=== PATIENT | male | born 1965 | race Two or more races ===

== ENCOUNTER 2020-04-26 12:15 | Outpatient (REF) | payer MEDICAID, SELFPAY ==
--- NOTE | 2020-04-26 12:23 | XR_ITS ---
EXAMINATION: XR HIP, RIGHT CLINICAL INFORMATION: Pain right hip. COMPARISON: None TECHNIQUE: Two views of the right hip. FINDINGS: There is loss of right hip joint space with lateral acetabular periarticular spurring. No visible fracture, dislocation or bony erosive changes. There is soft tissue calcification adjacent to lateral acetabulum. IMPRESSION: Soft tissue calcification adjacent to lateral acetabulum with mild lateral acetabular spurring. No visible acute fracture or dislocation seen.
== END 2020-04-26 12:16 | disposition home or self-care (01) ==
LOC: HO.XRAY 12:15
PROVIDERS: PCP Nurse Practitioner Family; Visit Provider Registered Nurse
DX: M25.551 Pain in right hip (principal)
CPT/HCPCS: 73502

== ENCOUNTER → 2020-05-26 14:51 | Outpatient (BNVA) | payer MEDICAID, SELFPAY | PROVIDERS: PCP Nurse Practitioner Family; Referring Provider Nurse Practitioner Family; Visit Provider Internal Medicine | DX: Z76.89 Persons encountering health services in other specified circumstances (principal) ==

== ENCOUNTER → 2020-07-08 13:34 | Outpatient (BNVA) | payer MEDICAID, SELFPAY | PROVIDERS: Visit Provider Orthopaedic Surgery | DX: S76.319A Strain of muscle, fascia and tendon of the posterior muscle group at thigh level, unspecified thigh, initial encounter (principal) | CPT/HCPCS: 99202 ==

== ENCOUNTER → 2020-07-19 15:15 | Outpatient (BNVA) | payer MEDICAID, SELFPAY | PROVIDERS: PCP Nurse Practitioner Family; Visit Provider Internal Medicine Gastroenterology | DX: Z76.89 Persons encountering health services in other specified circumstances (principal) ==

== ENCOUNTER 2020-08-02 12:33 | Outpatient (REF) | payer MEDICAID, SELFPAY | END 2020-08-02 12:34 | disposition home or self-care (01) | LOC: HO.LAB 12:33 | PROVIDERS: Visit Provider Internal Medicine | DX: Z20.822 Contact with and (suspected) exposure to COVID-19 (principal) | CPT/HCPCS: 36415; C9803; U0003 ==

== ENCOUNTER 2020-08-19 08:23 | Outpatient (REF) | payer MEDICAID, SELFPAY ==
--- NOTE | ~2020-08-19 | US_ITS ---
EXAMINATION: US COMPLETE ABDOMEN WITH LIVER ELASTOGRAPHY CLINICAL INFORMATION: K75.81 - Nonalcoholic steatohepatitis (SALGUERO) COMPARISON: Ultrasound abdomen 05/19/2019 TECHNIQUE: Real-time imaging of the abdominal viscera. Noninvasive ultrasound liver fibrosis assessment is performed using Hyacinth ElastPQ point quantification shear wave elastography (pSWE) with a C5-2 MHz transducer. Multiple elastography samples are obtained. FINDINGS: PANCREAS: The visualized pancreas is normal in size and contour and echogenicity. There is no pancreatic ductal distention. The mid and distal pancreatic body and tail are partly obscured by bowel gas and not completely imaged. ABDOMINAL AORTA: The visualized abdominal aorta is unremarkable. Mid aorta is obscured by bowel gas and not completely imaged. INFERIOR VENA CAVA: Visualized portions are normal. LIVER: The liver is normal in size and smooth in contour. There is increased hepatic parenchymal echogenicity consistent with hepatic steatosis. There is no intrahepatic ductal dilatation. Again, there is a hypoechoic lesion dome liver between left and right lobe under 2 cm, similar to prior ultrasound and also noted on prior CT studies. The right lobe measures 16.4 cm in length. The left lobe measures 13.6 cm in length. Portal flow is towards the liver (hepatopetal). Shear wave liver elastography median stiffness is 2.38 m/s (reference: normal median stiffness is 1.3 m/s or less). IQR/median stiffness to assess sampling precision is 0.33 (reference: good quality data set is IQR/median stiffness of 0.15 or less). GALLBLADDER: Normal. The gallbladder is physiologically distended without evidence of stones, sludge, polyps, wall thickening or pericholecystic fluid. COMMON BILE DUCT: Normal in caliber measuring 0.4 cm in diameter. RIGHT KIDNEY: Normal. No hydronephrosis. No renal calculi. The kidney measures 13.1 cm in maximum dimension. There is small upper pole cyst under 1 cm. LEFT KIDNEY: Normal. No hydronephrosis. No renal calculi or focal parenchymal lesions. The kidney measures 11.1 cm in maximum dimension. SPLEEN: Normal. The spleen measures 10.2 cm in maximum dimension. FREE FLUID: None. US/US abdomen comp w elastography IMPRESSION: 1. Hepatic steatosis. Chronic hypoechoic lesion dome between left and right lobe. 2. Liver elastography: Although measurements appear consistent with compensated advanced chronic liver disease, there is statistical variability of the sampling which decreases accuracy. 3. No cholelithiasis or ductal dilatation. REFERENCE: Society of Radiologists in Ultrasound Liver Stiffness Thresholds (2020): LIVER STIFFNESS THRESHOLDS: *Liver Stiffness equal or less than 1.3 m/s: High probability of being normal. *Liver Stiffness less than 1.7 m/s: In the absence of other known clinical signs, rules out compensated advanced chronic liver disease. *Liver Stiffness 1.7-2.1 m/s: Suggestive of compensated advanced chronic liver disease but need further test for confirmation. *Liver Stiffness over 2.1 m/s: Rules in compensated advanced chronic liver disease. *Liver Stiffness over 2.4 m/s: Suggestive of clinically significant portal hypertension. QUALITY OF DATA SET: *IQR/Median value equal or less than 0.15 implies a quality data set. *IQR/Median value over 0.15 implies a poor quality data set. SIGNIFICANT CHANGE FROM PRIOR EXAM: Significant change if liver stiffness measurement is 10% or greater from prior exam. OTHER CONSIDERATIONS: The stage of liver fibrosis may be overestimated in the setting of acute hepatitis, liver inflammation, elevated liver function tests, hepatic vascular congestion, obstructive cholestasis, non-fasting state, and infiltrative diseases such as amyloidosis and lymphoma. In some patients with NAFLD, the liver stiffness thresholds for compensated advanced chronic liver disease may be lower. In causes other than viral hepatitis and NAFLD, liver stiffness thresholds are not well established.
== END 2020-08-19 08:24 | disposition home or self-care (01) ==
LOC: HO.US 08:23
PROVIDERS: Visit Provider Internal Medicine Gastroenterology
DX: R10.11 Right upper quadrant pain (principal); K75.81 Nonalcoholic steatohepatitis (NASH); R68.81 Early satiety
CPT/HCPCS: 76705; 76981

== ENCOUNTER → 2020-09-06 13:22 | Outpatient (BNVA) | payer MEDICAID, SELFPAY | PROVIDERS: PCP Nurse Practitioner Family; Visit Provider Internal Medicine Gastroenterology ==

== ENCOUNTER → 2020-10-05 10:01 | Outpatient (BNVA) | payer MEDICAID, SELFPAY | PROVIDERS: PCP Nurse Practitioner Family; Visit Provider Internal Medicine ==

== ENCOUNTER → 2020-10-26 14:41 | Outpatient (BNVA) | payer MEDICAID, SELFPAY | PROVIDERS: PCP Nurse Practitioner Family; Visit Provider Internal Medicine Gastroenterology ==

== ENCOUNTER → 2021-01-21 10:32 | Outpatient (BNVA) | payer MEDICAID, SELFPAY | PROVIDERS: Visit Provider Internal Medicine Gastroenterology ==

== ENCOUNTER → 2021-02-01 10:42 | Outpatient (BNVA) | payer MEDICAID, SELFPAY | PROVIDERS: Visit Provider Internal Medicine Gastroenterology | DX: R10.11 Right upper quadrant pain (principal); R68.81 Early satiety | CPT/HCPCS: 99212 ==

== ENCOUNTER → 2021-02-11 08:19 | Outpatient (REF) | payer MEDICAID, SELFPAY ==
--- NOTE | ~2021-02-11 | NM_ITS ---
EXAMINATION: RADIONUCLIDE SOLID FOOD GASTRIC EMPTYING 4-HOUR STUDY CLINICAL INFORMATION: Early satiety. COMPARISON: No previous gastric emptying study is available for comparison. TECHNIQUE: A standard meal consisting of 4 oz of Egg Beaters brand tagged with 900 microcuries Tc-99m Sulfur Colloid, 8 oz water and 2 slices of toast with jelly was administered orally to the patient. Images were obtained using a dual head gamma camera in the anterior and posterior projections over of the stomach immediately post ingestion and at hourly intervals up to 3 hours post ingestion. Images were not obtained at 4 hours due to the minimal retention at 3 hours. The anterior and posterior counts at each time interval were averaged using the geometric mean and expressed as percentage of the immediate post ingestion counts. FINDINGS: There is good visualization of activity in the stomach immediately post ingestion. As the study progresses, there is good clearance of activity from the stomach and visualization of progressively increasing small bowel activity. By the end of the study, there is almost no retention noted in the stomach. Retention in the stomach at each time interval was: 1 hour 44% (normal 37%-90%) 2 hours 18% (normal 30%-60%) 3 hours 6% 4 hours (Not Obtained) (normal 0%-10%) NM/NM gastric emptying study IMPRESSION: Normal solid food gastric emptying study.
== END ==
LOC: HO.NUCMED 08:19
PROVIDERS: Visit Provider Internal Medicine Gastroenterology
DX: R10.11 Right upper quadrant pain (principal); K75.81 Nonalcoholic steatohepatitis (NASH); R68.81 Early satiety
CPT/HCPCS: 78264; A9541

== ENCOUNTER → 2021-03-16 14:59 | Outpatient (BNVA) | payer MEDICAID, SELFPAY | PROVIDERS: Visit Provider Internal Medicine | DX: I25.10 Atherosclerotic heart disease of native coronary artery without angina pectoris (principal); I10 Essential (primary) hypertension; E11.9 Type 2 diabetes mellitus without complications; E78.5 Hyperlipidemia, unspecified; Z72.0 Tobacco use; Z88.8 Allergy status to other drugs, medicaments and biological substances; Z79.4 Long term (current) use of insulin; Z79.899 Other long term (current) drug therapy | CPT/HCPCS: 93005; 99212 ==

== ENCOUNTER 2021-03-17 08:40 | Day surgery (SDC) | payer MEDICAID, SELFPAY ==
--- NOTE | 2021-03-16 10:05 | HO.ANESPROP2 ---
Documented by User: Maame Ames NP 03/29/21 11:06 HPI - Anesthesia Eval Consult details Narrative: 55yo M for Upper Endoscopy and Colonoscopy Stable at routine cardiac visit 09/2020. (W/U for CP 11/2019) [facility] Active Problems Active Problems: All Active Problems (Updated 11/01/20 @ 12:01 by Azul Stubbs RN) Palpitations (Acute) Early satiety (Acute) Nonalcoholic steatohepatitis (SALGUERO) (Acute) RUQ pain (Acute) Atherosclerotic cardiovascular disease (Acute) Past Medical History Medical History Arthritis Atherosclerotic cardiovascular disease Depression Essential hypertension Fatty liver Fibromyalgia Hyperlipidemia, unspecified SALGUERO (nonalcoholic steatohepatitis) Palpitations Type 2 diabetes mellitus with unspecified complications Family History Family History Father Diabetes Mother No problems noted. Surgical History Surgical History History of ankle surgery History of colonoscopy Hx of endoscopy Social History Social History (Updated 03/16/21 @ 15:12 by GUNNER Narayan) Household Members: Spouse Alcohol intake: current Alcohol intake frequency: a few times a month Patient Tobacco Use Status: Current someday Tobacco user Current occupational status: employed Current occupation: [employer] Meds Allergies Allergy/AdvReac Type Severity Reaction Status Date / Time atorvastatin [ATORVASTATIN] AdvReac Unknown HIGH LIVER Verified 03/17/21 09:07 ENZYMES, high liver count Home Medications Medication Instructions Recorded Confirmed Last Taken Type amlodipine 5 mg tablet (Norvasc) 5 mg PO DAILY 05/26/20 03/16/21 Unknown History cholecalciferol (vitamin D3) 50 50 mcg PO DAILY 05/26/20 03/16/21 Unknown History mcg (2,000 unit) capsule insulin degludec 100 unit/mL (3 30 unit SUBCUT DAILY ml 05/26/20 03/16/21 Unknown History mL) subcutaneous pen (Tresiba FlexTouch U-100 insulin) insulin lispro 100 unit/mL 20 unit SUBCUT TID ml 05/26/20 03/16/21 Unknown History subcutaneous pen (Humalog KwikPen (U-100) Insulin) Exam Exam Date and Time: March 16, 2021 1005 Narrative Narrative: Echocardiogram 2020?with normal LVEF, 55-60%; mildly elevated aortic valve gradients but no significant stenosis.? In the?exercise stress test 2019,?he was able to perform up to 7.8 Mets on the Lamont protocol without any EKG evidence of ischemia.? Echocardiographic portion showed lack of systolic thickening of basal inferior septal and basal inferior mesa in some views.? Coronary CTA 2020The LAD had scattered calcifications.? At, the proximal LAD, mild mixed plaque.? Just after the D2 takeoff there is mixed plaque in LAD causing 50% narrowing.? Circumflex had scattered calcifications.? Midportion had prominent calcification.? ? Cannot exclude high-grade stenosis in that area. Vessel relatively small.? Right coronary artery had mild calcification.? Total coronary artery calcium score 186. Holter monitor?essentially unremarkable. RADHA?without any arrhythmias. ? Assessment and Plan Assessment Anesthesia Assessment: Chart Reviewed Documented by User: Jason Schulte MD 03/29/21 17:00 [facility] Past Medical History Medical History Arthritis Atherosclerotic cardiovascular disease Depression Essential hypertension Fatty liver Fibromyalgia Hyperlipidemia, unspecified SALGUERO (nonalcoholic steatohepatitis) Palpitations Type 2 diabetes mellitus with unspecified complications Family History Family History Father Diabetes Mother No problems noted. Family history of problems with anesthesia: No Surgical History Surgical History History of ankle surgery History of colonoscopy Hx of endoscopy History of Problems with Anesthesia: No Social History Social History (Updated 03/16/21 @ 15:12 by GUNNER Narayan) Household Members: Spouse Alcohol intake: current Alcohol intake frequency: a few times a month Patient Tobacco Use Status: Current someday Tobacco user Current occupational status: employed Current occupation: [employer] Meds Allergies Allergy/AdvReac Type Severity Reaction Status Date / Time atorvastatin [ATORVASTATIN] AdvReac Unknown HIGH LIVER Verified 03/17/21 09:07 ENZYMES, high liver count Home Medications Medication Instructions Recorded Confirmed Last Taken Type amlodipine 5 mg tablet (Norvasc) 5 mg PO DAILY 05/26/20 03/16/21 Unknown History cholecalciferol (vitamin D3) 50 50 mcg PO DAILY 05/26/20 03/16/21 Unknown History mcg (2,000 unit) capsule insulin degludec 100 unit/mL (3 30 unit SUBCUT DAILY ml 05/26/20 03/16/21 Unknown History mL) subcutaneous pen (Tresiba FlexTouch U-100 insulin) insulin lispro 100 unit/mL 20 unit SUBCUT TID ml 05/26/20 03/16/21 Unknown History subcutaneous pen (Humalog KwikPen (U-100) Insulin) Assessment and Plan Assessment Anesthesia Assessment: Anesthesia Plan Discussed Final Anesthetic Review Family History of Problems with Anesthesia: No History of Problems with Anesthesia: No NPO: Yes ASA Class: III Final Preanesthetic Review: No Changes in Pt Med Stat, Meds/Allgs Chart Reviewed, Consent Obtained/Reviewed and Anes Risks/Benef Reviewed Patient Risk: Intermediate Procedure Risk: Low Anesthetic Plan Anesthetic Plan: MAC: Disposition: Standard PACU
--- NOTE | 2021-03-17 09:19 | MHC.SHP ---
Pre-Procedural Eval Section A Date of Service: 03/17/21 Section B Chief Complaint: Rectal Bleeding Details of Present Illness: hx of esophagitis, to check for healing and r/o barretts Relevant Family History (Specify if Yes): No Relevant Social History: None Present Medications: see Short Stay Collaborative assessment Medical History: Significant History (Arthritis Atherosclerotic cardiovascular disease Depression Essential hypertension Fatty liver Fibromyalgia Hyperlipidemia, unspecified SALGUERO (nonalcoholic steatohepatitis) Palpitations Type 2 diabetes mellitus with unspecified complications) History of Previous Operations: Relevant previous surgery/procedure and date(s) Allergies: Allergies Allergy/AdvReac Type Severity Reaction Status Date / Time atorvastatin [ATORVASTATIN] AdvReac Unknown HIGH LIVER Verified 03/17/21 09:07 ENZYMES, high liver count Review of Systems Sugical H&P ROS: Negative: Constitution, Cardiovascular, Respiratory, Neurological, Psychiatric, Hem-Onc, Allergic/Immunologic, Gastrointestinal, Genitourinary, Musculoskeletal, Integumentary, Endocrine and Eyes/Ears/Nose/Throat Exam Surgical H&P Exam: Normal: HEENT, Normal: Heart, Normal: Lungs, Normal: Extremities, Normal: Abdomen, Normal: Skin and Normal: Neurological Plan Diagnosis/Plan: Unchanged I have reviewed the history and physical and performed a pertinent physical examination on my patient. No changes have occurred unless specified. EGD and colonoscopy
[2021-03-17 09:32] VITALS: BP 157/90; PULSE 99; RESP 18; TEMP 36.2; O2SAT 98; BMI 29.2
[2021-03-17 09:32] LABS: Glucose, Whole Blood 215 mg/dL (60-115)
[2021-03-17] MEDS: Lactated Ringers 1,000 ML 100 ML IVCONT (09:46)
--- NOTE | 2021-03-17 10:20 | P.BOP_ITS ---
Brief Operative Note Date of Service: 03/17/21 Pre-op diagnosis: hx of esophagitis, rectal bleeding Post-op diagnosis: same Procedure: see op note Surgeon: Harry Garcia MD Anesthesia: MAC Was an Informatics Manager used for this Procedure?: No Estimated blood loss (mL): 15 Condition: stable Disposition: PACU
--- NOTE | 2021-03-17 10:20 | P.OP_ITS ---
Operative Note Operative Note Date of Service: 03/17/21 Narrative: Operative Information Procedure Description: EGD, Colonoscopy FLEXIBLE TRANSORAL UPPER GASTROINTESTINAL ENDOSCOPY AND COLONOSCOPY PROCEDURE NOTE UPPER ENDOSCOPY Consent: Indications for the procedure and potential complications of bleeding, perforation, reaction to medications and missed diagnosis were discussed with the patient and informed consent was obtained. Instrument: Olympus GIF H 190 J mid size upper endoscope Monitoring: Vital signs and clinical assessment, continuous EKG monitoring, Pulse oximetry, Carbon Dioxide monitoring and blood pressure monitoring were done throughout the procedure. Procedure: The patient was placed in the left lateral decubitis position and pre-procedure medications were administered and a bite block was placed. The endoscope was inserted into the mouth and advanced under direct vision to the third part of duodenum. A careful inspection was made as the upper endoscope was withdrawn including a retroflexed examination of the proximal stomach; Findings and interventions are described below. Findings: Larynx:normal Esophagus: GE junction at 40 cm, diaphragm hiatus at 40 cm, LA grade D erosive esophagitis, nodular area noted at distal esophagus about 7-8 mm, removed with cold snare and 2 clips applied for hemostasis. Stomach: PAtchy erythema. Biopsies were obtained. Grade 2 flap valve on retroflexed examination of the cardia. Duodenum: Normal bulb and descending duodenum, Intervention: Biopsies as noted above, cold snare After the colonoscopy below, the EGD was repeated, there was still bleeding from the snare site so hemospray used with cessation of bleeding. COLONOSCOPY Instrument: Olympus variable stiffness pediatric scope 190L Colonoscopy Monitoring: Vital signs and clinical assessment, continuous EKG monitoring, Pulse oximetry, Carbon Dioxide monitoring and blood pressure monitoring were done throughout the procedure. Colon withdrawal time was 6 minutes. Procedure: The patient was placed in the left lateral decubitis position and pre-procedure medications were administered. After a digital rectal examination of the ano-rectum, the video colonoscope was inserted into the rectum and advanced through the colon to the cecum/TI. The colonoscope was slowly withdrawn in a retrograde panoramic fashion and the colon mucosa was carefully examined including a retroflexed view of the rectum. Findings and interventions are described below. Procedure Difficulty: easy Findings: Terminal Ileum-normal Cecum:normal Ascending Colon: normal Transverse Colon -normal Descending Colon: 6-8 mm sessile polyp removed with forceps Sigmoid Colon: normal Rectum: Retroflexion with moderate sized inflammed internal hemorrhoids, grade I Anorectum - normal Colon preparation: [place] Bowel Preparation Scale Right colon; 2 Transverse colon: 2 Left colon; 2 (0 = Unprepared colon segment with mucosa not seen due to solid stool that cannot be cleared. 1 = Portion of mucosa of the colon segment seen, but other areas of the colon segment not well seen due to staining, residual stool and/or opaque liquid. 2 = Minor amount of residual staining, small fragments of stool and/or opaque liquid, but mucosa of colon segment seen well. 3 = Entire mucosa of colon segment seen well with no residual staining, small fragments of stool or opaque liquid) Impression and Post Procedure Diagnosis: Endoscopy Findings: erosive esophagitis nodular lesion distal esophagus gastritis Colonoscopy Findings: polyp internal hemorrhoids Plan: Await Pathology results Repeat Colonoscopy in 5-7 years if adenoma, 10 yrs if hyperplastic or earlier if clinically indicated High fiber diet leaflet avoid straining at stool, epsom salts and sitz bath, anusol supps or cream check compliance with PPI may need repeat EGD in 3-6 months to assess for healing Above findings were reviewed with the patient and relevant handouts were provided if indicated.
[2021-03-17 10:58] VITALS: BP 101/65; PULSE 89; RESP 18; TEMP 36.9; O2SAT 98
[2021-03-17 11:13] VITALS: BP 112/79; PULSE 89; RESP 16; O2SAT 97
[2021-03-17 11:16] VITALS: BP 150/102; PULSE 75; RESP 18; O2SAT 97
[2021-03-17 11:28] VITALS: BP 144/77; PULSE 76; RESP 16; O2SAT 97
[2021-03-17 11:43] VITALS: BP 159/91; PULSE 77; RESP 16; TEMP 36.4; O2SAT 97
== END 2021-03-17 12:40 ==
LOC: HO.SSS 08:41
PROVIDERS: Visit Provider Internal Medicine Gastroenterology
PROC: (CPT 45380; principal; 2021-03-17 10:20)
DX: K62.5 Hemorrhage of anus and rectum (principal); D12.4 Benign neoplasm of descending colon; K64.0 First degree hemorrhoids; K29.50 Unspecified chronic gastritis without bleeding; D13.0 Benign neoplasm of esophagus; K20.80 Other esophagitis without bleeding; K44.9 Diaphragmatic hernia without obstruction or gangrene; K75.81 Nonalcoholic steatohepatitis (NASH); K76.0 Fatty (change of) liver, not elsewhere classified; I10 Essential (primary) hypertension; E11.9 Type 2 diabetes mellitus without complications; Z79.4 Long term (current) use of insulin; Z79.899 Other long term (current) drug therapy; Z79.82 Long term (current) use of aspirin; Z88.8 Allergy status to other drugs, medicaments and biological substances; F17.200 Nicotine dependence, unspecified, uncomplicated
CPT/HCPCS: 45380; 43251; 43239; 82947; 88305; 88342

== ENCOUNTER 2021-04-05 12:41 | Outpatient (REF) | payer MEDICAID, SELFPAY ==
[2021-04-05 13:13] LABS: Basophils Percent Auto 0.3 % (0-2); Eosinophils Absolute Auto 0.1 X10*3/uL (0.0-0.4); Eosinophils Percent Auto 0.8 % (0-4); Hematocrit 40.4 % (42-52); Hemoglobin 12.8 g/dl (14.0-18.0); Imm Gran Abs Auto 0.04 X10*3/uL (0.00-0.03); Imm Gran Pct Auto 0.3 % (0.0-0.4); Lymphocytes Absolute Auto 1.5 X10*3/uL (1.2-4.9); MANUAL DIFF FLAG NO; Mean Corpuscular HGB Conc 31.7 g/dl (31.0-36.0); Mean Corpuscular Hemoglobin 27.4 pg (27.0-33.0); Mean Corpuscular Volume 86.3 fL (80-98); Mean Platelet Volume 9.6 fL (9.4-12.4); Monocytes Absolute Auto 0.9 X10*3/uL (0.1-1.2); Monocytes Percent Auto 6.9 % (2-11); Neutrophils Absolute Auto 10.7 X10*3/uL (2.0-8.3); Neutrophils Percent Auto 80.7 % (45-73); Platelet Count 294 X10*3/uL (160-400); Red Blood Count 4.68 X10*6/uL (4.60-5.80); White Blood Count 13.2 X10*3/uL (4.8-10.8)
[2021-04-05 13:21] LABS: INTERNATIONAL NORM RATIO 1.4 (0.9-1.1); Prothrombin Time 15.5 SEC (9.9-13.0)
[2021-04-05 13:57] LABS: Alanine Aminotransferase 24 U/L (0-40); Albumin Level 4.2 g/dL (3.5-5.0); Alkaline Phosphatase 203 U/L (39-117); Anion Gap 15 (12-20); Aspartate Amino Transferase 45 U/L (5-37); Bilirubin Total 1.5 mg/dL (0.0-1.0); Blood Urea Nitrogen 14 mg/dL (9-16); Calcium 9.9 mg/dL (8.4-10.2); Carbon Dioxide 23 mmol/L (22-29); Chloride 101 mmol/L (96-108); Estimated Glomerular Filt Rate > 60; Glucose Random 322 mg/dL (60-115); Potassium 4.3 mmol/L (3.3-5.1); Sodium 135 mmol/L (135-145); Total Protein 8.1 g/dL (6.5-8.0)
[2021-04-05 14:17] LABS: Ferritin 426 ng/mL (20-250)
[2021-04-05 14:46] LABS: Appearance Urine CLEAR; Color Urine YELLOW; Glucose Urine UA >=1000 MG/DL (NEG); Leukocyte Esterase Urine NEG (NEG); Nitrite Urine NEG (NEG); Specific Gravity - Urine <= 1.005 (1.005-1.025); Urine Blood NEG (NEG); Urine Ketones NEG (NEG); Urine Protein NEG (NEG-TRACE)
[2021-04-05 14:58] LABS: Bacteria Urine TRACE /LPF; RBC Urine 0-2 /HPF (0); Squamous Epithelial Cell Urine TRACE /LPF
== END 2021-04-05 12:42 | disposition home or self-care (01) ==
LOC: HO.LAB 12:41
PROVIDERS: PCP Nurse Practitioner Family; Visit Provider Internal Medicine Gastroenterology
DX: R10.11 Right upper quadrant pain (principal); K75.81 Nonalcoholic steatohepatitis (NASH)
CPT/HCPCS: 36415; 80053; 81001; 81003; 82728; 85025; 85610; 87086

== ENCOUNTER 2021-04-06 11:46 | Outpatient (REF) | payer MEDICAID, SELFPAY ==
[2021-04-06 13:05] LABS: CDiff Gene PCR NEGATIVE (Negative)
== END 2021-04-06 11:47 | disposition home or self-care (01) ==
LOC: HO.LNP 11:46
PROVIDERS: Visit Provider Internal Medicine Gastroenterology
DX: R10.11 Right upper quadrant pain (principal); K75.81 Nonalcoholic steatohepatitis (NASH)
CPT/HCPCS: 87045; 87046; 87493

== ENCOUNTER 2021-05-06 07:46 | Outpatient (REF) | payer MEDICAID, SELFPAY ==
--- NOTE | ~2021-05-06 | US_ITS ---
EXAMINATION: US COMPLETE ABDOMEN WITH LIVER ELASTOGRAPHY CLINICAL INFORMATION: SALGUERO COMPARISON: Previous exam most recent August [address] of the abdomen and pelvis November 2019 TECHNIQUE: Real-time imaging of the abdominal viscera. Noninvasive ultrasound liver fibrosis assessment is performed using Hyacinth ElastPQ point quantification shear wave elastography (pSWE) with a C5-2 MHz transducer. Multiple elastography samples are obtained. FINDINGS: PANCREAS: Not visualized due to bowel gas ABDOMINAL AORTA: The proximal, middle, and distal aortic segments are normal in caliber. INFERIOR VENA CAVA: Visualized portions are normal. LIVER: Liver echotexture is slightly increased. The liver is normal in size and contour. There is a 2.1 x 1.9 x 1.3 cm hypoechoic lesion in the right lobe of the liver. This is increased in size from previous exams, for example measuring 1.2 x 1.1 x 1.2 cm on August 2020 ultrasound. No intrahepatic biliary duct dilatation. The right lobe measures 16 cm in length. The left lobe measures 12 cm in length. Portal flow is normal/hepatopedal Shear wave liver elastography median stiffness is 1.9 m/s (reference: normal median stiffness is 1.3 m/s or less). IQR/median stiffness to assess sampling precision is 0.14 (reference: good quality data set is IQR/median stiffness of 0.15 or less). GALLBLADDER: Gallbladder is normal in size. There is echogenic debris seen in the gallbladder. No gallstones are seen. The gallbladder wall appears slightly thickened measuring 0.4 cm. COMMON BILE DUCT: Normal in caliber measuring 0.2 cm in diameter. RIGHT KIDNEY: There is a 8 x 9 mm cyst in the upper pole.. No hydronephrosis. No renal calculi . The kidney measures 12 cm in maximum dimension. LEFT KIDNEY: Normal. No hydronephrosis. No renal calculi or focal parenchymal lesions. The kidney measures 12 cm in maximum dimension. SPLEEN: Normal. The spleen measures 11 cm in maximum dimension. FREE FLUID: None. US/US abdomen comp w elastography IMPRESSION: 1. Impression: Echogenic liver suggestive of fatty infiltration. 2.1 x 1.9 x 1.3 cm hypoechoic lesion in the right lobe of the liver. This is increased in size from previous exams. Further characterization with liver MRI should be considered. Slightly thickened gallbladder wall. No gallstone seen. Small right renal cyst. Nonvisualization of the pancreas. 2. Liver elastography: Adequate liver sampling. Elevated liver stiffness suggestive of compensated advanced chronic liver disease but need further test for confirmation. REFERENCE: Society of Radiologists in Ultrasound Liver Stiffness Thresholds (2020): LIVER STIFFNESS THRESHOLDS: *Liver Stiffness equal or less than 1.3 m/s: High probability of being normal. *Liver Stiffness less than 1.7 m/s: In the absence of other known clinical signs, rules out compensated advanced chronic liver disease. *Liver Stiffness 1.7-2.1 m/s: *Liver Stiffness over 2.1 m/s: Rules in compensated advanced chronic liver disease. *Liver Stiffness over 2.4 m/s: Suggestive of clinically significant portal hypertension. QUALITY OF DATA SET: *IQR/Median value equal or less than 0.15 implies a quality data set. *IQR/Median value over 0.15 implies a poor quality data set. SIGNIFICANT CHANGE FROM PRIOR EXAM: Significant change if liver stiffness measurement is 10% or greater from prior exam. OTHER CONSIDERATIONS: The stage of liver fibrosis may be overestimated in the setting of acute hepatitis, liver inflammation, elevated liver function tests, hepatic vascular congestion, obstructive cholestasis, non-fasting state, and infiltrative diseases such as amyloidosis and lymphoma. In some patients with NAFLD, the liver stiffness thresholds for compensated advanced chronic liver disease may be lower. In causes other than viral hepatitis and NAFLD, liver stiffness thresholds are not well established.
[2021-05-06 09:12] LABS: Anion Gap 17 (12-20); Blood Urea Nitrogen 8 mg/dL (9-16); Calcium 9.7 mg/dL (8.4-10.2); Carbon Dioxide 25 mmol/L (22-29); Chloride 102 mmol/L (96-108); Estimated Glomerular Filt Rate > 60; Glucose Random 214 mg/dL (60-115); Potassium 3.9 mmol/L (3.3-5.1); Sodium 140 mmol/L (135-145)
[2021-05-06 10:32] LABS: Creatinine Urine 238.12 mg/dL; Protein/Creatinine Ratio, Ur 0.21 (<0.2); Total Protein Urine Random 51 mg/dL (<12)
== END 2021-05-06 07:47 | disposition home or self-care (01) ==
LOC: HO.US 07:46
PROVIDERS: Absent Provider Internal Medicine Hypertension Specialist; PCP Nurse Practitioner Family; Visit Provider Internal Medicine Gastroenterology
DX: R10.11 Right upper quadrant pain (principal); K75.81 Nonalcoholic steatohepatitis (NASH); I10 Essential (primary) hypertension
CPT/HCPCS: 36415; 76705; 76981; 80048; 84156

== ENCOUNTER 2021-05-26 13:15 | Emergency (ER) | payer MEDICAID, SELFPAY ==
--- NOTE | ~2021-05-26 | US_ITS ---
EXAMINATION: US ABDOMEN LIMITED CLINICAL INFORMATION: Right upper quadrant pain. COMPARISON: Abdominal ultrasound dated from 05/06/2021. TECHNIQUE: Real-time imaging of the gallbladder. FINDINGS: Gallbladder sludge mild gallbladder wall thickening measuring up to 0.4 cm. Negative Chatman's sign. No pericholecystic free fluid. The common bile duct measures 0.3 cm. US/US abdomen limited IMPRESSION: Targeted sonographic evaluation of the gallbladder. Please refer to a recent ultrasound from 05/06/2021 for visualization of indeterminate liver lesions. There is borderline gallbladder wall thickening without significant change. This is indeterminate in the absence of cholelithiasis or pericholecystic inflammatory changes and could be related with hepatocellular disease. If clinical suspicious for acute cholecystitis persists, consider further evaluation with a hepatobiliary nuclear medicine study.
[2021-05-26 14:18] VITALS: BP 124/72; PULSE 79; RESP 18; TEMP 36.7; O2SAT 99; BMI 29.0
[2021-05-26 16:22] LABS: MANUAL DIFF FLAG NO
[2021-05-26 16:24] LABS: Basophils Percent Auto 0.4 % (0-2); Eosinophils Absolute Auto 0.1 X10*3/uL (0.0-0.4); Eosinophils Percent Auto 0.7 % (0-4); Hematocrit 40.1 % (42.0-52.0); Hemoglobin 12.8 g/dl (14.0-18.0); Imm Gran Abs Auto 0.04 X10*3/uL (0.00-0.03); Imm Gran Pct Auto 0.4 % (0.0-0.4); Lymphocytes Absolute Auto 1.6 X10*3/uL (1.2-4.9); Mean Corpuscular HGB Conc 31.9 g/dl (31.0-36.0); Mean Corpuscular Hemoglobin 26.9 pg (27.0-33.0); Mean Corpuscular Volume 84.4 fL (80.0-98.0); Mean Platelet Volume 9.4 fL (9.4-12.4); Monocytes Percent Auto 8.7 % (2-11); Neutrophils Absolute Auto 8.4 x10*3/uL (2.0-8.3); Neutrophils Percent Auto 75.8 % (45-73); Platelet Count 229 X10*3/uL (160-400); Red Blood Count 4.75 X10*6/uL (4.60-5.80); Red Cell Distribution Width 12.5 % (11.0-16.0); White Blood Count 11.1 X10*3/uL (4.8-10.8)
[2021-05-26 16:27] LABS: Appearance Urine CLEAR; Color Urine YELLOW; Glucose Urine UA >=1000 MG/DL (NEG); Leukocyte Esterase Urine NEG (NEG); Nitrite Urine NEG (NEG); Specific Gravity - Urine <= 1.005 (1.005-1.025); Urine Blood NEG (NEG); Urine Ketones NEG (NEG); Urine Protein NEG (NEG-TRACE)
[2021-05-26 16:37] LABS: Bacteria Urine TRACE /LPF; RBC Urine 0 /HPF (0)
[2021-05-26 16:42] LABS: Alanine Aminotransferase 23 U/L (0-40); Albumin Level 4.1 g/dL (3.5-5.0); Alkaline Phosphatase 150 U/L (39-117); Anion Gap 14 (12-20); Aspartate Amino Transferase 27 U/L (5-37); Bilirubin Total 1.5 mg/dL (0.0-1.0); Blood Urea Nitrogen 13 mg/dL (9-16); Calcium 9.6 mg/dL (8.4-10.2); Carbon Dioxide 25 mmol/L (22-29); Chloride 98 mmol/L (96-108); Creatinine Clr Calc Pharmacy 85.4; Estimated Glomerular Filt Rate > 60; Glucose Random 451 mg/dL (60-115); Potassium 4.6 mmol/L (3.3-5.1); Sodium 132 mmol/L (135-145); Total Protein 7.5 g/dL (6.5-8.0)
--- NOTE | 2021-05-26 20:35 | ED_ITS ---
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 States the pain is constant and radiates to his back. No nausea, vomiting or diarrhea. 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 Patient states he drinks 6 beers a day, no belly surgeries. Has not had any fevers. MD elicited complaint: abdominal pain Related Data Home Medications Medication Instructions Recorded Confirmed amlodipine 5 mg tablet (Norvasc) 5 mg PO DAILY 05/26/20 03/16/21 cholecalciferol (vitamin D3) 50 50 mcg PO DAILY 05/26/20 03/16/21 mcg (2,000 unit) capsule insulin degludec 100 unit/mL (3 30 unit SUBCUT DAILY ml 05/26/20 03/16/21 mL) subcutaneous pen (Tresiba FlexTouch U-100 insulin) insulin lispro 100 unit/mL 20 unit SUBCUT TID ml 05/26/20 03/16/21 subcutaneous pen (Humalog KwikPen (U-100) Insulin) Previous Rx's Medication Instructions Recorded aspirin 81 mg tablet,delayed 81 mg PO DAILY #90 tab 10/05/20 release (Enteric Coated Aspirin) lisinopril 40 mg tablet 40 mg PO DAILY 90 Days #90 tab 12/09/20 ondansetron 4 mg disintegrating 4 mg PO Q8H PRN #30 tab 02/01/21 tablet atorvastatin 40 mg tablet (Lipitor) 40 mg PO QPM #90 tab 03/16/21 simethicone 125 mg chewable tablet 125 mg PO TID PRN #30 tab 03/16/21 (Gas Relief (simethicone)) pantoprazole 40 mg tablet,delayed 40 mg PO BID #90 tab 03/17/21 release Allergies Allergy/AdvReac Type Severity Reaction Status Date / Time atorvastatin [ATORVASTATIN] AdvReac Unknown HIGH LIVER Verified 05/26/21 14:18 ENZYMES, high liver count Review of Systems Constitutional: Denies body ache(s), Denies chills, Denies fatigue, Denies fever(s), Denies headache(s), Denies malaise and Denies weakness Eyes: Denies diplopia Denies vertigo, Denies dizziness, Denies otalgia, Denies headache(s), Denies mouth pain, Denies post nasal drip, Denies sinus pain, Denies sinus pressure, Denies sore throat and Denies throat swelling Cardiovascular: Denies chest pain, Denies syncope, Denies leg edema, Denies lightheadedness, Denies Loss of Consciousness, Denies palpitations and Denies dyspnea Respiratory: Denies chest congestion, Denies cough and Denies dyspnea Gastrointestinal: Reports abdominal pain, Denies hematochezia, Denies constipation, Denies diarrhea and Denies vomiting Comments: Tender right chest wall Denies confusion, Denies vertigo, Denies dizziness, Denies syncope, Denies headache(s) and Denies weakness Psychiatric: Denies anxiety, Denies confusion and Denies depression Endocrine: Denies fatigue and Denies palpitations Allergic/Immunologic: Denies throat swelling Physical Exam Vital Signs: Vital Signs: Last Vital Signs Temp 98.1 F 05/26/21 14:18 Pulse 66 05/26/21 21:51 Resp 14 05/26/21 21:51 BP 125/76 05/26/21 21:51 Pulse Ox 99 05/26/21 21:51 Body Mass Index 29.0 Const: General: No confusion Nutritional Appearance: well nourished Orientation/consciousness: No confusion Limitations: no limitations HENMT: Head: Yes normal to inspection, Yes normocephalic and Yes atraumatic Ears: hearing grossly normal bilaterally, external ears normal, TM's normal fuad aterally and EAC's normal General nose exam: Normal external nose present Face and sinus: Yes normal facial exam and Yes sinuses nontender Mouth: Normal oral and palatal mucosa present Throat: Yes posterior oropharynx normal Eyes: Conjunctivae: conjunctivae normal Pupils: Equal, round and reactive pupils present EOM: EOMs intact bilaterally Neck: Neck: Yes full ROM, Yes no lymphadenopathy and Yes supple Resp: Effort & Inspection: normal respiratory effort and able to speak in complete sentences Auscultation: clear to auscultation bilaterally, no crackles, no rales, no rhonchi and no wheezes Cardio: Rate: regular rate Rhythm: regular rhythm Heart sounds: S1 normal heart sound present and S2 normal heart sound present GI: Inspection: Yes distended Palpation (GI): Soft to palpation, Tenderness to palpation present (GI) in the RUQ, Guarding due to palpation present (GI) in the RUQ and not rigid Percussion: Yes normal to percussion and No tympanic to percussion Auscultation: normal bowel sounds Skin: General skin exam: no rashes or lesions noted Neuro: General: No confusion Cranial nerves: Yes Equal, round and reactive pupils present Extrem: General: Yes normal to inspection and Yes full ROM Psych: Appearance: grossly normal Affect: normal affect Attitude: cooperative Thought process: Normal thought process present Course Course Course Narrative: 56-year-old male with 4 days of right upper quadrant pain. Patient states his blood sugar normally runs around 260. On exam, patient is tender and guarding in his right upper quadrant. Blood glucose originally 451, with fluids blood glucose down to 247. Patient states he has not taken insulin today. Patient has a total bili of 1.5 and an alk phos of 150. Negative urine, no urine ketones. Ultrasound shows gallbladder wall thickening that may be suspicious for acute cholecystitis and may need a HIDA scan. US/US abdomen limited IMPRESSION: ? Targeted sonographic evaluation of the gallbladder. Please refer to a recent ultrasound from 05/06/2021 for visualization of indeterminate liver lesions. ? There is borderline gallbladder wall thickening without significant change. This is indeterminate in the absence of cholelithiasis or pericholecystic inflammatory changes and could be related with hepatocellular disease. If clinical suspicious for acute cholecystitis persists, consider further evaluation with a hepatobiliary nuclear medicine study. Will discharge with follow-up to GI. MDM - Abdominal Pain Lab Data Result diagrams: 05/26/21 16:16 05/26/21 16:16 Labs: Lab Results 05/26/21 05/26/21 05/26/21 Range/Units 16:16 16:16 16:18 WBC 11.1 H (4.8-10.8) X10*3/uL RBC 4.75 (4.60-5.80) X10*6/uL Hgb 12.8 L (14.0-18.0) g/dl Hct 40.1 L (42.0-52.0) % MCV 84.4 (80.0-98.0) fL MCH 26.9 L (27.0-33.0) pg MCHC 31.9 (31.0-36.0) g/dl RDW 12.5 (11.0-16.0) % Plt Count 229 (160-400) X10*3/uL MPV 9.4 (9.4-12.4) fL Immature Gran % (Auto) 0.4 (0.0-0.4) % Neut % (Auto) 75.8 H (45-73) % Lymph % (Auto) 14.0 L (20-40) % [place] % (Auto) 8.7 (2-11) % Eos % (Auto) 0.7 (0-4) % Baso % (Auto) 0.4 (0-2) % Lymph # (Auto) 1.6 (1.2-4.9) X10*3/uL [place] # (Auto) 1.0 (0.1-1.2) X10*3/uL Eos # (Auto) 0.1 (0.0-0.4) X10*3/uL Baso # (Auto) 0.0 (0.0-0.2) X10*3/uL Abs Immat Gran (auto) 0.04 H (0.00-0.03) X10*3/uL Absolute Neuts (auto) 8.4 H (2.0-8.3) x10*3/uL Absolute Nucleated RBC 0.000 (0.0-0.012) X10*3/uL Nucleated RBC % (auto) 0.0 (0.0-0.2) /100WBC Sodium 132 L (135-145) mmol/L Potassium 4.6 (3.3-5.1) mmol/L Chloride 98 (96-108) mmol/L Carbon Dioxide 25 (22-29) mmol/L Anion Gap 14 (12-20) BUN 13 D (9-16) mg/dL Creatinine 1.00 (0.5-1.4) mg/dL Estim Creat Clear Calc 85.4 Estimated GFR > 60 POC Glucose (60-115) mg/dL Random Glucose 451 H* (60-115) mg/dL Calcium 9.6 (8.4-10.2) mg/dL Total Bilirubin 1.5 H (0.0-1.0) mg/dL AST 27 (5-37) U/L ALT 23 (0-40) U/L Alkaline Phosphatase 150 H D (39-117) U/L Total Protein 7.5 (6.5-8.0) g/dL Albumin 4.1 (3.5-5.0) g/dL Urine Color YELLOW Urine Appearance CLEAR Urine pH 6.0 (5.0-8.0) Ur Specific [place] <= 1.005 (1.005-1.025) Urine Protein NEG (NEG-TRACE) MG/DL Urine Glucose (UA) >=1000 H (NEG) MG/DL Urine Ketones NEG (NEG) MG/DL Urine Blood NEG (NEG) Urine Nitrite NEG (NEG) Ur Leukocyte Esterase NEG (NEG) Urine RBC 0 (0) /HPF Urine WBC 1-4 (0-4) /HPF Ur Squamous Epith Cells NONE /LPF Urine Bacteria TRACE /LPF 05/26/21 Range/Units 21:59 WBC (4.8-10.8) X10*3/uL RBC (4.60-5.80) X10*6/uL Hgb (14.0-18.0) g/dl Hct (42.0-52.0) % MCV (80.0-98.0) fL MCH (27.0-33.0) pg MCHC (31.0-36.0) g/dl RDW (11.0-16.0) % Plt Count (160-400) X10*3/uL MPV (9.4-12.4) fL Immature Gran % (Auto) (0.0-0.4) % Neut % (Auto) (45-73) % Lymph % (Auto) (20-40) % [place] % (Auto) (2-11) % Eos % (Auto) (0-4) % Baso % (Auto) (0-2) % Lymph # (Auto) (1.2-4.9) X10*3/uL [place] # (Auto) (0.1-1.2) X10*3/uL Eos # (Auto) (0.0-0.4) X10*3/uL Baso # (Auto) (0.0-0.2) X10*3/uL Abs Immat Gran (auto) (0.00-0.03) X10*3/uL Absolute Neuts (auto) (2.0-8.3) x10*3/uL Absolute Nucleated RBC (0.0-0.012) X10*3/uL Nucleated RBC % (auto) (0.0-0.2) /100WBC Sodium (135-145) mmol/L Potassium (3.3-5.1) mmol/L Chloride (96-108) mmol/L Carbon Dioxide (22-29) mmol/L Anion Gap (12-20) BUN (9-16) mg/dL Creatinine (0.5-1.4) mg/dL Estim Creat Clear Calc Estimated GFR POC Glucose 247 H (60-115) mg/dL Random Glucose (60-115) mg/dL Calcium (8.4-10.2) mg/dL Total Bilirubin (0.0-1.0) mg/dL AST (5-37) U/L ALT (0-40) U/L Alkaline Phosphatase (39-117) U/L Total Protein (6.5-8.0) g/dL Albumin (3.5-5.0) g/dL Urine Color Urine Appearance Urine pH (5.0-8.0) Ur Specific [place] (1.005-1.025) Urine Protein (NEG-TRACE) MG/DL Urine Glucose (UA) (NEG) MG/DL Urine Ketones (NEG) MG/DL Urine Blood (NEG) Urine Nitrite (NEG) Ur Leukocyte Esterase (NEG) Urine RBC (0) /HPF Urine WBC (0-4) /HPF Ur Squamous Epith Cells /LPF Urine Bacteria /LPF Discharge Plan Discharge Clinical Impression: Biliary colic Patient Disposition: Home, Self-Care Instructions: Biliary Colic (ED) Additional Instructions: Please call GI at [phone] tomorrow. They should be calling you, I have referred you to them, they may recommend you have a nuclear gallbladder study call the HIDA scan If you develop fevers, if you have any other new or concerning symptoms such as severe abdominal pain, vomiting, chest pain, please return to emergency room Prescriptions: No Action lisinopril 40 mg tablet 40 mg PO DAILY 90 Days Qty: 90 RF: 2 pantoprazole 40 mg tablet,delayed release (DR/EC) 40 mg PO BID Qty: 90 RF: 2 amlodipine [Norvasc] 5 mg tablet 5 mg PO DAILY RF: 0 cholecalciferol (vitamin D3) 50 mcg (2,000 unit) capsule 50 mcg PO DAILY RF: 0 insulin lispro [Humalog KwikPen Insulin] 100 unit/mL insulin pen 20 unit subcut TID RF: 0 Tresiba FlexTouch U-100 100 unit/mL (3 mL) insulin pen 30 unit subcut DAILY RF: 0 simethicone [Gas Relief (simethicone)] 125 mg tablet,chewable 125 mg PO TID PRN (Reason: abdominal distention) Qty: 30 RF: 2 atorvastatin [Lipitor] 40 mg tablet 40 mg PO QPM Qty: 90 RF: 4 ondansetron 4 mg tablet,disintegrating 4 mg PO Q8H PRN (Reason: nausea and vomiting) Qty: 30 RF: 1 aspirin [Enteric Coated Aspirin] 81 mg tablet,delayed release (DR/EC) 81 mg PO DAILY Qty: 90 RF: 4 Referrals: Jun Dennis [Physician] - 2 days Stand Alone Forms: Work/School Release [facility] Past Medical History Medical History Arthritis Atherosclerotic cardiovascular disease Depression Essential hypertension Fatty liver Fibromyalgia Hyperlipidemia, unspecified SALGUERO (nonalcoholic steatohepatitis) Palpitations Type 2 diabetes mellitus with unspecified complications Surgical History History of ankle surgery History of colonoscopy Hx of endoscopy Family History Family History Father Diabetes Mother No problems noted. Social History Social History Household Members: Spouse Alcohol intake: current Alcohol intake frequency: a few times a month Patient Tobacco Use Status: Current someday Tobacco user Advance Directives: No Advance Directives Information Provided: No Current occupational status: employed Current occupation: [employer]
[2021-05-26 21:51] VITALS: BP 125/76; PULSE 66; RESP 14; O2SAT 99
[2021-05-26] MEDS: 0.9 % Sodium Chloride 1,000 ML 999 ML IV (22:02)
[2021-05-26 22:06] LABS: Glucose, Whole Blood 247 mg/dL (60-115)
[2021-05-26 23:20] VITALS: BP 142/85; PULSE 82; RESP 18; TEMP 37; O2SAT 100
--- NOTE | 2021-05-26 23:21 | PC.NURSE ---
Pt alert and oriented x4, calm and cooperative. Pt denies pain. Pt denies N/V. Pt states he is ready for discharge. Pt educated on dc teaching and stated an understanding. IV removed. Vitals stable. Pt ambulated out of ER without issues.
== END 2021-05-26 23:22 | disposition home or self-care (01) ==
PROVIDERS: Emergency Provider Emergency Medicine; PCP Nurse Practitioner Family
DX: K80.50 Calculus of bile duct without cholangitis or cholecystitis without obstruction (principal); R10.9 Unspecified abdominal pain; K75.81 Nonalcoholic steatohepatitis (NASH); K74.00 Hepatic fibrosis, unspecified; E11.9 Type 2 diabetes mellitus without complications; I10 Essential (primary) hypertension; F17.200 Nicotine dependence, unspecified, uncomplicated; Z79.4 Long term (current) use of insulin; Z79.02 Long term (current) use of antithrombotics/antiplatelets; Z79.899 Other long term (current) drug therapy
CPT/HCPCS: 36415; 76705; 80053; 81001; 82947; 85025; 96361; 96374; 99284

== ENCOUNTER → 2021-05-27 11:56 | Outpatient (BNVA) | payer MEDICAID, SELFPAY | PROVIDERS: PCP Nurse Practitioner Family; Visit Provider Internal Medicine Gastroenterology ==

== ENCOUNTER → 2021-07-22 10:58 | Outpatient (BNVA) | payer MEDICAID, SELFPAY | PROVIDERS: PCP Registered Nurse; Referring Provider Registered Nurse; Visit Provider Internal Medicine Gastroenterology | DX: K75.81 Nonalcoholic steatohepatitis (NASH) (principal) | CPT/HCPCS: 99212 ==

== ENCOUNTER 2021-08-09 08:25 | Outpatient (REF) | payer MEDICAID, SELFPAY ==
--- NOTE | ~2021-08-09 | MR_ITS ---
EXAMINATION: MR ABDOMEN WITHOUT AND WITH CONTRAST CLINICAL INFORMATION: SALGUERO. COMPARISON: Previous CT of the abdomen and pelvis November 2019 and abdominal ultrasound most recent May 2021 TECHNIQUE: MR abdomen was performed without and with use of 9 mL intravenous Gadavist gadolinium contrast. Postcontrast images are performed in multiphase dynamic sequences. Imaging was performed in 3 planes. FINDINGS: LUNG BASES: The visualized lung bases are unremarkable. LIVER, GALLBLADDER, AND BILIARY TREE: The liver is enlarged. The liver loses signal on out of phase sequences suggestive of fatty infiltration. There is a 1.2 x 2 cm lesion in the medial segment of the left lobe of the liver. This is low signal on T1 weighted sequences, high signal on T2-weighted sequences. This demonstrates early arterial phase enhancement and remains enhanced with respect to the liver on later sequences following blood pool signal. This probably represents a hemangioma. No other focal liver lesion is seen. The gallbladder is normal. There are no gallstones. There is no intrahepatic or extrahepatic biliary duct dilatation. The common bile duct measures 3 mm. No common bile duct stone is seen. PANCREAS: Unremarkable. SPLEEN: Normal. ADRENAL GLANDS: Normal. KIDNEYS AND URETERS: The kidneys are normal in size, shape, and enhance symmetrically. No hydronephrosis. No perinephric stranding. There is a 1 cm cyst exophytic to the upper pole of the right kidney. GASTROINTESTINAL TRACT: No bowel obstruction. No ascites or fluid collection. ABDOMINAL WALL: No significant hernia is appreciated. LYMPH NODES: No lymphadenopathy. VASCULAR: Unremarkable. There is a small umbilical hernia containing fat. OSSEOUS STRUCTURES: Marrow signal normal. There is degenerative disc disease at L5-S1. There is a small bright T2 lesion in the T8 vertebral body. This is not seen on all sequences and difficult to characterize but probably represents a hemangioma. MR/MR abdomen wo/w con IMPRESSION: Enlarged fatty liver. 1.2 x 2 cm probable hemangioma in the medial segment of the left lobe of the liver. Small right renal cyst.
== END 2021-08-09 08:26 | disposition home or self-care (01) ==
LOC: HO.MRI 08:25
PROVIDERS: Visit Provider Internal Medicine Gastroenterology
DX: K75.81 Nonalcoholic steatohepatitis (NASH) (principal); K76.9 Liver disease, unspecified
CPT/HCPCS: 74183; A9585

== ENCOUNTER 2021-09-02 17:56 | Emergency (ER) | payer MEDICAID, SELFPAY ==
--- NOTE | ~2021-09-02 | XR_ITS ---
EXAMINATION: XR CHEST CLINICAL INFORMATION: Hypertension. COMPARISON: Chest radiograph dated from 02/28/2019. TECHNIQUE: PA view of the chest was obtained. FINDINGS: Normal cardiomediastinal silhouette. No focal airspace opacities, pleural effusions or pneumothorax. No acute osseous abnormalities. Upper abdomen is within normal limits. XR/XR chest 1V IMPRESSION: No acute cardiopulmonary findings.
[2021-09-02 18:12] VITALS: BP 183/102; PULSE 100; RESP 18; TEMP 36.7; O2SAT 96; BMI 28.8
--- NOTE | 2021-09-02 19:36 | ECG_ITS ---
Test Reason : hypertension Blood Pressure : / mmHG Vent. Rate : 089 BPM Atrial Rate : 089 BPM P-R Int : 152 ms QRS Dur : 078 ms QT Int : 376 ms P-R-T Axes : 042 004 023 degrees QTc Int : 457 ms Normal sinus rhythm Normal ECG When compared with ECG of 11-JUN-2019 17:36, No significant change was found Referred By: Generic ED Physician Electronically Signed By:MARCUS LOPES
[2021-09-02 20:15] VITALS: BP 177/102
[2021-09-02 20:25] LABS: Basophils Absolute Auto 0.1 X10*3/uL (0.0-0.2); Basophils Percent Auto 0.3 % (0-2); Eosinophils Percent Auto 0.1 % (0-4); Hematocrit 41.6 % (42.0-52.0); Hemoglobin 13.5 g/dl (14.0-18.0); Imm Gran Abs Auto 0.04 X10*3/uL (0.00-0.03); Imm Gran Pct Auto 0.3 % (0.0-0.4); Lymphocytes Absolute Auto 1.8 X10*3/uL (1.2-4.9); Lymphocytes Percent Auto 11.7 % (20-40); MANUAL DIFF FLAG NO; Mean Corpuscular HGB Conc 32.5 g/dl (31.0-36.0); Mean Corpuscular Hemoglobin 27.4 pg (27.0-33.0); Mean Corpuscular Volume 84.6 fL (80.0-98.0); Mean Platelet Volume 9.4 fL (9.4-12.4); Monocytes Absolute Auto 1.4 X10*3/uL (0.1-1.2); Monocytes Percent Auto 9.2 % (2-11); Neutrophils Percent Auto 78.4 % (45-73); Platelet Count 290 X10*3/uL (160-400); Red Blood Count 4.92 X10*6/uL (4.60-5.80); Red Cell Distribution Width 13.2 % (11.0-16.0); White Blood Count 15.3 X10*3/uL (4.8-10.8)
[2021-09-02 20:47] LABS: Troponin-I High Sensitivity 37.2 ng/L (<3.5-35.0)
[2021-09-02 20:57] LABS: Anion Gap 20 (12-20); Blood Urea Nitrogen 10 mg/dL (9-16); Calcium 10.9 mg/dL (8.4-10.2); Carbon Dioxide 23 mmol/L (22-29); Chloride 98 mmol/L (96-108); Creatinine Clr Calc Pharmacy 98.9; Estimated Glomerular Filt Rate > 60; Glucose Random 150 mg/dL (60-115); Sodium 137 mmol/L (135-145)
[2021-09-02 21:53] VITALS: BP 197/97; PULSE 99; TEMP 36.9; O2SAT 99
--- NOTE | 2021-09-02 21:59 | ED_ITS ---
HPI - General Adult General Chief complaint: General Medical Stated complaint: HBP Time Seen by Provider: 09/02/21 21:51 Source: patient Mode of arrival: ambulatory Limitations: no limitations History of Present Illness HPI narrative: Patient comes to the emergency room complaining of high blood pressure. Patient states that he is usually pretty compliant with his medication, takes lisinopril 40 mg. Patient states that he discontinued taking amlodipine 5 mg, because he consider that he was taking too much medication. Patient states that today he does not remember if he took his lisinopril at all. Patient complaining of mild headache, denies visual changes, chest pain, shortness of breath. Related Data Home Medications Medication Instructions Recorded Confirmed amlodipine 5 mg tablet (Norvasc) 5 mg PO DAILY 05/26/20 03/16/21 cholecalciferol (vitamin D3) 50 50 mcg PO DAILY 05/26/20 03/16/21 mcg (2,000 unit) capsule insulin degludec 100 unit/mL (3 30 unit SUBCUT DAILY ml 05/26/20 03/16/21 mL) subcutaneous pen (Tresiba FlexTouch U-100 insulin) insulin lispro 100 unit/mL 20 unit SUBCUT TID ml 05/26/20 03/16/21 subcutaneous pen (Humalog KwikPen (U-100) Insulin) Previous Rx's Medication Instructions Recorded aspirin 81 mg tablet,delayed 81 mg PO DAILY #90 tab 10/05/20 release (Enteric Coated Aspirin) lisinopril 40 mg tablet 40 mg PO DAILY 90 Days #90 tab 12/09/20 ondansetron 4 mg disintegrating 4 mg PO Q8H PRN #30 tab 02/01/21 tablet simethicone 125 mg chewable tablet 125 mg PO TID PRN #30 tab 03/16/21 (Gas Relief (simethicone)) pantoprazole 40 mg tablet,delayed 40 mg PO BID #90 tab 03/17/21 release amlodipine 5 mg tablet 5 mg PO DAILY #30 tab 09/03/21 Allergies Allergy/AdvReac Type Severity Reaction Status Date / Time atorvastatin [ATORVASTATIN] AdvReac Unknown HIGH LIVER Verified 07/22/21 11:18 ENZYMES, high liver count Review of Systems Review of Systems: Constitutional : No Weight loss, No Fever, No Chills, No Night Sweats, No Fatigue, No Malaise ENT/Mouth : No Hearing loss, No Ear Pain, No Nasal Congestion, No Sinus Pain, No Hoarseness, No sore throat, No Rhinorrhea, No Swallowing Difficulty Eyes: No Eye Pain, No Swelling, No Redness, No Foreign Body, No Discharge, No Vision Changes Cardiovascular : No Chest Pain, No SOB, No Dyspnea on Exertion, No Orthopnea, No Edema, No Palpitations, complaining of high blood pressure in the 220s Respiratory : No Cough, No Sputum, No Wheezing, No Smoke Exposure, No Dyspnea Gastrointestinal : No Nausea, No Vomiting, No Diarrhea, No Constipation, No abdominal Pain, No Hematochezia, No Melena Genitourinary : no irregular bleeding, No Dysuria, No Urinary Frequency, No Hematuria, No Urinary Incontinence, No Urgency, No Flank Pain, No Urinary Flow Changes, No Hesitancy Musculoskeletal : No joint pain, No Myalgias, No Joint Swelling Skin : No Skin Lesions, No rash Neuro : No Weakness, No Numbness, No Paresthesias, No Loss of Consciousness, No Dizziness, complaining of mild Headache Psych : No Anxiety/Panic, No Depression, No SI/HI/AH/VH, No Social Issues, Heme/Lymph: No Bruising, No Bleeding,No Lymphadenopathy Endocrine : No Polyuria, No Polydipsia, No Temperature Intolerance PMFSH Past Medical History Medical History Arthritis Atherosclerotic cardiovascular disease Depression Essential hypertension Fatty liver Fibromyalgia Hyperlipidemia, unspecified SALGUERO (nonalcoholic steatohepatitis) Palpitations Type 2 diabetes mellitus with unspecified complications Surgical History History of ankle surgery History of colonoscopy Hx of endoscopy Family History Family History Father Diabetes Mother No problems noted. Social History Social History Household Members: Spouse Alcohol intake: current Alcohol intake frequency: a few times a month Patient Tobacco Use Status: Current someday Tobacco user Advance Directives: No Advance Directives Information Provided: No Current occupational status: employed Current occupation: [employer] Physical Exam ED Vital Signs: Vital Signs - 24 hr 09/02/21 18:12 09/02/21 20:15 09/02/21 21:53 Temperature 98.1 F 98.5 F Pulse Rate 100 99 Respiratory Rate 18 Blood Pressure 183/102 H 177/102 H 197/97 H Pulse Oximetry 96 99 09/02/21 22:45 09/02/21 23:15 09/02/21 23:40 Temperature Pulse Rate 88 88 88 Respiratory Rate 16 16 16 Blood Pressure 167/100 H 182/104 H 171/100 H Pulse Oximetry 98 98 09/03/21 00:08 Temperature Pulse Rate 88 Respiratory Rate 16 Blood Pressure 177/97 H Pulse Oximetry 98 BMI result Body Mass Index 28.8 Const Other: Appearance: Alert. Oriented X3. No acute distress. Slightly anxious Eyes: Pupils equal, round and reactive to light. ENT: Pharynx normal. Neck: Normal inspection. Neck supple. No lymph nodes noted. No crepitus CVS: Normal heart rate and rhythm. Pulses normal. Normal S1 and S2, mild S1 systolic murmur in left sternal border Respiratory: No respiratory distress. Breath sounds normal. No Wheezing. No rales Abdomen: Soft and nontender. No rigidity. No distention. Skin: Skin warm and dry. Normal skin color. Normal skin turgor. Extremities: No lower extremity edema. No Lacerations. No Rash Neuro: Oriented X 3. No motor deficit. No sensory deficit. Moving all extermities. No slurred speech. Course Course Course Narrative: Patient's blood pressure did not improve much after 1 dose of p.o. 100 mg labetalol. Second dose of labetalol p.o. being given. Patient is asymptomatic Patient's blood pressure decreased to 177 systolic. Patient asymptomatic. I discussed with the patient that based on the cardiology notes, he is supposed to be on a body pain and lisinopril. Patient agrees to continue taking lisinopril and adding amlodipine 5 mg. Prior to discharge, patient was given also 1 dose of amlodipine 5 mg. Troponin 2 Is same as troponin 1 Medical Decision Making Lab Data Result diagrams: 09/02/21 20:25 09/02/21 20:25 Labs: Lab Results 09/02/21 09/02/21 09/02/21 Range/Units 20:25 20:25 20:25 WBC 15.3 H (4.8-10.8) X10*3/uL RBC 4.92 (4.60-5.80) X10*6/uL Hgb 13.5 L (14.0-18.0) g/dl Hct 41.6 L (42.0-52.0) % MCV 84.6 (80.0-98.0) fL MCH 27.4 (27.0-33.0) pg MCHC 32.5 (31.0-36.0) g/dl RDW 13.2 (11.0-16.0) % Plt Count 290 D (160-400) X10*3/uL MPV 9.4 (9.4-12.4) fL Immature Gran % (Auto) 0.3 (0.0-0.4) % Neut % (Auto) 78.4 H (45-73) % Lymph % (Auto) 11.7 L (20-40) % [place] % (Auto) 9.2 (2-11) % Eos % (Auto) 0.1 (0-4) % Baso % (Auto) 0.3 (0-2) % Lymph # (Auto) 1.8 (1.2-4.9) X10*3/uL [place] # (Auto) 1.4 H (0.1-1.2) X10*3/uL Eos # (Auto) 0.0 (0.0-0.4) X10*3/uL Baso # (Auto) 0.1 (0.0-0.2) X10*3/uL Abs Immat Gran (auto) 0.04 H (0.00-0.03) X10*3/uL Absolute Neuts (auto) 12.0 H (2.0-8.3) x10*3/uL Absolute Nucleated RBC 0.000 (0.0-0.012) X10*3/uL Nucleated RBC % (auto) 0.0 (0.0-0.2) /100WBC Sodium 137 (135-145) mmol/L Potassium 4.0 (3.3-5.1) mmol/L Chloride 98 (96-108) mmol/L Carbon Dioxide 23 (22-29) mmol/L Anion Gap 20 (12-20) BUN 10 (9-16) mg/dL Creatinine 0.89 (0.5-1.4) mg/dL Estim Creat Clear Calc 98.9 Estimated GFR > 60 Random Glucose 150 H D (60-115) mg/dL Calcium 10.9 H D (8.4-10.2) mg/dL Troponin I High Sens 37.2 H (<3.5-35.0) ng/L 09/02/21 Range/Units 23:34 WBC (4.8-10.8) X10*3/uL RBC (4.60-5.80) X10*6/uL Hgb (14.0-18.0) g/dl Hct (42.0-52.0) % MCV (80.0-98.0) fL MCH (27.0-33.0) pg MCHC (31.0-36.0) g/dl RDW (11.0-16.0) % Plt Count (160-400) X10*3/uL MPV (9.4-12.4) fL Immature Gran % (Auto) (0.0-0.4) % Neut % (Auto) (45-73) % Lymph % (Auto) (20-40) % [place] % (Auto) (2-11) % Eos % (Auto) (0-4) % Baso % (Auto) (0-2) % Lymph # (Auto) (1.2-4.9) X10*3/uL [place] # (Auto) (0.1-1.2) X10*3/uL Eos # (Auto) (0.0-0.4) X10*3/uL Baso # (Auto) (0.0-0.2) X10*3/uL Abs Immat Gran (auto) (0.00-0.03) X10*3/uL Absolute Neuts (auto) (2.0-8.3) x10*3/uL Absolute Nucleated RBC (0.0-0.012) X10*3/uL Nucleated RBC % (auto) (0.0-0.2) /100WBC Sodium (135-145) mmol/L Potassium (3.3-5.1) mmol/L Chloride (96-108) mmol/L Carbon Dioxide (22-29) mmol/L Anion Gap (12-20) BUN (9-16) mg/dL Creatinine (0.5-1.4) mg/dL Estim Creat Clear Calc Estimated GFR Random Glucose (60-115) mg/dL Calcium (8.4-10.2) mg/dL Troponin I High Sens 36.1 H (<3.5-35.0) ng/L ECG Data Attestation: I personally reviewed and interpreted this ECG as follows: (Sinus rhythm, heart rate 89, no ST segment depression or elevation, no T-wave inversion, QTC 457) Discharge Plan Discharge Clinical Impression: Hypertension Patient Disposition: Home, Self-Care Instructions: Hypertension (ED) Additional Instructions: Please follow-up with your primary care physician tomorrow. If you have any worsening or new symptoms, please return to the emergency room or call 911 Prescriptions: New amlodipine 5 mg tablet 5 mg PO DAILY Qty: 30 0RF No Action lisinopril 40 mg tablet 40 mg PO DAILY 90 Days Qty: 90 2RF pantoprazole 40 mg tablet,delayed release (DR/EC) 40 mg PO BID Qty: 90 2RF amlodipine [Norvasc] 5 mg tablet 5 mg PO DAILY 0RF cholecalciferol (vitamin D3) 50 mcg (2,000 unit) capsule 50 mcg PO DAILY 0RF insulin lispro [Humalog KwikPen Insulin] 100 unit/mL insulin pen 20 unit subcut TID 0RF Tresiba FlexTouch U-100 100 unit/mL (3 mL) insulin pen 30 unit subcut DAILY 0RF simethicone [Gas Relief (simethicone)] 125 mg tablet,chewable 125 mg PO TID PRN (Reason: abdominal distention) Qty: 30 2RF ondansetron 4 mg tablet,disintegrating 4 mg PO Q8H PRN (Reason: nausea and vomiting) Qty: 30 1RF aspirin [Enteric Coated Aspirin] 81 mg tablet,delayed release (DR/EC) 81 mg PO DAILY Qty: 90 4RF Referrals: Jovany Feliciano MD [Physician] - 2 days
[2021-09-02] MEDS: Labetalol HCL 100 MG TABLET PO ×2 (22:04→23:39)
[2021-09-02 22:45] VITALS: BP 167/100; PULSE 88; RESP 16; O2SAT 98
[2021-09-02 23:15] VITALS: BP 182/104; PULSE 88; RESP 16; O2SAT 98
--- NOTE | 2021-09-02 23:18 | PC.NURSE ---
VS obtained and aware.
[2021-09-02 23:40] VITALS: BP 171/100; PULSE 88; RESP 16
[2021-09-03 00:05] LABS: Troponin-I High Sensitivity 36.1 ng/L (<3.5-35.0)
[2021-09-03 00:08] VITALS: BP 177/97; PULSE 88; RESP 16; O2SAT 98
--- NOTE | 2021-09-03 00:12 | PC.NURSE ---
in room speaking in [place] with pt. pt awaiting d/c instructions.
== END 2021-09-03 00:24 | disposition home or self-care (01) ==
PROVIDERS: Emergency Provider Emergency Medicine; PCP Registered Nurse
DX: I10 Essential (primary) hypertension (principal); F17.200 Nicotine dependence, unspecified, uncomplicated; R51.9 Headache, unspecified; R07.89 Other chest pain; R06.02 Shortness of breath; Z71.6 Tobacco abuse counseling; Z79.899 Other long term (current) drug therapy
CPT/HCPCS: 36415; 71045; 80048; 84484; 85025; 93005; 99283; 99284

== ENCOUNTER → 2021-11-01 13:34 | Outpatient (BNVA) | payer MEDICAID, SELFPAY | PROVIDERS: PCP Registered Nurse; Referring Provider Registered Nurse; Visit Provider Internal Medicine | DX: I25.10 Atherosclerotic heart disease of native coronary artery without angina pectoris (principal); I10 Essential (primary) hypertension; E11.8 Type 2 diabetes mellitus with unspecified complications | CPT/HCPCS: 93005; 99212 ==

== ENCOUNTER 2021-11-15 06:50 | Outpatient (REF) | payer MEDICAID, SELFPAY ==
[2021-11-15 09:14] LABS: Cholesterol 263 mg/dL; HDL Cholesterol 109 mg/dL; LDL Cholesterol Calculated 133 mg/dl; Triglycerides 105 mg/dL
== END 2021-11-15 06:51 | disposition home or self-care (01) ==
LOC: HO.LAB 06:50
PROVIDERS: PCP Physician Assistant; Visit Provider Internal Medicine
DX: I25.10 Atherosclerotic heart disease of native coronary artery without angina pectoris (principal)
CPT/HCPCS: 36415; 80061

== ENCOUNTER 2022-09-18 09:07 | Emergency (ER) | payer MEDICAID, SELFPAY ==
--- NOTE | ~2022-09-18 | CT_ITS ---
EXAMINATION: CT ANGIOGRAM OF THE CHEST WITH AND WITHOUT CONTRAST (CT PULMONARY ANGIOGRAM FOR PE) CT ABDOMEN AND PELVIS WITH IV CONTRAST CLINICAL INFORMATION: Chest pain, evaluate for PE. Abdominal pain. Umbilical hernia. COMPARISON: MR abdomen 08/09/2021. TECHNIQUE: Prior to contrast administration, noncontrast localization images were obtained. Subsequently, multidetector volumetric imaging was performed from the thoracic inlet to the pubic symphysis through the chest, abdomen, and pelvis following the administration of 85 mL Omnipaque 350 intravenous contrast. No contrast reaction reported Sagittal, coronal, and MIP oblique sagittal (through the chest only) reformatted images were obtained on the CT workstation, uploaded to PACS, and reviewed. Total exam dose-length product 236 and 559 mGy-cm This CT examination was performed using dose optimization techniques as appropriate, variously including the following: *Automated exposure control *Adjustment of mA and/or kV according to patient size (this includes techniques or standardized protocols for targeted exams where dose is matched to indication/reason for exam; i.e. extremities or head) *Use of iterative reconstruction technique FINDINGS: QUALITY OF STUDY/CONTRAST BOLUS: Satisfactory. PULMONARY ARTERIES: No central or segmental pulmonary emboli. THORACIC AORTA: No aneurysm or dissection. LUNG: No focal consolidation, nodules or masses. PLEURA: No pleural effusion or pneumothorax. MEDIASTINUM: Normal heart size. No pericardial effusion. No hilar or mediastinal lymphadenopathy. No evidence of septal bowing or right heart strain. CHEST WALL/AXILLA: No axillary or internal mammary lymphadenopathy. ABDOMEN/PELVIS: LIVER, GALLBLADDER AND BILIARY TREE: Decreased attenuation of liver parenchyma suggesting hepatic steatosis. There is also a nodular contour raising the possibility of cirrhosis. There is redemonstration of a 1.7 cm enhancing lesion in the medial left hepatic lobe (age: 28) previously characterized as a hemangioma on an MR from 08/09/2021, stable in size. No new liver lesion. Normal appearance of the gallbladder. No biliary ductal dilatation. PANCREAS: Fat stranding centered around the proximal duodenum and pancreas. The main duct is nondilated. No organized collections. SPLEEN: Normal size. No focal lesion. ADRENAL GLANDS: Normal; no mass. KIDNEYS AND URETERS: The kidneys are normal in size, shape, and attenuation. No hydronephrosis, hydroureter, or calculi. GASTROINTESTINAL TRACT: The stomach and the small bowel are nondilated. Colonic diverticulosis without significant pericolonic inflammatory changes. No evidence of bowel obstruction. No findings to suspect acute appendicitis. ABDOMINAL WALL: No significant hernia is appreciated. LYMPHOVASCULAR STRUCTURES: Enlarged periportal and peripancreatic lymph nodes. Abdominal aorta is of normal diameter with scattered atherosclerotic disease. The main portal vein is patent. BLADDER: Diffuse wall thickening with slight trabeculation. No perivesical fat stranding. No intraluminal calculi. PELVIC VISCERA: Mild prostatomegaly. OSSEOUS STRUCTURES: Chronic bilateral posterolateral eighth rib fractures. CT/CT angio chest PE protocol IMPRESSION: 1. No evidence of pulmonary emboli. 2. No acute cardiopulmonary abnormalities. 3. Fat stranding centered around the proximal duodenum and pancreas suggesting acute pancreatitis/duodenitis. Correlate with lipase. 4. Hepatic steatosis with a nodular contour raising the possibility of cirrhosis. 5. Enlarged periportal and peripancreatic lymph nodes are likely reactive. 6. Diverticulosis but no evidence of acute diverticulitis. 7. Bladder wall thickening and trabeculation could be related with chronic outlet obstruction in the setting of prostatomegaly. VTE: negative
--- NOTE | ~2022-09-18 | US_ITS ---
EXAMINATION: US VENOUS ULTRASOUND WITH DOPPLER LOWER EXTREMITY, RIGHT CLINICAL INFORMATION: Right calf pain. COMPARISON: No similar priors. TECHNIQUE: Ultrasound of the deep veins is performed from the hip to the calf with compression sonography and color and pulse Doppler assessment. Spectral analysis with color-flow imaging is performed. FINDINGS: There is normal venous compression and respiratory variation and augmented flow. The visualized common femoral vein, superficial femoral vein, profunda femoral vein, popliteal vein, and the trifurcation region shows no evidence of deep venous thrombosis. There is no significant popliteal fossa cyst. If the patient's symptoms persist, followup ultrasound in 5 days 7 days might be of value to exclude proximal propagation from a non-visualized calf vein. US/US venous duplex LE RT IMPRESSION: No DVT demonstrated in the right lower extremity.
--- NOTE | ~2022-09-18 | XR_ITS ---
EXAMINATION: XR CHEST CLINICAL INFORMATION: Left-sided chest pain COMPARISON: 09/02/2021 TECHNIQUE: 2 views of the chest were obtained. FINDINGS: Cardiac leads overlie the chest. The lungs are well expanded. There is no focal consolidation, edema, or effusion. No pneumothorax. The cardiomediastinal silhouette is within normal limits. No acute osseous abnormality. Chronic healed left lateral seventh rib fracture. XR/XR chest 2V IMPRESSION: Clear lungs.
[2022-09-18 09:16] VITALS: BP 111/58; PULSE 92; RESP 14; TEMP 36.8; O2SAT 96; BMI 28.1
[2022-09-18 09:36] LABS: MANUAL DIFF FLAG NO
[2022-09-18 09:44] LABS: Basophils Absolute Auto 0.1 X10*3/uL (0.0-0.2); Basophils Percent Auto 0.4 % (0-2); Eosinophils Percent Auto 0.2 % (0-4); Hematocrit 39.8 % (42.0-52.0); Imm Gran Abs Auto 0.04 X10*3/uL (0.00-0.03); Imm Gran Pct Auto 0.3 % (0.0-0.4); Lymphocytes Absolute Auto 1.3 X10*3/uL (1.2-4.9); Lymphocytes Percent Auto 11.1 % (20-40); Mean Corpuscular HGB Conc 32.7 g/dl (31.0-36.0); Mean Corpuscular Hemoglobin 27.8 pg (27.0-33.0); Mean Corpuscular Volume 85.2 fL (80.0-98.0); Mean Platelet Volume 9.4 fL (9.4-12.4); Monocytes Absolute Auto 0.9 X10*3/uL (0.1-1.2); Monocytes Percent Auto 8.1 % (2-11); Neutrophils Absolute Auto 9.2 x10*3/uL (2.0-8.3); Neutrophils Percent Auto 79.9 % (45-73); Platelet Count 238 X10*3/uL (160-400); Red Blood Count 4.67 X10*6/uL (4.60-5.80); Red Cell Distribution Width 13.5 % (11.0-16.0); White Blood Count 11.6 X10*3/uL (4.8-10.8)
[2022-09-18 10:02] LABS: INTERNATIONAL NORM RATIO 1.3 (0.9-1.1); Prothrombin Time 15.6 SEC (10.0-13.1)
[2022-09-18 10:03] LABS: Troponin-I High Sensitivity 27.6 ng/L (<3.5-35.0)
[2022-09-18 10:04] LABS: Partial Thromboplastin Time 33.7 SEC (26.0-36.4)
[2022-09-18 10:14] LABS: Alanine Aminotransferase 37 U/L (0-40); Alkaline Phosphatase 209 U/L (39-117); Anion Gap 18 (12-20); Aspartate Amino Transferase 93 U/L (5-37); Bilirubin Total 1.1 mg/dL (0.0-1.0); Blood Urea Nitrogen 9 mg/dL (9-16); Calcium 9.3 mg/dL (8.4-10.2); Carbon Dioxide 28 mmol/L (22-29); Chloride 100 mmol/L (96-108); Creatinine Clr Calc Pharmacy 70.6; Estimated Glomerular Filt Rate > 60; Glucose Random 209 mg/dL (60-115); Potassium 4.1 mmol/L (3.3-5.1); Sodium 142 mmol/L (135-145)
[2022-09-18 10:14] LABS: B Type Natriuretic Peptide 32 pg/mL (<100)
--- NOTE | 2022-09-18 11:17 | ED.CHESTPAIN ---
HPI - Chest Pain General Chief Complaint: Chest Pain Stated Complaint: severe chest pain Time Seen by Provider: 09/18/22 09:30 Source: patient Mode of arrival: ambulatory Limitations: no limitations History of Present Illness HPI narrative: 57-year-old male with pmh of DM, HTN, and Nonalcoholic steatohepatitis presents to the ED for left sided chest peres for 1 month. Patient has secondary complaint is umbilical hernia pain that has worsened. Patient denies any vomiting or constipation. patient states having chest pain when he is working. patient denies any shortness of breath, leg sweling, calf pain, coughing, increase use of pillows, or any URI symptoms. Related Data Home Medications Medication Instructions Recorded Confirmed cholecalciferol (vitamin D3) 50 50 mcg PO DAILY 05/26/20 03/03/22 mcg (2,000 unit) capsule insulin degludec 100 unit/mL (3 30 unit subcut DAILY 05/26/20 03/03/22 mL) subcutaneous pen (Tresiba FlexTouch U-100 insulin) insulin lispro 100 unit/mL 20 unit subcut TID 05/26/20 03/03/22 subcutaneous pen (Humalog KwikPen (U-100) Insulin) atorvastatin 40 mg tablet 40 mg PO QPM 03/01/22 03/03/22 blood sugar diagnostic (FreeStyle #10 ea 03/01/22 03/03/22 Lite Strips) blood-glucose meter (FreeStyle #1 ea 03/01/22 03/03/22 [place] Lite kit) cholecalciferol (vitamin D3) 50 50 mcg PO DAILY 03/01/22 03/03/22 mcg (2,000 unit) tablet escitalopram oxalate 10 mg tablet 10 mg PO DAILY 03/01/22 03/03/22 gabapentin 100 mg capsule 100 mg PO BID 03/01/22 03/03/22 lancets 33 gauge (TRUEplus Lancets) #100 ea 03/01/22 03/03/22 omeprazole 40 mg capsule,delayed 40 mg PO BID 03/01/22 03/03/22 release pen needle, diabetic 31 gauge x #50 ea 03/01/22 03/03/22 3/16 (Sure Comfort Pen Needle) sildenafil 50 mg tablet (Viagra) 25 - 50 mg PO DAILY PRN 03/01/22 03/03/22 Previous Rx's Medication Instructions Recorded ondansetron 4 mg disintegrating 4 mg PO Q8H PRN nausea and 02/01/21 tablet vomiting #30 tabs simethicone 125 mg chewable tablet 125 mg PO TID PRN abdominal 03/16/21 (Gas Relief (simethicone)) distention #30 tabs pantoprazole 40 mg tablet,delayed 40 mg PO BID #90 tabs 03/17/21 release amlodipine 10 mg tablet 10 mg PO DAILY #90 tabs 11/01/21 alirocumab 75 mg/mL subcutaneous 75 mg subcut Q2W #7 mL 11/18/21 pen injector (Praluent Pen) tadalafil 20 mg tablet 20 mg PO ONCE PRN sexual activity 06/08/22 30 days #30 tabs tadalafil 5 mg tablet 5 mg PO DAILY sexual activity 90 06/08/22 days #90 tabs lisinopril 40 mg tablet 40 mg PO DAILY 90 days #90 tabs 07/20/22 oxycodone 5 mg capsule 5 mg PO TID PRN pain 3 days #9 caps 09/18/22 Allergies Allergy/AdvReac Type Severity Reaction Status Date / Time atorvastatin [ATORVASTATIN] AdvReac Unknown elevated Verified 06/08/22 13:12 LFTs Review of Systems Review of Systems: left-sided chest pain for a month when working. Yes all other systems are reviewed and are negative [facility] Past Medical History Medical History Arthritis Atherosclerotic cardiovascular disease Depression Essential hypertension Fatty liver Fibromyalgia Hyperlipidemia, unspecified SALGUERO (nonalcoholic steatohepatitis) Palpitations Type 2 diabetes mellitus with unspecified complications Surgical History History of ankle surgery History of colonoscopy Hx of endoscopy Family History Family History Father Diabetes Mother No problems noted. Social History Social History Household Members: Spouse Alcohol intake: current Alcohol intake frequency: a few times a month Patient Tobacco Use Status: Never used Tobacco Smoked in Last 30 Days: No Advance Directives: No Advance Directives Information Provided: No Current occupational status: employed Current occupation: [employer] Physical Exam Vital Signs: Vital Signs: Last Vital Signs Temp 98.4 F 09/18/22 14:01 Pulse 86 09/18/22 14:01 Resp 17 09/18/22 14:01 BP 126/80 09/18/22 14:01 Pulse Ox 97 09/18/22 14:01 O2 Del Method 09/18/22 14:01 BMI result Body Mass Index 28.1 Const: General: cooperative, healthy appearing, comfortable, no acute distress, well developed, alert, awake and Physically active Orientation/consciousness: oriented to person, oriented to place, oriented to time and patient oriented x3 HEENT: Head: Yes normal to inspection, Yes No palpable skull fracture present, Yes normocephalic, Yes atraumatic and No abrasion Eyes: General: appearance normal, both eyes and all related structures Neck: Neck: Yes normal visual inspection, Yes full ROM, Yes no lymphadenopathy, Yes no meningeal signs, Yes trachea midline, Yes supple, No anterior neck swelling and No tender Chest: Chest palpation & inspection: normal inspection of the chest and normal palpation of entire chest wall Resp: Effort & Inspection: normal respiratory effort and able to speak in complete sentences Auscultation: clear to auscultation bilaterally Cardio: Jugular venous distension: no JVD Heart sounds: S1 normal heart sound present and S2 normal heart sound present GI: Inspection: Yes normal to inspection and No abdominal wall ecchymosis Palpation (GI): Soft to palpation, not firm, Tenderness to palpation present (GI) (umbilical hernia tenderness.), no guarding and not rigid : General: No CVA tenderness and Yes no CVA tenderness Back/Spine/Pelvis: Back: no CVA tenderness, No CVA tenderness and No back tenderness Skin: General skin exam: no rashes or lesions noted and elasticity normal Neuro: General: oriented to person, oriented to place, oriented to time, patient oriented x3, gait normal, tone normal, moves all extremities, Normal light touch and pain sensation, no meningeal signs, no focal motor deficits and CN's II-XI intact bilaterally Extrem: General: Yes normal to inspection and Yes full ROM Upper/lower leg/hip images: 1. Positive for calf tenderness on palpaton. Negative for swelling, erythema, ecchymosis, or pitting edmea. MOtor, neuro, and vascular exam intact Psych: Appearance: grossly normal and well kempt Course Course Course Narrative: due to patient have a cardiac evaluation. Due to calf pain although no swelling was sent for ultrasound to rule out DVT. Chest x-ray ordered. Will send a D-dimer Reevaluation(s) Reevaluation #1: Patient ultrasound negative for DVT. Chest x-ray negative pneumonia. Two troponin is negative. EKG negative STEMI. Chest CT negative for PE. D-dimer was slightly positive 192. Abdominal CT scan was done to rule out any umbilical hernia instead patient had acute pancreatitis although patient does not have any epigastric pain only umbilical tenderness. CT scan does not say any umblical hernia . UA is normal. Lipase only 90. Patient was informed usually acute pancreatitis patient gets admitted NPO with IV fluids. the patient refused admission. Patient likes to be discharged. Patient drank cup of water and had 4 crackers packs of crackers. Patient paced p.o. challenge. Patient does not want admission and will return to the ED if he worsens. Time: 15:55 Medications Administered Discontinued Medications Generic Name Dose Route Start Last Admin Trade Name Freq PRN Reason Stop Dose Admin Iohexol 85 ml 09/18/22 13:40 09/18/22 13:40 Iohexol 350 Mg/Ml 100 Ml Infus..Btl IV 09/18/22 13:41 85 ml ONCE ONE Administration Medical Decision Making Medical Decision Making [facility] Narrative: 57-year-old male with history of diabetes high blood pressure presents to ED for atypical presentation of chest pain for 3 weeks while working. Patient not toxic appearing. Patient denies any drug use, leg swelling, calf pain, shortness of breath. Patient had cardiac evaluation. Patient will have imaging. Differential Diagnosis Differential Diagnoses: The differential diagnosis associated with the presentation includes ( Myocardial infarction, congestive heart failure, PE, pneumonia, muscular chest wall pain,) Admission/Observation Consideration of admission/observation: Escalation of care including admission/observation considered Lab Data [facility] Lab Attestation statement: I reviewed the patient's lab results. 09/18/22 09:31 09/18/22 09:32 Labs: Lab Results 09/18/22 09/18/22 09/18/22 Range/Units 09:31 09:31 09:31 WBC 11.6 H (4.8-10.8) X10*3/uL RBC 4.67 (4.60-5.80) X10*6/uL Hgb 13.0 L (14.0-18.0) g/dl Hct 39.8 L (42.0-52.0) % MCV 85.2 (80.0-98.0) fL MCH 27.8 (27.0-33.0) pg MCHC 32.7 (31.0-36.0) g/dl RDW 13.5 (11.0-16.0) % Plt Count 238 (160-400) X10*3/uL MPV 9.4 (9.4-12.4) fL Immature Gran % (Auto) 0.3 (0.0-0.4) % Neut % (Auto) 79.9 H (45-73) % Lymph % (Auto) 11.1 L (20-40) % [place] % (Auto) 8.1 (2-11) % Eos % (Auto) 0.2 (0-4) % Baso % (Auto) 0.4 (0-2) % Lymph # (Auto) 1.3 (1.2-4.9) X10*3/uL [place] # (Auto) 0.9 (0.1-1.2) X10*3/uL Eos # (Auto) 0.0 (0.0-0.4) X10*3/uL Baso # (Auto) 0.1 (0.0-0.2) X10*3/uL Abs Immat Gran (auto) 0.04 H (0.00-0.03) X10*3/uL Absolute Neuts (auto) 9.2 H (2.0-8.3) x10*3/uL Absolute Nucleated RBC 0.000 (0.0-0.012) X10*3/uL Nucleated RBC % (auto) 0.0 (0.0-0.2) /100WBC PT (10.0-13.1) SEC INR (0.9-1.1) APTT (26.0-36.4) SEC D-Dimer High Sensitivty NG/ML Sodium (135-145) mmol/L Potassium (3.3-5.1) mmol/L Chloride (96-108) mmol/L Carbon Dioxide (22-29) mmol/L Anion Gap (12-20) BUN (9-16) mg/dL Creatinine (0.5-1.4) mg/dL Estim Creat Clear Calc Estimated GFR Random Glucose (60-115) mg/dL Calcium (8.4-10.2) mg/dL Total Bilirubin (0.0-1.0) mg/dL AST (5-37) U/L ALT (0-40) U/L Alkaline Phosphatase (39-117) U/L Troponin I High Sens 27.6 (<3.5-35.0) ng/L B-Natriuretic Peptide 32 (<100) pg/mL Total Protein (6.5-8.0) g/dL Albumin (3.5-5.0) g/dL Lipase (8-78) U/L Urine Color Urine Appearance Urine pH (5.0-9.0) Ur Specific [place] (1.005-1.025) Urine Protein (Neg-Trace) mg/dL Urine Glucose (UA) (Negative) mg/dL Urine Ketones (Negative) mg/dL Urine Blood (Negative) Urine Nitrite (Negative) Ur Leukocyte Esterase (Negative) Urine RBC (0-2) /HPF Urine WBC (0-5) /HPF Ur Squamous Epith Cells (0-2) /HPF Urine Bacteria (None Seen) Hyaline Casts (0-2) /LPF 09/18/22 09/18/22 09/18/22 Range/Units 09:32 09:47 13:59 WBC (4.8-10.8) X10*3/uL RBC (4.60-5.80) X10*6/uL Hgb (14.0-18.0) g/dl Hct (42.0-52.0) % MCV (80.0-98.0) fL MCH (27.0-33.0) pg MCHC (31.0-36.0) g/dl RDW (11.0-16.0) % Plt Count (160-400) X10*3/uL MPV (9.4-12.4) fL Immature Gran % (Auto) (0.0-0.4) % Neut % (Auto) (45-73) % Lymph % (Auto) (20-40) % [place] % (Auto) (2-11) % Eos % (Auto) (0-4) % Baso % (Auto) (0-2) % Lymph # (Auto) (1.2-4.9) X10*3/uL [place] # (Auto) (0.1-1.2) X10*3/uL Eos # (Auto) (0.0-0.4) X10*3/uL Baso # (Auto) (0.0-0.2) X10*3/uL Abs Immat Gran (auto) (0.00-0.03) X10*3/uL Absolute Neuts (auto) (2.0-8.3) x10*3/uL Absolute Nucleated RBC (0.0-0.012) X10*3/uL Nucleated RBC % (auto) (0.0-0.2) /100WBC PT 15.6 H (10.0-13.1) SEC INR 1.3 H (0.9-1.1) APTT 33.7 (26.0-36.4) SEC D-Dimer High Sensitivty 192 NG/ML Sodium 142 (135-145) mmol/L Potassium 4.1 (3.3-5.1) mmol/L Chloride 100 (96-108) mmol/L Carbon Dioxide 28 (22-29) mmol/L Anion Gap 18 (12-20) BUN 9 (9-16) mg/dL Creatinine 1.18 (0.5-1.4) mg/dL Estim Creat Clear Calc 70.6 Estimated GFR > 60 Random Glucose 209 H (60-115) mg/dL Calcium 9.3 D (8.4-10.2) mg/dL Total Bilirubin 1.1 H (0.0-1.0) mg/dL AST 93 H (5-37) U/L ALT 37 (0-40) U/L Alkaline Phosphatase 209 H (39-117) U/L Troponin I High Sens 25.5 (<3.5-35.0) ng/L B-Natriuretic Peptide (<100) pg/mL Total Protein 8.0 (6.5-8.0) g/dL Albumin 4.0 (3.5-5.0) g/dL Lipase 90 H (8-78) U/L Urine Color Urine Appearance Urine pH (5.0-9.0) Ur Specific [place] (1.005-1.025) Urine Protein (Neg-Trace) mg/dL Urine Glucose (UA) (Negative) mg/dL Urine Ketones (Negative) mg/dL Urine Blood (Negative) Urine Nitrite (Negative) Ur Leukocyte Esterase (Negative) Urine RBC (0-2) /HPF Urine WBC (0-5) /HPF Ur Squamous Epith Cells (0-2) /HPF Urine Bacteria (None Seen) Hyaline Casts (0-2) /LPF 09/18/22 Range/Units 15:08 WBC (4.8-10.8) X10*3/uL RBC (4.60-5.80) X10*6/uL Hgb (14.0-18.0) g/dl Hct (42.0-52.0) % MCV (80.0-98.0) fL MCH (27.0-33.0) pg MCHC (31.0-36.0) g/dl RDW (11.0-16.0) % Plt Count (160-400) X10*3/uL MPV (9.4-12.4) fL Immature Gran % (Auto) (0.0-0.4) % Neut % (Auto) (45-73) % Lymph % (Auto) (20-40) % [place] % (Auto) (2-11) % Eos % (Auto) (0-4) % Baso % (Auto) (0-2) % Lymph # (Auto) (1.2-4.9) X10*3/uL [place] # (Auto) (0.1-1.2) X10*3/uL Eos # (Auto) (0.0-0.4) X10*3/uL Baso # (Auto) (0.0-0.2) X10*3/uL Abs Immat Gran (auto) (0.00-0.03) X10*3/uL Absolute Neuts (auto) (2.0-8.3) x10*3/uL Absolute Nucleated RBC (0.0-0.012) X10*3/uL Nucleated RBC % (auto) (0.0-0.2) /100WBC PT (10.0-13.1) SEC INR (0.9-1.1) APTT (26.0-36.4) SEC D-Dimer High Sensitivty NG/ML Sodium (135-145) mmol/L Potassium (3.3-5.1) mmol/L Chloride (96-108) mmol/L Carbon Dioxide (22-29) mmol/L Anion Gap (12-20) BUN (9-16) mg/dL Creatinine (0.5-1.4) mg/dL Estim Creat Clear Calc Estimated GFR Random Glucose (60-115) mg/dL Calcium (8.4-10.2) mg/dL Total Bilirubin (0.0-1.0) mg/dL AST (5-37) U/L ALT (0-40) U/L Alkaline Phosphatase (39-117) U/L Troponin I High Sens (<3.5-35.0) ng/L B-Natriuretic Peptide (<100) pg/mL Total Protein (6.5-8.0) g/dL Albumin (3.5-5.0) g/dL Lipase (8-78) U/L Urine Color Yellow Urine Appearance Clear Urine pH 7.5 (5.0-9.0) Ur Specific [place] >= 1.030 H (1.005-1.025) Urine Protein 30 (1+) H (Neg-Trace) mg/dL Urine Glucose (UA) Negative (Negative) mg/dL Urine Ketones Negative (Negative) mg/dL Urine Blood Small (1+) H (Negative) Urine Nitrite Negative (Negative) Ur Leukocyte Esterase Negative (Negative) Urine RBC 6-10 H (0-2) /HPF Urine WBC 0-5 (0-5) /HPF Ur Squamous Epith Cells 0-2 (0-2) /HPF Urine Bacteria None Seen (None Seen) Hyaline Casts 0-2 (0-2) /LPF Independent Interpretation I performed an independent interpretation of an: EKG ( normal sinus rhythm. Ventricular rate 99. SD interval 150. QRS 74. QTC 451. Negative STEMI. Normal EKG) Radiology Impression Discussion of test interpretation with radiology: I have reviewed the radiologist's reading. Prescription Management I considered prescription management with: Pain Medication Chronic Conditions Patient?s care impacted by: Diabetes and Hypertension Discharge Plan Discharge Clinical Impression: Acute pancreatitis, Atypical chest pain Patient Disposition: Home, Self-Care Instructions: Chest Pain (ED), Pancreatitis (ED) Additional Instructions: blood work imaging and CT scan came back negative for Pulmonary embolus. his CT scan did show acute pancreatitis which usually warrants. admission but you did not want to be admitted. you will be discharged with pain medication. Return to the ED immediately for worsening abdominal pain, fever, chills, nausea, vomiting, diarrhea, chest pain, shortness of breath, leg swelling, calf pain, coughing up blood, or any other concerning symptoms. 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 No Action Praluent Pen 75 mg/mL pen injector 75 mg subcut Q2W Qty: 7 3RF Rx Instructions: inject into abdomen, thigh, or upper arm (deltoid muscle); rotate sites lisinopril 40 mg tablet 40 mg PO DAILY 90 Days Qty: 90 0RF Rx Instructions: Please call and schedule cardiology appt for refills pantoprazole 40 mg tablet,delayed release (DR/EC) 40 mg PO BID Qty: 90 2RF cholecalciferol (vitamin D3) 50 mcg (2,000 unit) capsule 50 mcg PO DAILY insulin lispro [Humalog KwikPen Insulin] 100 unit/mL insulin pen 20 unit subcut TID Tresiba FlexTouch U-100 100 unit/mL (3 mL) insulin pen 30 unit subcut DAILY simethicone [Gas Relief (simethicone)] 125 mg tablet,chewable 125 mg PO TID PRN (Reason: abdominal distention) Qty: 30 2RF ondansetron 4 mg tablet,disintegrating 4 mg PO Q8H PRN (Reason: nausea and vomiting) Qty: 30 1RF (DME) lancets [TRUEplus Lancets] 33 gauge misc See Rx Instructions .ROUTE TID Qty: 100 Rx Instructions: As directed cholecalciferol (vitamin D3) 50 mcg (2,000 unit) tablet 50 mcg PO DAILY (DME) pen needle, diabetic [Sure Comfort Pen Needle] 31 gauge x 3/16 needle See Rx Instructions .ROUTE QID Qty: 50 Rx Instructions: As directed omeprazole 40 mg capsule,delayed release(DR/EC) 40 mg PO BID (DME) FreeStyle Lite Strips Strip See Rx Instructions .ROUTE TID Qty: 10 Rx Instructions: As directed (DME) blood-glucose meter [FreeStyle [place] Lite] Kit See Rx Instructions .ROUTE TID Qty: 1 Rx Instructions: As directed escitalopram oxalate 10 mg tablet 10 mg PO DAILY gabapentin 100 mg capsule 100 mg PO BID atorvastatin 40 mg tablet 40 mg PO QPM sildenafil [Viagra] 50 mg tablet 25 - 50 mg PO DAILY PRN tadalafil 5 mg tablet 5 mg PO DAILY 90 Days Qty: 90 1RF amlodipine 10 mg tablet 10 mg PO DAILY Qty: 90 3RF tadalafil 20 mg tablet 20 mg PO ONCE PRN (Reason: sexual activity) 30 Days Qty: 30 0RF Rx Instructions: On demand medication take 60 minutes before intended activity Stand Alone Forms: Work/School Release Print Language: Latvian
[2022-09-18 11:46] LABS: D Dimer High Sensitivity 192 NG/ML
[2022-09-18 12:08] VITALS: BP 105/60; PULSE 81; RESP 19; O2SAT 96
--- NOTE | 2022-09-18 13:30 | ECG_ITS ---
Test Reason : cp Blood Pressure : / mmHG Vent. Rate : 099 BPM Atrial Rate : 099 BPM P-R Int : 150 ms QRS Dur : 074 ms QT Int : 352 ms P-R-T Axes : 044 016 035 degrees QTc Int : 451 ms Normal sinus rhythm Normal ECG When compared with ECG of 02-SEP-2021 21:25, No significant change was found Referred By: Brad Naylor Electronically Signed By:Holland Sharpe
[2022-09-18] MEDS: iohexoL 350 MG/ML 100 ML INFUS..BTL 85 ML IV (13:40)
[2022-09-18 14:01] VITALS: BP 126/80; PULSE 86; RESP 17; TEMP 36.9; O2SAT 97
[2022-09-18 14:38] LABS: Troponin-I High Sensitivity 25.5 ng/L (<3.5-35.0)
[2022-09-18 15:17] LABS: Appearance Urine Clear; Color Urine Yellow; Glucose Urine UA Negative (Negative); Leukocyte Esterase Urine Negative (Negative); Nitrite Urine Negative (Negative); PH 7.5 (5.0-9.0); Specific Gravity - Urine >= 1.030 (1.005-1.025); UMIC TRIGGER UACC YES; Urine Blood Small (1+) (Negative); Urine Ketones Negative (Negative); Urine Protein 30 (1+) mg/dL (Neg-Trace)
[2022-09-18 15:22] LABS: Bacteria Urine None Seen (None Seen); Hyaline Casts Urine 0-2 /LPF (0-2); Squamous Epithelial Cell Urine 0-2 /HPF (0-2); WBC Urine 0-5 /HPF (0-5)
[2022-09-18 15:22] LABS: Lipase 90 U/L (8-78)
== END 2022-09-18 17:07 | disposition home or self-care (01) ==
PROVIDERS: Physician Assistant; Emergency Provider Student in an Organized Health Care Education/Training Program; PCP Registered Nurse
DX: K85.90 Acute pancreatitis without necrosis or infection, unspecified (principal); R60.0 Localized edema; R06.02 Shortness of breath; R07.89 Other chest pain; E11.9 Type 2 diabetes mellitus without complications; R10.9 Unspecified abdominal pain; I10 Essential (primary) hypertension; Z79.899 Other long term (current) drug therapy
CPT/HCPCS: 36415; 71046; 71275; 74177; 80053; 81001; 83690; 83880; 84484; 85025; 85379; 85610; 85730; 93005; 93971; 99284; 99285; Q9967

== ENCOUNTER 2022-12-14 15:43 | Outpatient (REF) | payer MEDICAID, SELFPAY ==
--- NOTE | ~2022-12-14 | XR_ITS ---
EXAMINATION: XR LUMBOSACRAL SPINE CLINICAL INFORMATION: Reason for Exam CHRONIC LEFT SIDE LOW BACK PAIN COMPARISON: No prior imaging available at the time of dictation. TECHNIQUE: 3 views of the lumbar spine FINDINGS: 5 nonrib-bearing lumbar-type vertebral bodies. Vertebral body heights are maintained. Alignment is maintained. Moderate degenerative changes at L5-S1 with loss of disc space height and facet arthropathy. Atherosclerotic calcifications of the abdominal aorta. XR/XR lumbar spine 2-3V IMPRESSION: 1. Moderate degenerative changes at L5-S1 with loss of disc space height and facet arthropathy.
== END 2022-12-14 15:44 | disposition home or self-care (01) ==
LOC: HO.XRAY 15:43
PROVIDERS: PCP Physician Assistant; Visit Provider Emergency Medicine
DX: M54.42 Lumbago with sciatica, left side (principal); G89.29 Other chronic pain
CPT/HCPCS: 72100

== ENCOUNTER 2022-12-15 13:31 | Inpatient (IN) | payer MEDICAID, SELFPAY ==
--- NOTE | ~2022-12-15 | MR_ITS ---
EXAMINATION: MR ABDOMEN WITHOUT CONTRAST CLINICAL INFORMATION: Abnormal ultrasound. Cholelithiasis. Clinical concern for biliary calculus COMPARISON: Portions of a previous MRI 08/09/21 TECHNIQUE: MR abdomen is performed without gadolinium contrast. MRCP was performed FINDINGS: LUNG BASES: No suspicious abnormality in the visualized lower chest LIVER, GALLBLADDER, AND BILIARY TREE: The right lobe of the liver measures 16.9 cm. This is close to the mean expected. There is a T2 intense mass in the ventral aspect of the left lobe liver which is unchanged since at least 08/09/21. Previous MRI characterize this as probable hemangioma. The gallbladder is not distended. The gallbladder wall is slightly thickened. There is a small amount of pericholecystic fluid. The stones demonstrated on ultrasound are not well demonstrated on the MRI MRCP: There is no biliary dilation. There is no choledocholithiasis. PANCREAS: No suspicious abnormality SPLEEN: The spleen measures 10.6 cm. This is close to the mean expected. No suspicious abnormality ADRENAL GLANDS: Normal KIDNEYS AND URETERS: There is no significant dilation of the urinary collecting system on either side. No suspicious renal mass. Small cyst which does not require further evaluation involving the upper right kidney. GASTROINTESTINAL TRACT: No evidence of bowel obstruction. ABDOMINAL WALL: No significant hernia is appreciated. LYMPH NODES: There are no measurably enlarged upper abdominal lymph nodes. There is a trace amount of upper abdominal fluid including around the gallbladder VASCULAR: There is no abdominal aortic aneurysm. There is a flow void within the portal vein. I suspect recanalization of the umbilical vein. OSSEOUS STRUCTURES: Marrow signal normal. MR/MR MRCP IMPRESSION: There is no large gallstone. There is no biliary dilation. There is no choledocholithiasis. There is a small amount of upper abdominal fluid and some of the fluid is around the gallbladder. Recanalization of the umbilical vein. Previous studies have better demonstrated liver nodularity
--- NOTE | ~2022-12-15 | CT_ITS ---
EXAMINATION: CT ABDOMEN AND PELVIS WITHOUT CONTRAST CLINICAL INFORMATION: Abdominal pain COMPARISON: Previous CT of the abdomen and pelvis most recent September 2022 and abdominal MRI August 2021 TECHNIQUE: Multidetector volumetric imaging was performed from the superior aspect of the liver through the pubic symphysis. Sagittal and coronal reformatted images were obtained on the technologist's workstation. This CT examination was performed using dose optimization techniques as appropriate, variously including the following: *Automated exposure control *Adjustment of mA and/or kV according to patient size (this includes techniques or standardized protocols for targeted exams where dose is matched to indication/reason for exam; i.e. extremities or head) *Use of iterative reconstruction technique DLP: 633 mGy-cm FINDINGS: LUNG BASES: The visualized lung bases are unremarkable. LIVER, GALLBLADDER, AND BILIARY TREE: The liver is slightly enlarged. The contour of the liver is irregular or scalloped and there is hypertrophy of the left lobe and caudate lobe questionable for mild cirrhotic change. There is a low-attenuation lesion in the left lobe of the liver measuring 1.2 x 1.7 cm axial image 21 series 3. This is similar to previous exams and was found to represent a hemangioma on MRI. No other focal liver lesion. The gallbladder is contracted. There are gallstones. Varices and recanalized paraumbilical vein. PANCREAS: Unremarkable. SPLEEN: Unremarkable. ADRENAL GLANDS: Unremarkable. KIDNEYS AND URETERS: Question small stone in the upper pole of the left kidney. The kidneys are otherwise normal. BLADDER: Not optimally distended. It is difficult to exclude mild diffuse bladder wall thickening. GASTROINTESTINAL TRACT: The small and large bowel are unremarkable. The appendix is unremarkable. ABDOMINAL WALL: Small umbilical hernia containing fat. LYMPH NODES: Small periportal, retroperitoneal and small bowel mesentery lymph nodes. VASCULAR: Varices. No ascites. PELVIC VISCERA: Unremarkable. OSSEOUS STRUCTURES: Degenerative changes of the spine. CT/CT abdomen pelvis wo IV con IMPRESSION: Cirrhotic-appearing liver. Varices. No ascites. Stable liver lesion found to represent hemangioma MRI. Contracted gallbladder. Gallstones. Question small left renal stone. Fleischner guidelines were followed.
--- NOTE | ~2022-12-15 | XR_ITS ---
EXAMINATION: XR HIP, LEFT CLINICAL INFORMATION: Greater trochanteric pain. COMPARISON: CT abdomen/pelvis 09/18/2022. TECHNIQUE: Two views of the left hip. FINDINGS: Equivocal very subtle nondisplaced fracture of the greater trochanter of the left femur. Chronic calcifications in the left superior acetabulum. No subluxation. Symmetric SI joints. Pubic symphysis is maintained. No significant soft tissue abnormality. XR/XR hip LT w PEL1V IMPRESSION: Equivocal very subtle nondisplaced fracture of the greater trochanter of the left femur. Further evaluation with a CT could be obtained as clinically indicated.
--- NOTE | ~2022-12-15 | CT_ITS ---
EXAMINATION: CT HIP WITHOUT CONTRAST, LEFT CLINICAL INFORMATION: Radiology recommendation. Pain. COMPARISON: Radiographs from today TECHNIQUE: Multidetector volumetric imaging of the left hip performed without IV contrast. Coronal and sagittal reformatted images are obtained and reviewed. This CT examination was performed using dose optimization techniques as appropriate, variously including the following: *Automated exposure control *Adjustment of mA and/or kV according to patient size (this includes techniques or standardized protocols for targeted exams where dose is matched to indication/reason for exam; i.e. extremities or head) *Use of iterative reconstruction technique DLP: 171 mGy-cm FINDINGS: There is no fracture. The greater trochanter is intact. No significant spurring. No adjacent fluid. The hip is well aligned. Small osteophytes present. The visualized pelvis is intact. Vascular calcifications noted. There is a small intramuscular lipoma measuring up to 2.5 cm along the anterior margin of the proximal femoral diaphysis. No lymphadenopathy. CT/CT hip LT wo IV con IMPRESSION: 1. No fracture or malalignment. Mild degenerative changes of the left hip. 2. Small intramuscular lipoma along the anterior margin of the proximal femoral diaphysis.
--- NOTE | ~2022-12-15 | US_ITS ---
EXAMINATION: US ABDOMEN LIMITED CLINICAL INFORMATION: Right upper quadrant pain. COMPARISON: Gallbladder evaluation. TECHNIQUE: Real-time imaging of the gallbladder. FINDINGS: Contracted gallbladder. Cholelithiasis. Diffuse gallbladder wall thickening. No significant pericholecystic free fluid. Positive Chatman's sign. CBD measures 0.4 cm in diameter. US/US abdomen limited IMPRESSION: Cholelithiasis with diffuse gallbladder wall thickening and a positive Chatman's sign suggesting acute cholecystitis in the appropriate clinical context. However, the gallbladder wall thickening could also be seen in the setting of hepatocellular disease in this patient with possible cirrhosis when correlated with CT from earlier today. These findings could also be reactive, such as for example in the setting of acute pancreatitis, as some degree of mild peripancreatic free fluid is noted on the CT from same day. Degenerative indicated further evaluation with a nuclear medicine study could be obtained.
[2022-12-15 14:02] VITALS: BP 124/68; PULSE 83; RESP 16; TEMP 36.1; O2SAT 97; BMI 28.3
--- NOTE | 2022-12-15 14:05 | ED_ITS ---
HPI - General Adult General Chief complaint: Abdominal Pain Stated complaint: abd pain Time Seen by Provider: 12/15/22 16:32 Source: patient Mode of arrival: ambulatory History of Present Illness HPI narrative: 57-year-old male who states he is an occasional alcohol drinker and reports some liver problems and states that for the past 2 weeks he has been having pain over the left hip area up but denies any falls or injuries but states that the pain originates at the left buttock and then wraps around to the front of the left thigh and denies any bowel or bladder difficulties, fevers, chills and denies any history of IVDA. In addition, patient reports some intermittent distension of the abdomen with some vague abdominal pain but denies any nausea, vomiting and again denies any fevers or chills associated with this but does note that it occurs around the times that he is drinking alcohol. He denies any urinary symptoms. Related Data Home Medications Medication Instructions Recorded Confirmed cholecalciferol (vitamin D3) 50 50 mcg PO DAILY 05/26/20 03/03/22 mcg (2,000 unit) capsule insulin degludec 100 unit/mL (3 30 unit subcut DAILY 05/26/20 03/03/22 mL) subcutaneous pen (Tresiba FlexTouch U-100 insulin) insulin lispro 100 unit/mL 20 unit subcut TID 05/26/20 03/03/22 subcutaneous pen (Humalog KwikPen (U-100) Insulin) atorvastatin 40 mg tablet 40 mg PO QPM 03/01/22 03/03/22 blood sugar diagnostic (FreeStyle #10 ea 03/01/22 03/03/22 Lite Strips) blood-glucose meter (FreeStyle #1 ea 03/01/22 03/03/22 [place] Lite kit) cholecalciferol (vitamin D3) 50 50 mcg PO DAILY 03/01/22 03/03/22 mcg (2,000 unit) tablet escitalopram oxalate 10 mg tablet 10 mg PO DAILY 03/01/22 03/03/22 gabapentin 100 mg capsule 100 mg PO BID 03/01/22 03/03/22 lancets 33 gauge (TRUEplus Lancets) #100 ea 03/01/22 03/03/22 omeprazole 40 mg capsule,delayed 40 mg PO BID 03/01/22 03/03/22 release pen needle, diabetic 31 gauge x #50 ea 03/01/22 03/03/22 3/16 (Sure Comfort Pen Needle) sildenafil 50 mg tablet (Viagra) 25 - 50 mg PO DAILY PRN 03/01/22 03/03/22 Previous Rx's Medication Instructions Recorded ondansetron 4 mg disintegrating 4 mg PO Q8H PRN nausea and 02/01/21 tablet vomiting #30 tabs simethicone 125 mg chewable tablet 125 mg PO TID PRN abdominal 03/16/21 (Gas Relief (simethicone)) distention #30 tabs pantoprazole 40 mg tablet,delayed 40 mg PO BID #90 tabs 03/17/21 release amlodipine 10 mg tablet 10 mg PO DAILY #90 tabs 11/01/21 alirocumab 75 mg/mL subcutaneous 75 mg subcut Q2W #7 mL 11/18/21 pen injector (Praluent Pen) tadalafil 20 mg tablet 20 mg PO ONCE PRN sexual activity 06/08/22 30 days #30 tabs tadalafil 5 mg tablet 5 mg PO DAILY sexual activity 90 06/08/22 days #90 tabs lisinopril 40 mg tablet 40 mg PO DAILY 90 days #90 tabs 07/20/22 oxycodone 5 mg capsule 5 mg PO TID PRN pain 3 days #9 caps 09/18/22 Allergies Allergy/AdvReac Type Severity Reaction Status Date / Time atorvastatin [ATORVASTATIN] AdvReac Unknown elevated Verified 12/15/22 14:02 LFTs Review of Systems Review of Systems: Pertinent positives and negatives as stated in HPI COUNT INCLUDES THE [facility] Past Medical History Source: nursing notes reviewed Medical History Arthritis Atherosclerotic cardiovascular disease Depression Essential hypertension Fatty liver Fibromyalgia Hyperlipidemia, unspecified SALGUERO (nonalcoholic steatohepatitis) Palpitations Type 2 diabetes mellitus with unspecified complications Surgical History History of ankle surgery History of colonoscopy Hx of endoscopy Family History Family History Father Diabetes Mother No problems noted. Social History Social History Household Members: Spouse Alcohol intake: current Alcohol intake frequency: a few times a week Patient Tobacco Use Status: Never used Tobacco Smoked in Last 30 Days: No Use of substances other than those prescribed or required for medical reasons: No Advance Directives: No Advance Directives Information Provided: No Current occupational status: employed Current occupation: [employer] Physical Exam ED Vital Signs: Vital Signs - 24 hr 12/15/22 14:02 12/15/22 17:53 12/15/22 20:27 Temperature 96.9 F 98.7 F Pulse Rate 83 74 71 Respiratory Rate 16 Blood Pressure 124/68 141/83 H 141/76 H Pulse Oximetry 97 99 99 Oxygen Delivery Method Room Air Room Air Room Air BMI result Body Mass Index 28.3 VITAL SIGNS: Reviewed. GENERAL: Well developed, well nourished, in no acute distress. HEAD: Normocephalic/atraumatic EYES: PERRLA, EOMI EARS: Ext canals without abnormality NOSE: Nares patent bilateral OROPHARYNX: no oral lesions noted, posterior pharynx clear NECK: Supple, no adenopathy LUNGS: Normal breath sounds. No adventitious sounds or accessory muscle use. SpO2<97> CARDIOVASCULAR: Regular rate and rhythm without noted murmurs, no JVD or lower extremity edema. ABDOMEN: Soft, diffuse/mild tenderness to palpation without rebound, there is a noted umbilical hernia without herniation, non-distended with bowel sounds. BACK: No midline vertebral tenderness or step-offs noted PELVIS: Stable, nontender MUSCULOSKELETAL: No tenderness, deformities, or effusions noted on gross in spection. EXTREMITIES: No cyanosis, clubbing or edema; LEFT LOWER EXTREMITY: There is tenderness palpation over the ITB band/greater trochanter area without erythema/induration/fluctuance, no pain on plantar/dorsiflexion, no pain on knee flexion or extension against resistance, no pain on ABduction or ADduction against resistance SKIN: Inspection of the skin reveals no rashes NEUROLOGIC: Alert and oriented x 4. Strength and sensation to light touch were grossly intact x 4. Course Course Course Narrative: This is an RME: Additional HPI, ROS, PE not included below will be deferred to primary provider. This is a 6-edun-sk[age]-male, hx of T2DM, SALGUERO, HTN, GERD, HLD, fibromyalgia, obesity, depression, pancreatitis 09/2022 and eczema, presenting to the emergency department with complaints of diffuse abdominal pain for the last 2 weeks, worsening over the last several days. No nausea, vomiting, diarrhea. Last BM two hours ago and was normal. On exam, pt is afebrile, all VSS. Abdomen is soft but distended with diffuse tenderness throughout. Plan: Labs, UA, and CT abd/pelvis ordered. Medications Administered Discontinued Medications Generic Name Dose Route Start Last Admin Trade Name Kim PRN Reason Stop Dose Admin Acetaminophen 975 mg 12/15/22 17:17 12/15/22 17:36 Acetaminophen 325 Mg Tablet PO 12/15/22 17:18 975 mg ONCE ONE Administration Sodium Chloride 1,000 mls @ 999 mls/hr 12/15/22 17:30 12/15/22 18:51 Ns IV 12/15/22 18:30 Not Given .Q1H1M CORBY Ketorolac Tromethamine 15 mg 12/15/22 17:17 12/15/22 18:35 Ketorolac Tromethamine 15 Mg/Ml Vial IM 12/15/22 17:18 Not Given ONCE ONE Medical Decision Making Medical Decision Making [facility] Narrative: 1900: 57-year-old male with history and clinical presentation suggestive after review of investigations of possible alcoholic pancreatitis although on CT scan they do note a contracted gallbladder with presence of gallstones so will proceed with ultrasound of right upper quadrant as a possible source for suspected pancreatitis. Patient given IV fluids, combination analgesics and will also proceed with hip/pelvis although suspect that this is a sciatic related pain. There were no noted deficits on examination of pelvis and hip. No concern for cauda equina. 2040: I suspect infection and d/w Dr Shanks for ?cholecystitis who recommends admission for alcohol verses biliary pancreatitis. I discussed this with the patient at bedside as well as discussing with inpatient hospitalist who accepts admission. Patient received 1 L of IV fluids, but lactic acid and blood cultures were drawn and Zosyn was given. Differential Diagnosis Please see the discussion above Consult Healthcare Provider Management of the patient was discussed with: Hospitalist and [employer] Pool Supervisor Please see the discussion above Lab Data Please see the discussion above 12/15/22 14:17 12/15/22 14:17 Labs: Lab Results 12/15/22 12/15/22 12/15/22 Range/Units 14:17 14:17 14:21 WBC 11.3 H (4.8-10.8) X10*3/uL RBC 4.33 L (4.60-5.80) X10*6/uL Hgb 11.8 L (14.0-18.0) g/dl Hct 37.4 L (42.0-52.0) % MCV 86.4 (80.0-98.0) fL MCH 27.3 (27.0-33.0) pg MCHC 31.6 (31.0-36.0) g/dl RDW 13.7 (11.0-16.0) % Plt Count 222 (160-400) X10*3/uL MPV 9.5 (9.4-12.4) fL Immature Gran % (Auto) 0.4 (0.0-0.4) % Neut % (Auto) 74.2 H (45-73) % Lymph % (Auto) 14.2 L (20-40) % [place] % (Auto) 9.6 (2-11) % Eos % (Auto) 1.2 (0-4) % Baso % (Auto) 0.4 (0-2) % Lymph # (Auto) 1.6 (1.2-4.9) X10*3/uL [place] # (Auto) 1.1 (0.1-1.2) X10*3/uL Eos # (Auto) 0.1 (0.0-0.4) X10*3/uL Baso # (Auto) 0.1 (0.0-0.2) X10*3/uL Abs Immat Gran (auto) 0.05 H (0.00-0.03) X10*3/uL Absolute Neuts (auto) 8.4 H (2.0-8.3) x10*3/uL Absolute Nucleated RBC 0.000 (0.0-0.012) X10*3/uL Nucleated RBC % (auto) 0.0 (0.0-0.2) /100WBC Sodium 137 (135-145) mmol/L Potassium 4.2 (3.3-5.1) mmol/L Chloride 104 (96-108) mmol/L Carbon Dioxide 25 (22-29) mmol/L Anion Gap 12 (12-20) BUN 19 H (9-16) mg/dL Creatinine 0.84 (0.5-1.4) mg/dL Estim Creat Clear Calc 99.3 Estimated GFR > 60 Random Glucose 171 H (60-115) mg/dL Calcium 9.5 (8.4-10.2) mg/dL Total Bilirubin 1.4 H (0.0-1.0) mg/dL Direct Bilirubin 0.6 H (0.0-0.5) mg/dL AST 32 (5-37) U/L ALT 16 (0-40) U/L Alkaline Phosphatase 167 H (39-117) U/L Total Protein 7.1 (6.5-8.0) g/dL Albumin 3.5 (3.5-5.0) g/dL Lipase 117 H (8-78) U/L Urine Color Yellow Urine Appearance Clear Urine pH 6.5 (5.0-9.0) Ur Specific [place] 1.015 (1.005-1.025) Urine Protein Negative (Neg-Trace) mg/dL Urine Glucose (UA) Negative (Negative) mg/dL Urine Ketones Negative (Negative) mg/dL Urine Blood Small (1+) H (Negative) Urine Nitrite Negative (Negative) Ur Leukocyte Esterase Negative (Negative) Urine RBC 6-10 H (0-2) /HPF Urine WBC 0-5 (0-5) /HPF Ur Squamous Epith Cells 0-2 (0-2) /HPF Urine Bacteria None Seen (None Seen) Hyaline Casts 0-2 (0-2) /LPF Radiology Impression Radiologist Impression: My interpretation is in agreement with radiology's impression External Record Review External record reviewed: Prior outpatient labs Discharge Plan Discharge Clinical Impression: Biliary acute pancreatitis, Alcohol use, Greater trochanteric bursitis Patient Disposition: Admitted As Inpatient Prescriptions: No Action Praluent Pen 75 mg/mL pen injector 75 mg subcut Q2W Qty: 7 3RF Rx Instructions: inject into abdomen, thigh, or upper arm (deltoid muscle); rotate sites lisinopril 40 mg tablet 40 mg PO DAILY 90 Days Qty: 90 0RF Rx Instructions: Please call and schedule cardiology appt for refills pantoprazole 40 mg tablet,delayed release (DR/EC) 40 mg PO BID Qty: 90 2RF oxycodone 5 mg capsule 5 mg PO TID PRN (Reason: pain) 3 Days Qty: 9 0RF Rx Instructions: Partial Fill upon patient request. cholecalciferol (vitamin D3) 50 mcg (2,000 unit) capsule 50 mcg PO DAILY insulin lispro [Humalog KwikPen Insulin] 100 unit/mL insulin pen 20 unit subcut TID Tresiba FlexTouch U-100 100 unit/mL (3 mL) insulin pen 30 unit subcut DAILY simethicone [Gas Relief (simethicone)] 125 mg tablet,chewable 125 mg PO TID PRN (Reason: abdominal distention) Qty: 30 2RF ondansetron 4 mg tablet,disintegrating 4 mg PO Q8H PRN (Reason: nausea and vomiting) Qty: 30 1RF (DME) lancets [TRUEplus Lancets] 33 gauge misc See Rx Instructions .ROUTE TID Qty: 100 Rx Instructions: As directed cholecalciferol (vitamin D3) 50 mcg (2,000 unit) tablet 50 mcg PO DAILY (DME) pen needle, diabetic [Sure Comfort Pen Needle] 31 gauge x 3/16 needle See Rx Instructions .ROUTE QID Qty: 50 Rx Instructions: As directed omeprazole 40 mg capsule,delayed release(DR/EC) 40 mg PO BID (DME) FreeStyle Lite Strips Strip See Rx Instructions .ROUTE TID Qty: 10 Rx Instructions: As directed (DME) blood-glucose meter [FreeStyle [place] Lite] Kit See Rx Instructions .ROUTE TID Qty: 1 Rx Instructions: As directed escitalopram oxalate 10 mg tablet 10 mg PO DAILY gabapentin 100 mg capsule 100 mg PO BID atorvastatin 40 mg tablet 40 mg PO QPM sildenafil [Viagra] 50 mg tablet 25 - 50 mg PO DAILY PRN tadalafil 5 mg tablet 5 mg PO DAILY 90 Days Qty: 90 1RF amlodipine 10 mg tablet 10 mg PO DAILY Qty: 90 3RF tadalafil 20 mg tablet 20 mg PO ONCE PRN (Reason: sexual activity) 30 Days Qty: 30 0RF Rx Instructions: On demand medication take 60 minutes before intended activity
[2022-12-15 14:23] LABS: MANUAL DIFF FLAG NO
[2022-12-15 14:27] LABS: Basophils Absolute Auto 0.1 X10*3/uL (0.0-0.2); Basophils Percent Auto 0.4 % (0-2); Eosinophils Absolute Auto 0.1 X10*3/uL (0.0-0.4); Eosinophils Percent Auto 1.2 % (0-4); Hematocrit 37.4 % (42.0-52.0); Hemoglobin 11.8 g/dl (14.0-18.0); Imm Gran Abs Auto 0.05 X10*3/uL (0.00-0.03); Imm Gran Pct Auto 0.4 % (0.0-0.4); Lymphocytes Absolute Auto 1.6 X10*3/uL (1.2-4.9); Lymphocytes Percent Auto 14.2 % (20-40); Mean Corpuscular HGB Conc 31.6 g/dl (31.0-36.0); Mean Corpuscular Hemoglobin 27.3 pg (27.0-33.0); Mean Corpuscular Volume 86.4 fL (80.0-98.0); Mean Platelet Volume 9.5 fL (9.4-12.4); Monocytes Absolute Auto 1.1 X10*3/uL (0.1-1.2); Monocytes Percent Auto 9.6 % (2-11); Neutrophils Absolute Auto 8.4 x10*3/uL (2.0-8.3); Neutrophils Percent Auto 74.2 % (45-73); Platelet Count 222 X10*3/uL (160-400); Red Blood Count 4.33 X10*6/uL (4.60-5.80); Red Cell Distribution Width 13.7 % (11.0-16.0); White Blood Count 11.3 X10*3/uL (4.8-10.8)
[2022-12-15 14:28] LABS: Appearance Urine Clear; Color Urine Yellow; Glucose Urine UA Negative (Negative); Leukocyte Esterase Urine Negative (Negative); Nitrite Urine Negative (Negative); PH 6.5 (5.0-9.0); Specific Gravity - Urine 1.015 (1.005-1.025); UMIC TRIGGER UACC YES; Urine Blood Small (1+) (Negative); Urine Ketones Negative (Negative); Urine Protein Negative (Neg-Trace)
[2022-12-15 14:31] LABS: Bacteria Urine None Seen (None Seen); Hyaline Casts Urine 0-2 /LPF (0-2); Squamous Epithelial Cell Urine 0-2 /HPF (0-2); WBC Urine 0-5 /HPF (0-5)
[2022-12-15 14:42] LABS: Alanine Aminotransferase 16 U/L (0-40); Albumin Level 3.5 g/dL (3.5-5.0); Alkaline Phosphatase 167 U/L (39-117); Anion Gap 12 (12-20); Aspartate Amino Transferase 32 U/L (5-37); Bilirubin Direct 0.6 mg/dL (0.0-0.5); Bilirubin Total 1.4 mg/dL (0.0-1.0); Blood Urea Nitrogen 19 mg/dL (9-16); Calcium 9.5 mg/dL (8.4-10.2); Carbon Dioxide 25 mmol/L (22-29); Chloride 104 mmol/L (96-108); Creatinine Clr Calc Pharmacy 99.3; Estimated Glomerular Filt Rate > 60; Glucose Random 171 mg/dL (60-115); Lipase 117 U/L (8-78); Potassium 4.2 mmol/L (3.3-5.1); Sodium 137 mmol/L (135-145); Total Protein 7.1 g/dL (6.5-8.0)
[2022-12-15] MEDS: Acetaminophen 325 MG TABLET 975 MG PO (17:36)
[2022-12-15 17:53] VITALS: BP 141/83; PULSE 74; TEMP 37.1; O2SAT 99
[2022-12-15 20:27] VITALS: BP 141/76; PULSE 71; O2SAT 99
--- NOTE | 2022-12-15 21:21 | PM.IMHP ---
History of Present Illness Date of Service: 12/15/22 Chief Complaint: Abdominal Pain PMFSH Medical History Arthritis Atherosclerotic cardiovascular disease Depression Essential hypertension Fatty liver Fibromyalgia Hyperlipidemia, unspecified SALGUERO (nonalcoholic steatohepatitis) Palpitations Type 2 diabetes mellitus with unspecified complications Family History Father Diabetes Mother No problems noted. Surgical History History of ankle surgery History of colonoscopy Hx of endoscopy Social History Household Members: Spouse Alcohol intake: current Alcohol intake frequency: a few times a week Patient Tobacco Use Status: Never used Tobacco Smoked in Last 30 Days: No Use of substances other than those prescribed or required for medical reasons: No Advance Directives: No Advance Directives Information Provided: No Current occupational status: employed Current occupation: [employer] Meds Allergies Allergy/AdvReac Type Severity Reaction Status Date / Time atorvastatin [ATORVASTATIN] AdvReac Unknown elevated Verified 12/15/22 14:02 LFTs Active Medications: Current Medications Piperacillin Sod/Tazobactam (Sod 3.375 gm/ Sodium Chloride) 50 mls @ 100 mls/hr IV ONCE ONE Stop: 12/15/22 21:44 Sodium Chloride (Ns) 1,000 mls @ 999 mls/hr IV .Q1H1M [place] Stop: 12/15/22 22:15 Pharmacy Consult (Consult Rx Perform Med Rec) 1 each MISCELLANE ONCE PRN PRN Reason: Consult order Home Medications Medication Instructions Recorded Confirmed Last Taken Type cholecalciferol (vitamin D3) 50 50 mcg PO DAILY 05/26/20 03/03/22 Unknown History mcg (2,000 unit) capsule insulin degludec 100 unit/mL (3 30 unit subcut DAILY 05/26/20 03/03/22 Unknown History mL) subcutaneous pen (Tresiba FlexTouch U-100 insulin) insulin lispro 100 unit/mL 20 unit subcut TID 05/26/20 03/03/22 Unknown History subcutaneous pen (Humalog KwikPen (U-100) Insulin) atorvastatin 40 mg tablet 40 mg PO QPM 03/01/22 03/03/22 Unknown History blood sugar diagnostic (FreeStyle #10 ea 03/01/22 03/03/22 Unknown History Lite Strips) blood-glucose meter (FreeStyle #1 ea 03/01/22 03/03/22 Unknown History [place] Lite kit) cholecalciferol (vitamin D3) 50 50 mcg PO DAILY 03/01/22 03/03/22 Unknown History mcg (2,000 unit) tablet escitalopram oxalate 10 mg tablet 10 mg PO DAILY 03/01/22 03/03/22 Unknown History gabapentin 100 mg capsule 100 mg PO BID 03/01/22 03/03/22 Unknown History lancets 33 gauge (TRUEplus Lancets) #100 ea 03/01/22 03/03/22 Unknown History omeprazole 40 mg capsule,delayed 40 mg PO BID 03/01/22 03/03/22 Unknown History release pen needle, diabetic 31 gauge x #50 ea 03/01/22 03/03/22 Unknown History 16 (Sure Comfort Pen Needle) sildenafil 50 mg tablet (Viagra) 25 - 50 mg PO DAILY PRN 03/01/22 03/03/22 Unknown History Physical Exam Vital Signs and Narrative: Vital Signs: Last Vital Signs Temp 98.7 F 12/15/22 17:53 Pulse 71 12/15/22 20:27 Resp 16 12/15/22 14:02 BP 141/76 H 12/15/22 20:27 Pulse Ox 99 12/15/22 20:27 O2 Del Method Room Air 12/15/22 20:27 BMI result Body Mass Index 28.3 Results Labs 12/15/22 14:17 12/15/22 14:17 Labs: Laboratory Results - last 24 hr 12/15/22 12/15/22 12/15/22 14:17 14:17 14:21 MCV 86.4 MCH 27.3 MCHC 31.6 RDW 13.7 Plt Count 222 MPV 9.5 Immature Gran % (Auto) 0.4 Neut % (Auto) 74.2 H Lymph % (Auto) 14.2 L [place] % (Auto) 9.6 Eos % (Auto) 1.2 Baso % (Auto) 0.4 Lymph # (Auto) 1.6 [place] # (Auto) 1.1 Eos # (Auto) 0.1 Baso # (Auto) 0.1 Abs Immat Gran (auto) 0.05 H Absolute Neuts (auto) 8.4 H Absolute Nucleated RBC 0.000 Nucleated RBC % (auto) 0.0 Anion Gap 12 Estim Creat Clear Calc 99.3 Estimated GFR > 60 Random Glucose 171 H Calcium 9.5 Total Bilirubin 1.4 H Direct Bilirubin 0.6 H AST 32 ALT 16 Alkaline Phosphatase 167 H Total Protein 7.1 Albumin 3.5 Lipase 117 H Urine Color Yellow Urine Appearance Clear Urine pH 6.5 Ur Specific [place] 1.015 Urine Protein Negative Urine Glucose (UA) Negative Urine Ketones Negative Urine Blood Small (1+) H Urine Nitrite Negative Ur Leukocyte Esterase Negative Urine RBC 6-10 H Urine WBC 0-5 Ur Squamous Epith Cells 0-2 Urine Bacteria None Seen Hyaline Casts 0-2 Imaging Radiologist's Impressions: Impressions Abdomen/Pelvis CT 12/15/22 14:43 IMPRESSION: Cirrhotic-appearing liver. Varices. No ascites. Stable liver lesion found to represent hemangioma MRI. Contracted gallbladder. Gallstones. Question small left renal stone. Fleischner guidelines were followed. Hip/Pelvis X-Ray 12/15/22 17:28 IMPRESSION: Equivocal very subtle nondisplaced fracture of the greater trochanter of the left femur. Further evaluation with a CT could be obtained as clinically indicated. Abdomen Ultrasound 12/15/22 17:31 IMPRESSION: Cholelithiasis with diffuse gallbladder wall thickening and a positive Chatman's sign suggesting acute cholecystitis in the appropriate clinical context. However, the gallbladder wall thickening could also be seen in the setting of hepatocellular disease in this patient with possible cirrhosis when correlated with CT from earlier today. These findings could also be reactive, such as for example in the setting of acute pancreatitis, as some degree of mild peripancreatic free fluid is noted on the CT from same day. Degenerative indicated further evaluation with a nuclear medicine study could be obtained. Hip CT 12/15/22 20:04 IMPRESSION: 1. No fracture or malalignment. Mild degenerative changes of the left hip. 2. Small intramuscular lipoma along the anterior margin of the proximal femoral diaphysis. Assessment and Plan Time Spent With Patient Time: Total time managing care of this patient today ____ minutes. Quality VTE VTE Risk Level:: Medical - moderate - high VTE Device Contraindication: Treatment Not Indicated VTE Drug Contraindication: N/A - Med Ordered
--- NOTE | 2022-12-15 21:40 | PHA.MEDREC ---
Pharmacy Consult ? Medication Reconciliation Pharmacy has completed the medication reconciliation. Spoke to patient to confirm meds.
--- NOTE | 2022-12-15 21:42 | P.HPHOSP_ITS ---
History of Present Illness Date of Service: 12/15/22 Attending physician on admission: Vinnie García Chief Complaint: Abdominal pain Pt is a 57-year-old male with a PMH significant for?HTN, liver cirrhosis, and insulin-dependent diabetes who presents to the ED with?abdominal pain and blo ating. Patient states that for the past 2 weeks he has noticed waxing and waning abdominal distension to the point where his belly button will push out. Patient regularly has 2 bowel movements per day with last bowel movement earlier today. His belly remains soft, feels like gas rather than fluid. Distension has been accompanied by lower abdominal pain that radiates to his left hip. At the same time patient has been experiencing uncontrollable blood sugar levels. States previously his glucose was well controlled, but lately has been jumping up into the 300-400s without any change to diet or medication. Has also had decreased appetite. Patient has long history of abdominal pain and discomfort, has been seeing GI for over 10 years most recently followed by Dr. Garcia. Patient notes that he does consume alcohol, primarily [place] [employer]. Patient does not drink daily and amount fluctuates, though sometimes he drinks a lot. Patient denies fever, chills, nausea, vomiting, diarrhea. No chest pain/pressure, palpitations. Denies shortness of breath. In the ED patient was afebrile but slightly hypertensive 141/83. Labs were significant for leukocytosis of 11.3, H&H of 11.8/37.4, total bilirubin 1.4, alk-phos 167, lipase 117. Electrolytes within normal limits. Renal function baseline. UA negative for UTI. Ethyl alcohol level pending. Hip and pelvis x- ray found equivocal very stable nondisplaced fracture of the greater trochanter of the left femur. CT of hip found no fracture or malalignment but mild degenerative changes of the left hip, and a small intramuscular lipoma along the anterior margin of the proximal femoral diaphysis. CT?of abdomen and pelvis found a cirrhotic appearing liver with varices and stable liver lesion but no ascites. Gallbladder was contracted with gallstones. Question of small left renal stone. Abdominal ultrasound found cholelithiasis with diffuse gallbladder wall thickening and a positive Chatman's sign suggestive of acute cholecystitis, though gallbladder wall thickening could also be in the setting of hepatocellular disease with possible cirrhosis. Could also be in the setting of acute pancreatitis as mild peripancreatic free fluid was noted on the CT from today. Pt was treated with acetaminophen, Zosyn, and IVF. Pt will be admitted to the hospital for treatment and further workup of likely acute cholecystitis. Review of Systems Review of Systems: Abdominal pain Abdominal bloating Left hip pain Decreased appetite Denies fever, chills, nausea, vomiting No constipation, diarrhea Denies chest pain/pressure, palpitations No shortness of breath Yes all other systems are reviewed and are negative [facility] Medical History Arthritis Atherosclerotic cardiovascular disease Depression Essential hypertension Fatty liver Fibromyalgia Hyperlipidemia, unspecified SALGUERO (nonalcoholic steatohepatitis) Palpitations Type 2 diabetes mellitus with unspecified complications Family History Father Diabetes Mother No problems noted. Surgical History History of ankle surgery History of colonoscopy Hx of endoscopy Social History Household Members: Spouse Alcohol intake: current Alcohol intake frequency: a few times a week Patient Tobacco Use Status: Never used Tobacco service: No Current occupational status: employed Current occupation: [employer] Meds Allergies Allergy/AdvReac Type Severity Reaction Status Date / Time atorvastatin [ATORVASTATIN] AdvReac Unknown elevated Verified 12/15/22 14:02 LFTs Active Medications: Current Medications Acetaminophen (Acetaminophen 325 Mg Tablet) 650 mg PO Q6H PRN PRN Reason: Pain, Mild (Pain Scale 1-3) Enoxaparin Sodium (Enoxaparin Sodium 40 Mg/0.4 Ml Syringe) 40 mg SUBCUT Q24H CORBY Piperacillin Sod/Tazobactam (Sod 3.375 gm/ Sodium Chloride) 50 mls @ 100 mls/hr IV ONCE ONE Stop: 12/15/22 21:44 Sodium Chloride (Ns) 1,000 mls @ 999 mls/hr IV .Q1H1M CORBY Stop: 12/15/22 22:15 Melatonin (Melatonin 3 Mg Tablet) 6 mg PO BEDTIME PRN PRN Reason: Insomnia Morphine Sulfate (Morphine Sulfate 4 Mg/Ml Cartridge) 2 mg IVPUSH Q6H PRN; Protocol PRN Reason: Pain, Severe (Pain Scale 7-10) Ondansetron HCl (Ondansetron Hcl 4 Mg/2 Ml Vial) 4 mg IVPUSH Q8H PRN PRN Reason: Nausea and Vomiting Pharmacy Consult (Consult Rx Perform Med Rec) 1 each MISCELLANE ONCE PRN PRN Reason: Consult order Sodium Chloride (0.9 % Sodium Chloride Flush 3 Ml Syringe) 3 [facility] Medication Instructions Recorded Confirmed Last Taken Type cholecalciferol (vitamin D3) 50 50 mcg PO DAILY 05/26/20 12/15/22 12/15/22 History mcg (2,000 unit) capsule insulin degludec 100 unit/mL (3 13 unit subcut BEDTIME 05/26/20 12/15/22 12/14/22 History mL) subcutaneous pen (Tresiba FlexTouch U-100 insulin) insulin lispro 100 unit/mL 1 sliding scale dose subcut TIDAC 05/26/20 12/15/22 12/15/22 History subcutaneous pen (Humalog KwikPen (U-100) Insulin) lisinopril 40 mg tablet 40 mg PO DAILY 12/15/22 12/15/22 12/15/22 History Physical Exam Vital Signs and Narrative: Vital Signs: Last Vital Signs Temp 98.7 F 12/15/22 17:53 Pulse 71 12/15/22 20:27 Resp 16 12/15/22 14:02 BP 141/76 H 12/15/22 20:27 Pulse Ox 99 12/15/22 20:27 O2 Del Method Room Air 12/15/22 20:27 BMI result Body Mass Index 28.3 Constitutional: Alert, in no acute distress. Mental Status: Oriented to person, place and time. Eyes: Pupils are equal, round, and reactive to light. Ear, Nose, and Throat: Oropharynx clear, mucous membranes moist. Ears and nose without deformities. Trachea midline. Respiratory: Clear to auscultation bilaterally. No wheezing, rales, or rhonchi. Cardiovascular: S1, S2 regular. No murmurs, rubs, or gallops. Gastrointestinal: Abdomen soft, distended, tender in suprapubic region and on right upper and lower quadrants. Hyperactive bowel sounds. Patient noted to have a diastasis recti. Neurologic: Cranial nerves II-XII are grossly intact bilaterally. No focal neurological deficits. Moves all extremities spontaneously. Skin: No rashes or lesions noted. Musculoskeletal: No cyanosis or clubbing. Left hip pain tender to palpation. Extremities: No edema. Psychiatric: Normal mood and affect. Results Labs 12/15/22 14:17 12/15/22 14:17 Labs: Laboratory Results - last 24 hr 12/15/22 12/15/22 12/15/22 14:17 14:17 14:21 MCV 86.4 MCH 27.3 MCHC 31.6 RDW 13.7 Plt Count 222 MPV 9.5 Immature Gran % (Auto) 0.4 Neut % (Auto) 74.2 H Lymph % (Auto) 14.2 L [place] % (Auto) 9.6 Eos % (Auto) 1.2 Baso % (Auto) 0.4 Lymph # (Auto) 1.6 [place] # (Auto) 1.1 Eos # (Auto) 0.1 Baso # (Auto) 0.1 Abs Immat Gran (auto) 0.05 H Absolute Neuts (auto) 8.4 H Absolute Nucleated RBC 0.000 Nucleated RBC % (auto) 0.0 Anion Gap 12 Estim Creat Clear Calc 99.3 Estimated GFR > 60 Random Glucose 171 H Calcium 9.5 Total Bilirubin 1.4 H Direct Bilirubin 0.6 H AST 32 ALT 16 Alkaline Phosphatase 167 H Total Protein 7.1 Albumin 3.5 Lipase 117 H Urine Color Yellow Urine Appearance Clear Urine pH 6.5 Ur Specific [place] 1.015 Urine Protein Negative Urine Glucose (UA) Negative Urine Ketones Negative Urine Blood Small (1+) H Urine Nitrite Negative Ur Leukocyte Esterase Negative Urine RBC 6-10 H Urine WBC 0-5 Ur Squamous Epith Cells 0-2 Urine Bacteria None Seen Hyaline Casts 0-2 Imaging Radiologist's Impressions: Impressions Abdomen/Pelvis CT 12/15/22 14:43 IMPRESSION: Cirrhotic-appearing liver. Varices. No ascites. Stable liver lesion found to represent hemangioma MRI. Contracted gallbladder. Gallstones. Question small left renal stone. Fleischner guidelines were followed. Hip/Pelvis X-Ray 12/15/22 17:28 IMPRESSION: Equivocal very subtle nondisplaced fracture of the greater trochanter of the left femur. Further evaluation with a CT could be obtained as clinically indicated. Abdomen Ultrasound 12/15/22 17:31 IMPRESSION: Cholelithiasis with diffuse gallbladder wall thickening and a positive Chatman's sign suggesting acute cholecystitis in the appropriate clinical context. However, the gallbladder wall thickening could also be seen in the setting of hepatocellular disease in this patient with possible cirrhosis when correlated with CT from earlier today. These findings could also be reactive, such as for example in the setting of acute pancreatitis, as some degree of mild peripancreatic free fluid is noted on the CT from same day. Degenerative indicated further evaluation with a nuclear medicine study could be obtained. Hip CT 12/15/22 20:04 IMPRESSION: 1. No fracture or malalignment. Mild degenerative changes of the left hip. 2. Small intramuscular lipoma along the anterior margin of the proximal femoral diaphysis. Assessment and Plan (1) Abdominal pain: Status: Acute Plan Pt is a 57-year-old male with a PMH significant for?HTN, liver cirrhosis, and insulin-dependent diabetes who presents to the ED with?abdominal pain and bloating. Abdominal pain Patient complains of diffuse lower abdominal pain, primarily tender in suprapubic and right side on physical examination Patient also complaining of newly uncontrollable blood sugars for the past 2 weeks Abdominal ultrasound found evidence for possible cholecystitis versus acute pancreatitis Will be treated with IV Zosyn Patient will be made NPO IVF Analgesics for pain management General surgery consult Abdominal distension Patient complains of 2 weeks of waxing and waning abdominal distension Etiology unclear, though appears to be gas rather than fluid: No ascites or bowel obstruction on CT, abdominal soft, diffusely tympanic to percussion Diastasis recti noted Diabetes Hold home meds SSI HTN Continue lisinopril Full Code Attending:?Dr. García DVT Prophylaxis: Lovenox Pt will require a hospitalization of at least two nights for treatment of? with . Time Spent With Patient Time: Total time managing care of this patient today ____ minutes. Quality Stroke Does the patient have a stroke diagnosis?: No VTE Prior VTE?: No VTE Risk Level:: Medical - moderate - high VTE Device Contraindication: Treatment Not Indicated VTE Drug Contraindication: N/A - Med Ordered
[2022-12-15 21:51] LABS: Lactic Acid 0.8 mmol/L (0.5-2.0)
[2022-12-15 21:53] LABS: Ethanol < 10 mg/dL
[2022-12-15] MEDS: Enoxaparin Sodium 40 MG/0.4 ML SYRINGE SUBCUT (21:53)
[2022-12-15] MEDS: Piperacillin Sodium/Tazobactam 3.375 GM in 0.9 % Sodium Chloride 50 ML IV (21:53)
[2022-12-15] MEDS: 0.9 % Sodium Chloride 1,000 ML 999 ML IV (21:53)
--- NOTE | 2022-12-15 22:40 | MHC.CM.PN ---
CM met with admitted patient with bed assignment pending. A&Ox4. Speaks Icelandic. Employed. Lives with . Occasionally uses a cane. No services. [employer] x3. Declines HCP at this time. D/C plan: Home without services. Family to transport. CM will follow for discharge needs.
[2022-12-15 22:44] LABS: Amphetamine Screen Urine Not Detected (Not Detect); Barbiturates, Urine Not Detected (Not Detect); Benzodiazepines Screen Urine Not Detected (Not Detect); Cannabinoid Screen Urine Not Detected (Not Detect); Cocaine Screen Urine Not Detected (Not Detect); Fentanyl, urine Not Detected (Not Detect); Opiate Screen Urine Not Detected (Not Detect); Phencyclidine Screen Urine Not Detected (Not Detect)
[2022-12-15 23:58] VITALS: BP 119/52; PULSE 97; RESP 16; TEMP 37.3; O2SAT 97
[2022-12-16] VITALS: BP 137/76; PULSE 73; RESP 20; TEMP 36.3; O2SAT 97
[2022-12-16 00:15] LABS: Glucose, Whole Blood 111 mg/dL (60-115)
--- NOTE | 2022-12-16 00:54 | PC.NURSE ---
late entry: pt states his pain is 0/10, denies any complaints at this time. Pt aware he is going upstairs to a room. Pt resting comfortably, respirations even and unlabored, skin pwd, alert and oriented x4. 20g Iv placed in RAC
[2022-12-16 01:00] VITALS: BMI 28.3
[2022-12-16 04:00] VITALS: BP 126/71; PULSE 67; RESP 16; TEMP 36.3; O2SAT 96
[2022-12-16 04:10] LABS: Estimated Average Glucose 169 mg/dL; Hemoglobin A1c % 7.5 %
[2022-12-16] MEDS: Piperacillin Sodium/Tazobactam 4.5 GM in 0.9 % Sodium Chloride 100 ML IV ×2 (05:06→09:38)
[2022-12-16 06:02] LABS: Glucose, Whole Blood 138 mg/dL (60-115)
[2022-12-16 06:22] LABS: MANUAL DIFF FLAG NO
[2022-12-16 06:37] LABS: Basophils Percent Auto 0.4 % (0-2); Eosinophils Absolute Auto 0.3 X10*3/uL (0.0-0.4); Eosinophils Percent Auto 3.2 % (0-4); Hematocrit 34.7 % (42.0-52.0); Imm Gran Abs Auto 0.03 X10*3/uL (0.00-0.03); Imm Gran Pct Auto 0.3 % (0.0-0.4); Lymphocytes Absolute Auto 1.7 X10*3/uL (1.2-4.9); Lymphocytes Percent Auto 18.7 % (20-40); Mean Corpuscular HGB Conc 31.7 g/dl (31.0-36.0); Mean Corpuscular Hemoglobin 27.4 pg (27.0-33.0); Mean Corpuscular Volume 86.3 fL (80.0-98.0); Monocytes Absolute Auto 1.1 X10*3/uL (0.1-1.2); Monocytes Percent Auto 11.9 % (2-11); Neutrophils Percent Auto 65.5 % (45-73); Platelet Count 189 X10*3/uL (160-400); Red Blood Count 4.02 X10*6/uL (4.60-5.80); Red Cell Distribution Width 13.6 % (11.0-16.0); White Blood Count 9.2 X10*3/uL (4.8-10.8)
[2022-12-16 07:17] LABS: Anion Gap 15 (12-20); Blood Urea Nitrogen 15 mg/dL (9-16); Calcium 8.8 mg/dL (8.4-10.2); Carbon Dioxide 23 mmol/L (22-29); Chloride 108 mmol/L (96-108); Estimated Glomerular Filt Rate > 60; Glucose Random 115 mg/dL (60-115); Potassium 3.8 mmol/L (3.3-5.1); Sodium 142 mmol/L (135-145)
[2022-12-16] MEDS: 0.9 % Sodium Chloride Flush 3 ML SYRINGE IVFLUSH (07:24)
[2022-12-16 08:00] VITALS: BP 147/73; PULSE 69; RESP 18; TEMP 36.4; O2SAT 96
--- NOTE | 2022-12-16 08:52 | P.PNIM_ITS ---
Subjective Subjective Date of Service: 12/16/22 Interval History: ruq abd pain Physical Exam Vital Signs: Vital Signs: Last Vital Signs Temp 97.4 F 12/16/22 04:00 Pulse 67 12/16/22 04:00 Resp 16 12/16/22 04:00 BP 126/71 12/16/22 04:00 Pulse Ox 96 12/16/22 04:00 O2 Del Method Room Air 12/16/22 04:00 BMI result Body Mass Index 28.3 General: AO X 3, no acute distress Resp: CTA bilateral, no accessory muscles used CVS: S1,S2,RRR GI: soft, ruqtender, non distended Neuro: motor grossly intact, alert Psych: appropriate affect, appropriate insight Objective Data Active Medications Acetaminophen (Acetaminophen 325 Mg Tablet) 650 mg PO Q6H PRN PRN Reason: Pain, Mild (Pain Scale 1-3) Enoxaparin Sodium (Enoxaparin Sodium 40 Mg/0.4 Ml Syringe) 40 mg SUBCUT Q24H [facility] Last Admin: 12/15/22 21:53 Dose: 40 mg Documented By: DANIELLE Glucose (Glucose Gel 15 Gm Gel..Gram.) 15 gm PO Q15M PRN; Protocol PRN Reason: per Hypoglycemia Standing Ord. Piperacillin Sod/Tazobactam (Sod 4.5 gm/ Sodium Chloride) 100 mls @ 200 mls/hr IV Q6H [facility] Last Infusion: 12/16/22 06:03 Dose: 0 mls/hr Documented By: ELIZABETH Dextrose (D10) 250 mls @ 750 mls/hr IV Q15M PRN; Protocol PRN Reason: per Hypoglycemia Standing Ord. Insulin Human Lispro (Insulin Lispro 100 Unit/Ml 3 Ml Vial) 0 unit SUBCUT Q6H [facility]; Protocol Last Admin: 12/16/22 06:05 Dose: Not Given Documented By: ELIZABETH Non-Admin Reason: No Insulin Coverage Lisinopril (Lisinopril 40 Mg Tablet) 40 mg PO DAILY [facility]; Protocol Melatonin (Melatonin 3 Mg Tablet) 6 mg PO BEDTIME PRN PRN Reason: Insomnia Morphine Sulfate (Morphine Sulfate 4 Mg/Ml Cartridge) 2 mg IVPUSH Q6H PRN; Protocol PRN Reason: Pain, Severe (Pain Scale 7-10) Ondansetron HCl (Ondansetron Hcl 4 Mg/2 Ml Vial) 4 mg IVPUSH Q8H PRN PRN Reason: Nausea and Vomiting Pharmacy Consult (Consult Rx Perform Med Rec) 1 each MISCELLANE ONCE PRN PRN Reason: Consult order Sodium Chloride (0.9 % Sodium Chloride Flush 3 Ml Syringe) 3 ml IVFLUSH QSHIFT [facility] Last Admin: 12/16/22 07:24 Dose: 3 ml Documented By: TAMMIE Labs 12/16/22 05:41 12/16/22 05:41 Labs: Laboratory Results - last 24 hr 12/15/22 12/15/22 12/15/22 14:17 14:17 14:17 MCV 86.4 MCH 27.3 MCHC 31.6 RDW 13.7 Plt Count 222 MPV 9.5 Immature Gran % (Auto) 0.4 Neut % (Auto) 74.2 H Lymph % (Auto) 14.2 L [place]ke[place] % (Auto) 9.6 Eos % (Auto) 1.2 Baso % (Auto) 0.4 Lymph # (Auto) 1.6 [place]ke[place] # (Auto) 1.1 Eos # (Auto) 0.1 Baso # (Auto) 0.1 Abs Immat Gran (auto) 0.05 H Absolute Neuts (auto) 8.4 H Absolute Nucleated RBC 0.000 Nucleated RBC % (auto) 0.0 Anion Gap 12 Estim Creat Clear Calc 99.3 Estimated GFR > 60 POC Glucose Random Glucose 171 H Estimat Average Glucose 169 Hemoglobin A1c % 7.5 Lactic Acid Calcium 9.5 Total Bilirubin 1.4 H Direct Bilirubin 0.6 H AST 32 ALT 16 Alkaline Phosphatase 167 H Total Protein 7.1 Albumin 3.5 Lipase 117 H Urine Color Urine Appearance Urine pH Ur Specific [place] Urine Protein Urine Glucose (UA) Urine Ketones Urine Blood Urine Nitrite Ur Leukocyte Esterase Urine RBC Urine WBC Ur Squamous Epith Cells Urine Bacteria Hyaline Casts Urine Opiates Screen Urine Fentanyl Screen Ur Barbiturates Screen Ur Phencyclidine Scrn Ur Amphetamines Screen U Benzodiazepines Scrn Urine Cocaine Screen U Marijuana (THC) Screen Ethyl Alcohol 12/15/22 12/15/22 12/15/22 14:21 21:32 21:32 MCV MCH MCHC RDW Plt Count MPV Immature Gran % (Auto) Neut % (Auto) Lymph % (Auto) [place]ke[place] % (Auto) Eos % (Auto) Baso % (Auto) Lymph # (Auto) Mckean # (Auto) Eos # (Auto) Baso # (Auto) Abs Immat Gran (auto) Absolute Neuts (auto) Absolute Nucleated RBC Nucleated RBC % (auto) Anion Gap Estim Creat Clear Calc Estimated GFR POC Glucose Random Glucose Estimat Average Glucose Hemoglobin A1c % Lactic Acid 0.8 Calcium Total Bilirubin Direct Bilirubin AST ALT Alkaline Phosphatase Total Protein Albumin Lipase Urine Color Yellow Urine Appearance Clear Urine pH 6.5 Ur Specific [place] 1.015 Urine Protein Negative Urine Glucose (UA) Negative Urine Ketones Negative Urine Blood Small (1+) H Urine Nitrite Negative Ur Leukocyte Esterase Negative Urine RBC 6-10 H Urine WBC 0-5 Ur Squamous Epith Cells 0-2 Urine Bacteria None Seen Hyaline Casts 0-2 Urine Opiates Screen Urine Fentanyl Screen Ur Barbiturates Screen Ur Phencyclidine Scrn Ur Amphetamines Screen U Benzodiazepines Scrn Urine Cocaine Screen U Marijuana (THC) Screen Ethyl Alcohol < 10 12/15/22 12/16/22 12/16/22 22:29 00:01 05:41 MCV 86.3 MCH 27.4 MCHC 31.7 RDW 13.6 Plt Count 189 MPV 10.0 Immature Gran % (Auto) 0.3 Neut % (Auto) 65.5 Lymph % (Auto) 18.7 L Mckean % (Auto) 11.9 H Eos % (Auto) 3.2 Baso % (Auto) 0.4 Lymph # (Auto) 1.7 Mckean # (Auto) 1.1 Eos # (Auto) 0.3 Baso # (Auto) 0.0 Abs Immat Gran (auto) 0.03 Absolute Neuts (auto) 6.0 Absolute Nucleated RBC 0.000 Nucleated RBC % (auto) 0.0 Anion Gap Estim Creat Clear Calc Estimated GFR POC Glucose 111 Random Glucose Estimat Average Glucose Hemoglobin A1c % Lactic Acid Calcium Total Bilirubin Direct Bilirubin AST ALT Alkaline Phosphatase Total Protein Albumin Lipase Urine Color Urine Appearance Urine pH Ur Specific [place] Urine Protein Urine Glucose (UA) Urine Ketones Urine Blood Urine Nitrite Ur Leukocyte Esterase Urine RBC Urine WBC Ur Squamous Epith Cells Urine Bacteria Hyaline Casts Urine Opiates Screen Not Detected Urine Fentanyl Screen Not Detected Ur Barbiturates Screen Not Detected Ur Phencyclidine Scrn Not Detected Ur Amphetamines Screen Not Detected U Benzodiazepines Scrn Not Detected Urine Cocaine Screen Not Detected U Marijuana (THC) Screen Not Detected Ethyl Alcohol 12/16/22 12/16/22 05:41 05:57 MCV MCH MCHC RDW Plt Count MPV Immature Gran % (Auto) Neut % (Auto) Lymph % (Auto) [place] % (Auto) Eos % (Auto) Baso % (Auto) Lymph # (Auto) Mckean # (Auto) Eos # (Auto) Baso # (Auto) Abs Immat Gran (auto) Absolute Neuts (auto) Absolute Nucleated RBC Nucleated RBC % (auto) Anion Gap 15 Estim Creat Clear Calc 121.0 Estimated GFR > 60 POC Glucose 138 H Random Glucose 115 Estimat Average Glucose Hemoglobin A1c % Lactic Acid Calcium 8.8 D Total Bilirubin Direct Bilirubin AST ALT Alkaline Phosphatase Total Protein Albumin Lipase Urine Color Urine Appearance Urine pH Ur Specific [place] Urine Protein Urine Glucose (UA) Urine Ketones Urine Blood Urine Nitrite Ur Leukocyte Esterase Urine RBC Urine WBC Ur Squamous Epith Cells Urine Bacteria Hyaline Casts Urine Opiates Screen Urine Fentanyl Screen Ur Barbiturates Screen Ur Phencyclidine Scrn Ur Amphetamines Screen U Benzodiazepines Scrn Urine Cocaine Screen U Marijuana (THC) Screen Ethyl Alcohol Assessment and Plan (1) Abdominal pain: Status: Acute Plan 57M PMH liver cirrhosis (SALGUERO vs ETOH), HTN, DM, presented with ruq abd pain acute cholecystitis iv zosyn gen surg eval liver cirrhosis with varices on imaging etoh cessation outpatient GI DM insulin htn lisinopril dvt prophylaxis - lovenox full code reason for continued hospitalization:ongoing pain, ?surgery prior to dc Time Spent With Patient Time: Total time managing care of this patient today ____ minutes. Quality Stroke Does the patient have a stroke diagnosis?: No VTE Prior VTE?: No VTE Risk Level:: Medical - moderate - high VTE Device Contraindication: Treatment Not Indicated VTE Drug Contraindication: N/A - Med Ordered
[2022-12-16] MEDS: lisinopriL 40 MG TABLET PO (09:38)
--- NOTE | 2022-12-16 09:48 | PM.CNGS ---
History of Present Illness Consult details Consult date: 12/16/22 Narrative: 57M referred for gallstones. He was admitted via the ED last night for abdominal discomfort. he says he has had some sensation of bloating for several weeks. He actually is seeing GI as an outpatient witha diagnosis of SALGUERO, and alcohol use. He actually denies pain on the RUQ. He says his pain was mostly on the lower abdomen and the left hip. He says this was mild. He denies any nausea or vomitting. He admits to regularly drkining alcohol but claims his last drink was 4 days ago. Currently, he denies abdominal pain and says he feels much better. Review of Systems Constitutional: Constitutional: Denies chills and Denies fever(s) Cardiovascular: Cardiovascular: Denies chest pain, Denies dyspnea and Denies dyspnea on exertion Respiratory: Respiratory: Denies cough, Denies dyspnea and Denies dyspnea on exertion Gastrointestinal: Gastrointestinal: Denies hematochezia and Denies change in bowel habits Genitourinary: Genitourinary: Denies hematuria and Denies difficulty urinating Musculoskeletal: Musculoskeletal: Denies back pain and Denies limited range of motion Neurologic: Denies focal weakness and Denies convulsions Psychiatric: Psychiatric: Denies depression and Denies mood swings PMFSH Past Medical History Medical History (Updated 12/16/22 @ 09:54 by Brijesh Shnaks MD) Arthritis Atherosclerotic cardiovascular disease Depression Essential hypertension Fatty liver Fibromyalgia Gallstone Hyperlipidemia, unspecified SALGUERO (nonalcoholic steatohepatitis) Palpitations Type 2 diabetes mellitus with unspecified complications Family History Family History Father Diabetes Mother No problems noted. Surgical History Surgical History History of ankle surgery History of colonoscopy Hx of endoscopy Social History Social History Household Members: Spouse Housing: House Do you presently have visiting nurse or other home services: No Alcohol intake: current Alcohol intake frequency: a few times a week Patient Tobacco Use Status: Never used Tobacco service: No Current occupational status: employed Current occupation: [employer] Meds Allergies Allergy/AdvReac Type Severity Reaction Status Date / Time shrimp Allergy Difficulty Verified 12/16/22 06:16 Breathing atorvastatin [ATORVASTATIN] AdvReac Unknown elevated Verified 12/15/22 14:02 LFTs Active Medications: Current Medications Acetaminophen (Acetaminophen 325 Mg Tablet) 650 mg PO Q6H PRN PRN Reason: Pain, Mild (Pain Scale 1-3) Enoxaparin Sodium (Enoxaparin Sodium 40 Mg/0.4 Ml Syringe) 40 mg SUBCUT Q24H [facility] Last Admin: 12/15/22 21:53 Dose: 40 mg Glucose (Glucose Gel 15 Gm Gel..Gram.) 15 gm PO Q15M PRN; Protocol PRN Reason: per Hypoglycemia Standing Ord. Piperacillin Sod/Tazobactam (Sod 4.5 gm/ Sodium Chloride) 100 mls @ 200 mls/hr IV Q6H [facility] Last Admin: 12/16/22 09:38 Dose: 200 mls/hr Dextrose (D10) 250 mls @ 750 mls/hr IV Q15M PRN; Protocol PRN Reason: per Hypoglycemia Standing Ord. Insulin Human Lispro (Insulin Lispro 100 Unit/Ml 3 Ml Vial) 0 unit SUBCUT Q6H [facility]; Protocol Last Admin: 12/16/22 06:05 Dose: Not Given Lisinopril (Lisinopril 40 Mg Tablet) 40 mg PO DAILY [facility]; Protocol Last Admin: 12/16/22 09:38 Dose: 40 mg Melatonin (Melatonin 3 Mg Tablet) 6 mg PO BEDTIME PRN PRN Reason: Insomnia Morphine Sulfate (Morphine Sulfate 4 Mg/Ml Cartridge) 2 mg IVPUSH Q6H PRN; Protocol PRN Reason: Pain, Severe (Pain Scale 7-10) Ondansetron HCl (Ondansetron Hcl 4 Mg/2 Ml Vial) 4 mg IVPUSH Q8H PRN PRN Reason: Nausea and Vomiting Pharmacy Consult (Consult Rx Perform Med Rec) 1 each MISCELLANE ONCE PRN PRN Reason: Consult order Sodium Chloride (0.9 % Sodium Chloride Flush 3 Ml Syringe) 3 ml IVFLUSH QSHIFT [facility] Last Admin: 12/16/22 07:24 Dose: 3 ml Home Medications Medication Instructions Recorded Confirmed Last Taken Type cholecalciferol (vitamin D3) 50 50 mcg PO DAILY 05/26/20 12/15/22 12/15/22 History mcg (2,000 unit) capsule insulin degludec 100 unit/mL (3 13 unit subcut BEDTIME 1112/15/22 12/14/22 History mL) subcutaneous pen (Tresiba FlexTouch U-100 insulin) insulin lispro 100 unit/mL 1 sliding scale dose subcut TIDAC 05/26/20 12/15/22 12/15/22 History subcutaneous pen (Humalog KwikPen (U-100) Insulin) lisinopril 40 mg tablet 40 mg PO DAILY 12/15/22 12/15/22 12/15/22 History Physical Exam Vital Signs: Vital Signs: Last Vital Signs Temp 97.6 F 12/16/22 08:00 Pulse 69 12/16/22 08:00 Resp 18 12/16/22 08:00 BP 147/73 H 12/16/22 08:00 Pulse Ox 96 12/16/22 08:00 O2 Del Method Room Air 12/16/22 08:00 BMI result Body Mass Index 28.3 Const: General: comfortable and no acute distress Orientation/consciousness: patient oriented x3 Neck: Neck: Yes no lymphadenopathy Resp: Auscultation: clear to auscultation bilaterally Cardio: Rhythm: regular rhythm GI: Palpation (GI): Soft to palpation, nontender and no guarding Neuro: General: patient oriented x3 Results Labs 12/16/22 05:41 12/16/22 05:41 Labs: Abnormal lab results 12/15/22 12/15/22 12/15/22 Range/Units 14:17 14:17 14:21 WBC 11.3 H (4.8-10.8) X10*3/uL RBC 4.33 L (4.60-5.80) X10*6/uL Hgb 11.8 L (14.0-18.0) g/dl Hct 37.4 L (42.0-52.0) % Neut % (Auto) 74.2 H (45-73) % Lymph % (Auto) 14.2 L (20-40) % [place] % (Auto) (2-11) % Abs Immat Gran (auto) 0.05 H (0.00-0.03) X10*3/uL Absolute Neuts (auto) 8.4 H (2.0-8.3) x10*3/uL BUN 19 H (9-16) mg/dL POC Glucose (60-115) mg/dL Random Glucose 171 H (60-115) mg/dL Total Bilirubin 1.4 H (0.0-1.0) mg/dL Direct Bilirubin 0.6 H (0.0-0.5) mg/dL Alkaline Phosphatase 167 H (39-117) U/L Lipase 117 H (8-78) U/L Urine Blood Small (1+) H (Negative) Urine RBC 6-10 H (0-2) /HPF 12/16/22 12/16/22 Range/Units 05:41 05:57 WBC (4.8-10.8) X10*3/uL RBC 4.02 L (4.60-5.80) X10*6/uL Hgb 11.0 L (14.0-18.0) g/dl Hct 34.7 L (42.0-52.0) % Neut % (Auto) (45-73) % Lymph % (Auto) 18.7 L (20-40) % [place] % (Auto) 11.9 H (2-11) % Abs Immat Gran (auto) (0.00-0.03) X10*3/uL Absolute Neuts (auto) (2.0-8.3) x10*3/uL BUN (9-16) mg/dL POC Glucose 138 H (60-115) mg/dL Random Glucose (60-115) mg/dL Total Bilirubin (0.0-1.0) mg/dL Direct Bilirubin (0.0-0.5) mg/dL Alkaline Phosphatase (39-117) U/L Lipase (8-78) U/L Urine Blood (Negative) Urine RBC (0-2) /HPF Short CBC 12/15/22 12/16/22 Range/Units 14:17 05:41 WBC 11.3 H 9.2 (4.8-10.8) X10*3/uL Hgb 11.8 L 11.0 L (14.0-18.0) g/dl Hct 37.4 L 34.7 L (42.0-52.0) % Plt Count 222 189 (160-400) X10*3/uL BMP 12/15/22 12/16/22 14:17 05:41 Sodium 137 142 Potassium 4.2 3.8 Chloride 104 108 Carbon Dioxide 25 23 BUN 19 H 15 Creatinine 0.84 0.69 Calcium 9.5 8.8 D Liver Function 12/15/22 Range/Units 14:17 Total Bilirubin 1.4 H (0.0-1.0) mg/dL Direct Bilirubin 0.6 H (0.0-0.5) mg/dL AST 32 (5-37) U/L ALT 16 (0-40) U/L Alkaline Phosphatase 167 H (39-117) U/L Albumin 3.5 (3.5-5.0) g/dL Urine 12/15/22 Range/Units 14:21 Urine Color Yellow Urine Appearance Clear Urine pH 6.5 (5.0-9.0) Ur Specific [place] 1.015 (1.005-1.025) Urine Protein Negative (Neg-Trace) mg/dL Urine Glucose (UA) Negative (Negative) mg/dL All other labs normal. Assessment and Plan (1) Gallstone: Status: Acute He actually described pain on the lower abdomen and the left hip. He denies RUQ pain. He describes some bloating as well. He drinks alcohol regularly and his lipase was midlyl elevated. I have reviewed his MRI - this gallbladder does not appear distended and this goes against diagnosis of acute cholecystitis. Mild thickening of the GB wall may be seen with nondistension of the GB as well. He does not have Chatman's sign nor RUQ tenderness currently. Clinically, he does not have acute cholecystitis. I would recommend advancing his diet and following his LFTs at this time. Time Spent With Patient Time: Total time managing care of this patient today ____ minutes. Procedures Date of Service Date of Service: 12/25/22
--- NOTE | 2022-12-16 10:07 | P.DS_ITS ---
DS: Providers Provider Date of Service: 12/16/22 Date of admission: 12/15/22 21:19 Primary care physician: Eric Lr PA-C Consults: 12/15/22 21:48 Consult to General Surgery Routine Consulting Provider: [facility] Reason for consultation: cholecystitis/pancreatitis DS: Diagnosis Discharge Diagnosis (1) Gallstone: Status: Acute DS: Summary Hospital Course Hospital Course: from initial hpi: 57-year-old male with a PMH significant for?HTN, liver cirrhosis, and insulin- dependent diabetes who presents to the ED with?abdominal pain and bloating.? Patient states that for the past 2 weeks he has noticed waxing and waning abdominal distension to the point where his belly button will push out.? Patient regularly has 2 bowel movements per day with last bowel movement earlier today. His belly remains soft, feels like gas rather than fluid.? Distension has been accompanied by lower abdominal pain that radiates to his left hip.? At the same time patient has been experiencing uncontrollable blood sugar levels.? States previously his glucose was well controlled, but lately has been jumping up into the 300-400s without any change to diet or medication. Has also had decreased appetite. Patient has long history of abdominal pain and discomfort, has been seeing GI for over 10 years most recently followed by Dr. Garcia.? Patient notes that he does consume alcohol, primarily [place].? Patient does not drink daily and amount fluctuates, though sometimes he drinks a lot.? Patient denies fever, chills, nausea, vomiting, diarrhea.? No chest pain/pressure, palpitations.? Denies shortness of breath. In the ED patient was afebrile but slightly hypertensive 141/83. Labs were significant for leukocytosis of 11.3, H&H of 11.8/37.4, total bilirubin 1.4, alk-phos 167, lipase 117.? Electrolytes within normal limits.? Renal function baseline.? UA negative for UTI.? Ethyl alcohol level pending.? Hip and pelvis x- ray found equivocal very stable nondisplaced fracture of the greater trochanter of the left femur.? CT of hip found no fracture or malalignment but mild degenerative changes of the left hip, and a small intramuscular lipoma along the anterior margin of the proximal femoral diaphysis.? CT?of abdomen and pelvis found a cirrhotic appearing liver with varices and stable liver lesion but no ascites.? Gallbladder was contracted with gallstones. Question of small left r enal stone.? Abdominal ultrasound found cholelithiasis with diffuse gallbladder wall thickening and a positive Chatman's sign suggestive of acute cholecystitis, though gallbladder wall thickening could also be in the setting of hepatocellular disease with possible cirrhosis.? Could also be in the setting of acute pancreatitis as mild peripancreatic free fluid was noted on the CT from today. Pt was treated with acetaminophen, Zosyn, and IVF. Pt will be admitted to the hospital for treatment and further workup of likely acute cholecystitis hospital course: patient was admitted for presumed acute cholecystitis, was treated with iv zosyn. was seen by gen surgery who felt this was unlikely to be acute cholcystits, patient tolerated solids and will be discharged home on empiric 5 days augmentin. for incedental finding of liver cirrhosis with varices he will follow up outpaitent with gi. for DM was conitnued on insulin. for htn continued on lisinopril. patient is feeling better and will be discharged home. Time Spent with Patient Time attestation: Total time managing care of this patient today ____ minutes. Discharge coordination time: Greater than 30 minutes Quality: Safe Use of Opioids Does Pt have an Active Cancer Diagnosis on the Problem List?: No Quality: Stroke Does the patient have a stroke diagnosis?: No Physical Exam Vital Signs: Vital Signs: Last Vital Signs Temp 97.6 F 12/16/22 08:00 Pulse 69 12/16/22 08:00 Resp 18 12/16/22 08:00 BP 147/73 H 12/16/22 08:00 Pulse Ox 96 12/16/22 08:00 O2 Del Method Room Air 12/16/22 08:00 BMI result Body Mass Index 28.3 General: AO X 3, no acute distress Resp: CTA bilateral, no accessory muscles used CVS: S1,S2,RRR GI: soft, non tender, non distended Neuro: motor grossly intact, alert Psych: appropriate affect, appropriate insight DS: Data Data Completed and Pending Labs on day of discharge: Laboratory Results - last 24 hr 12/15/22 12/15/22 12/15/22 14:17 14:17 14:17 WBC 11.3 H RBC 4.33 L Hgb 11.8 L Hct 37.4 L MCV 86.4 MCH 27.3 MCHC 31.6 RDW 13.7 Plt Count 222 MPV 9.5 Immature Gran % (Auto) 0.4 Neut % (Auto) 74.2 H Lymph % (Auto) 14.2 L [place] % (Auto) 9.6 Eos % (Auto) 1.2 Baso % (Auto) 0.4 Lymph # (Auto) 1.6 [place] # (Auto) 1.1 Eos # (Auto) 0.1 Baso # (Auto) 0.1 Abs Immat Gran (auto) 0.05 H Absolute Neuts (auto) 8.4 H Absolute Nucleated RBC 0.000 Nucleated RBC % (auto) 0.0 Sodium 137 Potassium 4.2 Chloride 104 Carbon Dioxide 25 Anion Gap 12 BUN 19 H Creatinine 0.84 Estim Creat Clear Calc 99.3 Estimated GFR > 60 POC Glucose Random Glucose 171 H Estimat Average Glucose 169 Hemoglobin A1c % 7.5 Lactic Acid Calcium 9.5 Total Bilirubin 1.4 H Direct Bilirubin 0.6 H AST 32 ALT 16 Alkaline Phosphatase 167 H Total Protein 7.1 Albumin 3.5 Lipase 117 H Urine Color Urine Appearance Urine pH Ur Specific [place] Urine Protein Urine Glucose (UA) Urine Ketones Urine Blood Urine Nitrite Ur Leukocyte Esterase Urine RBC Urine WBC Ur Squamous Epith Cells Urine Bacteria Hyaline Casts Urine Opiates Screen Urine Fentanyl Screen Ur Barbiturates Screen Ur Phencyclidine Scrn Ur Amphetamines Screen U Benzodiazepines Scrn Urine Cocaine Screen U Marijuana (THC) Screen Ethyl Alcohol 12/15/22 12/15/22 12/15/22 14:21 21:32 21:32 WBC RBC Hgb Hct MCV MCH MCHC RDW Plt Count MPV Immature Gran % (Auto) Neut % (Auto) Lymph % (Auto) [place] % (Auto) Eos % (Auto) Baso % (Auto) Lymph # (Auto) [place] # (Auto) Eos # (Auto) Baso # (Auto) Abs Immat Gran (auto) Absolute Neuts (auto) Absolute Nucleated RBC Nucleated RBC % (auto) Sodium Potassium Chloride Carbon Dioxide Anion Gap BUN Creatinine Estim Creat Clear Calc Estimated GFR POC Glucose Random Glucose Estimat Average Glucose Hemoglobin A1c % Lactic Acid 0.8 Calcium Total Bilirubin Direct Bilirubin AST ALT Alkaline Phosphatase Total Protein Albumin Lipase Urine Color Yellow Urine Appearance Clear Urine pH 6.5 Ur Specific [place] 1.015 Urine Protein Negative Urine Glucose (UA) Negative Urine Ketones Negative Urine Blood Small (1+) H Urine Nitrite Negative Ur Leukocyte Esterase Negative Urine RBC 6-10 H Urine WBC 0-5 Ur Squamous Epith Cells 0-2 Urine Bacteria None Seen Hyaline Casts 0-2 Urine Opiates Screen Urine Fentanyl Screen Ur Barbiturates Screen Ur Phencyclidine Scrn Ur Amphetamines Screen U Benzodiazepines Scrn Urine Cocaine Screen U Marijuana (THC) Screen Ethyl Alcohol < 10 12/15/22 12/16/22 12/16/22 22:29 00:01 05:41 WBC 9.2 RBC 4.02 L Hgb 11.0 L Hct 34.7 L MCV 86.3 MCH 27.4 MCHC 31.7 RDW 13.6 Plt Count 189 MPV 10.0 Immature Gran % (Auto) 0.3 Neut % (Auto) 65.5 Lymph % (Auto) 18.7 L [place] % (Auto) 11.9 H Eos % (Auto) 3.2 Baso % (Auto) 0.4 Lymph # (Auto) 1.7 [place] # (Auto) 1.1 Eos # (Auto) 0.3 Baso # (Auto) 0.0 Abs Immat Gran (auto) 0.03 Absolute Neuts (auto) 6.0 Absolute Nucleated RBC 0.000 Nucleated RBC % (auto) 0.0 Sodium Potassium Chloride Carbon Dioxide Anion Gap BUN Creatinine Estim Creat Clear Calc Estimated GFR POC Glucose 111 Random Glucose Estimat Average Glucose Hemoglobin A1c % Lactic Acid Calcium Total Bilirubin Direct Bilirubin AST ALT Alkaline Phosphatase Total Protein Albumin Lipase Urine Color Urine Appearance Urine pH Ur Specific [place] Urine Protein Urine Glucose (UA) Urine Ketones Urine Blood Urine Nitrite Ur Leukocyte Esterase Urine RBC Urine WBC Ur Squamous Epith Cells Urine Bacteria Hyaline Casts Urine Opiates Screen Not Detected Urine Fentanyl Screen Not Detected Ur Barbiturates Screen Not Detected Ur Phencyclidine Scrn Not Detected Ur Amphetamines Screen Not Detected U Benzodiazepines Scrn Not Detected Urine Cocaine Screen Not Detected U Marijuana (THC) Screen Not Detected Ethyl Alcohol 12/16/22 12/16/22 05:41 05:57 WBC RBC Hgb Hct MCV MCH MCHC RDW Plt Count MPV Immature Gran % (Auto) Neut % (Auto) Lymph % (Auto) [place] % (Auto) Eos % (Auto) Baso % (Auto) Lymph # (Auto) [place] # (Auto) Eos # (Auto) Baso # (Auto) Abs Immat Gran (auto) Absolute Neuts (auto) Absolute Nucleated RBC Nucleated RBC % (auto) Sodium 142 Potassium 3.8 Chloride 108 Carbon Dioxide 23 Anion Gap 15 BUN 15 Creatinine 0.69 Estim Creat Clear Calc 121.0 Estimated GFR > 60 POC Glucose 138 H Random Glucose 115 Estimat Average Glucose Hemoglobin A1c % Lactic Acid Calcium 8.8 D Total Bilirubin Direct Bilirubin AST ALT Alkaline Phosphatase Total Protein Albumin Lipase Urine Color Urine Appearance Urine pH Ur Specific [place] Urine Protein Urine Glucose (UA) Urine Ketones Urine Blood Urine Nitrite Ur Leukocyte Esterase Urine RBC Urine WBC Ur Squamous Epith Cells Urine Bacteria Hyaline Casts Urine Opiates Screen Urine Fentanyl Screen Ur Barbiturates Screen Ur Phencyclidine Scrn Ur Amphetamines Screen U Benzodiazepines Scrn Urine Cocaine Screen U Marijuana (THC) Screen Ethyl Alcohol Discharge Plan Discharge Anticipated Discharge Date/Time: 12/16/22 10:05 Patient Disposition: Home, Self-Care Discharge Diagnosis: abd pain Referrals: Eric Lr PA-C [Primary Care Provider] - 1 Week Harry Garcia MD [Physician] - 1 Week Brijesh Shanks MD [Physician] - 1 Week Discharge Medications: New amoxicillin-pot clavulanate 875-125 mg tablet 1 tab PO Q12H Qty: 10 0RF Continued lisinopril 40 mg tablet 40 mg PO DAILY cholecalciferol (vitamin D3) 50 mcg (2,000 unit) capsule 50 mcg PO DAILY insulin lispro [Humalog KwikPen Insulin] 100 unit/mL insulin pen 1 sliding scale dose subcut TIDAC Tresiba FlexTouch U-100 100 unit/mL (3 mL) insulin pen 13 unit subcut BEDTIME tadalafil 5 mg tablet 5 mg PO DAILY 90 Days Qty: 90 1RF Discharge Orders: Discharge Order (Routine); Ordered 12/16/22 Ordered By: Danny Hernandez Diet: Advance to usual diet Activity on Discharge: As tolerated Stand Alone Forms: Patient Portal Discharge page Care Plan Goals: recovery Health Concerns: biliary stone, cirrhosis Plan of Treatment: follow up with surgery and gi, 5 more days augmentin Assessment: see above
[2022-12-16 11:44] LABS: Glucose, Whole Blood 294 mg/dL (60-115)
[2022-12-16] MEDS: Insulin Lispro 100 UNIT/ML 3 ML VIAL SUBCUT (11:54)
--- NOTE | 2022-12-16 11:56 | MHC.CM.PN ---
pt dcd home no skilled servcies ordered by
== END 2022-12-16 13:25 | disposition home or self-care (01) ==
LOC: HO.ED 21:19 → HO.EDOVER 21:26 → HO.S3 23:03
PROVIDERS: Physician Assistant Medical; Admitting Provider Student in an Organized Health Care Education/Training Program; Emergency Provider Student in an Organized Health Care Education/Training Program; PCP Physician Assistant; Visit Provider Internal Medicine
DX: K80.20 Calculus of gallbladder without cholecystitis without obstruction (principal); K74.69 Other cirrhosis of liver; D17.9 Benign lipomatous neoplasm, unspecified; E11.9 Type 2 diabetes mellitus without complications; K75.81 Nonalcoholic steatohepatitis (NASH); I25.10 Atherosclerotic heart disease of native coronary artery without angina pectoris; E78.5 Hyperlipidemia, unspecified; M79.7 Fibromyalgia; I10 Essential (primary) hypertension; Z79.4 Long term (current) use of insulin; Z79.899 Other long term (current) drug therapy
CPT/HCPCS: 36415; 73502; 73700; 74176; 74181; 76705; 80048; 80076; 80307; 81001; 82947; 83036; 83605; 83690; 85025; 87040; 99221; 99285; J1650; J2543

== ENCOUNTER → 2023-01-01 15:05 | Outpatient (BNVA) | payer MEDICAID, SELFPAY | PROVIDERS: Visit Provider Internal Medicine Gastroenterology | DX: R10.9 Unspecified abdominal pain (principal); K42.9 Umbilical hernia without obstruction or gangrene | CPT/HCPCS: 99212 ==

== ENCOUNTER 2023-01-17 10:14 | Outpatient (AMB) | payer MEDICAID, SELFPAY ==
--- NOTE | 2023-01-17 10:16 | MHC.OFFVIS ---
Intake Vital Signs 01/17/23 10:19 Height 5 ft 7 in Weight 180 lb BMI 28.2 BP 128/64 Blood Pressure Location Rt brachial Position Sitting Pulse 77 Intake Visit Reasons: Umbilical hernia Intake Note: Patient here for umbilical hernia and gallbladder stones. Had abd u/s while @ ER in December. 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 recurrent biliary colic ,2. symptomatic umbilical hernia Patient has had multiple episodes of right upper quadrant pain radiating around to back. He has had recent ER visit because of this. Question of an episode of biliary pancreatitis. He has been followed also by GI for chronic abdominal pain and has been found to have a symptomatic umbilical hernia. Chart was reviewed patient evaluated. Several medical comorbidities. [facility] Medical History Arthritis Atherosclerotic cardiovascular disease Depression Essential hypertension Fatty liver Fibromyalgia Gallstone Hyperlipidemia, unspecified SALGUERO (nonalcoholic steatohepatitis) Palpitations Type 2 diabetes mellitus with unspecified complications Surgical History History of ankle surgery History of colonoscopy Hx of endoscopy Family History Father Diabetes Mother No problems noted. Social History Household Members: Spouse Housing: House Do you presently have visiting nurse or other home services: No Alcohol intake: current Alcohol intake frequency: a few times a week Patient Tobacco Use Status: Never used Tobacco service: No Current occupational status: employed Current occupation: [employer] Physical Exam Vital Signs: Last Vital Signs Pulse 77 01/17/23 10:19 BP 128/64 01/17/23 10:19 BMI result Body Mass Index 28.2 Chest Other: Chest breath sounds bilaterally, HS 1 in 2 GI Other: Abdomen soft, benign. Patient was examined both supine and standing with Valsalva. Bilateral groin exam negative. Genitalia within normal limits. Approximately 2 cm umbilical hernia, reducible. Assessment & Plan Assessment & Plan (1) Umbilical hernia: Code(s): K42.9 - Umbilical hernia without obstruction or gangrene (2) Gallstone: Code(s): K80.20 - Calculus of gallbladder without cholecystitis without obstruction Plan Risks, benefits, alternatives of laparoscopic possible open cholecystectomy along with umbilical hernia repair at the same sitting were reviewed the patient and included but not limited to bleeding, infection, recurrence of hernia, numbness, pain, scarring, bowel or bile duct injury or leak and the patient wishes to proceed. All questions were answered. Arrangements will be made for this. Coding Level of Care Code New Pt Level 5 (73509) Diagnoses Umbilical hernia K42.9 Gallstone K80.20
[2023-01-17 10:19] VITALS: BP 128/64; PULSE 77; BMI 28.2
== END 2023-01-17 10:32 | disposition home or self-care (01) ==
PROVIDERS: PCP Registered Nurse; Referring Provider Internal Medicine Gastroenterology; Visit Provider Surgery
DX: K42.9 Umbilical hernia without obstruction or gangrene (principal); K80.20 Calculus of gallbladder without cholecystitis without obstruction
CPT/HCPCS: 99204

== ENCOUNTER → 2023-01-17 10:14 | Outpatient (BNVA) | payer MEDICAID, SELFPAY | PROVIDERS: PCP Registered Nurse; Referring Provider Internal Medicine Gastroenterology; Visit Provider Surgery | DX: K42.9 Umbilical hernia without obstruction or gangrene (principal); K80.20 Calculus of gallbladder without cholecystitis without obstruction | CPT/HCPCS: 99202 ==

== ENCOUNTER 2023-01-19 09:42 | Outpatient (AMB) | payer MEDICAID, SELFPAY ==
[2023-01-19 09:46] VITALS: BP 140/80; PULSE 78; BMI 28.0
--- NOTE | 2023-01-19 09:46 | A.OFFVIS_ITS ---
Intake Vital Signs 01/19/23 09:46 Height 5 ft 7 in Weight 178 lb 9.191 oz BMI 28.0 BP 140/80 H Blood Pressure Location Lt brachial Position Sitting Pulse 78 Intake Visit Reasons: gallbladder and umbillical hernia 453188 Intake Note: gallbladder and umbilical hernia Reference Data Expert Required: No Allergies shrimp Allergy (Verified 01/19/23 09:58) Difficulty Breathing atorvastatin [ATORVASTATIN] Adverse Reaction (Unknown, Verified 01/19/23 09:58) elevated LFTs Medication List - Last Reconciled 01/19/23 by Elaine Sultana NP-C cholecalciferol (vitamin D3) 50 mcg PO DAILY insulin degludec (Tresiba FlexTouch U-100 insulin) 13 units subcut BEDTIME insulin lispro (Humalog KwikPen (U-100) Insulin) 1 sliding scale dose subcut TIDAC lidocaine 5% 0 patches topical lisinopril 40 mg PO DAILY pantoprazole 40 mg PO DAILY simethicone (Gas Relief (simethicone)) 125 mg PO TID PRN HPI gallbladder and umbillical hernia 165324 HPI Details Steven is a 57-year-old male with past medical history of hypertension, hyperlipidemia, diabetes, nonobstructive CAD who presents for follow-up from preop evaluation. His last prior visit to our office was 11/01/2021. Today he reports that he will be having umbilical hernia repair and cholecystectomy in the near future. He reports having chest discomfort at times when at work. He has difficulty describing it and feels that it may be related to stress. He does lots of heavy lifting at his to different jobs. His activity level is over 4 Mets. No shortness of breath with activity. No heart palpitations, dizziness, presyncope, syncope, falls, PND, orthopnea or edema. He has not been taking aspirin due to prior reports of GI symptoms. He does not take statin due to elevated LFTs in the past. [facility] Medical History Arthritis Atherosclerotic cardiovascular disease Depression Essential hypertension Fatty liver Fibromyalgia Gallstone Hyperlipidemia, unspecified SALGUERO (nonalcoholic steatohepatitis) Palpitations Type 2 diabetes mellitus with unspecified complications Surgical History History of ankle surgery History of colonoscopy Hx of endoscopy Family History Father Diabetes Mother No problems noted. Social History Household Members: Spouse Housing: House Do you presently have visiting nurse or other home services: No Alcohol intake: current Alcohol intake frequency: a few times a week Patient Tobacco Use Status: Never used Tobacco service: No Current occupational status: employed Current occupation: [employer] Review of Systems Const Details: high stress levels at work All systems reviewed & are unremarkable except as noted in HPI and below ENT Reports dizziness Card Reports chest pain, Denies chest pain at rest, Denies chest pain with activity, Denies rapid heart rate, Denies pedal edema, Denies edema, Denies leg edema, Denies lightheadedness, Denies palpitations, Denies dyspnea, Denies dyspnea on exertion and Denies orthopnea Resp Denies cough, Denies dyspnea and Denies dyspnea on exertion GI Denies hematochezia and Denies change in stool character Musc Denies abnormal gait, Reports limited range of motion, Reports muscle cramps, Denies muscle weakness, Denies numbness, Denies radiating pain into limb, Denies stiffness and Denies tingling Neuro Denies abnormal gait, Reports dizziness, Denies numbness and Denies tingling Endo Denies palpitations Physical Exam Vital Signs: Last Vital Signs Pulse 78 01/19/23 09:46 BP 140/80 H 01/19/23 09:46 BMI result Body Mass Index 28.0 Const General: cooperative, healthy appearing, comfortable and no acute distress Orientation/consciousness: patient oriented x3 Neck Neck: Yes normal visual inspection Resp Effort & Inspection: normal respiratory effort Auscultation: clear to auscultation bilaterally, no crackles, no rales, no rhonchi and no wheezes Cardio Jugular venous distension: no JVD Rate: regular rate Rhythm: regular rhythm Heart sounds: S1 normal heart sound present, S2 normal heart sound present, no gallops, no murmurs and no rubs Neuro General: patient oriented x3 Extrem General: Yes normal to inspection Psych Appearance: grossly normal Mental Status: mental status grossly normal Speech and movement: Normal speech and movement present Office Procedures EKG Details: today, read by me, normal sinus rhythm, septal Q-wave noted, no acute ST or T- wave abnormalities, rate 78, QTC 433 millisecond [id number], Complete Assessment & Plan Assessment & Plan (1) Atherosclerotic cardiovascular disease: Code(s): I25.10 - Atherosclerotic heart disease of [place] coronary artery without angina pectoris Plan: patient with known history of nonobstructive coronary artery disease. His last prior visit to our office was 11/01/2021. presenting today for preop clearance for upcoming abdominal surgery. He does report Vague intermittent chest discomfort when at work in the setting of high stress situations. His EKG today does show septal Q-wave which different than prior EKG, rate 78. Unclear if this is related to body habitus or lead placement. He tells me he has had no hospital admissions for cardiac symptoms in the last year. Prior exercise stress echo done on 11/24/2019 showed exercise 7.8 Mets, no ischemia, lack of systolic thickening in the basal inferior septum and basal inferior region. . This was followed by CTA of the coronary arteries showing LAD had scattered calcifications.? At, the proximal LAD, mild mixed plaque.? Just after the D2 takeoff there is mixed plaque in LAD causing 50% narrowing.? Circumflex had scattered calcifications.? Midportion had prominent calcification.? Cannot exclude high-grade stenosis in that area. Vessel relatively small.? Right coronary artery had mild calcification.? Total coronary artery calcium score 186 . he has been unable to take aspirin due to prior history of GI symptoms. He is unable to tolerate statins due to elevated LFTs. No recent lipid profile for review. May need to start on Repatha going forward to help lower cholesterol levels. Will check fasting lipids in the near future. His current chest symptom is vaguely described. Will perform an exercise stress test to evaluate for ischemic findings and exertional symptoms. With heart murmur noted on examination. Prior echo 11/18/2019 showed EF 55-60%, mild aortic valve increased gradient but no . Will check an echocardiogram. Plan to complete cardiac clearance once test results. are known. Continue on lisinopril. Labs done 12/16/2022 showed creatinine 0.69, potassium 3.8. Signs and symptoms of angina reviewed. Cardiology follow-up 6 months, sooner if needed. (2) Chest discomfort: Code(s): R07.89 - Other chest pain (3) Murmur, cardiac: Code(s): R01.1 - Cardiac murmur, unspecified Plan: systolic murmur noted across right upper and left upper sternal border. Updating echo (4) Essential hypertension: Code(s): I10 - Essential (primary) hypertension Plan: mild elevation, improved on recheck. Continue current lisinopril (5) Preop cardiovascular exam: Code(s): Z01.810 - Encounter for preprocedural cardiovascular examination Plan: preop will be finalized once cardiac testing completed. ETT and echocardiogram are planned Orders: Orders CA stress test Today I25.10 - Atherosclerotic heart disease of [place] coronary artery without angina pectoris, R07.89 - Other chest pain, Z01.810 - Encounter for preprocedural cardiovascular examination CA echo transthoracic complete Today I25.10 - Atherosclerotic heart disease of [place] coronary artery without angina pectoris, R01.1 - Cardiac murmur, unspecified, R07.89 - Other chest pain Coding Level of Care Code Est Pt Level 4 (90483) Diagnoses Atherosclerotic cardiovascular disease I25.10 Chest discomfort R07.89 Murmur, cardiac R01.1 Essential hypertension I10 Preop cardiovascular exam Z01.810 CPT Codes EKG - CPT: 76088-[id number], Complete ([id number]) Time Spent (min) 28 Comment chart review, documentation, interview, assessment
== END 2023-01-19 10:14 | disposition home or self-care (01) ==
PROVIDERS: PCP Registered Nurse; Visit Provider Nurse Practitioner Family
DX: I25.10 Atherosclerotic heart disease of native coronary artery without angina pectoris (principal); R07.89 Other chest pain; R01.1 Cardiac murmur, unspecified; I10 Essential (primary) hypertension; Z01.810 Encounter for preprocedural cardiovascular examination
CPT/HCPCS: 93010; 99214

== ENCOUNTER → 2023-01-19 09:42 | Outpatient (BNVA) | payer MEDICAID, SELFPAY | PROVIDERS: PCP Registered Nurse; Visit Provider Nurse Practitioner Family | DX: Z01.810 Encounter for preprocedural cardiovascular examination (principal); I25.10 Atherosclerotic heart disease of native coronary artery without angina pectoris; I10 Essential (primary) hypertension; R07.89 Other chest pain; R01.1 Cardiac murmur, unspecified | CPT/HCPCS: 93005; 99214 ==

== ENCOUNTER → 2023-01-22 08:30 | Outpatient (REF) | payer MEDICAID, SELFPAY ==
--- NOTE | 2023-01-22 08:35 | CA_ITS ---
Transthoracic Echocardiogram Patient (Last, First, Middle): Steven Stanley, Gender: Male Date of : 1965 Age: 57 Procedure Date: 01/22/2023 Procedure Type: Transthoracic Echocardiogram Location: OP Height: 170.18 cm Weight: 82.56 kg BSA: 1.94 m2 Heart Rate: bpm BP: 140 / 65 mmHg Wash Tub Machine Operator: JOSE Referring MD: Elaine Sultana GAS PUMP ATTENDANT-Masha Clinical Marketing Manager: Michael Sol MD Symptoms: R01.1 - Cardiac murmur, unspecified Study Quality: Fair ECG Rhythm: Sinus Conclusions: - 1. Normal LV systolic function with LVEF of 55-60% with impaired relaxation filling pattern 2. Mildly dilated left atrium 3. Mild aortic stenosis 4. Upper limits of normal ascending aortic size 5. No pericardial effusion Findings Left Ventricle Normal left ventricular size, thickness, and systolic function. The visually estimated ejection fraction is between 55-60%. Spectral Doppler is indicative of an impaired relaxation filling pattern. E/E prime ratio is between 8 and 15 consistent with indeterminate filling pressures. Right Ventricle Normal right ventricular cavity size and systolic function. Atria The left atrium is mildly dilated. Interatrial shunt cannot be excluded. The right atrium is normal in size. Aortic Valve There is mild calcification of the aortic valve. There is mild aortic valve stenosis. The peak aortic gradient is 26 mmHg.The mean gradient is 14 mmHg. The aortic valve area is 1.56 cm2. There is no aortic valve regurgitation. Mitral Valve There is mild anterior and posterior mitral leaflet thickening. There is mild mitral annular calcification. There is trace mitral valve regurgitation. There is no mitral valve stenosis. Pulmonic Valve The pulmonic valve was not well visualized. Tricuspid Valve Likely normal tricuspid valve structure and function. Normal right atrial pressure. Great Vessels The pulmonary artery was not well visualized. Venous The inferior vena cava is normal in size and collapses greater than 50% with inspiration. Pericardium/Pleural There is no evidence of pericardial effusion. Prior Study Comparison Changes noted compared to prior study dated: 11/18/2019. Mild aortic stenosis is present Measurements 2D Linear Measurements IVSd: 1.02 0.6-0.9/0.6-1.0 cm LVIDd: 4.91 3.9-5.3/4.2-5.9 cm LVIDd Index: 2.53 2.4-3.2/2.2-3.1 cm/m2 LVIDs: 3.18 2.0-3.6 cm LVPWd: 1.07 0.7-1.1 cm LA Diam: 3.40 2.7-3.8/3.0-4.0 cm LAIDs Index: 1.75 1.5-2.3 cm/m2 LV Mass: 233.61 67-162/88-224 g LV Mass Index: 120.42 43-95/49-115 g/m2 LVOT Diam: 2.10 3.0+(-)1.3 cm 2D Systolic Function EF 4C: 59.80 >55% EF 2C: 57.70 >55% EF BiP: 57.60 >55% Mitral Valve MV Pk E: 0.73 MV PK A: 0.80 MV Decel Time: 232.00 E/A: 0.90 E'Lateral: 10.60 E'Medial: 6.74 E/E' Med: 10.80 E/E' Lat: 6.90 PHT: 68.00 MVA PHT: 3.24 Decel Travis: 3.14 Aortic Valve AoV Pk Gage: 2.55 AoV Mn Gage: 1.74 AoV VTI: 0.48 AoV Pk Grad: 26.00 Aov Mn Grad: 14.00 GONZALES Cont.VTI: 1.56 LVOT LVOT Pk Gage: 1.00 LVOT Mn Gage: 0.71 LVOT VTI: 0.22 LVOT Pk Grad: 4.00 LVOT Mn Grad: 2.00 LVOT Diam: 2.10 LVOT Area: 3.46 Diastolic Function MV Pk E: 0.73 MV Pk A: 0.80 E/A: 0.90 E'Medial: 6.74 E/E' Med: 10.80 E' Laterial: 10.60 E/E' Lat: 6.90 Right Ventricle TAPSE (mm): 26.70 TVS' Gage: 15.70 Tricuspid Valve RA Press: 3.00 Great Vessels Aorta Sinus of Valsalva: 3.61 2.0-3.[address] Ridge: 2.51 1.7-3.4 cm Ao Asc: 3.60 2.1-3.4 cm Updated in Other Vendor System with Status of Final Michael Sol MD electronically signed on 01/23/2023 8:42:20 AM with status of Final
--- NOTE | 2023-01-22 08:35 | CA_ITS ---
Acquisition Time: 2023-01-22 08:45:51 Total Exercise Time: 00:07:27 Test Indications: CP, CAD, PREOP Medications: SEE H Protocol: GABO Max HR: 160 BPM 98% of Pred: 163 BPM Max BP: 182/070 mmHG Max Work Load: 9.2 METS Exercise stress test exercise 7 min 27 sec of Gabo protocol achieving 98% MPHR, without anginal symptoms, without arrhythmias, with normotensive response to exercise, without EKG changes. Test reviewed with Dr. Sharpe. Referred By: Elaine Sultana Overread By:
== END ==
LOC: HO.CARD 08:30
PROVIDERS: PCP Registered Nurse; Visit Provider Nurse Practitioner Family
DX: Z01.810 Encounter for preprocedural cardiovascular examination (principal); R07.89 Other chest pain; I25.10 Atherosclerotic heart disease of native coronary artery without angina pectoris; R01.1 Cardiac murmur, unspecified
CPT/HCPCS: 93017; 93306

== ENCOUNTER → 2023-01-22 08:35 | Outpatient (BNV) | payer MEDICAID, SELFPAY | PROVIDERS: PCP Registered Nurse; Visit Provider Internal Medicine Cardiovascular Disease | DX: I35.0 Nonrheumatic aortic (valve) stenosis (principal) | CPT/HCPCS: 93306 ==

== ENCOUNTER 2023-02-01 06:00 | Day surgery (SDC) | payer MEDICAID, SELFPAY ==
[2023-01-29 09:33] VITALS: BMI 28.0
--- NOTE | 2023-01-31 09:21 | HO.ANESPROP2 ---
Documented by User: Maame Ames NP 01/31/23 09:29 HPI - Anesthesia Eval Consult details Narrative: 57yo M for Cholecystectomy Laparoscopic,poss open, Hernia Repair Umbilical Cardiac optimized PMFSH Active Problems Active Problems: All Active Problems (Updated 01/29/23 @ 09:32 by Kirsten Little, MICHELLE) Palpitations (Acute) Early satiety (Acute) Nonalcoholic steatohepatitis (SALGUERO) (Acute) RUQ pain (Acute) Essential hypertension (Acute) Liver lesion (Acute) Erectile dysfunction associated with type 2 diabetes mellitus (Acute) Bladder outlet obstruction (Acute) Biliary acute pancreatitis (Acute) Alcohol use (Acute) Greater trochanteric bursitis (Acute) Abdominal pain (Acute) Umbilical hernia (Acute) Murmur, cardiac (Acute) Chest discomfort (Acute) Preop cardiovascular exam (Acute) Gallstone (Acute) Type 2 diabetes mellitus with unspecified complications (Acute) Atherosclerotic cardiovascular disease (Acute) Past Medical History Medical History Arthritis Atherosclerotic cardiovascular disease CAD (coronary artery disease) Depression Essential hypertension Fatty liver Fibromyalgia Gallstone Hyperlipidemia, unspecified SALGUERO (nonalcoholic steatohepatitis) Palpitations Type 2 diabetes mellitus with unspecified complications Family History Family History Father Diabetes Mother No problems noted. Family history of problems with anesthesia: No Surgical History Surgical History History of ankle surgery History of colonoscopy Hx of endoscopy History of Problems with Anesthesia: No Social History Social History Household Members: Spouse Housing: House Are you a primary family day care worker to a significant other at home: No Do you presently have visiting nurse or other home services: No Alcohol intake: current Alcohol intake frequency: a few times a week Patient Tobacco Use Status: Never used Tobacco Use of substances other than those prescribed or required for medical reasons: No Have you been hit, kicked, punched, or otherwise hurt by someone within the past year? If so, by whom?: No Are you DNR?: No Advance Directives: No (states is primary contact) Advance Directives Information Provided: Yes (brochure mailed) Advance Directives on File: No Recently lost weight without trying: No Eating poorly because of decreased appetite: No Nutrition Risks: No Nutritional Risk Poor oral hygiene: No service: No Current occupational status: employed Current occupation: [employer] Meds Allergies Allergy/AdvReac Type Severity Reaction Status Date / Time shrimp Allergy Severe Difficulty Verified 02/01/23 06:07 Breathing atorvastatin [ATORVASTATIN] AdvReac Intermediate elevated Verified 02/01/23 06:07 LFTs Home Medications Medication Instructions Recorded Confirmed Last Taken Type insulin degludec 100 unit/mL (3 13 unit subcut BEDTIME 05/26/20 01/29/23 12/14/22 History mL) subcutaneous pen (Tresiba FlexTouch U-100 insulin) insulin lispro 100 unit/mL 1 sliding scale dose subcut TIDAC 05/26/20 01/29/23 12/15/22 History subcutaneous pen (Humalog KwikPen (U-100) Insulin) lisinopril 40 mg tablet 40 mg PO DAILY 12/15/22 01/29/23 12/15/22 History cholecalciferol (vitamin D3) 50 50 mcg PO DAILY 01/01/23 01/29/23 Unknown History mcg (2,000 unit) tablet lidocaine 5 % topical patch 1 patch topical DAILY 01/01/23 01/29/23 Unknown History Exam Exam Date and Time: January 31, 2023 0921 Height,Weight and Vital Signs: Height 5 ft 7 in Weight 81.193 kg Pertinent Lab Results Pertinent Lab Results: Laboratory Tests 12/16/22 12/16/22 05:41 05:41 WBC 9.2 Hgb 11.0 L Hct 34.7 L Plt Count 189 Sodium 142 Potassium 3.8 Chloride 108 Carbon Dioxide 23 BUN 15 Creatinine 0.69 Narrative Narrative: EKG 01/2023 normal sinus rhythm, septal Q-wave noted, no acute ST or T-wave abnormalities, rate 78,? QTC 433 millisecond ECHO 01/2023 Conclusions: - 1. Normal LV systolic function with LVEF of 55-60% with? impaired relaxation filling pattern? 2. Mildly dilated left atrium? 3. Mild aortic stenosis? 4. Upper limits of normal ascending aortic size? 5. No pericardial effusion Exercise stress 01/2023 Protocol: LAMONT ? Max HR: 160 BPM? 98% of? Pred: 163 BPM Max BP: 182/070 mmHG Max Work Load: 9.2 METS ? Exercise stress test exercise 7 min 27 sec of Lamont protocol achieving 98% MPHR, ?without anginal symptoms, without arrhythmias, with normotensive response to ?exercise, without EKG changes. Test reviewed with Dr. Sharpe. Assessment and Plan Assessment Anesthesia Assessment: Chart Reviewed Final Anesthetic Review Family History of Problems with Anesthesia: No History of Problems with Anesthesia: No Documented by User: Shanelle Traylor MD 02/01/23 07:55 [facility] Past Medical History Medical History Arthritis Atherosclerotic cardiovascular disease CAD (coronary artery disease) Depression Essential hypertension Fatty liver Fibromyalgia Gallstone Hyperlipidemia, unspecified SALGUERO (nonalcoholic steatohepatitis) Palpitations Type 2 diabetes mellitus with unspecified complications Family History Family History Father Diabetes Mother No problems noted. Surgical History Surgical History History of ankle surgery History of colonoscopy Hx of endoscopy Social History Social History Household Members: Spouse Housing: House Are you a primary family day care worker to a significant other at home: No Do you presently have visiting nurse or other home services: No Alcohol intake: current Alcohol intake frequency: a few times a week Patient Tobacco Use Status: Never used Tobacco Use of substances other than those prescribed or required for medical reasons: No Have you been hit, kicked, punched, or otherwise hurt by someone within the past year? If so, by whom?: No Are you DNR?: No Advance Directives: No (states is primary contact) Advance Directives Information Provided: Yes (brochure mailed) Advance Directives on File: No Recently lost weight without trying: No Eating poorly because of decreased appetite: No Nutrition Risks: No Nutritional Risk Poor oral hygiene: No service: No Current occupational status: employed Current occupation: [employer] Meds Allergies Allergy/AdvReac Type Severity Reaction Status Date / Time shrimp Allergy Severe Difficulty Verified 02/01/23 06:07 Breathing atorvastatin [ATORVASTATIN] AdvReac Intermediate elevated Verified 02/01/23 06:07 LFTs Home Medications Medication Instructions Recorded Confirmed Last Taken Type insulin degludec 100 unit/mL (3 13 unit subcut BEDTIME 05/26/20 01/29/23 12/14/22 History mL) subcutaneous pen (Tresiba FlexTouch U-100 insulin) insulin lispro 100 unit/mL 1 sliding scale dose subcut TIDAC 05/26/20 01/29/23 12/15/22 History subcutaneous pen (Humalog KwikPen (U-100) Insulin) lisinopril 40 mg tablet 40 mg PO DAILY 12/15/22 01/29/23 12/15/22 History cholecalciferol (vitamin D3) 50 50 mcg PO DAILY 01/01/23 01/29/23 Unknown History mcg (2,000 unit) tablet lidocaine 5 % topical patch 1 patch topical DAILY 01/01/23 01/29/23 Unknown History Exam Airway Mallampati Class: III TM Dist: >3cm Neck ROM: Full Loose/Missing/Broken Teeth: No Heart: RRR Lungs: CTA Assessment and Plan Assessment Anesthesia Assessment: Anesthesia Plan Discussed Final Anesthetic Review NPO: Yes ASA Class: II and III Final Preanesthetic Review: Meds/Allgs Chart Reviewed, Consent Obtained/Reviewed and Anes Risks/Benef Reviewed Patient Risk: Low Procedure Risk: Intermediate Anesthetic Plan Anesthetic Plan: GA Disposition: Standard PACU
[2023-02-01] VITALS (13 sets, daily range): BP systolic 96–128; BP diastolic 47–72; PULSE 74–87; RESP 15–20; TEMP 36.7–37.1; O2SAT 96–100
--- NOTE | 2023-02-01 04:31 | MHC.SHP ---
Pre-Procedural Eval Section A Date of Service: 02/01/23 The patient is an INPATIENT: No Changes since office visit: No Cold of Flu in the past 2 weeks, No New Medical Problems, No Changes in Medication and No Patient answered all questions The History & Physical has been completed within 30 days and I have reviewed it.: Yes Section B Chief Complaint: Calculus of gallbladder,umbilical hernia Allergies: Allergies Allergy/AdvReac Type Severity Reaction Status Date / Time shrimp Allergy Severe Difficulty Verified 01/29/23 09:32 Breathing atorvastatin [ATORVASTATIN] AdvReac Intermediate elevated Verified 01/29/23 09:32 LFTs Plan I have reviewed the history and physical and performed a pertinent physical examination on my patient. No changes have occurred unless specified. Time Spent With Patient Time: Total time managing care of this patient today ____ minutes.
[2023-02-01 06:33] LABS: Glucose, Whole Blood 192 mg/dL (60-115)
[2023-02-01] MEDS: Lactated Ringers 1,000 ML 50 ML IVCONT (06:33)
--- NOTE | 2023-02-01 08:57 | P.OP_ITS ---
Operative Note Operative Note Date of Service: 02/01/23 Narrative: Preoperative diagnosis: []1. Biliary colic 2. Incarcerated umbilical hernia Postop diagnosis: [] same Procedure [] laparoscopic cholecystectomy, primary repair of incarcerated umbilical hernia Surgeon: [] Quan Social Psychologist: [] instructor adjunct surgical technician Type of Anesthesia: [] general Indication for surgery: [] gallbladder with multiple small gallstones. Omental adhesions to the gallbladder. Markedly intrahepatic gallbladder. Micronodular cirrhosis. Approximately 2 cm incarcerated umbilical hernia with omental contents. Findings: [] Patient brought to the operating room, placed on operative table in supine position, after adequate level of general anesthesia was induced, the patient's abdomen was prepped and draped in usual sterile fashion. Using a supraumbilical curvilinear incision, this was carried down through skin, subcutaneous tissue, were hernia sac was identified and dissected off the posterior aspect of the umbilicus, and down to fascia. Sac was opened where the sac and incarcerated omentum were amputated using Bovie. Specimen sent to pathology. Garcia technique was then used to insufflate the abdominal cavity to 15 mm of CO2. Upper midline and right subcostal ports were placed under direct laparoscopic view, and The patient was placed in reverse Trendelenburg position, tilted to the left. The findings were as noted above. The gallbladder was grasped using laparoscopic graspers, and retracted superiorly and laterally. Soft omental adhesions were swept off the gallbladder where its hilum was approached. There was marked cicatrization of the hilum. Cystic artery and cystic duct were each identified, circumferentially skeletonized, each traced directly into the gallbladder, and critical view obtained. Each was clipped proximally x2, distally x1, and transected. Gallbladder which was very intrahepatic was then cauterized from the gallbladder fossa using Bovie. Small posterior ascending artery in the gallbladder fossa was identified and clipped. Specimen was placed in an Endo-Catch bag, And retrieved through the umbilical port. Abdominal cavity was copiously irrigated, and secured hemostasis. All ports were removed under direct laparoscopic view. Wounds were closed in the following manner; umbilical wound which was the site of hernia was closed primarily using interrupted 0 Vicryl sutures. Posterior aspect of the umbilicus was tacked to the wound floor using interrupted 3-0 Vicryl sutures. Skin wounds were closed using subcuticular 4-0 Vicryl sutures followed by Steri- Strips and sterile dressings. Wounds were infiltrated 0.5% Marcaine at completion. Sponge, needle, instrument counts reported correct. Patient tolerated procedure well and emerged from anesthesia stable condition. EBL minimal
[2023-02-01] MEDS: oxyCODONE HCl Immed Release 5 MG TABLET PO (09:02)
[2023-02-01] MEDS: HYDROmorphone HCl 0.5 MG/0.5 ML SYRINGE 0.25 MG IVPUSH ×2 (09:03→09:14)
[2023-02-01] MEDS: fentaNYL citrate/PF 100 MCG/2 ML VIAL 25 MCG IVPUSH (09:23)
== END 2023-02-01 10:48 | disposition home or self-care (01) ==
PROVIDERS: PCP Registered Nurse; Visit Provider Surgery
PROC: 0FT44ZZ Resection of Gallbladder, Percutaneous Endoscopic Approach (ICD-10-PCS; CPT 47562; principal; 2023-02-01 07:30)
PROC: (CPT 47562; 2023-02-01 07:30)
DX: K80.10 Calculus of gallbladder with chronic cholecystitis without obstruction (principal); K82.8 Other specified diseases of gallbladder; K42.0 Umbilical hernia with obstruction, without gangrene; R10.9 Unspecified abdominal pain; G89.29 Other chronic pain; K74.69 Other cirrhosis of liver; K75.81 Nonalcoholic steatohepatitis (NASH); I25.10 Atherosclerotic heart disease of native coronary artery without angina pectoris; I10 Essential (primary) hypertension; E78.5 Hyperlipidemia, unspecified; Z79.4 Long term (current) use of insulin; Z79.899 Other long term (current) drug therapy; Z88.8 Allergy status to other drugs, medicaments and biological substances
CPT/HCPCS: 47562; 49592; 82947; 88302; 88304; J0131; J0690; J1170; J1200; J2250; J2405; J2795; J3010

== ENCOUNTER → 2023-02-01 06:00 | Outpatient (BNV) | payer MEDICAID, SELFPAY | PROVIDERS: PCP Registered Nurse; Visit Provider Surgery | DX: K80.50 Calculus of bile duct without cholangitis or cholecystitis without obstruction (principal); K42.0 Umbilical hernia with obstruction, without gangrene | CPT/HCPCS: 47562 ==

== ENCOUNTER 2023-02-05 18:28 | Emergency (ER) | payer MEDICAID, SELFPAY ==
--- NOTE | ~2023-02-05 | US_ITS ---
EXAMINATION: US SCROTUM CLINICAL INFORMATION: Scrotal swelling. COMPARISON: None available. TECHNIQUE: A sonogram of the scrotum was performed assessing claire-scale appearance and color Doppler flow. Spectral Doppler analysis of the arterial and venous flow were performed in the testes bilaterally. FINDINGS: RIGHT: Overlying scrotal skin thickening. Right testicle measures 4.0 x 2.3 x 3.0 cm, volume 14 mL. No focal testicular parenchymal lesions are visualized. Spectral Doppler analysis of the arterial and venous flow is normal in the right testis. Right epididymal head is normal in size. The body and tail of the epididymis is not well seen. No right hydrocele or varicocele is seen. Right epididymal Doppler flow is normal. LEFT: Overlying scrotal skin thickening. Left testicle measures 3.3 x 2.1 x 2.1 cm, volume 7.5 mL. No focal testicular parenchymal lesions are visualized. Spectral Doppler analysis of the arterial and venous flow is normal in the left testis. Left epididymal head is normal in size. Left epididymal tail not well seen. No left hydrocele or varicocele is seen. Left epididymal Doppler flow is normal. US/US scrotum IMPRESSION: Overlying scrotal skin thickening. Otherwise unremarkable scrotal ultrasound.
--- NOTE | ~2023-02-05 | US_ITS ---
EXAMINATION: US SCROTUM CLINICAL INFORMATION: Scrotal swelling. COMPARISON: None available. TECHNIQUE: A sonogram of the scrotum was performed assessing claire-scale appearance and color Doppler flow. Spectral Doppler analysis of the arterial and venous flow were performed in the testes bilaterally. FINDINGS: RIGHT: Overlying scrotal skin thickening. Right testicle measures 4.0 x 2.3 x 3.0 cm, volume 14 mL. No focal testicular parenchymal lesions are visualized. Spectral Doppler analysis of the arterial and venous flow is normal in the right testis. Right epididymal head is normal in size. The body and tail of the epididymis is not well seen. No right hydrocele or varicocele is seen. Right epididymal Doppler flow is normal. LEFT: Overlying scrotal skin thickening. Left testicle measures 3.3 x 2.1 x 2.1 cm, volume 7.5 mL. No focal testicular parenchymal lesions are visualized. Spectral Doppler analysis of the arterial and venous flow is normal in the left testis. Left epididymal head is normal in size. Left epididymal tail not well seen. No left hydrocele or varicocele is seen. Left epididymal Doppler flow is normal. US/US scrotum doppler IMPRESSION: Overlying scrotal skin thickening. Otherwise unremarkable scrotal ultrasound.
[2023-02-05 19:00] VITALS: BP 118/68; PULSE 70; RESP 18; TEMP 37.2; O2SAT 99; BMI 27.9
--- NOTE | 2023-02-05 19:00 | ED.GENADULT ---
HPI - General Adult General Chief complaint: General Medical Stated complaint: Previous surgery/feels he has inflammation Related Data Home Medications ?Medication ?Instructions ?Recorded ?Confirmed insulin degludec 100 unit/mL (3 20 unit subcut BEDTIME 05/26/20 01/01/24 mL) subcutaneous pen (Tresiba FlexTouch U-100 insulin) insulin lispro 100 unit/mL 1 sliding scale dose subcut TIDAC 05/26/20 01/01/24 subcutaneous pen (Humalog KwikPen (U-100) Insulin) cholecalciferol (vitamin D3) 50 50 mcg PO DAILY 01/01/23 01/01/24 mcg (2,000 unit) tablet empagliflozin 25 mg tablet 25 mg PO QAM 09/14/23 01/01/24 (Jardiance) eplerenone 50 mg tablet (Inspra) 50 mg PO QAM 09/14/23 01/01/24 hydrocodone 5 mg-acetaminophen 325 1 tab PO Q4-6H PRN pain 09/14/23 01/01/24 mg tablet Previous Rx's ?Medication ?Instructions ?Recorded vitamin A 3,000 mcg (10,000 unit) 1 cap PO QPM #90 caps 09/04/23 capsule rifaximin 550 mg tablet 550 mg PO TID 2 weeks #42 tabs 09/14/23 thiamine HCl (vitamin B1) 100 mg 100 mg PO TID #90 tabs 10/24/23 tablet zinc sulfate 50 mg zinc (220 mg) 50 mg PO QPM #90 caps 10/29/23 capsule tadalafil 20 mg tablet (Cialis) 20 mg PO .PRN PRN sexual activity 12/31/23 90 days #45 tabs tadalafil 5 mg tablet (Cialis) 5 mg PO DAILY 90 days #90 tabs 12/31/23 alirocumab 75 mg/mL subcutaneous 75 mg subcut Q2W #2 mL 01/07/24 pen injector (Praluent Pen) Allergies Allergy/AdvReac Type Severity Reaction Status Date / Time shrimp Allergy Severe Difficulty Verified 01/01/24 09:27 Breathing atorvastatin [ATORVASTATIN] AdvReac Intermediate elevated Verified 01/01/24 09:27 LFTs PMFSH Past Medical History Medical History Back pain GERD (gastroesophageal reflux disease) CAD (coronary artery disease) Palpitations Arthritis Fibromyalgia SALGUERO (nonalcoholic steatohepatitis) Fatty liver Depression Hyperlipidemia, unspecified Type 2 diabetes mellitus with unspecified complications Essential hypertension Atherosclerotic cardiovascular disease Surgical History History of abdominal paracentesis Left inguinal hernia (05/04/23) Hx of cholecystectomy History of umbilical hernia repair Gallstone Hx of endoscopy History of colonoscopy History of ankle surgery Family History Family History Father Diabetes Mother No problems noted. Social History Social History (Reviewed 01/01/24 @ 09: by GUNNER Foster) Household Members: Spouse Housing: House Are you a primary resident care manager rn to a significant other at home: No Do you presently have visiting nurse or other home services: No Alcohol intake: unknown Comment: uses cane on occasion due to hip arthritis Patient Tobacco Use Status: Current someday Tobacco user Tobacco use type: Cigar service: No Current occupational status: employed Current occupation: [employer] Physical Exam ED Vital Signs: BMI result Body Mass Index 27.9 Course Course Course Narrative: 1899 57-year-old male presents with testicular swelling he tells me that he is status post hernia repair surgery. Patient reports discomfort however no significant pain. Patient denies nausea, vomiting, abdominal pain, chest pain, shortness of breath, fevers and chills. Plan- Discharge Plan Discharge Clinical Impression: Eloped from emergency department Patient Disposition: Elopement Prescriptions: No Action vitamin A 3,000 mcg (10,000 unit) capsule 1 cap PO QPM Qty: 90 1RF thiamine HCl (vitamin B1) 100 mg tablet 100 mg PO TID Qty: 90 3RF zinc sulfate 50 mg zinc (220 mg) capsule 50 mg PO QPM Qty: 90 1RF Praluent Pen 75 mg/mL pen injector 75 mg subcut Q2W Qty: 2 3RF Rx Instructions: inject into abdomen, thigh, or upper arm (deltoid muscle); rotate sites insulin lispro [Humalog KwikPen Insulin] 100 unit/mL insulin pen 1 sliding scale dose subcut TIDAC Tresiba FlexTouch U-100 100 unit/mL (3 mL) insulin pen 20 unit subcut BEDTIME cholecalciferol (vitamin D3) 50 mcg (2,000 unit) tablet 50 mcg PO DAILY tadalafil [Cialis] 5 mg tablet 5 mg PO DAILY 90 Days Qty: 90 1RF Rx Instructions: [id number] [facility]33 Member [id number] tadalafil [Cialis] 20 mg tablet 20 mg PO .PRN PRN (Reason: sexual activity) 90 Days Qty: 45 0RF Rx Instructions: administer approximately 30min before sexual activity; do not use more than 1 dose per 24hrs [id number] [facility]33 Member [id number] Jardiance 25 mg tablet 25 mg PO QAM eplerenone [Inspra] 50 mg tablet 50 mg PO QAM rifaximin 550 mg tablet 550 mg PO TID 14 Days Qty: 42 0RF hydrocodone-acetaminophen 5-325 mg tablet 1 tab PO Q4-6H PRN (Reason: pain) Rx Instructions: Partial Fill upon patient request. Interventions: ED Discharge Assessment Last Done: 02/05/23 23:45 Discharge Date/Time: 02/05/23 23:46 Print Language: Indian
== END 2023-02-05 23:46 | disposition left against medical advice (07) ==
PROVIDERS: Emergency Provider Internal Medicine; PCP Registered Nurse
DX: N50.89 Other specified disorders of the male genital organs (principal); I10 Essential (primary) hypertension; E11.9 Type 2 diabetes mellitus without complications; Z79.899 Other long term (current) drug therapy; Z79.4 Long term (current) use of insulin
CPT/HCPCS: 76870; 93975; 99282; 99284

== ENCOUNTER 2023-02-07 09:54 | Outpatient (AMB) | payer MEDICAID, SELFPAY ==
[2023-02-07 09:59] VITALS: BP 116/58; PULSE 68; BMI 30.4
--- NOTE | 2023-02-07 09:59 | A.OFFVIS_ITS ---
Intake Vital Signs 02/07/23 09:59 Height 5 ft 7 in Weight 194 lb 0.108 oz BMI 30.4 BP 116/58 L Blood Pressure Location Lt brachial Position Sitting Pulse 68 Intake Visit Reasons: S/P lap benjamin, umbilical hernia Intake Note: Patient here s/p lap benjamin and umb hernia. C/o Rt lower abd pain. Reports incisions healing well. Denies bleeding or oozing. Still taking rx pain meds as needed. Medical Economics Consultant Required: No Accompanied by: Self / Same As Patient Allergies shrimp Allergy (Severe, Verified 02/07/23 10:01) Difficulty Breathing atorvastatin [ATORVASTATIN] Adverse Reaction (Intermediate, Verified 02/07/23 10:01) elevated LFTs HPI HPI Comments History of Present Illness Details Patient presents for follow-up status post lap choly then umbilical hernia repair. He has time diet. Having normal bowel habits. Patient has noticed some abdominal distension and some scrotal swelling. He has [id number] incisional discomfort. Discussed with the patient intraoperative findings which demonstrated adrianna ronodular cirrhosis of his liver along with his other surgical pathologies (gallbladder and hernia). Patient was recently seen in the emergency department because of scrotal edema and had ultrasound of the scrotum which was essentially within normal limits. Unfortunately, the patient left AMA, before workup was completed. Patient is being followed by Dr. Garcia/GI as well [facility] Medical History Arthritis Atherosclerotic cardiovascular disease CAD (coronary artery disease) Depression Essential hypertension Fatty liver Fibromyalgia Gallstone Hyperlipidemia, unspecified SALGUERO (nonalcoholic steatohepatitis) Palpitations Type 2 diabetes mellitus with unspecified complications Surgical History History of ankle surgery History of colonoscopy History of umbilical hernia repair Hx of endoscopy Family History Father Diabetes Mother No problems noted. Social History Household Members: Spouse Housing: House Are you a primary healthcare architect to a significant other at home: No Do you presently have visiting nurse or other home services: No Alcohol intake: current Alcohol intake frequency: a few times a week Patient Tobacco Use Status: Never used Tobacco service: No Current occupational status: employed Current occupation: [employer] Physical Exam Vital Signs: Last Vital Signs Pulse 68 02/07/23 09:59 BP 116/58 L 02/07/23 09:59 BMI result Body Mass Index 30.4 Eyes Other: Anicteric GI Other: Abdomen slightly distended. All wounds clean dry and intact. Appropriate incisional tenderness. Assessment & Plan Assessment & Plan (1) Gallstone: Code(s): K80.20 - Calculus of gallbladder without cholecystitis without obstruction (2) Umbilical hernia: Code(s): K42.9 - Umbilical hernia without obstruction or gangrene Plan Patient has been given local instructions and will provide paperwork to the office for FMLA application. He should avoid stress activities the next few weeks time. I also suggested that he follow-up with his GI physician. Coding Level of Care Code Global (23187) Diagnoses Gallstone K80.20 Umbilical hernia K42.9
== END 2023-02-07 10:55 | disposition home or self-care (01) ==
PROVIDERS: PCP Registered Nurse; Visit Provider Surgery
DX: K80.20 Calculus of gallbladder without cholecystitis without obstruction (principal); K42.9 Umbilical hernia without obstruction or gangrene
CPT/HCPCS: 99024

== ENCOUNTER → 2023-02-07 09:54 | Outpatient (BNVA) | payer MEDICAID, SELFPAY | PROVIDERS: PCP Registered Nurse; Visit Provider Surgery ==

== ENCOUNTER 2023-02-07 10:29 | Emergency (ER) | payer MEDICAID, SELFPAY ==
--- NOTE | ~2023-02-07 | CT_ITS ---
EXAMINATION: CT ABDOMEN AND PELVIS WITH CONTRAST CLINICAL INFORMATION: 7 day postop. Hernia repair. Now presents with right lower quadrant distention question fever. COMPARISON: None available. TECHNIQUE: Multidetector volumetric images were obtained from the superior aspect of the liver through the pubic symphysis following administration 85 mL of Omnipaque 350 intravenous contrast. Sagittal and coronal reformatted images were obtained on the technologist's workstation. Oral contrast: No This CT examination was performed using dose optimization techniques as appropriate, variously including the following: *Automated exposure control *Adjustment of mA and/or kV according to patient size (this includes techniques or standardized protocols for targeted exams where dose is matched to indication/reason for exam; i.e. extremities or head) *Use of iterative reconstruction technique DLP: 733 mGy-cm FINDINGS: LUNG BASES: There is platelike atelectasis in both lung bases. The heart size is normal. LIVER, GALLBLADDER, AND BILIARY TREE: The liver is normal size and shape with scalloped contour and mild heterogeneity along the right hepatic lobe.. There is perihepatic ascites. There is a 1.7 cm mildly enhancing lesion left lobe axial image 23/3. On the previous exam it was hypointense on nonenhanced CT. Previously reported as hemangioma. The gallbladder has been surgically removed. PANCREAS: Unremarkable. SPLEEN: Unremarkable. ADRENAL GLANDS: Unremarkable. KIDNEYS AND URETERS: The kidneys are normal in size, shape, and attenuation. No hydronephrosis, hydroureter, or calculi seen. There is mild bilateral perinephric stranding. BLADDER: Unremarkable. GASTROINTESTINAL TRACT: There is scattered stool and gas seen throughout the colon without distention. The small bowel loops are normal caliber. Appendix is not visualized. There is free fluid. ABDOMINAL WALL: There is bilateral abdominal wall edema with moderate cellulitis on the right side. No evidence of hernia. LYMPH NODES: Normal. VASCULAR: There are Varices visualized in the upper abdomen. The aorta is of normal caliber. PELVIC VISCERA: The prostate gland is normal size with central gland and seminal vesicle calcification. OSSEOUS STRUCTURES: There are degenerative disc changes with vacuum disc phenomena and ventral spondylosis L5-S1 disc level. No aggressive lytic or sclerotic process seen. CT/CT abdomen pelvis w IV con IMPRESSION: 1. New bilateral abdominal wall edema with moderate cellulitis on the right side. No evidence of hernia. 2. Cirrhotic liver with moderate new ascites. Varices. 3. Mild constipation. 4. Mild bilateral perinephric stranding. No radiopaque renal calculi or hydronephrosis. 5. There is a 1.7 cm mildly enhancing lesion left lobe. Previously recorded as hemangioma. Fleischner guidelines were followed.
[2023-02-07 11:01] VITALS: BP 101/65; PULSE 71; RESP 19; TEMP 35.6; O2SAT 98; BMI 30.7
--- NOTE | 2023-02-07 11:02 | ED_ITS ---
HPI - General Adult General Chief complaint: Urogenital-Male Stated complaint: gen med Time Seen by Provider: 02/07/23 17:21 Source: patient Mode of arrival: ambulatory Limitations: no limitations History of Present Illness HPI narrative: 57-year-old male who presents emergency department for evaluation of abdominal pain and scrotal swelling the patient is approximately 7 days postop from a laparoscopic cholecystectomy and umbilical hernia repair. The patient noted lower abdominal pain and scrotal swelling and came to the emergency department on 02/01/2023 but due to the long wait left the emergency department without being seen. He had a duplex ultrasound of his scrotum which revealed overlying scrotal skin thickening otherwise it was an unremarkable scrotal duplex ultrasound. Patient states he has continued to have scrotal swelling, he is also complaining of abdominal pain he points to his right lower quadrant area when asked to localize the pain . He states the pain is a constant throbbing sensation. He may have had a fever at home but did not take his temperature. He denied nausea, vomiting, frequency, urgency, dysuria or changes bowel movements. He was seen today by his surgeon Dr. Glass and the patient states that he was told that the pain is postoperative pain. Patient was concerned about the pain and scrotal swelling so your return to the emergency department for evaluation. The patient was noted to have cirrhosis of the liver during the abdominal procedure, patient does have the diagnosis of SALGUERO. Patient states however he was drinking a 6 pack of beer daily for many years and stop drinking 2 months prior. Related Data Home Medications Medication Instructions Recorded Confirmed insulin degludec 100 unit/mL (3 13 unit subcut BEDTIME 05/26/20 01/29/23 mL) subcutaneous pen (Tresiba FlexTouch U-100 insulin) insulin lispro 100 unit/mL 1 sliding scale dose subcut TIDAC 05/26/20 01/29/23 subcutaneous pen (Humalog KwikPen (U-100) Insulin) lisinopril 40 mg tablet 40 mg PO DAILY 12/15/22 01/29/23 cholecalciferol (vitamin D3) 50 50 mcg PO DAILY 01/01/23 01/29/23 mcg (2,000 unit) tablet lidocaine 5 % topical patch 1 patch topical DAILY 01/01/23 01/29/23 Previous Rx's Medication Instructions Recorded hydrocodone 5 mg-acetaminophen 325 1 tab PO Q4-6H PRN pain #30 tabs 02/01/23 mg tablet amoxicillin 875 mg-potassium 1 tab PO Q12H 7 days #14 tabs 02/07/23 clavulanate 125 mg tablet Allergies Allergy/AdvReac Type Severity Reaction Status Date / Time shrimp Allergy Severe Difficulty Verified 02/07/23 10:01 Breathing atorvastatin [ATORVASTATIN] AdvReac Intermediate elevated Verified 02/07/23 10:01 LFTs Review of Systems Review of Systems: Yes all other systems are reviewed and are negative [facility] Past Medical History [facility] Narrative: Social history: He denies tobacco use. The patient does have a history of alcohol use disorder and drink a 6 pack of beer per day times many years but stopped drinking 2 months prior, denies drug use. Medical History Arthritis Atherosclerotic cardiovascular disease CAD (coronary artery disease) Depression Essential hypertension Fatty liver Fibromyalgia Hyperlipidemia, unspecified SALGUERO (nonalcoholic steatohepatitis) Palpitations Type 2 diabetes mellitus with unspecified complications Surgical History Gallstone History of ankle surgery History of colonoscopy History of umbilical hernia repair Hx of endoscopy Family History Family History Father Diabetes Mother No problems noted. Social History Social History Household Members: Spouse Housing: House Are you a primary health care consultant to a significant other at home: No Do you presently have visiting nurse or other home services: No Alcohol intake: current Alcohol intake frequency: a few times a week Patient Tobacco Use Status: Never used Tobacco Advance Directives: No Advance Directives Information Provided: No service: No Current occupational status: employed Current occupation: [employer] Physical Exam ED Vital Signs: Vital Signs - 24 hr 02/07/23 11:01 02/07/23 20:25 Temperature 96.0 F L 99.0 F Pulse Rate 71 72 Respiratory Rate 19 18 Blood Pressure 101/65 99/55 L Pulse Oximetry 98 99 Oxygen Delivery Method Room Air Room Air BMI result Body Mass Index 30.7 Vital signs were normal Const Other: Awake, alert, male patient, pleasant, cooperative, does not appear to be in distress, answers all questions appropriately [facility] Head: Yes normal to inspection, Yes normocephalic and Yes atraumatic Ears: external ears normal General nose exam: Normal external nose present Face and sinus: Yes normal facial exam Mouth: Normal oral and palatal mucosa present Throat: Yes posterior oropharynx normal Eyes General: appearance normal, both eyes and all related structures Pupils: Equal, round and reactive pupils present Neck Neck: Yes normal visual inspection, Yes no lymphadenopathy, Yes trachea midline and Yes supple Chest Chest palpation & inspection: normal inspection of the chest and normal palpation of entire chest wall Resp Effort & Inspection: normal respiratory effort and able to speak in complete sentences Auscultation: clear to auscultation bilaterally Cardio Rate: regular rate Rhythm: regular rhythm Heart sounds: S1 normal heart sound present, S2 normal heart sound present and no murmurs GI Other: Patient's abdomen is obese, the laparoscopic sites are healing with no signi ficant erythema around them, he does have tenderness with palpation of his periumbilical surgical site with some fullness in this area, patient also has moderate right lower quadrant tenderness with right upper quadrant tenderness. Other: Patient's penis is uncircumcised there is swelling of the foreskin but the foreskin is retractable, the scrotum bilaterally appears to be ecchymotic with no significant tenderness palpation, no erythema or increased warmth Skin General skin exam: no rashes or lesions noted Neuro Cranial nerves: Yes CN's II-XII intact bilaterally and Yes Equal, round and reactive pupils present Cognition (Neuro): normal cognition Motor exam (neuro): 5/5 motor strength present throughout Extrem General: Yes normal to inspection Psych Appearance: grossly normal Speech and movement: Normal speech and movement present Affect: normal affect Attitude: cooperative Thought process: Normal thought process present Thought content: Normal thought content present Course Course Course Narrative: This is an RME: Additional HPI, ROS, PE not included below will be deferred to primary provider. This is a [id number]-male presenting to the emergency department with complaints of testicular and penile swelling x 2 days. Endorsing fever of 101 last night. Pt had umbilical hernia surgery last . He has had no drainage. Pt was seen 2 days ago in the ER but eloped prior to evaluation in main ER. Scrotum US revealing overlying scrotal skin thickening. Given worsening pain and swelling I advised to get repeat scrotal US, however, pt would like this deferred until seen by primary provider Plan: Basic labs and UA. Pt refusing US until seen by provider in the main ER. Medications Administered Generic Name Dose Route Start Last Admin Trade Name Freq PRN Reason Stop Dose Admin Lactated Ringer's 1,000 mls @ 150 mls/hr 02/07/23 20:45 02/07/23 20:53 Lr IVCONT 150 mls/hr .[id number] CORBY Administration Discontinued Medications Generic Name Dose Route Start Last Admin Trade Name Freq PRN Reason Stop Dose Admin Cefazolin Sodium 2 gm/ Sodium 50 mls @ 100 mls/hr 02/07/23 20:33 02/07/23 20:48 Chloride IV 02/07/23 21:02 100 mls/hr ONCE ONE Administration Iohexol 100 ml 02/07/23 18:42 02/07/23 18:42 Iohexol 350 Mg/Ml 100 Ml Infus..Btl IV 02/07/23 18:43 85 ml ONCE ONE Administration Medical Decision Making Medical Decision Making [facility] Narrative: 57-year-old male who is 7 days postop from a laparoscopic cholecystectomy and umbilical hernia repair who was seen by his surgeon today in follow-up in [facility] emergency department for evaluation of right lower abdominal pain and scrotal swelling. Patient's vital signs were normal. Patient did have right lower quadrant tenderness and periumbilical tenderness. Patient's scrotum are ecchymotic with no increased warmth or erythema-patient had a duplex scrotal ultrasound on 02/01/2023 in the emergency department which revealed scrotal wall thickening but otherwise was negative for torsion or testicular abnormalities. Following laboratory evaluation was ordered on the patient, CBC, BMP, liver panel, urinalysis, influenza, COVID-19. 1758: My interpretation patient's laboratory evaluation is as follows: CBC was normal. Glucose elevated 308. Liver panel was normal except for an elevated alk-phos of 144. COVID-19 influenza were negative. Urinalysis positive for blood microscopic revealed 3-5 RBCs, 0-5 WBCs, no bacteria. Influenza and COVID -19 were negative. The patient does not want any pain medications at this time. Given his right lo wer abdominal tenderness I did order a CT scan of the abdomen pelvis with IV contrast 2032: CT scan of the abdomen pelvis did reveal a right abdominal wall cellulitis with other significant abnormalities. Patient does have moderate cirrhosis with ascites however this could also be postoperative fluid changes. I ordered blood cultures x2, lactic acid and Ancef 2 g IV I will discuss admission with the covering surgeon. 2117: I did discuss the patient's presentation with the covering surgeon, Dr. Bill. She felt that the CT scan findings could represent postoperative fluid changes from the port site related to the patient's ascites. She recommended that the patient be treated as an outpatient with Augmentin 875/125 mg q.12 hours x7 days. I did discuss this with the patient and he agrees with a plan. Patient will need to follow-up with Dr. Glass in for re-evaluation Differential Diagnosis Differential Diagnoses: The differential diagnosis associated with the presentation includes Differential diagnosis includes was not limited to appendicitis, postoperative abscess, postoperative pain, ascites, anemia, electrolyte abnormality, urinary tract infection, testicular torsion, scrotal cellulitis Admission/Observation Consideration of admission/observation: Escalation of care including admission/observation considered Lab Data [facility] Lab Attestation statement: I reviewed the patient's lab results. See [facility] 02/07/23 11:17 02/07/23 11:17 Labs: Lab Results 02/07/23 02/07/23 02/07/23 Range/Units 11:17 11:17 11:17 WBC 11.8 H (4.8-10.8) X10*3/uL RBC 5.01 D (4.60-5.80) X10*6/uL Hgb 13.5 L D (14.0-18.0) g/dl Hct 42.8 D (42.0-52.0) % MCV 85.4 (80.0-98.0) fL MCH 26.9 L (27.0-33.0) pg MCHC 31.5 (31.0-36.0) g/dl RDW 13.2 (11.0-16.0) % Plt Count 261 D (160-400) X10*3/uL MPV 9.2 L (9.4-12.4) fL Immature Gran % (Auto) 0.3 (0.0-0.4) % Neut % (Auto) 66.4 (45-73) % Lymph % (Auto) 19.1 L (20-40) % [place] % (Auto) 12.4 H (2-11) % Eos % (Auto) 1.3 (0-4) % Baso % (Auto) 0.5 (0-2) % Lymph # (Auto) 2.3 (1.2-4.9) X10*3/uL [place] # (Auto) 1.5 H (0.1-1.2) X10*3/uL Eos # (Auto) 0.2 (0.0-0.4) X10*3/uL Baso # (Auto) 0.1 (0.0-0.2) X10*3/uL Abs Immat Gran (auto) 0.04 H (0.00-0.03) X10*3/uL Absolute Neuts (auto) 7.8 (2.0-8.3) x10*3/uL Absolute Nucleated RBC 0.000 (0.0-0.012) X10*3/uL Nucleated RBC % (auto) 0.0 (0.0-0.2) /100WBC Sodium 136 (135-145) mmol/L Potassium 4.5 (3.3-5.1) mmol/L Chloride 104 (96-108) mmol/L Carbon Dioxide 23 (22-29) mmol/L Anion Gap 14 (12-20) BUN 16 (9-16) mg/dL Creatinine 0.85 (0.5-1.4) mg/dL Estim Creat Clear Calc 102.0 Estimated GFR > 60 Random Glucose 308 H (60-115) mg/dL Lactic Acid (0.5-2.0) mmol/L Calcium 10.1 D (8.4-10.2) mg/dL Total Bilirubin 0.5 (0.0-1.0) mg/dL Direct Bilirubin 0.2 (0.0-0.5) mg/dL AST 21 (5-37) U/L ALT 14 (0-40) U/L Alkaline Phosphatase 144 H (39-117) U/L Total Protein 6.9 (6.5-8.0) g/dL Albumin 3.5 (3.5-5.0) g/dL Urine Color Urine Appearance Urine pH (5.0-9.0) Ur Specific [place] (1.005-1.025) Urine Protein (Neg-Trace) mg/dL Urine Glucose (UA) (Negative) mg/dL Urine Ketones (Negative) mg/dL Urine Blood (Negative) Urine Nitrite (Negative) Ur Leukocyte Esterase (Negative) Urine RBC (0-2) /HPF Urine WBC (0-5) /HPF Ur Squamous Epith Cells (0-2) /HPF Urine Bacteria (None Seen) Hyaline Casts (0-2) /LPF COVID-19 (BRAIN) (Negative) COVID-19 Clin Com Influenza Type A (NANO) Negative (Negative) Influenza Type B (NANO) Negative (Negative) Influenza A & B Note See Note 02/07/23 02/07/23 02/07/23 Range/Units 11:17 11:17 20:36 WBC (4.8-10.8) X10*3/uL RBC (4.60-5.80) X10*6/uL Hgb (14.0-18.0) g/dl Hct (42.0-52.0) % MCV (80.0-98.0) fL MCH (27.0-33.0) pg MCHC (31.0-36.0) g/dl RDW (11.0-16.0) % Plt Count (160-400) X10*3/uL MPV (9.4-12.4) fL Immature Gran % (Auto) (0.0-0.4) % Neut % (Auto) (45-73) % Lymph % (Auto) (20-40) % [place] % (Auto) (2-11) % Eos % (Auto) (0-4) % Baso % (Auto) (0-2) % Lymph # (Auto) (1.2-4.9) X10*3/uL [place] # (Auto) (0.1-1.2) X10*3/uL Eos # (Auto) (0.0-0.4) X10*3/uL Baso # (Auto) (0.0-0.2) X10*3/uL Abs Immat Gran (auto) (0.00-0.03) X10*3/uL Absolute Neuts (auto) (2.0-8.3) x10*3/uL Absolute Nucleated RBC (0.0-0.012) X10*3/uL Nucleated RBC % (auto) (0.0-0.2) /100WBC Sodium (135-145) mmol/L Potassium (3.3-5.1) mmol/L Chloride (96-108) mmol/L Carbon Dioxide (22-29) mmol/L Anion Gap (12-20) BUN (9-16) mg/dL Creatinine (0.5-1.4) mg/dL Estim Creat Clear Calc Estimated GFR Random Glucose (60-115) mg/dL Lactic Acid 1.2 (0.5-2.0) mmol/L Calcium (8.4-10.2) mg/dL Total Bilirubin (0.0-1.0) mg/dL Direct Bilirubin (0.0-0.5) mg/dL AST (5-37) U/L ALT (0-40) U/L Alkaline Phosphatase (39-117) U/L Total Protein (6.5-8.0) g/dL Albumin (3.5-5.0) g/dL Urine Color Yellow Urine Appearance Clear Urine pH 6.0 (5.0-9.0) Ur Specific [place] 1.020 (1.005-1.025) Urine Protein Negative (Neg-Trace) mg/dL Urine Glucose (UA) >=1000 H (Negative) mg/dL Urine Ketones Negative (Negative) mg/dL Urine Blood Trace H (Negative) Urine Nitrite Negative (Negative) Ur Leukocyte Esterase Negative (Negative) Urine RBC 3-5 H (0-2) /HPF Urine WBC 0-5 (0-5) /HPF Ur Squamous Epith Cells 0-2 (0-2) /HPF Urine Bacteria None Seen (None Seen) Hyaline Casts 0-2 (0-2) /LPF COVID-19 (BRAIN) Negative (Negative) COVID-19 Clin Com See Note Influenza Type A (NANO) (Negative) Influenza Type B (NANO) (Negative) Influenza A & B Note Radiology Impression Discussion of test interpretation with radiology: I have reviewed the radiologist's reading. Radiologist Impression: CT abdomen pelvis w IV con IMPRESSION: 1. New bilateral abdominal wall edema with moderate cellulitis on the right side. No evidence of hernia. 2. Cirrhotic liver with moderate new ascites. Varices. 3. Mild constipation. 4. Mild bilateral perinephric stranding. No radiopaque renal calculi or hydronephrosis. 5. There is a 1.7 cm mildly enhancing lesion left lobe. Previously recorded as hemangioma. Fleischner guidelines were followed. Dictated By:José Miguel Art MD Independent Historian Clinical information obtained from an independent historian. History obtained from or confirmed by: Other () External Record Review External record reviewed: Inpatient record and Office record Prescription Management I considered prescription management with: Antibiotic Chronic Conditions Patient?s care impacted by: Diabetes and Other (Liver cirrhosis) Discharge Plan Discharge Clinical Impression: Abdominal wall cellulitis Abdominal pain Qualifiers: Abdominal location: right lower quadrant Qualified Code(s): R10.31 - Right lower quadrant pain Cirrhosis of liver Qualifiers: Ascites presence: with ascites Patient Disposition: Home, Self-Care Instructions: Cellulitis (ED) Additional Instructions: Your blood work was unremarkable. The CT scan of your abdomen pelvis with IV contrast is concerning for possible infection of the skin of the right abdominal wall. Sometimes it is difficult to tell the difference between an infection and fluid from the surgery. Your treated with Ancef 2 g IV here in the emergency department and Augmentin 875 mg orally. Take Augmentin 875/125 mg 1 pill every 12 hours for 7 days. This is an antibiotic that should help your body fight off the infection. Apply a heating pad on LOW or a warm compress for 15 minutes, 4-6 times a day. This will increase the blood flow to the area and will bring white blood cells to the area which will help your body fight off the infection. Take the pain medication as prescribed by Dr. Glass. Signs of worsening infection include fever, chills, weakness, increased pain, increased redness, increased swelling or red streaks going away from the area of infection. If you develop any of these symptoms or any other symptoms that are concerning to you, see your doctor immediately or return to the Emergency Department. Follow up with your doctor in 3 days for a recheck Please read the other printed instructions that we printed for you. Follow-up with your doctor in 2 days. Please return to the emergency department if your symptoms get worse or if you develop any symptoms that are concerning to you. Prescriptions: New amoxicillin-pot clavulanate 875-125 mg tablet 1 tab PO Q12H 7 Days Qty: 14 0RF No Action hydrocodone-acetaminophen 5-325 mg tablet 1 tab PO Q4-6H PRN (Reason: pain) Qty: 30 0RF Rx Instructions: Partial Fill upon patient request. lisinopril 40 mg tablet 40 mg PO DAILY insulin lispro [Humalog KwikPen Insulin] 100 unit/mL insulin pen 1 sliding scale dose subcut TIDAC Tresiba FlexTouch U-100 100 unit/mL (3 mL) insulin pen 13 unit subcut BEDTIME lidocaine 5 % adhesive patch,medicated 1 patch topical DAILY cholecalciferol (vitamin D3) 50 mcg (2,000 unit) tablet 50 mcg PO DAILY
[2023-02-07 11:26] LABS: MANUAL DIFF FLAG NO
[2023-02-07 11:27] LABS: Basophils Absolute Auto 0.1 X10*3/uL (0.0-0.2); Basophils Percent Auto 0.5 % (0-2); Eosinophils Absolute Auto 0.2 X10*3/uL (0.0-0.4); Eosinophils Percent Auto 1.3 % (0-4); Hematocrit 42.8 % (42.0-52.0); Hemoglobin 13.5 g/dl (14.0-18.0); Imm Gran Abs Auto 0.04 X10*3/uL (0.00-0.03); Imm Gran Pct Auto 0.3 % (0.0-0.4); Lymphocytes Absolute Auto 2.3 X10*3/uL (1.2-4.9); Lymphocytes Percent Auto 19.1 % (20-40); Mean Corpuscular HGB Conc 31.5 g/dl (31.0-36.0); Mean Corpuscular Hemoglobin 26.9 pg (27.0-33.0); Mean Corpuscular Volume 85.4 fL (80.0-98.0); Mean Platelet Volume 9.2 fL (9.4-12.4); Monocytes Absolute Auto 1.5 X10*3/uL (0.1-1.2); Monocytes Percent Auto 12.4 % (2-11); Neutrophils Absolute Auto 7.8 x10*3/uL (2.0-8.3); Neutrophils Percent Auto 66.4 % (45-73); Platelet Count 261 X10*3/uL (160-400); Red Blood Count 5.01 X10*6/uL (4.60-5.80); Red Cell Distribution Width 13.2 % (11.0-16.0); White Blood Count 11.8 X10*3/uL (4.8-10.8)
[2023-02-07 11:30] LABS: Appearance Urine Clear; Color Urine Yellow; Glucose Urine UA >=1000 mg/dL (Negative); Leukocyte Esterase Urine Negative (Negative); Nitrite Urine Negative (Negative); UMIC TRIGGER UACC YES; Urine Blood Trace (Negative); Urine Ketones Negative (Negative); Urine Protein Negative (Neg-Trace)
[2023-02-07 11:35] LABS: Bacteria Urine None Seen (None Seen); Hyaline Casts Urine 0-2 /LPF (0-2); Squamous Epithelial Cell Urine 0-2 /HPF (0-2); WBC Urine 0-5 /HPF (0-5)
[2023-02-07 11:44] LABS: COVID-19 Test Negative (Negative); IDNOW Serial# 08D9AD1C; IDNOW Serial# BCCEAD1C; Influenza A Negative (Negative); Influenza B2 Negative (Negative)
[2023-02-07 11:47] LABS: Alanine Aminotransferase 14 U/L (0-40); Albumin Level 3.5 g/dL (3.5-5.0); Alkaline Phosphatase 144 U/L (39-117); Anion Gap 14 (12-20); Aspartate Amino Transferase 21 U/L (5-37); Bilirubin Direct 0.2 mg/dL (0.0-0.5); Bilirubin Total 0.5 mg/dL (0.0-1.0); Blood Urea Nitrogen 16 mg/dL (9-16); Calcium 10.1 mg/dL (8.4-10.2); Carbon Dioxide 23 mmol/L (22-29); Chloride 104 mmol/L (96-108); Estimated Glomerular Filt Rate > 60; Glucose Random 308 mg/dL (60-115); Potassium 4.5 mmol/L (3.3-5.1); Sodium 136 mmol/L (135-145); Total Protein 6.9 g/dL (6.5-8.0)
[2023-02-07] MEDS: iohexoL 350 MG/ML 100 ML INFUS..BTL IV (18:42)
[2023-02-07 20:25] VITALS: BP 99/55; PULSE 72; RESP 18; TEMP 37.2; O2SAT 99
[2023-02-07] MEDS: Lactated Ringers 1,000 ML 150 ML IVCONT (20:53)
[2023-02-07 20:55] LABS: Lactic Acid 1.2 mmol/L (0.5-2.0)
[2023-02-07] MEDS: Amoxicillin/Potassium Clav 875 MG TABLET PO (21:52)
--- NOTE | 2023-02-07 21:54 | PC.NURSE ---
pt medicated per MAR.
== END 2023-02-07 21:57 | disposition home or self-care (01) ==
PROVIDERS: Physician Assistant Medical; Emergency Provider Emergency Medicine Emergency Medical Services
DX: R10.31 Right lower quadrant pain (principal); R18.8 Other ascites; Z20.822 Contact with and (suspected) exposure to COVID-19; Z20.828 Contact with and (suspected) exposure to other viral communicable diseases; Z79.899 Other long term (current) drug therapy
CPT/HCPCS: 36415; 74177; 80048; 80076; 81001; 83605; 85025; 87040; 87502; 87635; 96365; 99283; 99284; J0690; Q9967

== ENCOUNTER → 2023-02-13 11:20 | Outpatient (REF) | payer MEDICAID, SELFPAY | LOC: HO.CARD 11:20 | PROVIDERS: PCP Registered Nurse; Visit Provider Nurse Practitioner Family | DX: Z13.89 Encounter for screening for other disorder (principal) ==

== ENCOUNTER 2023-02-13 13:59 | Outpatient (AMB) | payer MEDICAID, SELFPAY ==
[2023-02-13 14:02] VITALS: BP 104/53; PULSE 74; BMI 31.2
--- NOTE | 2023-02-13 14:02 | MHC.OFFVIS ---
Intake Vital Signs 02/13/23 14:02 Height 5 ft 7 in Weight 199 lb BMI 31.2 BP 104/53 L Blood Pressure Location Rt brachial Position Sitting Pulse 74 Intake Visit Reasons: ? infection Intake Note: This patient presents for [facility] [place] follow-up for question of infection. Patient c/o; denies redness, reports that he was advised at the emergency department he has an infection in his abdomen, reports starting abx, reports bloating. Consumer Marketing Manager Required: No Accompanied by: Self / Same As Patient Allergies shrimp Allergy (Severe, Verified 02/13/23 14:09) Difficulty Breathing atorvastatin [ATORVASTATIN] Adverse Reaction (Intermediate, Verified 02/13/23 14:09) elevated LFTs HPI HPI Comments History of Present Illness Details Patient presents for follow-up status post lap choly. He was seen emergency department because of abdominal distension and workup including CT scan abdomen and pelvis demonstrated moderate amount of ascites. In the meantime, patient is tolerating his diet. He is having normal bowel habits. He has no incisional discomfort. [facility] Medical History Arthritis Atherosclerotic cardiovascular disease CAD (coronary artery disease) Depression Essential hypertension Fatty liver Fibromyalgia Hyperlipidemia, unspecified SALGUERO (nonalcoholic steatohepatitis) Palpitations Type 2 diabetes mellitus with unspecified complications Surgical History Gallstone History of ankle surgery History of colonoscopy History of umbilical hernia repair Hx of endoscopy Family History Father Diabetes Mother No problems noted. Social History Household Members: Spouse Housing: House Are you a primary director career services to a significant other at home: No Do you presently have visiting nurse or other home services: No Alcohol intake: current Alcohol intake frequency: a few times a week Patient Tobacco Use Status: Never used Tobacco service: No Current occupational status: employed Current occupation: [employer] Physical Exam Vital Signs: Last Vital Signs Pulse 74 02/13/23 14:02 BP 104/53 L 02/13/23 14:02 BMI result Body Mass Index 31.2 Eyes Other: Anicteric GI Other: Abdomen soft. Wound clean dry and intact. Moderate protuberance most likely related to underlying ascites. Assessment & Plan Assessment & Plan (1) Gallstone: Code(s): K80.20 - Calculus of gallbladder without cholecystitis without obstruction (2) Ascites: Code(s): R18.8 - Other ascites Plan Current plan is to have the patient follow-up with Dr. Calles, his superintendent house and direct further therapy based on his recommendation. Consideration possibly for paracentesis will be deferred to the GI service. Coding Level of Care Code Global (32080) Diagnoses Gallstone K80.20 Ascites R18.8
== END 2023-02-13 14:16 | disposition home or self-care (01) ==
PROVIDERS: PCP Registered Nurse; Visit Provider Surgery
DX: K80.20 Calculus of gallbladder without cholecystitis without obstruction (principal); R18.8 Other ascites
CPT/HCPCS: 99024

== ENCOUNTER 2023-02-19 12:59 | Outpatient (AMB) | payer MEDICAID, SELFPAY ==
--- NOTE | 2023-02-19 13:04 | MHC.OFFVIS ---
Intake Vital Signs 02/19/23 13:05 Height 5 ft 7 in Weight 205 lb 0.478 oz BMI 32.1 BP 115/68 Blood Pressure Location Lt brachial Position Sitting Pulse 99 Intake Visit Reasons: 3 month fu Intake Note: Steven presents in the office as a 3 month follow up. CC: Stomach is bigger, he is gaining weight, pains in the abdomen. Denies irregular bowel movements. He feels like there is liquid in the right side of his abdomen. Recreation Programmer Required: No Allergies shrimp Allergy (Severe, Verified 02/19/23 13:07) Difficulty Breathing atorvastatin [ATORVASTATIN] Adverse Reaction (Intermediate, Verified 02/19/23 13:07) elevated LFTs HPI 3 month fu HPI Details 57 yr old m here for alcohol related cirrhosis f/u RECAP: index visit 10/2019 He did not know why he was referred to liver clinic!! ? he c/o disocmfort in RUQ, on daily basis ? he takes gas x and it doens;t help ? he has nausea, no vomiting but regurgitation ? appetie is poor, ? weight is going down, he is scared by that 230# to 170# ? he also has burning sensation in the stomahc as well ? denies diarrhea or constipation ? no dysphagia ? occ alcohol intake 2-3 beers every 3 weeks ? no drug use He was admitted 12/2022 with RUQ pain He had Surgical assessment and MRI which did not reveal and gallstones or other biliary path ? hep c ab pos, but viral load neg 2010 ? US: 05/2019--diffuse steatosis ? colonoscopy ?1 yr ago with pleet and nml per his report. ? I ordered EGD and CT CT--few small renal stones, no acute process EGD: Streaky erosive esophagitis at [facility], LA grade C He saw cardiology and dx with CAD, did well on stress test, ECHo was ok--medical management US 08/2020 with chronic liver lesion, unchanged, fatty liver, no gallstones Due to ongoing sx of epigastric pain, with gas and bloating, nausea I ordered EGD/colonoscopy 03/2021 Had severe erosive esophagitis, LA grade D, TA removed PPI was increased to 40 mg BID GES also done 02/2021-- no gastroparesis, possible rapid emptying by 2 hrs only 18% left US 04/28 : fatty liver, indeterminate liver lesion, sludge US: 05/29 GB thickening patient had cholecystectomy and umbilical hernia repair 01/2023--having issues with ascotes since then due to decompensation INTERIM: He has noted more abdominal fluid and swelling he denies fever v occ tremors he has not and alcohol for 2 months denies nausea or vomiting denies diarrhea or constipation no blood in stools denies leg swelling EXAM: GENERAL: The patient is relaxed, abdominal distention noted VITAL SIGNS:see workflow HEENT: Nonicteric sclerae, PERRLA, EOMI. Oropharynx clear. Moist mucous membranes. Conjunctivae appear well perfused. No thyroid mass. CHEST: Chest wall is nontender. HEART: Regular rate and rhythm without murmurs. LUNGS: Clear to auscultation bilaterally. ABDOMEN: Soft, positive bowel sounds,distended abdo, fluid wave SKIN: No rash, no excessive bruising, petechiae, or purpura. NEUROLOGIC: Cranial nerves II-XII intact without motor/sensory deficit. psych--nml Assessments ? 1. cirrhosis, decompensated 2/2 recent surgery and anesthesia with ascites, off alcohol for 2 months PLAN 1/ commence low dose aldactone and lasix, lo salt diet 2/ doppler r/o pvt 3/ egd at future date 4/ pending para and ascitic fluid analysis? ? 5/ hep b immune, hep c neg 2019 6/ nutrient screen [facility] Medical History (Updated 02/19/23 @ 13:44 by Harry Garcia MD) Arthritis Atherosclerotic cardiovascular disease CAD (coronary artery disease) Depression Essential hypertension Fatty liver Fibromyalgia Hyperlipidemia, unspecified SALGUERO (nonalcoholic steatohepatitis) Palpitations Type 2 diabetes mellitus with unspecified complications Surgical History (Updated 02/19/23 @ 13:07 by GUNNER Baker) Gallstone History of ankle surgery History of colonoscopy History of umbilical hernia repair Hx of cholecystectomy Hx of endoscopy Hx of hernia repair Family History Father Diabetes Mother No problems noted. Social History Household Members: Spouse Housing: House Are you a primary customer care specialist to a significant other at home: No Do you presently have visiting nurse or other home services: No Alcohol intake: current Alcohol intake frequency: a few times a week Patient Tobacco Use Status: Never used Tobacco service: No Current occupational status: employed Current occupation: [employer] Physical Exam Vital Signs: Last Vital Signs Pulse 99 02/19/23 13:05 BP 115/68 02/19/23 13:05 BMI result Body Mass Index 32.1 Assessment & Plan Assessment & Plan (1) Ascites: Code(s): R18.8 - Other ascites (2) Cirrhosis of liver: Code(s): K74.60 - Unspecified cirrhosis of liver Qualifiers: Ascites presence: with ascites (3) Malnutrition: Code(s): E46 - Unspecified protein-calorie malnutrition Orders: Orders US duplex arterial venous comp Today R18.8 - Other ascites Comprehensive Met. Panel Today K74.60 - Unspecified cirrhosis of liver, K75.81 - Nonalcoholic steatohepatitis (SALGUERO), R18.8 - Other ascites Complete Blood Count Auto Diff Today K74.60 - Unspecified cirrhosis of liver, R18.8 - Other ascites Prothrombin Time INR Today K74.60 - Unspecified cirrhosis of liver, R18.8 - Other ascites Vitamin A Today E46 - Unspecified protein-calorie malnutrition Vitamin B1 Today E46 - Unspecified protein-calorie malnutrition Vitamin B12 and Folate Today E46 - Unspecified protein-calorie malnutrition Vitamin B5 (Pantothenic Acid) Today E46 - Unspecified protein-calorie malnutrition Vitamin B3 (Niacin) Today E46 - Unspecified protein-calorie malnutrition Vitamin B6 Today E46 - Unspecified protein-calorie malnutrition Vitamin D 25-OH Total Today E46 - Unspecified protein-calorie malnutrition Vitamin E Today E46 - Unspecified protein-calorie malnutrition Zinc Today E46 - Unspecified protein-calorie malnutrition Ferritin Today E46 - Unspecified protein-calorie malnutrition Medications: New furosemide 20 mg PO DAILY 30 tabs 2RF spironolactone (Aldactone) 50 mg PO DAILY 30 tabs 2RF Coding Level of Care Code Est Pt Level 4 (53209) Diagnoses Ascites R18.8 Cirrhosis of liver K74.60 Ascites presence: with ascites Malnutrition E46
[2023-02-19 13:05] VITALS: BP 115/68; PULSE 99; BMI 32.1
== END 2023-02-19 14:12 | disposition home or self-care (01) ==
PROVIDERS: PCP Registered Nurse; Visit Provider Internal Medicine Gastroenterology
DX: R18.8 Other ascites (principal); K74.60 Unspecified cirrhosis of liver; E46 Unspecified protein-calorie malnutrition
CPT/HCPCS: 99214

== ENCOUNTER → 2023-02-19 12:59 | Outpatient (BNVA) | payer MEDICAID, SELFPAY | PROVIDERS: PCP Registered Nurse; Visit Provider Internal Medicine Gastroenterology | DX: K74.60 Unspecified cirrhosis of liver (principal); K75.81 Nonalcoholic steatohepatitis (NASH); R18.8 Other ascites; E46 Unspecified protein-calorie malnutrition; Z90.49 Acquired absence of other specified parts of digestive tract; Z98.890 Other specified postprocedural states | CPT/HCPCS: 99212 ==

== ENCOUNTER 2023-02-23 12:49 | Day surgery (SDC) | payer MEDICAID, SELFPAY ==
--- NOTE | ~2023-02-23 | US_ITS ---
EXAMINATION: US ULTRASOUND-GUIDED PARACENTESIS CLINICAL INFORMATION: Ascites and cirrhosis. COMPARISON: CT abdomen and pelvis 02/07/2023. TECHNIQUE: Following explanation of the ultrasound-guided paracentesis procedure, benefits and risk, a written consent was obtained. Patient was placed supine on an ultrasound stretcher and preliminary ultrasound imaging was obtained through the abdomen. An optimal site was selected along the right lower quadrant and marked on the skin. The marked area was cleaned and draped in the usual sterile manner and 1% lidocaine was inserted at the puncture site. Through a small skin incision, a 5 [place] [employer] catheter was advanced into the peritoneal space. After observing fluid return, the stylet was withdrawn and catheter connected to vacuum bottle via connecting cannula. After obtaining all fluid and observing normal fluid return, the catheter was withdrawn and complete hemostasis achieved at puncture site. Patient tolerated the on procedure extremely well. FINDINGS: On preliminary ultrasound imaging, there is moderate fluid within the peritoneal cavity. Approximately 7.3 L of clear light suad-colored fluid was drained. Part of this fluid was sent to lab as per referring physician's orders. US/US paracentesis abd w/image IMPRESSION: Successful ultrasound-guided diagnostic and therapeutic paracentesis performed without immediate complications.
[2023-02-23 13:04] VITALS: BMI 32.6
[2023-02-23 13:20] LABS: INTERNATIONAL NORM RATIO 1.3 (0.9-1.1); Prothrombin Time 15.4 SEC (11.1-13.3)
[2023-02-23 13:23] LABS: Partial Thromboplastin Time 31.9 SEC (26.0-36.4)
[2023-02-23 13:50] LABS: Glucose, Whole Blood 109 mg/dL (60-115)
[2023-02-23 15:05] VITALS: BP 98/65; PULSE 85; RESP 20; TEMP 36.4; O2SAT 98
[2023-02-23 15:15] LABS: MN% 93.1 %; PMN% 6.9 %; WBC Peritoneal Fluid 1.138 X10*3/uL
[2023-02-23 15:18] LABS: RBC Peritoneal Fluid < 0.002 X10*6/uL
[2023-02-23 15:20] VITALS: BP 118/67; PULSE 93; RESP 20; TEMP 36.6; O2SAT 99
[2023-02-23 15:35] VITALS: BP 128/70; PULSE 89; RESP 20; TEMP 36.7; O2SAT 99
[2023-02-23 15:50] VITALS: BP 115/68; PULSE 90; RESP 20; TEMP 36.7; O2SAT 98
[2023-02-23 16:00] VITALS: BP 115/66; PULSE 90; RESP 20; O2SAT 98
[2023-02-23 16:04] LABS: BF Shift QC OK YES; Lymphocyte Peritoneal Fl 54 %; Monocytes Peritoneal Fl 5 %; Neutrophils Peritoneal Fluid 6 %; Other Peritioneal Fl 35 %
[2023-02-24 05:24] LABS: Total Protein Peritoneal Fluid 3.2 GM/DL
== END 2023-02-23 16:13 | disposition home or self-care (01) ==
PROVIDERS: Internal Medicine; PCP Registered Nurse; Visit Provider Radiology Diagnostic Radiology
DX: R18.8 Other ascites (principal); Z90.49 Acquired absence of other specified parts of digestive tract; K75.81 Nonalcoholic steatohepatitis (NASH); I25.10 Atherosclerotic heart disease of native coronary artery without angina pectoris; I10 Essential (primary) hypertension; E11.9 Type 2 diabetes mellitus without complications; Z79.4 Long term (current) use of insulin; Z79.899 Other long term (current) drug therapy; Z88.8 Allergy status to other drugs, medicaments and biological substances
CPT/HCPCS: 36415; 49083; 82042; 82947; 84157; 85610; 85730; 87070; 87073; 87205; 89051; P9047

== ENCOUNTER → 2023-02-23 13:19 | Outpatient (BNV) | payer MEDICAID, SELFPAY | PROVIDERS: PCP Registered Nurse; Visit Provider Radiology Diagnostic Radiology | DX: K75.81 Nonalcoholic steatohepatitis (NASH) (principal); R18.8 Other ascites | CPT/HCPCS: 49083 ==

== ENCOUNTER 2023-02-23 14:10 | Outpatient (REF) | payer MEDICAID, SELFPAY | END 2023-02-23 14:11 | disposition home or self-care (01) | LOC: HO.LNP 14:10 | PROVIDERS: Visit Provider Internal Medicine | DX: R18.8 Other ascites (principal) | CPT/HCPCS: 88112; 88305 ==

== ENCOUNTER 2023-03-06 15:30 | Outpatient (REF) | payer MEDICAID, SELFPAY ==
[2023-03-06 16:33] LABS: Urine Cytology See Pathology rpt
== END 2023-03-06 15:31 | disposition home or self-care (01) ==
LOC: HO.LNP 15:30
PROVIDERS: PCP Registered Nurse; Visit Provider Nurse Practitioner Family
DX: R39.9 Unspecified symptoms and signs involving the genitourinary system (principal); N40.0 Benign prostatic hyperplasia without lower urinary tract symptoms; E11.69 Type 2 diabetes mellitus with other specified complication; N52.1 Erectile dysfunction due to diseases classified elsewhere; R31.29 Other microscopic hematuria
CPT/HCPCS: 81003; 88112; 99212; 99213

== ENCOUNTER 2023-03-06 15:30 | Outpatient (AMB) | payer MEDICAID, SELFPAY ==
--- NOTE | 2023-03-06 15:31 | MHC.OFFVIS ---
Intake Intake Visit Reasons: Overlying scrotal skin thickening Intake Note: New Patient presents for initial visit overlying skin thickening Urology Medications: none Blood Thinner: none Business Objects Report Developer Required: No Accompanied by: Self / Same As Patient Allergies shrimp Allergy (Severe, Verified 03/06/23 20:51) Difficulty Breathing atorvastatin [ATORVASTATIN] Adverse Reaction (Intermediate, Verified 03/06/23 20:51) elevated LFTs Medication List - Last Reconciled 03/06/23 by CIARRA Lo- cholecalciferol (vitamin D3) 50 mcg PO DAILY furosemide 20 mg PO DAILY hydrocodone-acetaminophen 5-325 mg 1 tab PO Q4-6H PRN insulin degludec (Tresiba FlexTouch U-100 insulin) 13 units subcut BEDTIME insulin lispro (Humalog KwikPen (U-100) Insulin) 1 sliding scale dose subcut TIDAC lidocaine 5% 1 patch topical DAILY lisinopril 40 mg PO DAILY spironolactone (Aldactone) 50 mg PO DAILY HPI HPI Comments History of Present Illness Details Steven is a very pleasant 57-year-old male patient of Dr. Santiago. He has a past medical history of arthritis, ACD, CAD, depression, hypertension, fatty liver, fibromyalgia, hyperlipidemia, non alcoholic steatohepatitis, and type 2 diabetes. He presents to the office today for follow-up of his recent scrotal and penile edema. In discussion with the patient today he reports to be doing and feeling well. He reports having had recent cholecystectomy and repair of umbilical hernia approximately 1 month ago here at [facility]. He reports noting increase in abdominal swelling approximately 1 week status post surgery at which time he seeked emergency room care and patient was found to have ascites. He reports following up with Dr. Silva and having approximately 1.5 L removed. He reports during this time of abdominal swelling he also noted penile and scrotal swelling at which time he reports has since subsided. He states since having his ascites removed/drained swelling has significantly improved. In assessement of the patient today no abnormalities noted within the area. No swelling, lesions, and or drainage noted. Bilateral testicles and scrotum within normal limits. The penis is uncircumcised and also WNL. Of note, patient was seen by Dr. Prieto in the past for longstanding history of BPH and erectile dysfunction. In discussion with the patient today he reports symptoms had been improving on 5 mg of Cialis daily. In office urinalysis results reviewed with the patient today. Microscopic hematuria noted. Discussed at length potential causes for microscopic hematuria as well as further microscopic hematuria workup to include imaging, cytology, and in office cystoscopy. The patient otherwise denies any urinary issues or concerns at this time. When asked he currently denies urinary urgency, urinary frequency, incontinence, nocturia, hematuria, dysuria, foul smelling urine, changes to urinary stream, flank pain, fever, and or chills. He is happy with his current voiding parameters on Cilais 5mg daily. [facility] Medical History (Updated 03/06/23 @ 20:47 by KELSI Lo) Arthritis Atherosclerotic cardiovascular disease CAD (coronary artery disease) Depression Essential hypertension Fatty liver Fibromyalgia Hyperlipidemia, unspecified SALGUERO (nonalcoholic steatohepatitis) Palpitations Type 2 diabetes mellitus with unspecified complications Surgical History (Updated 02/19/23 @ 13:07 by GUNNER Baker) Gallstone History of ankle surgery History of colonoscopy History of umbilical hernia repair Hx of cholecystectomy Hx of endoscopy Hx of hernia repair Family History Father Diabetes Mother No problems noted. Social History Household Members: Spouse Housing: House Are you a primary home care nurse to a significant other at home: No Do you presently have visiting nurse or other home services: No Alcohol intake: current Alcohol intake frequency: a few times a week Patient Tobacco Use Status: Never used Tobacco service: No Current occupational status: employed Current occupation: [employer] Review of Systems Const Reports as per HPI Eyes Reports no additional complaints ENT Reports no additional complaints Card Reports as per HPI Resp Reports as per HPI GI Reports as per HPI Reports as per HPI Musc Reports as per HPI Neuro Reports no additional complaints Psych Reports as per HPI Endo Reports as per HPI Physical Exam Const General: cooperative, comfortable, no acute distress, well developed, alert and awake Orientation/consciousness: patient oriented x3 Limitations: no limitations HEENT Head: Yes normal to inspection, Yes normocephalic and Yes atraumatic Ears: hearing grossly normal bilaterally Eyes General: appearance normal, both eyes and all related structures Neck Neck: Yes normal visual inspection and Yes trachea midline Chest Chest palpation & inspection: normal inspection of the chest Resp Effort & Inspection: normal respiratory effort and able to speak in complete sentences Cardio Rate: regular rate GI Inspection: Yes other (round) General: Yes no CVA tenderness and No other Male General Exam: Yes normal external exam Penis: normal penis and uncircumcised Meatus: meatus normal Scrotum: scrotum normal Testes: Testes normal Back/Spine/Pelvis Back: no CVA tenderness Skin General skin exam: no rashes or lesions noted Neuro General: patient oriented x3 Extrem General: Yes normal to inspection Psych Appearance: grossly normal and well kempt Mental Status: mental status grossly normal Speech and movement: Normal speech and movement present and Clear speech present Affect: normal affect Attitude: cooperative Thought process: Normal thought process present Thought content: Normal thought content present Insight: Fair insight present (Psych) Judgement: Fair judgement present (Psych) Results AMB Urinalysis, Automated UA Leukoctes 0 Radha/uL Last Edit by [facility] on 03/06/23 15:50 UA Nitrite Negative Last Edit by [facility] on 03/06/23 15:50 UA Urobilinogen 0.2 mg/dL Last Edit by [facility] on 03/06/23 15:50 UA Protein 0 mg/dL Last Edit by [facility] on 03/06/23 15:50 UA pH 6.0 Last Edit by [facility] on 03/06/23 15:50 UA Blood 25 Gareth/uL Last Edit by [facility] on 03/06/23 15:[address] [place] 1.010 Last Edit by [facility] on 03/06/23 15:50 UA Ketone Negative Last Edit by [facility] on 03/06/23 15:50 UA Bilirubin 0 mg/dL Last Edit by [facility] on 03/06/23 15:50 UA Glucose 0 mg/dL Last Edit by [facility] on 03/06/23 15:50 Results Reviewed Results Reviewed: Laboratory Last Values Urine pH (Auto) 6.0 03/06/23 15:[address] [place] (Auto) 1.010 03/06/23 15:40 Urine Protein (Auto) 0 mg/dL 08/29/23 15:40 Glucose (UA)(Auto) 0 mg/dL 03/06/23 15:40 Urine Ketones (Auto) Negative 03/06/23 15:40 Urine Blood (Auto) 25 Gareth/uL 03/06/23 15:40 Urine Nitrite (Auto) Negative 03/06/23 15:40 Urine Bilirubin (Auto) 0 mg/dL 03/06/23 15:40 Urine Urobilinogen (Auto) 0.2 mg/dL 03/06/23 15:40 Leukocyte Esterase (Auto) 0 Radha/uL 03/06/23 15:40 Assessment & Plan Assessment & Plan (1) BPH (benign prostatic hyperplasia): Code(s): N40.0 - Benign prostatic hyperplasia without lower urinary tract symptoms (2) Lower urinary tract symptoms: Code(s): R39.9 - Unspecified symptoms and signs involving the genitourinary system (3) Erectile dysfunction associated with type 2 diabetes mellitus: Code(s): E11.69 - Type 2 diabetes mellitus with other specified complication; N52.1 - Erectile dysfunction due to diseases classified elsewhere (4) Microscopic hematuria: Code(s): R31.29 - Other microscopic hematuria Plan In office urinalysis results reviewed with the patient today; as noted above; will send for urine cytology. Patient reports swelling has since subsided since removal ascites Discussed at length potential causes for microscopic hematuria as well as further microscopic hematuria workup. Patient denies any bothersome urinary issues or concerns at this time. Continue 5 mg as Cialis as discussed and prescribed. Will obtain retroperitoneal ultrasound for further assessment evaluation. Will obtain PSA for further assessment and evaluation Discussed at length importance of managing diabetes for improvement in urinary symptoms as well as for overall health and well-being. Follow-up in 6-8 weeks with imaging and labs to be completed prior; or sooner with any issues, concerns, and or questions. Orders: Orders Prostate Specific Antigen 6 Months N40.0 - Benign prostatic hyperplasia without lower urinary tract symptoms US retroperitoneal comp Today R39.9 - Unspecified symptoms and signs involving the genitourinary system Urine Cytology Today R39.9 - Unspecified symptoms and signs involving the genitourinary system AMB Urinalysis Automated Today Z13.9 - Encounter for screening, unspecified Patient Instructions: The patient had an opportunity to ask questions regarding the treatment plan. All questions were answered. Physical exam, labs, and imaging were discussed and reviewed in detail. As well as risks, benefits, and discussion of treatment choices. No major barriers to understanding were identified. The patient expressed understanding and agreement with the above treatment plan. The patient was made aware they should contact our office by phone for worsening of their current condition, the appearance of new symptoms, or with any questions or concerns. Compliance is encouraged with any medications and follow up testing that is ordered. It is a privilege to be allowed the opportunity to participate in? your urological care.? Again, if you have any questions or concerns If you have any questions or concerns please do not hesitate to contact me. The office is [phone]. This note is constructed using voice recognition software. While every effort has been made to ensure accuracy operations technician errors may have been included. Yours sincerely, KELSI Lo Coding Level of Care Code Est Pt Level 3 (77326) Diagnoses BPH (benign prostatic hyperplasia) N40.0 Lower urinary tract symptoms R39.9 Erectile dysfunction associated with type 2 diabetes mellitus E11.69; N52.1 Microscopic hematuria R31.29
== END 2023-03-06 16:16 | disposition home or self-care (01) ==
PROVIDERS: PCP Registered Nurse; Visit Provider Nurse Practitioner Family
DX: N40.0 Benign prostatic hyperplasia without lower urinary tract symptoms (principal); R39.9 Unspecified symptoms and signs involving the genitourinary system; E11.69 Type 2 diabetes mellitus with other specified complication; N52.1 Erectile dysfunction due to diseases classified elsewhere; R31.29 Other microscopic hematuria

== ENCOUNTER 2023-03-14 09:13 | Outpatient (REF) | payer MEDICAID, SELFPAY ==
--- NOTE | ~2023-03-14 | US_ITS ---
EXAMINATION: US abdomen complete CLINICAL INFORMATION: Ascites. Evaluate for portal vein thrombosis. COMPARISON: CT abdomen and pelvis 02/07/2023. TECHNIQUE: Real-time imaging of the abdominal viscera. Color and spectral Doppler evaluation of the hepatic vasculature. FINDINGS: LIVER: The liver is enlarged measuring 21.5 cm in right lobe length. Surface contour is nodular consistent with cirrhosis. No discrete liver mass. No biliary ductal dilatation. SPLENIC VEIN: Patent with normal waveform. HEPATIC VEINS: Patent with normal waveforms. PORTAL VEINS: Patent. Loss of respiratory phasicity. Hepatopetal blood flow. Recanalized umbilical vein. HEPATIC ARTERIES: Normal upstroke and diastolic flow. INFERIOR VENA CAVA: Patent with normal waveform. GALLBLADDER: Normal. The gallbladder is physiologically distended without evidence of stones, sludge, polyps, wall thickening or pericholecystic fluid. COMMON BILE DUCT: Obscured by bowel gas. PANCREAS: Obscured by bowel gas. RIGHT KIDNEY: Normal. No hydronephrosis. No renal calculi or focal parenchymal lesions. The kidney measures 12.3 cm in maximum dimension LEFT KIDNEY: Normal. No hydronephrosis. No renal calculi or focal parenchymal lesions. The kidney measures 10.9 cm in maximum dimension. SPLEEN: Normal. The spleen measures 10.5 cm in maximum dimension. ABDOMINAL AORTA: The visualized proximal segment is normal in caliber. FREE FLUID: Moderate simple appearing ascites. US/US duplex arterial venous comp IMPRESSION: Cirrhotic liver. Doppler evaluation demonstrates a patent portal vein. No evidence of portal vein thrombosis. Evidence of portal hypertension with recanalized umbilical vein and loss of normal respiratory variation. Normal size spleen. Moderate ascites.
--- NOTE | ~2023-03-14 | US_ITS ---
EXAMINATION: US abdomen complete CLINICAL INFORMATION: Ascites. Evaluate for portal vein thrombosis. COMPARISON: CT abdomen and pelvis 02/07/2023. TECHNIQUE: Real-time imaging of the abdominal viscera. Color and spectral Doppler evaluation of the hepatic vasculature. FINDINGS: LIVER: The liver is enlarged measuring 21.5 cm in right lobe length. Surface contour is nodular consistent with cirrhosis. No discrete liver mass. No biliary ductal dilatation. SPLENIC VEIN: Patent with normal waveform. HEPATIC VEINS: Patent with normal waveforms. PORTAL VEINS: Patent. Loss of respiratory phasicity. Hepatopetal blood flow. Recanalized umbilical vein. HEPATIC ARTERIES: Normal upstroke and diastolic flow. INFERIOR VENA CAVA: Patent with normal waveform. GALLBLADDER: Normal. The gallbladder is physiologically distended without evidence of stones, sludge, polyps, wall thickening or pericholecystic fluid. COMMON BILE DUCT: Obscured by bowel gas. PANCREAS: Obscured by bowel gas. RIGHT KIDNEY: Normal. No hydronephrosis. No renal calculi or focal parenchymal lesions. The kidney measures 12.3 cm in maximum dimension LEFT KIDNEY: Normal. No hydronephrosis. No renal calculi or focal parenchymal lesions. The kidney measures 10.9 cm in maximum dimension. SPLEEN: Normal. The spleen measures 10.5 cm in maximum dimension. ABDOMINAL AORTA: The visualized proximal segment is normal in caliber. FREE FLUID: Moderate simple appearing ascites. US/US abdomen complete IMPRESSION: Cirrhotic liver. Doppler evaluation demonstrates a patent portal vein. No evidence of portal vein thrombosis. Evidence of portal hypertension with recanalized umbilical vein and loss of normal respiratory variation. Normal size spleen. Moderate ascites.
[2023-03-14 09:35] LABS: MANUAL DIFF FLAG NO
[2023-03-14 10:06] LABS: Basophils Absolute Auto 0.1 X10*3/uL (0.0-0.2); Basophils Percent Auto 0.4 % (0-2); Eosinophils Absolute Auto 0.2 X10*3/uL (0.0-0.4); Eosinophils Percent Auto 2.1 % (0-4); Hematocrit 39.7 % (42.0-52.0); Hemoglobin 12.9 g/dl (14.0-18.0); Imm Gran Abs Auto 0.04 X10*3/uL (0.00-0.03); Imm Gran Pct Auto 0.3 % (0.0-0.4); Lymphocytes Absolute Auto 2.6 X10*3/uL (1.2-4.9); Lymphocytes Percent Auto 22.5 % (20-40); Mean Corpuscular HGB Conc 32.5 g/dl (31.0-36.0); Mean Corpuscular Hemoglobin 26.3 pg (27.0-33.0); Monocytes Absolute Auto 1.3 X10*3/uL (0.1-1.2); Monocytes Percent Auto 10.9 % (2-11); Neutrophils Absolute Auto 7.4 x10*3/uL (2.0-8.3); Neutrophils Percent Auto 63.8 % (45-73); Platelet Count 306 X10*3/uL (160-400); Red Cell Distribution Width 12.6 % (11.0-16.0); White Blood Count 11.6 X10*3/uL (4.8-10.8)
[2023-03-14 10:18] LABS: INTERNATIONAL NORM RATIO 1.3 (0.9-1.1); Prothrombin Time 15.7 SEC (11.1-13.3)
[2023-03-14 10:44] LABS: Alanine Aminotransferase 9 U/L (0-40); Albumin Level 3.3 g/dL (3.5-5.0); Alkaline Phosphatase 101 U/L (39-117); Anion Gap 13 (12-20); Aspartate Amino Transferase 18 U/L (5-37); Bilirubin Total 1.2 mg/dL (0.0-1.0); Blood Urea Nitrogen 20 mg/dL (9-16); Calcium 9.5 mg/dL (8.4-10.2); Carbon Dioxide 21 mmol/L (22-29); Chloride 102 mmol/L (96-108); Estimated Glomerular Filt Rate > 60; Glucose Random 217 mg/dL (60-115); Potassium 4.3 mmol/L (3.3-5.1); Sodium 132 mmol/L (135-145); Total Protein 6.9 g/dL (6.5-8.0)
[2023-03-14 11:02] LABS: Prostate Specific Antigen 0.54 ng/mL (<0.05-4.0)
[2023-03-14 11:07] LABS: Ferritin 213 ng/mL (20-250); Vitamin D 25-OH Total 25.5 ng/mL (>30)
[2023-03-14 11:15] LABS: Folate 11.6 ng/mL (> or = 4.0); Vitamin B12 639 pg/mL (200-900)
[2023-03-17 02:19] LABS: Zinc 51 mcg/dL (60-130)
[2023-03-18 13:23] LABS: Vitamin B6 5.5 ng/mL (2.1-21.7)
[2023-03-19 02:40] LABS: Alpha-Tocopherol 9.7 mg/L (5.7-19.9); Beta-Gamma Tocopherol 1.2 mg/L (<=4.3)
[2023-03-19 13:44] LABS: Vitamin B1 7 nmol/L (8-30)
[2023-03-19 16:33] LABS: Vitamin A 14 mcg/dL (38-98)
[2023-03-22 16:53] LABS: Vitamin B5 (Pantothenic Acid) 58 ng/mL (<275)
[2023-03-22 18:13] LABS: Nicotinamide 28 ng/mL; Vit B3 - Nicotinic Acid <20 ng/mL
== END 2023-03-14 09:14 | disposition home or self-care (01) ==
LOC: HO.US 09:13
PROVIDERS: Absent Provider Urology; PCP Registered Nurse; Visit Provider Internal Medicine Gastroenterology
DX: Z12.5 Encounter for screening for malignant neoplasm of prostate (principal); R18.8 Other ascites; E11.69 Type 2 diabetes mellitus with other specified complication; N13.8 Other obstructive and reflux uropathy; N40.1 Benign prostatic hyperplasia with lower urinary tract symptoms; N52.1 Erectile dysfunction due to diseases classified elsewhere; K74.60 Unspecified cirrhosis of liver; K75.81 Nonalcoholic steatohepatitis (NASH); E46 Unspecified protein-calorie malnutrition
CPT/HCPCS: 36415; 76700; 80053; 82306; 82607; 82728; 82746; 84153; 84207; 84425; 84446; 84590; 84591; 84630; 85025; 85610; 93975

== ENCOUNTER 2023-03-21 08:35 | Emergency (ER) | payer MEDICAID, SELFPAY ==
--- NOTE | ~2023-03-21 | US_ITS ---
EXAMINATION: US ULTRASOUND-GUIDED PARACENTESIS CLINICAL INFORMATION: Ascites. COMPARISON: 02/23/2023 TECHNIQUE: Ultrasound-guided paracentesis. FINDINGS: Informed consent was obtained from the patient prior to the procedure. During this process, the procedure and potential alternatives were explained, along with the intended outcome and benefits. The risks of the procedure, as well as the risk of not doing the procedure, were discussed. The patient was given the opportunity to ask questions regarding the procedure and appeared competent to make medical decisions. A signed consent form which documents this discussion was placed in the medical record. Using sterile technique and ultrasound guidance a 5 [place] Yueh needle was directed into the right lower quadrant. A total of 9.8 L of clear yellow fluid was removed. Patient tolerated procedure without difficulty. US/US paracentesis abd w/image IMPRESSION: Paracentesis with removal of 9.8 L of clear yellow fluid.
[2023-03-21 08:37] VITALS: BP 131/75; PULSE 100; RESP 19; TEMP 36.6; O2SAT 95; BMI 31.4
--- NOTE | 2023-03-21 08:59 | ED_ITS ---
HPI - General Adult General Chief complaint: General Medical Stated complaint: Fluid Retention in Stomach Time Seen by Provider: 03/21/23 08:58 History of Present Illness HPI narrative: 57-year-old male with past medical history of non alcoholic cirrhotic hepatitis with cirrhosis and large volume ascites, pancreatitis, alcohol use disorder, diabetes mellitus, gallstones, cholecystectomy, umbilical hernia repair who presents emergency department for evaluation of abdominal distension causing pain and shortness of breath. Patient states that he had a large volume paracentesis of 7.3 L of ascites fluid 3 weeks prior done by interventional radiology. He denied fever, chills, rhinorrhea,cough, chest pain, shortness of breath, he does complain of dyspnea on exertion secondary to his ascites. He denied nausea or vomiting. he denied diarrhea , bloody or dark tarry stools. Related Data Home Medications Medication Instructions Recorded Confirmed insulin degludec 100 unit/mL (3 13 unit subcut BEDTIME 05/26/20 03/06/23 mL) subcutaneous pen (Tresiba FlexTouch U-100 insulin) insulin lispro 100 unit/mL 1 sliding scale dose subcut TIDAC 05/26/20 03/06/23 subcutaneous pen (Humalog KwikPen (U-100) Insulin) lisinopril 40 mg tablet 40 mg PO DAILY 12/15/22 03/06/23 cholecalciferol (vitamin D3) 50 50 mcg PO DAILY 01/01/23 03/06/23 mcg (2,000 unit) tablet lidocaine 5 % topical patch 1 patch topical DAILY 01/01/23 03/06/23 Previous Rx's Medication Instructions Recorded hydrocodone 5 mg-acetaminophen 325 1 tab PO Q4-6H PRN pain #30 tabs 02/01/23 mg tablet furosemide 20 mg tablet 20 mg PO DAILY #30 tabs 02/19/23 spironolactone 50 mg tablet 50 mg PO DAILY #30 tabs 02/19/23 (Aldactone) thiamine HCl (vitamin B1) 100 mg 100 mg PO TID #90 tabs 03/20/23 tablet vitamin A palmitate 3,000 mcg 10,000 unit PO DAILY #90 tabs 03/20/23 (10,000 unit) tablet zinc sulfate 50 mg zinc (220 mg) 50 mg PO DAILY #90 caps 03/20/23 capsule (Orazinc) Allergies Allergy/AdvReac Type Severity Reaction Status Date / Time shrimp Allergy Severe Difficulty Verified 03/21/23 08:37 Breathing atorvastatin [ATORVASTATIN] AdvReac Intermediate elevated Verified 03/21/23 08:37 LFTs Review of Systems 2 Review of Systems: Yes all other systems are reviewed and are negative [facility] Past Medical History Attestation statement: The following information was validated with the patient. [facility] Narrative: social history: He denies tobacco use. denies alcohol or drug use. Medical History (Updated 03/21/23 @ 11:13 by Roc Valdes MD) CAD (coronary artery disease) Palpitations Arthritis Fibromyalgia SALGUERO (nonalcoholic steatohepatitis) Fatty liver Depression Hyperlipidemia, unspecified Type 2 diabetes mellitus with unspecified complications Essential hypertension Atherosclerotic cardiovascular disease Surgical History (Updated 02/19/23 @ 13:07 by GUNNER Baker) Hx of hernia repair Hx of cholecystectomy History of umbilical hernia repair Gallstone Hx of endoscopy History of colonoscopy History of ankle surgery Family History Family History Father Diabetes Mother No problems noted. Social History Social History Household Members: Spouse Housing: House Are you a primary before and after school daycare worker to a significant other at home: No Do you presently have visiting nurse or other home services: No Alcohol intake: unknown Patient Tobacco Use Status: Never used Tobacco Smoked in Last 30 Days: No Use of substances other than those prescribed or required for medical reasons: No Advance Directives: No Advance Directives Information Provided: Yes service: No Current occupational status: employed Current occupation: [employer] Physical Exam ED Vital Signs: Vital Signs - 24 hr 03/21/23 08:37 03/21/23 13:23 03/21/23 14:36 Temperature 98 F Pulse Rate 100 80 81 Respiratory Rate 19 18 18 Blood Pressure 131/75 94/54 L 92/54 L Pulse Oximetry 95 98 98 Oxygen Delivery Method Room Air Room Air Room Air BMI result Body Mass Index 31.4 Vital signs were normal. Exam: General: Awake, alert in no distress Head: Normocephalic, atraumatic EENT: PERRL, Lids normal, sclera normal, conjunctiva normal, nose normal , ears normal, throat without erythema or exudates Neck: Supple, no adenopathy, trachea midline and nontender Lung: breath sounds symmetric, no wheezing, rales or rhonchi Chest: symmetric movement, nontender Heart: regular rate and rhythm, normal S1, S2 no murmurs or rubs Abdomen: Markedly distended abdomen secondary to ascites, mild left lower and right lower quadrant tenderness, no rebound, no voluntary or involuntary guarding Back: no vertebral tenderness, no CVAT Extremities: no deformities, moves all extremities symmetrically Skin: no rashes, no lesion, normal color and warmth Neuro: Awake, alert, oriented, normal speech, cranial nerves intact, moves all extremities symmetrically Psych: Pleasant, cooperative Medications Administered Discontinued Medications Generic Name Dose Route Start Last Admin Trade Name Freq PRN Reason Stop Dose Admin Lidocaine HCl 5 ml 03/21/23 12:33 03/21/23 12:34 Lidocaine Hcl 1 % Mpf 5 Ml Vial SUBCUT 03/21/23 12:34 5 ml ONCE ONE Administration Medical Decision Making Medical Decision Making [facility] Narrative: 57-year-old male with a history of cirrhosis with large volume ascites who had a large volume paracentesis 3 weeks prior (7.3 L ) who presents emergency department for evaluation of increased abdominal girth with abdominal pain and difficulty breathing secondary to his ascites. Patient's review of systems unremarkable pain vital signs were normal. Exam did reveal a tense abdomen with significant ascites patient did have minimal lower abdominal tenderness otherwise exam was otherwise unremarkable. I ordered the following laboratory evaluation on the patient: CBC, CMP, PT/ INR, PTT . 1111 : Patient's laboratory evaluate was unremarkable, Except for slight elevation is INR 1.3 which is consistent with his liver disease. I did discuss large volume paracentesis with the interventional radiology department and they are able to do a large volume paracentesis today. Patient will be transferred to Radiology for the procedure and that he will be re-evaluated here in the emergency department. 1452: The radiologist took off 9.8 L of ascites fluid with the patient's abdomen. 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 I did discuss this with the patient I also gave the patient the radiology number in the event that doctor has son cannot arrange these paracenteses the patient can call Interventional Radiology to try to set up follow-up paracentesis. Differential Diagnosis differential diagnosis includes was not limited to tense ascites, infectious process, spontaneous bacterial peritonitis Admission/Observation Consideration of admission/observation: Escalation of care including admission/observation considered Lab Data MDM Lab Attestation statement: I reviewed the patient's lab results. my independent interpretation patient's laboratory evaluation as follows: Elevated WBC [id number]. Anemia with an H&H of 12.839.8-this is normal sciatic and chronic. Sodium was low 133, BUN elevated 18, glucose elevated 237. LFTs were normal. Albumin low 3.3. INR was elevated at 1.3 with an elevated his PT is 16.3. PTT was normal. 03/21/23 10:25 03/21/23 10:25 Labs: Lab Results 03/21/23 Range/Units 10:25 WBC 11.4 H (4.8-10.8) X10*3/uL RBC 4.97 (4.60-5.80) X10*6/uL Hgb 12.8 L (14.0-18.0) g/dl Hct 39.8 L (42.0-52.0) % MCV 80.1 (80.0-98.0) fL MCH 25.8 L (27.0-33.0) pg MCHC 32.2 (31.0-36.0) g/dl RDW 12.7 (11.0-16.0) % Plt Count 316 (160-400) X10*3/uL MPV 9.1 L (9.4-12.4) fL Immature Gran % (Auto) 0.3 (0.0-0.4) % Neut % (Auto) 69.7 (45-73) % Lymph % (Auto) 18.3 L (20-40) % [place] % (Auto) 9.5 (2-11) % Eos % (Auto) 1.8 (0-4) % Baso % (Auto) 0.4 (0-2) % Lymph # (Auto) 2.1 (1.2-4.9) X10*3/uL [place] # (Auto) 1.1 (0.1-1.2) X10*3/uL Eos # (Auto) 0.2 (0.0-0.4) X10*3/uL Baso # (Auto) 0.1 (0.0-0.2) X10*3/uL Abs Immat Gran (auto) 0.03 (0.00-0.03) X10*3/uL Absolute Neuts (auto) 8.0 (2.0-8.3) x10*3/uL Absolute Nucleated RBC 0.000 (0.0-0.012) X10*3/uL Nucleated RBC % (auto) 0.0 (0.0-0.2) /100WBC PT 16.3 H (11.1-13.3) SEC INR 1.3 H (0.9-1.1) APTT 31.1 (26.0-36.4) SEC Sodium 133 L (135-145) mmol/L Potassium 4.6 (3.3-5.1) mmol/L Chloride 101 (96-108) mmol/L Carbon Dioxide 25 (22-29) mmol/L Anion Gap 12 (12-20) BUN 18 H (9-16) mg/dL Creatinine 0.98 (0.5-1.4) mg/dL Estim Creat Clear Calc 89.4 Estimated GFR > 60 Random Glucose 237 H (60-115) mg/dL Calcium 9.5 (8.4-10.2) mg/dL Total Bilirubin 1.0 (0.0-1.0) mg/dL AST 16 (5-37) U/L ALT 10 (0-40) U/L Alkaline Phosphatase 98 (39-117) U/L Total Protein 7.2 (6.5-8.0) g/dL Albumin 3.3 L (3.5-5.0) g/dL Lipase 47 (8-78) U/L Discharge Plan Discharge Clinical Impression: Tense ascites Cirrhosis Qualifiers: Ascites presence: with ascites Patient Disposition: Home, Self-Care Instructions: Ascites (ED) Additional Instructions: The interventional radiologist took 9.8 L of ascites fluid out of your abdomen today. The radiologist wants you to contact your flight operations manager, Dr. Garcia to determine how frequently you need this procedure done. They recommended that you get it every week. If Dr. Garcia cannot arrange outpatient paracentesis for you then call the radiology department number and ask to speak to the interventional radiology department to see if you can schedule follow-up paracenteses as an outpatient. The radiology department number is [phone]. Ask for the Interventional Radiology nurse to try to schedule your procedure as an outpatient Continue taking medications as prescribed by your providers. Follow-up with your doctor in 2 days. Please return to the emergency department if your symptoms get worse or if you develop any symptoms that are concerning to you. Prescriptions: No Action thiamine HCl (vitamin B1) 100 mg tablet 100 mg PO TID Qty: 90 3RF zinc sulfate [Orazinc] 50 mg zinc (220 mg) capsule 50 mg PO DAILY Qty: 90 1RF vitamin A palmitate 3,000 mcg (10,000 unit) tablet 10,000 unit PO DAILY Qty: 90 1RF hydrocodone-acetaminophen 5-325 mg tablet 1 tab PO Q4-6H PRN (Reason: pain) Qty: 30 0RF Rx Instructions: Partial Fill upon patient request. lisinopril 40 mg tablet 40 mg PO DAILY insulin lispro [Humalog KwikPen Insulin] 100 unit/mL insulin pen 1 sliding scale dose subcut TIDAC Tresiba FlexTouch U-100 100 unit/mL (3 mL) insulin pen 13 unit subcut BEDTIME lidocaine 5 % adhesive patch,medicated 1 patch topical DAILY cholecalciferol (vitamin D3) 50 mcg (2,000 unit) tablet 50 mcg PO DAILY furosemide 20 mg tablet 20 mg PO DAILY Qty: 30 2RF spironolactone [Aldactone] 50 mg tablet 50 mg PO DAILY Qty: 30 2RF Referrals: Harry Garcia MD [Physician] - 1 week ( Recurrent tense ascites, needs to be scheduled for routine large volume paracentesis as an outpatient through interventional radiology)
--- NOTE | 2023-03-21 09:30 | PC.NURSE ---
Pt currently resting on stretcher, appears in NAD. Endorsing 8/10 pain in abdomen. Hx of ascites requiring paracentesis, pt reports that several weeks ago they drain ~7L from his abdomen. VSS. Awaiting orders/provider recommendation. WCTA
[2023-03-21 10:36] LABS: MANUAL DIFF FLAG NO
[2023-03-21 10:40] LABS: Basophils Absolute Auto 0.1 X10*3/uL (0.0-0.2); Basophils Percent Auto 0.4 % (0-2); Eosinophils Absolute Auto 0.2 X10*3/uL (0.0-0.4); Eosinophils Percent Auto 1.8 % (0-4); Hematocrit 39.8 % (42.0-52.0); Hemoglobin 12.8 g/dl (14.0-18.0); Imm Gran Abs Auto 0.03 X10*3/uL (0.00-0.03); Imm Gran Pct Auto 0.3 % (0.0-0.4); Lymphocytes Absolute Auto 2.1 X10*3/uL (1.2-4.9); Lymphocytes Percent Auto 18.3 % (20-40); Mean Corpuscular HGB Conc 32.2 g/dl (31.0-36.0); Mean Corpuscular Hemoglobin 25.8 pg (27.0-33.0); Mean Corpuscular Volume 80.1 fL (80.0-98.0); Mean Platelet Volume 9.1 fL (9.4-12.4); Monocytes Absolute Auto 1.1 X10*3/uL (0.1-1.2); Monocytes Percent Auto 9.5 % (2-11); Neutrophils Percent Auto 69.7 % (45-73); Platelet Count 316 X10*3/uL (160-400); Red Blood Count 4.97 X10*6/uL (4.60-5.80); Red Cell Distribution Width 12.7 % (11.0-16.0); White Blood Count 11.4 X10*3/uL (4.8-10.8)
--- NOTE | 2023-03-21 10:41 | PC.NURSE ---
Pt awaiting IR for paracentesis, currently NPO. IV access obtained, labs collected/sent. Pt currently appears in NAD. RR even and unlabored bilaterally on RA. VSS. WCTA
[2023-03-21 10:44] LABS: INTERNATIONAL NORM RATIO 1.3 (0.9-1.1); Prothrombin Time 16.3 SEC (11.1-13.3)
[2023-03-21 10:47] LABS: Partial Thromboplastin Time 31.1 SEC (26.0-36.4)
[2023-03-21 10:51] LABS: Alanine Aminotransferase 10 U/L (0-40); Albumin Level 3.3 g/dL (3.5-5.0); Alkaline Phosphatase 98 U/L (39-117); Anion Gap 12 (12-20); Aspartate Amino Transferase 16 U/L (5-37); Blood Urea Nitrogen 18 mg/dL (9-16); Calcium 9.5 mg/dL (8.4-10.2); Carbon Dioxide 25 mmol/L (22-29); Chloride 101 mmol/L (96-108); Creatinine Clr Calc Pharmacy 89.4; Estimated Glomerular Filt Rate > 60; Glucose Random 237 mg/dL (60-115); Lipase 47 U/L (8-78); Potassium 4.6 mmol/L (3.3-5.1); Sodium 133 mmol/L (135-145); Total Protein 7.2 g/dL (6.5-8.0)
--- NOTE | 2023-03-21 11:33 | PC.NURSE ---
Pt to IR for paracentesis.
[2023-03-21] MEDS: Lidocaine HCl 1 % MPF 5 ML VIAL SUBCUT (12:34)
[2023-03-21 13:23] VITALS: BP 94/54; PULSE 80; RESP 18; O2SAT 98
--- NOTE | 2023-03-21 13:54 | PC.NURSE ---
IR completed paracentesis, per report 9.8L of fluid removed. Recommending EOW outpatient tap, provider notified. Awaiting provider recommendation. Food/drink provided. Pt currently appears in NAD. VSS. RR even and unlabored bilaterally on RA. Pt denies all complaints at this time. WCTA
[2023-03-21 14:36] VITALS: BP 92/54; PULSE 81; RESP 18; O2SAT 98
== END 2023-03-21 15:04 | disposition home or self-care (01) ==
PROVIDERS: Radiology Diagnostic Radiology; Emergency Provider Emergency Medicine Emergency Medical Services; PCP Registered Nurse
DX: R18.8 Other ascites (principal); R33.9 Retention of urine, unspecified; R06.02 Shortness of breath; Z79.899 Other long term (current) drug therapy
CPT/HCPCS: 36415; 49083; 80053; 83690; 85025; 85610; 85730; 99284; 99285

== ENCOUNTER → 2023-03-21 10:16 | Outpatient (BNV) | payer MEDICAID, SELFPAY | PROVIDERS: Emergency Provider Emergency Medicine Emergency Medical Services; PCP Registered Nurse; Visit Provider Radiology Diagnostic Radiology | DX: R18.8 Other ascites (principal) | CPT/HCPCS: 49083 ==

== ENCOUNTER 2023-03-27 10:38 | Outpatient (REF) | payer MEDICAID, SELFPAY ==
--- NOTE | ~2023-03-27 | US_ITS ---
EXAMINATION: US RETROPERITONEAL COMPLETE (RENAL) CLINICAL INFORMATION: Unspecified symptoms and signs involving the genitourinary system. COMPARISON: CT abdomen and pelvis with contrast 02/07/2023. MR abdomen without contrast 12/16/2022. Ultrasound abdomen limited 12/15/2022. Ultrasound abdomen limited 05/26/2021. TECHNIQUE: Real-time imaging of the kidneys and bladder. Limited visualization due to bowel gas. FINDINGS: RIGHT KIDNEY: 11.2 x 5.3 x 4.3 cm (SAG x AP x TRV). No hydronephrosis. No renal calculi. Renal cortical thickness is normal. LEFT KIDNEY: 9.7 x 5.7 x 5.2 cm (SAG x AP x TRV). No hydronephrosis. No renal calculi. Renal cortical thickness is normal. BLADDER: Ascites in the pelvis. Bladder is well distended.. Bilateral ureteral jets are not demonstrated. Prevoid bladder volume is 2227.4 mL. Postvoid bladder volume is not seen. The bladder and prostate gland were not visualized on postvoid images, although visualization limited due to overlying bowel and ascites. US/US retroperitoneal comp IMPRESSION: No hydronephrosis. No renal calculi. The bladder and prostate gland were not visualized on postvoid images, although visualization limited due to overlying bowel and ascites.
== END 2023-03-27 10:39 | disposition home or self-care (01) ==
LOC: HO.US 10:38
PROVIDERS: Visit Provider Nurse Practitioner Family
DX: R39.9 Unspecified symptoms and signs involving the genitourinary system (principal)
CPT/HCPCS: 76770

== ENCOUNTER 2023-04-04 13:00 | Day surgery (SDC) | payer MEDICAID, SELFPAY ==
[2023-04-04] VITALS (7 sets, daily range): BP systolic 80–105; BP diastolic 44–63; PULSE 87–96; RESP 16–22; TEMP 36.3–36.4; O2SAT 99–100; BMI 30.7
--- NOTE | ~2023-04-04 | US_ITS ---
PROCEDURE: US-GUIDED PARACENTESIS CLINICAL INFORMATION: Ascites. COMPARISON: Ultrasound-guided paracentesis 03/21/2023. TECHNIQUE: Following explaining ultrasound-guided paracentesis procedure, benefits and risk, a written consent was obtained. Patient was placed supine and upright on ultrasound stretcher and preliminary ultrasound imaging through the entire abdomen was performed. An optimal site was selected along the right lower quadrant and marked. The marked site was cleaned and draped in the usual sterile manner with 2% chlorhexidine solution. 1% lidocaine was injected at puncture site. Through a small skin incision, a 5-Maltese bodaplanes catheter was advanced into the peritoneal space. After observing fluid return, stylet was withdrawn and catheter connected to vacuum bottle. After obtaining all fluid and observing no more fluid return, catheter was withdrawn and complete hemostasis achieved at puncture site. Patient tolerated procedure extremely well. FINDINGS: Preliminary ultrasound imaging, there is a large amount of free fluid in the abdomen. Approximately 9.1 L of clear yellowish fluid was drained and none of the fluid was sent to lab. US/US paracentesis abd w/image IMPRESSION: Successful ultrasound-guided therapeutic paracentesis performed through the right lower quadrant.
[2023-04-04 13:32] LABS: Glucose, Whole Blood 312 mg/dL (60-115)
[2023-04-04] MEDS: Lidocaine HCl 1 % MPF 5 ML VIAL SUBCUT (15:28)
== END 2023-04-04 17:03 | disposition home or self-care (01) ==
LOC: HO.SSS 13:02
PROVIDERS: Radiology Diagnostic Radiology; PCP Registered Nurse; Visit Provider Internal Medicine Gastroenterology
DX: R18.8 Other ascites (principal); K74.60 Unspecified cirrhosis of liver; E46 Unspecified protein-calorie malnutrition; K75.81 Nonalcoholic steatohepatitis (NASH); I25.10 Atherosclerotic heart disease of native coronary artery without angina pectoris; I10 Essential (primary) hypertension; E78.5 Hyperlipidemia, unspecified; E11.9 Type 2 diabetes mellitus without complications; M79.7 Fibromyalgia
CPT/HCPCS: 49083; 82947; P9047

== ENCOUNTER → 2023-04-04 14:30 | Outpatient (BNV) | payer MEDICAID, SELFPAY | PROVIDERS: PCP Registered Nurse; Visit Provider Radiology Diagnostic Radiology | DX: R18.8 Other ascites (principal) | CPT/HCPCS: 49083 ==

== ENCOUNTER 2023-04-06 13:47 | Outpatient (AMB) | payer MEDICAID, SELFPAY ==
--- NOTE | 2023-04-06 13:51 | A.OFFVIS_ITS ---
Intake Intake Visit Reasons: follow up/PSA/US(set) Intake Note: Patient presents for follow up visit psa /ultrasound (imaging 03/27/23) (psa 0.54) Urology Medications: none Blood Thinner: none Casket Coverer Required: No Accompanied by: Self / Same As Patient Allergies shrimp Allergy (Severe, Verified 04/06/23 22:27) Difficulty Breathing atorvastatin [ATORVASTATIN] Adverse Reaction (Intermediate, Verified 04/06/23 22:27) elevated LFTs Medication List - Last Reconciled 04/06/23 by CIARRA Lo- cholecalciferol (vitamin D3) 50 mcg PO DAILY furosemide 20 mg PO DAILY hydrocodone-acetaminophen 5-325 mg 1 tab PO Q4-6H PRN insulin degludec (Tresiba FlexTouch U-100 insulin) 13 units subcut BEDTIME insulin lispro (Humalog KwikPen (U-100) Insulin) 1 sliding scale dose subcut TIDAC lidocaine 5% 1 patch topical DAILY lisinopril 40 mg PO DAILY spironolactone (Aldactone) 50 mg PO DAILY thiamine HCl (vitamin B1) 100 mg PO TID vitamin A palmitate 10,000 units PO DAILY zinc sulfate (Orazinc) 50 mg PO DAILY HPI HPI Comments History of Present Illness Details Steven is a very pleasant 57-year-old male patient of Dr. Santiago. He has a past medical history of arthritis, ACD, CAD, depression, hypertension, fatty liver, fibromyalgia, hyperlipidemia, non alcoholic steatohepatitis, and type 2 diabetes. He presents to the office today for follow-up. Of note, patient was seen approxitmately one month ago at which time a retroperitoneal ultrasound was ordered for further assessment evaluation. These results reviewed with the patient today. Bilateral kidneys with no calculi and or hydronephrosis noted. The bladder is well distended. Bilateral ureteral jets are not demonstrated as the bladder and prostate gland were not visualized on post images, although visualization limited due to overlying bowel and ascites. Discussion with the patient today he reports having another paracentesis approximately 2 days ago at which time approximately 9 L were removed due to his ongoing ascites. In review of patient's chart it appears there was a successful ultrasound guided therapeutic paracentesis performed through the right lower quadrant. Patient reports prior to removal of fluid he had noted bilateral lower abdominal pain radiating to his groin left side greater than right. However, he states now that fluid was removed symptoms have somewhat subsided. He reports to be following up with Dr. Nicolas regarding his ascites. PSA reviewed with the patient today. PSA 03/31--0.5. He currently denies any bothersome urinary issues. He does report urinary frequency and episodes of nocturia however does not find this bothersome as he reports his main concern is his ongoing ascites. In office urinalysis results reviewed with the patient today. He otherwise offers no other issues or concerns at this time. [facility] Medical History History of abdominal paracentesis CAD (coronary artery disease) Palpitations Arthritis Fibromyalgia SALGUERO (nonalcoholic steatohepatitis) Fatty liver Depression Hyperlipidemia, unspecified Type 2 diabetes mellitus with unspecified complications Essential hypertension Atherosclerotic cardiovascular disease Surgical History Hx of cholecystectomy History of umbilical hernia repair Gallstone Hx of endoscopy History of colonoscopy History of ankle surgery Family History Father Diabetes Mother No problems noted. Social History Household Members: Spouse Housing: House Are you a primary memory care program director to a significant other at home: No Do you presently have visiting nurse or other home services: No Alcohol intake: unknown Patient Tobacco Use Status: Never used Tobacco service: No Current occupational status: employed Current occupation: [employer] Review of Systems Const Reports as per HPI Eyes Reports no additional complaints ENT Reports no additional complaints Card Reports as per HPI Resp Reports as per HPI GI Reports as per HPI Reports as per HPI Musc Reports as per HPI Neuro Reports no additional complaints Psych Reports as per HPI Endo Reports as per HPI Physical Exam Const General: cooperative, comfortable, no acute distress, well developed, alert and awake Orientation/consciousness: patient oriented x3 Limitations: no limitations HEENT Head: Yes normal to inspection, Yes normocephalic and Yes atraumatic Ears: hearing grossly normal bilaterally Eyes General: appearance normal, both eyes and all related structures Neck Neck: Yes normal visual inspection and Yes trachea midline Chest Chest palpation & inspection: normal inspection of the chest Resp Effort & Inspection: normal respiratory effort and able to speak in complete sentences Cardio Rate: regular rate GI Inspection: Yes other (round) General: Yes no CVA tenderness Back/Spine/Pelvis Back: no CVA tenderness Skin General skin exam: no rashes or lesions noted Neuro General: patient oriented x3 Extrem General: Yes normal to inspection Psych Appearance: grossly normal and well kempt Mental Status: mental status grossly normal Speech and movement: Normal speech and movement present and Clear speech present Affect: normal affect Attitude: cooperative Thought process: Normal thought process present Thought content: Normal thought content present Insight: Fair insight present (Psych) Judgement: Fair judgement present (Psych) Results AMB Urinalysis, Automated UA Leukoctes 0 Radha/uL Last Edit by [employer] on 04/06/23 14:13 UA Nitrite Last Edit by [employer] on 04/06/23 14:13 UA Urobilinogen 0.2 mg/dL Last Edit by [employer] on 04/06/23 14:13 UA Protein 0 mg/dL Last Edit by [employer] on 04/06/23 14:13 UA pH 6.0 Last Edit by [employer] on 04/06/23 14:13 UA Blood 0 Gareth/uL Last Edit by [employer] on 04/06/23 14:13 UA Specific [place] 1.010 Last Edit by [employer] on 04/06/23 14:13 UA Ketone Last Edit by [employer] on 04/06/23 14:13 UA Bilirubin 0 mg/dL Last Edit by [employer] on 04/06/23 14:13 UA Glucose 0 mg/dL Last Edit by [employer] on 04/06/23 14:13 Results Reviewed Results Reviewed: Laboratory Last Values Urine pH (Auto) 6.0 04/06/23 13:56 Specific [place] (Auto) 1.010 04/06/23 13:56 Urine Protein (Auto) 0 mg/dL 04/06/23 13:56 Glucose (UA)(Auto) 0 mg/dL 04/06/23 13:56 Urine Blood (Auto) 0 Gareth/uL 04/06/23 13:56 Urine Bilirubin (Auto) 0 mg/dL 04/06/23 13:56 Urine Urobilinogen (Auto) 0.2 mg/dL 09/29/23 13:56 Leukocyte Esterase (Auto) 0 Radha/uL 04/06/23 13:56 Date of Service: 03/27/23 EXAMINATION: US RETROPERITONEAL COMPLETE (RENAL) FINDINGS: RIGHT KIDNEY: 11.2 x 5.3 x 4.3 cm (SAG x AP x TRV). No hydronephrosis. No renal calculi. Renal cortical thickness is normal. LEFT KIDNEY: 9.7 x 5.7 x 5.2 cm (SAG x AP x TRV). No hydronephrosis. No renal calculi. Renal cortical thickness is normal. BLADDER: Ascites in the pelvis. Bladder is well distended.. Bilateral ureteral jets are not demonstrated. Prevoid bladder volume is 2227.4 mL. Postvoid bladder volume is not seen. The bladder and prostate gland were not visualized on postvoid images, although visualization limited due to overlying bowel and ascites. IMPRESSION: No hydronephrosis. No renal calculi. The bladder and prostate gland were not visualized on postvoid images, although visualization limited due to overlying bowel and ascites. Assessment & Plan Assessment & Plan (1) Microscopic hematuria: Code(s): R31.29 - Other microscopic hematuria (2) Lower urinary tract symptoms: Code(s): R39.9 - Unspecified symptoms and signs involving the genitourinary system Plan In office urinalysis results reviewed with the patient today; as noted above; no microscopic hematuria noted Recent retroperitoneal ultrasound results reviewed with the patient today; as noted above. Recent PSA results reviewed with the patient today. Patient does report urinary frequency and episodes of nocturia however does not find this bothersome at this time. Discussed limiting fluids 3-4 hours prior to bed to assist with decreasing episodes of nocturia. Follow-up in 3 months with [facility]; or sooner with any issues, concerns, and or questions. Orders: Orders AMB Urinalysis Automated 04/06/23 Z13.9 - Encounter for screening, unspecified Patient Instructions: The patient had an opportunity to ask questions regarding the treatment plan. All questions were answered. Physical exam, labs, and imaging were discussed and reviewed in detail. As well as risks, benefits, and discussion of treatment choices. No major barriers to understanding were identified. The patient expressed understanding and agreement with the above treatment plan. The patient was made aware they should contact our office by phone for worsening of their current condition, the appearance of new symptoms, or with any questions or concerns. Compliance is encouraged with any medications and follow up testing that is ordered. It is a privilege to be allowed the opportunity to participate in? your urological care.? Again, if you have any questions or concerns If you have any questions or concerns please do not hesitate to contact me. The office is [phone]. This note is constructed using voice recognition software. While every effort has been made to ensure accuracy quantitative analyst developer errors may have been included. Yours sincerely, KELSI Lo Coding Level of Care Code Est Pt Level 3 (65308) Diagnoses Microscopic hematuria R31.29 Lower urinary tract symptoms R39.9
== END 2023-04-06 14:36 | disposition home or self-care (01) ==
PROVIDERS: PCP Registered Nurse; Visit Provider Nurse Practitioner Family
DX: R31.29 Other microscopic hematuria (principal); R39.9 Unspecified symptoms and signs involving the genitourinary system
CPT/HCPCS: 99213

== ENCOUNTER → 2023-04-06 13:47 | Outpatient (BNVA) | payer MEDICAID, SELFPAY | PROVIDERS: PCP Registered Nurse; Visit Provider Nurse Practitioner Family | DX: R31.29 Other microscopic hematuria (principal); R39.9 Unspecified symptoms and signs involving the genitourinary system | CPT/HCPCS: 81003; 99212 ==

== ENCOUNTER 2023-04-18 11:52 | Day surgery (SDC) | payer MEDICAID, SELFPAY ==
--- NOTE | ~2023-04-18 | US_ITS ---
EXAMINATION: US-GUIDED PARACENTESIS CLINICAL INFORMATION: Ascites. COMPARISON: 04/04/2023 and 03/27/2023. TECHNIQUE: Ultrasound-guided paracentesis performed by physician resident care assistant, Oswaldo Willett. FINDINGS: The procedure was performed by Oswaldo Willett. A total of 5 liters of cloudy yellow fluid were drained via the right lower quadrant approach. The paracentesis was stopped prior to complete drainage, due to patient's low blood pressure. Patient tolerated the procedure without difficulty and received 75 grams of albumin intravenously. US/US paracentesis abd w/image IMPRESSION: Ultrasound-guided paracentesis with removal of 5 liters of cloudy yellow fluid, performed by Oswaldo Willett.
[2023-04-18 12:04] VITALS: BMI 29.1
--- NOTE | 2023-04-18 12:34 | PC.NURSE ---
Pt came in with low blood pressures on inital assessment L arm 88/58, and 86/56. R arm 87/53. Pt is asymptomatic. Pt denies SOB/ Chest pain. Pt reports has had this issue in past and they have proceeded without issue. PA Willett notified as well as IR nurses Marlon Patiño and Kyleigh Schmidt. No new orders at this time.
[2023-04-18 14:40] VITALS: BP 82/40; PULSE 71; RESP 16; TEMP 36.6; O2SAT 100
[2023-04-18 14:55] VITALS: BP 84/48; PULSE 84; RESP 16; O2SAT 100
[2023-04-18 15:10] VITALS: BP 93/49; PULSE 83; RESP 16; O2SAT 100
[2023-04-18 15:25] VITALS: BP 101/51; PULSE 86; RESP 16; O2SAT 100
--- NOTE | 2023-04-19 07:44 | HO.RADPN ---
RADIOLOGY Narrative Narrative: US Paracentesis Indications: Ascites, cirrhosis Provider: Oswaldo BROWNE Findings: 5 L serous fluid removed. Additional fluid could not be removed due to worsening intraprocedure hypotension (SBP- 70) Complication: None. Patient received 75g albumin intraprocedure. SBP improved to >100 prior to discharge Oswaldo BROWNE Interventional Radiology
== END 2023-04-18 15:45 | disposition home or self-care (01) ==
PROVIDERS: Radiology Diagnostic Radiology; PCP Registered Nurse; Visit Provider Internal Medicine Gastroenterology
DX: R18.8 Other ascites (principal); K76.9 Liver disease, unspecified; R31.29 Other microscopic hematuria; R39.9 Unspecified symptoms and signs involving the genitourinary system; E11.9 Type 2 diabetes mellitus without complications; I10 Essential (primary) hypertension; E78.5 Hyperlipidemia, unspecified; Z90.49 Acquired absence of other specified parts of digestive tract; Z79.4 Long term (current) use of insulin; Z79.899 Other long term (current) drug therapy
CPT/HCPCS: 49083; 82947; P9047

== ENCOUNTER → 2023-04-18 13:30 | Outpatient (BNV) | payer MEDICAID, SELFPAY | PROVIDERS: PCP Registered Nurse; Visit Provider Radiology Diagnostic Radiology | DX: R18.8 Other ascites (principal) | CPT/HCPCS: 49083 ==

== ENCOUNTER 2023-04-24 14:11 | Outpatient (AMB) | payer MEDICAID, SELFPAY ==
[2023-04-24 14:14] VITALS: BP 98/56; PULSE 81
--- NOTE | 2023-04-24 14:14 | A.OFFVIS_ITS ---
Intake Vital Signs 04/24/23 14:14 Weight 193 lb BP 98/56 L Blood Pressure Location Rt brachial Position Sitting Pulse 81 Intake Visit Reasons: ? LIH pain Intake Note: Patient c/o Lt lower abd pain. Reports pain is on and off. Does not take otc pain meds. Patient reports umbilical hernia repair from January healed well. Senior Adults Director Required: No Accompanied by: Self / Same As Patient Allergies shrimp Allergy (Severe, Verified 04/24/23 14:19) Difficulty Breathing atorvastatin [ATORVASTATIN] Adverse Reaction (Intermediate, Verified 04/24/23 14:19) elevated LFTs HPI HPI Comments History of Present Illness Details Patient is well known to me from recent surgery presents with a symptomatic left inguinal hernia. Patient has history of cirrhosis and gets every other week paracentesis because marked ascites. Over the last several weeks time, he has had marked left groin pain secondary to this hernia. He is tolerating a diet. He is having normal bowel habits. He has no other GI issues or complaints. Chart was reviewed patient evaluated. [facility] Medical History History of abdominal paracentesis CAD (coronary artery disease) Palpitations Arthritis Fibromyalgia SALGUERO (nonalcoholic steatohepatitis) Fatty liver Depression Hyperlipidemia, unspecified Type 2 diabetes mellitus with unspecified complications Essential hypertension Atherosclerotic cardiovascular disease Surgical History Hx of cholecystectomy History of umbilical hernia repair Gallstone Hx of endoscopy History of colonoscopy History of ankle surgery Family History Father Diabetes Mother No problems noted. Social History Household Members: Spouse Housing: House Are you a primary respiratory care specialist to a significant other at home: No Do you presently have visiting nurse or other home services: No Alcohol intake: unknown Patient Tobacco Use Status: Never used Tobacco service: No Current occupational status: employed Current occupation: [employer] Physical Exam Vital Signs: Last Vital Signs Pulse 81 04/24/23 14:14 BP 98/56 L 04/24/23 14:14 Chest Other: Chest breath sounds bilaterally, HS 1 in 2 GI Other: Abdomen soft, protuberant secondary to ascites. Patient was examined both supine and standing with Valsalva. Right groin negative. Abdomen as noted above. Prior umbilical hernia repair. From lap choly well healed. Be moderately sized left inguinal hernia. Genitalia within normal limits. Assessment & Plan Assessment & Plan (1) Left inguinal hernia: Code(s): K40.90 - Unilateral inguinal hernia, without obstruction or gangrene, not specified as recurrent (2) Nonalcoholic steatohepatitis (SALGUERO): Code(s): K75.81 - Nonalcoholic steatohepatitis (SALGUERO) Plan Risks, benefits, alternatives of open left inguinal hernia pair with mesh reviewed the patient included but not limited to bleeding, infection, recurrence, numbness, pain, scarring the patient wished to proceed. All questions were answered. Patient receives every other week paracentesis. Current plan is to arrange his surgery a day or 2 following his paracentesis. Arrangements were made for this. Coding Level of Care Code Est Pt Level 5 (57733) Diagnoses Left inguinal hernia K40.90 Nonalcoholic steatohepatitis (SALGUERO) K75.81
== END 2023-04-24 15:27 | disposition home or self-care (01) ==
PROVIDERS: PCP Registered Nurse; Visit Provider Surgery
DX: K40.90 Unilateral inguinal hernia, without obstruction or gangrene, not specified as recurrent (principal); K75.81 Nonalcoholic steatohepatitis (NASH)
CPT/HCPCS: 99214

== ENCOUNTER → 2023-04-24 14:11 | Outpatient (BNVA) | payer MEDICAID, SELFPAY | PROVIDERS: PCP Registered Nurse; Visit Provider Surgery | DX: K40.90 Unilateral inguinal hernia, without obstruction or gangrene, not specified as recurrent (principal); R10.32 Left lower quadrant pain; K76.9 Liver disease, unspecified; K75.81 Nonalcoholic steatohepatitis (NASH) | CPT/HCPCS: 99212 ==

== ENCOUNTER 2023-05-02 13:09 | Day surgery (SDC) | payer MEDICAID, SELFPAY ==
--- NOTE | ~2023-05-02 | US_ITS ---
EXAMINATION: US GUIDED PARACENTESIS CLINICAL INFORMATION: Ascites. COMPARISON: 04/18/2023 and 04/04/2023. TECHNIQUE: Ultrasound-guided paracentesis. FINDINGS: Informed consent was obtained from the patient prior to the procedure. During this process, the procedure and potential alternatives were explained, along with the intended outcome and benefits. The risks of the procedure, as well as the risk of not doing the procedure, were discussed. The patient was given the opportunity to ask questions regarding the procedure and appeared competent to make medical decisions. A signed consent form which documents this discussion was placed in the medical record. Using sterile technique and ultrasound guidance, a 5-[place] Yueh needle was directed into the intra-abdominal fluid collection in the right lower quadrant. A total of 8.5 L of clear yellow/green fluid was removed. Patient received IV albumin at time of study. Patient tolerated the procedure without difficulty. US/US paracentesis abd w/image IMPRESSION: Paracentesis with removal of 8.5 L of fluid, as described.
[2023-05-02 13:32] VITALS: BP 121/70; PULSE 96; RESP 18; TEMP 36.4; O2SAT 100; BMI 28.7
[2023-05-02 13:37] LABS: Glucose, Whole Blood 276 mg/dL (60-115)
[2023-05-02] MEDS: Lidocaine HCl 1 % MPF 5 ML VIAL SUBCUT (15:31)
[2023-05-02 15:40] VITALS: BP 106/64; PULSE 87; RESP 20; TEMP 36.4; O2SAT 100
[2023-05-02 15:55] VITALS: BP 105/66; PULSE 87; RESP 20; O2SAT 100
[2023-05-02 16:10] VITALS: BP 112/68; PULSE 94; RESP 20; O2SAT 99
[2023-05-02 16:25] VITALS: BP 111/59; PULSE 85; RESP 20; TEMP 36.4; O2SAT 99
== END 2023-05-02 16:38 | disposition home or self-care (01) ==
PROVIDERS: Radiology Diagnostic Radiology; PCP Registered Nurse; Visit Provider Internal Medicine Gastroenterology
DX: R18.8 Other ascites (principal); K75.81 Nonalcoholic steatohepatitis (NASH); K76.9 Liver disease, unspecified; E46 Unspecified protein-calorie malnutrition; K21.9 Gastro-esophageal reflux disease without esophagitis; I10 Essential (primary) hypertension; E11.9 Type 2 diabetes mellitus without complications; K42.9 Umbilical hernia without obstruction or gangrene; M79.7 Fibromyalgia
CPT/HCPCS: 49083; 82947; P9047

== ENCOUNTER → 2023-05-02 14:30 | Outpatient (BNV) | payer MEDICAID, SELFPAY | PROVIDERS: PCP Registered Nurse; Visit Provider Radiology Diagnostic Radiology | DX: R18.8 Other ascites (principal) | CPT/HCPCS: 49083 ==

== ENCOUNTER 2023-05-04 06:02 | Day surgery (SDC) | payer MEDICAID, SELFPAY ==
[2023-04-26 10:04] VITALS: BMI 30.2
--- NOTE | 2023-05-03 10:27 | P.CONAN_ITS ---
Documented by User: Maame Ames NP 05/03/23 10:42 HPI - Anesthesia Eval Consult details Narrative: 58yo M for Left Open Repair LIH w/mesh ETOH cirrhosis with ascites. s/p paracentesis 05/02/23. Report unavailable. [place] [facility] [place] benjamin 01/[place]23 with GA-ETT 7.5 Cardiac optimized previously. [place] [facility] [place] Last office visit 01/2023. [facility] Active Problems Active Problems: All Active Problems (Updated 04/26/23 @ 09:50 by Shamika Faustin RN) Left inguinal hernia (Acute) Microscopic hematuria (Acute) Lower urinary tract symptoms (Acute) Malnutrition (Acute) Ascites (Acute) Preop cardiovascular exam (Acute) Chest discomfort (Acute) Murmur, cardiac (Acute) Umbilical hernia (Acute) Abdominal pain (Acute) Greater trochanteric bursitis (Acute) Alcohol use (Acute) Biliary acute pancreatitis (Acute) Bladder outlet obstruction (Acute) Erectile dysfunction associated with type 2 diabetes mellitus (Acute) Liver lesion (Acute) Essential hypertension (Acute) RUQ pain (Acute) Nonalcoholic steatohepatitis (SALGUERO) (Acute) Early satiety (Acute) Palpitations (Acute) Gallstone (Acute) Type 2 diabetes mellitus with unspecified complications (Acute) Atherosclerotic cardiovascular disease (Acute) Past Medical History Medical History (Updated 04/26/23 @ 09:50 by Shamika Faustin RN) Back pain GERD (gastroesophageal reflux disease) History of abdominal paracentesis CAD (coronary artery disease) Palpitations Arthritis Fibromyalgia SALGUERO (nonalcoholic steatohepatitis) Fatty liver Depression Hyperlipidemia, unspecified Type 2 diabetes mellitus with unspecified complications Essential hypertension Atherosclerotic cardiovascular disease Family History Family History Father Diabetes Mother No problems noted. Family history of problems with anesthesia: No Surgical History Surgical History (Updated 04/26/23 @ 09:53 by Shamika Faustin RN) Hx of cholecystectomy History of umbilical hernia repair Gallstone Hx of endoscopy History of colonoscopy History of ankle surgery History of Problems with Anesthesia: No Social History Social History Household Members: Spouse Housing: House Are you a primary managed care manager to a significant other at home: No Do you presently have visiting nurse or other home services: No Alcohol intake: unknown Patient Tobacco Use Status: Current someday Tobacco user Tobacco use type: Cigar Use of substances other than those prescribed or required for medical reasons: No Have you been hit, kicked, punched, or otherwise hurt by someone within the past year? If so, by whom?: No Advance Directives: No Advance Directives Information Provided: Yes Advance Directives on File: No Recently lost weight without trying: No Eating poorly because of decreased appetite: No Nutrition Risks: No Nutritional Risk Poor oral hygiene: No service: No Current occupational status: employed Current occupation: [employer] Meds Allergies Allergy/AdvReac Type Severity Reaction Status Date / Time shrimp Allergy Severe Difficulty Verified 04/24/23 14:19 Breathing atorvastatin [ATORVASTATIN] AdvReac Intermediate elevated Verified 04/24/23 14:19 LFTs Home Medications Medication Instructions Recorded Confirmed Last Taken Type insulin degludec 100 unit/mL (3 20 unit subcut BEDTIME 05/26/20 04/26/23 04/17/23 History mL) subcutaneous pen (Tresiba FlexTouch U-100 insulin) insulin lispro 100 unit/mL 1 sliding scale dose subcut TIDAC 05/26/20 04/26/23 04/18/23 History subcutaneous pen (Humalog KwikPen (U-100) Insulin) cholecalciferol (vitamin D3) 50 50 mcg PO DAILY 01/01/23 04/26/23 04/18/23 History mcg (2,000 unit) tablet lidocaine 5 % topical patch 1 patch topical DAILY 01/01/23 04/26/23 Unknown History Exam Exam Date and Time: May 03, 2023 1027 Height,Weight and Vital Signs: Height 5 ft 7 in Weight 87.543 kg Pertinent Lab Results Pertinent Lab Results: Laboratory Tests 03/21/23 10:25 WBC 11.4 H Hgb 12.8 L Hct 39.8 L Plt Count 316 Sodium 133 L Potassium 4.6 Chloride 101 Carbon Dioxide 25 BUN 18 H Creatinine 0.98 Narrative Narrative: EKG 01/2023 normal sinus rhythm, septal Q-wave noted, no acute ST or T-wave abnormalities, rate 78,? QTC 433 millisecond ECHO 01/2023 Conclusions: - 1. Normal LV systolic function with LVEF of 55-60% with impaired relaxation filling pattern 2. Mildly dilated left atrium 3. Mild aortic stenosis 4. Upper limits of normal ascending aortic size 5. No pericardial effusion Exercise Stress 01/2023 Protocol: LAMONT Max HR: 160 BPM 98% of Pred: 163 BPM Max BP: 182/070 mmHG Max Work Load: 9.2 METS Exercise stress test exercise 7 min 27 sec of Lamont protocol achieving 98% MPHR, without anginal symptoms, without arrhythmias, with normotensive response to exercise, without EKG changes. Test reviewed with Dr. Sharpe. Assessment and Plan Assessment Anesthesia Assessment: Chart Reviewed Final Anesthetic Review Family History of Problems with Anesthesia: No History of Problems with Anesthesia: No Documented by User: Mihn Hernadez MD 05/04/23 07:39 PMFSH Past Medical History Medical History (Updated 04/26/23 @ 09:50 by Shamika Faustin RN) Back pain GERD (gastroesophageal reflux disease) History of abdominal paracentesis CAD (coronary artery disease) Palpitations Arthritis Fibromyalgia SALGUERO (nonalcoholic steatohepatitis) Fatty liver Depression Hyperlipidemia, unspecified Type 2 diabetes mellitus with unspecified complications Essential hypertension Atherosclerotic cardiovascular disease Family History Family History Father Diabetes Mother No problems noted. Surgical History Surgical History (Updated 04/26/23 @ 09:53 by Shamika Faustin RN) Hx of cholecystectomy History of umbilical hernia repair Gallstone Hx of endoscopy History of colonoscopy History of ankle surgery Social History Social History Household Members: Spouse Housing: House Are you a primary managed care manager to a significant other at home: No Do you presently have visiting nurse or other home services: No Alcohol intake: unknown Patient Tobacco Use Status: Current someday Tobacco user Tobacco use type: Cigar Use of substances other than those prescribed or required for medical reasons: No Have you been hit, kicked, punched, or otherwise hurt by someone within the past year? If so, by whom?: No Advance Directives: No Advance Directives Information Provided: Yes Advance Directives on File: No Recently lost weight without trying: No Eating poorly because of decreased appetite: No Nutrition Risks: No Nutritional Risk Poor oral hygiene: No service: No Current occupational status: employed Current occupation: [employer] Meds Allergies Allergy/AdvReac Type Severity Reaction Status Date / Time shrimp Allergy Severe Difficulty Verified 04/24/23 14:19 Breathing atorvastatin [ATORVASTATIN] AdvReac Intermediate elevated Verified 04/24/23 14:19 LFTs Home Medications Medication Instructions Recorded Confirmed Last Taken Type insulin degludec 100 unit/mL (3 20 unit subcut BEDTIME 05/26/20 04/26/23 04/17/23 History mL) subcutaneous pen (Tresiba FlexTouch U-100 insulin) insulin lispro 100 unit/mL 1 sliding scale dose subcut TIDAC 05/26/20 04/26/23 04/18/23 History subcutaneous pen (Humalog KwikPen (U-100) Insulin) cholecalciferol (vitamin D3) 50 50 mcg PO DAILY 01/01/23 04/26/23 04/18/23 History mcg (2,000 unit) tablet lidocaine 5 % topical patch 1 patch topical DAILY 01/01/23 04/26/23 Unknown History Exam Airway Mallampati Class: II TM Dist: >3cm Neck ROM: Limited Heart: rrr Lungs: cta Assessment and Plan Final Anesthetic Review NPO: Yes ASA Class: IV Final Preanesthetic Review: No Changes in Pt Med Stat, Meds/Allgs Chart Reviewed, Consent Obtained/Reviewed and Anes Risks/Benef Reviewed Patient Risk: High Procedure Risk: Intermediate Anesthetic Plan Anesthetic Plan: GA, MAC: and Agree w/ Assess. and Plan Disposition: Standard PACU
--- NOTE | 2023-05-03 10:27 | MHC.SHP ---
Pre-Procedural Eval Section A Date of Service: 05/03/23 The patient is an INPATIENT: No Changes since office visit: No Cold of Flu in the past 2 weeks, No New Medical Problems, No Changes in Medication and No Patient answered all questions The History & Physical has been completed within 30 days and I have reviewed it.: Yes Section B Chief Complaint: Unilateral inguinal hernia, without obstruction or Allergies: Allergies Allergy/AdvReac Type Severity Reaction Status Date / Time shrimp Allergy Severe Difficulty Verified 04/24/23 14:19 Breathing atorvastatin [ATORVASTATIN] AdvReac Intermediate elevated Verified 04/24/23 14:19 LFTs Plan I have reviewed the history and physical and performed a pertinent physical examination on my patient. No changes have occurred unless specified. Time Spent With Patient Time: Total time managing care of this patient today ____ minutes.
[2023-05-04] VITALS (7 sets, daily range): BP systolic 91–106; BP diastolic 41–68; PULSE 85–95; RESP 16–18; TEMP 36.2–36.7; O2SAT 95–100
[2023-05-04 06:35] LABS: Glucose, Whole Blood 177 mg/dL (60-115)
[2023-05-04] MEDS: Lactated Ringers 1,000 ML 50 ML IVCONT (06:39)
--- NOTE | 2023-05-04 08:28 | P.OP_ITS ---
Operative Note Operative Note Date of Service: 05/04/23 Narrative: Preoperative diagnosis: [] Large left inguinal hernia Postop diagnosis: [] Same Procedure [] open left inguinal herniorrhaphy with Bard mesh Surgeon: [] Quan Monument Letterer: [] Mariah Type of Anesthesia: [] MAC Indication for surgery: [] Very larg e indirect hernia sac. No direct hernia Findings: [] Patient brought to the operating room, placed on operative table supine position, after adequate level of MAC anesthesia was induced, the left groin was prepped and draped in usual sterile fashion. Patient u nderwent ilioinguinal nerve block as well as infiltration of the incision site with 0.5% Marcaine/1% lidocaine. A small para inguinal incision was made and carried down through skin, subcutaneous tissue, and Benjie's fascia. External oblique fibers were opened their direction with care to isolate and preserve the ilioinguinal nerve. This matter cord was identified and retracted from the field. Exploration the cord demonstrated a very large indirect hernia sac which was from the cord and reduced. No direct hernia was demonstrated. A Bard plug was placed in the indirect defect, and sutured inferiorly to the inguinal ligament, and superiorly to the transversalis fascia using interrupted 0 Ethibond suture. At completion the procedure, mesh was in good position with no tension or gaps. Mesh also covered inguinal floor. The wound was irrigated, secured hemostasis, and closed in the following manner; external oblique fascia was reapproximated using running 2-0 Vicryl suture. Benjie's fascia was closed using interrupted 3-0 Vicryl sutures. Interrupted inverted deep dermal 3-0 Vicryl sutures followed by running subcuticular 4-0 Vicryl suture placed. Steri-Strips and sterile dressings were applied. Ipsilateral testicle was intrascrotal at completion the procedure. Sponge, needle, and instrument counts reported correct. Patient tolerated the procedure well and emerged anesthesia stable condition. EBL minimal
[2023-05-04] MEDS: fentaNYL citrate/PF 100 MCG/2 ML VIAL 25 MCG IVPUSH ×3 (08:35→08:55)
[2023-05-04] MEDS: oxyCODONE HCl Immed Release 5 MG TABLET PO (08:50)
== END 2023-05-04 09:35 | disposition home or self-care (01) ==
PROVIDERS: PCP Registered Nurse; Visit Provider Surgery
PROC: (CPT 49505; principal; 2023-05-04 07:30)
DX: K40.90 Unilateral inguinal hernia, without obstruction or gangrene, not specified as recurrent (principal); K74.60 Unspecified cirrhosis of liver; K75.81 Nonalcoholic steatohepatitis (NASH); M79.7 Fibromyalgia; I25.10 Atherosclerotic heart disease of native coronary artery without angina pectoris; I10 Essential (primary) hypertension; E78.5 Hyperlipidemia, unspecified; E11.9 Type 2 diabetes mellitus without complications; Z79.4 Long term (current) use of insulin; Z79.899 Other long term (current) drug therapy; Z88.8 Allergy status to other drugs, medicaments and biological substances; Z98.890 Other specified postprocedural states; Z90.49 Acquired absence of other specified parts of digestive tract
CPT/HCPCS: 49505; 82947; C1781; J0690; J1100; J2250; J2371; J2405; J3010

== ENCOUNTER → 2023-05-04 06:02 | Outpatient (BNV) | payer MEDICAID, SELFPAY | PROVIDERS: PCP Registered Nurse; Visit Provider Surgery | DX: K40.90 Unilateral inguinal hernia, without obstruction or gangrene, not specified as recurrent (principal) | CPT/HCPCS: 49505 ==

== ENCOUNTER 2023-05-15 10:37 | Outpatient (AMB) | payer MEDICAID, SELFPAY ==
[2023-05-15 10:44] VITALS: BP 141/75; PULSE 80
--- NOTE | 2023-05-15 10:44 | A.OFFVIS_ITS ---
Intake Vital Signs 05/15/23 10:44 Weight 189 lb BP 141/75 H Blood Pressure Location Rt brachial Position Sitting Pulse 80 Intake Visit Reasons: S/P LIH REPAIR Intake Note: Patient here s/p LIH repair. C/o pain. Not taking rx pain meds. Clean Room Operator Required: No Accompanied by: Self / Same As Patient Allergies shrimp Allergy (Severe, Verified 05/15/23 10:45) Difficulty Breathing atorvastatin [ATORVASTATIN] Adverse Reaction (Intermediate, Verified 05/15/23 10:45) elevated LFTs HPI HPI Comments History of Present Illness Details Patient presents for follow-up. He has minimal incisional discomfort. He is tolerating his diet. He is having regular bowel habits. Patient has had reaccumulation of his ascites and is due for paracentesis next week. [facility] Medical History Back pain GERD (gastroesophageal reflux disease) History of abdominal paracentesis CAD (coronary artery disease) Palpitations Arthritis Fibromyalgia SALGUERO (nonalcoholic steatohepatitis) Fatty liver Depression Hyperlipidemia, unspecified Type 2 diabetes mellitus with unspecified complications Essential hypertension Atherosclerotic cardiovascular disease Surgical History Left inguinal hernia (05/04/23) Hx of cholecystectomy History of umbilical hernia repair Gallstone Hx of endoscopy History of colonoscopy History of ankle surgery Family History Father Diabetes Mother No problems noted. Social History Household Members: Spouse Housing: House Are you a primary career development coordinator to a significant other at home: No Do you presently have visiting nurse or other home services: No Alcohol intake: unknown Patient Tobacco Use Status: Current someday Tobacco user Tobacco use type: Cigar service: No Current occupational status: employed Current occupation: [employer] Physical Exam Vital Signs: Last Vital Signs Pulse 80 05/15/23 10:44 BP 141/75 H 05/15/23 10:44 GI Other: Moderately protuberant abdomen secondary to ascites. Left groin wound is well healed. , clean dry and intact. Assessment & Plan Assessment & Plan (1) Left inguinal hernia: Onset Date: 05/04/23 Comment: Dr. Michael Glass Code(s): K40.90 - Unilateral inguinal hernia, without obstruction or gangrene, not specified as recurrent Plan Patient has been given very specific local instructions including avoiding stress activities, and maintaining his paracentesis scheduled. He will follow otherwise follow-up p.r.n. Coding Level of Care Code Global (54744) Diagnoses Left inguinal hernia K40.90
== END 2023-05-15 10:46 | disposition home or self-care (01) ==
PROVIDERS: PCP Registered Nurse; Visit Provider Surgery
DX: K40.90 Unilateral inguinal hernia, without obstruction or gangrene, not specified as recurrent (principal)
CPT/HCPCS: 99024

== ENCOUNTER → 2023-05-15 10:37 | Outpatient (BNVA) | payer MEDICAID, SELFPAY | PROVIDERS: PCP Registered Nurse; Visit Provider Surgery ==

== ENCOUNTER 2023-06-22 11:43 | Outpatient (REF) | payer MEDICAID, SELFPAY ==
[2023-06-22 15:11] LABS: Alanine Aminotransferase 11 U/L (0-40); Albumin Level 3.8 g/dL (3.5-5.0); Alkaline Phosphatase 97 U/L (39-117); Anion Gap 12 (12-20); Aspartate Amino Transferase 17 U/L (5-37); Bilirubin Direct 0.3 mg/dL (0.0-0.5); Bilirubin Total 0.6 mg/dL (0.0-1.0); Blood Urea Nitrogen 13 mg/dL (9-16); Calcium 9.9 mg/dL (8.4-10.2); Carbon Dioxide 24 mmol/L (22-29); Chloride 101 mmol/L (96-108); Cholesterol 175 mg/dL (<200); Estimated Glomerular Filt Rate > 60; Glucose Random 245 mg/dL (60-115); HDL Cholesterol 65 mg/dL (>40); LDL Cholesterol Calculated 93 mg/dL (<100); Potassium 4.2 mmol/L (3.3-5.1); Sodium 133 mmol/L (135-145); Total Protein 8.2 g/dL (6.5-8.0); Triglycerides 85 mg/dL (<150)
[2023-06-22 15:12] LABS: INTERNATIONAL NORM RATIO 1.2 (0.9-1.1); Prothrombin Time 14.2 SEC (11.1-13.3)
[2023-06-22 15:14] LABS: Partial Thromboplastin Time 34.7 SEC (26.0-36.4)
[2023-06-22 15:25] LABS: Creatinine Urine 20.26 mg/dL; Microalbum/Creatinine Ratio Ur 88.8 ug/mg cr (<30)
== END 2023-06-22 11:44 | disposition home or self-care (01) ==
LOC: HO.CHCLDS 11:43
PROVIDERS: Visit Provider Registered Nurse
DX: K74.60 Unspecified cirrhosis of liver (principal); R18.8 Other ascites; E11.65 Type 2 diabetes mellitus with hyperglycemia; Z79.4 Long term (current) use of insulin
CPT/HCPCS: 36415; 80048; 80061; 80076; 82043; 82570; 85610; 85730

== ENCOUNTER 2023-07-04 09:41 | Outpatient (REF) | payer MEDICAID, SELFPAY ==
[2023-07-04 16:57] LABS: Urine Cytology See Pathology rpt
== END 2023-07-04 09:42 | disposition home or self-care (01) ==
LOC: HO.LNP 09:41
PROVIDERS: PCP Registered Nurse; Visit Provider Nurse Practitioner Family
DX: R31.29 Other microscopic hematuria (principal); R39.9 Unspecified symptoms and signs involving the genitourinary system
CPT/HCPCS: 51798; 81003; 88112; 99212

== ENCOUNTER 2023-07-04 09:41 | Outpatient (AMB) | payer MEDICAID, SELFPAY ==
--- NOTE | 2023-07-04 09:48 | A.OFFVIS_ITS ---
Intake Intake Visit Reasons: 3m/PVR Intake Note: Patient presents for follow up visit PVR/microscopic hematuria Urology Medications: none Blood Thinner: none PVR: 72ml's Face Hardener Required: No Accompanied by: Self / Same As Patient Allergies shrimp Allergy (Severe, Verified 07/05/23 19:22) Difficulty Breathing atorvastatin [ATORVASTATIN] Adverse Reaction (Intermediate, Verified 07/05/23 19:22) elevated LFTs Medication List - Last Reconciled 07/05/23 by KELSI Lo cholecalciferol (vitamin D3) 50 mcg PO DAILY furosemide 20 mg PO DAILY hydrocodone-acetaminophen 5-325 mg 1 tab PO Q4-6H PRN insulin degludec (Tresiba FlexTouch U-100 insulin) 20 units subcut BEDTIME insulin lispro (Humalog KwikPen (U-100) Insulin) 1 sliding scale dose subcut TIDAC lidocaine 5% 1 patch topical DAILY lisinopril 40 mg PO DAILY spironolactone (Aldactone) 50 mg PO DAILY thiamine HCl (vitamin B1) 100 mg PO TID vitamin A palmitate 10,000 units PO DAILY zinc sulfate (Orazinc) 50 mg PO DAILY HPI HPI Comments History of Present Illness Details Steven is a very pleasant 58-year-old male patient of Dr. Santiago. He has a past medical history of arthritis, ACD, CAD, depression, hypertension, fatty liver, fibromyalgia, hyperlipidemia, non alcoholic steatohepatitis, and type 2 diabetes. He presents to the office today for follow-up. In discussion with the patient today reports to be doing and feeling well. He currently denies any bothersome urinary issues or concerns. He does report urinary frequency with episodes of nocturia however does not find this bothersome. PSA 03/31--0.5. In office urinalysis results reviewed with the patient today. PVR 72 mL. He otherwise offers no other issues or concerns at this time. [facility] Medical History Back pain GERD (gastroesophageal reflux disease) CAD (coronary artery disease) Palpitations Arthritis Fibromyalgia SALGUERO (nonalcoholic steatohepatitis) Fatty liver Depression Hyperlipidemia, unspecified Type 2 diabetes mellitus with unspecified complications Essential hypertension Atherosclerotic cardiovascular disease Surgical History Left inguinal hernia (10/27/23) Hx of cholecystectomy History of umbilical hernia repair Gallstone Hx of endoscopy History of colonoscopy History of ankle surgery Family History Father Diabetes Mother No problems noted. Social History Household Members: Spouse Housing: House Are you a primary health care manager to a significant other at home: No Do you presently have visiting nurse or other home services: No Alcohol intake: unknown Comment: uses cane on occasion due to hip arthritis Patient Tobacco Use Status: Current someday Tobacco user Tobacco use type: Cigar service: No Current occupational status: employed Current occupation: [employer] Review of Systems Const Reports as per [facility] Eyes Reports no additional complaints ENT Reports no additional complaints Card Reports as per HPI Resp Reports as per HPI GI Reports as per HPI Reports as per HPI Musc Reports as per HPI Neuro Reports no additional complaints Psych Reports as per HPI Endo Reports as per HPI Physical Exam Const General: cooperative, comfortable, no acute distress, well developed, alert and awake Orientation/consciousness: patient oriented x3 Limitations: no limitations HEENT Head: Yes normal to inspection, Yes normocephalic and Yes atraumatic Ears: hearing grossly normal bilaterally Eyes General: appearance normal, both eyes and all related structures Neck Neck: Yes normal visual inspection and Yes trachea midline Chest Chest palpation & inspection: normal inspection of the chest Resp Effort & Inspection: normal respiratory effort and able to speak in complete sentences Cardio Rate: regular rate GI Inspection: Yes other (round) General: Yes no CVA tenderness Back/Spine/Pelvis Back: no CVA tenderness Skin General skin exam: no rashes or lesions noted Neuro General: patient oriented x3 Extrem General: Yes normal to inspection Psych Appearance: grossly normal and well kempt Mental Status: mental status grossly normal Speech and movement: Normal speech and movement present and Clear speech present Affect: normal affect Attitude: cooperative Thought process: Normal thought process present Thought content: Normal thought content present Insight: Fair insight present (Psych) Judgement: Fair judgement present (Psych) Office Procedures Post Void Residual Post Residual Void Post Void Residual (PVR): 72 [id number] Void Residual by ultrasound Results AMB Urinalysis, Automated UA Leukoctes 0 Radha/uL Last Edit by Olayinka Huizar on 07/04/23 10:14 UA Nitrite Negative Last Edit by [employer] on 07/04/23 10:14 UA Urobilinogen 0.2 mg/dL Last Edit by Brandyce Bress on 07/04/23 10:14 UA Protein 30 mg/dL Last Edit by Brandyce Bress on 07/04/23 10:14 UA pH 6.0 Last Edit by Probe [employer]yce Bress on 07/04/23 10:14 UA Blood 200 Gareth/uL Last Edit by [employer] on 07/04/23 10:14 UA Specific [place] 1.020 Last Edit by [employer] on 07/04/23 10:14 UA Ketone Negative Last Edit by [employer] on 07/04/23 10:14 UA Bilirubin 0 mg/dL Last Edit by [employer] on 07/04/23 10:14 UA Glucose 0 mg/dL Last Edit by Probe [employer]ycmo [employer] on 07/04/23 10:14 Results Reviewed Results Reviewed: Laboratory Last Values Urine pH (Auto) 6.0 07/04/23 09:50 Specific [place] (Auto) 1.020 07/04/23 09:50 Urine Protein (Auto) 30 mg/dL 07/04/23 09:50 Glucose (UA)(Auto) 0 mg/dL 07/04/23 09:50 Urine Ketones (Auto) Negative 07/04/23 09:50 Urine Blood (Auto) 200 Gareth/uL 07/04/23 09:50 Urine Nitrite (Auto) Negative 07/04/23 09:50 Urine Bilirubin (Auto) 0 mg/dL 07/04/23 09:50 Urine Urobilinogen (Auto) 0.2 mg/dL 07/04/23 09:50 Leukocyte Esterase (Auto) 0 Radha/uL 07/04/23 09:50 Assessment & Plan Assessment & Plan (1) Lower urinary tract symptoms: Code(s): R39.9 - Unspecified symptoms and signs involving the genitourinary system (2) Microscopic hematuria: Code(s): R31.29 - Other microscopic hematuria Plan In office urinalysis results reviewed with the patient today; as noted above PVR 72 mL. Patient does report urinary frequency and episodes of nocturia however does not find this bothersome at this time. Discussed limiting fluids 3-4 hours prior to bed to assist with decreasing episodes of nocturia. PSA in 6 months. Discussed bladder triggers/irritants. Follow-up in 6 months with PVR and PSA to be completed prior; or sooner with any issues, concerns, and or questions. Orders: Orders AMB Urinalysis Automated 07/04/23 Z13.9 - Encounter for screening, unspecified Prostate Specific Antigen 6 Months R39.9 - Unspecified symptoms and signs involving the genitourinary system AMB Post Void Residual by ultrasound 07/04/23 N32.0 - Bladder-neck obstruction Urine Cytology 07/04/23 R31.29 - Other microscopic hematuria Patient Instructions: The patient had an opportunity to ask questions regarding the treatment plan. All questions were answered. Physical exam, labs, and imaging were discussed and reviewed in detail. As well as risks, benefits, and discussion of treatment choices. No major barriers to understanding were identified. The patient expressed understanding and agreement with the above treatment plan. The patient was made aware they should contact our office by phone for worsening of their current condition, the appearance of new symptoms, or with any questions or concerns. Compliance is encouraged with any medications and follow up testing that is ordered. It is a privilege to be allowed the opportunity to participate in? your urological care.? Again, if you have any questions or concerns If you have any questions or concerns please do not hesitate to contact me. The office is [phone]. This note is constructed using voice recognition software. While every effort has been made to ensure accuracy field operations farm manager errors may have been included. Yours sincerely, KELSI Lo Coding Level of Care Code Est Pt Level 3 (35032) Diagnoses Lower urinary tract symptoms R39.9 Microscopic hematuria R31.29 CPT Codes Post Residual Void - PVR CPT Code: 90705-Jqbl Void Residual by ultrasound ([id number])
== END 2023-07-04 11:31 | disposition home or self-care (01) ==
PROVIDERS: PCP Registered Nurse; Visit Provider Nurse Practitioner Family
DX: R39.9 Unspecified symptoms and signs involving the genitourinary system (principal); R31.29 Other microscopic hematuria
CPT/HCPCS: 99213

== ENCOUNTER 2023-07-18 14:54 | Outpatient (AMB) | payer MEDICAID, SELFPAY ==
[2023-07-18 14:59] VITALS: BP 128/78; PULSE 84; BMI 31.1
--- NOTE | 2023-07-18 14:59 | MHC.OFFVIS ---
Intake Vital Signs 07/18/23 14:59 Height 5 ft 7 in Weight 198 lb 13.711 oz BMI 31.1 BP 128/78 Blood Pressure Location Rt brachial Position Sitting Pulse 84 Intake Visit Reasons: 6 MON FUP PER DC Intake Note: 6 month follow up Mailing Machine Assistant Required: No Accompanied by: Self / Same As Patient Allergies shrimp Allergy (Severe, Verified 07/18/23 15:01) Difficulty Breathing atorvastatin [ATORVASTATIN] Adverse Reaction (Intermediate, Verified 07/18/23 15:01) elevated LFTs Medication List - Last Reconciled 07/18/23 by Jovany Feliciano MD cholecalciferol (vitamin D3) 50 mcg PO DAILY empagliflozin (Jardiance) 10 mg PO QAM furosemide 20 mg PO DAILY hydrocodone-acetaminophen 5-325 mg 1 tab PO Q4-6H PRN insulin degludec (Tresiba FlexTouch U-100 insulin) 20 units subcut BEDTIME insulin lispro (Humalog KwikPen (U-100) Insulin) 1 sliding scale dose subcut TIDAC lidocaine 5% 1 patch topical DAILY lisinopril 40 mg PO DAILY spironolactone (Aldactone) 50 mg PO DAILY thiamine HCl (vitamin B1) 100 mg PO TID vitamin A palmitate 10,000 units PO DAILY zinc sulfate (Orazinc) 50 mg PO DAILY HPI HPI Comments History of Present Illness Details Steven returns for follow-up. In the past, he has been seen regarding hypertension as well as coronary disease. Overall, he is generally doing okay. No clear cardiac symptoms. No exertional angina or other definitive cardiac concerns. 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 [facility] Medical History Back pain GERD (gastroesophageal reflux disease) CAD (coronary artery disease) Palpitations Arthritis Fibromyalgia SALGUERO (nonalcoholic steatohepatitis) Fatty liver Depression Hyperlipidemia, unspecified Type 2 diabetes mellitus with unspecified complications Essential hypertension Atherosclerotic cardiovascular disease Surgical History History of abdominal paracentesis Left inguinal hernia (05/04/23) Hx of cholecystectomy History of umbilical hernia repair Gallstone Hx of endoscopy History of colonoscopy History of ankle surgery Family History Father Diabetes Mother No problems noted. Social History Household Members: Spouse Housing: House Are you a primary home care consultant to a significant other at home: No Do you presently have visiting nurse or other home services: No Alcohol intake: unknown Comment: uses cane on occasion due to hip arthritis Patient Tobacco Use Status: Current someday Tobacco user Tobacco use type: Cigar service: No Current occupational status: employed Current occupation: [employer] Review of Systems Const Denies weakness ENT Denies dizziness Card Denies chest pain with activity, Denies syncope, Denies rapid heart rate, Denies pedal edema, Denies edema, Denies leg edema, Denies lightheadedness, Denies palpitations, Denies dyspnea, Denies dyspnea on exertion and Denies orthopnea Resp Denies cough, Denies dyspnea and Denies dyspnea on exertion GI Denies hematochezia and Denies change in stool character Musc Denies abnormal gait, Denies muscle cramps, Denies muscle weakness, Denies numbness, Denies radiating pain into limb and Denies tingling Neuro Denies abnormal gait, Denies dizziness, Denies syncope, Denies numbness, Denies tingling and Denies weakness Endo Denies palpitations Physical Exam Vital Signs: Last Vital Signs Pulse 84 07/18/23 14:59 BP 128/78 07/18/23 14:59 BMI result Body Mass Index 31.1 Const General: comfortable and no acute distress Orientation/consciousness: patient oriented x3 HEENT Other: Unremarkable Head: Yes normal to inspection Neck Neck: Yes normal visual inspection Chest Chest palpation & inspection: normal inspection of the chest Resp Auscultation: clear to auscultation bilaterally Cardio Palpation: normal PMI Heart sounds: S1 normal heart sound present, S2 normal heart sound present, no gallops, Murmur heart sound present systolic II/ and at the right sternal border and no rubs GI Palpation (GI): Soft to palpation Back/Spine/Pelvis Other: unremarkable Skin General skin exam: no rashes or lesions noted Neuro General: patient oriented x3 Extrem General: Yes normal to inspection Psych Mental Status: mental status grossly normal Results Reviewed Results Reviewed: Echocardiogram -normal LVEF, 55-60%; mildly elevated aortic valve gradients but no significant stenosis. ETT - 7.8 Mets on the Lamont protocol without any EKG evidence of ischemia. Echocardiographic portion showed lack of systolic thickening of basal inferior septal and basal inferior mesa in some views. Holter monitor essentially unremarkable. RADHA without any arrhythmias. Assessment & Plan Assessment & Plan (1) Atherosclerotic cardiovascular disease: Code(s): I25.10 - Atherosclerotic heart disease of [place] coronary artery without angina pectoris Plan: Coronary CTA findings--LAD had scattered calcifications. At, the proximal LAD, mild mixed plaque. Just after the D2 takeoff there is mixed plaque in LAD causing 50% narrowing. Circumflex had scattered calcifications. Midportion had prominent calcification. Cannot exclude high-grade stenosis in that area. Vessel relatively small. Right coronary artery had mild calcification. Total coronary artery calcium score 186. In the stress test from 2022, able to exercise for 9.2 Mets and reached target heart rate but no symptoms like angina. Echocardiogram with LVEF of 55-60%. Mild aortic stenosis. Overall, treat for stable CAD. Unable to take aspirin from reflux. He has also had a lot of issues with statins in the past. Has tried rosuvastatin, Lipitor extra. May try Zetia. Recheck lipids and LFTs in a few weeks. (2) Non-rheumatic aortic stenosis: Code(s): I35.0 - Nonrheumatic aortic (valve) stenosis Plan: Not hemodynamically significant at this time. Can be followed clinically and by echocardiogram. (3) Essential hypertension: Code(s): I10 - Essential (primary) hypertension Plan: Currently stay to be on lisinopril and spironolactone. No changes. (4) Type 2 diabetes mellitus with unspecified complications: Comment: IDDM-taking Tresiba & Novolog-glucose usually ~ 150-160 Code(s): E11.8 - Type 2 diabetes mellitus with unspecified complications Plan: On Insulin. Plan Total time spent including review of records, counseling, documentation-35 minutes. Orders: Orders Liver Panel 3 Months I25.10 - Atherosclerotic heart disease of [place] coronary artery without angina pectoris Lipid Panel 3 Months E78.5 - Hyperlipidemia, unspecified Medications: New ezetimibe (Zetia) 10 mg PO DAILY 90 tabs 3RF Coding Level of Care Code Est Pt Level 4 (32251) Diagnoses Atherosclerotic cardiovascular disease I25.10 Non-rheumatic aortic stenosis I35.0 Essential hypertension I10 Type 2 diabetes mellitus with unspecified complications E11.8
== END 2023-07-18 15:25 | disposition home or self-care (01) ==
PROVIDERS: PCP Registered Nurse; Referring Provider Registered Nurse; Visit Provider Internal Medicine
DX: I25.10 Atherosclerotic heart disease of native coronary artery without angina pectoris (principal); I35.0 Nonrheumatic aortic (valve) stenosis; I10 Essential (primary) hypertension; E11.8 Type 2 diabetes mellitus with unspecified complications
CPT/HCPCS: 99214

== ENCOUNTER → 2023-07-18 14:54 | Outpatient (BNVA) | payer MEDICAID, SELFPAY | PROVIDERS: PCP Registered Nurse; Visit Provider Internal Medicine | DX: I25.10 Atherosclerotic heart disease of native coronary artery without angina pectoris (principal); I35.0 Nonrheumatic aortic (valve) stenosis; I10 Essential (primary) hypertension; E11.8 Type 2 diabetes mellitus with unspecified complications | CPT/HCPCS: 99212 ==

== ENCOUNTER 2023-07-31 10:54 | Outpatient (AMB) | payer MEDICAID, SELFPAY ==
--- NOTE | 2023-07-31 10:55 | HO.NEPHOV ---
HPI HPI Comments History of Present Illness Details Steven is a very pleasant man with a h/o arthritis, ACD, CAD, depression, hypertension, fatty liver, fibromyalgia, hyperlipidemia, non alcoholic steatohepatitis, and type 2 diabetes. Essentially normal renal funtions Referred for proteinuria [facility] Medical History Back pain GERD (gastroesophageal reflux disease) CAD (coronary artery disease) Palpitations Arthritis Fibromyalgia SALGUERO (nonalcoholic steatohepatitis) Fatty liver Depression Hyperlipidemia, unspecified Type 2 diabetes mellitus with unspecified complications Essential hypertension Atherosclerotic cardiovascular disease Surgical History History of abdominal paracentesis Left inguinal hernia (05/04/23) Hx of cholecystectomy History of umbilical hernia repair Gallstone Hx of endoscopy History of colonoscopy History of ankle surgery Family History Father Diabetes Mother No problems noted. Social History Household Members: Spouse Housing: House Are you a primary child caregiver private home to a significant other at home: No Do you presently have visiting nurse or other home services: No Alcohol intake: unknown Comment: uses cane on occasion due to hip arthritis Patient Tobacco Use Status: Current someday Tobacco user Tobacco use type: Cigar service: No Current occupational status: employed Current occupation: [employer] Vital Signs 07/31/23 10:56 Height 5 ft 7 in BP 120/72 Blood Pressure Location Lt brachial Position Sitting Pulse 88 Pulse Source Pulse Oximeter Pulse Oximetry (%) 99 Oxygen Delivery Method Room Air Physical Exam Vital Signs: Last Vital Signs Pulse 88 07/31/23 10:56 BP 120/72 07/31/23 10:56 Pulse Ox 99 07/31/23 10:56 Oxygen Delivery Method Room Air 07/31/23 10:56 Const General: comfortable Nutritional Appearance: well nourished Orientation/consciousness: patient oriented x3 HEENT Head: No normal to inspection Mouth: moist mucous membranes Neck Neck: Yes supple and Yes no JVD Resp Auscultation: clear to auscultation bilaterally, no rales and rub present Cardio Jugular venous distension: no JVD Palpation: no palpable S3 and no palpable S4 Heart sounds: no rubs GI Palpation (GI): Soft to palpation and nontender Percussion: No Fluid wave present General: Yes no CVA tenderness Back/Spine/Pelvis Back: no CVA tenderness Skin General skin exam: no rashes or lesions noted Neuro General: patient oriented x3 Extrem General: Yes no pedal edema and No clubbing Assessment & Plan Assessment & Plan (1) Essential hypertension: Code(s): I10 - Essential (primary) hypertension (2) Proteinuria: Code(s): R80.9 - Proteinuria, unspecified (3) Hyponatremia: Code(s): E87.1 - Hypo-osmolality and hyponatremia Plan Middle aged man with Essentially normal renal function in a setting of DM and SALGUERO with minimal proteinuria Recommend: Keep ACEi for renal protection Maintain BP < 130/80 Avoid Hypotension Watch K while on Aldactone and ACEi Restrict PO water intake due to hyponatremia Agree with current meds including SGLT-2 inhibitors Work up as outlined. No changes were made today Orders: Orders Calcium 3 Months E87.1 - Hypo-osmolality and hyponatremia, R80.9 - Proteinuria, unspecified Total Protein Urine Random 3 Months E87.1 - Hypo-osmolality and hyponatremia, R80.9 - Proteinuria, unspecified Creatinine Urine 3 Months E87.1 - Hypo-osmolality and hyponatremia, R80.9 - Proteinuria, unspecified UA and rflx microscopic 3 Months E87.1 - Hypo-osmolality and hyponatremia, R80.9 - Proteinuria, unspecified Complete Blood Count no Diff 3 Months E87.1 - Hypo-osmolality and hyponatremia, R80.9 - Proteinuria, unspecified Protein Electrophoresis, Serum 3 Months E87.1 - Hypo-osmolality and hyponatremia, R80.9 - Proteinuria, unspecified Electrolytes 3 Months E87.1 - Hypo-osmolality and hyponatremia, R80.9 - Proteinuria, unspecified Blood Urea Nitrogen 3 Months E87.1 - Hypo-osmolality and hyponatremia, R80.9 - Proteinuria, unspecified Creatinine 3 Months E87.1 - Hypo-osmolality and hyponatremia, R80.9 - Proteinuria, unspecified Vitamin D 25-OH (D2 and D3) 3 Months E87.1 - Hypo-osmolality and hyponatremia, R80.9 - Proteinuria, unspecified Coding Level of Care Code Est Pt Level 4 (93379) Diagnoses Essential hypertension I10 Proteinuria R80.9 Hyponatremia E87.1 Results Reviewed Nephrology Results: Sodium 133 mmol/L (135-145) L 06/22/23 Potassium 4.2 mmol/L (3.3-5.1) 06/22/23 Chloride 101 mmol/L (96-108) 06/22/23 Carbon Dioxide 24 mmol/L (22-29) 06/22/23 BUN 13 mg/dL (9-16) 06/22/23 Creatinine 0.88 mg/dL (0.5-1.4) 06/22/23 Calcium 9.9 mg/dL (8.4-10.2) 06/22/23 Urine Creatinine 20.26 mg/dL 06/22/23
[2023-07-31 10:56] VITALS: BP 120/72; PULSE 88; O2SAT 99
== END 2023-07-31 11:17 | disposition home or self-care (01) ==
PROVIDERS: PCP Registered Nurse; Referring Provider Registered Nurse; Visit Provider Internal Medicine Hypertension Specialist
DX: I10 Essential (primary) hypertension (principal); R80.9 Proteinuria, unspecified; E87.1 Hypo-osmolality and hyponatremia
CPT/HCPCS: 99214

== ENCOUNTER → 2023-07-31 10:54 | Outpatient (BNVA) | payer MEDICAID, SELFPAY | PROVIDERS: PCP Registered Nurse; Visit Provider Internal Medicine Hypertension Specialist | DX: I10 Essential (primary) hypertension (principal); R80.9 Proteinuria, unspecified; E87.1 Hypo-osmolality and hyponatremia | CPT/HCPCS: 99212 ==

== ENCOUNTER 2023-08-30 13:33 | Outpatient (REF) | payer MEDICAID, SELFPAY ==
[2023-08-30 15:58] LABS: MANUAL DIFF FLAG NO
[2023-08-30 16:00] LABS: Basophils Percent Auto 0.4 % (0-2); Eosinophils Absolute Auto 0.3 X10*3/uL (0.0-0.4); Eosinophils Percent Auto 2.6 % (0-4); Hematocrit 38.6 % (42.0-52.0); Hemoglobin 12.2 g/dl (14.0-18.0); Imm Gran Abs Auto 0.04 X10*3/uL (0.00-0.03); Imm Gran Pct Auto 0.4 % (0.0-0.4); Lymphocytes Absolute Auto 2.2 X10*3/uL (1.2-4.9); Lymphocytes Percent Auto 21.7 % (20-40); Mean Corpuscular HGB Conc 31.6 g/dl (31.0-36.0); Mean Corpuscular Hemoglobin 25.6 pg (27.0-33.0); Mean Corpuscular Volume 80.9 fL (80.0-98.0); Mean Platelet Volume 9.7 fL (9.4-12.4); Monocytes Absolute Auto 0.7 X10*3/uL (0.1-1.2); Monocytes Percent Auto 7.2 % (2-11); Neutrophils Absolute Auto 6.9 x10*3/uL (2.0-8.3); Neutrophils Percent Auto 67.7 % (45-73); Platelet Count 211 X10*3/uL (160-400); Red Blood Count 4.77 X10*6/uL (4.60-5.80); Red Cell Distribution Width 13.9 % (11.0-16.0); White Blood Count 10.1 X10*3/uL (4.8-10.8)
[2023-08-30 16:30] LABS: Alanine Aminotransferase 15 U/L (0-40); Albumin Level 3.8 g/dL (3.5-5.0); Alkaline Phosphatase 139 U/L (39-117); Anion Gap 15 (12-20); Aspartate Amino Transferase 21 U/L (5-37); Bilirubin Total 0.5 mg/dL (0.0-1.0); Blood Urea Nitrogen 21 mg/dL (9-16); Calcium 9.6 mg/dL (8.4-10.2); Carbon Dioxide 24 mmol/L (22-29); Chloride 105 mmol/L (96-108); Estimated Glomerular Filt Rate > 60; Glucose Random 119 mg/dL (60-115); Lipase 57 U/L (8-78); Potassium 3.7 mmol/L (3.3-5.1); Sodium 140 mmol/L (135-145); Total Protein 8.1 g/dL (6.5-8.0)
[2023-08-30 18:13] LABS: Appearance Urine Clear; Color Urine Yellow; Glucose Urine UA >=1000 mg/dL (Negative); Leukocyte Esterase Urine Negative (Negative); Nitrite Urine Negative (Negative); PH 5.5 (5.0-9.0); UMIC TRIGGER UACC YES; Urine Blood Large (3+) (Negative); Urine Ketones Negative (Negative); Urine Protein Negative (Neg-Trace)
[2023-08-30 18:16] LABS: Bacteria Urine None Seen (None Seen); Hyaline Casts Urine 0-2 /LPF (0-2); RBC Urine >20 /HPF (0-2); Squamous Epithelial Cell Urine 0-2 /HPF (0-2); WBC Urine 0-5 /HPF (0-5)
== END 2023-08-30 13:34 | disposition home or self-care (01) ==
LOC: HO.HHCL 13:33
PROVIDERS: Visit Provider Student in an Organized Health Care Education/Training Program
DX: R10.84 Generalized abdominal pain (principal)
CPT/HCPCS: 36415; 80053; 81001; 83690; 85025

== ENCOUNTER 2023-08-31 12:30 | Outpatient (REF) | payer MEDICAID, SELFPAY ==
--- NOTE | ~2023-08-31 | US_ITS ---
EXAMINATION: US ABDOMEN COMPLETE CLINICAL INFORMATION: Abdominal pain.. COMPARISON: 03/14/2023 TECHNIQUE: Real-time imaging of the abdominal viscera. FINDINGS: PANCREAS: Obscured. ABDOMINAL AORTA: Obscured. INFERIOR VENA CAVA: Visualized portions are normal. LIVER: Nodular surface contour. There is diffuse increased liver parenchymal echogenicity, consistent with infiltrative hepatocellular disease. No definite focal lesion is seen, but evaluation is limited due to poor sound beam penetration through the coarse echogenic liver parenchyma. There is no intrahepatic biliary duct dilatation seen. GALLBLADDER: Surgically absent. Trace free fluid in the gallbladder fossa. COMMON BILE DUCT: Normal in caliber measuring 0.4 cm in diameter. RIGHT KIDNEY: Exophytic mid-upper pole cyst measures 0.9 x 0.6 x 1.1 cm. No hydronephrosis. No renal calculi or focal parenchymal lesions. The kidney measures 12.8 cm in maximum dimension. LEFT KIDNEY: No hydronephrosis. No renal calculi or focal parenchymal lesions. The kidney measures 11.3 cm in maximum dimension. SPLEEN: The spleen measures 11.4 cm in maximum dimension. FREE FLUID: None. US/US abdomen complete IMPRESSION: Cirrhotic morphology of the liver.
== END 2023-08-31 12:31 | disposition home or self-care (01) ==
LOC: HO.HMGCX 12:30
PROVIDERS: Visit Provider Student in an Organized Health Care Education/Training Program
DX: R10.84 Generalized abdominal pain (principal)
CPT/HCPCS: 76700

== ENCOUNTER 2023-09-07 15:49 | Outpatient (REF) | payer MEDICAID, SELFPAY ==
[2023-09-07 18:19] LABS: Appearance Urine Clear; Color Urine Yellow; Glucose Urine UA >=1000 mg/dL (Negative); Leukocyte Esterase Urine Negative (Negative); Nitrite Urine Negative (Negative); Specific Gravity - Urine 1.015 (1.005-1.025); UMIC TRIGGER UACC YES; Urine Blood Large (3+) (Negative); Urine Ketones Negative (Negative); Urine Protein Negative (Neg-Trace)
[2023-09-07 18:24] LABS: Bacteria Urine None Seen (None Seen); Hyaline Casts Urine 0-2 /LPF (0-2); RBC Urine >20 /HPF (0-2); Squamous Epithelial Cell Urine 0-2 /HPF (0-2); WBC Urine 0-5 /HPF (0-5)
== END 2023-09-07 15:50 | disposition home or self-care (01) ==
LOC: HO.CHCLNP 15:49
PROVIDERS: Visit Provider Registered Nurse
DX: E11.65 Type 2 diabetes mellitus with hyperglycemia (principal); Z79.4 Long term (current) use of insulin
CPT/HCPCS: 81001

== ENCOUNTER 2023-09-14 11:42 | Outpatient (AMB) | payer MEDICAID, SELFPAY ==
--- NOTE | 2023-09-14 11:44 | A.OFFVIS_ITS ---
Intake Vital Signs 09/14/23 11:46 Height 5 ft 7 in Weight 198 lb 6.656 oz BMI 31.1 BP 132/64 Blood Pressure Location Lt brachial Position Sitting Pulse 98 Intake Visit Reasons: 3 month f/u RS from 07/30 Intake Note: Steven presents in the office as a 3 month follow up. CC: He states that he is still having problems with his stomach. Grades 1 Thru 6 Visiting Teacher Required: No Allergies shrimp Allergy (Severe, Verified 09/14/23 11:46) Difficulty Breathing atorvastatin [ATORVASTATIN] Adverse Reaction (Intermediate, Verified 09/14/23 11:46) elevated LFTs HPI 3 month f/u RS from 07/30 HPI Details 58 yr old m here for alcohol related cir rhosis f/u (MELD Na--8) RECAP: index visit 10/2019 He did not know why he was referred to liver clinic!! he c/o disocmfort in RUQ, on daily basis he takes gas x and it doens;t help he has nausea, no vomiting but regurgitation appetie is poor, weight is going down, he is scared by that 230# to 170# he also has burning sensation in the stomahc as well denies diarrhea or constipation no dysphagia occ alcohol intake 2-3 beers every 3 weeks no drug use He was admitted 12/2022 with RUQ pain He had Surgical assessment and MRI which did not reveal and gallstones or other biliary path hep c ab pos, but viral load neg 2010 US: 05/2019--diffuse steatosis colonoscopy ?1 yr ago with pleet and nml per his report. I ordered EGD and CT CT--few small renal stones, no acute process EGD: Streaky erosive esophagitis at [facility], LA grade C He saw cardiology and dx with CAD, did well on stress test, ECHo was ok--medical management US 08/2020 with chronic liver lesion, unchanged, fatty liver, no gallstones Due to ongoing sx of epigastric pain, with gas and bloating, nausea I ordered EGD/colonoscopy 03/2021 Had severe erosive esophagitis, LA grade D, TA removed PPI was increased to 40 mg BID GES also done 02/2021-- no gastroparesis, possible rapid emptying by 2 hrs only 18% left US 04/28 : fatty liver, indeterminate liver lesion, sludge US: 05/29 GB thickening patient had cholecystectomy and umbilical hernia repair 01/2023--having issues with ascotes since then due to decompensation INTERIM: last alcohol drink 3 weeks ago, no tremors denies nausea or vomiting mild diarrhea today but otherwise has been ok he got abx 3 weeks ago from dentist more gas in stomach no blood in stools denies leg swelling he denies fever pt v unsure about which meds he is taking but thinks he is not taking diuretics anymore, latest US neg for ascites, cirrhosis only, last tap 04/30-8 L removed EXAM: GENERAL: The patient is relaxed, VITAL SIGNS:see workflow HEENT: Nonicteric sclerae, PERRLA, EOMI. Oropharynx clear. Moist mucous membranes. Conjunctivae appear well perfused. No thyroid mass. CHEST: Chest wall is nontender. HEART: Regular rate and rhythm -ESM / over porecordium LUNGS: Clear to auscultation bilaterally. ABDOMEN: Soft, positive bowel sounds,distended abdo, no fluid wave SKIN: No rash, no excessive bruising, petechiae, or purpura. NEUROLOGIC: Cranial nerves II-XII intact without motor/sensory deficit. psych--nml Assessments 1. cirrhosis, decompensated 2/2 recent s urgery and anesthesia with ascites, seems to have improved, still had alcohol up till recentyl, v unclear on meds 2. bloating and distention, ?SIBO or rel ated to abx PLAN 1/ call [facility] and confirm his meds 2/ strongly advised to avoid alcohol can use black coffee, green tea 3/ egd at future date 4/ trial of rifaixmin, if ongoing diarrh ea then c diff testing, 5/ HCC screening 6 month, next time CT t riple phase PFSH Medical History Back pain GERD (gastroesophageal reflux disease) CAD (coronary artery disease) Palpitations Arthritis Fibromyalgia SALGUERO (nonalcoholic steatohepatitis) Fatty liver Depression Hyperlipidemia, unspecified Type 2 diabetes mellitus with unspecified complications Essential hypertension Atherosclerotic cardiovascular disease Surgical History History of abdominal paracentesis Left inguinal hernia (05/04/23) Hx of cholecystectomy History of umbilical hernia repair Gallstone Hx of endoscopy History of colonoscopy History of ankle surgery Family History Father Diabetes Mother No problems noted. Social History Household Members: Spouse Housing: House Are you a primary care coordinator to a significant other at home: No Do you presently have visiting nurse or other home services: No Alcohol intake: unknown Comment: uses cane on occasion due to hip arthritis Patient Tobacco Use Status: Current someday Tobacco user Tobacco use type: Cigar service: No Current occupational status: employed Current occupation: [employer] Physical Exam Vital Signs: Last Vital Signs Pulse 98 09/14/23 11:46 BP 132/64 09/14/23 11:46 BMI result Body Mass Index 31.1 Assessment & Plan Assessment & Plan (1) Ascites: Code(s): R18.8 - Other ascites Plan 1. cirrhosis, decompensated 2/2 recent surgery and anesthesia with ascites, see ms to have improved, still had alcohol up till recentyl, v unclear on meds 2. bloating and distention, ?SIBO or related to abx PLAN 1/ call [facility] and confirm his meds 2/ strongly advised to avoid alcohol can use black coffee, green tea 3/ egd at future date 4/ trial of rifaixmin, if ongoing diarrhea then c diff testing, 5/ HCC screening 6 month, next time CT triple phase Medications: New rifaximin 550 mg PO TID 2 weeks 42 tabs 0RF Discontinued furosemide Discontinued Reason: Patient no longer taking 20 mg PO DAILY 30 ea 2RF Coding Level of Care Code Est Pt Level 4 (68699) Diagnoses Ascites R18.8
[2023-09-14 11:46] VITALS: BP 132/64; PULSE 98; BMI 31.1
== END 2023-09-14 12:04 | disposition home or self-care (01) ==
PROVIDERS: PCP Registered Nurse; Referring Provider Registered Nurse; Visit Provider Internal Medicine Gastroenterology
DX: R18.8 Other ascites (principal)
CPT/HCPCS: 99214

== ENCOUNTER → 2023-09-14 11:42 | Outpatient (BNVA) | payer MEDICAID, SELFPAY | PROVIDERS: PCP Registered Nurse; Visit Provider Internal Medicine Gastroenterology | DX: R18.8 Other ascites (principal) | CPT/HCPCS: 99212 ==

== ENCOUNTER 2023-09-17 11:41 | Outpatient (REF) | payer MEDICAID, SELFPAY ==
--- NOTE | ~2023-09-17 | XR_ITS ---
EXAMINATION: XR HAND, RIGHT CLINICAL INFORMATION: Pain bilateral hands COMPARISON: None available. TECHNIQUE: PA, lateral, and oblique views of the right hand. FINDINGS: The bones are intact. No fracture or dislocation. Alignment is anatomic. There is mild degenerative change of the IP joint of the thumb. No erosions. Arterial calcification indicative of atherosclerosis is seen in the distal forearm and wrist. XR/XR hand RT min 3V IMPRESSION: Mild degenerative change of the IP joint of the thumb.
--- NOTE | ~2023-09-17 | XR_ITS ---
EXAMINATION: XR HAND, LEFT CLINICAL INFORMATION: Pain bilateral hands COMPARISON: None available. TECHNIQUE: PA, lateral, and oblique views of the left hand. FINDINGS: The bones are intact. No fracture or dislocation. Alignment is anatomic. There are mild degenerative changes of the IP joint of the thumb. No erosions. A few small calcific densities is noted along the ulnar aspect of the DIP joint of the middle finger. Arterial calcification indicative of atherosclerosis is seen along the distal forearm and wrist. XR/XR hand LT min 3V IMPRESSION: 1. No acute bony abnormality. 2. Mild degenerative changes of the IP joint of the thumb.
[2023-09-17 14:37] LABS: Prostate Specific Antigen 0.78 ng/mL (<0.05-4.0)
== END 2023-09-17 11:42 | disposition home or self-care (01) ==
LOC: HO.LAB 11:41
PROVIDERS: Nurse Practitioner Family; PCP Registered Nurse; Visit Provider Registered Nurse
DX: M79.641 Pain in right hand (principal); M79.642 Pain in left hand; N40.0 Benign prostatic hyperplasia without lower urinary tract symptoms
CPT/HCPCS: 36415; 73130; 84153

== ENCOUNTER 2023-09-24 13:31 | Outpatient (AMB) | payer MEDICAID, SELFPAY ==
[2023-09-24 13:38] VITALS: BP 132/67; PULSE 80
--- NOTE | 2023-09-24 13:38 | A.OFFVIS_ITS ---
Intake Vital Signs 09/24/23 13:38 Weight 204 lb BP 132/67 Blood Pressure Location Lt brachial Position Sitting Pulse 80 Intake Visit Reasons: incisional sharp pain, left inguinal hernia Intake Note: Patient here c/o sharp pain on LLQ. Hx of LIH repair on 05-04-23. Domestic Violence Advocate Required: No Accompanied by: Self / Same As Patient Allergies shrimp Allergy (Severe, Verified 09/24/23 13:39) Difficulty Breathing atorvastatin [ATORVASTATIN] Adverse Reaction (Intermediate, Verified 09/24/23 13:39) elevated LFTs HPI HPI Comments History of Present Illness Details Patient is having some numbness over his incision of left inguinal hernia repair which was done in the fall of last year. Otherwise he is doing well. Starting a diet. He is having regular bowel habits. His activity levels are unaffected. [facility] Medical History Back pain GERD (gastroesophageal reflux disease) CAD (coronary artery disease) Palpitations Arthritis Fibromyalgia SALGUERO (nonalcoholic steatohepatitis) Fatty liver Depression Hyperlipidemia, unspecified Type 2 diabetes mellitus with unspecified complications Essential hypertension Atherosclerotic cardiovascular disease Surgical History History of abdominal paracentesis Left inguinal hernia (05/04/23) Hx of cholecystectomy History of umbilical hernia repair Gallstone Hx of endoscopy History of colonoscopy History of ankle surgery Family History Father Diabetes Mother No problems noted. Social History Household Members: Spouse Housing: House Are you a primary animal care technician to a significant other at home: No Do you presently have visiting nurse or other home services: No Alcohol intake: unknown Comment: uses cane on occasion due to hip arthritis Patient Tobacco Use Status: Current someday Tobacco user Tobacco use type: Cigar service: No Current occupational status: employed Current occupation: [employer] Physical Exam Vital Signs: Last Vital Signs Pulse 80 09/24/23 13:38 BP 132/67 09/24/23 13:38 GI Other: Patient was examined both supine and standing with Valsalva. Incision is well healed. No evidence of any infection hernia recurrence. Contralateral right side negative. Genitalia within normal limits. Assessment & Plan Assessment & Plan (1) Status post hernia repair: Code(s): Z98.890 - Other specified postprocedural states; Z87.19 - Personal history of other diseases of the digestive system (2) Inguinodynia, left: Code(s): R10.32 - Left lower quadrant pain Plan The present time, we will treat the patient conservatively. He was reassured as no infection recurrence. Most likely some scar tissue affecting some cutaneous nerves. Should this process persist over the next few months time, patient ins tructed to contact me and we will directed for further interventions possibly with pain clinic. All questions answered. Coding Level of Care Code Est Pt Level 4 (22803) Diagnoses Status post hernia repair Z98.890; Z87.19 Inguinodynia, left R10.32
== END 2023-09-24 13:40 | disposition home or self-care (01) ==
PROVIDERS: PCP Registered Nurse; Visit Provider Surgery
DX: R10.32 Left lower quadrant pain (principal); Z98.890 Other specified postprocedural states; Z87.19 Personal history of other diseases of the digestive system
CPT/HCPCS: 99214

== ENCOUNTER → 2023-09-24 13:31 | Outpatient (BNVA) | payer MEDICAID, SELFPAY | PROVIDERS: PCP Registered Nurse; Visit Provider Surgery | DX: R10.32 Left lower quadrant pain (principal); Z87.19 Personal history of other diseases of the digestive system; Z98.890 Other specified postprocedural states | CPT/HCPCS: 99212 ==

== ENCOUNTER 2023-10-02 09:33 | Outpatient (REF) | payer MEDICAID, SELFPAY ==
--- NOTE | ~2023-10-02 | CT_ITS ---
EXAMINATION: CT ABDOMEN AND PELVIS WITH CONTRAST CLINICAL INFORMATION: Abdominal pain COMPARISON: CT scan abdomen and pelvis 09/18/2022, 02/07/2023 TECHNIQUE: Multidetector volumetric images were obtained from the superior aspect of the liver through the pubic symphysis following administration 85 mL of Omnipaque 350 intravenous contrast. Sagittal and coronal reformatted images were obtained on the technologist's workstation. Oral contrast: Yes This CT examination was performed using dose optimization techniques as appropriate, variously including the following: *Automated exposure control *Adjustment of mA and/or kV according to patient size (this includes techniques or standardized protocols for targeted exams where dose is matched to indication/reason for exam; i.e. extremities or head) *Use of iterative reconstruction technique DLP: 604 mGy-cm FINDINGS: LUNG BASES: The visualized lung bases are unremarkable. LIVER, GALLBLADDER, AND BILIARY TREE: Slight decreased attenuation of the liver compared to the spleen is consistent with hepatic steatosis. The liver is normal size and shape with slightly scalloped contour raising the possibility of cirrhosis. There is a small amount of free hepatic ascites. Previously noted 1.7 cm enhancing lesion in the medial left hepatic lobe seen on prior studies is not well appreciated on the current study. No biliary ductal dilatation is present. The gallbladder has been removed. Multiple surgical clips are seen in the gallbladder fossa. PANCREAS: Normal. SPLEEN: Normal. Surgical clip is seen adjacent to the spleen. ADRENAL GLANDS: Normal. KIDNEYS AND URETERS: The kidneys are normal in size, shape, and attenuation. No hydronephrosis, hydroureter, or calculi seen. There is mild bilateral perinephric stranding. BLADDER: Unremarkable. GASTROINTESTINAL TRACT: The small and large bowel are normal caliber. There is colonic diverticulosis without evidence of diverticulitis. There is a moderate of stool throughout the colon consistent with mild constipation. The appendix is not visualized. There is a small amount of free fluid in the right and left lower quadrant quadrant. ABDOMINAL WALL: No significant hernia is appreciated. LYMPH NODES: Normal. VASCULAR: The abdominal aorta is normal caliber with slight calcification indicative of atherosclerotic disease. Varices are visualized in the upper abdomen. PELVIC VISCERA: The prostate gland is normal size. The seminal vesicles demonstrate extensive calcification. OSSEOUS STRUCTURES: No destructive bony lesions. Small sclerotic density in the right ilium is unchanged and likely represents a bone island. There is degenerative disc disease with vacuum phenomenon at L5-S1. CT/CT abdomen pelvis w IV con IMPRESSION: 1. Cirrhotic liver with mild perihepatic and slight right lower quadrant and left lower quadrant ascites. 2. Mild constipation. 3. Mild bilateral perinephric stranding. No radiopaque renal calculus or hydronephrosis. 4. Previously noted 1.7 cm mildly enhancing lesion considered to represent a hemangioma in the left lobe of the liver is not well appreciated on the current study. Fleischner guidelines were followed.
[2023-10-02] MEDS: iohexoL 350 MG/ML 100 ML INFUS..BTL IV (12:02)
[2023-10-02] MEDS: Barium Sulfate Oral (Vanilla) 450 ML ORAL.SUSP 900 ML PO (12:03)
[2023-10-03 08:54] LABS: Creatinine POC 0.7 mg/dL (0.5-1.4); GFR POC > 60
== END 2023-10-02 09:34 | disposition home or self-care (01) ==
LOC: HO.CT 09:33
PROVIDERS: PCP Student in an Organized Health Care Education/Training Program; Visit Provider Student in an Organized Health Care Education/Training Program
DX: R10.84 Generalized abdominal pain (principal)
CPT/HCPCS: 74177; 82565; Q9967

== ENCOUNTER 2023-10-31 11:49 | Outpatient (REF) | payer MEDICAID, SELFPAY ==
[2023-10-31 13:01] LABS: Hematocrit 41.8 % (42.0-52.0); Hemoglobin 13.4 g/dl (14.0-18.0); Mean Corpuscular HGB Conc 32.1 g/dl (31.0-36.0); Mean Corpuscular Hemoglobin 25.7 pg (27.0-33.0); Mean Corpuscular Volume 80.2 fL (80.0-98.0); Mean Platelet Volume 9.8 fL (9.4-12.4); Platelet Count 221 X10*3/uL (160-400); Red Blood Count 5.21 X10*6/uL (4.60-5.80); Red Cell Distribution Width 13.4 % (11.0-16.0); White Blood Count 10.8 X10*3/uL (4.8-10.8)
[2023-10-31 13:49] LABS: Anion Gap 12 (12-20); Blood Urea Nitrogen 24 mg/dL (9-16); Carbon Dioxide 26 mmol/L (22-29); Chloride 101 mmol/L (96-108); Estimated Glomerular Filt Rate > 60; Potassium 4.1 mmol/L (3.3-5.1); Sodium 135 mmol/L (135-145)
[2023-10-31 13:57] LABS: Appearance Urine Clear; Color Urine Yellow; Glucose Urine UA >=1000 mg/dL (Negative); Leukocyte Esterase Urine Negative (Negative); Nitrite Urine Negative (Negative); PH 6.5 (5.0-9.0); Specific Gravity - Urine 1.025 (1.005-1.025); UMIC TRIGGER UA YES; Urine Blood Moderate (2+) (Negative); Urine Ketones Negative (Negative); Urine Protein Negative (Neg-Trace)
[2023-10-31 14:02] LABS: Bacteria Urine None Seen (None Seen); Hyaline Casts Urine 0-2 /LPF (0-2); RBC Urine >20 /HPF (0-2); Squamous Epithelial Cell Urine 0-2 /HPF (0-2); WBC Urine 0-5 /HPF (0-5)
[2023-10-31 14:11] LABS: Total Protein Urine Random 10 mg/dL (<12)
[2023-11-01 10:49] LABS: Prot Elec - Albumin 4.2 g/dL (3.8-4.8); Prot Elec - Alpha1 0.3 g/dL (0.2-0.3); Prot Elec - Alpha2 0.7 g/dL (0.5-0.9); Prot Elec - Beta 1 0.6 g/dL (0.4-0.6); Prot Elec - Beta 2 0.8 g/dL (0.2-0.5); Prot Elec - Gamma 1.4 g/dL (0.8-1.7)
[2023-11-05 07:23] LABS: Vitamin D 25-OH, D2 <4 ng/mL; Vitamin D 25-OH, D3 37 ng/mL; Vitamin D 25-OH, Total 37 ng/mL (30-100)
== END 2023-10-31 11:50 | disposition home or self-care (01) ==
LOC: HO.LAB 11:49
PROVIDERS: Absent Provider Internal Medicine; PCP Registered Nurse; Visit Provider Internal Medicine Hypertension Specialist
DX: E87.1 Hypo-osmolality and hyponatremia (principal); R80.9 Proteinuria, unspecified
CPT/HCPCS: 36415; 80051; 81001; 81003; 82306; 82310; 82565; 82570; 84156; 84165; 84520; 85027

== ENCOUNTER 2023-11-01 09:25 | Outpatient (AMB) | payer MEDICAID, SELFPAY ==
--- NOTE | 2023-11-01 09:30 | HO.NEPHOV_ITS ---
Vital Signs 11/01/23 09:31 Height 5 ft 7 in Weight 206 lb BMI 32.3 BP 100/64 Blood Pressure Location Rt brachial Position Sitting Pulse 67 Pulse Source Pulse Oximeter Pulse Oximetry (%) 97 Oxygen Delivery Method Room Air Intake Visit Reasons: Essential hypertension/ LVM Home Health Administrator Required: No Accompanied by: Self / Same As Patient Allergies shrimp Allergy (Severe, Verified 11/01/23 09:33) Difficulty Breathing atorvastatin [ATORVASTATIN] Adverse Reaction (Intermediate, Verified 11/01/23 09:33) elevated LFTs HPI Comments Details: Steven is a very pleasant man with a h/o arthritis, ACD, CAD, depression, hypertension, fatty liver, fibromyalgia, hyperlipidemia, non alcoholic steatohepatitis, and type 2 diabetes. Essentially normal renal function Here for follow up No new issues [facility] Medical History Back pain GERD (gastroesophageal reflux disease) CAD (coronary artery disease) Palpitations Arthritis Fibromyalgia SALGUERO (nonalcoholic steatohepatitis) Fatty liver Depression Hyperlipidemia, unspecified Type 2 diabetes mellitus with unspecified complications Essential hypertension Atherosclerotic cardiovascular disease Surgical History History of abdominal paracentesis Left inguinal hernia (05/04/23) Hx of cholecystectomy History of umbilical hernia repair Gallstone Hx of endoscopy History of colonoscopy History of ankle surgery Family History Father Diabetes Mother No problems noted. Social History Household Members: Spouse Housing: House Are you a primary physician primary care sports medicine to a significant other at home: No Do you presently have visiting nurse or other home services: No Alcohol intake: unknown Comment: uses cane on occasion due to hip arthritis Patient Tobacco Use Status: Current someday Tobacco user Tobacco use type: Cigar service: No Current occupational status: employed Current occupation: [employer] Physical Exam Vital Signs: Last Vital Signs Pulse 67 11/01/23 09:31 BP 100/64 11/01/23 09:31 Pulse Ox 97 11/01/23 09:31 Oxygen Delivery Method Room Air 11/01/23 09:31 BMI result Body Mass Index 32.3 Const General: comfortable Nutritional Appearance: well nourished Orientation/consciousness: patient oriented x3 HEENT Head: No normal to inspection Mouth: moist mucous membranes Neck Neck: Yes supple and Yes no JVD Resp Auscultation: clear to auscultation bilaterally, no rales and rub present Cardio Jugular venous distension: no JVD Palpation: no palpable S3 and no palpable S4 Heart sounds: no rubs GI Palpation (GI): Soft to palpation and nontender Percussion: No Fluid wave present General: Yes no CVA tenderness Back/Spine/Pelvis Back: no CVA tenderness Skin General skin exam: no rashes or lesions noted Neuro General: patient oriented x3 Extrem General: Yes no pedal edema and No clubbing Results Reviewed Nephrology Results: Hgb 13.4 g/dl (14.0-18.0) L 10/31/23 WBC 10.8 X10*3/uL (4.8-10.8) 10/31/23 Plt Count 221 X10*3/uL (160-400) 10/31/23 Sodium 135 mmol/L (135-145) 10/31/23 Potassium 4.1 mmol/L (3.3-5.1) 24 Chloride 101 mmol/L (96-108) 10/31/23 Carbon Dioxide 26 mmol/L (22-29) 10/31/23 BUN 24 mg/dL (9-16) H 10/31/23 Creatinine 1.15 mg/dL (0.5-1.4) 10/31/23 Calcium 10.0 mg/dL (8.4-10.2) 10/31/23 Urine Protein Negative mg/dL (Neg-Trace) 10/31/23 Urine Creatinine 70.00 mg/dL 10/31/23 Assessment & Plan Assessment & Plan (1) Hematuria: Code(s): R31.9 - Hematuria, unspecified Category: Medical (2) Essential hypertension: Code(s): I10 - Essential (primary) hypertension Category: Medical (3) Proteinuria: Code(s): R80.9 - Proteinuria, unspecified Category: Medical (4) Hyponatremia: Code(s): E87.1 - Hypo-osmolality and hyponatremia Category: Medical Plan Middle aged man with Essentially normal renal function in a setting of DM and SALGUERO No significant proteinuria Microhematuria - painless Borderling low BP Recommend: Decrease Lisinopril to 20 mg daily Maintain BP < 130/80 Avoid Hypotension Watch K while on Aldactone and ACEi Restrict PO water intake due to hyponatremia Agree with current meds including SGLT-2 inhibitors - Glycosuria due to SGLT-2 inh Refer to urology for microhematuria Serology ordered Orders: Orders Neutrophil Cytoplasma Ab 2 Months R31.9 - Hematuria, unspecified Myeloperoxidase Antibody 2 Months R31.9 - Hematuria, unspecified Complement C3 2 Months R31.9 - Hematuria, unspecified Complete Blood Count Auto Diff 2 Months N18.30 - Chronic kidney disease, stage 3 unspecified, R31.9 - Hematuria, unspecified Comprehensive Met. Panel 2 Months N18.9 - Chronic kidney disease, unspecified, R31.9 - Hematuria, unspecified Proteinase 3 PR3 Antibodies 2 Months R31.9 - Hematuria, unspecified Anti Glomerular Basement Memb 2 Months R31.9 - Hematuria, unspecified Complement C4 2 Months R31.9 - Hematuria, unspecified Protein Electrophoresis, Serum 2 Months R31.9 - Hematuria, unspecified Referrals Urology Referral R31.9 - Hematuria, unspecified Medications: Changed From lisinopril 40 mg PO DAILY 90 tabs 2RF To lisinopril 20 mg (1/2 x 40 mg) PO DAILY 90 tabs 2RF Coding Level of Care Code Est Pt Level 4 (60920) Diagnoses Hematuria R31.9 Essential hypertension I10 Proteinuria R80.9 Hyponatremia E87.1
[2023-11-01 09:31] VITALS: BP 100/64; PULSE 67; O2SAT 97; BMI 32.3
== END 2023-11-01 10:08 | disposition home or self-care (01) ==
PROVIDERS: PCP Registered Nurse; Referring Provider Registered Nurse; Visit Provider Internal Medicine Hypertension Specialist
DX: R31.9 Hematuria, unspecified (principal); I10 Essential (primary) hypertension; R80.9 Proteinuria, unspecified; E87.1 Hypo-osmolality and hyponatremia
CPT/HCPCS: 99214

== ENCOUNTER → 2023-11-01 09:25 | Outpatient (BNVA) | payer MEDICAID, SELFPAY | PROVIDERS: PCP Registered Nurse; Visit Provider Internal Medicine Hypertension Specialist | DX: R31.9 Hematuria, unspecified (principal); R80.9 Proteinuria, unspecified; I10 Essential (primary) hypertension; E87.1 Hypo-osmolality and hyponatremia | CPT/HCPCS: 99212 ==

== ENCOUNTER 2023-12-27 09:50 | Outpatient (REF) | payer MEDICAID, SELFPAY ==
[2023-12-27 10:23] LABS: MANUAL DIFF FLAG NO
[2023-12-27 11:00] LABS: Basophils Absolute Auto 0.1 X10*3/uL (0.0-0.2); Basophils Percent Auto 0.5 % (0-2); Eosinophils Absolute Auto 0.5 X10*3/uL (0.0-0.4); Hemoglobin 13.6 g/dl (14.0-18.0); Imm Gran Abs Auto 0.03 X10*3/uL (0.00-0.03); Imm Gran Pct Auto 0.3 % (0.0-0.4); Lymphocytes Absolute Auto 2.3 X10*3/uL (1.2-4.9); Lymphocytes Percent Auto 25.2 % (20-40); Mean Corpuscular HGB Conc 32.4 g/dl (31.0-36.0); Mean Corpuscular Hemoglobin 26.1 pg (27.0-33.0); Mean Corpuscular Volume 80.5 fL (80.0-98.0); Mean Platelet Volume 9.6 fL (9.4-12.4); Monocytes Absolute Auto 1.1 X10*3/uL (0.1-1.2); Monocytes Percent Auto 11.8 % (2-11); Neutrophils Absolute Auto 5.2 x10*3/uL (2.0-8.3); Neutrophils Percent Auto 57.2 % (45-73); Platelet Count 219 X10*3/uL (160-400); Red Blood Count 5.22 X10*6/uL (4.60-5.80); Red Cell Distribution Width 14.3 % (11.0-16.0); White Blood Count 9.1 X10*3/uL (4.8-10.8)
[2023-12-27 11:05] LABS: Appearance Urine Clear; Color Urine Yellow; Glucose Urine UA >=1000 mg/dL (Negative); Leukocyte Esterase Urine Negative (Negative); Nitrite Urine Negative (Negative); Specific Gravity - Urine 1.025 (1.005-1.025); UMIC TRIGGER UA YES; Urine Blood Moderate (2+) (Negative); Urine Ketones Negative (Negative); Urine Protein Negative (Neg-Trace)
[2023-12-27 11:09] LABS: Bacteria Urine None Seen (None Seen); Hyaline Casts Urine 0-2 /LPF (0-2); Squamous Epithelial Cell Urine 0-2 /HPF (0-2); WBC Urine 0-5 /HPF (0-5)
[2023-12-27 11:46] LABS: Alanine Aminotransferase 14 U/L (0-40); Albumin Level 3.8 g/dL (3.5-5.0); Alkaline Phosphatase 119 U/L (39-117); Anion Gap 16 (12-20); Aspartate Amino Transferase 17 U/L (5-37); Bilirubin Total 0.6 mg/dL (0.0-1.0); Blood Urea Nitrogen 27 mg/dL (9-16); Calcium 9.5 mg/dL (8.4-10.2); Carbon Dioxide 22 mmol/L (22-29); Chloride 105 mmol/L (96-108); Estimated Glomerular Filt Rate 52; Glucose Random 236 mg/dL (60-115); Potassium 4.4 mmol/L (3.3-5.1); Sodium 139 mmol/L (135-145); Total Protein 8.1 g/dL (6.5-8.0)
[2023-12-28 17:34] LABS: Complement C3 140 mg/dL (82-185)
[2023-12-28 20:38] LABS: Anti Glomerular Basement Memb <1.0 AI; Myeloperoxidase Antibody <1.0 AI; Proteinase 3 PR3 Antibodies <1.0 AI
[2023-12-28 21:19] LABS: Prot Elec - Albumin 3.9 g/dL (3.8-4.8); Prot Elec - Alpha1 0.3 g/dL (0.2-0.3); Prot Elec - Alpha2 0.7 g/dL (0.5-0.9); Prot Elec - Beta 1 0.6 g/dL (0.4-0.6); Prot Elec - Beta 2 0.8 g/dL (0.2-0.5); Prot Elec - Gamma 1.3 g/dL (0.8-1.7); Prot Elec - Total Protein 7.7 g/dL (6.1-8.1)
[2024-01-01 11:27] LABS: Neutrophil Cyto Ab Screen NEGATIVE (NEGATIVE)
== END 2023-12-27 09:51 | disposition home or self-care (01) ==
LOC: HO.LAB 09:50
PROVIDERS: Absent Provider Nurse Practitioner Family; PCP Physician Assistant; Visit Provider Internal Medicine Hypertension Specialist
DX: R31.9 Hematuria, unspecified (principal); N18.30 Chronic kidney disease, stage 3 unspecified
CPT/HCPCS: 36415; 80053; 81001; 81003; 83520; 84165; 85025; 86021; 86036; 86160

== ENCOUNTER 2023-12-31 09:23 | Outpatient (AMB) | payer MEDICAID, SELFPAY ==
--- NOTE | 2023-12-31 09:31 | A.OFFVIS_ITS ---
Intake Visit Reasons: 6m follow up/PSA/PVR Intake Note: Patient presents for follow up visit PVR/microscopic hematuria Urology Medications: none Blood Thinner: none PVR: 76ml's Scrap Charger Required: No Accompanied by: Self / Same As Patient Allergies shrimp Allergy (Severe, Verified 12/31/23 21:06) Difficulty Breathing atorvastatin [ATORVASTATIN] Adverse Reaction (Intermediate, Verified 12/31/23 21:06) elevated LFTs Medication List - Last Reconciled 12/31/23 by KYRA Lo cholecalciferol (vitamin D3) 50 mcg PO DAILY empagliflozin (Jardiance) 25 mg PO QAM eplerenone (Inspra) 50 mg PO QAM ezetimibe (Zetia) 10 mg PO DAILY furosemide 20 mg PO QPM hydrocodone-acetaminophen 5-325 mg 1 tab PO Q4-6H PRN insulin degludec (Tresiba FlexTouch U-100 insulin) 20 units subcut BEDTIME insulin lispro (Humalog KwikPen (U-100) Insulin) 1 sliding scale dose subcut TIDAC lisinopril 20 mg (1/2 x 40 mg) PO DAILY rifaximin 550 mg PO TID 2 weeks tadalafil (Cialis) 20 mg PO .PRN PRN 90 days tadalafil (Cialis) 5 mg PO DAILY 90 days thiamine HCl (vitamin B1) 100 mg PO TID vitamin A 1 cap PO QPM zinc sulfate 50 mg PO QPM HPI Comments Details: Steven is a very pleasant 58-year-old male patient of Dr. Santiago. He has a past medical history of arthritis, ACD, CAD, depression, hypertension, fatty liver, fibromyalgia, hyperlipidemia, non alcoholic steatohepatitis, and type 2 diabetes. He presents to the office today for follow-up of his microscopic hematuria. In discussion with the patient today reports to be doing and feeling well. He currently denies any bothersome urinary issues or concerns. Recent PSA results reviewed with the patient today as noted and trended below. Unable to obtain urine for urinalysis as patient unable to void however PVR 76 mL. He does discuss noting episodes maintaining his erections. He does report sexual desire. He otherwise offers no other issues or concerns at this time. Previous urine cytology02/28 and 06/30 Negative for high-grade urothelial carcinoma. PSAs: 03/31 0.5, 09/29 0.8, 12/30 1.6. [facility] Medical History Back pain GERD (gastroesophageal reflux disease) CAD (coronary artery disease) Palpitations Arthritis Fibromyalgia SALGUERO (nonalcoholic steatohepatitis) Fatty liver Depression Hyperlipidemia, unspecified Type 2 diabetes mellitus with unspecified complications Essential hypertension Atherosclerotic cardiovascular disease Surgical History History of abdominal paracentesis Left inguinal hernia (05/04/23) Hx of cholecystectomy History of umbilical hernia repair Gallstone Hx of endoscopy History of colonoscopy History of ankle surgery Family History Father Diabetes Mother No problems noted. Social History Household Members: Spouse Housing: House Are you a primary janitor caretaker to a significant other at home: No Do you presently have visiting nurse or other home services: No Alcohol intake: unknown Comment: uses cane on occasion due to hip arthritis Patient Tobacco Use Status: Current someday Tobacco user Tobacco use type: Cigar service: No Current occupational status: employed Current occupation: [employer] Review of Systems Const Reports as per HPI Eyes Reports no additional complaints ENT Reports no additional complaints Card Reports as per [facility] Resp Reports as per HPI GI Reports as per HPI Reports as per [facility] Musc Reports as per HPI Neuro Reports no additional complaints Psych Reports as per [facility] Endo Reports as per HPI Physical Exam Const General: cooperative, healthy appearing, comfortable, no acute distress, well developed, alert and awake Orientation/consciousness: patient oriented x3 Limitations: no limitations HEENT Head: Yes normal to inspection, Yes normocephalic and Yes atraumatic Ears: hearing grossly normal bilaterally Eyes General: appearance normal, both eyes and all related structures Neck Neck: Yes normal visual inspection and Yes trachea midline Chest Chest palpation & inspection: normal inspection of the chest Resp Effort & Inspection: normal respiratory effort and able to speak in complete sentences Cardio Rate: regular rate GI Inspection: Yes other (round) General: Yes no CVA tenderness Back/Spine/Pelvis Back: no CVA tenderness Skin General skin exam: no rashes or lesions noted Neuro General: patient oriented x3 Extrem General: Yes normal to inspection Psych Appearance: grossly normal and well kempt Mental Status: mental status grossly normal Speech and movement: Normal speech and movement present and Clear speech present Affect: normal affect Attitude: cooperative Thought process: Normal thought process present Thought content: Normal thought content present Insight: Fair insight present (Psych) Judgement: Fair judgement present (Psych) Office Procedures Post Void Residual Post Residual Void Post Void Residual (PVR): 76 [id number] Void Residual by ultrasound Assessment & Plan Assessment & Plan (1) Erectile dysfunction associated with type 2 diabetes mellitus: Code(s): E11.69 - Type 2 diabetes mellitus with other specified complication; N52.1 - Erectile dysfunction due to diseases classified elsewhere Category: Medical (2) Microscopic hematuria: Code(s): R31.29 - Other microscopic hematuria Category: Medical (3) Lower urinary tract symptoms: Code(s): R39.9 - Unspecified symptoms and signs involving the genitourinary system Category: Medical Plan Unable to obtain urine for urinalysis as patient unable to void however PVR 76 mL. Patient currently denies any bothersome urinary issues. Reports be happy with current voiding parameters. Discussed at length potential causes for erectile dysfunction. Discussed and stressed the importance of managing diabetes for erectile dysfunction as well as for overall health and well-being. Start Cialis 5 mg daily as discussed and prescribed. Prescription provided for p.r.n. Cialis. Recent PSA results reviewed with the patient today; as noted above. Discussed lifestyle modifications to assist with erectile dysfunction. Follow-up in 3 months; or sooner with any issues, concerns, and or questions. Orders: Orders AMB Urinalysis Automated Today Z13.9 - Encounter for screening, unspecified AMB Post Void Residual by ultrasound Today R39.9 - Unspecified symptoms and signs involving the genitourinary system Medications: New tadalafil (Cialis) administer approximately 30min before sexual activity; do not use more than 1 dose per 24hrs [id number] [facility] [id number] Member [id number] 20 mg PO .PRN 90 days PRN 45 tabs 0RF sexual activity tadalafil (Cialis) [id number] [facility] [id number] Member [id number] 5 mg PO DAILY 90 days 90 tabs 1RF Patient Instructions: The patient had an opportunity to ask questions regarding the treatment plan. All questions were answered. Physical exam, labs, and imaging were discussed and reviewed in detail. As well as risks, benefits, and discussion of treatment choices. No major barriers to understanding were identified. The patient expressed understanding and agreement with the above treatment plan. The patient was made aware they should contact our office by phone for worsening of their current condition, the appearance of new symptoms, or with any questions or concerns. Compliance is encouraged with any medications and follow up testing that is ordered. It is a privilege to be allowed the opportunity to participate in? your urological care.? Again, if you have any questions or concerns If you have any questions or concerns please do not hesitate to contact me. The office is [phone]. This note is constructed using voice recognition software. While every effort has been made to ensure accuracy berry picker machine operator errors may have been included. Yours sincerely, KELSI Lo Coding Level of Care Code Est Pt Level 4 (03847) Diagnoses Erectile dysfunction associated with type 2 diabetes mellitus E11.69; N52.1 Microscopic hematuria R31.29 Lower urinary tract symptoms R39.9 CPT Codes Post Residual Void - PVR CPT Code: [id number]-[id number] Void Residual by ultrasound ([id number])
== END 2023-12-31 10:14 | disposition home or self-care (01) ==
PROVIDERS: PCP Registered Nurse; Visit Provider Nurse Practitioner Family
DX: E11.69 Type 2 diabetes mellitus with other specified complication (principal); N52.1 Erectile dysfunction due to diseases classified elsewhere; R31.29 Other microscopic hematuria; R39.9 Unspecified symptoms and signs involving the genitourinary system
CPT/HCPCS: 99214

== ENCOUNTER → 2023-12-31 09:23 | Outpatient (BNVA) | payer MEDICAID, SELFPAY | PROVIDERS: PCP Registered Nurse; Visit Provider Nurse Practitioner Family ==

== ENCOUNTER 2023-12-31 09:43 | Outpatient (REF) | payer MEDICAID, SELFPAY ==
[2023-12-31 11:08] LABS: Appearance Urine Clear; Color Urine Yellow; Glucose Urine UA >=1000 mg/dL (Negative); Leukocyte Esterase Urine Negative (Negative); Nitrite Urine Negative (Negative); UMIC TRIGGER UA YES; Urine Blood Moderate (2+) (Negative); Urine Ketones Negative (Negative); Urine Protein Negative (Neg-Trace)
[2023-12-31 11:11] LABS: Bacteria Urine None Seen (None Seen); Hyaline Casts Urine 0-2 /LPF (0-2); RBC Urine >20 /HPF (0-2); Squamous Epithelial Cell Urine 0-2 /HPF (0-2); WBC Urine 0-5 /HPF (0-5)
[2023-12-31 11:27] LABS: Alanine Aminotransferase 16 U/L (0-40); Albumin Level 3.9 g/dL (3.5-5.0); Alkaline Phosphatase 130 U/L (39-117); Aspartate Amino Transferase 20 U/L (5-37); Bilirubin Direct 0.2 mg/dL (0.0-0.5); Bilirubin Total 0.3 mg/dL (0.0-1.0); Cholesterol 241 mg/dL (<200); HDL Cholesterol 87 mg/dL (>40); LDL Cholesterol Calculated 131 mg/dL (<100); Total Protein 8.2 g/dL (6.5-8.0); Triglycerides 115 mg/dL (<150)
[2023-12-31 11:44] LABS: Prostate Specific Antigen 1.58 ng/mL (<0.05-4.0)
== END 2023-12-31 09:44 | disposition home or self-care (01) ==
LOC: HO.10HDL 09:43
PROVIDERS: Internal Medicine; Internal Medicine Hypertension Specialist; Visit Provider Nurse Practitioner Family
DX: Z12.5 Encounter for screening for malignant neoplasm of prostate (principal); R39.9 Unspecified symptoms and signs involving the genitourinary system; E78.5 Hyperlipidemia, unspecified; I25.10 Atherosclerotic heart disease of native coronary artery without angina pectoris; E11.69 Type 2 diabetes mellitus with other specified complication; N52.1 Erectile dysfunction due to diseases classified elsewhere; R31.29 Other microscopic hematuria
CPT/HCPCS: 36415; 51798; 80061; 80076; 81001; 84153; 99212

== ENCOUNTER 2024-01-01 09:21 | Outpatient (AMB) | payer MEDICAID, SELFPAY ==
[2024-01-01 09:25] VITALS: BP 112/70; PULSE 80; O2SAT 96; BMI 32.6
--- NOTE | 2024-01-01 09:25 | HO.NEPHOV ---
Vital Signs 01/01/24 09:25 01/01/24 09:45 Height 5 ft 7 in Weight 208 lb BMI 32.6 BP 112/70 100/60 Blood Pressure Location Rt brachial Lt brachial Position Sitting Sitting Pulse 80 Pulse Source Pulse Oximeter Pulse Oximetry (%) 96 Oxygen Delivery Method Room Air Intake Visit Reasons: Hematuria/ 2 MO FU/ Conf Driller Helper Required: No Accompanied by: Self / Same As Patient Allergies shrimp Allergy (Severe, Verified 01/01/24 09:27) Difficulty Breathing atorvastatin [ATORVASTATIN] Adverse Reaction (Intermediate, Verified 01/01/24 09:27) elevated LFTs Medication List - Last Reconciled 01/01/24 by Juan Jose Deshpande MD cholecalciferol (vitamin D3) 50 mcg PO DAILY empagliflozin (Jardiance) 25 mg PO QAM eplerenone (Inspra) 50 mg PO QAM ezetimibe (Zetia) 10 mg PO DAILY hydrocodone-acetaminophen 5-325 mg 1 tab PO Q4-6H PRN insulin degludec (Tresiba FlexTouch U-100 insulin) 20 units subcut BEDTIME insulin lispro (Humalog KwikPen (U-100) Insulin) 1 sliding scale dose subcut TIDAC rifaximin 550 mg PO TID 2 weeks tadalafil (Cialis) 20 mg PO .PRN PRN 90 days tadalafil (Cialis) 5 mg PO DAILY 90 days thiamine HCl (vitamin B1) 100 mg PO TID vitamin A 1 cap PO QPM zinc sulfate 50 mg PO QPM HPI Comments Details: Steven is a very pleasant man with a h/o arthritis, ACD, CAD, depression, hypertension, fatty liver, fibromyalgia, hyperlipidemia, non alcoholic steatohepatitis, and type 2 diabetes. Essentially normal renal function Here for follow up 01/01/2024. He has been experiencing vague low back pain. Did not take any NSAIDs. Recent serum creatinine was 1.4 which is a new change. His blood pressure has been running low. He is on eplerenone, furosemide, lisinopril. During last visit lisinopril was decreased from 40 mg down to 20 mg due to low blood pressure. Despite this blood pressure remains low [facility] Medical History Back pain GERD (gastroesophageal reflux disease) CAD (coronary artery disease) Palpitations Arthritis Fibromyalgia SALGUERO (nonalcoholic steatohepatitis) Fatty liver Depression Hyperlipidemia, unspecified Type 2 diabetes mellitus with unspecified complications Essential hypertension Atherosclerotic cardiovascular disease Surgical History History of abdominal paracentesis Left inguinal hernia (05/04/23) Hx of cholecystectomy History of umbilical hernia repair Gallstone Hx of endoscopy History of colonoscopy History of ankle surgery Family History Father Diabetes Mother No problems noted. Social History Household Members: Spouse Housing: House Are you a primary critical care educator to a significant other at home: No Do you presently have visiting nurse or other home services: No Alcohol intake: unknown Comment: uses cane on occasion due to hip arthritis Patient Tobacco Use Status: Current someday Tobacco user Tobacco use type: Cigar service: No Current occupational status: employed Current occupation: [employer] Physical Exam Vital Signs: Last Vital Signs Pulse 80 01/01/24 09:25 BP 112/70 01/01/24 09:25 Pulse Ox 96 01/01/24 09:25 Oxygen Delivery Method Room Air 01/01/24 09:25 BMI result Body Mass Index 32.6 Const General: comfortable; No acute distress Orientation/consciousness: patient oriented x3 Eyes General: appearance normal, both eyes and all related structures Visual Davis: normal visual davis by confrontation Neck Neck: Yes supple and Yes no JVD Resp Effort & Inspection: normal respiratory effort and respiratory effort not decreased Auscultation: rhonchi Cardio Palpation: no palpable S3 and no palpable S4 Heart sounds: no rubs GI Inspection: Yes normal to inspection Palpation (GI): Soft to palpation Percussion: Yes normal to percussion Auscultation: normal bowel sounds General: Yes no CVA tenderness Back/Spine/Pelvis Back: no CVA tenderness Skin General skin exam: no petechiae and no purpura Neuro General: patient oriented x3 and no focal motor deficits Extrem General: No clubbing and No edema Results Reviewed Nephrology Results: Hgb 13.6 g/dl (14.0-18.0) L 12/27/23 WBC 9.1 X10*3/uL (4.8-10.8) 12/27/23 Plt Count 219 X10*3/uL (160-400) 12/27/23 Sodium 139 mmol/L (135-145) 12/27/23 Potassium 4.4 mmol/L (3.3-5.1) 12/27/23 Chloride 105 mmol/L (96-108) 12/27/23 Carbon Dioxide 22 mmol/L (22-29) 12/27/23 BUN 27 mg/dL (9-16) H 12/27/23 Creatinine 1.41 mg/dL (0.5-1.4) H 12/27/23 Calcium 9.5 mg/dL (8.4-10.2) 12/27/23 Urine Protein Negative mg/dL (Neg-Trace) 12/31/23 Urine Creatinine 70.00 mg/dL 10/31/23 Assessment & Plan Assessment & Plan (1) Hematuria: Code(s): R31.9 - Hematuria, unspecified Category: Medical (2) Essential hypertension: Code(s): I10 - Essential (primary) hypertension Category: Medical (3) Proteinuria: Code(s): R80.9 - Proteinuria, unspecified Category: Medical (4) Hyponatremia: Code(s): E87.1 - Hypo-osmolality and hyponatremia Category: Medical Plan Middle aged man with Essentially normal renal function in a setting of DM and SALGUERO No significant proteinuria SPEP revealed elevated beta 2 microglobulin. Serum immunofixation has been recommended. Microhematuria - painless'; follow-up with Urology Borderling low BP Recommend: Stop lisinopril. Stop furosemide. Recheck renal panel in 2 weeks. Ordered further serologies due to MALKA and beta 2 microglobulin urine Maintain BP < 130/80 Avoid Hypotension Watch K while on Aldactone and ACEi Restrict PO water intake due to hyponatremia Agree with current meds including SGLT-2 inhibitors - Glycosuria due to SGLT-2 inh Orders: Orders UA and rflx microscopic 2 Weeks N17.9 - Acute kidney failure, unspecified Immunofixation Pnl, Serum 2 Weeks N17.9 - Acute kidney failure, unspecified Myeloperoxidase Antibody 2 Weeks N17.9 - Acute kidney failure, unspecified, R80.9 - Proteinuria, unspecified Anti DNA DS Antibody 2 Weeks N17.9 - Acute kidney failure, unspecified, R80.9 - Proteinuria, unspecified Basic Metabolic Panel 2 Weeks N17.9 - Acute kidney failure, unspecified Total Protein Urine Random 2 Weeks N17.9 - Acute kidney failure, unspecified Creatinine Urine 2 Weeks N17.9 - Acute kidney failure, unspecified Complement C3 2 Weeks N17.9 - Acute kidney failure, unspecified, R80.9 - Proteinuria, unspecified Complement C4 2 Weeks N17.9 - Acute kidney failure, unspecified, R80.9 - Proteinuria, unspecified Neutrophil Cytoplasma Ab 2 Weeks N17.9 - Acute kidney failure, unspecified, R80.9 - Proteinuria, unspecified Anti Glomerular Basement Memb 2 Weeks N17.9 - Acute kidney failure, unspecified, R80.9 - Proteinuria, unspecified Coding Level of Care Code Est Pt Level 4 (43888) Diagnoses Hematuria R31.9 Essential hypertension I10 Proteinuria R80.9 Hyponatremia E87.1
[2024-01-01 09:45] VITALS: BP 100/60
== END 2024-01-01 09:45 | disposition home or self-care (01) ==
PROVIDERS: PCP Registered Nurse; Referring Provider Registered Nurse; Visit Provider Internal Medicine Hypertension Specialist
DX: R31.9 Hematuria, unspecified (principal); I10 Essential (primary) hypertension; R80.9 Proteinuria, unspecified; E87.1 Hypo-osmolality and hyponatremia
CPT/HCPCS: 99214

== ENCOUNTER → 2024-01-01 09:21 | Outpatient (BNVA) | payer MEDICAID, SELFPAY | PROVIDERS: PCP Registered Nurse; Visit Provider Internal Medicine Hypertension Specialist | DX: R31.9 Hematuria, unspecified (principal); I10 Essential (primary) hypertension; R80.9 Proteinuria, unspecified; E87.1 Hypo-osmolality and hyponatremia | CPT/HCPCS: 99212 ==

== ENCOUNTER 2024-01-24 09:06 | Outpatient (REF) | payer MEDICAID, SELFPAY ==
[2024-01-24 10:54] LABS: Appearance Urine Clear; Color Urine Yellow; Glucose Urine UA >=1000 mg/dL (Negative); Leukocyte Esterase Urine Negative (Negative); Nitrite Urine Negative (Negative); PH 5.5 (5.0-9.0); UMIC TRIGGER UA YES; Urine Blood Large (3+) (Negative); Urine Ketones Negative (Negative); Urine Protein Trace mg/dL (Neg-Trace)
[2024-01-24 11:00] LABS: Bacteria Urine None Seen (None Seen); Hyaline Casts Urine 0-2 /LPF (0-2); RBC Urine >20 /HPF (0-2); Squamous Epithelial Cell Urine 0-2 /HPF (0-2); WBC Urine 0-5 /HPF (0-5)
[2024-01-24 11:14] LABS: Anion Gap 18 (12-20); Blood Urea Nitrogen 15 mg/dL (9-16); Calcium 9.5 mg/dL (8.4-10.2); Carbon Dioxide 19 mmol/L (22-29); Chloride 107 mmol/L (96-108); Estimated Glomerular Filt Rate 58; Glucose Random 190 mg/dL (60-115); Potassium 4.2 mmol/L (3.3-5.1); Sodium 140 mmol/L (135-145)
[2024-01-24 11:30] LABS: Creatinine Urine 49.93 mg/dL; Total Protein Urine Random 23 mg/dL (<12)
[2024-01-28 10:23] LABS: Complement C3 79 mg/dL (82-185)
[2024-01-28 21:13] LABS: Anti DNA DS Antibody 2 IU/mL; Anti Glomerular Basement Memb <1.0 AI; Myeloperoxidase Antibody <1.0 AI
[2024-01-29 14:24] LABS: Neutrophil Cyto Ab Screen NEGATIVE (NEGATIVE)
[2024-01-30 13:07] LABS: IgA 967 mg/dL (47-310); IgG 1300 mg/dL (600-1640); IgM 172 mg/dL (50-300)
== END 2024-01-24 09:07 | disposition home or self-care (01) ==
LOC: HO.10HDL 09:06
PROVIDERS: Visit Provider Internal Medicine Hypertension Specialist
DX: I25.10 Atherosclerotic heart disease of native coronary artery without angina pectoris (principal); I35.0 Nonrheumatic aortic (valve) stenosis; E11.8 Type 2 diabetes mellitus with unspecified complications; E78.5 Hyperlipidemia, unspecified; Z79.899 Other long term (current) drug therapy; N17.9 Acute kidney failure, unspecified; R80.9 Proteinuria, unspecified
CPT/HCPCS: 36415; 80048; 81001; 82570; 82784; 83520; 84156; 86021; 86036; 86160; 86225; 86334; 93005; 99212

== ENCOUNTER 2024-01-24 10:18 | Outpatient (AMB) | payer MEDICAID, SELFPAY ==
[2024-01-24 10:23] VITALS: BP 122/68; PULSE 84; BMI 32.7
--- NOTE | 2024-01-24 10:23 | A.OFFVIS_ITS ---
Vital Signs 01/24/24 10:23 Height 5 ft 7 in Weight 208 lb 8.917 oz BMI 32.7 BP 122/68 Blood Pressure Location Lt brachial Position Sitting Pulse 84 Intake Visit Reasons: 6 mth f/up Fly Fishing Guide Required: No Fly Fishing Guide Services: Fly Fishing Guide Offered & Declined Accompanied by: Self / Same As Patient Allergies shrimp Allergy (Severe, Verified 01/01/24 09:27) Difficulty Breathing atorvastatin [ATORVASTATIN] Adverse Reaction (Intermediate, Verified 01/01/24 09:27) elevated LFTs Medication List - Last Reconciled 01/24/24 by Jovany Feliciano MD alirocumab (Praluent Pen) 75 mg subcut Q2W cholecalciferol (vitamin D3) 50 mcg PO DAILY empagliflozin (Jardiance) 25 mg PO QAM eplerenone (Inspra) 50 mg PO QAM hydrocodone-acetaminophen 5-325 mg 1 tab PO Q4-6H PRN insulin degludec (Tresiba FlexTouch U-100 insulin) 20 units subcut BEDTIME insulin lispro (Humalog KwikPen (U-100) Insulin) 1 sliding scale dose subcut TIDAC rifaximin 550 mg PO TID 2 weeks tadalafil (Cialis) 20 mg PO .PRN PRN 90 days tadalafil (Cialis) 5 mg PO DAILY 90 days thiamine HCl (vitamin B1) 100 mg PO TID vitamin A 1 cap PO QPM zinc sulfate 50 mg PO QPM HPI Comments Details: Steven returns for follow-up. In the past, he has been seen regarding hypertension as well as coronary disease. From a cardiac standpoint, no specific complaints like angina. Breathing is at baseline. Otherwise, he has also been diagnosed with cirrhosis and follows up with GI. [facility] Medical History (Updated 01/24/24 @ 11:35 by Jovany Feliciano MD) Cirrhosis Back pain GERD (gastroesophageal reflux disease) CAD (coronary artery disease) Palpitations Arthritis Fibromyalgia SALGUERO (nonalcoholic steatohepatitis) Fatty liver Depression Hyperlipidemia, unspecified Type 2 diabetes mellitus with unspecified complications Essential hypertension Atherosclerotic cardiovascular disease Surgical History History of abdominal paracentesis Left inguinal hernia (05/04/23) Hx of cholecystectomy History of umbilical hernia repair Gallstone Hx of endoscopy History of colonoscopy History of ankle surgery Family History Father Diabetes Mother No problems noted. Social History Household Members: Spouse Housing: House Are you a primary foster care social worker to a significant other at home: No Do you presently have visiting nurse or other home services: No Alcohol intake: unknown Comment: uses cane on occasion due to hip arthritis Patient Tobacco Use Status: Current someday Tobacco user Tobacco use type: Cigar service: No Current occupational status: employed Current occupation: [employer] Review of Systems Const Denies chills, Denies fatigue, Denies fever(s), Denies weight gain and Denies weight loss ENT Denies dizziness Card Denies chest pain, Denies leg edema, Denies lightheadedness, Denies palpitations, Denies dyspnea on exertion, Denies orthopnea and Denies other Resp Denies cough and Denies dyspnea on exertion GI Denies hematochezia and Denies change in stool character Musc Denies abnormal gait, Denies muscle weakness, Denies numbness, Denies radiating pain into limb and Denies tingling Neuro Denies abnormal gait, Denies dizziness, Denies numbness and Denies tingling Endo Denies fatigue and Denies palpitations Physical Exam Vital Signs: Last Vital Signs Pulse 84 01/24/24 10:23 BP 122/68 01/24/24 10:23 BMI result Body Mass Index 32.7 Const General: comfortable and no acute distress Orientation/consciousness: patient oriented x3 HEENT Other: Unremarkable Head: Yes normal to inspection Neck Neck: Yes normal visual inspection Chest Chest palpation & inspection: normal inspection of the chest Resp Auscultation: clear to auscultation bilaterally Cardio Palpation: normal PMI Heart sounds: S1 normal heart sound present, S2 normal heart sound present, no gallops, Murmur heart sound present systolic I/ and at the right sternal border and no rubs GI Palpation (GI): Soft to palpation Back/Spine/Pelvis Other: unremarkable Skin General skin exam: no rashes or lesions noted Neuro General: patient oriented x3 Extrem General: Yes normal to inspection Psych Mental Status: mental status grossly normal Office Procedures EKG Details: EKG with sinus rhythm at 84/Min; no significant ST-T changes and otherwise unremarkable[place] [id number], Complete Assessment & Plan Assessment & Plan (1) Atherosclerotic cardiovascular disease: Code(s): I25.10 - Atherosclerotic heart disease of [place] coronary artery without angina pectoris Category: Medical Plan: Coronary CTA 2022--LAD had scattered calcifications. At, the proximal LAD, mild mixed plaque. Just after the D2 takeoff there is mixed plaque in LAD causing 50% narrowing. Circumflex had scattered calcifications. Midportion had prominent calcification. Cannot exclude high-grade stenosis in that area. Vessel relatively small. Right coronary artery had mild calcification. Total coronary artery calcium score 186. In the stress test from 2022, able to exercise for 9.2 Mets and reached target heart rate but no symptoms like angina. Echocardiogram with LVEF of 55-60%. Mild aortic stenosis. In the absence of angina, continue medical management. He can not take aspirin because of acid reflux. He has had issues with statins. He was not Zetia but lipids were still high. Most recently, he is on Praluent. We will check lipids in about 2-3 months or so. (2) Non-rheumatic aortic stenosis: Code(s): I35.0 - Nonrheumatic aortic (valve) stenosis Category: Medical Plan: In the last echocardiogram, mild aortic stenosis. We will follow this p eriodically. (3) Type 2 diabetes mellitus with unspecified complications: Comment: IDDM-taking Tresiba & Novolog-glucose usually ~ 150-160 Code(s): E11.8 - Type 2 diabetes mellitus with unspecified complications Category: Medical Plan: On Insulin, Jardiance. Random glucose today from lab was 190 mg/dL. No recent hemoglobin A1c. Suspect probably not well controlled as several random sugars are on the higher side. (4) Hyperlipidemia, unspecified: Code(s): E78.5 - Hyperlipidemia, unspecified Category: Medical Plan: Continue Praluent and follow-up lipids. Orders: Orders Lipid Panel 2 Months E78.5 - Hyperlipidemia, unspecified Coding Level of Care Code Est Pt Level 4 (17139) Diagnoses Atherosclerotic cardiovascular disease I25.10 Non-rheumatic aortic stenosis I35.0 Type 2 diabetes mellitus with unspecified complications E11.8 Hyperlipidemia, unspecified E78.5 CPT Codes EKG - CPT: 75147-[id number], Complete ([id number])
== END 2024-01-24 10:51 | disposition home or self-care (01) ==
PROVIDERS: PCP Registered Nurse; Visit Provider Internal Medicine
DX: I25.10 Atherosclerotic heart disease of native coronary artery without angina pectoris (principal); I35.0 Nonrheumatic aortic (valve) stenosis; E11.8 Type 2 diabetes mellitus with unspecified complications; E78.5 Hyperlipidemia, unspecified
CPT/HCPCS: 93010; 99214

== ENCOUNTER 2024-01-28 10:21 | Outpatient (AMB) | payer MEDICAID, SELFPAY ==
[2024-01-28 10:24] VITALS: BP 166/86; PULSE 101; O2SAT 96; BMI 31.6
--- NOTE | 2024-01-28 10:24 | HO.NEPHOV ---
Vital Signs 01/28/24 10:24 Height 5 ft 7 in Weight 202 lb BMI 31.6 BP 166/86 H Blood Pressure Location Rt brachial Position Sitting Pulse 101 H Pulse Source Pulse Oximeter Pulse Oximetry (%) 96 Oxygen Delivery Method Room Air Intake Visit Reasons: Hematuria/Conf Certified Histologic Technician Required: No Accompanied by: Self / Same As Patient Allergies shrimp Allergy (Severe, Verified 01/28/24 10:25) Difficulty Breathing atorvastatin [ATORVASTATIN] Adverse Reaction (Intermediate, Verified 01/28/24 10:25) elevated LFTs Medication List - Last Reconciled 01/28/24 by Juan Jose Deshpande MD alirocumab (Praluent Pen) 75 mg subcut Q2W cholecalciferol (vitamin D3) 50 mcg PO DAILY empagliflozin (Jardiance) 25 mg PO QAM eplerenone (Inspra) 50 mg PO QAM hydrocodone-acetaminophen 5-325 mg 1 tab PO Q4-6H PRN insulin degludec (Tresiba FlexTouch U-100 insulin) 20 units subcut BEDTIME insulin lispro (Humalog KwikPen (U-100) Insulin) 1 sliding scale dose subcut TIDAC rifaximin 550 mg PO TID 2 weeks tadalafil (Cialis) 20 mg PO .PRN PRN 90 days tadalafil (Cialis) 5 mg PO DAILY 90 days thiamine HCl (vitamin B1) 100 mg PO TID vitamin A 1 cap PO QPM zinc sulfate 50 mg PO QPM HPI Comments Details: Steven is a very pleasant man with a h/o arthritis, ACD, CAD, depression, hypertension, fatty liver, fibromyalgia, hyperlipidemia, non alcoholic steatohepatitis, and type 2 diabetes. Essentially normal renal function Here for follow up 01/01/2024. He has been experiencing vague low back pain. Did not take any NSAIDs. Recent serum creatinine was 1.4 which is a new change. His blood pressure has been running low. He is on eplerenone, furosemide, lisinopril. During last visit lisinopril was decreased from 40 mg down to 20 mg due to low blood pressure. Despite this blood pressure remains low 01/28/24 After stopping Lisinopril and LAsix, Creatinine has improved No edema [facility] Medical History (Updated 01/24/24 @ 11:35 by Jovany Feliciano MD) Cirrhosis Back pain GERD (gastroesophageal reflux disease) CAD (coronary artery disease) Palpitations Arthritis Fibromyalgia SALGUERO (nonalcoholic steatohepatitis) Fatty liver Depression Hyperlipidemia, unspecified Type 2 diabetes mellitus with unspecified complications Essential hypertension Atherosclerotic cardiovascular disease Surgical History History of abdominal paracentesis Left inguinal hernia (05/04/23) Hx of cholecystectomy History of umbilical hernia repair Gallstone Hx of endoscopy History of colonoscopy History of ankle surgery Family History Father Diabetes Mother No problems noted. Social History Household Members: Spouse Housing: House Are you a primary medicare interviewer to a significant other at home: No Do you presently have visiting nurse or other home services: No Alcohol intake: unknown Comment: uses cane on occasion due to hip arthritis Patient Tobacco Use Status: Current someday Tobacco user Tobacco use type: Cigar service: No Current occupational status: employed Current occupation: [employer] Physical Exam Vital Signs: Last Vital Signs Pulse 101 H 01/28/24 10:24 BP 166/86 H 01/28/24 10:24 Pulse Ox 96 01/28/24 10:24 Oxygen Delivery Method Room Air 01/28/24 10:24 BMI result Body Mass Index 31.6 Const General: comfortable; No acute distress Orientation/consciousness: patient oriented x3 Eyes General: appearance normal, both eyes and all related structures Visual Davis: normal visual davis by confrontation Neck Neck: Yes supple and Yes no JVD Resp Effort & Inspection: normal respiratory effort and respiratory effort not decreased Auscultation: rhonchi Cardio Palpation: no palpable S3 and no palpable S4 Heart sounds: no rubs GI Inspection: Yes normal to inspection Palpation (GI): Soft to palpation Percussion: Yes normal to percussion Auscultation: normal bowel sounds General: Yes no CVA tenderness Back/Spine/Pelvis Back: no CVA tenderness Skin General skin exam: no petechiae and no purpura Neuro General: patient oriented x3 and no focal motor deficits Extrem General: No clubbing and No edema Results Reviewed Nephrology Results: Hgb 13.6 g/dl (14.0-18.0) L 12/27/23 WBC 9.1 X10*3/uL (4.8-10.8) 12/27/23 Plt Count 219 X10*3/uL (160-400) 12/27/23 Sodium 140 mmol/L (135-145) 01/24/24 Potassium 4.2 mmol/L (3.3-5.1) 01/24/24 Chloride 107 mmol/L (96-108) 01/24/24 Carbon Dioxide 19 mmol/L (22-29) L 01/24/24 BUN 15 mg/dL (9-16) 01/24/24 Creatinine 1.27 mg/dL (0.5-1.4) 01/24/24 Calcium 9.5 mg/dL (8.4-10.2) 01/24/24 Urine Protein Trace mg/dL (Neg-Trace) 01/24/24 Urine Creatinine 49.93 mg/dL 01/24/24 Assessment & Plan Assessment & Plan (1) Hematuria: Code(s): R31.9 - Hematuria, unspecified Category: Medical (2) Essential hypertension: Code(s): I10 - Essential (primary) hypertension Category: Medical (3) Proteinuria: Code(s): R80.9 - Proteinuria, unspecified Category: Medical (4) Hyponatremia: Code(s): E87.1 - Hypo-osmolality and hyponatremia Category: Medical Plan Middle aged man with Essentially normal renal function in a setting of DM and SALGUERO No significant proteinuria SPEP revealed elevated beta 2 microglobulin. Serum immunofixation has been recommended. Microhematuria - painless'; follow-up with Urology BP sub optimal Recommend: Restart lisinopril at 10 mg daily Continue to hold furosemide. Recheck renal panel Maintain BP < 130/80 Avoid Hypotension Watch K while on Eplerenone and ACEi Restrict PO water intake due to hyponatremia Agree with current meds including SGLT-2 inhibitors - Glycosuria due to SGLT-2 inh Medications: New lisinopril 10 mg PO DAILY 90 tabs 1RF Coding Level of Care Code Est Pt Level 4 (19726) Diagnoses Hematuria R31.9 Essential hypertension I10 Proteinuria R80.9 Hyponatremia E87.1
== END 2024-01-28 10:38 | disposition home or self-care (01) ==
PROVIDERS: PCP Registered Nurse; Visit Provider Internal Medicine Hypertension Specialist
DX: R31.9 Hematuria, unspecified (principal); I10 Essential (primary) hypertension; R80.9 Proteinuria, unspecified; E87.1 Hypo-osmolality and hyponatremia
CPT/HCPCS: 99214

== ENCOUNTER → 2024-01-28 10:21 | Outpatient (BNVA) | payer MEDICAID, SELFPAY | PROVIDERS: PCP Registered Nurse; Visit Provider Internal Medicine Hypertension Specialist | DX: R31.9 Hematuria, unspecified (principal); R80.9 Proteinuria, unspecified; I10 Essential (primary) hypertension; E87.1 Hypo-osmolality and hyponatremia | CPT/HCPCS: 99212 ==

== ENCOUNTER 2024-02-06 08:56 | Outpatient (AMB) | payer MEDICAID, SELFPAY ==
--- NOTE | 2024-02-06 09:20 | MHC.OFFVIS ---
Intake Visit Reasons: umbilical hernia Intake Note: Patient is seen in office for evaluation of an umbilical hernia. Pt c/o: onset one month, feels a lump on the belly button, denies n/v/d/c, does not do heavy lifting, woke up one day and felt a ball L.OV: 09/24/23 ([facility]) Accompanied by: Self / Same As Patient Allergies shrimp Allergy (Severe, Verified 02/06/24 09:21) Difficulty Breathing atorvastatin [ATORVASTATIN] Adverse Reaction (Intermediate, Verified 02/06/24 09:21) elevated LFTs HPI Comments Details: Patient is status post left inguinal hernia repair. He presents here because of some umbilical discomfort. He states he had umbilical hernia repair in the distant past. He is otherwise tolerating his diet, having regular bowel habits. [facility] Medical History Cirrhosis Back pain GERD (gastroesophageal reflux disease) CAD (coronary artery disease) Palpitations Arthritis Fibromyalgia SALGUERO (nonalcoholic steatohepatitis) Fatty liver Depression Hyperlipidemia, unspecified Type 2 diabetes mellitus with unspecified complications Essential hypertension Atherosclerotic cardiovascular disease Surgical History History of abdominal paracentesis Left inguinal hernia (05/04/23) Hx of cholecystectomy History of umbilical hernia repair Gallstone Hx of endoscopy History of colonoscopy History of ankle surgery Family History Father Diabetes Mother No problems noted. Social History Household Members: Spouse Housing: House Are you a primary director of career services to a significant other at home: No Do you presently have visiting nurse or other home services: No Alcohol intake: unknown Comment: uses cane on occasion due to hip arthritis Patient Tobacco Use Status: Current someday Tobacco user Tobacco use type: Cigar service: No Current occupational status: employed Current occupation: [employer] Physical Exam GI Other: Patient was examined both supine and standing with Valsalva. Abdomen corpulent, soft, benign. No evidence of any umbilical hernia or infection. Left groin negative. Well healed Assessment & Plan Assessment & Plan (1) Postop check: Code(s): Z09 - Encounter for follow-up examination after completed treatment for conditions other than malignant neoplasm Category: Surgical Plan At present, patient will be treated conservatively. His umbilical symptoms demonstrate no obvious hernia or infection. Patient is status post left inguinal hernia repair which is healing uneventfully. He has been given local instructions, and otherwise follow-up p.r.n.. All questions answered. Coding Level of Care Code Global (69893) Diagnoses Postop check Z09
== END 2024-02-06 09:32 | disposition home or self-care (01) ==
PROVIDERS: PCP Registered Nurse; Visit Provider Surgery
DX: Z09 Encounter for follow-up examination after completed treatment for conditions other than malignant neoplasm (principal)
CPT/HCPCS: 99212

== ENCOUNTER → 2024-02-06 08:56 | Outpatient (BNVA) | payer MEDICAID, SELFPAY | PROVIDERS: PCP Registered Nurse; Visit Provider Surgery | DX: Z09 Encounter for follow-up examination after completed treatment for conditions other than malignant neoplasm (principal); Z98.890 Other specified postprocedural states | CPT/HCPCS: 99212 ==

== ENCOUNTER 2024-02-11 11:52 | Outpatient (AMB) | payer MEDICAID, SELFPAY ==
--- NOTE | 2024-02-11 11:53 | HO.NEPHOV ---
Vital Signs 02/11/24 11:55 Height 5 ft 7 in Weight 212 lb 8 oz BMI 33.3 BP 106/70 Blood Pressure Location Lt brachial Position Sitting Pulse 88 Pulse Source Pulse Oximeter Pulse Oximetry (%) 97 Oxygen Delivery Method Room Air Intake Visit Reasons: Swelling/ Dr Deshpande pt Manager Education Required: No Accompanied by: Self / Same As Patient Allergies shrimp Allergy (Severe, Verified 02/11/24 11:57) Difficulty Breathing atorvastatin [ATORVASTATIN] Adverse Reaction (Intermediate, Verified 02/11/24 11:57) elevated LFTs HPI Comments Details: Steven is a very pleasant man with a h/o arthritis, ACD, CAD, depression, hypertension, fatty liver, fibromyalgia, hyperlipidemia, non alcoholic steatohepatitis, and type 2 diabetes. He essentially has good renal function. He was seen as an urgent visit for worsening edema. He has not been taking any diuretics. Recently after holding ACEI and diuretics his creatinine had improved. He denies SOB, PND or orthopnea but feels that he has been having ascites. He has not been very strict with low sodium diet. He does not weight himself. He claims to be compliant with medications. He has not had any other medication changes lately [facility] Medical History Cirrhosis Back pain GERD (gastroesophageal reflux disease) CAD (coronary artery disease) Palpitations Arthritis Fibromyalgia SALGUERO (nonalcoholic steatohepatitis) Fatty liver Depression Hyperlipidemia, unspecified Type 2 diabetes mellitus with unspecified complications Essential hypertension Atherosclerotic cardiovascular disease Surgical History History of abdominal paracentesis Left inguinal hernia (05/04/23) Hx of cholecystectomy History of umbilical hernia repair Gallstone Hx of endoscopy History of colonoscopy History of ankle surgery Family History Father Diabetes Mother No problems noted. Social History Household Members: Spouse Housing: House Are you a primary care team assistant to a significant other at home: No Do you presently have visiting nurse or other home services: No Alcohol intake: unknown Comment: uses cane on occasion due to hip arthritis Patient Tobacco Use Status: Current someday Tobacco user Tobacco use type: Cigar service: No Current occupational status: employed Current occupation: [employer] Review of Systems Const All systems reviewed & are unremarkable except as noted in HPI and below Physical Exam Vital Signs: Last Vital Signs Pulse 88 02/11/24 11:55 BP 106/70 02/11/24 11:55 Pulse Ox 97 02/11/24 11:55 Oxygen Delivery Method Room Air 02/11/24 11:55 BMI result Body Mass Index 33.3 Const General: comfortable and no acute distress Orientation/consciousness: patient oriented x3 HEENT Head: Yes normocephalic Mouth: Normal oral and palatal mucosa present Eyes EOM: EOMs intact bilaterally Neck Neck: Yes supple Resp Auscultation: clear to auscultation bilaterally Cardio Jugular venous distension: no JVD Rate: regular rate GI Palpation (GI): Soft to palpation Auscultation: normal bowel sounds General: Yes no CVA tenderness Back/Spine/Pelvis Back: no CVA tenderness Skin General skin exam: no rashes or lesions noted Neuro General: patient oriented x3 and moves all extremities Extrem General: Yes edema Results Reviewed Nephrology Results: Hgb 13.6 g/dl (14.0-18.0) L 12/27/23 WBC 9.1 X10*3/uL (4.8-10.8) 12/27/23 Plt Count 219 X10*3/uL (160-400) 12/27/23 Sodium 140 mmol/L (135-145) 01/24/24 Potassium 4.2 mmol/L (3.3-5.1) 01/24/24 Chloride 107 mmol/L (96-108) 01/24/24 Carbon Dioxide 19 mmol/L (22-29) L 01/24/24 BUN 15 mg/dL (9-16) 01/24/24 Creatinine 1.27 mg/dL (0.5-1.4) 01/24/24 Calcium 9.5 mg/dL (8.4-10.2) 01/24/24 Urine Protein Trace mg/dL (Neg-Trace) 01/24/24 Urine Creatinine 49.93 mg/dL 01/24/24 Assessment & Plan Assessment & Plan (1) Essential hypertension: Code(s): I10 - Essential (primary) hypertension Category: Medical (2) CKD stage 3a, GFR 45-59 ml/min: Code(s): N18.31 - Chronic kidney disease, stage 3a Category: Medical (3) Edema: Code(s): R60.9 - Edema, unspecified Category: Medical Qualifiers: Edema type: localized Qualified Code(s): R60.0 - Localized edema Plan Middle aged man with Essentially normal renal function in a setting of DM and SALGUERO who has no significant proteinuria. SPEP revealed elevated beta 2 microglobulin. Serum immunofixation had been recommended. Has H/O microscopic hematuria - painless'; follow-up with Urology. BP control good.On ACEI. Started lasix 40 mg daily. Watch K while on Eplerenone and ACEi( follow up blood work ordered). Low sodium diet/ Daily weights. Needs F/U with GI. Time spent reviewing all his records, encounter , documentation 46mts. F/U given. Orders: Orders Creatinine Today I10 - Essential (primary) hypertension, N18.31 - Chronic kidney disease, stage 3a, R60.9 - Edema, unspecified Electrolytes Today I10 - Essential (primary) hypertension, N18.31 - Chronic kidney disease, stage 3a, R60.9 - Edema, unspecified Blood Urea Nitrogen Today I10 - Essential (primary) hypertension, N18.31 - Chronic kidney disease, stage 3a, R60.9 - Edema, unspecified Coding Level of Care Code Est Pt Level 5 (60705) Diagnoses Essential hypertension I10 CKD stage 3a, GFR 45-59 ml/min N18.31 Localized edema R60.0 Edema type: localized
[2024-02-11 11:55] VITALS: BP 106/70; PULSE 88; O2SAT 97; BMI 33.3
== END 2024-02-11 12:36 | disposition home or self-care (01) ==
PROVIDERS: PCP Registered Nurse; Referring Provider Registered Nurse; Visit Provider Internal Medicine Nephrology
DX: I12.9 Hypertensive chronic kidney disease with stage 1 through stage 4 chronic kidney disease, or unspecified chronic kidney disease (principal); E11.22 Type 2 diabetes mellitus with diabetic chronic kidney disease; N18.31 Chronic kidney disease, stage 3a; R60.0 Localized edema
CPT/HCPCS: 99215

== ENCOUNTER → 2024-02-11 11:52 | Outpatient (BNVA) | payer MEDICAID, SELFPAY | PROVIDERS: PCP Registered Nurse; Visit Provider Internal Medicine Nephrology | DX: I12.9 Hypertensive chronic kidney disease with stage 1 through stage 4 chronic kidney disease, or unspecified chronic kidney disease (principal); R60.0 Localized edema; N18.31 Chronic kidney disease, stage 3a | CPT/HCPCS: 99212 ==

== ENCOUNTER 2024-02-12 10:54 | Outpatient (AMB) | payer MEDICAID, SELFPAY ==
[2024-02-12 11:05] VITALS: BMI 33.2
--- NOTE | 2024-02-12 11:05 | A.OFFVIS_ITS ---
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 Patient reports on and off numbness and tingling that radiates up the arms that does not occur daily. Patient reports multiple finger locking on fingers. Patient describes pain 6/7 on a 0-10 pain scale. Reports he does not take anything for pain. Patient denies prior injuries or surgeries to the hands. Per patient, no EMG has been done. 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 The patient reports that symptoms are intermittent, but daily, worse at night, and regularly prevent him from sleeping or keep him awake. The patient reports that he has not had any EMG done. The patient also reports that his fingers feel ?sticky? when he attempts extension after flexion, and he also reports that he thinks he may be experiencing catching in his left ring finger. Patient reports sensation is normal at this time. No other acute complaints or concerns. [facility] Medical History Cirrhosis Back pain GERD (gastroesophageal reflux disease) CAD (coronary artery disease) Palpitations Arthritis Fibromyalgia SALGUERO (nonalcoholic steatohepatitis) Fatty liver Depression Hyperlipidemia, unspecified Type 2 diabetes mellitus with unspecified complications Essential hypertension Atherosclerotic cardiovascular disease Surgical History History of abdominal paracentesis Left inguinal hernia (05/04/23) Hx of cholecystectomy History of umbilical hernia repair Gallstone Hx of endoscopy History of colonoscopy History of ankle surgery Family History Father Diabetes Mother No problems noted. Social History Household Members: Spouse Housing: House Are you a primary palliative care physician to a significant other at home: No Do you presently have visiting nurse or other home services: No Alcohol intake: unknown Comment: uses cane on occasion due to hip arthritis Patient Tobacco Use Status: Current someday Tobacco user Tobacco use type: Cigar service: No Current occupational status: employed Current occupation: [employer] Review of Systems Const All systems reviewed & are unremarkable except as noted in HPI and below Physical Exam Vital Signs: BMI result Body Mass Index 33.2 Extrem Other: Patient is alert, oriented, and in no acute distress. Neuro: Median, ulnar, radial nerves motor and sensory intact and sensation is normal to the tips of all digits. Vascular: Cap refill brisk Pain: Patient reports no pain to palpation at this time Oekzy-ge-naumhf testing painless No tenderness to palpation of the A1 izzy of the left ring finger ROM: Range of motion of bilateral hands full and intact No visible or palpable locking and catching of any digit of the hand bilaterally Skin: No lacerations or abrasions. General: No ecchymosis, erythema, or evidence of infection. Negative Tinel's test at the wrist bilaterally Psych: Appears grossly normal Affect normal Attitude cooperative Assessment & Plan Assessment & Plan (1) Numbness and tingling in both hands: Code(s): R20.0 - Anesthesia of skin; R20.2 - Paresthesia of skin Category: Medical Plan 1. Bilateral hand numbness and tingling Symptoms intermittent, but daily, worse at night At this time, patient is referred for EMG and nerve conduction study to test the nerves of bilateral upper extremities Patient is amenable to this plan Patient is also advised to continue to monitor his left ring finger to see if it is actually locking and catching Patient will follow-up after nerve conduction study for review of findings and discussion of further treatment options, sooner with any acute concerns Orders: Orders NE nerve conduction velocity Today R20.0 - Anesthesia of skin, R20.2 - P aresthesia of skin NE electromyogram (EMG) Today R20.0 - Anesthesia of skin, R20.2 - Paresthesia of skin Coding Level of Care Code New Pt Level 3 (76711) Diagnoses Numbness and tingling in both hands R20.0; R20.2
== END 2024-02-12 12:21 | disposition home or self-care (01) ==
PROVIDERS: PCP Registered Nurse
DX: R20.0 Anesthesia of skin (principal); R20.2 Paresthesia of skin
CPT/HCPCS: 99203

== ENCOUNTER → 2024-02-12 10:54 | Outpatient (BNVA) | payer MEDICAID, SELFPAY | PROVIDERS: PCP Registered Nurse | DX: R20.0 Anesthesia of skin (principal); R20.2 Paresthesia of skin | CPT/HCPCS: 99212 ==

== ENCOUNTER 2024-03-14 10:08 | Outpatient (REF) | payer MEDICAID, SELFPAY ==
--- NOTE | 2024-03-14 10:11 | EMG_ITS ---
Chief complaint: Bilateral hand numbness, history of diabetes Reason for referral: Evaluate for Carpal Tunnel Syndrome Referred by: Osvaldo BROWNE Procedure done: Bilateral upper extremities NCS/EMG Precautions and/or limitations: None The limb temperature was monitored continuously and remained between 32-36 degrees C during the performance of the NCS. Nerve Conduction Studies Anti Sensory Summary Table ?Stim Site NR Onset (ms) Norm Onset (ms) Peak (ms) Norm Peak (ms) O-P Amp (?V) Norm O-P Amp Site1 Site2 Delta-0 (ms) Dist (cm) Gage (m/s) Norm Gage (m/s) Left Median Anti Sensory (2nd Digit) Wrist ? 2.9 3.6 <3.6 12.7 >10 Wrist 2nd Digit 2.9 14.0 48 Right Median Anti Sensory (2nd Digit) Wrist ? 2.8 3.5 <3.6 6.9 >10 Wrist 2nd Digit 2.8 14.0 50 Right Radial Anti Sensory (Thumb) Forearm ? 1.6 2.1 <3.1 25.8 Forearm Thumb 1.6 0.0 Left Ulnar Anti Sensory (5th Digit) Wrist ? 2.4 3.2 <3.7 14.5 >15.0 Wrist 5th Digit 2.4 14.0 58 Right Ulnar Anti Sensory (5th Digit) Wrist ? 2.1 2.7 <3.7 5.4 >15.0 Wrist 5th Digit 2.1 14.0 67 Motor Summary Table ?Stim Site NR Onset (ms) Norm Onset (ms) O-P Amp (mV) Norm O-P Amp iAmp (mV) Amp (1st) (%) Site1 Site2 Delta-0 (ms) Dist (cm) Gage (m/s) Norm Gage (m/s) Left Median Motor (Abd Poll Brev) Wrist ? 3.8 <3.9 8.0 >4.5 9.4 100.0 Elbow Wrist 4.1 21.5 52 >45 Elbow ? 7.9 7.5 8.8 93.8 Right Median Motor (Abd Poll Brev) Wrist ? 3.4 <3.9 9.6 >4.5 11.6 100.0 Elbow Wrist 3.9 20.0 51 >45 Elbow ? 7.3 9.5 11.4 99.0 Left Ulnar Motor (Abd Dig Minimi) Wrist ? 2.8 <3.0 5.2 >5 6.1 100.0 B Elbow Wrist 3.5 19.0 54 >45 B Elbow ? 6.3 4.2 5.3 80.8 A Elbow B Elbow 1.8 10.0 56 >45 A Elbow ? 8.1 4.5 5.7 86.5 Right Ulnar Motor (Abd Dig Minimi) Wrist ? 2.5 <3.0 6.1 >5 6.9 100.0 B Elbow Wrist 3.6 20.0 56 >45 B Elbow ? 6.1 5.6 6.6 91.8 A Elbow B Elbow 1.6 10.0 62 >45 A Elbow ? 7.7 5.3 6.4 86.9 Comparison Summary Table ?Stim Site NR Peak (ms) Norm Peak (ms) P-T Amp (?V) Site1 Site2 Delta-P (ms) Norm Delta (ms) Left Median/Radial Dig I Comparison (Digit 1 - 10cm) Median ? 3.2 <2.9 16.1 Median Radial 0.8 Radial ? 2.4 <2.8 13.4 Right Median/Radial Dig I Comparison (Digit 1 - 10cm) Median ? 3.5 <2.9 16.7 Median Radial 1.2 Radial ? 2.3 <2.8 16.8 EMG ?Side Muscle Nerve Root Ins Act Fibs Psw Amp Dur Poly Recrt Int Pat Comment Right 1stDorInt Ulnar C8-T1 Nml Nml Nml Nml Nml 0 Nml Complete Right FlexCarRad Median C6-7 Nml Nml Nml Nml Nml 0 Nml Complete Right Biceps Musculocut C5-6 Nml Nml Nml Nml Nml 0 Nml Complete Right Triceps Radial C6-7-8 Nml Nml Nml Nml Nml 0 Nml Complete Right Deltoid Axillary C5-6 Nml Nml Nml Nml Nml 0 Nml Complete Left 1stDorInt Ulnar C8-T1 Nml Nml Nml Nml Nml 0 Nml Complete Left FlexCarRad Median C6-7 Nml Nml Nml Nml Nml 0 Nml Complete Left Biceps Musculocut C5-6 Nml Nml Nml Nml Nml 0 Nml Complete Left Triceps Radial C6-7-8 Nml Nml Nml Nml Nml 0 Nml Complete Left Deltoid Axillary C5-6 Nml Nml Nml Nml Nml 0 Nml Complete FINDINGS: Significant interlatency difference seen between median and radial sensory nerves, bilateral. Right median sensory nerve showed smaller amplitude compared to left, but normal peak latencies. All other nerves tested were within normal. Concentric needle EMG was performed in selected muscles of the upper extremity. Study did not reveal signs of electric abnormalities as shown in the table above. IMPRESSION: 1. This is an abnormal study. 2. There is electrodiagnostic evidence for bilateral very mild/borderline median neuropathy at the wrist, could still be consistent with carpal tunnel syndrome. 3. There is no electrodiagnostic evidence for ulnar neuropathy, brachial plexopathy, or cervical radiculopathy. CLINICAL COMMENT: Some of the sensory nerves had small amplitudes but normal peak latencies. Patient denies history of peripheral neuropathy or feet numbness. Thank you for your kind referral. Grace Ordoñez MD, DENIA Board Certified, [place] Board [employer] Physical Medicine and Rehabilitation (ABPMR) Board Certified, [place] Board of Electrodiagnostic Medicine (ABEM) CODIN [id number] x 2 MTDD
== END 2024-03-14 10:09 | disposition home or self-care (01) ==
LOC: HO.NEURO 10:08
PROVIDERS: PCP Registered Nurse
DX: R20.0 Anesthesia of skin (principal); R20.2 Paresthesia of skin
CPT/HCPCS: 95886; 95911

== ENCOUNTER → 2024-03-14 10:11 | Outpatient (BNV) | payer MEDICAID, SELFPAY | PROVIDERS: PCP Registered Nurse; Visit Provider Physical Medicine & Rehabilitation | DX: G56.03 Carpal tunnel syndrome, bilateral upper limbs (principal) | CPT/HCPCS: 95886; 95911 ==

== ENCOUNTER 2024-03-20 08:18 | Emergency (ER) | payer OTHER, MEDICAID, SELFPAY ==
--- NOTE | ~2024-03-20 | XR_ITS ---
EXAMINATION: XR SHOULDER, LEFT CLINICAL INFORMATION: Pain COMPARISON: None available. TECHNIQUE: Three views of the left shoulder. FINDINGS: No acute visible fracture or dislocation. Degenerative arthropathy of the glenohumeral and acromioclavicular joint. 4 mm ossific density along the lateral margin of the left humeral head suggesting calcific tendinosis of the supraspinatus tendon. Joint space and alignment is maintained. Nodular soft tissue thickening/density in the left supraclavicular region measuring 1.8 x 0.9 cm potentially representing a lymph node. Correlation with symptomatology. Visualized portions of the chest are unremarkable. XR/XR shoulder LT min 2V IMPRESSION: 1. No acute visible fracture or dislocation. 2. Degenerative arthropathy of the glenohumeral and acromioclavicular joint. 3. 4 mm ossific density along the lateral margin of the left humeral head suggesting calcific tendinosis of the supraspinatus tendon. 4. Nodular soft tissue thickening/density in the left supraclavicular region measuring 1.8 x 0.9 cm potentially representing a lymph node. Correlation with symptomatology. Electronically signed by: Amador Lobo MD 03/20/2024 10:47 AM EDT
--- NOTE | ~2024-03-20 | CT_ITS ---
EXAMINATION: CT ABDOMEN AND PELVIS WITHOUT CONTRAST CLINICAL INFORMATION: History of hernia with Umbilical hernia COMPARISON: CT abdomen and pelvis 10/02/2023 TECHNIQUE: Multidetector volumetric imaging was performed from the superior aspect of the liver through the pubic symphysis. Sagittal and coronal reformatted images were obtained on the technologist's workstation. This CT examination was performed using dose optimization techniques as appropriate, variously including the following: *Automated exposure control *Adjustment of mA and/or kV according to patient size (this includes techniques or standardized protocols for targeted exams where dose is matched to indication/reason for exam; i.e. extremities or head) *Use of iterative reconstruction technique DLP: 993 mGy-cm FINDINGS: LUNG BASES: The visualized lung bases are unremarkable. LIVER, GALLBLADDER, AND BILIARY TREE: The liver has a nodular border and decreased attenuation consistent with hepatic steatosis and cirrhosis. There is recanalization of a large umbilical vein which extends through the abdominal wall (see below). A small punctate calcification is seen (3:24) along with a 1.7 cm water density hepatic cyst (3:24) which has been seen in the past status post cholecystectomy. PANCREAS: Unremarkable. SPLEEN: Unremarkable. ADRENAL GLANDS: Unremarkable. KIDNEYS AND URETERS: The kidneys are normal in size, shape, and attenuation. No hydronephrosis, hydroureter, or calculi seen. A benign subcentimeter mid right renal Bosniak class I renal cyst is noted which requires no additional imaging or follow up. No solid renal masses are seen. There is nonspecific bilateral perinephric stranding. BLADDER: Unremarkable. GASTROINTESTINAL TRACT: The small and large bowel are unremarkable. The appendix is unremarkable. ABDOMINAL WALL: Tiny periumbilical hernia is seen with a fascial defect measuring 2.0 x 1.2 cm. The hernia sac is 2.4 x 2.6 x 3.0 cm. The sac contains a small amount of small bowel. Just to the left of the hernia sac, the recanalized umbilical vein transgresses the abdominal wall with an area of venous dilatation measuring 1.9 x 1.3 x 1.6 cm (3:58 and 7:67). LYMPH NODES: There is no retroperitoneal lymphadenopathy. VASCULAR: Unremarkable. See discussion above regarding the umbilical vein. Incidental note is made of a retroaortic left renal vein. PELVIC VISCERA: The prostate and seminal vesicles are unremarkable OSSEOUS STRUCTURES: Degenerative changes are present at L5-S1. CT/CT abdomen pelvis wo IV con IMPRESSION: 1. Small periumbilical hernia as described above. 2. Cirrhotic liver with recanalization of a large umbilical vein. 3. Other incidental findings as described above. Fleischner guidelines were followed. Electronically signed by: Manuel Carrasquillo MD 03/20/2024 12:50 PM EDT RP
[2024-03-20 08:25] VITALS: BP 137/75; PULSE 96; RESP 20; TEMP 36.8; O2SAT 97; BMI 31.8
--- NOTE | 2024-03-20 08:42 | PC.NURSE ---
NA to name at 08:42
[2024-03-20 08:54] VITALS: BP 126/74; PULSE 92; RESP 16; TEMP 37.1; O2SAT 95
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
[2024-03-20 12:56] VITALS: BP 142/85; PULSE 89; RESP 18; TEMP 36.6; O2SAT 98
[2024-03-20 13:09] VITALS: BP 142/85; PULSE 89; RESP 18; TEMP 36.6; O2SAT 98
== END 2024-03-20 13:10 | disposition home or self-care (01) ==
PROVIDERS: Emergency Provider Emergency Medicine; PCP Registered Nurse
DX: S46.912A Strain of unspecified muscle, fascia and tendon at shoulder and upper arm level, left arm, initial encounter (principal); K42.9 Umbilical hernia without obstruction or gangrene; R10.33 Periumbilical pain; M25.512 Pain in left shoulder; I25.10 Atherosclerotic heart disease of native coronary artery without angina pectoris; E11.9 Type 2 diabetes mellitus without complications; F17.200 Nicotine dependence, unspecified, uncomplicated; V43.52XA Car driver injured in collision with other type car in traffic accident, initial encounter; Y93.89 Activity, other specified; Y92.488 Other paved roadways as the place of occurrence of the external cause; Y99.8 Other external cause status; Z79.4 Long term (current) use of insulin; Z79.899 Other long term (current) drug therapy
CPT/HCPCS: 73030; 74176; 99283; 99284

== ENCOUNTER 2024-03-24 08:21 | Outpatient (AMB) | payer MEDICAID, SELFPAY ==
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
[2024-03-24 08:28] VITALS: BP 119/66; PULSE 86; BMI 32.3
== END 2024-03-24 08:37 | disposition home or self-care (01) ==
PROVIDERS: PCP Registered Nurse; Visit Provider Surgery
DX: K43.2 Incisional hernia without obstruction or gangrene (principal)
CPT/HCPCS: 99214

== ENCOUNTER → 2024-03-24 08:21 | Outpatient (BNVA) | payer MEDICAID, SELFPAY | PROVIDERS: PCP Registered Nurse; Visit Provider Surgery | DX: K43.2 Incisional hernia without obstruction or gangrene (principal) | CPT/HCPCS: 99212 ==

== ENCOUNTER 2024-03-28 08:31 | Outpatient (REF) | payer MEDICAID, SELFPAY ==
[2024-03-28 09:43] LABS: Appearance Urine Clear; Color Urine Yellow; Glucose Urine UA >=1000 mg/dL (Negative); Leukocyte Esterase Urine Negative (Negative); Nitrite Urine Negative (Negative); PH 5.5 (5.0-9.0); Specific Gravity - Urine 1.015 (1.005-1.025); UMIC TRIGGER UA YES; Urine Blood Moderate (2+) (Negative); Urine Ketones Negative (Negative); Urine Protein Negative (Neg-Trace)
[2024-03-28 09:49] LABS: Bacteria Urine None Seen (None Seen); Hyaline Casts Urine 0-2 /LPF (0-2); Squamous Epithelial Cell Urine 0-2 /HPF (0-2); WBC Urine 0-5 /HPF (0-5)
[2024-03-28 10:14] LABS: Anion Gap 15 (12-20); Blood Urea Nitrogen 12 mg/dL (9-16); Carbon Dioxide 22 mmol/L (22-29); Chloride 106 mmol/L (96-108); Cholesterol 187 mg/dL (<200); Estimated Glomerular Filt Rate > 60; HDL Cholesterol 105 mg/dL (>40); LDL Cholesterol Calculated 64 mg/dL (<100); Potassium 3.8 mmol/L (3.3-5.1); Sodium 139 mmol/L (135-145); Triglycerides 90 mg/dL (<150)
== END 2024-03-28 08:32 | disposition home or self-care (01) ==
LOC: HO.LAB 08:31
PROVIDERS: Absent Provider Internal Medicine Hypertension Specialist; PCP Registered Nurse; Visit Provider Internal Medicine Nephrology
DX: R60.9 Edema, unspecified (principal); I10 Essential (primary) hypertension; N18.31 Chronic kidney disease, stage 3a; E78.5 Hyperlipidemia, unspecified
CPT/HCPCS: 36415; 80051; 80061; 81001; 82565; 84520

== ENCOUNTER 2024-04-01 11:30 | Outpatient (AMB) | payer MEDICAID, SELFPAY ==
[2024-04-01 11:33] VITALS: BP 112/64; PULSE 97; O2SAT 90; BMI 32.3
--- NOTE | 2024-04-01 11:33 | HO.NEPHOV_ITS ---
Vital Signs 04/01/24 11:33 Height 5 ft 7 in Weight 206 lb BMI 32.3 BP 112/64 Blood Pressure Location Lt brachial Position Sitting Pulse 97 Pulse Source Pulse Oximeter Pulse Oximetry (%) 90 L Oxygen Delivery Method Room Air Intake Visit Reasons: Swelling/ Conf Eyeletter Required: No Accompanied by: Self / Same As Patient Allergies shrimp Allergy (Severe, Verified 04/01/24 11:37) Difficulty Breathing atorvastatin [ATORVASTATIN] Adverse Reaction (Intermediate, Verified 04/01/24 11:37) elevated LFTs Medication List - Last Reconciled 04/01/24 by Juan Jose Deshpande MD alirocumab (Praluent Pen) 75 mg subcut Q2W cholecalciferol (vitamin D3) 50 mcg PO DAILY cyclobenzaprine 5 mg PO TID PRN empagliflozin (Jardiance) 25 mg PO QAM eplerenone (Inspra) 50 mg PO QAM furosemide 40 mg PO DAILY insulin degludec (Tresiba FlexTouch U-100 insulin) 20 units subcut BEDTIME insulin lispro (Humalog KwikPen (U-100) Insulin) 1 sliding scale dose subcut TIDAC lidocaine 5% 1 patch topical DAILY lisinopril 10 mg PO DAILY rifaximin 550 mg PO TID 2 weeks tadalafil (Cialis) 20 mg PO .PRN PRN 90 days tadalafil (Cialis) 5 mg PO DAILY 90 days thiamine HCl (vitamin B1) 100 mg PO TID vitamin A 1 cap PO QPM zinc sulfate 50 mg PO QPM HPI Comments Details: Steven is a very pleasant man with a h/o arthritis, ACD, CAD, depression, hypertension, fatty liver, fibromyalgia, hyperlipidemia, non alcoholic steatohepatitis, and type 2 diabetes. Essentially normal renal function Here for follow up 01/01/2024. He has been experiencing vague low back pain. Did not take any NSAIDs. Recent serum creatinine was 1.4 which is a new change. His blood pressure has been running low. He is on eplerenone, furosemide, lisinopril. During last visit lisinopril was decreased from 40 mg down to 20 mg due to low blood pressure. Despite this blood pressure remains low 01/28/24 After stopping Lisinopril and LAsix, Creatinine has improved No edema 04/01/24 Doing better NO edema PFSH Medical History Cirrhosis Back pain GERD (gastroesophageal reflux disease) CAD (coronary artery disease) Palpitations Arthritis Fibromyalgia SALGUERO (nonalcoholic steatohepatitis) Fatty liver Depression Hyperlipidemia, unspecified Type 2 diabetes mellitus with unspecified complications Essential hypertension Atherosclerotic cardiovascular disease Surgical History History of abdominal paracentesis Left inguinal hernia (05/04/23) Hx of cholecystectomy History of umbilical hernia repair Gallstone Hx of endoscopy History of colonoscopy History of ankle surgery Family History Father Diabetes Mother No problems noted. Social History Household Members: Spouse Housing: House Are you a primary primary care pediatrician to a significant other at home: No Do you presently have visiting nurse or other home services: No Alcohol intake: unknown Comment: uses cane on occasion due to hip arthritis Patient Tobacco Use Status: Current someday Tobacco user Tobacco use type: Cigar service: No Current occupational status: employed Current occupation: [employer] Physical Exam Vital Signs: Last Vital Signs Pulse 97 04/01/24 11:33 BP 112/64 04/01/24 11:33 Pulse Ox 90 L 04/01/24 11:33 Oxygen Delivery Method Room Air 04/01/24 11:33 BMI result Body Mass Index 32.3 Results Reviewed Nephrology Results: Sodium 139 mmol/L (135-145) 03/28/24 Potassium 3.8 mmol/L (3.3-5.1) 03/28/24 Chloride 106 mmol/L (96-108) 03/28/24 Carbon Dioxide 22 mmol/L (22-29) 03/28/24 BUN 12 mg/dL (9-16) 03/28/24 Creatinine 0.90 mg/dL (0.5-1.4) 03/28/24 Urine Protein Negative mg/dL (Neg-Trace) 03/28/24 Assessment & Plan Assessment & Plan (1) Hematuria: Code(s): R31.9 - Hematuria, unspecified Category: Medical (2) Essential hypertension: Code(s): I10 - Essential (primary) hypertension Category: Medical (3) Proteinuria: Code(s): R80.9 - Proteinuria, unspecified Category: Medical (4) Hyponatremia: Code(s): E87.1 - Hypo-osmolality and hyponatremia Category: Medical (5) CKD stage 3a, GFR 45-59 ml/min: Code(s): N18.31 - Chronic kidney disease, stage 3a Category: Medical Plan Middle aged man with Essentially normal renal function in a setting of DM and SALGUERO No significant proteinuria SPEP revealed elevated beta 2 microglobulin. Serum immunofixation -reordered Microhematuria - painless'; follow-up with Urology BP well controlled Recommend: Keep lisinopril at 10 mg daily Continue with furosemide 40 mg QD Recheck renal panel Maintain BP < 130/80 Avoid Hypotension Watch K while on Eplerenone and ACEi Restrict PO water intake due to hyponatremia Agree with current meds including SGLT-2 inhibitors - Glycosuria due to SGLT-2 inhibitor Orders: Orders Basic Metabolic Panel 4 Months N18.31 - Chronic kidney disease, stage 3a Immunofixation Pnl, Serum 4 Months N18.31 - Chronic kidney disease, stage 3a Coding Level of Care Code Est Pt Level 4 (62243) Diagnoses Hematuria R31.9 Essential hypertension I10 Proteinuria R80.9 Hyponatremia E87.1 CKD stage 3a, GFR 45-59 ml/min N18.31
== END 2024-04-01 11:50 | disposition home or self-care (01) ==
PROVIDERS: PCP Registered Nurse; Visit Provider Internal Medicine Hypertension Specialist
DX: R31.9 Hematuria, unspecified (principal); I12.9 Hypertensive chronic kidney disease with stage 1 through stage 4 chronic kidney disease, or unspecified chronic kidney disease; N18.31 Chronic kidney disease, stage 3a; R80.9 Proteinuria, unspecified; E87.1 Hypo-osmolality and hyponatremia
CPT/HCPCS: 99214

== ENCOUNTER → 2024-04-01 11:30 | Outpatient (BNVA) | payer MEDICAID, SELFPAY | PROVIDERS: PCP Registered Nurse; Visit Provider Internal Medicine Hypertension Specialist | DX: I12.9 Hypertensive chronic kidney disease with stage 1 through stage 4 chronic kidney disease, or unspecified chronic kidney disease (principal); N18.31 Chronic kidney disease, stage 3a; R31.9 Hematuria, unspecified; R80.9 Proteinuria, unspecified; E87.1 Hypo-osmolality and hyponatremia | CPT/HCPCS: 99212 ==

== ENCOUNTER 2024-04-14 11:26 | Outpatient (AMB) | payer OTHER, MEDICAID, SELFPAY ==
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
[2024-04-14 11:31] VITALS: BMI 32.3
== END 2024-04-14 12:06 | disposition home or self-care (01) ==
PROVIDERS: PCP Registered Nurse; Visit Provider Orthopaedic Surgery
DX: M54.2 Cervicalgia (principal); M25.511 Pain in right shoulder; R20.0 Anesthesia of skin; Z04.3 Encounter for examination and observation following other accident
CPT/HCPCS: 99214

== ENCOUNTER → 2024-04-14 11:26 | Outpatient (BNVA) | payer MEDICAID, SELFPAY | PROVIDERS: PCP Registered Nurse; Visit Provider Orthopaedic Surgery ==

== ENCOUNTER 2024-04-23 13:58 | Outpatient (AMB) | payer MEDICAID, SELFPAY ==
--- NOTE | 2024-04-23 14:12 | MHC.OFFVIS ---
Intake Visit Reasons: OV- B/L hand EMG review Intake Note: Steven is a 58 year old right hand dominant male who presents today for an EMG review of his bilateral hands. EMG was done on 03/14/2024. Allergies shrimp Allergy (Severe, Verified 04/23/24 14:12) Difficulty Breathing atorvastatin [ATORVASTATIN] Adverse Reaction (Intermediate, Verified 04/23/24 14:12) elevated LFTs HPI HPI OV- B/L hand EMG review: Details: Patient is a 58-year-old male who presents for bilateral hand EMG review due to intermittent but daily numbness and tingling in both hands. Today, the patient reports that his symptoms are consistent with the symptoms at previous evaluation, that is intermittent but daily, and worse at night. The patient reports that he would like to explore any potential surgical intervention available to him. No other acute complaints or concerns at this time. [facility] Medical History Cirrhosis Back pain GERD (gastroesophageal reflux disease) CAD (coronary artery disease) Palpitations Arthritis Fibromyalgia SALGUERO (nonalcoholic steatohepatitis) Fatty liver Depression Hyperlipidemia, unspecified Type 2 diabetes mellitus with unspecified complications Essential hypertension Atherosclerotic cardiovascular disease Surgical History History of abdominal paracentesis Left inguinal hernia (05/04/23) Hx of cholecystectomy History of umbilical hernia repair Gallstone Hx of endoscopy History of colonoscopy History of ankle surgery Family History Father Diabetes Mother No problems noted. Social History Household Members: Spouse Housing: House Are you a primary team primary care physician to a significant other at home: No Do you presently have visiting nurse or other home services: No Alcohol intake: unknown Comment: uses cane on occasion due to hip arthritis Patient Tobacco Use Status: Current someday Tobacco user Tobacco use type: Cigar service: No Current occupational status: employed Current occupation: [employer] Review of Systems Const All systems reviewed & are unremarkable except as noted in HPI and below Physical Exam Extrem Other: Patient is alert, oriented, and in no acute distress. Neuro: Median, ulnar, radial nerves motor and sensory intact and sensation is normal to the tips of all digits. Vascular: Cap refill brisk Pain: Patient reports no pain to palpation at this time [id number] testing painless No tenderness to palpation of the A1 izzy of the left ring finger ROM: Range of motion of bilateral hands full and intact No visible or palpable locking and catching of any digit of the hand bilaterally Skin: No lacerations or abrasions. General: No ecchymosis, erythema, or evidence of infection. Negative Tinel's test at the wrist bilaterally Psych: Appears grossly normal Affect normal Attitude cooperative Results Reviewed Results Reviewed: IMPRESSION: 1. This is an abnormal study. 2. There is electrodiagnostic evidence for bilateral very mild/borderline median neuropathy at the wrist, could still be consistent with carpal tunnel syndrome. 3. There is no electrodiagnostic evidence for ulnar neuropathy, brachial plexopathy, or cervical radiculopathy. Grace Ordoñez MD, DENIA Assessment & Plan Assessment & Plan (1) Carpal tunnel syndrome, bilateral: Code(s): G56.03 - Carpal tunnel syndrome, bilateral upper limbs Category: Medical Plan 1. Carpal tunnel syndrome, left Symptoms intermittent, but daily, worse at night I educated the patient about the condition. I discussed both operative and nonoperative treatment options. The patient would like to proceed with surgery. Patient thinks he remembers that his last A1c was below 8, but we will need confirmation of this from his primary care provider prior to his surgery date to be able to proceed with surgery, otherwise his surgery will be canceled. Patient is also advised that if his last A1c was above 8, his surgery will need to be postponed until his A1c is at an acceptable level The risks and benefits of operative treatment were discussed with the patient and the patient wishes to proceed with surgery. These risks include, but are not limited to, risk of damage to blood vessels, nerves, tendons, infection, recurrence, incomplete relief of preoperative symptoms, persistent pain, possible need for further surgery, and the risks associated with regional blocks and/or anesthesia. Plan is to take the patient to the operating room at some point in the next few weeks for the following procedures: 1. Left carpal tunnel release under local anesthesia All of the preoperative paperwork including the consent was discussed today. All of the patient's questions were answered in the clinic today. The patient understands that they will be in contact with our assembler surgical garment to discuss scheduling their procedure. Patient reports diabetes, and takes Jardiance. Patient was advised the Jardiance should be discontinued at least 3 days prior to surgery. We will call the patient's primary care provider to get the last A1c and assess if they are still a candidate for surgery. Denies blood thinners, asthma, heart issues, lung issues, kidney issues, or current smoking. 2. Carpal tunnel syndrome, right Symptoms intermittent, but daily, worse at night Patient would like to proceed with operative intervention in the left side 1st, as he finds this side more bothersome Patient is informed that he can sign of the right side if he is recovering well in his postoperative visit for the left Patient understands this and is amenable to this plan Patient will follow-up as needed with any acute concerns Coding Level of Care Code Est Pt Level 4 (35255) Diagnoses Carpal tunnel syndrome, bilateral G56.03
== END 2024-04-23 14:49 | disposition home or self-care (01) ==
PROVIDERS: PCP Registered Nurse
DX: G56.03 Carpal tunnel syndrome, bilateral upper limbs (principal); E11.9 Type 2 diabetes mellitus without complications
CPT/HCPCS: 99214

== ENCOUNTER → 2024-04-23 13:58 | Outpatient (BNVA) | payer MEDICAID, SELFPAY | PROVIDERS: PCP Registered Nurse | DX: G56.03 Carpal tunnel syndrome, bilateral upper limbs (principal) | CPT/HCPCS: 99212 ==

== ENCOUNTER 2024-04-28 11:47 | Outpatient (AMB) | payer MEDICAID, SELFPAY ==
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
== END 2024-04-28 13:01 | disposition home or self-care (01) ==
PROVIDERS: PCP Registered Nurse; Visit Provider Internal Medicine Gastroenterology
DX: K74.60 Unspecified cirrhosis of liver (principal)
CPT/HCPCS: 99214

== ENCOUNTER → 2024-04-28 11:47 | Outpatient (BNVA) | payer MEDICAID, SELFPAY | PROVIDERS: PCP Registered Nurse; Visit Provider Internal Medicine Gastroenterology | DX: K74.60 Unspecified cirrhosis of liver (principal); K75.81 Nonalcoholic steatohepatitis (NASH) | CPT/HCPCS: 99212 ==

== ENCOUNTER 2024-04-29 12:11 | Outpatient (REF) | payer MEDICAID, SELFPAY ==
[2024-04-29 12:41] LABS: MANUAL DIFF FLAG NO
[2024-04-29 13:29] LABS: INTERNATIONAL NORM RATIO 1.1 (0.9-1.1); Prothrombin Time 13.2 SEC (10.9-12.4)
[2024-04-29 13:38] LABS: Basophils Percent Auto 0.5 % (0-2); Eosinophils Absolute Auto 0.2 X10*3/uL (0.0-0.4); Eosinophils Percent Auto 2.1 % (0-4); Hematocrit 42.9 % (42.0-52.0); Hemoglobin 13.5 g/dl (14.0-18.0); Imm Gran Abs Auto 0.03 X10*3/uL (0.00-0.03); Imm Gran Pct Auto 0.4 % (0.0-0.4); Lymphocytes Absolute Auto 1.4 X10*3/uL (1.2-4.9); Lymphocytes Percent Auto 17.2 % (20-40); Mean Corpuscular HGB Conc 31.5 g/dl (31.0-36.0); Mean Corpuscular Hemoglobin 26.1 pg (27.0-33.0); Mean Platelet Volume 9.7 fL (9.4-12.4); Monocytes Absolute Auto 0.9 X10*3/uL (0.1-1.2); Monocytes Percent Auto 11.7 % (2-11); Neutrophils Absolute Auto 5.5 x10*3/uL (2.0-8.3); Neutrophils Percent Auto 68.1 % (45-73); Platelet Count 188 X10*3/uL (160-400); Red Blood Count 5.17 X10*6/uL (4.60-5.80); Red Cell Distribution Width 14.1 % (11.0-16.0)
[2024-04-29 13:38] LABS: Appearance Urine Clear; Color Urine Yellow; Glucose Urine UA >=1000 mg/dL (Negative); Leukocyte Esterase Urine Negative (Negative); Nitrite Urine Negative (Negative); PH 6.5 (5.0-9.0); Specific Gravity - Urine >= 1.030 (1.005-1.025); UMIC TRIGGER UA YES; Urine Blood Large (3+) (Negative); Urine Ketones Negative (Negative); Urine Protein Negative (Neg-Trace)
[2024-04-29 13:44] LABS: Bacteria Urine None Seen (None Seen); Hyaline Casts Urine 0-2 /LPF (0-2); RBC Urine >20 /HPF (0-2); Squamous Epithelial Cell Urine 0-2 /HPF (0-2); WBC Urine 0-5 /HPF (0-5)
[2024-04-29 14:15] LABS: Alanine Aminotransferase 29 U/L (0-40); Albumin Level 4.2 g/dL (3.5-5.0); Alkaline Phosphatase 153 U/L (39-117); Anion Gap 14 (12-20); Aspartate Amino Transferase 49 U/L (5-37); Bilirubin Total 1.2 mg/dL (0.0-1.0); Blood Urea Nitrogen 13 mg/dL (9-16); Calcium 10.6 mg/dL (8.4-10.2); Carbon Dioxide 29 mmol/L (22-29); Chloride 100 mmol/L (96-108); Estimated Glomerular Filt Rate > 60; Glucose Random 203 mg/dL (60-115); Potassium 3.8 mmol/L (3.3-5.1); Sodium 139 mmol/L (135-145); Total Protein 8.1 g/dL (6.5-8.0)
[2024-04-30 10:17] LABS: Hepatitis A Antibody IgG REACTIVE (Nonreactive)
[2024-04-30 10:18] LABS: HBS Num1 > 1000.00 mIU/mL (0-7.99); HBc Num1 0.12 S/CO (0.00-0.79); HBsAGNum1 0.33 S/CO (0.00-0.99); Hepatitis A Antibody IgM 0.35 Index (0-0.79); Hepatitis B Core Antibody Nonreactive (Nonreactive); Hepatitis B Surface Antigen Negative (Negative); ~Hepatitis A Antibody IgM Nonreactive (Nonreactive); ~Hepatitis B Surface Antibody REACTIVE (Nonreactive)
[2024-04-30 11:43] LABS: ~HepC Num2 0.85; ~HepC Num3 0.82; ~Hepatitis C Antibody GRAYZONE (Nonreactive)
== END 2024-04-29 12:12 | disposition home or self-care (01) ==
LOC: HO.LAB 12:11
PROVIDERS: Absent Provider Internal Medicine Gastroenterology; PCP Registered Nurse; Visit Provider Internal Medicine Hypertension Specialist
DX: K74.60 Unspecified cirrhosis of liver (principal); K75.81 Nonalcoholic steatohepatitis (NASH)
CPT/HCPCS: 36415; 80053; 81001; 85025; 85610; 86704; 86706; 86708; 86709; 86803; 87340

== ENCOUNTER 2024-05-02 07:53 | Outpatient (REF) | payer MEDICAID, SELFPAY ==
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
== END 2024-05-02 07:54 | disposition home or self-care (01) ==
LOC: HO.MRI 07:53
PROVIDERS: PCP Registered Nurse; Visit Provider Orthopaedic Surgery
DX: R20.0 Anesthesia of skin (principal); R20.2 Paresthesia of skin
CPT/HCPCS: 72141

== ENCOUNTER 2024-05-23 07:27 | Day surgery (SDC) | payer MEDICAID, SELFPAY ==
[2024-05-06 14:17] VITALS: BMI 30.9
--- NOTE | 2024-05-07 12:18 | P.CONAN_ITS ---
Documented by User: Maame Ames NP 05/07/24 12:26 HPI - Anesthesia Eval Consult details Narrative: 59yo M for Repair Hernia Incisional Umbilical Reducible with mesh Cirrhosis: GI optimized... office visit Now compensated without ascites or HE Last paracentesis 04/2023 with 8.5L removed. Rec's careful post- op f/u d/t risk of reaccumulation of ascites. CAD: Cardiac optimized CKD/HTN: Nephro optimized Anesthesia Pre-Procedure Meds Is the patient on any of the following meds?: SGLT2 Inhib PMFSH Active Problems Active Problems: All Active Problems Carpal tunnel syndrome, bilateral (Acute) Numbness and tingling in left arm (Acute) Incisional hernia without obstruction or gangrene (Acute) Numbness and tingling in both hands (Acute) CKD stage 3a, GFR 45-59 ml/min (Acute) Edema (Acute) Postop check (Acute) MALKA (acute kidney injury) (Acute) Hematuria (Acute) Inguinodynia, left (Acute) Status post hernia repair (Acute) Hyponatremia (Acute) Proteinuria (Acute) Non-rheumatic aortic stenosis (Acute) Microscopic hematuria (Acute) Lower urinary tract symptoms (Acute) Malnutrition (Acute) Ascites (Acute) Preop cardiovascular exam (Acute) Chest discomfort (Acute) Murmur, cardiac (Acute) Umbilical hernia (Acute) Abdominal pain (Acute) Greater trochanteric bursitis (Acute) Alcohol use (Acute) Biliary acute pancreatitis (Acute) Bladder outlet obstruction (Acute) Erectile dysfunction associated with type 2 diabetes mellitus (Acute) Liver lesion (Acute) Essential hypertension (Acute) RUQ pain (Acute) Nonalcoholic steatohepatitis (SALGUERO) (Acute) Early satiety (Acute) Palpitations (Acute) Cirrhosis (Acute) Hyperlipidemia, unspecified (Acute) Left inguinal hernia (Acute 05/04/23) Gallstone (Acute) Type 2 diabetes mellitus with unspecified complications (Acute) Atherosclerotic cardiovascular disease (Acute) Past Medical History Medical History (Updated 05/06/24 @ 13:57 by Shamika Faustin RN) Diabetes Back pain GERD (gastroesophageal reflux disease) Cirrhosis CAD (coronary artery disease) Palpitations Arthritis Fibromyalgia SALGUERO (nonalcoholic steatohepatitis) Fatty liver Depression Hyperlipidemia, unspecified Type 2 diabetes mellitus with unspecified complications Essential hypertension Atherosclerotic cardiovascular disease Family History Family History Father Diabetes Mother No problems noted. Family history of problems with anesthesia: No Surgical History Surgical History Left inguinal hernia (05/04/23) History of abdominal paracentesis Hx of cholecystectomy History of umbilical hernia repair Gallstone Hx of endoscopy History of colonoscopy History of ankle surgery History of Problems with Anesthesia: No Social History Social History Household Members: Spouse Housing: House Are you a primary rn critical care to a significant other at home: No Do you presently have visiting nurse or other home services: No Alcohol intake: unknown Comment: uses cane on occasion due to hip arthritis Patient Tobacco Use Status: Current someday Tobacco user Tobacco use type: Cigar Use of substances other than those prescribed or required for medical reasons: No Have you been hit, kicked, punched, or otherwise hurt by someone within the past year? If so, by whom?: No Are you DNR?: No Advance Directives: No Advance Directives Information Provided: Yes Advance Directives on File: No Recently lost weight without trying: No How much weight loss: 2-13 pounds Eating poorly because of decreased appetite: No Nutrition screen score: 1 Nutrition Risks: No Nutritional Risk Poor oral hygiene: Yes (missing teeth) service: No Current occupational status: employed Current occupation: [employer] Meds Allergies Allergy/AdvReac Type Severity Reaction Status Date / Time shrimp Allergy Severe Difficulty Verified 05/23/24 07:40 Breathing atorvastatin [ATORVASTATIN] AdvReac Intermediate elevated Verified 05/23/24 07:40 LFTs Home Medications ?Medication ?Instructions ?Recorded ?Confirmed ?Last Taken ?Type insulin degludec 100 unit/mL (3 20 unit subcut BEDTIME 05/26/20 05/23/24 04/17/23 History mL) subcutaneous pen (Tresiba FlexTouch U-100 insulin) insulin lispro 100 unit/mL 1 sliding scale dose subcut TIDAC 05/26/20 05/23/24 04/18/23 History subcutaneous pen (Humalog KwikPen (U-100) Insulin) cholecalciferol (vitamin D3) 50 50 mcg PO DAILY 01/01/23 05/23/24 04/18/23 History mcg (2,000 unit) tablet empagliflozin 25 mg tablet 25 mg PO QAM 09/14/23 05/23/24 Unknown History (Jardiance) eplerenone 50 mg tablet (Inspra) 50 mg PO QAM 09/14/23 05/23/24 Unknown History blood sugar diagnostic (FreeStyle #10 ea 04/28/24 05/23/24 Unknown History Lite Strips) flash glucose sensor (FreeStyle #1 ea 04/28/24 05/23/24 Unknown History Bill 2 Sensor kit) lancets 33 gauge (TRUEplus Lancets) #100 ea 04/28/24 05/23/24 Unknown History pen needle, diabetic 31 gauge x #1,200 ea 04/28/24 05/23/24 Unknown History 3/ (Sure Comfort Pen Needle) aspirin 81 mg tablet,delayed 81 mg PO DAILY 05/06/24 05/23/24 Unknown History release Exam Height,Weight and Vital Signs: Height 5 ft 8 in Weight 92.079 kg Pertinent Lab Results Pertinent Lab Results: Laboratory Tests 04/29/24 12:37 WBC 8.0 Hgb 13.5 L Hct 42.9 Plt Count 188 PT 13.2 H INR 1.1 Sodium 139 Potassium 3.8 Chloride 100 Carbon Dioxide 29 Anion Gap 14 BUN 13 Creatinine 1.09 Calcium 10.6 H D Total Bilirubin 1.2 H AST 49 H ALT 29 Alkaline Phosphatase 153 H Total Protein 8.1 H Albumin 4.2 Narrative Narrative: EKG 01/2024 NSR @ 84 ECHO 2022 Conclusions: - 1. Normal LV systolic function with LVEF of 55-60% with impaired relaxation filling pattern 2. Mildly dilated left atrium 3. Mild aortic stenosis 4. Upper limits of normal ascending aortic size 5. No pericardial effusion Exercise Stress 2022 Protocol: LAMONT Max HR: 160 BPM 98% of Pred: 163 BPM Max BP: 182/070 mmHG Max Work Load: 9.2 METS Exercise stress test exercise 7 min 27 sec of Lamont protocol achieving 98% MPHR, without anginal symptoms, without arrhythmias, with normotensive response to exercise, without EKG changes. Test reviewed with Dr. Sharpe. CT abdomen pelvis wo IV con 2023 IMPRESSION: 1. Small periumbilical hernia as described above. 2. Cirrhotic liver with recanalization of a large umbilical vein. 3. Other incidental findings as described above. Assessment and Plan Assessment Anesthesia Assessment: Chart Reviewed Final Anesthetic Review Family History of Problems with Anesthesia: No History of Problems with Anesthesia: No Documented by User: Dorita Ambrose MD 05/23/24 08:39 [facility] Past Medical History Medical History (Updated 05/06/24 @ 13:57 by Shamika Faustin RN) Diabetes Back pain GERD (gastroesophageal reflux disease) Cirrhosis CAD (coronary artery disease) Palpitations Arthritis Fibromyalgia SALGUERO (nonalcoholic steatohepatitis) Fatty liver Depression Hyperlipidemia, unspecified Type 2 diabetes mellitus with unspecified complications Essential hypertension Atherosclerotic cardiovascular disease Family History Family History Father Diabetes Mother No problems noted. Surgical History Surgical History Left inguinal hernia (05/04/23) History of abdominal paracentesis Hx of cholecystectomy History of umbilical hernia repair Gallstone Hx of endoscopy History of colonoscopy History of ankle surgery Social History Social History Household Members: Spouse Housing: House Are you a primary rn critical care to a significant other at home: No Do you presently have visiting nurse or other home services: No Alcohol intake: unknown Comment: uses cane on occasion due to hip arthritis Patient Tobacco Use Status: Current someday Tobacco user Tobacco use type: Cigar Use of substances other than those prescribed or required for medical reasons: No Have you been hit, kicked, punched, or otherwise hurt by someone within the past year? If so, by whom?: No Are you DNR?: No Advance Directives: No Advance Directives Information Provided: Yes Advance Directives on File: No Recently lost weight without trying: No How much weight loss: 2-13 pounds Eating poorly because of decreased appetite: No Nutrition screen score: 1 Nutrition Risks: No Nutritional Risk Poor oral hygiene: Yes (missing teeth) service: No Current occupational status: employed Current occupation: [employer] Meds Allergies Allergy/AdvReac Type Severity Reaction Status Date / Time shrimp Allergy Severe Difficulty Verified 05/23/24 07:40 Breathing atorvastatin [ATORVASTATIN] AdvReac Intermediate elevated Verified 05/23/24 07:40 LFTs Home Medications ?Medication ?Instructions ?Recorded ?Confirmed ?Last Taken ?Type insulin degludec 100 unit/mL (3 20 unit subcut BEDTIME 05/26/20 05/23/24 04/17/23 History mL) subcutaneous pen (Tresiba FlexTouch U-100 insulin) insulin lispro 100 unit/mL 1 sliding scale dose subcut TIDAC 05/26/20 05/23/24 04/18/23 History subcutaneous pen (Humalog KwikPen (U-100) Insulin) cholecalciferol (vitamin D3) 50 50 mcg PO DAILY 01/01/23 05/23/24 04/18/23 History mcg (2,000 unit) tablet empagliflozin 25 mg tablet 25 mg PO QAM 09/14/23 05/23/24 Unknown History (Jardiance) eplerenone 50 mg tablet (Inspra) 50 mg PO QAM 09/14/23 05/23/24 Unknown History blood sugar diagnostic (FreeStyle #10 ea 04/28/24 05/23/24 Unknown History Lite Strips) flash glucose sensor (FreeStyle #1 ea 04/28/24 05/23/24 Unknown History Bill 2 Sensor kit) lancets 33 gauge (TRUEplus Lancets) #100 ea 04/28/24 05/23/24 Unknown History pen needle, diabetic 31 gauge x #1,200 ea 04/28/24 05/23/24 Unknown History 3/16 (Sure Comfort Pen Needle) aspirin 81 mg tablet,delayed 81 mg PO DAILY 05/06/24 05/23/24 Unknown History release Exam Airway Mallampati Class: II TM Dist: >3cm Neck ROM: Full Heart: rrr Lungs: cta Assessment and Plan Assessment Anesthesia Assessment: Anesthesia Plan Discussed Final Anesthetic Review NPO: Yes ASA Class: III Final Preanesthetic Review: No Changes in Pt Med Stat, Meds/Allgs Chart Reviewed and Consent Obtained/Reviewed Patient Risk: Intermediate Procedure Risk: Low Anesthetic Plan Anesthetic Plan: GA Disposition: Standard PACU
--- NOTE | 2024-05-22 15:57 | MHC.SHP ---
Pre-Procedural Eval Section A - 24 Hr Update-Section A only Date of Service: 05/23/24 The patient is an INPATIENT: No Changes since office visit: No Cold of Flu in the past 2 weeks, No New Medical Problems, No Changes in Medication and No Patient answered all questions Section B - Complete if H&P > 30 days Chief Complaint: Incisional hernia without obstruction or gangrene Allergies: Allergies Allergy/AdvReac Type Severity Reaction Status Date / Time shrimp Allergy Severe Difficulty Verified 04/28/24 12:07 Breathing atorvastatin [ATORVASTATIN] AdvReac Intermediate elevated Verified 04/28/24 12:07 LFTs Review of Systems Sugical H&P ROS: Negative: Constitution, Cardiovascular, Respiratory, Neurological, Psychiatric, Hem-Onc, Allergic/Immunologic, Gastrointestinal, Genitourinary, Musculoskeletal, Integumentary, Endocrine and Eyes/Ears/Nose/Throat Exam Surgical H&P Exam: Normal: HEENT, Normal: Heart, Normal: Lungs, Normal: Extremities, Normal: Abdomen, Normal: Skin and Normal: Neurological Plan I have reviewed the history and physical and performed a pertinent physical examination on my patient. No changes have occurred unless specified. Time Spent With Patient Time: Total time managing care of this patient today ____ minutes.
[2024-05-23] VITALS (16 sets, daily range): BP systolic 100–114; BP diastolic 56–67; PULSE 69–90; RESP 14–22; TEMP 36.2–37.1; O2SAT 94–98; BMI 31.2
[2024-05-23 07:55] LABS: Glucose, Whole Blood 162 mg/dL (60-115)
[2024-05-23] MEDS: Lactated Ringers 1,000 ML 50 ML IVCONT (08:07)
[2024-05-23] MEDS: fentaNYL citrate/PF 100 MCG/2 ML VIAL 50 MCG IVPUSH ×4 (09:53→10:17)
[2024-05-23] MEDS: oxyCODONE HCl Immed Release 5 MG TABLET PO (10:43)
--- NOTE | 2024-05-23 11:07 | W.PM.OPN ---
Operative Note Operative Note Date of Service: 05/23/24 Narrative: Preoperative diagnosis: [] Umbilical hernia symptomatic Postop diagnosis: [] The same Procedure [] open repair umbilical hernia with Bard mesh Surgeon: [] [employer] Specialist: [] Stella Type of Anesthesia: [] General Indication for surgery: [] Roughly 3 cm reducible umbilical hernia. Incidental finding of a patent umbilical vein which was ligated to facilitate dissection and mesh placement Findings: [] Patient brought to the operating room, placed on operative table supine position, and after an adequate level of general anesthesia was induced, the patient's abdomen was prepped and draped in usual sterile fashion using a curvilinear supraumbilical incision, this carried down through skin, subcutaneous tissue, where hernia sac was identified and circumferentially dissected down the fascia and opened. During dissection, an open/patent umbilical was clamped, cut, and tied using 2-0 Vicryl ties. Fascia was circumferentially cleared. Appropriately sized mesh was placed in the defect and superficial layer of the mesh was circumferentially sutured to the surrounding fascia using interrupted 0 Ethibond suture. At completion of the procedure, mesh was in good position with no gaps or tension. Wound was irrigated, and secured hemostasis. Was closed in the following manner; subcutaneous tissue was reapproximated using interrupted 3-0 Vicryl suture. Skin was closed using interrupted inverted dermal 3-0 Vicryl sutures followed by Steri-Strips and sterile dressings. Wound was infiltrated at the beginning at the end of the case with 0.5% Marcaine/1% lidocaine. Sponge, needle, and instrument counts were reported correct. Patient tolerated the procedure well and emerged from anesthesia stable condition. EBL minimal
== END 2024-05-23 11:20 | disposition home or self-care (01) ==
PROVIDERS: PCP Registered Nurse; Visit Provider Surgery
PROC: (CPT 49591; principal; 2024-05-23 09:00)
DX: K42.9 Umbilical hernia without obstruction or gangrene (principal); K74.60 Unspecified cirrhosis of liver; K75.81 Nonalcoholic steatohepatitis (NASH); K21.9 Gastro-esophageal reflux disease without esophagitis; I10 Essential (primary) hypertension; I25.10 Atherosclerotic heart disease of native coronary artery without angina pectoris; M79.7 Fibromyalgia; E78.5 Hyperlipidemia, unspecified; E11.9 Type 2 diabetes mellitus without complications; Z79.85 Long-term (current) use of injectable non-insulin antidiabetic drugs; Z79.82 Long term (current) use of aspirin; Z79.899 Other long term (current) drug therapy; Z72.0 Tobacco use; Z88.8 Allergy status to other drugs, medicaments and biological substances; Z90.49 Acquired absence of other specified parts of digestive tract; Z98.890 Other specified postprocedural states
CPT/HCPCS: 49591; 82947; 88302; C1781; J0690; J1100; J2003; J2250; J2405; J2704; J2795; J3010

== ENCOUNTER → 2024-05-23 07:27 | Outpatient (BNV) | payer MEDICAID, SELFPAY | PROVIDERS: PCP Registered Nurse; Visit Provider Surgery | DX: K43.2 Incisional hernia without obstruction or gangrene (principal) | CPT/HCPCS: 49593 ==

== ENCOUNTER 2024-05-26 06:06 | Outpatient (REF) | payer MEDICAID, SELFPAY ==
[2024-05-26 07:41] LABS: Appearance Urine Clear; Color Urine Yellow; Glucose Urine UA >=1000 mg/dL (Negative); Leukocyte Esterase Urine Negative (Negative); Nitrite Urine Negative (Negative); PH 6.5 (5.0-9.0); UMIC TRIGGER UA YES; Urine Blood Moderate (2+) (Negative); Urine Ketones Trace mg/dL (Negative); Urine Protein 30 (1+) mg/dL (Neg-Trace)
[2024-05-26 07:46] LABS: Bacteria Urine None Seen (None Seen); Hyaline Casts Urine 0-2 /LPF (0-2); RBC Urine >20 /HPF (0-2); Squamous Epithelial Cell Urine 0-2 /HPF (0-2); WBC Urine 0-5 /HPF (0-5)
== END 2024-05-26 06:07 | disposition home or self-care (01) ==
LOC: HO.LAB 06:06
PROVIDERS: PCP Registered Nurse; Visit Provider Internal Medicine Hypertension Specialist
DX: Z13.89 Encounter for screening for other disorder (principal)
CPT/HCPCS: 81001

== ENCOUNTER 2024-05-27 14:46 | Outpatient (AMB) | payer MEDICAID, SELFPAY ==
[2024-05-27 14:52] VITALS: BP 86/58; PULSE 82; O2SAT 95; BMI 30.7
--- NOTE | 2024-05-27 14:52 | HO.NEPHOV_ITS ---
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 Accompanied by: Self / Same As Patient Allergies shrimp Allergy (Severe, Verified 05/27/24 14:53) Difficulty Breathing atorvastatin [ATORVASTATIN] Adverse Reaction (Intermediate, Verified 05/27/24 14:53) elevated LFTs Medication List - Last Reconciled 05/27/24 by Juan Jose Deshpande MD alirocumab (Praluent Pen) 75 mg subcut Q2W aspirin 81 mg PO DAILY blood sugar diagnostic (FreeStyle Lite Strips) As directed cholecalciferol (vitamin D3) 50 mcg PO DAILY cyclobenzaprine 5 mg PO TID PRN empagliflozin (Jardiance) 25 mg PO QAM eplerenone (Inspra) 50 mg PO QAM flash glucose sensor (FreeStyle Bill 2 Sensor kit) As directed furosemide 40 mg PO DAILY hydrocodone-acetaminophen 5-325 mg 1 tab PO Q4-6H PRN insulin degludec (Tresiba FlexTouch U-100 insulin) 20 units subcut BEDTIME insulin lispro (Humalog KwikPen (U-100) Insulin) 1 sliding scale dose subcut TIDAC lancets (TRUEplus Lancets) As directed lidocaine 5% 1 patch topical DAILY lisinopril 10 mg PO DAILY pen needle, diabetic (Sure Comfort Pen Needle) As directed rifaximin 550 mg PO TID 2 weeks tadalafil (Cialis) 20 mg PO .PRN PRN 90 days tadalafil (Cialis) 5 mg PO DAILY 90 days thiamine HCl (vitamin B1) 100 mg PO TID vitamin A 1 cap PO QPM zinc sulfate 50 mg PO QPM HPI Comments Details: Steven is a very pleasant man with a h/o arthritis, ACD, CAD, depression, hypertension, fatty liver, fibromyalgia, hyperlipidemia, non alcoholic steatohepatitis, and type 2 diabetes. Essentially normal renal function Here for follow up 01/01/2024. He has been experiencing vague low back pain. Did not take any NSAIDs. Recent serum creatinine was 1.4 which is a new change. His blood pressure has been running low. He is on eplerenone, furosemide, lisinopril. During last visit lisinopril was decreased from 40 mg down to 20 mg due to low blood pressure. Despite this blood pressure remains low 01/28/24 After stopping Lisinopril and LAsix, Creatinine has improved No edema 04/01/24 Doing better NO edema 05/27/24. Recently had hernia surgery. Today blood pressure is low. He has no complaints [facility] Medical History Diabetes Back pain GERD (gastroesophageal reflux disease) Cirrhosis CAD (coronary artery disease) Palpitations Arthritis Fibromyalgia SALGUERO (nonalcoholic steatohepatitis) Fatty liver Depression Hyperlipidemia, unspecified Type 2 diabetes mellitus with unspecified complications Essential hypertension Atherosclerotic cardiovascular disease Surgical History Left inguinal hernia (05/04/23) History of abdominal paracentesis Hx of cholecystectomy History of umbilical hernia repair Gallstone Hx of endoscopy History of colonoscopy History of ankle surgery Family History Father Diabetes Mother No problems noted. Social History Household Members: Spouse Housing: House Are you a primary medicare biller to a significant other at home: No Do you presently have visiting nurse or other home services: No Alcohol intake: unknown Comment: pt medicated Patient Tobacco Use Status: Current someday Tobacco user Tobacco use type: Cigar service: No Current occupational status: employed Current occupation: [employer] Physical Exam Vital Signs: Last Vital Signs Pulse 82 05/27/24 14:52 BP 86/58 L 05/27/24 14:52 Pulse Ox 95 05/27/24 14:52 Oxygen Delivery Method Room Air 05/27/24 14:52 BMI result Body Mass Index 30.7 Results Reviewed Nephrology Results: Hgb 13.5 g/dl (14.0-18.0) L 04/29/24 WBC 8.0 X10*3/uL (4.8-10.8) 04/29/24 Plt Count 188 X10*3/uL (160-400) 04/29/24 Sodium 139 mmol/L (135-145) 04/29/24 Potassium 3.8 mmol/L (3.3-5.1) 04/29/24 Chloride 100 mmol/L (96-108) 04/29/24 Carbon Dioxide 29 mmol/L (22-29) 04/29/24 BUN 13 mg/dL (9-16) 04/29/24 Creatinine 1.09 mg/dL (0.5-1.4) 04/29/24 Calcium 10.6 mg/dL (8.4-10.2) H 04/29/24 Urine Protein 30 (1+) mg/dL (Neg-Trace) H 05/26/24 Assessment & Plan Assessment & Plan (1) Hematuria: Code(s): R31.9 - Hematuria, unspecified Category: Medical (2) Essential hypertension: Code(s): I10 - Essential (primary) hypertension Category: Medical (3) Proteinuria: Code(s): R80.9 - Proteinuria, unspecified Category: Medical (4) Hyponatremia: Code(s): E87.1 - Hypo-osmolality and hyponatremia Category: Medical (5) CKD stage 3a, GFR 45-59 ml/min: Code(s): N18.31 - Chronic kidney disease, stage 3a Category: Medical Plan Middle aged man with Essentially normal renal function in a setting of DM and SALGUERO No significant proteinuria SPEP revealed elevated beta 2 microglobulin. Serum immunofixation -reordered Microhematuria - painless'; follow-up with Urology Blood pressure rather low today. Recommend: Hold lisinopril and eplerenone until blood pressure improves Recheck renal panel Maintain BP < 130/80 Avoid Hypotension Restrict PO water intake due to hyponatremia Agree with current meds including SGLT-2 inhibitors - Glycosuria due to SGLT-2 inhibitor Orders: Orders Basic Metabolic Panel 2 Weeks N18.31 - Chronic kidney disease, stage 3a Medications: Discontinued lisinopril Discontinued Reason: Doctor's Order 10 mg PO DAILY 90 tabs 1RF Coding Level of Care Code Est Pt Level 4 (00685) Diagnoses Hematuria R31.9 Essential hypertension I10 Proteinuria R80.9 Hyponatremia E87.1 CKD stage 3a, GFR 45-59 ml/min N18.31
== END 2024-05-27 15:06 | disposition home or self-care (01) ==
PROVIDERS: PCP Registered Nurse; Visit Provider Internal Medicine Hypertension Specialist
DX: R31.9 Hematuria, unspecified (principal); I12.9 Hypertensive chronic kidney disease with stage 1 through stage 4 chronic kidney disease, or unspecified chronic kidney disease; N18.31 Chronic kidney disease, stage 3a; R80.9 Proteinuria, unspecified; E87.1 Hypo-osmolality and hyponatremia
CPT/HCPCS: 99214

== ENCOUNTER → 2024-05-27 14:46 | Outpatient (BNVA) | payer MEDICAID, SELFPAY | PROVIDERS: PCP Registered Nurse; Visit Provider Internal Medicine Hypertension Specialist | DX: I12.9 Hypertensive chronic kidney disease with stage 1 through stage 4 chronic kidney disease, or unspecified chronic kidney disease (principal); N18.31 Chronic kidney disease, stage 3a; R31.9 Hematuria, unspecified; R80.9 Proteinuria, unspecified; E87.1 Hypo-osmolality and hyponatremia | CPT/HCPCS: 99212 ==

== ENCOUNTER 2024-06-03 10:28 | Outpatient (AMB) | payer MEDICAID, SELFPAY ==
--- NOTE | 2024-06-03 10:29 | MHC.OFFVIS ---
Intake Visit Reasons: S/P incisional umbilical hernia w/mesh Intake Note: Patient here s/p incisional umbilical hernia w/mesh. Reports incision healing well. Patient c/o: noticing small lump on rt lower part of incision. Taking tylenol for pain as needed. 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 His incisional discomfort is improving. He is tolerating a diet. Having regular bowel habits. He is increasing his activity level. [facility] Medical History Diabetes Back pain GERD (gastroesophageal reflux disease) Cirrhosis CAD (coronary artery disease) Palpitations Arthritis Fibromyalgia SALGUERO (nonalcoholic steatohepatitis) Fatty liver Depression Hyperlipidemia, unspecified Type 2 diabetes mellitus with unspecified complications Essential hypertension Atherosclerotic cardiovascular disease Surgical History (Updated 06/03/24 @ 10:45 by Michael Glass MD) History of umbilical hernia repair (05/23/24) Left inguinal hernia (05/04/23) History of abdominal paracentesis Hx of cholecystectomy History of umbilical hernia repair Gallstone Hx of endoscopy History of colonoscopy History of ankle surgery Family History Father Diabetes Mother No problems noted. Social History Household Members: Spouse Housing: House Are you a primary care coordination manager to a significant other at home: No Do you presently have visiting nurse or other home services: No Alcohol intake: unknown Comment: pt medicated Patient Tobacco Use Status: Current someday Tobacco user Tobacco use type: Cigar service: No Current occupational status: employed Current occupation: [employer] Physical Exam GI Other: Abdomen is soft. Incision clean dry and intact healing well Assessment & Plan Assessment & Plan (1) Postop check: Code(s): Z09 - Encounter for follow-up examination after completed treatment for conditions other than malignant neoplasm Category: Surgical Plan Patient was been given local wound instructions, no for out of work for a few weeks and will otherwise follow-up p.r.n.. All questions answered. Coding Level of Care Code Global (17002) Diagnoses Postop check Z09
== END 2024-06-03 10:46 | disposition home or self-care (01) ==
PROVIDERS: PCP Registered Nurse; Visit Provider Surgery
DX: Z09 Encounter for follow-up examination after completed treatment for conditions other than malignant neoplasm (principal)
CPT/HCPCS: 99212

== ENCOUNTER → 2024-06-03 10:28 | Outpatient (BNVA) | payer MEDICAID, SELFPAY | PROVIDERS: PCP Registered Nurse; Visit Provider Surgery | DX: Z09 Encounter for follow-up examination after completed treatment for conditions other than malignant neoplasm (principal); Z87.19 Personal history of other diseases of the digestive system; Z98.890 Other specified postprocedural states | CPT/HCPCS: 99212 ==

== ENCOUNTER 2024-06-06 08:15 | Outpatient (REF) | payer MEDICAID, SELFPAY ==
[2024-06-06 09:08] LABS: Appearance Urine Clear; Color Urine Yellow; Glucose Urine UA >=1000 mg/dL (Negative); Leukocyte Esterase Urine Negative (Negative); Nitrite Urine Negative (Negative); PH 6.5 (5.0-9.0); Specific Gravity - Urine 1.025 (1.005-1.025); UMIC TRIGGER UA YES; Urine Blood Moderate (2+) (Negative); Urine Ketones Negative (Negative); Urine Protein 30 (1+) mg/dL (Neg-Trace)
[2024-06-06 09:16] LABS: Bacteria Urine None Seen (None Seen); Hyaline Casts Urine 0-2 /LPF (0-2); RBC Urine >20 /HPF (0-2); Squamous Epithelial Cell Urine 0-2 /HPF (0-2); WBC Urine 0-5 /HPF (0-5)
[2024-06-06 09:32] LABS: Anion Gap 14 (12-20); Blood Urea Nitrogen 13 mg/dL (9-16); Carbon Dioxide 24 mmol/L (22-29); Chloride 104 mmol/L (96-108); Estimated Glomerular Filt Rate > 60; Glucose Random 230 mg/dL (60-115); Potassium 3.6 mmol/L (3.3-5.1); Sodium 138 mmol/L (135-145)
== END 2024-06-06 08:16 | disposition home or self-care (01) ==
LOC: HO.LAB 08:15
PROVIDERS: PCP Registered Nurse; Visit Provider Internal Medicine Hypertension Specialist
DX: N18.31 Chronic kidney disease, stage 3a (principal)
CPT/HCPCS: 36415; 80048; 81001; 81003

== ENCOUNTER 2024-06-09 10:00 | Outpatient (AMB) | payer MEDICAID, SELFPAY ==
[2024-06-09 10:04] VITALS: BP 130/76; PULSE 105; O2SAT 93; BMI 30.4
--- NOTE | 2024-06-09 10:04 | HO.NEPHOV_ITS ---
Vital Signs 06/09/24 10:04 Height 5 ft 8 in Weight 200 lb BMI 30.4 BP 130/76 Blood Pressure Location Rt brachial Position Sitting Pulse 105 H Pulse Source Pulse Oximeter Pulse Oximetry (%) 93 Oxygen Delivery Method Room Air Intake Visit Reasons: CKD/ Conf Deep Well Contractor Required: No Accompanied by: Self / Same As Patient Allergies shrimp Allergy (Severe, Verified 06/09/24 10:06) Difficulty Breathing atorvastatin [ATORVASTATIN] Adverse Reaction (Intermediate, Verified 06/09/24 10:06) elevated LFTs Medication List - Last Reconciled 06/09/24 by Juan Jose Deshpande MD alirocumab (Praluent Pen) 75 mg subcut Q2W aspirin 81 mg PO DAILY blood sugar diagnostic (FreeStyle Lite Strips) As directed cholecalciferol (vitamin D3) 50 mcg PO DAILY cyclobenzaprine 5 mg PO TID PRN empagliflozin (Jardiance) 25 mg PO QAM flash glucose sensor (FreeStyle Bill 2 Sensor kit) As directed furosemide 20 mg PO QPM insulin degludec (Tresiba FlexTouch U-100 insulin) 20 units subcut BEDTIME insulin lispro (Humalog KwikPen (U-100) Insulin) 1 sliding scale dose subcut TIDAC lancets (TRUEplus Lancets) As directed lidocaine 5% 1 patch topical DAILY pen needle, diabetic (Sure Comfort Pen Needle) As directed rifaximin 550 mg PO TID 2 weeks tadalafil (Cialis) 20 mg PO .PRN PRN 90 days tadalafil (Cialis) 5 mg PO DAILY 90 days thiamine HCl (vitamin B1) 100 mg PO TID vitamin A 1 cap PO QPM zinc sulfate 50 mg PO QPM HPI Comments Details: Steven is a very pleasant man with a h/o arthritis, ACD, CAD, depression, hypertension, fatty liver, fibromyalgia, hyperlipidemia, non alcoholic steatohepatitis, and type 2 diabetes. Essentially normal renal function Here for follow up 01/01/2024. He has been experiencing vague low back pain. Did not take any NSAIDs. Recent serum creatinine was 1.4 which is a new change. His blood pressure has been running low. He is on eplerenone, furosemide, lisinopril. During last visit lisinopril was decreased from 40 mg down to 20 mg due to low blood pressure. Despite this blood pressure remains low 7/22/24 After stopping Lisinopril and LAsix, Creatinine has improved;No edema 04/01/24 ;Doing better;NO edema 05/27/24. Recently had hernia surgery. Today blood pressure is low. He has no complaints 06/09/24 Lisinopril on hold due to low BP Blood sugar is low and had a fall yesterday [facility]ACED BY [facility] Medical History (Updated 06/04/24 @ 09:00 by Demetrius Austin MD) Diabetes Back pain GERD (gastroesophageal reflux disease) Cirrhosis CAD (coronary artery disease) Palpitations Arthritis Fibromyalgia SALGUERO (nonalcoholic steatohepatitis) Fatty liver Depression Hyperlipidemia, unspecified Type 2 diabetes mellitus with unspecified complications Essential hypertension Atherosclerotic cardiovascular disease Surgical History History of umbilical hernia repair (05/23/24) Left inguinal hernia (05/04/23) History of abdominal paracentesis Hx of cholecystectomy History of umbilical hernia repair Gallstone Hx of endoscopy History of colonoscopy History of ankle surgery Family History Father Diabetes Mother No problems noted. Social History Household Members: Spouse Housing: House Are you a primary post acute care nurse to a significant other at home: No Do you presently have visiting nurse or other home services: No Alcohol intake: unknown Comment: pt medicated Patient Tobacco Use Status: Current someday Tobacco user Tobacco use type: Cigar service: No Current occupational status: employed Current occupation: [employer] Physical Exam Vital Signs: Last Vital Signs Pulse 105 H 06/09/24 10:04 BP 130/76 06/09/24 10:04 Pulse Ox 93 06/09/24 10:04 Oxygen Delivery Method Room Air 06/09/24 10:04 BMI result Body Mass Index 30.4 Comfortable Neck supple no JVD. Lungs entry equal no rales. Heart S1-S2 heard no gallop or rub. Abdomen soft nontender. Neuro alert awake oriented. No asterixis. Extremities no edema. Results Reviewed Nephrology Results: Hgb 13.5 g/dl (14.0-18.0) L 04/29/24 WBC 8.0 X10*3/uL (4.8-10.8) 04/29/24 Plt Count 188 X10*3/uL (160-400) 04/29/24 Sodium 138 mmol/L (135-145) 06/06/24 Potassium 3.6 mmol/L (3.3-5.1) 06/06/24 Chloride 104 mmol/L (96-108) 06/06/24 Carbon Dioxide 24 mmol/L (22-29) 06/06/24 BUN 13 mg/dL (9-16) 06/06/24 Creatinine 0.98 mg/dL (0.5-1.4) 06/06/24 Calcium 9.0 mg/dL (8.4-10.2) 06/06/24 Urine Protein 30 (1+) mg/dL (Neg-Trace) H 06/06/24 Assessment & Plan Assessment & Plan (1) Hematuria: Code(s): R31.9 - Hematuria, unspecified Category: Medical (2) Essential hypertension: Code(s): I10 - Essential (primary) hypertension Category: Medical (3) Proteinuria: Code(s): R80.9 - Proteinuria, unspecified Category: Medical (4) Hyponatremia: Code(s): E87.1 - Hypo-osmolality and hyponatremia Category: Medical (5) CKD stage 3a, GFR 45-59 ml/min: Code(s): N18.31 - Chronic kidney disease, stage 3a Category: Medical Plan Middle aged man with Essentially normal renal function in a setting of DM and SALGUERO No significant proteinuria SPEP revealed elevated beta 2 microglobulin. Serum immunofixation -reordered Microhematuria - painless'; follow-up with Urology Blood pressure rather low today. Recommend: Continue to Hold lisinopril and eplerenone until blood pressure stabilizes Maintain BP < 130/80 Avoid Hypotension Restrict PO water intake due to hyponatremia Agree with current meds including SGLT-2 inhibitors - Glycosuria due to SGLT-2 inhibitor Need to adjust anti dibetic drugs due to hypoglycemia FS wsa 185 this morning DEfer to PCP Orders: Orders Basic Metabolic Panel 2 Months E87.1 - Hypo-osmolality and hyponatremia, R80.9 - Proteinuria, unspecified Coding Level of Care Code Est Pt Level 4 (45668) Diagnoses Hematuria R31.9 Essential hypertension I10 Proteinuria R80.9 Hyponatremia E87.1 CKD stage 3a, GFR 45-59 ml/min N18.31
== END 2024-06-09 10:18 | disposition home or self-care (01) ==
PROVIDERS: PCP Registered Nurse; Visit Provider Internal Medicine Hypertension Specialist
DX: I12.9 Hypertensive chronic kidney disease with stage 1 through stage 4 chronic kidney disease, or unspecified chronic kidney disease (principal); N18.31 Chronic kidney disease, stage 3a; R80.9 Proteinuria, unspecified; R31.9 Hematuria, unspecified; E87.1 Hypo-osmolality and hyponatremia
CPT/HCPCS: 99214

== ENCOUNTER → 2024-06-09 10:00 | Outpatient (BNVA) | payer MEDICAID, SELFPAY | PROVIDERS: PCP Registered Nurse; Visit Provider Internal Medicine Hypertension Specialist | DX: I12.9 Hypertensive chronic kidney disease with stage 1 through stage 4 chronic kidney disease, or unspecified chronic kidney disease (principal); E11.22 Type 2 diabetes mellitus with diabetic chronic kidney disease; N18.31 Chronic kidney disease, stage 3a; E78.5 Hyperlipidemia, unspecified; M54.50 Low back pain, unspecified; R31.9 Hematuria, unspecified; R80.9 Proteinuria, unspecified; E87.1 Hypo-osmolality and hyponatremia; Z79.899 Other long term (current) drug therapy | CPT/HCPCS: 99212 ==

== ENCOUNTER 2024-07-15 09:18 | Outpatient (RCR) | payer MEDICAID, SELFPAY | END 2024-09-03 07:30 | disposition home or self-care (01) | LOC: HO.PT 09:18 | PROVIDERS: PCP Registered Nurse; Visit Provider Family Medicine | DX: M25.512 Pain in left shoulder (principal); M54.2 Cervicalgia | CPT/HCPCS: 97110; 97162; 97530; 97535 ==

== ENCOUNTER 2024-07-17 09:42 | Emergency (ER) | payer MEDICAID, SELFPAY ==
--- NOTE | ~2024-07-17 | CT_ITS ---
CLINICAL HISTORY: chest pain CT angiography chest with contrast. 3D Postprocessing. Comparison: None Findings: The heart is normal size. RV/LV ratio is normal. The thoracic aorta is normal caliber. No pulmonary artery filling defects. The visualized thyroid and mediastinum are unremarkable. The lungs are clear. The appearance of the liver suggests fatty infiltration or other hepatocellular pathology. There is a segment arterial enhancing 1.0 x 1.6 cm lesion. Correlation with clinical and laboratory findings recommended to determine need, if any, for further evaluation to exclude hepatocellular carcinoma. The upper abdomen is otherwise unremarkable. The bones are intact. IMPRESSION: 1. No pulmonary emboli. 2. Hepatic steatosis with arterial enhancing segment lesion, nonspecific. Correlation with clinical and laboratory findings recommended to determine need, if any, for further evaluation to exclude HCC. This document has been electronically signed by: Jonathan Chawla MD on 07/17/2024 18:38:51
--- NOTE | ~2024-07-17 | XR_ITS ---
EXAMINATION: XR CHEST CLINICAL INFORMATION: pain COMPARISON: None available. TECHNIQUE: 2 views of the chest were obtained. FINDINGS: The lungs are well-expanded and clear of acute process. Heart size and pulmonary vascularity is normal. There is mild spondylosis of dorsal spine but no aggressive lytic or sclerotic process seen. There is mild deformity left lateral eighth rib axial likely old healed fracture. XR/XR chest 2V IMPRESSION: Unremarkable chest exam Electronically signed by: José Miguel Art MD 07/17/2024 11:43 AM EST
--- NOTE | 2024-07-17 09:47 | ECG_ITS ---
Test Reason : CHEST PAIN Blood Pressure : */* mmHG Vent. Rate : 107 BPM Atrial Rate : 107 BPM P-R Int : 158 ms QRS Dur : 76 ms QT Int : 350 ms P-R-T Axes : 24 -2 33 degrees QTcB Int : 467 ms Sinus tachycardia Otherwise normal ECG When compared with ECG of 18-Sep-2022 09:10, No significant change was found Referred By: Generic ED Physician Electronically Signed By: MARCUS LOPES
[2024-07-17 09:57] VITALS: BP 185/106; PULSE 113; RESP 18; TEMP 37.6; O2SAT 95; BMI 30.2
--- NOTE | 2024-07-17 09:57 | ED.CHESTPAIN ---
HPI - Chest Pain General Chief Complaint: Chest Pain Stated Complaint: chest pain Time Seen by Provider: 07/17/24 16:07 Source: patient and RN notes reviewed Mode of arrival: ambulatory Limitations: no limitations History of Present Illness ED Provider: Mono HPI narrative: 59-year-old male with past medical history significant for chronic kidney disease, hypertension presents for evaluation of chest pain Patient reports intermittent chest pain for the last few months. He states that this coincides with when his erecting engineer discontinue his lisinopril. Per the patient his erecting engineer stopped the lisinopril due to chronic kidney disease and did not restart any other antihypertensive medications The patient reports that his blood pressures at home have been approximately 170s over 90s. The patient has tried to follow up with his weight tester but has thus far been unable to do so The patient states that his chest pain waxes and wanes, he currently has no chest pain. He states that he last had chest pain about 30 minutes prior to arrival When he has the chest pain he has associated shortness of breath Denies any history of DVT or PE The patient also reports that he drinks about 4 beers per day every day Related Data Home Medications ?Medication ?Instructions ?Recorded ?Confirmed insulin degludec 100 unit/mL (3 20 unit subcut BEDTIME 05/26/20 06/09/24 mL) subcutaneous pen (Tresiba FlexTouch U-100 insulin) insulin lispro 100 unit/mL 1 sliding scale dose subcut TIDAC 05/26/20 06/09/24 subcutaneous pen (Humalog KwikPen (U-100) Insulin) cholecalciferol (vitamin D3) 50 50 mcg PO DAILY 01/01/23 06/09/24 mcg (2,000 unit) tablet empagliflozin 25 mg tablet 25 mg PO QAM 09/14/23 06/09/24 (Jardiance) blood sugar diagnostic (FreeStyle #10 ea 04/28/24 06/09/24 Lite Strips) flash glucose sensor (FreeStyle #1 ea 04/28/24 06/09/24 Bill 2 Sensor kit) lancets 33 gauge (TRUEplus Lancets) #100 ea 04/28/24 06/09/24 pen needle, diabetic 31 gauge x #1,200 ea 04/28/24 06/09/24/16 (Sure Comfort Pen Needle) aspirin 81 mg tablet,delayed 81 mg PO DAILY 05/06/24 06/09/24 release furosemide 20 mg tablet 20 mg PO QPM 06/09/24 06/09/24 Previous Rx's ?Medication ?Instructions ?Recorded rifaximin 550 mg tablet 550 mg PO TID 2 weeks #42 tabs 09/14/23 tadalafil 20 mg tablet (Cialis) 20 mg PO .PRN PRN sexual activity 12/31/23 90 days #45 tabs tadalafil 5 mg tablet (Cialis) 5 mg PO DAILY 90 days #90 tabs 12/31/23 vitamin A 3,000 mcg (10,000 unit) 1 cap PO QPM #90 caps 02/18/24 capsule cyclobenzaprine 5 mg tablet 5 mg PO TID PRN muscle spasm #10 03/20/24 tabs lidocaine 5 % topical patch 1 patch topical DAILY #15 ea 03/20/24 zinc sulfate 50 mg zinc (220 mg) 50 mg PO QPM #90 caps 04/10/24 capsule alirocumab 75 mg/mL subcutaneous 75 mg subcut Q2W #2 mL 05/07/24 pen injector (Praluent Pen) thiamine HCl (vitamin B1) 100 mg 100 mg PO TID #90 tabs 05/22/24 tablet Allergies Allergy/AdvReac Type Severity Reaction Status Date / Time shrimp Allergy Severe Difficulty Verified 07/17/24 09:59 Breathing atorvastatin [ATORVASTATIN] AdvReac Intermediate elevated Verified 07/17/24 09:59 LFTs Review of Systems Constitutional: Constitutional: Denies body ache(s), Denies chills and Denies headache(s) ENT: Denies headache(s) Cardiovascular: Cardiovascular: Reports chest pain, Reports chest pain at rest and Reports dyspnea Respiratory: Respiratory: Denies cough and Reports dyspnea Gastrointestinal: Gastrointestinal: Denies abdominal pain, Denies nausea and Denies vomiting Neurologic: Denies headache(s) Psychiatric: Psychiatric: Reports anxiety PMFSH Past Medical History Medical History (Updated 07/17/24 @ 19:12 by Oswaldo Villareal) Diabetes Back pain GERD (gastroesophageal reflux disease) Cirrhosis CAD (coronary artery disease) Palpitations Arthritis Fibromyalgia SALGUERO (nonalcoholic steatohepatitis) Fatty liver Depression Hyperlipidemia, unspecified Type 2 diabetes mellitus with unspecified complications Essential hypertension Atherosclerotic cardiovascular disease Surgical History History of umbilical hernia repair (05/23/24) Left inguinal hernia (05/04/23) History of abdominal paracentesis Hx of cholecystectomy History of umbilical hernia repair Gallstone Hx of endoscopy History of colonoscopy History of ankle surgery Family History Family History Father Diabetes Mother No problems noted. Social History Social History Household Members: Spouse Housing: House Are you a primary pet caregiver to a significant other at home: No Do you presently have visiting nurse or other home services: No Alcohol intake: unknown Comment: pt medicated Patient Tobacco Use Status: Current someday Tobacco user Tobacco use type: Cigar Smoked in Last 30 Days: No Use of substances other than those prescribed or required for medical reasons: No Advance Directives: No Advance Directives Information Provided: Yes service: No Current occupational status: employed Current occupation: [employer] Physical Exam Vital Signs: Vital Signs: Last Vital Signs Temp 99.2 F 07/17/24 18:21 Pulse 97 07/17/24 18:21 Resp 14 07/17/24 18:21 BP 166/89 H 07/17/24 18:21 Pulse Ox 95 07/17/24 18:21 O2 Del Method Room Air 07/17/24 18:21 BMI result Body Mass Index 30.2 Const: General: healthy appearing, comfortable, no acute distress, alert and awake Nutritional Appearance: well nourished Orientation/consciousness: patient oriented x3 HEENT: Head: Yes normocephalic and Yes atraumatic Eyes: Eyelids: Yes eyelids normal Conjunctivae: conjunctivae normal Sclerae: sclerae normal Corneas: corneas normal Pupils: Equal, round and reactive pupils present EOM: EOMs intact bilaterally Neck: Neck: Yes full ROM Resp: Effort & Inspection: normal respiratory effort, able to speak in complete sentences, no audible wheezes and not labored Auscultation: clear to auscultation bilaterally Cardio: Rate: regular rate Rhythm: regular rhythm GI: Inspection: No distended Palpation (GI): Soft to palpation, not firm, nontender, no guarding and not rigid Skin: General skin exam: elasticity normal Neuro: General: patient oriented x3 Cranial nerves: Yes Equal, round and reactive pupils present and Yes Bilaterally intact EOM present Cognition (Neuro): normal cognition Course Course Course Narrative: 59 yo male with PMH of CKD, edema, hyponatremia, HTN, HLD, SALGUERO, DM2 - has been off his lisinopril for more than one month. He started with chest pain at rest 2 days ago. L sided chest with headache. He is anxious about his HTN as well. He has nausea and dry cough, no dyspnea. He has been checking his blood pressure at home and it has been high. He is not on any other blood pressure medications. Labs, EKG, CXR this is a RAPID medical screening exam the rest of the history and physical exam is to be done by the main provider. Reevaluation(s) Reevaluation #1: I discussed the patient's CT imaging with him. The patient's CT scan was negative for pulmonary embolism. However there was an incidental finding of a lesion on the liver concerning for hepatocellular carcinoma. Given the patient's alcohol history it is very important to have this patient follow-up and this was expressed to him. He already sees Dr. Garcia per his report and reports that he will be able to follow up with Dr. Garcia and his primary doctor. Time: 19:10 Medications Administered Discontinued Medications Generic Name Dose Route Start Last Admin Trade Name Freq PRN Reason Stop Dose Admin Iohexol 85 ml 07/17/24 18:24 07/17/24 18:24 Iohexol 350 Mg/Ml 100 Ml Infus..Btl IV 07/17/24 18:25 85 ml ONCE ONE Administration Medical Decision Making Medical Decision Making [facility] Narrative: 59-year-old male presents for evaluation of intermittent chest pain. His EKG shows sinus tachycardia but no ischemia. No significant changes when compared to his previous. He is currently asymptomatic. The patient's initial troponin was elevated to 40.7 with a repeat a 44.5. This is essentially flat in the patient ruled out for ACS. The patient is hypertensive which improved without any intervention. He is currently not on any antihypertensive medication. His elevated troponin may be related to his hypertension. However given his intermittent chest pain with dyspnea I ordered a D-dimer which came back at 284 can not with the patient out for PE. A CT angiography will be performed. The patient's renal function is better than his baseline. Differential Diagnosis Differential Diagnoses: The differential diagnosis associated with the presentation includes Chest pain Anxiety ACS PE Costochondritis Bronchitis Admission/Observation Consideration of admission/observation: Escalation of care including admission/observation considered The patient rules out for ACS Lab Data MDM Lab Attestation statement: I reviewed the patient's lab results. No leukocytosis, no significant anemia. Normal platelet count. No significant electrolyte abnormalities. Troponin elevated as above but repeat troponin flat 07/17/24 10:12 07/17/24 10:12 Labs: Lab Results 07/17/24 07/17/24 07/17/24 Range/Units 10:12 13:19 17:20 WBC 7.3 (4.8-10.8) X10*3/uL RBC 5.24 (4.60-5.80) X10*6/uL Hgb 13.8 L (14.0-18.0) g/dl Hct 42.6 (42.0-52.0) % MCV 81.3 (80.0-98.0) fL MCH 26.3 L (27.0-33.0) pg MCHC 32.4 (31.0-36.0) g/dl RDW 14.1 (11.0-16.0) % Plt Count 168 (160-400) X10*3/uL MPV 9.3 L (9.4-12.4) fL Immature Gran % (Auto) 0.3 (0.0-0.4) % Neut % (Auto) 75.6 H (45-73) % Lymph % (Auto) 15.0 L (20-40) % Mchenry % (Auto) 8.2 (2-11) % Eos % (Auto) 0.5 (0-4) % Baso % (Auto) 0.4 (0-2) % Lymph # (Auto) 1.1 L (1.2-4.9) X10*3/uL Mchenry # (Auto) 0.6 (0.1-1.2) X10*3/uL Eos # (Auto) 0.0 (0.0-0.4) X10*3/uL Baso # (Auto) 0.0 (0.0-0.2) X10*3/uL Abs Immat Gran (auto) 0.02 (0.00-0.03) X10*3/uL Absolute Neuts (auto) 5.5 (2.0-8.3) x10*3/uL Absolute Nucleated RBC 0.000 (0.0-0.012) X10*3/uL Nucleated RBC % (auto) 0.0 (0.0-0.2) /100WBC D-Dimer High Sensitivty 284 NG/ML Sodium 141 (135-145) mmol/L Potassium 3.6 (3.3-5.1) mmol/L Chloride 101 (96-108) mmol/L Carbon Dioxide 25 (22-29) mmol/L Anion Gap 19 (12-20) BUN 5 L (9-16) mg/dL Creatinine 0.79 (0.5-1.4) mg/dL Estim Creat Clear Calc 106.3 Estimated GFR > 60 Random Glucose 213 H (60-115) mg/dL Calcium 9.0 (8.4-10.2) mg/dL Magnesium 1.5 L (1.6-2.6) mg/dL Total Bilirubin 1.0 (0.0-1.0) mg/dL Direct Bilirubin 0.5 (0.0-0.5) mg/dL AST 86 H (5-37) U/L ALT 34 (0-40) U/L Alkaline Phosphatase 238 H (39-117) U/L Troponin I High Sens 40.7 H D 44.5 H (<3.5-35.0) ng/L B-Natriuretic Peptide 89 (<100) pg/mL Total Protein 8.0 (6.5-8.0) g/dL Albumin 4.0 (3.5-5.0) g/dL Lipase 52 (8-78) U/L Influenza Type A (PCR) NEGATIVE (Negative) Influenza Type B (PCR) NEGATIVE (Negative) RSV RNA Qual (PCR) NEGATIVE (Negative) SARS-CoV-2 RNA (RT-PCR) NEGATIVE (Negative) Independent Interpretation I performed an independent interpretation of an: EKG (Sinus tachycardia rate of 107 beats minute.) Radiology Impression Discussion of test interpretation with radiology: I have reviewed the radiologist's reading. Radiologist Impression: FINDINGS: The lungs are well-expanded and clear of acute process. Heart size and pulmonary vascularity is normal. There is mild spondylosis of dorsal spine but no aggressive lytic or sclerotic process seen. There is mild deformity left lateral eighth rib axial likely old healed fracture. XR/XR chest 2V IMPRESSION: Unremarkable chest exam Electronically signed by: José Miguel Art MD 07/17/2024 11:43 AM EST Findings: The heart is normal size. RV/LV ratio is normal. The thoracic aorta is normal caliber. No pulmonary artery filling defects. The visualized thyroid and mediastinum are unremarkable. The lungs are clear. The appearance of the liver suggests fatty infiltration or other hepatocellular pathology. There is a segment arterial enhancing 1.0 x 1.6 cm lesion. Correlation with clinical and laboratory findings recommended to determine need, if any, for further evaluation to exclude hepatocellular carcinoma. The upper abdomen is otherwise unremarkable. The bones are intact. IMPRESSION: 1. No pulmonary emboli. 2. Hepatic steatosis with arterial enhancing segment lesion, nonspecific. Correlation with clinical and laboratory findings recommended to determine need, if any, for further evaluation to exclude HCC. Discharge Plan Discharge Clinical Impression: Chest pain, Lesion of liver Patient Disposition: Home, Self-Care Instructions: Chest Pain (ED) Additional Instructions: Your chest pain workup today was reassuring. Your EKG is unchanged. Your kidney function was within normal limits today. Your CT scan did not show any evidence of blood clots There was an incidental finding of a lesion on your liver In his very important to follow this up with your primary doctor as well as GI Return for new or worsening symptoms Prescriptions: No Action vitamin A 3,000 mcg (10,000 unit) capsule 1 cap PO QPM Qty: 90 1RF zinc sulfate 50 mg zinc (220 mg) capsule 50 mg PO QPM Qty: 90 1RF Praluent Pen 75 mg/mL pen injector 75 mg subcut Q2W Qty: 2 3RF Rx Instructions: inject into abdomen, thigh, or upper arm (deltoid muscle); rotate sites thiamine HCl (vitamin B1) 100 mg tablet 100 mg PO TID Qty: 90 3RF lidocaine 5 % adhesive patch,medicated 1 patch topical DAILY Qty: 15 0RF Rx Instructions: leave on most painful area for up to 12 hrs cyclobenzaprine 5 mg tablet 5 mg PO TID PRN (Reason: muscle spasm) Qty: 10 0RF aspirin 81 mg Tablet,Delayed Release (Dr/Ec) 81 mg PO DAILY insulin lispro [Humalog KwikPen Insulin] 100 unit/mL insulin pen 1 sliding scale dose subcut TIDAC Tresiba FlexTouch U-100 100 unit/mL (3 mL) insulin pen 20 unit subcut BEDTIME cholecalciferol (vitamin D3) 50 mcg (2,000 unit) tablet 50 mcg PO DAILY tadalafil [Cialis] 5 mg tablet 5 mg PO DAILY 90 Days Qty: 90 1RF Rx Instructions: [id number] [facility] Member [id number] tadalafil [Cialis] 20 mg tablet 20 mg PO .PRN PRN (Reason: sexual activity) 90 Days Qty: 45 0RF Rx Instructions: administer approximately 30min before sexual activity; do not use more than 1 dose per 24hrs [id number] [facility] Member [id number] Jardiance 25 mg tablet 25 mg PO QAM rifaximin 550 mg tablet 550 mg PO TID 14 Days Qty: 42 0RF (DME) FreeStyle Bill 2 Sensor Kit See Rx Instructions .ROUTE Q2W Qty: 1 Rx Instructions: As directed (DME) lancets [TRUEplus Lancets] 33 gauge misc See Rx Instructions .ROUTE TID Qty: 100 Rx Instructions: As directed (DME) pen needle, diabetic [Sure Comfort Pen Needle] 31 gauge x 3/16 needle See Rx Instructions .ROUTE QID Qty: 1200 Rx Instructions: As directed (DME) FreeStyle Lite Strips Strip See Rx Instructions .ROUTE TID Qty: 10 Rx Instructions: As directed furosemide 20 mg tablet 20 mg PO QPM Referrals: Harry Garcia MD [Physician] - (Liver lesion. Concern for HCC) Print Language: Setswana
[2024-07-17 10:17] LABS: MANUAL DIFF FLAG NO
[2024-07-17 10:20] LABS: Basophils Percent Auto 0.4 % (0-2); Eosinophils Percent Auto 0.5 % (0-4); Hematocrit 42.6 % (42.0-52.0); Hemoglobin 13.8 g/dl (14.0-18.0); Imm Gran Abs Auto 0.02 X10*3/uL (0.00-0.03); Imm Gran Pct Auto 0.3 % (0.0-0.4); Lymphocytes Absolute Auto 1.1 X10*3/uL (1.2-4.9); Mean Corpuscular HGB Conc 32.4 g/dl (31.0-36.0); Mean Corpuscular Hemoglobin 26.3 pg (27.0-33.0); Mean Corpuscular Volume 81.3 fL (80.0-98.0); Mean Platelet Volume 9.3 fL (9.4-12.4); Monocytes Absolute Auto 0.6 X10*3/uL (0.1-1.2); Monocytes Percent Auto 8.2 % (2-11); Neutrophils Absolute Auto 5.5 x10*3/uL (2.0-8.3); Neutrophils Percent Auto 75.6 % (45-73); Platelet Count 168 X10*3/uL (160-400); Red Blood Count 5.24 X10*6/uL (4.60-5.80); Red Cell Distribution Width 14.1 % (11.0-16.0); White Blood Count 7.3 X10*3/uL (4.8-10.8)
[2024-07-17 10:39] LABS: B Type Natriuretic Peptide 89 pg/mL (<100)
[2024-07-17 10:41] LABS: Alanine Aminotransferase 34 U/L (0-40); Anion Gap 19 (12-20); Aspartate Amino Transferase 86 U/L (5-37); Bilirubin Direct 0.5 mg/dL (0.0-0.5); Blood Urea Nitrogen 5 mg/dL (9-16); Carbon Dioxide 25 mmol/L (22-29); Chloride 101 mmol/L (96-108); Creatinine Clr Calc Pharmacy 106.3; Estimated Glomerular Filt Rate > 60; Glucose Random 213 mg/dL (60-115); Magnesium 1.5 mg/dL (1.6-2.6); Potassium 3.6 mmol/L (3.3-5.1); Sodium 141 mmol/L (135-145); Troponin-I High Sensitivity 40.7 ng/L (<3.5-35.0)
[2024-07-17 11:03] LABS: Influenza A PCR NEGATIVE (Negative); Influenza B PCR NEGATIVE (Negative); Resp Syncy Virus RNA Qual PCR NEGATIVE (Negative); SARS COV2 PCR INHOUSE NEGATIVE (Negative)
[2024-07-17 12:26] LABS: Alkaline Phosphatase 238 U/L (39-117)
[2024-07-17 13:49] LABS: Troponin-I High Sensitivity 44.5 ng/L (<3.5-35.0)
[2024-07-17 14:50] VITALS: BP 163/84; PULSE 97; RESP 18; TEMP 36.8; O2SAT 95
[2024-07-17 15:57] VITALS: BP 152/100; PULSE 102; RESP 16; O2SAT 97
[2024-07-17 16:29] VITALS: BP 154/79; PULSE 96; RESP 16; TEMP 37.3; O2SAT 98
[2024-07-17 17:03] LABS: Lipase 52 U/L (8-78)
[2024-07-17 17:36] LABS: D Dimer High Sensitivity 284 NG/ML
[2024-07-17 18:21] VITALS: BP 166/89; PULSE 97; RESP 14; TEMP 37.3; O2SAT 95
[2024-07-17] MEDS: iohexoL 350 MG/ML 100 ML INFUS..BTL 85 ML IV (18:24)
[2024-07-17 19:20] VITALS: BP 166/89; PULSE 97; RESP 14; TEMP 37.3; O2SAT 95
== END 2024-07-17 19:20 | disposition home or self-care (01) ==
PROVIDERS: Emergency Medicine; Physician Assistant; Registered Nurse Emergency; Emergency Provider Emergency Medicine; PCP Registered Nurse
DX: R07.9 Chest pain, unspecified (principal); R00.0 Tachycardia, unspecified; K76.9 Liver disease, unspecified; R06.00 Dyspnea, unspecified; Z03.818 Encounter for observation for suspected exposure to other biological agents ruled out; E11.22 Type 2 diabetes mellitus with diabetic chronic kidney disease; I12.9 Hypertensive chronic kidney disease with stage 1 through stage 4 chronic kidney disease, or unspecified chronic kidney disease; N18.31 Chronic kidney disease, stage 3a; E78.5 Hyperlipidemia, unspecified; F17.200 Nicotine dependence, unspecified, uncomplicated; Z79.4 Long term (current) use of insulin; Z79.82 Long term (current) use of aspirin; Z79.899 Other long term (current) drug therapy
CPT/HCPCS: 0241U; 36415; 71046; 71275; 80048; 80076; 83690; 83735; 83880; 84484; 85025; 85379; 93005; 99284; 99285; Q9967

== ENCOUNTER → 2024-07-17 09:47 | Outpatient (BNV) | payer MEDICAID, SELFPAY | PROVIDERS: PCP Registered Nurse; Visit Provider Internal Medicine | DX: R00.0 Tachycardia, unspecified (principal) | CPT/HCPCS: 93010 ==

== ENCOUNTER → 2024-07-17 10:00 | Outpatient (BNV) | payer MEDICAID, SELFPAY | PROVIDERS: PCP Registered Nurse; Visit Provider Radiology Diagnostic Radiology | DX: K76.0 Fatty (change of) liver, not elsewhere classified (principal); R52 Pain, unspecified | CPT/HCPCS: 71046; 71275 ==

== ENCOUNTER 2024-07-30 14:13 | Outpatient (AMB) | payer MEDICAID, SELFPAY ==
[2024-07-30 14:18] VITALS: BP 110/56; PULSE 66; BMI 30.5
--- NOTE | 2024-07-30 14:18 | A.OFFVIS_ITS ---
Vital Signs 07/30/24 14:18 Height 5 ft 7 in Weight 194 lb 14.218 oz BMI 30.5 BP 110/56 L Blood Pressure Location Rt brachial Position Sitting Pulse 66 Pulse Source Pulse Oximeter Intake Visit Reasons: 6m follow up r/s fr 07/29 w/ HS Intake Note: 6m F/U. Pt seen at [facility] on 07/17.l Corporate Counselor Required: No Accompanied by: Self / Same As Patient Allergies shrimp Allergy (Severe, Verified 07/30/24 15:00) Difficulty Breathing atorvastatin [ATORVASTATIN] Adverse Reaction (Intermediate, Verified 07/30/24 15:00) elevated LFTs Medication List - Last Reconciled 07/30/24 by Mikhail Rowland NP alirocumab (Praluent Pen) 75 mg subcut Q2W aspirin 81 mg PO DAILY blood sugar diagnostic (FreeStyle Lite Strips) As directed cholecalciferol (vitamin D3) 50 mcg PO DAILY cyclobenzaprine 5 mg PO TID PRN empagliflozin (Jardiance) 25 mg PO QAM flash glucose sensor (FreeStyle Bill 2 Sensor kit) As directed furosemide 20 mg PO QPM insulin degludec (Tresiba FlexTouch U-100 insulin) 20 units subcut BEDTIME insulin lispro (Humalog KwikPen (U-100) Insulin) 1 sliding scale dose subcut TIDAC lancets (TRUEplus Lancets) As directed lidocaine 5% 1 patch topical DAILY lisinopril 10 mg PO DAILY metoprolol succinate ER 25 mg PO DAILY pen needle, diabetic (Sure Comfort Pen Needle) As directed rifaximin 550 mg PO TID 2 weeks tadalafil (Cialis) 20 mg PO .PRN PRN 90 days tadalafil (Cialis) 5 mg PO DAILY 90 days thiamine HCl (vitamin B1) 100 mg PO TID vitamin A 1 cap PO QPM zinc sulfate 50 mg PO QPM HPI Comments Details: This is a 59-year-old male patient presenting for a follow-up visit. His medical history includes coronary artery disease, hyperlipidemia, hypertension, diabetes, and cirrhosis. The patient was recently in the ER for chest pain, which he describes as a pressure-like across his chest, occurring both with exertion and at rest, and associated with mild shortness of breath. He also states he gets these symptoms when he is laying down to sleep at night. 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 He reports his blood pressures at home had been in the 170s over 90s. In the ER he had some workup done including chest x-ray that was negative, and a D-dimer level of [address] scan that ruled out pulmonary embolism. There was a mention of a liver lesion, for which he has been monitored by a GI doctor. Aside from the interpreting chest pain and shortness of breath, the patient denies any p alpitations, dizziness, orthopnea, PND, leg edema, presyncope, or syncope. [facility] Medical History Diabetes Back pain GERD (gastroesophageal reflux disease) Cirrhosis CAD (coronary artery disease) Palpitations Arthritis Fibromyalgia SALGUERO (nonalcoholic steatohepatitis) Fatty liver Depression Hyperlipidemia, unspecified Type 2 diabetes mellitus with unspecified complications Essential hypertension Atherosclerotic cardiovascular disease Surgical History History of umbilical hernia repair (05/23/24) Left inguinal hernia (05/04/23) History of abdominal paracentesis Hx of cholecystectomy History of umbilical hernia repair Gallstone Hx of endoscopy History of colonoscopy History of ankle surgery Family History Father Diabetes Mother No problems noted. Social History Household Members: Spouse Housing: House Are you a primary healthcare account manager to a significant other at home: No Do you presently have visiting nurse or other home services: No Alcohol intake: unknown Comment: pt medicated Patient Tobacco Use Status: Current someday Tobacco user Tobacco use type: Cigar service: No Current occupational status: employed Current occupation: [employer] Review [employer] Systems Const Denies chills, Denies fatigue, Denies fever(s), Denies weight gain and Denies weight loss ENT Denies dizziness Card Denies chest pain, Denies leg edema, Denies lightheadedness, Reports palpitations, Reports dyspnea on exertion, Reports orthopnea and Denies other Resp Denies cough and Reports dyspnea on exertion GI Denies hematochezia and Denies change in stool character Musc Denies abnormal gait, Denies muscle weakness, Denies numbness, Denies radiating pain into limb and Denies tingling Neuro Denies abnormal gait, Denies dizziness, Denies numbness and Denies tingling Endo Denies fatigue and Reports palpitations Physical Exam Vital Signs: Last Vital Signs Pulse 66 07/30/24 14:18 BP 110/56 L 07/30/24 14:18 BMI result Body Mass Index 30.5 Const General: cooperative, healthy appearing, comfortable and no acute distress Orientation/consciousness: patient oriented x3 HEENT Head: Yes normal to inspection Neck Neck: Yes normal visual inspection, Yes trachea midline and Yes supple Chest Chest palpation & inspection: normal inspection of the chest Resp Effort & Inspection: normal respiratory effort Auscultation: clear to auscultation bilaterally, no crackles, no rales, no rhonchi and no wheezes Cardio Jugular venous distension: no JVD Palpation: normal PMI Rate: regular rate Rhythm: regular rhythm Heart sounds: S1 normal heart sound present, S2 normal heart sound present, no click, no gallops and no rubs Peripheral pulses: Peripheral pulses 2+ throughout GI Inspection: Yes normal to inspection Palpation (GI): Soft to palpation Auscultation: normal bowel sounds Skin General skin exam: no rashes or lesions noted Neuro General: patient oriented x3 Extrem General: Yes normal to inspection, No no pedal edema and No calf tenderness Psych Appearance: grossly normal Mental Status: mental status grossly normal Speech and movement: Normal speech and movement present Assessment & Plan Assessment & Plan (1) Chest pain: Code(s): R07.9 - Chest pain, unspecified Category: Medical Plan: Patient's chest pain appears atypical in nature. However, due to a mild elevation in troponin during the ER visit, despite it being flat in nature, we will proceed with a myocardial perfusion study to assess for any ischemic changes. (2) Atherosclerotic cardiovascular disease: Code(s): I25.10 - Atherosclerotic heart disease of [place] coronary artery without angina pectoris Category: Medical Plan: 01/18/2020- coronary CT showed mixed plaque in LAD causing 50% narrowing, left circumflex with scattered calcifications- midportion with prominent calcification, can not exclude high-grade stenosis due to vessel relatively small, and mild calcification in the RCA. Continue Praluent therapy. Last LDL at 64. Continue aspirin therapy. Further management depending on the findings on the tests. (3) Non-rheumatic aortic stenosis: Code(s): I35.0 - Nonrheumatic aortic (valve) stenosis Category: Medical Plan: 01/22/2023- echo showed normal EF 55-60% with impaired relaxation filling santosh vesta, mildly dilated AA left atrium, mild aortic stenosis, upper limits of normal ascending aorta size. We will update the echo before his next visit. (4) Type 2 diabetes mellitus with unspecified complications: Comment: IDDM-taking Tresiba & Novolog-glucose usually ~ 150-160 Code(s): E11.8 - Type 2 diabetes mellitus with unspecified complications Category: Medical Plan: On Insulin, Jardiance. Patient states his blood sugars all with over the place ranging from 120s into the 200s. No recent A1c. Emphasized and a heart healthy diet, regular exercise, losing weight, staying compliant with his medication regimen. Ideally his A1c less than 7.0 (5) Hyperlipidemia, unspecified: Code(s): E78.5 - Hyperlipidemia, unspecified Category: Medical Plan: Continue Praluent therapy as patient can not tolerate statins. Ideally he has LDL should be less than 70. We will follow up with the patient in 6 months. In the interim the patient will call us with any concerns. This note was generated using voice recognition software. While every effort has been made to ensure accuracy and proper dry house tender, there may be occasional errors that could affect the content or meaning of the described symptoms. Orders: Orders CA echo transthoracic complete Today R01.1 - Cardiac murmur, unspecified, R06.00 - Dyspnea, unspecified CA stress test Today R07.9 - Chest pain, unspecified NM cardiolite stress test Today R07.9 - Chest pain, unspecified Coding Level of Care Code Est Pt Level 4 (61934) Diagnoses Chest pain R07.9 Atherosclerotic cardiovascular disease I25.10 Non-rheumatic aortic stenosis I35.0 Type 2 diabetes mellitus with unspecified complications E11.8 Hyperlipidemia, unspecified E78.5 Time Spent (min) 31 Comment Time spent in reviewing the chart, test results, assessment, counseling and documentation.
--- OUTSIDE RECORDS SUMMARY | 2024-07-30 16:35 | XMS_ITS | Encounter Summary ---
Author Organization [employer] Address [address] [place] [address] [address] [place] [address] Care Team Providers Care Certified Shorthand Reporter Name Role Phone Flora Santiago CLOTHING MANAGER Primary Care Provider [phone] Sherin Hall RN Unavailable [phone] Juan Jose Deshpande MD Unavailable [phone] Michael Glass MD Unavailable [phone] Demetrius Austin MD Unavailable Harry Garcia MD Unavailable [phone] Jovany Feliciano MD Unavailable [phone] Reason for Referral * Consultation (Routine) - Authorized Specialty Diagnoses / Procedures Referred By Jana t Referred To Contact Pharmacy Diagnoses Type 2 diabetes mellitus with hyperglycemia, with long-term current use of insulin ([facility]) Divya Amos MD [address] [place] [address] Phone: tel: fax: Referral ID Status Reason Start Date Expiration Date Visits Requested Visits Authorized [id number] Authorized Consult and Treat 06/11/2024 06/11/2025 6 6 Encounter Details Date Type Department Care Team (Late st Contact Info) Description 06/11/2024 Orders Only [facility] MED[facility] [address] [place], [place] [phone] Divya Amos MD [address] [place], [place] [phone] Type 2 diabetes mellitus with hyperglycemia, with long-term current use of insulin ([facility]) (Primary Dx) Social History Tobacco Use Types Packs/Day Years Used Date Smoking Tobacco: Never Passive Smoke Exposure: Never Smokeless Tobacco: Never Alcohol Use Standard Drinks/Week Comments Never 0 (1 standard drink = 0.6 oz pur e alcohol) Depression Answer Date Recorded Patient Health Questionnaire-9 Score 0 11/30/2023 Patient Health Questionnaire-9 Score 0 11/30/2023 Last PHQ-9: Questionnaire Data Not on file 0 11/30/2023 Housing Stability Answer Date Recorded What is your housing situation today? I have angelo renato 06/13/[address] you li ve. Do you have problems with any of the following? Mold;Inadequate heat;No or not working smoke detectors;I am not sure 06/13/2024 Food Insecurity Answer Date Recorded Within the past 12 months, y ou worried that your food would run out before you got money to buy more: Sometimes True 2023 Within the past 12 months,th e food you bought just didn't last and you didn't have enough money to get more: Sometimes True 06/13/2024 Transportation Answer Date Recorded In the past 12 months, has l ack of transportation kept you from medical appts, meetings, work or from getting things needed for daily living? No 04/11/2024 Utilities Answer Date Recorded In the past 12 months, has t he electric, gas, oil or water company threatened to shut off services in your home? I am not sure 06/13/2024 Depression Answer Date Recorded Patient Health Questionnaire-2 Score 0 11/30/2023 Internet Access Answer Date Recorded Internet Access Q1 I am not sure 06/13/2024 Internet Access Q2 Not on file 06/13/2024 Sex and Gender Information Value Date Recorded Sex Assigned at Male 05/08/2022 10:16 AM EDT Legal Sex Male 10:16 AM EDT Gender Identity Male 05/08/2022 10:16 AM EDT Sexual Orientation Straight 05/08/2022 10 :16 AM EDT documented as of this encounter Plan of Treatment Upcoming Encounters Date Type Department Care Team (Late st Contact Info) Description 08/07/2024 3:00 PM EST Office Visit [facility] ADULT DENTAL [address] [place], [place] [phone] Angelica Saenz [address] [place] [address] 08/11/2024 11:30 AM EST Office Visit [facility] PEDS [address] [place] [address] Flora Santiago FNP [address] [place], [place] 08/18/2024 9:30 AM EST Medication Management [facility] [address] [place] [address] Kandi Panda PharmD [address] [place], [place] Scheduled Referrals Name Type Priority Associated Diagnoses Orde r Schedule Referral to Pharmacy CDTM Outpatient Referral Routine Type 2 diabetes mellitus with hyperglycemia, with long-term current use of insulin ([facility]) Ordered: 06/11/2024 documented as of this encounter Goals Goal Patient Goal Type Associated Problems Recent Progress Patient-Stated? Author Blood Pressure < 140/90 Blood Pressure 139/82(2023 8:57 AM EST) No Jose Maria Novak Hemoglobin A1c < 7 Result Component 7.6( 9:20 AM EST) No Jose Maria Novak documented as of this encounter Visit Diagnoses Diagnosis Type 2 diabetes mellitus with hyperglycemia, with long-term current use of insulin ([facility])- Primary documented in this encounter Additional Health Concerns Assessment Noted Time PHQ-9 Depression Total Score: 0 11/30/19 11:07 AM EDT documented as of this encounter Care Teams Certified Shorthand Reporter Relationship Specialty Start Date End Date Flora Santiago FNP [address] [place], [place] PCP - General Family Medicine 05/02/21 Sherin Hall, RN [address] [place] [address] Pole Truck Driver Family Medicine 07/30/23 Juan Jose Deshpande MD [address] [place] [address] Nephrology 06/13/24 Mcihael Glass MD [address] [place] [address] General Surgery 06/13/24 Demetrius Austin MD [address] [place] [address] Orthopaedic Surgery 06/13/24 Harry Garcia MD [address] [facility] [place] [address] Gastroenterology 06/13/24 Jovany Feliciano MD [address] [place] [address] Cardiology 06/13/24 documented as of this encounter
--- OUTSIDE RECORDS SUMMARY | 2024-07-30 16:35 | XMS_ITS | Encounter Summary ---
Author Organization [employer] Address [address] [facility] [facility] [address] [place] [address] Care Team Providers Care Inventory Worker Name Role Phone Flora Santiago Primary Care Provider [phone] Sherin Hall RN Unavailable [phone] Juan Jose Deshpande MD Unavailable [phone] Michael Glass MD Unavailable [phone] Demetrius Austin MD Unavailable Harry Garcia MD Unavailable [phone] Jovany Feliciano MD Unavailable Reason for Visit * Reason Comments Med Refill Encounter Details Date Type Department Care Team (Late st Contact Info) Description 07/02/2024 Refill [facility]S [address] [place], [place] [phone] Flora Santiago FNP [address] [place], [place] [phone] Social History Tobacco Use Types Packs/Day Years [...] your housing situation today? I have angelo gross 06/13/[address] you li [...] Description 08/07/2024 3:00 PM EST Office Visit [facility] ADULT DENTAL [address] [place] [address] Angelica Saenz [address] [place] [address] 08/11/2024 11:30 AM EST Office Visit [facility] [address] [place] [address] Flora Santiago FNP [address] [place] [address] 08/18/2024 9:30 AM EST Medication Management [facility] MEDICINE [address] [place] [address] Kandi Panda, Fredrick [address] [place] [address] documented as of this encounter Goals Goal Patient Goal Type Associated Problems Recent Progress Patient-Stated? Author Blood Pressure < 140/90 Blood Pressure 139/82(2023 8:57 AM EST) No Jose Maria Novak Hemoglobin A1c < 7 Result Component 7.6( 9:20 AM EST) No Jose Maria Novak documented as of this encounter Visit Diagnoses Not on filedocumented in this encounter Additional Health Concerns Assessment Noted Time PHQ-9 Depression Total Score: 0 11/30/19 11:07 AM EDT documented as of this encounter Care Teams Inventory Worker Relationship Specialty Start Date End Date Flora Santiago FNP [address] [place] [address] PCP - General Family Medicine 05/02/21 Sherin Hall RN [address] [place] [address] Data Abstractor Family Medicine 07/30/23 Juan Jose Deshpande MD [address] [place] [address] Nephrology 06/13/24 Michael Glass MD [address] [place] [address] [address] [place] [address] General Surgery 06/13/24 Demetrius Austin MD [address] [place] [address] Orthopaedic Surgery 06/13/24 Harry Garcia MD [address] [place] [address] Gastroenterology 06/13/24 Jovany Feliciano MD [address] [address] Cardiology 06/13/24 documented as of this encounter
--- OUTSIDE RECORDS SUMMARY | 2024-07-30 16:35 | XMS_ITS | Clinical Summary ---
Author Organization [employer] Address [address] [place] [address] [address] [place] [address] Care Team Providers Care Machine Feeder Name Role Phone VaneFlora mina CIARRA Primary Care Provider [phone] Sherin Hall RN Unavailable [phone] Juan Jose Deshpande MD Unavailable [phone] Michael Glass MD Unavailable [phone] Demetrius Austin MD Unavailable Harry Garcia MD Unavailable [phone] Jovany Feliciano MD Unavailable Allergies Active Allergy Reactions Criticality Noted Date Comments Atorvastatin High 02/01/2023 Other reaction(s): elevated LFTs Shrimp Extract High 02/01/2023 Other reaction(s): Difficulty Breathing Medications lisinopril 40 MG tablet TAKE 1 TABLET BY MOUTH DAILY. CALL A LA OFICINA PARA ARELI 023 Active beta carotene (vitamin A) 3 MG (29284 UT) capsule Take 10,000 Units by mouth in the morning. Active zinc sulfate (Zincate) 220 (50 Zn) MG capsule Take 50 mg of elemental zinc by mouth in the morning. Active simethicone (Mylicon) 125 MG chewable tablet Chew 125 mg 3 times daily. PRN Active thiamine (Vitamin B-1) 100 MG tablet Take 100 mg by mouth 3 times daily. 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 Active Xifaxan 550 MG tablet TAKE 1 TABLET BY MOUTH THREE TIMES DAILY FOR 2 WEEKS Active Jardiance 25 MG TAKE 1 TABLET BY MOUTH EVERY MORNING 30 tablet 5 024 Active insulin degludec (Tresiba FlexTouch) 100 UNIT/ML injectionIndic ations:Type 2 diabetes mellitus with hyperglycemia, with long-term current use of insulin ([facility]) INJECT 50 UNITS SUBCUTANEOUSLY AT BEDTIME 15 mL 6 024 Active insulin pen needle (Sure Comfort Pen [place]) 31G x 5 mm misc USE DIRECTED FOUR TIMES DAILY 100 each 11 024 Active ketoconazole (NIZOral) 2 % shampooIndicat ions:Tinea capitis APPLY 5-10 ML TOPICALLY TO WET CLEAN HAIR, LATHER, LEAVE ON FOR 3-5 MINUTES, THEN RINSE. USE EVERY 1-2 WEEKS OR TWICE A WEEK NEEDED 120 mL 1 024 Active furosemide (Lasix) 20 MG tablet Take 1 tablet (20 mg) by mouth Once per day. 90 tablet 024 Active Praluent 75 MG/ML injection INJECT 75 MG SUBCUTANEOUSLY EVERY 2 WEEKS. ROTATE INJECTION SITES Active tadalafil (Cialis) 20 MG tablet TAKE 1 TABLET BY MOUTH 30 MINUTES BEFORE SEXUAL ACTIVITY NEEDED. DO NOT USE MORE THAN 1 TABLET DAILY Active glucose blood (FreeStyle Precision Ric Test) test stripIndicatio ns:Type 2 diabetes mellitus with hyperglycemia, unspecified whether chcf insulin use ([facility]) USE DIRECTED TO TEST BLOOD SUGAR THREE TIMES DAILY 100 each 11 024 Active Inspra 50 MG tablet TAKE 1 TABLET BY MOUTH EVERY MORNING 90 tablet 1 024 Active insulin lispro (HumaLOG) 100 UNIT/ML injectionIndic ations:Type 2 diabetes mellitus with hyperglycemia, with long-term current use of insulin (CMS/HCC) Inject 20-25 Units under the skin with breakfast, with lunch, and with evening meal. 15 mL 11 024 Active Continuous Glucose Sensor (FreeStyle Bill 2 Sensor) miscIndication s:Type 2 diabetes mellitus with hyperglycemia, with long-term current use of insulin (CMS/HCC) USE DIRECTED CHANGE EVERY 14 DAYS 2 each 024 Active Diclofenac Sodium 1 % gel APPLY 2 GRAMS TOPICALLY TO AFFECTED AREA(S) TWICE DAILY NEEDED 100 g 2 024 Active Diclofenac Sodium 1 % gel APPLY 2g TOPICALLY TO THE AFFECTED AREA(S) TWICE DAILY NEEDED 100 g 2 024 2023 Discontinued Active Problems Problem Noted Date Diagnosed Date Bilateral carpal tunnel syndrome 06/13/2024 Assessment & Plan (06/13/2024 11:47 AM EST): [place] [facility] [place]. EMG with impression of bilateral very mild/borderline median neuropathy at the wrist, could still be consistent with CTS. Would like to proceed with surgery. Consider right hand release in the future. Degenerative disc disease, cervical 06/13/2024 Overview (06/13/2024): 05/02/24: MRI cervical spine w/o contrast ordered Dr. Austin. 1. Marked degenerative disc disease at C4-C5 and C5-C6 with mild posterior disc protrusions. 2. Marked bilateral C4-C5 and C5-C6 neural foraminal stenosis. 3. Borderline spinal stenosis at C4-C5 and C5-C6. 4. Normal cervical spinal cord. Arthritis of both hands 04/13/2024 Overview (04/13/2024): 09/28/23: XR hands showed mild arthritis of the IP joint of thumb bilateral. Referral to Ortho placed. 02/12/24[place] [facility] [place] PAVAN Cabezas. Eval bilat hand pain, numbness, tingling x 1 year. Referred for EMG and nerve conduction study to test nerves of BUE. Cont to monitor left ring finger to see if locking and catching. Non-recurrent unilateral ing uinal hernia without obstruction or gangrene 04/13/2024 Overview (04/13/2024): Left inguinal hernia repair [place] Fall [address] Glass [place] [facility] Umbilical hernia without obstruction and without gangrene 04/13/2024 Overview (04/13/2024): [place] [facility] [place] - Dr. Glass Consult note in Mar 2024 with plan for surgery small periumbilical hernia Reviewed ED precautions Assessment & Plan (04/13/2024 5:17 PM EDT): Speciality clearance for surgery in process Arthralgia of left temporomandibular joint 02/03 Microhematuria 11/30/2023 Overview (04/13/2024): [place] [facility] [place] - WILL Harris Cytology (2022): benign urothelial cells, benign squamous cells, acute inflammatory cells, occasional RBCs Type 2 diabetes mellitus wit h hyperglycemia, with long-term current use of insulin 02/13/2023 Assessment & Plan (06/13/2024 12:11 PM EST): Lab Results Component Value Date HGBA1C 7.6 (A) 06/13/2024 HGBA1C 7.6 (A) 04/11/2024 HGBA1C 8.7 (A) 11/30/2023 HGBA1C 8.7 (A) 09/07/2023 HGBA1C 8.5 (A) 06/04/2023 HGBA1C 7.1 (H) 09/06/2020 -Completed DM visits with Viral Ragsdale RN -Has been experiencing episodes of hypoglycemia, reviewed strategies to help prevent episodes and tx when occur -Plan: Decrease from Tresiba 50 units at bedtime to 10-12 units Decreased Lispro from 25 units AC to 10 units Cont Jardiance 25mg daily Do NOT use insulin if not eating Call to schedule follow up with [facility] CDTM team Last eye exam: 12/09/2020, due Last foot exam: normal 11/04/21 Statin: No - past adverse rxn to atorvastatin. Following w/ cards - PCSK9i KOBE/ARB: lisinopril 40mg daily -Target FBG 80-130 range, post prandial <180 -ED precautions reviewed Assessment & Plan (04/13/2024 5:25 PM EDT): Lab Results Component Value Date HGBA1C 7.6 (A) 04/11/2024 HGBA1C 8.7 (A) 11/30/2023 HGBA1C 8.7 (A) 09/07/2023 HGBA1C 8.5 (A) 06/04/2023 HGBA1C 7.5 (A) 02/13/2023 HGBA1C 7.1 (H) 09/06/2020 -Completed DM visits with Viral Team RN -Cont Tresiba 50 units at bedtime -Continue with Lispro 25 units before meals -Cont Jardiance 25mg daily Last eye exam: 12/09/2020, due Last foot exam: normal 11/04/21 Statin: No - past adverse rxn to atorvastatin. Following w/ cards - PCSK9i KOBE/ARB: lisinopril 40mg daily -Target FBG 80-130 range, post prandial <180 -ED precautions reviewed Assessment & Plan (11/30/2023 11:47 AM EDT): Lab Results Component Value Date HGBA1C 8.7 (A) 11/30/2023 HGBA1C 8.7 (A) 09/07/2023 HGBA1C 8.5 (A) 06/04/2023 HGBA1C 7.5 (A) 02/13/2023 HGBA1C 7.1 (H) 09/06/2020 -Continue working with MICHELLE Duff in DM visits -Increase Tresiba 50 units QHS by Rule of 2 - For every 2 days with FBG > 130, increase night time dose of Tresiba by 2 units. Teach back method. -Continue with Lispro 25 units before meals Last eye exam: 12/09/2020, due Last foot exam: normal 11/04/21 Statin: ? past adverse rxn to atorvastatin. Following w/ cards KOBE/ARB: lisinopril 40mg daily -Target FBG 80-130 range, post prandial <180 -ED precautions reviewed Assessment & Plan (09/13/2023 12:06 PM EST): Lab Results Component Value Date HGBA1C 8.7 (A) 09/07/2023 -Continue working with MICHELLE Duff in DM visits -Cont Tresiba 50 units QHS -Continue with Lispro 25 units before meals Last eye exam: 12/09/2020, due Last foot exam: normal 11/04/21 Statin: ? past adverse rxn to atorvastatin KOBE/ARB: lisinopril 40mg daily -Target FBG 80-130 range, post prandial <180 -ED precautions reviewed Assessment & Plan (06/23/2023 2:03 PM EST): Lab Results Component Value Date HGBA1C 8.5 (A) 06/04/2023 -A1c approx at goal, but FBG values > 200 -Cont Tresiba 30 units QHS -Continue with Lispro 20 units before meals Last eye exam: 12/09/2020, due Last foot exam: normal 11/04/21 Statin: ? past adverse rxn to atorvastatin KOBE/ARB: lisinopril 40mg daily -Target FBG 80-130 range, post prandial <180 -ED precautions reviewed -Follow up with pharmacy for CGM review Assessment & Plan (03/30/2023 8:51 PM EDT): Lab Results Component Value Date HGBA1C 7.5 (A) 02/13/2023 -A1c approx at goal, but FBG values > 200 -Plan: Increase Tresiba to 20 units QHS -Continue with Lispro 15-16 units before meals Last eye exam: 12/09/2020, due Last foot exam: normal 11/04/21 Statin: ? past adverse rxn to atorvastatin KOBE/ARB: lisinopril 40mg daily -Target FBG 80-130 range, post prandial <180 -Plan to follow up in 2 weeks for RN BG check, sooner PRN -ED precautions reviewed Assessment & Plan (02/14/2023 6:30 AM EDT): - continue current treatment plan per PCP - due to his liver disease, HgbA1C may not reflect his actual glycemic control in the future (CBC still seems wnl) - follow up with PCP Greater trochanteric bursitis 02/13/2023 Alcohol use 02/13/2023 Assessment & Plan (09/01/2023 6:49 PM EST): Still drinking ,states last time had beers 3 weeks ago -offered OBAT referral but refused Assessment & Plan (02/14/2023 6:32 AM EDT): - pt states no excessive consumption - recommended to stop drinking alcohol at this time until he is fully evaluated by GI for ascites Atherosclerotic cardiovascular disease 3 Cirrhosis of liver with ascites (CMS/HCC) 2022 Assessment & Plan (06/13/2024 11:54 AM EST): -[place] [facility] [place] - Dr. Garcia (last consult note 04/28/24) -MELD score 8 -Undergoing paracentesis for ascites PRN -Reviewed basic education and lifestyle interventions important for diagnosis of cirrhosis Medications through GI: Eplerenone 50mg daily DC spironolactone (Jun 2023 d/t gynecomastia) Furosemide 20mg daily Rifaximin Following with GI: screening endoscopy, return precautions paracentesis, HCC screening Q6mo (AFP, abd US, CT triple phase) Assessment & Plan (04/13/2024 5:00 PM EDT): -Following [place] [facility] [place] - Dr. Garcia (last consult note 09/14/23) -MELD score 8 -Undergoing paracentesis for ascites PRN -Reviewed basic education and lifestyle interventions important for diagnosis of cirrhosis Medications through GI: Eplerenone 50mg daily DC spironolactone (Jun 2023 d/t gynecomastia) Furosemide 20mg daily Rifaximin Following with GI: screening endoscopy, return precautions paracentesis, HCC screening Q6mo (AFP, abd US, CT triple phase) Assessment & Plan (11/30/2023 11:37 AM EDT): -Following with [facility] - Dr. Garcia -MELD score 8 -Undergoing paracentesis for ascites PRN -Reviewed basic education and lifestyle interventions important for diagnosis of cirrhosis Medications through GI: Eplerenone 50mg daily DC spironolactone (Jun 2023 d/t gynecomastia) Furosemide 20mg daily Rifaximin Following with GI: screening endoscopy, return precautions paracentesis, HCC screening Q6mo (AFP, abd US) Assessment & Plan (06/23/2023 1:58 PM EST): -Following with [facility] - Dr. Garcia -Undergoing paracentesis for ascites, next currently scheduled Jul 2023 -Reviewed basic education and lifestyle interventions important for diagnosis of cirrhosis Medications through GI: ?? Eplerenone 50mg daily ?? DC spironolactone Jun 2023 d/t gynecomastia) ?? Furosemide 20mg daily Plan to review POC with GI: last screening endoscopy, return precautions paracentesis, HCC screening Q6mo (AFP, abd US) Assessment & Plan (03/30/2023 8:49 PM EDT): -Following [place] [facility] [place] - Dr. Garcia -Reports currently scheduled Q2 weeks for paracentesis -Upcoming paracentesis scheduled week of 04/01/23, with plan for f/u with GI week of 04/08/23 -Reviewed basic education and lifestyle interventions important for diagnosis of cirrhosis Medications through GI: ?? Spironolactone 50mg daily ?? Furosemide 20mg daily Assessment & Plan (02/13/2023 5:57 PM EDT): - followed by Dr. Garcia [facility], last seen in December 2022 - urgent follow-up recommended; we will try calling Biliary acute pancreatitis 09/28/2022 Erosive esophagitis 10/04/2021 Renal stone 09/29/2020 Hypertensive disorder 04/08/2015 Assessment & Plan (06/13/2024 11:57 AM EST): [place] [facility] [place]Dr. Deshpande) & [facility] [place] (Dr. Feliciano) Stress test from 2022. Able to exercise 9.2 mets and reached target HR w/o signs of angina. Echo with LVEF 55-60%. Mild aortic stenosis. Lipids: Zetia, Praluent (PCSK9i) Currently HOLDING lisinopril and eplerenone per Dr. Deshpande due to low BP values. Pt tachycardic on exam today. EKG did not demonstrate afib. Will check BMP for further eval electrolytes. Medications: - Lisinopril 10mg daily - Furosemide 20-40mg daily (dose adjustments primarily through Nephrology d/t hx hyponatremia and edema) Assessment & Plan (04/13/2024 5:14 PM EDT): [place] [facility] [place] [place]Dr. Deshpande) & [facility] [place] (Dr. Feliciano) Stress test from 2022. Able to exercise 9.2 mets and reached target HR w/o signs of angina. Echo with LVEF 55-60%. Mild aortic stenosis. Lipids: Zetia, Praluent (PCSK9i) Medications: - Continues with lisinopril 10mg daily - Cont furosemide 20-40mg daily (dose adjustments primarily through Nephrology d/t hx hyponatremia and edema) Assessment & Plan (11/30/2023 11:49 AM EDT): Following with [facility] [place] - Dr. Feliciano. Stress test from 2022. Able to exercise 9.2 mets and reached target HR w/o signs of angina. Echo with LVEF 55-60%. Mild aortic stenosis. 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 Harris - Cont Cialis 5mg daily and PRN Assessment & Plan (02/14/2023 6:31 AM EDT): - multifactorial - taking tadalafil - follow up with PCP and urologist Gastroesophageal reflux disease 12/08/2013 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 -Abd US 03/14/23:Cirrhotic liver. Doppler evaluation demonstrates a patent portal vein. No evidence of portal vein thrombosis. Evidence of portal hypertension with recanalized umbilical vein and loss of normal respiratory variation. Normal size spleen. Moderate ascites. Today Urine dipstick blood is large rest is neg Thinks last paracentesis was 3 mo ago Pt reports having 1 week of ongoing mesogastric pain described as mild w no associated or GI symptoms. Here normal VS ,denies fever nor chills does reports some increase sweating at night. Abd exam is soft with no alarming findings ,denies confusion Clinically does not appear as SBP but in the differential,also denies constipation ,actually had diarrhea before but now resolved -Abd US referred today STAT -CBC,chem,lipase Ordered today and UA w reflex cx to eval for RBC---if confirmed RBC may need to do CT scan to r/o nephrolithiasis however symptoms not consistent w this at this time. -if again diarrhea would r/o C diff ,but states having norml stools now -siemthicone prn -Alarm signs and symptoms if need to go to ED if pain perisist during the weekends given may need to have dx paracentesis -pt understand plan and recommendations -apt 09/07/2023 w PCP schedule already -so in 1 week -next apt w GI is 09/28/2023 Dental abscess 08/23/2023 09/13/2023 Ascites 02/13/2023 03/30/2023 Assessment & Plan (02/13/2023 5:56 PM EDT): - seen in CT on 02/07/23 - now likely with pleural effusion - attempted to consult with pt's GI, but was unsuccessful; therefore, I took the liberty of ordering US-guided paracentesis - emphasized the importance of calling GI to schedule a sooner appt - reviewed si/sx to seek further medical attention Acute periodontal abscess 12/20/2022 Dental calculus 12/20/2022 09/13/2023 Periodontal disease 12/20/2022 09/13/19 24 Nonalcoholic steatohepatitis (SALGUERO) 07/08/2021 03/30/2023 Encounters Date Type Department Care Team Description 07/21/2024 Telephone [facility] [address] [place] [address] Flora Santiago FNP ED Visit 07/21/2024 Telephone [facility] [address] [place] [address] Flora Santiago FNP ER Follow-up 07/17/2024 Orders Only GENERIC EXTERNAL DATA DEPARTMENT Provider, Generic External Data 07/02/2024 Refill [facility] [address] [place] [address] Flora Santiago FNP 06/16/2024 Telephone [facility] [address] [place] [phone] Flora Santiago FNP 06/13/2024 8:45 AM EST Office Visit [facility] [address] [place] [address] Flora Santiago FNP Type 2 diabetes mellitus with hyperglycemia, with long-term current use of insulin (CMS/HCC) (Primary Dx); Chronic left shoulder pain; Bilateral carpal tunnel syndrome; Cirrhosis of liver with ascites, unspecified hepatic cirrhosis type (CMS/HCC) (CMS/HCC); Primary hypertension 06/13/2024 Telephone [facility] [address] [place] [address] Flora Santiago FNP Lab Orders 06/13/2024 Patient Outreach [facility] [address] [place] [address] Flora Santiago FNP Care Coordination ([facility] outreach for [facility] utilities & housing search-referral completed ) 06/13/2024 Travel 06/12/2024 Telephone [facility] [address] [place] [address] Owen Hughes [place] Chart Prep 06/11/2024 Orders Only [facility] [address] [place] [address] Divya Amos MD Type 2 diabetes mellitus with hyperglycemia, with long-term current use of insulin (CMS/HCC) (Primary Dx) 06/11/2024 Telephone [facility] [address] [place] [address] Divya Amos MD 06/11/2024 Refill [facility] [address] [place] [address] Kenya Herrmann MD Type 2 diabetes mellitus with hyperglycemia, with long-term current use of insulin (CMS/HCC) (Primary Dx) 06/08/2024 Refill [facility] [address] [place] [address] Flora Santiago FNP Type 2 diabetes mellitus with hyperglycemia, with long-term current use of insulin (CMS/HCC) (Primary Dx) 06/06/2024 Orders Only GENERIC EXTERNAL DATA DEPARTMENT Provider, Generic External Data 05/26/2024 Orders Only GENERIC EXTERNAL DATA DEPARTMENT Provider, Generic External Data 05/23/2024 Orders Only GENERIC EXTERNAL DATA DEPARTMENT Provider, Generic External Data 05/22/2024 Refill [facility] [address] [place] [address] Selwyn Gordon MD 05/20/2024 Refill [facility] [address] [place] [address] Flora Santiago FNP Type 2 diabetes mellitus with hyperglycemia, unspecified whether chcf insulin use (CMS/HCC) 04/30/2024 Telephone [facility] [address] [place] [address] Flora Santiago FNP 04/29/2024 Orders Only GENERIC EXTERNAL DATA DEPARTMENT Provider, Generic External Data from Last 3 Months Immunizations Name Administration Dates Next Due Hep A, Adult 08/31/2004,02/29/2004 HepB-CpG 06/21/2023 Influenza Injectable Quadriv alant Preservative Free IIV4 MDCK 03/30/2023 Influenza injectable quadriv alent IIV4 with preservative 04/08/2015 Influenza injectable quadrivalent preservative f ree 08/12/2018,05/03/2017 Influenza, IIV3, injectable 03/30/2014 Pneumococcal Conjugate PCV 20 07/05/2023 Pneumococcal Polysaccharide PPSV23 06/27/2008 TD (adult), 2 Lf tetanus tox oid, preservative free, adsorbed 05/28/2019,07/07/2008 Tdap 08/12/2018 Varicella 01/28/2004 Zoster, Recombinant 06/07/2023,03/30/2023 Social History Tobacco Use Types Packs/Day Years Used Date Smoking Tobacco: Never Passive Smoke Exposure: Never Smokeless Tobacco: Never Tobacco Cessation:Counseling Given: Not Answered Alcohol Use Standard Drinks/Week Comments Never 0 [...] Orientation Straight 05/08/2022 10 :16 AM EDT Last Filed Vital Signs Vital Sign Reading Time Taken Comments Blood Pressure 139/82 06/13/2024 8:57 AM EST Pulse 115 06/13/2024 8:57 AM EST Temperature 37.4 ??C (99.4 ??F) 06/13/2024 8:57 AM ES T Respiratory Rate 18 06/13/2024 8:57 AM EST Oxygen Saturation 98% 06/13/2024 8:57 AM EST Inhaled Oxygen Concentration - - Weight 89.1 kg (196 lb 6 oz) 06/13/2024 8:57 AM EST Height 172.7 cm (5' 8 ) 06/13/2024 8:57 AM EST Body Mass Index 29.86 06/13/2024 8:57 AM EST Plan of Treatment Upcoming Encounters Date Type Department Care Team (Late st Contact Info) Description 08/07/2024 3:00 PM EST Office Visit [facility] [address] [place] [address] Dany Angelica [address] [place] [address] 08/11/2024 11:30 AM EST Office Visit [facility] [address] [place] [address] Flora Santiago, ELECTROLYSIS INVESTIGATOR [address] [place] [address] 08/18/2024 9:30 AM EST Medication Management [facility] [address] [place] [address] Kandi Panda, PharmD [address] [place] [address] Health Maintenance Due Date Last Done Comments CT Colonography 1965 FIT DNA/Cologuard 1965 FIT 1965 FOBT 1965 Sigmoidoscopy 1965 Diabetes: Foot Exam 1975 Eye Exam 1975 Hepatitis B Vaccines (2 of 2 - CpG 2-dose series) 07/19/2023 06/21/2023 Dental Oral Exam 02/15/2024 08/16/2023, 02/2021, 01/24/2019 Dental X-Ray: Bitewings 07/12/2024 07/11/19 24, 12/20/2022, 01/13/2021, Additional history exists Dental Prophylaxis 08/07/2024 02/04/2024, 0 07/11/2023, 12/20/2022, Additional history exists Diabetes: Hemoglobin A1C 09/11/2024 024, 04/11/2024, 11/30/2023, Additional history exists Diabetes: Urine Protein Screening 10/30/2024 10/31/2023, 06/22/2023, 07/18/2021, Additional history exists Depression Screening 11/29/2024 11/30/2023, 11/30/19 Influenza Vaccine (#1) 2025 , 08/12/2018, 05/03/2017, Additional history exists Postponed from 03/09/2024 (Patient Refused) Lipid Panel 03/28/2025 03/28/2024, 06/08, 07/18/2021, Additional history exists Tobacco Screening 04/11/2025 04/11/2024 Alcohol/Substance Use Screening 06/13/2025 06/13/2024 COVID-19 Vaccine ( season) 2025 07/22/2021, 10/30/2020, 10/02/2020 Postponed from 03/09/2024 (Patient Refused) SDOH Screening 06/13/2025 06/13/2024 Colonoscopy 03/17/2026 03/17/2021 Colorectal Cancer Screening 03/17/2026 Dental X-Ray: Full Mouth 08/17/2026 024, 07/11/2023, 01/24/2019 DTaP/Tdap/Td Vaccines (3 - Td or Tdap) 05/28/2029 05/28/2019, 08/12/2018, 07/07/2008 RSV Patients and Patients Aged 60 years or older (1 - 1-dose 75+ series) 2040 Hepatitis A Vaccines Completed 08/31/2004, 02/29/20 HIV Screening Completed 07/18/2021 Zoster Vaccines Completed 06/07/2023, 03/30/2023 Pneumococcal Vaccine: Pediatrics (0 to 5 Years) and At-Risk Patients (6 to 64 Years) Completed 07/05/2023, 06/27/2008 Hepatitis C Screening Completed 04/29/2024 , 07/18/2021, 11/07/2019 HIB Vaccines Aged Out No longer eligi ble based on patient's age to complete this topic HPV Vaccines Aged Out No longer eligi ble based on patient's age to complete this topic IPV Vaccines Aged Out No longer eligi ble based on patient's age to complete this topic Meningococcal Vaccine Aged Out No veda chuy eligible based on patient's age to complete this topic RSV under 20 months Aged Out No longe r eligible based on patient's age to complete this topic Rotavirus Vaccines Aged Out No longer eligible based on patient's age to complete this topic Goals Goal Patient Goal Type Associated Problems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
--- OUTSIDE RECORDS SUMMARY | 2024-07-30 16:35 | XMS_ITS | Encounter Summary ---
Author Organization [employer] Address [address] [facility] 7t [place] [address] Care Team Providers Care Chemical Engineering Intern Name Role Phone Flora Santiago Primary Care Provider [phone] Sherin Hall RN Unavailable [phone] Juan Jose Deshpande MD Unavailable [phone] Michael Glass MD Unavailable [phone] Demetrius Austin MD Unavailable Harry Garcia MD Unavailable [phone] Jovany Feliciano MD Unavailable Encounter Details Date Type Department Care Team (Late st Contact Info) Description 04/30/2024 Telephone [facility] MEDICINE [address] [place] [address] Flora Santiago FNP [address] [place], [place] [phone] Social History Tobacco Use Types Packs/Day Years [...] Description 08/07/2024 3:00 PM EST Office Visit [facility] ADULT DENTAL [address] [place] [address] Dallin Saenzaris [address] [place] [address] 08/11/2024 11:30 AM EST Office Visit [facility] CHC MED & PEDS [address] [place] [address] Flora Santiago FNP [address] [place] [address] 08/18/2024 9:30 AM EST Medication Management [facility] MEDICINE [address] [place] [address] Kandi Panda, PharmD [address] [place] [address] documented as of this encounter Goals Goal [...] documented as of this encounter Care Teams Chemical Engineering Intern Relationship Specialty Start Date End Date Flora Santiago FNP [address] [place] [address] PCP - General Family Medicine 05/02/21 Sherin Hall, RN [address] [place] [address] Delivery Supervisor Family Medicine 07/30/23 Juan Jose Deshpande MD [address] [place] [address] Nephrology 06/13/24 Michael Glass MD [address] [place] [address] [address] [place] [address] General Surgery 06/13/24 Demetrius Austin MD [address] [place] [address] Orthopaedic Surgery 06/13/24 Harry Garcia MD [address] [place] [address] Gastroenterology 06/13/24 Jovany Feliciano MD [address] [address] Cardiology 06/13/24 documented as of this encounter
--- OUTSIDE RECORDS SUMMARY | 2024-07-30 16:35 | XMS_ITS | Encounter Summary ---
Author Organization [employer] Address [address] [facility] [address] [place] [address] Care Team Providers Care Android Developer Name Role Phone Flora Santiago Primary Care Provider Sherin Hall RN Unavailable [phone] Juan Jose Deshpande MD Unavailable [phone] Michael Glass MD Unavailable [phone] Demetrius Austin MD Unavailable Harry Garcia MD Unavailable [phone] Jovany Feliciano MD Unavailable Reason for Visit * Reason Onset Date Comments ER Follow-up 07/21/2024 Encounter Details Date Type Department Care Team ([facility] st Contact Info) Description 07/21/2024 Telephone [facility] CHC MED & PEDS [address] [place], [place] [phone] Flora Santiago FNP [address] [place], [place] [phone] ER Follow-up Social History Tobacco Use Types Packs/Day Years [...] AM EDT documented as of this encounter Miscellaneous Notes * Telephone Encounter - Caridad Celis RN - 07/21/2024 10:25 AM EST Telephone call returned to patient in regards to below message. Appointment scheduled for patient for Future Appointments Date Time Provider Department Center 08/07/2024 3:00 PM Angelica VAZQUEZ DENT [facility] 08/11/2024 11:30 AM CIARRA Josue CHC MED [facility] 08/18/2024 9:30 AM Kandi Panda PharmD MEDICINE [facility] Patient verbalized understanding and denied having any further questions or concerns at this time. Patient to follow up as needed. * Telephone Encounter - Cece Vargas - 07/21/2024 9:51 AM EST Patient calling to report ED visit on : Date: 07/17/24 Hospital: [facility] Seen for: chest pain Symptomatic No *if yes message should go to Triage Patient advised will forward to team nurse for follow up documented in this encounter Plan of Treatment Upcoming Encounters Date Type Department Care Team (Late st Contact Info) Description 08/07/2024 3:00 PM EST Office Visit [facility] ADULT DENTAL [address] [place] [address] Dany, Angelica [address] [place] [address] 08/11/2024 11:30 AM EST Office Visit [facility] CHC MED & PEDS [address] [place] [address] Flora Santiago FNP [address] [place] [address] 08/18/2024 9:30 AM EST Medication Management [facility] MEDICINE [address] [place] [address] Kandi Panda, RobertD [address] [place] [address] documented as of this encounter Goals Goal [...] Time PHQ-9 Depression Total Score: 0 11/30/19 24 11:07 AM EDT documented as of this encounter Care Teams Android Developer Relationship Specialty Start Date End Date Flora Santiago FNP [address] [place] [address] PCP - General Family Medicine 05/02/21 Sherin Hall RN [address] [place] [address] Management Advisor Family Medicine 07/30/23 Juan Jose Deshpande MD [address] [place] [address] Nephrology 06/13/24 Michael Glass MD [address] [place] [address] [address] [place] [address] General Surgery 06/13/24 Demetrius Austin MD [address] [place] [address] Orthopaedic Surgery 06/13/24 Harry Garcia MD [address] [place] [address] Gastroenterology 06/13/24 Jovany Feliciano MD [address] [place] [address] Cardiology 06/13/24 documented as of this encounter
--- OUTSIDE RECORDS SUMMARY | 2024-07-30 16:35 | XMS_ITS | Encounter Summary ---
Author Organization [employer] Address 75 [facility] 7t [place] [address] Care Team Providers Care Sole Tier Name Role Phone Flora Santiago LAUNDRY MANAGER Primary Care Provider [phone] Sherin Hall RN Unavailable [phone] Juan Jose Deshpande MD Unavailable [phone] Michael Glass MD Unavailable [phone] Demetrius Austin MD Unavailable Harry Garcia MD Unavailable [phone] Jovany Feliciano MD Unavailable [phone] Encounter Details Date Type Department Care Team (Late st Contact Info) Description 07/17/2024 Orders Only GENERIC EXTERNAL DATA DEPARTMENT Provider, Generic External Data Social History Tobacco Use Types Packs/Day Years [...] got money to buy more: Sometimes True 12/06/ 2024 Within the past 12 months,th e food [...] Description 08/07/2024 3:00 PM EST Office Visit [facility] ADULT DENTAL [address] [place] [address] Dany, Angelica [address] [place] [address] 08/11/2024 11:30 AM EST Office Visit [facility] CHC MED & PEDS [address] [place] [address] Flora Santiago FNP [address] [place] [address] 08/18/2024 9:30 AM EST Medication Management [facility] MEDICINE [address] [place] [address] Kandi Panda, RobertD [address] [place] [address] documented as of this encounter Goals Goal Patient Goal Type Associated Problems Recent Progress Patient-Stated? Author Blood Pressure < 140/90 Blood Pressure 139/82(2023 8:57 AM EST) No Jose Maria Novak Hemoglobin A1c < 7 Result Component 7.6( 9:20 AM EST) No Jose Maria Novak documented as of this encounter Procedures Procedure Name Priority Date/Time Associated Diagnosis Comments CTA CHEST PE PROTOCAL Routine 07/17/2024 6:38 PM EST D DIMER HIGH SENSITIVITY Routine 07/17/2024 5:20 PM EST HIGH SENSITIVITY TROPONIN I Routine 07/17/2024 1:19 PM EST XR CHEST 2 VIEWS Routine 07/17/2024 10:2 0 AM EST HIGH SENSITIVITY TROPONIN I Routine 07/17/2024 10:12 AM EST SARS COV2/INFLUENZA A/B AND RSV RNA QL NAAT Routine 07/17/2024 10:12 AM EST CBC WITH AUTO DIFFERENTIAL Routine 07/17/2024 10:12 AM EST B TYPE NATRIURETIC PEPTIDE (BNP) Routine 07/17/2024 10:12 AM EST MAGNESIUM Routine 07/17/2024 10:12 AM EST LIPASE Routine 07/17/2024 10:12 AM EST HEPATIC FUNCTION PANEL Routine 07/17/2024 10:12 AM EST BASIC METABOLIC PANEL Routine 07/17/2024 10:12 AM EST documented in this encounter Results * CTA Chest PE Protocal (07/17/2024 6:38 PM EST) Anatomical Region Laterality Modality Body, Chest Computed Tomogra phy 07/17/2024 6:38 PM EST Narrative 07/17/2024 6:41 PM EST ? [facility] ?[address] ?[place] [address] ? CT Scan Report ? Signed with Addenda ? Patient: Stanley,Steven ?MR#: [id number] ?? 2 ? : 1965 ?Acct:[id number] ? Age/Sex: 59 / M ?ADM Date: 07/17/24 ? Loc: HO.ED ? Attending Dr: ? Ordering Physician: Oswaldo Villareal ?? Date of Service: 07/17/24 ?? Procedure(s): CT angio chest PE protocol ?? Accession Number(s): [id number] ? cc: Oswaldo Villareal; Flora Santiago LAUNDRY MANAGER ? Report Number: ?? [id number]: Total DLP = ??293.00 mGy-cm ?ADDENDUM ?? [...] ?? 07/17/2024 18:38:51 ? Dictated By: ?Jonathan Chawla MD ? Signed By: ?<Electronically signed by Jonathan Chawla MD in OV> ?07/17/240 ? DD/ ? TD/TT: 07/17/248 ? Machine Silk Screen Printer: ? Procedure Note Donema, Image - 07/17/[address] [address] [address] Scan Report Signed with Addenda Patient: Robin Stanley#: [id number] 2 : 1965Acct:[id number] Age/Sex: 59 / MADM Date: 07/17/24 Loc: .ED Attending Dr: Ordering Physician: Oswaldo Villareal Date of Service: 07/17/24 Procedure(s): CT angio chest PE protocol Accession Number(s): [id number] cc: Oswaldo Villareal; Flora Santiago [facility] Report Number: [id number]: Total DLP = 293.00 mGy-cm ADDENDUM This [...] signed by Jonathan Chawla MD in OV> 07/17/241839 DD/ 37 TD/TT: 07/17/241837 Machine Silk Screen Printer: [facility] External Provider IMG CT PROCEDURES Edited Result - Final * D Dimer High Sensitivity (07/17/2024 5:20 PM EST) [facility] D Dimer High Sensitivity 284 NG/ML [facility] Comment:D-DIMER HS REFERENCE RANGENote: Our assay [...] Provider LAB BLOOD ORDERAB LES Final Result [facility] [address] [place] [phone] * (ABNORMAL) High Sensitivity Troponin I (07/17/2024 1:19 PM EST) [facility] TROPONIN I HIGH SENSITIVITY 44.5(H) <3.5 - 35.0 ng/L [facility] Comment:The Galeano high sens itivity Troponin-I results should beused in conjunction with other diagnostic information suchas ECG, clinical observations and information, and patientsymptoms to aid in the diagnosis of OH. 07/17/2024 1:19 PM EST 07/17/2024 1:22 PM EST us Generic External Data Provider LAB BLOOD ORDERAB LES Final Result [facility] [address] [place] [address] [phone] * XR Chest 2 Views (07/17/2024 10:20 AM EST) Anatomical Region Laterality Modality Chest Radiographic Kandace ging 07/17/2024 10:2 0 AM EST Narrative 07/17/2024 11:46 AM EST ? [facility] ?[address] ?[place] [address] ?XRay Report ? Signed ? Patient: Stanley,Steven ?MR#: [id number] ?? 2 ? : 1965 ?Acct:[id number] ? Age/Sex: 59 / M ?ADM Date: 07/17/24 ? Loc: HO.ED ? Attending Dr: ? Ordering Physician: Starr Peralta DO ?? Date of Service: 07/17/24 ?? Procedure(s): XR chest 2V ?? Accession Number(s): [id number] ? cc: Starr Peralta DO; Flora Santiago LAUNDRY MANAGER ? EXAMINATION: ?? XR CHEST ? CLINICAL [...] 11:43 AM EST RP ? Dictated By: ?Kaleyn,José Miguel S MD ? Signed By: ?<Electronically signed by José Miguel S Kaelyn, MD in OV> ?07/17/24 1143 ? DD/ 1020 ? TD/TT: 07/17/24 1040 ? Machine Silk Screen Printer: MSM ? Procedure Note Donotuseinterpreter, Image - 07/17/[address] [address] XRay Report Signed Patient: Robin Stanley#: [id number] 2 : 1965Acct:[id number] Age/Sex: 59 / MADM Date: 07/17/24 Loc: HO.ED Attending Dr: Ordering Physician: Starr Peralta DO Date of Service: 07/17/24 Procedure(s): XR chest 2V Accession Number(s): [id number] cc: Starr Peralta DO; Flora Santiago LAUNDRY MANAGER EXAMINATION: XR CHEST CLINICAL INFORMATION: pain COMPARISON: [...] 07/17/24 1143 DD/ 1020 TD/TT: 07/17/24 1040 Machine Silk Screen Printer: MIGUE us [facility] External Provider IMG XR PROCEDURES Final Result * Lipase (07/17/2024 10:12 AM EST) Lipase 52 8 - 78 U/L [facility] 07/17/2024 10:1 2 AM EST 07/17/2024 10:16 AM EST Generic External Data Provider LAB BLOOD ORDERAB LES Final Result [facility] [address] [place] [phone] * SARS-CoV-2 RNA, Influenza A/B, and RSV RNA, Ql NAAT (07/17/2024 10:12 AM EST) Influenza A PCR NEGATIVE Negative [facility] Influenza B PCR NEGATIVE Negative [facility] Resp Syncy Virus RNA Qual PCR NEGATIVE Negative [facility] SARS COV2 PCR NEGATIVE Negative [facility] Comment:All test results mus t [...] use by authorized laboratories.Testing performed on the RARE[employer] GeneXpert utilizingreal-time RT-PCR.All SARS CoV2 and positive influenza A/B results arereported to [facility]. 07/17/2024 10:1 2 AM EST 07/17/2024 10:16 AM EST us Generic External Data Provider LAB MICROBIOLOGY - GENERAL ORDERABLES Final Result Performing Organization Address [facility]/ZIP Co de Phone Number [facility] [address] [place] [phone] * (ABNORMAL) Magnesium (07/17/2024 10:12 AM EST) Magnesium 1.5(L) 1.6 - 2.6 mg/dL [facility] 07/17/2024 10:1 2 AM EST 07/17/2024 10:16 AM EST Generic External Data Provider LAB BLOOD ORDERAB LES Final Result Performing Organization Address [facility]/ZIP Co de Phone Number [facility] [address] [place] [phone] * (ABNORMAL) Basic Metabolic Panel (07/17/2024 10:12 AM EST) Sodium 141 135 - 145 mmol/L [facility] Potassium 3.6 3.3 - 5.1 mmol/L [facility] Chloride 101 96 - 108 mmol/L [facility] Carbon Dioxide 25 22 - 29 mmol/L [facility] Anion Gap 19 12 - 20 [facility] Urea Nitrogen (BUN) 5(L) 9 - 16 mg/dL [facility] Creatinine, Serum 0.79 0.5 - 1.4 mg/dL [facility] Creatinine Clr Calc Pharmacy 106.3 [facility] Comment:eGFR (calculated fro m the MDRD study equation) and eCrCl(calculated from the Cockcroft-Gault equation) are based ondifferent parameters and may not yield comparable results.If eCrCl result is absurd, please check patient'sheight/weight. Estimated Glomerular Filt Rate >60 [facility] Comment:Chronic Kidney Disea se: Estimated GFR < 60 mL/min/1.20e9Azcghn Kidney Disease: Estimated GFR < 15 mL/min/1.73m2 Glucose 213(H) 60 - 115 mg/dL [facility] Calcium 9.0 8.4 - 10.2 mg/dL [facility] 07/17/2024 10:1 2 AM EST 07/17/2024 10:16 AM EST us Generic External Data Provider LAB BLOOD ORDERAB LES Final Result [facility] [address] [place] [address] [phone] * (ABNORMAL) Hepatic Function Panel (07/17/2024 10:12 AM EST) Bilirubin, Total 1.0 0.0 - 1.0 mg/dL [facility] Bilirubin, Direct 0.5 0.0 - 0.5 mg/dL [facility] Aspartate Amino Transferase 86(H) 5 - 37 U/L [facility] Alanine Aminotransferase 34 0 - 40 U/L [facility] Total Protein 8.0 6.5 - 8.0 g/dL [facility] Albumin Level 4.0 3.5 - 5.0 g/dL [facility] Alkaline Phosphatase 238(H) 39 - 117 U/L [facility] 07/17/2024 10:1 2 AM EST 07/17/2024 10:16 AM EST Generic External Data Provider LAB BLOOD ORDERAB LES Final Result Performing Organization Address [facility] Co de Phone Number [facility] [address] [place] [phone] * (ABNORMAL) High Sensitivity Troponin I (07/17/2024 10:12 AM EST) Pathologist [facility] TROPONIN I HIGH SENSITIVITY 40.7(H) <3.5 - 35.0 ng/L [facility] Comment:The Galeano high sens itivity Troponin-I results should beused in conjunction with other diagnostic information suchas ECG, clinical observations and information, and patientsymptoms to aid in the diagnosis of OH. 07/17/2024 10:1 2 AM EST 07/17/2024 10:16 AM EST Generic External Data Provider LAB BLOOD ORDERAB LES Final Result Performing Organization Address [facility] Co de Phone Number [facility] [address] [place] [phone] * B Type Natriuretic Peptide (BNP) (07/17/2024 10:12 AM EST) Pathologist [facility] B Type Natriuretic Peptide 89 <100 pg/mL [facility] Comment:For those patients w ho are being treated with Natrecor(nesiritide, recombinant BNP), BNP testing should beperformed at least two hours post treatment in order toensure that only endogenous levels of BNP are detected. 07/17/2024 10:1 2 AM EST 07/17/2024 10:16 AM EST us Generic External Data Provider LAB BLOOD ORDERAB LES Final Result [facility] [address] [place] [address] [phone] * (ABNORMAL) CBC auto differential (07/17/2024 10:12 AM EST) White Blood Count 7.3 4.8 - 10.8 X10*3/uL [facility] Red Blood Count 5.24 4.60 - 5.80 X10*6/uL [facility] Hemoglobin 13.8(L) 14.0 - 18.0 g/dl [facility] Hematocrit 42.6 42.0 - 52.0 % [facility] Mean Corpuscular Volume 81.3 80.0 - 98.0 fL [facility] Mean Corpuscular Hemoglobin 26.3(L) 27.0 - 33.0 pg [facility] Mean Corpuscular HGB Conc 32.4 31.0 - 36.0 g/dl [facility] Red Cell Distribution Width 14.1 11.0 - 16.0 % [facility] Platelet Count 168 160 - 400 X10*3/uL [facility] Mean Platelet Volume 9.3(L) 9.4 - 12.4 fL [facility] Neutrophils Percent Auto 75.6(H) 45 - 73 % [facility] Imm Gran Pct Auto 0.3 0.0 - 0.4 % [facility] Lymphocytes Percent Auto 15.0(L) 20 - 40 % [facility] Monocytes Percent Auto 8.2 2 - 11 % [facility] Eosinophils Percent Auto 0.5 0 - 4 % [facility] Basophils Percent Auto 0.4 0 - 2 % [facility] NRBC Pct Auto 0.0 0.0 - 0.2 /100WBC [facility] Neutrophils Absolute Auto 5.5 2.0 - 8.3 x10*3/uL [facility] Imm Gran Abs Auto 0.02 0.00 - 0.03 X10*3/uL [facility] Lymphocytes Absolute Auto 1.1(L) 1.2 - 4.9 X10*3/uL [facility] Monocytes Absolute Auto 0.6 0.1 - 1.2 X10*3/uL [facility] Eosinophils Absolute Auto 0.0 0.0 - 0.4 X10*3/uL [facility] Basophils Absolute Auto 0.0 0.0 - 0.2 X10*3/uL [facility] NRBC Abs Auto 0.000 0.0 - 0.012 X10*3/uL [facility] 07/17/2024 10:1 2 AM EST 07/17/2024 10:16 AM EST us Generic External Data Provider LAB BLOOD ORDERAB LES Final Result Performing Organization Address City/State/[facility] de Phone Number [facility] [address] [place] [address] [phone] documented in this encounter Visit Diagnoses Not on filedocumented in this encounter Additional Health Concerns Assessment Noted Time PHQ-9 Depression Total Score: 0 11/30/19 11:07 AM EDT documented as of this encounter Care Teams Sole Tier Relationship Specialty Start Date End Date Flora Santiago FNP [address] [place] [address] PCP - General Family Medicine 05/02/21 Sherin Hall, MICHELLE [address] [place] [address] Management Intern Family Medicine 07/30/23 Juan Jose Deshpande MD [address] [place] [address] Nephrology 06/13/24 Michael Glass MD [address] [place] [address] Dr [address] [place] [address] General Surgery 06/13/24 Demetrius Austin MD [address] [place] [address] Orthopaedic Surgery 06/13/24 Harry Garcia MD [address] 3rd [place] [address] Gastroenterology 06/13/24 Jovany Feliciano MD [address] 3rd [place] [address] Cardiology 06/13/24 documented as of this encounter
--- OUTSIDE RECORDS SUMMARY | 2024-07-30 16:35 | XMS_ITS | Encounter Summary ---
Author Organization [employer] Address [address] [facility] 7t [place] [address] Care Team Providers Care Architectural Design Lecturer Name Role Phone Flora Santiago Primary Care Provider [phone] Sherin Hall RN Unavailable [phone] Juan Jose Deshpande MD Unavailable [phone] Michael Glass MD Unavailable [phone] Demetrius Austin MD Unavailable Harry Garcia MD Unavailable [phone] Jovany Feliciano MD Unavailable [phone] Reason for Visit * Reason Onset Date Comments ED Visit 07/21/2024 Encounter Details Date Type Department Care Team ([facility] st Contact Info) Description 07/21/2024 Telephone [facility] CHC MED & PEDS [address] [place], [place] [phone] Flora Santiago FNP [address] [place], [place] [phone] ED Visit Social History Tobacco Use Types Packs/Day Years [...] encounter Miscellaneous Notes * Telephone Encounter - Kasey Flores RN - 07/23/2024 11:22 AM EST TC with patient via process tech #[id number]. Pt states he is waiting for [place] [facility] department to call him back with appointment. Asked patient to call office if he has not heard from GI doctor byend of next week. Patient states he is have slight right sided abdominal pain, and occasional nausea. Denies chest pain/pressure, SOB, dizziness. Patient stated understanding and agrees with the plan. Routing to provider as FYI. * Telephone Encounter - CIARRA Josue - 07/21/2024 6:44 PM EST Please call for status check following ED visit. There was an incidental finding of a lesion concerning for hepatocellular carcinoma. Please ask if he has scheduled follow up with GI. If not, I strongly encourage him to do so ALEJO. He should contact us with any issues, thank you! documented in this encounter Plan of Treatment Upcoming Encounters Date Type Department Care Team (Late st Contact Info) Description 08/07/2024 3:00 PM EST Office Visit [facility] ADULT DENTAL [address] [place] [address] Dany, Angelica [address] [place] [address] 08/11/2024 11:30 AM EST Office Visit [facility] CHC MED & PEDS [address] [place], [place] [phone] Flora Santiago FNP [address] [place], [place] [phone] 08/18/2024 9:30 AM EST Medication Management [facility] MEDICINE [address] [place] [address] Kandi Panda, RobertD [address] [place] [address] documented as of this encounter Goals Goal [...] documented as of this encounter Care Teams Architectural Design Lecturer Relationship Specialty Start Date End Date Flora Santiago FNP [address] [place] [address] PCP - General Family Medicine 05/02/21 Sherin Hall, RN [address] [place] [address] Donor Services Team Leader Family Medicine 07/30/23 Juan Jose Deshpande MD [address] [place] [address] Nephrology 06/13/24 Michael Glass MD [address] [place] [address] Dr [address] [place] [address] General Surgery 06/13/24 Demetrius Austin MD [address] [place] [address] Orthopaedic Surgery 06/13/24 Harry Garcia MD [address] [place] [address] Gastroenterology 06/13/24 Jovany Feliciano MD [address] [place] [address] Cardiology 06/13/24 documented as of this encounter
--- OUTSIDE RECORDS SUMMARY | 2024-07-30 16:36 | XMS_ITS | Encounter Summary ---
Author Organization [employer] Address [address] [facility] 7t [place] [address] Care Team Providers Care Zoo Caretaker Name Role Phone Flora Santiago Primary Care Provider [phone] Sherin Hall RN Unavailable [phone] Juan Jose Deshpande MD Unavailable [phone] Michael Glass MD Unavailable [phone] Demetrius Austin MD Unavailable Harry Garcia MD Unavailable [phone] Jovany Feliciano MD Unavailable Reason for Visit * Reason Onset Date Comments ER Follow-up 12/19/2022 Encounter Details Date Type Department Care Team (Late st Contact Info) Description 12/19/2022 Telephone [facility] MEDICINE [address] [place] [address] Flora Santiago FNP [address] [place], [place] [phone] ER Follow-up Social History Tobacco Use Types Packs/Day Years Used Date Smoking Tobacco: Never Passive Smoke Exposure: Never Smokeless Tobacco: Never Sex and Gender Information Value Date Recorded Sex Assigned at Male 05/08/2022 10:16 AM EDT Legal Sex Male 10:16 AM EDT Gender Identity Male 05/08/2022 10:16 AM EDT Sexual Orientation Straight 05/08/2022 10 :16 AM EDT COVID-19 Exposure Response Date Recorded In the last 10 days, have yo u been in contact with someone who was confirmed or suspected to have Coronavirus/COVID-19? No / Unsure 12/20/2022 11:09 AM EDT documented as of this encounter Miscellaneous Notes * Telephone Encounter - Shyanne Vicente RN - 12/20/2022 2:41 PM EDT HDF summery scanned into pt.'s chart. * Telephone Encounter - Shyanne Vicente RN - 12/20/2022 12:22 PM EDT T/C to [phone] through [employer] id - [id number] to schedule HDF , No answer. LVM to call back on [phone]. * Telephone Encounter - Elizabeth Call - 12/19/2022 3:14 PM EDT Tc from pt requesting a HDF appt. Pt was admitted at [facility] on 12/09/22 and discharged on 12/10/22 due to hernia by belly button, lower back pain, liver and left hip pain. Patient advised will forward to team documented in this encounter Plan of Treatment Upcoming Encounters Date Type Department Care Team (Late st Contact Info) Description 08/07/2024 3:00 PM EST Office Visit [facility] ADULT DENTAL [address] [place] [address] Dany, Angelica [address] [place] [address] 08/11/2024 11:30 AM EST Office Visit [facility] CHC MED & PEDS [address] [place] [address] Flora Santiago FNP [address] [place] [address] 08/18/2024 9:30 AM EST Medication Management [facility] MEDICINE [address] [place] [address] Kandi Panda, Fredrick [address] [place] [address] documented as of this encounter Visit Diagnoses Not on filedocumented in this encounter Care Teams Zoo Caretaker Relationship Specialty Start Date End Date Flora Santiago FNP [address] [place] [address] PCP - General Family Medicine 05/02/21 Sherin Hall, RN [address] [place] [address] Slab Puller Family Medicine 07/30/23 Juan Jose Deshpande MD [address] [place] [address] Nephrology 06/13/24 Michael Glass MD [address] [place] [address] [address] [place] [address] General Surgery 06/13/24 Demetrius Austin MD [address] [place] [address] Orthopaedic Surgery 06/13/24 Harry Garcia MD [address] [place] [address] Gastroenterology 06/13/24 Jovany Feliciano MD [address] [place] [address] Cardiology 06/13/24 documented as of this encounter
--- OUTSIDE RECORDS SUMMARY | 2024-07-30 16:36 | XMS_ITS | Encounter Summary ---
Author Organization [employer] Address [address] [facility] 7t [place] [address] Care Team Providers Care Mine Technician Name Role Phone Flora Santiago CIARRA Primary Care Provider [phone] Sherin Hall RN Unavailable [phone] Juan Jose Deshpande MD Unavailable [phone] Michael Glass MD Unavailable [phone] Demetrius Austin MD Unavailable Harry Garcia MD Unavailable [phone] Jovany Feliciano MD Unavailable Encounter Details Date Type Department Care Team (Latest Contact Info) Description 01/13/2021 Abstract [facility] CONVERSIONS Dental, Provider, DDS Social History Tobacco Use Types Packs/Day Years Used Date Smoking Tobacco: Never Assessed Sex and Gender Information Value Date Recorded Sex Assigned at Male 05/08/2022 10:16 AM EDT Legal Sex Male 10:16 AM EDT Gender Identity Male 05/08/2022 10:16 AM EDT Sexual Orientation Straight 05/08/2022 10 :16 AM EDT documented as of this encounter Plan of Treatment Upcoming Encounters Date Type Department Care Team (Late st Contact Info) Description 08/07/2024 3:00 PM EST Office Visit [facility] ADULT DENTAL [address] [place], [place] [phone] Dany, Angelica [address] [place], [place] [phone] 08/11/2024 11:30 AM EST Office Visit [facility] CHC MED & PEDS [address] [place], [place] [phone] Flora Santiago FNP [address] [place] [address] 08/18/2024 9:30 AM EST Medication Management [facility] MEDICINE [address] [place] [address] Kandi Panda PharmD [address] [place] [address] documented as of this encounter Visit Diagnoses Not on filedocumented in this encounter Care Teams Mine Technician Relationship Specialty Start Date End Date Flora Santiago FNP [address] [place] [address] PCP - General Family Medicine 05/02/21 Sherin Hall, RN [address] [place] [address] Service Planner Family Medicine 07/30/23 Juan Jose Deshpande MD [address] [place] [address] Nephrology 06/13/24 Michael Glass MD [address] [place] [address] Dr [address] [place] [address] General Surgery 06/13/24 Demetrius Austin MD [address] [place] [address] Orthopaedic Surgery 06/13/24 Harry Garcia MD [address] [address] Gastroenterology 06/13/24 Jovany Feliciano MD [address] [address] Cardiology 06/13/24 documented as of this encounter
--- OUTSIDE RECORDS SUMMARY | 2024-07-30 16:36 | XMS_ITS | Encounter Summary ---
Author Organization [employer] Address 75 [facility] 7t [place] [address] Care Team Providers Care Spring Coiling Machine Setter Name Role Phone Flora Santiago TREASURY REPRESENTATIVE Primary Care Provider [phone] Sherin Hall RN Unavailable [phone] Juan Jose Deshpande MD Unavailable [phone] Michael Glass MD Unavailable [phone] Demetrius Austin MD Unavailable Harry Garcia MD Unavailable [phone] Jovany Feliciano MD Unavailable [phone] Encounter Details Date Type Department Care Team (Late st Contact Info) Description 07/14/2022 Orders Only [facility] [address] [place] [address] Shahnaz Perez LPN Social History Tobacco Use Types Packs/Day Years Used Date Smoking Tobacco: Never Smokeless Tobacco: Never Sex and Gender [...] suspected to have Coronavirus/COVID-19? No / Unsure 06/22/2022 11:32 AM EST documented as of this encounter Plan of Treatment Upcoming Encounters Date Type Department Care Team (Late Contact Info) Description 08/07/2024 3:00 PM EST Office Visit [facility] ADULT DENTAL [address] [place] [address] Dany, Angelica [address] [place] [address] 08/11/2024 11:30 AM EST Office Visit [facility] [address] [place] [address] Flora Santiago FNP [address] [place] [address] 08/18/2024 9:30 AM EST Medication Management [facility] MED[facility] [address] [place] [address] Kandi Panda PharmD [address] [place] [address] documented as of this encounter Visit Diagnoses Not on filedocumented in this encounter Care Teams Spring Coiling Machine Setter Relationship Specialty Start Date End Date Flora Santiago FNP [address] [place] [address] PCP - General Family Medicine 05/02/21 Sherin Hall, RN [address] [place] [address] Breast Buffer Family Medicine 07/30/23 Juan Jose Deshpande MD [address] [place] [address] Nephrology 06/13/24 Michael Glass MD [address] [place] [address] Dr 3rd [place] [address] General Surgery 06/13/24 Demetrius Austin MD [address] [place] [address] Orthopaedic Surgery 06/13/24 Harry Garcia MD [address] 3rd [place] [address] Gastroenterology 06/13/24 Jovany Feliciano MD [address] 3rd Floor [place] [address] Cardiology 06/13/24 documented as of this encounter
--- OUTSIDE RECORDS SUMMARY | 2024-07-30 16:36 | XMS_ITS | Encounter Summary ---
Author Organization [employer] Address 75 [facility] 7t [place] [address] Care Team Providers Care Unit Leader Name Role Phone Flora Santiago CIARRA Primary Care Provider [phone] Sherin Hall RN Unavailable [phone] Juan Jose Deshpande MD Unavailable [phone] Michael Glass MD Unavailable [phone] Demetrius Austin MD Unavailable Harry Garcia MD Unavailable [phone] Jovany Feliciano MD Unavailable [phone] Encounter Details Date Type Department Care Team (Late st Contact Info) Description 02/22/2023 Orders Only [facility] MEDICINE [address] [place] [address] Yanique Hart MD [address] [place], [place] [id number] Other ascites (Primary Dx) Social History Tobacco Use Types Packs/Day Years Used Date Smoking Tobacco: Never Passive Smoke Exposure: Never Smokeless Tobacco: Never Alcohol Use Standard Drinks/Week Comments Never 0 (1 standard drink = 0.6 oz pur e alcohol) Sex and Gender Information Value Date Recorded Sex Assigned at Male 05/08/2022 10:16 AM EDT Legal Sex Male 10:16 AM EDT Gender Identity Male 05/08/2022 10:16 AM EDT Sexual Orientation Straight 05/08/2022 10 :16 AM EDT documented as of this encounter Plan of Treatment Upcoming Encounters Date Type Department Care Team (Late st Contact Info) Description 08/07/2024 3:00 PM EST Office Visit [facility] ADULT DENTAL [address] [place] [address] Dallin Saenzaris [address] [place] [address] 08/11/2024 11:30 AM EST Office Visit [facility] MED [facility] PEDS [address] [place] [address] Flora Santiago FNP 505 [place] [address] 08/18/2024 9:30 AM EST Medication Management [facility] MEDICINE [address] [place] [address] Kandi Panda PharmD [address] [place] [address] Scheduled Orders Name Type Priority Associated Diagnoses Orde r Schedule Body fluid cell count with differential Lab Routine Other ascites Expected: 02/22/2023, Expires: 02/23/2024 Albumin, body fluid Lab Routine Other ascites Expected: 02/22/2023 (Approximate), Expires: 02/23/2024 Protein, body fluid Lab Routine Other ascites Expected: 02/22/2023 (Approximate), Expires: 02/23/2024 Glucose, body fluid Lab Routine Other ascites Expected: 02/22/2023 (Approximate), Expires: 02/23/2024 documented as of this encounter Visit Diagnoses Diagnosis Other ascites- Primary documented in this encounter Care Teams Unit Leader Relationship Specialty Start Date End Date Flora Santiago FNP [address] [place] [address] PCP - General Family Medicine 05/02/21 Sherin Hall, RN [address] [place] [address] Consumer Recruiter Family Medicine 07/30/23 Juan Jose Deshpande MD [address] [place] [address] Nephrology 06/13/24 Michael Glass MD [address] [place] [address] Dr 3rd [place] [address] General Surgery 06/13/24 Demetrius Austin MD [address] [place] [address] Orthopaedic Surgery 06/13/24 Harry Garcia MD [address] [place] [address] Gastroenterology 06/13/24 Jovany Feliciano MD [address] [place] [address] Cardiology 06/13/24 documented as of this encounter
--- OUTSIDE RECORDS SUMMARY | 2024-07-30 16:36 | XMS_ITS | Clinical Summary ---
Author Organization [facility] Address [address] [facility] [address] [place] [address] Phone Care Team Providers Care Job Coaching Name Role Phone Unavailable Primary Care Provider Unavailabl e Allergies No known active allergies Medications insulin glargine (Lantus) 100 UNIT/ML injection Inject 18 Units under the skin 1 (one) time each day Active Insulin Lispro (HUMALOG KWIKPEN SC) Inject 15 Units under the skin 1 (one) time each day Active Cholecalcifero l (Vitamin D3) 50 MCG (2000 UT) tablet Take 1 tablet by mouth 1 (one) time each day 1 Active lisinopril (PRINIVIL,ZEST RIL) 40 MG tablet Take 40 mg by mouth 1 (one) time each day 1 Active Viagra 50 MG tablet TAKE 1/2-1 TABLET BY MOUTH EVERY DAY NEEDED APPROXIMATELY 1 HOUR BEFORE SEXUAL activity 1 Active pantoprazole (PROTONIX) 20 MG EC tablet Take 20 mg by mouth 1 (one) time each day before breakfast Do not crush, chew, or split. Active Active Problems Problem Noted Date Diagnosed Date Diabetes mellitus 09/29/2020 Essential hypertension 09/29/2020 Renal stone 09/29/2020 Resolved Problems Problem Noted Date Diagnosed Date Resolved Date H/O: depression 09/29/2020 09/29/2020 Nonalcoholic steatohepatitis (SALGUERO) 09/29/2020 09/29/2020 Obesity 09/29/2020 09/29/2020 Family History Medical History Relation Comments Hypertension Father Relation Status Comments Father Unknown Mother Unknown Social History Tobacco Use Types Packs/Day Years Used Date Smoking Tobacco: Never Smokeless Tobacco: Never Alcohol Use Standard Drinks/Week Comments Yes 0 (1 standard drink = 0.6 oz pure alcohol) Alcoholic Drinks/day: Occasional social drink Sex and Gender Information Value Date Recorded Sex Assigned at Not on file Legal Sex Male 4:48 PM EST Gender Identity Not on file Sexual Orientation Not on file Last Filed Vital Signs Vital Sign Reading Time Taken Comments Blood Pressure 120/70 12/15/2021 1:31 PM EDT Pulse 97 12/15/2021 1:31 PM EDT Temperature - - Respiratory Rate - - Oxygen Saturation 96% 12/15/2021 1:31 PM EDT Inhaled Oxygen Concentration - - Weight 87.9 kg (193 lb 12.8 oz) 12/15/2021 1:31 PM EDT Height 170.2 cm (5' 7 ) 10/04/2020 3:23 PM EDT Body Mass Index 30.35 10/04/2020 3:23 PM EDT Plan of Treatment Health Maintenance Due Date Last Done Comments Pneumococcal Vaccine: Pediat rics (0 to 5 Years) and At-Risk Patients (6 to 64 Years) (1 of 2 - PCV) 1971 Hepatitis B Vaccine (1 of 3 - 19+ 3-dose series) 04/27 Colorectal Cancer Screening: Annual FOBT 2014 Colorectal Cancer Screening: Colonoscopy 2014 Colorectal Cancer Screening: Sigmoidoscopy 2014 Diabetes: Hemoglobin A1C 08/09/2020 Diabetes: Ophthalmology Exam 08/09/2020 Diabetes: Pedal Pulse Checked 08/09/2020 Diabetes: Sensory Foot Exam 08/09/2020 Diabetes: Visual Foot Exam 08/09/2020 Influenza Vaccine (#1) 2024 Insurance [place]ID [place]
--- OUTSIDE RECORDS SUMMARY | 2024-07-30 16:36 | XMS_ITS | Encounter Summary ---
Author Organization [employer] Address [address] [facility] 7t [place] [address] Care Team Providers Care Systems Eng Name Role Phone Flora Santiago Primary Care Provider [phone] Sherin Hall RN Unavailable [phone] Juan Jose Deshpande MD Unavailable [phone] Michael Glass MD Unavailable [phone] Demetrius Austin MD Unavailable Harry Garcia MD Unavailable [phone] Jovany Feliciano MD Unavailable [phone] Encounter Details Date Type Department Care Team (Late st Contact Info) Description 02/15/2023 Telephone [facility] MEDICINE [address] [place] [address] Flora Santiago FNP [address] [place] [address] Social History Tobacco Use Types Packs/Day Years [...] encounter Miscellaneous Notes * Telephone Encounter - Cristina Gallardo - 02/15/2023 10:15 AM EDT Tc from pt returning outgoing call from sarah. Please contact pt at [phone] (Danish) documented in this encounter Plan of Treatment Upcoming Encounters Date Type Department Care Team (Late st Contact Info) Description 08/07/2024 3:00 PM EST Office Visit [facility] ADULT DENTAL [address] [place] [address] Dany, Angelica [address] [place] [address] 08/11/2024 11:30 AM EST Office Visit [facility] MED [facility] PEDS 505 [place] [address] Flora Santiago FNP [address] [place] [address] 08/18/2024 9:30 AM EST Medication Management [facility] MEDICINE [address] [place] [address] Kandi Panda PharmD [address] [place] [address] documented as of this encounter Visit Diagnoses Not on filedocumented in this encounter Care Teams Systems Eng Relationship Specialty Start Date End Date Flora Santiago FNP [address] [place] [address] PCP - General Family Medicine 05/02/21 Sherin Hall, RN [address] [place] [address] Nba Player Family Medicine 07/30/23 Juan Jose Deshpande MD [address] [place] [address] Drive [address] [place] [address] Nephrology 06/13/24 Michael Glass MD [address] [place] [address] Dr 3rd [place] [address] General Surgery 06/13/24 Demetrius Austin MD [address] [place] [address] Orthopaedic Surgery 06/13/24 Harry Garcia MD [address] 3rd [place] [address] Gastroenterology 06/13/24 Jovany Feliciano MD [address] 3rd [place] [address] Cardiology 06/13/24 documented as of this encounter
--- OUTSIDE RECORDS SUMMARY | 2024-07-30 16:36 | XMS_ITS | Encounter Summary ---
Author Organization [employer] Address [address] [facility] [address] 7t [place] [address] Care Team Providers Care Unhairer Name Role Phone Flora Santiago HORSE IDENTIFIER Primary Care Provider [phone] Sherin Hall RN Unavailable [phone] Juan Jose Deshpande MD Unavailable [phone] Michael Glass MD Unavailable Demetrius Austin MD Unavailable Harry Garcia MD Unavailable Jovany Feliciano MD Unavailable [phone] Encounter Details Date Type Department Care Team (Late st Contact Info) Description 05/25/2023 Abstract [facility] MEDICINE [address] [place], [place] [phone] Debi Zamora Social History Tobacco Use Types Packs/Day Years Used Date Smoking Tobacco: Never Passive Smoke Exposure: Never Smokeless Tobacco: Never Alcohol Use Standard Drinks/Week Comments Never 0 (1 standard drink = 0.6 oz pur e alcohol) Housing Stability Answer Date Recorded What is your housing situation today? I have angelo gross 04/24/[address] you li ve. Do you have problems with any of the following? None of the above 04/24/2023 Food Insecurity Answer Date Recorded Within the past 12 months, y ou worried that your food would run out before you got money to buy more: Never True 04/24/2023 Within the past 12 months,th e food you bought just didn't last and you didn't have enough money to get more: Never True Transportation Answer Date Recorded In the past 12 months, has l ack of transportation kept you from medical appts, meetings, work or from getting things needed for daily living? No 04/24/2023 Utilities Answer Date Recorded In the past 12 months, has t he electric, gas, oil or water company threatened to shut off services in your home? Yes 04/16/2023 Sex and Gender Information Value Date Recorded Sex Assigned at Male 05/08/2022 10:16 AM EDT Legal Sex Male 10:16 AM EDT Gender Identity Male 05/08/2022 10:16 AM EDT Sexual Orientation Straight 05/08/2022 10 :16 AM EDT documented as of this encounter Plan of Treatment Upcoming Encounters Date Type Department Care Team (Late st Contact Info) Description 08/07/2024 3:00 PM EST Office Visit [facility] ADULT DENTAL [address] [place] [address] Dany, Angelica [address] [place] [address] 08/11/2024 11:30 AM EST Office Visit [facility] CHC MED & PEDS [address] [place] [address] Flora Santiago, HORSE IDENTIFIER 505 [place] [address] 08/18/2024 9:30 AM EST Medication Management [facility] MEDICINE [address] [place] [address] Kandi Panda, PharmD [address] [place] [address] documented as of this encounter Procedures Procedure Name Priority Date/Time Associated Diagnosis Comments COLONOSCOPY Routine 03/17/2021 documented in this encounter Results * Colonoscopy (03/17/2021) Colonoscopy Normal Normal Narrative Debi Zamora - 03/17/2021 Repeat in 5 years tubular adenoma us Historical Provider HEALTH MAINTENANCE Final Result documented in this encounter Visit Diagnoses Not on filedocumented in this encounter Care Teams Unhairer Relationship Specialty Start Date End Date Flora Santiago FNP [address] [place] [address] PCP - General Family Medicine 05/02/21 Sherin Hall, RN [address] [place] [address] Publishing Director Family Medicine 07/30/23 Juan Jose Deshpande MD [address] [place] [address] Nephrology 06/13/24 Michael Glass MD [address] [place] [address] Dr [address] [place] [address] General Surgery 06/13/24 Demetrius Austin MD [address] [place] [address] Orthopaedic Surgery 06/13/24 Harry Garcia MD [address] [place] [address] Gastroenterology 06/13/24 Jovany Feliciano MD [address] [address] Cardiology 06/13/24 documented as of this encounter
--- OUTSIDE RECORDS SUMMARY | 2024-07-30 16:36 | XMS_ITS | Encounter Summary ---
Author Organization [employer] Address 75 [facility] 7t [place] [address] Care Team Providers Care Senior Web Applications Developer Name Role Phone Flora Santiago CIARRA Primary Care Provider [phone] Sherin Hall RN Unavailable [phone] Juan Jose Deshpande MD Unavailable [phone] Michael Glass MD Unavailable [phone] Demetrius Austin MD Unavailable Harry Garcia MD Unavailable [phone] Jovany Feliciano MD Unavailable Encounter Details Date Type Department Care Team (Latest Contact Info) Description 01/24/2019 Abstract [facility] CONVERSIONS Dental, Provider, DDS Social History [...] Description 08/07/2024 3:00 PM EST Office Visit [facility] ADULT DENTAL [address] [place], [place] [phone] Dany, Angelica [address] [place], [place] [phone] 08/11/2024 11:30 AM EST Office Visit [facility] CHC MED & PEDS [address] [place], [place] [phone] Flora Santiago FNP [address] [place] [address] 08/18/2024 9:30 AM EST Medication Management [facility] MEDICINE [address] [place] [address] Kandi Panda, Fredrick [address] [place] [address] documented as of this encounter Visit Diagnoses Not on filedocumented in this encounter Care Teams Senior Web Applications Developer Relationship Specialty Start Date End Date Flora Santiago FNP [address] [place] [address] PCP - General Family Medicine 05/02/21 Sherin Hall, RN [address] [place] [address] Science Center Display Builder Family Medicine 07/30/23 Juan Jose Deshpande MD [address] [place] [address] Nephrology 06/13/24 Michael Glass MD [address] [place] [address] Dr [address] [place] [address] General Surgery 06/13/24 Demetrius Austin MD [address] [place] [address] Orthopaedic Surgery 06/13/24 Harry Garcia MD [address] [place] [address] Gastroenterology 06/13/24 Jovany Feliciano MD [address] [address] Cardiology 06/13/24 documented as of this encounter
--- OUTSIDE RECORDS SUMMARY | 2024-07-30 16:36 | XMS_ITS | Encounter Summary ---
Author Organization [employer] Address 75 [facility] 7t [place] [address] Care Team Providers Care Board Certified Arts Therapist Name Role Phone Flora Santiago Primary Care Provider [phone] Sherin Hall RN Unavailable [phone] Juan Jose Deshpande MD Unavailable [phone] Michael Glass MD Unavailable [phone] Demetrius Austin MD Unavailable Harry Garcia MD Unavailable [phone] Jovany Feliciano MD Unavailable [phone] Reason for Visit * Reason Onset Date Comments Returning Call Back 12/19/2022 Encounter Details Date Type Department Care Team (Late st Contact Info) Description 12/19/2022 Telephone [facility] MEDICINE [address] [place] [address] Flora Santiago FNP [address] [place] [address] Returning Call Back Social History Tobacco Use Types Packs/Day Years [...] encounter Miscellaneous Notes * Telephone Encounter - Elizabeth Call - 12/19/2022 3:12 PM EDT Tc from patient returning call back, regarding message below. Please call patient after 3 pm after work. documented in this encounter Plan of Treatment Upcoming Encounters Date Type Department Care Team (Late st Contact Info) Description 08/07/2024 3:00 PM EST Office Visit [facility] ADULT DENTAL [address] [place] [address] Dany Angelica [address] [place] [address] 08/11/2024 11:30 AM EST Office Visit [facility] MED & PEDS 505 [place] [address] Flora Santiago FNP [address] [place] [address] 08/18/2024 9:30 AM EST Medication Management [facility] MEDICINE [address] [place] [address] Kandi Panda, RobertD 230 [place] [address] documented as of this encounter Visit Diagnoses Not on filedocumented in this encounter Care Teams Board Certified Arts Therapist Relationship Specialty Start Date End Date Flora Santiago FNP [address] [place] [address] PCP - General Family Medicine 05/02/21 Sherin Hall, RN [address] [place] [address] Car Rental Manager Family Medicine 07/30/23 Juan Jose Deshpande MD [address] [place] [address] Nephrology 06/13/24 Michael Glass MD [address] [place] [address] 3[address] [place] [address] General Surgery 06/13/24 Demetrius Austin MD [address] [place] [address] Orthopaedic Surgery 06/13/24 Harry Garcia MD [address] [place] [address] Gastroenterology 06/13/24 Jovany Feliciano MD [address] [place] [address] Cardiology 06/13/24 documented as of this encounter
--- OUTSIDE RECORDS SUMMARY | 2024-07-30 16:36 | XMS_ITS | Encounter Summary ---
Author Organization [employer] Address 75 [facility] 7t [place] [address] Care Team Providers Care Claim Rep Name Role Phone Flora Santiago MONUMENT MASON Primary Care Provider [phone] Sherin Hall RN Unavailable [phone] Juan Jose Deshpande MD Unavailable [phone] Michael Glass MD Unavailable [phone] Demetrius Austin MD Unavailable Harry Garcia MD Unavailable [phone] Jovany Feliciano MD Unavailable [phone] Encounter Details Date Type Department Care Team (Late st Contact Info) Description 10/04/2022 Orders Only [facility] CHC MED & PEDS [address] [place], [place] [phone] Shahnaz Perez LPN Social History Tobacco Use [...] Description 08/07/2024 3:00 PM EST Office Visit [facility] ADULT DENTAL [address] [place], [place] [phone] Angelica Saenz [address] [place], [place] [phone] 08/11/2024 11:30 AM EST Office Visit [facility] MED & PEDS [address] [place] [address] Flora Santiago FNP [address] [place] [address] 08/18/2024 9:30 AM EST Medication Management [facility] MEDICINE [address] [place] [address] Kandi Panda PharmD [address] [place] [address] documented as of this encounter Visit Diagnoses Not on filedocumented in this encounter Care Teams Claim Rep Relationship Specialty Start Date End Date Flora Santiago FNP [address] [place] [address] PCP - General Family Medicine 05/02/21 Sherin Hall RN [address] [place] [address] Horizontal Drill Operator Family Medicine 07/30/23 Juan Jose Deshpande MD [address] [place] [address] Nephrology 06/13/24 Michael Glass MD [address] [place] [address] Dr [address] [place] [address] General Surgery 06/13/24 Demetrius Austin MD [address] [place] [address] Orthopaedic Surgery 06/13/24 Harry Garcia MD [address] [place] [address] Gastroenterology 06/13/24 Jovany Feliciano MD [address] [place] [address] Cardiology 06/13/24 documented as of this encounter
== END 2024-07-30 15:05 | disposition home or self-care (01) ==
PROVIDERS: PCP Registered Nurse
DX: R07.9 Chest pain, unspecified (principal); I25.10 Atherosclerotic heart disease of native coronary artery without angina pectoris; I35.0 Nonrheumatic aortic (valve) stenosis; E11.8 Type 2 diabetes mellitus with unspecified complications; E78.5 Hyperlipidemia, unspecified
CPT/HCPCS: 99214

== ENCOUNTER → 2024-07-30 14:13 | Outpatient (BNVA) | payer MEDICAID, SELFPAY | PROVIDERS: PCP Registered Nurse | DX: I25.10 Atherosclerotic heart disease of native coronary artery without angina pectoris (principal); I10 Essential (primary) hypertension; I35.0 Nonrheumatic aortic (valve) stenosis; E78.5 Hyperlipidemia, unspecified; F17.290 Nicotine dependence, other tobacco product, uncomplicated; R07.9 Chest pain, unspecified; E11.8 Type 2 diabetes mellitus with unspecified complications; R01.1 Cardiac murmur, unspecified; R06.00 Dyspnea, unspecified; Z79.899 Other long term (current) drug therapy | CPT/HCPCS: 99212 ==

== ENCOUNTER 2024-07-31 09:54 | Outpatient (AMB) | payer MEDICAID, SELFPAY ==
[2024-07-31 09:55] VITALS: BP 102/62; PULSE 87; O2SAT 97; BMI 30.7
--- NOTE | 2024-07-31 09:55 | HO.NEPHOV_ITS ---
Vital Signs 07/31/24 09:55 Height 5 ft 7 in Weight 196 lb BMI 30.7 BP 102/62 Blood Pressure Location Rt brachial Position Sitting Pulse 87 Pulse Source Pulse Oximeter Pulse Oximetry (%) 97 Oxygen Delivery Method Room Air Intake Visit Reasons: Swelling-Conf Community Health Coordinator Required: No Accompanied by: Self / Same As Patient Allergies shrimp Allergy (Severe, Verified 07/31/24 09:57) Difficulty Breathing atorvastatin [ATORVASTATIN] Adverse Reaction (Intermediate, Verified 07/31/24 09:57) elevated LFTs Medication List - Last Reconciled 07/31/24 by Juan Jose Deshpande MD alirocumab (Praluent Pen) 75 mg subcut Q2W aspirin 81 mg PO DAILY blood sugar diagnostic (FreeStyle Lite Strips) As directed cholecalciferol (vitamin D3) 50 mcg PO DAILY cyclobenzaprine 5 mg PO TID PRN empagliflozin (Jardiance) 25 mg PO QAM flash glucose sensor (FreeStyle Bill 2 Sensor kit) As directed insulin degludec (Tresiba FlexTouch U-100 insulin) 20 units subcut BEDTIME insulin lispro (Humalog KwikPen (U-100) Insulin) 1 sliding scale dose subcut TIDAC lancets (TRUEplus Lancets) As directed lidocaine 5% 1 patch topical DAILY lisinopril 10 mg PO DAILY metoprolol succinate ER 25 mg PO DAILY pen needle, diabetic (Sure Comfort Pen Needle) As directed rifaximin 550 mg PO TID 2 weeks tadalafil (Cialis) 20 mg PO .PRN PRN 90 days tadalafil (Cialis) 5 mg PO DAILY 90 days thiamine HCl (vitamin B1) 100 mg PO TID vitamin A 1 cap PO QPM zinc sulfate 50 mg PO QPM HPI Comments Details: Steven is a very pleasant man with a h/o arthritis, ACD, CAD, depression, hypertension, fatty liver, fibromyalgia, hyperlipidemia, non alcoholic steatohepatitis, and type 2 diabetes. Essentially normal renal function Here for follow up 01/01/2024. He has been experiencing vague low back pain. Did not take any NSAIDs. Recent serum creatinine was 1.4 which is a new change. His blood pressure has been running low. He is on eplerenone, furosemide, margot nopril. During last visit lisinopril was decreased from 40 mg down to 20 mg due to low blood pressure. Despite this blood pressure remains low 01/28/24 After stopping Lisinopril and LAsix, Creatinine has improved;No edema 04/01/24 ;Doing better;NO edema 05/27/24. Recently had hernia surgery. Today blood pressure is low. He has no complaints 06/09/24 Lisinopril on hold due to low BP Blood sugar is low and had a fall yesterday 07/31/24 After holding Lisnopril, BP shot up Back on Lisinopril 10 mg [facility] Medical History Diabetes Back pain GERD (gastroesophageal reflux disease) Cirrhosis CAD (coronary artery disease) Palpitations Arthritis Fibromyalgia SALGUERO (nonalcoholic steatohepatitis) Fatty liver Depression Hyperlipidemia, unspecified Type 2 diabetes mellitus with unspecified complications Essential hypertension Atherosclerotic cardiovascular disease Surgical History History of umbilical hernia repair (05/23/24) History of abdominal paracentesis Hx of cholecystectomy History of umbilical hernia repair Hx of endoscopy History of colonoscopy History of ankle surgery Left inguinal hernia (05/04/23) Gallstone Family History Father Diabetes Mother No problems noted. Social History Household Members: Spouse Housing: House Are you a primary personal care aide to a significant other at home: No Do you presently have visiting nurse or other home services: No Alcohol intake: unknown Comment: pt medicated Patient Tobacco Use Status: Current someday Tobacco user Tobacco use type: Cigar service: No Current occupational status: employed Current occupation: [employer] Physical Exam Vital Signs: Last Vital Signs Pulse 87 07/31/24 09:55 BP 102/62 07/31/24 09:55 Pulse Ox 97 07/31/24 09:55 Oxygen Delivery Method Room Air 07/31/24 09:55 BMI result Body Mass Index 30.7 Results Reviewed Nephrology Results: Hgb 13.8 g/dl (14.0-18.0) L 07/17/24 WBC 7.3 X10*3/uL (4.8-10.8) 07/17/24 Plt Count 168 X10*3/uL (160-400) 07/17/24 Sodium 141 mmol/L (135-145) 07/17/24 Potassium 3.6 mmol/L (3.3-5.1) 07/17/24 Chloride 101 mmol/L (96-108) 07/17/24 Carbon Dioxide 25 mmol/L (22-29) 07/17/24 BUN 5 mg/dL (9-16) L 07/17/24 Creatinine 0.79 mg/dL (0.5-1.4) 07/17/24 Calcium 9.0 mg/dL (8.4-10.2) 07/17/24 Urine Protein 30 (1+) mg/dL (Neg-Trace) H 06/06/24 Assessment & Plan Assessment & Plan (1) Hematuria: Code(s): R31.9 - Hematuria, unspecified Category: Medical (2) Essential hypertension: Code(s): I10 - Essential (primary) hypertension Category: Medical (3) Proteinuria: Code(s): R80.9 - Proteinuria, unspecified Category: Medical (4) Hyponatremia: Code(s): E87.1 - Hypo-osmolality and hyponatremia Category: Medical (5) CKD stage 3a, GFR 45-59 ml/min: Code(s): N18.31 - Chronic kidney disease, stage 3a Category: Medical Plan Middle aged man with Essentially normal renal function in a setting of DM and SALGUERO Minimal proteinuria SPEP revealed elevated beta 2 microglobulin. Serum immunofixation -Faint igA elevation Renal function stable Microhematuria - painless'; follow-up with Urology Blood pressure rather low today. Recommend: Watch BP for now May need to cut down Lisinopril to 5 mg QD based on home BP readings Maintain BP < 130/80 Avoid Hypotension Restrict PO water intake due to hyponatremia Agree with current meds including SGLT-2 inhibitors - Glycosuria due to SGLT-2 inhibitor DM Blood sugar with wide fluctuation Defer to PCP REpeat serum immunefixation and urien protein in 6 weeks Orders: Orders Total Protein Urine Random 6 Weeks N18.31 - Chronic kidney disease, stage 3a, R80.9 - Proteinuria, unspecified UA and rflx microscopic 6 Weeks N18.31 - Chronic kidney disease, stage 3a, R8 0.9 - Proteinuria, unspecified Basic Metabolic Panel 6 Weeks N18.31 - Chronic kidney disease, stage 3a, R80.9 - Proteinuria, unspecified Creatinine Urine 6 Weeks N18.31 - Chronic kidney disease, stage 3a, R80.9 - Proteinuria, unspecified Immunofixation, Random Urine 6 Weeks N18.31 - Chronic kidney disease, stage 3a, R80.9 - Proteinuria, unspecified Immunofixation Pnl, Serum 6 Weeks N18.31 - Chronic kidney disease, stage 3a, R80.9 - Proteinuria, unspecified Protein Electrophoresis, Serum 6 Weeks N18.31 - Chronic kidney disease, stage 3a, R80.9 - Proteinuria, unspecified Coding Level of Care Code Est Pt Level 4 (02649) Diagnoses Hematuria R31.9 Essential hypertension I10 Proteinuria R80.9 Hyponatremia E87.1 CKD stage 3a, GFR 45-59 ml/min N18.31
--- OUTSIDE RECORDS SUMMARY | 2024-07-31 11:24 | XMS_ITS | Encounter Summary ---
Author Organization [employer] Address [address] [facility] 7t [place] [address] Care Team Providers Care Emt/Dispatcher Name Role Phone Flora Santiago Primary Care Provider [phone] Sherin Hall RN Unavailable [phone] Juan Jose Deshpande MD Unavailable [phone] Michael Glass MD Unavailable [phone] Demetrius Austin MD Unavailable Harry Garcia MD Unavailable [phone] Jovany Feliciano MD Unavailable Reason for Visit * Reason Comments Med Refill Encounter Details Date Type Department Care Team (Late st Contact Info) Description 07/02/2024 Refill [facility] MED & PEDS [address] [place], [place] [phone] Flora Santiago FNP [address] [place], [place] [phone] Social History Tobacco Use Types Packs/Day Years [...] Description 08/07/2024 3:00 PM EST Office Visit [facility] ADULT DENTAL [address] [place] [address] Angelica Saenz [address] [place] [address] 08/11/2024 11:30 AM EST Office Visit [facility] MED & PEDS [address] [place] [address] Flora Sanitago FNP [address] [place] [address] 08/18/2024 9:30 AM EST Medication Management [facility] MEDICINE [address] [place] [address] Kandi Panda, Fredrick [address] [place] [address] documented as of this encounter Goals Goal [...] documented as of this encounter Care Teams Emt/Dispatcher Relationship Specialty Start Date End Date Flora Santiago FNP [address] [place] [address] PCP - General Family Medicine 05/02/21 Sherin Hall RN [address] [place] [address] Mercury Purifier Family Medicine 07/30/23 Juan Jose Deshpande MD [address] [place] [address] Nephrology 06/13/24 Michael Glass MD [address] [place] [address] Dr [address] [place] [address] General Surgery 06/13/24 Demetrius Austin MD [address] [place] [address] Orthopaedic Surgery 06/13/24 Harry Garcia MD [address] [place] [address] Gastroenterology 06/13/24 Jovany Feliciano MD [address] [address] Cardiology 06/13/24 documented as of this encounter
--- OUTSIDE RECORDS SUMMARY | 2024-07-31 11:24 | XMS_ITS | Encounter Summary ---
Author Organization [employer] Address [address] [facility] 7t [place] [address] Care Team Providers Care Weight Clerk Name Role Phone Flora Santiago CIARRA Primary Care Provider [phone] Sherin Hall RN Unavailable [phone] Juan Jose Deshpande MD Unavailable [phone] Michael Glass MD Unavailable [phone] Demetrius Austin MD Unavailable Harry Garcia MD Unavailable [phone] Jovany Feliciano MD Unavailable Encounter Details Date Type Department Care Team (Late st Contact Info) Description 02/22/2023 Orders Only [facility] [address] [place] [address] Yanique Hart MD [address] [place], [place] [phone] Other ascites (Primary Dx) Social History Tobacco [...] Description 08/07/2024 3:00 PM EST Office Visit [facility] ADULT DENTAL [address] [place] [address] Dallin Saenzaris [address] [place] [address] 08/11/2024 11:30 AM EST Office Visit [facility] MED [facility] PEDS 505 [place] [address] Flora Santiago FNP 505 [place] [address] 08/18/2024 9:30 AM EST Medication Management [facility] [address] [place] [address] Kandi Panda PharmD [address] [place] [address] Scheduled Orders Name Type Priority Associated Diagnoses [...] Primary documented in this encounter Care Teams Weight Clerk Relationship Specialty Start Date End Date Flora Santiago FNP [address] [place] [address] PCP - General Family Medicine 05/02/21 Sherin Hall, RN [address] [place] [address] Freight Elevator Erector Family Medicine 07/30/23 Juan Jose Deshpande MD [address] [place] [address] Nephrology 06/13/24 Michael Glass MD [address] [place] [address] Dr 3rd [place] [address] General Surgery 06/13/24 Demetrius Austin MD [address] [place] [address] Orthopaedic Surgery 06/13/24 Harry Garcia MD [address] [place] [address] Gastroenterology 06/13/24 Jovany Feliciano MD [address] [place] [address] Cardiology 06/13/24 documented as of this encounter
--- OUTSIDE RECORDS SUMMARY | 2024-07-31 11:24 | XMS_ITS | Encounter Summary ---
Author Organization [employer] Address [address] [facility] 7t [place] [address] Care Team Providers Care Regional Psychiatric Director Name Role Phone Flora Santiago Primary Care Provider [phone] Sherin Hall RN Unavailable [phone] Juan Jose Deshpande MD Unavailable [phone] Michael Glass MD Unavailable [phone] Demetrius Austin MD Unavailable Harry Garcia MD Unavailable [phone] Jovany Feliciano MD Unavailable Encounter Details Date Type Department Care Team (Late st Contact Info) Description 04/30/2024 Telephone [facility] 230 [place] [address] Flora Santiago FNP [address] [place], [place] [phone] Social History Tobacco Use Types Packs/Day Years [...] 08/07/2024 3:00 PM EST Office Visit [facility] ADULT DENTAL [address] [place] [address] Dallin Saenzaris [address] [place] [address] 08/11/2024 11:30 AM EST Office Visit [facility] MED & PEDS 505 [place] [address] Flora Santiago FNP 505 [place] [address] 08/18/2024 9:30 AM EST Medication Management [facility] [address] [place] [address] Kandi Panda, PharmD 230 [place] [address] documented as of this encounter Goals Goal [...] documented as of this encounter Care Teams Regional Psychiatric Director Relationship Specialty Start Date End Date Flora Santiago FNP 230 [place] [address] PCP - General Family Medicine 05/02/21 Sherin Hall, RN 230 [place] [address] Criminal Research Specialist Family Medicine 07/30/23 Juan Jose Deshpande MD [address] [place] [address] Nephrology 06/13/24 Michael Glass MD [address] [place] [address] Dr [address] [place] [address] General Surgery 06/13/24 Demetrius Austin MD [address] [place] [address] Orthopaedic Surgery 06/13/24 Harry Garcia MD [address] [facility] [address] [place] [address] Gastroenterology 06/13/24 Jovany Feliciano MD [address] [address] Cardiology 06/13/24 documented as of this encounter
--- OUTSIDE RECORDS SUMMARY | 2024-07-31 11:24 | XMS_ITS | Clinical Summary ---
Author Organization [facility] Address [address] [facility] [address] [place] [address] Phone Care Team Providers Care Habitat Management Coordinator Name Role Phone Unavailable Primary Care Provider [...] 08/09/2020 Influenza Vaccine (#1) 2024 Insurance [place]ICA[place]
--- OUTSIDE RECORDS SUMMARY | 2024-07-31 11:24 | XMS_ITS | Encounter Summary ---
Author Organization [employer] Address [address] [facility] 7t [place] [address] Care Team Providers Care Waste/Materials Exchange Specialist Name Role Phone Flora Santiago CIARRA Primary Care Provider Sherin Hall RN Unavailable Juan Jose Deshpande MD Unavailable [phone] Michael Glass MD Unavailable [phone] Demetrius Austin MD Unavailable Harry Garcia MD Unavailable [phone] Jovany Feliciano MD Unavailable Encounter Details Date Type Department Care Team (Latest Contact Info) Description 01/24/2019 Abstract [facility] CONVERSIONS Dental, Provider, DDS Social [...] Description 08/07/2024 3:00 PM EST Office Visit [facility] ADULT DENTAL [address] [place], [place] [phone] Dany, Angelica [address] [place], [place] [phone] 08/11/2024 11:30 AM EST Office Visit [facility] CHC MED & PEDS [address] [place], [place] [phone] Flora Santiago FNP 505 [place] [address] 08/18/2024 9:30 AM EST Medication Management [facility] MEDICINE [address] [place] [address] Kandi Panda, Fredrick 230 [place] [address] documented as of this encounter Visit Diagnoses Not on filedocumented in this encounter Care Teams Waste/Materials Exchange Specialist Relationship Specialty Start Date End Date Flora Santiago FNP 230 [place] [address] PCP - General Family Medicine 05/02/21 Sherin Hall, RN [address] [place] [address] Soft Sugar Cutter Family Medicine 07/30/23 Juan Jose Deshpande MD [address] [place] [address] Nephrology 06/13/24 Michael Glass MD [address] [place] [address] Dr [address] [place] [address] General Surgery 06/13/24 Demetrius Austin MD [address] [place] [address] Orthopaedic Surgery 06/13/24 Harry Garcia MD [address] [facility] [address] [place] [address] Gastroenterology 06/13/24 Jovany Feliciano MD [address] [address] Cardiology 06/13/24 documented as of this encounter
--- OUTSIDE RECORDS SUMMARY | 2024-07-31 11:24 | XMS_ITS | Encounter Summary ---
Author Organization [employer] Address [address] [place] [address] 7t [place] [address] Care Team Providers Care Certified Lactation Counselor Name Role Phone Flora Santiago DOORKEEPER Primary Care Provider [phone] Sherin Hall RN Unavailable [phone] Juan Jose Deshpande MD Unavailable [phone] Michael Glass MD Unavailable [phone] Demetrius Austin MD Unavailable Harry Garcia MD Unavailable [phone] Jovany Feliciano MD Unavailable [phone] Reason for Referral * Consultation (Routine) - Authorized Specialty Diagnoses / Procedures Referred By Jana t Referred To Contact Pharmacy Diagnoses Type 2 diabetes mellitus with hyperglycemia, with long-term current use of insulin ([facility]) Divya Amos MD [address] [place] [address] Phone: tel: fax: Referral ID Status Reason Start Date Expiration Date Visits Requested Visits Authorized [id number] Authorized Consult and Treat 06/11/2024 06/11/2025 6 6 Encounter Details Date Type Department Care Team (Late st Contact Info) Description 06/11/2024 Orders Only [facility] MED[facility] [address] [place], [place] [phone] Divya Amos MD [address] [place], [place] [phone] Type 2 diabetes mellitus with hyperglycemia, with long-term current use of insulin ([facility]) (Primary Dx) Social History Tobacco Use Types [...] Description 08/07/2024 3:00 PM EST Office Visit [facility] ADULT DENTAL [address] [place], [place] [phone] Angelica Saenz [address] [place] [address] 08/11/2024 11:30 AM EST Office Visit [facility] CHC MED & PEDS 505 [place] [address] Flora Santiago FNP 505 [place], [place] 08/18/2024 9:30 AM EST Medication Management [facility] MEDICINE [address] [place] [address] Kandi Panda PharmD [address] [place], [place] Scheduled Referrals Name Type Priority Associated Diagnoses Orde r Schedule Referral to Pharmacy CDTM Outpatient Referral Routine Type 2 diabetes mellitus with hyperglycemia, with long-term current use of insulin ([facility]) Ordered: 06/11/2024 documented as of this encounter [...] hyperglycemia, with long-term current use of insulin ([facility])- Primary documented in this encounter Additional Health Concerns Assessment Noted Time PHQ-9 Depression Total Score: 0 11/30/19 11:07 AM EDT documented as of this encounter Care Teams Certified Lactation Counselor Relationship Specialty Start Date End Date Flora Santiago FNP [address] [place], [place] PCP - General Family Medicine 05/02/21 Sherin Hall, RN [address] [place] [address] Card Tape Converter Operator Family Medicine 07/30/23 Juan Jose Deshpande MD [address] [place] [address] Nephrology 06/13/24 Michael Glass MD [address] [facility] [address] 3rd [place] [address] General Surgery 06/13/24 Demetrius Austin MD [address] [place] [address] Orthopaedic Surgery 06/13/24 Harry Garcia MD [address] [facility] [place] [address] Gastroenterology 06/13/24 Joavny Feliciano MD [address] [place] [address] Cardiology 06/13/24 documented as of this encounter
--- OUTSIDE RECORDS SUMMARY | 2024-07-31 11:24 | XMS_ITS | Encounter Summary ---
Author Organization [employer] Address [address] [facility] 7t [place] [address] Care Team Providers Care Medical Secretary Teacher Name Role Phone Flora Santiago Primary Care Provider [phone] Sherin Hall RN Unavailable [phone] Juan Jose Deshpande MD Unavailable [phone] Michael Glass MD Unavailable [phone] Demetrius Austin MD Unavailable Harry Garcia MD Unavailable [phone] Jovany Feliciano MD Unavailable Reason for Visit * Reason Onset Date Comments ER Follow-up 12/19/2022 Encounter Details Date Type Department Care Team (Late st Contact Info) Description 12/19/2022 Telephone [facility] MEDICINE [address] [place] [address] Flora Santiago FNP [address] [place], [place] [phone] ER Follow-up Social History Tobacco Use Types [...] - 12/20/2022 12:22 PM EDT T/C to [phone] through [employer] id - [id number] to schedule HDF , No answer. LVM to call back on [phone]. * Telephone Encounter - Elizabeth Call - 12/19/2022 3:14 PM EDT Tc from pt requesting a HDF appt. Pt was admitted at [facility] on 12/09/22 and discharged on 12/10/22 due to hernia by belly button, lower back pain, liver and left hip pain. Patient advised will forward to team documented in this encounter Plan of Treatment Upcoming Encounters Date Type Department Care Team (Late st Contact Info) Description 08/07/2024 3:00 PM EST Office Visit [facility] ADULT DENTAL [address] [place] [address] Dany, Angelica 230 [place] [address] 08/11/2024 11:30 AM EST Office Visit [facility] CHC MED & PEDS 505 [place] [address] Flora Santiago FNP 505 [place] [address] 08/18/2024 9:30 AM EST Medication Management [facility] MEDICINE [address] [place] [address] Kandi Panda, Fredrick 230 [place] [address] documented as of this encounter Visit Diagnoses Not on filedocumented in this encounter Care Teams Medical Secretary Teacher Relationship Specialty Start Date End Date Flora Santiago FNP [address] [place] [address] PCP - General Family Medicine 05/02/21 Sherin Hall, RN 230 [place] [address] Director Style Family Medicine 07/30/23 Juan Jose Deshpande MD [address] [place] [address] Nephrology 06/13/24 Michael Glass MD [address] [place] [address] 3[address] [place] [address] General Surgery 06/13/24 Demetrius Austin MD [address] [place] [address] Orthopaedic Surgery 06/13/24 Harry Garcia MD [address] [place] [address] Gastroenterology 06/13/24 Jovany Feliciano MD [address] [place] [address] Cardiology 06/13/24 documented as of this encounter
--- OUTSIDE RECORDS SUMMARY | 2024-07-31 11:24 | XMS_ITS | Encounter Summary ---
Author Organization [employer] Address [address] [facility] 7t [place] [address] Care Team Providers Care Migratory Worker Name Role Phone Flora Santiago Primary Care Provider [phone] Sherin Hall RN Unavailable [phone] Juan Jose Deshpande MD Unavailable [phone] Michael Glass MD Unavailable [phone] Demetrius Austin MD Unavailable Harry Garcia MD Unavailable [phone] Jovany Feliciano MD Unavailable Reason for Visit * Reason Onset Date Comments ED Visit 07/21/2024 Encounter Details Date Type Department Care Team ([facility] st Contact Info) Description 07/21/2024 Telephone [facility] CHC MED & PEDS [address] [place], [place] [phone] Flora Santiago FNP 505 [place], [place] [phone] ED Visit Social History Tobacco Use Types [...] 11:22 AM EST TC with patient via multifocal button inspector #[id number]. Pt states he is waiting for [facility] to call him back with [...] Description 08/07/2024 3:00 PM EST Office Visit [facility] ADULT DENTAL [address] [place] [address] Dany, Angelica [address] [place] [address] 08/11/2024 11:30 AM EST Office Visit [facility] CHC MED & PEDS [address] [place], [place] [phone] Flora Santiago FNP [address] [place], [place] [phone] 08/18/2024 9:30 AM EST Medication Management [facility] MEDICINE [address] [place] [address] Kandi Panda, RobertD 230 [place] [address] documented as of this encounter Goals Goal [...] documented as of this encounter Care Teams Migratory Worker Relationship Specialty Start Date End Date Flora Santiago FNP [address] [place] [address] PCP - General Family Medicine 05/02/21 Sherin Hall, RN [address] [place] [address] Stone Polisher Hand Family Medicine 07/30/23 Juan Jose Deshpande MD [address] [place] [address] Nephrology 06/13/24 Michael Glass MD [address] [place] [address] Dr [address] [place] [address] General Surgery 06/13/24 Demetrius Austin MD [address] [place] [address] Orthopaedic Surgery 06/13/24 Harry Garcia MD [address] [place] [address] Gastroenterology 06/13/24 Jovany Feliciano MD [address] [place] [address] Cardiology 06/13/24 documented as of this encounter
--- OUTSIDE RECORDS SUMMARY | 2024-07-31 11:24 | XMS_ITS | Encounter Summary ---
Author Organization [employer] Address [address] [facility] 7t [place] [address] Care Team Providers Care Telecommunications Engineer Name Role Phone Flora Santiago Primary Care Provider [phone] Sherin Hall RN Unavailable [phone] Juan Jose Deshpande MD Unavailable [phone] Michael Glass MD Unavailable [phone] Demetrius Austin MD Unavailable Harry Garcia MD Unavailable [phone] Jovany Feliciano MD Unavailable Reason for Visit * Reason Onset Date Comments Returning Call Back 12/19/2022 Encounter Details Date Type Department Care Team (Late st Contact Info) Description 12/19/2022 Telephone [facility] MEDICINE [address] [place] [address] Flora Santiago FNP [address] [place] [address] Returning Call Back Social History Tobacco Use [...] 08/07/2024 3:00 PM EST Office Visit [facility] ADULT DENTAL [address] [place] [address] Dany Angelica [address] [place] [address] 08/11/2024 11:30 AM EST Office Visit [facility] CHC MED & PEDS 505 [place] [address] Flora Santiago FNP 505 [place] [address] 08/18/2024 9:30 AM EST Medication Management [facility] MEDICINE [address] [place] [address] Kandi Panda, RobertD 230 [place] [address] documented as of this encounter Visit Diagnoses Not on filedocumented in this encounter Care Teams Telecommunications Engineer Relationship Specialty Start Date End Date Flora Santiago FNP [address] [place] [address] PCP - General Family Medicine 05/02/21 Sherin Hall, RN [address] [place] [address] Needle Maker Family Medicine 07/30/23 Juan Jose Deshpande MD [address] [place] [address] Nephrology 06/13/24 Michael Glass MD [address] [place] [address] 3[address] [place] [address] General Surgery 06/13/24 Demetrius Austin MD [address] [place] [address] Orthopaedic Surgery 06/13/24 Harry Garcia MD [address] [place] [address] Gastroenterology 06/13/24 Jovany Feliciano MD [address] [place] [address] Cardiology 06/13/24 documented as of this encounter
--- OUTSIDE RECORDS SUMMARY | 2024-07-31 11:24 | XMS_ITS | Encounter Summary ---
Author Organization [employer] Address [address] [facility] 7t [place] [address] Care Team Providers Care Signal Processing Engineer Name Role Phone Flora Santiago INTAKE NURSE Primary Care Provider [phone] Sherin Hall RN Unavailable Juan Jose Deshpande MD Unavailable [phone] Michael Glass MD Unavailable Demetrius Austin MD Unavailable Harry Garcia MD Unavailable Jovany Feliciano MD Unavailable [phone] Encounter Details Date Type Department Care Team [...] 08/07/2024 3:00 PM EST Office Visit [facility] ADULT DENTAL [address] [place] [address] Adny, Angelica [address] [place] [address] 08/11/2024 11:30 AM EST Office Visit [facility] CHC MED & PEDS 505 [place] [address] Flora Santiago FNP 505 [place] [address] 08/18/2024 9:30 AM EST Medication Management [facility] MEDICINE [address] [place] [address] Kandi Panda, RobertD [address] [place] [address] documented as of this encounter Goals Goal [...] EST Narrative 07/17/2024 6:41 PM EST ? [facility] ?[address] ?[place] [address] ? CT Scan Report ? Signed with Addenda ? Patient: Stanley,Steven ?MR#: [id number] ?? 2 ? : 1965 ?Acct:[id number] ? Age/Sex: 59 / M ?ADM Date: 07/17/24 ? Loc: HO.ED ? Attending Dr: ? Ordering Physician: Oswaldo Villareal ?? Date of Service: 07/17/24 ?? Procedure(s): CT angio chest PE protocol ?? Accession Number(s): [id number] ? cc: Oswaldo Villareal; Flora Santiago INTAKE NURSE ? Report Number: ?? [id number]: Total DLP = ??293.00 mGy-cm ?ADDENDUM ?? [...] ?07/17/240 ? DD/ ? TD/TT: 07/17/248 ? Hot Air Furnace Installer And Repairer: ? Procedure Note Donema, Image - 07/17/[address] [address] [address] Scan Report Signed with Addenda Patient: Robin Stanley#: [id number] 2 : 1965Acct:[id number] Age/Sex: 59 / MADM Date: 07/17/24 Loc: .ED Attending Dr: Ordering Physician: Oswaldo Villareal Date of Service: 07/17/24 Procedure(s): CT angio chest PE protocol Accession Number(s): [id number] cc: Oswaldo Villareal; Flora Santiago [facility] Report Number: [id number]: Total DLP = 293.00 mGy-cm ADDENDUM This [...] in OV> 07/17/241839 DD/ 37 TD/TT: 07/17/241837 Hot Air Furnace Installer And Repairer: [facility] External Provider IMG CT PROCEDURES Edited Result - Final * D Dimer High Sensitivity (07/17/2024 5:20 PM EST) [facility] D Dimer High Sensitivity 284 NG/ML [facility] Comment:D-DIMER HS REFERENCE RANGENote: Our assay [...] Provider LAB BLOOD ORDERAB LES Final Result [facility] [address] [place] [phone] * (ABNORMAL) High Sensitivity Troponin I (07/17/2024 1:19 PM EST) [facility] TROPONIN I HIGH SENSITIVITY 44.5(H) <3.5 - 35.0 ng/L [facility] Comment:The Galeano high sens itivity Troponin-I results should beused in conjunction with other diagnostic information suchas ECG, clinical observations and information, and patientsymptoms to aid in the diagnosis of CO. 07/17/2024 1:19 PM EST 07/17/2024 1:22 PM EST us Generic External Data Provider LAB BLOOD ORDERAB LES Final Result [facility] [address] [facility] [place] [address] [phone] * XR Chest 2 Views (07/17/2024 10:20 AM EST) Anatomical Region Laterality Modality Chest Radiographic Kandace ging 07/17/2024 10:2 0 AM EST Narrative 07/17/2024 11:46 AM EST ? [facility] ?[address] ?[place] [address] ?XRay Report ? Signed ? Patient: Stanley,Steven ?MR#: [id number] ?? 2 ? : 1965 ?Acct:[id number] ? Age/Sex: 59 / M ?ADM Date: 07/17/24 ? Loc: HO.ED ? Attending Dr: ? Ordering Physician: Starr Peralta DO ?? Date of Service: 07/17/24 ?? Procedure(s): XR chest 2V ?? Accession Number(s): [id number] ? cc: Starr Peralta DO; Flora Santiago INTAKE NURSE ? EXAMINATION: ?? XR CHEST ? CLINICAL [...] DD/ 1020 ? TD/TT: 07/17/24 1040 ? Hot Air Furnace Installer And Repairer: MSM ? Procedure Note Donotuseinterpreter, Image - 07/17/[address] [address] XRay Report Signed Patient: Robin Stanley#: [id number] 2 : 1965Acct:[id number] Age/Sex: 59 / MADM Date: 07/17/24 Loc: HO.ED Attending Dr: Ordering Physician: Starr Peralta DO Date of Service: 07/17/24 Procedure(s): XR chest 2V Accession Number(s): [id number] cc: Starr Peralta DO; Flora Santiago INTAKE NURSE EXAMINATION: XR CHEST CLINICAL INFORMATION: pain COMPARISON: [...] 07/17/24 1143 DD/ 1020 TD/TT: 07/17/24 1040 Hot Air Furnace Installer And Repairer: MIGUE us [facility] External Provider IMG XR PROCEDURES Final Result * Lipase (07/17/2024 10:12 AM EST) Lipase 52 8 - 78 U/L [facility] 07/17/2024 10:1 2 AM EST 07/17/2024 10:16 AM EST Generic External Data Provider LAB BLOOD ORDERAB LES Final Result [facility] [address] [place] [phone] * SARS-CoV-2 RNA, Influenza A/B, and RSV RNA, Ql NAAT (07/17/2024 10:12 AM EST) Influenza A PCR NEGATIVE Negative [facility] Influenza B PCR NEGATIVE Negative [facility] Resp Syncy Virus RNA Qual PCR NEGATIVE Negative [facility] SARS COV2 PCR NEGATIVE Negative [facility] Comment:All test results mus t [...] use by authorized laboratories.Testing performed on the [employer] GeneXpert utilizingreal-time RT-PCR.All SARS CoV2 and positive influenza A/B results arereported to [facility]. 07/17/2024 10:1 2 AM EST 07/17/2024 10:16 AM EST us Generic External Data Provider LAB MICROBIOLOGY - GENERAL ORDERABLES Final Result Performing Organization Address [facility]/ZIP Co de Phone Number [facility] [address] [place] [phone] * (ABNORMAL) Magnesium (07/17/2024 10:12 AM EST) Magnesium 1.5(L) 1.6 - 2.6 mg/dL [facility] 07/17/2024 10:1 2 AM EST 07/17/2024 10:16 AM EST Generic External Data Provider LAB BLOOD ORDERAB LES Final Result Performing Organization Address [facility]/ZIP Co de Phone Number [facility] [address] [place] [phone] * (ABNORMAL) Basic Metabolic Panel (07/17/2024 10:12 AM EST) Sodium 141 135 - 145 mmol/L [facility] Potassium 3.6 3.3 - 5.1 mmol/L [facility] Chloride 101 96 - 108 mmol/L [facility] Carbon Dioxide 25 22 - 29 mmol/L [facility] Anion Gap 19 12 - 20 [facility] Urea Nitrogen (BUN) 5(L) 9 - 16 mg/dL [facility] Creatinine, Serum 0.79 0.5 - 1.4 mg/dL [facility] Creatinine Clr Calc Pharmacy 106.3 [facility] Comment:eGFR (calculated fro m the MDRD study equation) and eCrCl(calculated from the Cockcroft-Gault equation) are based ondifferent parameters and may not yield comparable results.If eCrCl result is absurd, please check patient'sheight/weight. Estimated Glomerular Filt Rate >60 [facility] Comment:Chronic Kidney Disea se: Estimated GFR < 60 mL/min/1.02r1Iijbox Kidney Disease: Estimated GFR < 15 mL/min/1.73m2 Glucose 213(H) 60 - 115 mg/dL [facility] Calcium 9.0 8.4 - 10.2 mg/dL [facility] 07/17/2024 10:1 2 AM EST 07/17/2024 10:16 AM EST us Generic External Data Provider LAB BLOOD ORDERAB LES Final Result [facility] [address] [place] [phone] [phone] * (ABNORMAL) Hepatic Function Panel (07/17/2024 10:12 AM EST) Bilirubin, Total 1.0 0.0 - 1.0 mg/dL [facility] Bilirubin, Direct 0.5 0.0 - 0.5 mg/dL [facility] Aspartate Amino Transferase 86(H) 5 - 37 U/L [facility] Alanine Aminotransferase 34 0 - 40 U/L [facility] Total Protein 8.0 6.5 - 8.0 g/dL [facility] Albumin Level 4.0 3.5 - 5.0 g/dL [facility] Alkaline Phosphatase 238(H) 39 - 117 U/L [facility] 07/17/2024 10:1 2 AM EST 07/17/2024 10:16 AM EST Generic External Data Provider LAB BLOOD ORDERAB LES Final Result Performing Organization Address [facility] Co de Phone Number [facility] [address] [place] [phone] * (ABNORMAL) High Sensitivity Troponin I (07/17/2024 10:12 AM EST) Pathologist [facility] TROPONIN I HIGH SENSITIVITY 40.7(H) <3.5 - 35.0 ng/L [facility] Comment:The Galeano high sens itivity Troponin-I results should beused in conjunction with other diagnostic information suchas ECG, clinical observations and information, and patientsymptoms to aid in the diagnosis of CO. 07/17/2024 10:1 2 AM EST 07/17/2024 10:16 AM EST Generic External Data Provider LAB BLOOD ORDERAB LES Final Result Performing Organization Address [facility] Co de Phone Number [facility] [address] [place] [phone] * B Type Natriuretic Peptide (BNP) (07/17/2024 10:12 AM EST) Pathologist [facility] B Type Natriuretic Peptide 89 <100 pg/mL [facility] Comment:For those patients w ho are being treated with Natrecor(nesiritide, recombinant BNP), BNP testing should beperformed at least two hours post treatment in order toensure that only endogenous levels of BNP are detected. 07/17/2024 10:1 2 AM EST 07/17/2024 10:16 AM EST us Generic External Data Provider LAB BLOOD ORDERAB LES Final Result [facility] [address] [place] [address] [phone] * (ABNORMAL) CBC auto differential (07/17/2024 10:12 AM EST) White Blood Count 7.3 4.8 - 10.8 X10*3/uL [facility] Red Blood Count 5.24 4.60 - 5.80 X10*6/uL [facility] Hemoglobin 13.8(L) 14.0 - 18.0 g/dl [facility] Hematocrit 42.6 42.0 - 52.0 % [facility] Mean Corpuscular Volume 81.3 80.0 - 98.0 fL [facility] Mean Corpuscular Hemoglobin 26.3(L) 27.0 - 33.0 pg [facility] Mean Corpuscular HGB Conc 32.4 31.0 - 36.0 g/dl [facility] Red Cell Distribution Width 14.1 11.0 - 16.0 % [facility] Platelet Count 168 160 - 400 X10*3/uL [facility] Mean Platelet Volume 9.3(L) 9.4 - 12.4 fL [facility] Neutrophils Percent Auto 75.6(H) 45 - 73 % [facility] Imm Gran Pct Auto 0.3 0.0 - 0.4 % [facility] Lymphocytes Percent Auto 15.0(L) 20 - 40 % [facility] Monocytes Percent Auto 8.2 2 - 11 % [facility] Eosinophils Percent Auto 0.5 0 - 4 % [facility] Basophils Percent Auto 0.4 0 - 2 % [facility] NRBC Pct Auto 0.0 0.0 - 0.2 /100WBC [facility] Neutrophils Absolute Auto 5.5 2.0 - 8.3 x10*3/uL [facility] Imm Gran Abs Auto 0.02 0.00 - 0.03 X10*3/uL [facility] Lymphocytes Absolute Auto 1.1(L) 1.2 - 4.9 X10*3/uL [facility] Monocytes Absolute Auto 0.6 0.1 - 1.2 X10*3/uL [facility] Eosinophils Absolute Auto 0.0 0.0 - 0.4 X10*3/uL [facility] Basophils Absolute Auto 0.0 0.0 - 0.2 X10*3/uL [facility] NRBC Abs Auto 0.000 0.0 - 0.012 X10*3/uL [facility] 07/17/2024 10:1 2 AM EST 07/17/2024 10:16 AM EST us Generic External Data Provider LAB BLOOD ORDERAB LES Final Result Performing Organization Address City/State/[facility] de Phone Number [facility] [address] [place] [address] [phone] documented in this encounter Visit Diagnoses Not on filedocumented in this encounter Additional Health Concerns Assessment Noted Time PHQ-9 Depression Total Score: 0 11/30/19 11:07 AM EDT documented as of this encounter Care Teams Signal Processing Engineer Relationship Specialty Start Date End Date Flora Santiago FNP [address] [place] [address] PCP - General Family Medicine 05/02/21 Sherin Hall, MICHELLE [address] [place] [address] Equipment Oiler Family Medicine 07/30/23 Juan Jose Deshpande MD [address] [place] [address] Nephrology 06/13/24 Michael Glass MD [address] [place] [address] Dr 3rd [place] [address] General Surgery 06/13/24 Demetrius Austin MD [address] [place] [address] Orthopaedic Surgery 06/13/24 Harry Garcia MD [address] 3rd [place] [address] Gastroenterology 06/13/24 Jovany Feliciano MD [address] 3rd [place] [address] Cardiology 06/13/24 documented as of this encounter
--- OUTSIDE RECORDS SUMMARY | 2024-07-31 11:24 | XMS_ITS | Encounter Summary ---
Author Organization [employer] Address [address] [facility] 7t [place] [address] Care Team Providers Care Senior Analysis Specialist Name Role Phone Flora Santiago DATABASE ADMINISTRATION PROJECT MANAGER Primary Care Provider [phone] Sherin Hall RN Unavailable [phone] Juan Jose Deshpande MD Unavailable [phone] Michael Glass MD Unavailable [phone] Demetrius Austin MD Unavailable Harry Garcia MD Unavailable [phone] Jovany Feliciano MD Unavailable Encounter Details Date Type Department Care Team (Late st Contact Info) Description 10/04/2022 Orders Only [facility] CHC MED & PEDS [address] [place], [place] [phone] Shahnaz Perez LPN Social History Tobacco Use [...] Description 08/07/2024 3:00 PM EST Office Visit [facility] ADULT DENTAL [address] [place], [place] [phone] Angelica Saenz [address] [place], [place] [phone] 08/11/2024 11:30 AM EST Office Visit [facility] CHC MED & PEDS [address] [place] [address] Flora Santiago FNP [address] [place] [address] 08/18/2024 9:30 AM EST Medication Management [facility] MEDICINE [address] [place] [address] Kandi Panda PharmD [address] [place] [address] documented as of this encounter Visit Diagnoses Not on filedocumented in this encounter Care Teams Senior Analysis Specialist Relationship Specialty Start Date End Date Flora Santiago FNP [address] [place] [address] PCP - General Family Medicine 05/02/21 Sherin Hall RN [address] [place] [address] Pretzel Cooker Family Medicine 07/30/23 Juan Jose Deshpande MD [address] [place] [address] Nephrology 06/13/24 Michael Glass MD [address] [place] [address] Dr [address] [place] [address] General Surgery 06/13/24 Demetrius Austin MD [address] [place] [address] Orthopaedic Surgery 06/13/24 Harry Garcia MD [address] [place] [address] Gastroenterology 06/13/24 Jovany Feliciano MD [address] [place] [address] Cardiology 06/13/24 documented as of this encounter
--- OUTSIDE RECORDS SUMMARY | 2024-07-31 11:24 | XMS_ITS | Encounter Summary ---
Author Organization [employer] Address [address] [facility] 7t [place] [address] Care Team Providers Care Home Therapy Clinician Name Role Phone Flora Santiago Primary Care Provider [phone] Sherin Hall RN Unavailable [phone] Juan Jose Deshpande MD Unavailable [phone] Michael Glass MD Unavailable [phone] Demetrius Austin MD Unavailable Harry Garcia MD Unavailable [phone] Jovany Feliciano MD Unavailable [phone] Encounter Details Date Type Department Care Team (Late st Contact Info) Description 02/15/2023 Telephone [facility] MEDICINE [address] [place] [address] Flora Santiago FNP [address] [place] [address] Social History Tobacco Use Types Packs/Day Years [...] call from sarah. Please contact pt at [phone] (French) documented in this encounter Plan of Treatment Upcoming Encounters Date Type Department Care Team (Late st Contact Info) Description 08/07/2024 3:00 PM EST Office Visit [facility] ADULT DENTAL [address] [place] [address] Dany, Angelica [address] [place] [address] 08/11/2024 11:30 AM EST Office Visit [facility] CHC MED & PEDS [address] [place] [address] Flora Santiago FNP [address] [place] [address] 08/18/2024 9:30 AM EST Medication Management [facility] MEDICINE [address] [place] [address] Kandi Panda PharmD [address] [place] [address] documented as of this encounter Visit Diagnoses Not on filedocumented in this encounter Care Teams Home Therapy Clinician Relationship Specialty Start Date End Date Flora Santiago FNP [address] [place] [address] PCP - General Family Medicine 05/02/21 Sherin Hall, RN [address] [place] [address] Coil Finisher Family Medicine 07/30/23 Juan Jose Deshpande MD [address] [place] [address] Drive [address] [place] [address] Nephrology 06/13/24 Michael Glass MD [address] [place] [address] Dr 3rd [place] [address] General Surgery 06/13/24 Demetrius Austin MD [address] [place] [address] Orthopaedic Surgery 06/13/24 Harry Garcia MD [address] 3rd [place] [address] Gastroenterology 06/13/24 Jovany Feliciano MD [address] 3rd [place] [address] Cardiology 06/13/24 documented as of this encounter
--- OUTSIDE RECORDS SUMMARY | 2024-07-31 11:24 | XMS_ITS | Encounter Summary ---
Author Organization [employer] Address [address] [facility] 7t [place] [address] Care Team Providers Care Church Warden Name Role Phone Flora Santiago Primary Care Provider Sherin Hall RN Unavailable [phone] Juan Jose Deshpande MD Unavailable [phone] Michael Glass MD Unavailable [phone] Demetrius Austin MD Unavailable Harry Garcia MD Unavailable [phone] Jovany Feliciano MD Unavailable Reason for Visit * Reason Onset Date Comments ER Follow-up 07/21/2024 Encounter Details Date Type Department Care Team ([facility] st Contact Info) Description 07/21/[address] [facility] CHC MED & PEDS [address] [place], [place] [phone] Flora Santiago FNP [address] [place], [place] [phone] ER Follow-up Social History Tobacco Use Types [...] Center 08/07/2024 3:00 PM Angelica VAZQUEZ DENT [facility] 08/11/2024 11:30 AM CIARRA Josue CHC MED [facility] 08/18/2024 9:30 AM Kandi Panda PharmD MEDICINE [facility] Patient verbalized understanding and denied having any further questions or concerns at this time. Patient to follow up as needed. * Telephone Encounter - Cece Vargas - 07/21/2024 9:51 AM EST Patient calling to report ED visit on : Date: 07/17/24 Hospital: [facility] Seen for: chest pain Symptomatic No *if yes message should go to Triage Patient advised will forward to team nurse for follow up documented in this encounter Plan of Treatment Upcoming Encounters Date Type Department Care Team (Late st Contact Info) Description 08/07/2024 3:00 PM EST Office Visit [facility] ADULT DENTAL [address] [place] [address] Dany, Angelica [address] [place] [address] 08/11/2024 11:30 AM EST Office Visit [facility] CHC MED & PEDS [address] [place] [address] Flora Santiago FNP [address] [place] [address] 08/18/2024 9:30 AM EST Medication Management [facility] MEDICINE [address] [place] [address] Kandi Panda, RobertD [address] [place] [address] documented as of this encounter Goals Goal [...] documented as of this encounter Care Teams Church Warden Relationship Specialty Start Date End Date Flora Santiago FNP [address] [place] [address] PCP - General Family Medicine 05/02/21 Sherin Hall RN [address] [place] [address] Cello Teacher Family Medicine 07/30/23 Juan Jose Deshpande MD [address] [place] [address] Nephrology 06/13/24 Michael Glass MD [address] [place] [address] Dr [address] [place] [address] General Surgery 06/13/24 Demetrius Austin MD [address] [place] [address] Orthopaedic Surgery 06/13/24 Harry Garcia MD [address] [place] [address] Gastroenterology 06/13/24 Jovany Feliciano MD [address] [place] [address] Cardiology 06/13/24 documented as of this encounter
--- OUTSIDE RECORDS SUMMARY | 2024-07-31 11:24 | XMS_ITS | Encounter Summary ---
Author Organization [employer] Address [address] [facility] 7t [place] [address] Care Team Providers Care Reach Truck Operator Name Role Phone Flora Santiago CIARRA Primary Care Provider [phone] Sherin Hall RN Unavailable [phone] Juan Jose Deshpande MD Unavailable [phone] Michael Glass MD Unavailable [phone] Demetrius Austin MD Unavailable Harry Garcia MD Unavailable [phone] Jovany Feliciano MD Unavailable Encounter Details Date Type Department Care Team (Latest Contact Info) Description 01/13/2021 Abstract [facility] CONVERSIONS Dental, Provider, DDS Social History Tobacco [...] Description 08/07/2024 3:00 PM EST Office Visit [facility] ADULT DENTAL [address] [place], [place] [id number] Dany, Angelica [address] [place], [place] [phone] 08/11/2024 11:30 AM EST Office Visit [facility] CHC MED & PEDS [address] [place], [place] [phone] Flora Santiago FNP [address] [place] [address] 08/18/2024 9:30 AM EST Medication Management [facility] MEDICINE [address] [place] [address] Kandi Panda PharmD [address] [place] [address] documented as of this encounter Visit Diagnoses Not on filedocumented in this encounter Care Teams Reach Truck Operator Relationship Specialty Start Date End Date Flora Santiago FNP [address] [place] [address] PCP - General Family Medicine 05/02/21 Sherin Hall, RN [address] [place] [address] Taker Out Family Medicine 07/30/23 Juan Jose Deshpande MD [address] [place] [address] Nephrology 06/13/24 Michael Glass MD [address] [place] [address] Dr [address] [place] [address] General Surgery 06/13/24 Demetrius Austin MD [address] [place] [address] Orthopaedic Surgery 06/13/24 Harry Garcia MD [address] [address] Gastroenterology 06/13/24 Jovany Feliciano MD [address] [address] Cardiology 06/13/24 documented as of this encounter
--- OUTSIDE RECORDS SUMMARY | 2024-07-31 11:24 | XMS_ITS | Encounter Summary ---
Author Organization [employer] Address [address] [facility] 7t [place] [address] Care Team Providers Care Bilingual Elementary School Teacher Name Role Phone Flora Santiago SOCIAL MEDIA SR STRATEGY MANAGER Primary Care Provider [phone] Sherin Hall RN Unavailable [phone] Juan Jose Deshpande MD Unavailable [phone] Michael Glass MD Unavailable [phone] Demetrius Austin MD Unavailable Harry Garcia MD Unavailable [phone] Jovany Feliciaon MD Unavailable [phone] Encounter Details Date Type Department Care Team (Late st Contact Info) Description 07/14/2022 Orders Only [facility] CHC MED & PEDS [address] [place] [address] Shahnaz Perez LPN Social History Tobacco Use [...] Description 08/07/2024 3:00 PM EST Office Visit [facility] ADULT DENTAL [address] [place] [address] Dany, Angelica [address] [place] [address] 08/11/2024 11:30 AM EST Office Visit [facility] CHC MED & PEDS [address] [place] [address] Flora Santiago FNP [address] [place] [address] 08/18/2024 9:30 AM EST Medication Management [facility] MEDICINE [address] [place] [address] Kandi Panda PharmD [address] [place] [address] documented as of this encounter Visit Diagnoses Not on filedocumented in this encounter Care Teams Bilingual [employer] Teacher Relationship Specialty Start Date End Date Flora Santiago FNP [address] [place] [address] PCP - General Family Medicine 05/02/21 Sherin Hall, RN [address] [place] [address] Digital Sales Manager Family Medicine 07/30/23 Juan Jose Deshpande MD [address] [place] [address] Nephrology 06/13/24 Michael Glass MD [address] [place] [address] Dr 3[address] [place] [address] General Surgery 06/13/24 Demetrius Austin MD [address] [place] [address] Orthopaedic Surgery 06/13/24 Harry Garcia MD [address] 3rd [place] [address] Gastroenterology 06/13/24 Jovany Feliciano MD [address] 3rd Floor [place] [address] Cardiology 06/13/24 documented as of this encounter
--- OUTSIDE RECORDS SUMMARY | 2024-07-31 11:24 | XMS_ITS | Encounter Summary ---
Author Organization [facility] [employer] Address [address] [facility] [address] 7t [place] [address] Care Team Providers Care Pump House Engineer Name Role Phone Flora Santiago GROUP HOME SUPERVISOR Primary Care Provider [phone] Sherin Hall RN Unavailable [phone] Juan Jose Deshpande MD Unavailable [phone] Michael Glass MD Unavailable [phone] Demetrius Austin MD Unavailable Harry Garcia MD Unavailable [phone] Jovany Feliciano MD Unavailable [phone] Encounter Details Date Type Department Care Team (Late st Contact Info) Description 05/25/2023 Abstract [facility] MEDICINE [address] [place], [place] [phone] Debi Zamora Social History Tobacco Use Types [...] Description 08/07/2024 3:00 PM EST Office Visit [facility] ADULT DENTAL [address] [place] [address] Dany, Angelica [address] [place] [address] 08/11/2024 11:30 AM EST Office Visit [facility] CHC MED & PEDS [address] [place] [address] Flora Santiago, GROUP HOME SUPERVISOR [address] [place] [address] 08/18/2024 9:30 AM EST Medication Management [facility] MEDICINE [address] [place] [address] Kandi Panda, PharmD [address] [place] [address] documented as of this encounter Procedures Procedure Name Priority Date/Time Associated Diagnosis Comments COLONOSCOPY Routine 03/17/2021 documented in this encounter Results * Colonoscopy (03/17/2021) Colonoscopy Normal Normal Narrative Debi Zamora - 03/17/2021 Repeat in 5 years tubular adenoma us Historical Provider HEALTH MAINTENANCE Final Result documented in this encounter Visit Diagnoses Not on filedocumented in this encounter Care Teams Pump House Engineer Relationship Specialty Start Date End Date Flora Santiago FNP [address] [place] [address] PCP - General Family Medicine 05/02/21 Sherin Hall, RN [address] [place] [address] Battery Mechanic Family Medicine 07/30/23 Juan Jose Deshpande MD [address] [place] [address] Nephrology 06/13/24 Michael Glass MD [address] [place] [address] Dr [address] [place] [address] General Surgery 06/13/24 Demetrius Austin MD [address] [place] [address] Orthopaedic Surgery 06/13/24 Harry Garcia MD [address] [place] [address] Gastroenterology 06/13/24 Jovany Feliciano MD [address] [address] Cardiology 06/13/24 documented as of this encounter
== END 2024-07-31 10:14 | disposition home or self-care (01) ==
PROVIDERS: PCP Registered Nurse; Visit Provider Internal Medicine Hypertension Specialist
DX: R31.9 Hematuria, unspecified (principal); I10 Essential (primary) hypertension; R80.9 Proteinuria, unspecified; E87.1 Hypo-osmolality and hyponatremia; N18.31 Chronic kidney disease, stage 3a
CPT/HCPCS: 99214

== ENCOUNTER → 2024-07-31 09:54 | Outpatient (BNVA) | payer MEDICAID, SELFPAY | PROVIDERS: PCP Registered Nurse; Visit Provider Internal Medicine Hypertension Specialist | DX: I12.9 Hypertensive chronic kidney disease with stage 1 through stage 4 chronic kidney disease, or unspecified chronic kidney disease (principal); N18.31 Chronic kidney disease, stage 3a; R31.9 Hematuria, unspecified; R80.9 Proteinuria, unspecified; E87.1 Hypo-osmolality and hyponatremia | CPT/HCPCS: 99212 ==

== ENCOUNTER 2024-08-13 11:29 | Outpatient (REF) | payer MEDICAID, SELFPAY ==
[2024-08-13 11:50] LABS: MANUAL DIFF FLAG NO
[2024-08-13 12:39] LABS: Basophils Percent Auto 0.4 % (0-2); Eosinophils Absolute Auto 0.1 X10*3/uL (0.0-0.4); Eosinophils Percent Auto 0.5 % (0-4); Hematocrit 42.3 % (42.0-52.0); Imm Gran Abs Auto 0.04 X10*3/uL (0.00-0.03); Imm Gran Pct Auto 0.4 % (0.0-0.4); Lymphocytes Absolute Auto 1.3 X10*3/uL (1.2-4.9); Lymphocytes Percent Auto 11.1 % (20-40); Mean Corpuscular HGB Conc 33.1 g/dl (31.0-36.0); Mean Corpuscular Hemoglobin 26.9 pg (27.0-33.0); Mean Corpuscular Volume 81.2 fL (80.0-98.0); Mean Platelet Volume 10.2 fL (9.4-12.4); Monocytes Percent Auto 9.2 % (2-11); Neutrophils Absolute Auto 8.9 x10*3/uL (2.0-8.3); Neutrophils Percent Auto 78.4 % (45-73); Platelet Count 212 X10*3/uL (160-400); Red Blood Count 5.21 X10*6/uL (4.60-5.80); Red Cell Distribution Width 13.9 % (11.0-16.0); White Blood Count 11.4 X10*3/uL (4.8-10.8)
[2024-08-13 12:40] LABS: Appearance Urine Clear; Color Urine Yellow; Glucose Urine UA >=1000 mg/dL (Negative); Leukocyte Esterase Urine Negative (Negative); Nitrite Urine Negative (Negative); PH 5.5 (5.0-9.0); Specific Gravity - Urine 1.025 (1.005-1.025); UMIC TRIGGER UA YES; Urine Blood Moderate (2+) (Negative); Urine Ketones Negative (Negative); Urine Protein Trace mg/dL (Neg-Trace)
[2024-08-13 12:43] LABS: Bacteria Urine None Seen (None Seen); Hyaline Casts Urine 0-2 /LPF (0-2); Squamous Epithelial Cell Urine 0-2 /HPF (0-2); WBC Urine 0-5 /HPF (0-5)
[2024-08-13 13:07] LABS: Alanine Aminotransferase 19 U/L (0-40); Albumin Level 4.4 g/dL (3.5-5.0); Alkaline Phosphatase 167 U/L (39-117); Anion Gap 17 (12-20); Aspartate Amino Transferase 32 U/L (5-37); Bilirubin Direct 0.5 mg/dL (0.0-0.5); Bilirubin Total 1.2 mg/dL (0.0-1.0); Blood Urea Nitrogen 17 mg/dL (9-16); Calcium 9.8 mg/dL (8.4-10.2); Carbon Dioxide 23 mmol/L (22-29); Chloride 98 mmol/L (96-108); Estimated Glomerular Filt Rate > 60; Glucose Random 296 mg/dL (60-115); Potassium 4.9 mmol/L (3.3-5.1); Sodium 133 mmol/L (135-145); Total Protein 9.1 g/dL (6.5-8.0)
--- OUTSIDE RECORDS SUMMARY | 2024-08-13 13:23 | XMS_ITS | Encounter Summary ---
Author Organization [email or web address] Address [address] [facility] 7t [place] [address] Care Team Providers Care Franchise Specialist Name Role Phone Flora Santiago CIARRA Primary Care Provider [phone] Sherin Hall RN Unavailable [phone] Juan Jose Deshpande MD Unavailable [phone] Michael Glass MD Unavailable [phone] Demetrius Austin MD Unavailable Harry Garcia MD Unavailable [phone] Jovany Feliciano MD Unavailable Encounter Details Date Type Department Care Team (Late st Contact Info) Description 02/22/2023 Orders Only [facility] MEDICINE [address] [place] [address] Yanique Hart MD [address] [place], [place] [phone] Other ascites (Primary Dx) Social History Tobacco [...] Care Team (Late st Contact Info) Description 08/18/2024 9:30 AM EST Medication Management [facility] MEDICINE [address] [place] [address] Kandi Panda PharmD [address] [place] [address] Scheduled Orders Name Type Priority Associated Diagnoses [...] Primary documented in this encounter Care Teams Franchise Specialist Relationship Specialty Start Date End Date Flora Santiago FNP [address] [place] [address] PCP - General Family Medicine 05/02/21 Sherin Hall, RN [address] [place] [address] Professor Of French Family Medicine 07/30/23 Juan Jose Deshpande MD [address] [place] [address] Nephrology 06/13/24 Michael Glass MD [address] [place] [address] Dr 3rd [place] [address] General Surgery 06/13/24 Demetrius Austin MD [address] [place] [address] Orthopaedic Surgery 06/13/24 Harry Garcia MD [address] 3rd [place] [address] Gastroenterology 06/13/24 Jovany Feliciano MD [address] 3rd Floor [place] [address] Cardiology 06/13/24 documented as of this encounter
--- OUTSIDE RECORDS SUMMARY | 2024-08-13 13:23 | XMS_ITS | Encounter Summary ---
Author Organization [employer] Address [address] [facility] 7t [place] [address] Care Team Providers Care Marine Engine Machinist Apprentice Name Role Phone Flora Santiago Primary Care Provider [phone] Sherin Hall RN Unavailable [phone] Juan Jose Deshpande MD Unavailable [phone] Michael Glass MD Unavailable [phone] Demetrius Austin MD Unavailable Harry Garcia MD Unavailable [phone] Jovany Feliciano MD Unavailable Reason for Visit * Reason Onset Date Comments ER Follow-up 12/19/2022 Encounter Details Date Type Department Care Team (Late st Contact Info) Description 12/19/2022 Telephone [facility] MEDICINE [address] [place] [address] Flora Santiago FNP [address] [place], [place] [phone] ER Follow-up Social History Tobacco Use Types [...] - 12/20/2022 12:22 PM EDT T/C to [phone] through [employer] id - [id number] to schedule HDF , No answer. LVM to call back on [phone]. * Telephone Encounter - Elizabeth Call - 12/19/2022 3:14 PM EDT Tc from pt requesting a HDF appt. Pt was admitted at [facility] [place] 12[place]22 and discharged on 12/10/22 due to hernia by belly button, lower back pain, liver and left hip pain. Patient advised will forward to team documented in this encounter Plan of Treatment Upcoming Encounters Date Type Department Care Team (Late st Contact Info) Description 08/18/2024 9:30 AM EST Medication Management [facility] MEDICINE [address] [place] [address] Kandi Panda PharmD [address] [place] [address] documented as of this encounter Visit Diagnoses Not on filedocumented in this encounter Care Teams Marine Engine Machinist Apprentice Relationship Specialty Start Date End Date Flora Santiago FNP [address] [place] [address] PCP - General Family Medicine 05/02/21 Sherin Hall, RN [address] [place] [address] Construction Director Family Medicine 07/30/23 Juan Jose Deshpande MD [address] [place] [address] Nephrology 06/13/24 Michael Glass MD [address] [place] [address] [address] [place] [address] General Surgery 06/13/24 Demetrius Austin MD [address] [place] [address] Orthopaedic Surgery 06/13/24 Harry Garcia MD [address] [address] Gastroenterology 06/13/24 Jovany Feliciano MD [address] [address] Cardiology 06/13/24 documented as of this encounter
--- OUTSIDE RECORDS SUMMARY | 2024-08-13 13:23 | XMS_ITS | Encounter Summary ---
Author Organization [employer] Address [address] [facility] 7t [place] [address] Care Team Providers Care Southeast Regional Sales Manager Name Role Phone Flora Santiago SOFTWARE SYSTEMS ANALYST Primary Care Provider [phone] Sherin Hall RN Unavailable [phone] Juan Jose Deshpande MD Unavailable [phone] Michael Glass MD Unavailable [phone] Demetrius [place] MD Unavailable Harry Garcia MD Unavailable [phone] Jovany Feliciano MD Unavailable [phone] Encounter Details Date Type Department Care Team [...] Description 08/18/2024 9:30 AM EST Medication Management [facility] MEDICINE [address] [place] [address] Kandi Panda, PharmD 230 [place] [address] documented as of this encounter Goals Goal [...] EST Narrative 07/17/2024 6:41 PM EST ? [facility] ?[address] ?[place] [address] ? CT Scan Report ? Signed with Addenda ? Patient: Stanley,Steven ?MR#: [id number] ?? 2 ? : 1965 ?Acct:[id number] ? Age/Sex: 59 / M ?ADM Date: 01/09/25 ? Loc: HO.ED ? Attending Dr: ? Ordering Physician: Oswaldo Villareal ?? Date of Service: 07/17/24 ?? Procedure(s): CT angio chest PE protocol ?? Accession Number(s): [id number] ? cc: Oswaldo Villareal; Flora Santiago SOFTWARE SYSTEMS ANALYST ? Report Number: ?? [id number]: Total DLP = ??293.00 mGy-cm ?ADDENDUM ?? [...] signed by Jonathan Chawla MD in OV> ?07/17/246 ?? Addendum Cosigned By: ? DD/ /02/1838 [...] by Jonathan Chawla MD in OV> ?07/17/24 1840 ? DD/ 1838 ? TD/TT: 07/17/24 1838 ? Simonizer: ? Procedure Note Sarah Heller - 07/17/[address] [address] [address] Scan Report Signed with Addenda Patient: Robin Stanley#: [id number] 2 : 1965Acct:[id number] Age/Sex: 59 / MADM Date: 07/17/24 Loc: HO.ED Attending Dr: Ordering Physician: Oswaldo Villareal Date of Service: 07/17/24 Procedure(s): CT angio chest PE protocol Accession Number(s): [id number] cc: Oswaldo Villareal; Flora Santiago [facility] Report Number: [id number]: Total DLP = 293.00 mGy-cm ADDENDUM This document has been electronically signed by: Jonathan Chawla MD on 07/17/2024 18:38:51 ADDENDUM: Receipt of this report by the clinical staff was confirmed with PAVAN Fishre on Jul 17, 2024 18:54:00 EST. This [...] MD in OV> 07/17/241839 DD/ 37 TD/TT: 01/09/25 1838 Simonizer: [facility] External Provider IMG CT PROCEDURES Edited Result - Final * D Dimer High Sensitivity (07/17/2024 5:20 PM EST) Pathologist [facility] D Dimer High Sensitivity 284 NG/ML [facility] Comment:D-DIMER HS REFERENCE RANGENote: Our [...] Final Result Performing Organization Address [facility] de Phone Number [facility] [address] [place] [phone] * (ABNORMAL) High Sensitivity Troponin I (07/17/2024 1:19 PM EST) Pathologist [facility] TROPONIN I HIGH SENSITIVITY 44.5(H) <3.5 - 35.0 ng/L [facility] Comment:The Agleano high sens itivity Troponin-I results should beused in conjunction with other diagnostic information suchas ECG, clinical observations and information, and patientsymptoms to aid in the diagnosis of ME. 07/17/2024 1:19 PM EST 07/17/2024 1:22 PM EST Generic External Data Provider LAB BLOOD ORDERAB LES Final Result Performing Organization Address [facility] de Phone Number [facility] [address] [place] [phone] * XR Chest 2 Views (07/17/2024 10:20 AM EST) Anatomical Region Laterality Modality Chest Radiographic Kandace ging 07/17/2024 10:2 0 AM EST Narrative 07/17/2024 11:46 AM EST ? [facility] ?[address] ?[place] [address] ?XRay Report ? Signed ? Patient: Stanley,Steven ?MR#: [id number] ?? 2 ? : 1965 ?Acct:[id number] ? Age/Sex: 59 / M ?ADM Date: 07/17/24 ? Loc: HO.ED ? Attending Dr: ? Ordering Physician: Starr Peralta DO ?? Date of Service: 07/17/24 ?? Procedure(s): XR chest 2V ?? Accession Number(s): [id number] ? cc: Starr Peralta DO; Flora Santiago SOFTWARE SYSTEMS ANALYST ? EXAMINATION: ?? XR CHEST ? CLINICAL [...] 11:43 AM EST RP ? Dictated By: ?José Miguel Art MD ? Signed By: ?<Electronically signed by José Miguel Art MD in OV> ?07/17/24 1143 ? DD/ 1020 ? TD/TT: 07/17/24 1040 ? Simonizer: MSM ? Procedure Note Pina, Image - 07/17/[address] [address] XRay Report Signed Patient: Robin Stanley#: [id number] 2 : 1965Acct:[id number] Age/Sex: 59 / MADM Date: 07/17/24 Loc: HO.ED Attending Dr: Ordering Physician: Starr Peralta DO Date of Service: 07/17/24 Procedure(s): XR chest 2V Accession Number(s): [id number] cc: Starr Peralta DO; Flora Santiago SOFTWARE SYSTEMS ANALYST EXAMINATION: XR CHEST CLINICAL INFORMATION: pain COMPARISON: [...] Miguel Art MD 07/17/2024 11:43 AM EST RP Dictated By: José Miguel Art MD Signed By: <Electronically signed by José Miguel Art MD in OV> 07/17/24 1143 DD/ 1020 TD/TT: 07/17/24 1040 Simonizer: MIGUE [facility] External Provider IMG XR PROCEDURES Final Result * Lipase (07/17/2024 10:12 AM EST) Lipase 52 8 - 78 U/L [facility] 07/17/2024 10:1 2 AM EST 07/17/2024 10:16 AM EST Generic External Data Provider LAB BLOOD ORDERAB LES Final Result [facility] [address] [place] [phone] * SARS-CoV-2 RNA, Influenza A/B, and RSV RNA, Ql NAAT (07/17/2024 10:12 AM EST) Influenza A PCR NEGATIVE Negative [facility] Influenza B PCR NEGATIVE Negative [facility] Resp Syncy Virus RNA Qual PCR NEGATIVE Negative [facility] SARS COV2 PCR NEGATIVE Negative [facility] Comment:All test results mus t [...] use by authorized laboratories.Testing performed on the [employer] GeneXpert utilizingreal-time RT-PCR.All SARS CoV2 and positive influenza A/B results arereported to [facility]. 07/17/2024 10:1 2 AM EST 07/17/2024 10:16 AM EST Generic External Data Provider LAB MICROBIOLOGY - GENERAL ORDERABLES Final Result Performing Organization Address [facility]/ZIP Co de Phone Number [facility] [address] [place] [phone] * (ABNORMAL) Magnesium (07/17/2024 10:12 AM EST) Pathologist [facility] Magnesium 1.5(L) 1.6 - 2.6 mg/dL [facility] 07/17/2024 10:1 2 AM EST 07/17/2024 10:16 AM EST Generic External Data Provider LAB BLOOD ORDERAB LES Final Result Performing Organization Address [facility]/ZIP Co de Phone Number [facility] [address] [place] [phone] * (ABNORMAL) Basic Metabolic Panel (07/17/2024 10:12 AM EST) Sodium 141 135 - 145 mmol/L [facility] Potassium 3.6 3.3 - 5.1 mmol/L [facility] Chloride 101 96 - 108 mmol/L [facility] Carbon Dioxide 25 22 - 29 mmol/L [facility] Anion Gap 19 12 - 20 [facility] Urea Nitrogen (BUN) 5(L) 9 - 16 mg/dL [facility] Creatinine, Serum 0.79 0.5 - 1.4 mg/dL [facility] Creatinine Clr Calc Pharmacy 106.3 [facility] Comment:eGFR (calculated fro m the MDRD study equation) and eCrCl(calculated from the Cockcroft-Gault equation) are based ondifferent parameters and may not yield comparable results.If eCrCl result is absurd, please check patient'sheight/weight. Estimated Glomerular Filt Rate >60 [facility] Comment:Chronic Kidney Disea se: Estimated GFR < 60 mL/min/1.45o9Ndadve Kidney Disease: Estimated GFR < 15 mL/min/1.73m2 Glucose 213(H) 60 - 115 mg/dL [facility] Calcium 9.0 8.4 - 10.2 mg/dL [facility] 07/17/2024 10:1 2 AM EST 07/17/2024 10:16 AM EST us Generic External Data Provider LAB BLOOD ORDERAB LES Final Result [facility] [address] [place] [address] [phone] * (ABNORMAL) Hepatic Function Panel (07/17/2024 10:12 AM EST) Bilirubin, Total 1.0 0.0 - 1.0 mg/dL [facility] Bilirubin, Direct 0.5 0.0 - 0.5 mg/dL [facility] Aspartate Amino Transferase 86(H) 5 - 37 U/L [facility] Alanine Aminotransferase 34 0 - 40 U/L [facility] Total Protein 8.0 6.5 - 8.0 g/dL [facility] Albumin Level 4.0 3.5 - 5.0 g/dL [facility] Alkaline Phosphatase 238(H) 39 - 117 U/L [facility] 07/17/2024 10:1 2 AM EST 07/17/2024 10:16 AM EST us Generic External Data Provider LAB BLOOD ORDERAB LES Final Result Performing Organization Address [facility] Co de Phone Number [facility] [address] [place] [phone] * (ABNORMAL) High Sensitivity Troponin I (07/17/2024 10:12 AM EST) [facility] TROPONIN I HIGH SENSITIVITY 40.7(H) <3.5 - 35.0 ng/L [facility] Comment:The Galeano high sens itivity Troponin-I results should beused in conjunction with other diagnostic information suchas ECG, clinical observations and information, and patientsymptoms to aid in the diagnosis of ME. 07/17/2024 10:1 2 AM EST 07/17/2024 10:16 AM EST Generic External Data Provider LAB BLOOD ORDERAB LES Final Result Performing Organization Address [facility] Phone Number [facility] [address] [place] [phone] * B Type Natriuretic Peptide (BNP) (07/17/2024 10:12 AM EST) [facility] B Type Natriuretic Peptide 89 <100 pg/mL [facility] Comment:For those patients w ho are being treated with Natrecor(nesiritide, recombinant BNP), BNP testing should beperformed at least two hours post treatment in order toensure that only endogenous levels of BNP are detected. 07/17/2024 10:1 2 AM EST 07/17/2024 10:16 AM EST Generic External Data Provider LAB BLOOD ORDERAB LES Final Result Performing Organization Address [facility] Co de Phone Number [facility] [address] [place] [phone] * (ABNORMAL) CBC auto differential (07/17/2024 10:12 AM EST) [facility] White Blood Count 7.3 4.8 - 10.8 X10*3/uL [facility] Red Blood Count 5.24 4.60 - 5.80 X10*6/uL [facility] Hemoglobin 13.8(L) 14.0 - 18.0 g/dl [facility] Hematocrit 42.6 42.0 - 52.0 % [facility] Mean Corpuscular Volume 81.3 80.0 - 98.0 fL [facility] Mean Corpuscular Hemoglobin 26.3(L) 27.0 - 33.0 pg [facility] Mean Corpuscular HGB Conc 32.4 31.0 - 36.0 g/dl [facility] Red Cell Distribution Width 14.1 11.0 - 16.0 % [facility] Platelet Count 168 160 - 400 X10*3/uL [facility] Mean Platelet Volume 9.3(L) 9.4 - 12.4 fL [facility] Neutrophils Percent Auto 75.6(H) 45 - 73 % [facility] Imm Gran Pct Auto 0.3 0.0 - 0.4 % [facility] Lymphocytes Percent Auto 15.0(L) 20 - 40 % [facility] Monocytes Percent Auto 8.2 2 - 11 % [facility] Eosinophils Percent Auto 0.5 0 - 4 % [facility] Basophils Percent Auto 0.4 0 - 2 % [facility] NRBC Pct Auto 0.0 0.0 - 0.2 /100WBC [facility] Neutrophils Absolute Auto 5.5 2.0 - 8.3 x10*3/uL [facility] Imm Gran Abs Auto 0.02 0.00 - 0.03 X10*3/uL [facility] Lymphocytes Absolute Auto 1.1(L) 1.2 - 4.9 X10*3/uL [facility] Monocytes Absolute Auto 0.6 0.1 - 1.2 X10*3/uL [facility] Eosinophils Absolute Auto 0.0 0.0 - 0.4 X10*3/uL [facility] Basophils Absolute Auto 0.0 0.0 - 0.2 X10*3/uL [facility] NRBC Abs Auto 0.000 0.0 - 0.012 X10*3/uL [facility] 07/17/2024 10:1 2 AM EST 07/17/2024 10:16 AM EST us Generic External Data Provider LAB BLOOD ORDERAB LES Final Result [facility] [address] [place] [address] [phone] documented in this encounter Visit Diagnoses Not on filedocumented in this encounter Additional Health Concerns Assessment Noted Time PHQ-9 Depression Total Score: 0 11/30/19 11:07 AM EDT documented as of this encounter Care Teams Southeast Regional Sales Manager Relationship Specialty Start Date End Date Flora Santiago FNP [address] [place] [address] PCP - General Family Medicine 05/02/21 Sherin Hall, MICHELLE [address] [place] [phone] Hat Conditioner Family Medicine 07/30/23 Juan Jose Deshpande MD [address] [place] [address] Nephrology 06/13/24 Michael Glass MD [address] [place] [address] Dr [address] [place] [address] General Surgery 06/13/24 Demetrius [place] MD [address] [place] [address] Orthopaedic Surgery 06/13/24 Harry Garcia MD [address] [address] Gastroenterology 06/13/24 Jovany Feliciano MD [address] [facility] [address] [place] [address] Cardiology 06/13/24 documented as of this encounter
--- OUTSIDE RECORDS SUMMARY | 2024-08-13 13:23 | XMS_ITS | Encounter Summary ---
Author Organization [employer] Address [address] [facility] 7t [place] [address] Care Team Providers Care Supervisor Litharge Name Role Phone Flora Santiago Primary Care Provider [phone] Sherin Hall RN Unavailable [phone] Juan Jose Deshpande MD Unavailable [phone] Michael Glass MD Unavailable [phone] Demetrius [place] MD Unavailable Harry Garcia MD Unavailable [phone] Jovany Feliciano MD Unavailable [phone] Reason for Visit * Reason Onset Date Comments Returning Call Back 12/19/2022 Encounter Details Date Type Department Care Team (Late st Contact Info) Description 12/19/2022 Telephone [facility] MEDICINE [address] [place] [address] Flora Santiago FNP [address] [place] [address] Returning Call Back Social History Tobacco Use [...] Description 08/18/2024 9:30 AM EST Medication Management [facility] MEDICINE [address] [place] [address] Kandi Panda PharmD [address] [place] [address] documented as of this encounter Visit Diagnoses Not on filedocumented in this encounter Care Teams Supervisor Litharge Relationship Specialty Start Date End Date Flora Santiago FNP [address] [place] [address] PCP - General Family Medicine 05/02/21 Sherin Hall, RN [address] [place] [address] Learning Disabilities Resource Teacher Family Medicine 07/30/23 Juan Jose Deshpande MD [address] [place] [address] Nephrology 06/13/24 Michael Glass MD [address] [place] [address] Dr [address] [place] [address] General Surgery 06/13/24 Demetrius [place] MD [address] [place] [address] Orthopaedic Surgery 06/13/24 Harry Garcia MD [address] 3rd [place] [address] Gastroenterology 06/13/24 Jovany Feliciano MD [address] 3rd [place] [address] Cardiology 06/13/24 documented as of this encounter
--- OUTSIDE RECORDS SUMMARY | 2024-08-13 13:23 | XMS_ITS | Encounter Summary ---
Author Organization [employer] Address [address] [facility] [address] 7t [place] [address] Care Team Providers Care Network Project Manager Name Role Phone Flora Santiago SUPERVISOR DRAWING Primary Care Provider [phone] Sherin Hall RN Unavailable [phone] Juan Jose Deshpande MD Unavailable [phone] Michael Glass MD Unavailable [phone] Demetrius [place] MD Unavailable Harry Garcia MD Unavailable [phone] Jovany Feliciano MD Unavailable [phone] Encounter Details Date Type Department Care Team (Late st Contact Info) Description 05/25/2023 Abstract [facility] MEDICINE [address] [place], [place] [phone] Debi Zamora Social History Tobacco Use Types [...] Description 08/18/2024 9:30 AM EST Medication Management [facility] MED[facility] [address] [place] [address] Kandi Panda PharmD [address] [place] [address] documented as of this encounter Procedures Procedure Name Priority Date/Time Associated Diagnosis Comments COLONOSCOPY Routine 03/17/2021 documented in this encounter Results * Colonoscopy (03/17/2021) Colonoscopy Normal Normal Narrative Debi Zamora - 03/17/2021 Repeat in 5 years tubular adenoma Historical Provider HEALTH MAINTENANCE Final Result documented in this encounter Visit Diagnoses Not on filedocumented in this encounter Care Teams Network Project Manager Relationship Specialty Start Date End Date Flora Santiago FNP [address] [place] [address] PCP - General Family Medicine 05/02/21 Sherin Hall, RN [address] [place] [address] Neurology Physician Family Medicine 07/30/23 Juan Jose Deshpande MD [address] [place] [address] Nephrology 06/13/24 Michael Glass MD [address] [place] [address] [address] [place] [address] General Surgery 06/13/24 Demetrius [place] MD [address] [place] [address] Orthopaedic Surgery 06/13/24 Harry Garcia MD [address] [facility] [place] [address] Gastroenterology 06/13/24 Jovany Feliciano MD [address] [place] [address] Cardiology 06/13/24 documented as of this encounter
--- OUTSIDE RECORDS SUMMARY | 2024-08-13 13:23 | XMS_ITS | Encounter Summary ---
Author Organization [employer] Address [address] [facility] 7t [place] [address] Care Team Providers Care Director Content Marketing Name Role Phone Flora Santiago Primary Care Provider [phone] Sherin Hall RN Unavailable [phone] Juan Jose Deshpande MD Unavailable [phone] Michael Glass MD Unavailable [phone] Demetrius [place] MD Unavailable Harry Garcia MD Unavailable [phone] Jovany Feliciano MD Unavailable [phone] Encounter Details Date Type Department Care Team (Late st Contact Info) Description 04/30/2024 Telephone [facility] MEDICINE [address] [place] [address] Flora Santiago FNP [address] [place], [place] [phone] Social History Tobacco Use Types Packs/Day Years [...] Medication Management [facility] [address] [place] [address] Kandi Panda, PharmD [address] [place] [address] documented as of this encounter Goals Goal Patient Goal Type Associated Problems Recent Progress Patient-Stated? Author Blood Pressure < 140/90 Blood Pressure 139/82(2023 8:57 AM EST) Jose Maria Oorzco Hemoglobin A1c < 7 Result Component 7.6( 9:20 AM EST) Jose Maria Orozco documented as of this encounter Visit Diagnoses Not on filedocumented in this encounter Additional Health Concerns Assessment Noted Time PHQ-9 Depression Total Score: 0 11/30/19 24 11:07 AM EDT documented as of this encounter Care Teams Director Content Marketing Relationship Specialty Start Date End Date Flora Santiago FNP [address] [place] [address] PCP - General Family Medicine 05/02/21 Sherin Hall, RN [address] [place] [address] Estimator Project Manager Family Medicine 07/30/23 Juan Jose Deshpande MD [address] [place] [address] Nephrology 06/13/24 Michael Glass MD [address] [place] [address] Dr [address] [place] [address] General Surgery 06/13/[address] [place] MD [address] [place] [address] Orthopaedic Surgery 06/13/24 Harry Garcia MD [address] [place] [address] Gastroenterology 06/13/24 Jovany Feliciano MD [address] [place] [address] Cardiology 06/13/24 documented as of this encounter
--- OUTSIDE RECORDS SUMMARY | 2024-08-13 13:23 | XMS_ITS | Clinical Summary ---
Author Organization [facility] Address [address] [place] [address] Phone Care Team Providers Care Rail Project Engineer Name Role Phone Unavailable Primary Care Provider [...] 08/09/2020 Influenza Vaccine (#1) 2024 Insurance [place]
--- OUTSIDE RECORDS SUMMARY | 2024-08-13 13:23 | XMS_ITS | Encounter Summary ---
Author Organization [employer] Address [address] [facility] 7t [place] [address] Care Team Providers Care Hydroelectric Systems Technician Name Role Phone Flora Santiago Primary Care Provider [phone] Sherin Hall RN Unavailable [phone] Juan Jose Deshpande MD Unavailable [phone] Michael Glass MD Unavailable [phone] Demetrius [place] MD Unavailable Harry Garcia MD Unavailable [phone] Jovany Feliciano MD Unavailable Encounter Details Date Type Department Care Team (Late st Contact Info) Description 02/15/2023 Telephone [facility] [address] [place] [address] Flora Santiago FNP [address] [place] [address] Social History Tobacco Use Types Packs/Day Years [...] call from sarah. Please contact pt at [phone] (Japanese) documented in this encounter Plan of Treatment Upcoming Encounters Date Type Department Care Team (Late st Contact Info) Description 08/18/2024 9:30 AM EST Medication Management [facility] [address] [place] [address] Kandi Panda PharmD [address] [place] [address] documented as of this encounter Visit Diagnoses Not on filedocumented in this encounter Care Teams Hydroelectric Systems Technician Relationship Specialty Start Date End Date Flora Santiago FNP [address] [place] [address] PCP - General Family Medicine 05/02/21 Sherin Hall RN [address] [place] [address] Abrasive Wheel Molder Family Medicine 07/30/23 Juan Jose Deshpande MD [address] [place] [address] Nephrology 06/13/24 Michael Glass MD [address] [place] [address] Dr [address] [place] [address] General Surgery 06/13/24 Demetrius [place] MD [address] [place] [address] Orthopaedic Surgery 06/13/24 Harry Garcia MD [address] [facility] [address] [place] [address] Gastroenterology 06/13/24 Jovany Feliciano MD [address] [facility] [address] [place] [address] Cardiology 06/13/24 documented as of this encounter
--- OUTSIDE RECORDS SUMMARY | 2024-08-13 13:24 | XMS_ITS | Encounter Summary ---
Author Organization [employer] [facility] Address [address] [place] [address] 7t [place] [address] Care Team Providers Care Laboratory Geneticist Name Role Phone Vanekeeley Flora LAFLEUR Primary Care Provider [phone] Sherin Hall RN Unavailable [phone] Juan Jose Deshpande MD Unavailable [phone] Michael Glass MD Unavailable [phone] Demetrius Austin MD Unavailable Harry Garcia MD Unavailable [phone] Jovany Feliciano MD Unavailable Encounter Details Date Type Department Care Team (Latest Contact Info) Description 01/24/2019 Abstract [facility] CONVERSIONS Dental, Provider, DDS Social History Tobacco [...] Description 08/18/2024 9:30 AM EST Medication Management [facility] MEDICINE [address] [place], [place] [phone] Kandi Panda, RobertD [address] [place], [place] [phone] documented as of this encounter Visit Diagnoses Not on filedocumented in this encounter Care Teams Laboratory Geneticist Relationship Specialty Start Date End Date Flora Santiago FNP [address] [place] [address] PCP - General Family Medicine 05/02/21 Sherin Hall, RN [address] [place] [address] Link Knitting Machine Operator Family Medicine 07/30/23 Juan Jose Deshpande MD [address] [place] [address] Nephrology 06/13/24 Michael Glass MD [address] [place] [address] General Surgery 06/13/24 Demetrius Austin MD [address] [place] [address] Orthopaedic Surgery 06/13/24 Harry Garcia MD [address] [place] [address] Gastroenterology 06/13/24 Jovany Feliciano MD [address] [place] [address] Cardiology 06/13/24 documented as of this encounter
--- OUTSIDE RECORDS SUMMARY | 2024-08-13 13:24 | XMS_ITS | Encounter Summary ---
Author Organization [employer] Address [address] [facility] 7t [place] [address] Care Team Providers Care Division Manager Name Role Phone Flora Santiago SHELL TRIM OPERATOR Primary Care Provider [phone] Sherin Hall RN Unavailable [phone] Juan Jose Deshpande MD Unavailable [phone] Michael Glass MD Unavailable [phone] Demetrius Austin MD Unavailable Harry Garcia MD Unavailable [phone] Jovany Feliciano MD Unavailable [phone] Encounter Details Date Type Department Care Team (Late st Contact Info) Description 08/13/2024 Orders Only GENERIC EXTERNAL DATA DEPARTMENT Provider, [...] Description 08/18/2024 9:30 AM EST Medication Management [facility] MEDICINE [address] [place] [address] Kandi Panda, PharmD [address] [place] [address] documented as of this encounter Goals Goal Patient Goal Type Associated Problems Recent Progress Patient-Stated? Author Blood Pressure < 140/90 Blood Pressure 139/82(2023 8:57 AM EST) No Jose Maria Novak Hemoglobin A1c < 7 Result Component 7.6( 9:20 AM EST) No Jose Maria Novak documented as of this encounter Procedures Procedure Name Priority Date/Time Associated Diagnosis Comments BASIC METABOLIC PANEL Routine 08/13/2024 11:49 AM EST URINALYSIS, COMPLETE Routine 08/13/2024 11:43 AM EST documented in this encounter Results * (ABNORMAL) Basic Metabolic Panel (08/13/2024 11:49 AM EST) Sodium 133(L) 135 - 145 mmol/L [facility] Potassium 4.9 3.3 - 5.1 mmol/L [facility] Chloride 98 96 - 108 mmol/L [facility] Carbon Dioxide 23 22 - 29 mmol/L [facility] Anion Gap 17 12 - 20 [facility] Urea Nitrogen (BUN) 17(H) 9 - 16 mg/dL [facility] Creatinine, Serum 1.10 0.5 - 1.4 mg/dL [facility] Estimated Glomerular Filt Rate >60 [facility] Comment:Chronic Kidney Disea se: Estimated GFR < 60 mL/min/[id number] Kidney Disease: Estimated GFR < 15 mL/min/1.73m2 Glucose 296(H) 60 - 115 mg/dL [facility] Calcium 9.8 8.4 - 10.2 mg/dL [facility] 08/13/2024 11:4 9 AM EST 08/13/2024 11:49 AM EST us Generic External Data Provider LAB BLOOD ORDERAB LES Final Result Performing Organization Address City/State/[facility] Co de Phone Number [facility] [address] [place] [phone] * (ABNORMAL) Urinalysis Complete (08/13/2024 11:43 AM EST) Color Urine Yellow [facility] Appearance Urine Clear [facility] PH 5.5 5.0 - 9.0 [facility] Glucose Urine UA >=1000(A) Negative mg/dL [facility] Urine Blood Moderate (2+)(A) Negative [facility] Specific [place] - Urine 1.025 1.005 - 1.025 [facility] Urine Protein Trace Neg-Trace mg/dL [facility] Urine Ketones Negative Negative mg/dL [facility] Nitrite Urine Negative Negative [facility] Leukocyte Esterase Urine Negative Negative [facility] RBC Urine 6-10(A) 0 - 2 /HPF [facility] Urine WBC 0-5 0 - 5 /HPF [facility] Urine Squamous Epithelial Cell 0-2 0 - 2 /HPF [facility] Urine Bacteria None Seen None Seen [facility] Hyaline Casts, Urine 0-2 0 - 2 /LPF [facility] 08/13/2024 11:4 3 AM EST 08/13/2024 12:35 PM EST us Generic External Data Provider LAB URINE ORDERAB LES Final Result [facility] [address] [place] [address] [phone] documented in this encounter Visit Diagnoses Not on filedocumented in this encounter Additional Health Concerns Assessment Noted Time PHQ-9 Depression Total Score: 0 11/30/19 11:07 AM EDT documented as of this encounter Care Teams Division Manager Relationship Specialty Start Date End Date Flora Santiago FNP [address] [place] [address] PCP - General Family Medicine 05/02/21 Sherin Hall, RN [address] [place] [address] Ship Runner Family Medicine 07/30/23 Juan Jose Deshpande MD [address] [place] [address] Nephrology 06/13/24 Michael Glass MD [address] [place] [address] Dr 3rd [place] [address] General Surgery 06/13/24 Demetrius Austin MD [address] [place] [address] Orthopaedic Surgery 06/13/24 Harry Garcia MD [address] 3rd [place] [address] Gastroenterology 06/13/24 Jovany Feliciano MD [address] 3rd [place] [address] Cardiology 06/13/24 documented as of this encounter
--- OUTSIDE RECORDS SUMMARY | 2024-08-13 13:24 | XMS_ITS | Encounter Summary ---
Author Organization [employer] [facility] Address [address] [place] [address] 7t [place] [address] Care Team Providers Care Bank Accountant Name Role Phone VaneGustavo minasharon LAFLEUR Primary Care Provider [phone] Sherin Hall RN Unavailable [phone] Juan Jose Deshpande MD Unavailable [phone] Michael Glass MD Unavailable [phone] Demetrius Austin MD Unavailable Harry Garcia MD Unavailable [phone] Jovany Feliciano MD Unavailable [phone] Encounter Details Date Type Department Care Team (Latest Contact Info) Description 01/13/2021 Abstract [facility] CONVERSIONS Dental, Provider, DDS Social History Tobacco [...] Description 08/18/2024 9:30 AM EST Medication Management [facility] MEDICINE [address] [place], [place] [phone] Kandi Panda, RobertD [address] [place], [place] [phone] documented as of this encounter Visit Diagnoses Not on filedocumented in this encounter Care Teams Bank Accountant Relationship Specialty Start Date End Date Flora Santiago FNP [address] [place] [address] PCP - General Family Medicine 05/02/21 Sherin Hall, RN [address] [place] [address] Wood Cabinetmaker Family Medicine 07/30/23 Juan Jose Deshpande MD [address] [place] [address] Nephrology 06/13/24 Michael Glass MD [address] [place] [address] 3rd [place] [address] General Surgery 06/13/24 Demetrius Autsin MD [address] [place] [address] Orthopaedic Surgery 06/13/24 Harry Garcia MD [address] [place] [address] Gastroenterology 06/13/24 Jovany Feliciano MD [address] [place] [address] Cardiology 06/13/24 documented as of this encounter
--- OUTSIDE RECORDS SUMMARY | 2024-08-13 13:24 | XMS_ITS | Encounter Summary ---
Author Organization [employer] Address [address] [facility] 7t [place] [address] Care Team Providers Care Airport Screener Name Role Phone Flora Santiago Primary Care Provider [phone] Sherin Hall RN Unavailable [phone] Juan Jose Deshpande MD Unavailable [phone] Michael Glass MD Unavailable [phone] Demetrius Austin MD Unavailable Harry Garcia MD Unavailable [phone] Jovany Feliciano MD Unavailable [phone] Reason for Visit * Reason Onset Date Comments ED Visit 07/21/2024 Encounter Details Date Type Department Care Team ([facility] st Contact Info) Description 07/21/2024 Telephone [facility] [address] [place], [place] [phone] Flora Santiago FNP [address] [place], [place] [phone] ED Visit Social History Tobacco Use Types [...] 11:22 AM EST TC with patient via police [facility] #[id number]. Pt states he is waiting for [facility] to call him back with [...] Description 08/18/2024 9:30 AM EST Medication Management [facility] MEDICINE [address] [place] [address] Kandi Panda PharmD [address] [place] [address] documented as of this encounter Goals Goal [...] documented as of this encounter Care Teams Airport Screener Relationship Specialty Start Date End Date Flora Santiago FNP [address] [place] [address] PCP - General Family Medicine 05/02/21 Sherin Hall, RN [address] [place] [address] Quoter Family Medicine 07/30/23 Juan Jose Deshpande MD [address] [place] [address] [address] [place] [address] Nephrology 06/13/24 Michael Glass MD [address] [place] [address] Dr 3rd [place] [address] General Surgery 06/13/24 Demetrius Austin MD [address] [place] [address] Orthopaedic Surgery 06/13/24 Harry Garcia MD [address] 3rd [place] [address] Gastroenterology 06/13/24 Jovany Feliciano MD [address] 3rd [place] [address] Cardiology 06/13/24 documented as of this encounter
--- OUTSIDE RECORDS SUMMARY | 2024-08-13 13:24 | XMS_ITS | Encounter Summary ---
Author Organization [employer] Address [address] [facility] 7t [place] [address] Care Team Providers Care Missile And Missile Checkout Technician Name Role Phone Flora Santiago Primary Care Provider [phone] Sherin Hall RN Unavailable [phone] Juan Jose Deshpande MD Unavailable [phone] Michael Glass MD Unavailable [phone] Demetrius Austin MD Unavailable Harry Garcia MD Unavailable [phone] Jovany Feliciano MD Unavailable Reason for Referral * Consultation (STAT) - Authorized Specialty Diagnoses / Procedures Referred By Jana rabago Referred To Contact Gastroenterology Diagnoses Liver lesion Cirrhosis of liver with ascites, unspecified hepatic cirrhosis type (CMS/HCC) (CMS/HCC) Flora Santiago FNP [address] [place] [address] Phone: tel: fax: [facility] Gastroenterology [address] [facility] 3rd Floor [address] [place], [place] Phone: tel: fax: Referral ID Status Reason Start Date Expiration Date Visits Requested Visits Authorized [id number] Authorized Specialty Services Required 08/12/2024 08/12/2025 1 1 Encounter Details Date Type Department Care Team (Late st Contact Info) Description 08/11/2024 11:30 AM EST Telemedicine [facility] PEDS [address] [place] [address] Flora Santiago, ANESTHESIOLOGY CRNA [address] [place] [address] Liver lesion (Primary Dx); Primary hypertension; Cirrhosis of liver with ascites, unspecified hepatic cirrhosis type (CMS/HCC) (CMS/HCC) Social History Tobacco Use Types Packs/Day Years [...] AM EDT documented as of this encounter Progress Notes * Flora Santiago, ANESTHESIOLOGY CRNA - 08/11/2024 11:30 AM EST Subjective Patient ID: Steven Stanley is a 59 y.o. male w/ PMH T2DM, decompensated cirrhosis, HTN, GERD, HLD, fibromyalgia, and obesity, who presents to the office for a follow up visit - [facility] [place] [place] ED f/up. HPI: Last PCP visit: 06/13/24 Referral to physical therapy for left shoulder pain [facility] [place] [place] ED visit on 07/17/2024 for intermittent chest pain. ACS ruled out and completed follow-up with [facility] [place] [place] cards on 07/30/2024. Plan for myocardial perfusion study to assess for ischemic changes. Liver lesion: incidental finding during ED visit. CTA chest demonstrated arterial enhancing lesion measuring 1x1.6cm. Concern for hepatocellular carcinoma. Will refer urgently to GI. Ordering Physician: Oswaldo Villareal Date of Service: 07/17/24 Procedure(s): CT angio chest PE protocol Accession Number(s): [id number] ADDENDUM This document has been electronically signed by: Jonathan Chawla MD on 07/17/2024 18:38:51 ADDENDUM: Receipt of this report by the clinical staff was confirmed with PAVAN Fisher on Jul 17, 2024 18:54:00 EST. This document has been electronically signed by: Tamika Ness on 07/17/2024 18:54:41 CLINICAL HISTORY: chest pain CT angiography chest [...] by: Jonathan Chawla MD on 07/17/2024 18:38:51 Telehealth: Patient gave verbal consent to be seen in this manner. A complete assessment and plan is detailed in the note, all of which were conducted remotely using virtual technology. Patient identity was verbally confirmed with 2 identifiers at the start of the visit. Patient verbalized being located in the [facility] during the televisit. Provider was located in an Ambulatory examroom/outside the office at a secure location during the visits. Specialists: Gastro: Previously following with Dr. Garcia ([facility] [place] [place] - Cirrhosis w/ ascites Surgery: Dr. Glass ([facility] [place] [place] - inguinal hernia Nephrology: Dr. Deshpande ([facility] [place] [place] [facility]) Urology: WILL Harris - microhematuria Cards: Dr. Feliciano ([facility] [place] [place]) - hypertension Review of Systems Constitutional: Negative for activity change, appetite change and fever. Eyes: Negative for visual disturbance. Cardiovascular: Negative for leg swelling. Gastrointestinal: Negative for abdominal pain, constipation, diarrhea and vomiting. Genitourinary: Negative for decreased urine volume and difficulty urinating. Physical Exam Neurological: Mental Status: He is oriented to person, place, and time. Psychiatric: Mood and Affect: Mood normal. Behavior: Behavior normal. Assessment/Plan Problem List Items Addressed This Visit Circulatory Hypertensive disorder Relevant Medications Blood Pressure kit Digestive Cirrhosis of liver with ascites (CMS/HCC) ([facility]/HCC) Overview Lab Results Component Value Date AST 86 (H) 07/17/2024 ALT 34 07/17/2024 TOTPROTEIN 8.0 07/17/2024 ALB 4.0 07/17/2024 ALP 238 (H) 07/17/2024 TOTALBILIRUB 1.0 07/17/2024 Lab Results Component Value Date PLT 168 07/17/2024 PLT 188 04/29/2024 Lab Results Component Value Date PTT 34.7 06/22/2023 PTT 31.1 03/21/2023 Lab Results Component Value Date HEPBSURFACAG Negative 04/29/2024 HEPBSURFAB REACTIVE 04/29/2024 HEPBCOREAB Nonreactive 04/29/2024 Hep C: negative Jul 2021 Current Assessment & Plan -Previously following with [facility] [place] [place] [facility], although transferring to [facility]. -MELD score 8 -Previously completing paracentesis for ascites PRN -Reviewed basic education and lifestyle interventions important for diagnosis of cirrhosis Medications: Eplerenone 50mg daily DC spironolactone (Jun 2023 d/t gynecomastia) Furosemide 20mg daily Rifaximin Screening: - EGD: no records available - Last Abdominal US Aug 2023: LIVER: Nodular surface contour. There is diffuse increased liver parenchymal echogenicity, consistent with infiltrative hepatocellular disease. No definite focal lesion is seen, but evaluation is limited due to poor sound beam penetration through the coarse echogenic liver parenchyma. There is no intrahepatic biliary duct dilatation seen. - AFP: ordered 08/11/24, pending Relevant Orders Referral to Gastroenterology Other Visit Diagnoses Liver lesion - Primary - Referral to GI for further eval and r/o of hepatocellular carcinoma. - Scheduled w/ [facility] GI for 08/13/24. Relevant Orders CBC auto differential Alpha-Fetoprotein, Tumor Marker Hepatic Function Panel Referral to Gastroenterology Follow up: per recall, sooner as needed documented in this encounter Miscellaneous Notes * Assessment & Plan Note - CIARRA Josue - 08/12/2024 10:02 AM EST Associated Problem(s): Cirrhosis of liver with ascites (CMS/HCC) (CMS/HCC) -Previously following with [facility] [place] [place] [facility], although transferring to [facility]. -MELD score 8 -Previously completing paracentesis for ascites PRN -Reviewed basic education and lifestyle interventions important for diagnosis of cirrhosis Medications: Eplerenone 50mg daily DC spironolactone (Jun 2023 d/t gynecomastia) Furosemide 20mg daily Rifaximin Screening: - EGD: no records available - Last Abdominal US Aug 2023: LIVER: Nodular surface contour. There is diffuse increased liver parenchymal echogenicity, consistent with infiltrative hepatocellular disease. No definite focal lesion is seen, but evaluation is limited due to poor sound beam penetration through the coarse echogenic liver parenchyma. There is no intrahepatic biliary duct dilatation seen. - AFP: ordered 08/11/24, pending documented in this encounter Plan of Treatment Upcoming Encounters Date Type Department Care Team (Late st Contact Info) Description 08/18/2024 9:30 AM EST Medication Management [facility] MEDICINE [address] [place] [address] Kandi Panda PharmD [address] [place], [place] [phone] Scheduled Orders Name Type Priority Associated Diagnoses Orde r Schedule Alpha-Fetoprotein, Tumor Marker Lab Routine Liver lesion Expected: 08/11/2024 (Approximate), Expires: 08/11/2025 Scheduled Referrals Name Type Priority Associated Diagnoses Order Schedule Referral to Gastroenterology Outpatient Referral STAT Liver lesion Cirrhosis of liver with ascites, unspecified hepatic cirrhosis type (CMS/HCC) (CMS/HCC) Expected: 08/12/2024 (Approximate), Expires: 08/12/2025 documented as of this encounter Goals Goal Patient Goal Type Associated Problems Recent Progress Patient-Stated? Author Blood Pressure < 140/90 Blood Pressure 139/82(2023 8:57 AM EST) No Jose Maria Novak Hemoglobin A1c < 7 Result Component 7.6( 9:20 AM EST) No Jose Maria Novak documented as of this encounter Procedures Procedure Name Priority Date/Time Associated Diagnosis Comments CBC WITH AUTO DIFFERENTIAL Routine 08/13/2024 11:49 AM EST Liver lesion HEPATIC FUNCTION PANEL Routine 08/13/2024 11:49 AM EST Liver lesion documented in this encounter Results * (ABNORMAL) Hepatic Function Panel (08/13/2024 11:49 AM EST) Bilirubin, Total 1.2(H) 0.0 - 1.0 mg/dL [facility] Bilirubin, Direct 0.5 0.0 - 0.5 mg/dL [facility] Aspartate Amino Transferase 32 5 - 37 U/L [facility] Alanine Aminotransferase 19 0 - 40 U/L [facility] Total Protein 9.1(H) 6.5 - 8.0 g/dL [facility] Albumin Level 4.4 3.5 - 5.0 g/dL [facility] Alkaline Phosphatase 167(H) 39 - 117 U/L [facility] Blood Venous blood specimen / Unknown 08/13/2024 11:49 AM EST 08/13/2024 11:49 AM EST Flora Vanekeeley ANESTHESIOLOGY CRNA LAB BLOOD ORDERABLES Final Res ult [facility] [address] [place] [address] [phone] * (ABNORMAL) CBC auto differential (08/13/2024 11:49 AM EST) White Blood Count 11.4(H) 4.8 - 10.8 X10*3/uL [facility] Red Blood Count 5.21 4.60 - 5.80 X10*6/uL [facility] Hemoglobin 14.0 14.0 - 18.0 g/dl [facility] Hematocrit 42.3 42.0 - 52.0 % [facility] Mean Corpuscular Volume 81.2 80.0 - 98.0 fL [facility] Mean Corpuscular Hemoglobin 26.9(L) 27.0 - 33.0 pg [facility] Mean Corpuscular HGB Conc 33.1 31.0 - 36.0 g/dl [facility] Red Cell Distribution Width 13.9 11.0 - 16.0 % [facility] Platelet Count 212 160 - 400 X10*3/uL [facility] Mean Platelet Volume 10.2 9.4 - 12.4 fL [facility] Neutrophils Percent Auto 78.4(H) 45 - 73 % [facility] Imm Gran Pct Auto 0.4 0.0 - 0.4 % [facility] Lymphocytes Percent Auto 11.1(L) 20 - 40 % [facility] Monocytes Percent Auto 9.2 2 - 11 % [facility] Eosinophils Percent Auto 0.5 0 - 4 % [facility] Basophils Percent Auto 0.4 0 - 2 % [facility] NRBC Pct Auto 0.0 0.0 - 0.2 /100WBC [facility] Neutrophils Absolute Auto 8.9(H) 2.0 - 8.3 x10*3/uL [facility] Imm Gran Abs Auto 0.04(H) 0.00 - 0.03 X10*3/uL [facility] Lymphocytes Absolute Auto 1.3 1.2 - 4.9 X10*3/uL [facility] Monocytes Absolute Auto 1.0 0.1 - 1.2 X10*3/uL [facility] Eosinophils Absolute Auto 0.1 0.0 - 0.4 X10*3/uL [facility] Basophils Absolute Auto 0.0 0.0 - 0.2 X10*3/uL [facility] NRBC Abs Auto 0.000 0.0 - 0.012 X10*3/uL [facility] Blood Venous blood specimen / Unknown 08/13/2024 11:49 AM EST 08/13/2024 11:49 AM EST us Flora LAFLEUR LAB BLOOD ORDERABLES Final Res ult [facility] [address] [place] [address] [phone] documented in this encounter Visit Diagnoses Diagnosis Liver lesion- Primary Other specified disorders of liver Primary hypertension Unspecified essential hypertension Cirrhosis of liver with ascites, unspecified hepatic cirrhosis type (CMS/HCC) (CMS/HCC) documented in this encounter Additional Health Concerns Assessment Noted Time PHQ-9 Depression Total Score: 0 11/30/19 24 11:07 AM EDT documented as of this encounter Care Teams Missile And Missile Checkout Technician Relationship Specialty Start Date End Date Flora Santiago FNP [address] [place] [address] PCP - General Family Medicine 05/02/21 Sherin Hall, RN [address] [place] [address] Photoresist Printer Family Medicine 07/30/23 Juan Jose Deshpande MD [address] [place] [address] Nephrology 06/13/24 Michael Glass MD [address] [place] [address] [address] [place] [address] General Surgery 06/13/24 Demetrius Austin MD [address] [place] [address] Orthopaedic Surgery 06/13/24 Harry Garcia MD [address] [place] [address] Gastroenterology 06/13/24 Jovany Feliciano MD [address] [place] [address] Cardiology 06/13/24 documented as of this encounter
--- OUTSIDE RECORDS SUMMARY | 2024-08-13 13:24 | XMS_ITS | Encounter Summary ---
Author Organization [employer] Address [address] [facility] [address] [place] [address] Care Team Providers Care Electronic Transaction Implementer Name Role Phone Flora Santiago WORKFLOW DEVELOPER Primary Care Provider [phone] Sherin Hall RN Unavailable [phone] Juan Jose Deshpande MD Unavailable [phone] Michael Glass MD Unavailable Demetrius Austin MD Unavailable Harry Garcia MD Unavailable [phone] Jovany Feliciano MD Unavailable [phone] Encounter Details Date Type Department Care Team (Latest Contact Info) Description 08/11/2024 Travel Social History Tobacco Use Types Packs/Day Years [...] Description 08/18/2024 9:30 AM EST Medication Management [facility] [address] [place] [address] Kandi Panda, RobertD [address] [place] [address] documented as of this encounter Goals Goal [...] documented as of this encounter Care Teams Electronic Transaction Implementer Relationship Specialty Start Date End Date Flora Santiago FNP [address] [place] [address] PCP - General Family Medicine 05/02/21 Sherin Hall, RN [address] [place] [address] Industrial Twisting Machine Operator Family Medicine 07/30/23 Juan Jose Deshpande MD [address] [place] [address] Nephrology 06/13/24 Michael Glass MD [address] [place] [address] [address] [place] [address] General Surgery 06/13/24 Demetrius Austin MD [address] [place] [address] Orthopaedic Surgery 06/13/24 Harry Garcia MD [address] [facility] [address] [place] [address] Gastroenterology 06/13/24 Jovany Feliciano MD [address] [facility] [address] [place] [address] Cardiology 06/13/24 documented as of this encounter
--- OUTSIDE RECORDS SUMMARY | 2024-08-13 13:24 | XMS_ITS | Encounter Summary ---
Author Organization [employer] Address [address] [facility] [address] [place] [address] Care Team Providers Care Schedule Announcer Name Role Phone Flora Santiago ENERGY DIRECTOR Primary Care Provider [phone] Sherin Hall RN Unavailable [phone] Juan Jose Deshpande MD Unavailable [phone] Michael Glass MD Unavailable [phone] Demetrius Austin MD Unavailable Harry Garcia MD Unavailable [phone] Jovany Feliciano MD Unavailable [phone] Encounter Details Date Type Department Care Team (Late st Contact Info) Description 10/04/2022 Orders Only [facility] [address] [place], [place] [id number] Shahnaz Perez LPN Social History Tobacco Use [...] Description 08/18/2024 9:30 AM EST Medication Management [facility] [address] [place], [place] [phone] Kandi Panda, RobertD [address] [place], [place] [phone] documented as of this encounter Visit Diagnoses Not on filedocumented in this encounter Care Teams Schedule Announcer Relationship Specialty Start Date End Date Flora Santiago FNP [address] [place] [address] PCP - General Family Medicine 05/02/21 Sherin Hall, RN [address] [place] [address] Food Assembler Kitchen Family Medicine 07/30/23 Juan Jose Deshpande MD [address] [place] [address] Nephrology 06/13/24 Michael Glass MD [address] [place] [address] [address] [place] [address] General Surgery 06/13/24 Demetrius Austin MD [address] [place] [address] Orthopaedic Surgery 06/13/24 Harry Garcia MD [address] [address] Gastroenterology 06/13/24 Jovany Feliciano MD [address] [place] [address] Cardiology 06/13/24 documented as of this encounter
--- OUTSIDE RECORDS SUMMARY | 2024-08-13 13:24 | XMS_ITS | Clinical Summary ---
Author Organization [employer] Address [address] [place] [address] [address] [place] [address] Care Team Providers Care Grain [employer] Plants Supervisor Name Role Phone VaneFlora mina CIARRA Primary Care Provider [phone] Sherin Hall RN Unavailable Juan Jose Deshpande MD Unavailable [phone] Michael Glass MD Unavailable [phone] Demetrius Austin MD Unavailable Harry Garcia MD Unavailable [phone] Jovany Feliciano MD Unavailable Allergies Active Allergy Reactions Criticality Noted Date Comments Atorvastatin High 02/01/2023 Other reaction(s): elevated LFTs Shrimp Extract High 02/01/2023 Other reaction(s): Difficulty Breathing Medications lisinopril 40 MG tablet TAKE 1 TABLET BY MOUTH DAILY. CALL A LA OFICINA PARA ARELI 023 Active beta carotene (vitamin A) 3 MG (77552 UT) capsule Take 10,000 Units by mouth in the morning. Active zinc sulfate (Zincate) 220 (50 Zn) MG capsule Take 50 mg of elemental zinc by mouth in the morning. Active simethicone (Mylicon) 125 MG chewable tablet Chew 125 mg 3 times daily. PRN Active thiamine (Vitamin B-1) 100 MG tablet Take 100 mg by mouth 3 times daily. Active Continuous Blood Gluc Custodial Manager (CrowdOptic Bill 2 Lewis) device Scan sensor every 8 hours 1 each 023 Active lidocaine (Lidoderm) 5 % patch APPLY 1 PATCH TOPICALLY TO SKIN, LEAVE ON FOR 12 HOURS AND OFF FOR 12 HOURS DIRECTED 30 patch 11 023 Active cholecalciferol (Vitamin D-3) 50 MCG (1999 UT) tabletIndicatio ns:Routine health maintenance TAKE 1 TABLET BY MOUTH EVERY EVENING 90 tablet 3 024 Active TRUEplus Lancets 33G miscIndications :Type 2 diabetes mellitus with hyperglycemia, unspecified whether usp insulin use ([facility]) TEST BLOOD SUGAR THREE TIMES DAILY 100 each 11 024 Active ezetimibe (Zetia) 10 MG tablet Take 10 mg by mouth in the morning. 024 Active Xifaxan 550 MG tablet TAKE 1 TABLET BY MOUTH THREE TIMES DAILY FOR 2 WEEKS Active insulin degludec (Tresiba FlexTouch) 100 UNIT/ML injectionIndica tions:Type 2 diabetes mellitus with hyperglycemia, with long-term current use of insulin ([facility]) INJECT 50 UNITS SUBCUTANEOUSLY AT BEDTIME 15 mL 6 Active insulin pen needle (Sure Comfort Pen Schenevus) 31G x 5 mm misc USE DIRECTED FOUR TIMES DAILY 100 each 11 024 Active ketoconazole (NIZOral) 2 % shampooIndicati ons:Tinea capitis APPLY 5-10 ML TOPICALLY TO WET [...] glucose blood (FreeStyle Precision Ric Test) test stripIndication s:Type 2 diabetes mellitus with hyperglycemia, unspecified whether usp insulin use ([facility]) USE DIRECTED TO TEST BLOOD SUGAR THREE TIMES DAILY 100 each 11 024 Active Inspra 50 MG tablet TAKE 1 TABLET BY MOUTH EVERY MORNING 90 tablet 1 024 Active insulin lispro (HumaLOG) 100 UNIT/ML injectionIndica tions:Type 2 diabetes mellitus with hyperglycemia, with long-term current use of insulin ([facility]) Inject 20-25 Units under the skin with breakfast, with lunch, and with evening meal. 15 mL 11 Active Continuous Glucose Sensor (FreeStyle Bill 2 Sensor) miscIndications :Type 2 diabetes mellitus with hyperglycemia, with long-term current use of insulin (CMS/HCC) USE DIRECTED CHANGE EVERY 14 DAYS 2 each 11 Active Diclofenac Sodium 1 % gel APPLY 2 GRAMS TOPICALLY TO AFFECTED AREA(S) TWICE DAILY NEEDED 100 g 2 Active empagliflozin (Jardiance) 25 MG TAKE 1 TABLET BY MOUTH EVERY MORNING 90 tablet 1 025 Active Blood Pressure kitIndications: Primary hypertension Use to check blood pressure once daily and when symptomatic 1 kit Active Jardiance 25 MG TAKE 1 TABLET BY MOUTH EVERY MORNING 30 tablet 5 024 2024 Discontinued Active Problems Problem Noted Date Diagnosed Date Bilateral carpal tunnel syndrome 06/13/2024 Assessment & Plan (06/13/2024 11:47 AM EST): 04/23/24: [facility] Holley BROWNE. EMG with impression of bilateral [...] thumb bilateral. Referral to Ortho placed. 02/12/24: [facility] Holley Jade, PA. Eval bilat hand pain, numbness, tingling x 1 year. Referred for EMG and nerve conduction study to test nerves of BUE. Cont to monitor left ring finger to see if locking and catching. Non-recurrent unilateral ing uinal hernia without obstruction or gangrene 04/13/2024 Overview (04/13/2024): Left inguinal hernia repair completed in Fall [address] Glass - [facility] [place] Surgery Umbilical hernia without obstruction and without gangrene 04/13/2024 Overview (04/13/2024): Following with [facility] Surgery - Dr. Glass Consult note in Mar 2024 with plan for surgery small periumbilical hernia Reviewed ED precautions Assessment & Plan (04/13/2024 5:17 PM EDT): Speciality clearance for surgery in process Arthralgia of left temporomandibular joint 02/03 Microhematuria 11/30/2023 Overview (04/13/2024): Followed by [facility] Urology - WILL Harris Cytology (2022): benign [...] eating Call to schedule follow up with [facility] Pharmacy CDTM team Last eye exam: 12/09/2020, [...] 09/06/2020 -Completed DM visits with Viral Team MICHELLE -Cont Tresiba 50 units at bedtime -Continue [...] by GI for ascites Atherosclerotic cardiovascular disease Cirrhosis of liver with ascites (CMS/HCC) 2022 Overview (08/12/2024): Lab Results Component Value Date AST 86 [...] Nonreactive 04/29/2024 Hep C: negative Jul 2021 Assessment & Plan (08/12/2024 10:06 AM EST): -Previously following with [facility] GI, although transferring to [facility]. -MELD score 8 -Previously completing paracentesis for [...] dilatation seen. - AFP: ordered 08/11/24, pending Assessment & Plan (06/13/2024 11:54 AM EST): -Following with [facility] GI - Dr. Garcia (last consult note [...] Plan (04/13/2024 5:00 PM EDT): -Following with [facility] GI - Dr. Garcia (last consult note [...] Plan (11/30/2023 11:37 AM EDT): -Following with [facility] GI - Dr. Garcia -MELD score 8 -Undergoing paracentesis for ascites PRN -Reviewed basic education and lifestyle interventions important for diagnosis of cirrhosis Medications through GI: Eplerenone 50mg daily DC spironolactone (Jun 2023 d/t gynecomastia) Furosemide 20mg daily Rifaximin Following with GI: screening endoscopy, return precautions paracentesis, HCC screening Q6mo (AFP, abd US) Assessment & Plan (06/23/2023 1:58 PM EST): -Following with [facility] GI - Dr. Garcia -Undergoing paracentesis for [...] Plan (03/30/2023 8:49 PM EDT): -Following with [facility] GI - Dr. Garcia -Reports currently scheduled Q2 weeks for paracentesis -Upcoming paracentesis scheduled week of 04/01/23, with plan for f/u with GI week of 04/08/23 -Reviewed basic education and lifestyle interventions important for diagnosis of cirrhosis Medications through GI: ?? Spironolactone 50mg daily ?? Furosemide 20mg daily Assessment & Plan (02/13/2023 5:57 PM EDT): - followed by Dr. Garcia [facility] GI, last seen in December 2022 - urgent follow-up recommended; we will try calling Biliary acute pancreatitis 09/28/2022 Erosive esophagitis 10/04/2021 Renal stone 09/29/2020 Hypertensive disorder 04/08/2015 Assessment & Plan (06/13/2024 11:57 AM EST): Following with [facility] Nephrology (Dr. Deshpande) & [facility] Cards (Dr. Feliciano) Stress test from 2022. [...] Plan (04/13/2024 5:14 PM EDT): Following with [facility] Nephrology (Dr. Deshpande) & [facility] Cards (Dr. Feliciano) Stress test from 2022. Able to exercise 9.2 mets and reached target HR w/o signs of angina. Echo with LVEF 55-60%. Mild aortic stenosis. Lipids: Zetia, Praluent (PCSK9i) Medications: - Continues with lisinopril 10mg daily - Cont furosemide 20-40mg daily (dose adjustments primarily through Nephrology d/t hx hyponatremia and edema) Assessment & Plan (11/30/2023 11:49 AM EDT): Following with [facility] Cards - Dr. Feliciano. Stress test from [...] - Cause/origin likely multifactorial - Following with [facility] Urology - NUT ORCHARDIST Harris - Cont Cialis 5mg daily and [...] calculus 12/20/2022 09/13/2023 Periodontal disease 12/20/2022 09/13/19 Nonalcoholic steatohepatitis (SALGUERO) 07/08/2021 03/30/2023 Encounters Date Type Department Care Team Description 08/13/2024 Orders Only GENERIC EXTERNAL DATA DEPARTMENT Provider, Generic External Data 08/11/2024 11:30 AM EST Telemedicine [facility] [address] [place] [address] Flora Santiago FNP Liver lesion (Primary Dx); Primary hypertension; Cirrhosis of liver with ascites, unspecified hepatic cirrhosis type (CMS/HCC) (CMS/HCC) 08/11/2024 Travel 08/08/2024 Refill [facility] MEDICINE [address] [place] [phone] Flora Santiago FNP 08/07/2024 Telephone [facility] [address] [place] [phone] [place] Chart Prep 07/21/2024 Telephone [facility] [address] [place] [address] Flora Santiago FNP ED Visit 07/21/2024 Telephone [facility] [address] [place] [address] Flora Santiago FNP ER Follow-up 07/17/2024 Orders Only GENERIC EXTERNAL DATA DEPARTMENT Provider, Generic External Data 07/02/2024 Refill [facility] [address] [place] [address] Flora Santiago FNP 06/16/2024 Telephone [facility] [address] [place] [address] Flora Santiago FNP 06/13/2024 8:45 AM EST Office Visit [facility] [address] [place] [address] Flora Santiago FNP Type 2 diabetes mellitus with hyperglycemia, with long-term current use of insulin (CMS/HCC) (Primary Dx); Chronic left shoulder pain; Bilateral carpal tunnel syndrome; Cirrhosis of liver with ascites, unspecified hepatic cirrhosis type (CMS/HCC) (CMS/HCC); Primary hypertension 06/13/2024 Telephone [facility] [address] [place] [address] Flora Santiago FNP Lab Orders 06/13/2024 Patient Outreach [facility] [address] [place] [address] Flora Santiago FNP Care Coordination ([facility] outreach for [facility] utilities & housing search-referral completed ) 06/13/2024 Travel 06/12/2024 Telephone [facility] [address] [place] [address] Owen Hughes [place] Chart Prep 06/11/2024 Orders Only [facility] [address] [place] [address] Divya Amos MD Type 2 diabetes mellitus with hyperglycemia, with long-term current use of insulin ([facility]) (Primary Dx) 06/11/2024 Telephone [facility] [address] [place] [address] Divya Amos MD 06/11/2024 Refill [facility] [address] [place] [address] Kenya Herrmann MD Type 2 diabetes mellitus with hyperglycemia, with long-term current use of insulin ([facility]) (Primary Dx) 06/08/2024 Refill [facility] [address] [place] [address] Flora Santiago FNP Type 2 diabetes mellitus with hyperglycemia, with long-term current use of insulin ([facility]) (Primary Dx) 06/06/2024 Orders Only GENERIC EXTERNAL DATA DEPARTMENT Provider, Generic External Data 05/26/2024 Orders Only GENERIC EXTERNAL DATA DEPARTMENT Provider, Generic External Data 05/23/2024 Orders Only GENERIC EXTERNAL DATA DEPARTMENT Provider, Generic External Data 05/22/2024 Refill [facility] [address] [place] [address] Selwyn Gordon MD 05/20/2024 Refill [facility] [address] [place] [address] Phalen, Flora, INSURANCE CUSTOMER SERVICE SPECIALIST Type 2 diabetes mellitus with hyperglycemia, unspecified whether usp insulin use ([facility]) from Last 3 Months Immunizations Name Administration [...] EST Medication Management [facility] [address] [place] [address] Kandi Panda, PharmD [address] [place] [address] Health Maintenance Due Date Last Done Comments [...] Zoster Vaccines Completed 06/07/2023, 03/30/2023 Pneumococcal Vaccine: 50+ Years Completed 07/05/2023, 06/27/2008 Hepatitis C Screening Completed [...] Pressure 139/82(2023 8:57 AM EST) Jose Maria Orozco Hemoglobin A1c < 7 Result Component 7.6( 9:20 AM EST) No Jose Maria Novak Procedures Procedure Name Priority Date/Time Associated Diagnosis Comments BASIC METABOLIC PANEL Routine 08/13/2024 11:49 AM EST HEPATIC FUNCTION PANEL Routine 08/13/2024 11:49 AM EST Liver lesion CBC WITH AUTO DIFFERENTIAL Routine 08/13/2024 11:49 AM EST Liver lesion URINALYSIS, COMPLETE Routine 08/13/2024 11:43 AM EST CTA CHEST PE PROTOCAL Routine 07/17/2024 6:38 [...] WHOLE BLOOD Routine 05/23/2024 7:52 AM EST HEPATITIS PANEL, GENERAL Routine 04/29/2024 12:37 PM EDT LIPID PANEL, STANDARD Routine 03/28/2024 [...] Recently Relevant to Health Maintenance Results * (ABNORMAL) CBC auto differential (08/13/2024 11:49 AM EST) Only the most recent of2 resultswithin the time period is included. White Blood Count 11.4(H) 4.8 - 10.8 X10*3/uL [facility] Red Blood Count 5.21 4.60 - 5.80 X10*6/uL [facility] Hemoglobin 14.0 14.0 - 18.0 g/dl [facility] Hematocrit 42.3 42.0 - 52.0 % [facility] Mean Corpuscular Volume 81.2 80.0 - 98.0 fL [facility] Mean Corpuscular Hemoglobin 26.9(L) 27.0 - 33.0 pg [facility] Mean Corpuscular HGB Conc 33.1 31.0 - 36.0 g/dl [facility] Red Cell Distribution Width 13.9 11.0 - 16.0 % [facility] Platelet Count 212 160 - 400 X10*3/uL [facility] Mean Platelet Volume 10.2 9.4 - 12.4 fL [facility] Neutrophils Percent Auto 78.4(H) 45 - 73 % [facility] Imm Gran Pct Auto 0.4 0.0 - 0.4 % [facility] Lymphocytes Percent Auto 11.1(L) 20 - 40 % [facility] Monocytes Percent Auto 9.2 2 - 11 % [facility] Eosinophils Percent Auto 0.5 0 - 4 % [facility] Basophils Percent Auto 0.4 0 - 2 % [facility] NRBC Pct Auto 0.0 0.0 - 0.2 /100WBC [facility] Neutrophils Absolute Auto 8.9(H) 2.0 - 8.3 x10*3/uL [facility] Imm Gran Abs Auto 0.04(H) 0.00 - 0.03 X10*3/uL [facility] Lymphocytes Absolute Auto 1.3 1.2 - 4.9 X10*3/uL [facility] Monocytes Absolute Auto 1.0 0.1 - 1.2 X10*3/uL [facility] Eosinophils Absolute Auto 0.1 0.0 - 0.4 X10*3/uL [facility] Basophils Absolute Auto 0.0 0.0 - 0.2 X10*3/uL [facility] NRBC Abs Auto 0.000 0.0 - 0.012 X10*3/uL [facility] Blood Venous blood specimen / Unknown 08/13/2024 11:49 AM EST 08/13/2024 11:49 AM EST Flora Santiago INSURANCE CUSTOMER SERVICE SPECIALIST LAB BLOOD ORDERABLES Final Res ult [facility] [address] [place] [address] [phone] * (ABNORMAL) Hepatic Function Panel (08/13/2024 11:49 AM EST) Only the most recent of2 resultswithin the time period is included. Bilirubin, Total 1.2(H) 0.0 - 1.0 mg/dL [facility] Bilirubin, Direct 0.5 0.0 - 0.5 mg/dL [facility] Aspartate Amino Transferase 32 5 - 37 U/L [facility] Alanine Aminotransferase 19 0 - 40 U/L [facility] Total Protein 9.1(H) 6.5 - 8.0 g/dL [facility] Albumin Level 4.4 3.5 - 5.0 g/dL [facility] Alkaline Phosphatase 167(H) 39 - 117 U/L [facility] Blood Venous blood specimen / Unknown 08/13/2024 11:49 AM EST 08/13/2024 11:49 AM EST us Flora Santiago INSURANCE CUSTOMER SERVICE SPECIALIST LAB BLOOD ORDERABLES Final Res ult [facility] [address] [place] [phone] * (ABNORMAL) Basic Metabolic Panel (08/13/2024 11:49 AM EST) Only the most recent of3 resultswithin the time period is included. Sodium 133(L) 135 - 145 mmol/L [facility] Potassium 4.9 3.3 - 5.1 mmol/L [facility] Chloride 98 96 - 108 mmol/L [facility] Carbon Dioxide 23 22 - 29 mmol/L [facility] Anion Gap 17 12 - 20 [facility] Urea Nitrogen (BUN) 17(H) 9 - 16 mg/dL [facility] Creatinine, Serum 1.10 0.5 - 1.4 mg/dL [facility] Estimated Glomerular Filt Rate >60 [facility] Comment:Chronic Kidney Disea se: Estimated GFR < 60 mL/min/1.80p6Srgvmo Kidney Disease: Estimated GFR < 15 mL/min/1.73m2 Glucose 296(H) 60 - 115 mg/dL [facility] Calcium 9.8 8.4 - 10.2 mg/dL [facility] 08/13/2024 11:4 9 AM EST 08/13/2024 11:49 AM EST us Generic External Data Provider LAB BLOOD ORDERAB LES Final Result Performing Organization Address [facility]/ZIP Co de Phone Number [facility] [address] [place] [address] [phone] * (ABNORMAL) Urinalysis Complete (08/13/2024 11:43 AM EST) Only the most recent of3 resultswithin the time period is included. Color Urine Yellow [facility] Appearance Urine Clear [facility] PH 5.5 5.0 - 9.0 [facility] Glucose Urine UA >=1000(A) Negative mg/dL [facility] Urine Blood Moderate (2+)(A) Negative [facility] Specific [place] - Urine 1.025 1.005 - 1.025 [facility] Urine Protein Trace Neg-Trace mg/dL [facility] Urine Ketones Negative Negative mg/dL [facility] Nitrite Urine Negative Negative [facility] Leukocyte Esterase Urine Negative Negative [facility] RBC Urine 6-10(A) 0 - 2 /HPF [facility] Urine WBC 0-5 0 - 5 /HPF [facility] Urine Squamous Epithelial Cell 0-2 0 - 2 /HPF [facility] Urine Bacteria None Seen None Seen [facility] Hyaline Casts, Urine 0-2 0 - 2 /LPF [facility] 08/13/2024 11:4 3 AM EST 08/13/2024 12:35 PM EST Generic External Data Provider LAB URINE ORDERAB LES Final Result Performing Organization Address City/[facility]/ZIP Co de Phone Number [facility] [address] [place] [phone] * CTA Chest PE Protocal (07/17/2024 6:38 PM EST) Anatomical Region Laterality Modality Body, Chest Computed Tomogra phy 07/17/2024 6:38 PM EST Narrative 07/17/2024 6:41 PM EST ? [facility] ?[address] ?[place] [address] ? CT Scan Report ? Signed with Addenda ? Patient: Stanley,Steven ?MR#: [id number] ?? 2 ? : 1965 ?Acct:[id number] ? Age/Sex: 59 / M ?ADM Date: 07/17/24 ? Loc: HO.ED ? Attending Dr: ? Ordering Physician: Oswaldo Villareal ?? Date of Service: 07/17/24 ?? Procedure(s): CT angio chest PE protocol ?? Accession Number(s): [id number] ? cc: Oswaldo Villareal; Flora Santiago INSURANCE CUSTOMER SERVICE SPECIALIST ? Report Number: ?? [id number]: Total DLP = ??293.00 mGy-cm ?ADDENDUM ?? [...] ?07/17/24 1840 ? DD/ 1838 ? TD/TT: 07/17/241837 ? Plant Biology Professor: ? Procedure Note Pina, Image - 07/17/[address] [address] [place] Scan Report Signed with Addenda Patient: Robin Stanley#: [id number] 2 : 1965Acct:[id number] Age/Sex: 59 / MADM Date: 07/17/24 Loc: .ED Attending Dr: Ordering Physician: Oswaldo Villareal Date of Service: 07/17/24 Procedure(s): CT angio chest PE protocol Accession Number(s): [id number] cc: Oswaldo Villareal; Flora Santiago [facility] Report Number: [id number]: Total DLP = 293.00 mGy-cm ADDENDUM This [...] signed by Jonathan Chawla MD in OV> 07/17/24 1840 DD/ 37 TD/TT: 07/17/241837 Plant Biology Professor: [facility] External Provider IMG CT PROCEDURES Edited Result - Final * D Dimer High Sensitivity (07/17/2024 5:20 PM EST) Pathologist [facility] D Dimer High Sensitivity 284 NG/ML [facility] Comment:D-DIMER HS REFERENCE RANGENote: Our assay [...] Provider LAB BLOOD ORDERAB LES Final Result [facility] [address] [place] [phone] * (ABNORMAL) High Sensitivity Troponin I (07/17/2024 1:19 PM EST) Only the most recent of2 resultswithin the time period is included. Pathologist [facility] TROPONIN I HIGH SENSITIVITY 44.5(H) <3.5 - 35.0 ng/L [facility] Comment:The [place] high sens itivity Troponin-I results should beused in conjunction with other diagnostic information suchas ECG, clinical observations and information, and patientsymptoms to aid in the diagnosis of [place]. 07/17/2024 1:19 PM EST 07/17/2024 1:22 PM EST us Generic External Data Provider LAB BLOOD ORDERAB LES Final Result [facility] [address] [place] [address] [phone] * XR Chest 2 Views (07/17/2024 10:20 AM EST) Anatomical Region Laterality Modality Chest Radiographic Kandace ging 07/17/2024 10:2 0 AM EST Narrative 07/17/2024 11:46 AM EST ? [facility] ?[address] ?[place] [address] ?XRay Report ? Signed ? Patient: Stanley,Steven ?MR#: [id number] ?? 2 ? : 1965 ?Acct:[id number] ? Age/Sex: 59 / M ?ADM Date: 07/17/24 ? Loc: HO.ED ? Attending Dr: ? Ordering Physician: Starr Peralta DO ?? Date of Service: 07/17/24 ?? Procedure(s): XR chest 2V ?? Accession Number(s): [id number] ? cc: Starr Peralta DO; Flora Santiago INSURANCE CUSTOMER SERVICE SPECIALIST ? EXAMINATION: ?? XR CHEST ? CLINICAL [...] DD/ 1020 ? TD/TT: 07/17/24 1040 ? Plant Biology Professor: MIGUE ? Procedure Note Donotrafatter, Image - 07/17/[address] [address] XRay Report Signed Patient: Robin Stanley#: [id number] 2 : 1965Acct:[id number] Age/Sex: 59 / MADM Date: 07/17/24 Loc: HO.ED Attending Dr: Ordering Physician: Starr Peralta DO Date of Service: 07/17/24 Procedure(s): XR chest 2V Accession Number(s): [id number] cc: Starr Peralta DO; Flora Santiago INSURANCE CUSTOMER SERVICE SPECIALIST EXAMINATION: XR CHEST CLINICAL INFORMATION: pain COMPARISON: [...] 07/17/24 1143 DD/ 1020 TD/TT: 07/17/24 1040 Plant Biology Professor: MSM [facility] External Provider IMG XR PROCEDURES Final Result * SARS-CoV-2 RNA, Influenza A/B, and RSV RNA, Ql NAAT (07/17/2024 10:12 AM EST) Influenza A PCR NEGATIVE Negative [facility] Influenza B PCR NEGATIVE Negative [facility] Resp Syncy Virus RNA Qual PCR NEGATIVE Negative [facility] SARS COV2 PCR NEGATIVE Negative [facility] Comment:All test results mus t be [...] use by authorized laboratories.Testing performed on the [employer] GeneXpert utilizingreal-time RT-PCR.All SARS CoV2 and positive influenza A/B results arereported to [facility]. 07/17/2024 10:1 2 AM EST 07/17/2024 10:16 AM EST Generic External Data Provider LAB MICROBIOLOGY - GENERAL ORDERABLES Final Result Performing Organization Address [facility] Co de Phone Number [facility] [address] [place] [phone] * B Type Natriuretic Peptide (BNP) (07/17/2024 10:12 AM EST) [facility] B Type Natriuretic Peptide 89 <100 pg/mL [facility] Comment:For those patients w ho are being treated with Natrecor(nesiritide, recombinant BNP), BNP testing should beperformed at least two hours post treatment in order toensure that only endogenous levels of BNP are detected. 07/17/2024 10:1 2 AM EST 07/17/2024 10:16 AM EST Generic External Data Provider LAB BLOOD ORDERAB LES Final Result Performing Organization Address [facility] de Phone Number [facility] [address] [place] [phone] * (ABNORMAL) Magnesium (07/17/2024 10:12 AM EST) Pathologist [facility] Magnesium 1.5(L) 1.6 - 2.6 mg/dL [facility] 07/17/2024 10:1 2 AM EST 07/17/2024 10:16 AM EST us Generic External Data Provider LAB BLOOD ORDERAB LES Final Result Performing Organization Address [facility]/ZIP Co de Phone Number [facility] [address] [place] [address] [phone] * Lipase (07/17/2024 10:12 AM EST) [facility] Lipase 52 8 - 78 U/L [facility] 07/17/2024 10:1 2 AM EST 07/17/2024 10:16 AM EST us Generic External Data Provider LAB BLOOD ORDERAB LES Final Result Performing Organization Address [facility] Co de Phone Number [facility] [address] [place] [address] [phone] * ECG 12 lead (06/13/2024 1:21 PM EST) Narrative Flora Santiago FNP - 06/13/2024 1:21 PM EST Pr: 98/150 ms QRS: 92ms QT/Qtc: 382/480 ms HR: 95 bpm NSR. Non-specific T-wave inversion in lead V6. us Flora LAFLEUR ECG ORDERABLES Final Result * (ABNORMAL) POCT HGB A1C (06/13/2024 9:20 AM EST) [facility] Hemoglobin A1C 7.6(A) 4.0 - 6.0 % QC Media Lot # [id number] Lot# Expiration Date 656 Blood 06/13/2024 9:20 AM EST us Flora LAFLEUR POINT OF CARE TEST ENTER/EDIT ORDERABLES Final Result * (ABNORMAL) POCT Glucose (06/13/2024 9:20 AM EST) [facility] Glucose Blood, POC 328 60 - 200 mg/dL Comment:Random QC Media Lot # [id number] Lot# Expiration Date 827,018 Blood Capillary blood specimen / Unknown 06/13/2024 9:20 AM EST us Flora Santiago INSURANCE CUSTOMER SERVICE SPECIALIST POINT OF CARE TEST ENTER/EDIT ORDERABLES Final Result * Gross and Microscopic Level 2 (05/23/2024 9:27 AM EST) 05/23/2024 9:27 AM EST 05/23/2024 10:21 AM EST Narrative [facility] - 05/27/2024 7:26 AM EST ----- ------- Name: Steven Stanley ?Age/Sex: 59/M ? : 1965 Unit#: [id number] ?? Attend Dr: Michael Glass MD ?Re05/23/24 ?Status: DEP SDC ? Location: HO.SSS ?Disch: ? ----- ------- SPEC : [id number] ? RECD: 05/23/24 ? STATUS: ??SOUT ? REQ NUM: [id number] ? LORENE: 05/23/24 ? SUBM DR: Michael Glass MD ? ENTERED: ??05/23/24-1023 ?SP TYPE: Surgical ? OTHR DR: Flora Santiago ? ORDERED: ??Gross Micro L2 ? Diagnosis [...] reveals focally rubbery thickened ibarra-white fibrous tissue. ??Multisensor Intelligence Officer sections are submitted in a cassette labeled A1. CEDS Copies To: ?? Flora Santiago ?? [address] ?? [place] ?? [phone] ?? Michael Glass MD ?? [facility] ?? [address] ?? [place] ?? [phone] ?? [email or web address] ----- ------- Signed (signature on file) Joel Zavaleta MD 05/27/24 0726 ? ----- ------- ? END OF REPORT ? us Generic External Data Provider LAB CYTOLOGY ORDE RABLES Final Result Performing Organization Address [facility]/ZIP Co de Phone Number [facility] [address], [place] [phone] * (ABNORMAL) Glucose, Whole Blood (05/23/2024 7:52 AM EST) Glucose, Whole Blood 162(H) 60 - 115 mg/dL [facility] Comment:METER #: [id number] 05/23/2024 7:52 AM EST 05/23/2024 7:55 AM EST us Generic External Data Provider LAB BLOOD ORDERAB LES Final Result Performing Organization Address [facility]/ZIP Co de Phone Number [facility] [address] [place] [address] [phone] * Hepatitis Panel, General (04/29/2024 12:37 PM EDT) Hepatitis A IgM Nonreactive Nonreactive [facility] Comment:IgM antibodies to RITCHIE V not detected; does not exclude earlyacute or recovered HAV infection. ~Hepatitis B Surface Antibody REACTIVE Nonreactive [facility] Comment:REACTIVE: > 11.99 mI U/mL Hepatitis B Core Antibody Nonreactive Nonreactive [facility] Hepatitis C Antibody GRAYZONE Nonreactive [facility] Comment:Antibodies to HCV ma y or may not be present. Suggest repeatanti-HCV in 4-6 weeks and/or HCV viral load if clinicallyindicated. Hepatitis B Surface Ag Negative Negative [facility] 04/29/2024 12:3 7 PM EDT 04/29/2024 12:39 PM EDT us Generic External Data Provider LAB BLOOD ORDERAB LES Final Result [facility] [address] [place] [phone] * Lipid Panel, Standard (03/28/2024 8:52 AM EDT) Triglycerides 90 <150 mg/dL [facility] Comment:Desirable Triglyceri de: less than 150 mg/dLBorderline High Triglyceride 150-199 mg/dLHigh Triglyceride: 200-499 mg/dLVery High Triglyceride: greater than or equal to 5OO mg/dL Cholesterol 187 <200 mg/dL [facility] Comment:Desirable Cholestero l: less than 200 mg/dLBorderline High Cholesterol: 200-239 mg/dLHigh Cholesterol: greater than 239 mg/dL LDL Cholesterol Calculated 64 <100 mg/dL [facility] Comment:Desirable LDL: less than 100 mg/dLNear Optimal/Above Optimal LDL: 110- 129 mg/dLBorderline High LDL: 130-159 mg/dLHigh LDL: 160-189 mg/dLVery High LDL: greater than or equal to 190 mg/dL HDL Cholesterol 105 >40 mg/dL [facility] Comment:Desirable HDL: great er than 40 mg/dL Note: This HDL assay may give artificially low results in patients with liver disease. 03/28/2024 8:52 AM EDT 03/28/2024 8:52 AM EDT Generic External Data Provider LAB BLOOD ORDERAB LES Final Result Performing Organization Address [facility]/ZIP Co de Phone Number [facility] [address] [place] [phone] * Creatinine, Random Urine (10/31/2023 12:00 PM EDT) Creatinine, Urine 70.00 mg/dL [facility] 10/31/2023 12:0 0 PM EDT 10/31/2023 12:52 PM EDT Generic External Data Provider LAB URINE ORDERAB LES Final Result Performing Organization Address [facility] de Phone Number [facility] [address] [place] [phone] * HIV 1/2 ANTIGEN/ANTIBODY,FOURTH GENERATION W/RFL (07/18/2021 9:07 AM EST) HIV-1/2 ANTIGEN AND ANTIBODIES, 4TH GENERATION W/ REFLEX NON-REACT NASEEM NON-REACT NASEEM [facility] Comment: HIV-1 antigen and HIV-1/HIV-2 [...] ? For additional information please refer to http://[email or web address]/faq/BWA611 (This link is being provided for informational/ educational purposes only.) ? The performance of this assay has not been clinically validated in patients less than 2 years old. ?? 07/18/2021 9:07 AM EST Flora Santiago INSURANCE CUSTOMER SERVICE SPECIALIST LAB BLOOD ORDERABLES Final Res ult [facility] [address] [place] [address], * Colonoscopy (03/17/2021) Colonoscopy Normal Normal Narrative Debi Zamora - 03/17/2021 Repeat in 5 years tubular adenoma Historical Provider MD HEALTH MAINTENANCE Final Result from Last 3 Months or Most Recently Relevant to Health Maintenance Insurance [employer] [facility] Member Subscriber Plan / Payer (Ef fective 2022-Present) Name:Chuy Stanleyardo Relation to Subscriber:Self Name:Oscar Stanleyo Payer ID:Not on file Group ID:Not on file Type:Medicaid Address: [address] [place] ADULT GENERIC OTHER Care Teams Grain And Yeast Plants Supervisor Relationship Specialty Start Date End Date Gustavo SantiagoCIARRA herrera [address] [place] [address] PCP - General Family Medicine 05/02/21 Sherin Hall, RN [address] [place] [address] School Age Lead Teacher Family Medicine 07/30/23 Juan Jose Deshpande MD [address] [place] [address] Nephrology 06/13/24 Michael Glass MD [address] [place] [address] Dr [address] [place] [address] General Surgery 06/13/24 Demetrius Austin MD [address] [place] [address] Orthopaedic Surgery 06/13/24 Harry Garcia MD [address] [place] [address] Gastroenterology 06/13/24 Jovany Feliciano MD [address] [place] [address] Cardiology 06/13/24
--- OUTSIDE RECORDS SUMMARY | 2024-08-13 13:24 | XMS_ITS | Encounter Summary ---
Author Organization [employer] Address [address] [facility] 7t [place] [address] Care Team Providers Care White Kid Buffer Name Role Phone Flora Santiago CIARRA Primary Care Provider [phone] Sherin Hall RN Unavailable [phone] Juan Jose Deshpande MD Unavailable [phone] Michael Glass MD Unavailable [phone] Demetrius Austin MD Unavailable Harry Garcia MD Unavailable Jovany Feliciano MD Unavailable [phone] Reason for Visit * Reason Onset Date Comments Chart Prep 08/07/2024 Encounter Details Date Type Department Care Team (Late st Contact Info) Description 08/07/2024 Telephone [facility] [address] [place] [address] Owen Hughes MA Chart Prep Social History Tobacco Use Types Packs/Day Years [...] encounter Miscellaneous Notes * Telephone Encounter - Owen Anderson MA - 08/07/2024 4:59 PM EST Chart Prep Labs: done Images: done Vaccines due: yes Referrals: pending appt Screenings: eye exam , Foot Exam, Urine Protein Overdue care gaps: A1C, Glucose documented in this encounter Plan of Treatment Upcoming Encounters Date Type Department Care Team (Late st Contact Info) Description 08/18/2024 9:30 AM EST Medication Management [facility] [address] [place] [address] Kandi Panda, PharmD [address] [place] [address] documented as of this encounter Goals Goal [...] documented as of this encounter Care Teams White Kid Buffer Relationship Specialty Start Date End Date Flora Santiago FNP [address] [place] [address] PCP - General Family Medicine 05/02/21 Sherin Hall, RN [address] [place] [address] Real Estate Agent Family Medicine 07/30/23 Juan Jose Deshpande MD [address] [place] [address] Nephrology 06/13/24 Michael Glass MD [address] [place] [address] [address] [place] [address] General Surgery 06/13/24 Demetrius Austin MD [address] [place] [address] Orthopaedic Surgery 06/13/24 Harry Garcia MD [address] [place] [address] Gastroenterology 06/13/24 Jovany Feliciano MD [address] [place] [address] Cardiology 06/13/24 documented as of this encounter
--- OUTSIDE RECORDS SUMMARY | 2024-08-13 13:24 | XMS_ITS | Encounter Summary ---
Author Organization [employer] Address [address] [place] [address] 7t [place] [address] Care Team Providers Care Door Opener Name Role Phone Flora Santiago RESEARCH INTERVIEWER Primary Care Provider [phone] Sherin Hall RN Unavailable [phone] Juan Jose Deshpande MD Unavailable [phone] Michael Glass MD Unavailable [phone] Demetrius Austin MD Unavailable Harry Garcia MD Unavailable [phone] Jovany Feliciano MD Unavailable [phone] Reason for Referral * Consultation (Routine) - Authorized Specialty Diagnoses / Procedures Referred By Jana t Referred To Contact Pharmacy Diagnoses Type 2 diabetes mellitus with hyperglycemia, with long-term current use of insulin ([facility]) Divya Amos MD [address] [place] [address] Phone: tel: fax: Referral ID Status Reason Start Date Expiration Date Visits Requested Visits Authorized [id number] Authorized Consult and Treat 06/11/2024 06/11/2025 6 6 Encounter Details Date Type Department Care Team (Late st Contact Info) Description 06/11/2024 Orders Only [facility] [address] [place], [place] [phone] Divya Amos MD [address] [place], [place] [phone] Type 2 diabetes mellitus with hyperglycemia, with long-term current use of insulin ([facility]) (Primary Dx) Social History Tobacco [...] Description 08/18/2024 9:30 AM EST Medication Management [facility] [address] [place] [address] Kandi Panda, Fredrick [address] [place] [address] Scheduled Referrals Name Type Priority Associated Diagnoses Orde r Schedule Referral to Pharmacy CDTM Outpatient Referral Routine Type 2 diabetes mellitus with hyperglycemia, with long-term current use of insulin ([facility]) Ordered: 06/11/2024 documented as of [...] hyperglycemia, with long-term current use of insulin ([facility])- Primary documented in this encounter Additional Health Concerns Assessment Noted Time PHQ-9 Depression Total Score: 0 11/30/19 11:07 AM EDT documented as of this encounter Care Teams Door Opener Relationship Specialty Start Date End Date Flora Santiago FNP [address] [place] [address] PCP - General Family Medicine 05/02/21 Sherin Hall, RN [address] [place] [address] Dampener Operator Family Medicine 07/30/23 Juan Jose Deshpande MD [address] [place] [address] Nephrology 06/13/24 Michael Glass MD [address] [place] [address] Dr 3[address] [place] [address] General Surgery 06/13/24 Demetrius Austin MD [address] [place] [address] Orthopaedic Surgery 06/13/24 Harry Garcia MD [address] 3rd [place] [address] Gastroenterology 06/13/24 Jovany Feliciano MD [address] 3rd [place] [address] Cardiology 06/13/24 documented as of this encounter
--- OUTSIDE RECORDS SUMMARY | 2024-08-13 13:24 | XMS_ITS | Encounter Summary ---
Author Organization [employer] Address [address] [facility] 7t [place] [address] Care Team Providers Care Hospital Medical Assistant Name Role Phone Flora Santiago Primary Care Provider [phone] Sherin Hall RN Unavailable [phone] Juan Jose Deshpande MD Unavailable [phone] Michael Glass MD Unavailable [phone] Demetrius Austin MD Unavailable Harry Garcia MD Unavailable [phone] Jovany Feliciano MD Unavailable [phone] Reason for Visit * Reason Comments Med Refill Encounter Details Date Type Department Care Team (Late st Contact Info) Description 08/08/2024 Refill [facility] [address] [place] [address] Flora Santiago FNP [address] [place], [place] [phone] Social History Tobacco Use Types Packs/Day Years [...] Description 08/18/2024 9:30 AM EST Medication Management [facility] [address] [place] [address] Kandi Panda, PharmD [address] [place] [address] documented as of this encounter Goals Goal [...] documented as of this encounter Care Teams Hospital Medical Assistant Relationship Specialty Start Date End Date Flora Santiago FNP [address] [place] [address] PCP - General Family Medicine 05/02/21 Sherin Hall, RN [address] [place] [address] Speech Coach Family Medicine 07/30/23 Juan Jose Deshpande MD [address] [place] [address] Nephrology 06/13/24 Michael Glass MD [address] [place] [address] Dr [address] [place] [address] General Surgery 06/13/24 Demetrius Austin MD [address] [place] [address] Orthopaedic Surgery 06/13/24 Harry Garcia MD [address] [address] Gastroenterology 06/13/24 Jovany Feliciano MD [address] [place] [address] Cardiology 06/13/24 documented as of this encounter
--- OUTSIDE RECORDS SUMMARY | 2024-08-13 13:24 | XMS_ITS | Encounter Summary ---
Author Organization [employer] Address [address] [facility] 7t [place] [address] Care Team Providers Care Director Of Public Safety Name Role Phone Flora Santiago MARKET DEVELOPER Primary Care Provider [phone] Sherin Hall RN Unavailable [phone] Juan Jose Deshpande MD Unavailable [phone] Michael Glass MD Unavailable [phone] Demetrius Austin MD Unavailable Harry Garcia MD Unavailable [phone] Jovany Feliciano MD Unavailable Encounter Details Date Type Department Care Team (Late st Contact Info) Description 07/14/2022 Orders Only [facility] [address] [place] [address] Shahnaz Perez LPN Social History Tobacco Use [...] Department Care Team (Late Contact Info) Description 08/18/2024 9:30 AM EST Medication Management [facility] [address] [place] [address] Kandi Panda, Fredrick [address] [place] [address] documented as of this encounter Visit Diagnoses Not on filedocumented in this encounter Care Teams Director Of Public Safety Relationship Specialty Start Date End Date Flora Santiago FNP [address] [place] [address] PCP - General Family Medicine 05/02/21 Sherin Hall, RN [address] [place] [address] Contracting Officer Family Medicine 07/30/23 Juan Jose Deshpande MD [address] [place] [address] Nephrology 06/13/24 Michael Glass MD [address] [place] [address] Dr [address] [place] [address] General Surgery 06/13/24 Demetrius Austin MD [address] [place] [address] Orthopaedic Surgery 06/13/24 Harry Garcia MD [address] [place] [address] Gastroenterology 06/13/24 Jovany Feliciano MD [address] [place] [address] Cardiology 06/13/24 documented as of this encounter
--- OUTSIDE RECORDS SUMMARY | 2024-08-13 13:24 | XMS_ITS | Encounter Summary ---
Author Organization [employer] Address [address] [facility] 7t [place] [address] Care Team Providers Care Beverage Sales Consultant Name Role Phone Flora Santiago Primary Care Provider [phone] Sherin Hall RN Unavailable [phone] Juan Jose Deshpande MD Unavailable [phone] Michael Glass MD Unavailable [phone] Demetrius Austin MD Unavailable Harry Garcia MD Unavailable [phone] Jovany Feliciano MD Unavailable Reason for Visit * Reason Onset Date Comments ER Follow-up 07/21/2024 Encounter Details Date Type Department Care Team ([facility] st Contact Info) Description 07/21/2024 Telephone [facility] MED [facility] PEDS [address] [place], [place] [phone] Flora Santiago FNP [address] [place], [place] [phone] ER Follow-up Social History Tobacco Use Types [...] Center 08/07/2024 3:00 PM Angelica VAZQUEZ DENT [facility] 08/11/2024 11:30 AM CIARRA Josue CHC MED [facility] 08/18/2024 9:30 AM Kandi Panda PharmD MEDICINE [facility] Patient verbalized understanding and denied having any further questions or concerns at this time. Patient to follow up as needed. * Telephone Encounter - Cece Vargas - 07/21/2024 9:51 AM EST Patient calling to report ED visit on : Date: 07/17/24 Hospital: [facility] Seen for: chest pain Symptomatic No *if yes message should go to Triage Patient advised will forward to team nurse for follow up documented in this encounter Plan of Treatment Upcoming Encounters Date Type Department Care Team (Late st Contact Info) Description 08/18/2024 9:30 AM EST Medication Management [facility] MEDICINE [address] [place] [address] Kandi Panda PharmD [address] [place] [address] documented as of this encounter Goals Goal [...] documented as of this encounter Care Teams Beverage Sales Consultant Relationship Specialty Start Date End Date Flora Santiago FNP [address] [place] [address] PCP - General Family Medicine 05/02/21 Sherin Hall, RN [address] [place] [address] Development Professional Family Medicine 07/30/23 Juan Jose Deshpande MD [address] [place] [address] [address] [place] [address] Nephrology 06/13/24 Michael Glass MD [address] [place] [address] Dr 3rd [place] [address] General Surgery 06/13/24 Demetrius uAstin MD [address] [place] [address] Orthopaedic Surgery 06/13/24 Harry Garcia MD [address] 3rd [place] [address] Gastroenterology 06/13/24 Jovany Feliciano MD [address] 3rd [place] [address] Cardiology 06/13/24 documented as of this encounter
[2024-08-15 10:48] LABS: Alpha Fetoprotein 2.7 ng/mL (<6.1)
[2024-08-15 17:58] LABS: IgA 1062 mg/dL (47-310); IgG 1318 mg/dL (600-1640); IgM 195 mg/dL (50-300)
== END 2024-08-13 11:30 | disposition home or self-care (01) ==
LOC: HO.LAB 11:29
PROVIDERS: PCP Registered Nurse; Referring Provider Registered Nurse; Visit Provider Internal Medicine Hypertension Specialist
DX: N18.31 Chronic kidney disease, stage 3a (principal); K76.9 Liver disease, unspecified; R80.9 Proteinuria, unspecified; N17.9 Acute kidney failure, unspecified; E87.1 Hypo-osmolality and hyponatremia
CPT/HCPCS: 36415; 80048; 80076; 81001; 82105; 82784; 85025; 86334

== ENCOUNTER → 2024-08-20 12:57 | Outpatient (REF) | payer MEDICAID, SELFPAY ==
--- NOTE | 2024-08-20 13:00 | CA_ITS ---
Transthoracic Echocardiogram Patient (Last, First, Middle): Steven Stanley, Gender: Male Date of : 1965 Age: 59 Procedure Date: 08/20/2024 Procedure Type: Transthoracic Echocardiogram Location: OP Height: 170.18 cm Weight: 87.09 kg BSA: 1.99 m2 Heart Rate: bpm BP: 130 / 84 mmHg Sports Management Internship: [facility] Referring MD: Mikhail Rowland NP Language Specialist: Michael Sol MD Symptoms: R01.1 - Cardiac murmur, unspecified Study Quality: Good ECG Rhythm: Sinus Conclusions: - 1. Normal LV ejection fraction of 60-65% with impaired relaxation filling pattern 2. At least moderate aortic stenosis with mean gradient of 24 mm Hg 3. Normal RV systolic pressure 4. No gross pericardial effusion Findings Left Ventricle Normal left ventricular size, thickness, and systolic function. The visually estimated ejection fraction is between 60-65%. Spectral Doppler is indicative of an impaired relaxation filling pattern. E/E prime ratio is between 8 and 15 consistent with indeterminate filling pressures. Right Ventricle Normal right ventricular cavity size and systolic function. Atria The left atrium is normal in size. There is no evidence of interatrial shunt. The right atrium is normal in size. Aortic Valve There is moderate calcification of the aortic valve. There is moderate aortic valve stenosis. The peak aortic gradient is 39 mmHg.The mean gradient is 24 mmHg. There is no aortic valve regurgitation. Mitral Valve There is mild anterior and posterior mitral leaflet thickening. There is trace mitral valve regurgitation. There is no mitral valve stenosis. Pulmonic Valve The pulmonic valve was not well visualized. Tricuspid Valve Likely normal tricuspid valve structure and function. There is trace tricuspid valve regurgitation. The right ventricular systolic pressure is normal. The right ventricular systolic pressure is 18 mmHg. Normal right atrial pressure. There is no evidence of pulmonary hypertension. Great Vessels The aorta was not well visualized. The pulmonary artery was not well visualized. Venous The inferior vena cava is normal in size and collapses greater than 50% with inspiration. Pericardium/Pleural There is no evidence of pericardial effusion. Prior Study Comparison Changes noted compared to prior study dated: 01/22/2023. Measurements 2D Linear Measurements IVSd: 1.00 0.6-0.9/0.6-1.0 cm LVIDd: 4.58 3.9-5.3/4.2-5.9 cm LVIDd Index: 2.30 2.4-3.2/2.2-3.1 cm/m2 LVIDs: 3.10 2.0-3.6 cm LVPWd: 1.02 0.7-1.1 cm Ao Root: 3.10 2.1-3.5 cm LA Diam: 4.00 2.7-3.8/3.0-4.0 cm LAIDs Index: 2.01 1.5-2.3 cm/m2 LV Mass: 199.08 67-162/88-224 g LV Mass Index: 100.04 43-95/49-115 g/m2 LVOT Diam: 2.00 3.0+(-)1.3 cm Mitral Valve MV Pk E: 0.83 MV PK A: 0.86 MV Decel Time: 196.00 E/A: 1.00 E'Lateral: 8.27 E'Medial: 5.44 E/E' Med: 15.20 E/E' Lat: 10.00 PHT: 58.00 MVA PHT: 3.79 Decel Marion: 4.21 Aortic Valve AoV Pk Gage: 3.11 AoV Mn Gage: 2.32 AoV VTI: 0.72 AoV Pk Grad: 39.00 Aov Mn Grad: 24.00 GONZALES Cont.VTI: 0.95 LVOT LVOT Pk Gage: 0.98 LVOT Mn Gage: 0.63 LVOT VTI: 0.22 LVOT Pk Grad: 4.00 LVOT Mn Grad: 2.00 LVOT Diam: 2.00 LVOT Area: 3.14 Diastolic Function MV Pk E: 0.83 MV Pk A: 0.86 E/A: 1.00 E'Medial: 5.44 E/E' Med: 15.20 E' Laterial: 8.27 E/E' Lat: 10.00 Right Ventricle TAPSE (mm): 28.00 TVS' Gage: 13.00 Tricuspid Valve TR Pk Gage: 1.94 TR Pk Grad: 15.00 RA Press: 3.00 RVSP: 18.00 Great Vessels Aorta Ao Root-2D: 3.10 2.0-3.7 cm Pulmonary Valve PV Pk Gage: 1.08 Peak PV Grad: 5.00 Updated in Other Vendor System with Status of Final Michael Sol MD electronically signed on 08/21/2024 12:54:28 PM with status of Final
--- OUTSIDE RECORDS SUMMARY | 2024-08-20 14:17 | XMS_ITS | Encounter Summary ---
Author Organization [employer] Address 75 [facility] 7t [place] [address] Care Team Providers Care Casino Floor Walker Name Role Phone Flora Santiago Primary Care Provider [phone] Sherin Hall RN Unavailable [phone] Juan Jose Deshpande MD Unavailable [phone] Michael Glass MD Unavailable [phone] Demetrius Austin MD Unavailable Harry Garcia MD Unavailable [phone] Jovany Feliciano MD Unavailable Encounter Details Date Type Department Care Team (Late st Contact Info) Description 04/30/[address] [facility] 230 [place] [address] Flora Santiago FNP [address] [place], [place] [id number] Social History Tobacco Use Types Packs/Day Years [...] Care Team (Late st Contact Info) Description 09/08/2024 9:30 AM EST Medication Management [facility] 230 [place] [address] Kandi Panda, PharmD 230 [place] [address] documented as of this encounter Goals Goal [...] documented as of this encounter Care Teams Casino Floor Walker Relationship Specialty Start Date End Date Flora Santiago FNP 230 [place] [address] PCP - General Family Medicine 05/02/21 Sherin Hall, RN 230 [place] [address] Tractor Operator Laser Leveling Family Medicine 07/30/23 Juan Jose Deshpande MD [address] [place] [address] Nephrology 06/13/24 Michael Glass MD [address] [place] [address] Dr [address] [place] [address] General Surgery 06/13/24 Demetrius Austin MD [address] [place] [address] Orthopaedic Surgery 06/13/24 Harry Garcia MD [address] [place] [address] Gastroenterology 06/13/24 Jovany Feliciano MD [address] [place] [address] Cardiology 06/13/24 documented as of this encounter
--- OUTSIDE RECORDS SUMMARY | 2024-08-20 14:17 | XMS_ITS | Encounter Summary ---
Author Organization [employer] Address 75 [facility] 7t [place] [address] Care Team Providers Care Concrete Pipe Plant Supervisor Name Role Phone Flora Santiago Primary Care Provider [phone] Sherin Hall RN Unavailable [phone] Juan Jose Deshpande MD Unavailable [phone] Michael Glass MD Unavailable [phone] Demetrius Austin MD Unavailable Harry Garcia MD Unavailable [phone] Jovany Feliciano MD Unavailable Kandi Panda PharmD Unavailable Encounter Details Date Type Department Care Team (Late st Contact Info) Description 02/15/2023 Telephone [facility] 230 [place] [address] Flora Santiago FNP 505 [place], [place] [phone] Social History Tobacco Use Types Packs/Day Years [...] call from sarah. Please contact pt at [phone] (Bhutanese) documented in this encounter Plan of Treatment Upcoming Encounters Date Type Department Care Team (Late st Contact Info) Description 09/08/2024 9:30 AM EST Medication Management [facility] 230 [place] [address] Kandi Panda PharmD 230 [place] [address] documented as of this encounter Visit Diagnoses Not on filedocumented in this encounter Care Teams Concrete Pipe Plant Supervisor Relationship Specialty Start Date End Date Flora Santiago FNP 230 [place] [address] PCP - General Family Medicine 05/02/21 Sherin Hall, RN 230 [place] [address] High School Industrial Arts Teacher Family Medicine 07/30/23 Juan Jose Deshpande MD [address] [place] [address] Nephrology 06/13/24 Michael Glass MD [address] [place] [address] Dr 3rd [place] [address] General Surgery 06/13/24 Demetrius Austin MD [address] [place] [address] Orthopaedic Surgery 06/13/24 Harry Garcia MD [address] [place] [address] Gastroenterology 06/13/24 Jovany Feliciano MD [address] [place] [address] Drive 3rd [place] [address] Cardiology 06/13/24 Kandi Panda, Fredrick [address] [place] [address] Pharmacist Internal Medicine 08/18/24 documented as of this encounter
--- OUTSIDE RECORDS SUMMARY | 2024-08-20 14:17 | XMS_ITS | Clinical Summary ---
Author Organization [facility] Address [address] [facility] [address] [place] [address] Phone Care Team Providers Care Preboarder Name Role Phone Unavailable Primary Care Provider [...] 08/09/2020 Influenza Vaccine (#1) 2024 Insurance [place]ICA[place]
--- OUTSIDE RECORDS SUMMARY | 2024-08-20 14:17 | XMS_ITS | Encounter Summary ---
Author Organization [employer] Address 75 [facility] 7t [place] [address] Care Team Providers Care Gaming Department Head Name Role Phone Flora Santiago PRESIDENT COMMERCIAL BANK Primary Care Provider [phone] Sherin Hall RN Unavailable [phone] Juan Jose Deshpande MD Unavailable [phone] Michael Glass MD Unavailable Demetrius Austin MD Unavailable Harry Garcia MD Unavailable [phone] Jovany Feliciano MD Unavailable [phone] Kandi Panda PharmD Unavailable [phone] Encounter Details Date Type Department Care Team (Late st Contact Info) Description 05/25/2023 Abstract [facility] MED[facility]INE 230 [place] [address] Debi Zamora Social History Tobacco Use Types Packs/Day Years Used Date Smoking Tobacco: Never Passive Smoke Exposure: Never Smokeless Tobacco: Never Alcohol Use Standard Drinks/Week Comments Never 0 (1 standard drink = 0.6 oz pur e alcohol) Housing Stability Answer Date Recorded What is your housing situation today? I have angelo renato 04/24/[address] you li [...] Description 09/08/2024 9:30 AM EST Medication Management [facility] MEDICINE 230 [place], [place] [phone] Kandi Panda PharmD 230 [place] [address] documented as of this encounter Procedures Procedure Name Priority Date/Time Associated Diagnosis Comments COLONOSCOPY Routine 03/17/2021 documented in this encounter Results * Colonoscopy (03/17/2021) Colonoscopy Normal Normal Narrative Deib Zamora - 03/17/2021 Repeat in 5 years tubular adenoma Historical Provider HEALTH MAINTENANCE Final Result documented in this encounter Visit Diagnoses Not on filedocumented in this encounter Care Teams Gaming Department Head Relationship Specialty Start Date End Date Flora Santiago FNP 230 [place], [place] [phone] PCP - General Family Medicine 05/02/21 Sherin Hall, MICHELLE [address] [place] [address] Tensile Tester Family Medicine 07/30/23 Juan Jose Deshpande MD [address] [place] [address] Nephrology 06/13/24 Michael Glass MD [address] [place] [address] 3rd [place] [address] General Surgery 06/13/24 Demetrius Austin MD [address] [place] [address] Orthopaedic Surgery 06/13/24 Harry Garcia MD [address] [place] [address] Gastroenterology 06/13/24 Jovany Feliciano MD [address] [place] [address] Cardiology 06/13/24 Kandi Panda, Fredrick [address] [place] [address] Pharmacist Internal Medicine 08/18/24 documented as of this encounter
--- OUTSIDE RECORDS SUMMARY | 2024-08-20 14:17 | XMS_ITS | Encounter Summary ---
Author Organization [employer] Address 75 [facility] 7t [place] [address] Care Team Providers Care Director Of Product Development Name Role Phone Flora Santiago Primary Care Provider [phone] Sherin Hall RN Unavailable [phone] Juan Jose Deshpande MD Unavailable [phone] Michael Glass MD Unavailable [phone] Demetrius Austin MD Unavailable Harry Garcia MD Unavailable [phone] Jovany Feliciano MD Unavailable Kandi Panda PharmD Unavailable [phone] Reason for Visit * Reason Onset Date Comments Returning Call Back 12/19/2022 Encounter Details Date Type Department Care Team (Late st Contact Info) Description 12/19/2022 Telephone [facility] MED[facility]INE 230 [place] [address] Flora Santiago FNP [address] [place], [place] [phone] Returning Call Back Social History Tobacco Use [...] Description 09/08/2024 9:30 AM EST Medication Management [facility] 230 [place] [address] Kandi Panda PharmD 230 [place] [address] documented as of this encounter Visit Diagnoses Not on filedocumented in this encounter Care Teams Director Of Product Development Relationship Specialty Start Date End Date Flora Santiago FNP 230 [place] [address] PCP - General Family Medicine 05/02/21 Sherin Hall, RN 230 [place] [address] Sustainable Systems Analyst Family Medicine 07/30/23 Juan Jose Deshpande MD [address] [place] [address] Nephrology 06/13/24 Michael Glass MD [address] [place] [address] Dr 3rd [place] [address] General Surgery 06/13/24 Demetrius Austin MD [address] [place] [address] Orthopaedic Surgery 06/13/24 Harry Garcia MD [address] [place] [address] Drive [address] [place] [address] Gastroenterology 06/13/24 Jovany Feliciano MD [address] [place] [address] Cardiology 06/13/24 Kandi Panda PharmD [address] [place] [address] Pharmacist Internal Medicine 08/18/24 documented as of this encounter
--- OUTSIDE RECORDS SUMMARY | 2024-08-20 14:17 | XMS_ITS | Encounter Summary ---
Author Organization [employer] Address [address] [place] [address] 7t [place] [address] Care Team Providers Care Casing Puller Name Role Phone Flora Santiago FPGA DESIGN ENGINEER Primary Care Provider [phone] Sherin Hall RN Unavailable [phone] Juan Jose Deshpande MD Unavailable [phone] Michael Glass MD Unavailable [phone] Demetrius Austin MD Unavailable Harry Garcia MD Unavailable [phone] Jovany Feliciano MD Unavailable [phone] Kandi Panda PharmD Unavailable Encounter Details Date Type Department Care Team (Late st Contact Info) Description 02/22/2023 Orders Only [facility] MEDICINE 230 [place], [place] [phone] Yanique Hart MD 230 [place], [place] [phone] Other ascites (Primary Dx) Social History Tobacco [...] Description 09/08/2024 9:30 AM EST Medication Management [facility] 230 [place] [address] Kandi Panda, Fredrick 230 [place] [address] Scheduled Orders Name Type Priority Associated Diagnoses [...] Primary documented in this encounter Care Teams Casing Puller Relationship Specialty Start Date End Date Flora Santiago FNP 230 [place] [address] PCP - General Family Medicine 05/02/21 Sherin Hall, RN 230 [place] [address] Goldsmith Apprentice Family Medicine 07/30/23 Juan Jose Deshpande MD [address] [place] [address] Nephrology 06/13/24 Michael Glass MD [address] [place] [address] Dr 3rd [place] [address] General Surgery 06/13/24 Demetrius Austin MD [address] [place] [address] Orthopaedic Surgery 06/13/24 Harry Garcia MD [address] 3rd [place] [address] Gastroenterology 06/13/24 Jovany Feliciano MD [address] [place] [address] Cardiology 06/13/24 Kandi Panda PharmD [address] [place] [address] Pharmacist Internal Medicine 08/18/24 documented as of this encounter
--- OUTSIDE RECORDS SUMMARY | 2024-08-20 14:17 | XMS_ITS | Encounter Summary ---
Author Organization [employer] Address 75 [facility] 7t [place] [address] Care Team Providers Care Carpet Mechanic Name Role Phone Flora Santiago Primary Care Provider [phone] Sherin Hall RN Unavailable [phone] Juan Jose Deshpande MD Unavailable [phone] Michael Glass MD Unavailable [phone] Demetrius Austin MD Unavailable Harry Garcia MD Unavailable [phone] Jovany Feliciano MD Unavailable Kandi Panda PharmD Unavailable Reason for Visit * Reason Onset Date Comments ER Follow-up 12/19/2022 Encounter Details Date Type Department Care Team (Late st Contact Info) Description 12/19/[address] [facility] MEDICINE 230 [place] [address] Flora Santiago FNP [address] [place], [place] [phone] ER Follow-up Social History Tobacco Use Types [...] - 12/20/2022 12:22 PM EDT T/C to [phone] through [employer] id - [id number] to schedule HDF , No answer. LVM to call back on [phone]. * Telephone Encounter - Elizabeth Call - 12/19/2022 3:14 PM EDT Tc from pt requesting a HDF appt. Pt was admitted at [facility] on 12/09/22 and discharged on 12/10/22 due to hernia by belly button, lower back pain, liver and left hip pain. Patient advised will forward to team documented in this encounter Plan of Treatment Upcoming Encounters Date Type Department Care Team (Late st Contact Info) Description 09/08/2024 9:30 AM EST Medication Management [facility] MEDICINE 230 [place] [address] Kandi Panda, Fredrick 230 [place] [address] documented as of this encounter Visit Diagnoses Not on filedocumented in this encounter Care Teams Carpet Mechanic Relationship Specialty Start Date End Date Flora Santiago FNP 230 [place] [address] PCP - General Family Medicine 05/02/21 Sherin Hall, RN 230 [place] [address] Medical Lab Technician Family Medicine 07/30/23 Juan Jose Deshpande MD [address] [place] [address] Nephrology 06/13/24 Michael Glass MD [address] [place] [address] Dr [address] [place] [address] General Surgery 06/13/24 Demetrius Austin MD [address] [place] [address] Orthopaedic Surgery 06/13/24 Harry Garcia MD [address] [address] Gastroenterology 06/13/24 Jovany Feliciano MD [address] [address] Cardiology 06/13/24 Kandi Panda, RobertD 230 [place] [address] Pharmacist Internal Medicine 08/18/24 documented as of this encounter
--- OUTSIDE RECORDS SUMMARY | 2024-08-20 14:18 | XMS_ITS | Encounter Summary ---
Author Organization [employer] Address 75 [facility] 7t [place] [address] Care Team Providers Care Global Professional Name Role Phone Flora Santiago FIRE CAPTAIN MARINE Primary Care Provider [phone] Sherin Hall RN Unavailable [phone] Juan Jose Deshpande MD Unavailable [phone] Michael Glass MD Unavailable [phone] Demetrius Austin MD Unavailable Harry Garcia MD Unavailable [phone] Jovany Feliciano MD Unavailable Kandi Panda PharmD Unavailable Encounter Details Date Type Department Care Team (Late st Contact Info) Description 10/04/2022 Orders Only [facility] [address] [place], [place] [phone] Shahnaz Perez LPN Social History Tobacco Use [...] Description 09/08/2024 9:30 AM EST Medication Management [facility] MEDICINE 230 [place] [address] Kandi Panda, PharmD 230 [place] [address] documented as of this encounter Visit Diagnoses Not on filedocumented in this encounter Care Teams Global Professional Relationship Specialty Start Date End Date Flora Santiago FNP 230 [place] [address] PCP - General Family Medicine 05/02/21 Sherin Hall, RN [address] [place] [address] Foil Stamp Operator Family Medicine 07/30/23 Juan Jose Deshpande MD [address] [place] [address] Nephrology 06/13/24 Michael Glass MD [address] [place] [address] Dr [address] [place] [address] General Surgery 06/13/24 Demetrius Austin MD [address] [place] [address] Orthopaedic Surgery 06/13/24 Harry Garcia MD [address] [place] [address] Gastroenterology 06/13/24 Jovany Feliciano MD [address] [place] [address] Cardiology 06/13/24 Kandi Panda PharmD 230 [place] [address] Pharmacist Internal Medicine 08/18/24 documented as of this encounter
--- OUTSIDE RECORDS SUMMARY | 2024-08-20 14:18 | XMS_ITS | Encounter Summary ---
Author Organization [employer] Address 75 [facility] 7t [place] [address] Care Team Providers Care Paper Production Engineer Name Role Phone [employer]a [employer]a SUBMERSIBLE PILOT Primary Care Provider [phone] Sherin Hall RN Unavailable [phone] Juan Jose Deshpande MD Unavailable [phone] Michael Glass MD Unavailable [phone] Demetrius Austin MD Unavailable Harry Garcia MD Unavailable [phone] Jovany Feliciano MD Unavailable [phone] Kandi Panda PharmD Unavailable [phone] Encounter Details Date Type Department Care Team (Latest Contact Info) Description 08/18/2024 Travel Social History Tobacco Use Types Packs/Day [...] Description 09/08/2024 9:30 AM EST Medication Management [facility] MEDICINE 230 [place] [address] Kandi Panda, PharmD 230 [place] [address] documented as of this encounter Goals Goal [...] documented as of this encounter Care Teams Paper Production Engineer Relationship Specialty Start Date End Date Flora Santiago FNP 230 [place] [address] PCP - General Family Medicine 05/02/21 Sherin Hall, RN 230 [place] [address] Java Software Architect Family Medicine 07/30/23 Juan Jose Deshpande MD [address] [place] [address] Nephrology 06/13/24 Michael Glass MD [address] [place] [address] Dr [address] [place] [address] General Surgery 06/13/24 Demetrius Austin MD [address] [place] [address] Orthopaedic Surgery 06/13/24 Harry Garcia MD 11 [facility] 3rd [place] [address] Gastroenterology 06/13/24 Jovany Feliciano MD [address] [address] Cardiology 06/13/24 Kandi Panda PharmD 230 [place] [address] Pharmacist Internal Medicine 08/18/24 documented as of this encounter
--- OUTSIDE RECORDS SUMMARY | 2024-08-20 14:18 | XMS_ITS | Encounter Summary ---
Author Organization [employer] Address 75 [facility] 7t [place] [address] Care Team Providers Care Nail Welter Name Role Phone Flora Santiago INSTRUCTIONAL SPECIALIST Primary Care Provider [phone] Sherin aHll RN Unavailable [phone] Juan Jose Deshpande MD Unavailable [phone] Michael Glass MD Unavailable [phone] Demetrius Austin MD Unavailable Harry Garcia MD Unavailable [phone] Jovany Feliciano MD Unavailable [phone] Encounter Details Date Type Department Care Team [...] Description 09/08/2024 9:30 AM EST Medication Management [facility] MEDICINE 230 [place] [address] Kandi Panda, RobertD 230 [place] [address] documented as of this encounter Goals Goal [...] documented as of this encounter Care Teams Nail Welter Relationship Specialty Start Date End Date Flora Santiago FNP 230 [place] [address] PCP - General Family Medicine 05/02/21 Sherin Hall, RN 230 [place] [address] Business Objects Consultant Family Medicine 07/30/23 Juan Jose Deshpande MD [address] [place] [address] Nephrology 06/13/24 Michael Glass MD [address] [place] [address] 3[address] [place] [address] General Surgery 06/13/24 Demetrius Austin MD [address] [place] [address] Orthopaedic Surgery 06/13/24 Harry Garcia MD 11 [facility] 3rd [place] [address] Gastroenterology 06/13/24 Jovany Feliciano MD 11 [facility] [address]rd [place] [address] Cardiology 06/13/24 documented as of this encounter
--- OUTSIDE RECORDS SUMMARY | 2024-08-20 14:18 | XMS_ITS | Encounter Summary ---
Author Organization [employer] Address [address] [place] [address] 7t [place] [address] Care Team Providers Care Bit Sander Name Role Phone Gustavo Santiagole EQUIPMENT ANALYST Primary Care Provider [phone] Sherin Hall RN Unavailable [phone] Juan Jose Deshpande MD Unavailable [phone] Michael Glass MD Unavailable [phone] Demetrius Austin MD Unavailable Harry Garcia MD Unavailable Jovany Feliciano MD Unavailable [phone] Kandi Panda PharmD Unavailable [phone] Reason for Referral * Consultation (Routine) - Authorized Specialty Diagnoses / Procedures Referred By Contgilson t Referred To Contact Pharmacy Diagnoses Type 2 diabetes mellitus with hyperglycemia, with long-term current use of insulin ([facility]) Divya Amos MD 230 [place] [address] Phone: tel: fax: Referral ID Status Reason Start Date Expiration Date Visits Requested Visits Authorized [id number] Authorized Consult and Treat 06/11/2024 06/11/2025 6 6 Encounter Details Date Type Department Care Team (Late st Contact Info) Description 06/11/2024 Orders Only [facility] MEDICINE 230 [place], [place] [phone] Divya Amos MD [address] [place], [place] [phone] Type 2 diabetes mellitus with hyperglycemia, with long-term current use of insulin ([facility]) (Primary Dx) Social History Tobacco Use Types [...] Description 09/08/2024 9:30 AM EST Medication Management [facility]ICINE 230 [place] [address] Kandi Panda, Fredrick [address] [place] [address] Scheduled Referrals Name Type Priority Associated Diagnoses Orde r Schedule Referral to Pharmacy CDTM Outpatient Referral Routine Type 2 diabetes mellitus with hyperglycemia, with long-term current use of insulin ([facility]) Ordered: 06/11/2024 documented as of this encounter Goals Goal Patient Goal Type Associated Problems Recent Progress Patient-Stated? Author Blood Pressure < 140/90 Blood Pressure 139/82(2023 8:57 AM EST) No Jose Maria Novak Hemoglobin A1c < 7 Result Component 7.6( 9:20 AM EST) No Jose Maria Nvoak documented as of this encounter Visit Diagnoses Diagnosis Type 2 diabetes mellitus with hyperglycemia, with long-term current use of insulin ([facility])- Primary documented in this encounter Additional Health Concerns Assessment Noted Time PHQ-9 Depression Total Score: 0 11/30/19 11:07 AM EDT documented as of this encounter Care Teams Bit Sander Relationship Specialty Start Date End Date Flora Santiago FNP 230 [place] [address] PCP - General Family Medicine 05/02/21 Sherin Hall, RN [address] [place] [address] Certified Green Building Engineer Family Medicine 07/30/23 Juan Jose Deshpande MD [address] [place] [address] Nephrology 06/13/24 Michael Glass MD [address] [place] [address] Dr 3rd [place] [address] General Surgery 06/13/24 Demetrius Austin MD [address] [place] [address] Orthopaedic Surgery 06/13/24 Harry Garcia MD [address] [place] [address] Gastroenterology 06/13/24 Jovany Feliciano MD [address] [place] [address] Cardiology 06/13/24 Kandi Panda, Fredrick [address] [place] [address] Pharmacist Internal Medicine 08/18/24 documented as of this encounter
--- OUTSIDE RECORDS SUMMARY | 2024-08-20 14:18 | XMS_ITS | Encounter Summary ---
Author Organization [employer] Address 75 [facility] 7t [place] [address] Care Team Providers Care Exchange Floor Manager Name Role Phone Flora Santiago Primary Care Provider [phone] Sherin Hall RN Unavailable [phone] Juan Jose Deshpande MD Unavailable [phone] Michael Glass MD Unavailable [phone] Demetrius Austin MD Unavailable Harry Garcia MD Unavailable [phone] Jovany Feliciano MD Unavailable Reason for Visit * Reason Comments Med Refill Encounter Details Date Type Department Care Team (Late st Contact Info) Description 08/08/2024 Refill [facility] [address] [place] [address] Flora Santiago FNP [address] [place] [address] Social History Tobacco Use Types Packs/Day Years [...] Description 09/08/2024 9:30 AM EST Medication Management [facility] [address] [place] [address] Kandi Panda, PharmD [address] [place] [address] documented as of this encounter Goals Goal [...] documented as of this encounter Care Teams Exchange Floor Manager Relationship Specialty Start Date End Date Flora Santiago FNP [address] [place] [address] PCP - General Family Medicine 05/02/21 Sherin Hall, RN [address] [place] [address] Fiction And Nonfiction Prose Writer Family Medicine 07/30/23 Juan Jose Deshpande MD [address] [place] [address] Nephrology 06/13/24 Michael Glass MD [address] [place] [address] [address] [place] [address] General Surgery 06/13/24 Demetrius Austin MD [address] [place] [address] Orthopaedic Surgery 06/13/24 Harry Garcia MD [address] [address] Gastroenterology 06/13/24 Jovany Feliciano MD [address] [place] [address] Cardiology 06/13/24 documented as of this encounter
--- OUTSIDE RECORDS SUMMARY | 2024-08-20 14:18 | XMS_ITS | Encounter Summary ---
Author Organization [employer] Address 75 [facility] 7t [place] [address] Care Team Providers Care Block Setter Gypsum Name Role Phone Flora Santiago Primary Care Provider [phone] Sherin Hall RN Unavailable [phone] Juan Jose Deshpande MD Unavailable [phone] Michael Glass MD Unavailable [phone] Demetrius Austin MD Unavailable Harry Garcia MD Unavailable [phone] Jovany Feliciano MD Unavailable Reason for Visit * Reason Comments Med Refill Encounter Details Date Type Department Care Team (Late st Contact Info) Description 08/14/2024 Refill [facility] [address] [place] [address] Flora Santiago FNP [address] [place] [address] Routine health maintenance Social History Tobacco Use Types Packs/Day Years [...] Description 09/08/2024 9:30 AM EST Medication Management [facility] [address] [place] [address] Kandi Panda, PharmD [address] [place] [address] documented as of this encounter Goals Goal Patient Goal Type Associated Problems Recent Progress Patient-Stated? Author Blood Pressure < 140/90 Blood Pressure 139/82(2023 8:57 AM EST) No Jose Maria Novak Hemoglobin A1c < 7 Result Component 7.6( 9:20 AM EST) No Jose Maria Novak documented as of this encounter Visit Diagnoses Diagnosis Routine health maintenance Unspecified examination documented in this encounter Additional Health Concerns Assessment Noted Time PHQ-9 Depression Total Score: 0 11/30/19 11:07 AM EDT documented as of this encounter Care Teams Block Setter Gypsum Relationship Specialty Start Date End Date Flora Santiago FNP [address] [place] [address] PCP - General Family Medicine 05/02/21 Sherin Hall, RN [address] [place] [address] Relations Director Family Medicine 07/30/23 Juan Jose Deshpande MD [address] [place] [address] Nephrology 06/13/24 Michael Glass MD [address] [place] [address] Dr [address] [place] [address] General Surgery 06/13/24 Demetrius Austin MD [address] [place] [address] Orthopaedic Surgery 06/13/24 Harry Garcia MD [address] [address] Gastroenterology 06/13/24 Jovany Feliciano MD [address] [address] Cardiology 06/13/24 documented as of this encounter
--- OUTSIDE RECORDS SUMMARY | 2024-08-20 14:18 | XMS_ITS | Encounter Summary ---
Author Organization [employer] Address 75 [facility] 7t [place] [address] Care Team Providers Care Emergency Medical Service Manager Name Role Phone Flora Santiago COURT RECORDER Primary Care Provider [phone] Sherin Hall RN Unavailable [phone] Juan Jose Deshpande MD Unavailable [phone] Michael Glass MD Unavailable [phone] Demetrius Austin MD Unavailable Harry Garcia MD Unavailable [phone] Jovany Feliciano MD Unavailable [phone] Encounter Details Date Type Department Care Team [...] Description 09/08/2024 9:30 AM EST Medication Management [facility] [address] [place] [address] Kandi Panda, PharmD [address] [place] [address] documented as of this encounter Goals Goal Patient Goal Type Associated Problems Recent Progress Patient-Stated? Author Blood Pressure < 140/90 Blood Pressure 139/82(2023 8:57 AM EST) No Jose Maria Novak Hemoglobin A1c < 7 Result Component 7.6( 9:20 AM EST) No Jose Maria Novak documented as of this encounter Procedures Procedure Name Priority Date/Time Associated Diagnosis Comments IMMUNOFIXATION, SERUM Routine 08/13/2024 11:49 AM EST BASIC METABOLIC PANEL Routine 08/13/2024 11:49 AM EST URINALYSIS, COMPLETE Routine 08/13/2024 11:43 AM EST documented in this encounter Results * (ABNORMAL) Immunofixation, Serum (08/13/2024 11:49 AM EST) IMMUNOGLOBULIN G 1318 600 - 1640 mg/dL [facility] IMMUNOGLOBULIN A 1062(A) 47 - 310 mg/dL [facility] Comment:Verified by repeat a nalysis. Immunoglobulin M 195 50 - 300 mg/dL [facility] Comment:THIS TEST WAS PERFOR MED AT:[facility] [place] [phone] GARCIA MD Immunofixation Result SEE NOTE [facility] Comment:No monoclonal protei ns detected. 08/13/2024 11:4 9 AM EST 08/13/2024 11:49 AM EST us Generic External Data Provider LAB BLOOD ORDERAB LES Final Result Performing Organization Address City/State/[facility] Co de Phone Number [facility] [address] [place] [phone] * (ABNORMAL) Basic Metabolic Panel (08/13/2024 11:49 AM EST) Sodium 133(L) 135 - 145 mmol/L [facility] Potassium 4.9 3.3 - 5.1 mmol/L [facility] Chloride 98 96 - 108 mmol/L [facility] Carbon Dioxide 23 22 - 29 mmol/L [facility] Anion Gap 17 12 - 20 [facility] Urea Nitrogen (BUN) 17(H) 9 - 16 mg/dL [facility] Creatinine, Serum 1.10 0.5 - 1.4 mg/dL [facility] Estimated Glomerular Filt Rate >60 [facility] Comment:Chronic Kidney Disea se: Estimated GFR < 60 mL/min/1.18m3Mewtiq Kidney Disease: Estimated GFR < 15 mL/min/1.73m2 Glucose 296(H) 60 - 115 mg/dL [facility] Calcium 9.8 8.4 - 10.2 mg/dL [facility] 08/13/2024 11:4 9 AM EST 08/13/2024 11:49 AM EST us Generic External Data Provider LAB BLOOD ORDERAB LES Final Result Performing Organization Address [facility] Co de Phone Number [facility] [address] [place] [phone] [phone] * (ABNORMAL) Urinalysis Complete (08/13/2024 11:43 AM EST) Color Urine Yellow [facility] Appearance Urine Clear [facility] PH 5.5 5.0 - 9.0 [facility] Glucose Urine UA >=1000(A) Negative mg/dL [facility] Urine Blood Moderate (2+)(A) Negative [facility] Specific Garita - Urine 1.025 1.005 - 1.025 [facility] Urine Protein Trace Neg-Trace mg/dL [facility] Urine Ketones Negative Negative mg/dL [facility] Nitrite Urine Negative Negative [facility] Leukocyte Esterase Urine Negative Negative [facility] RBC Urine 6-10(A) 0 - 2 /HPF [facility] Urine WBC 0-5 0 - 5 /HPF [facility] Urine Squamous Epithelial Cell 0-2 0 - 2 /HPF [facility] Urine Bacteria None Seen None Seen [facility] Hyaline Casts, Urine 0-2 0 - 2 /LPF [facility] 08/13/2024 11:4 3 AM EST 08/13/2024 12:35 PM EST us Generic External Data Provider LAB URINE ORDERAB LES Final Result Performing Organization Address [facility] Co de Phone Number [facility] [address] [place] [phone] documented in this encounter Visit Diagnoses Not on filedocumented in this encounter Additional Health Concerns Assessment Noted Time PHQ-9 Depression Total Score: 0 11/30/19 24 11:07 AM EDT documented as of this encounter Care Teams Emergency Medical Service Manager Relationship Specialty Start Date End Date Flora Santiago FNP [address] [place] [address] PCP - General Family Medicine 05/02/21 Sherin Hall, RN [address] [place] [address] Logging Tractor Operator Family Medicine 07/30/23 Juan Jose Deshpande MD [address] [place] [address] Nephrology 06/13/24 Michael Glass MD [address] [place] [address] [address] [place] [address] General Surgery 06/13/24 Demetrius Austin MD [address] [place] [address] Orthopaedic Surgery 06/13/24 Harry Garcia MD [address] [place] [address] Gastroenterology 06/13/24 Jovany Feliciano MD [address] [place] [address] Cardiology 06/13/24 documented as of this encounter
--- OUTSIDE RECORDS SUMMARY | 2024-08-20 14:18 | XMS_ITS | Encounter Summary ---
Author Organization [employer] [facility] Address [address] [place] [address] 7t [place] [address] Care Team Providers Care Underwriting Clerk Name Role Phone VaneGustavo minasharon LAFLEUR Primary Care Provider [phone] Sherin Hall RN Unavailable [phone] Juan Jose Deshpande MD Unavailable [phone] Michael Glass MD Unavailable [phone] Demetrius Austin MD Unavailable Harry Garcia MD Unavailable [phone] Jovany Feliciano MD Unavailable [phone] Kandi Panda PharmD Unavailable [phone] Encounter Details Date Type Department Care Team (Latest Contact Info) Description 01/13/2021 Abstract [facility] CONVERSIONS Dental, Provider, DDS Social History [...] Description 09/08/2024 9:30 AM EST Medication Management [facility] [address] [place], [place] [phone] Kandi Panda, PharmD [address] [place], [place] [phone] documented as of this encounter Visit Diagnoses Not on filedocumented in this encounter Care Teams Underwriting Clerk Relationship Specialty Start Date End Date Flora Santiago FNP [address] [place] [address] PCP - General Family Medicine 05/02/21 Sherin Hall, RN [address] [place] [address] Glued Wood Tester Family Medicine 07/30/23 Juan Jose Deshpande MD [address] [place] [address] Nephrology 06/13/24 Michael Glass MD [address] [place] [address] General Surgery 06/13/24 Demetrius Austin MD [address] [place] [address] [address] [facility] [address] [place] [address] Orthopaedic Surgery 06/13/24 Harry Garcia MD [address] [place] [address] Gastroenterology 06/13/24 oJvany Feliciano MD [address] [place] [address] Cardiology 06/13/24 Kandi Panda PharmD [address] [place] [address] Pharmacist Internal Medicine 08/18/24 documented as of this encounter
--- OUTSIDE RECORDS SUMMARY | 2024-08-20 14:18 | XMS_ITS | Clinical Summary ---
Author Organization [employer] Address [address] [facility] [address] [place] [address] Care Team Providers Care Box Lining Machine Feeder Name Role Phone VanekeeleyFlora Primary Care Provider [phone] Sherin Hall RN Unavailable [phone] Juan Jose Deshpande MD Unavailable [phone] Michael Glass MD Unavailable [phone] Demetrius Austin MD Unavailable Harry Garcia MD Unavailable [phone] Jovany Feliciano MD Unavailable Kandi Panda PharmD Unavailable Allergies Active Allergy Reactions Criticality Noted Date Comments Atorvastatin High 02/01/2023 Other reaction(s): elevated LFTs Shrimp Extract High 02/01/2023 Other reaction(s): Difficulty Breathing Medications beta carotene (vitamin A) 3 MG (64775 UT) capsule Take 10,000 Units by mouth in the morning. Active zinc sulfate (Zincate) 220 (50 Zn) MG capsule Take 50 mg of elemental zinc by mouth in the morning. Active simethicone (Mylicon) 125 MG chewable tablet Chew 125 mg 3 times daily. PRN Active thiamine (Vitamin B-1) 100 MG tablet Take 100 mg by mouth 3 times daily. Active Continuous Blood Gluc Naturalization Examiner ([place] MobileStyle Bill 2 [place]) device Scan sensor every 8 hours 1 each 023 Active lidocaine (Lidoderm) 5 % patch APPLY 1 PATCH TOPICALLY TO SKIN, LEAVE ON FOR 12 HOURS AND OFF FOR 12 HOURS DIRECTED 30 patch 023 Active TRUEplus Lancets 33G miscIndications :Type 2 diabetes mellitus with hyperglycemia, unspecified whether long-term insulin use ([facility]) TEST BLOOD SUGAR THREE TIMES DAILY 100 each 11 024 Active ezetimibe (Zetia) 10 MG tablet Take 10 mg by mouth in the morning. 024 Active Xifaxan 550 MG tablet TAKE 1 TABLET BY MOUTH THREE TIMES DAILY FOR 2 WEEKS 024 Active insulin pen needle (Sure Comfort Pen [place]) 31G x 5 mm misc USE DIRECTED [...] EVERY 2 WEEKS. 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 ([facility]) USE DIRECTED TO TEST BLOOD SUGAR THREE TIMES DAILY 100 each 11 024 Active Inspra 50 MG tablet TAKE 1 TABLET BY MOUTH EVERY MORNING 90 tablet 1 Active Continuous Glucose Sensor (FreeStyle Bill 2 Sensor) miscIndications :Type 2 diabetes mellitus with hyperglycemia, with long-term current use of insulin ([facility]) USE DIRECTED CHANGE EVERY 14 DAYS 2 each 11 Active Diclofenac Sodium 1 % gel APPLY 2 GRAMS TOPICALLY TO AFFECTED AREA(S) TWICE DAILY NEEDED 100 g 2 024 Active empagliflozin (Jardiance) 25 MG TAKE 1 TABLET BY MOUTH EVERY MORNING 90 tablet 1 025 Active Blood Pressure kitIndications: Primary hypertension Use to check blood pressure once daily and when symptomatic 1 kit Active cholecalciferol VITAMIN D (Vitamin D-3) 50 MCG (1999 UT) tabletIndicatio ns:Routine health maintenance TAKE 1 TABLET BY MOUTH EVERY EVENING 90 tablet 3 Active tadalafil (Cialis) 5 MG tablet Take 1 tablet by mouth Once per day. Active Lancet Device misc 1 each Once daily as needed (to confirm hypoglycmeia). 1 each Active lisinopril 10 MG tabletIndicatio ns:Primary hypertension Take 1 tablet (10 mg) by mouth Once per day. 90 tablet 3 025 2025 Active insulin degludec (Tresiba FlexTouch) 100 UNIT/ML injectionIndica tions:Type 2 diabetes mellitus with hyperglycemia, with long-term current use of insulin (CMS/HCC) INJECT 14 UNITS SUBCUTANEOUSLY AT BEDTIME 15 mL 5 Active insulin lispro (HumaLOG) 100 UNIT/ML injectionIndica tions:Type 2 diabetes mellitus with hyperglycemia, with long-term current use of insulin (CMS/HCC) Inject 20 Units under the skin with breakfast, with lunch, and with evening meal. 15 mL 5 Active lisinopril 40 MG tablet TAKE 1 TABLET BY MOUTH DAILY. CALL A LA OFICINA PARA ARELI 023 2024 Discontinued(D ose adjustment) cholecalciferol (Vitamin D-3) 50 MCG (1999 UT) tabletIndicatio ns:Routine health maintenance TAKE 1 TABLET BY MOUTH EVERY EVENING 90 tablet 3 024 2024 Discontinued Jardiance 25 MG TAKE 1 TABLET BY MOUTH EVERY MORNING 30 tablet 5 024 2024 Discontinued insulin degludec (Tresiba FlexTouch) 100 UNIT/ML injectionIndica tions:Type 2 diabetes mellitus with hyperglycemia, with long-term current use of insulin (CMS/HCC) INJECT 50 UNITS SUBCUTANEOUSLY AT BEDTIME 15 mL 6 024 2024 Discontinued(R eorder (will not trigger notification to Pharmacy)) tadalafil (Cialis) 20 MG tablet TAKE 1 TABLET BY MOUTH 30 MINUTES BEFORE SEXUAL ACTIVITY NEEDED. DO NOT USE MORE THAN 1 TABLET DAILY 024 2024 Discontinued(D ose adjustment) insulin lispro (HumaLOG) 100 UNIT/ML injectionIndica tions:Type 2 diabetes mellitus with hyperglycemia, with long-term current use of insulin ([facility]) Inject 20-25 Units under the skin with breakfast, with lunch, and with evening meal. 15 mL 11 024 2024 Discontinued(R eorder (will not trigger notification to Pharmacy)) Lancet Device misc 1 each Once daily as needed (to confirm hypoglycmeia). 1 each 025 2024 Discontinued Active Problems Problem Noted Date Diagnosed Date Bilateral carpal tunnel syndrome 06/13/2024 Assessment & Plan (06/13/2024 11:47 AM EST): 04/23/24: [facility] - Yasmany BROWNE. EMG with impression of bilateral very [...] thumb bilateral. Referral to Ortho placed. 02/12/24: [facility] - PAVAN Castanon. Eval bilat hand pain, numbness, tingling x 1 year. Referred for EMG and nerve conduction study to test nerves of BUE. Cont to monitor left ring finger to see if locking and catching. Non-recurrent unilateral ing uinal hernia without obstruction or gangrene 04/13/2024 Overview (04/13/2024): Left inguinal hernia repair completed in Fall [address] Glass - [facility] Surgery Umbilical hernia without obstruction and without gangrene 04/13/2024 Overview (04/13/2024): Following with [facility] Surgery - Dr. Glass Consult note in Mar 2024 with plan for surgery small periumbilical hernia Reviewed ED precautions Assessment & Plan (04/13/2024 5:17 PM EDT): Speciality clearance for surgery in process Arthralgia of left temporomandibular joint 02/03 Microhematuria 11/30/2023 Overview (04/13/2024): Followed by [facility] Urology - WILL Harris Cytology (2022): benign [...] eating Call to schedule follow up with [facility] Pharmacy CDTM team Last eye exam: 12/09/2020, [...] -Completed DM visits with Viral Ragsdale RN -Cont Tresiba 50 units at bedtime [...] (08/12/2024 10:06 AM EST): -Previously following with [facility], although transferring to [facility]. -MELD score 8 -Previously completing paracentesis for [...] Plan (06/13/2024 11:54 AM EST): -Following with [facility] GI - Dr. Garcia (last consult note [...] Plan (04/13/2024 5:00 PM EDT): -Following with [facility] GI - Dr. Garcia (last consult note [...] Plan (11/30/2023 11:37 AM EDT): -Following with [facility] - Dr. Garcia -MELD score 8 -Undergoing paracentesis for ascites PRN -Reviewed basic education and lifestyle interventions important for diagnosis of cirrhosis Medications through GI: Eplerenone 50mg daily DC spironolactone (Jun 2023 d/t gynecomastia) Furosemide 20mg daily Rifaximin Following with GI: screening endoscopy, return precautions paracentesis, HCC screening Q6mo (AFP, abd US) Assessment & Plan (06/23/2023 1:58 PM EST): -Following with [facility] - Dr. Garcia -Undergoing paracentesis for [...] Plan (03/30/2023 8:49 PM EDT): -Following with [facility] GI - Dr. Garcia -Reports currently scheduled Q2 weeks for paracentesis -Upcoming paracentesis scheduled week of 04/01/23, with plan for f/u with GI week of 04/08/23 -Reviewed basic education and lifestyle interventions important for diagnosis of cirrhosis Medications through GI: ?? Spironolactone 50mg daily ?? Furosemide 20mg daily Assessment & Plan (02/13/2023 5:57 PM EDT): - followed by Dr. Garcia [facility], last seen in December 2022 - urgent follow-up recommended; we will try calling Biliary acute pancreatitis 09/28/2022 Erosive esophagitis 10/04/2021 Renal stone 09/29/2020 Hypertensive disorder 04/08/2015 Assessment & Plan (06/13/2024 11:57 AM EST): Following with [facility] Neph[facility] (Dr. Deshpande) & [facility] (Dr. Feliciano) Stress test from 2022. Able [...] Plan (04/13/2024 5:14 PM EDT): Following with [facility] (Dr. Deshpande) & [facility] (Dr. Feliciano) Stress test from 2022. Able to exercise 9.2 mets and reached target HR w/o signs of angina. Echo with LVEF 55-60%. Mild aortic stenosis. Lipids: Zetia, Praluent (PCSK9i) Medications: - Continues with lisinopril 10mg daily - Cont furosemide 20-40mg daily (dose adjustments primarily through Nephrology d/t hx hyponatremia and edema) Assessment & Plan (11/30/2023 11:49 AM EDT): Following with [facility] Cards - Dr. Feliciano. Stress test from [...] - Cause/origin likely multifactorial - Following with [facility] Urology - WILL Harris - Cont Cialis 5mg daily and [...] Encounters Date Type Department Care Team Description 08/18/2024 Travel 08/14/2024 Refill [facility] MEDIC[facility] [address] [place] [address] Flora Santiago FNP Routine health maintenance 08/13/2024 Telephone [facility] MED[facility] [address] [place] [address] Flora Santiago FNP Care Coordination: [facility] GI 08/13/2024 Orders Only GENERIC EXTERNAL DATA DEPARTMENT Provider, Generic External Data 08/11/2024 11:30 AM EST Telemedicine [facility] MED [facility] P[facility] [address] [place] [address] Flora Santiago FNP Liver lesion (Primary Dx); Primary hypertension; Cirrhosis of liver with ascites, unspecified hepatic cirrhosis type (CMS/HCC) (CMS/HCC) 08/11/2024 Travel 08/08/2024 Refill [facility] MED[facility]INE [address] [place] [phone] Flora Santiago FNP 08/07/2024 Telephone [facility]INE [address] [place] [phone] Owen Hughes [place] Chart Prep 07/21/2024 Telephone [facility] [address] [place] [address] Flora Santiago FNP ED Visit 07/21/2024 Telephone [facility] [address] [place] [address] Flora Santiago FNP ER Follow-up 07/17/2024 Orders Only GENERIC EXTERNAL DATA DEPARTMENT Provider, Generic External Data 07/02/2024 Refill [facility] [address] [place] [address] Flora Santiago FNP 06/16/2024 Telephone [facility] [address] [place] [address] Flora Santiago FNP 06/13/2024 8:45 AM EST Office Visit [facility] [address] [place] [address] Flora Santiago FNP Type 2 diabetes mellitus with hyperglycemia, with long-term current use of insulin (CMS/HCC) (Primary Dx); Chronic left shoulder pain; Bilateral carpal tunnel syndrome; Cirrhosis of liver with ascites, unspecified hepatic cirrhosis type (CMS/HCC) (CMS/HCC); Primary hypertension 06/13/2024 Telephone [facility] [address] [place] [address] Flora Santiago FNP Lab Orders 06/13/2024 Patient Outreach [facility] [address] [place] [address] Flora Santiago FNP Care Coordination ([facility] outreach for [facility] utilities & housing search-referral completed ) 06/13/2024 Travel 06/12/2024 Telephone [facility] [address] [place] [address] Owen Hughes MA Chart Prep 06/11/2024 Orders Only [facility] MED[facility]INE [address] [place] [phone] Divya Amos MD Type 2 diabetes mellitus with hyperglycemia, with long-term current use of insulin (CMS/HCC) (Primary Dx) 06/11/2024 Telephone [facility] [address] [place] [phone] Divya Amos MD 06/11/2024 Refill [facility] [address] [place] [address] Kenya Herrmann MD Type 2 diabetes mellitus with hyperglycemia, with long-term current use of insulin (CMS/HCC) (Primary Dx) 06/08/2024 Refill [facility] MED[facility] [address] [place] [address] Flora Santiago FNP Type 2 diabetes mellitus with hyperglycemia, with long-term current use of insulin (CMS/HCC) (Primary Dx) 06/06/2024 Orders Only GENERIC EXTERNAL DATA DEPARTMENT Provider, Generic External Data 05/26/2024 Orders Only GENERIC EXTERNAL DATA DEPARTMENT Provider, Generic External Data 05/23/2024 Orders Only GENERIC EXTERNAL DATA DEPARTMENT Provider, Generic External Data 05/22/2024 Refill [facility] [address] [place] [phone] Selwyn Gordon MD 05/20/2024 Refill [facility] MEDICINE [address] [place] [address] Flora Santiago FNP Type 2 diabetes mellitus with hyperglycemia, 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 (CMS/HCC) from Last 3 Months Immunizations Name Administration Dates Next Due Hep A, Adult 08/31/2004,02/29/2004 HepB-CpG 08/18/2024(Deferred: Other - Titer proven immunity),06/21/2023 Influenza Injectable Quadriv alant Preservative Free IIV4 MDCK 03/30/2023 Influenza injectable quadriv alent IIV4 with preservative 04/08/2015 Influenza injectable quadriv alent preservative free 08/12/2018,05/03/2017 Influenza, IIV3, injectable 03/30/2014 Pneumococcal Conjugate [...] the past 12 months, has t he [employer] oil or water company threatened to shut [...] Description 09/08/2024 9:30 AM EST Medication Management [facility] MEDICINE [address] [place] [address] Kandi Panda, PharmD [address] [place] [address] Health Maintenance Due Date Last Done Comments [...] Routine 08/13/2024 11:49 AM EST Liver lesion ALPHA FETOPROTEIN, TUMOR MARKER Routine 08/13/2024 11:49 AM EST Liver lesion [...] hyperglycemia, with long-term current use of insulin ([facility]/HCC) POCT GLUCOSE Routine 06/13/2024 9:20 AM EST Type 2 diabetes mellitus with hyperglycemia, with long-term current use of insulin (CMS/[facility]) BASIC METABOLIC PANEL Routine 06/06/2024 8:23 AM [...] Blood Count 11.4(H) 4.8 - 10.8 X10*3/uL [facility] Red Blood Count 5.21 4.60 - 5.80 X10*6/uL [facility] Hemoglobin 14.0 14.0 - 18.0 g/dl [facility] Hematocrit 42.3 42.0 - 52.0 % [facility] Mean Corpuscular Volume 81.2 80.0 - 98.0 fL [facility] Mean Corpuscular Hemoglobin 26.9(L) 27.0 - 33.0 pg [facility] Mean Corpuscular HGB Conc 33.1 31.0 - 36.0 g/dl [facility] Red Cell Distribution Width 13.9 11.0 - 16.0 % [facility] Platelet Count 212 160 - 400 X10*3/uL [facility] Mean Platelet Volume 10.2 9.4 - 12.4 fL [facility] Neutrophils Percent Auto 78.4(H) 45 - 73 % [facility] Imm Gran Pct Auto 0.4 0.0 - 0.4 % [facility] Lymphocytes Percent Auto 11.1(L) 20 - 40 % [facility] Monocytes Percent Auto 9.2 2 - 11 % [facility] Eosinophils Percent Auto 0.5 0 - 4 % [facility] Basophils Percent Auto 0.4 0 - 2 % [facility] NRBC Pct Auto 0.0 0.0 - 0.2 /100WBC [facility] Neutrophils Absolute Auto 8.9(H) 2.0 - 8.3 x10*3/uL [facility] Imm Gran Abs Auto 0.04(H) 0.00 - 0.03 X10*3/uL [facility] Lymphocytes Absolute Auto 1.3 1.2 - 4.9 X10*3/uL [facility] Monocytes Absolute Auto 1.0 0.1 - 1.2 X10*3/uL [facility] Eosinophils Absolute Auto 0.1 0.0 - 0.4 X10*3/uL [facility] Basophils Absolute Auto 0.0 0.0 - 0.2 X10*3/uL [facility] NRBC Abs Auto 0.000 0.0 - 0.012 X10*3/uL [facility] Blood Venous blood specimen / Unknown 08/13/2024 11:49 AM EST 08/13/2024 11:49 AM EST us Flora Santiago DENTAL HYGIENE PROFESSOR LAB BLOOD ORDERABLES Final Res ult [facility] [address] [place] [address] [phone] * Alpha-Fetoprotein, Tumor Marker (08/13/2024 11:49 AM EST) Alpha Fetoprotein 2.7 <6.1 ng/mL [facility] Comment:This test was perfor med using the Aida Coulterchemiluminescent method. Values obtained fromdifferent assay methods cannot be usedinterchangeably. AFP levels, regardless ofvalue, should not be interpreted as absoluteevidence of the presence or absence of disease.THIS TEST WAS PERFORMED AT:[facility] [address] [phone] GARCIA MD Blood Venous blood specimen / Unknown 08/13/2024 11:49 AM EST 08/13/2024 11:49 AM EST Flora Santiago DENTAL HYGIENE PROFESSOR LAB BLOOD ORDERABLES Final Res ult Performing Organization Address [facility] Co de Phone Number [facility] [address] [place] [phone] * (ABNORMAL) Immunofixation, Serum (08/13/2024 11:49 AM EST) [facility] IMMUNOGLOBULIN G 1318 600 - 1640 mg/dL [facility] IMMUNOGLOBULIN A 1062(A) 47 - 310 mg/dL [facility] Comment:Verified by repeat a nalysis. Immunoglobulin M 195 50 - 300 mg/dL [facility] Comment:THIS TEST WAS PERFOR MED AT:[facility] [address] [phone] GARCIA MD Immunofixation Result SEE NOTE [facility] Comment:No monoclonal protei ns detected. 08/13/2024 11:4 9 AM EST 08/13/2024 11:49 AM EST Generic External Data Provider LAB BLOOD ORDERAB LES Final Result Performing Organization Address [facility] Co de Phone Number [facility] [address] [place] [phone] * (ABNORMAL) Hepatic Function Panel (08/13/2024 11:49 AM EST) Only the most recent of2 resultswithin the time period is included. Pathologist [facility] Bilirubin, Total 1.2(H) 0.0 - 1.0 mg/dL [facility] Bilirubin, Direct 0.5 0.0 - 0.5 mg/dL [facility] Aspartate Amino Transferase 32 5 - 37 U/L [facility] Alanine Aminotransferase 19 0 - 40 U/L [facility] Total Protein 9.1(H) 6.5 - 8.0 g/dL [facility] Albumin Level 4.4 3.5 - 5.0 g/dL [facility] Alkaline Phosphatase 167(H) 39 - 117 U/L [facility] Blood Venous blood specimen / Unknown 08/13/2024 11:49 AM EST 08/13/2024 11:49 AM EST us Flora Santiago DENTAL HYGIENE PROFESSOR LAB BLOOD ORDERABLES Final Res ult Performing Organization Address City/State/[facility] Co de Phone Number [facility] [address] [place] [phone] * (ABNORMAL) Basic Metabolic Panel (08/13/2024 11:49 AM EST) Only the most recent of3 resultswithin the time period is included. [facility] Sodium 133(L) 135 - 145 mmol/L [facility] Potassium 4.9 3.3 - 5.1 mmol/L [facility] Chloride 98 96 - 108 mmol/L [facility] Carbon Dioxide 23 22 - 29 mmol/L [facility] Anion Gap 17 12 - 20 [facility] Urea Nitrogen (BUN) 17(H) 9 - 16 mg/dL [facility] Creatinine, Serum 1.10 0.5 - 1.4 mg/dL [facility] Estimated Glomerular Filt Rate >60 [facility] Comment:Chronic Kidney Disea se: Estimated GFR < 60 mL/min/1.41u5Otogpm Kidney Disease: Estimated GFR < 15 mL/min/1.73m2 Glucose 296(H) 60 - 115 mg/dL [facility] Calcium 9.8 8.4 - 10.2 mg/dL [facility] 08/13/2024 11:4 9 AM EST 08/13/2024 11:49 AM EST Generic External Data Provider LAB BLOOD ORDERAB LES Final Result Performing Organization Address [facility] de Phone Number [facility] [address] [place] [address] [phone] * (ABNORMAL) Urinalysis Complete (08/13/2024 11:43 AM EST) Only the most recent of3 resultswithin the time period is included. Color Urine Yellow [facility] Appearance Urine Clear [facility] PH 5.5 5.0 - 9.0 [facility] Glucose Urine UA >=1000(A) Negative mg/dL [facility] Urine Blood Moderate (2+)(A) Negative [facility] Specific [place] - Urine 1.025 1.005 - 1.025 [facility] Urine Protein Trace Neg-Trace mg/dL [facility] Urine Ketones Negative Negative mg/dL [facility] Nitrite Urine Negative Negative [facility] Leukocyte Esterase Urine Negative Negative [facility] RBC Urine 6-10(A) 0 - 2 /HPF [facility] Urine WBC 0-5 0 - 5 /HPF [facility] Urine Squamous Epithelial Cell 0-2 0 - 2 /HPF [facility] Urine Bacteria None Seen None Seen [facility] Hyaline Casts, Urine 0-2 0 - 2 /LPF [facility] 08/13/2024 11:4 3 AM EST 08/13/2024 12:35 PM EST us Generic External Data Provider LAB URINE ORDERAB LES Final Result Performing Organization Address [facility] Co de Phone Number [facility] [address] [place] [address] [phone] * CTA Chest PE Protocal (07/17/2024 6:38 PM EST) Anatomical Region Laterality Modality Body, Chest Computed Tomogra phy 07/17/2024 6:38 PM EST Narrative 07/17/2024 6:41 PM EST ? [facility] ?[address] ?[place], [place] [address] ? CT Scan Report ? Signed with Addenda ? Patient: Jaden,Steven ?MR#: [id number] ?? 2 ? : 1965 ?Acct:[id number] ? Age/Sex: 59 / M ?ADM Date: 07/17/24 ? Loc: HO.ED ? Attending Dr: ? Ordering Physician: Oswaldo Vilalreal ?? Date of Service: 07/17/24 ?? Procedure(s): CT angio chest PE protocol ?? Accession Number(s): [id number] ? cc: Oswaldo Villareal; Flora Santiago DENTAL HYGIENE PROFESSOR ? Report Number: ?? [id number]: Total DLP = ??293.00 mGy-cm ?ADDENDUM ?? [...] Chawla MD in OV> ?07/17/24 1840 ? DD/DT: 011837 ? TD/TT: 07/17/241837 ? Elementary Educator: ? Procedure Note Donangelater, Image - 07/17/[address] [address] [place] Scan Report Signed with Wendy Patient: Robin Stanley#: [id number] 2 : 1965Acct:[id number] Age/Sex: 59 / MADM Date: 07/17/24 Loc: HO.ED Attending Dr: Ordering Physician: Oswaldo Villareal Date of Service: 07/17/24 Procedure(s): CT angio chest PE protocol Accession Number(s): [id number] cc: Oswaldo Villareal; Flora Santiago [facility] Report Number: [id number]: Total DLP = 293.00 mGy-cm ADDENDUM This [...] in OV> 07/17/240 DD/ 37 TD/TT: 07/17/241837 Elementary Educator: [facility] External Provider IMG CT PROCEDURES Edited Result - Final * D Dimer High Sensitivity (07/17/2024 5:20 PM EST) Pathologist [facility] D Dimer High Sensitivity 284 NG/ML [facility] Comment:D-DIMER HS REFERENCE RANGENote: Our [...] Provider LAB BLOOD ORDERAB LES Final Result [facility] [address] [place] [phone] * (ABNORMAL) High Sensitivity Troponin I (07/17/2024 1:19 PM EST) Only the most recent of2 resultswithin the time period is included. [facility] TROPONIN I HIGH SENSITIVITY 44.5(H) <3.5 - 35.0 ng/L [facility] Comment:The [place] high sens itivity Troponin-I results should beused in conjunction with other diagnostic information suchas ECG, clinical observations and information, and patientsymptoms to aid in the diagnosis of SC. 07/17/2024 1:19 PM EST 07/17/2024 1:22 PM EST us Generic External Data Provider LAB BLOOD ORDERAB LES Final Result [facility] [address] [place] [address] [phone] * XR Chest 2 Views (07/17/2024 10:20 AM EST) Anatomical Region Laterality Modality Chest Radiographic Kandace ging 07/17/2024 10:2 0 AM EST Narrative 07/17/2024 11:46 AM EST ? [facility] ?[address] ?[place] [address] ?XRay Report ? Signed ? Patient: Steven Stanley ?MR#: [id number] ?? 2 ? : 1965 ?Acct:[id number] ? Age/Sex: 59 / M ?ADM Date: 07/17/24 ? Loc: HO.ED ? Attending Dr: ? Ordering Physician: Starr Peralta DO ?? Date of Service: 07/17/24 ?? Procedure(s): XR chest 2V ?? Accession Number(s): [id number] ? cc: Starr Peralta DO; Flora Santiago DENTAL HYGIENE PROFESSOR ? EXAMINATION: ?? XR CHEST ? CLINICAL [...] DD/ 1020 ? TD/TT: 07/17/24 1040 ? Elementary Educator: MIGUE ? Procedure Note Donema, Sarah - 07/17/[address] [address] XRay Report Signed Patient: Robin Stanley#: [id number] 2 : 1965Acct:[id number] Age/Sex: 59 / MADM Date: 07/17/24 Loc: .ED Attending Dr: Ordering Physician: Starr Peralta DO Date of Service: 07/17/24 Procedure(s): XR chest 2V Accession Number(s): [id number] cc: Starr Peralta DO; Flora Santiago DENTAL HYGIENE PROFESSOR EXAMINATION: XR CHEST CLINICAL INFORMATION: pain COMPARISON: [...] 07/17/24 1143 DD/ 1020 TD/TT: 07/17/24 1040 Elementary Educator: MIGUE us [facility] External Provider IMG XR PROCEDURES Final Result * SARS-CoV-2 RNA, Influenza A/B, and RSV RNA, Ql NAAT (07/17/2024 10:12 AM EST) Influenza A PCR NEGATIVE Negative [facility] Influenza B PCR NEGATIVE Negative [facility] Resp Syncy Virus RNA Qual PCR NEGATIVE Negative [facility] SARS COV2 PCR NEGATIVE Negative [facility] Comment:All test results mus [...] use by authorized laboratories.Testing performed on the [employer] GeneXpert utilizingreal-time RT-PCR.All SARS CoV2 and positive influenza A/B results arereported to [facility]. 07/17/2024 10:1 2 AM EST 07/17/2024 10:16 AM EST us Generic External Data Provider LAB MICROBIOLOGY - GENERAL ORDERABLES Final Result Performing Organization Address City/[facility]/ZIP Co de Phone Number [facility] [address] [place] [phone] * B Type Natriuretic Peptide (BNP) (07/17/2024 10:12 AM EST) Pathologist [facility] B Type Natriuretic Peptide 89 <100 pg/mL [facility] Comment:For those patients w ho are being treated with Natrecor(nesiritide, recombinant BNP), BNP testing should beperformed at least two hours post treatment in order toensure that only endogenous levels of BNP are detected. 07/17/2024 10:1 2 AM EST 07/17/2024 10:16 AM EST us Generic External Data Provider LAB BLOOD ORDERAB LES Final Result Performing Organization Address [facility]/ZIP Co de Phone Number [facility] [address] [place] [phone] * (ABNORMAL) Magnesium (07/17/2024 10:12 AM EST) Pathologist [facility] Magnesium 1.5(L) 1.6 - 2.6 mg/dL [facility] 07/17/2024 10:1 2 AM EST 07/17/2024 10:16 AM EST Generic External Data Provider LAB BLOOD ORDERAB LES Final Result Performing Organization Address City/[facility] Co de Phone Number [facility] [address] [place] [phone] * Lipase (07/17/2024 10:12 AM EST) [facility] Lipase 52 8 - 78 U/L [facility] 07/17/2024 10:1 2 AM EST 07/17/2024 10:16 AM EST Generic External Data Provider LAB BLOOD ORDERAB LES Final Result Performing Organization Address [facility] de Phone Number [facility] [address] [place] [phone] * ECG 12 lead (06/13/2024 1:21 PM EST) Narrative Flora Santiago FNP - 06/13/2024 1:21 PM EST Pr: 98/150 ms QRS: 92ms QT/Qtc: 382/480 ms HR: 95 bpm NSR. Non-specific T-wave inversion in lead V6. us Flora LAFLEUR ECG ORDERABLES Final Result * (ABNORMAL) POCT HGB A1C (06/13/2024 9:20 AM EST) [facility] Hemoglobin A1C 7.6(A) 4.0 - 6.0 % QC Media Lot # [id number] Lot# Expiration Date [id number] Blood 06/13/2024 9:20 AM EST us Flora Santiago DENTAL HYGIENE PROFESSOR POINT OF CARE TEST ENTER/EDIT ORDERABLES Final Result * (ABNORMAL) POCT Glucose (06/13/2024 9:20 AM EST) Glucose Blood, POC 328 60 - 200 mg/dL Comment:Random QC Media Lot # [id number] Lot# Expiration Date [id number] Blood Capillary blood specimen / Unknown 06/13/2024 9:20 AM EST Flora Santiago DENTAL HYGIENE PROFESSOR POINT OF CARE TEST ENTER/EDIT ORDERABLES Final Result * Gross and Microscopic Level 2 (05/23/2024 9:27 AM EST) 05/23/2024 9:27 AM EST 05/23/2024 10:21 AM EST Narrative [facility] - 05/27/2024 7:26 AM EST ----- ------- Name: Steven Stanley ?Age/Sex: 59/M ? : 1965 Unit#: [id number] ?? Attend Dr: Michael Glass MD ?Re05/23/24 ?Status: DEP SDC ? Location: HO.SSS ?Disch: ? ----- ------- SPEC : [id number] ? RECD: 05/23/24 ? STATUS: ??SOUT ? REQ NUM: [id number] ? OLRENE: 05/23/24 ? SUBM DR: Michael Glass MD ? ENTERED: ??05/23/24 ?SP TYPE: Surgical ? OTHR DR: Flora [...] reveals focally rubbery thickened ibarra-white fibrous tissue. ??Flying Shear Operator sections are submitted in a cassette labeled A1. CEDS Copies To: ?? Flora Santiago ?? [address] [facility] ?? [place] [address] ?? [phone] ?? Michael Glass MD ?? [facility] ?? [address] ?? [place] [address] ?? [phone] ?? [email or web address] ----- ------- Signed (signature on file) Joel Zavaleta MD 05/27/24 0726 ? ----- ------- ? END OF REPORT ? us Generic External Data Provider LAB CYTOLOGY JESSICA ORELLANA Final Result [facility] [address] [place] [address] [phone] * (ABNORMAL) Glucose, Whole Blood (05/23/2024 7:52 AM EST) Glucose, Whole Blood 162(H) 60 - 115 mg/dL [facility] Comment:METER #: [id number] 05/23/2024 7:52 AM EST 05/23/2024 7:55 AM EST us Generic External Data Provider LAB BLOOD ORDERAB LES Final Result Performing Organization Address [facility] Co de Phone Number [facility] [address] [place] [phone] * Hepatitis Panel, General (04/29/2024 12:37 PM EDT) Hepatitis A IgM Nonreactive Nonreactive [facility] Comment:IgM antibodies to RITCHIE V not detected; does not exclude earlyacute or recovered HAV infection. ~Hepatitis B Surface Antibody REACTIVE Nonreactive [facility] Comment:REACTIVE: > 11.99 mI U/mL Hepatitis B Core Antibody Nonreactive Nonreactive [facility] Hepatitis C Antibody GRAYZONE Nonreactive [facility] Comment:Antibodies to HCV ma y or may not be present. Suggest repeatanti-HCV in 4-6 weeks and/or HCV viral load if clinicallyindicated. Hepatitis B Surface Ag Negative Negative [facility] 04/29/2024 12:3 7 PM EDT 04/29/2024 12:39 PM EDT Generic External Data Provider LAB BLOOD ORDERAB LES Final Result Performing Organization Address [facility] Co de Phone Number [facility] [address] [place] [phone] * Lipid Panel, Standard (03/28/2024 8:52 AM EDT) Triglycerides 90 <150 mg/dL [facility] Comment:Desirable Triglyceri de: less than 150 mg/dLBorderline High Triglyceride 150-199 mg/dLHigh Triglyceride: 200-499 mg/dLVery High Triglyceride: greater than or equal to 5OO mg/dL Cholesterol 187 <200 mg/dL [facility] Comment:Desirable Cholestero l: less than 200 mg/dLBorderline High Cholesterol: 200-239 mg/dLHigh Cholesterol: greater than 239 mg/dL LDL Cholesterol Calculated 64 <100 mg/dL [facility] Comment:Desirable LDL: less than 100 mg/dLNear Optimal/Above Optimal LDL: 110- 129 mg/dLBorderline High LDL: 130-159 mg/dLHigh LDL: 160-189 mg/dLVery High LDL: greater than or equal to 190 mg/dL HDL Cholesterol 105 >40 mg/dL [facility] Comment:Desirable HDL: great er than 40 mg/dL Note: This HDL assay may give artificially low results in patients with liver disease. 03/28/2024 8:52 AM EDT 03/28/2024 8:52 AM EDT Generic External Data Provider LAB BLOOD ORDERAB LES Final Result Performing Organization Address [facility]/ZIP Co de Phone Number [facility] [address] [place] [phone] * Creatinine, Random Urine (10/31/2023 12:00 PM EDT) Creatinine, Urine 70.00 mg/dL [facility] 10/31/2023 12:0 0 PM EDT 10/31/2023 12:52 PM EDT Generic External Data Provider LAB URINE ORDERAB LES Final Result Performing Organization Address [facility] Co de Phone Number [facility] [address] [place] [phone] * HIV 1/2 ANTIGEN/ANTIBODY,FOURTH GENERATION W/RFL (07/18/2021 9:07 AM EST) HIV-1/2 ANTIGEN AND ANTIBODIES, 4TH GENERATION W/ REFLEX NON-REACT NASEEM NON-REACT NASEEM [facility] Comment: HIV-1 antigen and HIV-1/HIV-2 [...] ? For additional information please refer to http://education.[employer].Hotelzilla/faq/QMA007 (This link is being provided for informational/ educational purposes only.) ? The performance of this assay has not been clinically validated in patients less than 2 years old. ?? 07/18/2021 9:07 AM EST Flora Santiago DENTAL HYGIENE PROFESSOR LAB BLOOD ORDERABLES Final Res ult [facility] [address] * Colonoscopy (03/17/2021) Pathologist [facility] Colonoscopy Normal Normal Narrative Debi Zamora - 03/17/2021 Repeat in 5 years tubular adenoma Historical Provider MD HEALTH MAINTENANCE Final Result from Last 3 Months or Most Recently Relevant to Health Maintenance [facility] STAND ADULT GENERIC OTHER Care Teams Box Lining Machine Feeder Relationship Specialty Start Date End Date Flora Santiago FNP [address] [place] [address] PCP - General Family Medicine 05/02/21 Sherin Hall, RN [address] [place] [address] Candle Molder Family Medicine 07/30/23 Juan Jose Deshpande MD [address] [place] [address] Nephrology 06/13/24 Michael Glass MD [address] [place] [address] [address] [place] [address] General Surgery 06/13/24 Demetrius Austin MD [address] [place] [address] DRIVE [address] [place] [address] Orthopaedic Surgery 06/13/24 Harry Garcia MD [address] [place] [address] Gastroenterology 06/13/24 Jovany Feliciano MD [address] [place] [address] Cardiology 06/13/24 Kandi Panda PharmD [address] [place] [address] Pharmacist Internal Medicine 08/18/24
--- OUTSIDE RECORDS SUMMARY | 2024-08-20 14:18 | XMS_ITS | Encounter Summary ---
Author Organization [employer] Address [address] [facility] 7t [place] [address] Care Team Providers Care Window Draper Name Role Phone Flora Santiago Primary Care Provider [phone] Sherin Hall RN Unavailable [phone] Juan Jose Deshpande MD Unavailable [phone] Michael Glass MD Unavailable [phone] Demetrius Austin MD Unavailable Harry Garcia MD Unavailable [phone] Jovany Feliciano MD Unavailable Reason for Visit * Reason Onset Date Comments Care Coordination: [facility] 08/13/2024 Encounter Details Date Type Department Care Team (Late st Contact Info) Description 08/13/2024 Telephone [facility] MEDICINE [address] [place] [address] Flora Santiago FNP [address] [place] [address] Care Coordination: [facility] Social History Tobacco Use Types Packs/Day Years [...] encounter Miscellaneous Notes * Telephone Encounter - Flora Santiago, SCHOOL COMMUNITY RELATIONS COORDINATOR - 08/13/2024 3:01 PM EST Provider called to [facility] and scheduled urgent appt for liver lesion w/ hx cirrhosis. Scheduled for 08/13/24 at 1:15pm with Dr. Hawk. PCP called pt and informed of appointment. Referrals teamfaxed at 10:51am on 08/12/24 the referral info plus notes and CT scan to the [facility] fax number: . PCP called to make sure it had arrived on 08/12/24. They said would return call by end of day if not.No call. On 08/13/24 [facility] called and said they would check in pile of notes and let us know if received. 3pm: PCP called back to [facility]. Pt arrived for appt. Requesting notes be sent to other fax number: . Dr. Hawk. Spoke with referrals team who will fax over now. Plan: [facility] planning to give call back by end of time to confirm receipt of information. Please let me know if received. If not, please see referral info and fax to desired number. Thank you. documented in this encounter Plan of Treatment Upcoming Encounters Date Type Department Care Team (Late st Contact Info) Description 09/08/2024 9:30 AM EST Medication Management [facility] MEDICINE [address] [place] [address] Kandi Panda PharmD [address] [place] [address] documented as of this encounter Goals Goal [...] documented as of this encounter Care Teams Window Draper Relationship Specialty Start Date End Date Flora Santiago FNP [address] [place] [address] PCP - General Family Medicine 05/02/21 Sherin Hall, RN [address] [place] [address] Time Motion Analyst Family Medicine 07/30/23 Juan Jose Deshpande MD [address] [place] [address] Drive [address] [place] [address] Nephrology 06/13/24 Michael Glass MD [address] [place] [address] Dr 3rd [place] [address] General Surgery 06/13/24 Demetrius Austin MD [address] [address] [place] [address] Orthopaedic Surgery 06/13/24 Harry Garcia MD [address] [place] [address] Gastroenterology 06/13/24 Jovany Feliciano MD [address] [place] [address] Cardiology 06/13/24 documented as of this encounter
--- OUTSIDE RECORDS SUMMARY | 2024-08-20 14:18 | XMS_ITS | Encounter Summary ---
Author Organization [employer] Address [address] [facility] 7t [place] [address] Care Team Providers Care Upholsterer Helper Name Role Phone VaneFlora mina EDGE SANDER Primary Care Provider [phone] Sherin Hall RN Unavailable [phone] Juan Jose Deshpande MD Unavailable [phone] Michael Glass MD Unavailable [phone] Demetrius Austin MD Unavailable Harry Garcia MD Unavailable [phone] Jovany Feliciano MD Unavailable Kandi Panda PharmD Unavailable Encounter Details Date Type Department Care Team (Late st Contact Info) Description 07/14/2022 Orders Only [facility] CHC MED & PEDS [address] [place], [place] [phone] Shahnaz Perez LPN Social History Tobacco Use [...] Description 09/08/2024 9:30 AM EST Medication Management [facility] MEDICINE [address] [place] [address] Kandi Panda PharmD [address] [place] [address] documented as of this encounter Visit Diagnoses Not on filedocumented in this encounter Care Teams Upholsterer Helper Relationship Specialty Start Date End Date Flora Santiago FNP [address] [place] [address] PCP - General Family Medicine 05/02/21 Sherin Hall, RN [address] [place] [address] Alum Plant Supervisor Family Medicine 07/30/23 Juan Jose Deshpande MD [address] [place] [address] Nephrology 06/13/24 Michael Glass MD [address] [place] [address] Dr [address] [place] [address] General Surgery 06/13/24 Demetrius Austin MD [address] [place] [address] Orthopaedic Surgery 06/13/24 Harry Garcia MD [address] [place] [address] Gastroenterology 06/13/24 Jovany Feliciano MD [address] [place] [address] Cardiology 06/13/24 Kandi Panda PharmD [address] [place] [address] Pharmacist Internal Medicine 08/18/24 documented as of this encounter
--- OUTSIDE RECORDS SUMMARY | 2024-08-20 14:18 | XMS_ITS | Encounter Summary ---
Author Organization [employer] Address [address] [facility] 7t [place] [address] Care Team Providers Care Cytogenetic Technician Name Role Phone Flora Santiago Primary Care Provider [phone] Sherin Hall RN Unavailable [phone] Juan Jose Deshpande MD Unavailable [phone] Michael Glass MD Unavailable [phone] Demetrius Austin MD Unavailable Harry Garcia MD Unavailable [phone] Jovany Feliciano MD Unavailable Reason for Visit * Reason Onset Date Comments ED Visit 07/21/2024 Encounter Details Date Type Department Care Team ([facility] st Contact Info) Description 07/21/2024 Telephone [facility] CHC MED & PEDS [address] [place], [place] [phone] Flora Santiago FNP [address] [place], [place] [phone] ED Visit Social History Tobacco Use Types [...] 11:22 AM EST TC with patient via educational sign language interpreter #[id number]. Pt states he is waiting for [facility] department to call him back with [...] 9:30 AM EST Medication Management [facility] MEDICINE [address] [place] [address] Kandi Panda PharmD [address] [place] [address] documented as of this encounter Goals Goal [...] documented as of this encounter Care Teams Cytogenetic Technician Relationship Specialty Start Date End Date Flora Santiago FNP [address] [place] [address] PCP - General Family Medicine 05/02/21 Sherin Hall, RN [address] [place] [address] Fabrication Specialist Family Medicine 07/30/23 Juan Jose Deshpande MD [address] [place] [address] Drive [address] [place] [address] Nephrology 06/13/24 Michael Glass MD [address] [place] [address] Dr 3rd [place] [address] General Surgery 06/13/24 Demetrius Austin MD [address] [place] [address] Orthopaedic Surgery 06/13/24 Harry Garcia MD [address] 3rd [place] [address] Gastroenterology 06/13/24 Jovany Feliciano MD [address] 3rd [place] [address] Cardiology 06/13/24 documented as of this encounter
--- OUTSIDE RECORDS SUMMARY | 2024-08-20 14:18 | XMS_ITS | Encounter Summary ---
Author Organization [employer] Address [address] [facility] 7t [place] [address] Care Team Providers Care Salesforce Consultant Name Role Phone Flora Santiago Primary Care Provider [phone] Sherin Hall RN Unavailable [phone] Juan Jose Deshpande MD Unavailable [phone] Michael Glass MD Unavailable [phone] Demetrius Austin MD Unavailable Harry Garcia MD Unavailable [phone] Jovany Feliciano MD Unavailable Reason for Visit * Reason Onset Date Comments ER Follow-up 07/21/2024 Encounter Details Date Type Department Care Team ([facility] st Contact Info) Description 07/21/2024 Telephone [facility] CHC MED & PEDS [address] [place], [place] [phone] Flora Santiago FNP [address] [place], [place] [phone] ER Follow-up Social History Tobacco Use Types [...] Center 08/07/2024 3:00 PM Angelica VAZQUEZ DENT [facility] 08/11/2024 11:30 AM CIARRA Josue CHC MED [facility] 08/18/2024 9:30 AM Kandi Panda PharmD MEDICINE [facility] Patient verbalized understanding and denied having any further questions or concerns at this time. Patient to follow up as needed. * Telephone Encounter - Cece Vargas - 07/21/2024 9:51 AM EST Patient calling to report ED visit on : Date: 07/17/24 Hospital: [facility] Seen for: chest pain Symptomatic No *if yes message should go to Triage Patient advised will forward to team nurse for follow up documented in this encounter Plan of Treatment Upcoming Encounters Date Type Department Care Team (Late st Contact Info) Description 09/08/2024 9:30 AM EST Medication Management [facility] MEDICINE [address] [place] [address] Kandi Panda PharmD [address] [place] [address] documented as of this encounter Goals Goal [...] documented as of this encounter Care Teams Salesforce Consultant Relationship Specialty Start Date End Date Flora Santiago FNP [address] [place] [address] PCP - General Family Medicine 05/02/21 Sherin Hall, RN [address] [place] [address] Softwood Faller Family Medicine 07/30/23 Juan Jose Deshpande MD [address] [place] [address] Drive [address] [place] [address] Nephrology 06/13/24 Michael Glass MD [address] [place] [address] Dr 3rd [place] [address] General Surgery 06/13/24 Demetrius Austin MD [address] [place] [address] Orthopaedic Surgery 06/13/24 Harry Garcia MD [address] 3rd [place] [address] Gastroenterology 06/13/24 Jovany Feliciano MD [address] 3rd [place] [address] Cardiology 06/13/24 documented as of this encounter
--- OUTSIDE RECORDS SUMMARY | 2024-08-20 14:18 | XMS_ITS | Encounter Summary ---
Author Organization [employer] Address [address] [facility] 7t [place] [address] Care Team Providers Care Lens Cleaner Name Role Phone Flora Santiago CIARRA Primary Care Provider [phone] Sherin Hall RN Unavailable [phone] Juan Jose Deshpande MD Unavailable [phone] Michael Glass MD Unavailable [phone] Demetrius Austin MD Unavailable Harry Garcia MD Unavailable [phone] Jovany Feliciano MD Unavailable [phone] Reason for Visit * Reason Onset Date Comments Chart Prep 08/07/2024 Encounter Details Date Type Department Care Team (Late st Contact Info) Description 08/07/2024 Telephone [facility] MEDICINE [address] [place] [address] Owen Hughes [place] Chart Prep Social History [...] Description 09/08/2024 9:30 AM EST Medication Management [facility] [address] [place] [address] Kandi Panda, PharmD [address] [place] [address] documented as of this encounter Goals Goal [...] documented as of this encounter Care Teams Lens Cleaner Relationship Specialty Start Date End Date Flora Santiago FNP [address] [place] [address] PCP - General Family Medicine 05/02/21 Sherin Hall, RN [address] [place] [address] Textile Screen Printer Family Medicine 07/30/23 Juan Jose Deshpande MD [address] [place] [address] Nephrology 06/13/24 Michael Glass MD [address] [place] [address] Dr [address] [place] [address] General Surgery 06/13/24 Demetrius Austin MD [address] [place] [address] Orthopaedic Surgery 06/13/24 Harry Garcia MD [address] [place] [address] Gastroenterology 06/13/24 Jovany Feliciano MD [address] [place] [address] Cardiology 06/13/24 documented as of this encounter
--- OUTSIDE RECORDS SUMMARY | 2024-08-20 14:18 | XMS_ITS | Encounter Summary ---
Author Organization [employer] [facility] Address [address] [place] [address] 7t [place] [address] Care Team Providers Care Director Data Processing Name Role Phone Vanekeeley Flora LAFLEUR Primary Care Provider Sherin Hall RN Unavailable [phone] Juan Jose Deshpande MD Unavailable [phone] Michael Glass MD Unavailable [phone] Demetrius Austin MD Unavailable Harry Garcia MD Unavailable [phone] Jovany Feliciano MD Unavailable Kandi Panda PharmD Unavailable [phone] Encounter Details Date Type Department Care Team (Latest Contact Info) Description 01/24/2019 Abstract [facility] CONVERSIONS Dental, Provider, DDS Social History [...] Description 09/08/2024 9:30 AM EST Medication Management [facility] MEDICINE [address] [place], [place] [phone] Kandi Panda, PharmD 230 [place], [place] [phone] documented as of this encounter Visit Diagnoses Not on filedocumented in this encounter Care Teams Director Data Processing Relationship Specialty Start Date End Date Flora Santiago FNP [address] [place] [address] PCP - General Family Medicine 05/02/21 Sherin Hall, RN 230 [place] [address] Hazardous Material Specialist Family Medicine 07/30/23 Juan Jose Deshpande MD [address] [place] [address] Nephrology 06/13/24 Michael Glass MD [address] [place] [address] General Surgery 06/13/24 Demetrius Austin MD [address] [facility] [address] [place] [address] Orthopaedic Surgery 06/13/24 Harry Garcia MD [address] [place] [address] Gastroenterology 06/13/24 Jovany Feliciano MD [address] [place] [address] Cardiology 06/13/24 Kandi Panda PharmD 230 [place] [address] Pharmacist Internal Medicine 08/18/24 documented as of this encounter
--- OUTSIDE RECORDS SUMMARY | 2024-08-20 14:18 | XMS_ITS | Encounter Summary ---
Author Organization [employer] Address [address] [facility] 7t [place] [address] Care Team Providers Care Scientific Helper Name Role Phone Flora Santiago Primary Care Provider [phone] Sherin Hall RN Unavailable [phone] Juan Jose Deshpande MD Unavailable [phone] Michael Glass MD Unavailable [phone] Demetrius Austin MD Unavailable Harry Garcia MD Unavailable [phone] Jovany Feliciano MD Unavailable [phone] Reason for Referral * Consultation (STAT) - Closed Specialty Diagnoses / Procedures Referred By Jana rabago Referred To Contact Gastroenterology Diagnoses Liver lesion Cirrhosis of liver with ascites, unspecified hepatic cirrhosis type (CMS/HCC) (CMS/HCC) Flora Santiago FNP [address] [place] [address] Phone: tel: fax: [facility] Gastroenterology [address] [facility] 3rd Floor [address] [place], [place] Phone: tel: fax: Referral ID Status Reason Start Date Expiration Date V isits Requested Visits Authorized [id number] Closed Specialty Services Required 08/12/2024 08/12/2025 1 1 Encounter Details Date Type Department Care Team ([facility] st Contact Info) Description 08/11/2024 11:30 AM EST Telemedicine [facility] [address] [place] [address] Flora Santiago, IT RECRUITER [address] [place] [address] Liver lesion (Primary Dx); Primary hypertension; Cirrhosis [...] this encounter Progress Notes * Flora Santiago, CIARRA - 08/11/2024 11:30 AM EST Subjective Patient ID: Steven Stanley is a 59 y.o. male w/ PMH T2DM, decompensated cirrhosis, HTN, GERD, HLD, fibromyalgia, and obesity, who presents to the office for a follow up visit - [facility] ED f/up. HPI: Last PCP visit: 06/13/24 Referral to physical therapy for left shoulder pain [facility] ED visit on 07/17/2024 for intermittent chest pain. ACS ruled out and completed follow-up with [facility] cards on 07/30/2024. Plan for myocardial perfusion study to assess for ischemic changes. Liver lesion: incidental finding during ED visit. CTA chest demonstrated arterial enhancing lesion measuring 1x1.6cm. Concern for hepatocellular carcinoma. Will refer urgently to GI. Ordering Physician: Oswaldo Villareal Date of Service: 07/17/24 Procedure(s): CT angio chest PE protocol Accession Number(s): [id number] ADDENDUM This document has been electronically signed [...] visit. Patient verbalized being located in the [facility] during the televisit. Provider was located in an Ambulatory examroom/outside the office at a secure location during the visits. Specialists: Gastro: Previously following with Dr. Garcia ([facility]) - Cirrhosis w/ ascites Surgery: Dr. Glass ([facility]) - inguinal hernia Nephrology: Dr. Deshpande ([facility]) Urology: WILL Harris - microhematuria Cards: Dr. Feliciano ([facility]) - hypertension Review of Systems Constitutional: Negative [...] Digestive Cirrhosis of liver with ascites (CMS/HCC) (CMS/HCC) Overview Lab Results Component Value Date AST [...] Current Assessment & Plan -Previously following with [facility] GI, although transferring to [facility]. -MELD score 8 -Previously completing paracentesis [...] r/o of hepatocellular carcinoma. - Scheduled w/ [facility] GI for 08/13/24. Relevant Orders CBC auto differential Alpha-Fetoprotein, Tumor Marker Hepatic Function Panel Referral to Gastroenterology Follow up: per recall, sooner as needed documented in this encounter Miscellaneous Notes * Assessment & Plan Note - CIARRA Josue - 08/12/2024 10:02 AM EST Associated Problem(s): Cirrhosis of liver with ascites (CMS/HCC) (CMS/HCC) -Previously following with [facility] GI, although transferring to [facility]. -MELD score 8 -Previously completing paracentesis [...] Description 09/08/2024 9:30 AM EST Medication Management [facility] MEDICINE [address] [place] [address] Kandi Panda PharmD [address] [place], [place] [phone] Scheduled Referrals Name Type Priority Associated Diagnoses [...] 0.0 - 1.0 mg/dL [facility] Bilirubin, Direct 0.5 0.0 - 0.5 mg/dL [facility] Aspartate Amino Transferase 32 5 - 37 U/L [facility] Alanine Aminotransferase 19 0 - 40 U/L [facility] Total Protein 9.1(H) 6.5 - 8.0 g/dL [facility] Albumin Level 4.4 3.5 - 5.0 g/dL [facility] Alkaline Phosphatase 167(H) 39 - 117 U/L [facility] Blood Venous blood specimen / Unknown 08/13/2024 11:49 AM EST 08/13/2024 11:49 AM EST Flora Santiago [facility] BLOOD ORDERABLES Final Res ult Performing Organization Address [facility] de Phone Number [facility] [address] [place] [address] [phone] * Alpha-Fetoprotein, Tumor Marker (08/13/2024 11:49 AM EST) Pathologist [facility] Alpha Fetoprotein 2.7 <6.1 ng/mL [facility] Comment:This test was perfor med using the Aida Coulterchemiluminescent method. Values obtained fromdifferent assay methods cannot be usedinterchangeably. AFP levels, regardless ofvalue, should not be interpreted as absoluteevidence of the presence or absence of disease.THIS TEST WAS PERFORMED AT:[employer] [place] [id number] GARCIA MD Blood Venous blood specimen / Unknown 08/13/2024 11:49 AM EST 08/13/2024 11:49 AM EST Flora Santiago [facility] BLOOD ORDERABLES Final Res ult Performing Organization Address [facility] Co de Phone Number [facility] [address] [place] [phone] * (ABNORMAL) CBC auto differential (08/13/2024 11:49 AM EST) Pathologist [facility] White Blood Count 11.4(H) 4.8 - 10.8 X10*3/uL [facility] Red Blood Count 5.21 4.60 - 5.80 X10*6/uL [facility] Hemoglobin 14.0 14.0 - 18.0 g/dl [facility] Hematocrit 42.3 42.0 - 52.0 % [facility] Mean Corpuscular Volume 81.2 80.0 - 98.0 fL [facility] Mean Corpuscular Hemoglobin 26.9(L) 27.0 - 33.0 pg [facility] Mean Corpuscular HGB Conc 33.1 31.0 - 36.0 g/dl [facility] Red Cell Distribution Width 13.9 11.0 - 16.0 % [facility] Platelet Count 212 160 - 400 X10*3/uL [facility] Mean Platelet Volume 10.2 9.4 - 12.4 fL [facility] Neutrophils Percent Auto 78.4(H) 45 - 73 % [facility] Imm Gran Pct Auto 0.4 0.0 - 0.4 % [facility] Lymphocytes Percent Auto 11.1(L) 20 - 40 % [facility] Monocytes Percent Auto 9.2 2 - 11 % [facility] Eosinophils Percent Auto 0.5 0 - 4 % [facility] Basophils Percent Auto 0.4 0 - 2 % [facility] NRBC Pct Auto 0.0 0.0 - 0.2 /100WBC [facility] Neutrophils Absolute Auto 8.9(H) 2.0 - 8.3 x10*3/uL [facility] Imm Gran Abs Auto 0.04(H) 0.00 - 0.03 X10*3/uL [facility] Lymphocytes Absolute Auto 1.3 1.2 - 4.9 X10*3/uL [facility] Monocytes Absolute Auto 1.0 0.1 - 1.2 X10*3/uL [facility] Eosinophils Absolute Auto 0.1 0.0 - 0.4 X10*3/uL [facility] Basophils Absolute Auto 0.0 0.0 - 0.2 X10*3/uL [facility] NRBC Abs Auto 0.000 0.0 - 0.012 X10*3/uL [facility] Blood Venous blood specimen / Unknown 08/13/2024 11:49 AM EST 08/13/2024 11:49 AM EST us Flora Santiago IT RECRUITER LAB BLOOD ORDERABLES Final Res ult [facility] [address] [place] [address] [phone] documented in this encounter Visit Diagnoses Diagnosis Liver lesion- Primary Other specified disorders of liver Primary hypertension Unspecified essential hypertension Cirrhosis of liver with ascites, unspecified hepatic cirrhosis type (CMS/HCC) (CMS/HCC) documented in this encounter Additional Health Concerns Assessment Noted Time PHQ-9 Depression Total Score: 0 11/30/19 11:07 AM EDT documented as of this encounter Care Teams Scientific Helper Relationship Specialty Start Date End Date Flora Santiago FNP [address] [place] [address] PCP - General Family Medicine 05/02/21 Sherin Hall, RN [address] [place] [address] Supervisor Drapery Hanging Family Medicine 07/30/23 Juan Jose Deshpande MD [address] [place] [address] Nephrology 06/13/24 Michael Glass MD [address] [place] [address] Dr [address] [place] [address] General Surgery 06/13/24 Demetrius Austin MD [address] [place] [address] Orthopaedic Surgery 06/13/24 Harry Garcia MD [address] [place] [address] Gastroenterology 06/13/24 Jovany Feliciano MD [address] [place] [address] Cardiology 06/13/24 documented as of this encounter
== END ==
LOC: HO.CARD 12:57
PROVIDERS: PCP Registered Nurse
DX: R01.1 Cardiac murmur, unspecified (principal); R06.00 Dyspnea, unspecified
CPT/HCPCS: 93306

== ENCOUNTER → 2024-08-20 13:00 | Outpatient (BNV) | payer MEDICAID, SELFPAY | PROVIDERS: PCP Registered Nurse; Visit Provider Internal Medicine Cardiovascular Disease | DX: I35.0 Nonrheumatic aortic (valve) stenosis (principal) | CPT/HCPCS: 93306 ==

== ENCOUNTER 2024-09-05 09:25 | Outpatient (REF) | payer MEDICAID, SELFPAY ==
--- NOTE | ~2024-09-05 | XR_ITS ---
EXAMINATION: XR CHEST CLINICAL INFORMATION: rib pain /Fracture; fall with right anterior rib pain. COMPARISON: 07/17/2024. TECHNIQUE: 2 views of the chest were obtained. FINDINGS: The cardiac, hilar, and mediastinal contours are normal. The lungs are clear bilaterally. There is no pneumothorax or pleural effusion. There is no focal soft tissue abnormality. No acute displaced rib fracture. Old healed seventh rib fracture on the left XR/XR chest 2V IMPRESSION: No active pulmonary disease. No definite displaced acute rib fracture seen. Electronically signed by: Billy Mcneill MD 09/05/2024 09:41 AM [facility]
--- OUTSIDE RECORDS SUMMARY | 2024-09-05 10:06 | XMS_ITS | Encounter Summary ---
Author Organization [employer] Address [address] [place] [address] 7t [place] [address] Care Team Providers Care Lithographing Machine Operator Name Role Phone Flora Santiago Primary Care Provider Sherin Hall RN Unavailable [phone] Juan Jose Deshpande MD Unavailable Michael Glass MD Unavailable [phone] Demetrius Austin MD Unavailable Harry Garcia MD Unavailable [phone] Jovany Feliciano MD Unavailable Kandi Panda PharmD Unavailable [phone] Angelica Saenz Unavailable Mao Palomino DDS Unavailable [phone] Reason for Visit * Reason Onset Date Comments Returning Call Back 12/19/2022 Encounter Details Date Type Department Care Team (Late st Contact Info) Description 12/19/2022 Telephone [facility] MEDICINE [address] [place] [address] Flora Santiago FNP [address] [place], [place] [phone] Returning Call Back Social History Tobacco Use [...] Description 09/08/2024 9:30 AM EST Medication Management [facility] MEDICINE [address] [place] [address] Kandi Panda PharmD [address] [place] [address] 12/24/2024 8:00 AM EDT Office Visit [facility] ADULT DENTAL [address] [place] [address] DanyDallinAngelica [address] [place] [address] documented as of this encounter Visit Diagnoses Not on filedocumented in this encounter Care Teams Lithographing Machine Operator Relationship Specialty Start Date End Date Flora Santiago FNP [address] [place] [address] PCP - General Family Medicine 05/02/21 Sherin Hall, RN [address] [place] [address] Train Gateman Family Medicine 07/30/23 Juan Jose Deshpande MD [address] [place] [address] Nephrology 06/13/24 Mihcael Glass MD [address] 3rd [place] [address] General Surgery 06/13/24 Demetrius Austin MD [address] [place] [address] Orthopaedic Surgery 06/13/24 Harry Garcia MD [address] [facility] [place] [address] Gastroenterology 06/13/24 Jovany Feliciano MD [address] [place] [address] Cardiology 06/13/24 Kandi Panda, RobertD [address] [place] [address] Pharmacist Internal Medicine 08/18/24 Angelica Saenz [address] [place] [address] Dental Hygienist Dental Blocker And Polisher 08/20/24 Mao Palomino DDS [address] [place] [address] Dentist Dental Blocker And Polisher 08/20/24 documented as of this encounter
--- OUTSIDE RECORDS SUMMARY | 2024-09-05 10:06 | XMS_ITS | Encounter Summary ---
Author Organization [employer] Address [address] [facility] 7t [place] [address] Care Team Providers Care Infant Childcare Provider Name Role Phone Flora Santiago Primary Care Provider Sherin Hall RN Unavailable Juan Jose Deshpande MD Unavailable [phone] Michael Glass MD Unavailable [phone] Demetrius Austin MD Unavailable Harry Garcia MD Unavailable [phone] Jovany Feliciano MD Unavailable [phone] Kandi Panda PharmD Unavailable Angelica Saenz Unavailable Mao Palomino DDS Unavailable [phone] Reason for Visit * Reason Onset Date Comments ER Follow-up 12/19/2022 Encounter Details Date Type Department Care Team (Late st Contact Info) Description 12/19/2022 Telephone [facility] MEDICINE [address] [place] [address] Flora Santiago FNP [address] [place], [place] [phone] ER Follow-up Social History Tobacco Use Types [...] - 12/20/2022 12:22 PM EDT T/C to [phone] through [employer] id - [id number] to schedule HDF , No answer. LVM to call back on [phone]. * Telephone Encounter - Elizabeth Call - 12/19/2022 3:14 PM EDT Tc from pt requesting a HDF appt. Pt was admitted at [facility] on 12/09/22 and discharged on 12/10/22 due to hernia by belly button, lower back pain, liver and left hip pain. Patient advised will forward to team documented in this encounter Plan of Treatment Upcoming Encounters Date Type Department Care Team (Late st Contact Info) Description 09/08/2024 9:30 AM EST Medication Management [facility] MEDICINE [address] [place] [address] Kandi Panda, PharmD [address] [place] [address] 12/24/2024 8:00 AM EDT Office Visit [facility] ADULT DENTAL [address] [place], [place] [phone] Angelica Saenz [address] [place] [address] documented as of this encounter Visit Diagnoses Not on filedocumented in this encounter Care Teams Infant Childcare Provider Relationship Specialty Start Date End Date Flora Santiago FNP [address] [place] [address] PCP - General Family Medicine 05/02/21 Sherin Hall, RN [address] [place] [address] Nozzle Operator Family Medicine 07/30/23 Juan Jose Deshpande MD [address] [place] [address] Nephrology 06/13/24 Michael Glass MD [address] [place] [address] Dr [address] [place] [address] General Surgery 06/13/24 Demetrius Austin MD [address] [place] [address] Orthopaedic Surgery 06/13/24 Harry Garcia MD [address] [place] [address] Gastroenterology 06/13/24 Jovany Feliciano MD [address] [place] [address] Cardiology 06/13/24 Kandi Panda, Fredrick [address] [place] [address] Pharmacist Internal Medicine 08/18/24 Dany, Angelica [address] [place] [address] Dental Hygienist Dental Medical Territory Manager 08/20/24 Mao Palomino DDS [address] [place] [address] Dentist Dental Medical Territory Manager 08/20/24 documented as of this encounter
--- OUTSIDE RECORDS SUMMARY | 2024-09-05 10:06 | XMS_ITS | Encounter Summary ---
Author Organization [employer] Address [address] [place] [address] 7t [place] [address] Care Team Providers Care Money Market Clerk Name Role Phone VaneGustavo minale TRADING ASSISTANT Primary Care Provider [phone] Sherin Hall RN Unavailable [phone] Juan Jose Deshpande MD Unavailable [phone] Micheal Glass MD Unavailable [phone] Demetrius Austin MD Unavailable Harry Garcia MD Unavailable [phone] Jovany Feliciano MD Unavailable Kandi Panda PharmD Unavailable [phone] Angelica Saenz Unavailable Mao Palomino DDS Unavailable [phone] Reason for Referral * Consultation (Routine) - Authorized Specialty Diagnoses / Procedures Referred By Contac t Referred To Contact Pharmacy Diagnoses Type 2 diabetes mellitus with hyperglycemia, with long-term current use of insulin ([facility]) Divya Amos MD 230 [place] [address] Phone: tel: fax: Referral ID Status Reason Start Date Expiration Date Visits Requested Visits Authorized [id number] Authorized Consult and Treat 06/11/2024 06/11/2025 6 6 Encounter Details Date Type Department Care Team (Late st Contact Info) Description 06/11/2024 Orders Only [facility] MEDICINE [address] [place], [place] [phone] Divya Amos MD [address] [place] [address] Type 2 diabetes mellitus with hyperglycemia, with long-term current use of insulin ([facility]/HCC) (Primary Dx) Social History Tobacco Use Types [...] the past 12 months, has t he [employer] gas, oil or water company threatened to [...] 9:30 AM EST Medication Management [facility] MEDICINE [address] [place] [address] Kandi Panda PharmD [address] [place], [place] 12/24/2024 8:00 AM EDT Office Visit [facility] ADULT DENTAL [address] [place] [address] Dallin Saenzaris [address] [place] [address] Scheduled Referrals Name Type Priority Associated Diagnoses Orde r Schedule Referral to Pharmacy CDTM Outpatient Referral Routine Type 2 diabetes mellitus with hyperglycemia, with long-term current use of insulin ([facility]) Ordered: 06/11/2024 documented as of this encounter Goals Goal Patient Goal Type Associated Problems Recent Progress Patient-Stated? Author Blood Pressure < 140/90 Blood Pressure 130/75(2024 9:06 AM EST) No Jose Maria Novak Hemoglobin A1c < 7 Result Component 7.6( 9:20 AM EST) No Jose Maria Novak documented as of this encounter Visit Diagnoses Diagnosis Type 2 diabetes mellitus with hyperglycemia, with long-term current use of insulin ([facility])- Primary documented in this encounter Additional Health Concerns Assessment Noted Time PHQ-9 Depression Total Score: 0 11/30/19 11:07 AM EDT documented as of this encounter Care Teams Money Market Clerk Relationship Specialty Start Date End Date Flora Santiago FNP [address] [place] [address] PCP - General Family Medicine 05/02/21 Sherin Hall, RN [address] [place] [address] Peoplesoft Family Medicine 07/30/23 Juan Jose Deshpande MD [address] [place], [place] Nephrology 06/13/24 Michael Glass MD [address] 3rd [place] [address] General Surgery 06/13/24 Demetrius Austin MD [address] [place] [address] Orthopaedic Surgery 06/13/24 Harry Garcia MD [address] [place] [address] Gastroenterology 06/13/24 Jovany Feliciano MD [address] [place] [address] Cardiology 06/13/24 Kandi Panda PharmD [address] [place] [address] Pharmacist Internal Medicine 08/18/24 Angelica Saenz [address] [place] [address] Dental Hygienist Dental Manager Cosmetic 08/20/24 Mao Palomino DDS [address] [place] [address] Dentist Dental Manager Cosmetic 08/20/24 documented as of this encounter
--- OUTSIDE RECORDS SUMMARY | 2024-09-05 10:06 | XMS_ITS | Encounter Summary ---
Author Organization [employer] [facility] Address [address] [place] [address] 7t [place] [address] Care Team Providers Care Doctor Of Naprapathic Medicine Name Role Phone Gustavo Santiagole TIER OVER Primary Care Provider [phone] Sherin Hall RN Unavailable [phone] Juan Jose Deshpande MD Unavailable [phone] Michael Glass MD Unavailable [phone] Demetrius Austin MD Unavailable Harry Garcia MD Unavailable [phone] Jovany Feliciano MD Unavailable [phone] Kandi Panda PharmD Unavailable Angelica Saenz Unavailable Mao Palomino DDS Unavailable Encounter Details Date Type Department Care Team (Latest Contact Info) Description 01/13/2021 Abstract [facility] CONVERSIONS Dental, Provider, DDS Social History Tobacco [...] 09/08/2024 9:30 AM EST Medication Management [facility] MEDICINE [address] [place] [address] Kandi Panda, PharmD 230 [place] [address] 12/24/2024 8:00 AM EDT Office Visit [facility] ADULT DENTAL [address] [place] [address] Angelica Saenz [address] [place] [address] documented as of this encounter Visit Diagnoses Not on filedocumented in this encounter Care Teams Doctor Of Naprapathic Medicine Relationship Specialty Start Date End Date Flora Santiago FNP [address] [place] [address] PCP - General Family Medicine 05/02/21 Sherin Hall, RN [address] [place] [address] Professor Of Early Childhood Education Family Medicine 07/30/23 Juan Jose Deshpande MD [address] [place] [address] Nephrology 06/13/24 Michael Glass MD [address] [place] [address] [address] [place] [address] General Surgery 06/13/24 Demetrius Austin MD [address] [place] [address] Orthopaedic Surgery 06/13/24 Harry Garcia MD [address] [place] [address] Gastroenterology 06/13/24 Jovany Feliciano MD [address] [place] [address] Cardiology 06/13/24 Kandi Panda PharmD [address] [place] [address] Pharmacist Internal Medicine 08/18/24 Angelica Saenz [address] [place], [place] [phone] Dental Hygienist Dental Snow Plow Tractor Operator 08/20/24 Mao Palomino DDS [address] [place], [place] [phone] Dentist Dental Snow Plow Tractor Operator 08/20/24 documented as of this encounter
--- OUTSIDE RECORDS SUMMARY | 2024-09-05 10:06 | XMS_ITS | Clinical Summary ---
Author Organization [facility] Address [address] [place] [address] Phone Care Team Providers Care Steel Worker Name Role Phone Unavailable Primary Care Provider [...] 08/09/2020 Influenza Vaccine (#1) 2024 Insurance [place]
--- OUTSIDE RECORDS SUMMARY | 2024-09-05 10:06 | XMS_ITS | Encounter Summary ---
Author Organization [employer] Address 75 [facility] 7t [place] [address] Care Team Providers Care Wealth Management Director Name Role Phone Flora Santiago CRACKING UNIT OPERATOR Primary Care Provider Sherin Hall RN Unavailable [phone] Juan Jose Deshpande MD Unavailable [phone] Michael Glass MD Unavailable [phone] Demetrius Austin MD Unavailable Harry Garcia MD Unavailable [phone] Jovany Feliciano MD Unavailable Kandi Panda PharmD Unavailable Angelica Saenz Unavailable Mao Palomino DDS Unavailable [phone] Encounter Details Date Type Department Care Team (Late st Contact Info) Description 07/14/2022 Orders Only [facility] CHC MED & PEDS [address] [place], [place] [id number] Shahnaz Perez LPN Social History Tobacco Use [...] 9:30 AM EST Medication Management [facility] MEDICINE 230 [place] [address] Kandi Panda PharmD 230 [place] [address] 12/24/2024 8:00 AM EDT Office Visit [facility] ADULT DENTAL 230 [place] [address] Dany, Angelica 230 [place] [address] documented as of this encounter Visit Diagnoses Not on filedocumented in this encounter Care Teams Wealth Management Director Relationship Specialty Start Date End Date Flora Santiago FNP 230 [place] [address] PCP - General Family Medicine 05/02/21 Sherin Hall, RN [address] [place] [address] Drywall Carrier Family Medicine 07/30/23 Juan Jose Deshpande MD [address] [place] [address] Nephrology 06/13/24 Michael Glass MD [address] [place] [address] Dr 3rd [place] [address] General Surgery 06/13/24 Demetrius Austin MD [address] [place] [address] Orthopaedic Surgery 06/13/24 Harry Garcia MD [address] [facility] [address] [place] [address] Gastroenterology 06/13/24 Jovany Feliciano MD [address] 3rd [place] [address] Cardiology 06/13/24 Kandi Panda PharmD 230 [place] [address] Pharmacist Internal Medicine 08/18/24 Angelica Saenz 230 [place] [address] Dental Hygienist Dental Food Specialist 08/20/24 Mao Palomino DDS 230 [place] [address] Dentist Dental Food Specialist 08/20/24 documented as of this encounter
--- OUTSIDE RECORDS SUMMARY | 2024-09-05 10:06 | XMS_ITS | Encounter Summary ---
Author Organization [employer] Address 75 [facility] 7t [place] [address] Care Team Providers Care Clinical Support Nurse Name Role Phone Flora Santiago MACHINE SHOP INSTRUCTOR Primary Care Provider [phone] Sherin Hall RN Unavailable [phone] Juan Jose Deshpande MD Unavailable [phone] Michael Glass MD Unavailable [phone] Demetrius Austin MD Unavailable Harry Garcia MD Unavailable [phone] Jovany Feliciano MD Unavailable Kandi Panda PharmD Unavailable [phone] Angelica Saenz Unavailable Mao Palomino DDS Unavailable [phone] Encounter Details Date Type Department Care Team (Late st Contact Info) Description 05/25/2023 Abstract [facility] MEDICINE [address] [place] [address] Debi Zamora Social History Tobacco Use Types [...] Description 09/08/2024 9:30 AM EST Medication Management [facility] MEDICINE [address] [place] [address] Kandi Panda, RobertD 230 [place] [address] 12/24/2024 8:00 AM EDT Office Visit [facility] ADULT DENTAL 230 [place] [address] DanyAngelica 230 [place] [address] documented as of this encounter Procedures Procedure Name Priority Date/Time Associated Diagnosis Comments COLONOSCOPY Routine 03/17/2021 documented in this encounter Results * Colonoscopy (03/17/2021) Colonoscopy Normal Normal Narrative Debi Zamora - 03/17/2021 Repeat in 5 years tubular adenoma us Historical Provider HEALTH MAINTENANCE Final Result documented in this encounter Visit Diagnoses Not on filedocumented in this encounter Care Teams Clinical Support Nurse Relationship Specialty Start Date End Date Flora Santiago FNP 230 [place] [address] PCP - General Family Medicine 05/02/21 Sherin Hall, RN 230 [place] [address] Supplier Manager Family Medicine 07/30/23 Juan Jose Deshpande MD [address] [place] [address] Nephrology 06/13/24 Michael Glass MD [address] [facility] [address] [place] [address] General Surgery 06/13/24 Demetrius Austin MD [address] [place] [address] Orthopaedic Surgery 06/13/24 Harry Garcia MD [address] [place] [address] [place] [address] Gastroenterology 06/13/24 Jovany Feliciano MD [address] [place] [address] Cardiology 06/13/24 Kandi Panda PharmD [address] [place] [address] Pharmacist Internal Medicine 08/18/24 Angelica Saenz 230 [place] [address] Dental Hygienist Dental Hr Payroll Coordinator 08/20/24 Mao Palomino DDS [address] [place] [address] Dentist Dental Hr Payroll Coordinator 08/20/24 documented as of this encounter
--- OUTSIDE RECORDS SUMMARY | 2024-09-05 10:06 | XMS_ITS | Encounter Summary ---
Author Organization [employer] [facility] Address [address] [place] [address] 7t [place] [address] Care Team Providers Care Gi Technician Name Role Phone Gustavo Santiagole TOPOGRAPHIC COMPUTATOR Primary Care Provider Sherin Hall RN Unavailable [phone] Juan Jose Deshpande MD Unavailable [phone] Michael Glass MD Unavailable [phone] Demetrius Austin MD Unavailable Harry Garcia MD Unavailable [phone] Jovany Feliciano MD Unavailable [phone] Kandi Panda PharmD Unavailable Angelica Saenz Unavailable Mao Palomino DDS Unavailable [phone] Encounter Details Date Type Department Care Team (Latest Contact Info) Description 01/24/2019 Abstract [facility] CONVERSIONS Dental, Provider, DDS Social [...] 9:30 AM EST Medication Management [facility] MEDICINE 230 [place] [address] Kandi Panda, PharmD 230 [place] [address] 12/24/2024 8:00 AM EDT Office Visit [facility] ADULT DENTAL 230 [place] [address] Angelica Saenz 230 [place] [address] documented as of this encounter Visit Diagnoses Not on filedocumented in this encounter Care Teams Gi Technician Relationship Specialty Start Date End Date Flora Santiago FNP 230 [place] [address] PCP - General Family Medicine 05/02/21 Sherin Hall, RN [address] [place] [address] Vacuum Cleaner Operator Family Medicine 07/30/23 Juan Jose Deshpande MD [address] [place] [address] Nephrology 06/13/24 Michael Glass MD [address] [place] [address] Dr [address] [place] [address] General Surgery 06/13/24 Demetrius Austin MD [address] [place] [address] Orthopaedic Surgery 06/13/24 Harry Garcia MD [address] [place] [address] Gastroenterology 06/13/24 Jovany Feliciano MD [address] [place] [address] Cardiology 06/13/24 Kandi Panda PharmD 230 [place] [address] Pharmacist Internal Medicine 08/18/24 Angelica Saenz 230 [place], [place] [phone] Dental Hygienist Dental Seed Specialist 08/20/24 Mao Palomino DDS 230 [place], [place] [address] Dentist Dental Seed Specialist 08/20/24 documented as of this encounter
--- OUTSIDE RECORDS SUMMARY | 2024-09-05 10:06 | XMS_ITS | Encounter Summary ---
Author Organization [employer] Address 75 [facility] 7t [place] [address] Care Team Providers Care Bartender Manager Name Role Phone Flora Santiago MEDIA PRODUCTION SUPPORT MANAGER Primary Care Provider Sherin Hall RN Unavailable [phone] Juan Jose Deshpande MD Unavailable [phone] Michael Glass MD Unavailable [phone] Demetrius Austin MD Unavailable Harry Garcia MD Unavailable [phone] Jovany Feliciano MD Unavailable [phone] Kandi Panda PharmD Unavailable Angelica Saenz Unavailable Mao Palomino DDS Unavailable [phone] Encounter Details Date Type Department Care Team (Late st Contact Info) Description 10/04/2022 Orders Only [facility] CHC MED & PEDS 505 [place], [place] [phone] Shahnaz Perez LPN Social History Tobacco Use [...] Description 09/08/2024 9:30 AM EST Medication Management [facility] MEDICINE 230 [place] [address] Kandi Panda PharmD 230 [place] [address] 12/24/2024 8:00 AM EDT Office Visit [facility] ADULT DENTAL 230 [place] [address] Dallin Saenzaris 230 [place] [address] documented as of this encounter Visit Diagnoses Not on filedocumented in this encounter Care Teams Bartender Manager Relationship Specialty Start Date End Date Flora Santiago FNP 230 [place] [address] PCP - General Family Medicine 05/02/21 Sherin Hall, MICHELLE 230 [place] [address] Weed Eradicator Family Medicine 07/30/23 Juan Jose Deshpande MD [address] [place] [address] Nephrology 06/13/24 Michael Glass MD [address] [place] [address] Dr [address] [place] [address] General Surgery 06/13/24 Demetrius Austin MD [address] [place] [address] Orthopaedic Surgery 06/13/24 Harry Garcia MD [address] [facility] [address] [place] [address] Gastroenterology 06/13/24 Jovany Feliciano MD [address] [place] [address] 3rd [place] [address] Cardiology 06/13/24 Kandi Panda PharmD 230 [place] [address] Pharmacist Internal Medicine 08/18/24 Angelica Saenz 230 [place] [address] Dental Hygienist Dental News Agent 08/20/24 Mao Palomino DDS 230 [place] [address] Dentist Dental News Agent 08/20/24 documented as of this encounter
--- OUTSIDE RECORDS SUMMARY | 2024-09-05 10:07 | XMS_ITS | Encounter Summary ---
Author Organization [employer] Address [address] [place] [address] 7t [place] [address] Care Team Providers Care Liner Installer Name Role Phone Flora Santiago DISBURSEMENT CLERK Primary Care Provider [phone] Sherin Hall RN Unavailable [phone] Juan Jose Deshpande MD Unavailable [phone] Michael Glass MD Unavailable [phone] Demetrius Austin MD Unavailable Harry Garcia MD Unavailable [phone] Jovany Feliciano MD Unavailable Kandi Panda PharmD Unavailable Angelica Saenz Unavailable Mao Palomino DDS Unavailable [phone] Encounter Details Date Type Department Care Team (Late st Contact Info) Description 02/22/2023 Orders Only [facility] MEDICINE 230 [place], [place] [phone] Yanique Hart MD [address] [place], [place] [phone] Other ascites (Primary Dx) Social History Tobacco [...] Description 09/08/2024 9:30 AM EST Medication Management [facility] MEDICINE 230 [place] [address] Kandi Panda PharmD [address] [place] [address] 12/24/2024 8:00 AM EDT Office Visit [facility] ADULT DENTAL 230 [place] [address] Dany, Angelica 230 [place] [address] Scheduled Orders Name Type Priority Associated Diagnoses [...] Primary documented in this encounter Care Teams Liner Installer Relationship Specialty Start Date End Date Flora Santiago FNP 230 [place] [address] PCP - General Family Medicine 05/02/21 Sherin Hall, RN [address] [place] [address] Documentation Lead Family Medicine 07/30/23 Juan Jose Deshpande MD [address] [place] [address] Nephrology 06/13/24 Michael Glass MD [address] [facility] [address] 3rd [place] [address] General Surgery 06/13/24 Demetrius Austin MD [address] [place] [address] Orthopaedic Surgery 06/13/24 Harry Garcia MD [address]rd [place] [address] Gastroenterology 06/13/24 Jovany Feliciano MD [address]rd [place] [address] Cardiology 06/13/24 Kandi Panda, Fredrick [address] [place] [address] Pharmacist Internal Medicine 08/18/24 Angelica Saenz 230 [place] [address] Dental Hygienist Dental Research Agricultural Engineer 08/20/24 Mao Palomino DDS 230 [place] [address] Dentist Dental Research Agricultural Engineer 08/20/24 documented as of this encounter
--- OUTSIDE RECORDS SUMMARY | 2024-09-05 10:07 | XMS_ITS | Encounter Summary ---
Author Organization [employer] Address 75 [facility] 7t [place] [address] Care Team Providers Care Electronics Commodity Manager Name Role Phone Flora Santiago Primary Care Provider Sherin Hall RN Unavailable [phone] Juan Jose Deshpande MD Unavailable [phone] Michael Glass MD Unavailable [phone] Demetrius Austin MD Unavailable Harry Garcia MD Unavailable [phone] Jovany Feliciano MD Unavailable Kandi Panda PharmD Unavailable Angelica Saenz Unavailable Mao Palomino DDS Unavailable [phone] Encounter Details Date Type Department Care Team (Late st Contact Info) Description 02/15/2023 Telephone [facility] MEDIC[facility] [address] [place] [address] Flora Santiago FNP [address] [place], [place] [phone] Social History Tobacco Use Types Packs/Day Years [...] call from sarah. Please contact pt at [phone] (Liberian) documented in this encounter Plan of Treatment Upcoming Encounters Date Type Department Care Team (Late st Contact Info) Description 09/08/2024 9:30 AM EST Medication Management [facility] MEDIC[facility] [address] [place] [address] Kandi Panda PharmD 230 [place] [address] 12/24/2024 8:00 AM EDT Office Visit [facility] ADULT DENTAL [address] [place] [address] Dany, Angelica [address] [place] [address] documented as of this encounter Visit Diagnoses Not on filedocumented in this encounter Care Teams Electronics Commodity Manager Relationship Specialty Start Date End Date Flora Santiago FNP [address] [place] [address] PCP - General Family Medicine 05/02/21 Sherin Hall, MICHELLE 230 [place] [address] Traffic Supervisor Family Medicine 07/30/23 Juan Jose Deshpande MD [address] [place] [address] Nephrology 06/13/24 Michael Glass MD [address] [place] [address] Dr 3rd [place] [address] General Surgery 06/13/24 Demetrius Austin MD [address] [place] [address] Orthopaedic Surgery 06/13/24 Harry Garcia MD [address] 3rd [place] [address] Gastroenterology 06/13/24 Jovany Feliciano MD [address] 3rd [place] [address] Cardiology 06/13/24 Kandi Panda, RobertD 230 [place] [address] Pharmacist Internal Medicine 08/18/24 Angelica Saenz 230 [place] [address] Dental Hygienist Dental Disposal Plant Operator 08/20/24 Mao Palomino DDS [address] [place] [address] Dentist Dental Disposal Plant Operator 08/20/24 documented as of this encounter
--- OUTSIDE RECORDS SUMMARY | 2024-09-05 10:07 | XMS_ITS | Encounter Summary ---
Author Organization [employer] Address [address] [facility] 7t [place] [address] Care Team Providers Care Chainstitch Binder Name Role Phone Flora Santiago PLATE KEEPER Primary Care Provider [phone] Sherin Hlal RN Unavailable [phone] Juan Jose Deshpande MD Unavailable [phone] Michael Glass MD Unavailable [phone] Demetrius Austin MD Unavailable Harry Garcia MD Unavailable [phone] Jovany Feliciano MD Unavailable Kandi Panda PharmD Unavailable Angelica Saenz Unavailable Mao Palomino DDS Unavailable [phone] Reason for Visit * Reason Onset Date Comments Results 08/28/2024 Encounter Details Date Type Department Care Team (Late st Contact Info) Description 08/28/2024 Telephone [facility] MED & PEDS 505 [place], [place] [phone] Elida Gutierrez, MICHELLE Results Social History Tobacco Use Types Packs/Day Years [...] encounter Miscellaneous Notes * Telephone Encounter - Elida Gutierrez RN - 08/28/2024 9:53 AM EST TC placed to pt to inform of information below regarding blood work results. The pt confirmed that he does not have a date yet for the liver MRI as ordered by [facility]. Pt states the was told he will be contacted to schedule but there is a hold up with the insurance. Labs ordered by the externalprovider on 08/13/[address] Hawk according to the pt. The pt has not been contacted regarding the results are any corresponding follow up. ----- Message from Flora Santiago sent at 08/26/2024 3:12 PM EST ----- Please call Mr. Stanley to let him know that AFP level which is a marker that we use to help screen for liver cancer was within normal limits. Please ask if he has a date yet for liver MRI ordered by [facility]. Labs also demonstrated elevated total protein, and I can see serum immunofixation results ordered by another provider with elevated Immunoglobulin A. This could be due to his liver disease, but may warrant further investigation. Please encourage him to follow up with ordering provider. Thank you! documented in this encounter Plan of Treatment Upcoming Encounters Date Type Department Care Team (Late st Contact Info) Description 09/08/2024 9:30 AM EST Medication Management [facility] MEDICINE 230 [place] [address] Kandi Panda PharmD 230 [place] [address] 12/24/2024 8:00 AM EDT Office Visit [facility] ADULT DENTAL 230 [place] [address] Dany, Angelica 230 [place] [address] documented as of this encounter Goals Goal [...] documented as of this encounter Care Teams Chainstitch Binder Relationship Specialty Start Date End Date Flora Santiago FNP [address] [place] [address] PCP - General Family Medicine 05/02/21 Sherin Hall RN [address] [place] [address] School Speech Language Pathologist Family Medicine 07/30/23 Juan Jose Deshpande MD [address] [place] [address] Nephrology 06/13/24 Michael Glass MD [address] [facility] [address] [place] [address] General Surgery 06/13/24 Demetrius Austin MD [address] [place] [address] Orthopaedic Surgery 06/13/24 Harry Garcia MD [address] [place] [address] Gastroenterology 06/13/24 Jovany Feliciano MD [address] [place] [address] Cardiology 06/13/24 Kandi Panda PharmD 230 [place] [address] Pharmacist Internal Medicine 08/18/24 Angelica Saenz 230 [place] [address] Dental Hygienist Dental Arcade Game Technician 08/20/24 Mao Palomino DDS 230 [place] [address] Dentist Dental Arcade Game Technician 08/20/24 documented as of this encounter
--- OUTSIDE RECORDS SUMMARY | 2024-09-05 10:07 | XMS_ITS | Encounter Summary ---
Author Organization [employer] Address 75 [facility] 7t [place] [address] Care Team Providers Care Substation Electrician Supervisor Name Role Phone Flora Santiago MEAT HOSTESS Primary Care Provider [phone] Sherin Hall RN Unavailable [phone] Juan Jose Deshpande MD Unavailable [phone] Michael Glass MD Unavailable [phone] Demetrius Austin MD Unavailable Harry Garcia MD Unavailable [phone] Jovany Feliciano MD Unavailable [phone] Encounter Details Date Type Department Care Team [...] Description 09/08/2024 9:30 AM EST Medication Management [facility] MEDICINE 230 [place] [address] Kandi Panda, PharmD 230 [place] [address] 12/24/2024 8:00 AM EDT Office Visit [facility] ADULT DENTAL 230 [place] [address] Angelica Saenz 230 [place] [address] documented as of this encounter Goals Goal Patient Goal Type Associated Problems Recent Progress Patient-Stated? Author Blood Pressure < 140/90 Blood Pressure 130/75(2024 9:06 AM EST) Jose Maria Orozco Hemoglobin A1c < 7 Result Component 7.6( 9:20 AM EST) Jose Maria Orozco documented as of this encounter Visit Diagnoses Not on filedocumented in this encounter Additional Health Concerns Assessment Noted Time PHQ-9 Depression Total Score: 0 11/30/19 24 11:07 AM EDT documented as of this encounter Care Teams Substation Electrician Supervisor Relationship Specialty Start Date End Date Flora Santiago FNP 230 [place] [address] PCP - General Family Medicine 05/02/21 Sherin Hall, RN 230 [place] [address] Celebrity Chef Entrepreneur Media Personality Family Medicine 07/30/23 Juan Jose Deshpande MD [address] [place] [address] Nephrology 06/13/24 Michael Glass MD [address] [place] [address] 3rd [place] [address] General Surgery 06/13/24 Demetrius Austin MD [address] [place] [address] Orthopaedic Surgery 06/13/24 Harry Garcia MD [address] [place] [address] Gastroenterology 06/13/24 Jovany Feliciano MD [address] [place] [address] Cardiology 06/13/24 documented as of this encounter
--- OUTSIDE RECORDS SUMMARY | 2024-09-05 10:07 | XMS_ITS | Encounter Summary ---
Author Organization [employer] Address 75 [facility] 7t [place] [address] Care Team Providers Care Real Estate Transaction Manager Name Role Phone Flora Santiago CIARRA Primary Care Provider [phone] Sherin Hall RN Unavailable [phone] Juan Jose Deshpande MD Unavailable [phone] Micahel Glass MD Unavailable [phone] Demetrius Austin MD Unavailable Harry Garcia MD Unavailable [phone] Jovany Feliciano MD Unavailable [phone] Reason for Visit * Reason Onset Date Comments Chart Prep 08/07/2024 Encounter Details Date Type Department Care Team (Late st Contact Info) Description 08/07/2024 Telephone [facility] MEDICINE [address] [place] [address] Owen Hughes [place] Chart Prep Social History [...] Description 09/08/2024 9:30 AM EST Medication Management [facility] MEDICINE [address] [place] [address] Kandi Panda, RobertD [address] [place] [address] 12/24/2024 8:00 AM EDT Office Visit [facility] ADULT DENTAL [address] [place] [address] Angelica Saenz [address] [place] [address] documented as of this encounter Goals Goal [...] documented as of this encounter Care Teams Real Estate Transaction Manager Relationship Specialty Start Date End Date Flora Santiago FNP 230 [place] [address] PCP - General Family Medicine 05/02/21 Sherin Hall, MICHELLE 230 [place] [address] Provider Engagement Executive Family Medicine 07/30/23 Juan Jose Deshpande MD [address] [place] [address] Nephrology 06/13/24 Michael Glass MD [address] [place] [address] Dr [address] [place] [address] General Surgery 06/13/24 Demetrius Austin MD [address] [place] [address] Orthopaedic Surgery 06/13/24 Harry Garcia MD [address] [facility] [address] [place] [address] Gastroenterology 06/13/24 Jovany Feliciano MD [address] [facility] [address] [facility] [address] [place] [address] Cardiology 06/13/24 documented as of this encounter
--- OUTSIDE RECORDS SUMMARY | 2024-09-05 10:07 | XMS_ITS | Encounter Summary ---
Author Organization [employer] Address [address] [facility] [address] [place] [address] Care Team Providers Care Metallic Yarn Slitting Machine Operator Name Role Phone Flora Santiago Primary Care Provider [phone] Sherin Hall RN Unavailable [phone] Juan Jose Deshpande MD Unavailable [phone] Michael Glass MD Unavailable [phone] Demetrius Austin MD Unavailable Harry Garcia MD Unavailable [phone] Jovany Feliciano MD Unavailable Reason for Referral * Consultation (STAT) - Closed Specialty Diagnoses / Procedures Referred By Jana rabago Referred To Contact Gastroenterology Diagnoses Liver lesion Cirrhosis of liver with ascites, unspecified hepatic cirrhosis type (CMS/HCC) (CMS/HCC) Flora Santiago FNP [address] [place] [address] Phone: tel: fax: [facility] [address] [place], [place] Phone: tel: fax: Referral ID Status Reason Start Date Expiration Date V isits Requested Visits Authorized [id number] Closed Specialty Services Required 08/12/2024 08/12/2025 1 1 Encounter Details Date Type Department Care Team ([facility] st Contact Info) Description 08/11/2024 11:30 AM EST Telemedicine [facility] [address] [place] [address] Flora Santiago, AUTO BODY REPAIRER [employer] [address] [place] [address] Liver lesion (Primary Dx); Primary hypertension; Cirrhosis [...] office for a follow up visit - [facility] ED f/up. HPI: Last PCP visit: 06/13/24 Referral to physical therapy for left shoulder pain [facility] ED visit on 07/17/2024 for intermittent chest pain. ACS ruled out and completed follow-up with [facility] cards on 07/30/2024. Plan for myocardial perfusion study to assess for ischemic changes. Liver lesion: incidental finding during ED visit. CTA chest demonstrated arterial enhancing lesion measuring 1x1.6cm. Concern for hepatocellular carcinoma. Will refer urgently to GI. Ordering Physician: Oswaldo Villareal Date of Service: 07/17/24 Procedure(s): CT angio chest PE protocol Accession Number(s): [id number] ADDENDUM This document has been electronically signed [...] visit. Patient verbalized being located in the [facility] during the televisit. Provider was located in an Ambulatory examroom/outside the office at a secure location during the visits. Specialists: Gastro: Previously following with Dr. Garcia ([facility]) - Cirrhosis w/ ascites Surgery: Dr. Glass ([facility]) - inguinal hernia Nephrology: Dr. Deshpande ([facility]) Urology: WILL Harris - microhematuria Cards: Dr. Feliciano ([facility]) - hypertension Review of Systems Constitutional: Negative [...] Current Assessment & Plan -Previously following with [facility] GI, although transferring to [facility] [place]. -MELD score 8 -Previously completing paracentesis for [...] r/o of hepatocellular carcinoma. - Scheduled w/ [facility] GI for 08/13/24. Relevant Orders CBC auto differential Alpha-Fetoprotein, Tumor Marker Hepatic Function Panel Referral to Gastroenterology Follow up: per recall, sooner as needed documented in this encounter Miscellaneous Notes * Assessment & Plan Note - CIARRA Josue - 08/12/2024 10:02 AM EST Associated Problem(s): Cirrhosis of liver with ascites (CMS/HCC) (CMS/HCC) -Previously following with [facility] GI, although transferring to [facility] [place]. -MELD score 8 -Previously completing paracentesis for [...] Medication Management [facility] [address] [place], [place] [phone] Kandi Panda PharmD [address] [place], [place] [phone] 12/24/2024 8:00 AM EDT Office Visit [facility] [address], [place] [phone] Dallin Saenzaris [address], [place] [phone] Scheduled Referrals Name Type Priority Associated Diagnoses [...] Bilirubin, Total 1.2(H) 0.0 - 1.0 mg/dL [facility] Bilirubin, Direct 0.5 0.0 - 0.5 mg/dL [facility] Aspartate Amino Transferase 32 5 - 37 U/L [facility] Alanine Aminotransferase 19 0 - 40 U/L [facility] Total Protein 9.1(H) 6.5 - 8.0 g/dL [facility] Albumin Level 4.4 3.5 - 5.0 g/dL [facility] Alkaline Phosphatase 167(H) 39 - 117 U/L [facility] Blood Venous blood specimen / Unknown 08/13/2024 11:49 AM EST 08/13/2024 11:49 AM EST Flora Santiago [facility] BLOOD ORDERABLES Final Res ult Performing Organization Address [facility] Number [facility] [address] [place] [phone] * Alpha-Fetoprotein, Tumor Marker (08/13/2024 11:49 AM EST) Pathologist [facility] Alpha Fetoprotein 2.7 <6.1 ng/mL [facility] Comment:This test was perfor med using the Aida Coulterchemiluminescent method. Values obtained fromdifferent assay methods cannot be usedinterchangeably. AFP levels, regardless ofvalue, should not be interpreted as absoluteevidence of the presence or absence of disease.THIS TEST WAS PERFORMED AT:[id number] [place] [phone] GARCIA MD Blood Venous blood specimen / Unknown 08/13/2024 11:49 AM EST 08/13/2024 11:49 AM EST [facility] BLOOD ORDERABLES Final Res ult Performing Organization Address [facility] de Phone Number [facility] [address] [place] [phone] * (ABNORMAL) CBC auto differential (08/13/2024 11:49 AM EST) Pathologist [facility] White Blood Count 11.4(H) 4.8 - 10.8 X10*3/uL [facility] Red Blood Count 5.21 4.60 - 5.80 X10*6/uL [facility] Hemoglobin 14.0 14.0 - 18.0 g/dl [facility] Hematocrit 42.3 42.0 - 52.0 % [facility] Mean Corpuscular Volume 81.2 80.0 - 98.0 fL [facility] Mean Corpuscular Hemoglobin 26.9(L) 27.0 - 33.0 pg [facility] Mean Corpuscular HGB Conc 33.1 31.0 - 36.0 g/dl [facility] Red Cell Distribution Width 13.9 11.0 - 16.0 % [facility] Platelet Count 212 160 - 400 X10*3/uL [facility] Mean Platelet Volume 10.2 9.4 - 12.4 fL [facility] Neutrophils Percent Auto 78.4(H) 45 - 73 % [facility] Imm Gran Pct Auto 0.4 0.0 - 0.4 % [facility] Lymphocytes Percent Auto 11.1(L) 20 - 40 % [facility] Monocytes Percent Auto 9.2 2 - 11 % [facility] Eosinophils Percent Auto 0.5 0 - 4 % [facility] Basophils Percent Auto 0.4 0 - 2 % [facility] NRBC Pct Auto 0.0 0.0 - 0.2 /100WBC [facility] Neutrophils Absolute Auto 8.9(H) 2.0 - 8.3 x10*3/uL [facility] Imm Gran Abs Auto 0.04(H) 0.00 - 0.03 X10*3/uL [facility] Lymphocytes Absolute Auto 1.3 1.2 - 4.9 X10*3/uL [facility] Monocytes Absolute Auto 1.0 0.1 - 1.2 X10*3/uL [facility] Eosinophils Absolute Auto 0.1 0.0 - 0.4 X10*3/uL [facility] Basophils Absolute Auto 0.0 0.0 - 0.2 X10*3/uL [facility] NRBC Abs Auto 0.000 0.0 - 0.012 X10*3/uL [facility] Blood Venous blood specimen / Unknown 08/13/2024 11:49 AM EST 08/13/2024 11:49 AM EST us Flora [facility] BLOOD ORDERABLES Final Res ult [facility] [address] [place] [phone] documented in this encounter Visit Diagnoses Diagnosis Liver lesion- Primary Other specified disorders of liver Primary hypertension Unspecified essential hypertension Cirrhosis of liver with ascites, unspecified hepatic cirrhosis type (CMS/HCC) (CMS/HCC) documented in this encounter Additional Health Concerns Assessment Noted Time PHQ-9 Depression Total Score: 0 11/30/19 11:07 AM EDT documented as of this encounter Care Teams Metallic Yarn Slitting Machine Operator Relationship Specialty Start Date End Date Flora Santiago FNP [address] [place] [address] PCP - General Family Medicine 05/02/21 Sherin Hall, RN [address] [place] [address] [employer] [facility] 07/30/23 Juan Jose Deshpande MD [address] [place] [address] Nephrology 06/13/24 Michael Glass MD [address] [place] [address] Dr [address] [place] [address] General Surgery 06/13/24 Demetrius Austin MD [address] [place] [address] Orthopaedic Surgery 06/13/24 Harry Garcia MD [address] [place] [address] Gastroenterology 06/13/24 Jovany Feliciano MD [address] 3rd Floor [place] [address] Cardiology 06/13/24 documented as of this encounter
--- OUTSIDE RECORDS SUMMARY | 2024-09-05 10:07 | XMS_ITS | Encounter Summary ---
Author Organization [employer] Address [address] [facility] 7[address] [place] [address] Care Team Providers Care Senior It Engineer Name Role Phone Flora Santiago Primary Care Provider [phone] Sherin Hall RN Unavailable [phone] Juan Jose Deshpande MD Unavailable [phone] Michael Glass MD Unavailable [phone] Demetrius Austin MD Unavailable Harry Garcia MD Unavailable [phone] Jovany Feliciano MD Unavailable [phone] Reason for Visit * Reason Onset Date Comments Care Coordination: [facility] 08/13/2024 Encounter Details Date Type Department Care Team (Late st Contact Info) Description 08/13/2024 Telephone [facility] [address] [place] [address] Flora Santiago FNP [address] [place] [address] Care Coordination: [facility] Social History Tobacco Use Types Packs/Day Years [...] Notes * Telephone Encounter - Flora Santiago, SIPHONER - 08/13/2024 3:01 PM EST Provider called to [facility] and scheduled urgent appt for liver lesion w/ hx cirrhosis. Scheduled for 08/13/24 at 1:15pm with Dr. Hawk. PCP called pt and informed of appointment. Referrals teamfaxed at 10:51am on 08/12/24 the referral info plus notes and CT scan to the [facility] fax number: . PCP called to make sure it had arrived on 08/12/24. They said would return call by end of day if not.No call. On 08/13/24 [facility] called and said they would check in pile of notes and let us know if received. 3pm: PCP called back to [facility]. Pt arrived for appt. Requesting notes be sent to other fax number: . Dr. Hawk. Spoke with referrals team who will fax over now. Plan: [facility] planning to give call back by end of time to confirm receipt of information. Please let me know if received. If not, please see referral info and fax to desired number. Thank you. documented in this encounter Plan of Treatment Upcoming Encounters Date Type Department Care Team (Late st Contact Info) Description 09/08/2024 9:30 AM EST Medication Management [facility] [address] [place] [address] Kandi Panda PharmD [address] [place] [address] 12/24/2024 8:00 AM EDT Office Visit [facility] [address] [place] [address] Angelica Saenz [address] [place] [address] documented as of this encounter Goals Goal [...] documented as of this encounter Care Teams Senior It Engineer Relationship Specialty Start Date End Date Flora Santiago FNP [address] [place] [phone] PCP - General Family Medicine 05/02/21 Sherin Hall, MICHELLE [address] [place] [phone] Certified Master Locksmith Family Medicine 07/30/23 Juan Jose Deshpande MD [address] [place] [address] Nephrology 06/13/24 Michael Glass MD [address] [place] [address] Dr [address] [place] [address] General Surgery 06/13/24 Demetrius Austin MD [address] [place] [address] Orthopaedic Surgery 06/13/24 Harry Garcia MD [address] [place] [address] Gastroenterology 06/13/24 Jovany Feliciano MD [address] [place] [address] Cardiology 06/13/24 documented as of this encounter
--- OUTSIDE RECORDS SUMMARY | 2024-09-05 10:07 | XMS_ITS | Clinical Summary ---
Author Organization [employer] Address [address] [place] [address] Care Team Providers Care Brands Editor Name Role Phone VanekeeleyGustavole CIARRA Primary Care Provider [phone] Sherin Hall RN Unavailable [phone] Juan Jose Deshpande MD Unavailable [phone] Michael Glass MD Unavailable [phone] Demetrius Austin MD Unavailable Harry Garcia MD Unavailable [phone] Jovany Feliciano MD Unavailable Kandi Panda PharmD Unavailable [phone] Angelica Saenz Unavailable Mao Palomino DDS Unavailable [phone] Allergies Active Allergy Reactions Criticality Noted Date Comments Atorvastatin High 02/01/2023 Other reaction(s): elevated LFTs Shrimp Extract High 02/01/2023 Other reaction(s): Difficulty Breathing Medications beta carotene (vitamin A) 3 MG (88275 UT) capsule Take 10,000 Units by mouth in the morning. Active zinc sulfate (Zincate) 220 (50 Zn) MG capsule Take 50 mg of elemental zinc by mouth in the morning. Active simethicone (Mylicon) 125 MG chewable tablet Chew 125 mg 3 times daily. PRN Active thiamine (Vitamin B-1) 100 MG tablet Take 100 mg by mouth 3 times daily. Active Continuous Blood Gluc [employer] Architect ([employer] Bill 2 [place]) device Scan sensor every 8 hours 1 each 11/27/2 023 Active lidocaine (Lidoderm) 5 % patch APPLY 1 PATCH TOPICALLY TO SKIN, LEAVE ON FOR 12 HOURS AND OFF FOR 12 HOURS DIRECTED 30 patch 11 Active TRUEplus Lancets 33G miscIndications :Type 2 diabetes mellitus with hyperglycemia, unspecified whether senior living insulin use ([facility]) TEST BLOOD SUGAR THREE TIMES DAILY 100 each 11 Active ezetimibe (Zetia) 10 MG tablet Take 10 mg by mouth in the morning. Active Xifaxan 550 MG tablet TAKE 1 TABLET BY MOUTH THREE TIMES DAILY FOR 2 WEEKS Active insulin pen needle (Sure Comfort Pen [place]) 31G x 5 mm misc USE DIRECTED FOUR TIMES DAILY 100 each Active ketoconazole (NIZOral) 2 % shampooIndicati ons:Tinea capitis APPLY 5-10 ML TOPICALLY TO WET CLEAN HAIR, LATHER, LEAVE ON FOR 3-5 MINUTES, THEN RINSE. USE EVERY 1-2 WEEKS OR TWICE A WEEK NEEDED 120 mL 1 Active furosemide (Lasix) 20 MG tablet Take 1 tablet (20 mg) by mouth Once per day. 90 tablet Active Praluent 75 MG/ML injection INJECT 75 MG SUBCUTANEOUSLY EVERY 2 WEEKS. ROTATE INJECTION SITES Active glucose blood (FreeStyle Precision Ric Test) test stripIndication s:Type 2 diabetes mellitus with hyperglycemia, unspecified whether senior living insulin use ([facility]) USE DIRECTED TO TEST BLOOD SUGAR THREE TIMES DAILY 100 each Active Inspra 50 MG tablet TAKE 1 TABLET BY MOUTH EVERY MORNING 90 tablet 1 Active Continuous Glucose Sensor (FreeStyle Bill 2 Sensor) miscIndications :Type 2 diabetes mellitus with hyperglycemia, with long-term current use of insulin ([facility]) USE DIRECTED CHANGE EVERY 14 DAYS 2 each Active Diclofenac Sodium 1 % gel APPLY 2 GRAMS TOPICALLY TO AFFECTED AREA(S) TWICE DAILY NEEDED 100 g 2 Active empagliflozin (Jardiance) 25 MG TAKE 1 TABLET BY MOUTH EVERY MORNING 90 tablet 1 Active Blood Pressure kitIndications: Primary hypertension Use to check blood pressure once daily and when symptomatic 1 kit 025 Active cholecalciferol VITAMIN D (Vitamin D-3) 50 MCG (1999) tabletIndicatio ns:Routine health maintenance TAKE 1 TABLET BY MOUTH EVERY EVENING 90 tablet 3 025 Active tadalafil (Cialis) 5 MG tablet Take 1 tablet by mouth Once per day. 024 Active Lancet Device misc 1 each Once daily as needed (to confirm hypoglycmeia). 1 each 025 Active lisinopril 10 MG tabletIndicatio ns:Primary hypertension Take 1 tablet (10 mg) by mouth Once per day. 90 tablet 3 025 2025 Active insulin degludec (Tresiba FlexTouch) 100 UNIT/ML injectionIndica tions:Type 2 diabetes mellitus with hyperglycemia, with long-term current use of insulin ([facility]) INJECT 14 UNITS SUBCUTANEOUSLY AT BEDTIME 15 mL 5 Active insulin lispro (HumaLOG) 100 UNIT/ML injectionIndica tions:Type 2 diabetes mellitus with hyperglycemia, with long-term current use of insulin ([facility]) Inject 20 Units under the skin with breakfast, with lunch, and with evening meal. 15 mL 5 025 Active meloxicam (Mobic) 7.5 MG tablet Take 1 tablet (7.5 mg) by mouth 2 times daily. 60 tablet 11 025 2025 Active lisinopril 40 MG tablet TAKE 1 TABLET BY MOUTH DAILY. CALL A LA OFICINA PARA ARELI 023 2024 Discontinued(D ose adjustment) cholecalciferol (Vitamin D-3) 50 MCG (1999) tabletIndicatio ns:Routine health maintenance TAKE 1 TABLET BY MOUTH EVERY EVENING 90 tablet 3 024 2024 Discontinued Jardiance 25 MG TAKE 1 TABLET BY MOUTH EVERY MORNING 30 tablet 5 024 2024 Discontinued insulin degludec (Tresiba FlexTouch) 100 UNIT/ML injectionIndica tions:Type 2 diabetes mellitus with hyperglycemia, with long-term current use of insulin ([facility]) INJECT 50 UNITS SUBCUTANEOUSLY AT BEDTIME 15 mL 6 024 2024 Discontinued(R eorder (will not trigger notification to Pharmacy)) tadalafil (Cialis) 20 MG tablet TAKE 1 TABLET BY MOUTH 30 MINUTES BEFORE SEXUAL ACTIVITY NEEDED. DO NOT USE MORE THAN 1 TABLET DAILY 2024 Discontinued(D ose adjustment) insulin lispro (HumaLOG) 100 UNIT/ML injectionIndica tions:Type 2 diabetes mellitus with hyperglycemia, with long-term current use of insulin ([facility]) Inject 20-25 Units under the skin with [...] & Plan (06/13/2024 11:47 AM EST): 04[place] [facility] [place] BROWNE. EMG with impression of bilateral [...] thumb bilateral. Referral to Ortho placed. 02/12/24: [facility] PAVAN Rivas. Eval bilat hand pain, numbness, tingling x 1 year. Referred for EMG and nerve conduction study to test nerves of BUE. Cont to monitor left ring finger to see if locking and catching. Non-recurrent unilateral ing uinal hernia without obstruction or gangrene 04/13/2024 Overview (04/13/2024): Left inguinal hernia repair completed in Fall [address] Glass [place] [facility] Umbilical hernia without obstruction and without gangrene 04/13/2024 Overview (04/13/2024): Following with [facility] [place] - Dr. Glass Consult note in Mar 2024 with plan for surgery small periumbilical hernia Reviewed ED precautions Assessment & Plan (04/13/2024 5:17 PM EDT): Speciality clearance for surgery in process Arthralgia of left temporomandibular joint 02/03 Microhematuria 11/30/2023 Overview (04/13/2024): Followed by [facility] - WILL Harris Cytology (2022): benign [...] eating Call to schedule follow up with [facility] CDTM team Last eye exam: [...] (08/12/2024 10:06 AM EST): -Previously following with [facility], although transferring to [facility]. -MELD score 8 -Previously completing paracentesis [...] Plan (06/13/2024 11:54 AM EST): -Following with [facility] Lisa Garcia (last consult note 04/28/24) -MELD score [...] Plan (04/13/2024 5:00 PM EDT): -Following with [facility] Lisa Garcia (last consult note 09/14/23) -MELD score [...] Plan (11/30/2023 11:37 AM EDT): -Following with [facility] Lisa Garcia -MELD score 8 -Undergoing paracentesis for ascites PRN -Reviewed basic education and lifestyle interventions important for diagnosis of cirrhosis Medications through GI: Eplerenone 50mg daily DC spironolactone (Jun 2023 d/t gynecomastia) Furosemide 20mg daily Rifaximin Following with GI: screening endoscopy, return precautions paracentesis, HCC screening Q6mo (AFP, abd US) Assessment & Plan (06/23/2023 1:58 PM EST): -Following with [facility] LINDA Garcia -Undergoing paracentesis for ascites, next currently [...] Plan (03/30/2023 8:49 PM EDT): -Following with [facility] - Dr. Garcia -Reports currently scheduled Q2 weeks for paracentesis -Upcoming paracentesis scheduled week of 04/01/23, with plan for f/u with GI week of 04/08/23 -Reviewed basic education and lifestyle interventions important for diagnosis of cirrhosis Medications through GI: ?? Spironolactone 50mg daily ?? Furosemide 20mg daily Assessment & Plan (02/13/2023 5:57 PM EDT): - followed by Dr. Garcia [facility], last seen in December 2022 - urgent follow-up recommended; we will try calling Biliary acute pancreatitis 09/28/2022 Erosive esophagitis 10/04/2021 Renal stone 09/29/2020 Hypertensive disorder 04/08/2015 Assessment & Plan (06/13/2024 11:57 AM EST): Following with [facility] (Dr. Deshpande) & [facility] [place] (Dr. Feliciano) Stress test from 2022. [...] Plan (04/13/2024 5:14 PM EDT): Following with [facility] (Dr. Deshpande) & [facility] (Dr. Feliciano) Stress test from 2022. Able to exercise 9.2 mets and reached target HR w/o signs of angina. Echo with LVEF 55-60%. Mild aortic stenosis. Lipids: Zetia, Praluent (PCSK9i) Medications: - Continues with lisinopril 10mg daily - Cont furosemide 20-40mg daily (dose adjustments primarily through Nephrology d/t hx hyponatremia and edema) Assessment & Plan (11/30/2023 11:49 AM EDT): Following with [facility] [place] - Dr. Feliciano. Stress test from [...] - Cause/origin likely multifactorial - Following with [facility] - CHANNEL SALES DIRECTOR Harris - Cont Cialis 5mg daily and [...] Encounters Date Type Department Care Team Description 09/05/2024 9:20 AM EST Office Visit [facility] [address] [place] [phone] Jeannette Griffin MD Rib pain on right side (Primary Dx) 08/28/2024 Telephone [facility] [address] [place] [address] Elida Gutierrez RN Results 08/18/2024 Travel 08/14/2024 Refill [facility] [address] [place] [phone] Flora Santiago FNP Routine health maintenance 08/13/[address] [address] Flora Santiago FNP Care Coordination: [facility] 08/13/2024 Orders Only GENERIC EXTERNAL DATA DEPARTMENT Provider, Generic External Data 08/11/2024 11:30 AM EST Telemedicine [facility] [address] [place] [address] Flora Santiago FNP Liver lesion (Primary Dx); Primary hypertension; Cirrhosis of liver with ascites, unspecified hepatic cirrhosis type (CMS/HCC) (CMS/HCC) 08/11/2024 Travel 08/08/2024 Refill [facility] [address] [place] [address] Flora Santiago FNP 08/07/[address] [address] Owen Hughes MA Chart Prep 07/21/2024 Telephone [facility] [address] [place] [address] Flora Santiago FNP ED Visit 07/21/2024 Telephone [facility] [address] [place] [address] Flora Santiago FNP ER Follow-up 07/17/2024 Orders Only GENERIC EXTERNAL DATA DEPARTMENT Provider, Generic External Data 07/02/2024 Refill [facility] [address] [place] [address] Flora Santiago FNP 06/16/2024 Telephone [place] [facility] [address] [place] [address] Flora Santiago FNP 06/13/2024 8:45 AM EST Office Visit [facility] [address] [place] [address] Flora Santiago FNP Type 2 diabetes mellitus with hyperglycemia, with long-term current use of insulin (CMS/HCC) (Primary Dx); Chronic left shoulder pain; Bilateral carpal tunnel syndrome; Cirrhosis of liver with ascites, unspecified hepatic cirrhosis type (CMS/HCC) (CMS/HCC); Primary hypertension 06/13/2024 Telephone [facility] [address] [place] [address] Flora Santiago FNP Lab Orders 06/13/2024 Patient Outreach [facility] [address] [place] [address] Flora Santiago FNP Care Coordination ([facility] outreach for [facility] utilities & housing search-referral completed ) 06/13/2024 Travel 06/12/2024 Telephone [facility] [address] [place] [address] Owen Hughes MA Chart Prep 06/11/2024 Orders Only [facility] [address] [place] [phone] Divya Amos MD Type 2 diabetes mellitus with hyperglycemia, with long-term current use of insulin (CMS/HCC) (Primary Dx) 06/11/2024 Telephone [facility] [address] [place] [address] Divya Amos MD 06/11/2024 Refill [facility] [address] [place] [address] Kenya Herrmann MD Type 2 diabetes mellitus with hyperglycemia, with long-term current use of insulin (CMS/HCC) (Primary Dx) 06/08/2024 Refill [facility] [address] [place] [address] Flora Santiago FNP Type 2 diabetes mellitus with hyperglycemia, with long-term current use of insulin ([facility]) (Primary Dx) 06/06/2024 Orders Only GENERIC EXTERNAL [...] Sign Reading Time Taken Comments Blood Pressure 130/75 09/05/2024 9:06 AM EST Pulse 71 09/05/2024 9:06 AM EST Temperature 36.4 ??C (97.6 ??F) 09/05/2024 9:06 AM ES T Respiratory Rate 20 09/05/2024 9:06 AM EST Oxygen Saturation 95% 09/05/2024 9:06 AM EST Inhaled Oxygen Concentration - - Weight 87.5 kg (193 lb) 09/05/2024 9:06 AM EST Height 172.7 cm (5' 8 ) 09/05/2024 9:06 AM EST Body Mass Index 29.35 09/05/2024 9:06 AM EST Plan of Treatment Upcoming Encounters Date Type Department Care Team (Late st Contact Info) Description 09/08/2024 9:30 AM EST Medication Management [facility] [address] [place] [address] Kandi Panda, PharmD [address] [place] [address] 12/24/2024 8:00 AM EDT Office Visit [facility] [address] [place] [address] Angelica Saenz [address] [place] [address] Health Maintenance Due Date Last Done Comments CT Colonography 1965 FIT DNA/Cologuard 1965 FIT 1965 FOBT 1965 Sigmoidoscopy 1965 Diabetes: Foot Exam 1975 Eye Exam 1975 Hepatitis B Vaccines (2 of 2 - CpG 2-dose series) 07/19/2023 06/21/2023 Dental Oral Exam 02/15/2024 08/16/2023, 02/2021, 01/24/2019 Dental X-Ray: Bitewings 07/12/2024 07/11/19, 12/20/2022, 01/13/2021, Additional history exists Dental Prophylaxis [...] 2040 Hepatitis A Vaccines Completed 08/31/2004, 02/29/20 04 HIV Screening Completed 07/18/2021 Zoster Vaccines Completed [...] topic Meningococcal Vaccine Aged Out No veda london eligible based on patient's age to complete [...] Procedure Name Priority Date/Time Associated Diagnosis Comments XR CHEST 2 VIEWS Routine 09/05/2024 9:25 AM EST Rib pain on right side IMMUNOFIXATION, SERUM Routine 08/13/2024 11:49 AM EST [...] URINALYSIS, COMPLETE Routine 06/06/2024 8:20 AM EST HEPATITIS PANEL, GENERAL Routine 04/29/2024 12:37 PM EDT LIPID PANEL, STANDARD Routine 03/28/2024 8:52 AM EDT PROPHYLAXIS - ADULT Routine 02/04/2024 8 :00 AM EDT Periodontal disease Dental calculus CREATININE, RANDOM URINE Routine 10/31/2023 12:00 PM EDT PANORAMIC RADIOGRAPHIC IMAGE Routine 08/16/2023 9:00 AM EST PERIODIC ORAL EVALUATION - ESTABLISHED PATIENT Routine 08/16/2023 9:00 AM EST INTRAORAL - COMPLETE SERIES OF RADIOGRAPHIC IMAGES Routine 07/11/2023 10:00 AM EST HIV 1/2 ANTIGEN/ANTIBODY, FOURTH GENERATION W/RFL Routine 07/18/2021 9:07 AM EST HM COLONOSCOPY Routine 03/17/2021 from Last 3 Months or Most Recently Relevant to Health Maintenance Results * XR Chest 2 Views (09/05/2024 9:25 AM EST) Only the most recent of2 resultswithin the time period is included. Anatomical Region Laterality Modality Chest Radiographic Kandace ging 09/05/2024 9:25 AM EST Narrative 09/05/2024 9:44 AM EST ?[facility] ?[address] ?[place] [address] ?XRay Report ? Signed ? Patient: Stanley,Steven ?MR#: [id number] ?? 2 ? : 1965 ?Acct:[id number] ? Age/Sex: 59 / M ?ADM Date: 02/28/25 ? Loc: HO.HHCX ? Attending Dr: Jeannette Griffin MD ? Ordering Physician: Jeannette Griffin MD ?? Date of Service: 09/05/24 ?? Procedure(s): XR chest 2V ?? Accession Number(s): [id number] ? cc: Jeannette Griffin MD ? EXAMINATION: ?? XR CHEST ? CLINICAL INFORMATION: ?? rib pain /Fracture; fall with right anterior rib pain. ? COMPARISON: ?? 07/17/2024. ? TECHNIQUE: ?? 2 views of the chest were obtained. ? FINDINGS: ?? The cardiac, hilar, and mediastinal contours are normal. ? The lungs are clear bilaterally. There is no pneumothorax or pleural ?? effusion. ? There is no focal soft tissue abnormality. ?? No acute displaced rib fracture. Old healed seventh rib fracture on the ?? left ? XR/XR chest 2V ?? IMPRESSION: ?? No active pulmonary disease. ?? No definite displaced acute rib fracture seen. ? Electronically signed by: ??Billy Mcneill MD ??09/05/2024 09:41 AM EST RP ? Dictated By: ?Billy Mcneill MD ? Signed By: ?<Electronically signed by Billy Mcneill MD in OV> ?09/05/24 0941 ? DD/ 4 ? TD/TT: 09/05/24934 ? Supervisor Finishing Room: ? Procedure Note Pina, Image - 09/05/2024 [place] [address] XRay Report Signed Patient: Robin Stanley#: [id number] 2 : 1965Acct:[id number] Age/Sex: 59 / MADM Date: 09/05/24 Loc: HO.HHCX Attending Dr: Jeannette Griffin MD Ordering Physician: Jeannette Griffin MD Date of Service: 09/05/24 Procedure(s): XR chest 2V Accession Number(s): [id number] cc: Jeannette Griffin MD EXAMINATION: XR CHEST CLINICAL INFORMATION: rib pain /Fracture; fall with right anterior rib pain. COMPARISON: 07/17/2024. TECHNIQUE: 2 views of the chest were obtained. FINDINGS: The cardiac, hilar, and mediastinal contours are normal. The lungs are clear bilaterally. There is no pneumothorax or pleural effusion. There is no focal soft tissue abnormality. No acute displaced rib fracture. Old healed seventh rib fracture on the left XR/XR chest 2V IMPRESSION: No active pulmonary disease. No definite displaced acute rib fracture seen. Electronically signed by: Billy Mcneill MD 09/05/2024 09:41 AM EST Dictated By: Billy Mcneill MD Signed By: <Electronically signed by Billy Mcneill MD in OV> 09/05/24940 DD/ 4 TD/TT: 09/05/24934 Supervisor Finishing Room: Jeannette Griffin MD IMG XR PROCEDURES Final Result * (ABNORMAL) CBC auto differential (08/13/2024 11:49 AM EST) Only the most recent of2 resultswithin the time period is included. White Blood Count 11.4(H) 4.8 - 10.8 X10*3/uL [facility] Red Blood Count 5.21 4.60 - 5.80 X10*6/uL [facility] Hemoglobin 14.0 14.0 - 18.0 g/dl [facility] Hematocrit 42.3 42.0 - 52.0 % [facility] Mean Corpuscular Volume 81.2 80.0 - 98.0 fL [facility] Mean Corpuscular Hemoglobin 26.9(L) 27.0 - 33.0 pg [facility] Mean Corpuscular HGB Conc 33.1 31.0 - 36.0 g/dl [facility] Red Cell Distribution Width 13.9 11.0 - 16.0 % [facility] Platelet Count 212 160 - 400 X10*3/uL [facility] Mean Platelet Volume 10.2 9.4 - 12.4 fL [facility] Neutrophils Percent Auto 78.4(H) 45 - 73 % [facility] Imm Gran Pct Auto 0.4 0.0 - 0.4 % [facility] Lymphocytes Percent Auto 11.1(L) 20 - 40 % [facility] Monocytes Percent Auto 9.2 2 - 11 % [facility] Eosinophils Percent Auto 0.5 0 - 4 % [facility] Basophils Percent Auto 0.4 0 - 2 % [facility] NRBC Pct Auto 0.0 0.0 - 0.2 /100WBC [facility] Neutrophils Absolute Auto 8.9(H) 2.0 - 8.3 x10*3/uL [facility] Imm Gran Abs Auto 0.04(H) 0.00 - 0.03 X10*3/uL [facility] Lymphocytes Absolute Auto 1.3 1.2 - 4.9 X10*3/uL [facility] Monocytes Absolute Auto 1.0 0.1 - 1.2 X10*3/uL [facility] Eosinophils Absolute Auto 0.1 0.0 - 0.4 X10*3/uL [facility] Basophils Absolute Auto 0.0 0.0 - 0.2 X10*3/uL [facility] NRBC Abs Auto 0.000 0.0 - 0.012 X10*3/uL [facility] Blood Venous blood specimen / Unknown 08/13/2024 11:49 AM EST 08/13/2024 11:49 AM EST us Flora Santiago PROGRAMMING EQUIPMENT OPERATOR LAB BLOOD ORDERABLES Final Res ult [facility] [address] [place] [phone] * Alpha-Fetoprotein, Tumor Marker (08/13/2024 11:49 AM EST) Alpha Fetoprotein 2.7 <6.1 ng/mL [facility] Comment:This test was perfor med using the Aida Coulterchemiluminescent method. Values obtained fromdifferent assay methods cannot be usedinterchangeably. AFP levels, regardless ofvalue, should not be interpreted as absoluteevidence of the presence or absence of disease.THIS TEST WAS PERFORMED AT:[address] [place] [phone] GARCIA MD Blood Venous blood specimen / Unknown 08/13/2024 11:49 AM EST 08/13/2024 11:49 AM EST us Flora Santiago PROGRAMMING EQUIPMENT OPERATOR LAB BLOOD ORDERABLES Final Res ult Performing Organization Address [facility] Co de Phone Number [facility] [address] [place] [address] [phone] * (ABNORMAL) Immunofixation, Serum (08/13/2024 11:49 AM EST) IMMUNOGLOBULIN G 1318 600 - 1640 mg/dL [facility] IMMUNOGLOBULIN A 1062(A) 47 - 310 mg/dL [facility] Comment:Verified by repeat a nalysis. Immunoglobulin M 195 50 - 300 mg/dL [facility] Comment:THIS TEST WAS PERFOR MED AT:[address] [place] [phone] GARCIA MD Immunofixation Result SEE NOTE [facility] Comment:No monoclonal protei ns detected. 08/13/2024 11:4 9 AM EST 08/13/2024 11:49 AM EST us Generic External Data Provider LAB BLOOD ORDERAB LES Final Result Performing Organization Address [facility] de Phone Number [facility] [address] [place] [address] [phone] * (ABNORMAL) Hepatic Function Panel (08/13/2024 11:49 AM EST) Only the most recent of2 resultswithin the time period is included. Bilirubin, Total 1.2(H) 0.0 - 1.0 mg/dL [facility] Bilirubin, Direct 0.5 0.0 - 0.5 mg/dL [facility] Aspartate Amino Transferase 32 5 - 37 U/L [facility] Alanine Aminotransferase 19 0 - 40 U/L [facility] Total Protein 9.1(H) 6.5 - 8.0 g/dL [facility] Albumin Level 4.4 3.5 - 5.0 g/dL [facility] Alkaline Phosphatase 167(H) 39 - 117 U/L [facility] Blood Venous blood specimen / Unknown 08/13/2024 11:49 AM EST 08/13/2024 11:49 AM EST us Flora Santiago PROGRAMMING EQUIPMENT OPERATOR LAB BLOOD ORDERABLES Final Res ult Performing Organization Address City/[facility]/ZIP Co de Phone Number [facility] [address] [place] [phone] * (ABNORMAL) Basic Metabolic Panel (08/13/2024 11:49 AM EST) Only the most recent of3 resultswithin the time period is included. Sodium 133(L) 135 - 145 mmol/L [facility] Potassium 4.9 3.3 - 5.1 mmol/L [facility] Chloride 98 96 - 108 mmol/L [facility] Carbon Dioxide 23 22 - 29 mmol/L [facility] Anion Gap 17 12 - 20 [facility] Urea Nitrogen (BUN) 17(H) 9 - 16 mg/dL [facility] Creatinine, Serum 1.10 0.5 - 1.4 mg/dL [facility] Estimated Glomerular Filt Rate >60 [facility] Comment:Chronic Kidney Disea se: Estimated GFR < 60 mL/min/1.39r1Ayzncp Kidney Disease: Estimated GFR < 15 mL/min/1.73m2 Glucose 296(H) 60 - 115 mg/dL [facility] Calcium 9.8 8.4 - 10.2 mg/dL [facility] 08/13/2024 11:4 9 AM EST 08/13/2024 11:49 AM EST us Generic External Data Provider LAB BLOOD ORDERAB LES Final Result Performing Organization Address [facility]/ZIP Co de Phone Number [facility] [address] [place] [phone] * (ABNORMAL) Urinalysis Complete (08/13/2024 11:43 AM EST) Only the most recent of2 resultswithin the time period is included. Color Urine Yellow [facility] Appearance Urine Clear [facility] PH 5.5 5.0 - 9.0 [facility] Glucose Urine UA >=1000(A) Negative mg/dL [facility] Urine Blood Moderate (2+)(A) Negative [facility] Specific [place] - Urine 1.025 1.005 - 1.025 [facility] Urine Protein Trace Neg-Trace mg/dL [facility] Urine Ketones Negative Negative mg/dL [facility] Nitrite Urine Negative Negative [facility] Leukocyte Esterase Urine Negative Negative [facility] RBC Urine 6-10(A) 0 - 2 /HPF [facility] Urine WBC 0-5 0 - 5 /HPF [facility] Urine Squamous Epithelial Cell 0-2 0 - 2 /HPF [facility] Urine Bacteria None Seen None Seen [facility] Hyaline Casts, Urine 0-2 0 - 2 /LPF [facility] 08/13/2024 11:4 3 AM EST 08/13/2024 12:35 PM EST us Generic External Data Provider LAB URINE ORDERAB LES Final Result Performing Organization Address [facility]/State/[facility] Co de Phone Number [facility] [address] [place] [phone] * CTA Chest PE Protocal (07/17/2024 6:38 PM EST) Anatomical Region Laterality Modality Body, Chest Computed Tomogra phy 07/17/2024 6:38 PM EST Narrative 07/17/2024 6:41 PM EST ? [facility] ?[address] ?[place] [address] ? CT Scan Report ? Signed with Addenda ? Patient: Stanley,Steven ?MR#: [id number] ?? 2 ? : 1965 ?Acct:[id number] ? Age/Sex: 59 / M ?ADM Date: 07/17/24 ? Loc: HO.ED ? Attending Dr: ? Ordering Physician: Oswaldo Villareal ?? Date of Service: 07/17/24 ?? Procedure(s): CT angio chest PE protocol ?? Accession Number(s): [id number] ? cc: Oswaldo Villareal; Flora Santiago PROGRAMMING EQUIPMENT OPERATOR ? Report Number: ?? [id number]: Total DLP = ??293.00 mGy-cm ?ADDENDUM ?? [...] DD/ 1838 ? TD/TT: 07/17/24 1838 ? Supervisor Finishing Room: ? Procedure Note Donotuseinterpreter, Image - 07/17/[address] [address] [address] Scan Report Signed with Wendy Patient: Robin Stanley#: [id number] 2 : 1965Acct:[id number] Age/Sex: 59 / MADM Date: 07/17/24 Loc: HO.ED Attending Dr: Ordering Physician: Oswaldo Villareal Date of Service: 07/17/24 Procedure(s): CT angio chest PE protocol Accession Number(s): [id number] cc: Oswaldo Villareal; Flora Santiago [facility] Report Number: [id number]: Total DLP = 293.00 mGy-cm ADDENDUM This [...] in OV> 07/17/241839 DD/ 37 TD/TT: 07/17/241837 Supervisor Finishing Room: [facility] External Provider IMG CT PROCEDURES Edited Result - Final * D Dimer High Sensitivity (07/17/2024 5:20 PM EST) D Dimer High Sensitivity 284 NG/ML [facility] Comment:D-DIMER HS REFERENCE RANGENote: Our assay [...] Provider LAB BLOOD ORDERAB LES Final Result [facility] [address] [place] [phone] * (ABNORMAL) High Sensitivity Troponin I (07/17/2024 1:19 PM EST) Only the most recent of2 resultswithin the time period is included. TROPONIN I HIGH SENSITIVITY 44.5(H) <3.5 - 35.0 ng/L [facility] Comment:The [place] high sens itivity Troponin-I results should beused in conjunction with other diagnostic information suchas ECG, clinical observations and information, and patientsymptoms to aid in the diagnosis of IA. 07/17/2024 1:19 PM EST 07/17/2024 1:22 PM EST Generic External Data Provider LAB BLOOD ORDERAB LES Final Result Performing Organization Address [facility] de Phone Number [facility] [address] [place] [phone] * SARS-CoV-2 RNA, Influenza A/B, and RSV RNA, Ql NAAT (07/17/2024 10:12 AM EST) Influenza A PCR NEGATIVE Negative [facility] Influenza B PCR NEGATIVE Negative [facility] Resp Syncy Virus RNA Qual PCR NEGATIVE Negative [facility] SARS COV2 PCR NEGATIVE Negative [facility] Comment:All test results mus t [...] use by authorized laboratories.Testing performed on the Lumen[employer] GeneXpert utilizingreal-time RT-PCR.All SARS CoV2 and positive influenza A/B results arereported to [facility]. 07/17/2024 10:1 2 AM EST 07/17/2024 10:16 AM EST Generic External Data Provider LAB MICROBIOLOGY - GENERAL ORDERABLES Final Result Performing Organization Address [facility] Co de Phone Number [facility] [address] [place] [phone] * B Type Natriuretic Peptide (BNP) (07/17/2024 10:12 AM EST) B Type Natriuretic Peptide 89 <100 pg/mL [facility] Comment:For those patients w ho are being treated with Natrecor(nesiritide, recombinant BNP), BNP testing should beperformed at least two hours post treatment in order toensure that only endogenous levels of BNP are detected. 07/17/2024 10:1 2 AM EST 07/17/2024 10:16 AM EST us Generic External Data Provider LAB BLOOD ORDERAB LES Final Result Performing Organization Address [facility] Phone Number [facility] [address] [place] [phone] * (ABNORMAL) Magnesium (07/17/2024 10:12 AM EST) Magnesium 1.5(L) 1.6 - 2.6 mg/dL [facility] 07/17/2024 10:1 2 AM EST 07/17/2024 10:16 AM EST us Generic External Data Provider LAB BLOOD ORDERAB LES Final Result Performing Organization Address [facility] Phone Number [facility] [address] [place] [address] [phone] * Lipase (07/17/2024 10:12 AM EST) Lipase 52 8 - 78 U/L [facility] 07/17/2024 10:1 2 AM EST 07/17/2024 10:16 AM EST us Generic External Data Provider LAB BLOOD ORDERAB LES Final Result Performing Organization Address [facility] Phone Number [facility] [address] [place] [address] [phone] * ECG 12 lead (06/13/2024 1:21 PM EST) Flora Murray FNP - 06/13/2024 1:21 PM EST Pr: 98/150 ms QRS: 92ms QT/Qtc: 382/480 ms HR: 95 bpm NSR. Non-specific T-wave inversion in lead V6. us Flora Phalen PROGRAMMING EQUIPMENT OPERATOR ECG ORDERABLES Final Result * (ABNORMAL) POCT HGB A1C (06/13/2024 9:20 AM EST) Hemoglobin A1C 7.6(A) 4.0 - 6.0 % QC Media Lot # [id number] Lot# Expiration Date 812,026 Blood 06/13/2024 9:20 AM EST Flora Phalen PROGRAMMING EQUIPMENT OPERATOR POINT OF CARE TEST ENTER/EDIT ORDERABLES Final Result * (ABNORMAL) POCT Glucose (06/13/2024 9:20 AM EST) Glucose Blood, POC 328 60 - 200 mg/dL Comment:Random QC Media Lot # [id number] Lot# Expiration Date 482,[id number] Blood Capillary blood specimen / Unknown 06/13/2024 9:20 AM EST Flora Phalen PROGRAMMING EQUIPMENT OPERATOR POINT OF CARE TEST ENTER/EDIT ORDERABLES Final Result * Hepatitis Panel, General (04/29/2024 12:37 PM EDT) Hepatitis A IgM Nonreactive Nonreactive [facility] Comment:IgM antibodies to RITCHIE V not detected; does not exclude earlyacute or recovered HAV infection. ~Hepatitis B Surface Antibody REACTIVE Nonreactive [facility] Comment:REACTIVE: > 11.99 mI U/mL Hepatitis B Core Antibody Nonreactive Nonreactive [facility] Hepatitis C Antibody GRAYZONE Nonreactive [facility] Comment:Antibodies to HCV ma y or may not be present. Suggest repeatanti-HCV in 4-6 weeks and/or HCV viral load if clinicallyindicated. Hepatitis B Surface Ag Negative Negative [facility] 04/29/2024 12:3 7 PM EDT 04/29/2024 12:39 PM EDT us Generic External Data Provider LAB BLOOD ORDERAB LES Final Result [facility] [address] [place] [address] [phone] * Lipid Panel, Standard (03/28/2024 8:52 AM EDT) Triglycerides 90 <150 mg/dL [facility] Comment:Desirable Triglyceri de: less than 150 mg/dLBorderline High Triglyceride 150-199 mg/dLHigh Triglyceride: 200-499 mg/dLVery High Triglyceride: greater than or equal to 5OO mg/dL Cholesterol 187 <200 mg/dL [facility] Comment:Desirable Cholestero l: less than 200 mg/dLBorderline High Cholesterol: 200-239 mg/dLHigh Cholesterol: greater than 239 mg/dL LDL Cholesterol Calculated 64 <100 mg/dL [facility] Comment:Desirable LDL: less than 100 mg/dLNear Optimal/Above Optimal LDL: 110- 129 mg/dLBorderline High LDL: 130-159 mg/dLHigh LDL: 160-189 mg/dLVery High LDL: greater than or equal to 190 mg/dL HDL Cholesterol 105 >40 mg/dL [facility] Comment:Desirable HDL: great er than 40 mg/dL Note: This HDL assay may give artificially low results in patients with liver disease. 03/28/2024 8:52 AM EDT 03/28/2024 8:52 AM EDT us Generic External Data Provider LAB BLOOD ORDERAB LES Final Result Performing Organization Address [facility] Co de Phone Number [facility] [address] [place] [address] [phone] * Creatinine, Random Urine (10/31/2023 12:00 PM EDT) Creatinine, Urine 70.00 mg/dL [facility] 10/31/2023 12:0 0 PM EDT 10/31/2023 12:52 PM EDT us Generic External Data Provider LAB URINE ORDERAB LES Final Result Performing Organization Address [facility] Co de Phone Number [facility] [address] [place] [phone] * HIV 1/2 ANTIGEN/ANTIBODY,FOURTH GENERATION W/RFL (07/18/2021 9:07 AM EST) Pathologist [facility] HIV-1/2 ANTIGEN AND ANTIBODIES, 4TH GENERATION W/ REFLEX NON-REACT NASEEM NON-REACT NASEEM [facility] Comment: HIV-1 antigen and HIV-1/HIV-2 [...] ? For additional information please refer to http://[employer].TrueView/faq/XNC329 (This link is being provided for informational/ educational purposes only.) ? The performance of this assay has not been clinically validated in patients less than 2 years old. ?? 07/18/2021 9:07 AM EST Flora Santiago [facility] LAB BLOOD ORDERABLES Final Res ult [facility] Anywhere [address] * Colonoscopy (03/17/2021) [facility] Colonoscopy Normal Normal Narrative SeraRobson[facility] - 03/17/2021 Repeat in 5 years tubular adenoma Historical Provider MD HEALTH MAINTENANCE Final Result from Last 3 Months or Most Recently Relevant to Health Maintenance [facility] C3 DENTAL-[facility] MEDICAID STAND ADULT GENERIC OTHER Care Teams Brands Editor Relationship Specialty Start Date End Date Flora Santiago FNP [address] [place] [address] PCP - General Family Medicine 05/02/21 Sherin Hall, RN [address] [place] [address] Plate Inspector Family Medicine 07/30/23 Juan Jose Deshpande MD [address] [place], [place] Nephrology 06/13/24 Michael Glass MD [address] [place] [address] Dr 3rd Floor [place], [place] General Surgery 06/13/24 Demetrius Austin MD [address] [place], [place] Orthopaedic Surgery 06/13/24 Harry Garcia MD [address] 3rd [place] [address] Gastroenterology 06/13/24 Jovany Feliciano MD [address] [place] [address] Cardiology 06/13/24 Kandi Panda PharmD [address] [place] [address] Pharmacist Internal Medicine 08/18/24 Angelica Saenz [address] [place] [address] Dental Hygienist Dental Customs Entry Clerk 08/20/24 Mao Palomino DDS [address] [place] [address] Dentist Dental Customs Entry Clerk 08/20/24
--- OUTSIDE RECORDS SUMMARY | 2024-09-05 10:07 | XMS_ITS | Encounter Summary ---
Author Organization [employer] Address [address] [facility] 7t [place] [address] Care Team Providers Care Contract Admin Name Role Phone Flora Santiago Primary Care Provider [phone] Sherin Hall RN Unavailable [phone] Juan Jose Deshpande MD Unavailable [phone] Michael Glass MD Unavailable [phone] Demetrius Austin MD Unavailable Harry Garcia MD Unavailable [phone] Jovany Feliciano MD Unavailable [phone] Reason for Visit * Reason Comments Med Refill Encounter Details Date Type Department Care Team (Late st Contact Info) Description 08/14/2024 Refill [facility] MEDICINE [address] [place] [address] Flora Santiago FNP [address] [place] [address] Routine health maintenance Social History Tobacco Use [...] Description 09/08/2024 9:30 AM EST Medication Management [facility] MEDICINE [address] [place] [address] Kandi Panda PharmD [address] [place] [address] 12/24/2024 8:00 AM EDT Office Visit [facility] ADULT DENTAL [address] [place] [address] Angelica Saenz [address] [place] [address] documented as of this encounter Goals Goal Patient Goal Type Associated Problems Recent Progress Patient-Stated? Author Blood Pressure < 140/90 Blood Pressure 130/75(2024 9:06 AM EST) No Jose Maria Novak Hemoglobin A1c < 7 Result Component 7.6( 4 9:20 AM EST) No Jose Maria Novak documented as of this encounter Visit Diagnoses Diagnosis Routine health maintenance Unspecified examination documented in this encounter Additional Health Concerns Assessment Noted Time PHQ-9 Depression Total Score: 0 11/30/19 11:07 AM EDT documented as of this encounter Care Teams Contract Admin Relationship Specialty Start Date End Date Flora Santiago FNP [address] [place] [address] PCP - General Family Medicine 05/02/21 Sherin Hall, RN [address] [place] [address] [employer] Global Product Leadership Family Medicine 07/30/23 Juan Jose Deshpande MD [address] [place] [address] Nephrology 06/13/24 Michael Glass MD [address] [place] [address] [address] [place] [address] General Surgery 06/13/24 Demetrius Austin MD [address] [place] [address] [address] [place] [address] Orthopaedic Surgery 06/13/24 Harry Garcia MD [address] [place] [address] Gastroenterology 06/13/24 Jovany Feliciano MD [address] [place] [address] Cardiology 06/13/24 documented as of this encounter
--- OUTSIDE RECORDS SUMMARY | 2024-09-05 10:07 | XMS_ITS | Encounter Summary ---
Author Organization [employer] Address [address] [facility] 7t [place] [address] Care Team Providers Care Cemetery Vault Installer Name Role Phone VaneFlora mina INTELLIGENCE CLERK Primary Care Provider [phone] Sherin Hall RN Unavailable [phone] Juan Jose Deshpande MD Unavailable [phone] Michael Glass MD Unavailable [phone] Demetrius Austin MD Unavailable Harry Garcai MD Unavailable [phone] Jovany Feliciano MD Unavailable [phone] Kandi Panda PharmD Unavailable [phone] Encounter Details Date Type Department Care Team [...] 9:30 AM EST Medication Management [facility] MEDICINE [address] [place] [address] Kandi Panda, PharmD [address] [place] [address] 12/24/2024 8:00 AM EDT Office Visit [facility] ADULT DENTAL [address] [place] [address] Dallin Saenzaris [address] [place] [address] documented as of this encounter Goals Goal [...] documented as of this encounter Care Teams Cemetery Vault Installer Relationship Specialty Start Date End Date Flora Santiago FNP [address] [place] [address] PCP - General Family Medicine 05/02/21 Sherin Hall, RN [address] [place] [address] Pals Nurse Family Medicine 07/30/23 Juan Jose Deshpande MD [address] [place] [address] Nephrology 06/13/24 Michael Glass MD [address] [place] [address] [address] [place] [address] General Surgery 06/13/24 Demetrius Austin MD [address] [place] [address] Orthopaedic Surgery 06/13/24 Harry Garcia MD [address] [place] [address] Gastroenterology 06/13/24 Jovany Feliciano MD [address] [place] [address] Cardiology 06/13/24 Kandi Panda PharmD [address] [place] [address] Pharmacist Internal Medicine 08/18/24 documented as of this encounter
--- OUTSIDE RECORDS SUMMARY | 2024-09-05 10:07 | XMS_ITS | Encounter Summary ---
Author Organization [employer] Address [address] [facility] 7t [place] [address] Care Team Providers Care Museum Assistant Name Role Phone Flora Santiago Primary Care Provider [phone] Sherin Hall RN Unavailable [phone] Juan Jose Deshpande MD Unavailable [phone] Michael Glass MD Unavailable Demetrius Austin MD Unavailable Harry Garcia MD Unavailable [phone] Jovany Feliciano MD Unavailable Reason for Visit * Reason Comments Med Refill Encounter Details Date Type Department Care Team (Late st Contact Info) Description 08/08/[address] [facility] MEDICINE [address] [place] [address] Flora Santiago FNP [address] [place], [place] [phone] Social History Tobacco Use Types Packs/Day Years [...] Description 09/08/2024 9:30 AM EST Medication Management [facility] MEDICINE [address] [place] [address] Kandi Panda, RobertD [address] [place] [address] 12/24/2024 8:00 AM EDT Office Visit [facility] ADULT DENTAL [address] [place] [address] Angelica Saenz [address] [place] [address] documented as of this encounter Goals Goal [...] documented as of this encounter Care Teams Museum Assistant Relationship Specialty Start Date End Date Flora Santiago FNP [address] [place] [address] PCP - General Family Medicine 05/02/21 Sherin Hall, RN [address] [place] [address] Ticket Writer Family Medicine 07/30/23 Juan Jose Deshpande MD [address] [place] [address] Nephrology 06/13/24 Michael Glass MD [address] [place] [address] [address] [place] [address] General Surgery 06/13/24 Demetrius Austin MD [address] [place] [address] [address] [place] [address] Orthopaedic Surgery 06/13/24 Harry Garcia MD [address] [place] [address] Gastroenterology 06/13/24 Jovany Feliciano MD [address] [place] [address] Cardiology 06/13/24 documented as of this encounter
--- OUTSIDE RECORDS SUMMARY | 2024-09-05 10:07 | XMS_ITS | Encounter Summary ---
Author Organization [employer] Address [address] [facility] 7t [place] [address] Care Team Providers Care Mail Weigher Name Role Phone Flora Santiago TIE TAPE MACHINE OPERATOR Primary Care Provider [phone] Sherin Hall RN Unavailable [phone] Juan Jose Deshpande MD Unavailable [phone] Mcihael Glass MD Unavailable Demetrius Austin MD Unavailable Harry Garcai MD Unavailable [phone] Jovany Feliciano MD Unavailable [phone] Encounter Details Date Type Department Care Team [...] Medication Management [facility] MEDICINE [address] [place] [address] Kandi Panda, RobertD [address] [place] [address] 12/24/2024 8:00 AM EDT Office Visit [facility] ADULT DENTAL [address] [place] [address] Dallin Saenzaris [address] [place] [address] documented as of this encounter Goals Goal [...] IMMUNOGLOBULIN G 1318 600 - 1640 mg/dL [facility] IMMUNOGLOBULIN A 1062(A) 47 - 310 mg/dL [facility] Comment:Verified by repeat a nalysis. Immunoglobulin M 195 50 - 300 mg/dL [facility] Comment:THIS TEST WAS PERFOR MED AT:[facility] [place] [phone] GARCIA MD Immunofixation Result SEE NOTE [facility] Comment:No monoclonal protei ns detected. 08/13/2024 11:4 9 AM EST 08/13/2024 11:49 AM EST us Generic External Data Provider LAB BLOOD ORDERAB LES Final Result Performing Organization Address City/State/[facility] Co de Phone Number [facility] [address] [place] [phone] * (ABNORMAL) Basic Metabolic Panel (08/13/2024 11:49 AM EST) Sodium 133(L) 135 - 145 mmol/L [facility] Potassium 4.9 3.3 - 5.1 mmol/L [facility] Chloride 98 96 - 108 mmol/L [facility] Carbon Dioxide 23 22 - 29 mmol/L [facility] Anion Gap 17 12 - 20 [facility] Urea Nitrogen (BUN) 17(H) 9 - 16 mg/dL [facility] Creatinine, Serum 1.10 0.5 - 1.4 mg/dL [facility] Estimated Glomerular Filt Rate >60 [facility] Comment:Chronic Kidney Disea se: Estimated GFR < 60 mL/min/1.54m3Owesxw Kidney Disease: Estimated GFR < 15 mL/min/1.73m2 Glucose 296(H) 60 - 115 mg/dL [facility] Calcium 9.8 8.4 - 10.2 mg/dL [facility] 08/13/2024 11:4 9 AM EST 08/13/2024 11:49 AM EST us Generic External Data Provider LAB BLOOD ORDERAB LES Final Result Performing Organization Address [facility] de Phone Number [facility] [address] [place] [phone] * (ABNORMAL) Urinalysis Complete (08/13/2024 11:43 AM EST) Color Urine Yellow [facility] Appearance Urine Clear [facility] PH 5.5 5.0 - 9.0 [facility] Glucose Urine UA >=1000(A) Negative mg/dL [facility] Urine Blood Moderate (2+)(A) Negative [facility] Specific [place] - Urine 1.025 1.005 - 1.025 [facility] Urine Protein Trace Neg-Trace mg/dL [facility] Urine Ketones Negative Negative mg/dL [facility] Nitrite Urine Negative Negative [facility] Leukocyte Esterase Urine Negative Negative [facility] RBC Urine 6-10(A) 0 - 2 /HPF [facility] Urine WBC 0-5 0 - 5 /HPF [facility] Urine Squamous Epithelial Cell 0-2 0 - 2 /HPF [facility] Urine Bacteria None Seen None Seen [facility] Hyaline Casts, Urine 0-2 0 - 2 /LPF [facility] 08/13/2024 11:4 3 AM EST 08/13/2024 12:35 PM EST us Generic External Data Provider LAB URINE ORDERAB LES Final Result Performing Organization Address City/[facility]/ZIP Co de Phone Number [facility] [address] [place] [address] [phone] documented in this encounter Visit Diagnoses Not on filedocumented in this encounter Additional Health Concerns Assessment Noted Time PHQ-9 Depression Total Score: 0 11/30/19 11:07 AM EDT documented as of this encounter Care Teams Mail Weigher Relationship Specialty Start Date End Date Flora Santiago FNP [address] [place] [address] PCP - General Family Medicine 05/02/21 Sherin Hall, RN [address] [place] [address] Java Development Manager Family Medicine 07/30/23 Juan Jose Deshpande MD [address] [place] [address] Nephrology 06/13/24 Michael Glass MD [address] [place] [address] [address] [place] [address] General Surgery 06/13/24 Demetrius Austin MD [address] [place] [address] [address] [place] [address] Orthopaedic Surgery 06/13/24 Harry Garcia MD [address] [place] [address] Gastroenterology 06/13/24 Jovany Feliciano MD [address] [place] [address] Cardiology 06/13/24 documented as of this encounter
--- OUTSIDE RECORDS SUMMARY | 2024-09-05 10:07 | XMS_ITS | Encounter Summary ---
Author Organization [employer] Address [address] [facility] 7t [place] [address] Care Team Providers Care Stitching Machine Setter Name Role Phone Gustavo Santiagole MEDICAL GENETICIST Primary Care Provider Sherin Hall RN Unavailable [phone] Juan Jose Deshpande MD Unavailable [phone] Michael Glass MD Unavailable [phone] Demetrius Austin MD Unavailable Harry Garcia MD Unavailable [phone] Jovany Feliciano MD Unavailable Kandi Panda PharmD Unavailable [phone] Angelica Saenz Unavailable Mao Palomino DDS Unavailable [phone] Reason for Visit * Reason Comments Walk-In right rib pain; pt r eports that he fell about a week ago and never went to ER, feels like he is SOB at times Encounter Details Date Type Department Care Team (Late st Contact Info) Description 09/05/2024 9:20 AM EST Office Visit [facility] [address] [place] [address] Jeannette Griffin MD [address] [place], [place] [id number] Rib pain on right side (Primary Dx) Social History Tobacco Use Types [...] t he electric, gas, oil or water [employer] threatened to shut off services in your [...] AM EDT documented as of this encounter Last Filed Vital Signs Vital Sign Reading [...] Mass Index 29.35 09/05/2024 9:06 AM EST documented in this encounter Progress Notes * Jeannette Griffin MD - 09/05/2024 9:20 AM EST Images from the original note were not included. Subjective Patient ID: Steven Stanley is a 59 y.o. male who presents for Walk-In (right rib pain; pt reports that he fell about a week ago and never went to ER, feels like he is SOB at times). Chest Pain This is a new problem. The current episode started in the past 7 days. The onset quality is sudden.Pain location: right lower rib. The quality of the pain is described as dull. The pain does not radiate. Pertinent negatives include no abdominal pain, back pain, claudication, cough, diaphoresis, dizziness, exertional chest pressure, fever, hemoptysis, irregular heartbeat, leg pain, lower extremity edema, malaise/fatigue, nausea, near-syncope, orthopnea, palpitations, shortness of breath, sputumproduction, syncope or vomiting. Pt fell on the right side while shoveling snow Review of Systems Constitutional: Negative. Negative for diaphoresis, fever and malaise/fatigue. Respiratory: Negative. Negative for cough, hemoptysis, sputum production and shortness of breath. Cardiovascular: Positive for chest pain. Negative for palpitations, orthopnea, claudication, syncope and near-syncope. Gastrointestinal: Negative. Negative for abdominal pain, nausea and vomiting. Genitourinary: Negative. Musculoskeletal: Negative for back pain. Neurological: Negative for dizziness. Objective Physical Exam Constitutional: Appearance: Normal appearance. Cardiovascular: Rate and Rhythm: Normal rate and regular rhythm. Pulmonary: Effort: Pulmonary effort is normal. Breath sounds: Normal breath sounds. Chest: Chest wall: Tenderness present. Neurological: General: No focal deficit present. Mental Status: He is alert. Psychiatric: Mood and Affect: Mood normal. Behavior: Behavior normal. Assessment/Plan Diagnoses and all orders for this visit: Rib pain on right side Comments: ? fracture Xray ordered today Advised meloxicam and Ice Advised to avoid heavy lifting Orders: - XR Chest 2 Views; Future Other orders - meloxicam (Mobic) 7.5 MG tablet; Take 1 tablet (7.5 mg) by mouth 2 times daily. documented in this encounter Plan of Treatment Upcoming Encounters Date Type Department Care Team (Late st Contact Info) Description 09/08/2024 9:30 AM EST Medication Management [facility] [address] [place] [address] Kandi Panda, PharmD [address] [place] [address] 12/24/2024 8:00 AM EDT Office Visit [facility] [address] [place] [address] Angelica Saenz [address] [place] [address] documented as of this encounter Goals Goal [...] AM EST Rib pain on right side documented in this encounter Results * XR Chest 2 Views (09/05/2024 9:25 AM EST) Anatomical Region Laterality Modality Chest Radiographic Kandace ging 09/05/2024 9:25 AM EST Narrative 09/05/2024 9:44 AM EST ?[facility] ?[address] ?[place] [address] ?XRay Report ? Signed ? Patient: Stanley,Steven ?MR#: [id number] ?? 2 ? : 1965 ?Acct:[id number] ? Age/Sex: 59 / M ?ADM Date: 02/28/25 ? Loc: HO.HHCX ? Attending Dr: Jeannette Griffin MD ? Ordering Physician: Jeannette Griffin MD ?? Date of Service: 09/05/24 ?? Procedure(s): XR chest 2V ?? Accession Number(s): [id number] ? cc: Jeannette Griffin MD ? EXAMINATION: [...] MD in OV> ?09/05/24 0941 ? DD/ 0925 ? TD/TT: 09/05/24 0935 ? Transportation Economics Teacher: ? Procedure Note Pina, Image - 09/05/[address] [address] XRay Report Signed Patient: Robin Stanley#: [id number] 2 : 1965Acct:[id number] Age/Sex: 59 / MADM Date: 09/05/24 Loc: HO.HHCX Attending Dr: Jeannette Griffin MD Ordering Physician: Jeannette Griffin MD Date of Service: 09/05/24 Procedure(s): XR chest 2V Accession Number(s): [id number] cc: Jeannette Griffin MD EXAMINATION: XR CHEST [...] Billy Mcneill MD 09/05/2024 09:41 AM EST RP Dictated By: Billy Mcneill MD Signed By: <Electronically signed by Billy Mcneill MD in OV> 09/05/24940 DD/ 4 TD/TT: 09/05/24934 Transportation Economics Teacher: Jeannette Griffin MD IMG XR PROCEDURES Final Result documented in this encounter Visit Diagnoses Diagnosis Rib pain on right side- Primary documented in this encounter Additional Health Concerns Assessment Noted Time PHQ-9 Depression Total Score: 0 11/30/19 24 11:07 AM EDT documented as of this encounter Care Teams Stitching Machine Setter Relationship Specialty Start Date End Date Flora Santiago FNP [address] [place] [address] PCP - General Family Medicine 05/02/21 Sherin Hall, RN [address] [place] [address] Outside Deliverer Family Medicine 07/30/23 Juan Jose Deshpande MD [address] [place] [address] Nephrology 06/13/24 Michael Glass MD [address] [place] [address] Dr 3[address] [place] [address] General Surgery 06/13/24 Demetrius Austin MD [address] [place] [address] Orthopaedic Surgery 06/13/24 Harry Garcia MD [address] [place] [address] Gastroenterology 06/13/24 Jovany Feliciano MD [address] [place] [address] Cardiology 06/13/24 Kandi Panda, Fredrick [address] [place] [address] Pharmacist Internal Medicine 08/18/24 Angelica Saenz [address] [place] [address] Dental Hygienist Dental Spirits Model 08/20/24 Mao Palomino DDS [address] [place] [address] Dentist Dental Spirits Model 08/20/24 documented as of this encounter
== END 2024-09-05 09:26 | disposition home or self-care (01) ==
LOC: HO.HHCX 09:25
PROVIDERS: Visit Provider Student in an Organized Health Care Education/Training Program
DX: R07.81 Pleurodynia (principal)
CPT/HCPCS: 71046

== ENCOUNTER → 2024-09-05 09:25 | Outpatient (BNV) | payer MEDICAID, SELFPAY | PROVIDERS: Visit Provider Radiology Diagnostic Radiology | DX: R07.81 Pleurodynia (principal) | CPT/HCPCS: 71046 ==

== ENCOUNTER 2024-09-15 13:05 | Outpatient (AMB) | payer MEDICAID, SELFPAY ==
--- NOTE | 2024-09-15 13:06 | MHC.OFFVIS ---
Vital Signs 09/15/24 13:17 Height 5 ft 7 in Weight 180 lb 12.465 oz BMI 28.3 BP 153/77 H Blood Pressure Location Rt brachial Position Sitting Pulse 101 H Intake Visit Reasons: 6 month follow up Intake Note: Steven minda in the office as a 6 month follow up. CC: states that the last snow storm he fell and has had painsv in his RUQ ever since. He was given Metoprazol and Kapsgargo. He is gasping and has the hiccups. States that he has a loss of his appetite. 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 he c/o disocmfort in RUQ, on daily basis he takes gas x and it doens;t help he has nausea, no vomiting but regurgitation appetie is poor, weight is going down, he is scared by that 230# to 170# he also has burning sensation in the stomahc as well denies diarrhea or constipation no dysphagia occ alcohol intake 2-3 beers every 3 weeks no drug use He was admitted 12/2022 with RUQ pain He had Surgical assessment and MRI which did not reveal and gallstones or other biliary path hep c ab pos, but viral load neg 2010 US: 05/2019--diffuse steatosis colonoscopy ?1 yr ago with pleet and nml per his report. I ordered EGD and CT CT--few small renal stones, no acute process EGD: Streaky erosive esophagitis at GEJ, LA grade C He saw cardiology and dx with CAD, did well on stress test, ECHo was ok--medical management US 08/2020 with chronic liver lesion, unchanged, fatty liver, no gallstones Due to ongoing sx of epigastric pain, with gas and bloating, nausea I ordered EGD/colonoscopy 03/2021 Had severe erosive esophagitis, LA grade D, TA removed PPI was increased to 40 mg BID GES also done 02/2021-- no gastroparesis, possible rapid emptying by 2 hrs only 18% left US 04/28 : fatty liver, indeterminate liver lesion, sludge US: 05/29 GB thickening patient had cholecystectomy and umbilical hernia repair 01/2023--having issues with ascotes since then due to decompensation INTERIM: He fell 2 weeks ago and had pain since then, he had x rays and check at ED he had CTA 08/02 with 1 cm lesion seen in the liver he had some alcohol around dionicio he is noting more burping and GERD no abdominal swelling no nausea or vomiting no confusion, memory issues EXAM: GENERAL: The patient is relaxed, VITAL SIGNS:see workflow HEENT: Nonicteric sclerae, PERRLA, EOMI. Oropharynx clear. Moist mucous membranes. Conjunctivae appear well perfused. No thyroid mass. CHEST: Chest wall is nontender. HEART: Regular rate and rhythm -ESM 3/ over precordium LUNGS: Clear to auscultation bilaterally. ABDOMEN: Soft, positive bowel sounds,distended abdo, no fluid wave SKIN: No rash, no excessive bruising, petechiae, or purpura. NEUROLOGIC: Cranial nerves II-XII intact without motor/sensory deficit. psych--nml Assessments 1. cirrhosis, decompensated now compensated without ascites or HE, CP score is 5, CTA with suggestion of lesion in liver ?HCC PLAN 1/ recommence PPI due to heartburn 2/ strongly advised to avoid alcohol can use black coffee, green tea 3/ egd at future date 4/ HCC screening --now with abn CTA-of the liver-get MRI--urgent --based on that decide on next step re: RFA vs liver transplant [facility] Medical History Diabetes Back pain GERD (gastroesophageal reflux disease) Cirrhosis CAD (coronary artery disease) Palpitations Arthritis Fibromyalgia SALGUERO (nonalcoholic steatohepatitis) Fatty liver Depression Hyperlipidemia, unspecified Type 2 diabetes mellitus with unspecified complications Essential hypertension Atherosclerotic cardiovascular disease Surgical History History of umbilical hernia repair (05/23/24) History of abdominal paracentesis Hx of cholecystectomy History of umbilical hernia repair Hx of endoscopy History of colonoscopy History of ankle surgery Left inguinal hernia (05/04/23) Gallstone Family History Father Diabetes Mother No problems noted. Social History Household Members: Spouse Housing: House Are you a primary primary care physician to a significant other at home: No Do you presently have visiting nurse or other home services: No Alcohol intake: unknown Comment: pt medicated Patient Tobacco Use Status: Current someday Tobacco user Tobacco use type: Cigar service: No Current occupational status: employed Current occupation: [employer] Physical Exam Vital Signs: Last Vital Signs Pulse 101 H 09/15/24 13:17 BP 153/77 H 09/15/24 13:17 BMI result Body Mass Index 28.3 Assessment & Plan Assessment & Plan (1) Cirrhosis: Code(s): K74.60 - Unspecified cirrhosis of liver Category: Medical Qualifiers: Ascites presence: with ascites Plan: as above Orders: Orders MR abdomen wo/w con Today K74.60 - Unspecified cirrhosis of liver Medications: New pantoprazole 40 mg PO DAILY 60 tabs 1RF Coding Level of Care Code Est Pt Level 4 (37159) Diagnoses Cirrhosis K74.60 Ascites presence: with ascites
[2024-09-15 13:17] VITALS: BP 153/77; PULSE 101; BMI 28.3
--- OUTSIDE RECORDS SUMMARY | 2024-09-15 14:43 | XMS_ITS | Encounter Summary ---
Author Organization [employer] Address [address] [facility] 7t [place] [address] Care Team Providers Care Commercial Litigation Associate Name Role Phone Flora Santiago RECORDS MANAGEMENT CLERK Primary Care Provider [phone] Sherin Hall RN Unavailable [phone] Juan Jose Deshpande MD Unavailable Michael Glass MD Unavailable [phone] Demetrius Austin MD Unavailable Harry Garcia MD Unavailable [phone] Jovany Feliciano MD Unavailable Kandi Panda PharmD Unavailable [phone] Angelica Saenz Unavailable Mao Palomino DDS Unavailable [phone] Encounter Details Date Type Department Care Team (Late st Contact Info) Description 05/25/2023 Abstract [facility] [address] [place] [address] Debi Zamora Social History Tobacco Use Types [...] Care Team (Late st Contact Info) Description 09/18/2024 9:30 AM EDT Medication Management [facility] [address] [place] [address] Kandi Panda, PharmD [address] [place] [address] 12/24/2024 8:00 AM EDT Office Visit [facility] [address] [place] [address] Dallin Saenzaris [address] [place] [address] documented as of this encounter Procedures Procedure Name Priority Date/Time Associated Diagnosis Comments COLONOSCOPY Routine 03/17/2021 documented in this encounter Results * Colonoscopy (03/17/2021) Colonoscopy Normal Normal Narrative Debi Zamora - 03/17/2021 Repeat in 5 years tubular adenoma us Historical Provider HEALTH MAINTENANCE Final Result documented in this encounter Visit Diagnoses Not on filedocumented in this encounter Care Teams Commercial Litigation Associate Relationship Specialty Start Date End Date Flora Santiago FNP [address] [place] [address] PCP - General Family Medicine 05/02/21 Sherin Hall, RN [address] [place] [address] Stock Digger Family Medicine 07/30/23 Juan Jose Deshpande MD [address] [place] [address] Nephrology 06/13/24 Michael Glass MD [address] [facility] [address] [place] [address] General Surgery 06/13/24 Demetrius Austin MD [address] [place] [address] Orthopaedic Surgery 06/13/24 Harry Garcia MD [address] [place] [address] [place] [address] Gastroenterology 06/13/24 Jovany Feliciano MD [address] [address] Cardiology 06/13/24 Kandi Panda PharmD [address] [place] [address] Pharmacist Internal Medicine 08/18/24 Angelica Saenz [address] [place] [address] Dental Hygienist Dental Shuttle Buggy Operator 08/20/24 Mao Palomino DDS [address] [place] [address] Dentist Dental Shuttle Buggy Operator 08/20/24 documented as of this encounter
--- OUTSIDE RECORDS SUMMARY | 2024-09-15 14:43 | XMS_ITS | Encounter Summary ---
Author Organization [employer] Address 75 [facility] 7t [place] [address] Care Team Providers Care Paper Control Clerk Name Role Phone Flora Santiago Primary Care Provider Sherin Hall RN Unavailable [phone] Juan Jose Deshpande MD Unavailable [phone] Michael Glass MD Unavailable [phone] Demetrius Austin MD Unavailable Harry Garcia MD Unavailable [phone] Jovany Feliciano MD Unavailable [phone] Kandi Panda PharmD Unavailable [phone] Angelica Saenz Unavailable Mao Palomino DDS Unavailable [phone] Reason for Visit * Reason Onset Date Comments Returning Call Back 12/19/2022 Encounter Details Date Type Department Care Team (Late st Contact Info) Description 12/19/2022 Telephone [facility] [address] [place] [address] Flora Santiago FNP [address] [place], [place] [phone] Returning Call Back Social History Tobacco Use [...] Description 09/18/2024 9:30 AM EDT Medication Management [facility] [address] [place] [address] Kandi Panda PharmD [address] [place] [address] 12/24/2024 8:00 AM EDT Office Visit [facility] [address] [place] [address] Dallin Saenzaris [address] [place] [address] documented as of this encounter Visit Diagnoses Not on filedocumented in this encounter Care Teams Paper Control Clerk Relationship Specialty Start Date End Date Flora Santiago FNP [address] [place] [address] PCP - General Family Medicine 05/02/21 Sherin Hall, MICHELLE [address] [place] [address] Heavy Forger Helper Family Medicine 07/30/23 Juan Jose Deshpande MD [address] [place] [address] [address] [place] [address] Nephrology 06/13/24 Michael Glass MD [address] [facility] [address] 3rd [place] [address] General Surgery 06/13/24 Demetrius Austin MD [address] [place] [address] Orthopaedic Surgery 06/13/24 Harry Garcia MD [address] [facility] [place] [address] Gastroenterology 06/13/24 Jovany Feliciano MD [address] [facility] [place] [address] Cardiology 06/13/24 Kandi Panda, RobertD [address] [place] [address] Pharmacist Internal Medicine 08/18/24 Angelica Saenz [address] [place] [address] Dental Hygienist Dental Yeast Maker 08/20/24 Mao Palomino DDS [address] [place] [address] Dentist Dental Yeast Maker 08/20/24 documented as of this encounter
--- OUTSIDE RECORDS SUMMARY | 2024-09-15 14:43 | XMS_ITS | Encounter Summary ---
Author Organization [employer] Address [address] [facility] 7t [place] [address] Care Team Providers Care Inker And Opaquer Name Role Phone Gustavo Santiagole SILK OPENER Primary Care Provider Sherin Hall RN Unavailable [phone] Juan Jose Deshpande MD Unavailable [phone] Michael Glass MD Unavailable [phone] Demetrius Austin MD Unavailable Harry Garcia MD Unavailable [phone] Jovany Feliciano MD Unavailable Kandi Panda PharmD Unavailable Angelica Saenz Unavailable Mao Palomino DDS Unavailable [phone] Reason for Visit * Reason Comments Walk-In right rib pain; pt r eports that he fell about a week ago and never went to ER, feels like he is SOB at times Encounter Details Date Type Department Care Team (Late st Contact Info) Description 09/05/2024 9:20 AM EST Office Visit [facility] [address] [place] [address] Jeannette Griffin MD [address] [place], [place] [phone] Rib pain on right side (Primary Dx) [...] t he electric, gas, oil or water [employer] threatened to shut off services in your [...] Description 09/18/2024 9:30 AM EDT Medication Management [facility] [address] [place] [address] Kandi Panda, PharmD [address] [place] [address] 12/24/2024 8:00 AM EDT Office Visit [facility] [address] [place] [address] Angelica Saenz [address] [place] [address] documented as of this encounter Goals Goal [...] AM EST Narrative 09/05/2024 9:44 AM EST ?[facility] ?[address] ?[place] [address] ?XRay Report ? Signed ? Patient: Stanley,Steven ?MR#: [id number] ?? 2 ? : 1965 ?Acct:[id number] ? Age/Sex: 59 / M ?ADM Date: 02/28/25 ? Loc: HO.HHCX ? Attending Dr: Jeannette Griffin MD ? Ordering Physician: Jeannette Griffin MD ?? Date of Service: 09/05/24 ?? Procedure(s): XR chest 2V ?? Accession Number(s): [id number] ? cc: Jeannette Griffin MD ? EXAMINATION: [...] MD in OV> ?09/05/24 0941 ? DD/ ? TD/TT: 09/05/24 0935 ? Shingle Bolt Cutter: ? Procedure Note Pina, Image - 09/05/[address] [address] XRay Report Signed Patient: Robin Stanley#: [id number] 2 : 1965Acct:[id number] Age/Sex: 59 / MADM Date: 09/05/24 Loc: HO.HHCX Attending Dr: Jeannette Griffin MD Ordering Physician: Jeannette Griffin MD Date of Service: 09/05/24 Procedure(s): XR chest 2V Accession Number(s): [id number] cc: Jeannette Griffin MD EXAMINATION: XR CHEST [...] in OV> 09/05/[address] DD/ 4 TD/TT: 09/05/24934 Shingle Bolt Cutter: Jeannette Griffin MD IMG XR PROCEDURES Final Result documented in this encounter Visit Diagnoses Diagnosis Rib pain on right side- Primary documented in this encounter Additional Health Concerns Assessment Noted Time PHQ-9 Depression Total Score: 0 11/30/19 24 11:07 AM EDT documented as of this encounter Care Teams Inker And Opaquer Relationship Specialty Start Date End Date Flora Santiago FNP [address] [place] [address] PCP - General Family Medicine 05/02/21 Sherin Hall, RN [address] [place] [address] Optical Engineering Manager Family Medicine 07/30/23 Juan Jose Deshpande MD [address] [place] [address] Nephrology 06/13/24 Michael Glass MD [address] [place] [address] Dr 3rd [place] [address] General Surgery 06/13/24 Demetrius Austin MD [address] [place] [address] Orthopaedic Surgery 06/13/24 Harry Garcia MD [address] [place] [address] Gastroenterology 06/13/24 Jovany Feliciano MD [address] [place] [address] Cardiology 06/13/24 Kandi Panda, Fredrick [address] [place] [address] Pharmacist Internal Medicine 08/18/24 Angelica Saenz [address] [place] [address] Dental Hygienist Dental Tariff Compiler 08/20/24 Mao Palomino DDS [address] [place] [address] Dentist Dental Tariff Compiler 08/20/24 documented as of this encounter
--- OUTSIDE RECORDS SUMMARY | 2024-09-15 14:43 | XMS_ITS | Continuity of Care Document ---
Author Organization [facility] Address [address] [place] [phone]- Care Team Providers Care Program Review Director Name Role Phone Anderson Anderson NP Primary Care Physician Encounter [facility] [place](s): 08/12/24 - 09/11/24 [facility] [address] [place] [id number]- Encounter Type: Triage Allergies, Adverse Reactions, Alerts No Known Allergies Medications Hydrochlorothiazide 25 mg / Spironolactone 25 mg Tablet 1 tablet, By Mouth, Daily, 0 Refills, Maintenance, 01/16/20 7:02:00 AM EDT, Tablet Start Date: 01/16/20 Status: Ordered Repeat number: 1 Insulin Regular Inj = 15 units, Subcutaneous Infusion, 2 times a day, before breakfast and lunch, 0 Refills, Soft Stop,12/29/08 11:10:23 AM EDT Start Date: 12/29/08 Stop Date: 01/28/09 Status: Ordered Repeat number: 1 Lantus Inj = 15 units, Subcutaneous Injection, Daily at bedtime, 0 Refills, Soft Stop, 12/29/08 11:09:45 AM EDT Start Date: 12/29/08 Stop Date: 01/27/09 Status: Ordered Repeat number: 1 lisinopril 20 mg oral tablet 1 tablet, By Mouth, Daily, # 30 tablet, 0 Refills, Soft Stop, 12/29/08 11:08:48 AM EDT Start Date: 12/29/08 Stop Date: 01/28/09 Status: Ordered Quantity: 30.0 Unit: tablet Repeat number: 1 metformin 1000 mg oral tablet 1 tablet = 1,000 mg, By Mouth, Daily in PM, 0 Refills, Soft Stop, 12/29/08 11:09:03 AM EDT Start Date: 12/29/08 Stop Date: 01/27/09 Status: Ordered Repeat number: 1 Social History Social History Type Response Smoking Status Never (less than 100 in lifetime); Type: Cigarettes entered on: 08/13/24 Sex Sex Representation Male (finding) Patient Care team information Care Team Personnel Name: Dottie Hughes RN Position: [facility] SN RN Member Role: Primary Care Nurse Name: Anderson Anderson NP Position: [facility] Outreach Member Role: PCP Address: [address] [place] [address] Telecom: Care Team Related Persons Name: NICOLASA LORD Insurance Providers Guarantor name: K[employer] Health Plan Information #: 1 Payer: [employer] Member Number: KODY Policy Number: NA Group Number: [id number]
--- OUTSIDE RECORDS SUMMARY | 2024-09-15 14:43 | XMS_ITS | Encounter Summary ---
Author Organization [employer] Address [address] [place] [address] Care Team Providers Care Flight Crew Ordnanceman Name Role Phone Flora Santiago Primary Care Provider [phone] Sherin Hall RN Unavailable [phone] Juan Jose Deshpande MD Unavailable [phone] Michael Glass MD Unavailable [phone] Demetrius Austin MD Unavailable Harry Garcia MD Unavailable [phone] Jovany Feliciano MD Unavailable Reason for Visit * Reason Comments Med Refill Encounter Details Date Type Department Care Team (Late st Contact Info) Description 08/14/2024 Refill [facility] [address] [place] [address] Flora Santiago FNP [address] [place] [address] Routine health maintenance Social History Tobacco Use [...] Description 09/18/2024 9:30 AM EDT Medication Management [facility] [address] [place] [address] Kandi Panda PharmD [address] [place] [address] 12/24/2024 8:00 AM EDT Office Visit [facility] [address] [place] [address] Angelica Saenz [address] [place] [address] documented as of this encounter Goals Goal [...] documented as of this encounter Care Teams Flight Crew Ordnanceman Relationship Specialty Start Date End Date Flora Santiago FNP [address] [place] [address] PCP - General Family Medicine 05/02/21 Sherin Hall, RN [address] [place] [address] [employer] Family Medicine 07/30/23 Juan Jose Deshpande MD [address] [place] [address] Nephrology 06/13/24 Michael Glass MD [address] [place] [address] [address] [place] [address] General Surgery 06/13/24 Demetrius Austin MD [address] [place] [address] [address] [place] [address] Orthopaedic Surgery 06/13/24 Harry Garcia MD [address] [place] [phone] Gastroenterology 06/13/24 Jovany Feliciano MD [address] [place] [address] Cardiology 06/13/24 documented as of this encounter
--- OUTSIDE RECORDS SUMMARY | 2024-09-15 14:43 | XMS_ITS | Clinical Summary ---
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 Name Role Phone Vanekeeley Flora CIARRA Primary Care Provider Sherin Hall RN Unavailable [phone] Juan Jose Deshpande MD Unavailable [phone] Michael Glass MD Unavailable [phone] Demetrius Austin MD Unavailable Harry Garcia MD Unavailable [phone] Jovany Feliciano MD Unavailable [phone] Kandi Panda PharmD Unavailable Angelica Saenz Unavailable Mao Palomino DDS Unavailable [phone] Allergies Active Allergy Reactions Criticality Noted Date Comments Atorvastatin High 02/01/2023 Other reaction(s): elevated LFTs Shrimp Extract High 02/01/2023 Other reaction(s): Difficulty Breathing Medications beta carotene (vitamin A) 3 MG (83595 UT) capsule Take 10,000 Units by mouth in the morning. Active zinc sulfate (Zincate) 220 (50 Zn) MG capsule Take 50 mg of elemental zinc by mouth in the morning. Active simethicone (Mylicon) 125 MG chewable tablet Chew 125 mg 3 times daily. PRN Active thiamine (Vitamin B-1) 100 MG tablet Take 100 mg by mouth 3 times daily. Active Continuous Blood Gluc Manager [employer] (J.[employer]. 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 ([facility]) USE DIRECTED TO TEST BLOOD SUGAR THREE TIMES DAILY 100 each Active Inspra 50 MG tablet TAKE 1 TABLET BY MOUTH EVERY MORNING 90 tablet 1 Active Continuous Glucose Sensor (FreeStyle Bill 2 Sensor) miscIndications :Type 2 diabetes mellitus with hyperglycemia, with long-term current use of insulin ([facility]) USE DIRECTED CHANGE EVERY 14 DAYS 2 [...] hyperglycemia, with long-term current use of insulin ([facility]) INJECT 14 UNITS SUBCUTANEOUSLY AT BEDTIME 15 mL 5 025 Active insulin lispro (HumaLOG) 100 UNIT/ML injectionIndica tions:Type 2 diabetes mellitus with hyperglycemia, with long-term current use of insulin ([facility]) Inject 20 Units under the skin with [...] EVENING 90 tablet 3 024 2024 Discontinued insulin degludec (Tresiba FlexTouch) 100 UNIT/ML injectionIndica tions:Type 2 diabetes mellitus with hyperglycemia, with long-term current use of insulin ([facility]) INJECT 50 UNITS SUBCUTANEOUSLY AT BEDTIME 15 [...] hyperglycemia, with long-term current use of insulin ([facility]) Inject 20-25 Units under the skin with [...] & Plan (06/13/2024 11:47 AM EST): 04/23/24: [facility] [place]OW[place]. EMG with impression of bilateral [...] thumb bilateral. Referral to Ortho placed. 02/12/24: [facility] PAVAN Rivas. Eval bilat hand pain, numbness, tingling x 1 year. Referred for EMG and nerve conduction study to test nerves of BUE. Cont to monitor left ring finger to see if locking and catching. Non-recurrent unilateral ing uinal hernia without obstruction or gangrene 04/13/2024 Overview (04/13/2024): Left inguinal hernia repair completed in Fall [address] Glass - [facility] Umbilical hernia without obstruction and without gangrene 04/13/2024 Overview (04/13/2024): Following with [facility] [place] - Dr. Glass Consult note in Mar 2024 with plan for surgery small periumbilical hernia Reviewed ED precautions Assessment & Plan (04/13/2024 5:17 PM EDT): Speciality clearance for surgery in process Arthralgia of left temporomandibular joint 02/03 Microhematuria 11/30/2023 Overview (04/13/2024): Followed by [facility] Urology - WILL Harris Cytology (2022): benign [...] follow up with [facility] CD[facility] team Last eye exam: [...] HGBA1C 8.7 (A) 09/07/2023 -Continue working with RN Sherin in DM visits -Cont Tresiba 50 units [...] (08/12/2024 10:06 AM EST): -Previously following with [facility], although transferring to [facility]. -MELD score 8 -Previously completing paracentesis [...] Plan (06/13/2024 11:54 AM EST): -Following with [facility] - Dr. Garcia (last consult note [...] Plan (04/13/2024 5:00 PM EDT): -Following with [facility] - Dr. Garcia (last consult note [...] Plan (11/30/2023 11:37 AM EDT): -Following with [facility] - Dr. Garcia -MELD score 8 -Undergoing paracentesis for ascites PRN -Reviewed basic education and lifestyle interventions important for diagnosis of cirrhosis Medications through GI: Eplerenone 50mg daily DC spironolactone (Jun 2023 d/t gynecomastia) Furosemide 20mg daily Rifaximin Following with GI: screening endoscopy, return precautions paracentesis, HCC screening Q6mo (AFP, abd US) Assessment & Plan (06/23/2023 1:58 PM EST): -Following with [facility] LINDA Garcia -Undergoing paracentesis for ascites, next [...] Plan (03/30/2023 8:49 PM EDT): -Following with [facility] - Dr. Garcia -Reports currently scheduled Q2 weeks for paracentesis -Upcoming paracentesis scheduled week of 04/01/23, with plan for f/u with GI week of 04/08/23 -Reviewed basic education and lifestyle interventions important for diagnosis of cirrhosis Medications through GI: ?? Spironolactone 50mg daily ?? Furosemide 20mg daily Assessment & Plan (02/13/2023 5:57 PM EDT): - followed by Dr. Garcia [facility], last seen in December 2022 - urgent follow-up recommended; we will try calling Biliary acute pancreatitis 09/28/2022 Erosive esophagitis 10/04/2021 Renal stone 09/29/2020 Hypertensive disorder 04/08/2015 Assessment & Plan (06/13/2024 11:57 AM EST): Following with [facility] (Dr. Deshpande) & [facility] (Dr. Feliciano) Stress test from 2022. Able [...] Plan (04/13/2024 5:14 PM EDT): Following with [facility] (Dr. Deshpande) & [facility] (Dr. Feliciano) Stress test from 2022. Able to exercise 9.2 mets and reached target HR w/o signs of angina. Echo with LVEF 55-60%. Mild aortic stenosis. Lipids: Zetia, Praluent (PCSK9i) Medications: - Continues with lisinopril 10mg daily - Cont furosemide 20-40mg daily (dose adjustments primarily through Nephrology d/t hx hyponatremia and edema) Assessment & Plan (11/30/2023 11:49 AM EDT): Following with [facility] Cards - Dr. Feliciano. Stress test from [...] - Cause/origin likely multifactorial - Following with [facility] - WILL Harris - Cont Cialis [...] Encounters Date Type Department Care Team Description 09/10/2024 Refill [facility] [address] [place] [phone] Flora Santiago FNP 09/05/2024 9:20 AM EST Office Visit [facility] [address] [place] [phone] Jeannette Griffin MD Rib pain on right side (Primary Dx) 08/28/2024 Telephone [facility] [address] [place] [address] Elida Gutierrez, RN Results 08/18/2024 Travel 08/14/2024 Refill [facility] [address] [place] [phone] Flora Santiago FNP Routine health maintenance 08/13/2024 Telephone [facility] [address] [place] [phone] Flora Santiago FNP Care Coordination: [facility] 08/13/2024 Orders Only GENERIC EXTERNAL DATA DEPARTMENT Provider, Generic External Data 08/11/2024 11:30 AM EST Telemedicine [facility] [address] [place] [address] Flora Santiago FNP Liver lesion (Primary Dx); Primary hypertension; Cirrhosis of liver with ascites, unspecified hepatic cirrhosis type (CMS/HCC) (CMS/HCC) 08/11/2024 Travel 08/08/2024 Refill [facility] [address] [place] [phone] Flora Santiago FNP 08/07/2024 Telephone [facility] [address] [place] [phone] Owen Hughes [place] Chart Prep 07/21/2024 Telephone [facility] [address] [place] [address] Flora Santiago FNP ED Visit 07/21/2024 Telephone [facility] [address] [place] [address] Flora Santiago FNP ER Follow-up 07/17/2024 Orders Only GENERIC EXTERNAL DATA DEPARTMENT Provider, Generic External Data 07/02/2024 Refill [facility] [address] [place] [address] Flora Santiago FNP from Last 3 Months Immunizations Name Administration [...] Description 09/18/2024 9:30 AM EDT Medication Management [facility] [address] [place] [address] Kandi Panda, PharmD [address] [place] [address] 12/24/2024 8:00 AM EDT Office Visit [facility] [address] [place] [address] Angelica Saenz [address] [place] [address] Health Maintenance Due Date Last Done Comments [...] 03/28/2025 03/28/2024, 06/08, 07/18/2021, Additional history exists Alcohol/Substance Use Screening 06/13/2025 06/13/2024 COVID-19 Vaccine ( season) 2025 07/22/2021, 10/30/2020, 10/02/2020 Postponed from 03/09/2024 (Patient Refused) SDOH Screening 06/13/2025 06/13/2024 Tobacco Screening 09/05/2025 09/05/2024 Colonoscopy 03/17/2026 03/17/2021 Colorectal Cancer Screening 03/17/2026 [...] QL NAAT Routine 07/17/2024 10:12 AM EST POCT GLYCATED HEMOGLOBIN, TOTAL Routine 06/13/2024 9:20 AM EST Type 2 diabetes mellitus with hyperglycemia, with long-term current use of insulin (CMS/HCC) HEPATITIS PANEL, GENERAL Routine 04/29/2024 12:37 PM [...] AM EST Narrative 09/05/2024 9:44 AM EST ?[facility] ?[address] ?[place] [address] ?XRay Report ? Signed ? Patient: Steven Stanley ?MR#: [id number] ?? 2 ? : 1965 ?Acct:[id number] ? Age/Sex: 59 / M ?ADM Date: 09/05/24 ? Loc: HO.HHCX ? Attending Dr: Jeannette Griffin MD ? Ordering Physician: Jeannette Griffin MD ?? Date of Service: 09/05/24 ?? Procedure(s): XR chest 2V ?? Accession Number(s): [id number] ? cc: Jeannette Griffin MD ? EXAMINATION: [...] ? DD/ 4 ? TD/TT: 09/05/24934 ? Peer Health Promoter: ? Procedure Note Donema, Image - 09/05/[address] [address] XRay Report Signed Patient: Robin Stanley#: [id number] 2 : 1965Acct:[id number] Age/Sex: 59 / MADM Date: 09/05/24 Loc: HO.HHCX Attending Dr: Jeannette Griffin MD Ordering Physician: Jeannette Griffin MD Date of Service: 09/05/24 Procedure(s): XR chest 2V Accession Number(s): [id number] cc: Jeannette Griffin MD EXAMINATION: XR CHEST [...] in OV> 09/05/24940 DD/ 4 TD/TT: 09/05/24934 Peer Health Promoter: us Jeannette Griffin MD IMG XR PROCEDURES Final Result * (ABNORMAL) CBC auto differential (08/13/2024 11:49 AM EST) Only the most recent of2 resultswithin the time period is included. White Blood Count 11.4(H) 4.8 - 10.8 X10*3/uL [facility] Red Blood Count 5.21 4.60 - 5.80 X10*6/uL [facility] Hemoglobin 14.0 14.0 - 18.0 g/dl [facility] Hematocrit 42.3 42.0 - 52.0 % [facility] Mean Corpuscular Volume 81.2 80.0 - 98.0 fL [facility] Mean Corpuscular Hemoglobin 26.9(L) 27.0 - 33.0 pg [facility] Mean Corpuscular HGB Conc 33.1 31.0 - 36.0 g/dl [facility] Red Cell Distribution Width 13.9 11.0 - 16.0 % [facility] Platelet Count 212 160 - 400 X10*3/uL [facility] Mean Platelet Volume 10.2 9.4 - 12.4 fL [facility] Neutrophils Percent Auto 78.4(H) 45 - 73 % [facility] Imm Gran Pct Auto 0.4 0.0 - 0.4 % [facility] Lymphocytes Percent Auto 11.1(L) 20 - 40 % [facility] Monocytes Percent Auto 9.2 2 - 11 % [facility] Eosinophils Percent Auto 0.5 0 - 4 % [facility] Basophils Percent Auto 0.4 0 - 2 % [facility] NRBC Pct Auto 0.0 0.0 - 0.2 /100WBC [facility] Neutrophils Absolute Auto 8.9(H) 2.0 - 8.3 x10*3/uL [facility] Imm Gran Abs Auto 0.04(H) 0.00 - 0.03 X10*3/uL [facility] Lymphocytes Absolute Auto 1.3 1.2 - 4.9 X10*3/uL [facility] Monocytes Absolute Auto 1.0 0.1 - 1.2 X10*3/uL [facility] Eosinophils Absolute Auto 0.1 0.0 - 0.4 X10*3/uL [facility] Basophils Absolute Auto 0.0 0.0 - 0.2 X10*3/uL [facility] NRBC Abs Auto 0.000 0.0 - 0.012 X10*3/uL [facility] Blood Venous blood specimen / Unknown 08/13/2024 11:49 AM EST 08/13/2024 11:49 AM EST Flora Santiago [facility] BLOOD ORDERABLES Final Res ult Performing Organization Address [facility] Number [facility] [address] [place] [phone] * Alpha-Fetoprotein, Tumor Marker (08/13/2024 11:49 AM EST) [facility] Alpha Fetoprotein 2.7 <6.1 ng/mL [facility] Comment:This test was perfor med using the [employer] Coulterchemiluminescent method. Values obtained fromdifferent assay methods cannot be usedinterchangeably. AFP levels, regardless ofvalue, should not be interpreted as absoluteevidence of the presence or absence of disease.THIS TEST WAS PERFORMED AT:[facility] [place] [id number] GARCIA MD Blood Venous blood specimen / Unknown 08/13/2024 11:49 AM EST 08/13/2024 11:49 AM EST [facility] BLOOD ORDERABLES Final Res ult Performing Organization Address [facility] Co de Phone Number [facility] [address] [place] [phone] * (ABNORMAL) Immunofixation, Serum (08/13/2024 11:49 AM EST) Pathologist [facility] IMMUNOGLOBULIN G 1318 600 - 1640 mg/dL [facility] IMMUNOGLOBULIN A 1062(A) 47 - 310 mg/dL [facility] Comment:Verified by repeat a nalysis. Immunoglobulin M 195 50 - 300 mg/dL [facility] Comment:THIS TEST WAS PERFOR MED AT:[facility] [place] [phone] GARCIA MD Immunofixation Result SEE NOTE [facility] Comment:No monoclonal protei ns detected. 08/13/2024 11:4 9 AM EST 08/13/2024 11:49 AM EST us Generic External Data Provider LAB BLOOD ORDERAB LES Final Result Performing Organization Address [facility] Co de Phone Number [facility] [address] [place] [phone] * (ABNORMAL) Hepatic Function Panel (08/13/2024 11:49 AM EST) Only the most recent of2 resultswithin the time period is included. Bilirubin, Total 1.2(H) 0.0 - 1.0 mg/dL [facility] Bilirubin, Direct 0.5 0.0 - 0.5 mg/dL [facility] Aspartate Amino Transferase 32 5 - 37 U/L [facility] Alanine Aminotransferase 19 0 - 40 U/L [facility] Total Protein 9.1(H) 6.5 - 8.0 g/dL [facility] Albumin Level 4.4 3.5 - 5.0 g/dL [facility] Alkaline Phosphatase 167(H) 39 - 117 U/L [facility] Blood Venous blood specimen / Unknown 08/13/2024 11:49 AM EST 08/13/2024 11:49 AM EST us Flora Santiago FIELD INSTRUCTOR LAB BLOOD ORDERABLES Final Res ult Performing Organization Address [facility]/ZIP Co de Phone Number [facility] [address] [place] [phone] * (ABNORMAL) Basic Metabolic Panel (08/13/2024 11:49 AM EST) Only the most recent of2 resultswithin the time period is included. Sodium 133(L) 135 - 145 mmol/L [facility] Potassium 4.9 3.3 - 5.1 mmol/L [facility] Chloride 98 96 - 108 mmol/L [facility] Carbon Dioxide 23 22 - 29 mmol/L [facility] Anion Gap 17 12 - 20 [facility] Urea Nitrogen (BUN) 17(H) 9 - 16 mg/dL [facility] Creatinine, Serum 1.10 0.5 - 1.4 mg/dL [facility] Estimated Glomerular Filt Rate >60 [facility] Comment:Chronic Kidney Disea se: Estimated GFR < 60 mL/min/1.23h3Cvcrku Kidney Disease: Estimated GFR < 15 mL/min/1.73m2 Glucose 296(H) 60 - 115 mg/dL [facility] Calcium 9.8 8.4 - 10.2 mg/dL [facility] 08/13/2024 11:4 9 AM EST 08/13/2024 11:49 AM EST us Generic External Data Provider LAB BLOOD ORDERAB LES Final Result Performing Organization Address City/State/[facility] Co de Phone Number [facility] [address] [place] [phone] * (ABNORMAL) Urinalysis Complete (08/13/2024 11:43 AM EST) Color Urine Yellow [facility] Appearance Urine Clear [facility] PH 5.5 5.0 - 9.0 [facility] Glucose Urine UA >=1000(A) Negative mg/dL [facility] Urine Blood Moderate (2+)(A) Negative [facility] Specific [place]re - Urine 1.025 1.005 - 1.025 [facility] Urine Protein Trace Neg-Trace mg/dL [facility] Urine Ketones Negative Negative mg/dL [facility] Nitrite Urine Negative Negative [facility] Leukocyte Esterase Urine Negative Negative [facility] RBC Urine 6-10(A) 0 - 2 /HPF [facility] Urine WBC 0-5 0 - 5 /HPF [facility] Urine Squamous Epithelial Cell 0-2 0 - 2 /HPF [facility] Urine Bacteria None Seen None Seen [facility] Hyaline Casts, Urine 0-2 0 - 2 /LPF [facility] 08/13/2024 11:4 3 AM EST 08/13/2024 12:35 PM EST us Generic External Data Provider LAB URINE ORDERAB LES Final Result Performing Organization Address [facility] Co de Phone Number [facility] [address] [place] [phone] * CTA Chest PE Protocal (07/17/2024 6:38 PM EST) Anatomical Region Laterality Modality Body, Chest Computed Tomogra phy 07/17/2024 6:38 PM EST Narrative 07/17/2024 6:41 PM EST ? [facility] ?[address] ?[place] [address] ? CT Scan Report ? Signed with Addenda ? Patient: Steven Stanley ?MR#: [id number] ?? 2 ? : 1965 ?Acct:[id number] ? Age/Sex: 59 / M ?ADM Date: 07/17/24 ? Loc: HO.ED ? Attending Dr: ? Ordering Physician: Oswaldo Villareal ?? Date of Service: 07/17/24 ?? Procedure(s): CT angio chest PE protocol ?? Accession Number(s): [id number] ? cc: Oswaldo Villareal; Flora Santiago FIELD INSTRUCTOR ? Report Number: ?? [id number]: Total DLP = ??293.00 mGy-cm ?ADDENDUM ?? [...] DD/ 1838 ? TD/TT: 07/17/24 1838 ? Peer Health Promoter: ? Procedure Note Sarah Heller - 07/17/[address] [address] [address] Scan Report Signed with Wendy Patient: Robin Stanley#: [id number] 2 : 1965Acct:[id number] Age/Sex: 59 / MADM Date: 07/17/24 Loc: HO.ED Attending Dr: Ordering Physician: Oswaldo Villareal Date of Service: 07/17/24 Procedure(s): CT angio chest PE protocol Accession Number(s): [id number] cc: Oswaldo Villareal; VanekeeleyFlora [facility] Report Number: [id number]: Total DLP = 293.00 mGy-cm ADDENDUM This [...] in OV> 07/17/241839 DD/ 37 TD/TT: 07/17/241837 Peer Health Promoter: [facility] External Provider IMG CT PROCEDURES Edited Result - Final * D Dimer High Sensitivity (07/17/2024 5:20 PM EST) D Dimer High Sensitivity 284 NG/ML [facility] Comment:D-DIMER HS REFERENCE RANGENote: Our [...] ORDERAB LES Final Result Performing Organization Address [facility] Number [facility] [address] [place] [phone] * (ABNORMAL) High Sensitivity Troponin I (07/17/2024 1:19 PM EST) Only the most recent of2 resultswithin the time period is included. [facility] TROPONIN I HIGH SENSITIVITY 44.5(H) <3.5 - 35.0 ng/L [facility] Comment:The [place] high sens itivity Troponin-I results should beused in conjunction with other diagnostic information suchas ECG, clinical observations and information, and patientsymptoms to aid in the diagnosis of IA. 07/17/2024 1:19 PM EST 07/17/2024 1:22 PM EST [employer] External Data Provider LAB BLOOD ORDERAB LES Final Result Performing Organization Address [facility] Co de Phone Number [facility] [address] [place] [phone] * SARS-CoV-2 RNA, Influenza A/B, and RSV RNA, Ql NAAT (07/17/2024 10:12 AM EST) [facility] Influenza A PCR NEGATIVE Negative [facility] Influenza B PCR NEGATIVE Negative [facility] Resp Syncy Virus RNA Qual PCR NEGATIVE Negative [facility] SARS COV2 PCR NEGATIVE Negative [facility] Comment:All test results mus t [...] use by authorized laboratories.Testing performed on the [facility] GeneXpert utilizingreal-time RT-PCR.All SARS CoV2 and positive influenza A/B results arereported to [facility]. 07/17/2024 10:1 2 AM EST 07/17/2024 10:16 AM EST Generic External Data Provider LAB MICROBIOLOGY - GENERAL ORDERABLES Final Result Performing Organization Address [facility]/ZIP Co de Phone Number [facility] [facility] [address] [place] [phone] * B Type Natriuretic Peptide (BNP) (07/17/2024 10:12 AM EST) Pathologist [facility] B Type Natriuretic Peptide 89 <100 pg/mL [facility] Comment:For those patients w ho are being treated with Natrecor(nesiritide, recombinant BNP), BNP testing should beperformed at least two hours post treatment in order toensure that only endogenous levels of BNP are detected. 07/17/2024 10:1 2 AM EST 07/17/2024 10:16 AM EST Generic External Data Provider LAB BLOOD ORDERAB LES Final Result Performing Organization Address [facility] Co de Phone Number [facility] [address] [place] [phone] * (ABNORMAL) Magnesium (07/17/2024 10:12 AM EST) Pathologist [facility] Magnesium 1.5(L) 1.6 - 2.6 mg/dL [facility] 07/17/2024 10:1 2 AM EST 07/17/2024 10:16 AM EST us Generic External Data Provider LAB BLOOD ORDERAB LES Final Result [facility] [address] [place] [address] [phone] * Lipase (07/17/2024 10:12 AM EST) Lipase 52 8 - 78 U/L [facility] 07/17/2024 10:1 2 AM EST 07/17/2024 10:16 AM EST Generic External Data Provider LAB BLOOD ORDERAB LES Final Result Performing Organization Address City/[facility]/ZIP Co de Phone Number [facility] [address] [place] [address] [phone] * (ABNORMAL) POCT HGB A1C (06/13/2024 9:20 AM EST) Hemoglobin A1C 7.6(A) 4.0 - 6.0 % QC Media Lot # [id number] Lot# Expiration Date Blood 06/13/2024 9:20 AM EST Flora Santiago FIELD INSTRUCTOR POINT OF CARE TEST ENTER/EDIT ORDERABLES Final Result * Hepatitis Panel, General (04/29/2024 12:37 PM EDT) Hepatitis A IgM Nonreactive Nonreactive [facility] Comment:IgM antibodies to RITCHIE V not detected; does not exclude earlyacute or recovered HAV infection. ~Hepatitis B Surface Antibody REACTIVE Nonreactive [facility] Comment:REACTIVE: > 11.99 mI U/mL Hepatitis B Core Antibody Nonreactive Nonreactive [facility] Hepatitis C Antibody GRAYZONE Nonreactive [facility] Comment:Antibodies to HCV ma y or may not be present. Suggest repeatanti-HCV in 4-6 weeks and/or HCV viral load if clinicallyindicated. Hepatitis B Surface Ag Negative Negative [facility] 04/29/2024 12:3 7 PM EDT 04/29/2024 12:39 PM EDT us Generic External Data Provider LAB BLOOD ORDERAB LES Final Result Performing Organization Address City/[facility]/ZIP Co de Phone Number [facility] [address] [place] [address] [phone] * Lipid Panel, Standard (03/28/2024 8:52 AM EDT) Triglycerides 90 <150 mg/dL [facility] Comment:Desirable Triglyceri de: less than 150 mg/dLBorderline High Triglyceride 150-199 mg/dLHigh Triglyceride: 200-499 mg/dLVery High Triglyceride: greater than or equal to 5OO mg/dL Cholesterol 187 <200 mg/dL [facility] Comment:Desirable Cholestero l: less than 200 mg/dLBorderline High Cholesterol: 200-239 mg/dLHigh Cholesterol: greater than 239 mg/dL LDL Cholesterol Calculated 64 <100 mg/dL [facility] Comment:Desirable LDL: less than 100 mg/dLNear Optimal/Above Optimal LDL: 110- 129 mg/dLBorderline High LDL: 130-159 mg/dLHigh LDL: 160-189 mg/dLVery High LDL: greater than or equal to 190 mg/dL HDL Cholesterol 105 >40 mg/dL [facility] Comment:Desirable HDL: great er than 40 mg/dL Note: This HDL assay may give artificially low results in patients with liver disease. 03/28/2024 8:52 AM EDT 03/28/2024 8:52 AM EDT us Generic External Data Provider LAB BLOOD ORDERAB LES Final Result Performing Organization Address City/[facility]/ZIP Co de Phone Number [facility] [address] [place] [address] [phone] * Creatinine, Random Urine (10/31/2023 12:00 PM EDT) Creatinine, Urine 70.00 mg/dL [facility] 10/31/2023 12:0 0 PM EDT 10/31/2023 12:52 PM EDT us Generic External Data Provider LAB URINE ORDERAB LES Final Result [facility] [address] [place] [address] [phone] * HIV 1/2 ANTIGEN/ANTIBODY,FOURTH GENERATION W/RFL (07/18/2021 9:07 AM EST) Pathologist [facility] HIV-1/2 ANTIGEN AND ANTIBODIES, 4TH GENERATION W/ REFLEX NON-REACT NASEEM NON-REACT NASEEM [facility] Comment: HIV-1 antigen and HIV-1/HIV-2 [...] ? For additional information please refer to http://education.[employer].Yidio/faq/DRA808 (This link is being provided for informational/ educational purposes only.) ? The performance of this assay has not been clinically validated in patients less than 2 years old. ?? 07/18/2021 9:07 AM EST us Flora Santiago FIELD INSTRUCTOR LAB BLOOD ORDERABLES Final Res ult [facility] [address] [phone], * Hm Colonoscopy (03/17/2021) Colonoscopy Normal Normal Narrative Debi Zamora - 03/17/2021 Repeat in 5 years tubular adenoma Historical Provider HEALTH MAINTENANCE Final Result from Last 3 Months or Most Recently Relevant to Health Maintenance [place] [address] [place] [address] [place] [address] C3 [facility] STAND ADULT GENERIC OTHER Care Teams Straight Slicing Machine Operator Relationship Specialty Start Date End Date Flora Santiago FNP [address] [place] [address] PCP - General Family Medicine 05/02/21 Sherin Hall, MICHELLE [address] [place] [address] Air Traffic Controller Center Family Medicine 07/30/23 Juan Jose Deshpande MD [address] [place] [address] Nephrology 06/13/24 Michael Glass MD [address] [facility] [address] [facility] [place] [address] General Surgery 06/13/24 Demetrius Austin MD [address] [place] [address] Orthopaedic Surgery 06/13/24 Harry Garcia MD [address] [place] [address] Gastroenterology 06/13/24 Jovany Feliciano MD [address] [address] Cardiology 06/13/24 Kandi Panda PharmD [address] [place] [address] Pharmacist Internal Medicine 08/18/24 Angelica Saenz [address] [place] [address] Dental Hygienist Dental Floor Renovator 08/20/24 Mao Palomino DDS [address] [place] [address] Dentist Dental Floor Renovator 08/20/24
--- OUTSIDE RECORDS SUMMARY | 2024-09-15 14:43 | XMS_ITS | Encounter Summary ---
Author Organization [employer] Address [address] [facility] 7t [place] [address] Care Team Providers Care Letterpress Setter Name Role Phone Flora Santiago FACER OPERATOR Primary Care Provider [phone] Sherin Hall RN Unavailable [phone] Juan Jose Deshpande MD Unavailable [phone] Michael Glass MD Unavailable [phone] Demetrius Austin MD Unavailable Harry Garcia MD Unavailable [phone] Jovany Feliciano MD Unavailable [phone] Kandi Panda PharmD Unavailable [phone] Angelica Saenz Unavailable Mao Palomino DDS Unavailable [phone] Reason for Visit * Reason Onset Date Comments Results 08/28/2024 Encounter Details Date Type Department Care Team (Late st Contact Info) Description 08/28/2024 Telephone [facility] [address] [place], [place] [phone] Elida Gutierrez, MICHELLE Results Social History Tobacco [...] for the liver MRI as ordered by [facility]. Pt states the was told he [...] date yet for liver MRI ordered by [facility]. Labs also demonstrated elevated total protein, [...] Description 09/18/2024 9:30 AM EDT Medication Management [facility] MEDICINE [address] [place] [address] Kandi Panda PharmD [address] [place] [address] 12/24/2024 8:00 AM EDT Office Visit [facility] ADULT DENTAL [address] [place] [address] Dany Angelica [address] [place] [address] documented as of this encounter Goals Goal [...] documented as of this encounter Care Teams Letterpress Setter Relationship Specialty Start Date End Date Flora Santiago FNP [address] [place] [address] PCP - General Family Medicine 05/02/21 Sherin Hall, MICHELLE [address] [place] [address] Spring Floor Service Worker Family Medicine 07/30/23 Juan Jose Deshpande MD [address] [place] [address] Nephrology 06/13/24 Michael Glass MD [address] [facility] [address] [place] [address] General Surgery 06/13/24 Demetrius Austin MD [address] [place] [address] Orthopaedic Surgery 06/13/24 Harry Garcia MD [address] [facility] [address] [place] [address] Gastroenterology 06/13/24 Jovany Feliciano MD [address] [address] Cardiology 06/13/24 Kandi Panda PharmD [address] [place] [address] Pharmacist Internal Medicine 08/18/24 Angelica Saenz [address] [place] [address] Dental Hygienist Dental Dish Maker 08/20/24 Mao Palomino DDS [address] [place] [address] Dentist Dental Dish Maker 08/20/24 documented as of this encounter
--- OUTSIDE RECORDS SUMMARY | 2024-09-15 14:43 | XMS_ITS | Encounter Summary ---
Author Organization [employer] Address [address] [facility] 7t [place] [address] Care Team Providers Care Home Health Lvn Name Role Phone Flora Santiago DIRECTOR CHILD DEVELOPMENT CENTER Primary Care Provider [phone] Sherin Hall RN Unavailable [phone] Juan Jose Deshpande MD Unavailable [phone] Michael Glass MD Unavailable [phone] Demetrius Austin MD Unavailable Harry Garcia MD Unavailable [phone] Jovany Feliciano MD Unavailable Kandi Panda PharmD Unavailable Angelica Saenz Unavailable Mao Palomino DDS Unavailable [phone] Encounter Details Date Type Department Care Team (Late st Contact Info) Description 07/14/2022 Orders Only [facility] [address] [place], [place] [phone] Shahnaz Perez LPN Social History Tobacco Use [...] Description 09/18/2024 9:30 AM EDT Medication Management [facility] MEDICINE [address] [place] [address] Kandi Panda PharmD [address] [place] [address] 12/24/2024 8:00 AM EDT Office Visit [facility] ADULT DENTAL [address] [place] [address] Dany, Angelica [address] [place] [address] documented as of this encounter Visit Diagnoses Not on filedocumented in this encounter Care Teams Home Health Lvn Relationship Specialty Start Date End Date Flora Santiago FNP [address] [place] [address] PCP - General Family Medicine 05/02/21 Sherin Hall, RN [address] [place] [address] Glove Stitcher Family Medicine 07/30/23 Juan Jose Deshpande MD [address] [place] [address] Nephrology 06/13/24 Michael Glass MD [address] [place] [address] Dr [address] [place] [address] General Surgery 06/13/24 Demetrius Austin MD [address] [place] [address] Orthopaedic Surgery 06/13/24 Harry Garcia MD [address] [place] [address] Gastroenterology 06/13/24 Jovany Feliciano MD [address] 3rd [place] [address] Cardiology 06/13/24 Kandi Panda PharmD [address] [place] [address] Pharmacist Internal Medicine 08/18/24 Angelica Saenz [address] [place] [address] Dental Hygienist Dental Decision Analyst 08/20/24 Mao Palomino DDS [address] [place] [address] Dentist Dental Decision Analyst 08/20/24 documented as of this encounter
--- OUTSIDE RECORDS SUMMARY | 2024-09-15 14:43 | XMS_ITS | Encounter Summary ---
Author Organization [employer] [facility] Address [address] [place] [address] 7t [place] [address] Care Team Providers Care Marketing Education Teacher Name Role Phone VaneGustavo minale SLURRY TANK OPERATOR Primary Care Provider Sherin Hall RN Unavailable [phone] Juan Jose Desphande MD Unavailable [phone] Michael Glass MD Unavailable [phone] Demetrius Austin MD Unavailable Harry Garcia MD Unavailable [phone] Jovany Feliciano MD Unavailable Kandi Panda PharmD Unavailable [phone] Angelica Saenz Unavailable Mao Palomino DDS Unavailable [phone] Encounter Details Date Type Department Care Team (Latest Contact Info) Description 01/13/2021 Abstract [facility] CON[facility]S Dental, Provider, DDS Social History [...] Description 09/18/2024 9:30 AM EDT Medication Management [facility] MEDICINE [address] [place] [address] Kandi Panda, PharmD [address] [place] [address] 12/24/2024 8:00 AM EDT Office Visit [facility] ADULT DENTAL [address] [place] [address] Angelica Saenz [address] [place] [address] documented as of this encounter Visit Diagnoses Not on filedocumented in this encounter Care Teams Marketing Education Teacher Relationship Specialty Start Date End Date Flora Santiago FNP [address] [place] [address] PCP - General Family Medicine 05/02/21 Sherin Hall, RN [address] [place] [address] Photograph Inspector Family Medicine 07/30/23 Juan Jose Deshpande MD [address] [place] [address] Nephrology 06/13/24 Michael Glass MD [address] [place] [address] Dr [address] [place] [address] General Surgery 06/13/24 Demetrius Austin MD [address] [place] [address] Orthopaedic Surgery 06/13/24 Harry Garcia MD [address] [place] [address] Gastroenterology 06/13/24 Jovany Feliciano MD [address] [place] [address] Cardiology 06/13/24 Kandi Panda PharmD [address] [place] [address] Pharmacist Internal Medicine 08/18/24 Angelica Saenz [address] [place], [place] [phone] Dental Hygienist Dental Strike Off Machine Operator 08/20/24 Mao Palomino DDS [address] [place], [place] [phone] Dentist Dental Strike Off Machine Operator 08/20/24 documented as of this encounter
--- OUTSIDE RECORDS SUMMARY | 2024-09-15 14:43 | XMS_ITS | Encounter Summary ---
Author Organization [employer] Address 75 [facility] 7t [place] [address] Care Team Providers Care Manager Shipping Name Role Phone Flora Santiago MOVIE ACTOR Primary Care Provider Sherin Hall RN Unavailable [phone] Juan Jose Deshpande MD Unavailable [phone] Michael Glass MD Unavailable [phone] Demetrius Austin MD Unavailable Harry Garcia MD Unavailable [phone] Jovany Feliciano MD Unavailable Kandi Panda PharmD Unavailable Angelica Saenz Unavailable Mao Palomino DDS Unavailable [phone] Encounter Details Date Type Department Care Team (Late st Contact Info) Description 10/04/2022 Orders Only [facility] [address] [place], [place] [phone] Shahnaz Perez LPN Social History Tobacco Use [...] 9:30 AM EDT Medication Management [facility] MEDICINE [address] [place] [address] Kandi Panda PharmD [address] [place] [address] 12/24/2024 8:00 AM EDT Office Visit [facility] ADULT DENTAL [address] [place] [address] Dallin Saenzaris [address] [place] [address] documented as of this encounter Visit Diagnoses Not on filedocumented in this encounter Care Teams Manager Shipping Relationship Specialty Start Date End Date Flora Santiago FNP [address] [place] [address] PCP - General Family Medicine 05/02/21 Sherin Hall, RN [address] [place] [address] Overhead Irrigator Family Medicine 07/30/23 Juan Jose Deshpande MD [address] [place] [address] Nephrology 06/13/24 Michael Glass MD [address] [place] [address] Dr [address] [place] [address] General Surgery 06/13/24 Demetrius Austin MD [address] [place] [address] Orthopaedic Surgery 06/13/24 Harry Garcia MD [address] [facility] [address] [place] [address] Gastroenterology 06/13/24 Jovany Feliciano MD [address] [place] [address] 3[address] [place] [address] Cardiology 06/13/24 Kandi Panda PharmD [address] [place] [address] Pharmacist Internal Medicine 08/18/24 Angelica Saenz [address] [place] [address] Dental Hygienist Dental Timber Rider 08/20/24 Mao Palomino DDS [address] [place] [address] Dentist Dental Timber Rider 08/20/24 documented as of this encounter
--- OUTSIDE RECORDS SUMMARY | 2024-09-15 14:43 | XMS_ITS | Encounter Summary ---
Author Organization [email or web address] Address [address] [facility] 7t [place] [address] Care Team Providers Care Inspector Advanced Composite Name Role Phone VaneFlora mina DOCUMENTATION NURSE Primary Care Provider [phone] Sherin Hall RN Unavailable [phone] Juan Jose Deshpande MD Unavailable [phone] Michael Glass MD Unavailable [phone] Demetrius Austin MD Unavailable Harry Garcia MD Unavailable [phone] Jovany Feliciano MD Unavailable [phone] Kandi Panda PharmD Unavailable [phone] Encounter Details Date Type Department Care Team [...] Description 09/18/2024 9:30 AM EDT Medication Management [facility] MEDICINE [address] [place] [address] Kandi Panda, PharmD [address] [place] [address] 12/24/2024 8:00 AM EDT Office Visit [facility] ADULT DENTAL [address] [place] [address] Dallin Saenzaris [address] [place] [address] documented as of this encounter Goals Goal [...] documented as of this encounter Care Teams Inspector Advanced Composite Relationship Specialty Start Date End Date Flora Santiago FNP [address] [place] [address] PCP - General Family Medicine 05/02/21 Sherin Hall, RN [address] [place] [address] Manager Neonatal Family Medicine 07/30/23 Juan Jose Deshpande MD [address] [place] [address] Nephrology 06/13/24 Michael Glass MD [address] [place] [address] Dr [address] [place] [address] General Surgery 06/13/24 Demetrius Austin MD [address] [place] [address] Orthopaedic Surgery 06/13/24 Harry Garcia MD [address] [place] [address] Gastroenterology 06/13/24 Jovany Feliciano MD [address] [place] [address] Cardiology 06/13/24 Kandi Panda PharmD [address] [place] [address] Pharmacist Internal Medicine 08/18/24 documented as of this encounter
--- OUTSIDE RECORDS SUMMARY | 2024-09-15 14:43 | XMS_ITS | Encounter Summary ---
Author Organization [employer] [facility] Address [address] [place] [address] 7t [place] [address] Care Team Providers Care Animation Director Name Role Phone Gustavo Santiagole TRANSPORTATION REFRIGERATION TECHNICIAN Primary Care Provider Sherin Hall RN Unavailable [phone] Juan Jose Deshpande MD Unavailable [phone] Michael Glass MD Unavailable [phone] Demetrius Austin MD Unavailable Harry Garcia MD Unavailable [phone] Jovany Feliciano MD Unavailable Kandi Panda PharmD Unavailable [phone] Angelica Saenz Unavailable Mao Palomino DDS Unavailable [phone] Encounter Details Date Type Department Care Team (Latest Contact Info) Description 01/24/2019 Abstract [facility] CONVERSIONS Dental, Provider, DDS Social [...] Upcoming Encounters Date Type Department Care Team ( st Contact Info) Description 09/18/2024 9:30 AM EDT Medication Management [facility] MEDICINE [address] [place] [address] Kandi Panda, PharmD [address] [place] [address] 12/24/2024 8:00 AM EDT Office Visit [facility] ADULT DENTAL [address] [place] [address] Angelica Saenz [address] [place] [address] documented as of this encounter Visit Diagnoses Not on filedocumented in this encounter Care Teams Animation Director Relationship Specialty Start Date End Date Flora Santiago FNP [address] [place] [address] PCP - General Family Medicine 05/02/21 Sherin Hall, RN [address] [place] [address] Environmental Health Technologist Family Medicine 07/30/23 Juan Jose Deshpande MD [address] [place] [address] Nephrology 06/13/24 Michael Glass MD [address] [place] [address] Dr [address] [place] [address] General Surgery 06/13/24 Demetrius Austin MD [address] [facility] [address] [place] [address] Orthopaedic Surgery 06/13/24 Harry Garcia MD [address] [place] [address] Gastroenterology 06/13/24 Jovany Feliciano MD [address] [place] [address] Cardiology 06/13/24 Kandi Panda PharmD [address] [place] [address] Pharmacist Internal Medicine 08/18/24 Angelica Saenz [address] [place], [place] [phone] Dental Hygienist Dental Supervisor Blast Furnace 08/20/24 Mao Palomino DDS [address] [place], [place] [phone] Dentist Dental Supervisor Blast Furnace 08/20/24 documented as of this encounter
--- OUTSIDE RECORDS SUMMARY | 2024-09-15 14:43 | XMS_ITS | Encounter Summary ---
Author Organization [employer] Address [address] [place] [address] 7t [place] [address] Care Team Providers Care Sales Floor Manager Name Role Phone VaneGustavo minale METAL POLISHER Primary Care Provider [phone] Sherin Hall RN Unavailable [phone] Juan Jose Deshpande MD Unavailable [phone] Michael Glass MD Unavailable [phone] Demetrius Austin MD Unavailable Harry Garcia MD Unavailable [phone] Jovany Feliciano MD Unavailable [phone] Kandi Panda PharmD Unavailable [phone] Angelica Saenz Unavailable Mao Palomino DDS Unavailable [phone] Reason for Referral * Consultation (Routine) - Authorized Specialty Diagnoses / Procedures Referred By Contac t Referred To Contact Pharmacy Diagnoses Type 2 diabetes mellitus with hyperglycemia, with long-term current use of insulin ([facility]) Divya Amos MD [address] [place] [address] Phone: tel: fax: Referral ID Status Reason Start Date Expiration Date Visits Requested Visits Authorized [id number] Authorized Consult and Treat 06/11/2024 06/11/2025 6 6 Encounter Details Date Type Department Care Team (Late st Contact Info) Description 06/11/2024 Orders Only [facility] [address] [place], [place] [phone] Divya Amos MD [address] [place] [address] Type 2 diabetes mellitus with hyperglycemia, with long-term current use of insulin ([facility]/H[facility]) (Primary Dx) Social History Tobacco Use Types [...] the past 12 months, has t he [employer] gas, oil or water company threatened to [...] Description 09/18/2024 9:30 AM EDT Medication Management [facility] [address] [place] [address] Kandi Panda PharmD [address] [place] [address] 12/24/2024 8:00 AM EDT Office Visit [facility] ADULT DENTAL [address] [place] [address] Dallin Saenzaris [address] [place] [address] Scheduled Referrals Name Type Priority Associated Diagnoses Orde r Schedule Referral to Pharmacy CDTM Outpatient Referral Routine Type 2 diabetes mellitus with hyperglycemia, with long-term current use of insulin ([facility]) Ordered: 06/11/2024 documented as of this [...] with long-term current use of insulin ([facility])- Primary documented in this encounter Additional Health Concerns Assessment Noted Time PHQ-9 Depression Total Score: 0 11/30/19 11:07 AM EDT documented as of this encounter Care Teams Sales Floor Manager Relationship Specialty Start Date End Date Flora Santiago FNP [address] [place] [address] PCP - General Family Medicine 05/02/21 Sherin Hall, RN [address] [place] [address] Chief Of Harbor Patrol Family Medicine 07/30/23 Juan Jose Deshpande MD [address] [place] [address] Nephrology 06/13/24 Michael Glass MD [address]rd [place] [address] General Surgery 06/13/24 Demetrius Austin MD [address] [place] [address] Orthopaedic Surgery 06/13/24 Harry Garcia MD [address] [place] [address] Gastroenterology 06/13/24 Jovany Feliciano MD [address] [place] [address] Cardiology 06/13/24 Kandi Panda, Fredrick [address] [place] [address] Pharmacist Internal Medicine 08/18/24 Angelica Saenz [address] [place] [address] Dental Hygienist Dental Prospecting Observer 08/20/24 Mao Palomino DDS [address] [place] [address] Dentist Dental Prospecting Observer 08/20/24 documented as of this encounter
--- OUTSIDE RECORDS SUMMARY | 2024-09-15 14:43 | XMS_ITS | Encounter Summary ---
Author Organization [employer] Address [address] [place] [address] 7t [place] [address] Care Team Providers Care Volunteer Specialist Name Role Phone Flora Santiago CREW DISPATCHER Primary Care Provider Sherin Hall RN Unavailable [phone] Juan Jose Deshpande MD Unavailable [phone] Michael Glass MD Unavailable [phone] Demetrius Austin MD Unavailable Harry Garcia MD Unavailable Jovany Feliciano MD Unavailable Kandi Panda PharmD Unavailable [phone] Angelica Saenz Unavailable Mao Palomino DDS Unavailable Encounter Details Date Type Department Care Team (Late st Contact Info) Description 02/22/2023 Orders Only [facility] [address] [place], [place] [phone] Yanique Hart MD [address] [place], [place] [phone] Other ascites (Primary Dx) Social History Tobacco [...] Description 09/18/2024 9:30 AM EDT Medication Management [facility] [address] [place] [address] Kandi Panda PharmD [address] [place] [address] 12/24/2024 8:00 AM EDT Office Visit [facility] ADULT D[facility]AL [address] [place] [address] Dany, Angelica [address] [place] [address] Scheduled Orders Name Type Priority Associated Diagnoses [...] Primary documented in this encounter Care Teams Volunteer Specialist Relationship Specialty Start Date End Date Flora Santiago FNP [address] [place] [address] PCP - General Family Medicine 05/02/21 Sherin Hall, RN [address] [place] [address] Doweler Family Medicine 07/30/23 Juan Jose Deshpande MD [address] [place] [address] Nephrology 06/13/24 Michael Glass MD [address] 3rd [place] [address] General Surgery 06/13/24 Demetrius Austin MD [address] [place] [address] Orthopaedic Surgery 06/13/24 Harry Garcia MD [address] [facility] [place] [address] Gastroenterology 06/13/24 Jovany Feliciano MD [address] [place] [address] Cardiology 06/13/24 Kandi Panda, Fredrick [address] [place] [address] Pharmacist Internal Medicine 08/18/24 Angelica Saenz [address] [place] [address] Dental Hygienist Dental Manager Cafe 08/20/24 Mao Palomino DDS [address] [place] [address] Dentist Dental Manager Cafe 08/20/24 documented as of this encounter
--- OUTSIDE RECORDS SUMMARY | 2024-09-15 14:43 | XMS_ITS | Encounter Summary ---
Author Organization [employer] Address [address] [facility] 7t [place] [address] Care Team Providers Care Real Estate Sales Supervisor Name Role Phone Flora Santiago Primary Care Provider [phone] Sherin Hall RN Unavailable [phone] Juan Jose Deshpande MD Unavailable [phone] Michael Glass MD Unavailable [phone] Demetrius [place] MD Unavailable Harry Garcia MD Unavailable [phone] Jovany Feliciano MD Unavailable [phone] Kandi Panda PharmD Unavailable [phone] Angelica Saenz Unavailable Mao Palomino DDS Unavailable [phone] Reason for Visit * Reason Onset Date Comments ER Follow-up 12/19/2022 Encounter Details Date Type Department Care Team (Late st Contact Info) Description 12/19/2022 Telephone [facility] MED[facility]INE [address] [place] [address] Flora Santiago FNP [address] [place], [place] [phone] ER Follow-up Social History Tobacco Use Types [...] - 12/20/2022 12:22 PM EDT T/C to [phone] through [employer] id - [id number] to schedule HDF , No answer. LVM to call back on [phone]. * Telephone Encounter - Elizabeth Call - 12/19/2022 3:14 PM EDT Tc from pt requesting a HDF appt. Pt was admitted at [facility] on 12/09/22 and discharged on 12/10/22 due to hernia by belly button, lower back pain, liver and left hip pain. Patient advised will forward to team documented in this encounter Plan of Treatment Upcoming Encounters Date Type Department Care Team (Late st Contact Info) Description 09/18/2024 9:30 AM EDT Medication Management [facility] MEDICINE [address] [place], [place] [phone] Kandi Panda, PharmD [address] [place] [address] 12/24/2024 8:00 AM EDT Office Visit [facility] ADULT DENTAL [address] [place] [address] Angelica Saenz [address] [place] [address] documented as of this encounter Visit Diagnoses Not on filedocumented in this encounter Care Teams Real Estate Sales Supervisor Relationship Specialty Start Date End Date Flora Santiago FNP [address] [place] [address] PCP - General Family Medicine 05/02/21 Sherin Hall, RN [address] [place] [address] Gas Maker Family Medicine 07/30/23 Juan Jose Deshpande MD [address] [place] [address] Nephrology 06/13/24 Michael Glass MD [address] [place] [address] Dr [address] [place] [address] General Surgery 06/13/24 Demetrius Austin MD [address] [place] [address] Orthopaedic Surgery 06/13/24 Harry Garcia MD [address] [place] [address] Gastroenterology 06/13/24 Jovany Feliciano MD [address] [place] [address] [place] [address] Cardiology 06/13/24 Kandi Panda, Fredrick [address] [place] [address] Pharmacist Internal Medicine 08/18/24 DanyAngelica [address] [place] [address] Dental Hygienist Dental Termite Helper 08/20/24 Mao Palomino DDS [address] [place] [address] Dentist Dental Termite Helper 08/20/24 documented as of this encounter
--- OUTSIDE RECORDS SUMMARY | 2024-09-15 14:43 | XMS_ITS | Clinical Summary ---
Author Organization [facility] Address [address] [place] [address] [place] [address] Phone Care Team Providers Care Medical Front Desk Coordinator Name Role Phone Unavailable Primary Care [...] Health Maintenance Due Date Last Done Comments Hepatitis B Vaccine (1 of 3 - 19+ 3-dose series) 1984 Colorectal Cancer Screening: Annual FOBT 2014 Colorectal Cancer Screening: Colonoscopy 2014 Colorectal Cancer Screening: Sigmoidoscopy 2014 Diabetes: Hemoglobin A1C 08/09/2020 Diabetes: Ophthalmology Exam 08/09/2020 Diabetes: Pedal Pulse Checked 08/09/2020 Diabetes: Sensory Foot Exam 08/09/2020 Diabetes: Visual Foot Exam 08/09/2020 Influenza Vaccine (#1) 2024 Pneumococcal Vaccine: Pediat rics (0 to 5 Years) and At-Risk Patients (6 to 64 Years) Aged Out No longer eligible b ased on patient's age to complete this topic [place]
--- OUTSIDE RECORDS SUMMARY | 2024-09-15 14:43 | XMS_ITS | Continuity of Care Document ---
Author Organization [facility] Address [address] [place] [address]- Care Team Providers Care Helicopter Specialist Name Role Phone Anderson Anderson NP Primary Care Physician Encounter [facility] ACCT R [id number] Date(s): 08/13/24 - 09/12/24 [facility] [address] [place] [address]- Attending Physician: Arley Monroy Admitting Physician: Arley Monroy Referring Physician: AdmtrArley Encounter Type: Triage Allergies, Adverse Reactions, Alerts [...] Team Personnel Name: Dottie Hughes RN Position: [facility] SN RN Member Role: Primary Care Nurse Name: Anderson Anderson NP Position: [facility] Outreach Member Role: PCP Address: [address] [place] [address] Telecom: Care Team Related Persons Name: NICOLASA LORD Insurance Providers Guarantor name: KODY Health Plan Information #: 1 Payer: [employer] Member Number: NA Policy Number: NA Group Number: [id number]
--- OUTSIDE RECORDS SUMMARY | 2024-09-15 14:43 | XMS_ITS | Encounter Summary ---
Author Organization [employer] Address [address] [facility] 7t [place] [address] Care Team Providers Care Um Nurse Name Role Phone Flora Santiago Primary Care Provider [phone] Sherin Hall RN Unavailable [phone] Juan Jose Deshpande MD Unavailable [phone] Michael Glass MD Unavailable [phone] Demetrius Austin MD Unavailable Harry Garcia MD Unavailable [phone] Jovany Feliciano MD Unavailable Kandi Panda PharmD Unavailable [phone] Angelica Saenz Unavailable Mao Palomino DDS Unavailable [phone] Reason for Visit * Reason Comments Med Refill Encounter Details Date Type Department Care Team (Late st Contact Info) Description 09/10/2024 Refill [facility] [address] [place] [address] Flora Santiago FNP [address] [place], [place] [phone] Social History Tobacco Use Types Packs/Day Years [...] Description 09/18/2024 9:30 AM EDT Medication Management [facility] [address] [place] [address] Kandi Panda, Fredrick [address] [place] [address] 12/24/2024 8:00 AM EDT Office Visit [facility] ADULT DENT[facility] [address] [place] [address] Angelica Saenz [address] [place] [address] documented as of this encounter Goals Goal [...] documented as of this encounter Care Teams Um Nurse Relationship Specialty Start Date End Date Flora Santiago FNP [address] [place] [address] PCP - General Family Medicine 05/02/21 Sherin Hall, RN [address] [place] [address] Director Of Rooms Family Medicine 07/30/23 Juan Jose Deshpande MD [address] [place] [address] Nephrology 06/13/24 Michael Glass MD [address] [place] [address] Dr [address] [place] [address] General Surgery 06/13/24 Demetrius Austin MD [address] [place] [address] Orthopaedic Surgery 06/13/24 Harry Garcia MD [address] [place] [address] Gastroenterology 06/13/24 Jovany Feliciano MD [address] [address] Cardiology 06/13/24 Kandi Panda PharmD [address] [place] [address] Pharmacist Internal Medicine 08/18/24 Angelica Saenz [address] [place], [place] [phone] Dental Hygienist Dental Director Of Grants 08/20/24 Mao Palomino DDS [address] [place], [place] [phone] Dentist Dental Director Of Grants 08/20/24 documented as of this encounter
--- OUTSIDE RECORDS SUMMARY | 2024-09-15 14:43 | XMS_ITS | Encounter Summary ---
Author Organization [employer] Address [address] [facility] 7t [place] [address] Care Team Providers Care Custom Bow Maker Name Role Phone Flora Santiago Primary Care Provider Sherin Hall RN Unavailable [phone] Juan Jose Deshpande MD Unavailable [phone] Michael Glass MD Unavailable [phone] Demetrius Austin MD Unavailable Harry Garcia MD Unavailable [phone] Jovany Feliciano MD Unavailable [phone] Kandi Panda PharmD Unavailable Angelica Saenz Unavailable Mao Palomino DDS Unavailable [phone] Encounter Details Date Type Department Care Team (Late st Contact Info) Description 02/15/2023 Telephone [facility] MED[facility] [address] [place] [address] Flora Santiago FNP [address] [place], [place] [phone] Social History Tobacco Use Types Packs/Day Years [...] call from sarah. Please contact pt at [phone] (Bulgarian) documented in this encounter Plan of Treatment Upcoming Encounters Date Type Department Care Team (Late st Contact Info) Description 09/18/2024 9:30 AM EDT Medication Management [facility] [address] [place] [address] Kandi Panda PharmD [address] [place] [address] 12/24/2024 8:00 AM EDT Office Visit [facility] ADULT DENTAL [address] [place] [address] Dany, Angelica [address] [place] [address] documented as of this encounter Visit Diagnoses Not on filedocumented in this encounter Care Teams Custom Bow Maker Relationship Specialty Start Date End Date Flora Santiago FNP [address] [place] [address] PCP - General Family Medicine 05/02/21 Sherin Hall, RN [address] [place] [address] Pathology Technologist Family Medicine 07/30/23 Juan Jose Deshpande MD [address] [place] [address] Nephrology 06/13/24 Michael Glass MD [address] [place] [address] Dr 3rd [place] [address] General Surgery 06/13/24 Demetrius Austin MD [address] [place] [address] Orthopaedic Surgery 06/13/24 Harry Garcia MD [address] 3rd [place] [address] Gastroenterology 06/13/24 Jovany Feliciano MD [address] 3rd [place] [address] Cardiology 06/13/24 Kandi Panda PharmD [address] [place] [address] Pharmacist Internal Medicine 08/18/24 Angelica Saenz [address] [place] [address] Dental Hygienist Dental Medical Appointment Scheduler 08/20/24 Mao Palomino DDS [address] [place] [address] Dentist Dental Medical Appointment Scheduler 08/20/24 documented as of this encounter
== END 2024-09-16 08:41 | disposition home or self-care (01) ==
PROVIDERS: PCP Registered Nurse; Visit Provider Internal Medicine Gastroenterology
DX: K74.60 Unspecified cirrhosis of liver (principal)
CPT/HCPCS: 99214

== ENCOUNTER → 2024-09-15 13:05 | Outpatient (BNVA) | payer MEDICAID, SELFPAY | PROVIDERS: PCP Registered Nurse; Visit Provider Internal Medicine Gastroenterology | DX: K74.60 Unspecified cirrhosis of liver (principal) | CPT/HCPCS: 99212 ==

== ENCOUNTER 2024-10-07 09:55 | Emergency (ER) | payer MEDICAID, SELFPAY ==
--- NOTE | ~2024-10-07 | CT_ITS ---
EXAMINATION: CT CERVICAL SPINE WITHOUT CONTRAST CLINICAL INFORMATION: Status post fall. COMPARISON: None available. TECHNIQUE: Contiguous axial images through the cervical spine using 3 mm collimation with bone and soft tissue algorithm. Sagittal and coronal reformatted images acquired. This CT examination was performed using dose optimization techniques as appropriate, variously including the following: *Automated exposure control *Adjustment of mA and/or kV according to patient size (this includes techniques or standardized protocols for targeted exams where dose is matched to indication/reason for exam; i.e. extremities or head) *Use of iterative reconstruction technique DLP: 588.43 mg centimeter. FINDINGS: Craniocervical junction is intact. Degenerative changes in the periodontal C1 region. Marginal osteophyte formation and decreased intervertebral disc height and endplate sclerosis C4-5 C5-6 and to a lesser extent C6-7 levels. C1 is intact. C2 is intact. C3 is intact. C4 is intact. C5 is intact. C6 is intact. C7 is intact. No prevertebral compartment hematoma. Tiny gas bubbles in the right lateral central spinal canal at C4-5 level likely degenerative in nature possibly related to disc osteophyte complex formation versus right subarticular foraminal disc herniation. Acute displaced fracture of the posterior aspect of the left third rib. Possibly lung contusion and or hemothorax left upper lung/left upper hemithorax. Acute displaced fractures in all vein the left maxillary sinus wall. Degenerative changes with volume loss and subchondral cyst formation left temporomandibular joint. CT/CT cervical spine wo IV con IMPRESSION: Multilevel cervical spondylosis C3 C6 without acute fracture or trauma-related listhesis. Acute comminuted fractures, left maxillary sinus wall. Acute displaced rib fractures posterior left third rib with likely associated lung contusion and possibly hemothorax Fleischner guidelines were followed. Electronically signed by: Parish Colon MD 10/07/2024 12:28 PM EDT
--- NOTE | ~2024-10-07 | CT_ITS ---
EXAMINATION: CT HEAD WITHOUT CONTRAST CLINICAL INFORMATION: Altered mental status, fall, unknown head strike. COMPARISON: None available. TECHNIQUE: Contiguous axial imaging was performed from the skull base to vertex without intravenous administration of contrast. This CT examination was performed using dose optimization techniques as appropriate, variously including the following: *Automated exposure control *Adjustment of mA and/or kV according to patient size (this includes techniques or standardized protocols for targeted exams where dose is matched to indication/reason for exam; i.e. extremities or head) *Use of iterative reconstruction technique FINDINGS: There is no evidence of intracranial hemorrhage or extra-axial fluid collection. There is no mass effect, or edema. No CT evidence of acute territorial infarct. Ventricles, sulci, and cisterns are normal in size and configuration for patient age. No hydrocephalus. No midline shift. Negative hyperdense MCA sign. Negative insular ribbon sign. Patchy periventricular and deep white matter hypoattenuation is consistent with mild small vessel ischemic changes. Globes and orbital contents image normally. No pre or post septal abnormalities. No extracranial soft tissue abnormalities. There is high attenuation fluid opacification of left maxillary sinus, consistent with blood. The mastoids and tympanic cavities are normally aerated. No calvarial fracture. There is a minimally displaced fracture of the anterior and posterior wall of the left maxillary sinus. This extends into the left pterygoid plate. There is a minimally displaced fracture of the left orbital floor without fat herniation. There is mild diastases of the left frontozygomatic suture. Severe degenerative arthritis left TM joint. CT/CT head/brain wo IV con IMPRESSION: 1. No acute intracranial pathology. No calvarial fracture. 2. There are minimally displaced fractures of the anterior and posterior wall of the left maxillary sinus. This extends into the left pterygoid plate. 3. There is a minimally displaced fracture of the left orbital floor without extraconal fat herniation. 4. There is mild diastases of the left frontozygomatic suture in the left lateral orbit. 5. There is blood within the left maxillary sinus. Electronically signed by: Billy Mcneill MD 10/07/2024 12:36 PM EDT
--- NOTE | ~2024-10-07 | CT_ITS ---
EXAMINATION: CT ABDOMEN PELVIS WITH IV CONTRAST, CT CHEST WITH IV CONTRAST INDICATION: fall hx limited unknown down time COMPARISON: Comparison is made with the prior chest CT dated 07/17/[address] of the abdomen and pelvis dated 03/20/2024.. TECHNIQUE: CT scan of the chest, abdomen and pelvis was performed following administration of 85 mL Omnipaque 350 using standard departmental protocol. Coronal and sagittal reformatted images were generated and reviewed. Oral contrast material was not administered at the request of the referring physician. This CT exam was performed with one or more of the following dose reduction techniques: automated exposure control, adjustment of the mA and/or kV according to patient size, use of iterative reconstruction technique. DLP: 1439 mGy-cm CHEST: THYROID: The thyroid is unremarkable. LUNGS: There is mild dependent atelectasis bilaterally. MEDIASTINUM: There is mild infiltration of the anterior mediastinal fat which could represent a small amount of hemorrhage. No contrast extravasation is seen. LAI: There is no hilar lymphadenopathy. CARDIOVASCULATURE: The heart is normal in size. There is no pericardial effusion. The thoracic aorta is normal in caliber. DEGREE OF CORONARY CALCIFICATION: moderate PLEURA: There is no pleural effusion. No pneumothorax. MAIN AIRWAYS: The mainstem bronchi and proximal branches are patent. AXILLA: There is no axillary lymphadenopathy. SOFT TISSUES: Unremarkable. BONES: There are multiple old healed right rib fractures. There are acute fractures involving the posterior aspects of the left 3rd through 7th ribs and the lateral aspects of the left 4th through 6th ribs. ABDOMEN: LIVER: The liver demonstrates a nodular contour, consistent with cirrhosis. There is a 1.4 cm hyperenhancing lesion in the left lobe of the liver. The hepatic and portal veins are patent. GALLBLADDER / BILE DUCTS: The gallbladder is surgically absent. There is no intra or extrahepatic biliary ductal dilatation. SPLEEN: The spleen is normal in size. No focal splenic lesion is identified. PANCREAS: The pancreas is unremarkable in appearance. ADRENAL GLANDS: Within normal limits. KIDNEYS/RETROPERITONEUM: No renal calculi are identified. There is no hydronephrosis. No renal masses are identified. LYMPH NODES: No abdominal or pelvic lymphadenopathy. VASCULATURE: The abdominal aorta is normal in caliber. MESENTERY/PERITONEUM: No free fluid. No masses. There is no free intraperitoneal gas. STOMACH: The stomach is unremarkable. SMALL BOWEL: The small bowel is normal in caliber. COLON: The colon is unremarkable. APPENDIX: Normal. URINARY BLADDER/PELVIC ORGANS: The urinary bladder is unremarkable. The prostate is normal in size. BONES / SOFT TISSUES: There is degenerative disc disease of the spine. CT/CT abdomen pelvis w IV con IMPRESSION: 1. Multiple acute fractures involving the left ribs as described. 2. Infiltration of the fat of the anterior mediastinum may represent a small amount of hemorrhage. No contrast extravasation is seen to suggest active bleeding. 3. Cirrhosis of the liver. 1.4 cm hyperenhancing lesion in the left lobe, highly suspicious for hepatocellular carcinoma. Outpatient MRI evaluation is recommended. 4. Findings were discussed with Juliana Moran in the emergency room on 10/07/2024 at 12:40 PM. Electronically signed by: Jun Waller MD 10/07/2024 12:39 PM EDT
[2024-10-07 10:03] VITALS: BP 127/84; PULSE 90; O2SAT 99
[2024-10-07 10:07] VITALS: BP 117/61; PULSE 80; RESP 18; O2SAT 94; BMI 27.3
--- NOTE | 2024-10-07 10:13 | ECG_ITS ---
Test Reason : altered Blood Pressure : */* mmHG Vent. Rate : 88 BPM Atrial Rate : 88 BPM P-R Int : 172 ms QRS Dur : 82 ms QT Int : 374 ms P-R-T Axes : 32 12 27 degrees QTcB Int : 452 ms Normal sinus rhythm with sinus arrhythmia Normal ECG When compared with ECG of 17-Jul-2024 09:52, No significant change was found Referred By: Juliana Moran Electronically Signed By: MARCUS LOPES
--- NOTE | 2024-10-07 10:16 | ED.GENADULT ---
HPI - General Adult General Chief complaint: Fall Stated complaint: FALL DOWN 4 STEPS,HIT HEAD,AMS,FRUITY SMELL PER EM Time Seen by Provider: 10/07/24 10:10 Source: patient, family (, daughter), EMS, RN notes reviewed and old records reviewed Mode of arrival: EMS Limitations: no limitations History of Present Illness ED Provider: JULIANA MORAN PA-C HPI narrative: 59 year old male with pmhx significant for T2DM, HLD, HTN, CAD, GERD, CKD, cirrhosis, and depression presents to the ED today via EMS from home for evaluation after fall down 10-11 stairs at home. On arrival to ED, patient endorses all over body pains. He does not recall the fall. He cannot localize any specific area of pain. Presents in cervical collar. His and daughter are at bedside. Patient currently lives with his . Per , patient awoke this morning and attempted to descend the stairs in his home when he fell down the entire flight of stairs. His did not witness this fall however heard it. She reports he lost consciousness. She called EMS who placed patient in cervical collar and transported him to our facility. His and daughter state that patient abuses alcohol. He drinks fairly heavily every day. No hx of etoh withdrawal or withdrawal seizures. He is not on AC. Related Data Home Medications ?Medication ?Instructions ?Recorded ?Confirmed insulin degludec 100 unit/mL (3 20 unit subcut BEDTIME 05/26/20 07/31/24 mL) subcutaneous pen (Tresiba FlexTouch U-100 insulin) insulin lispro 100 unit/mL 1 sliding scale dose subcut TIDAC 05/26/20 07/31/24 subcutaneous pen (Humalog KwikPen (U-100) Insulin) cholecalciferol (vitamin D3) 50 50 mcg PO DAILY 01/01/23 07/31/24 mcg (2,000 unit) tablet empagliflozin 25 mg tablet 25 mg PO QAM 09/14/23 07/31/24 (Jardiance) blood sugar diagnostic (FreeStyle #10 ea 04/28/24 07/31/24 Lite Strips) flash glucose sensor (FreeStyle #1 ea 04/28/24 07/31/24 Bill 2 Sensor kit) lancets 33 gauge (TRUEplus Lancets) #100 ea 04/28/24 07/31/24 pen needle, diabetic 31 gauge x #1,200 ea 04/28/24 07/31/24 3/16 (Sure Comfort Pen Needle) lisinopril 10 mg tablet 10 mg PO DAILY 07/30/24 07/31/24 diclofenac sodium 1 % topical gel 2 g topical BID PRN 09/15/24 eplerenone 50 mg tablet (Inspra) 50 mg PO QAM 09/15/24 meloxicam 7.5 mg tablet 7.5 mg PO DAILY 09/15/24 Previous Rx's ?Medication ?Instructions ?Recorded rifaximin 550 mg tablet 550 mg PO TID 2 weeks #42 tabs 09/14/23 tadalafil 20 mg tablet (Cialis) 20 mg PO .PRN PRN sexual activity 12/31/23 90 days #45 tabs tadalafil 5 mg tablet (Cialis) 5 mg PO DAILY 90 days #90 tabs 12/31/23 cyclobenzaprine 5 mg tablet 5 mg PO TID PRN muscle spasm #10 03/20/24 tabs lidocaine 5 % topical patch 1 patch topical DAILY #15 ea 03/20/24 zinc sulfate 50 mg zinc (220 mg) 50 mg PO QPM #90 caps 04/10/24 capsule metoprolol succinate 25 mg capsule 25 mg PO DAILY #30 ea 07/17/24 sprinkle, ext. release 24 hr thiamine HCl (vitamin B1) 100 mg 100 mg PO TID #90 tabs 08/18/24 tablet vitamin A 3,000 mcg (10,000 unit) 1 cap PO QPM #90 caps 08/18/24 capsule pantoprazole 40 mg tablet,delayed 40 mg PO DAILY #60 tabs 09/15/24 release alirocumab 75 mg/mL subcutaneous See Rx Instructions .Route 10/01/24 pen injector (Praluent Pen) .COMPLEX #2 mL Allergies Allergy/AdvReac Type Severity Reaction Status Date / Time shrimp Allergy Severe Difficulty Verified 10/07/24 10:15 Breathing atorvastatin [ATORVASTATIN] AdvReac Intermediate elevated Verified 10/07/24 10:15 LFTs Review of Systems Review of Systems: Yes all other systems are reviewed and are negative PMFSH Past Medical History Attestation statement: The following information was validated with the patient. Source: old records reviewed and obtained from family (daughter, ) Medical History Diabetes Back pain GERD (gastroesophageal reflux disease) Cirrhosis CAD (coronary artery disease) Palpitations Arthritis Fibromyalgia SALGUERO (nonalcoholic steatohepatitis) Fatty liver Depression Hyperlipidemia, unspecified Type 2 diabetes mellitus with unspecified complications Essential hypertension Atherosclerotic cardiovascular disease Surgical History History of umbilical hernia repair (05/23/24) History of abdominal paracentesis Hx of cholecystectomy History of umbilical hernia repair Hx of endoscopy History of colonoscopy History of ankle surgery Left inguinal hernia (05/04/23) Gallstone Family History Family History Father Diabetes Mother No problems noted. Social History Social History Household Members: Spouse Housing: House Are you a primary livestock caretaker to a significant other at home: No Do you presently have visiting nurse or other home services: No Alcohol intake: current Alcohol intake frequency: 3 or more drinks per day Alcohol type: beer Comment: pt medicated Patient Tobacco Use Status: Current someday Tobacco user Tobacco use type: Cigar Use of substances other than those prescribed or required for medical reasons: Unknown Advance Directives: No Advance Directives Information Provided: Yes service: No Current occupational status: employed Current occupation: [employer] Physical Exam ED Vital Signs: Vital Signs - 24 hr 10/07/24 10:07 10/07/24 10:47 10/07/24 12:00 Temperature 97.2 F Pulse Rate 80 95 Respiratory Rate 18 18 Blood Pressure 117/61 110/47 L Pulse Oximetry 94 95 Oxygen Delivery Method Room Air Room Air 10/07/24 14:03 Temperature 98.8 F Pulse Rate 95 Respiratory Rate 18 Blood Pressure 110/47 L Pulse Oximetry 95 Oxygen Delivery Method Room Air BMI result Body Mass Index 27.3 vital signs stable, satting 95% on RA. General: appears intoxicated Skin: Warm, dry, intact. No rashes or lesions. Head: Normocephalic, atraumatic. EENT: Hearing is intact b/l. Moist mucous membranes.?+subconjunctival hemorrhage noted to left eye. ecchymosis noted to left maxillary region. ttp. no palpable deformity. EOMs intact without entrapment. PERRLA. dried blood noted to left nare. no septal hematoma. Neck: +in cervical collar Cardiac: Chest wall symmetric. RRR. ttp along left lateral/ posterior chest wall without palpable deformity. Lungs: Normal respiratory effort without accessory muscle use. CTA bilaterally. no adventitious breath sounds.? Abdomen: obese abdomen, distended, non-tender. No rebound tenderness or guarding. Positive BS x4. Back: no midline spinous or paraspinal tenderness. No step off deformity. Ext: Upper and lower extremities atraumatic, without tenderness, deformity, swelling or erythema. pelvis stable. Full ROM throughout. Neuro: AOx2 (person, place). Strength 5/5 intact throughout. No saddle anesthesia. Sensation intact to light touch. NV intact distally. ambulation Course Course Course Narrative: 1310 -- CBC showing leukocytosis to 13.2. No left shift. Chemistry without acute electrolyte abnormality requiring intervention. Random glucose 143. AST elevated at 59, ALT 19, alk phos 175. Total CK 281. No concern for acute rhabdo. Lipase WNL. ethanol 404. > I received critical call from Radiology. CT head does not demonstrate acute intracranial bleed. There are minimally displaced fractures of the anterior and posterior wall of the left maxillary sinus extending into the left pterygium Dayne plate. There is a minimally displaced fracture of the left orbital bone without extraconal fat herniation. There is mild diastasis of the left frontozygomatic suture in the left lateral orbit and there is blood within the left maxillary sinus. CT cervical spine without acute cervical fracture or subluxation. Chest CT showing multiple acute fractures involving the posterior aspect of the left 3rd through 7th ribs and the lateral aspect of the left 4th through 6th ribs. Cirrhosis of the liver with a 1.4 cm hyperenhancing lesion in the left lobe concerning for HHC. Recommending outpatient MRI for further evaluation. > given multiple traumatic rib and facial fractures, he requires transfer to trauma facility. I spoke with trauma physician Dr. Sigala at [facility] who has accepted patient transfer to ED/ trauma. > discussed results with patient and daughter at bedside. patient is alert, able to understand the severity of the situation. he is agreeable to transfer. > I discussed scans with radiologist dr. walter - no concern for pneumothorax or hemothorax at this time. Patient is satting 94% on room air. Will place him on 2L O2 for comfort. > morphine provided for pain in the meantime Medications Administered Discontinued Medications Generic Name Dose Route Start Last Admin Trade Name Kim PRN Reason Stop Dose Admin Iohexol 100 ml 10/07/24 12:20 10/07/24 12:21 Iohexol 350 Mg/Ml 100 Ml Infus..Btl IV 10/07/24 12:21 85 ml ONCE ONE Administration Morphine Sulfate 4 mg 10/07/24 12:48 10/07/24 13:00 Morphine Sulfate 4 Mg/Ml Cartridge IVPUSH 10/07/24 12:49 4 mg ONCE ONE Administration Protocol Medical Decision Making Medical Decision Making MDM Narrative: 59 year old male with pmhx significant for T2DM, HLD, HTN, CAD, GERD, CKD, cirrhosis, and depression presents to the ED today via EMS from home for evaluation after fall down 10-11 stairs at home. vitals are stable. satting 94% on RA. on exam, subconjunctival hemorrhage noted to left eye. ecchymosis noted to left maxillary region. ttp. no palpable deformity. dried blood noted to left nare. no septal hematoma. EOMs intact without entrapment. PERRLA. symmetric rise/fall of chest. ttp of left lateral chest wall without palpable deformity or crepitus. normal lung sounds. in cervical collar. no midline spinous tenderness or step off. moving all extremities. sensation intact to light touch throughout. Differential diagnosis includes facial fracture, blow out fracture, cervical fracture or subluxation, skull fracture, hematoma, intracranial bleed, intra-abdominal bleed, intra-thoracic bleed, rib fracture, etoh abuse, etoh intoxication Given unwitnessed fall down a flight of stairs in conjunction with acute etoh intoxication - plan for trauma peres scans. Screening labs, ekg, UA ordered. Will continue to monitor. Differential Diagnosis Differential Diagnoses: The differential diagnosis associated with the presentation includes as above. Admission/Observation Consideration of admission/observation: Escalation of care including admission/observation considered patient transferred to [facility] - trauma/ ED (dr. sigala) Consult Healthcare Provider Management of the patient was discussed with: Food Service Associate trauma physician - dr. sigala Lab Data [facility] [place] Lab Attestation statement: I reviewed the patient's lab results. as above. 10/07/24 11:09 10/07/24 11:09 Labs: Lab Results 10/07/24 10/07/24 Range/Units 11:09 13:03 WBC 13.2 H (4.8-10.8) X10*3/uL RBC 5.07 (4.60-5.80) X10*6/uL Hgb 13.5 L (14.0-18.0) g/dl Hct 41.5 L (42.0-52.0) % MCV 81.9 (80.0-98.0) fL MCH 26.6 L (27.0-33.0) pg MCHC 32.5 (31.0-36.0) g/dl RDW 15.0 (11.0-16.0) % Plt Count 275 D (160-400) X10*3/uL MPV 9.4 (9.4-12.4) fL Immature Gran % (Auto) 1.4 H (0.0-0.4) % Neut % (Auto) 63.0 (45-73) % Lymph % (Auto) 28.7 (20-40) % [place] % (Auto) 4.7 (2-11) % Eos % (Auto) 1.4 (0-4) % Baso % (Auto) 0.8 (0-2) % Lymph # (Auto) 3.8 (1.2-4.9) X10*3/uL [place] # (Auto) 0.6 (0.1-1.2) X10*3/uL Eos # (Auto) 0.2 (0.0-0.4) X10*3/uL Baso # (Auto) 0.1 (0.0-0.2) X10*3/uL Abs Immat Gran (auto) 0.18 H (0.00-0.03) X10*3/uL Absolute Neuts (auto) 8.3 (2.0-8.3) x10*3/uL Absolute Nucleated RBC 0.000 (0.0-0.012) X10*3/uL Nucleated RBC % (auto) 0.0 (0.0-0.2) /100WBC PT 13.3 H (10.9-12.4) SEC INR 1.1 (0.9-1.1) Sodium 134 L (135-145) mmol/L Potassium 4.5 (3.3-5.1) mmol/L Chloride 98 (96-108) mmol/L Carbon Dioxide 17 L (22-29) mmol/L Anion Gap 24 H (12-20) BUN 15 (9-16) mg/dL Creatinine 0.94 (0.5-1.4) mg/dL Estim Creat Clear Calc 87.3 Estimated GFR > 60 Random Glucose 143 H (60-115) mg/dL Calcium 9.4 (8.4-10.2) mg/dL Magnesium 2.2 (1.6-2.6) mg/dL Total Bilirubin 0.8 (0.0-1.0) mg/dL AST 59 H (5-37) U/L ALT 19 (0-40) U/L Alkaline Phosphatase 175 H (39-117) U/L Total Creatine Kinase 281 H (38-174) U/L Total Protein 7.9 (6.5-8.0) g/dL Albumin 4.0 (3.5-5.0) g/dL Lipase 27 (8-78) U/L Urine Color Yellow Urine Appearance Clear Urine pH 5.5 (5.0-9.0) Ur Specific [place] 1.025 (1.005-1.025) Urine Protein 30 (1+) H (Neg-Trace) mg/dL Urine Glucose (UA) >=1000 H (Negative) mg/dL Urine Ketones 15 (Negative) mg/dL Urine Blood Moderate (2+) H (Negative) Urine Nitrite Negative (Negative) Ur Leukocyte Esterase Negative (Negative) Urine RBC 0-2 (0-2) /HPF Urine WBC 0-5 (0-5) /HPF Ur Squamous Epith Cells 0-2 (0-2) /HPF Urine Bacteria None Seen (None Seen) Hyaline Casts 3-5 (0-2) /LPF Ethyl Alcohol 404 H* mg/dL Independent Interpretation I performed an independent interpretation of an: CT Scan Interpretation: ct head/brain without intracranial bleed ct cervical spine without cervical fracture ct chest with multiple left sided rib fractures, no hemothorax ct abdomen without intra-abdominal bleed Radiology Impression Discussion of test interpretation with radiology: I have reviewed the radiologist's reading. Radiologist Impression: EXAMINATION: CT HEAD WITHOUT CONTRAST CLINICAL INFORMATION: Altered mental status, fall, unknown head strike. COMPARISON: None available. TECHNIQUE: Contiguous axial imaging was performed from the skull base to vertex without intravenous administration of contrast. This CT examination was performed using dose optimization techniques as appropriate, variously including the following: *Automated exposure control *Adjustment of mA and/or kV according to patient size (this includes techniques or standardized protocols for targeted exams where dose is matched to indication/reason for exam; i.e. extremities or head) *Use of iterative reconstruction technique FINDINGS: There is no evidence of intracranial hemorrhage or extra-axial fluid collection. There is no mass effect, or edema. No CT evidence of acute territorial infarct. Ventricles, sulci, and cisterns are normal in size and configuration for patient age. No hydrocephalus. No midline shift. Negative hyperdense MCA sign. Negative insular ribbon sign. Patchy periventricular and deep white matter hypoattenuation is consistent with mild small vessel ischemic changes. Globes and orbital contents image normally. No pre or post septal abnormalities. No extracranial soft tissue abnormalities. There is high attenuation fluid opacification of left maxillary sinus, consistent with blood. The mastoids and tympanic cavities are normally aerated. No calvarial fracture. There is a minimally displaced fracture of the anterior and posterior wall of the left maxillary sinus. This extends into the left pterygoid plate. There is a minimally displaced fracture of the left orbital floor without fat herniation. There is mild diastases of the left frontozygomatic suture. Severe degenerative arthritis left TM joint. CT/CT head/brain wo IV con IMPRESSION: 1. No acute intracranial pathology. No calvarial fracture. 2. There are minimally displaced fractures of the anterior and posterior wall of the left maxillary sinus. This extends into the left pterygoid plate. 3. There is a minimally displaced fracture of the left orbital floor without extraconal fat herniation. 4. There is mild diastases of the left frontozygomatic suture in the left lateral orbit. 5. There is blood within the left maxillary sinus. Electronically signed by: Billy Mcneill MD 10/07/2024 12:36 PM EDT RP Procedure(s): CT cervical spine wo IV con Accession Number(s): [id number] cc: Flora Santiago SPECIAL DELIV[employer] MAIL CARRIER; Juliana Moran~ Report Number: [id number]: Total DLP = 588.00 mGy-cm EXAMINATION: CT CERVICAL SPINE WITHOUT CONTRAST CLINICAL INFORMATION: Status post fall. COMPARISON: None available. TECHNIQUE: Contiguous axial images through the cervical spine using 3 mm collimation with bone and soft tissue algorithm. Sagittal and coronal reformatted images acquired. This CT examination was performed using dose optimization techniques as appropriate, variously including the following: *Automated exposure control *Adjustment of mA and/or kV according to patient size (this includes techniques or standardized protocols for targeted exams where dose is matched to indication/reason for exam; i.e. extremities or head) *Use of iterative reconstruction technique DLP: 588.43 mg centimeter. FINDINGS: Craniocervical junction is intact. Degenerative changes in the periodontal C1 region. Marginal osteophyte formation and decreased intervertebral disc height and endplate sclerosis C4-5 C5-6 and to a lesser extent C6-7 levels. C1 is intact. C2 is intact. C3 is intact. C4 is intact. C5 is intact. C6 is intact. C7 is intact. No prevertebral compartment hematoma. Tiny gas bubbles in the right lateral central spinal canal at C4-5 level likely degenerative in nature possibly related to disc osteophyte complex formation versus right subarticular foraminal disc herniation. Acute displaced fracture of the posterior aspect of the left third rib. Possibly lung contusion and or hemothorax left upper lung/left upper hemithorax. Acute displaced fractures in all vein the left maxillary sinus wall. Degenerative changes with volume loss and subchondral cyst formation left temporomandibular joint. CT/CT cervical spine wo IV con IMPRESSION: Multilevel cervical spondylosis C3 C6 without acute fracture or trauma-related listhesis. Acute comminuted fractures, left maxillary sinus wall. Acute displaced rib fractures posterior left third rib with likely associated lung contusion and possibly hemothorax Fleischner guidelines were followed. Electronically signed by: Parish Colon MD 10/07/2024 12:28 PM EDT Procedure(s): CT chest w IV con Accession Number(s): [id number] cc: Flora Santiago; Juliana Moran~ Report Number: [id number]: Total DLP = 456.00 mGy-cm EXAMINATION: CT ABDOMEN PELVIS WITH IV CONTRAST, CT CHEST WITH IV CONTRAST INDICATION: fall hx limited unknown down time COMPARISON: Comparison is made with the prior chest CT dated 07/17/[address] of the abdomen and pelvis dated 03/20/2024.. TECHNIQUE: CT scan of the chest, abdomen and pelvis was performed following administration of 85 mL Omnipaque 350 using standard departmental protocol. Coronal and sagittal reformatted images were generated and reviewed. Oral contrast material was not administered at the request of the referring physician. This CT exam was performed with one or more of the following dose reduction techniques: automated exposure control, adjustment of the mA and/or kV according to patient size, use of iterative reconstruction technique. DLP: 1439 mGy-cm CHEST: THYROID: The thyroid is unremarkable. LUNGS: There is mild dependent atelectasis bilaterally. MEDIASTINUM: There is mild infiltration of the anterior mediastinal fat which could represent a small amount of hemorrhage. No contrast extravasation is seen. LAI: There is no hilar lymphadenopathy. CARDIOVASCULATURE: The heart is normal in size. There is no pericardial effusion. The thoracic aorta is normal in caliber. DEGREE OF CORONARY CALCIFICATION: moderate PLEURA: There is no pleural effusion. No pneumothorax. MAIN AIRWAYS: The mainstem bronchi and proximal branches are patent. AXILLA: There is no axillary lymphadenopathy. SOFT TISSUES: Unremarkable. BONES: There are multiple old healed right rib fractures. There are acute fractures involving the posterior aspects of the left 3rd through 7th ribs and the lateral aspects of the left 4th through 6th ribs. ABDOMEN: LIVER: The liver demonstrates a nodular contour, consistent with cirrhosis. There is a 1.4 cm hyperenhancing lesion in the left lobe of the liver. The hepatic and portal veins are patent. GALLBLADDER / BILE DUCTS: The gallbladder is surgically absent. There is no intra or extrahepatic biliary ductal dilatation. SPLEEN: The spleen is normal in size. No focal splenic lesion is identified. PANCREAS: The pancreas is unremarkable in appearance. ADRENAL GLANDS: Within normal limits. KIDNEYS/RETROPERITONEUM: No renal calculi are identified. There is no hydronephrosis. No renal masses are identified. LYMPH NODES: No abdominal or pelvic lymphadenopathy. VASCULATURE: The abdominal aorta is normal in caliber. MESENTERY/PERITONEUM: No free fluid. No masses. There is no free intraperitoneal gas. STOMACH: The stomach is unremarkable. SMALL BOWEL: The small bowel is normal in caliber. COLON: The colon is unremarkable. APPENDIX: Normal. URINARY BLADDER/PELVIC ORGANS: The urinary bladder is unremarkable. The prostate is normal in size. BONES / SOFT TISSUES: There is degenerative disc disease of the spine. CT/CT chest w IV con IMPRESSION: 1. Multiple acute fractures involving the left ribs as described. 2. Infiltration of the fat of the anterior mediastinum may represent a small amount of hemorrhage. No contrast extravasation is seen to suggest active bleeding. 3. Cirrhosis of the liver. 1.4 cm hyperenhancing lesion in the left lobe, highly suspicious for hepatocellular carcinoma. Outpatient MRI evaluation is recommended. 4. Findings were discussed with Juliana Moran in the emergency room on 10/07/2024 at 12:40 PM. Date of Service: 10/07/24 Procedure(s): CT abdomen pelvis w IV con Accession Number(s): [id number] cc: Flora SantiagoP; Juliana Moran PA~ Report Number: [id number]: Total DLP = 997.00 mGy-cm EXAMINATION: CT ABDOMEN PELVIS WITH IV CONTRAST, CT CHEST WITH IV CONTRAST INDICATION: fall hx limited unknown down time COMPARISON: Comparison is made with the prior chest CT dated 07/17/[address] of the abdomen and pelvis dated 03/20/2024.. TECHNIQUE: CT scan of the chest, abdomen and pelvis was performed following administration of 85 mL Omnipaque 350 using standard departmental protocol. Coronal and sagittal reformatted images were generated and reviewed. Oral contrast material was not administered at the request of the referring physician. This CT exam was performed with one or more of the following dose reduction techniques: automated exposure control, adjustment of the mA and/or kV according to patient size, use of iterative reconstruction technique. DLP: 1439 mGy-cm CHEST: THYROID: The thyroid is unremarkable. LUNGS: There is mild dependent atelectasis bilaterally. MEDIASTINUM: There is mild infiltration of the anterior mediastinal fat which could represent a small amount of hemorrhage. No contrast extravasation is seen. LAI: There is no hilar lymphadenopathy. CARDIOVASCULATURE: The heart is normal in size. There is no pericardial effusion. The thoracic aorta is normal in caliber. DEGREE OF CORONARY CALCIFICATION: moderate PLEURA: There is no pleural effusion. No pneumothorax. MAIN AIRWAYS: The mainstem bronchi and proximal branches are patent. AXILLA: There is no axillary lymphadenopathy. SOFT TISSUES: Unremarkable. BONES: There are multiple old healed right rib fractures. There are acute fractures involving the posterior aspects of the left 3rd through 7th ribs and the lateral aspects of the left 4th through 6th ribs. ABDOMEN: LIVER: The liver demonstrates a nodular contour, consistent with cirrhosis. There is a 1.4 cm hyperenhancing lesion in the left lobe of the liver. The hepatic and portal veins are patent. GALLBLADDER / BILE DUCTS: The gallbladder is surgically absent. There is no intra or extrahepatic biliary ductal dilatation. SPLEEN: The spleen is normal in size. No focal splenic lesion is identified. PANCREAS: The pancreas is unremarkable in appearance. ADRENAL GLANDS: Within normal limits. KIDNEYS/RETROPERITONEUM: No renal calculi are identified. There is no hydronephrosis. No renal masses are identified. LYMPH NODES: No abdominal or pelvic lymphadenopathy. VASCULATURE: The abdominal aorta is normal in caliber. MESENTERY/PERITONEUM: No free fluid. No masses. There is no free intraperitoneal gas. STOMACH: The stomach is unremarkable. SMALL BOWEL: The small bowel is normal in caliber. COLON: The colon is unremarkable. APPENDIX: Normal. URINARY BLADDER/PELVIC ORGANS: The urinary bladder is unremarkable. The prostate is normal in size. BONES / SOFT TISSUES: There is degenerative disc disease of the spine. CT/CT abdomen pelvis w IV con IMPRESSION: 1. Multiple acute fractures involving the left ribs as described. 2. Infiltration of the fat of the anterior mediastinum may represent a small amount of hemorrhage. No contrast extravasation is seen to suggest active bleeding. 3. Cirrhosis of the liver. 1.4 cm hyperenhancing lesion in the left lobe, highly suspicious for hepatocellular carcinoma. Outpatient MRI evaluation is recommended. 4. Findings were discussed with Juliana Moran in the emergency room on 10/07/2024 at 12:40 PM. Independent Historian Clinical information obtained from an independent historian. History obtained from or confirmed by: Spouse (), EMS and Other (daughter) External Record Review External record reviewed: Inpatient record Prescription Management I considered prescription management with: Pain Medication Social Determinants Patient?s care significantly limited by Social Determinants of Health including: Other Social Determinant of Health Critical Care Time Critical Care Time Critical Care Time: Yes Total Critical Care Time: 50 Attestation: Critical care time in the amount of 50 minutes has been provided to the patient in terms of direct patient care, frequent reevaluation, consultation with [facility] trauma, review and interpretation of medical data and results, and management of potentially life-threatening conditions. This is all outside of any medical procedures. Discharge Plan Discharge Clinical Impression: Multiple rib fractures involving four or more ribs, Hepatic lesion, Cirrhosis of liver, Orbital floor fracture, Closed fracture of left maxillary sinus Patient Disposition: [facility] Transfer Details: [facility] ER - accepting dr. sigala Prescriptions: No Action zinc sulfate 50 mg zinc (220 mg) capsule 50 mg PO QPM Qty: 90 1RF thiamine HCl (vitamin B1) 100 mg tablet 100 mg PO TID Qty: 90 3RF vitamin A 3,000 mcg (10,000 unit) capsule 1 cap PO QPM Qty: 90 1RF Praluent Pen 75 mg/mL pen injector See Rx Instructions .ROUTE .COMPLEX Qty: 2 3RF Dose Instruction: INJECT 75 MG (1 PEN) SUBCUTANEOUSLY EVERY 2 WEEKS. ROTATE INJECTION SITES Rx Instructions: INJECT 75 MG (1 PEN) SUBCUTANEOUSLY EVERY 2 WEEKS. ROTATE INJECTION SITES metoprolol succinate 25 mg capsule,sprinkle,ER 24hr 25 mg PO DAILY Qty: 30 0RF lidocaine 5 % adhesive patch,medicated 1 patch topical DAILY Qty: 15 0RF Rx Instructions: leave on most painful area for up to 12 hrs cyclobenzaprine 5 mg tablet 5 mg PO TID PRN (Reason: muscle spasm) Qty: 10 0RF insulin lispro [Humalog KwikPen Insulin] 100 unit/mL insulin pen 1 sliding scale dose subcut TIDAC Tresiba FlexTouch U-100 100 unit/mL (3 mL) insulin pen 20 unit subcut BEDTIME cholecalciferol (vitamin D3) 50 mcg (2,000 unit) tablet 50 mcg PO DAILY tadalafil [Cialis] 5 mg tablet 5 mg PO DAILY 90 Days Qty: 90 1RF Rx Instructions: [id number] [facility] [id number] Member [id number] tadalafil [Cialis] 20 mg tablet 20 mg PO .PRN PRN (Reason: sexual activity) 90 Days Qty: 45 0RF Rx Instructions: administer approximately 30min before sexual activity; do not use more than 1 dose per 24hrs [id number] [facility] [id number] Member [id number] meloxicam 7.5 mg tablet 7.5 mg PO DAILY eplerenone [Inspra] 50 mg tablet 50 mg PO QAM diclofenac sodium 1 % gel 2 g topical BID PRN pantoprazole 40 mg tablet,delayed release (DR/EC) 40 mg PO DAILY Qty: 60 1RF Jardiance 25 mg tablet 25 mg PO QAM rifaximin 550 mg tablet 550 mg PO TID 14 Days Qty: 42 0RF lisinopril 10 mg tablet 10 mg PO DAILY (DME) FreeStyle Bill 2 Sensor Kit See Rx Instructions .ROUTE Q2W Qty: 1 Rx Instructions: As directed (DME) lancets [TRUEplus Lancets] 33 gauge misc See Rx Instructions .ROUTE TID Qty: 100 Rx Instructions: As directed (DME) pen needle, diabetic [Sure Comfort Pen Needle] 31 gauge x 3/16 needle See Rx Instructions .ROUTE QID Qty: 1200 Rx Instructions: As directed (DME) FreeStyle Lite Strips Strip See Rx Instructions .ROUTE TID Qty: 10 Rx Instructions: As directed Interventions: Acute Care Transfer Worksheet (ED) Last Done: 10/07/24 14:03 Discharge Date/Time: 10/07/24 14:04 Print Language: Slovak
--- NOTE | 2024-10-07 10:30 | PC.NURSE ---
Arrived from home via EMS. Patient initially declining to respond but able to state that his entire body hurts. Endorses drinking a large amount of etoh last night into this am. PERRLA, left nare with scant amount of bleeding. Arrived with c collar in place, family reports he fell down a flight of stairs this morning. Able to move legs and arms.
[2024-10-07 10:47] VITALS: TEMP 36.2
[2024-10-07 11:13] LABS: MANUAL DIFF FLAG NO
[2024-10-07 11:15] LABS: Basophils Absolute Auto 0.1 X10*3/uL (0.0-0.2); Basophils Percent Auto 0.8 % (0-2); Eosinophils Absolute Auto 0.2 X10*3/uL (0.0-0.4); Eosinophils Percent Auto 1.4 % (0-4); Hematocrit 41.5 % (42.0-52.0); Hemoglobin 13.5 g/dl (14.0-18.0); Imm Gran Abs Auto 0.18 X10*3/uL (0.00-0.03); Imm Gran Pct Auto 1.4 % (0.0-0.4); Lymphocytes Absolute Auto 3.8 X10*3/uL (1.2-4.9); Lymphocytes Percent Auto 28.7 % (20-40); Mean Corpuscular HGB Conc 32.5 g/dl (31.0-36.0); Mean Corpuscular Hemoglobin 26.6 pg (27.0-33.0); Mean Corpuscular Volume 81.9 fL (80.0-98.0); Mean Platelet Volume 9.4 fL (9.4-12.4); Monocytes Absolute Auto 0.6 X10*3/uL (0.1-1.2); Monocytes Percent Auto 4.7 % (2-11); Neutrophils Absolute Auto 8.3 x10*3/uL (2.0-8.3); Platelet Count 275 X10*3/uL (160-400); Red Blood Count 5.07 X10*6/uL (4.60-5.80); White Blood Count 13.2 X10*3/uL (4.8-10.8)
[2024-10-07 11:27] LABS: INTERNATIONAL NORM RATIO 1.1 (0.9-1.1); Prothrombin Time 13.3 SEC (10.9-12.4)
[2024-10-07 11:28] LABS: Ethanol 404 mg/dL
[2024-10-07 11:31] LABS: Alanine Aminotransferase 19 U/L (0-40); Alkaline Phosphatase 175 U/L (39-117); Anion Gap 24 (12-20); Aspartate Amino Transferase 59 U/L (5-37); Bilirubin Total 0.8 mg/dL (0.0-1.0); Blood Urea Nitrogen 15 mg/dL (9-16); Calcium 9.4 mg/dL (8.4-10.2); Carbon Dioxide 17 mmol/L (22-29); Chloride 98 mmol/L (96-108); Creatinine Clr Calc Pharmacy 87.3; Estimated Glomerular Filt Rate > 60; Glucose Random 143 mg/dL (60-115); Lipase 27 U/L (8-78); Magnesium 2.2 mg/dL (1.6-2.6); Potassium 4.5 mmol/L (3.3-5.1); Sodium 134 mmol/L (135-145); Total Protein 7.9 g/dL (6.5-8.0)
[2024-10-07 12:00] VITALS: BP 110/47; PULSE 95; RESP 18; O2SAT 95
[2024-10-07] MEDS: iohexoL 350 MG/ML 100 ML INFUS..BTL IV (12:21)
--- OUTSIDE RECORDS SUMMARY | 2024-10-07 12:27 | XMS_ITS | Encounter Summary ---
Author Organization [email or web address] Address [address] [facility] 7t [place] [address] Care Team Providers Care Hide Buyer Name Role Phone Flora Santiago Primary Care Provider [phone] Sherin Hall RN Unavailable [phone] Juan Jose Deshpande MD Unavailable [phone] Michael Glass MD Unavailable [phone] Demetrius Austin MD Unavailable Harry Garcia MD Unavailable [phone] Jovany Feliciano MD Unavailable Kandi Panda PharmD Unavailable [phone] Angelica Saenz Unavailable Mao Palomino DDS Unavailable [phone] Encounter Details Date Type Department Care Team (Latest Contact Info) Description 01/13/2021 Abstract [facility] CONVERSIONS Dental, Provider, DDS Social [...] Care Team (Late st Contact Info) Description 11/12/2024 9:45 AM EDT Office Visit [facility] MEDICINE [address] [place] [address] Flora Santiago FNP [address] [place] [address] 12/22/2024 9:30 AM EDT Medication Management [facility] MEDICINE [address] [place] [address] Kandi Panda PharmD [address] [place] [address] 12/24/2024 8:00 AM EDT Office Visit [facility] ADULT DENTAL [address] [place] [address] Dany, Angelica [address] [place] [address] documented as of this encounter Visit Diagnoses Not on filedocumented in this encounter Care Teams Hide Buyer Relationship Specialty Start Date End Date Flora Santiago FNP [address] [place] [address] PCP - General Family Medicine 05/02/21 Sherin Hall, RN [address] [place] [address] Portable Canteen Operator Family Medicine 07/30/23 Juan Jose Deshpande MD [address] [place] [address] Nephrology 06/13/24 Michael Glass MD [address] [place] [address] Dr 3rd [place] [address] General Surgery 06/13/24 Demetrius Austin MD [address] [place] [address] Orthopaedic Surgery 06/13/24 Harry Garcia MD [address] [place] [address] Gastroenterology 06/13/24 Jovany Feliciano MD [address] [facility] [address] 3rd [place] [address] Cardiology 06/13/24 Kandi Panda PharmD [address] [place] [address] Pharmacist Internal Medicine 08/18/24 Angelica Saenz [address] [place] [address] Dental Hygienist Dental Production Control Pegboard Clerk 08/20/24 Mao Palomino DDS [address] [place] [address] Dentist Dental Production Control Pegboard Clerk 08/20/24 documented as of this encounter
--- OUTSIDE RECORDS SUMMARY | 2024-10-07 12:27 | XMS_ITS | Encounter Summary ---
Author Organization [employer] Address [address] [facility] 7t [place] [address] Care Team Providers Care Bindery Library Technical Assistant Name Role Phone Flora Santiago RECREATION THERAPY DIRECTOR Primary Care Provider [phone] Sherin Hall RN Unavailable [phone] Juan Jose Deshpande MD Unavailable [phone] Michael Glass MD Unavailable [phone] Demetrius Austin MD Unavailable Harry Garcia MD Unavailable [phone] Jovany Feliciano MD Unavailable [phone] Kandi Panda PharmD Unavailable Angelica Saenz Unavailable Mao Palomino DDS Unavailable [phone] Encounter Details Date Type Department Care Team (Late st Contact Info) Description 05/25/2023 Abstract [facility] MEDICINE [address] [place] [address] Debi Zamora Social History Tobacco Use Types [...] Description 11/12/2024 9:45 AM EDT Office Visit [facility] MEDICINE [address] [place] [address] Flora Santiago, RECREATION THERAPY DIRECTOR [address] [place] [address] 12/22/2024 9:30 AM EDT Medication Management [facility] MEDICINE [address] [place] [address] Kandi Panda, PharmD [address] [place] [address] 12/24/2024 8:00 AM EDT Office Visit [facility] ADULT DENTAL [address] [place] [address] Dany, Angelica [address] [place] [address] documented as of this encounter Procedures Procedure Name Priority Date/Time Associated Diagnosis Comments COLONOSCOPY Routine 03/17/2021 documented in this encounter Results * Hm Colonoscopy (03/17/2021) Colonoscopy Normal Normal Narrative Debi Zamora - 03/17/2021 Repeat in 5 years tubular adenoma us Historical Provider HEALTH MAINTENANCE Final Result documented in this encounter Visit Diagnoses Not on filedocumented in this encounter Care Teams Bindery Library Technical Assistant Relationship Specialty Start Date End Date Folra Santiago FNP [address] [place] [address] PCP - General Family Medicine 05/02/21 Sherin Hall, RN [address] [place] [address] Bar Assistant Family Medicine 07/30/23 Juan Jose Deshpande MD [address] [place] [address] Nephrology 06/13/24 Michael Glass MD [address] [place] [address] Dr [address] [place] [address] General Surgery 06/13/24 Demetrius Austin MD [address] [place] [address] Orthopaedic Surgery 06/13/24 Harry Garcia MD [address] [place] [address] Gastroenterology 06/13/24 Jovany Feliciano MD [address] [place] [address] Cardiology 06/13/24 Kandi Panda PharmD [address] [place] [address] Pharmacist Internal Medicine 08/18/24 Angelica Saenz [address] [place] [address] Dental Hygienist Dental Data Support Specialist 08/20/24 Mao Palomino DDS [address] [place] [address] Dentist Dental Data Support Specialist 08/20/24 documented as of this encounter
--- OUTSIDE RECORDS SUMMARY | 2024-10-07 12:27 | XMS_ITS | Encounter Summary ---
Author Organization [employer] Address [address] [facility] 7t [place] [address] Care Team Providers Care Circulation Analyst Name Role Phone Flora Santiago DRAFTER AUTOMOTIVE DESIGN Primary Care Provider [phone] Sherin Hall RN Unavailable [phone] Juan Jose Deshpande MD Unavailable [phone] Michael Glass MD Unavailable [phone] Demetrius Austin MD Unavailable Harry Garcia MD Unavailable Jovany Feliciano MD Unavailable Kandi Panda PharmD Unavailable Angelica Saenz Unavailable Mao Palomino DDS Unavailable [phone] Encounter Details Date Type Department Care Team (Late st Contact Info) Description 10/04/2022 Orders Only [facility] CHC MED & PEDS [address] [place], [place] [phone] Shahnaz Perez LPN Social History Tobacco Use [...] Description 11/12/2024 9:45 AM EDT Office Visit [facility] MEDICINE [address] [place] [address] Flora Santiago FNP [address] [place] [address] 12/22/2024 9:30 AM EDT Medication Management [facility] MEDICINE [address] [place] [address] Kandi Panda PharmD [address] [place] [address] 12/24/2024 8:00 AM EDT Office Visit [facility] ADULT DENTAL [address] [place] [address] Dallin Saenzaris [address] [place] [address] documented as of this encounter Visit Diagnoses Not on filedocumented in this encounter Care Teams Circulation Analyst Relationship Specialty Start Date End Date Flora Santiago FNP [address] [place] [address] PCP - General Family Medicine 05/02/21 Sherin Hall, MICHELLE [address] [place] [address] Emergency Department Rn Family Medicine 07/30/23 Juan Jose Deshpande MD [address] [place] [address] Nephrology 06/13/24 Michael Glass MD [address] [place] [address] Dr [address] [place] [address] General Surgery 06/13/24 Demetrius Austin MD [address] [place] [address] Orthopaedic Surgery 06/13/24 Harry Garcia MD [address] [place] [address] Gastroenterology 06/13/24 Jovany Feliciano MD [address] 3rd [place] [address] Cardiology 06/13/24 Kandi Panda PharmD [address] [place] [address] Pharmacist Internal Medicine 08/18/24 Angelica Saenz [address] [place] [address] Dental Hygienist Dental Produce Laborer 08/20/24 Mao Palomino DDS [address] [place] [address] Dentist Dental Produce Laborer 08/20/24 documented as of this encounter
--- OUTSIDE RECORDS SUMMARY | 2024-10-07 12:27 | XMS_ITS | Clinical Summary ---
Author Organization [facility] Address [address] [place] [address] [place] [address] Phone Care Team Providers Care Route Delivery Supervisor Name Role Phone Unavailable Primary Care Provider [...] age to complete this topic [place]
--- OUTSIDE RECORDS SUMMARY | 2024-10-07 12:27 | XMS_ITS | Encounter Summary ---
Author Organization [employer] Address [address] [facility] 7t [place] [address] Care Team Providers Care Systems Architect Name Role Phone Flora Santiago Primary Care Provider Sherin Hall RN Unavailable Juan Jose Deshpande MD Unavailable [phone] Michael Glass MD Unavailable [phone] Demetrius Austin MD Unavailable Harry Garcia MD Unavailable [phone] Jovany Feliciano MD Unavailable Kandi Panda PharmD Unavailable [phone] Angelica Saenz Unavailable Mao Palomino DDS Unavailable Encounter Details Date Type Department Care Team (Late st Contact Info) Description 02/15/2023 Telephone [facility] MEDICINE [address] [place] [address] Flora Santiago FNP [address] [place], [place] [phone] Social History Tobacco Use Types Packs/Day Years [...] call from sarah. Please contact pt at [phone] (Uzbek) documented in this encounter Plan of Treatment Upcoming Encounters Date Type Department Care Team (Late st Contact Info) Description 11/12/2024 9:45 AM EDT Office Visit [facility] MEDICINE [address] [place] [address] Flora Santiago FNP [address] [place] [address] 12/22/2024 9:30 AM EDT Medication Management [facility] MEDICINE [address] [place] [address] Kandi Panda, RobertD [address] [place] [address] 12/24/2024 8:00 AM EDT Office Visit [facility] ADULT DENTAL [address] [place] [address] Dany, Angelica [address] [place] [address] documented as of this encounter Visit Diagnoses Not on filedocumented in this encounter Care Teams Systems Architect Relationship Specialty Start Date End Date Flora Santiago FNP [address] [place] [address] PCP - General Family Medicine 05/02/21 Sherin Hall, MICHELLE [address] [place] [address] Elevator Inspector Family Medicine 07/30/23 Juan Jose Deshpande MD [address] [place] [address] Nephrology 06/13/24 Michael Glass MD [address] [place] [address] General Surgery 06/13/24 Demetrius Austin MD [address] [place] [address] Orthopaedic Surgery 06/13/24 Harry Garcia MD [address] [place] [address] Gastroenterology 06/13/24 Jovany Feliciano MD [address] [place] [address] Cardiology 06/13/24 Kandi Panda PharmD [address] [place] [address] Pharmacist Internal Medicine 08/18/24 Angelica Saenz [address] [place] [address] Dental Hygienist Dental Director Utilization Management 08/20/24 Mao Palomino DDS [address] [place] [address] Dentist Dental Director Utilization Management 08/20/24 documented as of this encounter
--- OUTSIDE RECORDS SUMMARY | 2024-10-07 12:27 | XMS_ITS | Encounter Summary ---
Author Organization [employer] Address [address] [facility] 7t [place] [address] Care Team Providers Care Urban And Regional Planner Name Role Phone Flora Santiago TRIAL MANAGEMENT ASSOCIATE Primary Care Provider [phone] Sherin Hall RN Unavailable [phone] Juan Jose Deshpande MD Unavailable [phone] Michael Glass MD Unavailable [phone] Demetrius Austin MD Unavailable Harry Garcia MD Unavailable [phone] Jovany Feliciano MD Unavailable Kandi Panda PharmD Unavailable [phone] Angelica Saenz Unavailable Mao Palomino DDS Unavailable [phone] Encounter Details Date Type Department Care Team (Late st Contact Info) Description 07/14/2022 Orders Only [facility] CHC MED & PEDS [address] [place], [place] [phone] Shahnaz Perez LPN Social History Tobacco Use [...] 11/12/2024 9:45 AM EDT Office Visit [facility] MEDICINE [address] [place] [address] Flora Santiago FNP [address] [place] [address] 12/22/2024 9:30 AM EDT Medication Management [facility] MEDICINE [address] [place] [address] Kandi Panda PharmD [address] [place] [address] 12/24/2024 8:00 AM EDT Office Visit [facility] ADULT DENTAL [address] [place] [address] Angelica Saenz [address] [place] [address] documented as of this encounter Visit Diagnoses Not on filedocumented in this encounter Care Teams Urban And Regional Planner Relationship Specialty Start Date End Date Flora Santiago FNP [address] [place] [address] PCP - General Family Medicine 05/02/21 Sherin Hall, RN [address] [place] [address] Screedman/Laborer Family Medicine 07/30/23 Juan Jose Deshpande MD [address] [place] [address] Nephrology 06/13/24 Michael Glass MD [address] [place] [address] Dr 3rd [place] [address] General Surgery 06/13/24 Demetrius Austin MD [address] [place] [address] Orthopaedic Surgery 06/13/24 Harry Garcia MD [address] [place] [address] Gastroenterology 06/13/24 Jovany Feliciano MD [address] [place] [address] Cardiology 06/13/24 Kandi Panda, Fredrick [address] [place] [address] Pharmacist Internal Medicine 08/18/24 Angelica Saenz [address] [place] [address] Dental Hygienist Dental Radiological Metallurgist 08/20/24 Mao Palomino DDS [address] [place] [address] Dentist Dental Radiological Metallurgist 08/20/24 documented as of this encounter
--- OUTSIDE RECORDS SUMMARY | 2024-10-07 12:27 | XMS_ITS | Encounter Summary ---
Author Organization [employer] Address [address] [place] [address] 7t [place] [address] Care Team Providers Care Seasoning Sprayer Name Role Phone VaneGustavo minale MARINE MAMMAL TRAINER Primary Care Provider [phone] Sherin Hall RN Unavailable [phone] Juan Jose Desphande MD Unavailable [phone] Michael Glass MD Unavailable [phone] Demetrius Austin MD Unavailable Harry Garcia MD Unavailable [phone] Jovany Feliciano MD Unavailable Kandi Panda PharmD Unavailable [phone] Angelica Saenz Unavailable Mao Palomino DDS Unavailable [phone] Reason for Referral * Consultation (Routine) - Authorized Specialty Diagnoses / Procedures Referred By Contac t Referred To Contact Pharmacy Diagnoses Type 2 diabetes mellitus with hyperglycemia, with long-term current use of insulin ([facility]) Divya Amos MD [address] [place] [address] Phone: tel: fax: Referral ID Status Reason Start Date Expiration Date Visits Requested Visits Authorized [id number] Authorized Consult and Treat 06/11/2024 06/11/2025 6 6 Encounter Details Date Type Department Care Team (Late st Contact Info) Description 06/11/2024 Orders Only [facility] MEDICINE [address] [place], [place] [phone] Divya Amos MD [address] [place] [address] Type 2 diabetes mellitus with hyperglycemia, with long-term current use of insulin ([facility]) (Primary Dx) Social History Tobacco Use Types [...] the past 12 months, has t he [employer], gas, oil or water company threatened to [...] Description 11/12/2024 9:45 AM EDT Office Visit [facility] MEDICINE [address] [place] [address] Flora Santiago FNP [address] [place] [address] 12/22/2024 9:30 AM EDT Medication Management [facility] MEDICINE [address] [place] [address] Kandi Panda PharmD [address] [place] [address] 12/24/2024 8:00 AM EDT Office Visit [facility] ADULT DENTAL [address] [place] [address] DanyAngelica [address] [place] [address] Scheduled Referrals Name Type Priority Associated Diagnoses Orde r Schedule Referral to Pharmacy CDTM Outpatient Referral Routine Type 2 diabetes mellitus with hyperglycemia, with long-term current use of insulin ([facility]) Ordered: 06/11/2024 documented as of this encounter Goals Goal Patient Goal Type Associated Problems Recent Progress Patient-Stated? Author Blood Pressure < 140/90 Blood Pressure 126/64(2024 11:00 AM EDT) No Jose Maria Novak Hemoglobin A1c < 7 Result Component 7.4( 11:00 AM EDT) No Jose Maria Novak documented as of this encounter Visit Diagnoses Diagnosis Type 2 diabetes mellitus with hyperglycemia, with long-term current use of insulin ([facility])- Primary documented in this encounter Additional Health Concerns Assessment Noted Time PHQ-9 Depression Total Score: 0 11/30/19 24 11:07 AM EDT documented as of this encounter Care Teams Seasoning Sprayer Relationship Specialty Start Date End Date Flora Santiago FNP [address] [place] [address] PCP - General Family Medicine 05/02/21 Sherin Hall RN [address] [place], [place] [address]sharon [place] [address] Golf Sales Manager Family Medicine 07/30/23 Juan Jose Deshpande MD [address] [place] [address] Nephrology 06/13/24 Michael Glass MD [address] [place] [address] Dr [address] [facility] [place] [address] General Surgery 06/13/24 Demetrius Austin MD [address] [place] [address] Orthopaedic Surgery 06/13/24 Harry Garcia MD [address] [facility] [address] [place] [address] Gastroenterology 06/13/24 Jovany Feliciano MD [address] [facility] [address] [place] [address] Cardiology 06/13/24 Kandi Panda PharmD [address] [place], [place] [address]sh[address] [facility] [place] [address] Pharmacist Internal Medicine 08/18/24 Angelica Saenz [address] [place] [address] Dental Hygienist Dental Hand Ironer 08/20/24 Mao Palomino DDS [address] [place] [address] Dentist Dental Hand Ironer 08/20/24 documented as of this encounter
--- OUTSIDE RECORDS SUMMARY | 2024-10-07 12:27 | XMS_ITS | Encounter Summary ---
Author Organization [employer] Address [address] [facility] 7t [place] [address] Care Team Providers Care Psychologist Developmental Name Role Phone Flora Santiago Primary Care Provider Sherin Hall RN Unavailable [phone] Juan Jose Deshpande MD Unavailable [phone] Michael Glass MD Unavailable [phone] Demetrius Austin MD Unavailable Harry Garcia MD Unavailable [phone] Jovany Feliciano MD Unavailable Kandi Panda PharmD Unavailable Angelica Saenz Unavailable Mao Palomino DDS Unavailable [phone] Reason for Visit * Reason Onset Date Comments ER Follow-up 12/19/2022 Encounter Details Date Type Department Care Team (Late st Contact Info) Description 12/19/2022 Telephone [facility] MEDICINE [address] [place] [address] Flora Santiago FNP [address] [place], [place] [phone] ER Follow-up Social History Tobacco Use Types [...] - 12/20/2022 12:22 PM EDT T/C to [phone] through [employer] id - [id number] to schedule HDF , No answer. LVM to call back on [phone]. * Telephone Encounter - Elizabeth Call - 12/19/2022 3:14 PM EDT Tc from pt requesting a HDF appt. Pt was admitted at [facility] [place]22 and discharged on 12/10/22 due to hernia by belly button, lower back pain, liver and left hip pain. Patient advised will forward to team documented in this encounter Plan of Treatment Upcoming Encounters Date Type Department Care Team (Late st Contact Info) Description 11/12/2024 9:45 AM EDT Office Visit [facility] MEDICINE [address] [place] [phone] Flora Santiago FNP [address] [place] [address] 12/22/2024 9:30 AM EDT Medication Management [facility] MEDICINE [address] [place] [address] Kandi Panda PharmD [address] [place] [address] 12/24/2024 8:00 AM EDT Office Visit [facility] ADULT DENTAL [address] [place] [address] Angelica Saenz [address] [place] [address] documented as of this encounter Visit Diagnoses Not on filedocumented in this encounter Care Teams Psychologist Developmental Relationship Specialty Start Date End Date Flora Santiago FNP [address] [place] [address] PCP - General Family Medicine 05/02/21 Sherin Hall, RN [address] [place] [address] Insurance Writer Family Medicine 07/30/23 Juan Jose Deshpande MD [address] [place] [address] Nephrology 06/13/24 Michael Glass MD [address] [place] [address] Dr [address] [place] [address] General Surgery 06/13/24 Demetrius Austin MD [address] [place] [address] Orthopaedic Surgery 06/13/24 Harry Garcia MD [address] [place] [address] Gastroenterology 06/13/24 Jovany Feliciano MD [address] [place] [address] Cardiology 06/13/24 Kandi Panda PharmD [address] [place] [address] [phone] Pharmacist Internal Medicine 08/18/24 Angelica Saenz [address] [place], [place] [phone] Dental Hygienist Dental Pc Technician 08/20/24 Mao Palomino DDS [address] [place], [place] [phone] Dentist Dental Pc Technician 08/20/24 documented as of this encounter
--- OUTSIDE RECORDS SUMMARY | 2024-10-07 12:27 | XMS_ITS | Encounter Summary ---
Author Organization [employer] Address [address] [facility] 7t [place] [address] Care Team Providers Care Torpedo Worker Name Role Phone Flora Santiago Primary Care Provider [phone] Sherin Hall RN Unavailable [phone] Juan Jose Deshpande MD Unavailable [phone] Michael Glass MD Unavailable [phone] Demetrius Austin MD Unavailable Harry Garcia MD Unavailable [phone] Jovany Feliciano MD Unavailable Kandi Panda PharmD Unavailable Angelica Saenz Unavailable Mao Palomino DDS Unavailable [phone] Encounter Details Date Type Department Care [...] Care Team ( st Contact Info) Description 11/12/2024 9:45 AM EDT Office Visit [facility] MEDICINE [address] [place] [address] Flora Santiago FNP [address] [place] [address] 12/22/2024 9:30 AM EDT Medication Management [facility] MEDICINE [address] [place] [address] Kandi Panda PharmD [address] [place] [address] 12/24/2024 8:00 AM EDT Office Visit [facility] ADULT DENTAL [address] [place] [address] Dany Angelica [address] [place] [address] documented as of this encounter Visit Diagnoses Not on filedocumented in this encounter Care Teams Torpedo Worker Relationship Specialty Start Date End Date Flora Santiago FNP [address] [place] [address] PCP - General Family Medicine 05/02/21 Sherin Hall, RN [address] [place] [address] Respiratory Therapy Aide Family Medicine 07/30/23 Juan Jose Deshpande MD [address] [place] [address] Nephrology 06/13/24 Michael Glass MD [address] [place] [address] Dr 3[address] [place] [address] General Surgery 06/13/24 Demetrius Austin MD [address] [place] [address] Orthopaedic Surgery 06/13/24 Harry Garcia MD [address] [place] [address] Gastroenterology 06/13/24 Jovany Feliciano MD [address] [place] [address] Drive 3rd [place] [address] Cardiology 06/13/24 Kandi Panda PharmD [address] [place] [address] Pharmacist Internal Medicine 08/18/24 Angelica Saenz [address] [place] [address] Dental Hygienist Dental Glue Machine Operator 08/20/24 Mao Palomino DDS [address] [place] [address] Dentist Dental Glue Machine Operator 08/20/24 documented as of this encounter
--- OUTSIDE RECORDS SUMMARY | 2024-10-07 12:27 | XMS_ITS | Encounter Summary ---
Author Organization [employer] Address [address] [facility] 7t [place] [address] Care Team Providers Care Desktop Support Associate Name Role Phone Flora Santiago Primary Care Provider Sherin Hall RN Unavailable [phone] Juan Jose Deshpande MD Unavailable [phone] Michael Glass MD Unavailable [phone] Demetrius Austin MD Unavailable Harry Garcia MD Unavailable [phone] Jovany Feliciano MD Unavailable Kandi Panda PharmD Unavailable Angelica Saenz Unavailable Mao Palomino DDS Unavailable [phone] Reason for Visit * Reason Onset Date Comments Returning Call Back 12/19/2022 Encounter Details Date Type Department Care Team (Late st Contact Info) Description 12/19/2022 Telephone [facility] MEDICINE [address] [place] [address] Flora Santiago FNP [address] [place], [place] [phone] Returning Call Back Social History Tobacco Use [...] Miscellaneous Notes * Telephone Encounter - Elizabeth Jakub - 12/19/2022 3:12 PM EDT Tc from patient returning call back, regarding message below. Please call patient after 3 pm after work. documented in this encounter Plan of Treatment Upcoming Encounters Date Type Department Care Team (Late st Contact Info) Description 11/12/2024 9:45 AM EDT Office Visit [facility] MEDICINE [address] [place] [address] Flora Santiago FNP [address] [place] [address] 12/22/2024 9:30 AM EDT Medication Management [facility] MEDICINE [address] [place] [address] Kandi Panda PharmD [address] [place] [address] 12/24/2024 8:00 AM EDT Office Visit [facility] ADULT DENTAL [address] [place] [address] Dany, Angelica [address] [place] [address] documented as of this encounter Visit Diagnoses Not on filedocumented in this encounter Care Teams Desktop Support Associate Relationship Specialty Start Date End Date Flora Santiago FNP [address] [place] [address] PCP - General Family Medicine 05/02/21 Sherin Hall, MICHELLE [address] [place] [address] Health And Safety Manager Family Medicine 07/30/23 Juan Jose Deshpande MD [address] [place] [address] Nephrology 06/13/24 Michael Glass MD [address] [facility] [address] [place] [address] General Surgery 06/13/24 Demetrius Austin MD [address] [place] [address] Orthopaedic Surgery 06/13/24 Harry Garcia MD [address] [address] Gastroenterology 06/13/24 Jovany Feliciano MD [address] [address] Cardiology 06/13/24 Kandi Panda PharmD [address] [place] [address] Pharmacist Internal Medicine 08/18/24 Angelica Saenz [address] [place] [address] Dental Hygienist Dental Credit Card Clerk 08/20/24 Mao Palomino DDS [address] [place] [address] Dentist Dental Credit Card Clerk 08/20/24 documented as of this encounter
--- OUTSIDE RECORDS SUMMARY | 2024-10-07 12:28 | XMS_ITS | Encounter Summary ---
Author Organization [employer] Address [address] [facility] 7t [place] [address] Care Team Providers Care Invasive Cardiologist Name Role Phone Flora Santiago Primary Care Provider [phone] Sherin Hall RN Unavailable [phone] Juan Jose Deshpande MD Unavailable [phone] Michael Glass MD Unavailable [phone] Demetrius Austin MD Unavailable Harry Garcia MD Unavailable [phone] Jovany Feliciano MD Unavailable Kandi Panda PharmD Unavailable Angelica Saenz Unavailable Mao Palomino DDS Unavailable [phone] Reason for Visit * Reason Comments Med Refill Encounter Details Date Type Department Care Team (Late st Contact Info) Description 09/10/2024 Refill [facility] [address] [place] [address] Flora Santiago FNP [address] [place], [place] [phone] Social History Tobacco Use Types Packs/Day Years [...] Description 11/12/2024 9:45 AM EDT Office Visit [facility] MEDICINE [address] [place] [address] Flora Santiago, CIARRA [address] [place] [address] 12/22/2024 9:30 AM EDT Medication Management [facility]INE [address] [place] [address] Kandi Panda, PharmD [address] [place] [address] 12/24/2024 8:00 AM EDT Office Visit [facility] ADULT DENTAL [address] [place] [address] Angelica Saenz [address] [place] [address] documented as of this encounter Goals Goal [...] documented as of this encounter Care Teams Invasive Cardiologist Relationship Specialty Start Date End Date Flora Santiago FNP [address] [place] [address] PCP - General Family Medicine 05/02/21 Sherin Hall, MICHELLE [address] [place] [address] Manager Treasury Family Medicine 07/30/23 Juan Jose Deshpande MD [address] [place] [address] Nephrology 06/13/24 Michael Glass MD [address] [place] [address] Dr [address] [place] [address] General Surgery 06/13/24 Demetrius Austin MD [address] [place] [address] Orthopaedic Surgery 06/13/24 Harry Garcia MD [address] [place] [address] Gastroenterology 06/13/24 Jovany Feliciano MD [address] 3rd [place] [address] Cardiology 06/13/24 Kandi Panda, Fredrick [address] [place] [address] Pharmacist Internal Medicine 08/18/24 Angelica Saenz [address] [place] [address] Dental Hygienist Dental Hand Stapler 08/20/24 Mao Palomino DDS [address] [place] [address] Dentist Dental Hand Stapler 08/20/24 documented as of this encounter
--- OUTSIDE RECORDS SUMMARY | 2024-10-07 12:28 | XMS_ITS | Encounter Summary ---
Author Organization [employer] Address [address] [place] [address] 7t [place] [address] Care Team Providers Care Billboard Poster Name Role Phone Flora Santiago MOLECULAR GENETICIST Primary Care Provider [phone] Sherin Hall RN Unavailable [phone] Juan Jose Deshpande MD Unavailable Michael Glass MD Unavailable [phone] Demetrius Austin MD Unavailable Harry Garcia MD Unavailable [phone] Jovany Feliciano MD Unavailable Kandi Panda PharmD Unavailable Angelica Saenz Unavailable Mao Palomino DDS Unavailable [phone] Encounter Details Date Type Department Care Team (Late st Contact Info) Description 02/22/2023 Orders Only [facility] MEDICINE [address] [place], [place] [phone] Yanique Hart MD [address] [place], [place] [phone] Other ascites (Primary Dx) Social History Tobacco [...] Description 11/12/2024 9:45 AM EDT Office Visit [facility] MEDICINE [address] [place] [address] Flora Santiago FNP [address] [place], [place] [phone] 12/22/2024 9:30 AM EDT Medication Management [facility] MEDICINE [address] [place] [address] Kandi Panda PharmD [address] [place] [address] 12/24/2024 8:00 AM EDT Office Visit [facility] ADULT DENTAL [address] [place] [address] Dany, Angelica [address] [place] [address] Scheduled Orders Name Type Priority Associated Diagnoses [...] Primary documented in this encounter Care Teams Billboard Poster Relationship Specialty Start Date End Date Flora Santiago FNP [address] [place] [address] PCP - General Family Medicine 05/02/21 Sherin Hall, RN [address] [place] [address] Procedure Writer Family Medicine 07/30/23 Juan Jose Deshpande MD [address] [place] [address] Nephrology 06/13/24 Michael Glass MD [address] [facility] [address] 3rd [place] [address] General Surgery 06/13/24 Demetrius Austin MD [address] [place] [address] Orthopaedic Surgery 06/13/24 Harry Garcia MD [address] [facility] [address] [place] [address] Gastroenterology 06/13/24 Jovany Feliciano MD [address] [address] Cardiology 06/13/24 Kandi Panda PharmD [address] [place] [address] Pharmacist Internal Medicine 08/18/24 Angelica Saenz [address] [place] [address] Dental Hygienist Dental Piece Marker [employer] 08/20/24 Mao Palomino DDS [address] [place] [address] Dentist Dental Piece Marker [employer] 08/20/24 documented as of this encounter
--- OUTSIDE RECORDS SUMMARY | 2024-10-07 12:28 | XMS_ITS | Clinical Summary ---
Author Organization [employer] Address [address] [place] [address] [address] [place] [address] Care Team Providers Care Regulatory Affairs Assistant Name Role Phone VanekeeleyFlora Primary Care Provider Sherin Hall RN Unavailable [phone] Juan Jose Deshpande MD Unavailable [phone] Michael Glass MD Unavailable [phone] Demetrius Austin MD Unavailable Harry Garcia MD Unavailable [phone] Jovany Feliciano MD Unavailable Kandi Panda PharmD Unavailable [phone] Angelica Saenz Unavailable Mao Palomino DDS Unavailable [phone] Allergies Active Allergy Reactions Criticality Noted Date Comments Atorvastatin High 02/01/2023 Other reaction(s): elevated LFTs Shrimp Extract High 02/01/2023 Other reaction(s): Difficulty Breathing Medications beta carotene (vitamin A) 3 MG (54870 UT) capsule Take 10,000 Units by mouth in the morning. Active zinc sulfate (Zincate) 220 (50 Zn) MG capsule Take 50 mg of elemental zinc by mouth in the morning. Active thiamine (Vitamin B-1) 100 MG tablet Take 100 mg by mouth 3 times daily. Active Continuous Blood Gluc Facilities Planner (APJeT Bill 2 [place]) device Scan sensor every 8 hours 1 each 023 Active lidocaine (Lidoderm) 5 % patch APPLY 1 PATCH TOPICALLY TO SKIN, LEAVE ON FOR 12 HOURS AND OFF FOR 12 HOURS DIRECTED 30 patch 11 023 Active TRUEplus Lancets 33G miscIndications :Type 2 diabetes mellitus with hyperglycemia, unspecified whether watermelon inspector insulin use ([facility]) TEST BLOOD SUGAR THREE TIMES DAILY 100 each 11 024 Active insulin pen needle (Sure Comfort Pen [place]) 31G x 5 mm misc USE DIRECTED FOUR TIMES DAILY 100 each 11 024 Active ketoconazole (NIZOral) 2 % shampooIndicati ons:Tinea capitis APPLY 5-10 ML TOPICALLY TO WET CLEAN HAIR, LATHER, LEAVE ON FOR 3-5 MINUTES, THEN RINSE. USE EVERY 1-2 WEEKS OR TWICE A WEEK NEEDED 120 mL 1 024 Active Praluent 75 MG/ML injection INJECT 75 MG SUBCUTANEOUSLY EVERY 2 WEEKS. ROTATE INJECTION SITES Active glucose blood (FreeStyle Precision Ric Test) test stripIndication s:Type 2 diabetes mellitus with hyperglycemia, unspecified whether long-term insulin use ([facility]) USE DIRECTED TO TEST BLOOD SUGAR THREE TIMES DAILY 100 each 11 024 Active Inspra 50 MG tablet TAKE 1 TABLET BY MOUTH EVERY MORNING 90 tablet 1 024 Active Continuous Glucose Sensor (FreeStyle Bill 2 Sensor) miscIndications :Type 2 diabetes mellitus with hyperglycemia, with long-term current use of insulin ([facility]) USE DIRECTED CHANGE EVERY 14 DAYS [...] by mouth Once per day. 024 Active lisinopril 10 MG tabletIndicatio ns:Primary hypertension Take 1 tablet (10 mg) by mouth Once per day. 90 tablet 3 025 2025 Active meloxicam (Mobic) 7.5 MG tablet Take 1 tablet (7.5 mg) by mouth 2 times daily. 60 tablet 11 025 2025 Active Continuous Glucose Facilities Planner (FreeStyle Bill 3 [place]) device 1 each Once per day. Use as directed for CGM 1 each Active Continuous Glucose Sensor (FreeStyle Bill 3 Plus Sensor) misc 1 each every 15 days. Apply 1 every 15 days as directed for CGM 2 each Active insulin degludec (Tresiba FlexTouch) 100 UNIT/ML injectionIndica tions:Type 2 diabetes mellitus with hyperglycemia, with long-term current use of insulin ([facility]) INJECT 16 UNITS SUBCUTANEOUSLY AT BEDTIME 15 mL 5 Active insulin lispro (HumaLOG) 100 UNIT/ML injectionIndica tions:Type 2 diabetes mellitus with hyperglycemia, with long-term current use of insulin ([facility]) Inject 20-22 units subcutaneously before each meal up to 3 times a day 15 mL 5 025 Active simethicone (Mylicon) 125 MG chewable tablet Chew 125 mg 3 times daily. PRN 2024 Discontinued(M ed list cleanup (will not trigger notification to Pharmacy)) ezetimibe (Zetia) 10 MG tablet Take 10 mg by mouth in the morning. 024 2024 Discontinued(M ed list cleanup (will not trigger notification to Pharmacy)) Xifaxan 550 MG tablet TAKE 1 TABLET BY MOUTH THREE TIMES DAILY FOR 2 WEEKS 024 2024 Discontinued(M ed list cleanup (will not trigger notification to Pharmacy)) furosemide (Lasix) 20 MG tablet Take 1 tablet (20 mg) by mouth Once per day. 90 tablet 024 2024 Discontinued(M ed list cleanup (will not trigger notification to Pharmacy)) Lancet Device misc 1 each Once daily as needed (to confirm hypoglycmeia). 1 each 025 2024 Discontinued(M ed list cleanup (will not trigger notification to Pharmacy)) insulin degludec (Tresiba FlexTouch) 100 UNIT/ML injectionIndica tions:Type 2 diabetes mellitus with hyperglycemia, with long-term current use of insulin ([facility]) INJECT 14 UNITS SUBCUTANEOUSLY AT BEDTIME 15 mL 5 025 2024 Discontinued(R eorder (will not trigger notification to Pharmacy)) insulin lispro (HumaLOG) 100 UNIT/ML injectionIndica tions:Type 2 diabetes mellitus with hyperglycemia, with long-term current use of insulin ([facility]) Inject 20 Units under the skin with breakfast, with lunch, and with evening meal. 15 mL 5 025 2024 Discontinued(R eorder (will not trigger notification to Pharmacy)) Kapspargo Sprinkle 25 MG 24 hr capsule Take 1 capsule by mouth Once per day. 025 2024 Discontinued(A lternate therapy) Active Problems Problem Noted Date Diagnosed Date Bilateral carpal tunnel syndrome 06/13/2024 Assessment & Plan (06/13/2024 11:47 AM EST): 04/23/24: [facility] Ortho Lisa BROWNE. EMG with impression of bilateral very mild/borderline median neuropathy at the wrist, could still be consistent with CTS. Would like to proceed with surgery. Consider right hand release in the future. Degenerative disc disease, cervical 06/13/2024 Overview (06/13/2024): 05/02/24: MRI cervical spine w/o contrast ordered Dr. Ausitn. 1. Marked degenerative disc disease at C4-C5 and C5-C6 with mild posterior disc protrusions. 2. Marked bilateral C4-C5 and C5-C6 neural foraminal stenosis. 3. Borderline spinal stenosis at C4-C5 and C5-C6. 4. Normal cervical spinal cord. Arthritis of both hands 04/13/2024 Overview (04/13/2024): 09/28/23: XR hands showed mild arthritis of the IP joint of thumb bilateral. Referral to Ortho placed. 02/12/24: [facility] Ortho - PAVAN Castanon. Eval bilat hand pain, numbness, tingling x 1 year. Referred for EMG and nerve conduction study to test nerves of BUE. Cont to monitor left ring finger to see if locking and catching. Non-recurrent unilateral ing uinal hernia without obstruction or gangrene 04/13/2024 Overview (04/13/2024): Left inguinal hernia repair completed in Fall [address] Glass - [facility] Gen Surgery Umbilical hernia without obstruction and without gangrene 04/13/2024 Overview (04/13/2024): Following with [facility] Surgery - Dr. Glass Consult note in Mar 2024 with plan for surgery small periumbilical hernia Reviewed ED precautions Assessment & Plan (04/13/2024 5:17 PM EDT): Speciality clearance for surgery in process Arthralgia of left temporomandibular joint 02/03 Microhematuria 11/30/2023 Overview (04/13/2024): Followed by [facility] Urology - WILL Harris Cytology (2022): benign [...] eating Call to schedule follow up with [facility] Pharmacy CDTM team Last eye exam: 12/09/2020, [...] (08/12/2024 10:06 AM EST): -Previously following with [facility] GI, although transferring to [facility]. -MELD score 8 -Previously completing paracentesis [...] Plan (06/13/2024 11:54 AM EST): -Following with [facility] GI - Dr. Garcia (last consult note [...] Plan (04/13/2024 5:00 PM EDT): -Following with [facility] GI - Dr. Garcia (last consult note [...] Plan (11/30/2023 11:37 AM EDT): -Following with [facility] GI Lisa Garcia -MELD score 8 -Undergoing paracentesis for ascites PRN -Reviewed basic education and lifestyle interventions important for diagnosis of cirrhosis Medications through GI: Eplerenone 50mg daily DC spironolactone (Jun 2023 d/t gynecomastia) Furosemide 20mg daily Rifaximin Following with GI: screening endoscopy, return precautions paracentesis, HCC screening Q6mo (AFP, abd US) Assessment & Plan (06/23/2023 1:58 PM EST): -Following with [facility] GI - Dr. Garcia -Undergoing paracentesis for [...] Plan (03/30/2023 8:49 PM EDT): -Following with [facility] GI - Dr. Garcia -Reports currently scheduled Q2 weeks for paracentesis -Upcoming paracentesis scheduled week of 04/01/23, with plan for f/u with GI week of 04/08/23 -Reviewed basic education and lifestyle interventions important for diagnosis of cirrhosis Medications through GI: ?? Spironolactone 50mg daily ?? Furosemide 20mg daily Assessment & Plan (02/13/2023 5:57 PM EDT): - followed by Dr. Garcia [facility] GI, last seen in December 2022 - urgent follow-up recommended; we will try calling Biliary acute pancreatitis 09/28/2022 Erosive esophagitis 10/04/2021 Renal stone 09/29/2020 Hypertensive disorder 04/08/2015 Assessment & Plan (06/13/2024 11:57 AM EST): Following with [facility] Nephrology (Dr. Deshpande) & [facility] Cards (Dr. Feliciano) Stress test from 2022. [...] Plan (04/13/2024 5:14 PM EDT): Following with [facility] Nephrology (Dr. Deshpande) & [facility] Cards (Dr. Feliciano) Stress test from 2022. Able to exercise 9.2 mets and reached target HR w/o signs of angina. Echo with LVEF 55-60%. Mild aortic stenosis. Lipids: Zetia, Praluent (PCSK9i) Medications: - Continues with lisinopril 10mg daily - Cont furosemide 20-40mg daily (dose adjustments primarily through Nephrology d/t hx hyponatremia and edema) Assessment & Plan (11/30/2023 11:49 AM EDT): Following with [facility] Cards - Dr. Feliciano. Stress test from [...] - Cause/origin likely multifactorial - Following with [facility] Urology - RISK ENGINEER Harirs - Cont Cialis 5mg daily and PRN [...] Encounters Date Type Department Care Team Description 09/22/2024 Telephone [facility]ED[facility] [address] [place] [address] Flora Santiago FNP September09/19/2024 Population Health Risk Score [facility] () Department [address] [phone] Provider, Population Health Generic 09/18/2024 Travel 09/17/2024 Travel 09/10/2024 Refill [facility] [address] [place] [phone] Flora Santiago FNP 09/05/2024 9:20 AM EST Office Visit [facility] WALK[facility] [address] [address] Jeannette Griffin MD Rib pain on right side (Primary Dx) 08/28/2024 Telephone [facility] [address] [place] [address] Elida Gutierrez, MICHELLE Results 08/18/2024 Travel 08/14/2024 Refill [facility] MED[facility] [address] [place] [address] Flora Santiago FNP Routine health maintenance 08/13/2024 Telephone [facility] [address] [place] [phone] Flora Santiago FNP Care Coordination: [facility] 08/13/2024 Orders Only GENERIC EXTERNAL DATA DEPARTMENT Provider, Generic External Data 08/11/2024 11:30 AM EST Telemedicine [facility] MED [facility] [address] [place] [address] Flora Santiago FNP Liver lesion (Primary Dx); Primary hypertension; Cirrhosis of liver with ascites, unspecified hepatic cirrhosis type (CMS/HCC) (CMS/HCC) 08/11/2024 Travel 08/08/2024 Refill [facility] [address] [place] [address] Flora Santiago FNP 08/07/2024 Telephone [facility] [address] [place] [phone] Owen Hughes [place] Chart Prep 07/21/2024 Telephone [facility] MED & PEDS [address] [place] [address] Flora Santiago FNP ED Visit 07/21/2024 Telephone [facility] MED [facility] P[facility] [address] [place] [address] Flora Santiago FNP ER Follow-up 07/17/2024 Orders [...] the past 12 months, has t he [employer], gas, oil or water company threatened to [...] Sign Reading Time Taken Comments Blood Pressure 126/64 09/18/2024 11:00 AM EDT Pulse 71 09/05/2024 9:06 AM EST Temperature [...] Description 11/12/2024 9:45 AM EDT Office Visit [facility] [address] [place] [address] Flora Santiago, CIARRA [address] [place], [place] [phone] 12/22/2024 9:30 AM EDT Medication Management [facility] [address] [place] [address] Kandi Panda, RobertD [address] [place] [address] 12/24/2024 8:00 AM EDT Office Visit [facility] ADULT DENT[facility] [address] [place] [address] Dany, Angelica [address] [place] [address] Health Maintenance Due Date Last Done Comments [...] 0 07/11/2023, 12/20/2022, Additional history exists Diabetes: Urine Protein Screening 10/30/2024 10/31/2023, 06/22/2023, 07/18/2021, Additional history exists Depression Screening 11/29/2024 11/30/2023, 11/30/19 Diabetes: Hemoglobin A1C 12/19/2024 03/2 025, 06/13/2024, 04/11/2024, Additional history exists Influenza Vaccine (#1) 2025 , 08/12/2018, 05/03/2017, Additional history exists Postponed from 03/09/2024 (Patient Refused) Lipid Panel 03/28/2025 03/28/2024, 06/08, 07/18/2021, Additional history exists Alcohol/Substance Use Screening 06/13/2025 06/13/2024 COVID-19 Vaccine ( season) 2025 07/22/2021, 10/30/2020, 10/02/2020 Postponed from 03/09/2024 (Patient Refused) SDOH Screening 06/13/2025 06/13/2024 Tobacco Screening 09/18/2025 09/18/2024 Colonoscopy 03/17/2026 03/17/2021 Colorectal Cancer Screening 03/17/2026 [...] 11:00 AM EDT) No Jose Maria Novak Procedures Procedure Name Priority Date/Time Associated Diagnosis Comments POCT GLYCATED HEMOGLOBIN, TOTAL Routine 09/18/2024 11:00 AM EDT Type 2 diabetes mellitus with hyperglycemia, with long-term current use of insulin (CMS/HCC) XR CHEST 2 VIEWS Routine 09/05/2024 9:25 [...] QL NAAT Routine 07/17/2024 10:12 AM EST HEPATITIS PANEL, GENERAL Routine 04/29/2024 [...] Relevant to Health Maintenance Results * (ABNORMAL) POCT A1C (09/18/2024 11:00 AM EDT) Hemoglobin A1C 7.4(A) 4.0 - 6.0 % QC Media Lot # [id number] Lot# Expiration Date [id number] Blood 09/18/2024 11:0 0 AM EDT us Kandi Panda PharmD POINT OF CARE TEST ENTER/HERNAN T ORDERABLES Final Result * XR Chest 2 Views (09/05/2024 9:25 AM EST) Only the most recent of2 resultswithin the time period is included. Anatomical Region Laterality Modality Chest Radiographic Kandace ging 09/05/2024 9:25 AM EST Narrative 09/05/2024 9:44 AM EST ?[facility] ?[address] ?[place], [place] [address] ?XRay Report ? Signed ? Patient: Jaden,Steven ?MR#: [id number] ?? 2 ? : 1965 ?Acct:[id number] ? Age/Sex: 59 / M ?ADM Date: 09/05/24 ? Loc: HO.HHCX ? Attending Dr: Jeannette Griffin MD ? Ordering Physician: Jeannette Griffin MD ?? Date of Service: 09/05/24 ?? Procedure(s): XR chest 2V ?? Accession Number(s): [id number] ? cc: Jeannette Griffin MD ? EXAMINATION: [...] DD/ 0925 ? TD/TT: 09/05/24 0935 ? Burr Bench Operator: ? Procedure Note Sarah Heller - 09/05/2024 [facility] [address] [facility] [place] [address] XRay Report Signed Patient: Robin Stanley#: [id number] 2 : 1965Acct:[id number] Age/Sex: 59 / MADM Date: 09/05/24 Loc: HO.HHCX Attending Dr: Jeannette Griffin MD Ordering Physician: Jeannette Griffin MD Date of Service: 09/05/24 Procedure(s): XR chest 2V Accession Number(s): [id number] cc: Jeannette Griffin MD EXAMINATION: XR CHEST [...] signed by Billy Mcneill MD in OV> 09/05/24 0941 DD/ 4 TD/TT: 09/05/24 0935 Burr Bench Operator: Jeannette Griffin MD IMG XR PROCEDURES Final Result * (ABNORMAL) CBC auto differential (08/13/2024 11:49 AM EST) Only the most recent of2 resultswithin the time period is included. White Blood Count 11.4(H) 4.8 - 10.8 X10*3/uL [facility] Red Blood Count 5.21 4.60 - 5.80 X10*6/uL [facility] Hemoglobin 14.0 14.0 - 18.0 g/dl [facility] Hematocrit 42.3 42.0 - 52.0 % [facility] Mean Corpuscular Volume 81.2 80.0 - 98.0 fL [facility] Mean Corpuscular Hemoglobin 26.9(L) 27.0 - 33.0 pg [facility] Mean Corpuscular HGB Conc 33.1 31.0 - 36.0 g/dl [facility] Red Cell Distribution Width 13.9 11.0 - 16.0 % [facility] Platelet Count 212 160 - 400 X10*3/uL [facility] Mean Platelet Volume 10.2 9.4 - 12.4 fL [facility] Neutrophils Percent Auto 78.4(H) 45 - 73 % [facility] Imm Gran Pct Auto 0.4 0.0 - 0.4 % [facility] Lymphocytes Percent Auto 11.1(L) 20 - 40 % [facility] Monocytes Percent Auto 9.2 2 - 11 % [facility] Eosinophils Percent Auto 0.5 0 - 4 % [facility] Basophils Percent Auto 0.4 0 - 2 % [facility] NRBC Pct Auto 0.0 0.0 - 0.2 /100WBC [facility] Neutrophils Absolute Auto 8.9(H) 2.0 - 8.3 x10*3/uL [facility] Imm Gran Abs Auto 0.04(H) 0.00 - 0.03 X10*3/uL [facility] Lymphocytes Absolute Auto 1.3 1.2 - 4.9 X10*3/uL [facility] Monocytes Absolute Auto 1.0 0.1 - 1.2 X10*3/uL [facility] Eosinophils Absolute Auto 0.1 0.0 - 0.4 X10*3/uL [facility] Basophils Absolute Auto 0.0 0.0 - 0.2 X10*3/uL [facility] NRBC Abs Auto 0.000 0.0 - 0.012 X10*3/uL [facility] Blood Venous blood specimen / Unknown 08/13/2024 11:49 AM EST 08/13/2024 11:49 AM EST us Flora Santiago FOOD PRODUCTION SUPERVISOR LAB BLOOD ORDERABLES Final Res ult [facility] [address] [place] [phone] * Alpha-Fetoprotein, Tumor Marker (08/13/2024 11:49 AM EST) Pathologist [facility] Alpha Fetoprotein 2.7 <6.1 ng/mL [facility] Comment:This test was perfor med using the Aida Coulterchemiluminescent method. Values obtained fromdifferent assay methods cannot be usedinterchangeably. AFP levels, regardless ofvalue, should not be interpreted as absoluteevidence of the presence or absence of disease.THIS TEST WAS PERFORMED AT:[facility] [place] [phone] GARCIA MD Blood Venous blood specimen / Unknown 08/13/2024 11:49 AM EST 08/13/2024 11:49 AM EST Flora Santiago FOOD PRODUCTION SUPERVISOR LAB BLOOD ORDERABLES Final Res ult Performing Organization Address [facility] Co de Phone Number [facility] [address] [place] [phone] * (ABNORMAL) Immunofixation, Serum (08/13/2024 11:49 AM EST) Pathologist [facility] IMMUNOGLOBULIN G 1318 600 - 1640 mg/dL [facility] IMMUNOGLOBULIN A 1062(A) 47 - 310 mg/dL [facility] Comment:Verified by repeat a nalysis. Immunoglobulin M 195 50 - 300 mg/dL [facility] Comment:THIS TEST WAS PERFOR MED AT:[employer] [address] [phone] GARCIA MD Immunofixation Result SEE NOTE [facility] Comment:No monoclonal protei ns detected. 08/13/2024 11:4 9 AM EST 08/13/2024 11:49 AM EST us Generic External Data Provider LAB BLOOD ORDERAB LES Final Result Performing Organization Address [facility]/ZIP Co de Phone Number [facility] [address] [place] [phone] * (ABNORMAL) Hepatic Function Panel (08/13/2024 11:49 AM EST) Only the most recent of2 resultswithin the time period is included. Bilirubin, Total 1.2(H) 0.0 - 1.0 mg/dL [facility] Bilirubin, Direct 0.5 0.0 - 0.5 mg/dL [facility] Aspartate Amino Transferase 32 5 - 37 U/L [facility] Alanine Aminotransferase 19 0 - 40 U/L [facility] Total Protein 9.1(H) 6.5 - 8.0 g/dL [facility] Albumin Level 4.4 3.5 - 5.0 g/dL [facility] Alkaline Phosphatase 167(H) 39 - 117 U/L [facility] Blood Venous blood specimen / Unknown 08/13/2024 11:49 AM EST 08/13/2024 11:49 AM EST us Flora Santiago FOOD PRODUCTION SUPERVISOR LAB BLOOD ORDERABLES Final Res ult [facility] [address] [place] [phone] [phone] * (ABNORMAL) Basic Metabolic Panel (08/13/2024 11:49 AM EST) Only the most recent of2 resultswithin the time period is included. Sodium 133(L) 135 - 145 mmol/L [facility] Potassium 4.9 3.3 - 5.1 mmol/L [facility] Chloride 98 96 - 108 mmol/L [facility] Carbon Dioxide 23 22 - 29 mmol/L [facility] Anion Gap 17 12 - 20 [facility] Urea Nitrogen (BUN) 17(H) 9 - 16 mg/dL [facility] Creatinine, Serum 1.10 0.5 - 1.4 mg/dL [facility] Estimated Glomerular Filt Rate >60 [facility] Comment:Chronic Kidney Disea se: Estimated GFR < 60 mL/min/1.10d5Pdzvrr Kidney Disease: Estimated GFR < 15 mL/min/1.73m2 Glucose 296(H) 60 - 115 mg/dL [facility] Calcium 9.8 8.4 - 10.2 mg/dL [facility] 08/13/2024 11:4 9 AM EST 08/13/2024 11:49 AM EST us Generic External Data Provider LAB BLOOD ORDERAB LES Final Result Performing Organization Address [facility] Co de Phone Number [facility] [address] [place] [phone] * (ABNORMAL) Urinalysis Complete (08/13/2024 11:43 AM EST) Color Urine Yellow [facility] Appearance Urine Clear [facility] PH 5.5 5.0 - 9.0 [facility] Glucose Urine UA >=1000(A) Negative mg/dL [facility] Urine Blood Moderate (2+)(A) Negative [facility] Specific [place] - Urine 1.025 1.005 - 1.025 [facility] Urine Protein Trace Neg-Trace mg/dL [facility] Urine Ketones Negative Negative mg/dL [facility] Nitrite Urine Negative Negative [facility] Leukocyte Esterase Urine Negative Negative [facility] RBC Urine 6-10(A) 0 - 2 /HPF [facility] Urine WBC 0-5 0 - 5 /HPF [facility] Urine Squamous Epithelial Cell 0-2 0 - 2 /HPF [facility] Urine Bacteria None Seen None Seen [facility] Hyaline Casts, Urine 0-2 0 - 2 /LPF [facility] 08/13/2024 11:4 3 AM EST 08/13/2024 12:35 PM EST us Generic External Data Provider LAB URINE ORDERAB LES Final Result Performing Organization Address [facility]/ZIP Co de Phone Number [facility] [address] [place] [address], [place] [phone] * CTA Chest PE Protocal (07/17/2024 6:38 PM EST) Anatomical Region Laterality Modality Body, Chest Computed Tomogra phy 07/17/2024 6:38 PM EST Narrative 07/17/2024 6:41 PM EST ? [facility] ?[address] ?[place] [address] ? CT Scan Report ? Signed with Addenda ? Patient: Stanley,Steven ?MR#: [id number] ?? 2 ? : 1965 ?Acct:[id number] ? Age/Sex: 59 / M ?ADM Date: 07/17/24 ? Loc: HO.ED ? Attending Dr: ? Ordering Physician: Oswaldo Villareal ?? Date of Service: 07/17/24 ?? Procedure(s): CT angio chest PE protocol ?? Accession Number(s): [id number] ? cc: Oswaldo Villareal; Flora Santiago FOOD PRODUCTION SUPERVISOR ? Report Number: ?? [id number]: Total DLP = ??293.00 mGy-cm ?ADDENDUM ?? [...] MD in OV> ?07/17/24 1840 ? DD/ 37 ? TD/TT: 07/17/241837 ? Burr Bench Operator: ? Procedure Note Donema, Sarah - 07/17/[address] [place] [id number] [address] Scan Report Signed with Wendy Patient: Robin Stanley#: [id number] 2 : 1965Acct:[id number] Age/Sex: 59 / MADM Date: 07/17/24 Loc: HO.ED Attending Dr: Ordering Physician: Oswaldo Villareal Date of Service: 07/17/24 Procedure(s): CT angio chest PE protocol Accession Number(s): [id number] cc: Oswaldo Villareal; Flora Santiago [facility] Report Number: [id number]: Total DLP = 293.00 mGy-cm ADDENDUM This [...] OV> 07/17/24 1840 DD/ 37 TD/TT: 07/17/241837 Burr Bench Operator: [facility] External Provider IMG CT PROCEDURES Edited Result - Final * D Dimer High Sensitivity (07/17/2024 5:20 PM EST) D Dimer High Sensitivity 284 NG/ML [facility] Comment:D-DIMER HS REFERENCE RANGENote: Our [...] Provider LAB BLOOD ORDERAB LES Final Result [facility] [address] [place] [phone] * (ABNORMAL) High Sensitivity Troponin I (07/17/2024 1:19 PM EST) Only the most recent of2 resultswithin the time period is included. TROPONIN I HIGH SENSITIVITY 44.5(H) <3.5 - 35.0 ng/L [facility] Comment:The [place] high sens itivity Troponin-I results should beused in conjunction with other diagnostic information suchas ECG, clinical observations and information, and patientsymptoms to aid in the diagnosis of AR. 07/17/2024 1:19 PM EST 07/17/2024 1:22 PM EST us Generic External Data Provider LAB BLOOD ORDERAB LES Final Result [facility] [address] [place] [phone] * SARS-CoV-2 RNA, Influenza A/B, and RSV RNA, Ql NAAT (07/17/2024 10:12 AM EST) Pathologist [facility] Influenza A PCR NEGATIVE Negative [facility] Influenza B PCR NEGATIVE Negative [facility] Resp Syncy Virus RNA Qual PCR NEGATIVE Negative [facility] SARS COV2 PCR NEGATIVE Negative [facility] Comment:All test results mus t [...] use by authorized laboratories.Testing performed on the [employer] GeneXpert utilizingreal-time RT-PCR.All SARS CoV2 and positive influenza A/B results arereported to [facility]. 07/17/2024 10:1 2 AM EST 07/17/2024 10:16 AM EST us Generic External Data Provider LAB MICROBIOLOGY - GENERAL ORDERABLES Final Result Performing Organization Address [facility] de Phone Number [facility] [address] [place] [phone] * B Type Natriuretic Peptide (BNP) (07/17/2024 10:12 AM EST) B Type Natriuretic Peptide 89 <100 pg/mL [facility] Comment:For those patients w ho are being treated with Natrecor(nesiritide, recombinant BNP), BNP testing should beperformed at least two hours post treatment in order toensure that only endogenous levels of BNP are detected. 07/17/2024 10:1 2 AM EST 07/17/2024 10:16 AM EST us Generic External Data Provider LAB BLOOD ORDERAB LES Final Result Performing Organization Address [facility] Phone Number [facility] [address] [place] [phone] * (ABNORMAL) Magnesium (07/17/2024 10:12 AM EST) Magnesium 1.5(L) 1.6 - 2.6 mg/dL [facility] 07/17/2024 10:1 2 AM EST 07/17/2024 10:16 AM EST us Generic External Data Provider LAB BLOOD ORDERAB LES Final Result Performing Organization Address [facility] Co de Phone Number [facility] [address] [place] [address] [phone] * Lipase (07/17/2024 10:12 AM EST) Lipase 52 8 - 78 U/L [facility] 07/17/2024 10:1 2 AM EST 07/17/2024 10:16 AM EST us Generic External Data Provider LAB BLOOD ORDERAB LES Final Result Performing Organization Address [facility]/ZIP Co de Phone Number [facility] [address] [place] [phone] * Hepatitis Panel, General (04/29/2024 12:37 PM EDT) Hepatitis A IgM Nonreactive Nonreactive [facility] Comment:IgM antibodies to RITCHIE V not detected; does not exclude earlyacute or recovered HAV infection. ~Hepatitis B Surface Antibody REACTIVE Nonreactive [facility] Comment:REACTIVE: > 11.99 mI U/mL Hepatitis B Core Antibody Nonreactive Nonreactive [facility] Hepatitis C Antibody GRAYZONE Nonreactive [facility] Comment:Antibodies to HCV ma y or may not be present. Suggest repeatanti-HCV in 4-6 weeks and/or HCV viral load if clinicallyindicated. Hepatitis B Surface Ag Negative Negative [facility] 04/29/2024 12:3 7 PM EDT 04/29/2024 12:39 PM EDT us Generic External Data Provider LAB BLOOD ORDERAB LES Final Result Performing Organization Address [facility] Co de Phone Number [facility] [address] [place] [phone] * Lipid Panel, Standard (03/28/2024 8:52 AM EDT) Triglycerides 90 <150 mg/dL [facility] Comment:Desirable Triglyceri de: less than 150 mg/dLBorderline High Triglyceride 150-199 mg/dLHigh Triglyceride: 200-499 mg/dLVery High Triglyceride: greater than or equal to 5OO mg/dL Cholesterol 187 <200 mg/dL [facility] Comment:Desirable Cholestero l: less than 200 mg/dLBorderline High Cholesterol: 200-239 mg/dLHigh Cholesterol: greater than 239 mg/dL LDL Cholesterol Calculated 64 <100 mg/dL [facility] Comment:Desirable LDL: less than 100 mg/dLNear Optimal/Above Optimal LDL: 110- 129 mg/dLBorderline High LDL: 130-159 mg/dLHigh LDL: 160-189 mg/dLVery High LDL: greater than or equal to 190 mg/dL HDL Cholesterol 105 >40 mg/dL [facility] Comment:Desirable HDL: great er than 40 mg/dL Note: This HDL assay may give artificially low results in patients with liver disease. 03/28/2024 8:52 AM EDT 03/28/2024 8:52 AM EDT Generic External Data Provider LAB BLOOD ORDERAB LES Final Result Performing Organization Address City/[facility]/ZIP Co de Phone Number [facility] [address] [place] [phone] * Creatinine, Random Urine (10/31/2023 12:00 PM EDT) Creatinine, Urine 70.00 mg/dL [facility] 10/31/2023 12:0 0 PM EDT 10/31/2023 12:52 PM EDT Generic External Data Provider LAB URINE ORDERAB LES Final Result Performing Organization Address [facility] Co de Phone Number [facility] [address] [place] [phone] * HIV 1/2 ANTIGEN/ANTIBODY,FOURTH GENERATION W/RFL [...] ? For additional information please refer to http://education.[employer].com/faq/DYQ385 (This link is being provided for informational/ educational purposes only.) ? The performance of this assay has not been clinically validated in patients less than 2 years old. ?? 07/18/2021 9:07 AM EST Flora Santiago FOOD PRODUCTION SUPERVISOR LAB BLOOD ORDERABLES Final Res ult [facility] [address] * Colonoscopy (03/17/2021) Colonoscopy Normal Normal Narrative Debi Zamora - 03/17/2021 Repeat in 5 years tubular adenoma Historical Provider MD HEALTH MAINTENANCE Final Result from Last 3 Months or Most Recently Relevant to Health Maintenance Insurance [employer] C3 [employer] C3 [facility] MEDICAID STAND ADULT GENERIC OTHER Care Teams Regulatory Affairs Assistant Relationship Specialty Start Date End Date Flora Santiago FNP [address] [place] [address] PCP - General Family Medicine 05/02/21 Sherin Hall, RN [address] [place] [phone] Credit Control Manager Family Medicine 07/30/23 Juan Jose Deshpande MD [address] [place] [address] Nephrology 06/13/24 Michael Glass MD [address] [place] [address] [address] [place] [address] General Surgery 06/13/24 Demetrius Austin MD [address] [place] [address] Orthopaedic Surgery 06/13/24 Harry Garcia MD [address] [place] [address] [place] [phone] Gastroenterology 06/13/24 Jovany Feliciano MD [address] [place] [phone] Cardiology 06/13/24 Kandi Panda PharmD [address] [place] [phone] Pharmacist Internal Medicine 08/18/24 Angelica Saenz [address] [place] [phone] Dental Hygienist Dental Escalator Installer 08/20/24 Mao Palomino DDS [address] [place] [phone] Dentist Dental Escalator Installer 08/20/24
[2024-10-07] MEDS: Morphine Sulfate 4 MG/ML CARTRIDGE IVPUSH (13:00)
[2024-10-07 13:12] LABS: Appearance Urine Clear; Color Urine Yellow; Glucose Urine UA >=1000 mg/dL (Negative); Leukocyte Esterase Urine Negative (Negative); Nitrite Urine Negative (Negative); PH 5.5 (5.0-9.0); Specific Gravity - Urine 1.025 (1.005-1.025); UMIC TRIGGER UACC YES; Urine Blood Moderate (2+) (Negative); Urine Ketones 15 mg/dL (Negative); Urine Protein 30 (1+) mg/dL (Neg-Trace)
[2024-10-07 13:21] LABS: Bacteria Urine None Seen (None Seen); RBC Urine 0-2 /HPF (0-2); Squamous Epithelial Cell Urine 0-2 /HPF (0-2); WBC Urine 0-5 /HPF (0-5)
--- NOTE | 2024-10-07 14:02 | PC.NURSE ---
Report given to EMS. Multiple attempts made to call report to [facility] ED, unsuccessful at this time. extrusion die repairer aware, EMS aware report has not yet been given to ED
[2024-10-07 14:03] VITALS: BP 110/47; PULSE 95; RESP 18; TEMP 37.1; O2SAT 95
== END 2024-10-07 14:04 | disposition short-term general hospital (02) ==
PROVIDERS: Physician Assistant Medical; Emergency Provider Emergency Medicine; PCP Registered Nurse
DX: S22.42XA Multiple fractures of ribs, left side, initial encounter for closed fracture (principal); S02.32XA Fracture of orbital floor, left side, initial encounter for closed fracture; S02.40DA Maxillary fracture, left side, initial encounter for closed fracture; W10.8XXA Fall (on) (from) other stairs and steps, initial encounter; K74.60 Unspecified cirrhosis of liver; K76.9 Liver disease, unspecified; F10.90 Alcohol use, unspecified, uncomplicated; Y90.8 Blood alcohol level of 240 mg/100 ml or more; E11.9 Type 2 diabetes mellitus without complications; I10 Essential (primary) hypertension; E78.5 Hyperlipidemia, unspecified; F17.210 Nicotine dependence, cigarettes, uncomplicated; Y93.89 Activity, other specified; Y92.019 Unspecified place in single-family (private) house as the place of occurrence of the external cause; Y99.9 Unspecified external cause status; Z79.4 Long term (current) use of insulin; Z79.899 Other long term (current) drug therapy
CPT/HCPCS: 36415; 70450; 71260; 72125; 74177; 80053; 80307; 81001; 82550; 83690; 83735; 85025; 85610; 93005; 96374; 99285; J2270; Q9967

== ENCOUNTER → 2024-10-07 10:13 | Outpatient (BNV) | payer MEDICAID, SELFPAY | PROVIDERS: Emergency Provider Emergency Medicine; PCP Registered Nurse; Visit Provider Radiology Diagnostic Radiology | DX: S22.42XA Multiple fractures of ribs, left side, initial encounter for closed fracture (principal); K70.30 Alcoholic cirrhosis of liver without ascites; S02.40DA Maxillary fracture, left side, initial encounter for closed fracture; S02.32XA Fracture of orbital floor, left side, initial encounter for closed fracture | CPT/HCPCS: 70450; 71260; 72125; 74177 ==

== ENCOUNTER → 2024-10-07 10:13 | Outpatient (BNV) | payer MEDICAID, SELFPAY | PROVIDERS: Emergency Provider Emergency Medicine; PCP Registered Nurse; Visit Provider Internal Medicine | DX: R41.82 Altered mental status, unspecified (principal) | CPT/HCPCS: 93010 ==

== ENCOUNTER 2024-10-20 12:04 | Outpatient (AMB) | payer MEDICAID, SELFPAY ==
--- NOTE | 2024-10-20 12:14 | A.OFFVIS_ITS ---
Vital Signs 10/20/24 12:15 Height 5 ft 10 in Weight 182 lb 15.739 oz BMI 26.3 BP 139/74 Blood Pressure Location Lt brachial Position Sitting Pulse 98 Intake Visit Reasons: MRI f/u Intake Note: Steven presents in the office as a follow up to his MRI. CC: Here for results of the MRI that was scanned in from [employer]. States that he fell on his stairs 2 weeks ago and he has been having pains ever since. Stomach is okay! Allergies shrimp Allergy (Severe, Verified 10/20/24 12:19) Difficulty Breathing atorvastatin [ATORVASTATIN] Adverse Reaction (Intermediate, Verified 10/20/24 12:19) elevated LFTs HPI HPI MRI f/u: Details: 59 yr old m here for alcohol related cirrhosis f/u (MELD Na--8) RECAP: index visit 10/2019 He did not know why he was referred to liver clinic!! he c/o disocmfort in RUQ, on daily basis he takes gas x and it doens;t help he has nausea, no vomiting but regurgitation appetie is poor, weight is going down, he is scared by that 230# to 170# he also has burning sensation in the stomahc as well denies diarrhea or constipation no dysphagia occ alcohol intake 2-3 beers every 3 weeks no drug use He was admitted 12/2022 with RUQ pain He had Surgical assessment and MRI which did not reveal and gallstones or other biliary path hep c ab pos, but viral load neg 2010 US: 05/2019--diffuse steatosis colonoscopy ?1 yr ago with pleet and nml per his report. I ordered EGD and CT CT--few small renal stones, no acute process EGD: Streaky erosive esophagitis at GEJ, LA grade C He saw cardiology and dx with CAD, did well on stress test, ECHo was ok--medical management US 08/2020 with chronic liver lesion, unchanged, fatty liver, no gallstones Due to ongoing sx of epigastric pain, with gas and bloating, nausea I ordered EGD/colonoscopy 03/2021 Had severe erosive esophagitis, LA grade D, TA removed PPI was increased to 40 mg BID GES also done 02/2021-- no gastroparesis, possible rapid emptying by 2 hrs only 18% left US 04/28 : fatty liver, indeterminate liver lesion, sludge US: 05/29 GB thickening patient had cholecystectomy and umbilical hernia repair 01/2023--having issues with ascotes since then due to decompensation he had CTA 08/02 with 1 cm lesion seen in the liver MRI was done and no HCC< hemangioma noted INTERIM: He fell 2 weeks ago and sore in back and shoulder he was drinking, wine at that time no abdominal swelling no nausea or vomiting no confusion, memory issues EXAM: GENERAL: The patient is relaxed, VITAL SIGNS:see workflow HEENT: Nonicteric sclerae, PERRLA, EOMI. Oropharynx clear. Moist mucous membranes. Conjunctivae appear well perfused. No thyroid mass. CHEST: Chest wall is nontender. HEART: Regular rate and rhythm -ESM / over precordium LUNGS: Clear to auscultation bilaterally. ABDOMEN: Soft, positive bowel sounds,distended abdo, no fluid wave SKIN: No rash, no excessive bruising, petechiae, or purpura. NEUROLOGIC: Cranial nerves II-XII intact without motor/sensory deficit. psych--nml MS: tender shoulders and back Assessments 1. cirrhosis, decompensated now compensated without ascites or HE, CP score is 5, MRI without HCC PLAN 1/ cont PPI for GERD 2/ strongly advised to avoid alcohol can use black coffee, green tea--his falls seem to be related to alcohol intake 3/ egd at future date 4/ HCC screening --repeat in 6 months 5/ can use tyloenol but < 2 g and ice pack and lidocaine pathc which he has [facility] Medical History Diabetes Back pain GERD (gastroesophageal reflux disease) Cirrhosis CAD (coronary artery disease) Palpitations Arthritis Fibromyalgia SALGUERO (nonalcoholic steatohepatitis) Fatty liver Depression Hyperlipidemia, unspecified Type 2 diabetes mellitus with unspecified complications Essential hypertension Atherosclerotic cardiovascular disease Surgical History History of umbilical hernia repair (05/23/24) History of abdominal paracentesis Hx of cholecystectomy History of umbilical hernia repair Hx of endoscopy History of colonoscopy History of ankle surgery Left inguinal hernia (05/04/23) Gallstone Family History Father Diabetes Mother No problems noted. Social History Household Members: Spouse Housing: House Are you a primary pediatric care coordinator to a significant other at home: No Do you presently have visiting nurse or other home services: No Alcohol intake: current Alcohol intake frequency: 3 or more drinks per day Alcohol type: beer Comment: pt medicated Patient Tobacco Use Status: Current someday Tobacco user Tobacco use type: Cigar service: No Current occupational status: employed Current occupation: [employer] Physical Exam Vital Signs: Last Vital Signs Pulse 98 10/20/24 12:15 BP 139/74 10/20/24 12:15 BMI result Body Mass Index 26.3 Assessment & Plan Assessment & Plan (1) Cirrhosis: Code(s): K74.60 - Unspecified cirrhosis of liver Category: Medical Qualifiers: Ascites presence: with ascites Plan: as above Plan as above Coding Level of Care Code Est Pt Level 4 (72831) Diagnoses Cirrhosis K74.60 Ascites presence: with ascites
[2024-10-20 12:15] VITALS: BP 139/74; PULSE 98; BMI 26.3
--- OUTSIDE RECORDS SUMMARY | 2024-10-20 14:07 | XMS_ITS | Clinical Summary ---
Author Organization [facility] Address [address] [place] [address] Phone Care Team Providers Care Vice President Of Advertising Name Role Phone Unavailable Primary Care Provider [...] Colonoscopy 2014 Colorectal Cancer Screening: Sigmoidoscopy 2014 Pneumococcal Vaccine: 50+ Years (1 of 1 - PCV) 015 Diabetes: Hemoglobin A1C 08/09/2020 Diabetes: Ophthalmology Exam 08/09/2020 Diabetes: Pedal Pulse Checked 08/09/2020 Diabetes: Sensory Foot Exam 08/09/2020 Diabetes: Visual Foot Exam 08/09/2020 Influenza Vaccine (Season Ended) 2025 Insurance [place]
--- OUTSIDE RECORDS SUMMARY | 2024-10-20 14:07 | XMS_ITS | Encounter Summary ---
Author Organization [employer] Address [address] [place] [address] 7t [place] [address] Care Team Providers Care Center Receptionist Name Role Phone VaneGustavo minale OTR OWNER OPERATOR TRUCK DRIVER Primary Care Provider [phone] Sherin Hall RN Unavailable [phone] Juan Jose Deshpande MD Unavailable [phone] Michael Glass MD Unavailable [phone] Demetrius Austin MD Unavailable Harry Garcia MD Unavailable [phone] Jovany Feliciano MD Unavailable Kandi Panda PharmD Unavailable [phone] Angelica Saenz Unavailable Mao Palomino DDS Unavailable [phone] Reason for Referral * Consultation (Routine) - Authorized Specialty Diagnoses / Procedures Referred By Contac t Referred To Contact Pharmacy Diagnoses Type 2 diabetes mellitus with hyperglycemia, with long-term current use of insulin ([facility] Divya Amos MD [address] [place] [address] Phone: tel: fax: Referral ID Status Reason Start Date Expiration Date Visits Requested Visits Authorized [id number] Authorized Consult and Treat 06/11/2024 06/11/2025 6 6 Encounter Details Date Type Department Care Team (Late st Contact Info) Description 06/11/2024 Orders Only [facility] MEDICINE [address] [place], [place] [phone] Divya Amos MD [address] [place] [address] Type 2 diabetes mellitus with hyperglycemia, with long-term current use of insulin ([facility]) (Primary Dx) Social History Tobacco Use Types [...] the past 12 months, has t he [employer] gas, oil or water company threatened to [...] 11/12/2024 9:45 AM EDT Office Visit [facility] MEDICINE [address] [place] [address] Flora Santiago FNP [address] [place] [address] 12/22/2024 9:30 AM EDT Medication Management [facility] MEDICINE [address] [place] [address] Kandi Panda PharmD [address] [place] [address] 12/24/2024 8:00 AM EDT Office Visit [facility] ADULT DENTAL [address] [place] [address] DanyAngelica [address] [place] [address] Scheduled Referrals Name Type Priority Associated Diagnoses Orde r Schedule Referral to Pharmacy CDTM Outpatient Referral Routine Type 2 diabetes mellitus with hyperglycemia, with long-term current use of insulin ([facility]) Ordered: 06/11/2024 documented as of this encounter Goals Goal Patient Goal Type Associated Problems Recent Progress Patient-Stated? Author Blood Pressure < 140/90 Blood Pressure 118/74(2024 2:20 PM EDT) No Jose Maria Novak Hemoglobin A1c < 7 Result Component 7.4( 11:00 AM EDT) No Jose Maria Novak documented as of this encounter Visit Diagnoses Diagnosis Type 2 diabetes mellitus with hyperglycemia, with long-term current use of insulin ([facility])- Primary documented in this encounter Additional Health Concerns Assessment Noted Time PHQ-9 Depression Total Score: 0 11/30/19 24 11:07 AM EDT documented as of this encounter Care Teams Center Receptionist Relationship Specialty Start Date End Date Flora Santiago FNP [address] [place] [address] PCP - General Family Medicine 05/02/21 Sherin Hall RN [address] [place], [place] [address]sharon [place] [address] Dwarf Tree Grower Family Medicine 07/30/23 Juan Jose Deshpande MD [address] [place] [address] Nephrology 06/13/24 Michael Glass MD [address] [place] [address] Dr [address] [facility] [place] [address] General Surgery 06/13/24 Demetrius Austin MD [address] [place] [address] Orthopaedic Surgery 06/13/24 Harry Garcia MD [address] [facility] [address] [place] [address] Gastroenterology 06/13/24 Jovany Feliciano MD [address] [place] [address] Cardiology 06/13/24 Kandi Panda PharmD [address] [place], [place] [address]sharon [facility] [place] [address] Pharmacist Internal Medicine 08/18/24 Angelica Saenz [address] [place] [address] Dental Hygienist Dental Marketing Teacher 08/20/24 Mao Palomino DDS [address] [place] [address] Dentist Dental Marketing Teacher 08/20/24 documented as of this encounter
--- OUTSIDE RECORDS SUMMARY | 2024-10-20 14:07 | XMS_ITS | Encounter Summary ---
Author Organization [employer] Address [address] [facility] 7t [place] [address] Care Team Providers Care Running Rigger Name Role Phone Flora Santiago Primary Care Provider [phone] Sherin Hall RN Unavailable [phone] Juan Jose Deshpande MD Unavailable [phone] Michael Glass MD Unavailable [phone] Demetrius Austin MD Unavailable Harry Garcia MD Unavailable [phone] Jovany Feliciano MD Unavailable Kandi Panda PharmD Unavailable [phone] Angelica Saenz Unavailable Mao Palomino DDS Unavailable [phone] Reason for Visit * Reason Onset Date Comments ER Follow-up 12/19/2022 Encounter Details Date Type Department Care Team (Late st Contact Info) Description 12/19/2022 Telephone [facility] [address] [place] [address] Flora Santiago FNP [address] [place], [place] [phone] ER Follow-up Social History Tobacco Use Types [...] - 12/20/2022 12:22 PM EDT T/C to [phone] through [employer] id - [id number] to schedule HDF , No answer. LVM to call back on [phone]. * Telephone Encounter - Elizabeth Call - 12/19/2022 3:14 PM EDT Tc from pt requesting a HDF appt. Pt was admitted at [facility] on 12/09/22 and discharged on 12/10/22 due to hernia by belly button, lower back pain, liver and left hip pain. Patient advised will forward to team documented in this encounter Plan of Treatment Upcoming Encounters Date Type Department Care Team (Late st Contact Info) Description 11/12/2024 9:45 AM EDT Office Visit [facility] [address] [place] [phone] Flora Santiago FNP [address] [place] [address] 12/22/2024 9:30 AM EDT Medication Management [facility] [address] [place] [address] Kandi Panda PharmD [address] [place] [address] 12/24/2024 8:00 AM EDT Office Visit [facility] ADULT D[facility] [address] [place] [address] Angelica Saenz [address] [place] [address] documented as of this encounter Visit Diagnoses Not on filedocumented in this encounter Care Teams Running Rigger Relationship Specialty Start Date End Date Flora Santiago FNP [address] [place] [address] PCP - General Family Medicine 05/02/21 Sherin Hall, RN [address] [place] [address] Deposition Reporter Family Medicine 07/30/23 Juan Jose Deshpande MD [address] [place] [address] Nephrology 06/13/24 Michael Glass MD [address] [place] [address] [address] [place] [address] General Surgery 06/13/24 Demetrius Austin MD [address] [place] [address] Orthopaedic Surgery 06/13/24 Harry Garcia MD [address] [place] [address] Gastroenterology 06/13/24 Jovany Feliciano MD [address] [place] [address] Cardiology 06/13/24 Kandi Panda PharmD [address] [place] [address] [phone] Pharmacist Internal Medicine 08/18/24 Angelica Saenz [address] [place], [place] [phone] Dental Hygienist Dental Parts Back Counter Man 08/20/24 Mao Palomino DDS [address] [place], [place] [phone] Dentist Dental Parts Back Counter Man 08/20/24 documented as of this encounter
--- OUTSIDE RECORDS SUMMARY | 2024-10-20 14:07 | XMS_ITS ---
Author Organization [employer] [facility] Address [address] [facility] 7t [place] [address] Care Team Providers Care Structural Drafter Name Role Phone Flora Santiago Primary Care Provider [phone] Sherin Hall RN Unavailable Juan Jose Deshpande MD Unavailable [phone] Michael Glass MD Unavailable [phone] Demetrius Austin MD Unavailable Harry Garcia MD Unavailable Jovany Feliciano MD Unavailable [phone] Kandi Panda PharmD Unavailable [phone] Angelica Seanz Unavailable Mao Palomino DDS Unavailable [phone] CHW Complex Status:Outreach In Progress (Enrolling) Start date:10/09/2024 Enrollment reason:ADT Feed Overview ADT- Pt admitted to [facility] on 10/08/24. Case Team Name Relationship Phone Swapna Santacruz (Responsible Staff) Continued Care and Services Coordination
--- OUTSIDE RECORDS SUMMARY | 2024-10-20 14:07 | XMS_ITS | Encounter Summary ---
Author Organization [employer] Address [address] [facility] 7t [place] [address] Care Team Providers Care Table Top Tile Setter Name Role Phone Flora Santiago Primary Care Provider [phone] Sherin Hall RN Unavailable [phone] Juan Jose Deshpande MD Unavailable [phone] Michael Glass MD Unavailable [phone] Demetrius Austin MD Unavailable Harry Garcia MD Unavailable [phone] Jovany Feliciano MD Unavailable Kandi Panda PharmD Unavailable Angelica Saenz Unavailable Mao Palomino DDS Unavailable [phone] Encounter Details Date Type Department Care Team (Latest Contact Info) Description 01/24/2019 Abstract [facility] CONVERSIONS Dental, Provider, DDS Social [...] Description 11/12/2024 9:45 AM EDT Office Visit [facility] MEDICINE [address] [place] [address] Flora Santiago FNP [address] [place] [address] 12/22/2024 9:30 AM EDT Medication Management [facility] MEDICINE [address] [place] [address] Kandi Panda PharmD [address] [place] [address] 12/24/2024 8:00 AM EDT Office Visit [facility] ADULT DENTAL [address] [place] [address] Dany Angelica [address] [place] [address] documented as of this encounter Visit Diagnoses Not on filedocumented in this encounter Care Teams Table Top Tile Setter Relationship Specialty Start Date End Date Flora Santiago FNP [address] [place] [address] PCP - General Family Medicine 05/02/21 Sherin Hall, RN [address] [place] [address] Stonemason Apprentice Family Medicine 07/30/23 Juan Jose Deshpande MD [address] [place] [address] Nephrology 06/13/24 Michael Glass MD [address] [place] [address] Dr 3rd [place] [address] General Surgery 06/13/24 Demetrius Austin MD [address] [place] [address] Orthopaedic Surgery 06/13/24 Harry Garcia MD [address] [place] [address] Gastroenterology 06/13/24 Jovany Feliciano MD [address] [place] [address] Drive 3rd [place] [address] Cardiology 06/13/24 Kandi Panda PharmD [address] [place] [address] Pharmacist Internal Medicine 08/18/24 Angelica Saenz [address] [place] [address] Dental Hygienist Dental Americanization Teacher 08/20/24 Mao Palomino DDS [address] [place] [address] Dentist Dental Americanization Teacher 08/20/24 documented as of this encounter
--- OUTSIDE RECORDS SUMMARY | 2024-10-20 14:07 | XMS_ITS | Encounter Summary ---
Author Organization [employer] Address [address] [facility] 7t [place] [address] Care Team Providers Care Advertising Traffic Manager Name Role Phone Flora Santiago Primary Care Provider [phone] Sherin Hall RN Unavailable [phone] Juan Jose Deshpande MD Unavailable [phone] Michael Glass MD Unavailable [phone] Demetrius Austin MD Unavailable Harry Garcia MD Unavailable [phone] Jovany Feliciano MD Unavailable [phone] Kandi Panda PharmD Unavailable Angelica Saenz Unavailable Mao Palomino DDS Unavailable [phone] Encounter Details Date Type Department Care Team (Late st Contact Info) Description 02/15/2023 Telephone [facility] MEDICINE [address] [place] [address] Flora Santiago FNP [address] [place], [place] [phone] Social History Tobacco Use Types Packs/Day Years [...] encounter Miscellaneous Notes * Telephone Encounter - Crsitina Gallardo - 02/15/2023 10:15 AM EDT Tc from pt returning outgoing call from sarah. Please contact pt at [phone] ([place]) documented in this encounter Plan of Treatment Upcoming Encounters Date Type Department Care Team (Late st Contact Info) Description 11/12/2024 9:45 AM EDT Office Visit [facility] MEDICINE [address] [place] [address] Flora Santiago FNP [address] [place] [address] 12/22/2024 9:30 AM EDT Medication Management [facility] MEDICINE [address] [place] [address] Kandi Panda, RobertD [address] [place] [address] 12/24/2024 8:00 AM EDT Office Visit [facility] ADULT DENTAL [address] [place] [address] Dany, Angelica [address] [place] [address] documented as of this encounter Visit Diagnoses Not on filedocumented in this encounter Care Teams Advertising Traffic Manager Relationship Specialty Start Date End Date Flora Santiago FNP [address] [place] [address] PCP - General Family Medicine 05/02/21 Sherin Hall, MICHELLE [address] [place] [address] Cloth Cutter Family Medicine 07/30/23 Juan Jose Deshpande MD [address] [place] [address] Nephrology 06/13/24 Michael Glass MD [address] [facility] [address] [facility] [place] [address] General Surgery 06/13/24 Demetrius Austin MD [address] [place] [address] Orthopaedic Surgery 06/13/24 Harry Garcia MD [address] [place] [address] Gastroenterology 06/13/24 Jovany Feliciano MD [address] [place] [address] Cardiology 06/13/24 Kandi Panda PharmD [address] [place] [address] Pharmacist Internal Medicine 08/18/24 Angelica Saenz [address] [place] [address] Dental Hygienist Dental Client Service Manager 08/20/24 Mao Palomino DDS [address] [place] [address] Dentist Dental Client Service Manager 08/20/24 documented as of this encounter
--- OUTSIDE RECORDS SUMMARY | 2024-10-20 14:07 | XMS_ITS | Clinical Summary ---
Author Organization [employer] Address [address] [place] [address] [address] [place] [address] Care Team Providers Care Media Relations Intern Name Role Phone VanekeeleyFlora Primary Care Provider Sherin Hall RN Unavailable [phone] Juan Jose Deshpande MD Unavailable [phone] Michael Glass MD Unavailable [phone] Demetrius Austin MD Unavailable Harry Garcia MD Unavailable [phone] Jovany Feliciano MD Unavailable Kandi Panda PharmD Unavailable Angelica Saenz Unavailable Mao Palomino DDS Unavailable [phone] Allergies Active Allergy Reactions Criticality Noted Date Comments Atorvastatin High 02/01/2023 Other reaction(s): elevated LFTs Shrimp Extract High 02/01/2023 Other reaction(s): Difficulty Breathing Medications beta carotene (vitamin A) 3 MG (17191 UT) capsule Take 10,000 Units by mouth in the morning. Active zinc sulfate (Zincate) 220 (50 Zn) MG capsule Take 50 mg of elemental zinc by mouth in the morning. Active thiamine (Vitamin B-1) 100 MG tablet Take 100 mg by mouth 2 times daily. Active Continuous Blood Gluc Esl Teacher ([employer] Bill 2 [place]) device Scan sensor every 8 hours 1 each 023 Active lidocaine (Lidoderm) 5 % patch APPLY 1 PATCH TOPICALLY TO SKIN, LEAVE ON FOR 12 HOURS AND OFF FOR 12 HOURS DIRECTED 30 patch 11 023 Active TRUEplus Lancets 33G miscIndications :Type 2 diabetes mellitus with hyperglycemia, unspecified whether computer terminal operator insulin use ([facility]) TEST BLOOD SUGAR THREE TIMES DAILY 100 each 11 024 Active insulin pen needle (Sure Comfort Pen [place]) 31G x 5 mm misc USE DIRECTED [...] diabetes mellitus with hyperglycemia, unspecified whether senior care insulin use ([facility]) USE DIRECTED TO TEST BLOOD SUGAR THREE TIMES DAILY 100 each 11 024 Active Inspra 50 MG tablet TAKE 1 TABLET BY MOUTH EVERY MORNING 90 tablet 1 024 Active Continuous Glucose Sensor (FreeStyle Bill 2 Sensor) miscIndications :Type 2 diabetes mellitus with hyperglycemia, with long-term current use of insulin ([facility]) USE DIRECTED CHANGE EVERY 14 DAYS [...] by mouth 2 times daily. 60 tablet 025 2025 Active Continuous Glucose Sensor (FreeStyle Bill 3 Plus Sensor) misc 1 each every 15 days. Apply 1 every 15 days as directed for CGM 2 each Active insulin degludec (Tresiba FlexTouch) 100 UNIT/ML injectionIndica tions:Type 2 diabetes mellitus with hyperglycemia, with long-term current use of insulin (CMS/[facility]) INJECT 16 UNITS SUBCUTANEOUSLY AT BEDTIME 15 mL Active insulin lispro (HumaLOG) 100 UNIT/ML injectionIndica tions:Type 2 diabetes mellitus with hyperglycemia, with long-term current use of insulin (CMS/[facility]) Inject 20-22 units subcutaneously before each meal up to 3 times a day 15 mL Active pantoprazole (ProtoNix) 40 MG EC tablet Take 1 tablet by mouth Once per day. Active B Complex Vitamins (Vitamin-B Complex) tablet Take 1 tablet by mouth Once per day. Active folic acid (Folvite) 1 MG tablet Take 1 tablet by mouth Once per day. 2024 Active gabapentin (Neurontin) 100 MG capsule Take 1 capsule by mouth every 8 (eight) hours if needed (pain). Active Continuous Glucose Esl Teacher (FreeStyle Bill 3 [place]) device 1 each Once per day. Use as directed for CGM 1 each Active Continuous Glucose Esl Teacher (FreeStyle Bill 3 [place]) device 1 each Once per day. Use as directed for CGM 1 each 2024 Discontinued(R eorder (will not trigger notification to Pharmacy)) amoxicillin-cla vulanate (Augmentin) 875-125 MG tablet Take 1 tablet by mouth 2 times daily. 025 2024 acetaminophen (Tylenol) 325 MG tablet Take 2 tablets by mouth every 8 (eight) hours if needed for mild pain. 025 2024 ibuprofen 400 MG tablet Take 1 tablet by mouth every 8 (eight) hours if needed for moderate pain. 025 2024 Active Problems Problem Noted Date Diagnosed Date Liver lesion 10/19/2024 Assessment & Plan (10/19/2024 4:18 PM EDT): - October 2024: CT abd/pelvis - 1.4 cm hyperenhancing lesion in the left lobe, highly suspicious for hepatocellular carcinoma. Lab Results Component Value Date AFP 2.7 08/13/2024 - Reports completed OP MRI liver and is now pending follow up with GI as scheduled 10/19/24 to review results Bilateral carpal tunnel syndrome 06/13/2024 Assessment & Plan (06/13/2024 11:47 AM EST): 04/23/24: [facility] Holley BROWNE. EMG with impression of bilateral [...] thumb bilateral. Referral to Ortho placed. 02/12/24: [facility] PAVAN Rivas. Eval bilat hand pain, numbness, tingling x 1 year. Referred for EMG and nerve conduction study to test nerves of BUE. Cont to monitor left ring finger to see if locking and catching. Non-recurrent unilateral ing uinal hernia without obstruction or gangrene 04/13/2024 Overview (04/13/2024): Left inguinal hernia repair completed in Fall [address] Glass - [facility] Surgery Umbilical hernia without obstruction and without gangrene 04/13/2024 Overview (04/13/2024): Following with [facility] Surgery - Dr. Glass Consult note in Mar 2024 with plan for surgery small periumbilical hernia Reviewed ED precautions Assessment & Plan (04/13/2024 5:17 PM EDT): Speciality clearance for surgery in process Arthralgia of left temporomandibular joint 02/03 Microhematuria 11/30/2023 Overview (04/13/2024): Followed by [facility] Urology - WILL Harris Cytology (2022): benign [...] eating Call to schedule follow up with [facility] Pharmacy CDTM team Last eye exam: [...] (08/12/2024 10:06 AM EST): -Previously following with [facility] GI, although transferring to [facility]. -MELD score 8 -Previously completing paracentesis [...] Plan (06/13/2024 11:54 AM EST): -Following with [facility] GI - Dr. Garcia (last consult note [...] Plan (04/13/2024 5:00 PM EDT): -Following with [facility] GI - Dr. Garcia (last consult note [...] Plan (11/30/2023 11:37 AM EDT): -Following with [facility] GI - Dr. Garcia -MELD score 8 -Undergoing paracentesis for ascites PRN -Reviewed basic education and lifestyle interventions important for diagnosis of cirrhosis Medications through GI: Eplerenone 50mg daily DC spironolactone (Jun 2023 d/t gynecomastia) Furosemide 20mg daily Rifaximin Following with GI: screening endoscopy, return precautions paracentesis, HCC screening Q6mo (AFP, abd US) Assessment & Plan (06/23/2023 1:58 PM EST): -Following with [facility] GI Lisa Garcia -Undergoing paracentesis for ascites, next currently [...] Plan (03/30/2023 8:49 PM EDT): -Following with [facility] GI - Dr. Garcia -Reports currently scheduled Q2 weeks for paracentesis -Upcoming paracentesis scheduled week of 04/01/23, with plan for f/u with GI week of 04/08/23 -Reviewed basic education and lifestyle interventions important for diagnosis of cirrhosis Medications through GI: ?? Spironolactone 50mg daily ?? Furosemide 20mg daily Assessment & Plan (02/13/2023 5:57 PM EDT): - followed by Dr. Garcia [facility] GI, last seen in December 2022 - urgent follow-up recommended; we will try calling Biliary acute pancreatitis 09/28/2022 Erosive esophagitis 10/04/2021 Renal stone 09/29/2020 Hypertensive disorder 04/08/2015 Assessment & Plan (06/13/2024 11:57 AM EST): Following with [facility] Nephrology (Dr. Deshpande) & [facility] Let (Dr. Feliciano) Stress test from 2022. Able [...] Plan (04/13/2024 5:14 PM EDT): Following with [facility] Nephrology (Dr. Deshpande) & [facility] Cards (Dr. Feliciano) Stress test from 2022. Able to exercise 9.2 mets and reached target HR w/o signs of angina. Echo with LVEF 55-60%. Mild aortic stenosis. Lipids: Zetia, Praluent (PCSK9i) Medications: - Continues with lisinopril 10mg daily - Cont furosemide 20-40mg daily (dose adjustments primarily through Nephrology d/t hx hyponatremia and edema) Assessment & Plan (11/30/2023 11:49 AM EDT): Following with [facility] Cards - Dr. Feliciano. Stress test from [...] - Cause/origin likely multifactorial - Following with [facility] Urology - DEPARTMENT SECRETARY Harris - Cont Cialis 5mg daily and [...] Encounters Date Type Department Care Team Description 10/17/2024 2:00 PM EDT Office Visit [facility] [address] [place] [address] Flora Santiago FNP Closed fracture of multiple ribs of left side with routine healing, subsequent encounter (Primary Dx); Closed fracture of orbital wall with routine healing, subsequent encounter; Hospital discharge follow-up; Liver lesion 10/17/2024 Travel 10/15/2024 Patient Outreach [address] [address] Flora Santiago FNP Care Coordination (C3/CM Outreach) 10/15/2024 Patient Outreach [facility] [address] [place] [address] Flora Santiago FNP 10/14/2024 Patient Outreach [address] [address] Flora Santiago FNP 10/09/2024 Patient Outreach [address] [address] Flora Santiago FNP Care Coordination (Outreach) 10/09/2024 Patient Outreach [address] [address] Flora Santiago FNP Care Coordination (C3/CM Chart Review) 10/09/2024 Patient Outreach [facility] [address] [place] [address] Flora Santiago FNP Care Coordination (C3CM chart review) 10/09/2024 Patient Outreach [address] [address] Flora Santiago FNP 10/09/2024 Patient Outreach [address] [address] Flora Santiago FNP Transition Of Care (Tcm) (HDF scheduled) 10/07/2024 Orders Only [facility] External Provider, [facility] 09/22/2024 Telephone [facility] [address] [place] [address] Flora Santiago FNP March 09/19/2024 Population Health Risk Score Community Care [facility] (C3) Department [address] [place] [phone] Provider, Population Health Generic 09/18/2024 Travel 09/17/2024 Travel 09/10/2024 Refill [facility] [address] [place] [address] Flora Santiago FNP 09/05/2024 9:20 AM EST Office Visit [facility] [address] [place] [phone] Jeannette Griffin MD Rib pain on right side (Primary Dx) 08/28/2024 Telephone [facility] [address] [place] [address] Elida Gutierrez RN Results 08/18/2024 Travel 08/14/2024 Refill [facility] [address] [place] [address] Flora Santiago FNP Routine health maintenance 08/13/2024 Telephone [facility] [address] [place] [phone] Flora Santiago FNP Care Coordination: [facility] 08/13/2024 Orders Only GENERIC EXTERNAL DATA DEPARTMENT Provider, Generic External Data 08/11/2024 11:30 AM EST Telemedicine [facility] [address] [place] [address] Flora Santiago FNP Liver lesion (Primary Dx); Primary hypertension; Cirrhosis of liver with ascites, unspecified hepatic cirrhosis type (CMS/HCC) (CMS/HCC) 08/11/2024 Travel 08/08/2024 Refill [facility] [address] [place] [address] Flora Santiago FNP 08/07/2024 Telephone [facility] [address] [place] [phone] Owen Hughes [place] Chart Prep from Last 3 Months Immunizations Name Administration Dates Next Due Hep A, Adult 08/31/2004,02/29/2004 HepB-CpG 10/17/2024, 5(Deferred: Other - Titer proven immunity),06/21/2023 Influenza Injectable [...] Sign Reading Time Taken Comments Blood Pressure 118/74 10/17/2024 2:20 PM EDT Pulse 85 10/17/2024 2:20 PM EDT Temperature 37.1 ??C (98.7 ??F) 10/17/2024 2:20 PM ED T Respiratory Rate 18 10/17/2024 2:20 PM EDT Oxygen Saturation 99% 10/17/2024 2:20 PM EDT Inhaled Oxygen Concentration - - Weight 87.7 kg (193 lb 4 oz) 10/17/2024 2:20 PM EDT Height 172.7 cm (5' 8 ) 10/17/2024 2:20 PM EDT Body Mass Index 29.38 10/17/2024 2:20 PM EDT Plan of Treatment Upcoming Encounters Date Type Department Care Team (Late st Contact Info) Description 11/12/2024 9:45 AM EDT Office Visit [facility] [address] [place] [address] Flora Santiago, GEOSPATIAL ENGINEER [address] [place] [address] 12/22/2024 9:30 AM EDT Medication Management [facility] [address] [place] [address] Kandi Panda, PharmD [address] [place] [address] 12/24/2024 8:00 AM EDT Office Visit [facility] [address] [place] [address] Angelica Saenz [address] [place] [address] Health Maintenance Due Date Last Done Comments CT Colonography 1965 FIT DNA/Cologuard 1965 FIT 1965 FOBT 1965 Sigmoidoscopy 1965 Diabetes: Foot Exam 1975 Eye Exam 1975 Dental Oral Exam 02/15/2024 08/16/2023, 02/2021, 01/24/2019 Dental X-Ray: Bitewings 07/12/2024 07/11/19 24, 12/20/2022, 01/13/2021, Additional history exists Dental Prophylaxis 08/07/2024 02/04/2024, 0 07/11/2023, 12/20/2022, Additional history exists Diabetes: Urine Protein Screening 10/30/2024 10/31/2023, 06/22/2023, 07/18/2021, Additional history exists Depression Screening 11/29/2024 11/30/2023, 11/30/19 Diabetes: Hemoglobin A1C 12/19/2024 025, 06/13/2024, 04/11/2024, Additional history exists Influenza Vaccine (#1) 2025 , 08/12/2018, 05/03/2017, Additional history exists Postponed from 03/09/2024 (Patient Refused) Lipid Panel 03/28/2025 03/28/2024, 06/08, 07/18/2021, Additional history exists Alcohol/Substance Use Screening 06/13/2025 06/13/2024 COVID-19 Vaccine ( season) 2025 07/22/2021, 10/30/2020, 10/02/2020 Postponed from 03/09/2024 (Patient Refused) SDOH Screening 06/13/2025 06/13/2024 Tobacco Screening 10/17/2025 10/17/2024 Colonoscopy 03/17/2026 03/17/2021 Colorectal Cancer Screening 03/17/2026 [...] C Screening Completed 04/29/2024 , 07/18/2021, 11/07/2019 Hepatitis B Vaccines Completed 10/17/2024, 06/21/20 HIB Vaccines Aged Out No longer eligi [...] Procedure Name Priority Date/Time Associated Diagnosis Comments URINALYSIS, COMPLETE, WITH REFLEX TO CULTURE Routine 10/07/2024 1:[address] CHEST W CONTRAST Routine 10/07/2024 1 1:[address] CERVICAL SPINE WO CONTRAST Routine 10/07/2024 11:[address] ABDOMEN PELVIS W CONTRAST Routine 10/07/2024 10:[address] HEAD WO CONTRAST Routine 10/07/2024 1 0:13 AM EDT POCT GLYCATED HEMOGLOBIN, TOTAL Routine 09/18/2024 11:00 AM EDT Type 2 diabetes mellitus with hyperglycemia, with long-term current use of insulin ([facility]) XR CHEST 2 VIEWS Routine 09/05/2024 9:25 [...] URINALYSIS, COMPLETE Routine 08/13/2024 11:43 AM EST HEPATITIS PANEL, GENERAL Routine 04/29/2024 [...] Relevant to Health Maintenance Results * (ABNORMAL) Urinalysis, Complete, with Reflex to Culture (10/07/2024 1:03 PM EDT) Color Urine Yellow [facility] Appearance Urine Clear [facility] PH 5.5 5.0 - 9.0 [facility] Glucose Urine UA >=1000(A) Negative mg/dL [facility] Urine Blood Moderate (2+)(A) Negative [facility] Specific [place] - Urine 1.025 1.005 - 1.025 [facility] Urine Protein 30 (1+)(A) Neg-Trace mg/dL [facility] Urine Ketones 15 Negative mg/dL [facility] Nitrite Urine Negative Negative [facility] Leukocyte Esterase Urine Negative Negative [facility] RBC Urine 0-2 0 - 2 /HPF [facility] Urine WBC 0-5 0 - 5 /HPF [facility] Urine Squamous Epithelial Cell 0-2 0 - 2 /HPF [facility] Urine Bacteria None Seen None Seen [facility] Hyaline Casts, Urine 3-5 0 - 2 /LPF [facility] 10/07/2024 1:03 PM EDT 10/07/2024 1:06 PM EDT Narrative [facility] - 10/07/2024 1:28 PM EDT Urine, Clean Catch us Generic External Data Provider LAB URINE ORDERAB LES Final Result Performing Organization Address [facility] Co de Phone Number [facility] [address] [place] [phone] * CT Cervical Spine w/o Contrast (10/07/2024 11:43 AM EDT) Anatomical Region Laterality Modality Spine, C-spine Computed Tomogra phy 10/07/2024 11:4 3 AM EDT Narrative 10/07/2024 12:32 PM EDT ? [facility] ?[address] ?[place] [address] ? CT Scan Report ? Signed ? Patient: Stanley,Steven ?MR#: [id number] ?? 2 ? : 1965 ?Acct:[id number] ? Age/Sex: 59 / M ?ADM Date: 04//25 ? Loc: HO.ED ? Attending Dr: ? Ordering Physician: Juliana Moran ?? Date of Service: 10/07/24 ?? Procedure(s): CT cervical spine wo IV con ?? Accession Number(s): [id number] ? cc: Flora SantiagoP; Juliana Moarn ? Report Number: ?? [id number]: Total DLP = ??588.00 mGy-cm ?? EXAMINATION: ?? CT CERVICAL SPINE WITHOUT CONTRAST ? CLINICAL INFORMATION: ?? Status post fall. ? COMPARISON: ?? None available. ? TECHNIQUE: ?? Contiguous axial images through the cervical spine using 3 mm ?? collimation with bone and soft tissue algorithm. ?? Sagittal and coronal reformatted images acquired. ? This CT examination was performed using dose optimization techniques as ?? appropriate, variously including the following: ?? *Automated exposure control ?? *Adjustment of mA and/or kV according to patient size (this includes ?? techniques or standardized protocols for targeted exams where dose is ?? matched to indication/reason for exam; i.e. extremities or head) ?? *Use of iterative reconstruction technique ?? DLP: 588.43 mg centimeter. ? FINDINGS: ?? Craniocervical junction is intact. Degenerative changes in the ?? periodontal C1 region. ?? Marginal osteophyte formation and decreased intervertebral disc height ?? and endplate sclerosis C4-5 C5-6 and to a lesser extent C6-7 levels. ?? C1 is intact. ?? C2 is intact. ?? C3 is intact. ?? C4 is intact. ?? C5 is intact. ?? C6 is intact. ?? C7 is intact. ?? No prevertebral compartment hematoma. Tiny gas bubbles in the right ?? lateral central spinal canal at C4-5 level likely degenerative in ?? nature possibly related to disc osteophyte complex formation versus ?? right subarticular foraminal disc herniation. ? Acute displaced fracture of the posterior aspect of the left third rib. ?? Possibly lung contusion and or hemothorax left upper lung/left upper ?? hemithorax. ?? Acute displaced fractures in all vein the left maxillary sinus wall. ?? Degenerative changes with volume loss and subchondral cyst formation ?? left temporomandibular joint. ? CT/CT cervical spine wo IV con ?? IMPRESSION: ?? Multilevel cervical spondylosis C3 C6 without acute fracture or ?? trauma-related listhesis. ?? Acute comminuted fractures, left maxillary sinus wall. ?? Acute displaced rib fractures posterior left third rib with likely ?? associated lung contusion and possibly hemothorax ? Fleischner guidelines were followed. ? Electronically signed by: ??Parish Colon MD ??10/07/2024 12:28 PM ?? EDT RP ? Dictated By: ?Parish Hernandez MD ? Signed By: ?<Electronically signed by Parish Hall MD in OV> ? 10/07/24 1228 ? DD/ 1143 ? TD/TT: 10/07/24 1217 ? Supervisor Drapery Hanging: ? Procedure Note [place], Image - 10/07/[address] [place] [address] [address] Scan Report Signed Patient: Robin Stanley#: [id number] 2 : 1965Acct:[id number] Age/Sex: 59 / MADM Date: 10/07/24 Loc: HO.ED Attending Dr: Ordering Physician: Juliana Moran Date of Service: 10/07/24 Procedure(s): CT cervical spine wo IV con Accession Number(s): [id number] cc: Flora Santiago GEOSPATIAL ENGINEER; Juliana Moran Report Number: [id number]: Total DLP = 588.00 mGy-cm EXAMINATION: CT CERVICAL SPINE WITHOUT CONTRAST CLINICAL INFORMATION: Status post fall. COMPARISON: None available. TECHNIQUE: Contiguous axial images through the cervical spine using 3 mm collimation with bone and soft tissue algorithm. Sagittal and coronal reformatted images acquired. This CT examination was performed using dose optimization techniques as appropriate, variously including the following: *Automated exposure control *Adjustment of mA and/or kV according to patient size (this includes techniques or standardized protocols for targeted exams where dose is matched to indication/reason for exam; i.e. extremities or head) *Use of iterative reconstruction technique DLP: 588.43 mg centimeter. FINDINGS: Craniocervical junction is intact. Degenerative changes in the periodontal C1 region. Marginal osteophyte formation and decreased intervertebral disc height and endplate sclerosis C4-5 C5-6 and to a lesser extent C6-7 levels. C1 is intact. C2 is intact. C3 is intact. C4 is intact. C5 is intact. C6 is intact. C7 is intact. No prevertebral compartment hematoma. Tiny gas bubbles in the right lateral central spinal canal at C4-5 level likely degenerative in nature possibly related to disc osteophyte complex formation versus right subarticular foraminal disc herniation. Acute displaced fracture of the posterior aspect of the left third rib. Possibly lung contusion and or hemothorax left upper lung/left upper hemithorax. Acute displaced fractures in all vein the left maxillary sinus wall. Degenerative changes with volume loss and subchondral cyst formation left temporomandibular joint. CT/CT cervical spine wo IV con IMPRESSION: Multilevel cervical spondylosis C3 C6 without acute fracture or trauma-related listhesis. Acute comminuted fractures, left maxillary sinus wall. Acute displaced rib fractures posterior left third rib with likely associated lung contusion and possibly hemothorax Fleischner guidelines were followed. Electronically signed by: Parish Colon MD 10/07/2024 12:28 PM EDT RP Dictated By: Parish Hernandez MD Signed By: <Electronically signed by Parish Hall MDin OV> 10/07/24 1228 DD/ 1143 TD/TT: 10/07/24 1217 Supervisor Drapery Hanging: [facility] External Provider IMG CT PROCEDURES Final Result * CT Chest w/ Contrast (10/07/2024 11:43 AM EDT) Anatomical Region Laterality Modality Body, Chest Computed Tomogra phy 10/07/2024 11:4 3 AM EDT Narrative 10/07/2024 12:42 PM EDT ? [facility] ?[address] ?[place] [address] ? CT Scan Report ? Signed ? Patient: Stanley,Steven ?MR#: [id number] ?? 2 ? : 1965 ?Acct:[id number] ? Age/Sex: 59 / M ?ADM Date: 04/01/25 ? Loc: HO.ED ? Attending Dr: ? Ordering Physician: Juliana Moran ?? Date of Service: 10/07/24 ?? Procedure(s): CT chest w IV con ?? Accession Number(s): [id number] ? cc: Flora Santiago; Juliana Moran ? Report Number: ?? [id number]: Total DLP = ??456.00 mGy-cm ?? EXAMINATION: ??CT ABDOMEN PELVIS WITH IV CONTRAST, CT CHEST WITH IV ?? CONTRAST ? INDICATION: fall hx limited unknown down time ? COMPARISON: Comparison is made with the prior chest CT dated 07/17/2024 ?? and the prior CT of the abdomen and pelvis dated 03/20/2024.. ? TECHNIQUE: CT scan of the chest, abdomen and pelvis was performed ?? following administration of 85 mL Omnipaque 350 using standard ?? departmental protocol. ?? Coronal and sagittal reformatted images were ?? generated and reviewed. ??Oral contrast material was not administered at ?? the request of the referring physician. ? This CT exam was performed with one or more of the following dose ?? reduction techniques: automated exposure control, adjustment of the mA ?? and/or kV according to patient size, use of iterative reconstruction ?? technique. ? DLP: 1439 mGy-cm ? CHEST: ? THYROID: The thyroid is unremarkable. ? LUNGS: There is mild dependent atelectasis bilaterally. ? MEDIASTINUM: There is mild infiltration of the anterior mediastinal fat ?? which could represent a small amount of hemorrhage. No contrast ?? extravasation is seen. ? LAI: There is no hilar lymphadenopathy. ? CARDIOVASCULATURE: The heart is normal in size. ??There is no ?? pericardial effusion. ??The thoracic aorta is normal in caliber. ? DEGREE OF CORONARY CALCIFICATION: ??moderate ? PLEURA: ??There is no pleural effusion. ??No pneumothorax. ? MAIN AIRWAYS: The mainstem bronchi and proximal branches are patent. ? AXILLA: There is no axillary lymphadenopathy. ? SOFT TISSUES: ??Unremarkable. ? BONES: ??There are multiple old healed right rib fractures. There are ?? acute fractures involving the posterior aspects of the left 3rd through ?? 7th ribs and the lateral aspects of the left 4th through 6th ribs. ? ABDOMEN: ? LIVER: ??The liver demonstrates a nodular contour, consistent with ?? cirrhosis. ??There is a 1.4 cm hyperenhancing lesion in the left lobe of ?? the liver. ??The hepatic and portal veins are patent. ? GALLBLADDER / BILE DUCTS: ??The gallbladder is surgically absent. There ?? is no intra or extrahepatic biliary ductal dilatation. ? SPLEEN: The spleen is normal in size. No focal splenic lesion is ?? identified. ? PANCREAS: The pancreas is unremarkable in appearance. ? ADRENAL GLANDS: Within normal limits. ? KIDNEYS/RETROPERITONEUM: No renal calculi are identified. There is no ?? hydronephrosis. ??No renal masses are identified. ? LYMPH NODES: ??No abdominal or pelvic lymphadenopathy. ? VASCULATURE: ??The abdominal aorta is normal in caliber. ? MESENTERY/PERITONEUM: No free fluid. No masses. ??There is no free ?? intraperitoneal gas. ? STOMACH: ??The stomach is unremarkable. ? SMALL BOWEL: ?? The small bowel is normal in caliber. ? COLON: ??The colon is unremarkable. ? APPENDIX: ??Normal. ? URINARY BLADDER/PELVIC ORGANS: The urinary bladder is unremarkable. ? The prostate is normal in size. ? BONES / SOFT TISSUES: ??There is degenerative disc disease of the spine. ? CT/CT chest w IV con ?? IMPRESSION: ? 1. Multiple acute fractures involving the left ribs as described. ? 2. Infiltration of the fat of the anterior mediastinum may represent a ?? small amount of hemorrhage. No contrast extravasation is seen to ?? suggest active bleeding. ? 3. Cirrhosis of the liver. 1.4 cm hyperenhancing lesion in the left ?? lobe, highly suspicious for hepatocellular carcinoma. Outpatient MRI ?? evaluation is recommended. ? 4. Findings were discussed with Juliana Moran in the emergency room ?? on 10/07/2024 at 12:40 PM. ? Electronically signed by: ??Jun Waller MD ??10/07/2024 12:39 PM EDT ? Dictated By: ?Jun Waller MD ? Signed By: ?<Electronically signed by Jun Waller MD in OV> ?10/07/24 1239 ? DD/ 1143 ? TD/TT: 10/07/24 1217 ? Supervisor Drapery Hanging: ? Procedure Note Pina, Image - 10/07/[address] [place] [address] [address] Scan Report Signed Patient: Robin Stalney#: [id number] 2 : 1965Acct:[id number] Age/Sex: 59 / MADM Date: 10/07/24 Loc: HO.ED Attending Dr: Ordering Physician: Juliana Moran Date of Service: 10/07/24 Procedure(s): CT chest w IV con Accession Number(s): [id number] cc: Flora Santiago GEOSPATIAL ENGINEER; Juliana Moran Report Number: [id number]: Total DLP = 456.00 mGy-cm EXAMINATION: CT ABDOMEN PELVIS WITH IV CONTRAST, CT CHEST WITH IV CONTRAST INDICATION: fall hx limited unknown down time COMPARISON: Comparison is made with the prior chest CT dated 07/17/[address] of the abdomen and pelvis dated 03/20/2024.. TECHNIQUE: CT scan of the chest, abdomen and pelvis was performed following administration of 85 mL Omnipaque 350 using standard departmental protocol. Coronal and sagittal reformatted images were generated and reviewed. Oral contrast material was not administered at the request of the referring physician. This CT exam was performed with one or more of the following dose reduction techniques: automated exposure control, adjustment of the mA and/or kV according to patient size, use of iterative reconstruction technique. DLP: 1439 mGy-cm CHEST: THYROID: The thyroid is unremarkable. LUNGS: There is mild dependent atelectasis bilaterally. MEDIASTINUM: There is mild infiltration of the anterior mediastinal fat which could represent a small amount of hemorrhage. No contrast extravasation is seen. LAI: There is no hilar lymphadenopathy. CARDIOVASCULATURE: The heart is normal in size. There is no pericardial effusion. The thoracic aorta is normal in caliber. DEGREE OF CORONARY CALCIFICATION: moderate PLEURA: There is no pleural effusion. No pneumothorax. MAIN AIRWAYS: The mainstem bronchi and proximal branches are patent. AXILLA: There is no axillary lymphadenopathy. SOFT TISSUES: Unremarkable. BONES: There are multiple old healed right rib fractures. There are acute fractures involving the posterior aspects of the left 3rd through 7th ribs and the lateral aspects of the left 4th through 6th ribs. ABDOMEN: LIVER: The liver demonstrates a nodular contour, consistent with cirrhosis. There is a 1.4 cm hyperenhancing lesion in the left lobe of the liver. The hepatic and portal veins are patent. GALLBLADDER / BILE DUCTS: The gallbladder is surgically absent. There is no intra or extrahepatic biliary ductal dilatation. SPLEEN: The spleen is normal in size. No focal splenic lesion is identified. PANCREAS: The pancreas is unremarkable in appearance. ADRENAL GLANDS: Within normal limits. KIDNEYS/RETROPERITONEUM: No renal calculi are identified. There is no hydronephrosis. No renal masses are identified. LYMPH NODES: No abdominal or pelvic lymphadenopathy. VASCULATURE: The abdominal aorta is normal in caliber. MESENTERY/PERITONEUM: No free fluid. No masses. There is no free intraperitoneal gas. STOMACH: The stomach is unremarkable. SMALL BOWEL: The small bowel is normal in caliber. COLON: The colon is unremarkable. APPENDIX: Normal. URINARY BLADDER/PELVIC ORGANS: The urinary bladder is unremarkable. The prostate is normal in size. BONES / SOFT TISSUES: There is degenerative disc disease of the spine. CT/CT chest w IV con IMPRESSION: 1. Multiple acute fractures involving the left ribs as described. 2. Infiltration of the fat of the anterior mediastinum may represent a small amount of hemorrhage. No contrast extravasation is seen to suggest active bleeding. 3. Cirrhosis of the liver. 1.4 cm hyperenhancing lesion in the left lobe, highly suspicious for hepatocellular carcinoma. Outpatient MRI evaluation is recommended. 4. Findings were discussed with Juliana Moran in the emergency room on 10/07/2024 at 12:40 PM. Electronically signed by: Jun Waller MD 10/07/2024 12:39 PM EDT RP Dictated By: Jun Waller MD Signed By: <Electronically signed by Jun Waller MD in OV> 10/07/24 1239 DD/ 1143 TD/TT: 10/07/24 1217 Supervisor Drapery Hanging: [facility] External Provider IMG CT PROCEDURES Final Result * CT Abdomen Pelvis w/ Contrast (10/07/2024 10:13 AM EDT) Anatomical Region Laterality Modality Body, Pelvis, Abdomen Computed T omography 10/07/2024 10:1 3 AM EDT Narrative 10/07/2024 12:42 PM EDT ? [facility] ?[address] ?[place] [address] ? CT Scan Report ? Signed ? Patient: Steven Stanley ?MR#: [id number] ?? 2 ? : 1965 ?Acct:[id number] ? Age/Sex: 59 / M ?ADM Date: 10/07/24 ? Loc: HO.ED ? Attending Dr: ? Ordering Physician: Juliana Moran ?? Date of Service: 10/07/24 ?? Procedure(s): CT abdomen pelvis w IV con ?? Accession Number(s): [id number] ? cc: Flora Santiago GEOSPATIAL ENGINEER; Juliana Moran ? Report Number: ?? [id number]: Total DLP = ??997.00 mGy-cm ?? EXAMINATION: ??CT ABDOMEN PELVIS WITH IV CONTRAST, CT CHEST WITH IV ?? CONTRAST ? INDICATION: fall hx limited unknown down time ? COMPARISON: Comparison is made with the prior chest CT dated 07/17/2024 ?? and the prior CT of the abdomen and pelvis dated 03/20/2024.. ? TECHNIQUE: CT scan of the chest, abdomen and pelvis was performed ?? following administration of 85 mL Omnipaque 350 using standard ?? departmental protocol. ?? Coronal and sagittal reformatted images were ?? generated and reviewed. ??Oral contrast material was not administered at ?? the request of the referring physician. ? This CT exam was performed with one or more of the following dose ?? reduction techniques: automated exposure control, adjustment of the mA ?? and/or kV according to patient size, use of iterative reconstruction ?? technique. ? DLP: 1439 mGy-cm ? CHEST: ? THYROID: The thyroid is unremarkable. ? LUNGS: There is mild dependent atelectasis bilaterally. ? MEDIASTINUM: There is mild infiltration of the anterior mediastinal fat ?? which could represent a small amount of hemorrhage. No contrast ?? extravasation is seen. ? LAI: There is no hilar lymphadenopathy. ? CARDIOVASCULATURE: The heart is normal in size. ??There is no ?? pericardial effusion. ??The thoracic aorta is normal in caliber. ? DEGREE OF CORONARY CALCIFICATION: ??moderate ? PLEURA: ??There is no pleural effusion. ??No pneumothorax. ? MAIN AIRWAYS: The mainstem bronchi and proximal branches are patent. ? AXILLA: There is no axillary lymphadenopathy. ? SOFT TISSUES: ??Unremarkable. ? BONES: ??There are multiple old healed right rib fractures. There are ?? acute fractures involving the posterior aspects of the left 3rd through ?? 7th ribs and the lateral aspects of the left 4th through 6th ribs. ? ABDOMEN: ? LIVER: ??The liver demonstrates a nodular contour, consistent with ?? cirrhosis. ??There is a 1.4 cm hyperenhancing lesion in the left lobe of ?? the liver. ??The hepatic and portal veins are patent. ? GALLBLADDER / BILE DUCTS: ??The gallbladder is surgically absent. There ?? is no intra or extrahepatic biliary ductal dilatation. ? SPLEEN: The spleen is normal in size. No focal splenic lesion is ?? identified. ? PANCREAS: The pancreas is unremarkable in appearance. ? ADRENAL GLANDS: Within normal limits. ? KIDNEYS/RETROPERITONEUM: No renal calculi are identified. There is no ?? hydronephrosis. ??No renal masses are identified. ? LYMPH NODES: ??No abdominal or pelvic lymphadenopathy. ? VASCULATURE: ??The abdominal aorta is normal in caliber. ? MESENTERY/PERITONEUM: No free fluid. No masses. ??There is no free ?? intraperitoneal gas. ? STOMACH: ??The stomach is unremarkable. ? SMALL BOWEL: ?? The small bowel is normal in caliber. ? COLON: ??The colon is unremarkable. ? APPENDIX: ??Normal. ? URINARY BLADDER/PELVIC ORGANS: The urinary bladder is unremarkable. ? The prostate is normal in size. ? BONES / SOFT TISSUES: ??There is degenerative disc disease of the spine. ? CT/CT abdomen pelvis w IV con ?? IMPRESSION: ? 1. Multiple acute fractures involving the left ribs as described. ? 2. Infiltration of the fat of the anterior mediastinum may represent a ?? small amount of hemorrhage. No contrast extravasation is seen to ?? suggest active bleeding. ? 3. Cirrhosis of the liver. 1.4 cm hyperenhancing lesion in the left ?? lobe, highly suspicious for hepatocellular carcinoma. Outpatient MRI ?? evaluation is recommended. ? 4. Findings were discussed with Juliana Moran in the emergency room ?? on 10/07/2024 at 12:40 PM. ? Electronically signed by: ??Jun Waller MD ??10/07/2024 12:39 PM EDT ?? RP ? Dictated By: ?Jun Waller MD ? Signed By: ?<Electronically signed by Jun Waller MD in OV> ?10/07/24 1239 ? DD/ 1013 ? TD/TT: 10/07/24 1217 ? Supervisor Drapery Hanging: ? Procedure Note Sarah Heller - 10/07/[address] [place] [address] CT Scan Report Signed Patient: Robin Stanley#: [id number] 2 : 1965Acct:[id number] Age/Sex: 59 / MADM Date: 10/07/24 Loc: HO.ED Attending Dr: Ordering Physician: Juliana Moran Date of Service: 10/07/24 Procedure(s): CT abdomen pelvis w IV con Accession Number(s): [id number] cc: Flora Santiago GEOSPATIAL ENGINEER; Juliana Moran Report Number: [id number]: Total DLP = 997.00 mGy-cm EXAMINATION: CT ABDOMEN PELVIS WITH IV CONTRAST, CT CHEST WITH IV CONTRAST INDICATION: fall hx limited unknown down time COMPARISON: Comparison is made with the prior chest CT dated 07/17/[address] of the abdomen and pelvis dated 03/20/2024.. TECHNIQUE: CT scan of the chest, abdomen and pelvis was performed following administration of 85 mL Omnipaque 350 using standard departmental protocol. Coronal and sagittal reformatted images were generated and reviewed. Oral contrast material was not administered at the request of the referring physician. This CT exam was performed with one or more of the following dose reduction techniques: automated exposure control, adjustment of the mA and/or kV according to patient size, use of iterative reconstruction technique. DLP: 1439 mGy-cm CHEST: THYROID: The thyroid is unremarkable. LUNGS: There is mild dependent atelectasis bilaterally. MEDIASTINUM: There is mild infiltration of the anterior mediastinal fat which could represent a small amount of hemorrhage. No contrast extravasation is seen. LAI: There is no hilar lymphadenopathy. CARDIOVASCULATURE: The heart is normal in size. There is no pericardial effusion. The thoracic aorta is normal in caliber. DEGREE OF CORONARY CALCIFICATION: moderate PLEURA: There is no pleural effusion. No pneumothorax. MAIN AIRWAYS: The mainstem bronchi and proximal branches are patent. AXILLA: There is no axillary lymphadenopathy. SOFT TISSUES: Unremarkable. BONES: There are multiple old healed right rib fractures. There are acute fractures involving the posterior aspects of the left 3rd through 7th ribs and the lateral aspects of the left 4th through 6th ribs. ABDOMEN: LIVER: The liver demonstrates a nodular contour, consistent with cirrhosis. There is a 1.4 cm hyperenhancing lesion in the left lobe of the liver. The hepatic and portal veins are patent. GALLBLADDER / BILE DUCTS: The gallbladder is surgically absent. There is no intra or extrahepatic biliary ductal dilatation. SPLEEN: The spleen is normal in size. No focal splenic lesion is identified. PANCREAS: The pancreas is unremarkable in appearance. ADRENAL GLANDS: Within normal limits. KIDNEYS/RETROPERITONEUM: No renal calculi are identified. There is no hydronephrosis. No renal masses are identified. LYMPH NODES: No abdominal or pelvic lymphadenopathy. VASCULATURE: The abdominal aorta is normal in caliber. MESENTERY/PERITONEUM: No free fluid. No masses. There is no free intraperitoneal gas. STOMACH: The stomach is unremarkable. SMALL BOWEL: The small bowel is normal in caliber. COLON: The colon is unremarkable. APPENDIX: Normal. URINARY BLADDER/PELVIC ORGANS: The urinary bladder is unremarkable. The prostate is normal in size. BONES / SOFT TISSUES: There is degenerative disc disease of the spine. CT/CT abdomen pelvis w IV con IMPRESSION: 1. Multiple acute fractures involving the left ribs as described. 2. Infiltration of the fat of the anterior mediastinum may represent a small amount of hemorrhage. No contrast extravasation is seen to suggest active bleeding. 3. Cirrhosis of the liver. 1.4 cm hyperenhancing lesion in the left lobe, highly suspicious for hepatocellular carcinoma. Outpatient MRI evaluation is recommended. 4. Findings were discussed with Juliana Moran in the emergency room on 10/07/2024 at 12:40 PM. Electronically signed by: Jun Waller MD 10/07/2024 12:39 PM EDT Dictated By: Jun Waller MD Signed By: <Electronically signed by Jun Waller MD in OV> 10/07/24 1239 DD/ 1013 TD/TT: 10/07/24 1217 Supervisor Drapery Hanging: [facility] External Provider IMG CT PROCEDURES Final Result * CT Head w/o Contrast (10/07/2024 10:13 AM EDT) Anatomical Region Laterality Modality Head, Neck Computed Tomogra phy 10/07/2024 10:1 3 AM EDT Narrative 10/07/2024 12:40 PM EDT ? [facility] ?[address] ?[place] [address] ? CT Scan Report ? Signed ? Patient: Stanley,Steven ?MR#: [id number] ?? 2 ? : 1965 ?Acct:[id number] ? Age/Sex: 59 / M ?ADM Date: 10/07/24 ? Loc: HO.ED ? Attending Dr: ? Ordering Physician: Juliana Moran ?? Date of Service: 10/07/24 ?? Procedure(s): CT head/brain wo IV con ?? Accession Number(s): [id number] ? cc: Flora Santiago GEOSPATIAL ENGINEER; Juliana Moran ? Report Number: ?? [id number]: Total DLP = ??845.00 mGy-cm ?? EXAMINATION: ?? CT HEAD WITHOUT CONTRAST ? CLINICAL INFORMATION: ?? Altered mental status, fall, unknown head strike. ? COMPARISON: ?? None available. ? TECHNIQUE: ?? Contiguous axial imaging was performed from the skull base to vertex ?? without intravenous administration of contrast. ? This CT examination was performed using dose optimization techniques as ?? appropriate, variously including the following: ?? *Automated exposure control ?? *Adjustment of mA and/or kV according to patient size (this includes ?? techniques or standardized protocols for targeted exams where dose is ?? matched to indication/reason for exam; i.e. extremities or head) ?? *Use of iterative reconstruction technique ? FINDINGS: ?? There is no evidence of intracranial hemorrhage or extra-axial fluid ?? collection. ?? There is no mass effect, or edema. No CT evidence of acute territorial ?? infarct. ?? Ventricles, sulci, and cisterns are normal in size and configuration ?? for patient age. No hydrocephalus. No midline shift. ?? Negative hyperdense MCA sign. Negative insular ribbon sign. ? Patchy periventricular and deep white matter hypoattenuation is ?? consistent with mild small vessel ischemic changes. ? Globes and orbital contents image normally. No pre or post septal ?? abnormalities. ?? No extracranial soft tissue abnormalities. ? There is high attenuation fluid opacification of left maxillary sinus, ?? consistent with blood. ?? The mastoids and tympanic cavities are normally aerated. ? No calvarial fracture. ?? There is a minimally displaced fracture of the anterior and posterior ?? wall of the left maxillary sinus. This extends into the left pterygoid ?? plate. ?? There is a minimally displaced fracture of the left orbital floor ?? without fat herniation. ?? There is mild diastases of the left frontozygomatic suture. ? Severe degenerative arthritis left TM joint. ? CT/CT head/brain wo IV con ?? IMPRESSION: ?? 1. No acute intracranial pathology. No calvarial fracture. ?? 2. There are minimally displaced fractures of the anterior and ?? posterior wall of the left maxillary sinus. This extends into the left ?? pterygoid plate. ?? 3. There is a minimally displaced fracture of the left orbital floor ?? without extraconal fat herniation. ?? 4. There is mild diastases of the left frontozygomatic suture in the ?? left lateral orbit. ?? 5. There is blood within the left maxillary sinus. ? Electronically signed by: ??Billy Mcneill MD ??10/07/2024 12:36 PM EDT RP ? Dictated By: ?Billy Mcneill MD ? Signed By: ?<Electronically signed by Billy Mcneill MD in OV> ?10/07/24 1236 ? DD/ 1013 ? TD/TT: 10/07/24 1217 ? Supervisor Drapery Hanging: ? Procedure Note Sarah Heller - 10/07/[address] [address] [address] Scan Report Signed Patient: Robin Stanley#: [id number] 2 : 1965Acct:[id number] Age/Sex: 59 / MADM Date: 10/07/24 Loc: HO.ED Attending Dr: Ordering Physician: Juliana Moran Date of Service: 10/07/24 Procedure(s): CT head/brain wo IV con Accession Number(s): [id number] cc: Flora SantiagoP; Juliana Moran Report Number: [id number]: Total DLP = 845.00 mGy-cm EXAMINATION: CT HEAD WITHOUT CONTRAST CLINICAL INFORMATION: Altered mental status, fall, unknown head strike. COMPARISON: None available. TECHNIQUE: Contiguous axial imaging was performed from the skull base to vertex without intravenous administration of contrast. This CT examination was performed using dose optimization techniques as appropriate, variously including the following: *Automated exposure control *Adjustment of mA and/or kV according to patient size (this includes techniques or standardized protocols for targeted exams where dose is matched to indication/reason for exam; i.e. extremities or head) *Use of iterative reconstruction technique FINDINGS: There is no evidence of intracranial hemorrhage or extra-axial fluid collection. There is no mass effect, or edema. No CT evidence of acute territorial infarct. Ventricles, sulci, and cisterns are normal in size and configuration for patient age. No hydrocephalus. No midline shift. Negative hyperdense MCA sign. Negative insular ribbon sign. Patchy periventricular and deep white matter hypoattenuation is consistent with mild small vessel ischemic changes. Globes and orbital contents image normally. No pre or post septal abnormalities. No extracranial soft tissue abnormalities. There is high attenuation fluid opacification of left maxillary sinus, consistent with blood. The mastoids and tympanic cavities are normally aerated. No calvarial fracture. There is a minimally displaced fracture of the anterior and posterior wall of the left maxillary sinus. This extends into the left pterygoid plate. There is a minimally displaced fracture of the left orbital floor without fat herniation. There is mild diastases of the left frontozygomatic suture. Severe degenerative arthritis left TM joint. CT/CT head/brain wo IV con IMPRESSION: 1. No acute intracranial pathology. No calvarial fracture. 2. There are minimally displaced fractures of the anterior and posterior wall of the left maxillary sinus. This extends into the left pterygoid plate. 3. There is a minimally displaced fracture of the left orbital floor without extraconal fat herniation. 4. There is mild diastases of the left frontozygomatic suture in the left lateral orbit. 5. There is blood within the left maxillary sinus. Electronically signed by: Billy Mcneill MD 10/07/2024 12:36 PM EDT RP Dictated By: Billy Mcneill MD Signed By: <Electronically signed by Billy Mcneill MD in OV> 10/07/24 1236 DD/ 1013 TD/TT: 10/07/24 1217 Supervisor Drapery Hanging: [facility] External Provider IMG CT PROCEDURES Final Result * (ABNORMAL) POCT A1C (09/18/2024 11:00 AM EDT) Hemoglobin A1C 7.4(A) 4.0 - 6.0 % QC Media Lot # [id number] Lot# Expiration Date ,026 Blood 09/18/2024 11:0 0 AM EDT Kandi Panda PharmD POINT OF CARE TEST ENTER/HERNAN T ORDERABLES Final Result * XR Chest 2 Views (09/05/2024 9:25 AM EST) Anatomical Region Laterality Modality Chest Radiographic Kandace ging 09/05/2024 9:25 AM EST Narrative 09/05/2024 9:44 AM EST ?[facility] ?[address] ?[place] [address] ?XRay Report ? Signed ? Patient: Steven Stanley ?MR#: [id number] ?? 2 ? : 1965 ?Acct:[id number] ? Age/Sex: 59 / M ?ADM Date: 09/05/24 ? Loc: HO.HHCX ? Attending Dr: Jeannette Griffin MD ? Ordering Physician: Jeannette Griffin MD ?? Date of Service: 09/05/24 ?? Procedure(s): XR chest 2V ?? Accession Number(s): [id number] ? cc: EliasMichaelJeannettesasha Singer MD ? EXAMINATION: ?? XR CHEST ? [...] DD/ 4 ? TD/TT: 09/05/24934 ? Supervisor Drapery Hanging: ? Procedure Note Pina, Image - 09/05/2024 [place] [address] XRay Report Signed Patient: Robin Stanley#: [id number] 2 : 1965Acct:[id number] Age/Sex: 59 / MADM Date: 09/05/24 Loc: HO.HHCX Attending Dr: Jeannette Griffin MD Ordering Physician: Jeannette Griffin MD Date of Service: 09/05/24 Procedure(s): XR chest 2V Accession Number(s): [id number] cc: Jeannette Griffin MD EXAMINATION: XR CHEST [...] in OV> 09/05/24 0941 DD/ 4 TD/TT: 09/05/24934 Supervisor Drapery Hanging: us Jeannette Griffin MD IMG XR PROCEDURES Final Result * (ABNORMAL) CBC auto differential (08/13/2024 11:49 AM EST) White Blood Count 11.4(H) 4.8 - 10.8 X10*3/uL [facility] Red Blood Count 5.21 4.60 - 5.80 X10*6/uL [facility] Hemoglobin 14.0 14.0 - 18.0 g/dl [facility] Hematocrit 42.3 42.0 - 52.0 % [facility] Mean Corpuscular Volume 81.2 80.0 - 98.0 fL [facility] Mean Corpuscular Hemoglobin 26.9(L) 27.0 - 33.0 pg [facility] Mean Corpuscular HGB Conc 33.1 31.0 - 36.0 g/dl [facility] Red Cell Distribution Width 13.9 11.0 - 16.0 % [facility] Platelet Count 212 160 - 400 X10*3/uL [facility] Mean Platelet Volume 10.2 9.4 - 12.4 fL [facility] Neutrophils Percent Auto 78.4(H) 45 - 73 % [facility] Imm Gran Pct Auto 0.4 0.0 - 0.4 % [facility] Lymphocytes Percent Auto 11.1(L) 20 - 40 % [facility] Monocytes Percent Auto 9.2 2 - 11 % [facility] LABS Eosinophils Percent Auto 0.5 0 - 4 % [facility] Basophils Percent Auto 0.4 0 - 2 % [facility] NRBC Pct Auto 0.0 0.0 - 0.2 /100WBC [facility] Neutrophils Absolute Auto 8.9(H) 2.0 - 8.3 x10*3/uL [facility] Imm Gran Abs Auto 0.04(H) 0.00 - 0.03 X10*3/uL [facility] Lymphocytes Absolute Auto 1.3 1.2 - 4.9 X10*3/uL [facility] Monocytes Absolute Auto 1.0 0.1 - 1.2 X10*3/uL [facility] Eosinophils Absolute Auto 0.1 0.0 - 0.4 X10*3/uL [facility] Basophils Absolute Auto 0.0 0.0 - 0.2 X10*3/uL [facility] NRBC Abs Auto 0.000 0.0 - 0.012 X10*3/uL [facility] Blood Venous blood specimen / Unknown 08/13/2024 11:49 AM EST 08/13/2024 11:49 AM EST Flora Santiago [facility] LAB BLOOD ORDERABLES Final Res ult Performing Organization Address [facility] Number [facility] [address] [place] [phone] * Alpha-Fetoprotein, Tumor Marker (08/13/2024 11:49 AM EST) Alpha Fetoprotein 2.7 <6.1 ng/mL [facility] Comment:This test was perfor med using the Aida Coulterchemiluminescent method. Values obtained fromdifferent assay methods cannot be usedinterchangeably. AFP levels, regardless ofvalue, should not be interpreted as absoluteevidence of the presence or absence of disease.THIS TEST WAS PERFORMED AT:[facility] [place] [phone] GARCIA MD Blood Venous blood specimen / Unknown 08/13/2024 11:49 AM EST 08/13/2024 11:49 AM EST Flora Santiago [facility] LAB BLOOD ORDERABLES Final Res ult Performing Organization Address [facility] Co de Phone Number [facility] [address] [place] [phone] * (ABNORMAL) Immunofixation, Serum (08/13/2024 11:49 AM EST) IMMUNOGLOBULIN G 1318 600 - 1640 mg/dL [facility] IMMUNOGLOBULIN A 1062(A) 47 - 310 mg/dL [facility] Comment:Verified by repeat a nalysis. Immunoglobulin M 195 50 - 300 mg/dL [facility] Comment:THIS TEST WAS PERFOR MED AT:[facility] [place] [phone] GARCIA MD Immunofixation Result SEE NOTE [facility] Comment:No monoclonal protei ns detected. 08/13/2024 11:4 9 AM EST 08/13/2024 11:49 AM EST us Generic External Data Provider LAB BLOOD ORDERAB LES Final Result Performing Organization Address [facility] Co de Phone Number [facility] [address] [place] [phone] * (ABNORMAL) Hepatic Function Panel (08/13/2024 11:49 AM EST) Pathologist [facility] Bilirubin, Total 1.2(H) 0.0 - 1.0 mg/dL [facility] Bilirubin, Direct 0.5 0.0 - 0.5 mg/dL [facility] Aspartate Amino Transferase 32 5 - 37 U/L [facility] Alanine Aminotransferase 19 0 - 40 U/L [facility] Total Protein 9.1(H) 6.5 - 8.0 g/dL [facility] Albumin Level 4.4 3.5 - 5.0 g/dL [facility] Alkaline Phosphatase 167(H) 39 - 117 U/L [facility] Blood Venous blood specimen / Unknown 08/13/2024 11:49 AM EST 08/13/2024 11:49 AM EST us Flora Santiago GEOSPATIAL ENGINEER LAB BLOOD ORDERABLES Final Res ult Performing Organization Address [facility]/ZIP Co de Phone Number [facility] [address] [place] [phone] * (ABNORMAL) Basic Metabolic Panel (08/13/2024 11:49 AM EST) Pathologist [facility] Sodium 133(L) 135 - 145 mmol/L [facility] Potassium 4.9 3.3 - 5.1 mmol/L [facility] Chloride 98 96 - 108 mmol/L [facility] Carbon Dioxide 23 22 - 29 mmol/L [facility] Anion Gap 17 12 - 20 [facility] Urea Nitrogen (BUN) 17(H) 9 - 16 mg/dL [facility] Creatinine, Serum 1.10 0.5 - 1.4 mg/dL [facility] Estimated Glomerular Filt Rate >60 [facility] Comment:Chronic Kidney Disea se: Estimated GFR < 60 mL/min/1.69s5Lrizqi Kidney Disease: Estimated GFR < 15 mL/min/1.73m2 Glucose 296(H) 60 - 115 mg/dL [facility] Calcium 9.8 8.4 - 10.2 mg/dL [facility] 08/13/2024 11:4 9 AM EST 08/13/2024 11:49 AM EST us Generic External Data Provider LAB BLOOD ORDERAB LES Final Result [facility] [address] [place] [phone] * (ABNORMAL) Urinalysis Complete (08/13/2024 11:43 AM EST) Color Urine Yellow [facility] Appearance Urine Clear [facility] PH 5.5 5.0 - 9.0 [facility] Glucose Urine UA >=1000(A) Negative mg/dL [facility] Urine Blood Moderate (2+)(A) Negative [facility] Specific [place] - Urine 1.025 1.005 - 1.025 [facility] Urine Protein Trace Neg-Trace mg/dL [facility] Urine Ketones Negative Negative mg/dL [facility] Nitrite Urine Negative Negative [facility] Leukocyte Esterase Urine Negative Negative [facility] RBC Urine 6-10(A) 0 - 2 /HPF [facility] Urine WBC 0-5 0 - 5 /HPF [facility] Urine Squamous Epithelial Cell 0-2 0 - 2 /HPF [facility] Urine Bacteria None Seen None Seen [facility] Hyaline Casts, Urine 0-2 0 - 2 /LPF [facility] 08/13/2024 11:4 3 AM EST 08/13/2024 12:35 PM EST Generic External Data Provider LAB URINE ORDERAB LES Final Result Performing Organization Address [facility] de Phone Number [facility] [address] [place] [phone] * Hepatitis Panel, General (04/29/2024 12:37 PM EDT) Hepatitis A IgM Nonreactive Nonreactive [facility] Comment:IgM antibodies to RITCHIE V not detected; does not exclude earlyacute or recovered HAV infection. ~Hepatitis B Surface Antibody REACTIVE Nonreactive [facility] Comment:REACTIVE: > 11.99 mI U/mL Hepatitis B Core Antibody Nonreactive Nonreactive [facility] Hepatitis C Antibody GRAYZONE Nonreactive [facility] Comment:Antibodies to HCV ma y or may not be present. Suggest repeatanti-HCV in 4-6 weeks and/or HCV viral load if clinicallyindicated. Hepatitis B Surface Ag Negative Negative [facility] 04/29/2024 12:3 7 PM EDT 04/29/2024 12:39 PM EDT us Generic External Data Provider LAB BLOOD ORDERAB LES Final Result Performing Organization Address [facility] de Phone Number [facility] [address] [place] [phone] * Lipid Panel, Standard (03/28/2024 8:52 AM EDT) Triglycerides 90 <150 mg/dL [facility] Comment:Desirable Triglyceri de: less than 150 mg/dLBorderline High Triglyceride 150-199 mg/dLHigh Triglyceride: 200-499 mg/dLVery High Triglyceride: greater than or equal to 5OO mg/dL Cholesterol 187 <200 mg/dL [facility] Comment:Desirable Cholestero l: less than 200 mg/dLBorderline High Cholesterol: 200-239 mg/dLHigh Cholesterol: greater than 239 mg/dL LDL Cholesterol Calculated 64 <100 mg/dL [facility] Comment:Desirable LDL: less than 100 mg/dLNear Optimal/Above Optimal LDL: 110- 129 mg/dLBorderline High LDL: 130-159 mg/dLHigh LDL: 160-189 mg/dLVery High LDL: greater than or equal to 190 mg/dL HDL Cholesterol 105 >40 mg/dL [facility] Comment:Desirable HDL: great er than 40 mg/dL Note: This HDL assay may give artificially low results in patients with liver disease. 03/28/2024 8:52 AM EDT 03/28/2024 8:52 AM EDT us Generic External Data Provider LAB BLOOD ORDERAB LES Final Result Performing Organization Address City/[facility]/ZIP Co de Phone Number [facility] [address] [place] [phone] * Creatinine, Random Urine (10/31/2023 12:00 PM EDT) Creatinine, Urine 70.00 mg/dL [facility] 10/31/2023 12:0 0 PM EDT 10/31/2023 12:52 PM EDT Generic External Data Provider LAB URINE ORDERAB LES Final Result Performing Organization Address [facility] Co de Phone Number [facility] [address] [place] [phone] * HIV 1/2 ANTIGEN/ANTIBODY,FOURTH GENERATION W/RFL (07/18/2021 9:07 AM EST) Pathologist [facility] HIV-1/2 ANTIGEN AND ANTIBODIES, 4TH GENERATION W/ REFLEX NON-REACT NASEEM NON-REACT NASEEM [facility] Comment: HIV-1 antigen and HIV-1/HIV-2 [...] ? For additional information please refer to http://education.ImmunGene/faq/CNQ362 (This link is being provided for informational/ educational purposes only.) ? The performance of this assay has not been clinically validated in patients less than 2 years old. ?? 07/18/2021 9:07 AM EST Flora Santiago GEOSPATIAL ENGINEER LAB BLOOD ORDERABLES Final Res ult [facility] [address] * Colonoscopy (03/17/2021) [facility] Colonoscopy Normal Normal Narrative Debi Zamora - 03/17/2021 Repeat in 5 years tubular adenoma Historical Provider HEALTH MAINTENANCE Final Result from Last 3 Months or Most Recently Relevant to Health Maintenance [facility] [place] [facility] STAND ADULT GENERIC OTHER Care Teams Media Relations Intern Relationship Specialty Start Date End Date Flora Santiago FNP [address] [place] [address] PCP - General Family Medicine 05/02/21 Sherin Hall, RN [address] [place] [address] Cheese Cutter Family Medicine 07/30/23 Juan Jose Deshpande MD [address] [place] [address] Nephrology 06/13/24 Michael Glass MD [address] [place] [address] [address] [place] [address] General Surgery 06/13/24 Demetrius Austin MD [address] [place] [address] Orthopaedic Surgery 06/13/24 Harry Garcia MD [address] [place] [address] Gastroenterology 06/13/24 Jovany Feliciano MD [address]rd [place] [address] Cardiology 06/13/24 Kandi Panda PharmD [address] [place] [address] Pharmacist Internal Medicine 08/18/24 Angelica Saenz [address] [place] [address] Dental Hygienist Dental Financial Aid Manager 08/20/24 Mao Palomino DDS [address] [place] [address] Dentist Dental Financial Aid Manager 08/20/24
--- OUTSIDE RECORDS SUMMARY | 2024-10-20 14:07 | XMS_ITS | Encounter Summary ---
Author Organization [email or web address] Address [address] [facility] [address] [place] [address] Care Team Providers Care Religion Teacher Name Role Phone Flora Santiago PURCHASING AND CLAIMS SUPERVISOR Primary Care Provider [phone] Sherin Hall RN Unavailable [phone] Juan Jose Deshpande MD Unavailable [phone] Michael Glass MD Unavailable [phone] Demetrius Austin MD Unavailable Harry Garcia MD Unavailable [phone] Jovany Feliciano MD Unavailable [phone] Kandi Panda PharmD Unavailable Angelica Saenz Unavailable Mao Palomino DDS Unavailable [phone] Encounter Details Date Type Department Care Team (Late st Contact Info) Description 05/25/2023 Abstract [facility] [address] [place] [address] Debi Zamora Social History Tobacco Use Types [...] Description 11/12/2024 9:45 AM EDT Office Visit [facility] [address] [place] [phone] Flora Santiago, PURCHASING AND CLAIMS SUPERVISOR [address] [place] [address] 12/22/2024 9:30 AM EDT Medication Management [facility] [address] [place] [phone] Kandi Panda, PharmD [address] [place] [address] 12/24/2024 8:00 AM EDT Office Visit [facility] [address] [place] [address] Dany, Angelica [address] [place] [address] documented as of this encounter Procedures Procedure Name Priority Date/Time Associated Diagnosis Comments COLONOSCOPY Routine 03/17/2021 documented in this encounter Results * Hm Colonoscopy (03/17/2021) Colonoscopy Normal Normal Narrative Debi Zamora - 03/17/2021 Repeat in 5 years tubular adenoma us Historical Provider HEALTH MAINTENANCE Final Result documented in this encounter Visit Diagnoses Not on filedocumented in this encounter Care Teams Religion Teacher Relationship Specialty Start Date End Date Flora Santiago FNP [address] [place] [address] PCP - General Family Medicine 05/02/21 Sherin Hall, RN [address] [place] [phone] Collector Of Port Family Medicine 07/30/23 Juan Jose Deshpande MD [address] [place] [address] Nephrology 06/13/24 Michael Glass MD [address] [place] [address] [address] [place] [address] General Surgery 06/13/24 Demetrius Austin MD [address] [place] [address] Orthopaedic Surgery 06/13/24 Harry Garcia MD [address] [place] [address] Gastroenterology 06/13/24 Jovany Feliciano MD [address] [place] [address] Cardiology 06/13/24 Kandi Panda PharmD [address] [place] [phone] Pharmacist Internal Medicine 08/18/24 Angelica Saenz [address] [place] [address] Dental Hygienist Dental Chicken Cleaner 08/20/24 Mao Palomino DDS [address] [place] [address] Dentist Dental Chicken Cleaner 08/20/24 documented as of this encounter
--- OUTSIDE RECORDS SUMMARY | 2024-10-20 14:07 | XMS_ITS | Encounter Summary ---
Author Organization [employer] Address 75 [facility] 7t [place] [address] Care Team Providers Care Human Resources Benefits Administrator Name Role Phone Flora Santiago THERMAL CUTTER HAND Primary Care Provider Sherin Hall RN Unavailable [phone] Juan Jose Deshpande MD Unavailable [phone] Michael Glass MD Unavailable [phone] Demetrius Austin MD Unavailable Harry Garcia MD Unavailable [phone] Jovany Feliciano MD Unavailable Kandi Panda PharmD Unavailable Angelica Saenz Unavailable Mao Palomino DDS Unavailable [phone] Encounter Details Date Type Department Care Team (Late st Contact Info) Description 10/17/2024 2:00 PM EDT Office Visit [facility] [address] [place], [place] [phone] Flora Santiago FNP [address] [place] [address] Closed fracture of multiple ribs of left side with routine healing, subsequent encounter (Primary Dx); Closed fracture of orbital wall with routine healing, subsequent encounter; Hospital discharge follow-up; Liver lesion Social History Tobacco Use Types Packs/Day Years [...] Mass Index 29.38 10/17/2024 2:20 PM EDT documented in this encounter Progress Notes * Flora Santiago, THERMAL CUTTER HAND - 10/17/2024 2:00 PM EDT Subjective Steven Stanley is a 59 y.o. male w/ PMH T2DM, decompensated cirrhosis, HTN, GERD, HLD, fibromyalgia,who presents to the office for a Hospital Discharge Follow Up. Pharm[place] [facility] [place] Patient with PMH of decompensated cirrhosis with ongoing HCC workup presented as a transfer [place] [facility] [place] a mechanical fall down 8-[address] at [facility] showed left sided rib fractures 3-7, healed old right sided rib fractures, significant cirrhosis and left inferior orbital wall fracture associated with hemosinus. Trauma surgery consulted. Pain well controlled on oral pain medication. Cleared for discharge, to follow up in 1 to 2 weeks for evaluation ([facility] [place] at 2:20 pm). Patient to complete Augmentin for 7 days and placed on sinus precautions 10/07/24: CT Abd pelvic in ED for fall hx. 1. Multiple acute fractures involving the left [...] emergency room on 10/07/2024 at 12:[address] head/brain: There are minimally displaced fractures of the anterior and posterior wall of the left maxillary sinus. This extends into the left pterygoid plate. There is a minimally displaced fracture of the left orbital floor without extraconal fat herniation. There is mild diastases of the left frontozygomatic suture in the left lateral orbit. There is blood within the left maxillary sinus. Today: -Mr. Stanley reports that he completed course of Augmentin as prescribed. Continues with moderate pain on left side of body (ribs primarily), although pain is tolerable. He declines interest in additional pain meds at this time. Re: liver lesion - Reports that he did complete outpatient MRI and has follow-up scheduled with GI on 10/20/2024. Also reviewed upcoming appointment with trauma teamon 10/22/2024. Has been adherent with sinus precautions. Review of Systems Constitutional: Negative for chills and fever. Respiratory: Negative for cough, shortness of breath and wheezing. Cardiovascular: Negative for chest pain and palpitations. Gastrointestinal: Negative for blood in stool, diarrhea, nausea and vomiting. Musculoskeletal: Positive for arthralgias. Psychiatric/Behavioral: Negative for suicidal ideas. Objective Visit Vitals BP 118/74 (BP Location: Left arm, Patient Position: Sitting, BP Cuff Size: Large adult) Pulse 85 Temp 98.7 ??F (37.1 ??C) (Oral) Resp 18 Ht 5' 8 (1.727 m) Wt 193 lb 4 oz (87.7 kg) SpO2 99% BMI 29.38 kg/m?? Smoking Status Never BSA 2.05 m?? Physical Exam Vitals reviewed. Constitutional: Appearance: Normal appearance. HENT: Head: Atraumatic. Right Ear: External ear normal. Left Ear: External ear normal. Cardiovascular: Rate and Rhythm: Normal rate. Pulmonary: Effort: Pulmonary effort is normal. Breath sounds: Normal breath sounds. Skin: Comments: Ecchymosis to left upper buttock, TTP around left shoulder. No erythema, edema, or ecchymosis over left rib cage. Neurological: Mental Status: He is alert and oriented to person, place, and time. Psychiatric: Mood and Affect: Mood normal. Behavior: Behavior normal. Assessment/Plan Problem List Items Addressed This Visit Digestive Liver lesion Current Assessment & Plan - October 2024: CT abd/pelvis - 1.4 cm hyperenhancing lesion in the left lobe, highly suspicious for hepatocellular carcinoma. Lab Results Component Value Date AFP 2.7 08/13/2024 - Reports completed OP MRI liver and is now pending follow up with GI as scheduled 10/20/24 to review results Other Visit Diagnoses Closed fracture of multiple ribs of left side with routine healing, subsequent encounter - Primary - Follow up with [facility] Trauma team as scheduled 10/22/24 Closed fracture of orbital wall with routine healing, subsequent encounter - Continue sinus precautions Hospital discharge follow-up -see above Follow up: November 2024 as scheduled, sooner as needed Current Outpatient Medications Medication Sig Dispense Refill B Complex Vitamins (Vitamin-B Complex) tablet Take 1 tablet by mouth Once per day. beta carotene (vitamin A) 3 MG (05264 UT) capsule Take 10,000 Units by mouth in the morning. Blood Pressure kit Use to check blood pressure once daily and when symptomatic 1 kit 0 cholecalciferol VITAMIN D (Vitamin D-3) 50 MCG (2000 UT) tablet TAKE 1 TABLET BY MOUTH EVERY EVENING 90 tablet 3 Continuous Blood Gluc Tool And Die Maker Level Five (FreeStyle Bill 2 [place]) device Scan sensor every 8 hours 1 each 0 Continuous Glucose Tool And Die Maker Level Five (FreeStyle Bill 3 [place]) device 1 each Once per day. Use as directed for CGM 1 each 0 Continuous Glucose Sensor (FreeStyle Bill 2 Sensor) misc USE DIRECTED CHANGE EVERY 14 DAYS 2 each 11 Continuous Glucose Sensor (FreeStyle Bill 3 Plus Sensor) misc 1 each every 15 days. Apply 1 every 15 days as directed for CGM 2 each 11 Diclofenac Sodium 1 % gel APPLY 2 GRAMS TOPICALLY TO AFFECTED AREA(S) TWICE DAILY NEEDED 100 g 2 empagliflozin (Jardiance) 25 MG TAKE 1 TABLET BY MOUTH EVERY MORNING 90 tablet 1 folic acid (Folvite) 1 MG tablet Take 1 tablet by mouth Once per day. gabapentin (Neurontin) 100 MG capsule Take 1 capsule by mouth every 8 (eight) hours if needed (pain). glucose blood (FreeStyle Precision Ric Test) test strip USE DIRECTED TO TEST BLOOD SUGAR THREE TIMES DAILY 100 each 11 Inspra 50 MG tablet TAKE 1 TABLET BY MOUTH EVERY MORNING 90 tablet 1 insulin degludec (Tresiba FlexTouch) 100 UNIT/ML injection INJECT 16 UNITS SUBCUTANEOUSLY AT BEDTIME 15 mL 5 insulin lispro (HumaLOG) 100 UNIT/ML injection Inject 20-22 units subcutaneously before each meal up to 3 times a day 15 mL 5 insulin pen needle (Sure Comfort Pen Baker) 31G x 5 mm misc USE DIRECTED FOUR TIMES DAILY 100 each 11 ketoconazole (NIZOral) 2 % shampoo APPLY 5-10 ML TOPICALLY TO WET CLEAN HAIR, LATHER, LEAVE ON FOR 3-5 MINUTES, THEN RINSE. USE EVERY 1-2 WEEKS OR TWICE A WEEK NEEDED 120 mL 1 lidocaine (Lidoderm) 5 % patch APPLY 1 PATCH TOPICALLY TO SKIN, LEAVE ON FOR 12 HOURS AND OFF FOR 12 HOURS DIRECTED 30 patch 11 lisinopril 10 MG tablet Take 1 tablet (10 mg) by mouth Once per day. 90 tablet 3 meloxicam (Mobic) 7.5 MG tablet Take 1 tablet (7.5 mg) by mouth 2 times daily. 60 tablet 11 pantoprazole (ProtoNix) 40 MG EC tablet Take 1 tablet by mouth Once per day. Praluent 75 MG/ML injection INJECT 75 MG SUBCUTANEOUSLY EVERY 2 WEEKS. ROTATE INJECTION SITES tadalafil (Cialis) 5 MG tablet Take 1 tablet by mouth Once per day. thiamine (Vitamin B-1) 100 MG tablet Take 100 mg by mouth 2 times daily. TRUEplus Lancets 33G [facility] TEST BLOOD SUGAR THREE TIMES DAILY 100 each 11 zinc sulfate (Zincate) 220 (50 Zn) MG capsule Take 50 mg of elemental zinc by mouth in the morning. No current facility-administered medications for this visit. documented in this encounter Miscellaneous Notes * Assessment & Plan Note - CIARRA Josue - 10/19/2024 4:18 PM EDTAssociated Problem(s): Liver lesion - October 2024: CT abd/pelvis - 1.4 cm hyperenhancing lesion in the left lobe, highly suspicious for hepatocellular carcinoma. Lab Results Component Value Date AFP 2.7 08/13/2024 - Reports completed OP MRI liver and is now pending follow up with GI as scheduled 10/19/24 to review results documented in this encounter Plan of Treatment Upcoming Encounters Date Type Department Care Team (Late st Contact Info) Description 11/12/2024 9:45 AM EDT Office Visit [facility] MED[facility] [address] [place] [address] Flora Santiago FNP [address] [place] [address] 12/22/2024 9:30 AM EDT Medication Management [facility] [address] [place] [address] Kandi Panda, RobertD [address] [place] [address] 12/24/2024 8:00 AM EDT Office Visit [facility] ADULT DENTAL [address] [place] [address] Angelica Saenz [address] [place] [address] documented as of this encounter Goals Goal Patient Goal Type Associated Problems Recent Progress Patient-Stated? Author Blood Pressure < 140/90 Blood Pressure 118/74(2024 2:20 PM EDT) No Jose Maria Novak Hemoglobin A1c < 7 Result Component 7.4( 11:00 AM EDT) No Jose Maria Novak documented as of this encounter Visit Diagnoses Diagnosis Closed fracture of multiple ribs of left side with routine healing, subsequent encounter- Primary Closed fracture of orbital wall with routine healing, subsequent encounter Hospital discharge follow-up Other follow-up examination Liver lesion Other specified disorders of liver documented in this encounter Additional Health Concerns Assessment Noted Time PHQ-9 Depression Total Score: 0 11/30/19 11:07 AM EDT documented as of this encounter Care Teams Human Resources Benefits Administrator Relationship Specialty Start Date End Date Flora Santiago FNP [address] [place] [address] PCP - General Family Medicine 05/02/21 Sherin Hall, RN [address] [place] [address] Concept Artist Family Medicine 07/30/23 Juan Jose Deshpande MD [address] [place] [address] Nephrology 06/13/24 Michael Glass MD [address] [place] [address] Dr 3[address] [place] [address] General Surgery 06/13/24 Demetrius Austin MD [address] [place] [address] Orthopaedic Surgery 06/13/24 Harry Garcia MD [address] [place] [address] Gastroenterology 06/13/24 Jovany Feliciano MD [address] [place] [address] Cardiology 06/13/24 Kandi Panda, RobertD [address] [place] [address] Pharmacist Internal Medicine 08/18/24 Angelica Saenz [address] [place] [address] Dental Hygienist Dental Fashion Consultant 08/20/24 Mao Palomino DDS [address] [place] [address] Dentist Dental Fashion Consultant 08/20/24 documented as of this encounter
--- OUTSIDE RECORDS SUMMARY | 2024-10-20 14:07 | XMS_ITS | Encounter Summary ---
Author Organization [employer] Address [address] [facility] 7t [place] [address] Care Team Providers Care Senior Health Educator Name Role Phone Flora Santiago Primary Care Provider [phone] Sherin Hall RN Unavailable [phone] Juan Jose Deshpande MD Unavailable [phone] Michael Glass MD Unavailable [phone] Demetrius Austin MD Unavailable Harry Garcia MD Unavailable [phone] Jovany Feliciano MD Unavailable Kandi PandaD Unavailable Angelica Saenz Unavailable Mao Palomino DDS Unavailable [phone] Reason for Visit * Reason Comments Care Coordination C3/CM Outreach Encounter Details Date Type Department Care Team (Latest Contact Info) Description 10/15/2024 Patient Outreach [facility] MED[facility]INE [address] [place] [address] Flora Santiago FNP [address] [place], [place] [phone] Care Coordination (C3/CM Outreach) Social History Tobacco Use Types Packs/Day Years [...] as of this encounter Progress Notes * Swapna Santacruz - 10/15/2024 10:44 AM EDT CHW Swapna Santacruz, placed outbound call to patient introducing herself from [facility], in regards to offering services. Patient's name and was confirmed. Patient agrees to participate in program. Appt. for initial assessment scheduled for 11/03/24 @ 10:00 AM. CHW reinforced direct contact information or for any additional questions or concerns and extended clinic hours on Mondays and Wednesdays, and Walk-In Urgent Care Located in [facility]. Patient provided with after-hours line for [facility], , which offer night time triage service and option to transfer to trauma surgeon provider if needed. Patient verbalizes understanding, and able to repeat back to typewriters functional tester. documented in this encounter Plan of Treatment Upcoming Encounters Date Type Department Care Team (Late st Contact Info) Description 11/12/2024 9:45 AM EDT Office Visit [facility] MEDICINE [address] [place] [address] Flora Santiago FNP [address] [place] [address] 12/22/2024 9:30 AM EDT Medication Management [facility] MED[facility]INE [address] [place] [address] Kandi Panda PharmD [address] [place] [address] 12/24/2024 8:00 AM EDT Office Visit [facility] ADULT DENTAL [address] [place] [address] Dallin Saenzaris [address] [place] [address] documented as of this encounter Goals Goal [...] as of this encounter Care Teams Senior Health Educator Relationship Specialty Start Date End Date Flora Santiago FNP [address] [place] [address] PCP - General Family Medicine 05/02/21 Sherin Hall, RN [address] [place] [address] Induction Machine Operator Family Medicine 07/30/23 Juan Jose Deshpande MD [address] [place] [address] Nephrology 06/13/24 Michael Glass MD [address] [place] [address] Dr [address] [place] [address] General Surgery 06/13/24 Demetrius Austin MD [address] [place] [address] Orthopaedic Surgery 06/13/24 Harry Garcia MD [address] [place] [address] Gastroenterology 06/13/24 Jovany Feliciano MD [address] [facility] [address] [place] [address] Cardiology 06/13/24 Kandi Panda PharmD [address] [place] [address] Pharmacist Internal Medicine 08/18/24 Angelica Saenz [address] [place] [address] Dental Hygienist Dental Digital Experience Manager 08/20/24 Mao Palomino DDS [address] [place] [address] Dentist Dental Digital Experience Manager 08/20/24 documented as of this encounter
--- OUTSIDE RECORDS SUMMARY | 2024-10-20 14:07 | XMS_ITS | Encounter Summary ---
Author Organization [employer] Address 75 [facility] 7t [place] [address] Care Team Providers Care Medical Superintendent Name Role Phone Flora Santiago Primary Care Provider Sherin Hall RN Unavailable [phone] Juan Jose Deshpande MD Unavailable [phone] Michael Glass MD Unavailable [phone] Demetrius Austin MD Unavailable Harry Garcia MD Unavailable [phone] Jovany Feliciano MD Unavailable Kandi Panda PharmD Unavailable [phone] Angelica Saenz Unavailable Mao Palomino DDS Unavailable [phone] Reason for Visit * Reason Comments Med Refill Encounter Details Date Type Department Care Team (Late st Contact Info) Description 09/10/2024 Refill [facility] [address] [place] [address] Flora Santiago FNP [address] [place], [place] [phone] Social History Tobacco Use Types Packs/Day Years [...] Description 11/12/2024 9:45 AM EDT Office Visit [facility] [address] [place] [address] Flora Santiago, CIARRA [address] [place] [address] 12/22/2024 9:30 AM EDT Medication Management [facility] [address] [place] [address] Kandi Panda, PharmD [address] [place] [address] 12/24/2024 8:00 AM EDT Office Visit [facility] [address] [place] [address] Angelica Saenz [address] [place] [address] documented as of this encounter Goals Goal [...] documented as of this encounter Care Teams Medical Superintendent Relationship Specialty Start Date End Date Flora Santiago FNP [address] [place] [address] PCP - General Family Medicine 05/02/21 Sherin Hall, MICHELLE [address] [place] [address] Outsole Tacker Family Medicine 07/30/23 Juan Jose Deshpande MD [address] [place] [address] Nephrology 06/13/24 Michael Glass MD [address] [place] [address] Dr [address] [place] [address] General Surgery 06/13/24 Demetrius Austin MD [address] [place] [address] Orthopaedic Surgery 06/13/24 Harry Garcia MD [address] [place] [address] Gastroenterology 06/13/24 Jovany Feliciano MD [address] 3rd [place] [address] Cardiology 06/13/24 Kandi Panda, Fredrick [address] [place] [address] Pharmacist Internal Medicine 08/18/24 Angelica Saenz [address] [place] [address] Dental Hygienist Dental Manager Merchandising 08/20/24 Mao Palomino DDS [address] [place] [address] Dentist Dental Manager Merchandising 08/20/24 documented as of this encounter
--- OUTSIDE RECORDS SUMMARY | 2024-10-20 14:07 | XMS_ITS | Encounter Summary ---
Author Organization [employer] Address 75 [facility] 7t [place] [address] Care Team Providers Care Spool Winder Name Role Phone Flora Santiago Primary Care Provider [phone] Sherin Hall RN Unavailable [phone] Juan Jose Deshpande MD Unavailable [phone] Michael Glass MD Unavailable [phone] Demetrius Austin MD Unavailable Harry Garcia MD Unavailable [phone] Jovany Feliciano MD Unavailable Kandi Panda PharmD Unavailable Angelica Saenz Unavailable Mao Palomino DDS Unavailable [phone] Encounter Details Date Type Department Care Team (Late st Contact Info) Description 10/15/2024 Patient Outreach [facility] [address] [place], [place] [phone] Flora Santiago FNP [address] [place] [address] Social History Tobacco Use Types Packs/Day Years [...] Description 11/12/2024 9:45 AM EDT Office Visit [facility] MEDICINE [address] [place] [address] Flora Santiago, PARTS PROCESSOR [address] [place] [address] 12/22/2024 9:30 AM EDT Medication Management [facility] [address] [place] [address] Kandi Panda, RboertD [address] [place] [address] 12/24/2024 8:00 AM EDT Office Visit [facility] ADULT DENTAL [address] [place] [address] Angelica Saenz [address] [place] [address] documented as of this encounter Goals Goal [...] documented as of this encounter Care Teams Spool Winder Relationship Specialty Start Date End Date Flora Santiago FNP [address] [place] [address] PCP - General Family Medicine 05/02/21 Sherin Hall, RN [address] [place] [address] Program Services Planner Family Medicine 07/30/23 Juan Jose Deshpande MD [address] [place] [address] Nephrology 06/13/24 Michael Glass MD [address] [place] [address] Dr [address] [place] [address] General Surgery 06/13/24 Demetrius Austin MD [address] [place] [address] Orthopaedic Surgery 06/13/24 Harry Garcia MD [address] [place] [address] Gastroenterology 06/13/24 Jovany Feliciano MD [address] 3rd [place] [address] Cardiology 06/13/24 Kandi Panda PharmD [address] [place] [address] Pharmacist Internal Medicine 08/18/24 Angelica Saenz [address] [place] [address] Dental Hygienist Dental Lan Specialist 08/20/24 Mao Palomino DDS [address] [place] [address] Dentist Dental Lan Specialist 08/20/24 documented as of this encounter
--- OUTSIDE RECORDS SUMMARY | 2024-10-20 14:07 | XMS_ITS | Encounter Summary ---
Author Organization [employer] Address 75 [facility] 7t [place] [address] Care Team Providers Care Carpenter General Name Role Phone Flora Santiago Primary Care Provider Sherin Hall RN Unavailable [phone] Juan Jose Deshpande MD Unavailable Michael Glass MD Unavailable [phone] Demetrius Austin MD Unavailable Harry Garcia MD Unavailable [phone] Jovany Feliciano MD Unavailable Kandi Panda PharmD Unavailable Angelica Saenz Unavailable Mao Palomino DDS Unavailable [phone] Reason for Visit * Reason Onset Date Comments Returning Call Back 12/19/2022 Encounter Details Date Type Department Care Team (Late st Contact Info) Description 12/19/2022 Telephone [facility] MEDICINE [address] [place] [address] Flora Santiago FNP [address] [place], [place] [phone] Returning Call Back Social History Tobacco Use [...] Description 11/12/2024 9:45 AM EDT Office Visit [facility] MEDICINE [address] [place] [address] Flora Santiago FNP [address] [place] [address] 12/22/2024 9:30 AM EDT Medication Management [facility] MED[facility]INE [address] [place] [address] Kandi Panda PharmD [address] [place] [address] 12/24/2024 8:00 AM EDT Office Visit [facility] ADULT DENTAL [address] [place] [address] Dany, Angelica [address] [place] [address] documented as of this encounter Visit Diagnoses Not on filedocumented in this encounter Care Teams Carpenter General Relationship Specialty Start Date End Date Flora Santiago FNP [address] [place] [address] PCP - General Family Medicine 05/02/21 Sherin Hall, MICHELLE [address] [place] [address] Leather Softener Family Medicine 07/30/23 Juan Jose Deshpande MD [address] [place] [address] Nephrology 06/13/24 Michael Glass MD [address] [facility] [address] [place] [address] General Surgery 06/13/24 Demetrius Austin MD [address] [place] [address] Orthopaedic Surgery 06/13/24 Harry Garcia MD [address] [address] Gastroenterology 06/13/24 Jovany Feliciano MD [address] [address] Cardiology 06/13/24 Kandi Panda PharmD [address] [place] [address] Pharmacist Internal Medicine 08/18/24 Angelica Saenz [address] [place] [address] Dental Hygienist Dental Digital Marketing Strategist 08/20/24 Mao Palomino DDS [address] [place] [address] Dentist Dental Digital Marketing Strategist 08/20/24 documented as of this encounter
--- OUTSIDE RECORDS SUMMARY | 2024-10-20 14:07 | XMS_ITS ---
Author Organization [facility] Address 75 [facility] 7t [place] [address] Care Team Providers Care Child Support Case Officer Name Role Phone Flora Santiago Primary Care Provider [phone] Sherin Hall RN Unavailable [phone] Juan Jose Deshpande MD Unavailable [phone] Michael Glass MD Unavailable [phone] Demetrius Austin MD Unavailable Harry Garcia MD Unavailable [phone] Jovany Feliciano MD Unavailable [phone] Kandi Panda PharmD Unavailable Angelica Saenz Unavailable Mao Palomino DDS Unavailable [phone] CM Complex Status:Outreach In Progress (Enrolling) Start date:10/09/2024 Enrollment reason:ADT Feed Overview ADT- Pt admitted [facility] [place]. Case Team Name Relationship Phone Yaneth Rondon RN Registered Nurse(Responsible S taff) Continued Care and Services Coordination
--- OUTSIDE RECORDS SUMMARY | 2024-10-20 14:07 | XMS_ITS | Encounter Summary ---
Author Organization [employer] Address [address] [place] [address] 7t [place] [address] Care Team Providers Care Certified Personal Trainer Name Role Phone Flora Santiago SALESPERSON M[employer] HATS Primary Care Provider Sherin Hall RN Unavailable [phone] Juan Jose Deshpande MD Unavailable [phone] Michael Glass MD Unavailable [phone] Demetrius Austin MD Unavailable Harry Garcia MD Unavailable [phone] Jovany Feliciano MD Unavailable Kandi Panda PharmD Unavailable Angelica Saenz Unavailable Mao Palomino DDS Unavailable [phone] Encounter Details Date Type Department Care Team (Late st Contact Info) Description 02/22/2023 Orders Only [facility] MEDICINE [address] [place], [place] [phone] Yanique Hart MD [address] [place], [place] [phone] Other ascites (Primary Dx) Social History Tobacco [...] 11/12/2024 9:45 AM EDT Office Visit [facility] MEDICINE [address] [place] [address] Flora Santiago FNP [address] [place], [place] [id number] 12/22/2024 9:30 AM EDT Medication Management [facility] MEDICINE [address] [place] [address] Kandi Panda PharmD [address] [place] [address] 12/24/2024 8:00 AM EDT Office Visit [facility] ADULT DENTAL [address] [place] [address] Dany, Angelica [address] [place] [address] Scheduled Orders Name Type Priority Associated Diagnoses [...] Primary documented in this encounter Care Teams Certified Personal Trainer Relationship Specialty Start Date End Date Flora Santiago FNP [address] [place] [address] PCP - General Family Medicine 05/02/21 Sherin Hall, RN [address] [place] [address] Crop Scout Family Medicine 07/30/23 Juan Jose Deshpande MD [address] [place] [address] Nephrology 06/13/24 Michael Glass MD [address] 3rd [place] [address] General Surgery 06/13/24 Demetrius Austin MD [address] [place] [address] Orthopaedic Surgery 06/13/24 Harry Garcia MD [address] [place] [address] Gastroenterology 06/13/24 Jovany Feliciano MD [address] [address] Cardiology 06/13/24 Kandi Panda PharmD [address] [place] [address] Pharmacist Internal Medicine 08/18/24 Angelica Saenz [address] [place] [address] Dental Hygienist Dental Medical Secretary Teacher 08/20/24 Mao Palomino DDS [address] [place] [address] Dentist Dental Medical Secretary Teacher 08/20/24 documented as of this encounter
--- OUTSIDE RECORDS SUMMARY | 2024-10-20 14:07 | XMS_ITS | Encounter Summary ---
Author Organization [employer] Address [address] [facility] 7t [place] [address] Care Team Providers Care Mail Superintendent Name Role Phone Flora Santiago MEDICAID BUSINESS ANALYST Primary Care Provider Sherin Hall RN Unavailable [phone] Juan Jose Deshpande MD Unavailable [phone] Michael Glass MD Unavailable [phone] Demetrius Austin MD Unavailable Harry Garcia MD Unavailable [phone] Jovany Feliciano MD Unavailable Kandi Panda PharmD Unavailable [phone] Angelica Saenz Unavailable Mao Palomino DDS Unavailable [phone] Encounter Details Date Type Department Care Team (Late st Contact Info) Description 10/04/[address] [facility] CHC MED & PEDS [address] [place], [place] [phone] Shahnaz Perez LPN Social History Tobacco Use [...] Description 11/12/2024 9:45 AM EDT Office Visit [facility] MEDICINE 230 [place] [address] Flora Santiago FNP [address] [place] [address] 12/22/2024 9:30 AM EDT Medication Management [facility] MEDICINE [address] [place] [address] Kandi Panda PharmD 230 [place] [address] 12/24/2024 8:00 AM EDT Office Visit [facility] ADULT DENTAL 230 [place] [address] Dallin Saenzaris 230 [place] [address] documented as of this encounter Visit Diagnoses Not on filedocumented in this encounter Care Teams Mail Superintendent Relationship Specialty Start Date End Date Flora Santiago FNP 230 [place] [address] PCP - General Family Medicine 05/02/21 Sherin Hall, MICHELLE [address] [place] [address] Balcony Worker Family Medicine 07/30/23 Juan Jose Deshpande MD [address] [place] [address] Nephrology 06/13/24 Michael Glass MD [address] [place] [address] Dr [address] [place] [address] General Surgery 06/13/24 Demetrius Austin MD [address] [place] [address] Orthopaedic Surgery 06/13/24 Harry Garcia MD [address] [place] [address] Gastroenterology 06/13/24 Jovany Feliciano MD [address] 3rd [place] [address] Cardiology 06/13/24 Kandi Panda PharmD 230 [place] [address] Pharmacist Internal Medicine 08/18/24 Angelica Saenz 230 [place] [address] Dental Hygienist Dental Desk Pen Set Assembler 08/20/24 Mao Palomino DDS 230 [place] [address] Dentist Dental Desk Pen Set Assembler 08/20/24 documented as of this encounter
--- OUTSIDE RECORDS SUMMARY | 2024-10-20 14:07 | XMS_ITS | Encounter Summary ---
Author Organization [employer] Address [address] [facility] 7t [place] [address] Care Team Providers Care Banquet Manager Name Role Phone Flora Santiago SHEET METAL SUPERINTENDENT Primary Care Provider Sherin Hall RN Unavailable [phone] Juan Jose Deshpande MD Unavailable [phone] Michael Glass MD Unavailable [phone] Demetrius Austin MD Unavailable Harry Garcia MD Unavailable [phone] Jovany Feliciano MD Unavailable Kandi Panda PharmD Unavailable Angelica Saenz Unavailable Mao Palomino DDS Unavailable [phone] Encounter Details Date Type Department Care Team (Late st Contact Info) Description 07/14/2022 Orders Only [facility] CHC MED & PEDS 505 [place], [place] [phone] Shahnaz Perez LPN Social History Tobacco Use [...] Description 11/12/2024 9:45 AM EDT Office Visit [facility] MEDICINE 230 [place] [address] Flora Santiago FNP [address] [place] [address] 12/22/2024 9:30 AM EDT Medication Management [facility] MEDICINE 230 [place] [address] Kandi Panda PharmD 230 [place] [address] 12/24/2024 8:00 AM EDT Office Visit [facility] ADULT DENTAL 230 [place] [address] Angelica Saenz 230 [place] [address] documented as of this encounter Visit Diagnoses Not on filedocumented in this encounter Care Teams Banquet Manager Relationship Specialty Start Date End Date Flora Santiago FNP [address] [place] [address] PCP - General Family Medicine 05/02/21 Sherin Hall, RN [address] [place] [address] [employer] Manager Architect Family Medicine 07/30/23 Juan Jose Deshpande MD [address] [place] [address] Nephrology 06/13/24 Michael Glass MD [address] [place] [address] Dr 3rd [place] [address] General Surgery 06/13/24 Demetrius Austin MD [address] [place] [address] Orthopaedic Surgery 06/13/24 Harry Garcia MD [address] [place] [address] Gastroenterology 06/13/24 Jovany Feliciano MD [address] [place] [address] Cardiology 06/13/24 Kandi Panda, Fredrick 230 [place] [address] Pharmacist Internal Medicine 08/18/24 Angelica Saenz [address] [place] [address] Dental Hygienist Dental Undertaker Assistant 08/20/24 Mao Palomino DDS [address] [place] [address] Dentist Dental Undertaker Assistant 08/20/24 documented as of this encounter
--- OUTSIDE RECORDS SUMMARY | 2024-10-20 14:07 | XMS_ITS | Encounter Summary ---
Author Organization [employer] Address [address] [facility] 7t [place] [address] Care Team Providers Care Mechanical Door Repairer Name Role Phone Flora Santiago Primary Care Provider Sherin Hall RN Unavailable Juan Jose Deshpande MD Unavailable [phone] Michael Glass MD Unavailable [phone] Demetrius Austin MD Unavailable Harry Garcia MD Unavailable [phone] Jovany Feliciano MD Unavailable [phone] Kandi Panda PharmD Unavailable Angelica Saenz Unavailable Mao Palomino DDS Unavailable [phone] Encounter Details Date Type Department Care Team (Latest Contact Info) Description 01/13/2021 Abstract [facility] CONVERSIONS Dental, Provider, DDS Social History Tobacco [...] Description 11/12/2024 9:45 AM EDT Office Visit [facility] MEDICINE 230 [place] [address] Flora Santiago FNP 505 [place] [address] 12/22/2024 9:30 AM EDT Medication Management [facility] MEDICINE [address] [place] [address] Kandi Panda PharmD 230 [place] [address] 12/24/2024 8:00 AM EDT Office Visit [facility] ADULT DENTAL 230 [place] [address] Dany, Angelica 230 [place] [address] documented as of this encounter Visit Diagnoses Not on filedocumented in this encounter Care Teams Mechanical Door Repairer Relationship Specialty Start Date End Date Flora Santiago FNP 230 [place] [address] PCP - General Family Medicine 05/02/21 Sherin Hall, RN [address] [place] [address] Prenatal Nurse Family Medicine 07/30/23 Juan Jose Deshpande MD [address] [place] [address] Nephrology 06/13/24 Michael Glass MD [address] [place] [address] Dr 3rd [place] [address] General Surgery 06/13/24 Demetrius Austin MD [address] [place] [address] Orthopaedic Surgery 06/13/24 Harry Garcia MD [address] [place] [address] Gastroenterology 06/13/24 Jovany Feliciano MD [address] [facility] [address] 3rd [place] [address] Cardiology 06/13/24 Kandi Panda PharmD 230 [place] [address] Pharmacist Internal Medicine 08/18/24 Angelica Saenz 230 [place] [address] Dental Hygienist Dental Microbiology Technologist 08/20/24 Mao Palomino DDS 230 [place] [address] Dentist Dental Microbiology Technologist 08/20/24 documented as of this encounter
--- OUTSIDE RECORDS SUMMARY | 2024-10-20 14:07 | XMS_ITS | Encounter Summary ---
Author Organization [employer] Address [address] [facility] 7t [place] [address] Care Team Providers Care Park Keeper Name Role Phone Flora Santiago TENANT SELECTOR Primary Care Provider [phone] Sherin Hall RN Unavailable Juan Jose Deshpande MD Unavailable [phone] Michael Glass MD Unavailable [phone] Demetrius Austin MD Unavailable Harry Garcia MD Unavailable [phone] Jovany Feliciano MD Unavailable Kandi Panda PharmD Unavailable [phone] Angelica Saenz Unavailable Mao Palomino DDS Unavailable [phone] Encounter Details Date Type Department Care Team (Latest Contact Info) Description 10/17/2024 Travel Social History Tobacco Use Types Packs/Day [...] Description 11/12/2024 9:45 AM EDT Office Visit [facility] MEDICINE [address] [place] [address] Flora Santiago, TENANT SELECTOR 505 [place] [address] 12/22/2024 9:30 AM EDT Medication Management [facility] MEDICINE [address] [place] [address] Kandi Panda, RobertD 230 [place] [address] 12/24/2024 8:00 AM EDT Office Visit [facility] ADULT DENTAL [address] [place] [address] Angelica Saenz 230 [place] [address] documented as of this encounter Goals Goal [...] documented as of this encounter Care Teams Park Keeper Relationship Specialty Start Date End Date Flora Santiago FNP 230 [place] [address] PCP - General Family Medicine 05/02/21 Sherin Hall, RN 230 [place] [address] Hose Operator Family Medicine 07/30/23 Juan Jose Deshpande MD [address] [place] [address] Nephrology 06/13/24 Michael Glass MD [address] [place] [address] Dr [address] [place] [address] General Surgery 06/13/24 Demetrius Austin MD [address] [place] [address] Orthopaedic Surgery 06/13/24 Harry Garcia MD [address] [address] Gastroenterology 06/13/24 Jovany Feliciano MD [address] [place] [address] Cardiology 06/13/24 Kandi Panda PharmD 230 [place] [address] Pharmacist Internal Medicine 08/18/24 Angelica Saenz 230 [place], [place] [phone] Dental Hygienist Dental Chartered Wealth Manager 08/20/24 Mao Palomino DDS 230 [place], [place] [phone] Dentist Dental Chartered Wealth Manager 08/20/24 documented as of this encounter
== END 2024-10-20 12:43 | disposition home or self-care (01) ==
PROVIDERS: PCP Registered Nurse; Visit Provider Internal Medicine Gastroenterology
DX: K74.60 Unspecified cirrhosis of liver (principal)
CPT/HCPCS: 99214

== ENCOUNTER → 2024-10-20 12:04 | Outpatient (BNVA) | payer MEDICAID, SELFPAY | PROVIDERS: PCP Registered Nurse; Visit Provider Internal Medicine Gastroenterology | DX: K74.60 Unspecified cirrhosis of liver (principal); Z91.81 History of falling | CPT/HCPCS: 99212 ==

== ENCOUNTER 2024-10-23 14:53 | Emergency (ER) | payer MEDICAID, SELFPAY ==
--- NOTE | ~2024-10-23 | XR_ITS ---
EXAMINATION: XR CHEST CLINICAL INFORMATION: chest pain COMPARISON: Chest x-ray 09/05/2024 TECHNIQUE: 2 views of the chest were obtained. FINDINGS: The lungs are expanded and clear. Heart size and pulmonary vascularity is normal. There is no pleural effusion. There are multiple left rib fractures involving the fourth, fifth, sixth, seventh ribs with deformity. There is no visible pneumothorax or pleural effusion. Rest of the bony thorax is normal. XR/XR chest 2V IMPRESSION: Ultrasound-guided left upper of fractures involving fourth, fifth, sixth ribs with mild deformity. No pleural effusion or pneumothorax seen. Electronically signed by: José Miguel Art MD 10/23/2024 04:27 PM EDT
--- NOTE | 2024-10-23 15:00 | ECG_ITS ---
Test Reason : chest pain Blood Pressure : */* mmHG Vent. Rate : 93 BPM Atrial Rate : 93 BPM P-R Int : 166 ms QRS Dur : 86 ms QT Int : 350 ms P-R-T Axes : 24 2 21 degrees QTcB Int : 435 ms Normal sinus rhythm Normal ECG When compared with ECG of 07-Oct-2024 11:02, No significant change was found Referred By: Rebecca Perales Electronically Signed By: MIGUELITO FLYNN MD
[2024-10-23 15:12] VITALS: BP 150/96; PULSE 104; RESP 18; TEMP 36.1; O2SAT 96; BMI 28.1
--- NOTE | 2024-10-23 15:13 | ED.GENADULT ---
HPI - General Adult General Chief complaint: Chest Pain Stated complaint: chest pain Time Seen by Provider: 10/23/24 16:27 Source: patient Mode of arrival: EMS Limitations: no limitations History of Present Illness ED Provider: HPI narrative: 59 year old male with pmhx significant for T2DM, HLD, HTN, CAD, GERD, CKD, cirrhosis, and depression, alcohol use comes here with left-sided chest pain at the site of the rib fracture. Patient apparently fell on 10/07/2024 about 10 stairs and was seen in our ED workup showed that he had multiple rib fracture 3 to 7 on the left side patient has says that pain is going on since the fall. Patient went to [facility] and was discharged from trauma no recent fall no shortness a breath Related Data Home Medications ?Medication ?Instructions ?Recorded ?Confirmed insulin degludec 100 unit/mL (3 20 unit subcut BEDTIME 05/26/20 07/31/24 mL) subcutaneous pen (Tresiba FlexTouch U-100 insulin) insulin lispro 100 unit/mL 1 sliding scale dose subcut TIDAC 05/26/20 07/31/24 subcutaneous pen (Humalog KwikPen (U-100) Insulin) cholecalciferol (vitamin D3) 50 50 mcg PO DAILY 01/01/23 07/31/24 mcg (2,000 unit) tablet empagliflozin 25 mg tablet 25 mg PO QAM 09/14/23 07/31/24 (Jardiance) blood sugar diagnostic (FreeStyle #10 ea 04/28/24 07/31/24 Lite Strips) flash glucose sensor (FreeStyle #1 ea 04/28/24 07/31/24 Bill 2 Sensor kit) lancets 33 gauge (TRUEplus Lancets) #100 ea 04/28/24 07/31/24 pen needle, diabetic 31 gauge x #1,200 ea 04/28/24 07/31/2409/21 (Sure Comfort Pen Needle) lisinopril 10 mg tablet 10 mg PO DAILY 07/30/24 07/31/24 diclofenac sodium 1 % topical gel 2 g topical BID PRN 09/15/24 eplerenone 50 mg tablet (Inspra) 50 mg PO QAM 09/15/24 meloxicam 7.5 mg tablet 7.5 mg PO DAILY 03/10/25 folic acid 1 mg tablet 1 mg PO DAILY 10/20/24 vitamin B complex-folic acid 0.4 1 tab PO QAM 10/20/24 mg tablet (B Complex 1 (with folic acid)) Previous Rx's ?Medication ?Instructions ?Recorded rifaximin 550 mg tablet 550 mg PO TID 2 weeks #42 tabs 09/14/23 tadalafil 20 mg tablet (Cialis) 20 mg PO .PRN PRN sexual activity 12/31/23 90 days #45 tabs tadalafil 5 mg tablet (Cialis) 5 mg PO DAILY 90 days #90 tabs 12/31/23 cyclobenzaprine 5 mg tablet 5 mg PO TID PRN muscle spasm #10 03/20/24 tabs lidocaine 5 % topical patch 1 patch topical DAILY #15 ea 03/20/24 zinc sulfate 50 mg zinc (220 mg) 50 mg PO QPM #90 caps 04/10/24 capsule metoprolol succinate 25 mg capsule 25 mg PO DAILY #30 ea 07/17/24 sprinkle, ext. release 24 hr vitamin A 3,000 mcg (10,000 unit) 1 cap PO QPM #90 caps 08/18/24 capsule pantoprazole 40 mg tablet,delayed 40 mg PO DAILY #60 tabs 09/15/24 release alirocumab 75 mg/mL subcutaneous See Rx Instructions .Route 10/01/24 pen injector (Praluent Pen) .COMPLEX #2 mL oxycodone 5 mg tablet 5 mg PO Q6H PRN pain #20 tabs 10/23/24 Allergies Allergy/AdvReac Type Severity Reaction Status Date / Time shrimp Allergy Severe Difficulty Verified 10/23/24 15:14 Breathing atorvastatin [ATORVASTATIN] AdvReac Intermediate elevated Verified 10/23/24 15:14 LFTs Review of Systems Review of Systems: Yes all other systems are reviewed and are negative COUNT INCLUDES THE [facility] Past Medical History Medical History Diabetes Back pain GERD (gastroesophageal reflux disease) Cirrhosis CAD (coronary artery disease) Palpitations Arthritis Fibromyalgia SALGUERO (nonalcoholic steatohepatitis) Fatty liver Depression Hyperlipidemia, unspecified Type 2 diabetes mellitus with unspecified complications Essential hypertension Atherosclerotic cardiovascular disease Surgical History History of umbilical hernia repair (05/23/24) History of abdominal paracentesis Hx of cholecystectomy History of umbilical hernia repair Hx of endoscopy History of colonoscopy History of ankle surgery Left inguinal hernia (05/04/23) Gallstone Family History Family History Father Diabetes Mother No problems noted. Social History Social History Household Members: Spouse Housing: House Are you a primary progressive care nurse to a significant other at home: No Do you presently have visiting nurse or other home services: No Alcohol intake: current Alcohol intake frequency: 3 or more drinks per day Alcohol type: beer Comment: pt medicated Patient Tobacco Use Status: Current someday Tobacco user Tobacco use type: Cigar Smoked in Last 30 Days: No Use of substances other than those prescribed or required for medical reasons: Refusing to respond Advance Directives: No Advance Directives Information Provided: No service: No Current occupational status: employed Current occupation: [employer] Physical Exam ED Vital Signs: Vital Signs - 24 hr 10/23/24 15:12 Temperature 97 F Pulse Rate 104 H Respiratory Rate 18 Blood Pressure 150/96 H Pulse Oximetry 96 Oxygen Delivery Method Room Air BMI result Body Mass Index 28.1 Appearance: Alert. Oriented X3. No acute distress. Eyes: PERRLA, No Nystagmus ENT: Pharynx normal. Oral Mucosa moist Neck: Normal inspection. Neck supple. CVS: Normal heart rate and rhythm. Pulses normal. Respiratory: No respiratory distress. Equal air entry bilateral, no wheezing/rales/rhonchi tenderness left upper ribs on left no crepitus Abdomen: Soft and nontender. Bowel sounds are present, no mass palpable, no CVA tenderness Skin: Skin warm and dry. Normal skin color. Normal skin turgor. Extremities: No lower extremity edema. No calf tenderness Neuro: Oriented X 3. No motor deficit. No sensory deficit.No cerebellar signs , cranial nerves II-XII intact Course Course Course Narrative: This is a rapid medical exam performed by Gilberto Perales NP: Additional HPI, ROS, PE not included below will be deferred to primary provider. Patient is a 59-year-old male presenting to the ED with complaint of left anterior chest pain x 3 days. Patient seen here on 10/07 after a fall, was transferred to [facility] for left 3-7 posterior and left 4-6 lateral rib fractures, as well as multiple facial fractures. Plan: EKG, labs, CXR Medications Administered Discontinued Medications Generic Name Dose Route Start Last Admin Trade Name Agustinq PRN Reason Stop Dose Admin Oxycodone HCl 10 mg 10/23/24 16:49 10/23/24 16:58 Oxycodone Hcl Immed Release 5 Mg Tablet PO 10/23/24 16:50 10 mg ONCE ONE Administration Medical Decision Making Medical Decision Making MDM Narrative: Patient with left-sided chest pain alcoholic pain is at the location of rib fracture. Two sets of cardiac enzyme without any delta change patient is feeling much better during stay in the ER Lab Data MDM Lab Attestation statement: I reviewed the patient's lab results. 10/23/24 15:27 10/23/24 15:27 Labs: Lab Results 10/23/24 10/23/24 Range/Units 15:27 19:12 WBC 7.9 (4.8-10.8) X10*3/uL RBC 4.77 (4.60-5.80) X10*6/uL Hgb 12.4 L (14.0-18.0) g/dl Hct 38.8 L (42.0-52.0) % MCV 81.3 (80.0-98.0) fL MCH 26.0 L (27.0-33.0) pg MCHC 32.0 (31.0-36.0) g/dl RDW 14.4 (11.0-16.0) % Plt Count 342 (160-400) X10*3/uL MPV 9.1 L (9.4-12.4) fL Immature Gran % (Auto) 0.1 (0.0-0.4) % Neut % (Auto) 58.2 (45-73) % Lymph % (Auto) 33.5 (20-40) % Dodge % (Auto) 6.6 (2-11) % Eos % (Auto) 0.8 (0-4) % Baso % (Auto) 0.8 (0-2) % Lymph # (Auto) 2.7 (1.2-4.9) X10*3/uL Dodge # (Auto) 0.5 (0.1-1.2) X10*3/uL Eos # (Auto) 0.1 (0.0-0.4) X10*3/uL Baso # (Auto) 0.1 (0.0-0.2) X10*3/uL Abs Immat Gran (auto) 0.01 (0.00-0.03) X10*3/uL Absolute Neuts (auto) 4.6 (2.0-8.3) x10*3/uL Absolute Nucleated RBC 0.000 (0.0-0.012) X10*3/uL Nucleated RBC % (auto) 0.0 (0.0-0.2) /100WBC Sodium 137 (135-145) mmol/L Potassium 4.2 (3.3-5.1) mmol/L Chloride 99 (96-108) mmol/L Carbon Dioxide 24 (22-29) mmol/L Anion Gap 18 (12-20) BUN 4 L (9-16) mg/dL Creatinine 0.73 (0.5-1.4) mg/dL Estim Creat Clear Calc 114.9 Estimated GFR > 60 Random Glucose 215 H (60-115) mg/dL Calcium 9.1 (8.4-10.2) mg/dL Total Bilirubin 0.7 (0.0-1.0) mg/dL AST 80 H (5-37) U/L ALT 38 (0-40) U/L Alkaline Phosphatase 349 H (39-117) U/L Troponin I High Sens 16.8 D 22.5 (<3.5-35.0) ng/L Total Protein 8.0 (6.5-8.0) g/dL Albumin 4.0 (3.5-5.0) g/dL Ethyl Alcohol 364 H* mg/dL Independent Interpretation I performed an independent interpretation of an: EKG Interpretation: Normal sinus rhythm heart rate 93 beats per minute normal interval normal axis no acute STT wave changes no acute ischemia Radiology Impression Discussion of test interpretation with radiology: I have reviewed the radiologist's reading. Radiologist Impression: left upper of fractures involving fourth, fifth, sixth ribs with mild deformity. No pleural effusion or pneumothorax seen. Discharge Plan Discharge Clinical Impression: Fracture of rib Patient Disposition: Home, Self-Care Instructions: Rib Fracture (ED) Additional Instructions: Your chest pain is from the rib fractures Take pain medication as prescribed do not drink alcohol while taking pain meds Prescriptions: New oxycodone 5 mg tablet 5 mg PO Q6H PRN (Reason: pain) Qty: 20 0RF Rx Instructions: Partial Fill upon patient request. No Action zinc sulfate 50 mg zinc (220 mg) capsule 50 mg PO QPM Qty: 90 1RF vitamin A 3,000 mcg (10,000 unit) capsule 1 cap PO QPM Qty: 90 1RF Praluent Pen 75 mg/mL pen injector See Rx Instructions .ROUTE .COMPLEX Qty: 2 3RF Dose Instruction: INJECT 75 MG (1 PEN) SUBCUTANEOUSLY EVERY 2 WEEKS. ROTATE INJECTION SITES Rx Instructions: INJECT 75 MG (1 PEN) SUBCUTANEOUSLY EVERY 2 WEEKS. ROTATE INJECTION SITES metoprolol succinate 25 mg capsule,sprinkle,ER 24hr 25 mg PO DAILY Qty: 30 0RF lidocaine 5 % adhesive patch,medicated 1 patch topical DAILY Qty: 15 0RF Rx Instructions: leave on most painful area for up to 12 hrs cyclobenzaprine 5 mg tablet 5 mg PO TID PRN (Reason: muscle spasm) Qty: 10 0RF insulin lispro [Humalog KwikPen Insulin] 100 unit/mL insulin pen 1 sliding scale dose subcut TIDAC Tresiba FlexTouch U-100 100 unit/mL (3 mL) insulin pen 20 unit subcut BEDTIME cholecalciferol (vitamin D3) 50 mcg (2,000 unit) tablet 50 mcg PO DAILY tadalafil [Cialis] 5 mg tablet 5 mg PO DAILY 90 Days Qty: 90 1RF Rx Instructions: [id number] [facility]33 Member [id number] tadalafil [Cialis] 20 mg tablet 20 mg PO .PRN PRN (Reason: sexual activity) 90 Days Qty: 45 0RF Rx Instructions: administer approximately 30min before sexual activity; do not use more than 1 dose per 24hrs [id number] [facility]33 Member [id number] meloxicam 7.5 mg tablet 7.5 mg PO DAILY eplerenone [Inspra] 50 mg tablet 50 mg PO QAM diclofenac sodium 1 % gel 2 g topical BID PRN pantoprazole 40 mg tablet,delayed release (DR/EC) 40 mg PO DAILY Qty: 60 1RF Jardiance 25 mg tablet 25 mg PO QAM rifaximin 550 mg tablet 550 mg PO TID 14 Days Qty: 42 0RF lisinopril 10 mg tablet 10 mg PO DAILY (DME) FreeStyle Bill 2 Sensor Kit See Rx Instructions .ROUTE Q2W Qty: 1 Rx Instructions: As directed (DME) lancets [TRUEplus Lancets] 33 gauge misc See Rx Instructions .ROUTE TID Qty: 100 Rx Instructions: As directed (DME) pen needle, diabetic [Sure Comfort Pen Needle] 31 gauge x 3/16 needle See Rx Instructions .ROUTE QID Qty: 1200 Rx Instructions: As directed (DME) FreeStyle Lite Strips Strip See Rx Instructions .ROUTE TID Qty: 10 Rx Instructions: As directed vitamin B complex-folic acid [B Complex 1 (with folic acid)] 0.4 mg tablet 1 tab PO QAM folic acid 1 mg tablet 1 mg PO DAILY Interventions: ED Discharge Assessment Last Done: 10/23/24 21:43 Discharge Date/Time: 10/23/24 21:44 Print Language: Russian
[2024-10-23 15:30] LABS: MANUAL DIFF FLAG NO
[2024-10-23 15:50] LABS: Basophils Absolute Auto 0.1 X10*3/uL (0.0-0.2); Basophils Percent Auto 0.8 % (0-2); Eosinophils Absolute Auto 0.1 X10*3/uL (0.0-0.4); Eosinophils Percent Auto 0.8 % (0-4); Hematocrit 38.8 % (42.0-52.0); Hemoglobin 12.4 g/dl (14.0-18.0); Imm Gran Abs Auto 0.01 X10*3/uL (0.00-0.03); Imm Gran Pct Auto 0.1 % (0.0-0.4); Lymphocytes Absolute Auto 2.7 X10*3/uL (1.2-4.9); Lymphocytes Percent Auto 33.5 % (20-40); Mean Corpuscular Volume 81.3 fL (80.0-98.0); Mean Platelet Volume 9.1 fL (9.4-12.4); Monocytes Absolute Auto 0.5 X10*3/uL (0.1-1.2); Monocytes Percent Auto 6.6 % (2-11); Neutrophils Absolute Auto 4.6 x10*3/uL (2.0-8.3); Neutrophils Percent Auto 58.2 % (45-73); Platelet Count 342 X10*3/uL (160-400); Red Blood Count 4.77 X10*6/uL (4.60-5.80); Red Cell Distribution Width 14.4 % (11.0-16.0); White Blood Count 7.9 X10*3/uL (4.8-10.8)
[2024-10-23 15:54] LABS: Troponin-I High Sensitivity 16.8 ng/L (<3.5-35.0)
[2024-10-23 15:58] LABS: Alanine Aminotransferase 38 U/L (0-40); Anion Gap 18 (12-20); Aspartate Amino Transferase 80 U/L (5-37); Bilirubin Total 0.7 mg/dL (0.0-1.0); Blood Urea Nitrogen 4 mg/dL (9-16); Calcium 9.1 mg/dL (8.4-10.2); Carbon Dioxide 24 mmol/L (22-29); Chloride 99 mmol/L (96-108); Creatinine Clr Calc Pharmacy 114.9; Estimated Glomerular Filt Rate > 60; Ethanol 364 mg/dL; Glucose Random 215 mg/dL (60-115); Potassium 4.2 mmol/L (3.3-5.1); Sodium 137 mmol/L (135-145)
[2024-10-23 16:03] LABS: Alkaline Phosphatase 349 U/L (39-117)
[2024-10-23] MEDS: oxyCODONE HCl Immed Release 5 MG TABLET 10 MG PO (16:58)
--- OUTSIDE RECORDS SUMMARY | 2024-10-23 18:26 | XMS_ITS | Encounter Summary ---
Author Organization [employer] Address [address] [facility] 7t [place] [address] Care Team Providers Care Pelt Dropper Name Role Phone Flora Santiago Primary Care Provider Sherin Hall RN Unavailable [phone] Juan Jose Deshpande MD Unavailable [phone] Michael Glass MD Unavailable [phone] Demetrius Austin MD Unavailable Harry Garcia MD Unavailable [phone] Jovany Feliciano MD Unavailable Kandi Panda PharmD Unavailable [phone] Angelica Saenz Unavailable Mao Palomino DDS Unavailable Encounter Details Date Type Department Care Team (Latest Contact Info) Description 01/13/[address] [facility] CONVERSIONS Dental, Provider, DDS Social History [...] 9:45 AM EDT Office Visit [facility] MEDICINE [address] [place] [address] Flora Santiago FNP [address] [place] [address] 12/22/2024 9:30 AM EDT Medication Management [facility] MEDICINE [address] [place] [address] Kandi Panda PharmD [address] [place] [address] 12/24/2024 8:00 AM EDT Office Visit [facility] ADULT DENTAL [address] [place] [address] Dany, Angelica [address] [place] [address] documented as of this encounter Visit Diagnoses Not on filedocumented in this encounter Care Teams Pelt Dropper Relationship Specialty Start Date End Date Flora Santiago FNP [address] [place] [address] PCP - General Family Medicine 05/02/21 Sherin Hall, RN [address] [place] [address] Building Maintenance Superintendent Family Medicine 07/30/23 Juan Jose Deshpande MD [address] [place] [address] Nephrology 06/13/24 Michael Glass MD [address] [place] [address] Dr 3rd [place] [address] General Surgery 06/13/24 Demetrius Austin MD [address] [place] [address] Orthopaedic Surgery 06/13/24 Harry Garcia MD [address] [place] [address] [place] [address] Gastroenterology 06/13/24 Jovany Feliciano MD [address] 3rd [place] [address] Cardiology 06/13/24 Kandi Panda PharmD [address] [place] [address] Pharmacist Internal Medicine 08/18/24 Angelica Saenz [address] [place] [address] Dental Hygienist Dental Maintenance Repairman 08/20/24 Mao Palomino DDS [address] [place] [address] Dentist Dental Maintenance Repairman 08/20/24 documented as of this encounter
--- OUTSIDE RECORDS SUMMARY | 2024-10-23 18:26 | XMS_ITS | Clinical Summary ---
Author Organization [facility] Address [address] [place] [address] Phone Care Team Providers Care Check Scaler Name Role Phone Unavailable Primary Care Provider [...]
--- OUTSIDE RECORDS SUMMARY | 2024-10-23 18:26 | XMS_ITS | Encounter Summary ---
Author Organization [employer] Address [address] [facility] 7t [place] [address] Care Team Providers Care Background Investigator Name Role Phone Flora Santiago Primary Care Provider [phone] Sherin Hall RN Unavailable [phone] Juan Jose Deshpande MD Unavailable [phone] Michael Glass MD Unavailable [phone] Demetrius Austin MD Unavailable Harry Garcia MD Unavailable [phone] Jovany Feliciano MD Unavailable [phone] Kandi Panda PharmD Unavailable Angelica Saenz Unavailable Mao Palomino DDS Unavailable [phone] Encounter Details Date Type Department Care Team (Latest Contact Info) Description 01/24/2019 Abstract [facility] CONVERSIONS Dental, Provider, DDS Social History Tobacco [...] 9:45 AM EDT Office Visit [facility] MEDICINE [address] [place] [address] lFora Santiago FNP [address] [place] [address] 12/22/2024 9:30 AM EDT Medication Management [facility] MEDICINE [address] [place] [address] Kandi Panda PharmD [address] [place] [address] 12/24/2024 8:00 AM EDT Office Visit [facility] ADULT DENTAL [address] [place] [address] Dany Angelica [address] [place] [address] documented as of this encounter Visit Diagnoses Not on filedocumented in this encounter Care Teams Background Investigator Relationship Specialty Start Date End Date Flora Santiago FNP [address] [place] [address] PCP - General Family Medicine 05/02/21 Sherin Hall, RN [address] [place] [address] Paring Machine Operator Family Medicine 07/30/23 Juan Jose Deshpande MD [address] [place] [address] Nephrology 06/13/24 Michael Glass MD [address] [place] [address] Dr 3rd [place] [address] General Surgery 06/13/24 Demetrius Austin MD [address] [place] [address] Orthopaedic Surgery 06/13/24 Harry Garcia MD [address] [place] [address] Gastroenterology 06/13/24 Jovany Feliciano MD [address] [place] [address] Drive 3rd [place] [address] Cardiology 06/13/24 Kandi Panda PharmD [address] [place] [address] Pharmacist Internal Medicine 08/18/24 Angelica Saenz [address] [place] [address] Dental Hygienist Dental Concreting Supervisor 08/20/24 Mao Palomino DDS [address] [place] [address] Dentist Dental Concreting Supervisor 08/20/24 documented as of this encounter
--- OUTSIDE RECORDS SUMMARY | 2024-10-23 18:26 | XMS_ITS | Encounter Summary ---
Author Organization [employer] Address [address] [facility] 7t [place] [address] Care Team Providers Care Senior Buyer Name Role Phone Flora Santiago GUEST SERVICE AGENT Primary Care Provider Sherin Hall RN Unavailable [phone] Juan Jose Deshpande MD Unavailable [phone] Michael Glass MD Unavailable [phone] Demetrius Austin MD Unavailable Harry Garcia MD Unavailable [phone] Jovany Feliciano MD Unavailable Kandi Panda PharmD Unavailable [phone] Angelica Saenz Unavailable Mao Palomino DDS Unavailable [phone] Encounter Details Date Type Department Care Team (Late st Contact Info) Description 05/25/[address] [facility] MEDICINE [address] [place] [address] Debi Zamora Social History Tobacco Use Types [...] AM EDT Office Visit [facility] MEDICINE [address] [place] [address] Flora Santiago, GUEST SERVICE AGENT [address] [place] [address] 12/22/2024 9:30 AM EDT Medication Management [facility] MEDICINE [address] [place] [address] Kandi Panda, PharmD [address] [place] [address] 12/24/2024 8:00 AM EDT Office Visit [facility] ADULT DENTAL [address] [place] [address] Dany, Angelica [address] [place] [address] documented as of this encounter Procedures Procedure Name Priority Date/Time Associated Diagnosis Comments COLONOSCOPY Routine 03/17/2021 documented in this encounter Results * Hm Colonoscopy (03/17/2021) Colonoscopy Normal Normal Narrative Debi Zamora - 03/17/2021 Repeat in 5 years tubular adenoma us Historical Provider HEALTH MAINTENANCE Final Result documented in this encounter Visit Diagnoses Not on filedocumented in this encounter Care Teams Senior Buyer Relationship Specialty Start Date End Date Flora Santiago FNP [address] [place] [address] PCP - General Family Medicine 05/02/21 Sherin Hall, RN [address] [place] [address] Support Group Manager Family Medicine 07/30/23 Juan Jose Deshpande MD [address] [place] [address] Nephrology 06/13/24 Michael Glass MD [address] [place] [address] Dr [address] [place] [address] General Surgery 06/13/24 Demetrius Austin MD [address] [place] [address] Orthopaedic Surgery 06/13/24 Harry Garcia MD [address] [place] [address] Gastroenterology 06/13/24 Jovany Feliciano MD [address] [place] [address] Cardiology 06/13/24 Kandi Panda PharmD [address] [place] [address] Pharmacist Internal Medicine 08/18/24 Angelica Saenz [address] [place] [address] Dental Hygienist Dental Wire Splicer 08/20/24 Mao Palomino DDS [address] [place] [address] Dentist Dental Wire Splicer 08/20/24 documented as of this encounter
--- OUTSIDE RECORDS SUMMARY | 2024-10-23 18:26 | XMS_ITS | Encounter Summary ---
Author Organization [employer] Address [address] [facility] 7t [place] [address] Care Team Providers Care Antique Dealer Name Role Phone Flora Santiago MANAGER REVENUE Primary Care Provider Sherin Hall RN Unavailable [phone] Juan Jose Deshpande MD Unavailable [phone] Michael Glass MD Unavailable [phone] Demetrius Austin MD Unavailable Harry Garcia MD Unavailable [phone] Jovany Feliciano MD Unavailable [phone] Kandi Panda PharmD Unavailable Angelica Saenz Unavailable Mao Palomino DDS Unavailable [phone] Encounter Details Date Type Department Care Team (Late st Contact Info) Description 07/14/2022 Orders Only [facility] MED & PEDS [address] [place], [place] [id number] Shahnaz Perez LPN Social History Tobacco Use [...] 11/12/2024 9:45 AM EDT Office Visit [facility] MEDICINE [address] [place] [address] Flora Santiago FNP [address] [place] [address] 12/22/2024 9:30 AM EDT Medication Management [facility] MEDICINE [address] [place] [address] Kandi Panda PharmD [address] [place] [address] 12/24/2024 8:00 AM EDT Office Visit [facility] ADULT DENTAL [address] [place] [address] Angelica Saenz [address] [place] [address] documented as of this encounter Visit Diagnoses Not on filedocumented in this encounter Care Teams Antique Dealer Relationship Specialty Start Date End Date Flora Santiago FNP [address] [place] [address] PCP - General Family Medicine 05/02/21 Sherin Hall, RN [address] [place] [address] Concrete Boom Operator Family Medicine 07/30/23 Juan Jose Deshpande MD [address] [place] [address] Nephrology 06/13/24 Michael Glass MD [address] [place] [address] Dr 3rd [place] [address] General Surgery 06/13/24 Demetrius Austin MD [address] [place] [address] Orthopaedic Surgery 06/13/24 Harry Garcia MD [address] [place] [address] Gastroenterology 06/13/24 Jovany Feliciano MD [address] [place] [address] Cardiology 06/13/24 Kandi Panda, Fredrick [address] [place] [address] Pharmacist Internal Medicine 08/18/24 Angelica Saenz [address] [place] [address] Dental Hygienist Dental Mathematics Instructor 08/20/24 Mao Palomino DDS [address] [place] [address] Dentist Dental Mathematics Instructor 08/20/24 documented as of this encounter
--- OUTSIDE RECORDS SUMMARY | 2024-10-23 18:27 | XMS_ITS | Encounter Summary ---
Author Organization [email or web address] Address [address] [facility] 7t [place] [address] Care Team Providers Care Program Support Assistant Name Role Phone Flora Santiago Primary Care Provider [phone] Sherin Hall RN Unavailable [phone] Juan Jose Deshpande MD Unavailable [phone] Michael Glass MD Unavailable [phone] Demetrius Austin MD Unavailable Harry Garcia MD Unavailable [phone] Jovany Feliciano MD Unavailable Kandi Panda PharmD Unavailable Angelica Saenz Unavailable Mao Palomino DDS Unavailable Reason for Visit * Reason Onset Date Comments ER Follow-up 12/19/2022 Encounter Details Date Type Department Care Team (Late st Contact Info) Description 12/19/2022 Telephone [facility] MEDICINE [address] [place] [address] Flora Santiago FNP [address] [place], [place] [phone] ER Follow-up Social History Tobacco Use Types [...] - 12/20/2022 12:22 PM EDT T/C to [phone] through [facility] [facility] id - [id number] to schedule HDF , No answer. LVM to call back on [phone]. * Telephone Encounter - Elizabeth Call - 12/19/2022 3:14 PM EDT Tc from pt requesting a HDF appt. Pt was admitted at [facility] on 12/09/22 and discharged on 12/10/22 due to hernia by belly button, lower back pain, liver and left hip pain. Patient advised will forward to team documented in this encounter Plan of Treatment Upcoming Encounters Date Type Department Care Team (Late st Contact Info) Description 11/12/2024 9:45 AM EDT Office Visit [facility] MEDICINE [address] [place] [address] [phone] Flora Santiago FNP [address] [place] [address] 12/22/2024 9:30 AM EDT Medication Management [facility] MED[facility]INE [address] [place] [address] Kandi Panda PharmD [address] [place] [address] 12/24/2024 8:00 AM EDT Office Visit [facility] ADULT DENTAL [address] [place] [address] Angelica Saenz [address] [place] [address] documented as of this encounter Visit Diagnoses Not on filedocumented in this encounter Care Teams Program Support Assistant Relationship Specialty Start Date End Date Flora Santiago FNP [address] [place] [address] PCP - General Family Medicine 05/02/21 Sherin Hall, RN [address] [place] [address] Procedure Tech Family Medicine 07/30/23 Juan Jose Deshpande MD [address] [place] [address] Nephrology 06/13/24 Michael Glass MD [address] [place] [address] Dr [address] [place] [address] General Surgery 06/13/24 Demetrius Austin MD [address] [place] [address] Orthopaedic Surgery 06/13/24 Harry Garcia MD [address] [place] [address] Gastroenterology 06/13/24 Jovany Feliciano MD [address] [place] [address] Cardiology 06/13/24 Kandi Panda PharmD [address] [place] [address] [phone] Pharmacist Internal Medicine 08/18/24 Angelica Saenz [address] [place], [place] [phone] Dental Hygienist Dental Sample Paster 08/20/24 Mao Palomino DDS [address] [place], [place] [phone] Dentist Dental Sample Paster 08/20/24 documented as of this encounter
--- OUTSIDE RECORDS SUMMARY | 2024-10-23 18:27 | XMS_ITS | Encounter Summary ---
Author Organization [employer] Address [address] [facility] 7t [place] [address] Care Team Providers Care Plating Tank Operator Apprentice Name Role Phone Flora Santiago Primary Care Provider Sherin Hall RN Unavailable [phone] Juan Jose Deshpande MD Unavailable [phone] Michael Glass MD Unavailable [phone] Demetrius Austin MD Unavailable Harry Garcia MD Unavailable [phone] Jovany Feliciano MD Unavailable Kandi Panda PharmD Unavailable Angelica Seanz Unavailable Mao Palomino DDS Unavailable [phone] Reason for Visit * Reason Comments Med Refill Encounter Details Date Type Department Care Team (Late st Contact Info) Description 09/10/2024 Refill [facility] [address] [place] [address] Flora Santiago FNP [address] [place], [place] [phone] Social History Tobacco Use Types Packs/Day Years [...] 9:45 AM EDT Office Visit [facility] MEDICINE [address] [place] [address] Flora Santiago, CIARRA [address] [place] [address] 12/22/2024 9:30 AM EDT Medication Management [facility] MEDICINE [address] [place] [address] Kandi Panda, PharmD [address] [place] [address] 12/24/2024 8:00 AM EDT Office Visit [facility] ADULT DENTAL [address] [place] [address] Angelica Saenz [address] [place] [address] documented as of this encounter Goals Goal [...] documented as of this encounter Care Teams Plating Tank Operator Apprentice Relationship Specialty Start Date End Date Flora Santiago FNP [address] [place] [address] PCP - General Family Medicine 05/02/21 Sherin Hall, MICHELLE [address] [place] [address] Brake Drum Lathe Operator Family Medicine 07/30/23 Juan Jose Deshpande MD [address] [place] [address] Nephrology 06/13/24 Michael Glass MD [address] [place] [address] Dr [address] [place] [address] General Surgery 06/13/24 Demetrius Austin MD [address] [place] [address] Orthopaedic Surgery 06/13/24 Harry Garcia MD [address] [place] [address] Gastroenterology 06/13/24 Jovany Feliciano MD [address] 3rd [place] [address] Cardiology 06/13/24 Kandi Panda, Fredrick [address] [place] [address] Pharmacist Internal Medicine 08/18/24 Angelica Saenz [address] [place] [address] Dental Hygienist Dental Dry Food Products Mixer 08/20/24 Mao Palomino DDS [address] [place] [address] Dentist Dental Dry Food Products Mixer 08/20/24 documented as of this encounter
--- OUTSIDE RECORDS SUMMARY | 2024-10-23 18:27 | XMS_ITS ---
Author Organization [facility] Address 75 [facility] 7t [place] [address] Care Team Providers Care Air Brake Rigger Name Role Phone Flora Santiago Primary Care Provider [phone] Sherin Hall RN Unavailable [phone] Juan Jose Deshpande MD Unavailable [phone] Michael Glass MD Unavailable [phone] Demetrius Austin MD Unavailable Harry Garcia MD Unavailable [phone] Jovany Feliciano MD Unavailable Kandi Panda PharmD Unavailable [phone] Angelica Saenz Unavailable Mao Palomino DDS Unavailable [phone] CM Complex Status:Outreach In Progress (Enrolling) Start date:10/09/2024 Enrollment reason:ADT Feed Overview ADT- Pt admitted to [facility] on 10/08/24. Case Team Name Relationship Phone Yaneth Rondon RN Registered Nurse(Responsible S taff) Continued Care and Services Coordination
--- OUTSIDE RECORDS SUMMARY | 2024-10-23 18:27 | XMS_ITS | Encounter Summary ---
Author Organization [employer] Address [address] [place] [address] 7t [place] [address] Care Team Providers Care Sugar Reprocess Operator Head Name Role Phone Flora Santiago INDUSTRIAL PSYCHOLOGIST Primary Care Provider [phone] Sherin Hall RN Unavailable [phone] Juan Jose Deshpande MD Unavailable [phone] Michael Glass MD Unavailable [phone] Demetrius Austin MD Unavailable Harry Garcia MD Unavailable [phone] Jovany Feliciano MD Unavailable [phone] Kandi Panda PharmD Unavailable [phone] Angelica Saenz Unavailable Mao Palomino DDS Unavailable [phone] Encounter Details Date Type Department Care Team (Late st Contact Info) Description 02/22/2023 Orders Only [facility] MEDICINE [address] [place], [place] [phone] Yanique Hart MD 230 [place], [place] [phone] Other ascites (Primary Dx) Social History Tobacco [...] 9:45 AM EDT Office Visit [facility] MEDICINE [address] [place] [address] Flora Santiago FNP 505 [place], [place] [phone] 12/22/2024 9:30 AM EDT Medication Management [facility] MEDICINE [address] [place] [address] Kandi Panda PharmD [address] [place] [address] 12/24/2024 8:00 AM EDT Office Visit [facility] ADULT DENTAL [address] [place] [address] Dany, Angelica [address] [place] [address] Scheduled Orders Name Type Priority Associated Diagnoses [...] Primary documented in this encounter Care Teams Sugar Reprocess Operator Head Relationship Specialty Start Date End Date Flora Santiago FNP [address] [place] [address] PCP - General Family Medicine 05/02/21 Sherin Hall, RN [address] [place] [address] Dial Refinisher Family Medicine 07/30/23 Juan Jose Deshpande MD [address] [place] [address] Nephrology 06/13/24 Michael Glass MD [address] [facility] [address] 3rd [place] [address] General Surgery 06/13/24 Demetrius Austin MD [address] [place] [address] Orthopaedic Surgery 06/13/24 Harry Garcia MD [address] [facility] [address] [place] [address] Gastroenterology 06/13/24 Jovany Feliciano MD [address] [address] Cardiology 06/13/24 Knadi Panda PharmD 230 [place] [address] Pharmacist Internal Medicine 08/18/24 Angelica Saenz [address] [place] [address] Dental Hygienist Dental Dredge Pipeman 08/20/24 Mao Palomino DDS [address] [place] [address] Dentist Dental Dredge Pipeman 08/20/24 documented as of this encounter
--- OUTSIDE RECORDS SUMMARY | 2024-10-23 18:27 | XMS_ITS | Encounter Summary ---
Author Organization [employer] Address [address] [facility] 7t [place] [address] Care Team Providers Care Door Clamper Name Role Phone Flora Santiago Primary Care Provider Sherin Hall RN Unavailable [phone] Juan Jose Deshpande MD Unavailable [phone] Michael Glass MD Unavailable [phone] Demetrius Austin MD Unavailable Harry Garcia MD Unavailable [phone] Jovany Feliciano MD Unavailable Kandi Panda PharmD Unavailable Angelica Saenz Unavailable Mao Palomino DDS Unavailable [phone] Encounter Details Date Type Department Care Team (Late st Contact Info) Description 02/15/2023 Telephone [facility] MEDICINE [address] [place] [address] Flora Santiago FNP [address] [place], [place] [phone] Social History Tobacco Use Types Packs/Day Years [...] call from sarah. Please contact pt at [phone] (Tongan) documented in this encounter Plan of Treatment Upcoming Encounters Date Type Department Care Team (Late st Contact Info) Description 11/12/2024 9:45 AM EDT Office Visit [facility] MEDICINE [address] [place] [address] Flora Santiago FNP 505 [place] [address] 12/22/2024 9:30 AM EDT Medication Management [facility] MEDICINE [address] [place] [address] Kandi Panda, RobertD [address] [place] [address] 12/24/2024 8:00 AM EDT Office Visit [facility] ADULT DENTAL [address] [place] [address] Dany, Angelica [address] [place] [address] documented as of this encounter Visit Diagnoses Not on filedocumented in this encounter Care Teams Door Clamper Relationship Specialty Start Date End Date Flora Santiago FNP [address] [place] [address] PCP - General Family Medicine 05/02/21 Sherin Hall, MICHELLE [address] [place] [address] Platform Builder Family Medicine 07/30/23 Juan Jose Deshpande MD [address] [place] [address] Nephrology 06/13/24 Michael Glass MD [address] [facility] [address] [facility] [place] [address] General Surgery 06/13/24 Demetrius Austin MD [address] [place] [address] Orthopaedic Surgery 06/13/24 Harry Garcia MD [address] [place] [address] Gastroenterology 06/13/24 Jovany Feliciano MD [address] [place] [address] Cardiology 06/13/24 Kandi Panda PharmD [address] [place] [address] Pharmacist Internal Medicine 08/18/24 Angelica Saenz [address] [place] [address] Dental Hygienist Dental Cigarette Roller 08/20/24 Mao Palomino DDS [address] [place] [address] Dentist Dental Cigarette Roller 08/20/24 documented as of this encounter
--- OUTSIDE RECORDS SUMMARY | 2024-10-23 18:27 | XMS_ITS | Encounter Summary ---
Author Organization [employer] Address [address] [facility] 7t [place] [address] Care Team Providers Care Drier And Evaporator Operator Name Role Phone Flora Santiago WELL SITE DRILLING ENGINEER Primary Care Provider Sherin Hall RN Unavailable Juan Jose Deshpande MD Unavailable [phone] Michael Glass MD Unavailable [phone] Demetrius Austin MD Unavailable Harry Garcia MD Unavailable [phone] Jovany Feliciano MD Unavailable Kandi Panda PharmD Unavailable [phone] Angelica Saenz Unavailable Mao Palomino DDS Unavailable [phone] Encounter Details Date Type Department Care Team (Late st Contact Info) Description 10/04/2022 Orders Only [facility] [address] [place], [place] [phone] Shahnaz Perez LPN Social History Tobacco Use [...] Description 11/12/2024 9:45 AM EDT Office Visit [facility] MEDICINE [address] [place] [address] Flora Santiago FNP [address] [place] [address] 12/22/2024 9:30 AM EDT Medication Management [facility] MEDICINE [address] [place] [address] Kandi Panda PharmD 230 [place] [address] 12/24/2024 8:00 AM EDT Office Visit [facility] ADULT DENTAL [address] [place] [address] Dallin Saenzaris [address] [place] [address] documented as of this encounter Visit Diagnoses Not on filedocumented in this encounter Care Teams Drier And Evaporator Operator Relationship Specialty Start Date End Date Flora Santiago FNP [address] [place] [address] PCP - General Family Medicine 05/02/21 Sherin Hall, MICHELLE [address] [place] [address] Gas Fitter Family Medicine 07/30/23 Juan Jose Deshpande MD [address] [place] [address] Nephrology 06/13/24 Michael lGass MD [address] [place] [address] Dr [address] [place] [address] General Surgery 06/13/24 Demetrius Austin MD [address] [place] [address] Orthopaedic Surgery 06/13/24 Harry Garcia MD [address] [place] [address] Gastroenterology 06/13/24 Jovany Feliciano MD [address] 3rd [place] [address] Cardiology 06/13/24 Kandi Panda PharmD 230 [place] [address] Pharmacist Internal Medicine 08/18/24 Angelica Saenz [address] [place] [address] Dental Hygienist Dental Jitterbug Operator 08/20/24 Mao Palomino DDS [address] [place] [address] Dentist Dental Jitterbug Operator 08/20/24 documented as of this encounter
--- OUTSIDE RECORDS SUMMARY | 2024-10-23 18:27 | XMS_ITS ---
Author Organization [facility] Address 75 [facility] 7t [place] [address] Care Team Providers Care Key Account Representative Name Role Phone Flora Santiago Primary Care Provider [phone] Sherin Hall RN Unavailable [phone] Juan Jose Deshpande MD Unavailable [phone] Michael Glass MD Unavailable Demetrius Austin MD Unavailable Harry Garcia MD Unavailable [phone] Jovany Feliciano MD Unavailable Kandi Panda PharmD Unavailable [phone] Angelica Saenz Unavailable Mao Palomino DDS Unavailable CHW Complex Status:Outreach In Progress (Enrolling) Start date:10/09/2024 Enrollment reason:ADT Feed Overview ADT- Pt admitted to [facility] on 10/08/24. Case Team Name Relationship Phone Swapna Santacruz (Responsible Staff) Continued Care and Services Coordination
--- OUTSIDE RECORDS SUMMARY | 2024-10-23 18:27 | XMS_ITS | Clinical Summary ---
Author Organization [employer] Address [address] [place] [address] 7[address] [place] [address] Care Team Providers Care Truck Engine Technician Name Role Phone VanekeeleyFlora Primary Care Provider [phone] Sherin Hall RN Unavailable [phone] Juan Jose Deshpande MD Unavailable [phone] Michael Glass MD Unavailable [phone] Demetrius Austin MD Unavailable Harry Garcia MD Unavailable [phone] Jovany Feliciano MD Unavailable Kandi Panda PharmD Unavailable Angelica Saenz Unavailable Mao Palomino DDS Unavailable [phone] Allergies Active Allergy Reactions Criticality Noted Date Comments Atorvastatin High 02/01/2023 Other reaction(s): elevated LFTs Shrimp Extract High 02/01/2023 Other reaction(s): Difficulty Breathing Medications beta carotene (vitamin A) 3 MG (29656 UT) capsule Take 10,000 Units by mouth in the morning. Active zinc sulfate (Zincate) 220 (50 Zn) MG capsule Take 50 mg of elemental zinc by mouth in the morning. Active thiamine (Vitamin B-1) 100 MG tablet Take 100 mg by mouth 2 times daily. Active Continuous Blood Gluc Research Administrator (Classiqs Bill 2 [place]) device Scan sensor every 8 hours 1 each 023 Active lidocaine (Lidoderm) 5 % patch APPLY 1 PATCH TOPICALLY TO SKIN, LEAVE ON FOR 12 HOURS AND OFF FOR 12 HOURS DIRECTED 30 patch 11 023 Active TRUEplus Lancets 33G miscIndications :Type 2 diabetes mellitus with hyperglycemia, unspecified whether vermin exterminator insulin use ([facility]) TEST BLOOD SUGAR THREE TIMES DAILY 100 each 11 024 Active insulin pen needle (Sure Comfort Pen Mcdermitt) 31G x 5 mm misc USE DIRECTED [...] 2 diabetes mellitus with hyperglycemia, unspecified whether penitentiary insulin use ([facility]) USE DIRECTED TO TEST BLOOD SUGAR THREE TIMES DAILY 100 each 11 024 Active Inspra 50 MG tablet TAKE 1 TABLET BY MOUTH EVERY MORNING 90 tablet 1 024 Active Continuous Glucose Sensor (FreeStyle Bill 2 Sensor) miscIndications :Type 2 diabetes mellitus with hyperglycemia, with long-term current use of insulin ([facility]) USE DIRECTED CHANGE EVERY 14 [...] hyperglycemia, with long-term current use of insulin ([facility]) INJECT 16 UNITS SUBCUTANEOUSLY AT BEDTIME 15 mL Active insulin lispro (HumaLOG) 100 UNIT/ML injectionIndica tions:Type 2 diabetes mellitus with hyperglycemia, with long-term current use of insulin ([facility]) Inject 20-22 units subcutaneously before [...] hours if needed (pain). Active Continuous Glucose Research Administrator (FreeStyle Bill 3 [place]) device 1 each Once per day. Use as directed for CGM 1 each Active Continuous Glucose Research Administrator (FreeStyle Bill 3 [place]) device 1 each Once per day. Use [...] 04/23/24: [facility] Holley BROWNE. EMG with impression of bilateral [...] 02/12/24: [facility] PAVAN Rivas. Eval bilat hand pain, numbness, [...] eating Call to schedule follow up with [facility] CDTM team Last eye exam: [facility]. -MELD score 8 -Previously completing paracentesis for [facility] Garcia -MELD score 8 [facility] Lisa Garcia -Undergoing paracentesis for ascites, [...] & [facility] Twyxt (Dr. Feliciano) Stress test from 2022. 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 - Cont Cialis 5mg daily and [...] Encounters Date Type Department Care Team Description 10/23/2024 Orders Only GENERIC EXTERNAL DATA DEPARTMENT Provider, Generic External Data 10/17/2024 2:00 PM EDT Office Visit [facility] [address] [place] [address] Flora Santiago FNP Closed fracture of multiple ribs of left side with routine healing, subsequent encounter (Primary Dx); Closed fracture of orbital wall with routine healing, subsequent encounter; Hospital discharge follow-up; Liver lesion 10/17/2024 Travel 10/15/2024 Patient Outreach [address] [address] Flora Santiago FNP Care Coordination (C3/CM Outreach) 10/15/2024 Patient Outreach [facility] [address] [place] [address] Flora Santiago FNP 10/14/2024 Patient Outreach [address] [address] Flora Santiago FNP 10/09/2024 Patient Outreach [address] [address] Flora Santiago FNP Care Coordination (Outreach) 10/09/2024 Patient Outreach [address] [address] Flora Santiago FNP Care Coordination (C3/CM Chart Review) 10/09/2024 Patient Outreach [facility] [address] [place] [address] Flora Santiago FNP Care Coordination (C3CM chart review) 10/09/2024 Patient Outreach [address] [address] Flora Santiago FNP 10/09/2024 Patient Outreach [address] [address] Flora Santiago FNP Transition Of Care (Tcm) (HDF scheduled) 10/07/2024 Orders Only [facility] External Provider, [facility] 09/22/2024 Telephone [facility] [address] [place] [address] Flora Santiago FNP September09/19/2024 Population Health Risk Score [facility] Department [address] [place] [phone] Provider, Population Health Generic 09/18/2024 Travel 09/17/2024 Travel 09/10/2024 Refill [facility] [address] [place] [address] Flora Santiago FNP 09/05/2024 9:20 AM EST Office Visit [facility] [address] [place] [address] Jeannette Griffin MD Rib pain on right side (Primary Dx) 08/28/2024 Telephone [facility] [address] [place] [address] Elida Gutierrez RN Results 08/18/2024 Travel 08/14/2024 Refill [facility] [address] [place] [address] Flora Santiago FNP Routine health maintenance 08/13/2024 Telephone [facility] [address] [place] [address] Flora Santiago FNP Care Coordination: [facility] 08/13/2024 Orders Only GENERIC EXTERNAL DATA DEPARTMENT Provider, Generic External Data 08/11/2024 11:30 AM EST Telemedicine [facility] [address] [place] [address] Flora Santiago FNP Liver lesion (Primary Dx); Primary hypertension; Cirrhosis of liver with ascites, unspecified hepatic cirrhosis type (CMS/HCC) (CMS/HCC) 08/11/2024 Travel 08/08/2024 Refill [facility] [address] [place] [address] Flora Santiago FNP 08/07/2024 Telephone [facility] [address] [place] [address] Owen Hughes [place] Chart Prep from Last [...] Description 11/12/2024 9:45 AM EDT Office Visit [facility] [address] [place] [address] Flora Santiago, CIARRA [address] [place] [address] 12/22/2024 9:30 AM EDT Medication Management [facility] [address] [place] [address] Kandi Panda, PharmD [address] [place] [address] 12/24/2024 8:00 AM EDT Office Visit [facility] [address] [place] [address] Angelica Saenz [address] [place] [address] Health Maintenance Due Date Last Done Comments [...] Procedure Name Priority Date/Time Associated Diagnosis Comments ETHANOL Routine 10/23/2024 3:27 PM EDT COMPREHENSIVE METABOLIC PANEL Routine 10/23/2024 3:27 PM EDT HIGH SENSITIVITY TROPONIN I Routine 10/23/2024 3:27 PM EDT CBC WITH AUTO DIFFERENTIAL Routine 10/23/2024 3:27 PM EDT XR CHEST 2 VIEWS Routine 10/23/2024 3:16 PM EDT URINALYSIS, COMPLETE, WITH REFLEX TO CULTURE Routine [...] 11:49 AM EST HEPATIC FUNCTION PANEL Routine 11:49 AM EST Liver lesion ALPHA FETOPROTEIN, [...] Recently Relevant to Health Maintenance Results * High Sensitivity Troponin I (10/23/2024 3:27 PM EDT) TROPONIN I HIGH SENSITIVITY 16.8 <3.5 - 35.0 ng/L [facility] Comment:The [place] high sens itivity Troponin-I results should beused in conjunction with other diagnostic information suchas ECG, clinical observations and information, and patientsymptoms to aid in the diagnosis of [place]. 10/23/2024 3:27 PM EDT 10/23/2024 3:28 PM EDT us Generic External Data Provider LAB BLOOD ORDERAB LES Final Result Performing Organization Address City/[facility]/ZIP Co de Phone Number [facility] [address] [place] [address] [phone] * (ABNORMAL) Ethanol (10/23/2024 3:27 PM EDT) ETHANOL (MG/DL) IN SER/PLAS 364(HH) mg/dL [facility] Comment:Serum/plasma ethanol results are to be used formedical/treatment purposes only. 10/23/2024 3:27 PM EDT 10/23/2024 3:28 PM EDT Generic External Data Provider LAB BLOOD ORDERAB LES Final Result Performing Organization Address [facility]/ZIP Co de Phone Number [facility] [address] [place] [phone] * (ABNORMAL) CBC auto differential (10/23/2024 3:27 PM EDT) Only the most recent of2 resultswithin the time period is included. White Blood Count 7.9 4.8 - 10.8 X10*3/uL [facility] Red Blood Count 4.77 4.60 - 5.80 X10*6/uL [facility] Hemoglobin 12.4(L) 14.0 - 18.0 g/dl [facility] Hematocrit 38.8(L) 42.0 - 52.0 % [facility] Mean Corpuscular Volume 81.3 80.0 - 98.0 fL [facility] Mean Corpuscular Hemoglobin 26.0(L) 27.0 - 33.0 pg [facility] Mean Corpuscular HGB Conc 32.0 31.0 - 36.0 g/dl [facility] Red Cell Distribution Width 14.4 11.0 - 16.0 % [facility] Platelet Count 342 160 - 400 X10*3/uL [facility] Mean Platelet Volume 9.1(L) 9.4 - 12.4 fL [facility] Neutrophils Percent Auto 58.2 45 - 73 % [facility] Imm Gran Pct Auto 0.1 0.0 - 0.4 % [facility] Lymphocytes Percent Auto 33.5 20 - 40 % [facility] Monocytes Percent Auto 6.6 2 - 11 % [facility] Eosinophils Percent Auto 0.8 0 - 4 % [facility] Basophils Percent Auto 0.8 0 - 2 % [facility] NRBC Pct Auto 0.0 0.0 - 0.2 /100WBC [facility] Neutrophils Absolute Auto 4.6 2.0 - 8.3 x10*3/uL [facility] Imm Gran Abs Auto 0.01 0.00 - 0.03 X10*3/uL [facility] Lymphocytes Absolute Auto 2.7 1.2 - 4.9 X10*3/uL [facility] Monocytes Absolute Auto 0.5 0.1 - 1.2 X10*3/uL [facility] Eosinophils Absolute Auto 0.1 0.0 - 0.4 X10*3/uL [facility] Basophils Absolute Auto 0.1 0.0 - 0.2 X10*3/uL [facility] NRBC Abs Auto 0.000 0.0 - 0.012 X10*3/uL [facility] 10/23/2024 3:27 PM EDT 10/23/2024 3:28 PM EDT us Generic External Data Provider LAB BLOOD ORDERAB LES Final Result [facility] [address] [place] [phone] * (ABNORMAL) Comprehensive Metabolic Panel (10/23/2024 3:27 PM EDT) Sodium 137 135 - 145 mmol/L [facility] Potassium 4.2 3.3 - 5.1 mmol/L [facility] Chloride 99 96 - 108 mmol/L [facility] Carbon Dioxide 24 22 - 29 mmol/L [facility] Anion Gap 18 12 - 20 [facility] Urea Nitrogen (BUN) 4(L) 9 - 16 mg/dL [facility] Creatinine, Serum 0.73 0.5 - 1.4 mg/dL [facility] Creatinine Clr Calc Pharmacy 114.9 [facility] Comment:eGFR (calculated fro m the MDRD study equation) and eCrCl(calculated from the Cockcroft-Gault equation) are based ondifferent parameters and may not yield comparable results.If eCrCl result is absurd, please check patient'sheight/weight. Estimated Glomerular Filt Rate >60 [facility] Comment:Chronic Kidney Disea se: Estimated GFR < 60 mL/min/1.49v4Clogsz Kidney Disease: Estimated GFR < 15 mL/min/1.73m2 Glucose 215(H) 60 - 115 mg/dL [facility] Calcium 9.1 8.4 - 10.2 mg/dL [facility] Bilirubin, Total 0.7 0.0 - 1.0 mg/dL [facility] Aspartate Amino Transferase 80(H) 5 - 37 U/L [facility] Alanine Aminotransferase 38 0 - 40 U/L [facility] Total Protein 8.0 6.5 - 8.0 g/dL [facility] Albumin Level 4.0 3.5 - 5.0 g/dL [facility] Alkaline Phosphatase 349(H) 39 - 117 U/L [facility] 10/23/2024 3:27 PM EDT 10/23/2024 3:28 PM EDT us Generic External Data Provider LAB BLOOD ORDERAB LES Final Result [facility] [address] [place] [address] [phone] * XR Chest 2 Views (10/23/2024 3:16 PM EDT) Only the most recent of2 resultswithin the time period is included. Anatomical Region Laterality Modality Chest Radiographic Kandace ging 10/23/2024 3:16 PM EDT Narrative 10/23/2024 4:29 PM EDT ? [facility] ?[address] ?[place] [address] ?XRay Report ? Signed ? Patient: Steven Stanley ?MR#: [id number] ?? 2 ? : 1965 ?Acct:[id number] ? Age/Sex: 59 / M ?ADM Date: 10/23/24 ? Loc: HO.ED ? Attending Dr: ? Ordering Physician: Rebecca Perales NP ?? Date of Service: 10/23/24 ?? Procedure(s): XR chest 2V ?? Accession Number(s): [id number] ? cc: Flora Santiago CENSUS ENUMERATOR; Rebecca Perales HUMAN FACTORS ENGINEER ? EXAMINATION: ?? XR CHEST ? CLINICAL INFORMATION: ?? chest pain ? COMPARISON: ?? Chest x-ray 09/05/2024 ? TECHNIQUE: ?? 2 views of the chest were obtained. ? FINDINGS: ?? The lungs are expanded and clear. Heart size and pulmonary vascularity ?? is normal. There is no pleural effusion. There are multiple left rib ?? fractures involving the fourth, fifth, sixth, seventh ribs with ?? deformity. There is no visible pneumothorax or pleural effusion. Rest ?? of the bony thorax is normal. ? XR/XR chest 2V ?? IMPRESSION: ?? Ultrasound-guided left upper of fractures involving fourth, fifth, ?? sixth ribs with mild deformity. No pleural effusion or pneumothorax ?? seen. ? Electronically signed by: ??José Miguel Art MD ??10/23/2024 04:27 PM EDT RP ? Dictated By: ?José Miguel Art MD ? Signed By: ?<Electronically signed by José Miguel Art MD in OV> ?10/23/24 1627 ? DD/ 1516 ? TD/TT: 10/23/24 1552 ? Ship Loader: MSM ? Procedure Note Pina, Sarah - 10/23/2024 [place] [address] XRay Report Signed Patient: Robin Stanley#: [id number] 2 : 1965Acct:[id number] Age/Sex: 59 / MADM Date: 10/23/24 Loc: HO.ED Attending Dr: Ordering Physician: Rebecca Perales NP Date of Service: 10/23/24 Procedure(s): XR chest 2V Accession Number(s): [id number] cc: Flora Santiago CENSUS ENUMERATOR; Rebecca Perales NP EXAMINATION: XR CHEST CLINICAL INFORMATION: chest pain COMPARISON: Chest x-ray 09/05/2024 TECHNIQUE: 2 views of the chest were obtained. FINDINGS: The lungs are expanded and clear. Heart size and pulmonary vascularity is normal. There is no pleural effusion. There are multiple left rib fractures involving the fourth, fifth, sixth, seventh ribs with deformity. There is no visible pneumothorax or pleural effusion. Rest of the bony thorax is normal. XR/XR chest 2V IMPRESSION: Ultrasound-guided left upper of fractures involving fourth, fifth, sixth ribs with mild deformity. No pleural effusion or pneumothorax seen. Electronically signed by: José Miguel Art MD 10/23/2024 04:27 PM EDT RP Dictated By: José Miguel Art MD Signed By: <Electronically signed by José Miguel Art MD in OV> 10/23/24 1627 DD/ 1516 TD/TT: 10/23/24 1552 Ship Loader: MIGUE us [facility] External Provider IMG XR PROCEDURES Final Result * (ABNORMAL) Urinalysis, Complete, with Reflex to Culture (10/07/2024 1:03 PM EDT) Color Urine Yellow [facility] Appearance Urine Clear [facility] PH 5.5 5.0 - 9.0 [facility] Glucose Urine UA >=1000(A) Negative mg/dL [facility] Urine Blood Moderate (2+)(A) Negative [facility] Specific [place] - Urine 1.025 1.005 - 1.025 [facility] Urine Protein 30 (1+)(A) Neg-Trace mg/dL [facility] Urine Ketones 15 Negative mg/dL [facility] Nitrite Urine Negative Negative [facility] Leukocyte Esterase Urine Negative Negative [facility] RBC Urine 0-2 0 - 2 /HPF [facility] Urine WBC 0-5 0 - 5 /HPF [facility] Urine Squamous Epithelial Cell 0-2 0 - 2 /HPF [facility] Urine Bacteria None Seen None Seen [facility] Hyaline Casts, Urine 3-5 0 - 2 /LPF [facility] 10/07/2024 1:03 PM EDT 10/07/2024 1:06 PM EDT Narrative [facility] - 10/07/2024 1:28 PM EDT Urine, Clean Catch us Generic External Data Provider LAB URINE ORDERAB LES Final Result [facility] [address] [place] [phone] [phone] * CT Cervical Spine w/o Contrast (10/07/2024 11:43 AM EDT) Anatomical Region Laterality Modality Spine, C-spine Computed Tomogra phy 10/07/2024 11:4 3 AM EDT Narrative 10/07/2024 12:32 PM EDT ? [facility] ?[address] ?[place] [address] ? CT Scan Report ? Signed ? Patient: Stanley,Steven ?MR#: [id number] ?? 2 ? : 1965 ?Acct:[id number] ? Age/Sex: 59 / M ?ADM Date: 10/07/24 ? Loc: HO.ED ? Attending Dr: ? Ordering Physician: Juliana Moran ?? Date of Service: 10/07/24 ?? Procedure(s): CT cervical spine wo IV con ?? Accession Number(s): [id number] ? cc: Flora Santiago; Juliana Moran ? Report Number: ?? [id number]: Total DLP = ??588.00 mGy-cm ?? EXAMINATION: [...] DD/ 1143 ? TD/TT: 10/07/24 1217 ? Ship Loader: ? Procedure Note Pina, Image - 10/07/[address] [place] [address] [address] Scan Report Signed Patient: Robin Stanley#: [id number] 2 : 1965Acct:[id number] Age/Sex: 59 / MADM Date: 10/07/24 Loc: HO.ED Attending Dr: Ordering Physician: Juliana Moran Date of Service: 10/07/24 Procedure(s): CT cervical spine wo IV con Accession Number(s): [id number] cc: Flora Santiago CENSUS ENUMERATOR; Juliana Moran Report Number: [id number]: Total DLP = 588.00 mGy-cm EXAMINATION: CT [...] 10/07/24 1228 DD/ 1143 TD/TT: 10/07/24 1217 Ship Loader: [facility] External Provider IMG CT PROCEDURES Final Result * CT Chest w/ Contrast (10/07/2024 11:43 AM EDT) Anatomical Region Laterality Modality Body, Chest Computed Tomogra phy 10/07/2024 11:4 3 AM EDT Narrative 10/07/2024 12:42 PM EDT ? [facility] ?[address] ?[place] [address] ? CT Scan Report ? Signed ? Patient: Stanley,Steven ?MR#: [id number] ?? 2 ? : 1965 ?Acct:[id number] ? Age/Sex: 59 / M ?ADM Date: 10/07/24 ? Loc: HO.ED ? Attending Dr: ? Ordering Physician: Juliana Moran ?? Date of Service: 10/07/24 ?? Procedure(s): CT chest w IV con ?? Accession Number(s): [id number] ? cc: Flora Santiago CENSUS ENUMERATOR; Juliana Moran ? Report Number: ?? [id number]: Total DLP = ??456.00 mGy-cm ?? EXAMINATION: [...] No contrast ?? extravasation is seen. ? ALI: There is no hilar lymphadenopathy. ? CARDIOVASCULATURE: [...] DD/ 1143 ? TD/TT: 10/07/24 1217 ? Ship Loader: ? Procedure Note Pnia, Image - 10/07/[address] [place] [address] [address] Scan Report Signed Patient: Robin Stanley#: [id number] 2 : 1965Acct:[id number] Age/Sex: 59 / MADM Date: 10/07/24 Loc: HO.ED Attending Dr: Ordering Physician: Juliana Moran Date of Service: 10/07/24 Procedure(s): CT chest w IV con Accession Number(s): [id number] cc: Flora Santiago CENSUS ENUMERATOR; Juliana Moran Report Number: [id number]: Total DLP = 456.00 mGy-cm EXAMINATION: CT [...] 10/07/24 1239 DD/ 1143 TD/TT: 10/07/24 1217 Ship Loader: [facility] External Provider IMG CT PROCEDURES Final Result * CT Abdomen Pelvis w/ Contrast (10/07/2024 10:13 AM EDT) Anatomical Region Laterality Modality Body, Pelvis, Abdomen Computed T omography 10/07/2024 10:1 3 AM EDT Narrative 10/07/2024 12:42 PM EDT ? [facility] ?[address] ?[place] [address] ? CT Scan Report ? Signed ? Patient: Jaden,Steven ?MR#: [id number] ?? 2 ? : 1965 ?Acct:[id number] ? Age/Sex: 59 / M ?ADM Date: 04/01/25 ? Loc: HO.ED ? Attending Dr: ? Ordering Physician: Juliana Moran ?? Date of Service: 10/07/24 ?? Procedure(s): CT abdomen pelvis w IV con ?? Accession Number(s): [id number] ? cc: Flora SantiagoP; Juliana Moran ? Report Number: ?? [id number]: Total DLP = ??997.00 mGy-cm ?? EXAMINATION: [...] DD/ 1013 ? TD/TT: 10/07/24 1217 ? Ship Loader: ? Procedure Note Donangelater, Image - 10/07/[address] [address] [address] Scan Report Signed Patient: Robin Stanley#: [id number] 2 : 1965Acct:[id number] Age/Sex: 59 / MADM Date: 10/07/24 Loc: HO.ED Attending Dr: Ordering Physician: Juliana Moran Date of Service: 10/07/24 Procedure(s): CT abdomen pelvis w IV con Accession Number(s): [id number] cc: Flora SantiagoP; Juliana Moran Report Number: [id number]: Total DLP = 997.00 mGy-cm EXAMINATION: CT [...] 10/07/24 1239 DD/ 1013 TD/TT: 10/07/24 1217 Ship Loader: us [facility] External Provider IMG CT PROCEDURES Final Result * CT Head w/o Contrast (10/07/2024 10:13 AM EDT) Anatomical Region Laterality Modality Head, Neck Computed Tomogra phy 10/07/2024 10:1 3 AM EDT Narrative 10/07/2024 12:40 PM EDT ? [facility] ?[address] ?[place] [address] ? CT Scan Report ? Signed ? Patient: Stanley,Steven ?MR#: [id number] ?? 2 ? : 1965 ?Acct:[id number] ? Age/Sex: 59 / M ?ADM Date: 10/07/24 ? Loc: HO.ED ? Attending Dr: ? Ordering Physician: Juliana Moran ?? Date of Service: 10/07/24 ?? Procedure(s): CT head/brain wo IV con ?? Accession Number(s): [id number] ? cc: Flora Santiago CENSUS ENUMERATOR; Juliana Moran ? Report Number: ?? [id number]: Total DLP = ??845.00 mGy-cm ?? EXAMINATION: [...] DD/ 1013 ? TD/TT: 10/07/24 1217 ? Ship Loader: ? Procedure Note Pina Image - 10/07/[address] [address] [address] Scan Report Signed Patient: Robin Stanley#: [id number] 2 : 1965Acct:[id number] Age/Sex: 59 / MADM Date: 10/07/24 Loc: HO.ED Attending Dr: Ordering Physician: Juliana Moran Date of Service: 10/07/24 Procedure(s): CT head/brain wo IV con Accession Number(s): [id number] cc: Flora Santiago CENSUS ENUMERATOR; Juliana Moran Report Number: [id number]: Total DLP = 845.00 mGy-cm EXAMINATION: CT [...] 10/07/24 1236 DD/ 1013 TD/TT: 10/07/24 1217 Ship Loader: [facility] External Provider IMG CT PROCEDURES Final Result * (ABNORMAL) POCT A1C (09/18/2024 11:00 AM EDT) Hemoglobin A1C 7.4(A) 4.0 - 6.0 % QC Media Lot # [id number] Lot# Expiration Date Blood 09/18/2024 11:0 0 AM EDT Kandi JonesD POINT OF CARE TEST ENTER/HERNAN T ORDERABLES Final Result * Alpha-Fetoprotein, Tumor Marker (08/13/2024 11:49 AM EST) Alpha Fetoprotein 2.7 <6.1 ng/mL [facility] Comment:This test was perfor med using the Aida Coulterchemiluminescent method. Values obtained fromdifferent assay methods cannot be usedinterchangeably. AFP levels, regardless ofvalue, should not be interpreted as absoluteevidence of the presence or absence of disease.THIS TEST WAS PERFORMED AT:[facility] [place] [phone] GARCIA MD Blood Venous blood specimen / Unknown 08/13/2024 11:49 AM EST 08/13/2024 11:49 AM EST us Flora Santiago CENSUS ENUMERATOR LAB BLOOD ORDERABLES Final Res ult Performing Organization Address [facility] Co de Phone Number [facility] [address] [place] [phone] * (ABNORMAL) Immunofixation, Serum (08/13/2024 11:49 AM EST) IMMUNOGLOBULIN G 1318 600 - 1640 mg/dL [facility] IMMUNOGLOBULIN A 1062(A) 47 - 310 mg/dL [facility] Comment:Verified by repeat a nalysis. Immunoglobulin M 195 50 - 300 mg/dL [facility] Comment:THIS TEST WAS PERFOR MED AT:[facility] [place] [phone] GARCIA MD Immunofixation Result SEE NOTE [facility] Comment:No monoclonal protei ns detected. 08/13/2024 11:4 9 AM EST 08/13/2024 11:49 AM EST us Generic External Data Provider LAB BLOOD ORDERAB LES Final Result Performing Organization Address [facility] Co de Phone Number [facility] [address] [place] [phone] * (ABNORMAL) Hepatic Function Panel (08/13/2024 11:49 AM EST) Bilirubin, Total 1.2(H) 0.0 - 1.0 mg/dL [facility] Bilirubin, Direct 0.5 0.0 - 0.5 mg/dL [facility] Aspartate Amino Transferase 32 5 - 37 U/L [facility] Alanine Aminotransferase 19 0 - 40 U/L [facility] Total Protein 9.1(H) 6.5 - 8.0 g/dL [facility] Albumin Level 4.4 3.5 - 5.0 g/dL [facility] Alkaline Phosphatase 167(H) 39 - 117 U/L [facility] Blood Venous blood specimen / Unknown 08/13/2024 11:49 AM EST 08/13/2024 11:49 AM EST us Flora Vanekeeley CENSUS ENUMERATOR LAB BLOOD ORDERABLES Final Res ult Performing Organization Address City/[facility]/ZIP Co de Phone Number [facility] [address] [place] [phone] * (ABNORMAL) Basic Metabolic Panel (08/13/2024 11:49 AM EST) Pathologist [facility] Sodium 133(L) 135 - 145 mmol/L [facility] Potassium 4.9 3.3 - 5.1 mmol/L [facility] Chloride 98 96 - 108 mmol/L [facility] Carbon Dioxide 23 22 - 29 mmol/L [facility] Anion Gap 17 12 - 20 [facility] Urea Nitrogen (BUN) 17(H) 9 - 16 mg/dL [facility] Creatinine, Serum 1.10 0.5 - 1.4 mg/dL [facility] Estimated Glomerular Filt Rate >60 [facility] Comment:Chronic Kidney Disea se: Estimated GFR < 60 mL/min/1.81m0[place] Kidney Disease: Estimated GFR < 15 mL/min/1.73m2 Glucose 296(H) 60 - 115 mg/dL [facility] Calcium 9.8 8.4 - 10.2 mg/dL [facility] 08/13/2024 11:4 9 AM EST 08/13/2024 11:49 AM EST us Generic External Data Provider LAB BLOOD ORDERAB LES Final Result Performing Organization Address [facility]/ZIP Co de Phone Number [facility] [address] [place] [phone] * (ABNORMAL) Urinalysis Complete (08/13/2024 11:43 AM EST) Pathologist [facility] Color Urine Yellow [facility] Appearance Urine Clear [facility] PH 5.5 5.0 - 9.0 [facility] Glucose Urine UA >=1000(A) Negative mg/dL [facility] Urine Blood Moderate (2+)(A) Negative [facility] Specific [place] - Urine 1.025 1.005 - 1.025 [facility] Urine Protein Trace Neg-Trace mg/dL [facility] Urine Ketones Negative Negative mg/dL [facility] Nitrite Urine Negative Negative [facility] Leukocyte Esterase Urine Negative Negative [facility] RBC Urine 6-10(A) 0 - 2 /HPF [facility] Urine WBC 0-5 0 - 5 /HPF [facility] Urine Squamous Epithelial Cell 0-2 0 - 2 /HPF [facility] Urine Bacteria None Seen None Seen [facility] Hyaline Casts, Urine 0-2 0 - 2 /LPF [facility] 08/13/2024 11:4 3 AM EST 08/13/2024 12:35 PM EST us Generic External Data Provider LAB URINE ORDERAB LES Final Result [facility] [address] [place] [phone] * Hepatitis Panel, General (04/29/2024 12:37 PM EDT) Hepatitis A IgM Nonreactive Nonreactive [facility] Comment:IgM antibodies to RITCHIE V not detected; does not exclude earlyacute or recovered HAV infection. ~Hepatitis B Surface Antibody REACTIVE Nonreactive [facility] Comment:REACTIVE: > 11.99 mI U/mL Hepatitis B Core Antibody Nonreactive Nonreactive [facility] Hepatitis C Antibody GRAYZONE Nonreactive [facility] Comment:Antibodies to HCV ma y or may not be present. Suggest repeatanti-HCV in 4-6 weeks and/or HCV viral load if clinicallyindicated. Hepatitis B Surface Ag Negative Negative [facility] 04/29/2024 12:3 7 PM EDT 04/29/2024 12:39 PM EDT Generic External Data Provider LAB BLOOD ORDERAB LES Final Result Performing Organization Address [facility] Co de Phone Number [facility] [address] [place] [phone] * Lipid Panel, Standard (03/28/2024 8:52 AM EDT) Triglycerides 90 <150 mg/dL [facility] Comment:Desirable Triglyceri de: less than 150 mg/dLBorderline High Triglyceride 150-199 mg/dLHigh Triglyceride: 200-499 mg/dLVery High Triglyceride: greater than or equal to 5OO mg/dL Cholesterol 187 <200 mg/dL [facility] Comment:Desirable Cholestero l: less than 200 mg/dLBorderline High Cholesterol: 200-239 mg/dLHigh Cholesterol: greater than 239 mg/dL LDL Cholesterol Calculated 64 <100 mg/dL [facility] Comment:Desirable LDL: less than 100 mg/dLNear Optimal/Above Optimal LDL: 110- 129 mg/dLBorderline High LDL: 130-159 mg/dLHigh LDL: 160-189 mg/dLVery High LDL: greater than or equal to 190 mg/dL HDL Cholesterol 105 >40 mg/dL [facility] Comment:Desirable HDL: great er than 40 mg/dL Note: This HDL assay may give artificially low results in patients with liver disease. 03/28/2024 8:52 AM EDT 03/28/2024 8:52 AM EDT us Generic External Data Provider LAB BLOOD ORDERAB LES Final Result Performing Organization Address City/[facility]/ZIP Co de Phone Number [facility] [address] [place] [address] [phone] * Creatinine, Random Urine (10/31/2023 12:00 PM EDT) Creatinine, Urine 70.00 mg/dL [facility] 10/31/2023 12:0 0 PM EDT 10/31/2023 12:52 PM EDT us Generic External Data Provider LAB URINE ORDERAB LES Final Result Performing Organization Address City/[facility]/ZIP Co de Phone Number [facility] [address] [place] [address] [phone] * HIV 1/2 ANTIGEN/ANTIBODY,FOURTH GENERATION W/RFL (07/18/2021 9:07 AM EST) HIV-1/2 ANTIGEN AND ANTIBODIES, 4TH GENERATION W/ REFLEX NON-REACT NASEEM NON-REACT NASEEM [facility] Comment: HIV-1 antigen [...] ? For additional information please refer to http://education.Vysr.Chroma/faq/WQV544 (This link is being provided for informational/ educational purposes only.) ? The performance of this assay has not been clinically validated in patients less than 2 years old. ?? 07/18/2021 9:07 AM EST us Flora Santiago CENSUS ENUMERATOR LAB BLOOD ORDERABLES Final Res ult [facility] [address] [place] [address], * Colonoscopy (03/17/2021) Colonoscopy Normal Normal Narrative SeraDebi hall - 03/17/2021 Repeat in 5 years tubular adenoma Historical Provider HEALTH MAINTENANCE Final Result from Last 3 Months or Most Recently Relevant to Health Maintenance Insurance [facility] C3 [facility] C3 DENTAL-[facility] MEDICAID STAND ADULT GENERIC OTHER Care Teams Truck Engine Technician Relationship Specialty Start Date End Date Flora Santiago FNP [address] [place] [address] PCP - General Family Medicine 05/02/21 Sherin Hall, MICHELLE [address] [place] [phone] Director Of Premium Seat Sales Family Medicine 07/30/23 Juan Jose Deshpande MD [address] [place] [address] Drive [address] [place] [address] Nephrology 06/13/24 Michael Glass MD [address] [place] [address] Dr [address] [place], [place] General Surgery 06/13/24 Demetrius Austin MD [address] [place] [address] Orthopaedic Surgery 06/13/24 Harry Garcia MD [address] 3rd [place] [address] Gastroenterology 06/13/24 Jovany Feliciano MD [address] 3rd [place] [address] Cardiology 06/13/24 Kandi Panda, RobertD [address] [place] [address] Pharmacist Internal Medicine 08/18/24 Angelica Saenz [address] [place] [address] Dental Hygienist Dental Dump Truck Operator 08/20/24 Mao Palomino DDS [address] [place] [address] Dentist Dental Dump Truck Operator 08/20/24
--- OUTSIDE RECORDS SUMMARY | 2024-10-23 18:27 | XMS_ITS | Encounter Summary ---
Author Organization [employer] Address [address] [place] [address] 7t [place] [address] Care Team Providers Care Creel Cleaner Name Role Phone VaneGustavo minale NURSERY MANAGER Primary Care Provider [phone] Sherin Hall RN Unavailable Juan Jose Deshpande MD Unavailable [phone] Michael Glass MD Unavailable [phone] Demetrius Austin MD Unavailable Harry Garcia MD Unavailable Jovany Feliciano MD Unavailable Kandi Panda PharmD Unavailable [phone] Agnelica Saenz Unavailable Mao aPlomino DDS Unavailable [phone] Reason for Referral * Consultation (Routine) - Authorized Specialty Diagnoses / Procedures Referred By Contac t Referred To Contact Pharmacy Diagnoses Type 2 diabetes mellitus with hyperglycemia, with long-term current use of insulin ([facility]) Divya Amos MD [address] [place] [address] Phone: tel: fax: Referral ID Status Reason Start Date Expiration Date Visits Requested Visits Authorized [id number] Authorized Consult and Treat 06/11/2024 06/11/2025 6 6 Encounter Details Date Type Department Care Team (Late st Contact Info) Description 06/11/2024 Orders Only [facility] [address] [place], [place] [phone] Divya Amos MD [address] [place] [address] Type 2 diabetes mellitus with hyperglycemia, with long-term current use of insulin ([facility]/HCC) (Primary Dx) Social History Tobacco Use [...] the past 12 months, has t he Head Held High, gas, oil or water company threatened to [...] Description 11/12/2024 9:45 AM EDT Office Visit [facility] [address] [place] [address] Flora Santiago FNP [address] [place] [address] 12/22/2024 9:30 AM EDT Medication Management [facility] [address] [place] [address] Kandi Panda PharmD [address] [place] [address] 12/24/2024 8:00 AM EDT Office Visit [facility] [address] [place] [address] DanyAngelica [address] [place] [address] Scheduled Referrals Name Type Priority Associated Diagnoses Orde r Schedule Referral to Pharmacy CDTM Outpatient Referral Routine Type 2 diabetes mellitus with hyperglycemia, with long-term current use of insulin ([facility]) Ordered: 06/11/2024 documented as of [...] hyperglycemia, with long-term current use of insulin ([facility])- Primary documented in this encounter Additional Health Concerns Assessment Noted Time PHQ-9 Depression Total Score: 0 11/30/19 24 11:07 AM EDT documented as of this encounter Care Teams Creel Cleaner Relationship Specialty Start Date End Date Flora Santiago FNP [address] [place] [address] PCP - General Family Medicine 05/02/21 Sherin Hall RN [address] [place], [place] [address]sharon [place] [address] Exhibit Preparator Family Medicine 07/30/23 Juan Jose Deshpande MD [address] [place] [address] Nephrology 06/13/24 Michael Glass MD [address] [place] [address] Dr [address] [facility] [place] [address] General Surgery 06/13/24 Demetrius Austin MD [address] [place] [address] Orthopaedic Surgery 06/13/24 Harry Garcia MD [address] [place] [address] Gastroenterology 06/13/24 Jovany Feliciano MD [address] [place] [address] Cardiology 06/13/24 Kandi Panda PharmD [address] [place], [place] [address]sharon [facility] [place] [address] Pharmacist Internal Medicine 08/18/24 Angelica Saenz [address] [place] [address] Dental Hygienist Dental Insurance Checker 08/20/24 Mao Palomino DDS [address] [place] [address] Dentist Dental Insurance Checker 08/20/24 documented as of this encounter
--- OUTSIDE RECORDS SUMMARY | 2024-10-23 18:27 | XMS_ITS | Encounter Summary ---
Author Organization [employer] Address [address] [facility] 7t [place] [address] Care Team Providers Care Stationary Engineer Apprentice Name Role Phone VaneFlora mina COPYING MACHINE MECHANIC Primary Care Provider [phone] Sherin Hall RN Unavailable [phone] Juan Jose Deshpande MD Unavailable [phone] Michael Glass MD Unavailable [phone] Demetrius Austin MD Unavailable Harry Garcia MD Unavailable [phone] Jovany Feliciano MD Unavailable [phone] Kandi Panda PharmD Unavailable [phone] Angelica Saenz Unavailable Mao Palomino DDS Unavailable [phone] Encounter Details Date Type Department Care Team (Late st Contact Info) Description 10/23/2024 Orders Only GENERIC EXTERNAL DATA [...] 9:45 AM EDT Office Visit [facility] [address] [place] [address] Flora Santiago, COPYING MACHINE MECHANIC [address] [place] [address] 12/22/2024 9:30 AM EDT Medication Management [facility] [address] [place] [address] Kandi Panda, RobertD [address] [place] [address] 12/24/2024 8:00 AM EDT Office Visit [facility] [address] [place] [address] Angelica Saenz [address] [place] [address] documented as of this encounter Goals Goal Patient Goal Type Associated Problems Recent Progress Patient-Stated? Author Blood Pressure < 140/90 Blood Pressure 118/74(2024 2:20 PM EDT) No Jose Maria Novak Hemoglobin A1c < 7 Result Component 7.4( 11:00 AM EDT) No Jose Maria Novak documented as of this encounter Procedures Procedure Name Priority Date/Time Associated Diagnosis Comments HIGH SENSITIVITY TROPONIN I Routine 10/23/2024 3:27 PM EDT ETHANOL Routine 10/23/2024 3:27 PM EDT CBC WITH AUTO DIFFERENTIAL Routine 10/23/2024 3:27 PM EDT COMPREHENSIVE METABOLIC PANEL Routine 10/23/2024 3:27 PM EDT XR CHEST 2 VIEWS Routine 10/23/2024 3:16 PM EDT documented in this encounter Results * (ABNORMAL) Ethanol (10/23/2024 3:27 PM EDT) Pathologist [facility] ETHANOL (MG/DL) IN SER/PLAS 364(HH) mg/dL [facility] Comment:Serum/plasma ethanol results are to be used formedical/treatment purposes only. 10/23/2024 3:27 PM EDT 10/23/2024 3:28 PM EDT us Generic External Data Provider LAB BLOOD ORDERAB LES Final Result [facility] [address] [place] [address] [phone] * (ABNORMAL) Comprehensive Metabolic Panel (10/23/2024 3:27 PM EDT) Sodium 137 135 - 145 mmol/L [facility] Potassium 4.2 3.3 - 5.1 mmol/L [facility] Chloride 99 96 - 108 mmol/L [facility] Carbon Dioxide 24 22 - 29 mmol/L [facility] Anion Gap 18 12 - 20 [facility] Urea Nitrogen (BUN) 4(L) 9 - 16 mg/dL [facility] Creatinine, Serum 0.73 0.5 - 1.4 mg/dL [facility] Creatinine Clr Calc Pharmacy 114.9 [facility] Comment:eGFR (calculated fro m the MDRD study equation) and eCrCl(calculated from the Cockcroft-Gault equation) are based ondifferent parameters and may not yield comparable results.If eCrCl result is absurd, please check patient'sheight/weight. Estimated Glomerular Filt Rate >60 [facility] Comment:Chronic Kidney Disea se: Estimated GFR < 60 mL/min/1.34b7Mrmeqs Kidney Disease: Estimated GFR < 15 mL/min/1.73m2 Glucose 215(H) 60 - 115 mg/dL [facility] Calcium 9.1 8.4 - 10.2 mg/dL [facility] Bilirubin, Total 0.7 0.0 - 1.0 mg/dL [facility] Aspartate Amino Transferase 80(H) 5 - 37 U/L [facility] Alanine Aminotransferase 38 0 - 40 U/L [facility] Total Protein 8.0 6.5 - 8.0 g/dL [facility] Albumin Level 4.0 3.5 - 5.0 g/dL [facility] Alkaline Phosphatase 349(H) 39 - 117 U/L [facility] 10/23/2024 3:27 PM EDT 10/23/2024 3:28 PM EDT us Generic External Data Provider LAB BLOOD ORDERAB LES Final Result [facility] [address] [place] [phone] * High Sensitivity Troponin I (10/23/2024 3:27 PM EDT) TROPONIN I HIGH SENSITIVITY 16.8 <3.5 - 35.0 ng/L [facility] Comment:The [place] high sens itivity Troponin-I results should beused in conjunction with other diagnostic information suchas ECG, clinical observations and information, and patientsymptoms to aid in the diagnosis of HI. 10/23/2024 3:27 PM EDT 10/23/2024 3:28 PM EDT us Generic External Data Provider LAB BLOOD ORDERAB LES Final Result [facility] [address] [place] [address] [phone] * (ABNORMAL) CBC auto differential (10/23/2024 3:27 PM EDT) White Blood Count 7.9 4.8 - 10.8 X10*3/uL [facility] Red Blood Count 4.77 4.60 - 5.80 X10*6/uL [facility] Hemoglobin 12.4(L) 14.0 - 18.0 g/dl [facility] Hematocrit 38.8(L) 42.0 - 52.0 % [facility] Mean Corpuscular Volume 81.3 80.0 - 98.0 fL [facility] Mean Corpuscular Hemoglobin 26.0(L) 27.0 - 33.0 pg [facility] Mean Corpuscular HGB Conc 32.0 31.0 - 36.0 g/dl [facility] Red Cell Distribution Width 14.4 11.0 - 16.0 % [facility] Platelet Count 342 160 - 400 X10*3/uL [facility] Mean Platelet Volume 9.1(L) 9.4 - 12.4 fL [facility] Neutrophils Percent Auto 58.2 45 - 73 % [facility] Imm Gran Pct Auto 0.1 0.0 - 0.4 % [facility] Lymphocytes Percent Auto 33.5 20 - 40 % [facility] Monocytes Percent Auto 6.6 2 - 11 % [facility] Eosinophils Percent Auto 0.8 0 - 4 % [facility] Basophils Percent Auto 0.8 0 - 2 % [facility] NRBC Pct Auto 0.0 0.0 - 0.2 /100WBC [facility] Neutrophils Absolute Auto 4.6 2.0 - 8.3 x10*3/uL [facility] Imm Gran Abs Auto 0.01 0.00 - 0.03 X10*3/uL [facility] Lymphocytes Absolute Auto 2.7 1.2 - 4.9 X10*3/uL [facility] Monocytes Absolute Auto 0.5 0.1 - 1.2 X10*3/uL [facility] Eosinophils Absolute Auto 0.1 0.0 - 0.4 X10*3/uL [facility] Basophils Absolute Auto 0.1 0.0 - 0.2 X10*3/uL [facility] NRBC Abs Auto 0.000 0.0 - 0.012 X10*3/uL [facility] 10/23/2024 3:27 PM EDT 10/23/2024 3:28 PM EDT us Generic External Data Provider LAB BLOOD ORDERAB LES Final Result Performing Organization Address City/State/[facility] Co de Phone Number [facility] [address] [place] [address] [phone] * XR Chest 2 Views (10/23/2024 3:16 PM EDT) Anatomical Region Laterality Modality Chest Radiographic Kandace ging 10/23/2024 3:16 PM EDT Narrative 10/23/2024 4:29 PM EDT ? [employer] ?[address] [facility] ?[place] [address] ?XRay Report ? Signed ? Patient: Stanley,Steven ?MR#: [id number] ?? 2 ? : 1965 ?Acct:[id number] ? Age/Sex: 59 / M ?ADM Date: 04/17/25 ? Loc: HO.ED ? Attending Dr: ? Ordering Physician: Rebecca Perales NP ?? Date of Service: 10/23/24 ?? Procedure(s): XR chest 2V ?? Accession Number(s): [id number] ? cc: Flora SantiagoP; Rebecca Perales NP ? EXAMINATION: ?? XR CHEST ? CLINICAL [...] DD/ 1516 ? TD/TT: 10/23/24 1552 ? Service Station Attendant: MSM ? Procedure Note Sarah Heller - 10/23/2024 [place] [id number] XRay Report Signed Patient: Robin Stanley#: [id number] 2 : 1965Acct:[id number] Age/Sex: 59 / MADM Date: 10/23/24 Loc: HO.ED Attending Dr: Ordering Physician: Rebecca Perales NP Date of Service: 10/23/24 Procedure(s): XR chest 2V Accession Number(s): [id number] cc: Flora Santiago COPYING MACHINE MECHANIC; Rebecca Perales NP EXAMINATION: XR CHEST CLINICAL [...] 10/23/24 1627 DD/ 1516 TD/TT: 10/23/24 1552 Service Station Attendant: MIGUE [facility] External Provider IMG XR PROCEDURES Final Result documented in this encounter Visit Diagnoses Not on filedocumented in this encounter Additional Health Concerns Assessment Noted Time PHQ-9 Depression Total Score: 0 11/30/19 24 11:07 AM EDT documented as of this encounter Care Teams Stationary Engineer Apprentice Relationship Specialty Start Date End Date Flora Santiago FNP [address] [place] [address] PCP - General Family Medicine 05/02/21 Sherin Hall, RN [address] [place] [address] Button Inspector Family Medicine 07/30/23 Juan Jose Deshpande MD [address] [place] [address] Nephrology 06/13/24 Michael Glass MD [address] [place] [address] Dr 3rd [place] [address] General Surgery 06/13/24 Demetrius Austin MD [address] [place] [address] Orthopaedic Surgery 06/13/24 Harry Garcia MD [address] [place] [address] Gastroenterology 06/13/24 Jovany Feliciano MD [address] [place] [address] Cardiology 06/13/24 Kandi Panda, Fredrick [address] [place] [address] Pharmacist Internal Medicine 08/18/24 Angelica Saenz [address] [place] [address] Dental Hygienist Dental Assistant Corporate Controller 08/20/24 Mao Palomino DDS [address] [place] [address] Dentist Dental Assistant Corporate Controller 08/20/24 documented as of this encounter
--- OUTSIDE RECORDS SUMMARY | 2024-10-23 18:27 | XMS_ITS | Encounter Summary ---
Author Organization [employer] Address [address] [facility] 7t [place] [address] Care Team Providers Care Photograph Developer Name Role Phone Flora Santiago Primary Care Provider Sherin Hall RN Unavailable [phone] Juan Jose Deshpande MD Unavailable [phone] Michael Glass MD Unavailable [phone] Demetrius Austin MD Unavailable Harry Garcia MD Unavailable [phone] Jovany Feliciano MD Unavailable Kandi Panda PharmD Unavailable Angelica Saenz Unavailable Mao Palomino DDS Unavailable [phone] Reason for Visit * Reason Onset Date Comments Returning Call Back 12/19/2022 Encounter Details Date Type Department Care Team (Late st Contact Info) Description 12/19/2022 Telephone [facility] [address] [place] [address] Flora Santiago FNP [address] [place], [place] [phone] Returning Call Back Social History Tobacco Use [...] 11/12/2024 9:45 AM EDT Office Visit [facility] [address] [place] [address] Flora Santiago FNP [address] [place] [address] 12/22/2024 9:30 AM EDT Medication Management [facility] [address] [place] [address] Kandi Panda PharmD [address] [place] [address] 12/24/2024 8:00 AM EDT Office Visit [facility] [address] [place] [address] Dany, Angelica [address] [place] [address] documented as of this encounter Visit Diagnoses Not on filedocumented in this encounter Care Teams Photograph Developer Relationship Specialty Start Date End Date Flora Santiago FNP [address] [place] [address] PCP - General Family Medicine 05/02/21 Sherin Hall, MICHELLE [address] [place] [address] Freelance Operator Family Medicine 07/30/23 Juan Jose Deshpande MD [address] [place] [address] Nephrology 06/13/24 Michael Glass MD [address] [place] [address] General Surgery 06/13/24 Demetrius Austin MD [address] [place] [address] Orthopaedic Surgery 06/13/24 Harry Garcia MD [address] [address] Gastroenterology 06/13/24 Jovany Feliciano MD [address] [address] Cardiology 06/13/24 Kandi Panda PharmD [address] [place] [address] Pharmacist Internal Medicine 08/18/24 Angelica Saenz [address] [place] [address] Dental Hygienist Dental Mat Packer 08/20/24 Mao Palomino DDS [address] [place] [address] Dentist Dental Mat Packer 08/20/24 documented as of this encounter
--- NOTE | 2024-10-23 19:05 | PC.NURSE ---
this rn assumed care of pt, pt resting in stretcher, no acute distress noted, repeat lab draw at this time.
[2024-10-23 19:09] VITALS: BP 131/84; PULSE 81; RESP 17; TEMP 37.2; O2SAT 99
[2024-10-23 19:34] LABS: Troponin-I High Sensitivity 22.5 ng/L (<3.5-35.0)
[2024-10-23 21:43] VITALS: BP 140/86; PULSE 98; RESP 16; TEMP 36.4; O2SAT 98
== END 2024-10-23 21:44 | disposition home or self-care (01) ==
PROVIDERS: Registered Nurse Emergency; Emergency Provider Internal Medicine; PCP Registered Nurse
DX: S22.42XA Multiple fractures of ribs, left side, initial encounter for closed fracture (principal); W10.8XXA Fall (on) (from) other stairs and steps, initial encounter; E11.9 Type 2 diabetes mellitus without complications; I10 Essential (primary) hypertension; E78.5 Hyperlipidemia, unspecified; F17.200 Nicotine dependence, unspecified, uncomplicated; Z79.4 Long term (current) use of insulin; Z79.899 Other long term (current) drug therapy; Y93.89 Activity, other specified; Y92.9 Unspecified place or not applicable; Y99.9 Unspecified external cause status
CPT/HCPCS: 36415; 71046; 80053; 80307; 84484; 85025; 93005; 99283; 99285

== ENCOUNTER → 2024-10-23 15:00 | Outpatient (BNV) | payer MEDICAID, SELFPAY | PROVIDERS: Emergency Provider Internal Medicine; PCP Registered Nurse; Visit Provider Internal Medicine Cardiovascular Disease | DX: R07.9 Chest pain, unspecified (principal) | CPT/HCPCS: 93010 ==

== ENCOUNTER → 2024-10-23 15:16 | Outpatient (BNV) | payer MEDICAID, SELFPAY | PROVIDERS: Emergency Provider Internal Medicine; PCP Registered Nurse; Visit Provider Radiology Diagnostic Radiology | DX: S22.42XA Multiple fractures of ribs, left side, initial encounter for closed fracture (principal) | CPT/HCPCS: 71046 ==

== ENCOUNTER 2024-10-30 14:55 | Outpatient (REF) | payer MEDICAID, SELFPAY ==
[2024-10-30 16:15] LABS: Uric Acid 5.1 mg/dL (3.4-7.0)
--- OUTSIDE RECORDS SUMMARY | 2024-10-30 17:39 | XMS_ITS | Clinical Summary ---
Author Organization [employer] Address [address] [place] [address] 7[address] [place] [address] Care Team Providers Care Associate Director Of Sales Name Role Phone VanekeeleyFlora Primary Care Provider Sherin Hall RN Unavailable [phone] Juan Jose Deshpande MD Unavailable [phone] Michael Glass MD Unavailable [phone] Demetrius Austin MD Unavailable Harry Garcia MD Unavailable [phone] Jovany Feliciano MD Unavailable Kandi Panda PharmD Unavailable Angelica Saenz Unavailable Mao Palomino DDS Unavailable [phone] Allergies Active Allergy Reactions Criticality Noted Date Comments Atorvastatin High 02/01/2023 Other reaction(s): elevated LFTs Shrimp Extract High 02/01/2023 Other reaction(s): Difficulty Breathing Medications beta carotene (vitamin A) 3 MG (07174 UT) capsule Take 10,000 Units by mouth in the morning. Active zinc sulfate (Zincate) 220 (50 Zn) MG capsule Take 50 mg of elemental zinc by mouth in the morning. Active thiamine (Vitamin B-1) 100 MG tablet Take 100 mg by mouth 2 times daily. Active Continuous Blood Gluc Waiter/Waitress First Class (Abacus e-Media Bill 2 Powers) device Scan sensor every 8 hours 1 each 023 Active lidocaine (Lidoderm) 5 % patch APPLY 1 PATCH TOPICALLY TO SKIN, LEAVE ON FOR 12 HOURS AND OFF FOR 12 HOURS DIRECTED 30 patch 11 023 Active TRUEplus Lancets 33G miscIndications :Type 2 diabetes mellitus with hyperglycemia, unspecified whether intermediate designer insulin use ([facility]) TEST BLOOD SUGAR THREE TIMES DAILY 100 each 11 024 Active insulin pen needle (Sure Comfort Pen Paradise) 31G x 5 mm misc USE DIRECTED [...] with hyperglycemia, unspecified whether usp insulin use ([facility]) USE DIRECTED TO TEST BLOOD SUGAR THREE TIMES DAILY 100 each 11 024 Active Inspra 50 MG tablet TAKE 1 TABLET BY MOUTH EVERY MORNING 90 tablet 1 024 Active Continuous Glucose Sensor (FreeStyle Bill 2 Sensor) miscIndications :Type 2 diabetes mellitus with hyperglycemia, with long-term current use of insulin ([facility]) USE DIRECTED CHANGE EVERY 14 [...] tablet 11 025 2025 Active Continuous Glucose Sensor (FreeStyle Bill 3 Plus Sensor) misc 1 each every 15 days. Apply 1 every 15 days as directed for CGM 2 each Active insulin degludec (Tresiba FlexTouch) 100 UNIT/ML injectionIndica tions:Type 2 diabetes mellitus with hyperglycemia, with long-term current use of insulin (CMS/HCC) INJECT 16 UNITS SUBCUTANEOUSLY AT BEDTIME 15 mL Active insulin lispro (HumaLOG) 100 UNIT/ML injectionIndica tions:Type 2 diabetes mellitus with hyperglycemia, with long-term current use of insulin (CMS/HCC) Inject 20-22 units subcutaneously before each meal up to 3 times a day 15 mL Active pantoprazole (ProtoNix) 40 MG EC tablet Take 1 tablet by mouth Once per day. Active B Complex Vitamins (Vitamin-B Complex) tablet Take 1 tablet by mouth Once per day. Active gabapentin (Neurontin) 100 MG capsule Take 1 capsule by mouth every 8 (eight) hours if needed (pain). Active Continuous Glucose Waiter/Waitress First Class (FreeStyle Bill 3 Powers) device 1 each Once per day. Use as directed for CGM 1 each Active cetirizine (ZyrTEC) 5 MG tabletIndicatio ns:Generalized pruritus Take 1 tablet (5 mg) by mouth at bedtime. 30 tablet 1 025 2024 Active Continuous Glucose Waiter/Waitress First Class (FreeStyle Bill 3 Powers) device 1 each Once per day. Use as directed for CGM 1 each 025 2024 Discontinued(R eorder (will not trigger notification to Pharmacy)) amoxicillin-cla vulanate (Augmentin) 875-125 MG tablet Take 1 tablet by mouth 2 times daily. 025 2024 acetaminophen (Tylenol) 325 MG tablet Take 2 tablets by mouth every 8 (eight) hours if needed for mild pain. 025 2024 folic acid (Folvite) 1 MG tablet Take 1 tablet by mouth Once per day. 025 2024 ibuprofen 400 MG tablet Take [...] & Plan (06/13/2024 11:47 AM EST): 04/23/24: [facility] Holley BROWNE. EMG with impression of [...] thumb bilateral. Referral to Ortho placed. 02/12/24: [facility] Ortho - PAVAN Castanon. Eval bilat hand pain, numbness, tingling x 1 year. Referred for EMG and nerve conduction study to test nerves of BUE. Cont to monitor left ring finger to see if locking and catching. Non-recurrent unilateral ing uinal hernia without obstruction or gangrene 04/13/2024 Overview (04/13/2024): Left inguinal hernia repair completed in Fall [address] Glass - [facility] Gen Surgery Umbilical hernia without obstruction and without gangrene 04/13/2024 Overview (04/13/2024): Following with [facility] Surgery - Dr. Glass Consult note in Mar 2024 with plan for surgery small periumbilical hernia Reviewed ED precautions Assessment & Plan (04/13/2024 5:17 PM EDT): Speciality clearance for surgery in process Arthralgia of left temporomandibular joint 02/03 Microhematuria 11/30/2023 Overview (04/13/2024): Followed by [facility] Urology - WILL Harris Cytology (2022): [...] eating Call to schedule follow up with [facility] CDTM team Last eye exam: 12/09/2020, [...] (08/12/2024 10:06 AM EST): -Previously following with [facility] GI, although transferring to [facility]. -MELD score 8 -Previously completing paracentesis [...] Plan (06/13/2024 11:54 AM EST): -Following with [facility] GI - Dr. Garcia (last consult [...] Plan (04/13/2024 5:00 PM EDT): -Following with [facility] GI - Dr. Garcia (last consult [...] Plan (11/30/2023 11:37 AM EDT): -Following with [facility] GI Lisa Garcia -MELD score 8 -Undergoing paracentesis for ascites PRN -Reviewed basic education and lifestyle interventions important for diagnosis of cirrhosis Medications through GI: Eplerenone 50mg daily DC spironolactone (Jun 2023 d/t gynecomastia) Furosemide 20mg daily Rifaximin Following with GI: screening endoscopy, return precautions paracentesis, HCC screening Q6mo (AFP, abd US) Assessment & Plan (06/23/2023 1:58 PM EST): -Following with [facility] LINDA Garcia -Undergoing paracentesis for ascites, next [...] Plan (03/30/2023 8:49 PM EDT): -Following with [facility] GI - Dr. Garcia -Reports currently scheduled Q2 weeks for paracentesis -Upcoming paracentesis scheduled week of 04/01/23, with plan for f/u with GI week of 04/08/23 -Reviewed basic education and lifestyle interventions important for diagnosis of cirrhosis Medications through GI: ?? Spironolactone 50mg daily ?? Furosemide 20mg daily Assessment & Plan (02/13/2023 5:57 PM EDT): - followed by Dr. Garcia [facility] GI, last seen in December 2022 - urgent follow-up recommended; we will try calling Biliary acute pancreatitis 09/28/2022 Erosive esophagitis 10/04/2021 Renal stone 09/29/2020 Hypertensive disorder 04/08/2015 Assessment & Plan (06/13/2024 11:57 AM EST): Following with [facility] Nephrology (Dr. Deshpande) & [facility] Cards (Dr. Feliciano) Stress test from [...] Plan (04/13/2024 5:14 PM EDT): Following with [facility] Nephrology (Dr. Deshpande) & [facility] Cards (Dr. Feliciano) Stress test from 2022. Able to exercise 9.2 mets and reached target HR w/o signs of angina. Echo with LVEF 55-60%. Mild aortic stenosis. Lipids: Zetia, Praluent (PCSK9i) Medications: - Continues with lisinopril 10mg daily - Cont furosemide 20-40mg daily (dose adjustments primarily through Nephrology d/t hx hyponatremia and edema) Assessment & Plan (11/30/2023 11:49 AM EDT): Following with [facility] Cards - Dr. Feliciano. 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 - Cont Cialis 5mg daily and [...] Encounters Date Type Department Care Team Description 10/30/2024 2:00 PM EDT Office Visit [facility] [address] [place] [phone] Generalized pruritus (Primary Dx) 10/30/2024 Travel 10/28/2024 Telephone [facility] [address] [place] [address] Flora Santiago FNP Hospital Follow-up 10/23/2024 Orders Only GENERIC EXTERNAL DATA DEPARTMENT Provider, Generic External Data 10/17/2024 2:00 PM EDT Office Visit [facility] [address] [place] [address] Flora Santiago FNP Closed fracture of multiple ribs of left side with routine healing, subsequent encounter (Primary Dx); Closed fracture of orbital wall with routine healing, subsequent encounter; Hospital discharge follow-up; Liver lesion 10/17/2024 Travel 10/15/2024 Patient Outreach [facility] [address] [place] [phone] Flora Santiago FNP Care Coordination (C3/CM Outreach) 10/15/2024 Patient Outreach [facility] [address] [place] [address] Flora Santiago FNP 10/14/2024 Patient Outreach [address] [address] Flora Santiago FNP 10/09/2024 Patient Outreach [address] [address] Flora Santiago, REJOGGER Care Coordination (Outreach) 10/09/2024 Patient Outreach [facility] [address] [place] [phone] Flora Santiago FNP Care Coordination (C3/CM Chart Review) 10/09/2024 Patient Outreach [facility] [address] [place] [address] Flora Santiago, REJOGGER Care Coordination (C3CM chart review) 10/09/2024 Patient Outreach [address] [address] Flora Santiago FNP 10/09/2024 Patient Outreach [facility] [address] [place] [phone] Flora Santiago FNP Transition Of Care (Tcm) (HDF scheduled) 10/07/2024 Orders Only [facility] External Provider, [facility] 09/22/2024 Telephone [facility] [address] [place] [address] Flora Santiago FNP September09/19/2024 Population Health Risk Score [facility] Department [address] [place] [phone] Provider, Population Health Generic 09/18/2024 Travel 09/17/2024 Travel 09/10/2024 Refill [facility] [address] [place] [phone] Flora Santiago FNP 09/05/2024 9:20 AM EST Office Visit [facility] [address] [address] Jeannette Griffin MD Rib pain on right side (Primary Dx) 08/28/2024 Telephone [facility] [address] [place] [address] Elida Gutierrez, RN Results 08/18/2024 Travel 08/14/2024 Refill [facility] [address] [place] [address] Flora Santiago FNP Routine health maintenance 08/13/2024 Telephone [facility] [address] [place] [phone] Flora Santiago FNP Care Coordination: [facility] 08/13/2024 Orders Only GENERIC EXTERNAL DATA DEPARTMENT Provider, Generic External Data 08/11/2024 11:30 AM EST Telemedicine [facility] [address] [place] [address] Flora Santiago FNP Liver lesion (Primary Dx); Primary hypertension; Cirrhosis of liver with ascites, unspecified hepatic cirrhosis type (CMS/HCC) (CMS/HCC) 08/11/2024 Travel 08/08/2024 Refill [facility] [address] [place] [address] Flora Santiago, CIARRA 08/07/2024 Telephone [facility] [address] [place] [address] Owen Hughes [place] Chart Prep from Last [...] Sign Reading Time Taken Comments Blood Pressure 127/73 10/30/2024 2:06 PM EDT Pulse 74 10/30/2024 2:06 PM EDT Temperature 36.8 ??C (98.2 ??F) 10/30/2024 2:06 PM ED T Respiratory Rate 16 10/30/2024 2:06 PM EDT Oxygen Saturation 97% 10/30/2024 2:06 PM EDT Inhaled Oxygen Concentration - - Weight 84.4 kg (186 lb) 10/30/2024 2:06 PM EDT Height 172.7 cm (5' 8 ) 10/17/2024 2:20 PM EDT Body Mass Index 28.28 10/17/2024 2:20 PM EDT Plan of Treatment Upcoming Encounters Date Type Department Care Team (Late st Contact Info) Description 11/05/2024 11:15 AM EDT Office Visit [facility] [address] [place], [place] [phone] Yunior Qureshi MD [address] [place], [place] [phone] 11/12/2024 9:45 AM EDT Office Visit [facility] [address] [place] [address] VaneFlora mina, REJOGGER [address] [place] [address] 12/22/2024 9:30 AM EDT Medication Management [facility] [address] [place] [address] Kandi Panda, PharmD [address] [place] [address] 12/24/2024 8:00 AM EDT Office Visit [facility] [address] [place] [address] Dany, Angelica [address] [place] [address] Health Maintenance Due Date Last Done Comments [...] Screening 11/29/2024 11/30/2023, 11/30/19 Diabetes: Hemoglobin A1C 12/19/202409/18/2 025, 06/13/2024, 04/11/2024, Additional history exists Influenza [...] 11/07/2019 Hepatitis B Vaccines Completed 10/17/2024, 06/21/20 23 HIB Vaccines Aged Out No longer eligi [...] Author Blood Pressure < 140/90 Blood Pressure 127/73(2024 2:06 PM EDT) No Jose Maria Novak Hemoglobin A1c < 7 Result Component 7.4( 11:00 AM EDT) No Jose Maria Novak Procedures Procedure Name Priority Date/Time Associated Diagnosis Comments URIC ACID Routine 10/30/2024 2:57 PM EDT Generalized pruritus HIGH SENSITIVITY TROPONIN I Routine 10/23/2024 7:12 PM EDT ETHANOL Routine 10/23/2024 3:27 PM EDT COMPREHENSIVE [...] with long-term current use of insulin ([facility]) XR CHEST 2 VIEWS Routine [...] Recently Relevant to Health Maintenance Results * Uric acid (10/30/2024 2:57 PM EDT) Uric Acid 5.1 3.4 - 7.0 mg/dL [facility] Blood Venous blood specimen / Unknown 10/30/2024 2:57 PM EDT 10/30/2024 3:56 PM EDT Jayla Melendez NP LAB BLOOD ORDERABLES Final Resu lt [facility] [address] [place] [address] [phone] * High Sensitivity Troponin I (10/23/2024 7:12 PM EDT) Only the most recent of2 resultswithin the time period is included. TROPONIN I HIGH SENSITIVITY 22.5 <3.5 - 35.0 ng/L [facility] Comment:The [place] high sens itivity Troponin-I results should beused in conjunction with other diagnostic information suchas ECG, clinical observations and information, and patientsymptoms to aid in the diagnosis of [place]. 10/23/2024 7:12 PM EDT 10/23/2024 7:14 PM EDT Generic External Data Provider LAB BLOOD ORDERAB LES Final Result Performing Organization Address [facility] de Phone Number [facility] [address] [place] [phone] * (ABNORMAL) Ethanol (10/23/2024 3:27 PM EDT) Pathologist [facility] ETHANOL (MG/DL) IN SER/PLAS 364(HH) mg/dL [facility] Comment:Serum/plasma ethanol results are to be used formedical/treatment purposes only. 10/23/2024 3:27 PM EDT 10/23/2024 3:28 PM EDT Generic External Data Provider LAB BLOOD ORDERAB LES Final Result Performing Organization Address [facility] Co de Phone Number [facility] [address] [place] [address] [phone] * (ABNORMAL) CBC auto differential (10/23/2024 3:27 PM EDT) Only the most recent of2 resultswithin the time period is included. White Blood Count 7.9 4.8 - 10.8 X10*3/uL [facility] Red Blood Count 4.77 4.60 - 5.80 X10*6/uL [facility] Hemoglobin 12.4(L) 14.0 - 18.0 g/dl [facility] Hematocrit 38.8(L) 42.0 - 52.0 % [facility] Mean Corpuscular Volume 81.3 80.0 - 98.0 fL [facility] Mean Corpuscular Hemoglobin 26.0(L) 27.0 - 33.0 pg [facility] Mean Corpuscular HGB Conc 32.0 31.0 - 36.0 g/dl [facility] Red Cell Distribution Width 14.4 11.0 - 16.0 % [facility] Platelet Count 342 160 - 400 X10*3/uL [facility] Mean Platelet Volume 9.1(L) 9.4 - 12.4 fL [facility] Neutrophils Percent Auto 58.2 45 - 73 % [facility] Imm Gran Pct Auto 0.1 0.0 - 0.4 % [facility] Lymphocytes Percent Auto 33.5 20 - 40 % [facility] Monocytes Percent Auto 6.6 2 - 11 % [facility] Eosinophils Percent Auto 0.8 0 - 4 % [facility] Basophils Percent Auto 0.8 0 - 2 % [facility] NRBC Pct Auto 0.0 0.0 - 0.2 /100WBC [facility] Neutrophils Absolute Auto 4.6 2.0 - 8.3 x10*3/uL [facility] Imm Gran Abs Auto 0.01 0.00 - 0.03 X10*3/uL [facility] Lymphocytes Absolute Auto 2.7 1.2 - 4.9 X10*3/uL [facility] Monocytes Absolute Auto 0.5 0.1 - 1.2 X10*3/uL [facility] Eosinophils Absolute Auto 0.1 0.0 - 0.4 X10*3/uL [facility] Basophils Absolute Auto 0.1 0.0 - 0.2 X10*3/uL [facility] NRBC Abs Auto 0.000 0.0 - 0.012 X10*3/uL [facility] 10/23/2024 3:27 PM EDT 10/23/2024 3:28 PM EDT us Generic External Data Provider LAB BLOOD ORDERAB LES Final Result [facility] [address] [place] [phone] * (ABNORMAL) Comprehensive Metabolic Panel (10/23/2024 3:27 PM EDT) Sodium 137 135 - 145 mmol/L [facility] Potassium 4.2 3.3 - 5.1 mmol/L [facility] Chloride 99 96 - 108 mmol/L [facility] Carbon Dioxide 24 22 - 29 mmol/L [facility] Anion Gap 18 12 - 20 [facility] Urea Nitrogen (BUN) 4(L) 9 - 16 mg/dL [facility] Creatinine, Serum 0.73 0.5 - 1.4 mg/dL [facility] Creatinine Clr Calc Pharmacy 114.9 [facility] Comment:eGFR (calculated fro m the MDRD study equation) and eCrCl(calculated from the Cockcroft-Gault equation) are based ondifferent parameters and may not yield comparable results.If eCrCl result is absurd, please check patient'sheight/weight. Estimated Glomerular Filt Rate >60 [facility] Comment:Chronic Kidney Disea se: Estimated GFR < 60 mL/min/1.82k9Xvouuk Kidney Disease: Estimated GFR < 15 mL/min/1.73m2 Glucose 215(H) 60 - 115 mg/dL [facility] Calcium 9.1 8.4 - 10.2 mg/dL [facility] Bilirubin, Total 0.7 0.0 - 1.0 mg/dL [facility] Aspartate Amino Transferase 80(H) 5 - 37 U/L [facility] Alanine Aminotransferase 38 0 - 40 U/L [facility] Total Protein 8.0 6.5 - 8.0 g/dL [facility] Albumin Level 4.0 3.5 - 5.0 g/dL [facility] Alkaline Phosphatase 349(H) 39 - 117 U/L [facility] 10/23/2024 3:27 PM EDT 10/23/2024 3:28 PM EDT us Generic External Data Provider LAB BLOOD ORDERAB LES Final Result [facility] [address] [place] [address] [phone] * XR Chest 2 Views (10/23/2024 3:16 PM EDT) Only the most recent of2 resultswithin the time period is included. Anatomical Region Laterality Modality Chest Radiographic Kandace ging 10/23/2024 3:16 PM EDT Narrative 10/23/2024 4:29 PM EDT ? [facility] ?[address] ?[place] [address] ?XRay Report ? Signed ? Patient: Steven Stanley ?MR#: [id number] ?? 2 ? : 1965 ?Acct:[id number] ? Age/Sex: 59 / M ?ADM Date: 10/23/24 ? Loc: HO.ED ? Attending Dr: ? Ordering Physician: Rebecca Perales NP ?? Date of Service: 10/23/24 ?? Procedure(s): XR chest 2V ?? Accession Number(s): [id number] ? cc: Flora Santiago REJOGGER; Rebecca Perales NURSE EMERGENCY ? EXAMINATION: ?? XR CHEST ? CLINICAL [...] DD/ 1516 ? TD/TT: 10/23/24 1552 ? Hydrotechnical Specialist: MSM ? Procedure Note Donangelater, Image - 10/23/[address] [address] XRay Report Signed Patient: Robin Stanley#: [id number] 2 : 1965Acct:[id number] Age/Sex: 59 / MADM Date: 10/23/24 Loc: HO.ED Attending Dr: Ordering Physician: Rebecca Perales NP Date of Service: 10/23/24 Procedure(s): XR chest 2V Accession Number(s): [id number] cc: Flora Santiago REJOGGER; Rebecca Perales NP EXAMINATION: XR CHEST CLINICAL [...] Miguel Art MD 10/23/2024 04:27 PM EDT Dictated By: José Miguel Art MD Signed By: <Electronically signed by José Miguel Art MD in OV> 10/23/24 1627 DD/ 1516 TD/TT: 10/23/24 1552 Hydrotechnical Specialist: MIGUE us [facility] External Provider IMG XR PROCEDURES Final Result * (ABNORMAL) Urinalysis, Complete, with Reflex to Culture (10/07/2024 1:03 PM EDT) Color Urine Yellow [facility] Appearance Urine Clear [facility] PH 5.5 5.0 - 9.0 [facility] Glucose Urine UA >=1000(A) Negative mg/dL [facility] Urine Blood Moderate (2+)(A) Negative [facility] Specific Eclectic - Urine 1.025 1.005 - 1.025 [facility] Urine Protein 30 (1+)(A) Neg-Trace mg/dL [facility] Urine Ketones 15 Negative mg/dL [facility] Nitrite Urine Negative Negative [facility] Leukocyte Esterase Urine Negative Negative [facility] RBC Urine 0-2 0 - 2 /HPF [facility] Urine WBC 0-5 0 - 5 /HPF [facility] Urine Squamous Epithelial Cell 0-2 0 - 2 /HPF [facility] Urine Bacteria None Seen None Seen [facility] Hyaline Casts, Urine 3-5 0 - 2 /LPF [facility] 10/07/2024 1:03 PM EDT 10/07/2024 1:06 PM EDT Narrative [facility] - 10/07/2024 1:28 PM EDT Urine, Clean Catch us Generic External Data Provider LAB URINE ORDERAB LES Final Result [facility] [address] [place] [phone] * CT Cervical Spine w/o Contrast (10/07/2024 11:43 AM EDT) Anatomical Region Laterality Modality Spine, C-spine Computed Tomogra phy 10/07/2024 11:4 3 AM EDT Narrative 10/07/2024 12:32 PM EDT ? [facility] ?[address] ?[place] [address] ? CT Scan Report ? Signed ? Patient: Stanley,Steven ?MR#: [id number] ?? 2 ? : 1965 ?Acct:[id number] ? Age/Sex: 59 / M ?ADM Date: 10/07/24 ? Loc: HO.ED ? Attending Dr: ? Ordering Physician: Juliana Moran ?? Date of Service: 10/07/24 ?? Procedure(s): CT cervical spine wo IV con ?? Accession Number(s): [id number] ? cc: Flora Santiago; Juliana Moran ? Report Number: ?? [id number]: Total DLP = ??588.00 mGy-cm ?? EXAMINATION: [...] DD/ 1143 ? TD/TT: 10/07/24 1217 ? Hydrotechnical Specialist: ? Procedure Note Sarah Heller - 10/07/[address] [place] [address] [address] Scan Report Signed Patient: Robin Stanley#: [id number] 2 : 1965Acct:[id number] Age/Sex: 59 / MADM Date: 10/07/24 Loc: HO.ED Attending Dr: Ordering Physician: Juliana Moran Date of Service: 10/07/24 Procedure(s): CT cervical spine wo IV con Accession Number(s): [id number] cc: Flora Santiago REJOGGER; Juliana Moran Report Number: [id number]: Total DLP = 588.00 mGy-cm EXAMINATION: CT [...] Fleischner guidelines were followed. Electronically signed by: Pairsh Colon MD 10/07/2024 12:28 PM EDT Dictated By: Parish Hernandez MD Signed By: <Electronically signed by Parish Hall MDin OV> 10/07/24 1228 DD/ 1143 TD/TT: 10/07/24 1217 Hydrotechnical Specialist: [facility] External Provider IMG CT PROCEDURES Final Result * CT Chest w/ Contrast (10/07/2024 11:43 AM EDT) Anatomical Region Laterality Modality Body, Chest Computed Tomogra phy 10/07/2024 11:4 3 AM EDT Narrative 10/07/2024 12:42 PM EDT ? [facility] ?[address] ?[place] [address] ? CT Scan Report ? Signed ? Patient: Stanley,Steven ?MR#: [id number] ?? 2 ? : 1965 ?Acct:[id number] ? Age/Sex: 59 / M ?ADM Date: 10/07/24 ? Loc: HO.ED ? Attending Dr: ? Ordering Physician: Juliana Moran ?? Date of Service: 10/07/24 ?? Procedure(s): CT chest w IV con ?? Accession Number(s): [id number] ? cc: Flora Santiago REJOGGER; Juliana Moran ? Report Number: ?? [id number]: Total DLP = ??456.00 mGy-cm ?? EXAMINATION: [...] DD/ 1143 ? TD/TT: 10/07/24 1217 ? Hydrotechnical Specialist: ? Procedure Note Pina, Image - 10/07/[address] [place] [address] [address] Scan Report Signed Patient: Robin Stanley#: [id number] 2 : 1965Acct:[id number] Age/Sex: 59 / MADM Date: 10/07/24 Loc: HO.ED Attending Dr: Ordering Physician: Juliana Moran Date of Service: 10/07/24 Procedure(s): CT chest w IV con Accession Number(s): [id number] cc: Flora Santiago REJOGGER; Juliana Moran Report Number: [id number]: Total DLP = 456.00 mGy-cm EXAMINATION: CT [...] 10/07/24 1239 DD/ 1143 TD/TT: 10/07/24 1217 Hydrotechnical Specialist: [facility] External Provider IMG CT PROCEDURES Final Result * CT Abdomen Pelvis w/ Contrast (10/07/2024 10:13 AM EDT) Anatomical Region Laterality Modality Body, Pelvis, Abdomen Computed T omography 10/07/2024 10:1 3 AM EDT Narrative 10/07/2024 12:42 PM EDT ? [facility] ?[address] ?[place] [address] ? CT Scan Report ? Signed ? Patient: Steven Stanley ?MR#: [id number] ?? 2 ? : 1965 ?Acct:[id number] ? Age/Sex: 59 / M ?ADM Date: 04/01/25 ? Loc: HO.ED ? Attending Dr: ? Ordering Physician: Juliana Moran ?? Date of Service: 10/07/24 ?? Procedure(s): CT abdomen pelvis w IV con ?? Accession Number(s): [id number] ? cc: Flora Santiago; Juliana Moran ? Report Number: ?? [id number]: Total DLP = ??997.00 mGy-cm ?? EXAMINATION: [...] DD/ 1013 ? TD/TT: 10/07/24 1217 ? Hydrotechnical Specialist: ? Procedure Note Donotrafatter, Image - 10/07/[address] [address] [address] Scan Report Signed Patient: Robin Stanley#: [id number] 2 : 1965Acct:[id number] Age/Sex: 59 / MADM Date: 10/07/24 Loc: HO.ED Attending Dr: Ordering Physician: Juliana Moran Date of Service: 10/07/24 Procedure(s): CT abdomen pelvis w IV con Accession Number(s): [id number] cc: lFora Santiago REJOGGER; Juliana Moran Report Number: [id number]: Total DLP = 997.00 mGy-cm EXAMINATION: CT [...] 10/07/24 1239 DD/ 1013 TD/TT: 10/07/24 1217 Hydrotechnical Specialist: [facility] External Provider IMG CT PROCEDURES Final Result * CT Head w/o Contrast (10/07/2024 10:13 AM EDT) Anatomical Region Laterality Modality Head, Neck Computed Tomogra phy 10/07/2024 10:1 3 AM EDT Narrative 10/07/2024 12:40 PM EDT ? [facility] ?[address] ?[place], [place] [address] ? [address] Scan Report ? Signed ? Patient: Steven Stanley ?MR#: [id number] ?? 2 ? : 1965 ?Acct:[id number] ? Age/Sex: 59 / M ?ADM Date: 10/07/24 ? Loc: HO.ED ? Attending Dr: ? Ordering Physician: Juliana Moran ?? Date of Service: 10/07/24 ?? Procedure(s): CT head/brain wo IV con ?? Accession Number(s): [id number] ? cc: Flora Santiago REJOGGER; Juliana Moran ? Report Number: ?? [id number]: Total DLP = ??845.00 mGy-cm ?? EXAMINATION: [...] DD/ 1013 ? TD/TT: 10/07/24 1217 ? Hydrotechnical Specialist: ? Procedure Note Sarah Heller - 10/07/[address] [address] [address] Scan Report Signed Patient: Robin Stanley#: [id number] 2 : 1965Acct:[id number] Age/Sex: 59 / MADM Date: 10/07/24 Loc: HO.ED Attending Dr: Ordering Physician: Juliana Moran Date of Service: 10/07/24 Procedure(s): CT head/brain wo IV con Accession Number(s): [id number] cc: Flora Santiago; Juliana Moran Report Number: [id number]: Total DLP = 845.00 mGy-cm EXAMINATION: CT [...] 10/07/24 1236 DD/ 1013 TD/TT: 10/07/24 1217 Hydrotechnical Specialist: [facility] External Provider IMG CT PROCEDURES Final Result * (ABNORMAL) POCT A1C (09/18/2024 11:00 AM EDT) Hemoglobin A1C 7.4(A) 4.0 - 6.0 % QC Media Lot # [id number] Lot# Expiration Date Blood 09/18/2024 11:0 0 AM EDT Result [facility] Kandi Panda PharmD POINT OF CARE TEST ENTER/HERNAN T ORDERABLES Final Result * Alpha-Fetoprotein, Tumor Marker (08/13/2024 11:49 AM EST) Alpha Fetoprotein 2.7 <6.1 ng/mL [facility] Comment:This test was perfor med using the Aida Coulterchemiluminescent method. Values obtained fromdifferent assay methods cannot be usedinterchangeably. AFP levels, regardless ofvalue, should not be interpreted as absoluteevidence of the presence or absence of disease.THIS TEST WAS PERFORMED AT:[address] [place] [phone] GARCIA MD Blood Venous blood specimen / Unknown 08/13/2024 11:49 AM EST 08/13/2024 11:49 AM EST Flora Phalen REJOGGER LAB BLOOD ORDERABLES Final Res ult Performing Organization Address [facility]/ZIP Co de Phone Number [facility] [address] [place] [phone] * (ABNORMAL) Immunofixation, Serum (08/13/2024 11:49 AM EST) IMMUNOGLOBULIN G 1318 600 - 1640 mg/dL [facility] IMMUNOGLOBULIN A 1062(A) 47 - 310 mg/dL [facility] Comment:Verified by repeat a nalysis. Immunoglobulin M 195 50 - 300 mg/dL [facility] Comment:THIS TEST WAS PERFOR MED AT:[address] [place] [phone] GARCIA MD Immunofixation Result SEE NOTE [facility] Comment:No monoclonal protei ns detected. 08/13/2024 11:4 9 AM EST 08/13/2024 11:49 AM EST us Generic External Data Provider LAB BLOOD ORDERAB LES Final Result Performing Organization Address [facility]/ZIP Co de Phone Number [facility] [address] [place] [phone] * (ABNORMAL) Hepatic Function Panel (08/13/2024 11:49 AM EST) Bilirubin, Total 1.2(H) 0.0 - 1.0 mg/dL [facility] Bilirubin, Direct 0.5 0.0 - 0.5 mg/dL [facility] Aspartate Amino Transferase 32 5 - 37 U/L [facility] Alanine Aminotransferase 19 0 - 40 U/L [facility] Total Protein 9.1(H) 6.5 - 8.0 g/dL [facility] Albumin Level 4.4 3.5 - 5.0 g/dL [facility] Alkaline Phosphatase 167(H) 39 - 117 U/L [facility] Blood Venous blood specimen / Unknown 08/13/2024 11:49 AM EST 08/13/2024 11:49 AM EST us Flora Santiago REJOGGER LAB BLOOD ORDERABLES Final Res ult Performing Organization Address [facility] Co de Phone Number [facility] [address] [place] [address] [phone] * (ABNORMAL) Basic Metabolic Panel (08/13/2024 11:49 AM EST) Sodium 133(L) 135 - 145 mmol/L [facility] Potassium 4.9 3.3 - 5.1 mmol/L [facility] Chloride 98 96 - 108 mmol/L [facility] Carbon Dioxide 23 22 - 29 mmol/L [facility] Anion Gap 17 12 - 20 [facility] Urea Nitrogen (BUN) 17(H) 9 - 16 mg/dL [facility] Creatinine, Serum 1.10 0.5 - 1.4 mg/dL [facility] Estimated Glomerular Filt Rate >60 [facility] Comment:Chronic Kidney Disea se: Estimated GFR < 60 mL/min/1.90u7Lctlws Kidney Disease: Estimated GFR < 15 mL/min/1.73m2 Glucose 296(H) 60 - 115 mg/dL [facility] Calcium 9.8 8.4 - 10.2 mg/dL [facility] 08/13/2024 11:4 9 AM EST 08/13/2024 11:49 AM EST us Generic External Data Provider LAB BLOOD ORDERAB LES Final Result Performing Organization Address [facility]/ZIP Co de Phone Number [facility] [address] [place] [address] [phone] * (ABNORMAL) Urinalysis Complete (08/13/2024 11:43 AM EST) Color Urine Yellow [facility] Appearance Urine Clear [facility] PH 5.5 5.0 - 9.0 [facility] Glucose Urine UA >=1000(A) Negative mg/dL [facility] Urine Blood Moderate (2+)(A) Negative [facility] Specific Eclectic - Urine 1.025 1.005 - 1.025 [facility] Urine Protein Trace Neg-Trace mg/dL [facility] Urine Ketones Negative Negative mg/dL [facility] Nitrite Urine Negative Negative [facility] Leukocyte Esterase Urine Negative Negative [facility] RBC Urine 6-10(A) 0 - 2 /HPF [facility] Urine WBC 0-5 0 - 5 /HPF [facility] Urine Squamous Epithelial Cell 0-2 0 - 2 /HPF [facility] Urine Bacteria None Seen None Seen [facility] Hyaline Casts, Urine 0-2 0 - 2 /LPF [facility] 08/13/2024 11:4 3 AM EST 08/13/2024 12:35 PM EST us Generic External Data Provider LAB URINE ORDERAB LES Final Result [facility] [address] [place] [phone] * Hepatitis Panel, General (04/29/2024 12:37 PM EDT) Hepatitis A IgM Nonreactive Nonreactive [facility] Comment:IgM antibodies to RITCHIE V not detected; does not exclude earlyacute or recovered HAV infection. ~Hepatitis B Surface Antibody REACTIVE Nonreactive [facility] Comment:REACTIVE: > 11.99 mI U/mL Hepatitis B Core Antibody Nonreactive Nonreactive [facility] Hepatitis C Antibody GRAYZONE Nonreactive [facility] Comment:Antibodies to HCV ma y or may not be present. Suggest repeatanti-HCV in 4-6 weeks and/or HCV viral load if clinicallyindicated. Hepatitis B Surface Ag Negative Negative [facility] 04/29/2024 12:3 7 PM EDT 04/29/2024 12:39 PM EDT us Generic External Data Provider LAB BLOOD ORDERAB LES Final Result Performing Organization Address City/[facility] Co de Phone Number [facility] [address] [place] [address] [phone] * Lipid Panel, Standard (03/28/2024 8:52 AM EDT) Triglycerides 90 <150 mg/dL [facility] Comment:Desirable Triglyceri de: less than 150 mg/dLBorderline High Triglyceride 150-199 mg/dLHigh Triglyceride: 200-499 mg/dLVery High Triglyceride: greater than or equal to 5OO mg/dL Cholesterol 187 <200 mg/dL [facility] Comment:Desirable Cholestero l: less than 200 mg/dLBorderline High Cholesterol: 200-239 mg/dLHigh Cholesterol: greater than 239 mg/dL LDL Cholesterol Calculated 64 <100 mg/dL [facility] Comment:Desirable LDL: less than 100 mg/dLNear Optimal/Above Optimal LDL: 110- 129 mg/dLBorderline High LDL: 130-159 mg/dLHigh LDL: 160-189 mg/dLVery High LDL: greater than or equal to 190 mg/dL HDL Cholesterol 105 >40 mg/dL [facility] Comment:Desirable HDL: great er than 40 mg/dL Note: This HDL assay may give artificially low results in patients with liver disease. 03/28/2024 8:52 AM EDT 03/28/2024 8:52 AM EDT us Generic External Data Provider LAB BLOOD ORDERAB LES Final Result Performing Organization Address [facility]/ZIP Co de Phone Number [facility] [address] [place] [address] [phone] * Creatinine, Random Urine (10/31/2023 12:00 PM EDT) Creatinine, Urine 70.00 mg/dL [facility] 10/31/2023 12:0 0 PM EDT 10/31/2023 12:52 PM EDT us Generic External Data Provider LAB URINE ORDERAB LES Final Result Performing Organization Address [facility]/ZIP Co de Phone Number [facility] [address] [place] [address] [phone] * HIV 1/2 ANTIGEN/ANTIBODY,FOURTH GENERATION W/RFL (07/18/2021 9:07 AM EST) HIV-1/2 ANTIGEN AND ANTIBODIES, 4TH GENERATION W/ REFLEX NON-REACT NASEEM NON-REACT NASEEM [facility] Comment: HIV-1 antigen and HIV-1/HIV-2 [...] ? For additional information please refer to http://education.Cozi/faq/GDF728 (This link is being provided for informational/ educational purposes only.) ? The performance of this assay has not been clinically validated in patients less than 2 years old. ?? 07/18/2021 9:07 AM EST Flora Santiago REJOGGER LAB BLOOD ORDERABLES Final Res ult Performing Organization Address [facility]/ZIP Co de Phone Number [facility] [address] * Colonoscopy (03/17/2021) Colonoscopy Normal Normal Narrative Debi Zamora - 03/17/2021 Repeat in 5 years tubular adenoma Historical Provider HEALTH MAINTENANCE Final Result from Last 3 Months or Most Recently Relevant [place] [address] [facility] [address] [place] [address] C3 DENTAL-[facility] MEDICAID STAND ADULT GENERIC OTHER Care Teams Associate Director Of Sales Relationship Specialty Start Date End Date Flora Santiago FNP [address] [place], [place] PCP - General Family Medicine 05/02/21 Sherin Hall, RN [address] [place] [address] Nitrogen Operator Family Medicine 07/30/23 Juan Jose Deshpande MD [address] [place], [place] Nephrology 06/13/24 Michael Glass MD [address] [place] [address] Dr 3rd Floor [place], [place] General Surgery 06/13/24 Demetrius Austin MD [address] [place], [place] Orthopaedic Surgery 06/13/24 Harry Garcia MD [address] [place] [address] Gastroenterology 06/13/24 Jovany Feliciano MD [address] [place] [address] Cardiology 06/13/24 Kandi Panda, RobertD [address] [place] [address] Pharmacist Internal Medicine 08/18/24 Angelica Saenz [address] [place] [address] Dental Hygienist Dental Candle Pourer 08/20/24 Mao Palomino DDS [address] [place] [address] Dentist Dental Candle Pourer 08/20/24
--- OUTSIDE RECORDS SUMMARY | 2024-10-30 17:39 | XMS_ITS | Encounter Summary ---
Author Organization [employer] Address [address] [facility] 7t [place] [address] Care Team Providers Care Jewel Blocker And Sawyer Name Role Phone Flora Santiago TWO WAY RADIO TECHNICIAN Primary Care Provider [phone] Sherin Hall RN Unavailable [phone] Juan Jose Deshpande MD Unavailable [phone] Michael Glass MD Unavailable Demetrius Austin MD Unavailable Harry Garcia MD Unavailable [phone] Jovany Feliciano MD Unavailable Kandi Panda PharmD Unavailable [phone] Angelica Saenz Unavailable Mao Palomino DDS Unavailable Encounter Details Date Type Department Care Team (Late st Contact Info) Description 10/04/2022 Orders Only [facility] [address] [place] [address] Shahnaz Perez LPN Social History Tobacco Use [...] Description 11/05/2024 11:15 AM EDT Office Visit [facility] [address] [place] [address] Yunior Qureshi MD [address] [place] [address] 11/12/2024 9:45 AM EDT Office Visit [address] [address] Flora Santiago FNP [address] [place] [address] 12/22/2024 9:30 AM EDT Medication Management [facility] [address] [place] [address] Kandi Panda PharmD [address] [place] [address] 12/24/2024 8:00 AM EDT Office Visit [facility] [address] [place] [address] Dany, Angelica [address] [place] [address] documented as of this encounter Visit Diagnoses Not on filedocumented in this encounter Care Teams Jewel Blocker And Sawyer Relationship Specialty Start Date End Date Flora Santiago FNP [address] [place] [address] PCP - General Family Medicine 05/02/21 Sherin Hall, MICHELLE [address] [place] [address] Online Journalist Family Medicine 07/30/23 Juan Jose Deshpande MD [address] [place] [address] Drive [address] [place] [address] Nephrology 06/13/24 Michael Glass MD [address] [place] [address] Dr 3rd [place] [address] General Surgery 06/13/24 Demetrius Austin MD [address] [place] [address] Orthopaedic Surgery 06/13/24 Harry Garcia MD [address] 3rd [place] [address] Gastroenterology 06/13/24 Jovany Feliciano MD [address] 3rd [place] [address] Cardiology 06/13/24 Kandi Panda PharmD [address] [place] [address] Pharmacist Internal Medicine 08/18/24 Angelica Saenz [address] [place] [address] Dental Hygienist Dental Ebd Teacher 08/20/24 Mao Palomino DDS [address] [place] [address] Dentist Dental Ebd Teacher 08/20/24 documented as of this encounter
--- OUTSIDE RECORDS SUMMARY | 2024-10-30 17:39 | XMS_ITS | Encounter Summary ---
Author Organization [employer] Address [address] [place] [address] 7t [place] [address] Care Team Providers Care Irrigation Worker Name Role Phone VaneGustavo minale BOTTOM WORKER Primary Care Provider [phone] Sherin Hall RN Unavailable [phone] Juan Jose Deshpande MD Unavailable [phone] Michael Glass MD Unavailable [phone] Demetrius Austin MD Unavailable Harry Garcia MD Unavailable [phone] Jovany Feliciano MD Unavailable Kandi Panda PharmD Unavailable [phone] Angelica Saenz Unavailable Mao Palomino DDS Unavailable [phone] Reason for Referral * Consultation (Routine) - Authorized Specialty Diagnoses / Procedures Referred By Contac t Referred To Contact Pharmacy Diagnoses Type 2 diabetes mellitus with hyperglycemia, with long-term current use of insulin ([facility]) Divya Amos MD [address] [place] [address] Phone: tel: fax: Referral ID Status Reason Start Date Expiration Date Visits Requested Visits Authorized [id number] Authorized Consult and Treat 06/11/2024 06/11/2025 6 6 Encounter Details Date Type Department Care Team (Late st Contact Info) Description 06/11/2024 Orders Only [facility] [address] [place], [place] [phone] Divya Amos MD [address] [place] [address] Type 2 diabetes mellitus with hyperglycemia, with long-term current use of insulin ([facility]/HCC) (Primary Dx) Social History Tobacco Use [...] the past 12 months, has t he [employer], gas, oil or water company threatened to [...] Description 11/05/2024 11:15 AM EDT Office Visit [facility] [address] [place] [address] Yunior Qureshi MD 505 [place] [address] 11/12/2024 9:45 AM EDT Office Visit [facility] [address] [place] [address] Flora Santiago FNP [address] [place] [address] 12/22/2024 9:30 AM EDT Medication Management [facility] [address] [place] [address] Kandi Panda PharmD [address] [place] [address] 12/24/2024 8:00 AM EDT Office Visit [facility] [address] [place] [address] Dany Angelica [address] [place] [address] Scheduled Referrals Name Type Priority Associated Diagnoses Orde r Schedule Referral to Pharmacy CDTM Outpatient Referral Routine Type 2 diabetes mellitus with hyperglycemia, with long-term current use of insulin ([facility]) Ordered: 06/11/2024 documented as of this [...] hyperglycemia, with long-term current use of insulin ([facility])- Primary documented in this encounter Additional Health Concerns Assessment Noted Time PHQ-9 Depression Total Score: 0 11/30/19 11:07 AM EDT documented as of this encounter Care Teams Irrigation Worker Relationship Specialty Start Date End Date Flora Santiago FNP [address] [place] [address] PCP - General Family Medicine 05/02/21 Sherin Hall, RN [address] [place] [address] It Systems Administrator Family Medicine 07/30/23 Juan Jose Deshpande MD [address] [place] [address] Nephrology 06/13/24 Michael Glass MD [address] [place] [address] [place] [address] General Surgery 06/13/24 Demetrius Austin MD [address] [place] [address] DR[address] [place] [address] Orthopaedic Surgery 06/13/24 Harry Garcia MD [address] [place] [address] Gastroenterology 06/13/24 Jovany Feliciano MD [address] [place] [address] Cardiology 06/13/24 Kandi Panda PharmD [address] [place] [address] Pharmacist Internal Medicine 08/18/24 Angelica Saenz [address] [place] [address] Dental Hygienist Dental Dredge Master 08/20/24 Mao Palomino DDS [address] [place] [address] Dentist Dental Dredge Master 08/20/24 documented as of this encounter
--- OUTSIDE RECORDS SUMMARY | 2024-10-30 17:39 | XMS_ITS | Encounter Summary ---
Author Organization [email or web address] Address [address] [facility] 7t [place] [address] Care Team Providers Care Hotel Lobby Concierge Name Role Phone Flora Santiago ORE ROASTER Primary Care Provider Sherin Hall RN Unavailable [phone] Juan Jose Deshpande MD Unavailable [phone] Michael Glass MD Unavailable [phone] Demetrius Austin MD Unavailable Harry Garcia MD Unavailable [phone] Jovany Feliciano MD Unavailable [phone] Kandi Panda PharmD Unavailable Angelica Saenz Unavailable Mao Palomino DDS Unavailable [phone] Encounter Details Date Type Department Care Team (Latest Contact Info) Description 01/13/2021 Abstract [facility] CONVERSIONS Dental, Provider, DDS Social [...] Description 11/05/2024 11:15 AM EDT Office Visit [facility] [address] [place], [place] [phone] Yunior Qureshi MD [address] [place] [address] 11/12/2024 9:45 AM EDT Office Visit [facility] [address] [place] [address] Flora Santiago FNP [address] [place] [address] 12/22/2024 9:30 AM EDT Medication Management [facility] [address] [place] [address] Kandi Panda PharmD [address] [place] [address] 12/24/2024 8:00 AM EDT Office Visit [facility] ADULT DENTAL [address] [place] [address] Angelica Saenz [address] [place] [address] documented as of this encounter Visit Diagnoses Not on filedocumented in this encounter Care Teams Hotel Lobby Concierge Relationship Specialty Start Date End Date Flora Santiago FNP [address] [place] [address] PCP - General Family Medicine 05/02/21 Sherin Hall, RN [address] [place] [phone] Anime Designer Family Medicine 07/30/23 Juan Jose Deshpande MD [address] [place] [address] Nephrology 06/13/24 Michael Glass MD [address] [place] [address] Dr 3rd [place] [address] General Surgery 06/13/24 Demetrius Austin MD [address] [place] [address] Orthopaedic Surgery 06/13/24 Harry Garcia MD [address] [place] [address] Gastroenterology 06/13/24 Jovany Feliciano MD [address] [place] [address] Cardiology 06/13/24 Kandi Panda, Fredrick [address] [place] [address] Pharmacist Internal Medicine 08/18/24 Angelica Saenz [address] [place] [address] Dental Hygienist Dental Manhole Builder 08/20/24 Mao Palomino DDS [address] [place] [address] Dentist Dental Manhole Builder 08/20/24 documented as of this encounter
--- OUTSIDE RECORDS SUMMARY | 2024-10-30 17:39 | XMS_ITS | Encounter Summary ---
Author Organization [employer] Address [address] [facility] 7t [place] [address] Care Team Providers Care Card Checker Name Role Phone Flora Santiago COCOA POWDER MIXER OPERATOR Primary Care Provider Sherin Hall RN Unavailable [phone] Juan Jose Deshpande MD Unavailable [phone] Michael Glass MD Unavailable [phone] Demetrius Austin MD Unavailable Harry Garcia MD Unavailable [phone] Jovany Feliciano MD Unavailable [phone] Kandi Panda PharmD Unavailable Angelica Saenz Unavailable Mao Palomino DDS Unavailable [phone] Encounter Details Date Type Department Care Team (Late st Contact Info) Description 05/25/2023 Abstract [facility] MEDICINE [address] [place] [address] Debi Zamora Social History Tobacco Use Types [...] Description 11/05/2024 11:15 AM EDT Office Visit [facility] CHC MED & PEDS 505 [place] [address] Yunior Qureshi MD 505 [place] [address] 11/12/2024 9:45 AM EDT Office Visit [facility] MEDICINE [address] [place] [address] Flora Santiago FNP 505 [place] [address] 12/22/2024 9:30 AM EDT Medication Management [facility] MEDICINE [address] [place] [address] Kandi Panda, RobertD 230 [place] [address] 12/24/2024 8:00 AM EDT Office Visit [facility] ADULT DENTAL [address] [place] [address] Angelica Saenz 230 [place] [address] documented as of this encounter Procedures Procedure Name Priority Date/Time Associated Diagnosis Comments COLONOSCOPY Routine 03/17/2021 documented in this encounter Results * Colonoscopy (03/17/2021) Colonoscopy Normal Normal Narrative Debi Zamora - 03/17/2021 Repeat in 5 years tubular adenoma us Historical Provider HEALTH MAINTENANCE Final Result documented in this encounter Visit Diagnoses Not on filedocumented in this encounter Care Teams Card Checker Relationship Specialty Start Date End Date Flora Santiago FNP [address] [place] [address] PCP - General Family Medicine 05/02/21 Sherin Hall, RN [address] [place] [address] Heat Treating Operator Family Medicine 07/30/23 Juan Jose Deshpande MD [address] [place] [address] Nephrology 06/13/24 Michael Glass MD [address] [place] [address] Dr [address] [place] [address] General Surgery 06/13/24 Demetrius Austin MD [address] [place] [address] Orthopaedic Surgery 06/13/24 Harry Garcia MD [address] [address] Gastroenterology 06/13/24 Jovany Feliciano MD [address] [address] Cardiology 06/13/24 Kandi Panda PharmD 230 [place] [address] Pharmacist Internal Medicine 08/18/24 Angelica Saenz [address] [place], [place] [phone] Dental Hygienist Dental Seo Intern 08/20/24 Mao Palomino DDS [address] [place], [place] [phone] Dentist Dental Seo Intern 08/20/24 documented as of this encounter
--- OUTSIDE RECORDS SUMMARY | 2024-10-30 17:39 | XMS_ITS | Clinical Summary ---
Author Organization [facility] Address [address] [facility] [address] [address] [address] [place] [address] [place] [address] Phone Care Team Providers Care Mud Boss Name Role Phone Unavailable Primary Care Provider [...]
--- OUTSIDE RECORDS SUMMARY | 2024-10-30 17:39 | XMS_ITS | Encounter Summary ---
Author Organization [employer] Address [address] [place] [address] 7t [place] [address] Care Team Providers Care Direct Care Professional Name Role Phone Flora Santiago SPACE AND STORAGE CLERK Primary Care Provider [phone] Sherin Hall RN Unavailable [phone] Juan Jose Deshpande MD Unavailable [phone] Michael Glass MD Unavailable Demetrius Austin MD Unavailable Harry Garcia MD Unavailable [phone] Jovany Feliciano MD Unavailable Kandi Panda PharmD Unavailable Angelica Saenz Unavailable Mao Palomino DDS Unavailable [phone] Encounter Details Date Type Department Care Team (Latest Contact Info) Description 01/24/2019 Abstract [facility] CONVERSIONS Dental, Provider, DDS Social [...] Description 11/05/2024 11:15 AM EDT Office Visit [facility] CHC MED & PEDS 505 [place], [place] [phone] Yunior Qureshi MD 505 [place] [address] 11/12/2024 9:45 AM EDT Office Visit [facility] MEDICINE [address] [place] [address] Flora Santiago FNP 505 [place] [address] 12/22/2024 9:30 AM EDT Medication Management [facility] MEDICINE [address] [place] [address] Kandi Panda PharmD 230 [place] [address] 12/24/2024 8:00 AM EDT Office Visit [facility] ADULT DENTAL [address] [place] [address] Angelica Saenz [address] [place] [address] documented as of this encounter Visit Diagnoses Not on filedocumented in this encounter Care Teams Direct Care Professional Relationship Specialty Start Date End Date Flora Santiago FNP [address] [place] [address] PCP - General Family Medicine 05/02/21 Sherin Hall, RN [address] [place] [address] Buggy Driver Family Medicine 07/30/23 Juan Jose Deshpande MD [address] [place] [address] Nephrology 06/13/24 Michael Glass MD [address] [place] [address] Dr 3rd [place] [address] General Surgery 06/13/24 Demetrius Austin MD [address] [place] [address] Orthopaedic Surgery 06/13/24 Harry Garcia MD [address] [place] [address] Gastroenterology 06/13/24 Jovany Feliciano MD [address] [place] [address] Cardiology 06/13/24 Kandi Panda, Fredrick [address] [place] [address] Pharmacist Internal Medicine 08/18/24 Angelica Saenz [address] [place] [address] Dental Hygienist Dental Equipment Service Engineer 08/20/24 Mao Palomino DDS [address] [place] [address] Dentist Dental Equipment Service Engineer 08/20/24 documented as of this encounter
--- OUTSIDE RECORDS SUMMARY | 2024-10-30 17:39 | XMS_ITS ---
Author Organization [facility] Address [address] [facility] 7t [place] [address] Care Team Providers Care Uc Architect Name Role Phone Flora Santiago Primary Care Provider Sherin Hall RN Unavailable [phone] Juan Jose Deshpande MD Unavailable [phone] Michael Glass MD Unavailable [phone] Demetrius Austin MD Unavailable Harry Garcia MD Unavailable [phone] Jovany Feliciano MD Unavailable [phone] Kandi Panda PharmD Unavailable Angelica Saenz Unavailable Mao Palomino DDS Unavailable [phone] [facility] Complex Status:Outreach In Progress (Enrolling) Start date:10/09/2024 Enrollment reason:ADT Feed Overview ADT- Pt admitted to [facility] on 10/08/24. Case Team Name Relationship Phone Swapna Santacruz (Responsible Staff) Continued Care and Services Coordination
--- OUTSIDE RECORDS SUMMARY | 2024-10-30 17:39 | XMS_ITS | Encounter Summary ---
Author Organization [employer] Address [address] [facility] 7t [place] [address] Care Team Providers Care Network Communications Engineer Name Role Phone Flora Santiago Primary Care Provider Sherin Hall RN Unavailable Juan Jose Deshpande MD Unavailable [phone] Michael Glass MD Unavailable [phone] Demetrius Austin MD Unavailable Harry Garcia MD Unavailable [phone] Jovany Feliciano MD Unavailable Kandi Panda PharmD Unavailable [phone] Angelica Saenz Unavailable Mao Palomino DDS Unavailable [phone] Reason for Visit * Reason Onset Date Comments Returning Call Back 12/19/2022 Encounter Details Date Type Department Care Team (Late st Contact Info) Description 12/19/2022 Telephone [facility] MEDICINE 230 [place] [address] Flora Santiago FNP [address] [place], [place] [phone] Returning Call Back Social History Tobacco Use [...] Description 11/05/2024 11:15 AM EDT Office Visit [facility] CHC MED & PEDS 505 [place] [address] Yunior Qureshi MD 505 [place] [address] 11/12/2024 9:45 AM EDT Office Visit [facility] MEDICINE [address] [place] [address] Flora Santiago FNP 505 [place] [address] 12/22/2024 9:30 AM EDT Medication Management [facility] MEDICINE [address] [place] [address] Kandi Panda, RobertD 230 [place] [address] 12/24/2024 8:00 AM EDT Office Visit [facility] ADULT DENTAL 230 [place] [address] Angelica Saenz 230 [place] [address] documented as of this encounter Visit Diagnoses Not on filedocumented in this encounter Care Teams Network Communications Engineer Relationship Specialty Start Date End Date Flora Santaigo FNP [address] [place] [address] PCP - General Family Medicine 05/02/21 Sherin Hall, RN [address] [place] [address] Library Page Family Medicine 07/30/23 Juan Jose Deshpande MD [address] [place] [address] Nephrology 06/13/24 Michael Glass MD [address] [place] [address] Dr [address] [place] [address] General Surgery 06/13/24 Demetrius Austin MD [address] [facility] [facility] [address] [facility] 203 [place] [address] Orthopaedic Surgery 06/13/24 Harry Garcia MD [address] [place] [address] Gastroenterology 06/13/24 Jovany Feliciano MD [address] [place] [address] Cardiology 06/13/24 Kandi Panda PharmD [address] [place] [address] Pharmacist Internal Medicine 08/18/24 Angelica Saenz [address] [place] [address] Dental Hygienist Dental Upper Shaper 08/20/24 Mao Palomino DDS [address] [place] [address] Dentist Dental Upper Shaper 08/20/24 documented as of this encounter
--- OUTSIDE RECORDS SUMMARY | 2024-10-30 17:39 | XMS_ITS | Encounter Summary ---
Author Organization [employer] Address [address] [facility] [address] 7t [place] [address] Care Team Providers Care In Flight Refueling Craftsman Name Role Phone Flora Santiago REPORT WRITER Primary Care Provider [phone] Sherin Hall RN Unavailable [phone] Juan Jose Deshpande MD Unavailable [phone] Michael Glass MD Unavailable [phone] Demetrius Austin MD Unavailable Harry Garcia MD Unavailable [phone] Jovany Feliciano MD Unavailable Kandi Panda PharmD Unavailable [phone] Angelica Saenz Unavailable Mao Palomino DDS Unavailable Encounter Details Date Type Department Care Team (Late st Contact Info) Description 10/30/2024 2:00 PM EDT Office Visit [facility] 230 [place] [address] Generalized pruritus (Primary Dx) Social History Tobacco Use Types [...] (186 lb) 10/30/2024 2:06 PM EDT Height - - Body Mass Index 28.28 10/17/2024 2:20 PM EDT documented in this encounter Plan of Treatment Upcoming Encounters Date Type Department Care Team (Late st Contact Info) Description 11/05/2024 11:15 AM EDT Office Visit [facility] CHC MED & PEDS [address] [place] [address] Yunior Qureshi MD 505 [place] [address] 11/12/2024 9:45 AM EDT Office Visit [facility] MEDICINE 230 [place] [address] Flora Santiago FNP 505 [place] [address] 12/22/2024 9:30 AM EDT Medication Management [facility] MEDICINE 230 [place] [address] Kandi Panda PharmD 230 [place] [address] 12/24/2024 8:00 AM EDT Office Visit [facility] ADULT DENTAL 230 [place] [address] Dany, Angelica 230 [place] [address] documented as of this encounter Goals Goal [...] Routine 10/30/2024 2:57 PM EDT Generalized pruritus documented in this encounter Results * Uric acid (10/30/2024 2:57 PM EDT) Uric Acid 5.1 3.4 - 7.0 mg/dL [facility] Blood Venous blood specimen / Unknown 10/30/2024 2:57 PM EDT 10/30/2024 3:56 PM EDT us Jayla Melendez PROP ATTENDANT LAB BLOOD ORDERABLES Final Resu lt [facility] [address] [place] [address] [phone] documented in this encounter Visit Diagnoses Diagnosis Generalized pruritus- Primary Unspecified pruritic disorder documented in this encounter Additional Health Concerns Assessment Noted Time PHQ-9 Depression Total Score: 0 11/30/19 11:07 AM EDT documented as of this encounter Care Teams In Flight Refueling Craftsman Relationship Specialty Start Date End Date Flora Santiago FNP 230 [place] [address] PCP - General Family Medicine 05/02/21 Sherin Hall, RN [address] [place] [address] Blaster Helper Family Medicine 07/30/23 Juan Jose Deshpande MD [address] [place] [address] Nephrology 06/13/24 Michael Glass MD [address] [place] [address] Dr [address] [place] [address] General Surgery 06/13/24 Demetrius Austin MD [address] [place] [address] Orthopaedic Surgery 06/13/24 Harry Garcia MD [address] [place] [address] Drive 3[address] [place] [address] Gastroenterology 06/13/24 Jovany Feliciano MD [address] [address] Cardiology 06/13/24 Kandi Panda PharmD 230 [place] [address] Pharmacist Internal Medicine 08/18/24 Angelica Saenz 230 [place], [place] [phone] Dental Hygienist Dental Certified Pest Control Technician 08/20/24 Mao Palomino DDS 230 [place], [place] [phone] Dentist Dental Certified Pest Control Technician 08/20/24 documented as of this encounter
--- OUTSIDE RECORDS SUMMARY | 2024-10-30 17:39 | XMS_ITS | Encounter Summary ---
Author Organization [employer] Address [address] [facility] 7t [place] [address] Care Team Providers Care Head Charrer Name Role Phone Flora Santiago Primary Care Provider [phone] Sherin Hall RN Unavailable [phone] Juan Jose Deshpande MD Unavailable [phone] Michael Glass MD Unavailable [phone] Demetrius Austin MD Unavailable Harry Garcia MD Unavailable [phone] Jovany Feliciano MD Unavailable Kandi Panda PharmD Unavailable Angelica Saenz Unavailable Mao Palomino DDS Unavailable [phone] Encounter Details Date Type Department Care Team (Late st Contact Info) Description 02/15/2023 Telephone [facility] MEDICINE 230 [place] [address] Flora Santiago FNP [address] [place], [place] [phone] Social History Tobacco Use Types Packs/Day Years [...] call from sarah. Please contact pt at [phone] (Guinean) documented in this encounter Plan of Treatment Upcoming Encounters Date Type Department Care Team (Late st Contact Info) Description 11/05/2024 11:15 AM EDT Office Visit [facility] CHC MED & PEDS 505 [place] [address] Yunior Qureshi MD 505 [place] [address] 11/12/2024 9:45 AM EDT Office Visit [facility] MEDICINE [address] [place] [address] Flora Santiago FNP 505 [place] [address] 12/22/2024 9:30 AM EDT Medication Management [facility] MEDICINE 230 [place] [address] Kandi Panda PharmD 230 [place] [address] 12/24/2024 8:00 AM EDT Office Visit [facility] ADULT DENTAL 230 [place] [address] Dany, Angelica 230 [place] [address] documented as of this encounter Visit Diagnoses Not on filedocumented in this encounter Care Teams Head Charrer Relationship Specialty Start Date End Date Flora Santiago FNP [address] [place] [address] PCP - General Family Medicine 05/02/21 Sherin Hall, MICHELLE [address] [place] [address] Organizational Development Consultant Family Medicine 07/30/23 Juan Jose Deshpande MD [address] [place] [address] Nephrology 06/13/24 Michael Glass MD [address] [place] [address] Dr [address] [place] [address] General Surgery 06/13/24 Demetrius Austin MD [address] [place] [address] Orthopaedic Surgery 06/13/24 Harry Garcia MD [address] [address] Gastroenterology 06/13/24 Jovany Feliciano MD [address] [address] Cardiology 06/13/24 Kandi Panda PharmD [address] [place] [address] Pharmacist Internal Medicine 08/18/24 Angelica Saenz [address] [place] [address] Dental Hygienist Dental Customer Greeter 08/20/24 Mao Palomino DDS [address] [place] [address] Dentist Dental Customer Greeter 08/20/24 documented as of this encounter
--- OUTSIDE RECORDS SUMMARY | 2024-10-30 17:39 | XMS_ITS | Encounter Summary ---
Author Organization [employer] Address [address] [place] [address] 7t [place] [address] Care Team Providers Care Silk Trimmer Name Role Phone Flora Santiago SLURRY BLENDER Primary Care Provider Sherin Hall RN Unavailable [phone] Juan Jose Deshpande MD Unavailable [phone] Michael Glass MD Unavailable Demetrius Austin MD Unavailable Harry Garcia MD Unavailable [phone] Jovany Feliciano MD Unavailable Kandi Panda PharmD Unavailable Angelica Saenz Unavailable Mao Palomino DDS Unavailable [phone] Encounter Details Date Type Department Care Team (Late st Contact Info) Description 02/22/2023 Orders Only [facility] MEDICINE 230 [place], [place] [phone] Yanique Hart MD 230 [place], [place] [phone] Other ascites (Primary Dx) Social History Tobacco [...] Description 11/05/2024 11:15 AM EDT Office Visit [facility] CHC MED & PEDS 505 [place] [address] Yunior Qureshi MD 505 [place] [address] 11/12/2024 9:45 AM EDT Office Visit [facility] MEDICINE 230 [place] [address] Flora Santiago FNP 505 [place] [address] 12/22/2024 9:30 AM EDT Medication Management [facility] MEDICINE [address] [place] [address] Kandi Panda, PharmD 230 [place] [address] 12/24/2024 8:00 AM EDT Office Visit [facility] ADULT DENTAL 230 [place] [address] Dany, Angelica 230 [place] [address] Scheduled Orders Name Type Priority Associated Diagnoses [...] Primary documented in this encounter Care Teams Silk Trimmer Relationship Specialty Start Date End Date Flora Santiago FNP [address] [place] [address] PCP - General Family Medicine 05/02/21 Sherin Hall, RN [address] [place] [address] Bowling Alley Attendant Family Medicine 07/30/23 Juan Jose Deshpande MD [address] [place] [address] Nephrology 06/13/24 Michael Glass MD [address] [facility] [address] [place] [address] General Surgery 06/13/24 Demetrius Austin MD [address] [place] [address] Orthopaedic Surgery 06/13/24 Harry Garcia MD [address] [place] [address] Drive 3rd [place] [address] Gastroenterology 06/13/24 Jovany Feliciano MD [address] [place] [address] Cardiology 06/13/24 Kandi Panda PharmD [address] [place] [address] Pharmacist Internal Medicine 08/18/24 Angelica Saenz [address] [place] [address] Dental Hygienist Dental Medical Donation Professional 08/20/24 Mao Palomino DDS [address] [place] [address] Dentist Dental Medical Donation Professional 08/20/24 documented as of this encounter
--- OUTSIDE RECORDS SUMMARY | 2024-10-30 17:39 | XMS_ITS | Encounter Summary ---
Author Organization [employer] Address [address] [facility] 7t [place] [address] Care Team Providers Care Front End Java Developer Name Role Phone Flora Santiago Primary Care Provider Sherin Hall RN Unavailable [phone] Juan Jose Deshpande MD Unavailable [phone] Micahel Glass MD Unavailable Demetrius Austin MD Unavailable Harry Garcia MD Unavailable [phone] Jovany Feliciano MD Unavailable [phone] Kandi Panda PharmD Unavailable Angelica Saenz Unavailable Mao Palomino DDS Unavailable [phone] Reason for Visit * Reason Comments Med Refill Encounter Details Date Type Department Care Team (Late st Contact Info) Description 09/10/2024 Refill [facility] [address] [place] [address] Flora Santiago FNP [address] [place], [place] [phone] Social History Tobacco Use Types Packs/Day Years [...] Description 11/05/2024 11:15 AM EDT Office Visit [facility] CHC MED & PEDS 505 [place] [address] Yunior Qureshi MD 505 [place] [address] 11/12/2024 9:45 AM EDT Office Visit [facility] MEDICINE 230 [place] [address] Flora Santiago FNP 505 [place] [address] 12/22/2024 9:30 AM EDT Medication Management [facility] MEDICINE [address] [place] [address] Kandi Panda PharmD 230 [place] [address] 12/24/2024 8:00 AM EDT Office Visit [facility] ADULT DENTAL [address] [place] [address] Dallin Saenzaris 230 [place] [address] documented as of this encounter Goals Goal [...] documented as of this encounter Care Teams Front End Java Developer Relationship Specialty Start Date End Date Flora Santiago FNP [address] [place] [address] PCP - General Family Medicine 05/02/21 Sherin Hall, MICHELLE [address] [place] [address] Plastic Duplicator Family Medicine 07/30/23 Juan Jose Deshpande MD [address] [place] [address] [address] [place] [address] Nephrology 06/13/24 Michael Glass MD [address] [place] [address] Dr 3rd [place] [address] General Surgery 06/13/24 Demetrius Austin MD [address] [place] [address] Orthopaedic Surgery 06/13/24 Harry Garcia MD [address] 3rd [place] [address] Gastroenterology 06/13/24 Jovany Feliciano MD [address]rd [place] [address] Cardiology 06/13/24 Kandi Panda, Fredrick 230 [place] [address] Pharmacist Internal Medicine 08/18/24 Angelica Saenz 230 [place] [address] Dental Hygienist Dental Kindergarten Instructional Assistant 08/20/24 Mao Palomino DDS 230 [place] [address] Dentist Dental Kindergarten Instructional Assistant 08/20/24 documented as of this encounter
--- OUTSIDE RECORDS SUMMARY | 2024-10-30 17:39 | XMS_ITS | Encounter Summary ---
Author Organization [employer] Address 75 [facility] 7t [place] [address] Care Team Providers Care Logging Worker Name Role Phone Flora Santiago Primary Care Provider Sherin Hall RN Unavailable [phone] Juan Jose Deshpande MD Unavailable [phone] Michael Glass MD Unavailable [phone] Demetrius Austin MD Unavailable Harry Garcia MD Unavailable [phone] Jovany Feliciano MD Unavailable Kandi Panda PharmD Unavailable [phone] Angelica Saenz Unavailable Mao Palomino DDS Unavailable [phone] Reason for Visit * Reason Onset Date Comments ER Follow-up 12/19/2022 Encounter Details Date Type Department Care Team (Late st Contact Info) Description 12/19/2022 Telephone [facility] MEDICINE [address] [place] [address] Flora Santiago FNP [address] [place], [place] [phone] ER Follow-up Social History Tobacco Use Types [...] - 12/20/2022 12:22 PM EDT T/C to [phone] through [employer] id - [id number] to schedule HDF , No answer. LVM to call back on [phone]. * Telephone Encounter - Elizabeth Call - 12/19/2022 3:14 PM EDT Tc from pt requesting a HDF appt. Pt was admitted at [facility] on 12/09/22 and discharged on 12/10/22 due to hernia by belly button, lower back pain, liver and left hip pain. Patient advised will forward to team documented in this encounter Plan of Treatment Upcoming Encounters Date Type Department Care Team (Late st Contact Info) Description 11/05/2024 11:15 AM EDT Office Visit [facility] CHC MED & PEDS 505 [place], [place] [phone] Yunior Qureshi MD [address] [place], [place] [phone] 11/12/2024 9:45 AM EDT Office Visit [facility] MEDICINE [address] [place] [address] Flora Santiago FNP [address] [place] [address] 12/22/2024 9:30 AM EDT Medication Management [facility] MEDICINE [address] [place] [address] Kandi Panda PharmD 230 [place] [address] 12/24/2024 8:00 AM EDT Office Visit [facility] ADULT DENTAL [address] [place] [address] Dany Angelica [address] [place] [address] documented as of this encounter Visit Diagnoses Not on filedocumented in this encounter Care Teams Logging Worker Relationship Specialty Start Date End Date Flora Santiago FNP [address] [place] [address] PCP - General Family Medicine 05/02/21 Sherin Hall, RN 230 [place] [address] Tax Revenue Officer Family Medicine 07/30/23 Juan Jose Deshpande MD [address] [place] [address] Nephrology 06/13/24 Michael Glass MD [address] [place] [address] Dr [address] [place] [address] General Surgery 06/13/24 Demetrius Austin MD [address] [place] [address] Orthopaedic Surgery 06/13/24 Harry Garcia MD [address] [place] [address] Gastroenterology 06/13/24 Jovany Feliciano MD [address] 3rd [place] [address] Cardiology 06/13/24 Kandi Panda PharmD 230 [place] [address] Pharmacist Internal Medicine 08/18/24 Angelica Saenz [address] [place] [address] Dental Hygienist Dental Automobile Upholsterer Apprentice 08/20/24 Mao Palomino DDS [address] [place] [address] Dentist Dental Automobile Upholsterer Apprentice 08/20/24 documented as of this encounter
--- OUTSIDE RECORDS SUMMARY | 2024-10-30 17:39 | XMS_ITS ---
Author Organization [employer] [facility] Address [address] [facility] 7t [place] [address] Care Team Providers Care Fork Lift Truck Operator Name Role Phone Flora Santiago Primary Care Provider Sherin Hall RN Unavailable [phone] Juan Jose Deshpande MD Unavailable [phone] Michael Glass MD Unavailable [phone] Demetrius Austin MD Unavailable Harry Garcia MD Unavailable [phone] Jovany Feliciano MD Unavailable Kandi Panda PharmD Unavailable [phone] Angelica Saenz Unavailable Mao Palomino DDS Unavailable [phone] CM Complex Status:Outreach In Progress (Enrolling) Start date:10/09/2024 Enrollment reason:ADT Feed Overview ADT- Pt admitted to [facility] on 10/08/24. Case Team Name Relationship Phone Yaneth Rondon RN Registered Nurse(Responsible S taff) Continued Care and Services Coordination
--- OUTSIDE RECORDS SUMMARY | 2024-10-30 17:39 | XMS_ITS | Encounter Summary ---
Author Organization [employer] Address [address] [facility] 7t [place] [address] Care Team Providers Care Forge Tender Name Role Phone Flora Santiago CLASP MACHINE OPERATOR Primary Care Provider Sherin Hall RN Unavailable [phone] Juan Jose Deshpande MD Unavailable [phone] Michael Glass MD Unavailable [phone] Demetrius Austin MD Unavailable Harry Garcia MD Unavailable [phone] Jovany Feliciano MD Unavailable Kandi Panda PharmD Unavailable Angelica Saenz Unavailable Mao Palomino DDS Unavailable [phone] Encounter Details Date Type Department Care Team (Late st Contact Info) Description 07/14/2022 Orders Only [facility] CHC MED & PEDS [address] [place], [place] [phone] Shahnaz Perez LPN Social History Tobacco Use [...] Description 11/05/2024 11:15 AM EDT Office Visit [facility] CHC MED & PEDS 505 [place] [address] Yunior Qureshi MD 505 [place] [address] 11/12/2024 9:45 AM EDT Office Visit [facility] MEDICINE 230 [place] [address] Flora Santiago FNP 505 [place] [address] 12/22/2024 9:30 AM EDT Medication Management [facility] MEDICINE [address] [place] [address] Kandi Panda PharmD 230 [place] [address] 12/24/2024 8:00 AM EDT Office Visit [facility] ADULT DENTAL 230 [place] [address] Dany, Angelica 230 [place] [address] documented as of this encounter Visit Diagnoses Not on filedocumented in this encounter Care Teams Forge Tender Relationship Specialty Start Date End Date Flora Santiago FNP [address] [place] [address] PCP - General Family Medicine 05/02/21 Sherin Hall, RN [address] [place] [address] Preparer Making Department Family Medicine 07/30/23 Juan Jose Deshpande MD [address] [place] [address] Nephrology 06/13/24 Michael Glass MD [address] [facility] [address] 3rd [place] [address] General Surgery 06/13/24 Demetrius Austin MD [address] [place] [address] Orthopaedic Surgery 06/13/24 Harry Garcia MD [address] [place] [address] Gastroenterology 06/13/24 Jovany Feliciano MD [address] [facility] [address] [place] [address] Cardiology 06/13/24 Kandi Panda PharmD 230 [place] [address] Pharmacist Internal Medicine 08/18/24 Angelica Saenz 230 [place] [address] Dental Hygienist Dental Greenhouse Specialist 08/20/24 Mao Palomino DDS 230 [place] [address] Dentist Dental Greenhouse Specialist 08/20/24 documented as of this encounter
--- OUTSIDE RECORDS SUMMARY | 2024-10-30 17:39 | XMS_ITS | Encounter Summary ---
Author Organization [employer] Address [address] [place] [address] 7t [place] [address] Care Team Providers Care Striper Machine Name Role Phone Flora Santiago Primary Care Provider [phone] Sherin Hall RN Unavailable Juan Jose Deshpande MD Unavailable [phone] Michael Glass MD Unavailable [phone] Demetrius Austin MD Unavailable Harry Garcia MD Unavailable [phone] Jovany Feliciano MD Unavailable Kandi PandaD Unavailable Angelica Saenz Unavailable Moa Palomino DDS Unavailable Reason for Visit * Reason Onset Date Comments Hospital Follow-up 10/28/2024 Encounter Details Date Type Department Care Team (Late st Contact Info) Description 10/28/2024 Telephone [facility] MED & PEDS [address] [place], [place] [phone] Flora Santiago FNP 505 [place] [address] Hospital Follow-up Social History Tobacco Use Types Packs/Day [...] Telephone Encounter - Kasey Flores RN - 10/29/2024 11:36 AM EDT TC to patient. He states he is doing fine. Has a little pain that is well controlled with pain medications prescribed from ER. ER follow up appointment scheduled for 11/05 11:30. * Telephone Encounter - Keely Osorio - 10/28/2024 2:50 PM EDT Patient in requesting appt for hosp f/u. Patient indicated that he fell down the stairs at home went unconscious and transported to [facility] [place]. Patient informed dx: 4 broken ribs, 1 fx eye bone, back pain , chest and other parts of the body. Patient also was seen at [facility] and on 10/24/24 revisit ER @ [facility] for chest pain and other concerns. documented in this encounter Plan of Treatment Upcoming Encounters Date Type Department Care Team (Late st Contact Info) Description 11/05/2024 11:15 AM EDT Office Visit [facility] CHC MED & PEDS 505 [place] [address] Yunior Qureshi MD 505 [place] [address] 11/12/2024 9:45 AM EDT Office Visit [facility] MEDICINE [address] [place] [address] Flora Santiago FNP 505 [place] [address] 12/22/2024 9:30 AM EDT Medication Management [facility] MEDICINE 230 [place] [address] Kandi Panda PharmD 230 [place] [address] 12/24/2024 8:00 AM EDT Office Visit [facility] ADULT DENTAL 230 [place] [address] Agnelica Saenz 230 [place] [address] documented as of this encounter Goals Goal [...] documented as of this encounter Care Teams Striper Machine Relationship Specialty Start Date End Date Flora Santiago FNP [address] [place] [address] PCP - General Family Medicine 05/02/21 Sherin Hall, MICHELLE [address] [place] [address] Land Manager Family Medicine 07/30/23 Juan Jose Deshpande MD [address] [place] [address] Nephrology 06/13/24 Michael Glass MD [address] [place] [address] [place] [address] General Surgery 06/13/24 Demetrius Austin MD [address] [place] [address] Orthopaedic Surgery 06/13/24 Harry Garcia MD [address] [place] [address] Gastroenterology 06/13/24 Jovany Feliciano MD [address] [place] [address] Cardiology 06/13/24 Kandi Panda PharmD [address] [place] [address] Pharmacist Internal Medicine 08/18/24 Angelica Saenz [address] [place] [address] Dental Hygienist Dental Managed Care Coordinator 08/20/24 Mao Palomino DDS 230 [place] [address] Dentist Dental Managed Care Coordinator 08/20/24 documented as of this encounter
--- OUTSIDE RECORDS SUMMARY | 2024-10-30 17:39 | XMS_ITS | Encounter Summary ---
Author Organization [employer] Address 75 [facility] 7t [place] [address] Care Team Providers Care Grocery Shopper Name Role Phone Flora Santiago NURSERY SUPERVISOR Primary Care Provider [phone] Sherin Hall RN Unavailable [phone] Juan Jose Deshpande MD Unavailable [phone] Michael Glass MD Unavailable [phone] Demetrius Austin MD Unavailable Harry Garcia MD Unavailable [phone] Jovany Feliciano MD Unavailable Kandi Panda PharmD Unavailable [phone] Angelica Saenz Unavailable Mao Palomino DDS Unavailable [phone] Encounter Details Date Type Department Care Team (Latest Contact Info) Description 10/30/2024 Travel Social History Tobacco Use Types Packs/Day [...] Description 11/05/2024 11:15 AM EDT Office Visit [facility] CHC MED & PEDS 505 [place] [address] Yunior Qureshi MD 505 [place] [address] 11/12/2024 9:45 AM EDT Office Visit [facility] MEDICINE [address] [place] [address] Flora Santiago FNP 505 [place] [address] 12/22/2024 9:30 AM EDT Medication Management [facility] MEDICINE [address] [place] [address] Kandi Panda, RobertD 230 [place] [address] 12/24/2024 8:00 AM EDT Office Visit [facility] ADULT DENTAL 230 [place] [address] Angelica Saenz 230 [place] [address] documented as of this encounter Goals Goal [...] documented as of this encounter Care Teams Grocery Shopper Relationship Specialty Start Date End Date Flora Santiago FNP 230 [place] [address] PCP - General Family Medicine 05/02/21 Sherin Hall, RN 230 [place] [address] Technologies Division Chair Family Medicine 07/30/23 Juan Jose Deshpande MD [address] [place] [address] Nephrology 06/13/24 Michael Glass MD [address] [place] [address] Dr [address] [place] [address] General Surgery 06/13/24 Demetrius Austin MD [address] [place] [address] Orthopaedic Surgery 06/13/24 Harry Garcia MD [address] [place] [address] Gastroenterology 06/13/24 Jovany Feliciano MD [address] 3rd [place] [address] Cardiology 06/13/24 Kandi Panda PharmD [address] [place] [address] Pharmacist Internal Medicine 08/18/24 Angelica Saenz 230 [place] [address] Dental Hygienist Dental Grey Tender 08/20/24 Mao Palomino DDS 230 [place] [address] Dentist Dental Grey Tender 08/20/24 documented as of this encounter
== END 2024-10-30 14:56 | disposition home or self-care (01) ==
LOC: HO.HHCL 14:55
PROVIDERS: Visit Provider Nurse Practitioner
DX: E87.1 Hypo-osmolality and hyponatremia (principal); R80.9 Proteinuria, unspecified
CPT/HCPCS: 36415; 84550

== ENCOUNTER 2024-12-08 13:51 | Outpatient (REF) | payer MEDICAID, SELFPAY ==
[2024-12-08 16:44] LABS: Prostate Specific Antigen Scr 0.84 ng/mL (<0.05-4.0)
[2024-12-08 17:00] LABS: Creatinine Urine 38.66 mg/dL; Microalbum/Creatinine Ratio Ur 15.5 ug/mg cr (<30)
[2024-12-10 22:23] LABS: TS Negative Control Passed; TS Panel A 0; TS Panel B 0; TS Positive Control Passed; TSpotTB Negative (Negative)
== END 2024-12-08 13:52 | disposition home or self-care (01) ==
LOC: HO.HHCL 13:51
PROVIDERS: Visit Provider Registered Nurse
DX: Z00.00 Encounter for general adult medical examination without abnormal findings (principal); E11.65 Type 2 diabetes mellitus with hyperglycemia; Z79.4 Long term (current) use of insulin
CPT/HCPCS: 36415; 82043; 82570; 84153; 86481

== ENCOUNTER 2024-12-09 09:02 | Outpatient (REF) | payer MEDICAID, SELFPAY ==
--- OUTSIDE RECORDS SUMMARY | 2024-12-09 09:48 | XMS_ITS | Encounter Summary ---
Author Organization [employer] Address 75 [facility] 7t [place] [address] Care Team Providers Care Quality Assurance Director Name Role Phone Flora Santiago ACCOUNTING ADMINISTRATOR Primary Care Provider [phone] Sherin Hall RN Unavailable [phone] Juan Jose Deshpande MD Unavailable [phone] Michael Glass MD Unavailable [phone] Demetrius Austin MD Unavailable Harry Garcia MD Unavailable [phone] Jovany Feliciano MD Unavailable Kandi Panda PharmD Unavailable [phone] Angelica Saenz Unavailable Mao Palomino DDS Unavailable [phone] Encounter Details Date Type Department Care Team (Late st Contact Info) Description 05/25/2023 Abstract [facility] MEDICINE [address] [place] [address] Debi Zamora Social History Tobacco Use Types [...] Care Team (Late st Contact Info) Description 12/22/2024 9:30 AM EDT Medication Management [facility] MEDICINE [address] [place] [address] Kandi Panda, PharmD 230 [place] [address] 12/24/2024 8:00 AM EDT Office Visit [facility] ADULT DENTAL [address] [place] [address] Dany, Angelica 230 [place] [address] 02/27/2025 1:00 PM EDT Office Visit [facility] MEDICINE [address] [place] [address] Doug Fay MD 230 [place] [address] 03/02/2025 10:30 AM EDT Office Visit [facility] CHC MED & PEDS 505 [place] [address] Flora Santiago FNP 505 [place] [address] documented as of this encounter Procedures Procedure Name Priority Date/Time Associated Diagnosis Comments COLONOSCOPY Routine 03/17/2021 documented in this encounter Results * Colonoscopy (03/17/2021) Colonoscopy Normal Normal Narrative Debi Zamora - 03/17/2021 Repeat in 5 years tubular adenoma us Historical Provider HEALTH MAINTENANCE Final Result documented in this encounter Visit Diagnoses Not on filedocumented in this encounter Care Teams Quality Assurance Director Relationship Specialty Start Date End Date Flora Santiago FNP 230 [place] [address] PCP - General Family Medicine 05/02/21 Sherin Hall, RN [address] [place] [address] Cable Swager Family Medicine 07/30/23 Juan Jose Deshpande MD [address] [place] [address] Nephrology 06/13/24 Michael Glass MD [address] [place] [address] Dr [address] [place] [address] General Surgery 06/13/24 Demetrius Austin MD [address] [place] [address] Orthopaedic Surgery 06/13/24 Harry Garcia MD 11 [facility] 3rd [place] [address] Gastroenterology 06/13/24 Jovany Feliciano MD [address] [address] Cardiology 06/13/24 Kandi Panda, Fredrick [address] [place] [address] Pharmacist Internal Medicine 08/18/24 Angelica Saenz 230 [place], [place] [phone] Dental Hygienist Dental Svp Digital Sales 08/20/24 Mao Palomino DDS [address] [place], [place] [phone] Dentist Dental Svp Digital Sales 08/20/24 documented as of this encounter
[2024-12-09 11:35] LABS: Appearance Urine Clear; Color Urine Yellow; Glucose Urine UA >=1000 mg/dL (Negative); Leukocyte Esterase Urine Negative (Negative); Nitrite Urine Negative (Negative); PH 6.5 (5.0-9.0); Specific Gravity - Urine >= 1.030 (1.005-1.025); UMIC TRIGGER UA YES; Urine Blood Small (1+) (Negative); Urine Ketones Negative (Negative); Urine Protein Negative (Neg-Trace)
[2024-12-09 11:39] LABS: Bacteria Urine None Seen (None Seen); Hyaline Casts Urine 0-2 /LPF (0-2); Squamous Epithelial Cell Urine 0-2 /HPF (0-2); WBC Urine 0-5 /HPF (0-5)
[2024-12-09 12:10] LABS: Anion Gap 12 (12-20); Blood Urea Nitrogen 15 mg/dL (9-16); Calcium 9.3 mg/dL (8.4-10.2); Carbon Dioxide 24 mmol/L (22-29); Chloride 106 mmol/L (96-108); Estimated Glomerular Filt Rate > 60; Glucose Random 245 mg/dL (60-115); Potassium 3.8 mmol/L (3.3-5.1); Sodium 138 mmol/L (135-145)
[2024-12-09 12:30] LABS: Creatinine Urine 38.07 mg/dL; Total Protein Urine Random < 7 mg/dL (<12)
[2024-12-11 13:33] LABS: Prot Elec - Albumin 3.7 g/dL (3.8-4.8); Prot Elec - Alpha1 0.3 g/dL (0.2-0.3); Prot Elec - Alpha2 0.7 g/dL (0.5-0.9); Prot Elec - Beta 1 0.6 g/dL (0.4-0.6); Prot Elec - Beta 2 0.8 g/dL (0.2-0.5); Prot Elec - Gamma 1.1 g/dL (0.8-1.7); Prot Elec - Total Protein 7.1 g/dL (6.1-8.1)
[2024-12-11 20:49] LABS: IgA 994 mg/dL (47-310); IgG 1174 mg/dL (600-1640); IgM 181 mg/dL (50-300)
== END 2024-12-09 09:03 | disposition home or self-care (01) ==
LOC: HO.HHCL 09:02
PROVIDERS: Visit Provider Internal Medicine Hypertension Specialist
DX: R80.9 Proteinuria, unspecified (principal); N18.31 Chronic kidney disease, stage 3a
CPT/HCPCS: 80048; 81001; 82570; 82784; 84156; 84165; 86334; 86335

== ENCOUNTER 2024-12-11 10:53 | Outpatient (REF) | payer MEDICAID, SELFPAY ==
[2024-12-11 11:58] LABS: Vitamin D 25-OH Total 35.7 ng/mL (>30)
[2024-12-11 12:11] LABS: Folate 11.4 ng/mL (> or = 4.0); Vitamin B12 912 pg/mL (200-900)
--- OUTSIDE RECORDS SUMMARY | 2024-12-11 12:51 | XMS_ITS | Encounter Summary ---
Author Organization [employer] Address 75 [facility] 7t [place] [address] Care Team Providers Care Jewelry Sales Coordinator Name Role Phone Flora Santiago SOLE LAYER HAND Primary Care Provider [phone] Sherin Hall RN Unavailable [phone] Juan Jose Deshpande MD Unavailable Michael Glass MD Unavailable [phone] Demetrius Austin MD Unavailable Harry Garcia MD Unavailable [phone] Jovany Feliciano MD Unavailable Kandi Panda PharmD Unavailable [phone] Angelica Saenz Unavailable Mao Palomino DDS Unavailable [phone] Encounter Details Date Type Department Care Team (Late st Contact Info) Description 05/25/2023 Abstract [facility] MEDICINE [address] [place] [address] Debi Zamora Social History Tobacco Use Types [...] Description 12/22/2024 9:30 AM EDT Medication Management [facility] MEDICINE [address] [place] [address] Kandi Panda, PharmD [address] [place] [address] 12/24/2024 8:00 AM EDT Office Visit [facility] ADULT DENTAL [address] [place] [address] Dany, Angelica [address] [place] [address] 02/27/2025 1:00 PM EDT Office Visit [facility] MEDICINE [address] [place] [address] Doug Fay MD [address] [place] [address] 03/02/2025 10:30 AM EDT Office Visit [facility] CHC MED & PEDS 505 [place] [address] Flora Santiago FNP 505 [place] [address] documented as of this encounter Procedures Procedure Name Priority Date/Time Associated Diagnosis Comments COLONOSCOPY Routine 03/17/2021 documented in this encounter Results * Colonoscopy (03/17/2021) Colonoscopy Normal Normal Narrative Debi Zamora - 03/17/2021 Repeat in 5 years tubular adenoma us Historical Provider HEALTH MAINTENANCE Final Result documented in this encounter Visit Diagnoses Not on filedocumented in this encounter Care Teams Jewelry Sales Coordinator Relationship Specialty Start Date End Date Flora Santiago FNP [address] [place] [address] PCP - General Family Medicine 05/02/21 Sherin Hall, RN [address] [place] [address] Plater Supervisor Family Medicine 07/30/23 Juan Jose Deshpande MD [address] [place] [address] Nephrology 06/13/24 Michael Glass MD [address] [place] [address] Dr [address] [place] [address] General Surgery 06/13/24 Demetrius Austin MD [address] [place] [address] Orthopaedic Surgery 06/13/24 Harry Garcia MD 11 [facility] 3rd [place] [address] Gastroenterology 06/13/24 Jovany Feliciano MD [address] [address] Cardiology 06/13/24 Kandi Panda, Fredrick [address] [place] [address] Pharmacist Internal Medicine 08/18/24 Angelica Saenz [address] [place], [place] [phone] Dental Hygienist Dental Structural Steel Painter 08/20/24 Mao Palomino DDS [address] [place], [place] [phone] Dentist Dental Structural Steel Painter 08/20/24 documented as of this encounter
[2024-12-14 17:59] LABS: Nicotinamide 20 ng/mL (see note); Vit B3 - Nicotinic Acid <20 ng/mL (see note)
[2024-12-15 03:14] LABS: Zinc 66 mcg/dL (60-130)
[2024-12-16 02:09] LABS: Alpha-Tocopherol 10.7 mg/L (5.7-19.9)
[2024-12-16 06:29] LABS: Vitamin B5 (Pantothenic Acid) <=40 ng/mL (<275)
[2024-12-16 14:14] LABS: Vitamin B1 20 nmol/L (8-30)
[2024-12-16 15:14] LABS: Vitamin B6 7.4 ng/mL (2.1-21.7)
[2024-12-16 18:32] LABS: Vitamin A 30 mcg/dL (38-98)
[2024-12-16 20:38] LABS: Vitamin K1 250 pg/mL (130-1500)
== END 2024-12-11 10:54 | disposition home or self-care (01) ==
LOC: HO.LAB 10:53
PROVIDERS: PCP Registered Nurse; Visit Provider Internal Medicine Gastroenterology
DX: E46 Unspecified protein-calorie malnutrition (principal)
CPT/HCPCS: 36415; 82306; 82607; 82746; 84207; 84425; 84446; 84590; 84591; 84597; 84630

== ENCOUNTER 2024-12-15 11:14 | Emergency (ER) | payer MEDICAID, SELFPAY ==
--- NOTE | ~2024-12-15 | CT_ITS ---
EXAMINATION: CT HEAD WITHOUT CONTRAST CLINICAL INFORMATION: Fall, head trauma, recent ethanol consumption COMPARISON: October 07, 2024 TECHNIQUE: Contiguous axial imaging was performed from the skull base to vertex without intravenous administration of contrast. This CT examination was performed using dose optimization techniques as appropriate, variously including the following: *Automated exposure control *Adjustment of mA and/or kV according to patient size (this includes techniques or standardized protocols for targeted exams where dose is matched to indication/reason for exam; i.e. extremities or head) *Use of iterative reconstruction technique DLP: 724 mGY*cm FINDINGS: There is no acute ischemic change. There is no intracranial hemorrhage. There is no mass-effect or midline shift. Basal cisterns and ventricles are within normal limits for age/cerebral volume. Orbits are symmetrical and unremarkable. Paranasal sinuses and mastoid air cells are pneumatized. There are no acute bony abnormalities. There is persistent lucency at the junction of lateral orbital wall and zygoma from remote fracture. CT/CT head/brain wo IV con IMPRESSION: No acute intracranial abnormality Electronically signed by: Matt Osorio MD 12/15/2024 03:18 PM EDT
--- NOTE | ~2024-12-15 | XR_ITS ---
EXAMINATION: XR KNEE 3 VIEWS LEFT HISTORY: knee pain, fall, anterior TTP and abrasion COMPARISON: Comparison is made with the prior examination dated 05/08/2014. FINDINGS: Three views of the left knee are submitted. Osseous mineralization is normal. There is no fracture or dislocation. The joint spaces are preserved. The soft tissues are unremarkable. There is no joint effusion. XR/XR knee LT 3V IMPRESSION: Unremarkable examination of the left knee. Electronically signed by: Jun Waller MD 12/15/2024 01:43 PM EDT
[2024-12-15 11:21] VITALS: BP 142/79; BP 162/92; PULSE 94; PULSE 98; RESP 18; TEMP 36.8; O2SAT 95; O2SAT 98; BMI 29.0
[2024-12-15 11:38] VITALS: BP 142/79; PULSE 94; RESP 18; TEMP 36.8; O2SAT 98
--- NOTE | 2024-12-15 11:42 | PC.NURSE ---
59 M presents to ED via EMS d/t stating he has been drinking for 4 days and has frequent falls. Pt A+Ox4, denies any pain or concerns at this time. Pt states he drinks a couple of beers a couple times/week, sts last drink was a beer this morning. Pt became angry with and daughter visited. Pt now calm, resting. RR even and unlabored, denies SOB.
--- NOTE | 2024-12-15 11:48 | ED_ITS ---
HPI - Alcohol General Chief Complaint: ETOH/Substance Use Stated Complaint: FAM STS INTOXICATION 3 DAYS,W/MULTI FALLS W/INJURY Time Seen by Provider: 12/15/24 11:48 History of Present Illness ED Provider: Greg Ryan MD HPI narrative: . Patient minimally contributory history daughter at the bedside she has not nurse if hospital could put him into detox but the patient declines this. Does acknowledge an injury 2 days ago with a fall onto the face scattered lacerations there denies headache no abdominal pain no GI bleeding no other symptoms Family called EMS for fall risk, chronic ETOH use particularly over the last 4 days Related Data Home Medications ?Medication ?Instructions ?Recorded ?Confirmed insulin degludec 100 unit/mL (3 20 unit subcut BEDTIME 05/26/20 07/31/24 mL) subcutaneous pen (Tresiba FlexTouch U-100 insulin) insulin lispro 100 unit/mL 1 sliding scale dose subcut TIDAC 05/26/20 07/31/24 subcutaneous pen (Humalog KwikPen (U-100) Insulin) cholecalciferol (vitamin D3) 50 50 mcg PO DAILY 01/01/23 07/31/24 mcg (2,000 unit) tablet empagliflozin 25 mg tablet 25 mg PO QAM 09/14/23 07/31/24 (Jardiance) blood sugar diagnostic (FreeStyle #10 ea 04/28/24 07/31/24 Lite Strips) flash glucose sensor (FreeStyle #1 ea 04/28/24 07/31/24 Bill 2 Sensor kit) lancets 33 gauge (TRUEplus Lancets) #100 ea 04/28/24 07/31/24 pen needle, diabetic 31 gauge x #1,200 ea 04/28/24 07/31/24 3/16 (Sure Comfort Pen Needle) lisinopril 10 mg tablet 10 mg PO DAILY 07/30/24 07/31/24 diclofenac sodium 1 % topical gel 2 g topical BID PRN 09/15/24 eplerenone 50 mg tablet (Inspra) 50 mg PO QAM 09/15/24 meloxicam 7.5 mg tablet 7.5 mg PO DAILY 09/15/24 folic acid 1 mg tablet 1 mg PO DAILY 10/20/24 vitamin B complex-folic acid 0.4 1 tab PO QAM 10/20/24 mg tablet (B Complex 1 (with folic acid)) Previous Rx's ?Medication ?Instructions ?Recorded rifaximin 550 mg tablet 550 mg PO TID 2 weeks #42 tabs 09/14/23 tadalafil 20 mg tablet (Cialis) 20 mg PO .PRN PRN sexual activity 12/31/23 90 days #45 tabs tadalafil 5 mg tablet (Cialis) 5 mg PO DAILY 90 days #90 tabs 12/31/23 cyclobenzaprine 5 mg tablet 5 mg PO TID PRN muscle spasm #10 03/20/24 tabs lidocaine 5 % topical patch 1 patch topical DAILY #15 ea 03/20/24 metoprolol succinate 25 mg capsule 25 mg PO DAILY #30 ea 07/17/24 sprinkle, ext. release 24 hr vitamin A 3,000 mcg (10,000 unit) 1 cap PO QPM #90 caps 08/18/24 capsule pantoprazole 40 mg tablet,delayed 40 mg PO DAILY #60 tabs 09/15/24 release alirocumab 75 mg/mL subcutaneous See Rx Instructions .Route 10/01/24 pen injector (Praluent Pen) .COMPLEX #2 mL oxycodone 5 mg tablet 5 mg PO Q6H PRN pain #20 tabs 10/23/24 zinc sulfate 50 mg zinc (220 mg) 50 mg PO QPM #90 caps 11/05/24 capsule Allergies Allergy/AdvReac Type Severity Reaction Status Date / Time shrimp Allergy Severe Difficulty Verified 12/15/24 22:39 Breathing atorvastatin [ATORVASTATIN] AdvReac Intermediate elevated Verified 12/15/24 22:39 LFTs PMFSH Past Medical History Medical History Diabetes Back pain GERD (gastroesophageal reflux disease) Cirrhosis CAD (coronary artery disease) Palpitations Arthritis Fibromyalgia SALGUERO (nonalcoholic steatohepatitis) Fatty liver Depression Hyperlipidemia, unspecified Type 2 diabetes mellitus with unspecified complications Essential hypertension Atherosclerotic cardiovascular disease Surgical History History of umbilical hernia repair (05/23/24) History of abdominal paracentesis Hx of cholecystectomy History of umbilical hernia repair Hx of endoscopy History of colonoscopy History of ankle surgery Left inguinal hernia (05/04/23) Gallstone Family History Family History Father Diabetes Mother No problems noted. Social History Social History Household Members: Spouse Housing: House Are you a primary laboratory animal care veterinarian to a significant other at home: No Do you presently have visiting nurse or other home services: No Unable to assess alcohol history related to: Unknown Alcohol intake: current Alcohol intake frequency: 0-2 drinks per day Alcohol type: beer Comment: pt medicated Patient Tobacco Use Status: Current someday Tobacco user Tobacco use type: Cigar service: No Current occupational status: employed Current occupation: [employer] Physical Exam ED Vital Signs: Vital Signs - 24 hr 12/15/24 11:21 12/15/24 11:38 Temperature 98.2 F 98.2 F Pulse Rate 94 94 Respiratory Rate 18 18 Blood Pressure 142/79 H 142/79 H Pulse Oximetry 98 98 Oxygen Delivery Method Room Air Room Air BMI result Body Mass Index 29.0 Const Other: Primary Survey: GCS: 15 Airway: Intact airway Breathing: Spontaneous respirations with bilateral breath sounds Circulation: Palpable bilateral carotid, brachial, femoral DP pulses with good skin color and distal perfusion. Disability: No gross paresis of the extremities or obvious focal neuro deficit. E FAST Ultrasound: Not indicated Secondary Survey: GENERAL: Well appearing. No apparent distress. Alert. HEAD The head is atraumatic, without swelling or ecchymosis of the face or behind the ears, including the periorbital area. There is no tenderness to face, and the oral and nasal mucosa are nonbloody. Dentition is intact. The TMs are without hemotympanum. NECK: Cervical collar in place. There is no midline cervical neck tenderness or stepoffs. The patient denies any numbness, tingling, or weakness of the extremities. The patient is able to range their neck completely without midline cervical pain, numbness, tingling, or weakness. EYES: Normal to inspection. Sclera non-icteric. EOMI, Pupils grossly symmetric/reactive. ENMT: Healing scabbed laceration to the central forehead about 2.5 cm no foreign bodies minimal underlying hematoma no crepitus. Laceration of the bridge of the nose about 1 cm healing with scabbing. No septal hematoma or gross deformity of the nose or face RESPIRATORY: Respiratory effort normal. Lungs clear to auscultation bilaterally. CARDIOVASCULAR: Regular rate. Normal rhythm. No murmur. No rubs. GI: Soft, non-tender, non-distended. No rebound or guarding. No masses palpable. No hepatosplenomegaly. No bruising. MSK: Chest Wall: Atraumatic, nontender, no crepitus, seat belt sign or ecchymosis. Back: No ecchymosis, no abrasions or other external signs of trauma, no midline spinal tenderness. Upper Extremities: Atraumatic, no swelling, deformity, focal tenderness, +FROM of all joints. Lower Extremities: Atraumatic, no swelling, deformity, focal tenderness, +FROM of all joints. SKIN: No jaundice. Abrasions bilateral knee left greater than right otherwise no, lacerations, or ecchymosis. NEUROLOGICAL: Alert. Comprehensive Neuro exam: Face symmetric, tongue midline, strong symmetric eye closure intact strong face deviation and shoulder shrug. Sensation intact to light touch throughout 5 out of 5 strength in bilateral upper extremities, 5 and 5 strength in lower extremities bilaterally? PSYCHIATRIC: Alert. Appearance appropriate for situation. Attitude cooperative. Medical Decision Making Medical Decision Making MDM Narrative: [age] male alcohol use disorder. Frequent falls brought in by family for evaluation they are requesting detox patient declines any help with alcohol use. He fell over 48 hours ago he is got a healing laceration and hematoma of the forehead and the bridge of the nose no epistaxis or septal hematoma. Also has abrasions to the knees left greater than right with tenderness. ETOH 350+. We will continue to monitor. Mild hypernatremia likely dehydration. We will replete thiamine No signs of torso injury patient was examined thoroughly TD UD certainly no actionable or indication for emergent ENT consultation. Family provided information for Differential Diagnosis Differential Diagnoses: The differential diagnosis associated with the presentation includes Intracranial hemorrhage, forehead laceration with secondary intention healing. Unlikely nasal fracture Lab Data 12/15/24 12:32 12/15/24 12:32 Labs: Lab Results 12/15/24 12/15/24 Range/Units 12:32 12:44 WBC 9.6 (4.8-10.8) X10*3/uL RBC 5.05 (4.60-5.80) X10*6/uL Hgb 13.1 L (14.0-18.0) g/dl Hct 40.9 L (42.0-52.0) % MCV 81.0 (80.0-98.0) fL MCH 25.9 L (27.0-33.0) pg MCHC 32.0 (31.0-36.0) g/dl RDW 14.0 (11.0-16.0) % Plt Count 233 D (160-400) X10*3/uL MPV 9.2 L (9.4-12.4) fL Immature Gran % (Auto) 0.3 (0.0-0.4) % Neut % (Auto) 68.4 (45-73) % Lymph % (Auto) 24.1 (20-40) % [place] % (Auto) 5.1 (2-11) % Eos % (Auto) 1.4 (0-4) % Baso % (Auto) 0.7 (0-2) % Lymph # (Auto) 2.3 (1.2-4.9) X10*3/uL [place] # (Auto) 0.5 (0.1-1.2) X10*3/uL Eos # (Auto) 0.1 (0.0-0.4) X10*3/uL Baso # (Auto) 0.1 (0.0-0.2) X10*3/uL Abs Immat Gran (auto) 0.03 (0.00-0.03) X10*3/uL Absolute Neuts (auto) 6.6 (2.0-8.3) x10*3/uL Absolute Nucleated RBC 0.000 (0.0-0.012) X10*3/uL Nucleated RBC % (auto) 0.0 (0.0-0.2) /100WBC Sodium 146 H (135-145) mmol/L Potassium 3.7 (3.3-5.1) mmol/L Chloride 105 (96-108) mmol/L Carbon Dioxide 27 (22-29) mmol/L Anion Gap 18 (12-20) BUN 6 L (9-16) mg/dL Creatinine 0.67 (0.5-1.4) mg/dL Estim Creat Clear Calc 123.0 Estimated GFR > 60 Random Glucose 177 H (60-115) mg/dL Calcium 8.6 D (8.4-10.2) mg/dL Total Bilirubin 0.5 (0.0-1.0) mg/dL AST 47 H (5-37) U/L ALT 22 (0-40) U/L Alkaline Phosphatase 211 H (39-117) U/L Total Protein 7.4 (6.5-8.0) g/dL Albumin 3.8 (3.5-5.0) g/dL Urine Opiates Screen Not Detected (Not Detect) Ur Buprenorphine Scrn Not Detected (Not Detect) ng/mL Ur Oxycodone Screen Not Detected (Not Detect) ng/mL Urine Methadone Screen Not Detected (Not Detect) ng/mL Urine Fentanyl Screen Not Detected (Not Detect) Ur Barbiturates Screen Not Detected (Not Detect) Ur Phencyclidine Scrn Not Detected (Not Detect) Ur Amphetamines Screen Not Detected (Not Detect) U Benzodiazepines Scrn Not Detected (Not Detect) Urine Cocaine Screen Not Detected (Not Detect) U Marijuana (THC) Screen Not Detected (Not Detect) Ethyl Alcohol 354 H* mg/dL Medications Administered Discontinued Medications Generic Name Dose Route Start Last Admin Trade Name Freq PRN Reason Stop Dose Admin Diphtheria/Tetanus/Acell Pertussis 0.5 ml 12/15/24 13:42 12/15/24 15:26 Diphth,Pertus(Acell),Tet Adult 0.5 Ml Syringe IM 12/15/24 13:43 0.5 ml .ONCE ONE Administration Thiamine HCl 400 mg/ Sodium 104 mls @ 208 mls/hr 12/15/24 11:49 12/15/24 13:45 Chloride IV 12/15/24 12:18 Infused ONCE ONE Infusion Lactated Ringer's 1,000 mls @ 999 mls/hr 12/15/24 12:00 12/15/24 14:00 Lr IV 12/15/24 13:00 Infused .Q1H1M CORBY Infusion Discharge Plan Discharge Clinical Impression: Alcohol use disorder, Concussion, Laceration of face Patient Disposition: Home, Self-Care Instructions: Laceration (DC), Concussion (ED), Abuse of Alcohol (DC) Additional Instructions: _ DISCHARGE DIAGNOSES: Laceration of the face that we will allow to heal naturally because you presented 2 days after your injury HISTORY OF PRESENTATION: Fall 2 days ago heavy alcohol drinking brought in by family EMERGENCY DEPARTMENT COURSE,TESTS, TREATMENTS: While in the ED today your family brought in for evaluation you had lacerations on your face that had already begun to heal. We updated your tetanus and gave you thiamine vitamin. We monitored you for sobriety and safety. DISCHARGE MEDICATIONS: ?[We have made no changes to your regular medication regimen] FOLLOW-UP: ?Call your primary or general physician soon as possible to discuss your symptoms, your ED visit and to discuss follow up plans Call PCP for follow up INSTRUCTIONS ?& RETURN PRECAUTIONS: If any symptoms change first call your primary physician, if it is after-hours your primary doctors office should have a provider rayon tester you can speak with. If the symptoms are severe or very concerning to you then call 911 or return to the ED. Greg Ryan MD Emergency Physician [facility] Prescriptions: No Action vitamin A 3,000 mcg (10,000 unit) capsule 1 cap PO QPM Qty: 90 1RF Praluent Pen 75 mg/mL pen injector See Rx Instructions .ROUTE .COMPLEX Qty: 2 3RF Dose Instruction: INJECT 75 MG (1 PEN) SUBCUTANEOUSLY EVERY 2 WEEKS. ROTATE INJECTION SITES Rx Instructions: INJECT 75 MG (1 PEN) SUBCUTANEOUSLY EVERY 2 WEEKS. ROTATE INJECTION SITES zinc sulfate 50 mg zinc (220 mg) capsule 50 mg PO QPM Qty: 90 1RF metoprolol succinate 25 mg capsule,sprinkle,ER 24hr 25 mg PO DAILY Qty: 30 0RF lidocaine 5 % adhesive patch,medicated 1 patch topical DAILY Qty: 15 0RF Rx Instructions: leave on most painful area for up to 12 hrs cyclobenzaprine 5 mg tablet 5 mg PO TID PRN (Reason: muscle spasm) Qty: 10 0RF oxycodone 5 mg tablet 5 mg PO Q6H PRN (Reason: pain) Qty: 20 0RF Rx Instructions: Partial Fill upon patient request. insulin lispro [Humalog KwikPen Insulin] 100 unit/mL insulin pen 1 sliding scale dose subcut TIDAC Tresiba FlexTouch U-100 100 unit/mL (3 mL) insulin pen 20 unit subcut BEDTIME cholecalciferol (vitamin D3) 50 mcg (2,000 unit) tablet 50 mcg PO DAILY tadalafil [Cialis] 5 mg tablet 5 mg PO DAILY 90 Days Qty: 90 1RF Rx Instructions: [id number] [facility]33 Member [id number] tadalafil [Cialis] 20 mg tablet 20 mg PO .PRN PRN (Reason: sexual activity) 90 Days Qty: 45 0RF Rx Instructions: administer approximately 30min before sexual activity; do not use more than 1 dose per 24hrs [id number] [facility]33 Member [id number] meloxicam 7.5 mg tablet 7.5 mg PO DAILY eplerenone [Inspra] 50 mg tablet 50 mg PO QAM diclofenac sodium 1 % gel 2 g topical BID PRN pantoprazole 40 mg tablet,delayed release (DR/EC) 40 mg PO DAILY Qty: 60 1RF Jardiance 25 mg tablet 25 mg PO QAM rifaximin 550 mg tablet 550 mg PO TID 14 Days Qty: 42 0RF lisinopril 10 mg tablet 10 mg PO DAILY (DME) FreeStyle Bill 2 Sensor Kit See Rx Instructions .ROUTE Q2W Qty: 1 Rx Instructions: As directed (DME) lancets [TRUEplus Lancets] 33 gauge misc See Rx Instructions .ROUTE TID Qty: 100 Rx Instructions: As directed (DME) pen needle, diabetic [Sure Comfort Pen Needle] 31 gauge x 3/16 needle See Rx Instructions .ROUTE QID Qty: 1200 Rx Instructions: As directed (DME) FreeStyle Lite Strips Strip See Rx Instructions .ROUTE TID Qty: 10 Rx Instructions: As directed vitamin B complex-folic acid [B Complex 1 (with folic acid)] 0.4 mg tablet 1 tab PO QAM folic acid 1 mg tablet 1 mg PO DAILY Interventions: ED Discharge Assessment Last Done: 12/15/24 18:13 Discharge Date/Time: 12/15/24 18:14 Print Language: Stateless
[2024-12-15 12:35] LABS: MANUAL DIFF FLAG NO
[2024-12-15 12:37] LABS: Basophils Absolute Auto 0.1 X10*3/uL (0.0-0.2); Basophils Percent Auto 0.7 % (0-2); Eosinophils Absolute Auto 0.1 X10*3/uL (0.0-0.4); Eosinophils Percent Auto 1.4 % (0-4); Hematocrit 40.9 % (42.0-52.0); Hemoglobin 13.1 g/dl (14.0-18.0); Imm Gran Abs Auto 0.03 X10*3/uL (0.00-0.03); Imm Gran Pct Auto 0.3 % (0.0-0.4); Lymphocytes Absolute Auto 2.3 X10*3/uL (1.2-4.9); Lymphocytes Percent Auto 24.1 % (20-40); Mean Corpuscular Hemoglobin 25.9 pg (27.0-33.0); Mean Platelet Volume 9.2 fL (9.4-12.4); Monocytes Absolute Auto 0.5 X10*3/uL (0.1-1.2); Monocytes Percent Auto 5.1 % (2-11); Neutrophils Absolute Auto 6.6 x10*3/uL (2.0-8.3); Neutrophils Percent Auto 68.4 % (45-73); Platelet Count 233 X10*3/uL (160-400); Red Blood Count 5.05 X10*6/uL (4.60-5.80); White Blood Count 9.6 X10*3/uL (4.8-10.8)
[2024-12-15 13:00] LABS: Alanine Aminotransferase 22 U/L (0-40); Albumin Level 3.8 g/dL (3.5-5.0); Alkaline Phosphatase 211 U/L (39-117); Anion Gap 18 (12-20); Aspartate Amino Transferase 47 U/L (5-37); Bilirubin Total 0.5 mg/dL (0.0-1.0); Blood Urea Nitrogen 6 mg/dL (9-16); Calcium 8.6 mg/dL (8.4-10.2); Carbon Dioxide 27 mmol/L (22-29); Chloride 105 mmol/L (96-108); Estimated Glomerular Filt Rate > 60; Ethanol 354 mg/dL; Glucose Random 177 mg/dL (60-115); Potassium 3.7 mmol/L (3.3-5.1); Sodium 146 mmol/L (135-145); Total Protein 7.4 g/dL (6.5-8.0)
[2024-12-15 13:01] LABS: Amphetamine Screen Urine Not Detected (Not Detect); Barbiturates, Urine Not Detected (Not Detect); Benzodiazepines Screen Urine Not Detected (Not Detect); Buprenorphine Scr Not Detected (Not Detect); Cannabinoid Screen Urine Not Detected (Not Detect); Cocaine Screen Urine Not Detected (Not Detect); Fentanyl, urine Not Detected (Not Detect); Methadone Screen, Urine Not Detected (Not Detect); Opiate Screen Urine Not Detected (Not Detect); Oxycodone Screen Urine Not Detected (Not Detect); Phencyclidine Screen Urine Not Detected (Not Detect)
[2024-12-15] MEDS: Thiamine HCL 400 MG in 0.9 % Sodium Chloride 100 ML 208 MG IV (13:10)
[2024-12-15] MEDS: Lactated Ringers 1,000 ML 999 ML IV (13:11)
--- OUTSIDE RECORDS SUMMARY | 2024-12-15 13:36 | XMS_ITS | Encounter Summary ---
Author Organization [employer] Address [address] [facility] [place] [address] Care Team Providers Care Manager English Name Role Phone Flora Santiago CREATIVE ENGAGEMENT DIRECTOR Primary Care Provider [phone] Sherin Hall RN Unavailable [phone] Juan Jose Deshpande MD Unavailable [phone] Michael Glass MD Unavailable [phone] Demetrius Austin MD Unavailable Harry Garcia MD Unavailable [phone] Jovany Feliciano MD Unavailable Kandi Panda PharmD Unavailable [phone] Angelica Saenz Unavailable Mao Palomino DDS Unavailable [phone] Encounter Details Date Type Department Care Team (Late st Contact Info) Description 05/25/2023 Abstract [facility] [address] [place] [address] Debi Zamora Social History Tobacco Use Types [...] Description 12/22/2024 9:30 AM EDT Medication Management [facility] [address] [place] [phone] Kandi Panda, PharmD [address] [place] [address] 12/24/2024 8:00 AM EDT Office Visit [facility] [address] [place] [phone] Dany, Angelica [address] [place] [address] 02/27/2025 1:00 PM EDT Office Visit [facility] [address] [place] [phone] Doug Fay MD [address] [place] [address] 03/02/2025 10:30 AM EDT Office Visit [facility] [address] [place] [address] Flora Santiago FNP [address] [place] [address] documented as of this encounter Procedures Procedure Name Priority Date/Time Associated Diagnosis Comments COLONOSCOPY Routine 03/17/2021 documented in this encounter Results * Colonoscopy (03/17/2021) Colonoscopy Normal Normal Narrative Debi Zamora - 03/17/2021 Repeat in 5 years tubular adenoma us Historical Provider HEALTH MAINTENANCE Final Result documented in this encounter Visit Diagnoses Not on filedocumented in this encounter Care Teams Manager English Relationship Specialty Start Date End Date Flora Santiago FNP [address] [place] [address] PCP - General Family Medicine 05/02/21 Sherin Hall, RN [address] [place] [address] Concentrator Operator Family Medicine 07/30/23 Juan Jose Deshpande MD [address] [place] [address] Nephrology 06/13/24 Michael Glass MD [address] [place] [address] [address] [place] [address] General Surgery 06/13/24 Demetrius Austin MD [address] [place] [address] Orthopaedic Surgery 06/13/24 Harry Garcia MD [address] [facility] [address] [place] [address] Gastroenterology 06/13/24 Jovany Feliciano MD [address] [address] Cardiology 06/13/24 Kandi Panda, Fredrick [address] [place] [phone] Pharmacist Internal Medicine 08/18/24 Angelica Saenz [address], [place] [phone] Dental Hygienist Dental Transmitter Engineer In Charge 08/20/24 Mao Palomino DDS [address], [place] [id number] Dentist Dental Transmitter Engineer In Charge 08/20/24 documented as of this encounter
[2024-12-15] MEDS: Diphth,Pertus(ACell),Tet Adult 0.5 ML SYRINGE IM (15:26)
[2024-12-15 17:02] VITALS: BP 134/74; PULSE 92; RESP 20; TEMP 37; O2SAT 97
[2024-12-15 18:13] VITALS: BP 134/74; PULSE 92; RESP 20; TEMP 37; O2SAT 97
== END 2024-12-15 18:14 | disposition home or self-care (01) ==
PROVIDERS: Emergency Provider Emergency Medicine; PCP Registered Nurse
DX: S06.9XAA Unspecified intracranial injury with loss of consciousness status unknown, initial encounter (principal); S01.81XA Laceration without foreign body of other part of head, initial encounter; R51.9 Headache, unspecified; M25.562 Pain in left knee; F10.129 Alcohol abuse with intoxication, unspecified; Y90.8 Blood alcohol level of 240 mg/100 ml or more; W01.10XA Fall on same level from slipping, tripping and stumbling with subsequent striking against unspecified object, initial encounter; Y93.01 Activity, walking, marching and hiking; Y92.9 Unspecified place or not applicable; Y99.8 Other external cause status; Z79.899 Other long term (current) drug therapy; Z51.81 Encounter for therapeutic drug level monitoring; Z23 Encounter for immunization
CPT/HCPCS: 36415; 70450; 73562; 80053; 80307; 85025; 90471; 90715; 96365; 99285; J3411; J7120

== ENCOUNTER → 2024-12-15 13:12 | Outpatient (BNV) | payer MEDICAID, SELFPAY | PROVIDERS: Emergency Provider Emergency Medicine; PCP Registered Nurse; Visit Provider Radiology Diagnostic Radiology | DX: S19.9XXA Unspecified injury of neck, initial encounter (principal); S09.90XA Unspecified injury of head, initial encounter; M25.551 Pain in right hip; W19.XXXA Unspecified fall, initial encounter | CPT/HCPCS: 70450; 72125; 73502 ==

== ENCOUNTER 2024-12-15 22:17 | Emergency (ER) | payer MEDICAID, SELFPAY ==
--- NOTE | ~2024-12-15 | CT_ITS ---
CLINICAL HISTORY: head trauma CT head without contrast Comparison: CT/SR - CT HEAD/BRAIN WO IV CON - 12/15/24 14:43 EDT Findings: No intra-axial mass, midline shift, hydrocephalus, or acute hemorrhage. Intracranial atherosclerosis. There is no sinus or mastoid fluid. The orbits are unremarkable. No skull fracture. IMPRESSION: 1. No acute intracranial findings. This document has been electronically signed by: Alina Chapa MD on 12/15/2024 23:58:29
--- NOTE | ~2024-12-15 | CT_ITS ---
CLINICAL HISTORY: neck trauma CT cervical spine without contrast Comparison: CT/SR - CT CERVICAL SPINE WO IV CON - 10/07/24 11:43 EDT Findings: Normal vertebral body alignment. Mild multilevel degenerative changes. No acute fractures or dislocations. No acute findings on limited view of the intracranial contents. Bilateral carotid atherosclerosis. Lung apices are clear. IMPRESSION: 1. No acute cervical spine injury. This document has been electronically signed by: Alina Chapa MD on 12/16/2024 00:01:38
--- NOTE | ~2024-12-15 | XR_ITS ---
CLINICAL HISTORY: pain and fall 3 view, pelvis and right hip Comparison: CT/SR - CT ABDOMEN PELVIS W IV CON - 10/07/24 11:43 EDT Findings: No acute fracture or dislocation. Vascular calcifications. IMPRESSION: No acute findings. This document has been electronically signed by: Alina Chapa MD on 12/15/2024 23:28:58
--- NOTE | 2024-12-15 22:25 | ED_ITS ---
HPI - Alcohol General Chief Complaint: Fall Stated Complaint: ETOH FALL Time Seen by Provider: 12/15/24 22:19 Source: patient, EMS and old records reviewed Mode of arrival: EMS Limitations: other (ETOH abuse) History of Present Illness ED Provider: JULIO CESAR CRUZ narrative: 59 yo male with PMH of MALKA, DM, SALGUERO, cirrhosis, HLD, HTN, hypoNa, CKD, ETOH use disorder who was found outside in yard after ETOH tonight. EMS was told patient was just DC from our ED was seen this afternoon and DC home. He is intoxicated and states he fell. He has old abrasions and contusions to forehead as well as healing abrasions. R hip + abrasion as well. The patient offers no complaints. It is unclear how long he was on the ground for. He has no complaints but he is very intoxicated. EMS was told he fell multiple times this weekend. MD complaint: alcohol intoxication (falls) Last drink: Just prior to admission Chronic alcohol use: Yes Previous visits for alcohol intoxication: Yes Recent trauma: Yes Associated symptoms: denies other symptoms Treatments prior to arrival: cervical collar Related Data Home Medications ?Medication ?Instructions ?Recorded ?Confirmed insulin degludec 100 unit/mL (3 20 unit subcut BEDTIME 05/26/20 07/31/24 mL) subcutaneous pen (Tresiba FlexTouch U-100 insulin) insulin lispro 100 unit/mL 1 sliding scale dose subcut TIDAC 05/26/20 07/31/24 subcutaneous pen (Humalog KwikPen (U-100) Insulin) cholecalciferol (vitamin D3) 50 50 mcg PO DAILY 01/01/23 07/31/24 mcg (2,000 unit) tablet empagliflozin 25 mg tablet 25 mg PO QAM 09/14/23 07/31/24 (Jardiance) blood sugar diagnostic (FreeStyle #10 ea 04/28/24 07/31/24 Lite Strips) flash glucose sensor (FreeStyle #1 ea 04/28/24 07/31/24 Bill 2 Sensor kit) lancets 33 gauge (TRUEplus Lancets) #100 ea 04/28/24 07/31/24 pen needle, diabetic 31 gauge x #1,200 ea 04/28/24 07/31/24 3/16 (Sure Comfort Pen Needle) lisinopril 10 mg tablet 10 mg PO DAILY 07/30/24 07/31/24 diclofenac sodium 1 % topical gel 2 g topical BID PRN 09/15/24 eplerenone 50 mg tablet (Inspra) 50 mg PO QAM 09/15/24 meloxicam 7.5 mg tablet 7.5 mg PO DAILY 09/15/24 folic acid 1 mg tablet 1 mg PO DAILY 10/20/24 vitamin B complex-folic acid 0.4 1 tab PO QAM 10/20/24 mg tablet (B Complex 1 (with folic acid)) Previous Rx's ?Medication ?Instructions ?Recorded rifaximin 550 mg tablet 550 mg PO TID 2 weeks #42 tabs 09/14/23 tadalafil 20 mg tablet (Cialis) 20 mg PO .PRN PRN sexual activity 12/31/23 90 days #45 tabs tadalafil 5 mg tablet (Cialis) 5 mg PO DAILY 90 days #90 tabs 12/31/23 cyclobenzaprine 5 mg tablet 5 mg PO TID PRN muscle spasm #10 03/20/24 tabs lidocaine 5 % topical patch 1 patch topical DAILY #15 ea 03/20/24 metoprolol succinate 25 mg capsule 25 mg PO DAILY #30 ea 07/17/24 sprinkle, ext. release 24 hr vitamin A 3,000 mcg (10,000 unit) 1 cap PO QPM #90 caps 08/18/24 capsule pantoprazole 40 mg tablet,delayed 40 mg PO DAILY #60 tabs 09/15/24 release alirocumab 75 mg/mL subcutaneous See Rx Instructions .Route 10/01/24 pen injector (Praluent Pen) .COMPLEX #2 mL oxycodone 5 mg tablet 5 mg PO Q6H PRN pain #20 tabs 10/23/24 zinc sulfate 50 mg zinc (220 mg) 50 mg PO QPM #90 caps 11/05/24 capsule Allergies Allergy/AdvReac Type Severity Reaction Status Date / Time shrimp Allergy Severe Difficulty Verified 12/15/24 22:39 Breathing atorvastatin [ATORVASTATIN] AdvReac Intermediate elevated Verified 12/15/24 22:39 LFTs Review of Systems 2 Review of Systems: ROS unable to be obtained due to ETOH intoxication PMFSH Past Medical History Attestation statement: The following information was validated with the patient. Source: old records reviewed Medical History Diabetes Back pain GERD (gastroesophageal reflux disease) Cirrhosis CAD (coronary artery disease) Palpitations Arthritis Fibromyalgia SALGUERO (nonalcoholic steatohepatitis) Fatty liver Depression Hyperlipidemia, unspecified Type 2 diabetes mellitus with unspecified complications Essential hypertension Atherosclerotic cardiovascular disease Surgical History History of umbilical hernia repair (05/23/24) History of abdominal paracentesis Hx of cholecystectomy History of umbilical hernia repair Hx of endoscopy History of colonoscopy History of ankle surgery Left inguinal hernia (05/04/23) Gallstone Family History Family History Father Diabetes Mother No problems noted. Social History Social History Household Members: Spouse Housing: House Are you a primary child care development specialist to a significant other at home: No Do you presently have visiting nurse or other home services: No Unable to assess alcohol history related to: Unknown Alcohol intake: current Alcohol intake frequency: 0-2 drinks per day Alcohol type: beer Comment: pt medicated Patient Tobacco Use Status: Current someday Tobacco user Tobacco use type: Cigar Smoked in Last 30 Days: No Use of substances other than those prescribed or required for medical reasons: No Advance Directives: No Advance Directives Information Provided: No Do you have a plan to hurt others: No Plan service: No Current occupational status: employed Current occupation: [employer] Physical Exam ED Vital Signs: Vital Signs - 24 hr 12/15/24 22:29 12/15/24 23:46 12/16/24 00:31 Temperature 98.1 F 98.0 F Pulse Rate 88 81 87 Respiratory Rate 16 21 H 18 Blood Pressure 136/82 130/75 123/71 Pulse Oximetry 93 94 96 Oxygen Delivery Method Room Air Room Air Room Air 12/16/24 03:10 12/16/24 05:15 Temperature 100.0 F 97.7 F Pulse Rate 91 89 Respiratory Rate 20 16 Blood Pressure 126/72 101/63 Pulse Oximetry 95 96 Oxygen Delivery Method Room Air Room Air BMI result Body Mass Index 24.4 Appearance: Appears intoxicated, confused, calm. Mild acute distress. Eyes: Pupils equal, round and reactive to light. ENT: Pharynx normal. Old abrasions and contusions to forehead, L eyebrow, bridge of nose, no newell or racoon sign Neck: Normal inspection. Neck supple. in collar CVS: Normal heart rate and rhythm. Pulses normal. Respiratory: No respiratory distress. Breath sounds normal. Abdomen: Soft and nontender. no ttp no trauma noted R hip: lateral superficial abrasion Skin: Skin warm and dry. Normal skin color. Normal skin turgor. Extremities: No lower extremity edema. No calf ttp Neuro: Oriented to self. No motor deficit. No sensory deficit. CN2-12 intact Medical Decision Making Medical Decision Making [facility] Narrative: 59 yo male with PMH of MALKA, DM, SALGUERO, cirrhosis, HLD, HTN, hypoNa, CKD, ETOH use disorder now here after repeat falls this weekend related to ETOH use - he was found again outside after ETOH use - he is confused and intoxicated. I am going to obtain basic labs, EKG, CT head/cspine, R hip film. I am waiting for family arrive to get more history from them as well. Just seen for same and PA home Differential Diagnosis Differential Diagnoses: The differential diagnosis associated with the presentation includes ICH, rhabod, ETOH use disorder, lyte abnormality Admission/Observation Consideration of admission/observation: Escalation of care including admission/observation considered physician observation started at 1249am pending clinical sobriety and reassesments in AM Time: 06:56 Date: 12/16/24 Provider: Starr Peralta DO Physician observation ended at 656am. He refuses detox, steady gait, clinically sober. Will follow up as an outpatient. Lab Data [facility] Lab Attestation statement: I reviewed the patient's lab results. 12/15/24 23:45 12/15/24 23:45 Labs: Lab Results 12/15/24 12/15/24 12/15/24 Range/Units 22:38 23:43 23:45 WBC 12.3 H (4.8-10.8) X10*3/uL RBC 5.18 (4.60-5.80) X10*6/uL Hgb 13.6 L (14.0-18.0) g/dl Hct 40.7 L (42.0-52.0) % MCV 78.6 L (80.0-98.0) fL MCH 26.3 L (27.0-33.0) pg MCHC 33.4 (31.0-36.0) g/dl RDW 13.9 (11.0-16.0) % Plt Count 235 (160-400) X10*3/uL MPV 9.6 (9.4-12.4) fL Immature Gran % (Auto) 0.6 H (0.0-0.4) % Neut % (Auto) 68.6 (45-73) % Lymph % (Auto) 22.0 (20-40) % [place] % (Auto) 7.5 (2-11) % Eos % (Auto) 0.7 (0-4) % Baso % (Auto) 0.6 (0-2) % Lymph # (Auto) 2.7 (1.2-4.9) X10*3/uL [place] # (Auto) 0.9 (0.1-1.2) X10*3/uL Eos # (Auto) 0.1 (0.0-0.4) X10*3/uL Baso # (Auto) 0.1 (0.0-0.2) X10*3/uL Abs Immat Gran (auto) 0.07 H (0.00-0.03) X10*3/uL Absolute Neuts (auto) 8.5 H (2.0-8.3) x10*3/uL Absolute Nucleated RBC 0.000 (0.0-0.012) X10*3/uL Nucleated RBC % (auto) 0.0 (0.0-0.2) /100WBC Sodium 141 (135-145) mmol/L Potassium 3.5 (3.3-5.1) mmol/L Chloride 103 (96-108) mmol/L Carbon Dioxide 21 L (22-29) mmol/L Anion Gap 20 (12-20) BUN 5 L (9-16) mg/dL Creatinine 0.61 (0.5-1.4) mg/dL Estim Creat Clear Calc 130.3 Estimated GFR > 60 POC Glucose 194 H (60-115) mg/dL Random Glucose 186 H (60-115) mg/dL Calcium 9.3 D (8.4-10.2) mg/dL Magnesium 1.8 (1.6-2.6) mg/dL Total Bilirubin 0.6 (0.0-1.0) mg/dL Direct Bilirubin 0.3 (0.0-0.5) mg/dL AST 57 H (5-37) U/L ALT 24 (0-40) U/L Alkaline Phosphatase 233 H (39-117) U/L Ammonia 50 (13-55) umol/L Total Creatine Kinase 170 (38-174) U/L Total Protein 7.6 (6.5-8.0) g/dL Albumin 4.0 (3.5-5.0) g/dL Urine Color Yellow Urine Appearance Clear Urine pH 6.5 (5.0-9.0) Ur Specific [place] <= 1.005 (1.005-1.025) Urine Protein Trace (Neg-Trace) mg/dL Urine Glucose (UA) >=1000 H (Negative) mg/dL Urine Ketones Negative (Negative) mg/dL Urine Blood Small (1+) H (Negative) Urine Nitrite Negative (Negative) Ur Leukocyte Esterase Negative (Negative) Urine RBC 0-2 (0-2) /HPF Urine WBC 0-5 (0-5) /HPF Ur Squamous Epith Cells 0-2 (0-2) /HPF Urine Bacteria None Seen (None Seen) Hyaline Casts 0-2 (0-2) /LPF Ethyl Alcohol 416 H* mg/dL Independent Interpretation I performed an independent interpretation of an: EKG, Plain X-Ray (no hip fx) and CT Scan (no trauma) Interpretation: Rate: 87 Rhythm: NSR [place]: normal Normal P waves. Normal JAQUI. Normal QRS complex. ST T wave : normal NO KEIRA qTC: 452 prior studies: no acute ischemia The study has been interpreted contemporaneously by me. . Radiology Impression Discussion of test interpretation with radiology: I have reviewed the radiologist's reading. Independent Historian Clinical information obtained from an independent historian. History obtained from or confirmed by: EMS External Record Review External record reviewed: Inpatient record and Outpatient record Discharge Plan Discharge Clinical Impression: Alcohol use Contusion of face Qualifiers: Encounter type: initial encounter Qualified Code(s): S00.83XA - Contusion of other part of head, initial encounter Patient Disposition: Home, Self-Care Instructions: Alcohol Use Disorder (ED), Facial Contusion (ED) Additional Instructions: Alcohol use disorder You were seen in the Emergency Department today for treatment of alcohol use disorder.? You may have been given medications to help with your withdrawal symptoms.? Please do not drink alcohol with them. This is very dangerous and can cause respiratory depression or other adverse reactions depending on the medication. If you would like to cut down or stop your alcohol use please consider calling our outpatient Addiction Treatment office:? [facility] (M-F 9a-5p) [address] ? You have also been given a list of treatment providers in the area that can assist as well.? If you experience seizures, vomiting blood, black stools, falls, severe headache, chest pain, fevers, trouble breathing, hallucinations or any other concerns you need to call 911 or seek immediate care. Please stay hydrated. Prescriptions: No Action vitamin A 3,000 mcg (10,000 unit) capsule 1 cap PO QPM Qty: 90 1RF Praluent Pen 75 mg/mL pen injector See Rx Instructions .ROUTE .COMPLEX Qty: 2 3RF Dose Instruction: INJECT 75 MG (1 PEN) SUBCUTANEOUSLY EVERY 2 WEEKS. ROTATE INJECTION SITES Rx Instructions: INJECT 75 MG (1 PEN) SUBCUTANEOUSLY EVERY 2 WEEKS. ROTATE INJECTION SITES zinc sulfate 50 mg zinc (220 mg) capsule 50 mg PO QPM Qty: 90 1RF metoprolol succinate 25 mg capsule,sprinkle,ER 24hr 25 mg PO DAILY Qty: 30 0RF lidocaine 5 % adhesive patch,medicated 1 patch topical DAILY Qty: 15 0RF Rx Instructions: leave on most painful area for up to 12 hrs cyclobenzaprine 5 mg tablet 5 mg PO TID PRN (Reason: muscle spasm) Qty: 10 0RF oxycodone 5 mg tablet 5 mg PO Q6H PRN (Reason: pain) Qty: 20 0RF Rx Instructions: Partial Fill upon patient request. insulin lispro [Humalog KwikPen Insulin] 100 unit/mL insulin pen 1 sliding scale dose subcut TIDAC Tresiba FlexTouch U-100 100 unit/mL (3 mL) insulin pen 20 unit subcut BEDTIME cholecalciferol (vitamin D3) 50 mcg (2,000 unit) tablet 50 mcg PO DAILY tadalafil [Cialis] 5 mg tablet 5 mg PO DAILY 90 Days Qty: 90 1RF Rx Instructions: [id number] [facility]33 Member [id number] tadalafil [Cialis] 20 mg tablet 20 mg PO .PRN PRN (Reason: sexual activity) 90 Days Qty: 45 0RF Rx Instructions: administer approximately 30min before sexual activity; do not use more than 1 dose per 24hrs [id number] [facility] [id number] Member [id number] meloxicam 7.5 mg tablet 7.5 mg PO DAILY eplerenone [Inspra] 50 mg tablet 50 mg PO QAM diclofenac sodium 1 % gel 2 g topical BID PRN pantoprazole 40 mg tablet,delayed release (DR/EC) 40 mg PO DAILY Qty: 60 1RF Jardiance 25 mg tablet 25 mg PO QAM rifaximin 550 mg tablet 550 mg PO TID 14 Days Qty: 42 0RF lisinopril 10 mg tablet 10 mg PO DAILY (DME) FreeStyle Bill 2 Sensor Kit See Rx Instructions .ROUTE Q2W Qty: 1 Rx Instructions: As directed (DME) lancets [TRUEplus Lancets] 33 gauge misc See Rx Instructions .ROUTE TID Qty: 100 Rx Instructions: As directed (DME) pen needle, diabetic [Sure Comfort Pen Needle] 31 gauge x 3/16 needle See Rx Instructions .ROUTE QID Qty: 1200 Rx Instructions: As directed (DME) FreeStyle Lite Strips Strip See Rx Instructions .ROUTE TID Qty: 10 Rx Instructions: As directed vitamin B complex-folic acid [B Complex 1 (with folic acid)] 0.4 mg tablet 1 tab PO QAM folic acid 1 mg tablet 1 mg PO DAILY Print Language: British
[2024-12-15 22:29] VITALS: BP 136/82; BP 164/98; PULSE 88; PULSE 99; RESP 16; TEMP 36.7; O2SAT 93; BMI 24.4
--- NOTE | 2024-12-15 22:34 | ECG_ITS ---
Test Reason : FALL Blood Pressure : */* mmHG Vent. Rate : 87 BPM Atrial Rate : 87 BPM P-R Int : 186 ms QRS Dur : 86 ms QT Int : 376 ms P-R-T Axes : 43 19 12 degrees QTcB Int : 452 ms Normal sinus rhythm Normal ECG When compared with ECG of 23-Oct-2024 15:02, No significant change was found Referred By: Starr Peralta Electronically Signed By: MIGUELITO FLYNN MD
--- NOTE | 2024-12-15 23:07 | PC.NURSE ---
pt with CT at this time delaying ekg and blood work.
[2024-12-15 23:46] VITALS: BP 130/75; PULSE 81; RESP 21; O2SAT 94
[2024-12-15 23:53] LABS: Glucose, Whole Blood 194 mg/dL (60-115)
[2024-12-15 23:57] LABS: Basophils Absolute Auto 0.1 X10*3/uL (0.0-0.2); Basophils Percent Auto 0.6 % (0-2); Eosinophils Absolute Auto 0.1 X10*3/uL (0.0-0.4); Eosinophils Percent Auto 0.7 % (0-4); Hematocrit 40.7 % (42.0-52.0); Hemoglobin 13.6 g/dl (14.0-18.0); Imm Gran Abs Auto 0.07 X10*3/uL (0.00-0.03); Imm Gran Pct Auto 0.6 % (0.0-0.4); Lymphocytes Absolute Auto 2.7 X10*3/uL (1.2-4.9); MANUAL DIFF FLAG NO; Mean Corpuscular HGB Conc 33.4 g/dl (31.0-36.0); Mean Corpuscular Hemoglobin 26.3 pg (27.0-33.0); Mean Corpuscular Volume 78.6 fL (80.0-98.0); Mean Platelet Volume 9.6 fL (9.4-12.4); Monocytes Absolute Auto 0.9 X10*3/uL (0.1-1.2); Monocytes Percent Auto 7.5 % (2-11); Neutrophils Absolute Auto 8.5 x10*3/uL (2.0-8.3); Neutrophils Percent Auto 68.6 % (45-73); Platelet Count 235 X10*3/uL (160-400); Red Blood Count 5.18 X10*6/uL (4.60-5.80); Red Cell Distribution Width 13.9 % (11.0-16.0); White Blood Count 12.3 X10*3/uL (4.8-10.8)
[2024-12-16 00:01] LABS: Ammonia 50 umol/L (13-55)
[2024-12-16 00:09] LABS: Anion Gap 20 (12-20)
[2024-12-16 00:31] VITALS: BP 123/71; PULSE 87; RESP 18; TEMP 36.7; O2SAT 96
[2024-12-16 00:32] LABS: Alanine Aminotransferase 24 U/L (0-40); Alkaline Phosphatase 233 U/L (39-117); Aspartate Amino Transferase 57 U/L (5-37); Bilirubin Direct 0.3 mg/dL (0.0-0.5); Bilirubin Total 0.6 mg/dL (0.0-1.0); Blood Urea Nitrogen 5 mg/dL (9-16); Calcium 9.3 mg/dL (8.4-10.2); Carbon Dioxide 21 mmol/L (22-29); Chloride 103 mmol/L (96-108); Creatinine Clr Calc Pharmacy 130.3; Estimated Glomerular Filt Rate > 60; Ethanol 416 mg/dL; Glucose Random 186 mg/dL (60-115); Magnesium 1.8 mg/dL (1.6-2.6); Potassium 3.5 mmol/L (3.3-5.1); Sodium 141 mmol/L (135-145); Total Protein 7.6 g/dL (6.5-8.0)
[2024-12-16 00:41] LABS: Appearance Urine Clear; Color Urine Yellow; Glucose Urine UA >=1000 mg/dL (Negative); Leukocyte Esterase Urine Negative (Negative); Nitrite Urine Negative (Negative); PH 6.5 (5.0-9.0); Specific Gravity - Urine <= 1.005 (1.005-1.025); UMIC TRIGGER UACC YES; Urine Blood Small (1+) (Negative); Urine Ketones Negative (Negative); Urine Protein Trace mg/dL (Neg-Trace)
[2024-12-16 00:48] LABS: Bacteria Urine None Seen (None Seen); Hyaline Casts Urine 0-2 /LPF (0-2); RBC Urine 0-2 /HPF (0-2); Squamous Epithelial Cell Urine 0-2 /HPF (0-2); WBC Urine 0-5 /HPF (0-5)
[2024-12-16 03:10] VITALS: BP 126/72; PULSE 91; RESP 20; TEMP 37.8; O2SAT 95
[2024-12-16 05:15] VITALS: BP 101/63; PULSE 89; RESP 16; TEMP 36.5; O2SAT 96
[2024-12-16 07:23] VITALS: BP 130/74; PULSE 94; RESP 14; TEMP 37.4; O2SAT 95
[2024-12-16 08:24] VITALS: BP 130/74; PULSE 94; RESP 14; TEMP 37.4; O2SAT 95
== END 2024-12-16 08:24 | disposition home or self-care (01) ==
PROVIDERS: Emergency Provider Emergency Medicine
DX: S00.83XA Contusion of other part of head, initial encounter (principal); F10.10 Alcohol abuse, uncomplicated; Y90.8 Blood alcohol level of 240 mg/100 ml or more; M54.2 Cervicalgia; R51.9 Headache, unspecified; R10.2 Pelvic and perineal pain; I10 Essential (primary) hypertension; X58.XXXA Exposure to other specified factors, initial encounter; Y93.9 Activity, unspecified; Y92.9 Unspecified place or not applicable; Y99.8 Other external cause status; Z79.899 Other long term (current) drug therapy
CPT/HCPCS: 36415; 70450; 72125; 73502; 80048; 80076; 80307; 81001; 82140; 82550; 82947; 83735; 85025; 93005; 99284; 99285

== ENCOUNTER → 2024-12-15 22:34 | Outpatient (BNV) | payer MEDICAID, SELFPAY | PROVIDERS: Emergency Provider Emergency Medicine; Visit Provider Internal Medicine Cardiovascular Disease | DX: Z13.6 Encounter for screening for cardiovascular disorders (principal) | CPT/HCPCS: 93010 ==

== ENCOUNTER 2024-12-19 09:40 | Outpatient (REF) | payer MEDICAID, SELFPAY ==
--- NOTE | ~2024-12-19 | XR_ITS ---
EXAMINATION: XR RIBS, RIGHT CLINICAL INFORMATION: PAIN COMPARISON: October 13, 2024 TECHNIQUE: 3 views of the right ribs were obtained. FINDINGS: Comminuted cortical disruption is with the malalignment involving the posterior aspect of the left third, fourth fifth sixth seventh and eighth ribs. No consolidation pleural effusion or pneumothorax. Cardiomediastinal silhouette size is normal. Multilevel thoracic spondylosis. Vascular clips right upper quadrant abdomen likely laparoscopic cholecystectomy XR/XR ribs RT min 3V w CXR1V IMPRESSION: Multiple comminuted minimally displaced rib fractures involving the posterior aspect of the ribs left upper hemithorax. No pneumothorax. Electronically signed by: Parish Colon MD 12/19/2024 10:10 AM EDT
--- OUTSIDE RECORDS SUMMARY | 2024-12-19 10:10 | XMS_ITS | Encounter Summary ---
Author Organization [facility] [employer] Address [address] [place] [address] Care Team Providers Care Paint Tester Name Role Phone Flora Santiago CASH REGISTER MECHANIC Primary Care Provider [phone] Sherin Hall RN Unavailable [phone] Juan Jose Deshpande MD Unavailable [phone] Michael Glass MD Unavailable [phone] Demetrius Austin MD Unavailable Harry Garcia MD Unavailable [phone] Jovany Feliciano MD Unavailable Kandi Panda PharmD Unavailable [phone] Angelica Saenz Unavailable Mao Palomino DDS Unavailable [phone] Encounter Details Date Type Department Care Team (Late st Contact Info) Description 05/25/2023 Abstract [facility] [address] [place] [address] Debi Zamora Social History Tobacco Use Types [...] Description 12/22/2024 9:30 AM EDT Medication Management [facility] [address] [place] [id number] Kandi Panda, PharmD [address] [place] [address] 12/24/2024 8:00 AM EDT Office Visit [facility] [address] [place] [phone] Adny, Angelica [address] [place] [address] 02/27/2025 1:00 PM EDT Office Visit [facility] [address] [place] [phone] Doug Fay MD [address] [place] [address] 03/02/2025 10:30 AM EDT Office Visit [facility] [address] [place] [address] Flora Santiago FNP [address] [place] [address] documented as of this encounter Procedures Procedure Name Priority Date/Time Associated Diagnosis Comments COLONOSCOPY Routine 03/17/2021 documented in this encounter Results * Colonoscopy (03/17/2021) Colonoscopy Normal Normal Narrative Debi Zamora - 03/17/2021 Repeat in 5 years tubular adenoma us Historical Provider HEALTH MAINTENANCE Final Result documented in this encounter Visit Diagnoses Not on filedocumented in this encounter Care Teams Paint Tester Relationship Specialty Start Date End Date Flora Santiago FNP [address] [place] [address] PCP - General Family Medicine 05/02/21 Sherin Hall, RN [address] [place] [address] Capacitor Inspector Family Medicine 07/30/23 Juan Jose Deshpande MD [address] [place] [address] Nephrology 06/13/24 Michael Glass MD [address] [place] [address] [address] [place] [address] General Surgery 06/13/24 Demetrius Austin MD [address] [place] [address] Orthopaedic Surgery 06/13/24 Harry Garcia MD [address] [place] [address] Gastroenterology 06/13/24 Jovany Feliciano MD [address] [address] Cardiology 06/13/24 Kandi Panda, Fredrick [address] [place] [phone] Pharmacist Internal Medicine 08/18/24 Angelica Saenz [address] [place], [place] [id number] Dental Hygienist Dental Director Of Cardiology 08/20/24 Mao Palomino DDS [address] [place], [place] [phone] Dentist Dental Director Of Cardiology 08/20/24 documented as of this encounter
== END 2024-12-19 09:41 | disposition home or self-care (01) ==
LOC: HO.HHCX 09:40
PROVIDERS: Visit Provider Internal Medicine
DX: R07.81 Pleurodynia (principal)
CPT/HCPCS: 71101

== ENCOUNTER → 2024-12-19 09:42 | Outpatient (BNV) | payer MEDICAID, SELFPAY | PROVIDERS: Visit Provider Radiology Diagnostic Radiology | DX: S22.31XA Fracture of one rib, right side, initial encounter for closed fracture (principal) | CPT/HCPCS: 71101 ==

== ENCOUNTER 2025-01-01 15:34 | Outpatient (AMB) | payer MEDICAID, SELFPAY ==
[2025-01-01 15:35] VITALS: BP 112/66; PULSE 87; O2SAT 96; BMI 28.5
--- NOTE | 2025-01-01 15:35 | HO.NEPHOV_ITS ---
Vital Signs 01/01/25 15:35 Height 5 ft 7 in Weight 182 lb BMI 28.5 BP 112/66 Blood Pressure Location Lt brachial Position Sitting Pulse 87 Pulse Source Pulse Oximeter Pulse Oximetry (%) 96 Oxygen Delivery Method Room Air Intake Visit Reasons: FU/ Conf Accompanied by: Self / Same As Patient Allergies shrimp Allergy (Severe, Verified 01/01/25 15:37) Difficulty Breathing atorvastatin (ATORVASTATIN) Adverse Reaction (Intermediate, Verified 01/01/25 15:37) elevated LFTs Medication List - Last Reconciled 01/01/25 by Juan Jose Deshpande MD acamprosate 666 mg PO BID alirocumab (Praluent Pen) INJECT 75 MG (1 PEN) SUBCUTANEOUSLY EVERY 2 WEEKS. ROTATE INJECTION SITES blood sugar diagnostic (FreeStyle Lite Strips) As directed cholecalciferol (vitamin D3) 50 mcg PO DAILY cyclobenzaprine 5 mg PO TID PRN diclofenac sodium 1% 2 grams topical BID PRN empagliflozin (Jardiance) 25 mg PO QAM eplerenone (Inspra) 50 mg PO QAM flash glucose sensor (FreeStyle Bill 2 Sensor kit) As directed folic acid 1 mg PO DAILY insulin degludec (Tresiba FlexTouch U-100 insulin) 20 units subcut BEDTIME insulin lispro (Humalog KwikPen (U-100) Insulin) 1 sliding scale dose subcut TIDAC lancets (TRUEplus Lancets) As directed lidocaine 5% 1 patch topical DAILY meloxicam 7.5 mg PO DAILY PRN metoprolol succinate ER 25 mg PO DAILY oxycodone 5 mg PO Q6H PRN pantoprazole 40 mg PO QAM pen needle, diabetic (Sure Comfort Pen Needle) As directed rifaximin 550 mg PO TID 2 weeks tadalafil (Cialis) 20 mg PO .PRN PRN 90 days tadalafil (Cialis) 5 mg PO DAILY 90 days vitamin A 1 cap PO QPM vitamin B complex-folic acid 0.4 mg (B Complex 1 (with folic acid)) 1 tab PO QAM zinc sulfate 50 mg PO QPM HPI Comments Details: Steven is a very pleasant man with a h/o arthritis, ACD, CAD, depression, hypertension, fatty liver, fibromyalgia, hyperlipidemia, non alcoholic steatohepatitis, and type 2 diabetes. Essentially normal renal function Here for follow up 01/01/2024. He has been experiencing vague low back pain. Did not take any NSAIDs. Recent serum creatinine was 1.4 which is a new change. His blood pressure has been running low. He is on eplerenone, furosemide, lisinopril. During last visit lisinopril was decreased from 40 mg down to 20 mg due to low blood pressure. Despite this blood pressure remains low 01/28/24;After stopping Lisinopril and LAsix, Creatinine has improved;No edema 04/01/24 ;Doing better;NO edema 05/27/24. Recently had hernia surgery. Today blood pressure is low. He has no complaints 06/09/24 ;Lisinopril on hold due to low BP;Blood sugar is low and had a fall yesterday 07/31/24;After holding Lisnopril, BP shot up ;Back on Lisinopril 10 mg 01/01/25 The patient is a 59-year-old male presenting with hypertension management concerns. He reported stopping his antihypertensive medication, lisinopril, two days ago due to experiencing difficulty breathing. Approximately a week and a half ago, he experienced dizziness and a fall, which he attributes to low blood pressure. The patient also reports significant weight loss, which he cannot explain, and mentions not having an appetite during the day. He drinks a lot of water with lemon, which he believes helps. The patient admits to alcohol consumption, acknowledging it is not beneficial for his health. [facility] Medical History Diabetes Back pain GERD (gastroesophageal reflux disease) Cirrhosis CAD (coronary artery disease) Palpitations Arthritis Fibromyalgia SALGUERO (nonalcoholic steatohepatitis) Fatty liver Depression Hyperlipidemia, unspecified Type 2 diabetes mellitus with unspecified complications Essential hypertension Atherosclerotic cardiovascular disease Surgical History History of umbilical hernia repair (05/23/24) History of abdominal paracentesis Hx of cholecystectomy History of umbilical hernia repair Hx of endoscopy History of colonoscopy History of ankle surgery Left inguinal hernia (05/04/23) Gallstone Family History Father Diabetes Mother No problems noted. Social History Household Members: Spouse Housing: House Are you a primary technical healthcare consultant to a significant other at home: No Do you presently have visiting nurse or other home services: No Unable to assess alcohol history related to: Unknown Alcohol intake: current Alcohol intake frequency: 0-2 drinks per day Alcohol type: beer Comment: pt medicated Patient Tobacco Use Status: Current someday Tobacco user Tobacco use type: Cigar service: No Current occupational status: employed Current occupation: [employer] Physical Exam Vital Signs: Last Vital Signs Pulse 87 01/01/25 15:35 BP 112/66 01/01/25 15:35 Pulse Ox 96 01/01/25 15:35 Oxygen Delivery Method Room Air 01/01/25 15:35 BMI result Body Mass Index 28.5 Comfortable Neck supple no JVD. Lungs entry equal no rales. Heart S1-S2 heard no gallop or rub. Abdomen soft nontender. Neuro alert awake oriented. No asterixis. Extremities no edema. Results Reviewed Nephrology Results: Hgb, (14.0-18.0) 13.6 g/dl L 12/15/24 WBC, (4.8-10.8) 12.3 X10*3/uL H 12/15/24 Plt Count, (160-400) 235 X10*3/uL 12/15/24 Sodium, (135-145) 141 mmol/L 12/15/24 Potassium, (3.3-5.1) 3.5 mmol/L 12/15/24 Chloride, (96-108) 103 mmol/L 12/15/24 Carbon Dioxide, (22-29) 21 mmol/L L 12/15/24 BUN, (9-16) 5 mg/dL L 12/15/24 Creatinine, (0.5-1.4) 0.61 mg/dL 12/15/24 Calcium, (8.4-10.2) 9.3 mg/dL Δ 12/15/24 Urine Protein, (Neg-Trace) Trace mg/dL 12/15/24 Urine Creatinine 38.07 mg/dL 12/09/24 Assessment & Plan Assessment & Plan (1) Hematuria: Code(s): R31.9 - Hematuria, unspecified Category: Medical (2) Essential hypertension: Code(s): I10 - Essential (primary) hypertension Category: Medical (3) Proteinuria: Code(s): R80.9 - Proteinuria, unspecified Category: Medical (4) Hyponatremia: Code(s): E87.1 - Hypo-osmolality and hyponatremia Category: Medical (5) CKD stage 3a, GFR 45-59 ml/min: Code(s): N18.31 - Chronic kidney disease, stage 3a Category: Medical Plan Middle aged man with Essentially normal renal function in a setting of DM and N OTONIEL Minimal proteinuria SPEP revealed elevated beta 2 microglobulin. Serum immunofixation -Faint igA elevation Renal function stable Microhematuria - painless'; follow-up with Urology Blood pressure well controlled without medication Recommend: Watch BP for now Maintain BP < 130/80 Avoid Hypotension Restrict PO water intake due to hyponatremia Agree with current meds including SGLT-2 inhibitors - Glycosuria due to SGLT-2 inhibitor DM Blood sugar with wide fluctuation Defer to PCP Repeat serum immunefixation and urine - No MCGP Encouraged to limit alcohol intake Coding Level of Care Code Est Pt Level 4 (99647) Diagnoses Hematuria R31.9 Essential hypertension I10 Proteinuria R80.9 Hyponatremia E87.1 CKD stage 3a, GFR 45-59 ml/min N18.31
--- OUTSIDE RECORDS SUMMARY | 2025-01-01 19:15 | XMS_ITS | Encounter Summary ---
Author Organization [employer] Address [address] [facility] [address] [place] [address] Care Team Providers Care Fire Hose Curer Name Role Phone Flora Santiago S[employer] DEVELOPER Primary Care Provider [phone] Sherin Hall RN Unavailable [phone] Juan Jose Deshpande MD Unavailable [phone] Michael Glass MD Unavailable [phone] Demetrius Austin MD Unavailable Harry Garcia MD Unavailable [phone] Jovany Feliciano MD Unavailable Kandi Panda PharmD Unavailable [phone] Angelica Saenz Unavailable Mao Palomino DDS Unavailable [phone] Encounter Details Date Type Department Care Team (Late st Contact Info) Description 05/25/2023 Abstract [facility] [address] [place] [address] Debi Zamora Social History Tobacco Use Types [...] Care Team (Late st Contact Info) Description 02/27/2025 1:00 PM EDT Office Visit [facility] [address] [place] [id number] Doug Fay MD [address] [place] [address] 03/02/2025 10:30 AM EDT Office Visit [facility] [address] [place] [address] Flora Santiago FNP [address] [place] [address] 04/13/2025 3:30 PM EDT Medication Management [facility] [address] [place] [address] Kandi Panda, RobertD [address] [place] [address] documented as of this encounter Procedures Procedure Name Priority Date/Time Associated Diagnosis Comments COLONOSCOPY Routine 03/17/2021 documented in this encounter Results * Colonoscopy (03/17/2021) Colonoscopy Normal Normal Narrative Debi Zamora - 03/17/2021 Repeat in 5 years tubular adenoma us Historical Provider HEALTH MAINTENANCE Final Result documented in this encounter Visit Diagnoses Not on filedocumented in this encounter Care Teams Fire Hose Curer Relationship Specialty Start Date End Date Flora Santiago FNP [address] [place] [address] PCP - General Family Medicine 05/02/21 Sherin Hall, RN [address] [place] [address] Geoscience Specialist Family Medicine 07/30/23 Juan Jose Deshpande MD [address] [place] [address] Nephrology 06/13/24 Michael Glass MD [address] [place] [address] [address] [place] [address] General Surgery 06/13/24 Demetrius Austin MD [address] [place] [address] Orthopaedic Surgery 06/13/24 Harry Garcia MD [address] [place] [address] [address] [place] [address] Gastroenterology 06/13/24 Jovany Feliciano MD [address] [place] [address] [address] [place] [address] Cardiology 06/13/24 Kandi Panda PharmD [address] [place] [address] Pharmacist Internal Medicine 08/18/24 Angelica Saenz [address] [place] [address] Dental Hygienist Dental Taxation Inspector 08/20/24 Mao Palomino DDS [address] [place] [id number] Dentist Dental Taxation Inspector 08/20/24 documented as of this encounter
== END 2025-01-01 15:45 | disposition home or self-care (01) ==
LOC: HO.HKA 15:34
PROVIDERS: Visit Provider Internal Medicine Hypertension Specialist
DX: R31.9 Hematuria, unspecified (principal); I10 Essential (primary) hypertension; R80.9 Proteinuria, unspecified; E87.1 Hypo-osmolality and hyponatremia; N18.31 Chronic kidney disease, stage 3a
CPT/HCPCS: 99214

== ENCOUNTER → 2025-01-01 15:34 | Outpatient (BNVA) | payer MEDICAID, SELFPAY | PROVIDERS: Visit Provider Internal Medicine Hypertension Specialist | DX: N18.31 Chronic kidney disease, stage 3a (principal); R31.9 Hematuria, unspecified; I10 Essential (primary) hypertension; R80.9 Proteinuria, unspecified; E87.1 Hypo-osmolality and hyponatremia | CPT/HCPCS: 99212 ==

== ENCOUNTER 2025-04-27 09:26 | Outpatient (AMB) | payer MEDICAID, SELFPAY ==
--- NOTE | 2025-04-27 09:27 | MHC.OFFVIS ---
Vital Signs 04/27/25 09:28 Height 5 ft 7 in Weight 182 lb 15.739 oz BMI 28.7 BP 132/63 Blood Pressure Location Lt brachial Position Sitting Pulse 84 Intake Visit Reasons: 6m Cirrhosis Allergies shrimp Allergy (Severe, Verified 04/27/25 09:28) Difficulty Breathing atorvastatin (ATORVASTATIN) Adverse Reaction (Intermediate, Verified 04/27/25 09:28) elevated LFTs HPI HPI 6m Cirrhosis: Details: 60 yr old m here for alcohol related cirrhosis f/u (MELD Na--8) RECAP: index visit 10/2019 He did not know why he was referred to liver clinic!! he c/o disocmfort in RUQ, on daily basis he takes gas x and it doens;t help he has nausea, no vomiting but regurgitation appetie is poor, weight is going down, he is scared by that 230# to 170# he also has burning sensation in the stomahc as well denies diarrhea or constipation no dysphagia occ alcohol intake 2-3 beers every 3 weeks no drug use He was admitted 12/2022 with RUQ pain He had Surgical assessment and MRI which did not reveal and gallstones or other biliary path hep c ab pos, but viral load neg 2010 US: 05/2019--diffuse steatosis colonoscopy ?1 yr ago with pleet and nml per his report. I ordered EGD and CT CT--few small renal stones, no acute process EGD: Streaky erosive esophagitis at GEJ, LA grade C He saw cardiology and dx with CAD, did well on stress test, ECHo was ok--medical management US 08/2020 with chronic liver lesion, unchanged, fatty liver, no gallstones Due to ongoing sx of epigastric pain, with gas and bloating, nausea I ordered EGD/colonoscopy 03/2021 Had severe erosive esophagitis, LA grade D, TA removed PPI was increased to 40 mg BID GES also done 02/2021-- no gastroparesis, possible rapid emptying by 2 hrs only 18% left US 04/28 : fatty liver, indeterminate liver lesion, sludge US: 05/29 GB thickening patient had cholecystectomy and umbilical hernia repair 01/2023--having issues with ascotes since then due to decompensation he had CTA 08/02 with 1 cm lesion seen in the liver MRI was done and no HCC< hemangioma noted INTERIM: He went back to drinking alcohol, now in rehab he had shingles resolved but has burning pain and tenderness --started gabapentin no abdominal swelling no nausea or vomiting no confusion, memory issues EXAM: GENERAL: The patient is relaxed, VITAL SIGNS:see workflow HEENT: Nonicteric sclerae, PERRLA, EOMI. Oropharynx clear. Moist mucous membranes. Conjunctivae appear well perfused. No thyroid mass. CHEST: Chest wall is nontender. HEART: Regular rate and rhythm -ESM 3/6 over precordium LUNGS: Clear to auscultation bilaterally. ABDOMEN: Soft, positive bowel sounds,distended abdo, no fluid wave -tender left flank area, no rash SKIN: No rash, no excessive bruising, petechiae, or purpura. NEUROLOGIC: Cranial nerves II-XII intact without motor/sensory deficit. psych--nml Assessments 1. cirrhosis, decompensated now compensated without ascites or HE, CP score is 5, MRI without HCC PLAN 1/ cont PPI for GERD 2/ strongly advised to avoid alcohol can use black coffee, green tea- 3/ egd at future date 4/ HCC screening --US now 5/ can use tyloenol but < 2 g 6/ advised again on alcohol abstinence PFSH Medical History Diabetes Back pain GERD (gastroesophageal reflux disease) Cirrhosis CAD (coronary artery disease) Palpitations Arthritis Fibromyalgia SALGUERO (nonalcoholic steatohepatitis) Fatty liver Depression Hyperlipidemia, unspecified Type 2 diabetes mellitus with unspecified complications Essential hypertension Atherosclerotic cardiovascular disease Surgical History History of umbilical hernia repair (05/23/24) History of abdominal paracentesis Hx of cholecystectomy History of umbilical hernia repair Hx of endoscopy History of colonoscopy History of ankle surgery Left inguinal hernia (05/04/23) Gallstone Family History Father Diabetes Mother No problems noted. Social History Household Members: Spouse Housing: House Are you a primary lawn care specialist to a significant other at home: No Do you presently have visiting nurse or other home services: No Alcohol intake: current Alcohol intake frequency: 0-2 drinks per day Alcohol type: beer Comment: pt medicated Patient Tobacco Use Status: Current someday Tobacco user Tobacco use type: Cigar service: No Current occupational status: employed Current occupation: [employer] Physical Exam Vital Signs: Last Vital Signs Pulse 84 04/27/25 09:28 BP 132/63 04/27/25 09:28 BMI result Body Mass Index 28.7 Assessment & Plan Assessment & Plan (1) Cirrhosis: Code(s): K74.60 - Unspecified cirrhosis of liver Category: Medical Qualifiers: Ascites presence: with ascites Plan: as above Orders: Orders US abdomen [place] w elastography Today K74.69 - Other cirrhosis of liver, K75.81 - Nonalcoholic steatohepatitis (SALGUERO) Coding Level of Care Code Est Pt Level 4 (73969) Diagnoses Cirrhosis K74.60 Ascites presence: with ascites
[2025-04-27 09:28] VITALS: BP 132/63; PULSE 84; BMI 28.7
== END 2025-04-27 10:07 | disposition home or self-care (01) ==
LOC: HO.HGI 09:26
PROVIDERS: PCP Registered Nurse; Visit Provider Internal Medicine Gastroenterology
DX: K74.60 Unspecified cirrhosis of liver (principal)
CPT/HCPCS: 99214

== ENCOUNTER → 2025-04-27 09:26 | Outpatient (BNVA) | payer MEDICAID, SELFPAY | PROVIDERS: PCP Registered Nurse; Visit Provider Internal Medicine Gastroenterology | DX: K74.60 Unspecified cirrhosis of liver (principal); K75.81 Nonalcoholic steatohepatitis (NASH) | CPT/HCPCS: 99212 ==

== ENCOUNTER 2025-05-08 04:30 | Emergency (ER) | payer MEDICAID, SELFPAY ==
--- NOTE | 2025-05-08 | ECG_ITS ---
Test Reason : FALL Blood Pressure : */* mmHG Vent. Rate : 102 BPM Atrial Rate : 102 BPM P-R Int : 152 ms QRS Dur : 72 ms QT Int : 342 ms P-R-T Axes : 0 4 8 degrees QTcB Int : 445 ms Sinus tachycardia Otherwise normal ECG When compared with ECG of 15-Dec-2024 23:37, No significant change was found Referred By: Generic ED Physician Electronically Signed By: MARCUS LOPES
--- NOTE | ~2025-05-08 | CT_ITS ---
CLINICAL HISTORY: etoh and fall CT head without contrast Comparison: CT/SR - CT HEAD/BRAIN WO IV CON - 12/15/24 22:[address]/[place]/SR - CT HEAD/BRAIN WO IV CON - 10/07/24 11:43 EDT Findings: No intra-axial mass, midline shift, hydrocephalus, or acute hemorrhage. Mild periventricular white matter hypodensities are nonspecific though likely reflect changes of age-related microangiopathic etiology. The visualized paranasal sinuses and mastoid air cells are normal. The orbits are within normal limits. There is no acute fracture. IMPRESSION: No acute intracranial abnormality. This document has been electronically signed by: Roney De Dios MD on 05/08/2025 07:13:20
--- NOTE | ~2025-05-08 | CT_ITS ---
CLINICAL HISTORY: fall, etoh CT cervical spine without contrast Comparison: CT/SR - CT CERVICAL SPINE WO IV CON - 12/15/24 22:[address]/SR - CT CERVICAL SPINE WO IV CON - 10/07/24 11:43 EDT Findings: Vertebral alignment is within normal limits. Multilevel degenerative changes are stable from prior study. No acute fractures or dislocations. Visualized intracranial contents are unremarkable. Soft tissues of the neck are normal. Lung apices are clear. IMPRESSION: No acute cervical spine findings. This document has been electronically signed by: Roney De Dios MD on 05/08/2025 07:27:39
[2025-05-08 04:35] VITALS: BP 160/100; PULSE 110; O2SAT 92; BMI 29.6
[2025-05-08 04:40] VITALS: BP 147/81; PULSE 103; RESP 14; TEMP 36.6; O2SAT 96
[2025-05-08 04:51] LABS: Hematocrit 43.0 % (42.0-52.0); Hemoglobin 13.6 g/dl (14.0-18.0); Imm Gran Abs Auto 0.02 X10*3/uL (0.00-0.03); Imm Gran Pct Auto 0.2 % (0.0-0.4); Lymphocytes Absolute Auto 2.6 X10*3/uL (1.2-4.9); MANUAL DIFF FLAG NO; Mean Corpuscular HGB Conc 31.6 g/dl (31.0-36.0); Mean Corpuscular Hemoglobin 24.5 pg (27.0-33.0); Mean Corpuscular Volume 77.3 fL (80.0-98.0); NRBC Abs Auto 0.000 X10*3/uL (0.0-0.012); NRBC Pct Auto 0.0 /100WBC (0.0-0.2); Platelet Count 184 X10*3/uL (160-400); Red Blood Count 5.56 X10*6/uL (4.60-5.80); White Blood Count 8.7 X10*3/uL (4.8-10.8)
[2025-05-08 04:59] LABS: INTERNATIONAL NORM RATIO 1.2 (0.9-1.1); Prothrombin Time 13.5 SEC (10.9-12.4)
--- NOTE | 2025-05-08 05:00 | ED_ITS ---
HPI - Fall General Chief Complaint: Fall Stated Complaint: FALL/ETOH Time Seen by Provider: 05/08/25 04:51 Source: patient and EMS Mode of arrival: EMS Limitations: no limitations History of Present Illness ED Provider: Dr. Suyapa Foster HPI Narrative: Patient comes to the emergency room complaining of a fall. Patient states that earlier today, he was in his own house, patient was walking tripped and fell. Patient complaining of a laceration to the medial aspect of the right eyebrow. Patient admits that he had ?couple of beers? patient states that he has no pain, no headache. Related Data Home Medications ?Medication ?Instructions ?Recorded ?Confirmed insulin degludec 100 unit/mL (3 20 unit subcut BEDTIME 05/26/20 01/01/25 mL) subcutaneous pen (Tresiba FlexTouch U-100 insulin) insulin lispro 100 unit/mL 1 sliding scale dose subcut TIDAC 05/26/20 01/01/25 subcutaneous pen (Humalog KwikPen (U-100) Insulin) cholecalciferol (vitamin D3) 50 50 mcg PO DAILY 01/01/25 mcg (2,000 unit) tablet empagliflozin 25 mg tablet 25 mg PO QAM 09/14/2301/01 (Jardiance) blood sugar diagnostic (FreeStyle #10 ea 04/28/2412/08 Lite Strips) flash glucose sensor (FreeStyle #1 ea 04/28/24 5 Bill 2 Sensor kit) lancets 33 gauge (TRUEplus Lancets) #100 ea 04/28/24 0 01/01/25 pen needle, diabetic 31 gauge x #1,200 ea 04/28/24 3/16 (Sure Comfort Pen Needle) diclofenac sodium 1 % topical gel 2 g topical BID PRN 09/15/24 01/01/25 eplerenone 50 mg tablet (Inspra) 50 mg PO QAM 09/15/24 01/01/25 folic acid 1 mg tablet 1 mg PO DAILY 10/20/2401/01 vitamin B complex-folic acid 0.4 1 tab PO QAM 10/20/24 01/01/25 mg tablet (B Complex 1 (with folic acid)) acamprosate 333 mg tablet,delayed 666 mg PO BID 01/01/25 release insulin glargine 100 unit/mL (3 25 unit subcut BEDTIME 04/27/25 mL) subcutaneous pen (Lantus Solostar U-100 Insulin) Previous Rx's ?Medication ?Instructions ?Recorded rifaximin 550 mg tablet 550 mg PO TID 2 weeks #42 ta bs 09/14/23 cyclobenzaprine 5 mg tablet 5 mg PO TID PRN muscle spa sm #10 03/20/24 tabs zinc sulfate 50 mg zinc (220 mg) 50 mg PO QPM #90 caps 11/05/24 capsule pantoprazole 40 mg tablet,delayed 40 mg PO QAM #60 tab s 12/24/24 release alirocumab 75 mg/mL subcutaneous See Rx Instructions . Route 01/19/25 pen injector (Praluent Pen) .COMPLEX #2 mL vitamin A 3,000 mcg (10,000 unit) 1 cap PO QPM #90 cap s 02/19/25 capsule Allergies Allergy/AdvReac Type Severity Reaction Status Date / Time shrimp Allergy Severe Difficulty Verified 05/08/25 04:50 Breathing atorvastatin (ATORVASTATIN) AdvReac Intermediate elevated Verified 05/08/25 04:50 LFTs Review of Systems 2 Review of Systems: Constitutional : No Weight loss, No Fever, No Chills, No Night Sweats, No Fatigue, No Malaise ENT/Mouth : No Hearing loss, No Ear Pain, No Nasal Congestion, No Sinus Pain, No Hoarseness, No sore throat, No Rhinorrhea, No Swallowing Difficulty Eyes: No Eye Pain, No Swelling, No Redness, No Foreign Body, No Discharge, No Vision Changes Cardiovascular : No Chest Pain, No SOB, No Dyspnea on Exertion, No Orthopnea, No Edema, No Palpitations Respiratory : No Cough, No Sputum, No Wheezing, No Smoke Exposure, No Dyspnea Gastrointestinal : No Nausea, No Vomiting, No Diarrhea, No Constipation, No abdominal Pain, No Hematochezia, No Melena Genitourinary : no irregular bleeding, No Dysuria, No Urinary Frequency, No Hematuria, No Urinary Incontinence, No Urgency, No Flank Pain, No Urinary Flow Changes, No Hesitancy Musculoskeletal : No joint pain, No Myalgias, No Joint Swelling Skin : Complaining of a small laceration to the medial aspect of the right eyebrow No Skin Lesions, No rash Neuro : No Weakness, No Numbness, No Paresthesias, No Loss of Consciousness, No Dizziness, No Headache Psych : No Anxiety/Panic, No Depression, No SI/HI/AH/VH, admits to drinking alcohol, Heme/Lymph: No Bruising, No Bleeding,No Lymphadenopathy Endocrine : No Polyuria, No Polydipsia, No Temperature Intolerance [facility] Past Medical History Medical History History of abdominal paracentesis Diabetes Back pain GERD (gastroesophageal reflux disease) Cirrhosis CAD (coronary artery disease) Palpitations Arthritis Fibromyalgia SALGUERO (nonalcoholic steatohepatitis) Fatty liver Depression Hyperlipidemia, unspecified Type 2 diabetes mellitus with unspecified complications Essential hypertension Atherosclerotic cardiovascular disease Surgical History History of umbilical hernia repair (05/23/24) History of abdominal paracentesis Hx of cholecystectomy History of umbilical hernia repair Hx of endoscopy History of colonoscopy History of ankle surgery Left inguinal hernia (05/04/23) Gallstone Family History Family History Father Diabetes Mother No problems noted. Social History Social History Household Members: Spouse Housing: House Are you a primary transitions rn care coordinator to a significant other at home: No Do you presently have visiting nurse or other home services: No Alcohol intake: current Alcohol intake frequency: 0-2 drinks per day Alcohol type: beer Comment: pt medicated Patient Tobacco Use Status: Current someday Tobacco user Tobacco use type: Cigar Smoked in Last 30 Days: No Use of substances other than those prescribed or required for medical reasons: No Advance Directives: No Advance Directives Information Provided: Yes service: No Current occupational status: employed Current occupation: [employer] Physical Exam 2 Vital Signs: Vital Signs: Last Vital Signs Temp 98.3 F 05/08/25 06:38 Pulse 97 05/08/25 06:38 Resp 18 05/08/25 06:38 BP 127/71 05/08/25 06:38 Pulse Ox 96 05/08/25 06:38 O2 Del Method Room Air 05/08/25 06:38 BMI result Body Mass Index 29.6 Course Course Course Narrative: Patient's labs, head CT and cervical spine CT pending. I discussed with the patient that he has a laceration to the eyebrow. I recommended stitches. However, patient requested glue. Patient's wound was cleaned and Dermabond was applied According to EMS: The patient takes blood thinners. However, it was confirmed with the patient and his that he has never been on blood thinners Reevaluation(s) Reevaluation #1: 8:56 AM 05/08/2025 (Dr. Daniel Samano): Patient re-evaluated, imaging CT brain CT cervical spine negative, he is clinically sober we will be discharging Patient has history of numbness and tingling both hands, he either time of waking up states that he is having numbness and tingling both hands I re- evaluated him, he has been laying in the same position with flexed elbows likely degree of peripheral neuropathy exacerbated, there is no evidence for compartment syndrome, radial ulnar pulses +2 bilaterally no deformities no injuries and specifically injuries to the brain and cervical spine, I told him to make sure he starts moving his hands of the blood flow Time: 08:56 Medical Decision Making Medical Decision Making [facility] Narrative: My interpretation of labs: No significant abnormality in patient's hematology or chemistry., chronically elevated AST and alk phos, no abdominal pain. Normal troponin. Toxicology positive for EtOH 378. Patient's head CT and cervical spine CT radiology report pending. My interpretation of CT scan of the head and cervical spine, no acute injury. Patient states that he has not headache, no neck pain. Patient has ETOH level is elevated. Patient's at bedside who is willing to take him home. Radiology report: No intracranial abnormality Differential Diagnosis Differential Diagnoses: The differential diagnosis associated with the presentation includes (Intracranial alcohol intoxication, lacerations, contusion, concussion) Admission/Observation Consideration of admission/observation: Escalation of care including admission/observation considered (Given patient's presentation and history of alcohol intake, observation was considered) Lab Data [facility] Lab Attestation statement: I reviewed the patient's lab results. 05/08/25 04:46 05/08/25 04:46 Labs: Lab Results 05/08/25 Range/Units 04:46 WBC 8.7 (4.8-10.8) X10*3/uL RBC 5.56 (4.60-5.80) X10*6/uL Hgb 13.6 L (14.0-18.0) g/dl Hct 43.0 (42.0-52.0) % MCV 77.3 L (80.0-98.0) fL MCH 24.5 L (27.0-33.0) pg MCHC 31.6 (31.0-36.0) g/dl RDW 13.7 (11.0-16.0) % Plt Count 184 (160-400) X10*3/uL MPV 9.1 L (9.4-12.4) fL Immature Gran % (Auto) 0.2 (0.0-0.4) % Neut % (Auto) 63.1 (45-73) % Lymph % (Auto) 30.2 (20-40) % Stanton % (Auto) 4.9 (2-11) % Eos % (Auto) 1.3 (0-4) % Baso % (Auto) 0.3 (0-2) % Lymph # (Auto) 2.6 (1.2-4.9) X10*3/uL Stanton # (Auto) 0.4 (0.1-1.2) X10*3/uL Eos # (Auto) 0.1 (0.0-0.4) X10*3/uL Baso # (Auto) 0.0 (0.0-0.2) X10*3/uL Abs Immat Gran (auto) 0.02 (0.00-0.03) X10*3/uL Absolute Neuts (auto) 5.5 (2.0-8.3) x10*3/uL Absolute Nucleated RBC 0.000 (0.0-0.012) X10*3/uL Nucleated RBC % (auto) 0.0 (0.0-0.2) /100WBC PT 13.5 H (10.9-12.4) SEC INR 1.2 H (0.9-1.1) Sodium 141 (135-145) mmol/L Potassium 4.1 (3.3-5.1) mmol/L Chloride 104 (96-108) mmol/L Carbon Dioxide 21 L (22-29) mmol/L Anion Gap 20 (12-20) BUN 8 L (9-16) mg/dL Creatinine 0.98 (0.5-1.4) mg/dL Estim Creat Clear Calc 86.6 Estimated GFR > 60 Random Glucose 277 H (60-115) mg/dL Calcium 9.1 (8.4-10.2) mg/dL Magnesium 1.8 (1.6-2.6) mg/dL Total Bilirubin 0.7 (0.0-1.0) mg/dL AST 62 H (5-37) U/L ALT 34 (0-40) U/L Alkaline Phosphatase 186 H (39-117) U/L Troponin I High Sens 17.4 (<3.5-35.0) ng/L Total Protein 7.9 (6.5-8.0) g/dL Albumin 4.0 (3.5-5.0) g/dL Ethyl Alcohol 378 H* mg/dL Independent Interpretation I performed an independent interpretation of an: CT Scan Radiology Impression Discussion of test interpretation with radiology: I have reviewed the radiologist's reading. Radiologist Impression: No intra-axial mass, midline shift, hydrocephalus, or acute hemorrhage. Mild periventricular white matter hypodensities are nonspecific though likely reflect changes of age-related microangiopathic etiology. The visualized paranasal sinuses and mastoid air cells are normal. The orbits are within normal limits. There is no acute fracture. IMPRESSION: No acute intracranial abnormality. Critical Care Time Critical Care Time Critical Care Time: Yes Total Critical Care Time: 35 Attestation: I have personally provided critical care time. Time includes review of lab data, radiology results, discussion with consultants, and monitoring for potential decompensation. Intervention performed as documented. Discharge Plan Discharge Clinical Impression: Alcohol intoxication, Fall, Eyebrow laceration Patient Disposition: Home, Self-Care Instructions: Laceration (ED), Alcohol Intoxication (DC) Additional Instructions: Please follow-up with your primary care physician tomorrow. If you have any worsening or new symptoms, please return to the emergency room or call 911 You have had issues with the your hands on both sides in the past, I suspect because of laying in the same position for many hours you have some inflammation of the nerves just make sure to keep moving your hands making fists and just generally making sure that the stiffness resolves, if it is getting worse you can come back to the ER for re-evaluation, but I have seen your prior notes and you have had history of carpal tunnel syndrome and neuropathy in your hands and neuropathy maybe also due to diabetes and alcohol use Por favor, acuda a kohli m?dico de cabecera ma?jayde. Si presenta alg?n empeoramiento o nuevos s?ntomas, regrese a urgencias o llame al 911. Espinoza tenido problemas con ambas jaylen anteriormente. Sospecho que, debido a permanecer en la misma posici?n massimo muchas horas, tiene inflamaci?n de los nervios. Aseg?rese de mold mover las jaylen, apretando los pu?os, para que la rigidez disminuya. Si empeora, puede regresar a urgencias para keaton reevaluaci?n. He revisado kohli historial m?dico y tiene antecedentes de s?ndrome del t?bárbara carpiano y neuropat?a en las jaylen, posiblemente tambi?n relacionada con la diabetes y el consumo de alcohol. Alcohol use disorder You were seen in the Emergency Department today for treatment of alcohol use disorder.? If you would like to cut down or stop your alcohol use please consider calling our outpatient Addiction Treatment office:? [facility] (M-F 9a-5p) [address] [place] [address] [address] You have also been given a list of treatment providers in the area that can assist as well.? If you experience seizures, vomiting blood, black stools, falls, severe headache, chest pain, fevers, trouble breathing, hallucinations or any other concerns you need to call 911 or seek immediate care. Please stay hydrated. Prescriptions: No Action zinc sulfate 50 mg zinc (220 mg) capsule 50 mg PO QPM Qty: 90 1RF pantoprazole 40 mg tablet,delayed release (DR/EC) 40 mg PO QAM Qty: 60 1RF Praluent Pen 75 mg/mL pen injector See Rx Instructions .ROUTE .COMPLEX Qty: 2 5RF Dose Instruction: INJECT 75 MG (1 PEN) SUBCUTANEOUSLY EVERY 2 WEEKS, ROTATE INJECTION SITES Rx Instructions: INJECT 75 MG (1 PEN) SUBCUTANEOUSLY EVERY 2 WEEKS, ROTATE INJECTION SITES vitamin A 3,000 mcg (10,000 unit) capsule 1 cap PO QPM Qty: 90 1RF cyclobenzaprine 5 mg tablet 5 mg PO TID PRN (Reason: muscle spasm) Qty: 10 0RF insulin lispro [Humalog KwikPen Insulin] 100 unit/mL insulin pen 1 sliding scale dose subcut TIDAC Tresiba FlexTouch U-100 100 unit/mL (3 mL) insulin pen 20 unit subcut BEDTIME cholecalciferol (vitamin D3) 50 mcg (2,000 unit) tablet 50 mcg PO DAILY eplerenone [Inspra] 50 mg tablet 50 mg PO QAM diclofenac sodium 1 % gel 2 g topical BID PRN acamprosate 333 mg tablet,delayed release (DR/EC) 666 mg PO BID Jardiance 25 mg tablet 25 mg PO QAM rifaximin 550 mg tablet 550 mg PO TID 14 Days Qty: 42 0RF (DME) FreeStyle Bill 2 Sensor Kit See Rx Instructions .ROUTE Q2W Qty: 1 Rx Instructions: As directed (DME) lancets [TRUEplus Lancets] 33 gauge misc See Rx Instructions .ROUTE TID Qty: 100 Rx Instructions: As directed (DME) pen needle, diabetic [Sure Comfort Pen Needle] 31 gauge x 3/16 needle See Rx Instructions .ROUTE QID Qty: 1200 Rx Instructions: As directed (DME) FreeStyle Lite Strips Strip See Rx Instructions .ROUTE TID Qty: 10 Rx Instructions: As directed vitamin B complex-folic acid [B Complex 1 (with folic acid)] 0.4 mg tablet 1 tab PO QAM folic acid 1 mg tablet 1 mg PO DAILY insulin glargine [Lantus Solostar U-100 Insulin] 100 unit/mL (3 mL) insulin pen 25 unit subcut BEDTIME Print Language: Albanian
[2025-05-08 05:05] LABS: Alanine Aminotransferase 34 U/L (0-40); Albumin Level 4.0 g/dL (3.5-5.0); Alkaline Phosphatase 186 U/L (39-117); Anion Gap 20 (12-20); Aspartate Amino Transferase 62 U/L (5-37); Blood Urea Nitrogen 8 mg/dL (9-16); Calcium 9.1 mg/dL (8.4-10.2); Carbon Dioxide 21 mmol/L (22-29); Chloride 104 mmol/L (96-108); Creatinine Clr Calc Pharmacy 86.6; Estimated Glomerular Filt Rate > 60; Magnesium 1.8 mg/dL (1.6-2.6); Potassium 4.1 mmol/L (3.3-5.1); Sodium 141 mmol/L (135-145); Total Protein 7.9 g/dL (6.5-8.0)
[2025-05-08 05:10] LABS: Troponin-I High Sensitivity 17.4 ng/L (<3.5-35.0)
--- OUTSIDE RECORDS SUMMARY | 2025-05-08 05:39 | XMS_ITS | Encounter Summary ---
Author Organization [employer] Address [address] [place] [address] [address] [place] [address] Care Team Providers Care Used Equipment Sales Representative Name Role Phone Flora Santiago Primary Care Provider Sherin Hall RN Unavailable [phone] Juan Jose Deshpande MD Unavailable [phone] Michael Glass MD Unavailable [phone] Demetrius Austin MD Unavailable Harry Garcia MD Unavailable [phone] Jovany Feliciano MD Unavailable Kandi Panda PharmD Unavailable Angelica Saenz Unavailable Mao Palomino DDS Unavailable [phone] Encounter Details Date Type Department Care Team (Late st Contact Info) Description 02/15/2023 Telephone [facility] MEDICINE [address] [place] [address] Flora Santiago FNP [address] [place], [place] [id number] Social History Tobacco Use Types Packs/Day Years [...] call from sarah. Please contact pt at [phone] (Malay) documented in this encounter Plan of Treatment Upcoming Encounters Date Type Department Care Team (Late st Contact Info) Description 05/08/2025 1:00 PM EDT Office Visit [facility] MEDICINE [address] [place] [phone] Doug Fay MD [address] [place] [phone] 05/15/2025 2:00 PM EST Office Visit [facility] CHC MED & PEDS [address] [place] [address] Flora Santiago FNP [address] [place] [address] 05/18/2025 3:30 PM EST Medication Management [address] [address] Kandi Panda PharmD [address] [place] [phone] documented as of this encounter Visit Diagnoses Not on filedocumented in this encounter Care Teams Used Equipment Sales Representative Relationship Specialty Start Date End Date Flora Santiago FNP [address] [place] [id number] PCP - General Family Medicine 05/02/21 Sherin Hall, RN [address] [place] [phone] Pharmaceutical Representative Family Medicine 07/30/23 Juan Jose Deshpande MD [address] [place] [phone] Nephrology 06/13/24 Michael Glass MD [address] [facility] [address] [facility] [place] [address] General Surgery 06/13/24 Demetrius Austin MD [address] [place] [address] Orthopaedic Surgery 06/13/24 Harry Garcia MD [address] [place] [address] Gastroenterology 06/13/24 Jovany Feliciano MD [address] [address] Cardiology 06/13/24 Kandi Panda PharmD [address] [place] [address] Pharmacist Internal Medicine 08/18/24 Angelica Saenz [address] [place] [address] Dental Hygienist Dental Pharmacy Technician Infusion 08/20/24 Mao Palomino DDS [address] [place] [address] Dentist Dental Pharmacy Technician Infusion 08/20/24 documented as of this encounter
--- OUTSIDE RECORDS SUMMARY | 2025-05-08 05:39 | XMS_ITS | Clinical Summary ---
Author Organization [employer] Address [address] [place] [address] 7[address] [place] [address] Care Team Providers Care Manager Skilled Name Role Phone Vanekeeley Flora FNP Primary Care Provider Sherin Hall RN Unavailable [phone] Juan Jose Deshpande MD Unavailable [phone] Michael Glass MD Unavailable [phone] Demetrius Austin MD Unavailable Harry Garcia MD Unavailable [phone] Jovany Feliciano MD Unavailable [phone] Kandi Panda PharmD Unavailable Angelica Saenz Unavailable Mao Palomino DDS Unavailable [phone] Allergies Active Allergy Reactions Criticality Noted Date Comments Atorvastatin High 02/01/2023 Other reaction(s): elevated LFTs Shrimp Extract High 02/01/2023 Other reaction(s): Difficulty Breathing Medications beta carotene (vitamin A) 3 MG (10436 UT) capsule Take 10,000 Units by mouth in the morning. Active zinc sulfate (Zincate) 220 (50 Zn) MG capsule Take 50 mg of elemental zinc by mouth in the morning. Active thiamine (Vitamin B-1) 100 MG tablet Take 100 mg by mouth 2 times daily. Active TRUEplus Lancets 33G miscIndications :Type 2 diabetes mellitus with hyperglycemia, unspecified whether lobsterman insulin use (HCC) TEST BLOOD SUGAR THREE TIMES DAILY 100 each 09/30/ 024 Active Praluent 75 MG/ML injection INJECT 75 MG SUBCUTANEOUSLY EVERY 2 WEEKS. ROTATE INJECTION SITES Active glucose blood (FreeStyle Precision Ric Test) test stripIndication s:Type 2 diabetes mellitus with hyperglycemia, unspecified whether lobsterman insulin use (HCC) USE DIRECTED TO TEST BLOOD SUGAR THREE TIMES DAILY 100 each Active Additional Information Patient not taking.Reported on 11/03/2024 Blood Pressure kitIndications: Primary hypertension Use to check blood pressure once daily and when symptomatic 1 kit Active cholecalciferol VITAMIN D (Vitamin D-3) 50 MCG (1999) tabletIndicatio ns:Routine health maintenance TAKE 1 TABLET BY MOUTH EVERY EVENING 90 tablet 3 Active lisinopril 10 MG tabletIndicatio ns:Primary hypertension Take 1 tablet (10 mg) by mouth Once per day. 90 tablet 3 025 2025 Active meloxicam (Mobic) 7.5 MG tablet Take 1 tablet (7.5 mg) by mouth 2 times daily. 60 tablet 2025 Active Continuous Glucose Sensor (FreeStyle Bill 3 Plus Sensor) misc 1 each every 15 days. Apply 1 every 15 days as directed for CGM 2 each Active pantoprazole (ProtoNix) 40 MG EC tablet Take 1 tablet by mouth Once per day. Active B Complex Vitamins (Vitamin-B Complex) tablet Take 1 tablet by mouth Once per day. Active Continuous Glucose Men'S Golf Coach (FreeStyle Bill 3 [place]) device 1 each Once per day. Use as directed for CGM 1 each Active cetirizine (ZyrTEC) 5 MG tabletIndicatio ns:Generalized pruritus Take 1 tablet (5 mg) by mouth at bedtime. (For allergies) 90 tablet 1 025 2024 Active eplerenone (Inspra) 50 MG tablet TAKE 1 TABLET BY MOUTH EVERY MORNING 90 tablet 1 Active acamprosate (Campral) 333 MG EC tabletIndicatio ns:Severe alcohol dependence (CMS/HCC) (HCC) Take 2 tablets (666 mg) by mouth 2 times daily. Do not crush, chew, or split. 120 tablet 2 05/23/2 025 Active triamcinolone (Kenalog) 0.1 % creamIndication s:Rash APPLY TO THE AFFECTED AREA(S) TOPICALLY TWICE DAILY IN THE MORNING AND AT BEDTIME 30 g 025 Active Jardiance 25 MG TAKE 1 TABLET BY MOUTH EVERY MORNING 30 tablet 3 025 Active Diclofenac Sodium 1 % gel APPLY 2 GRAMS TOPICALLY TO AFFECTED AREA(S) TWICE DAILY NEEDED 100 g 2 025 Active HumuLIN R 100 UNIT/ML injection INJECT SUBCUTANEOUSLY THREE TIMES DAILY AFTER BREAKFAST, LUNCH, AND DINNER PER SLIDING SCALE 150-200 = 2 UNITS, 201-250 = 4 UNITS, 251-300 = 6 UNITS, 301-350 = 8 UNITS, 351-400 = 10 UNITS, 401-450 = 12 UNITS, > 450 = CALL DOCTOR 025 Active insulin glargine (Lantus SoloStar) 100 UNIT/ML pen Inject 25 Units under the skin at bedtime. Active Embecta Pen Needle Ultrafine 31G X 5 MM misc USE DIRECTED FOUR TIMES DAILY 100 each 11 025 Active Alcohol Swabs (Alcohol Prep) 70 % pads USE DIRECTED FOUR TIMES DAILY 025 Active SURE COMFORT INS SYR 1CC/30G 30G X 5/16 1 ML misc USE 1 SYRINGE SUBCUTANEOUSLY THREE TIMES DAILY 025 Active ketoconazole (NIZOral) 2 % shampooIndicati ons:Tinea capitis APPLY 5-10 ML TOPICALLY TO WET CLEAN HAIR, LATHER, LEAVE ON FOR 3-5 MINUTES, THEN RINSE. USE EVERY 1-2 WEEKS OR TWICE A WEEK NEEDED 120 mL 1 024 2024 Discontinued(M ed list cleanup (will not trigger notification to Pharmacy)) Active Problems Problem Noted Date Diagnosed Date Rib pain on right side 12/19/2024 Assessment & Plan (12/19/2024 4:17 PM EDT): Apply lidocaine patch on affected area and he may take acetaminophen low-dose every 6 hours as needed I will order an x-ray to confirm if patient has a rib fracture or fissure and contact him back with results ED precautions were reviewed with patient Healthcare maintenance 11/14/2024 Overview (11/14/2024): OPH: [facility] - Dr. Weaver. CEE. No retinopathy. Liver lesion 10/19/2024 Assessment & Plan (10/19/2024 [...] (06/13/2024 11:47 AM EST): 04/23/[place] [facility] [place] [facility]. EMG with impression of bilateral [...] Referral to Ortho placed. 02/12/24: [facility] [place] [facility]AV[facility] [place]. Eval bilat hand pain, numbness, tingling x 1 year. Referred for EMG and nerve conduction study to test nerves of BUE. Cont to monitor left ring finger to see if locking and catching. Non-recurrent unilateral ing uinal hernia without obstruction or gangrene 04/13/2024 Overview (04/13/2024): Left inguinal hernia repair completed in Fall [address] Glass - [facility] Umbilical hernia without obstruction and without gangrene 04/13/2024 Overview (04/13/2024): Following with [facility] [place] - Dr. Glass Consult note in Mar 2024 with plan for surgery small periumbilical hernia Reviewed ED precautions Assessment & Plan (04/13/2024 5:17 PM EDT): Speciality clearance for surgery in process Arthralgia of left temporomandibular joint 02/03 Microhematuria 11/30/2023 Overview (04/13/2024): Followed by [facility] - WILL Harris Cytology (2022): benign urothelial cells, benign squamous cells, acute inflammatory cells, occasional RBCs Type 2 diabetes mellitus wit h hyperglycemia, with long-term current use of insulin 02/13/2023 Assessment & Plan (11/14/2024 7:46 PM EDT): Lab Results Component Value Date HGBA1C 6.7 (A) 11/12/2024 HGBA1C 7.4 (A) 09/18/2024 HGBA1C 7.6 (A) 06/13/2024 HGBA1C 7.6 (A) 04/11/2024 -Completed DM visits with Viral Ragsdale RN - Reports limited food intake and suspects this is why A1c has been improving. Reviewed goal nutrition. -Plan: Cont Tresiba 14 units at bedtime Cont Humalog 18-20 units TID AC Cont Jardiance 25mg daily Do NOT use insulin if not eating Cont following with [facility] Pharmacy CDTM team Last eye exam: 05/22/24: [facility] - Dr. Weaver. CEE. No retinopathy. Last foot exam: normal 11/04/21 Statin: No - past adverse rxn to atorvastatin. Following w/ cards - PCSK9i KOBE/ARB: lisinopril 40mg daily -Target FBG 80-130 range, post prandial <180 -ED precautions reviewed Assessment & Plan (06/13/2024 12:11 PM EST): [...] eating Call to schedule follow up with [facility] Pharmacy CDTM team Last eye exam: [...] PCP Greater trochanteric bursitis 02/13/2023 Alcohol use disorder 02/13/2023 Assessment & Plan (11/14/2024 7:43 PM EDT): - Stages of change: Preparation -Warm handoff provided to [facility] AUD team. Patient spoke with GUNNER today and scheduled for AUD clinic on 11/14/2024 Assessment & Plan (09/01/2023 6:49 PM EST): Still drinking ,states last time had beers 3 weeks ago -offered OBAT referral but refused Assessment & Plan (02/14/2023 6:32 AM EDT): - pt states no excessive consumption - recommended to stop drinking alcohol at this time until he is fully evaluated by GI for ascites Atherosclerotic cardiovascular disease 3 Cirrhosis of liver with ascites 02/13/2023 Overview (08/12/2024): Lab Results Component Value Date [...] AM EST): -Previously following with [facility], although transferring to [facility]. -MELD score 8 -Previously completing paracentesis [...] 11:54 AM EST): -Following with [facility] - Dr. Garcia (last consult note [...] 5:00 PM EDT): -Following with [facility] [place] - Dr. Garcia (last consult note [...] 11:37 AM EDT): -Following with [facility] - Dr. Garcia -MELD score 8 [...] 1:58 PM EST): -Following with [facility] - Dr. Garcia -Undergoing paracentesis for ascites, next currently scheduled Jul 2023 -Reviewed basic education and lifestyle interventions important for diagnosis of cirrhosis Medications through GI: Eplerenone 50mg daily DC spironolactone Jun 2023 d/t gynecomastia) Furosemide 20mg daily Plan to review POC with GI: last screening endoscopy, return precautions paracentesis, HCC screening Q6mo (AFP, abd US) Assessment & Plan (03/30/2023 8:49 PM EDT): -Following with [facility] - Dr. Garcia -Reports currently scheduled Q2 weeks for paracentesis -Upcoming paracentesis scheduled week of 04/01/23, with plan for f/u with GI week of 04/08/23 -Reviewed basic education and lifestyle interventions important for diagnosis of cirrhosis Medications through GI: Spironolactone 50mg daily Furosemide 20mg daily Assessment & Plan (02/13/2023 5:57 PM EDT): - followed by Dr. Garcia [facility], last seen in December 2022 - urgent follow-up recommended; we will try calling Biliary acute pancreatitis 09/28/2022 Erosive esophagitis 10/04/2021 Renal stone 09/29/2020 Hypertensive disorder 04/08/2015 Assessment & Plan (06/13/2024 11:57 AM EST): Following with [facility] [place] (Dr. Deshpande) & [facility] [place] (Dr. Feliciano) Stress test from 2022. [...] 5:14 PM EDT): Following with [facility] [place] (Dr. Deshpande) & [facility] [place] (Dr. Feliciano) Stress test from 2022. [...] 11:49 AM EDT): Following with [facility] [place] - Dr. Feliciano. Stress test from [...] likely multifactorial - Following with [facility] - WILL Harris - Cont Cialis [...] Encounters Date Type Department Care Team Description 05/07/2025 Telephone [facility] MED & PEDS [address] [place], [place] [phone] Flora Santiago FNP Call Back Request 05/04/2025 Patient Outreach [facility] MEDICINE [address] [place] [phone] Flora Santiago FNP Transition Of Care (Tcm) (HDF scheduled and SDOH screening completed on 12/08/24 ) 04/06/2025 Refill [facility] [address] [place] [address] Flora Santiago FNP 04/03/2025 Telephone [facility]INE [address] [place] [phone] Flora Santiago FNP 03/19/2025 Telephone [facility] [address] [place] [address] Flora Santiago FNP 03/16/2025 Telephone [facility] [address] [place] [phone] Flora Santiago FNP 03/13/2025 Telephone [facility] MED[facility] [address] [place] [phone] Flora Santiago FNP No Show 03/12/2025 Telephone [facility] PEDS [address] [place] [address] Flora Santiago FNP chart prep 03/06/2025 Refill [facility] [address] [place] [address] Flora Santiago FNP 03/05/2025 Patient Outreach [facility] [address] [place] [address] Flora Santiago FNP Care Coordination (C3/CM F/U) 03/05/2025 Patient Outreach [facility] [address] [place] [phone] Flora Santiago FNP Care Coordination (C3CM f/u call#4-Unable to [place]. Case close due to lost contact) 02/23/2025 Telephone [facility] [address] [place] [phone] Flora Santiago FNP Appointment Request 02/20/2025 Patient Outreach [facility] [address] [place] [address] Flora Santiago FNP Care Coordination (C3/CM F/U) 02/19/2025 Patient Outreach [address] [address] Flora Santiago FNP Care Management (C3CM- F/U call (covering for CM Yaneth)) 02/05/2025 Patient Outreach [facility] [address] [place] [phone] Flora Santiago FNP Care Management (C3CM- F/U call # 2 (coverage for Yaneth)) 02/05/2025 Patient Outreach [facility] [address] [place] [address] Flora Santiago FNP from Last 3 Months Immunizations Immunization Administration Dates Next Due Hep A, Adult [...] tox oid, preservative free, adsorbed 05/28/2019,07/07/2008 Tdap 12/15/2024,08/12/2018 Varicella 01/28/2004 Zoster, Recombinant 06/07/2023,03/30/2023 Social History Tobacco Use Types Packs/Day Years Used Date Smoking Tobacco: Never Passive Smoke Exposure: Never Smokeless Tobacco: Never Tobacco Cessation:Counseling Given: Not Answered Alcohol Use Standard Drinks/Week Comments Never 0 (1 standard drink = 0.6 oz pur e alcohol) Depression Answer Date Recorded Patient Health Questionnaire-9 Score 0 12/08/2024 Patient Health Questionnaire-9 Score 0 12/08/2024 Last PHQ-9: Questionnaire Data Not on file 0 12/08/2024 Housing Stability Answer Date Recorded What is your housing situation today? I have angeloprice gross 01/07/[address] you li ve. Do you have problems with any of the following? None of the above 01/07/2025 Food Insecurity Answer Date Recorded Within the past 12 months, y ou worried that your food would run out before you got money to buy more: Never True 01/07/2025 Within the past 12 months,th e food you bought just didn't last and you didn't have enough money to get more: Never True 08/2024 Transportation Answer Date Recorded In the past 12 months, has l ack of transportation kept you from medical appts, meetings, work or from getting things needed for daily living? No 04/11/2024 Utilities Answer Date Recorded In the past 12 months, has t he electric, gas, oil or water company threatened to shut off services in your home? No 01/07/2025 Depression Answer Date Recorded Patient Health Questionnaire-2 Score 0 12/08/2024 Internet Access Answer Date Recorded Internet Access Q1 Yes 01/07/2025 Internet Access Q2 Not on file 01/07/2025 Sex and Gender Information Value Date Recorded Sex Assigned at Male 05/08/2022 10:16 AM EDT Legal Sex Male 10:16 AM EDT Gender Identity Male 05/08/2022 10:16 AM EDT Sexual Orientation Straight 05/08/2022 10 :16 AM EDT Last Filed Vital Signs Vital Sign Reading Time Taken Comments Blood Pressure 138/82 12/22/2024 12:14 PM EDT Pulse 94 12/22/2024 12:14 PM EDT Temperature 37.2 C (98.9 F) 12/19/2024 8:55 AM EDT Respiratory Rate 18 12/19/2024 8:55 AM EDT Oxygen Saturation 98% 12/19/2024 8:55 AM EDT Inhaled Oxygen Concentration - - Weight 82.2 kg (181 lb 3.2 oz) 12/19/2024 8:55 A M EDT Height 172.7 cm (5' 8 ) 12/19/2024 8:55 AM EDT Body Mass Index 27.55 12/19/2024 8:55 AM EDT Plan of Treatment Upcoming Encounters Date Type Department Care Team (Late st Contact Info) Description 05/08/2025 1:00 PM EDT Office Visit [facility] MEDICINE [address] [place] [phone] Doug Fay MD [address] [place] [address] 05/15/2025 2:00 PM EST Office Visit [facility] MED [facility] PEDS [address] [place] [address] Flora Santiago FNP [address] [place] [address] 05/18/2025 3:30 PM EST Medication Management [facility] [address] [place] [phone] Kandi Panda, Fredrick [address] [place] [address] Health Maintenance Due Date Last Done Comments CT Colonography 1965 FIT DNA/Cologuard 1965 FIT 1965 FOBT 1965 Sigmoidoscopy 1965 Eye Exam 1975 Dental Oral Exam 02/15/2024 08/16/2023, 02/2021, 01/24/2019 Dental X-Ray: Bitewings 07/12/2024 07/11/19, 12/20/2022, 01/13/2021, Additional history exists Dental Prophylaxis 08/07/2024 02/04/2024, 0 07/11/2023, 12/20/2022, Additional history exists COVID-19 Vaccine ( season) 2025 07/22/2021, 10/30/2020, 10/02/2020 Influenza Vaccine (#1) 2025 , 08/12/2018, 05/03/2017, Additional history exists Lipid Panel 03/28/2025 03/28/2024, 06/08, 07/18/2021, Additional history exists RSV Patients and Patients Aged 60 years or older (1 - Risk 60-74 years 1-dose series) 2025 Diabetes: Hemoglobin A1C 05/15/2025 025, 09/18/2024, 06/13/2024, Additional history exists Alcohol/Substance Use Screening 06/13/2025 06/13/2024 Disability Screening 09/17/2025 09/17/2024 Depression Screening 12/08/2025 12/08/2024, 12/09/19 25 Diabetes: Foot Exam 12/08/2025 12/08/2024, Diabetes: Urine Protein Screening 12/08/2025 12/08/2024, 10/31/2023, 06/22/2023, Additional history exists Tobacco Screening 12/19/2025 12/19/2024 SDOH Screening 01/07/2026 01/07/2025 Colonoscopy 03/17/2026 03/17/2021 Colorectal Cancer Screening 03/17/2026 Dental X-Ray: Full Mouth 08/17/2026 024, 07/11/2023, 01/24/2019 DTaP/Tdap/Td Vaccines (4 - Td or Tdap) 12/15/2034 12/15/2024, 05/28/2019, 08/12/2018, Additional history exists Hepatitis A Vaccines Completed 08/31/2004, 02/29/20 04 [...] patient's age to complete this topic Meningococcal B Vaccine Aged Out No l onger eligible based on patient's age to complete [...] Author Blood Pressure < 140/90 Blood Pressure 138/82(2024 12:14 PM EDT) Jose Maria Orozco Hemoglobin A1c < 7 Result Component 6.7( 10:20 AM EDT) No Jose Maria Novak Procedures Procedure Name Priority Date/Time Associated Diagnosis Comments ALBUMIN, RANDOM URINE W/CREATININE Routine 12/08/2024 1:54 PM EDT Healthcare maintenance POCT GLYCATED HEMOGLOBIN, TOTAL Routine 11/12/2024 10:20 AM EDT Type 2 diabetes mellitus with hyperglycemia, with long-term current use of insulin ([facility]) HEPATITIS PANEL, GENERAL Routine 04/29/2024 12:37 PM EDT LIPID PANEL, STANDARD Routine 03/28/2024 8:52 AM EDT PROPHYLAXIS - ADULT Routine 02/04/2024 8 :00 AM EDT Periodontal disease Dental calculus PANORAMIC RADIOGRAPHIC IMAGE Routine 08/16/2023 9:00 AM EST PERIODIC ORAL EVALUATION - ESTABLISHED PATIENT Routine 08/16/2023 9:00 AM EST INTRAORAL - COMPLETE SERIES OF RADIOGRAPHIC IMAGES Routine 07/11/2023 10:00 AM EST HIV 1/2 ANTIGEN/ANTIBODY, FOURTH GENERATION W/RFL Routine 07/18/2021 9:07 AM EST HM COLONOSCOPY Routine 03/17/2021 from Last 3 Months or Most Recently Relevant to Health Maintenance Results * Albumin, Random Urine W/Creatinine (12/08/2024 1:54 PM EDT) Creatinine, Urine 38.66 mg/dL [facility] Microalbumin Urine 6.0 mg/L [facility] Microalbum Creatinine Ratio Ur 15.5 <30 ug/mg cr [facility] Comment:Albumin/Creatinine R atio Reference Ranges: Normal: < 30 ug/mg creatinine Microalbuminuria: 30 - 300 ug/mg creatinineClinical Albuminuria: > 300 ug/mg creatinine Urine 12/08/2024 1:54 PM EDT 12/08/2024 4:04 PM EDT [facility] LAB URINE ORDERABLES Final Re sult [facility] [address] [place] [address] [phone] * (ABNORMAL) POCT HGB A1C (11/12/2024 10:20 AM EDT) Hemoglobin A1C 6.7(A) 4.0 - 6.0 % QC Media Lot # [id number] Lot# Expiration Date Blood 11/12/2024 10:2 0 AM EDT us Flora Santiago [employer] POINT OF CARE TEST ENTER/EDIT ORDERABLES Final Result * Hepatitis Panel, General (04/29/2024 12:37 PM EDT) Hepatitis A IgM Nonreactive Nonreactive [facility] Comment:IgM antibodies to RITCHIE V not detected; does not exclude earlyacute or recovered HAV infection. ~Hepatitis B Surface Antibody REACTIVE Nonreactive [facility] Comment:REACTIVE: > 11.99 mI U/mL Hepatitis B Core Antibody Nonreactive Nonreactive [facility] Hepatitis C Antibody GRAYZONE Nonreactive [facility] Comment:Antibodies to HCV ma y or may not be present. Suggest repeatanti-HCV in 4-6 weeks and/or HCV viral load if clinicallyindicated. Hepatitis B Surface Ag Negative Negative [facility] 04/29/2024 12:3 7 PM EDT 04/29/2024 12:39 PM EDT us Generic External Data Provider LAB BLOOD ORDERAB LES Final Result [facility] [address] [place] [phone] * Lipid Panel, Standard (03/28/2024 8:52 AM EDT) Triglycerides 90 <150 mg/dL [facility] Comment:Desirable Triglyceri de: less than 150 mg/dLBorderline High Triglyceride 150-199 mg/dLHigh Triglyceride: 200-499 mg/dLVery High Triglyceride: greater than or equal to 5OO mg/dL Cholesterol 187 <200 mg/dL [facility] Comment:Desirable Cholestero l: less than 200 mg/dLBorderline High Cholesterol: 200-239 mg/dLHigh Cholesterol: greater than 239 mg/dL LDL Cholesterol Calculated 64 <100 mg/dL [facility] Comment:Desirable LDL: less than 100 mg/dLNear Optimal/Above Optimal LDL: 110- 129 mg/dLBorderline High LDL: 130-159 mg/dLHigh LDL: 160-189 mg/dLVery High LDL: greater than or equal to 190 mg/dL HDL Cholesterol 105 >40 mg/dL [facility] Comment:Desirable HDL: great er than 40 mg/dL Note: This HDL assay may give artificially low results in patients with liver disease. 03/28/2024 8:52 AM EDT 03/28/2024 8:52 AM EDT us Generic External Data Provider LAB BLOOD ORDERAB LES Final Result [facility] [address] [place] [address] [phone] * HIV 1/2 ANTIGEN/ANTIBODY,FOURTH GENERATION W/RFL (07/18/2021 9:07 AM EST) HIV-1/2 ANTIGEN AND ANTIBODIES, 4TH GENERATION W/ REFLEX NON-REACT NASEEM NON-REACT NASEEM [facility] Comment: HIV-1 antigen and HIV-1/HIV-2 antibodies were not detected. There is no laboratory evidence of HIV infection. PLEASE NOTE: This information has been disclosed to you from records whose confidentiality may be protected by state law. If your state requires such protection, then the state law prohibits you from making any further disclosure of the information without the specific written consent of the person to whom it pertains, or as otherwise permitted by law. A general authorization for the release of medical or other information is NOT sufficient for this purpose. For additional information please refer to http://education.[employer].WebKite/faq/PLH396 (This link is being provided for informational/ educational purposes only.) The performance of this assay has not been clinically validated in patients less than 2 years old. 07/18/2021 9:07 AM EST us Flora Santiago [employer] LAB BLOOD ORDERABLES Final Res ult [facility] [address] [place] [address], * Hm Colonoscopy (03/17/2021) Colonoscopy Normal Normal Narrative Debi Zamora - 03/17/2021 Repeat in 5 years tubular adenoma us Historical Provider HEALTH MAINTENANCE Final Result from Last 3 Months or Most Recently Relevant to Health Maintenance [place] [address] [address] [place] [address] C3 Member Subscriber Plan / Payer (Ef fective 2024-Present) Name:Steven Stanley Relation to Subscriber:Self Name:Steven Stanley Payer ID:Not on file Group ID:Not on file Type:Medicaid Address: [address] [place] [address] C3 [place] [phone] GENERIC OTHER Care Teams Manager Skilled Relationship Specialty Start Date End Date Flora Santiago FNP [address] [place] [phone] PCP - General Family Medicine 05/02/21 Sherin Hall, RN [address] [place] [phone] Quality Assurance Associate Family Medicine 07/30/23 Juan Jose Deshpande MD [address] [place] [phone] Nephrology 06/13/24 Michael Glass MD [address] [facility] [place] [address] General Surgery 06/13/24 Demetrius Austin MD [address] [place] [address] Orthopaedic Surgery 06/13/24 Harry Garcia MD [address] [place] [address] Gastroenterology 06/13/24 Jovany Feliciano MD [address] [address] Cardiology 06/13/24 Kandi Panda, Fredrick [address] [place] [address] Pharmacist Internal Medicine 08/18/24 Angelica Saenz [address] [place] [address] Dental Hygienist Dental Telephone Installer 08/20/24 Mao Palomino DDS [address] [place] [address] Dentist Dental Telephone Installer 08/20/24
--- OUTSIDE RECORDS SUMMARY | 2025-05-08 05:39 | XMS_ITS | Encounter Summary ---
Author Organization [employer] Address [address] [place] [address] 7t [place] [address] Care Team Providers Care Hand Shoe Cutter Name Role Phone Flora Santiago CIARRA Primary Care Provider [phone] Sherin Hall RN Unavailable [phone] Juan Jose Deshpande MD Unavailable [phone] Michael Glass MD Unavailable [phone] Demetrius Austin MD Unavailable Harry Garcia MD Unavailable [phone] Jovany Feliciano MD Unavailable [phone] Kandi Panda PharmD Unavailable Angelica Saenz Unavailable Mao Palomino DDS Unavailable [phone] Encounter Details Date Type Department Care Team (Latest Contact Info) Description 01/13/2021 Abstract [facility] CONVERSIONS Dental, Provider, DDS Social [...] Description 05/08/2025 1:00 PM EDT Office Visit [facility] MEDICINE [address] [place], [place] [phone] Doug Fay MD [address] [place] [address] 05/15/2025 2:00 PM EST Office Visit [facility] CHC MED & PEDS [address] [place] [address] Flora Santiago FNP 505 [place] [address] 05/18/2025 3:30 PM EST Medication Management [facility] MEDICINE [address] [place] [address] Kandi Panda PharmD [address] [place] [address] documented as of this encounter Visit Diagnoses Not on filedocumented in this encounter Care Teams Hand Shoe Cutter Relationship Specialty Start Date End Date Flora Santiago FNP [address] [place] [address] PCP - General Family Medicine 05/02/21 Sherin Hall, RN [address] [place] [address] Film Splicer Family Medicine 07/30/23 Juan Jose Deshpande MD [address] [place] [address] Nephrology 06/13/24 Michael Glass MD [address] [place] [address] Dr 3rd [place] [address] General Surgery 06/13/24 Demetrius Austin MD [address] [place] [address] Orthopaedic Surgery 06/13/24 Harry Garcia MD [address] 3rd [place] [address] Gastroenterology 06/13/24 Jovany Feliciano MD [address] 3rd [place] [address] Cardiology 06/13/24 Kandi Panda PharmD [address] [place] [address] Pharmacist Internal Medicine 08/18/24 Angelica Saenz [address] [place] [address] Dental Hygienist Dental Supervisor Respiratory 08/20/24 Mao Palomino DDS [address] [place] [address] Dentist Dental Supervisor Respiratory 08/20/24 documented as of this encounter
--- OUTSIDE RECORDS SUMMARY | 2025-05-08 05:39 | XMS_ITS | Encounter Summary ---
Author Organization [employer] Address [address] [facility] 7t [place] [address] Care Team Providers Care Co Founder And President Name Role Phone Flora Santiago Primary Care Provider Sherin Hall RN Unavailable [phone] Juan Jose Deshpande MD Unavailable [phone] Michael Glass MD Unavailable [phone] Demetrius Austin MD Unavailable Harry Garcia MD Unavailable [phone] Jovany Feliciano MD Unavailable Kandi Panda PharmD Unavailable Angelica Saenz Unavailable Mao Palomino DDS Unavailable [phone] Encounter Details Date Type Department Care Team (Late st Contact Info) Description 11/12/2024 Orders Only [facility] CHC MED & PEDS [address] [place], [place] [phone] Flora Santiago FNP 505 [place] [address] Generalized pruritus Social History Tobacco Use Types Packs/Day Years [...] Date Recorded Patient Health Questionnaire-2 Score 0 11/03/2024 Internet Access Answer Date Recorded Internet Access [...] Description 05/08/2025 1:00 PM EDT Office Visit [facility] [address] [place] [address] Doug Fay MD [address] [place] [address] 05/15/2025 2:00 PM EST Office Visit [facility] MED [facility] PEDS [address] [place] [address] Flora Santiago FNP [address] [place] [address] 05/18/2025 3:30 PM EST Medication Management [facility] [address] [place] [address] Kandi Panda PharmD [address] [place] [address] documented as of this encounter Goals Goal Patient Goal Type Associated Problems Recent Progress Patient-Stated? Author Blood Pressure < 140/90 Blood Pressure 138/82(2024 12:14 PM EDT) No Jose Maria Novak Hemoglobin A1c < 7 Result Component 6.7( 10:20 AM EDT) No Jose Maria Novak documented as of this encounter Visit Diagnoses Diagnosis Generalized pruritus Unspecified pruritic disorder documented in this encounter Additional Health Concerns Assessment Noted Time PHQ-9 Depression Total Score: 0 11/30/19 11:07 AM EDT documented as of this encounter Care Teams Co Founder And President Relationship Specialty Start Date End Date Flora Santiago FNP [address] [place] [address] PCP - General Family Medicine 05/02/21 Sherin Hall, MICHELLE [address] [place] [address] Jointer Machine Operator Family Medicine 07/30/23 Juan Jose Deshpande MD [address] [place] [address] Nephrology 06/13/24 Michael Glass MD [address] [place] [address] Dr 3rd [place] [address] General Surgery 06/13/24 Demetrius Austin MD [address] [place] [address] Orthopaedic Surgery 06/13/24 Harry Garcia MD [address] 3rd [place] [address] Gastroenterology 06/13/24 Jovany Feliciano MD [address] 3rd [place] [address] Cardiology 06/13/24 Kandi Panda PharmD [address] [place] [address] Pharmacist Internal Medicine 08/18/24 Angelica Saenz [address] [place] [address] Dental Hygienist Dental Braille Transcriber 08/20/24 Mao Palomino DDS [address] [place] [address] Dentist Dental Braille Transcriber 08/20/24 documented as of this encounter
--- OUTSIDE RECORDS SUMMARY | 2025-05-08 05:39 | XMS_ITS | Encounter Summary ---
Author Organization [employer] Address [address] [place] [address] 7t [place] [address] Care Team Providers Care Facility Coordinator Name Role Phone Flora Santiago Primary Care Provider [phone] Sherin Hall RN Unavailable [phone] Juan Jose Deshpande MD Unavailable [phone] Michael Glass MD Unavailable [phone] Demetrius Austin MD Unavailable Harry Garcia MD Unavailable [phone] Jovany Feliciano MD Unavailable [phone] Kandi Panda PharmD Unavailable [phone] Angelica Saenz Unavailable Mao Palomino DDS Unavailable [phone] Reason for Visit * Reason Onset Date Comments ER Follow-up 12/19/2022 Encounter Details Date Type Department Care Team (Late st Contact Info) Description 12/19/2022 Telephone [facility] MEDICINE [address] [place] [address] Flora Santiago FNP [address] [place], [place] [phone] ER Follow-up Social History Tobacco Use Types [...] - 12/20/2022 12:22 PM EDT T/C to [phone] through [facility] id - [id number] to schedule HDF , No answer. LVM to call back on [phone]. * Telephone Encounter - Elizabeth Call - 12/19/2022 3:14 PM EDT Tc from pt requesting a HDF appt. Pt was admitted at [facility] on 12/09/22 and discharged on 12/10/22 due to hernia by belly button, lower back pain, liver and left hip pain. Patient advised will forward to team documented in this encounter Plan of Treatment Upcoming Encounters Date Type Department Care Team (Late st Contact Info) Description 05/08/2025 1:00 PM EDT Office Visit [facility] MEDICINE [address] [place], [place] [phone] Doug Fay MD [address] [place] [address] 05/15/2025 2:00 PM EST Office Visit [facility] CHC MED & PEDS [address] [place] [address] Flora Santiago FNP 505 [place] [address] 05/18/2025 3:30 PM EST Medication Management [facility] MEDICINE [address] [place] [address] Kandi Panda PharmD [address] [place] [address] documented as of this encounter Visit Diagnoses Not on filedocumented in this encounter Care Teams Facility Coordinator Relationship Specialty Start Date End Date Flora Santiago FNP [address] [place] [address] PCP - General Family Medicine 05/02/21 Sherin Hall, RN [address] [place] [address] Supervisor Pipeline Maintenance Family Medicine 07/30/23 Juan Jose Deshpande MD [address] [place] [address] Nephrology 06/13/24 Michael Glass MD [address] [place] [address] Dr [address] [place] [address] General Surgery 06/13/24 Demetrius Austin MD [address] [place] [address] Orthopaedic Surgery 06/13/24 Harry Garcia MD [address] [place] [address] Gastroenterology 06/13/24 Jovany Feliciano MD [address] [place] [address] Cardiology 06/13/24 Kandi Panda PharmD [address] [place] [address] Pharmacist Internal Medicine 08/18/24 Angelica Saenz [address] [place] [address] Dental Hygienist Dental Physician [facility] 08/20/24 Mao Palomino DDS [address] [place] [address] Dentist Dental Physician [facility] 08/20/24 documented as of this encounter
--- OUTSIDE RECORDS SUMMARY | 2025-05-08 05:39 | XMS_ITS | Encounter Summary ---
Author Organization [employer] Address [address] [place] [address] 7t [place] [address] Care Team Providers Care Meeting/Event Planner Name Role Phone Flora Santiago Primary Care Provider [phone] Sherin Hall RN Unavailable Juan Jose Deshpande MD Unavailable [phone] Michael Glass MD Unavailable [phone] Demetrius Austin MD Unavailable Harry Garcia MD Unavailable [phone] Jovany Feliciano MD Unavailable Kandi Panda PharmD Unavailable Angelica Saenz Unavailable Mao Palomino DDS Unavailable [phone] Reason for Visit * Reason Onset Date Comments Returning Call Back 12/19/2022 Encounter Details Date Type Department Care Team (Late st Contact Info) Description 12/19/2022 Telephone [facility] MEDICINE [address] [place] [address] Flora Santiago FNP [address] [place], [place] [phone] Returning Call Back Social History Tobacco Use [...] Description 05/08/2025 1:00 PM EDT Office Visit [facility] MEDICINE [address] [place] [address] Doug Fay MD [address] [place] [address] 05/15/2025 2:00 PM EST Office Visit [facility] CHC MED & PEDS 505 [place] [address] Flora Santiago FNP 505 [place] [address] 05/18/2025 3:30 PM EST Medication Management [facility] MEDICINE [address] [place] [address] Kandi Panda PharmD [address] [place] [address] documented as of this encounter Visit Diagnoses Not on filedocumented in this encounter Care Teams Meeting/Event Planner Relationship Specialty Start Date End Date Flora Santiago FNP [address] [place] [address] PCP - General Family Medicine 05/02/21 Sherin Hall RN [address] [place] [address] Hydraulic Auto Jack Mechanic Family Medicine 07/30/23 Juan Jose Deshpande MD [address] [place] [address] Nephrology 06/13/24 Michael Glass MD [address] [facility] [address] [place] [address] General Surgery 06/13/24 Demetrius Austin MD [address] [place] [address] Orthopaedic Surgery 06/13/24 Harry Garcia MD [address] [facility] [address] [place] [address] Gastroenterology 06/13/24 Jovany Feliciano MD [address] [facility] [address] [place] [address] Cardiology 06/13/24 Kandi Panda PharmD [address] [place] [address] Pharmacist Internal Medicine 08/18/24 Angelica Saenz [address] [place] [address] Dental Hygienist Dental Ict Sales Representative 08/20/24 Mao Palomino DDS [address] [place] [address] Dentist Dental Ict Sales Representative 08/20/24 documented as of this encounter
--- OUTSIDE RECORDS SUMMARY | 2025-05-08 05:39 | XMS_ITS | Encounter Summary ---
Author Organization [employer] Address [address] [place] [address] 7t [place] [address] Care Team Providers Care Pet Supplies Salesperson Name Role Phone Flora Santiago Primary Care Provider Sherin Hall RN Unavailable [phone] Juan Jose Deshpande MD Unavailable [phone] Michael Glass MD Unavailable [phone] Demetrius Austin MD Unavailable Harry Garcia MD Unavailable [phone] Jovany Feliciano MD Unavailable Kandi Panda PharmD Unavailable Angelica Saenz Unavailable Mao Palomino DDS Unavailable [phone] Reason for Visit * Reason Onset Date Comments Call Back Request 05/07/2025 Encounter Details Date Type Department Care Team (Late st Contact Info) Description 05/07/2025 Telephone [facility] CHC MED & PEDS [address] [place], [place] [phone] Flroa Santiago FNP [address] [place] [address] Call Back Request Social History Tobacco Use Types Packs/Day Years [...] housing situation today? I have angelo gross 01/07/[address] you [...] encounter Miscellaneous Notes * Telephone Encounter - Daisha Kimble - 05/07/2025 3:55 PM EDT Tc from pt daughter is worried about pt due to his alcohol abuse , pt has been sent to rehab 3 times already . States pt is not in good condition to be in charge of medical necessities but pt refusesto add her to HIPAA . She says she just needs help Contact pt daughter Suyapa at [phone] documented in this encounter Plan of Treatment Upcoming Encounters Date Type Department Care Team (Late st Contact Info) Description 05/08/2025 1:00 PM EDT Office Visit [facility] MEDICINE 230 [place] [address] Doug Fay MD [address] [place] [address] 05/15/2025 2:00 PM EST Office Visit [facility] CHC MED & PEDS 505 [place] [address] Flora Santiago FNP [address] [place], [place] 05/18/2025 3:30 PM EST Medication Management [facility] MEDICINE [address] [place] [address] Kandi Panda PharmD [address] [place], [place] documented as of this encounter Goals Goal [...] Noted Time PHQ-9 Depression Total Score: 0 12/09/19 1:28 PM EDT documented as of this encounter Care Teams Pet Supplies Salesperson Relationship Specialty Start Date End Date Flora Santiago FNP [address] [place] [address] PCP - General Family Medicine 05/02/21 Sherin Hall, RN [address] [place] [address] Fashion Buyer Family Medicine 07/30/23 Juan Jose Deshpande MD [address] [place] [address] Nephrology 06/13/24 Michael Glass MD [address] [facility] [address] 3rd [place] [address] General Surgery 06/13/24 Demertius Austin MD [address] [place] [address] Orthopaedic Surgery 06/13/24 Harry Garcia MD [address] [place] [address] Gastroenterology 06/13/24 Jovany Feliciano MD [address] [place] [address] Cardiology 06/13/24 Kandi Panda, Fredrick [address] [place] [address] Pharmacist Internal Medicine 08/18/24 Angelica Saenz [address] [place] [address] Dental Hygienist Dental Personal Lines Insurance Advisor 08/20/24 Mao Palomino DDS [address] [place] [address] Dentist Dental Personal Lines Insurance Advisor 08/20/24 documented as of this encounter
--- OUTSIDE RECORDS SUMMARY | 2025-05-08 05:39 | XMS_ITS | Encounter Summary ---
Author Organization [employer] Address [address] [facility] 7t [place] [address] Care Team Providers Care Supervisor Testing Name Role Phone Flora Santiago CIARRA Primary Care Provider Sherin Hall RN Unavailable [phone] Juan Jose Deshpande MD Unavailable [phone] Michael Glass MD Unavailable [phone] Demetrius Austin MD Unavailable Harry Garcia MD Unavailable [phone] Jovany Feliciano MD Unavailable Kandi Panda PharmD Unavailable Angelica Saenz Unavailable Mao Palomino DDS Unavailable [phone] Encounter Details Date Type Department Care Team (Late st Contact Info) Description 10/04/2022 Orders Only [facility] CHC MED & PEDS [address] [place], [place] [phone] Shahnaz Perez LPN Social History Tobacco Use [...] Description 05/08/2025 1:00 PM EDT Office Visit [facility] MEDICINE 230 [place] [address] Doug Fay MD 230 [place] [address] 05/15/2025 2:00 PM EST Office Visit [facility] CHC MED & PEDS [address] [place] [address] Flora Santiago FNP 505 [place] [address] 05/18/2025 3:30 PM EST Medication Management [facility] MEDICINE [address] [place] [address] Kandi Panda PharmD [address] [place] [address] documented as of this encounter Visit Diagnoses Not on filedocumented in this encounter Care Teams Supervisor Testing Relationship Specialty Start Date End Date Flora Santiago FNP [address] [place] [address] PCP - General Family Medicine 05/02/21 Sherin Hall, RN [address] [place] [address] Digital Sales Representative Family Medicine 07/30/23 Juan Jose Dehspande MD [address] [place] [address] Nephrology 06/13/24 Michael Glass MD [address] [place] [address] Dr [address] [place] [address] General Surgery 06/13/24 Demetrius Austin MD [address] [place] [address] Orthopaedic Surgery 06/13/24 Harry Garcia MD [address] 3rd [place] [address] Gastroenterology 06/13/24 Jovany Feliciano MD [address] [place] [address] Cardiology 06/13/24 Kandi Panda PharmD 230 [place] [address] Pharmacist Internal Medicine 08/18/24 Angelica Saenz [address] [place] [address] Dental Hygienist Dental Assistant At Surgery 08/20/24 Mao Palomino DDS [address] [place] [address] Dentist Dental Assistant At Surgery 08/20/24 documented as of this encounter
--- OUTSIDE RECORDS SUMMARY | 2025-05-08 05:39 | XMS_ITS | Encounter Summary ---
Author Organization [employer] Address [address] [facility] 7t [place] [address] Care Team Providers Care Legal Coordinator Name Role Phone Flora Santiago KNITTED GARMENT FINISHER Primary Care Provider [phone] Sherin Hall RN Unavailable [phone] Juan Jose Deshpande MD Unavailable [phone] Michael Glass MD Unavailable [phone] Demetrius Austin MD Unavailable Harry Garcia MD Unavailable [phone] Jovany Feliciano MD Unavailable Kandi Panda PharmD Unavailable [phone] Angelica Saenz Unavailable Mao Palomino DDS Unavailable [phone] Encounter Details Date Type Department Care Team (Late st Contact Info) Description 07/14/2022 Orders Only [facility] CH[facility] MED & PEDS [address] [place], [place] [phone] Shahnaz Perez LPN Social History Tobacco Use [...] Description 05/08/2025 1:00 PM EDT Office Visit [facility] MEDICINE [address] [place] [address] Doug Fay MD [address] [place] [address] 05/15/2025 2:00 PM EST Office Visit [facility] CH[facility] MED & PEDS [address] [place] [address] Flora Santiago FNP 505 [place] [address] 05/18/2025 3:30 PM EST Medication Management [facility] MEDICINE [address] [place] [address] Kandi Panda PharmD [address] [place] [address] documented as of this encounter Visit Diagnoses Not on filedocumented in this encounter Care Teams Legal Coordinator Relationship Specialty Start Date End Date Flora Santiago FNP [address] [place] [address] PCP - General Family Medicine 05/02/21 Sherin Hall, RN [address] [place] [address] Gifted Program Teacher Family Medicine 07/30/23 Juan Jose Deshpande MD [address] [place] [address] Nephrology 06/13/24 Michael Glass MD [address] [place] [address] Dr 3rd [place] [address] General Surgery 06/13/24 Demetrius Austin MD [address] [place] [address] Orthopaedic Surgery 06/13/24 Harry Garcia MD [address] 3rd [place] [address] Gastroenterology 06/13/24 Jovany Feliciano MD [address] 3rd [place] [address] Cardiology 06/13/24 Kandi Panda, RobertD [address] [place] [address] Pharmacist Internal Medicine 08/18/24 Angelica Saenz [address] [place] [address] Dental Hygienist Dental Hood Fitter 08/20/24 Mao Palomino DDS [address] [place] [address] Dentist Dental Hood Fitter 08/20/24 documented as of this encounter
--- OUTSIDE RECORDS SUMMARY | 2025-05-08 05:39 | XMS_ITS | Encounter Summary ---
Author Organization [employer] Address [address] [place] [address] 7t [place] [address] Care Team Providers Care Heat Treat Worker Name Role Phone Flora Santiago E [employer] MERCHANT Primary Care Provider Sherin Hall RN Unavailable Juan Jose Deshpande MD Unavailable [phone] Michael Glass MD Unavailable [phone] Demetrius Austin MD Unavailable Harry Garcia MD Unavailable [phone] Jovany Feliciano MD Unavailable [phone] Kandi Panda PharmD Unavailable [phone] Angelica Saenz Unavailable Mao Palomino DDS Unavailable [phone] Encounter Details Date Type Department Care Team (Late st Contact Info) Description 02/22/2023 Orders Only [facility] MEDICINE [address] [place], [place] [phone] Yanique Hart MD [address] [place], [place] [address] Other ascites (Primary Dx) Social History Tobacco [...] Description 05/08/2025 1:00 PM EDT Office Visit [facility] MEDICINE [address] [place] [address] Doug Fay MD [address] [place] [address] 05/15/2025 2:00 PM EST Office Visit [facility] CHC MED & PEDS 505 [place] [address] Flora Santiago FNP 505 [place] [address] 05/18/2025 3:30 PM EST Medication Management [address] [address] Kandi Panda PharmD [address] [place] [address] Scheduled Orders Name Type Priority Associated Diagnoses [...] Primary documented in this encounter Care Teams Heat Treat Worker Relationship Specialty Start Date End Date Flora Santiago FNP [address] [place] [address] PCP - General Family Medicine 05/02/21 Sherin Hall, MICHELLE [address] [place] [address] Prepper Family Medicine 07/30/23 Juan Jose Deshpande MD [address] [place] [address] Nephrology 06/13/24 Michael Glass MD [address] [facility] [address] [place] [address] General Surgery 06/13/24 Demetrius Austin MD [address] [place] [address] Orthopaedic Surgery 06/13/24 Harry Garcia MD [address] [facility] [address] [place] [address] Gastroenterology 06/13/24 Jovany Feliciano MD [address] [facility] [address] [facility] [address] [place] [address] Cardiology 06/13/24 Kandi Panda PharmD 230 [place] [address] Pharmacist Internal Medicine 08/18/24 Angelica Saenz [address] [place] [address] [address] Supervisor 08/20/24 Mao Palomino DDS [address] [place] [address] Supervisor 08/20/24 documented as of this encounter
--- OUTSIDE RECORDS SUMMARY | 2025-05-08 05:39 | XMS_ITS | Encounter Summary ---
Author Organization [employer] Address [address] [facility] 7t [place] [address] Care Team Providers Care Peer Tutor Name Role Phone Flora Santiago Primary Care Provider Sherin Hall RN Unavailable [phone] Juan Jose Deshpande MD Unavailable [phone] Michael Glass MD Unavailable [phone] Demetrius Austin MD Unavailable Harry Garcia MD Unavailable [phone] Jovany Feliciano MD Unavailable [phone] Kandi Panda PharmD Unavailable Angelica Saenz Unavailable Mao Palomino DDS Unavailable [phone] Reason for Visit * Reason Comments Med Refill Encounter Details Date Type Department Care Team (Late st Contact Info) Description 11/28/2024 Refill [facility] MEDICINE [address] [place] [address] Flora Santiago FNP [address] [place], [place] [phone] Social History Tobacco Use Types Packs/Day Years [...] Description 05/08/2025 1:00 PM EDT Office Visit [facility] MEDICINE 230 [place] [address] Doug Fay MD 230 [place] [address] 05/15/2025 2:00 PM EST Office Visit [facility] MED & PEDS 505 [place] [address] Flora Santiago FNP 505 [place] [address] 05/18/2025 3:30 PM EST Medication Management [facility] MEDICINE [address] [place] [address] Kandi Panda PharmD [address] [place] [address] documented as of this encounter Goals Goal [...] documented as of this encounter Care Teams Peer Tutor Relationship Specialty Start Date End Date Flora Santiago FNP [address] [place] [address] PCP - General Family Medicine 05/02/21 Sherin Hall, MICHELLE [address] [place] [address] Side Seam Tender Family Medicine 07/30/23 Juan Jose Deshpande MD [address] [place] [address] Nephrology 06/13/24 Michael Glass MD [address] [place] [address] Dr 3rd [place] [address] General Surgery 06/13/24 Demetrius Austin MD [address] [place] [address] Orthopaedic Surgery 06/13/24 Harry Garcia MD [address] [place] [address] Gastroenterology 06/13/24 Jovany Feliciano MD [address] 3rd [place] [address] Cardiology 06/13/24 Kandi Panda PharmD [address] [place] [address] Pharmacist Internal Medicine 08/18/24 Angelica Saenz [address] [place] [address] Dental Hygienist Dental Director Field Services 08/20/24 Mao Palomino DDS [address] [place] [address] Dentist Dental Director Field Services 08/20/24 documented as of this encounter
--- OUTSIDE RECORDS SUMMARY | 2025-05-08 05:39 | XMS_ITS | Encounter Summary ---
Author Organization [employer] Address [address] [place] [address] 7t [place] [address] Care Team Providers Care Equipment Tester Name Role Phone Flora Santiago CIARRA Primary Care Provider [phone] Sherin Hall RN Unavailable [phone] Juan Jose Deshpande MD Unavailable [phone] Michael Glass MD Unavailable [phone] Demetrius Austin MD Unavailable Harry Garcia MD Unavailable [phone] Jovany Feliciano MD Unavailable [phone] Kandi Panda PharmD Unavailable [phone] Angelica Saenz Unavailable Mao Palomino DDS Unavailable Encounter Details Date Type Department Care Team (Latest Contact Info) Description 01/24/[address] [facility] CONVERSIONS Dental, Provider, DDS Social [...] Description 05/08/2025 1:00 PM EDT Office Visit [facility] MEDICINE [address] [place], [place] [phone] Doug Fay MD 230 [place] [address] 05/15/2025 2:00 PM EST Office Visit [facility] CHC MED & PEDS 505 [place] [address] Flora Santiago FNP 505 [place] [address] 05/18/2025 3:30 PM EST Medication Management [facility] MEDICINE [address] [place] [address] Kandi Panda PharmD 230 [place] [address] documented as of this encounter Visit Diagnoses Not on filedocumented in this encounter Care Teams Equipment Tester Relationship Specialty Start Date End Date Flora Santiago FNP [address] [place] [address] PCP - General Family Medicine 05/02/21 Sherin Hall, RN [address] [place] [address] Plant Anatomy Teacher Family Medicine 07/30/23 Juan Jose Deshpande MD [address] [place] [address] Nephrology 06/13/24 Michael Glass MD [address] [place] [address] Dr 3rd [place] [address] General Surgery 06/13/24 Demetrius Austin MD [address] [place] [address] Orthopaedic Surgery 06/13/24 Harry Garcia MD [address] 3rd [place] [address] Gastroenterology 06/13/24 Jovany Feliciano MD [address] 3rd [place] [address] Cardiology 06/13/24 Kandi Panda PharmD 230 [place] [address] Pharmacist Internal Medicine 08/18/24 Angelica Saenz [address] [place] [address] Dental Hygienist Dental Jira Administrator 08/20/24 Mao Palomino DDS [address] [place] [address] Dentist Dental Jira Administrator 08/20/24 documented as of this encounter
--- OUTSIDE RECORDS SUMMARY | 2025-05-08 05:39 | XMS_ITS | Encounter Summary ---
Author Organization [employer] Address [address] [place] [address] 7t [place] [address] Care Team Providers Care Experimental Plastics Fabricator Name Role Phone Pamela [place] FNP Primary Care Provider [phone] Sherin Hall RN Unavailable [phone] Juan Jose Deshpande MD Unavailable [phone] Michael Glass MD Unavailable [phone] Demetrius Austin MD Unavailable Harry Garcia MD Unavailable [phone] Jovany Feliciano MD Unavailable Kandi Panda PharmD Unavailable [phone] Angelica Saenz Unavailable Mao Palomino DDS Unavailable [phone] Reason for Referral * Consultation (Routine) - Pending Review Specialty Diagnoses / Procedures Referred By Contgilson t Referred To Contact Pharmacy Diagnoses Type 2 diabetes mellitus with hyperglycemia, with long-term current use of insulin (HCC) Divya Amos MD 230 [place] [address] Phone: tel: fax: Referral ID Status Reason Start Date Expiration Date Visits Requested Visits Authorized [id number] Pending Review Consult and Treat 06/11/2024 06/11/2025 6 6 Encounter Details Date Type Department Care Team (Late st Contact Info) Description 06/11/2024 Orders Only [facility] MEDICINE [address] [place] [address] Divya Amos MD 230 [place] [address] Type 2 diabetes mellitus with hyperglycemia, with long-term current use of insulin (CMS/HCC) (Primary Dx) Social History Tobacco Use Types [...] the past 12 months, has t he AF83, gas, oil or water V[employer] threatened to shut off services in your [...] Description 05/08/2025 1:00 PM EDT Office Visit [facility] MED[facility] [address] [place] [address] Doug Fay MD 230 [place] [address] 05/15/2025 2:00 PM EST Office Visit [facility] CH[facility] MED & PEDS 505 [place] [address] Flora Santiago FNP 505 [place] [address] 05/18/2025 3:30 PM EST Medication Management [facility] MEDIC[facility] [address] [place] [address] Kandi Panda PharmD 230 [place] [address] Scheduled Referrals Name Type Priority Associated Diagnoses Orde r Schedule Referral to Pharmacy CDTM Outpatient Referral Routine Type 2 diabetes mellitus with hyperglycemia, with long-term current use of insulin ([facility]) Ordered: 06/11/2024 documented as of this encounter [...] hyperglycemia, with long-term current use of insulin ([facility])- Primary documented in this encounter Additional Health Concerns Assessment Noted Time PHQ-9 Depression Total Score: 0 11/30/19 24 11:07 AM EDT documented as of this encounter Care Teams Experimental Plastics Fabricator Relationship Specialty Start Date End Date Flora Santiago FNP [address] [place] [address] PCP - General Family Medicine 05/02/21 Sherin Hall RN 230 [place] [address] Financial Sales Assistant Family Medicine 07/30/23 Juan Jose Deshpande MD [address] [place] [address] Nephrology 06/13/24 Michael Glass MD [address] [place] [address] Dr 3rd [place] [address] General Surgery 06/13/24 Demetrius Austin MD [address] [place] [address] Orthopaedic Surgery 06/13/24 Harry Garcia MD [address] 3rd [place] [address] Gastroenterology 06/13/24 Jovany Feliciano MD [address] [facility] [address] [place] [address] Cardiology 06/13/24 Kandi Panda PharmD [address] [place] [address] Pharmacist Internal Medicine 08/18/24 Angelica Saenz [address] [place] [address] Dental Hygienist Dental Office Clerk 08/20/24 Mao Palomino DDS 230 [place] [address] Dentist Dental Office Clerk 08/20/24 documented as of this encounter
--- OUTSIDE RECORDS SUMMARY | 2025-05-08 05:39 | XMS_ITS | Clinical Summary ---
Author Organization [facility] Address [address] [address] [address] [place] [address] Phone Care Team Providers Care Otr Refrigerated Cdl Truck Driver Name Role Phone Unavailable Primary Care Provider [...] Health Maintenance Due Date Last Done Comments Colorectal Cancer Screening: Annual FOBT 2014 Colorectal Cancer Screening: Colonoscopy 2014 Colorectal Cancer Screening: Sigmoidoscopy 2014 Pneumococcal Vaccine: 50+ Ye ars (1 of 1 - PCV) 2015 Diabetes: Hemoglobin A1C 08/09/2020 Diabetes: Ophthalmology Exam 08/09/2020 Diabetes: Pedal Pulse Checked 08/09/2020 Diabetes: Sensory Foot Exam 08/09/2020 Diabetes: Visual Foot Exam 08/09/2020 Influenza Vaccine (#1) 2025 Hepatitis B Vaccine Aged Out No longe r eligible based on patient's age to complete this topic [place]
--- OUTSIDE RECORDS SUMMARY | 2025-05-08 05:39 | XMS_ITS | Encounter Summary ---
Author Organization [employer] Address [address] [place] [address] 7t [place] [address] Care Team Providers Care Cat Scan Tech Name Role Phone Flora Santiago Primary Care Provider Sherin Hall RN Unavailable [phone] Juan Jose Deshpande MD Unavailable [phone] Michael Glass MD Unavailable [phone] Demetrius Austin MD Unavailable Harry Garcia MD Unavailable [phone] Jovany Feliciano MD Unavailable [phone] Kandi PandaD Unavailable [phone] Angelica Saenz Unavailable Mao Palomino DDS Unavailable [phone] Reason for Visit * Reason Comments Transition Of Care (Tcm) [facility] scheduled a nd SDOH screening completed on 12/08/24 Encounter Details Date Type Department Care Team (Late st Contact Info) Description 05/04/2025 Patient Outreach [facility] MEDICINE [address] [place] [address] Flora Santiago FNP [address] [place], [place] [phone] Transition Of Care (Tcm) (HDF scheduled and SDOH screening completed on 12/08/24 ) Social History Tobacco Use Types Packs/Day Years [...] as of this encounter Miscellaneous Notes * Significant Event - Gorge Mckeon - 05/04/2025 8:18 AM EDT 05/04/25 0817 Hospital Discharges and Admission for [facility] Type of Visit Hospital Admission Date of Admission/Visit 03/18/25 Date of Discharge 04/29/25 [facility] Diagnosis alcohol use, hypertension, GERD, mixed hyperlidiemia, Diabetes type 2, Varices OF OT SITES, Disposition Discharged Home Follow-Up Actions Follow-Up Needed Provider appointment Follow-Up Outcome Spoke to Patient;Booked Appointment Initial Contact Date 05/04/25 TYRON Griffin placed outbound call to patient for HDF outreach. Patient's name and were confirmed. Patient educated on the importance of follow up with provider following inpatient admission. Patient offered an HDF appt. Patient is agreeable to an appointment and has been scheduled for 05/12/25 at2pm with Flora Santiago CUSHION MAT MAKER. Insurance verified prior to scheduling. Patient also notified that a health center pharmacist will be reaching out to them via telephone prior to their scheduled appointment in order to review their medications in preparation for their appointment. Patient advised to bring to appointment a photo id and insurance card. Patient provided with education on contacting the Health Center with any questions or concerns prior to the scheduled appointment. Patient educated on extended clinic hours on Mondays and Wednesdays, and Walk-In Urgent Care Located in [facility]. Patient provided with after-hours line for [facility], , which offer night time triage service andoption to transfer to turkey boner provider if needed. Discharge summary has been scanned into chart. Biggest concern for appointment at this time is no concerns. Appropriate screenings completed in anticipation of appointment. documented in this encounter Plan of Treatment Upcoming Encounters Date Type Department Care Team (Late st Contact Info) Description 05/08/2025 1:00 PM EDT Office Visit [facility] MEDICINE [address] [place] [address] Doug Fay MD 230 [place] [address] 05/15/2025 2:00 PM EST Office Visit [facility] CHC MED & PEDS 505 [place] [address] Flora Santiago FNP 505 [place] [address] 05/18/2025 3:30 PM EST Medication Management [facility] MEDICINE [address] [place] [address] Kandi Panda, Fredrick [address] [place] [address] documented as of this encounter Goals Goal [...] documented as of this encounter Care Teams Cat Scan Tech Relationship Specialty Start Date End Date Flora Santiago FNP [address] [place] [address] PCP - General Family Medicine 05/02/21 Sherin Hall, RN [address] [place] [address] Watch Assembly Instructor Family Medicine 07/30/23 Juan Jose Deshpande MD [address] [place] [address] Nephrology 06/13/24 Michael Glass MD [address] [place] [address] Dr [address] [place] [address] General Surgery 06/13/24 Demetrius Austin MD [address] [place] [address] Orthopaedic Surgery 06/13/24 Harry Garcia MD [address] [address] Gastroenterology 06/13/24 Jovany Feliciano MD [address] [place] [address] Cardiology 06/13/24 Kandi Panda, Fredrick [address] [place] [address] Pharmacist Internal Medicine 08/18/24 Angelica Saenz [address] [place], [place] [phone] Dental Hygienist Dental Chinese Herbalist 08/20/24 Mao Palomino DDS [address] [place] [id number] Dentist Dental Chinese Herbalist 08/20/24 documented as of this encounter
--- OUTSIDE RECORDS SUMMARY | 2025-05-08 05:39 | XMS_ITS | Encounter Summary ---
Author Organization [employer] Address [address] [facility] 7t [place] [address] Care Team Providers Care Physician Assistant Surgery Name Role Phone Flora Santiago Primary Care Provider Sherin Hall RN Unavailable [phone] Juan Jose Deshpande MD Unavailable [phone] Michael Glass MD Unavailable [phone] Demetrius Austin MD Unavailable Harry Garcia MD Unavailable [phone] Jovany Feliciano MD Unavailable Kandi Panda PharmD Unavailable Angelica Saenz Unavailable Mao Palomino DDS Unavailable [phone] Reason for Visit * Reason Comments Med Refill Encounter Details Date Type Department Care Team (Late st Contact Info) Description 09/10/[address] [facility] [address] [place] [address] Flora Santiago FNP [address] [place], [place] [phone] Social History Tobacco Use Types Packs/Day Years [...] 05/08/2025 1:00 PM EDT Office Visit [facility] MEDICINE [address] [place] [address] Doug Fya MD 230 [place] [address] 05/15/2025 2:00 PM EST Office Visit [facility] CHC MED & PEDS 505 [place] [address] Flora Santiago FNP [address] [place] [address] 05/18/2025 3:30 PM EST Medication Management [facility] MEDICINE [address] [place] [address] Kandi Panda PharmD 230 [place] [address] documented as of this encounter Goals Goal [...] documented as of this encounter Care Teams Physician Assistant Surgery Relationship Specialty Start Date End Date Flora Santiago FNP 230 [place] [address] PCP - General Family Medicine 05/02/21 Sherin Hall, RN 230 [place] [address] Sammying Machine Operator Family Medicine 07/30/23 Juan Jose Deshpande MD [address] [place] [address] Nephrology 06/13/24 Michael Glass MD [address] [place] [address] Dr 3rd [place] [address] General Surgery 06/13/24 Demetrius Austin MD [address] [place] [address] Orthopaedic Surgery 06/13/24 Harry Garcia MD [address] 3rd [place] [address] Gastroenterology 06/13/24 Jovany Feliciano MD [address] 3rd Floor [place] [address] Cardiology 06/13/24 Kandi Panda PharmD [address] [facility] [place] [address] Pharmacist Internal Medicine 08/18/24 Angelica Saenz [address] [place] [address] Dental Hygienist Dental Cement Block Maker 08/20/24 Mao Palomino DDS [address] [facility] [place] [place] [address] Dentist Dental Cement Block Maker 08/20/24 documented as of this encounter
--- OUTSIDE RECORDS SUMMARY | 2025-05-08 05:39 | XMS_ITS | Encounter Summary ---
Author Organization [employer] Address [address] [facility] 7t [place] [address] Care Team Providers Care Celery Tier Name Role Phone Flora Santiago EXCHANGE ENGINEER Primary Care Provider [phone] Sherin Hall RN Unavailable [phone] Juan Jose Deshpande MD Unavailable [phone] Michael Glass MD Unavailable [phone] Demetrius Austin MD Unavailable Harry Garcia MD Unavailable [phone] Jovany Feliciano MD Unavailable [phone] Kandi Panda PharmD Unavailable [phone] Angelica Saenz Unavailable Mao Palomino DDS Unavailable [phone] Encounter Details Date Type Department Care Team (Late st Contact Info) Description 05/25/2023 Abstract [facility] MEDICINE 230 [place] [address] Debi Zamora Social History Tobacco Use Types [...] Description 05/08/2025 1:00 PM EDT Office Visit [facility] MEDICINE [address] [place] [address] Doug Fay MD 230 [place] [address] 05/15/2025 2:00 PM EST Office Visit [facility] CHC MED & PEDS 505 [place] [address] Flora Santiago FNP 505 [place] [address] 05/18/2025 3:30 PM EST Medication Management [facility] MEDICINE [address] [place] [address] Kandi Panda, RobertD 230 [place] [address] documented as of this encounter Procedures Procedure Name Priority Date/Time Associated Diagnosis Comments COLONOSCOPY Routine 03/17/2021 documented in this encounter Results * Colonoscopy (03/17/2021) Colonoscopy Normal Normal Narrative Debi Zamora - 03/17/2021 Repeat in 5 years tubular adenoma us Historical Provider HEALTH MAINTENANCE Final Result documented in this encounter Visit Diagnoses Not on filedocumented in this encounter Care Teams Celery Tier Relationship Specialty Start Date End Date Vanekeeley FloraCIARRA 230 [place] [address] PCP - General Family Medicine 05/02/21 Sherin Hall, RN [address] [place] [address] Makeup Artist Family Medicine 07/30/23 Juan Jose Deshpande MD [address] [place] [address] Nephrology 06/13/24 Michael Glass MD [address] [place] [address] Dr [address] [place] [address] General Surgery 06/13/24 Demetrius Austin MD [address] [place] [address] Orthopaedic Surgery 06/13/24 Harry Garcia MD [address] [place] [address] Gastroenterology 06/13/24 Jovany Feliciano MD [address] [place] [address] [place] [address] Cardiology 06/13/24 Kandi Panda PharmD [address] [place] [address] Pharmacist Internal Medicine 08/18/24 Angelica Saenz 230 [place] [address] Dental Hygienist Dental English Division Chair 08/20/24 Mao Palomino DDS [address] [place] [address] Dentist Dental English Division Chair 08/20/24 documented as of this encounter
[2025-05-08 06:38] VITALS: BP 127/71; PULSE 97; RESP 18; TEMP 36.8; O2SAT 96
[2025-05-08 09:10] LABS: Cannabinoid Screen Urine Not Detected (Not Detect)
[2025-05-08 10:14] VITALS: BP 127/71; PULSE 97; RESP 18; TEMP 36.8; O2SAT 96
== END 2025-05-08 10:16 | disposition home or self-care (01) ==
PROVIDERS: Emergency Provider Emergency Medicine; PCP Registered Nurse
DX: S01.111A Laceration without foreign body of right eyelid and periocular area, initial encounter (principal); W01.0XXA Fall on same level from slipping, tripping and stumbling without subsequent striking against object, initial encounter; Y93.9 Activity, unspecified; Y92.9 Unspecified place or not applicable; Y99.9 Unspecified external cause status; F10.129 Alcohol abuse with intoxication, unspecified; Y90.8 Blood alcohol level of 240 mg/100 ml or more
CPT/HCPCS: 36415; 70450; 72125; 80053; 80307; 83735; 84484; 85025; 85610; 93005; 99284

== ENCOUNTER → 2025-05-08 04:37 | Outpatient (BNV) | payer MEDICAID, SELFPAY | PROVIDERS: Emergency Provider Emergency Medicine; PCP Registered Nurse; Visit Provider Internal Medicine | DX: R00.0 Tachycardia, unspecified (principal) | CPT/HCPCS: 93010 ==

== ENCOUNTER → 2025-05-08 04:59 | Outpatient (BNV) | payer MEDICAID, SELFPAY | PROVIDERS: Emergency Provider Emergency Medicine; PCP Registered Nurse; Visit Provider Radiology Vascular & Interventional Radiology | DX: F10.10 Alcohol abuse, uncomplicated (principal); W18.39XA Other fall on same level, initial encounter | CPT/HCPCS: 70450; 72125 ==

== ENCOUNTER 2025-06-25 14:39 | Outpatient (AMB) | payer MEDICARE, MEDICAID, SELFPAY ==
--- OUTSIDE RECORDS SUMMARY | 2025-05-29 08:00 | XMS_ITS | Encounter Summary ---
Author Organization [facility] Address [address] [place] [address] [address] [place] [address] Care Team Providers Care Raise Driller Name Role Phone Flora Santiago SIMULATION DEVELOPER Primary Care Provider [phone] Sherin Hall RN Unavailable [phone] Juan Jose Deshpande MD Unavailable [phone] Michael Glass MD Unavailable [phone] Demetrius Austin MD Unavailable Harry Garcia MD Unavailable [phone] Jovany Feliciano MD Unavailable [phone] Kandi Panda PharmD Unavailable [phone] Angelica Saenz Unavailable Mao Palomino DDS Unavailable [phone] Reason for Visit * Reason Comments Routine Cleaning Dental Exam x-rays Encounter Details Date Type Department Care Team (Latest Contact Info) Description 05/29/2025 8:00 AM EST Office Visit [facility] [address] [place], [place] [id number] Dany, Angelica [address] [place], [place] [phone] Extruded tooth (Primary Dx); Stage 4 grade B localized periodontitis per AAP/EFP 2017 classification; Dental calculus; Localized gingival recession; Chronic periodontitis; Tipped teeth Social History Tobacco Use Types Packs/Day Years Used Date Smoking Tobacco: Never Passive Smoke Exposure: Never Smokeless Tobacco: Never Alcohol Use Standard Drinks/Week Comments Never 0 (1 standard drink = 0.6 oz pur e alcohol) Alcohol Answer Date Recorded How often do you have a drink containing alcohol ? 1 05/15/2025 How many drinks containing a lcohol do you have on a typical day when you are drinking? 0 05/15/2025 How often do you have six or more drinks on one occasion? 0 05/15/2025 Depression Answer Date Recorded Patient Health Questionnaire-9 [...] Sign Reading Time Taken Comments Blood Pressure 140/86 05/29/2025 7:50 AM EST Pulse - - Temperature - - Respiratory Rate - - Oxygen Saturation - - Inhaled Oxygen Concentration - - Weight - - Height - - Body Mass Index - - documented in this encounter Progress Notes * Angelica Saenz - 05/29/2025 8:00 AM EST Patient ID: Steven Stanley is a 60 y.o. male. Time Out: Timeout Date: 05/29/25, Timeout Time: 758 (x-rays, P. exam, Prophy, Perio chart) Location: [facility] Tooth: Maxilla and Mandible Procedure: Exam, X-rays, Prophylaxis, and Perio chart Verified the above with patient, assistant administrator, and provider. Confirmed via patient's chart, intraorally and by radiographs. Manufacturing Storeperson: not applicable Medical Hx: Vitals: Blood pressure (!) 140/86. Medications, Med Hx reviewed with patient and updated in chart. Treatment Provided Dental procedures in this visit D0274 - BITEWINGS - 4 RADIOGRAPHIC IMAGES (Completed) Service provider: Angelica Saenz Billchristopher provider: Mao Palomino DDS D0220 - INTRAORAL - PERIAPICAL FIRST RADIOGRAPHIC IMAGE (Completed) Service provider: Angelica Saenz Billchristopher provider: Mao Palomino DDS D0230 - INTRAORAL - PERIAPICAL EACH ADDITIONAL RADIOGRAPHIC IMAGE (Completed) Service provider: Angelica Saenz Billchristopher provider: Mao Palomino DDS D1110 - PROPHYLAXIS - ADULT (Completed) Service provider: Angelica Saenz Billchristopher provider: Mao Palomino DDS D0180 - COMPREHENSIVE PERIODONTAL EVALUATION - NEW OR ESTABLISHED PATIENT Instruments Used: Ultrasonic Scalers, Hand Scalers, and Prophy angle Oral Cancer Screening: No lesions Head/Neck Exam: facial dark moles Calculus: Moderate and Generalized Plaque: Moderate and Generalized Stain: discolored Bleeding: Light and Moderate Gingiva: Recession- localized and pink OH: Fair Perio Chart: Completed: improved, still exhibiting deep pockets on #s 2,3,5,9,19,20,21,22,23,27,31,#2 is the deepest up to 9 mm, Asymptomatic , no significant mobility detected. Oral hygiene instructions provided to patient including brushing technique and flossing. Recommendations: [place] two times daily, modified hinkle technique, Floss daily, Electric toothbrush, Soft bristle toothbrush, [place] Tongue, Anti-sensitivity toothpaste, Listerine if bleeding Recall Frequency: 6 mo NV: 6 months prophy Hygienist: Angelica Saenz RDH * Mao Palomino DDS - 05/29/2025 8:00 AM EST Dental procedures in this visit D0274 - BITEWINGS - 4 RADIOGRAPHIC IMAGES (Completed) Service provider: Angelica Saenz Billing provider: Mao Palomino DDS D0220 - INTRAORAL - PERIAPICAL FIRST RADIOGRAPHIC IMAGE (Completed) Service provider: Angelica Saenz Billing provider: Mao Palomino DDS D0230 - INTRAORAL - PERIAPICAL EACH ADDITIONAL RADIOGRAPHIC IMAGE (Completed) Service provider: Angelica Saenz Billing provider: Mao Palomino DDS D1110 - PROPHYLAXIS - ADULT (Completed) Service provider: Angelica Saenz Billchristopher provider: Mao Palomino DDS D0180 - COMPREHENSIVE PERIODONTAL EVALUATION - NEW OR ESTABLISHED PATIENT (Completed) Service provider: Mao Palomino DDS Billchristopher provider: Mao Palomino DDS D0120 - PERIODIC ORAL EVALUATION - ESTABLISHED PATIENT (Completed) Service provider: Mao Palomino DDS Billchristopher provider: Mao Palomino DDS Patient ID: Steven Stanley is a 60 y.o. male. Time Out: Timeout Date: 05/29/25, Timeout Time: 0759 (x-rays, P. exam, Prophy, Perio chart) Location: [facility] Tooth: Maxilla and Mandible Procedure: Exam, X-rays, and Prophylaxis Verified the above with patient, assistant administrator, and provider. Confirmed via patient's chart, intraorally and by radiographs. Manufacturing Storeperson: not applicable Chief Complaint Patient presents with Routine Cleaning Dental Exam x-rays Medical Hx: Vitals: Blood pressure (!) 140/86. Medical History[1] Medications: Encounter Medications[2] Objective HPI Asymptomatic Head and Neck Exam: Lymph Nodes, Lips, Palate, Buccal Mucosa, Floor of Mouth, Tongue, Tonsils, Alveolar Ridges, Oropharynx, Salivary Ducts, and Vestibules normal appearance Details: Skin wart on left menton region OCS: negative Dental Exam As charted Deep pockets Mesial angle and extruded molars Poor prognosis for #s 2,3,31 Tooth impaction No new carious lesion noticed Reference tooth chart for additional findings. Oral Cancer Risk: Moderate Risk cancer family history Oral Hygiene Instructions: [employer] [place] two times daily, modified hinkle technique, Floss daily, Electric toothbrush, Soft bristle toothbrush, [place] Tongue Caries Risk Assessment: Medium- one risk factor and Low- no risk factor Assessment/Plan JA X rays Prophy CPE Apply for P.A. Monitor impacted mina. S.N. third molars Patient tolerated procedure well, all questions answered and expressed understanding. Dismissed in good condition. NV: SRP when approved Mathematical Engineer: Angelica Saenz Dentist: Mao Palomino DDS [1] Past Medical History: Diagnosis Date Acute pancreatitis 09/28/2022 Bladder stones Bleeding gums Diabetes mellitus (HCC) History of rheumatic fever Hypertension Liver disease Periodontal disease [2] Outpatient Encounter Medications as of 05/29/2025 Medication Sig Dispense Refill acamprosate (Campral) 333 MG EC tablet Take 2 tablets (666 mg) by mouth 2 times daily. Do not crush, chew, or split. 120 tablet 2 Alcohol Swabs (Alcohol Prep) 70 % pads USE DIRECTED FOUR TIMES DAILY B Complex Vitamins (Vitamin-B Complex) tablet Take 1 tablet by mouth Once per day. beta carotene (vitamin A) 3 MG (97545 UT) capsule Take 10,000 Units by mouth in the morning. Blood Pressure kit Use to check blood pressure once daily and when symptomatic 1 kit 0 cholecalciferol VITAMIN D (Vitamin D-3) 50 MCG (2000 UT) tablet TAKE 1 TABLET BY MOUTH EVERY EVENING 90 tablet 3 Continuous Glucose Steel Burner (FreeStyle Bill 3 [place]) device 1 each Once per day. Use as directed for CGM 1 each 0 Continuous Glucose Sensor (FreeStyle Bill 3 Plus Sensor) misc 1 each every 15 days. Apply 1 every 15 days as directed for CGM 2 each 11 Diclofenac Sodium 1 % gel APPLY 2 GRAMS TOPICALLY TO AFFECTED AREA(S) TWICE DAILY NEEDED 100 g 2 Embecta Pen Needle Ultrafine 31G X 5 MM misc USE DIRECTED FOUR TIMES DAILY 100 each 11 eplerenone (Inspra) 50 MG tablet TAKE 1 TABLET BY MOUTH EVERY MORNING 90 tablet 1 glucose blood (FreeStyle Precision Ric Test) test strip USE DIRECTED TO TEST BLOOD SUGAR THREE TIMES DAILY 100 each 11 HumuLIN R 100 UNIT/ML injection INJECT SUBCUTANEOUSLY THREE TIMES DAILY AFTER BREAKFAST, LUNCH, ANDDINNER PER SLIDING SCALE 150-200 = 2 UNITS, 201-250 = 4 UNITS, 251-300 = 6 UNITS, 301-350 = 8 UNITS, 351-400 = 10 UNITS, 401-450 = 12 UNITS, > 450 = CALL DOCTOR insulin glargine (Lantus SoloStar) 100 UNIT/ML pen Inject 25 Units under the skin at bedtime. Jardiance 25 MG TAKE 1 TABLET BY MOUTH EVERY MORNING 30 tablet 3 lisinopril 10 MG tablet Take 1 tablet (10 mg) by mouth Once per day. 90 tablet 3 pantoprazole (ProtoNix) 40 MG EC tablet Take 1 tablet by mouth Once per day. Praluent 75 MG/ML injection INJECT 75 MG SUBCUTANEOUSLY EVERY 2 WEEKS. ROTATE INJECTION SITES SURE COMFORT INS SYR 1CC/30G 30G X 5/16 1 ML misc USE 1 SYRINGE SUBCUTANEOUSLY THREE TIMES DAILY thiamine (Vitamin B-1) 100 MG tablet Take 100 mg by mouth 2 times daily. triamcinolone (Kenalog) 0.1 % cream APPLY TO THE AFFECTED AREA(S) TOPICALLY TWICE DAILY IN THE MORNING AND AT BEDTIME 30 g 0 TRUEplus Lancets 33G misc TEST BLOOD SUGAR THREE TIMES DAILY 100 each 11 cetirizine (ZyrTEC) 5 MG tablet Take 1 tablet (5 mg) by mouth at bedtime. (For allergies) (Patient not taking: Reported on 05/29/2025) 90 tablet 1 zinc sulfate (Zincate) 220 (50 Zn) MG capsule Take 50 mg of elemental zinc by mouth in the morning.(Patient not taking: Reported on 05/29/2025) No facility-administered encounter medications on file as of 05/29/2025. documented in this encounter Plan of Treatment Upcoming Encounters Date Type Department Care Team (Late st Contact Info) Description 07/13/2025 9:30 AM EST Medication Management [facility] [address] [place] [address] Kandi Panda PharmD [address] [place] [phone] 08/21/2025 1:15 PM EST Office Visit [facility] [address] [place] [id number] Doug Fay MD [address] [place] [phone] 11/27/2025 8:00 AM EDT Office Visit [facility] [address] [place] [address] Angelica Saenz [address] [place] [address] Scheduled Orders Name Type Priority Associated Diagnoses Orde r Schedule Full Full PROPHYLAXIS - ADULT Dental Routine [address] arting 05/29/2025 CASE PRESENTATION, DETAILED AND EXTENSIVE TREATMENT PLANNING Dental Routine 1 Occurrences starting 05/29/2025 documented as of this encounter Goals Goal Patient Goal Type Associated Problems Recent Progress Patient-Stated? Author Blood Pressure < 140/90 Blood Pressure 140/86(2024 7:50 AM EST) No Jose Maria Novak Hemoglobin A1c < 7 Result Component 9.7( 2:46 PM EST) No Jose Maria Novak Help patients manage their type 2 diabetes Care Plan Help patients manage their type 2 diabetes No Adi Shrestha Weekly blood pressure task Care Plan Weekly blood pressure task No Adi Shrestha Help patients manage their type 2 diabetes Care Plan Help patients manage their type 2 diabetes No Adi Shrestha Patient has chronic kidney disease Care Plan Patient has chronic kidney disease No Adi Shrestha Weekly blood pressure task Care Plan Weekly blood pressure task No Adi Shrestha Patient has chronic kidney disease Care Plan Patient has chronic kidney disease No Adi Shrestha Weekly blood pressure task Care Plan Weekly blood pressure task No Divya Amos MD Weekly blood pressure task Care Plan Weekly blood pressure task No Divya Amos MD Patient has chronic kidney disease Care Plan Patient has chronic kidney disease No Divya Amos MD Patient has chronic kidney disease Care Plan Patient has chronic kidney disease No Divya Amos MD Weekly blood pressure task Care Plan Weekly blood pressure task No Alison Hall MA Weekly blood pressure task Care Plan Weekly blood pressure task No Alison Hall [place] Patient has chronic kidney disease Care Plan Patient has chronic kidney disease No Alison Hall [place] Patient has chronic kidney disease Care Plan Patient has chronic kidney disease No Alison Hall MA Weekly blood pressure task Care Plan Weekly blood pressure task No Nighat Lofton MA Weekly blood pressure task Care Plan Weekly blood pressure task No Nighat Lofton [place] Patient has chronic kidney disease Care Plan Patient has chronic kidney disease No Nighat Lofton [place] Patient has chronic kidney disease Care Plan Patient has chronic kidney disease No Nighat Lofton [place] Weekly blood pressure task Care Plan Weekly blood pressure task No Anders Jack Weekly blood pressure task Care Plan Weekly blood pressure task No JackAngelesrylee Patient has chronic kidney disease Care Plan Patient has chronic kidney disease No JackAngelesrylee Patient has chronic kidney disease Care Plan Patient has chronic kidney disease No JackAngelesrylee Weekly blood pressure task Care Plan Weekly blood pressure task No DriscollDawoodga, RODEO CLOWN Weekly blood pressure task Care Plan Weekly blood pressure task No DriscollDawoodga, RODEO CLOWN Patient has chronic kidney disease Care Plan Patient has chronic kidney disease No DriscollDawoodga, RODEO CLOWN Patient has chronic kidney disease Care Plan Patient has chronic kidney disease No Dawood Driscollga, RODEO CLOWN Weekly blood pressure task Care Plan Weekly blood pressure task No Edward Santcaruzr [place] Weekly blood pressure task Care Plan Weekly blood pressure task No Noam Molly, [place] Patient has chronic kidney disease Care Plan Patient has chronic kidney disease No Noam Molly [place] Patient has chronic kidney disease Care Plan Patient has chronic kidney disease No Noam Molly [place] Weekly blood pressure task Care Plan Weekly blood pressure task No Dany Angelica Weekly blood pressure task Care Plan Weekly blood pressure task No Dany Angelica Patient has chronic kidney disease Care Plan Patient has chronic kidney disease No Dany Angelica Patient has chronic kidney disease Care Plan Patient has chronic kidney disease No Dany Angelica Weekly blood pressure task Care Plan Weekly blood pressure task No Shahnaz Perez LPN Weekly blood pressure task Care Plan Weekly blood pressure task No Shahnaz Perez LPN Patient has chronic kidney disease Care Plan Patient has chronic kidney disease No Shahnaz Perez LPN Patient has chronic kidney disease Care Plan Patient has chronic kidney disease No Shahnaz Perez LPN documented as of this encounter Procedures Procedure Name Priority Date/Time Associated Diagnosis Comments PROPHYLAXIS - ADULT Routine 05/29/2025 8 :00 AM EST Extruded tooth Stage 4 grade B localized periodontitis per AAP/EFP 2017 classification Dental calculus Localized gingival recession Chronic periodontitis PERIODIC ORAL EVALUATION - ESTABLISHED PATIENT Routine 05/29/2025 8:00 AM EST INTRAORAL - PERIAPICAL FIRST RADIOGRAPHIC IMAGE Routine 05/29/2025 8:00 AM EST Extruded tooth Stage 4 grade B localized periodontitis per AAP/EFP 2017 classification Dental calculus Localized gingival recession Chronic periodontitis INTRAORAL - PERIAPICAL EACH ADDITIONAL RADIOGRAPHIC IMAGE Routine 05/29/2025 8:00 AM EST Extruded tooth Stage 4 grade B localized periodontitis per AAP/EFP 2017 classification Dental calculus Localized gingival recession Chronic periodontitis COMPREHENSIVE PERIODONTAL EVALUATION - NEW OR ESTABLISHED PATIENT Routine 05/29/2025 8:00 AM EST BITEWINGS - 4 RADIOGRAPHIC IMAGES Routine 05/29/2025 8:00 AM EST Extruded tooth Stage 4 grade B localized periodontitis per AAP/EFP 2017 classification Dental calculus Localized gingival recession Chronic periodontitis documented in this encounter Visit Diagnoses Diagnosis Extruded tooth- Primary Vertical displacement of teeth Stage 4 grade B localized periodontitis per AAP/EFP 2017 classification Dental calculus Accretions on teeth Localized gingival recession Gingival recession, localized Chronic periodontitis Chronic periodontitis, unspecified Tipped teeth Horizontal displacement of teeth documented in this encounter Additional Health Concerns Active Problems Noted Date Diagnosed Date Help patients manage their type 2 diabetes 05/20 Weekly blood pressure task 05/20/2025 Help patients manage their type 2 diabetes 05/20 Patient has chronic kidney disease 05/20/2025 Weekly blood pressure task 05/20/2025 Patient has chronic kidney disease 05/20/2025 Weekly blood pressure task 05/20/2025 Weekly blood pressure task 05/20/2025 Patient has chronic kidney disease 05/20/2025 Patient has chronic kidney disease 05/20/2025 Weekly blood pressure task 05/22/2025 Weekly blood pressure task 05/22/2025 Patient has chronic kidney disease 05/22/2025 Patient has chronic kidney disease 05/22/2025 Weekly blood pressure task 05/27/2025 Weekly blood pressure task 05/27/2025 Patient has chronic kidney disease 05/27/2025 Patient has chronic kidney disease 05/27/2025 Weekly blood pressure task 05/27/2025 Weekly blood pressure task 05/27/2025 Patient has chronic kidney disease 05/27/2025 Patient has chronic kidney disease 05/27/2025 Weekly blood pressure task 05/28/2025 Weekly blood pressure task 05/28/2025 Patient has chronic kidney disease 05/28/2025 Patient has chronic kidney disease 05/28/2025 Weekly blood pressure task 05/28/2025 Weekly blood pressure task 05/28/2025 Patient has chronic kidney disease 05/28/2025 Patient has chronic kidney disease 05/28/2025 Weekly blood pressure task 05/29/2025 Weekly blood pressure task 05/29/2025 Patient has chronic kidney disease 05/29/2025 Patient has chronic kidney disease 05/29/2025 Weekly blood pressure task 06/12/2025 Weekly blood pressure task 06/12/2025 Patient has chronic kidney disease 06/12/2025 Patient has chronic kidney disease 06/12/2025 Assessment Noted Time PHQ-9 Depression Total Score: 0 12/09/19 1:28 PM EDT documented as of this encounter Care Teams Raise Driller Relationship Specialty Start Date End Date Flora Santiago FNP [address] [place] [address] PCP - General Family Medicine 05/02/21 Sherin Hall, RN [address] [place] [address] Utility Operator Family Medicine 07/30/23 Juan Jose Deshpande MD [address] [place] [address] Nephrology 06/13/24 Michael Glass MD [address] [place] [address] [address] [place] [address] General Surgery 06/13/24 Demetrius Austin MD [address] [place] [address] Orthopaedic Surgery 06/13/24 Harry Garcia MD [address] [place] [address] Gastroenterology 06/13/24 Jovany Feliciano MD [address] [place] [address] Cardiology 06/13/24 Kandi Panda PharmD [address] [place] [address] Pharmacist Internal Medicine 08/18/24 Angelica Saenz [address] [place] [address] Dental Hygienist Dental Manager Inventory Management 08/20/24 Mao Palomino DDS [address] [place] [address] Dentist Dental Manager Inventory Management 08/20/24 documented as of this encounter
[2025-06-25 14:44] VITALS: BP 130/70; PULSE 80; O2SAT 98; BMI 30.4
--- NOTE | 2025-06-25 14:44 | HO.NEPHOV_ITS ---
Vital Signs 06/25/25 14:44 Height 5 ft 8 in Weight 200 lb BMI 30.4 BP 130/70 Blood Pressure Location Lt brachial Position Sitting Pulse 80 Pulse Source Pulse Oximeter Pulse Oximetry (%) 98 Oxygen Delivery Method Room Air Intake Visit Reasons: 6 MO FU Wheel Filler Required: No Accompanied by: Self / Same As Patient Allergies shrimp Allergy (Severe, Verified 06/25/25 14:45) Difficulty Breathing atorvastatin (ATORVASTATIN) Adverse Reaction (Intermediate, Verified 06/25/25 14:45) elevated LFTs Medication List - Last Reconciled 06/25/25 by Juan Jose Deshpande MD acamprosate 666 mg PO BID alirocumab (Praluent Pen) INJECT 75 MG (1 PEN) SUBCUTANEOUSLY EVERY 2 WEEKS, ROTATE INJECTION SITES blood sugar diagnostic (FreeStyle Lite Strips) As directed cholecalciferol (vitamin D3) 50 mcg PO DAILY cyclobenzaprine 5 mg PO TID PRN diclofenac sodium 1% 2 grams topical BID PRN empagliflozin (Jardiance) 25 mg PO QAM eplerenone (Inspra) 50 mg PO QAM flash glucose sensor (FreeStyle Bill 2 Sensor kit) As directed folic acid 1 mg PO DAILY insulin degludec (Tresiba FlexTouch U-100 insulin) 20 units subcut BEDTIME insulin glargine (Lantus Solostar U-100 Insulin) 25 units subcut BEDTIME insulin lispro (Humalog KwikPen (U-100) Insulin) 1 sliding scale dose subcut TIDAC lancets (TRUEplus Lancets) As directed pantoprazole 40 mg PO QAM pen needle, diabetic (Sure Comfort Pen Needle) As directed rifaximin 550 mg PO TID 2 weeks vitamin A 1 cap PO QPM vitamin B complex-folic acid 0.4 mg (B Complex 1 (with folic acid)) 1 tab PO QAM zinc sulfate 50 mg PO QPM HPI Comments Details: History of Present Illness The patient is a 60 year old male presenting for a follow-up visit for management of his chronic conditions. His past medical history is significant for hypertension, fibromyalgia, nonalcoholic steatohepatitis, and type 2 diabetes. Approximately two weeks ago, the patient experienced an episode of dyspnea and felt generally unwell, which was followed by swelling in both his hands and feet. The swelling resolved overnight with leg elevation. The patient also reports ongoing abdominal pain and has noticed an increase in his abdominal girth. He is currently awaiting an abdominal ultrasound that was ordered by his utility plant operative. He denies any trouble with urination, diarrhea, or constipation. An echocardiogram performed in August of this year revealed moderate aortic stenosis. Blood tests from April showed stable kidney function. Results - Labs: Blood tests from April showed stable kidney function. - Tests and Diagnostics: An echocardiogram from August of this year showed moderate aortic stenosis. [facility] Medical History History of abdominal paracentesis Diabetes Back pain GERD (gastroesophageal reflux disease) Cirrhosis CAD (coronary artery disease) Palpitations Arthritis Fibromyalgia SALGUERO (nonalcoholic steatohepatitis) Fatty liver Depression Hyperlipidemia, unspecified Type 2 diabetes mellitus with unspecified complications Essential hypertension Atherosclerotic cardiovascular disease Surgical History History of umbilical hernia repair (05/23/24) History of abdominal paracentesis Hx of cholecystectomy History of umbilical hernia repair Hx of endoscopy History of colonoscopy History of ankle surgery Left inguinal hernia (05/04/23) Gallstone Family History Father Diabetes Mother No problems noted. Social History Household Members: Spouse Housing: House Are you a primary healthcare representative to a significant other at home: No Do you presently have visiting nurse or other home services: No Alcohol intake: current Alcohol intake frequency: 0-2 drinks per day Alcohol type: beer Comment: pt medicated Patient Tobacco Use Status: Current someday Tobacco user Tobacco use type: Cigar service: No Current occupational status: employed Current occupation: [employer] Physical Exam Exam Exam: Physical Exam General: Awake. Comfortable. HENT: Neck supple. Mucosa moist. Pulmonary: Lungs aeration equal. No rales. Cardiology: Heart S1-S2 heard. Moderate aortic stenosis noted. No gallop. Abdomen: Soft. Non tender. Bowel sounds normal. Awaiting sonograph due to reported pain. Neurologic: No involuntary movements. No myoclonus. Extremities: No edema. No rash. Vital Signs: Last Vital Signs Pulse 80 06/25/25 14:44 BP 130/70 06/25/25 14:44 Pulse Ox 98 06/25/25 14:44 Oxygen Delivery Method Room Air 06/25/25 14:44 BMI result Body Mass Index 30.4 Results Reviewed Nephrology Results: Hgb, (14.0-18.0) 13.6 g/dl L 05/08/25 WBC, (4.8-10.8) 8.7 X10*3/uL 05/08/25 Plt Count, (160-400) 184 X10*3/uL 05/08/25 Sodium, (135-145) 141 mmol/L 05/08/25 Potassium, (3.3-5.1) 4.1 mmol/L 05/08/25 Chloride, (96-108) 104 mmol/L 05/08/25 Carbon Dioxide, (22-29) 21 mmol/L L 05/08/25 BUN, (9-16) 8 mg/dL L 05/08/25 Creatinine, (0.5-1.4) 0.98 mg/dL 05/08/25 Calcium, (8.4-10.2) 9.1 mg/dL 05/08/25 Urine Protein, (Neg-Trace) Trace mg/dL 12/15/24 Assessment & Plan Assessment & Plan (1) CKD stage 3a, GFR 45-59 ml/min: Code(s): N18.31 - Chronic kidney disease, stage 3a Category: Medical Plan Plan 1. Chronic Kidney Disease - The patient's kidney function is stable, as per blood tests from April. - No changes will be made to his current regimen. - He should continue taking Jardiance. - A follow-up visit is scheduled in 6 months. 2. Type 2 Diabetes Mellitus - The patient was advised to maintain good glycemic control. - He will continue taking Jardiance to help his kidneys. 3. Abdominal Pain - The patient is awaiting an abdominal ultrasound as ordered by his GI specialist to evaluate his abdominal pain and increased girth. - No action was taken regarding this issue during the current visit. . 4. Hypertension - The patient's blood pressure is well-controlled. - He was advised to continue his low-salt diet and current management without ch anges. Orders: Orders Basic Metabolic Panel 6 Months N18.31 - Chronic kidney disease, stage 3a Coding Level of Care Code Est Pt Level 4 (04953) Diagnoses CKD stage 3a, GFR 45-59 ml/min N18.31
--- OUTSIDE RECORDS SUMMARY | 2025-06-25 18:47 | XMS_ITS | Encounter Summary ---
Author Organization [employer] Address [address] [facility] [address] [place] [address] Care Team Providers Care Kitchen Assistant Name Role Phone Flora Santiago SENIOR CONTROLLER Primary Care Provider [phone] Sherin Hall RN Unavailable [phone] Juan Jose Deshpande MD Unavailable [phone] Michael Glass MD Unavailable [phone] Demetrius Austin MD Unavailable Harry Garcia MD Unavailable [phone] Jovany Feliciano MD Unavailable Kandi Panda PharmD Unavailable [phone] Angelica Saenz Unavailable Mao Palomino DDS Unavailable [phone] Encounter Details Date Type Department Care Team (Late st Contact Info) Description 05/25/2023 Abstract [facility] MEDICINE [address] [place] [address] Debi Zamora Social History Tobacco Use Types [...] Description 07/13/2025 9:30 AM EST Medication Management [facility] [address] [place] [address] Kandi Panda, PharmD [address] [place] [address] 08/21/2025 1:15 PM EST Office Visit [facility] [address] [place] [phone] Doug Fay MD [address] [place] [address] 11/27/2025 8:00 AM EDT Office Visit [facility] ADULT DENTAL [address] [place] [address] Dallin Saenzaris [address] [place] [address] documented as of this encounter Procedures Procedure Name Priority Date/Time Associated Diagnosis Comments COLONOSCOPY Routine 03/17/2021 documented in this encounter Results * Colonoscopy (03/17/2021) Colonoscopy Normal Normal Narrative Debi Zamora - 03/17/2021 Repeat in 5 years tubular adenoma us Historical Provider HEALTH MAINTENANCE Final Result documented in this encounter Visit Diagnoses Not on filedocumented in this encounter Care Teams Kitchen Assistant Relationship Specialty Start Date End Date Flora Santiago FNP [address] [place] [address] PCP - General Family Medicine 05/02/21 Sherin Hall, RN [address] [place] [address] Garden Labourer Family Medicine 07/30/23 Juan Jose Deshpande MD [address] [place] [address] Nephrology 06/13/24 Michael Glass MD [address] [place] [address] [address] [place] [address] General Surgery 06/13/24 Demetrius Austin MD [address] [place] [address] Orthopaedic Surgery 06/13/24 Harry Garcia MD [address] [place] [address] Gastroenterology 06/13/24 Jovany Feliciano MD [address] [place] [address] Cardiology 06/13/24 Kandi Panda PharmD [address] [place] [address] Pharmacist Internal Medicine 08/18/24 Angelica Saenz [address] [place] [address] Dental Hygienist Dental Student Teacher 08/20/24 Mao Palomino DDS [address] [place] [address] Dentist Dental Student Teacher 08/20/24 documented as of this encounter
--- OUTSIDE RECORDS SUMMARY | 2025-06-25 18:47 | XMS_ITS | Clinical Summary ---
Author Organization [facility] Address [address] [place] [address] Phone Care Team Providers Care Assurance Engineer Name Role Phone Unavailable Primary Care [...]
--- OUTSIDE RECORDS SUMMARY | 2025-06-25 18:47 | XMS_ITS | Patient Health Record ---
Author Organization [facility] Address [address] [place] [address] Care Team Providers Care Machinist Brake Name Role Phone KAYLA TRENT MD Primary Care Provider DWIGHT Rod [phone] Reason For Referral No Information Medications Medication SIG (Take, Route, Frequency, Duration) Notes Start Date End Date Status Atorvastatin Calcium 20 MG Tablet 1 tab(s) orally once a day (at bedtime); Duration: 30 day(s) Active HumaLOG 100 UNIT/ML Solution 20 units subcutaneously 3 times a day (before meals) Active Lantus 100 UNIT/ML Solution 30 units subcutaneously bed time Active Pantoprazole Sodium 20 MG Tablet Delayed Release 1 tab(s) orally once a day 02/05/2015 Active Vitamin D 25 MCG (1000 UT) Tablet 1 tab(s) orally once a day; Duration: 30 day(s) Active Lisinopril 40 MG Tablet 1 tab(s) orally once a day; Duration: 30 day(s) Active Aspirin 325 MG Tablet 1 tab(s) orally on ce a day; Duration: 30 day(s) Active Fenofibrate 134 MG Capsule 1 cap(s) orally once a day; Duration: 30 day(s) Active Golytely - POWDER FOR RECONSTITUTION 240 ML ORALLY EVERY 15 MINUTES; Duration: 16 DOSE(S) NAME ONLY Conversion from Multum Review and pick correct strength-formulat ion from Medispan options. If intended option is not shown, discontinue and re-order from Quick Search. 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 alcohol use: yes 1-2, beer per mo drug use: no Hobbies/Exercise habits: reading Coffee/Tea/Soda: yes Soda, Tea, occ Marital Status experience no Living with smokers in household no Section Notes: former smoker: occasional sm oker for 1 yr hx, quit 20+ yrs former smoker: occasional sm oker for 1 yr hx, quit 20+ yrs former smoker: occasional sm oker for 1 yr hx, quit 20+ yrs former smoker: occasional sm oker for 1 yr hx, quit 20+ yrs former smoker: occasional sm oker for 1 yr hx, quit 20+ yrs former smoker: occasional sm oker for 1 yr hx, quit 20+ yrs former smoker: occasional sm oker for 1 yr hx, quit 20+ yrs former smoker: occasional sm oker for 1 yr hx, quit 20+ yrs former smoker: occasional sm oker for 1 yr hx, quit 20+ yrs former smoker: occasional sm oker for 1 yr hx, quit 20+ yrs former smoker: occasional sm oker for 1 yr hx, quit 20+ yrs former smoker: occasional sm oker for 1 yr hx, quit 20+ yrs former smoker: occasional sm oker for 1 yr hx, quit 20+ yrs former smoker: occasional sm oker for 1 yr hx, quit 20+ yrs Problems Problem Type SNOMED Code ICD Code Onset Dates Problem Status W/U Status Risk Notes Problem Helicobacter-assoc iated disease (1673367) Helicobacter pylori [H. pylori] infection (041.86) Active confirmed Problem Gastroduodenitis (disorder) (588633751) Gastritis and gastroduodenit is, unspecified, without mention of hemorrhage (535.50) Active confirmed Problem Hemorrhage of rectum and anus (387126972) Hemorrhage of rectum and anus (569.3) Active confirmed Problem Steatosis of liver (377707562) FATTY LIVER DISEASE (571.8) Active confirmed Problem Right upper quadrant pain (395749749) Abdominal pain, right upper quadrant (789.01) Active confirmed longstanding, with unremarkable colonoscopy. Suspect functional or non-GI Problem Right upper quadrant pain (542494051) ABDMNAL PAIN RT UPR QUAD (789.01) Active confirmed Problem Gastrointestinal tract problem (041148249) ABN FINDINGS-GI TRACT (793.4) Active confirmed Problem Fatty liver (837105651) Fatty liver (K76.0) Active confirmed Plan Of Treatment No Information Insurance Providers Payer Name Payer Address Payer Phone Subscriber Number Group Number Insured Name Patient Relationship to Insured Coverage Start Date Coverage End Date [facility] [address] [address] [place] [id number] CRISTINO BUENROSTRO Self - patient is the insured Medical (General) History Medical History History ICD Code 09/17/13: ultrasound: fatty i nfiltration, normal GB./-AST81/ALT70/zahC340//LFTnl-note RUQ abd pain- EG09/25/11-tra ce antral erythema streaks- Bx HP positive gastritis-(trace barretts short segment-No Bx)-REc Fdrxvv007 2bid, Xctynx448qol,umsbnwojtk23dmk x 10d///Colon (heme pos stool)12/18nl//Sono02/17=1.8cm right liver hypoech lesion stable x years///EGD4/10/20-Trace relux esophagitis c 1 linear hinlkaj-LS-Nrd + hepatitis C Ab , + HepATot Ab/HepBsAb, Neg. HepBsAg, Neg. Hep C Viral Load CT ABD W/W/out --06/27/10 - 17 mm homogeneously enhancing lesion R lobe liver unchanged from 3..10 study ??Hemangioma- rec. u/s in 6 months // abd u/s 03.30.11 - echogenic liver, stable hemangioma//09/20CT ABd-Pelvis- Left hydronephrosis,bilat renal stones,Dosis,Focal fatty change c subtle lesions liver c/w focal fatty sparing headaches diabetes hypertension fibromyalgia eczema urinary retention dyslipidemia Depression hypercholesterolemia insomnia R shoulder pain - hurt shoulder recently - had cortisone injxn yesterday Heme pos x3(12/18)- colon12/18/11-Normal-, Avoid milk chronic left ankle pain S/P surgery. On morphine EG09/25/11-trace antral eryt jase streaks- Bx HP positive gastritis: trace barretts short segment-No Bx REctal bleed on paper-FLexSi g02/15/15-anal erythema-Normal colon to 40cm-Very poor tolerance c abd pain. Colonoscopy 06/04/2019 - Surgical History Surgery Date(Month/Year) Colonoscopy - 12/2011 Broken foot (15 screws ) 12/2008 Hospitalization History Reason Date(Month/Year) [facility] - U/S Liver
--- OUTSIDE RECORDS SUMMARY | 2025-06-25 18:48 | XMS_ITS | Encounter Summary ---
Author Organization [employer] Address [address] [place] [address] 7[address] [place] [address] Care Team Providers Care Focusing Machine Operator Name Role Phone Flora Santiago CIARRA Primary Care Provider Sherin Hall RN Unavailable [phone] Juan Jose Deshpande MD Unavailable [phone] Michael Glass MD Unavailable [phone] Demetrius Austin MD Unavailable Harry Garcia MD Unavailable [phone] Jovany Feliciano MD Unavailable [phone] Kandi Panda PharmD Unavailable Angelica Saenz Unavailable Mao Palomino DDS Unavailable [phone] Encounter Details Date Type Department Care Team (Latest Contact Info) Description 01/13/2021 Abstract [facility] CONVERSIONS Dental, Provider, DDS Social History [...] Description 07/13/2025 9:30 AM EST Medication Management [facility] MEDICINE [address] [place], [place] [phone] Kandi Panda, PharmD [address] [place] [address] 08/21/2025 1:15 PM EST Office Visit [facility] [address] [place] [address] Doug Fay MD [address] [place] [address] 11/27/2025 8:00 AM EDT Office Visit [facility] ADULT DENTAL [address] [place] [address] Dany, Angelica [address] [place] [address] documented as of this encounter Visit Diagnoses Not on filedocumented in this encounter Care Teams Focusing Machine Operator Relationship Specialty Start Date End Date Flora Santiago FNP [address] [place] [address] PCP - General Family Medicine 05/02/21 Sherin Hall, RN [address] [place] [address] Physical Aerodynamicist Family Medicine 07/30/23 Juan Jose Deshpande MD [address] [place] [address] Nephrology 06/13/24 Michael Glass MD [address] [place] [address] Dr [address] [place] [address] General Surgery 06/13/24 Demetrius Austin MD [address] [place] [address] Orthopaedic Surgery 06/13/24 Harry Garcia MD [address] [place] [address] Gastroenterology 06/13/24 Jovany Feliciano MD [address] 3rd [place] [address] Cardiology 06/13/24 Kandi Panda PharmD [address] [place] [address] Pharmacist Internal Medicine 08/18/24 Angelica Saenz [address] [place] [address] Dental Hygienist Dental Manager Mechanical Maintenance 08/20/24 Mao Palomino DDS [address] [place] [address] Dentist Dental Manager Mechanical Maintenance 08/20/24 documented as of this encounter
--- OUTSIDE RECORDS SUMMARY | 2025-06-25 18:48 | XMS_ITS | Encounter Summary ---
Author Organization [employer] Address [address] [place] [address] 7t [place] [address] Care Team Providers Care Cook House Supervisor Name Role Phone Flora Santiago Primary Care Provider Sherin Hall RN Unavailable [phone] Juan Jose Deshpande MD Unavailable [phone] Michael Glass MD Unavailable [phone] Demetrius Austin MD Unavailable Harry Garcia MD Unavailable [phone] Jovany Feliciano MD Unavailable Kandi Panda PharmD Unavailable [phone] Angelica Saenz Unavailable Mao Palomino DDS Unavailable [phone] Reason for Visit * Reason Comments Med Refill Encounter Details Date Type Department Care Team (Late st Contact Info) Description 06/11/[address] [facility] MED [facility] PEDS [address] [place], [place] [phone] Flora Santiago FNP [address] [place] [address] Social History Tobacco Use Types Packs/Day Years [...] Description 07/13/2025 9:30 AM EST Medication Management [facility] MEDICINE [address] [place] [address] Kandi Panda, PharmD [address] [place] [address] 08/21/2025 1:15 PM EST Office Visit [facility] MEDICINE [address] [place] [address] Doug Fay MD [address] [place] [address] 11/27/2025 8:00 AM EDT Office Visit [facility] ADULT DENTAL [address] [place] [address] Angelica Saenz [address] [place] [address] documented as of this encounter Goals Goal [...] Weekly blood pressure task No Anders Jack Patient has chronic kidney disease Care Plan Patient has chronic kidney disease No Anders Jack Patient has chronic kidney disease Care Plan Patient has chronic kidney disease No Areli Jacklemo Weekly blood pressure task Care Plan Weekly blood pressure task No DriscollDawoodga, THERAPEUTIC ASSISTANT Weekly blood pressure task Care Plan Weekly blood pressure task No Driscoll Indu, THERAPEUTIC ASSISTANT Patient has chronic kidney disease Care Plan Patient has chronic kidney disease No Driscoll Indu, THERAPEUTIC ASSISTANT Patient has chronic kidney disease Care Plan Patient has chronic kidney disease No DriscollDawoodga, THERAPEUTIC ASSISTANT Weekly blood pressure task Care Plan Weekly blood pressure task No Noam Molly, THERAPEUTIC ASSISTANT Weekly blood pressure task Care Plan Weekly blood pressure task No Noam Molly, THERAPEUTIC ASSISTANT Patient has chronic kidney disease Care Plan Patient has chronic kidney disease No Noam Molly, THERAPEUTIC ASSISTANT Patient has chronic kidney disease Care Plan Patient has chronic kidney disease No Noam Molly, THERAPEUTIC ASSISTANT Weekly blood pressure task Care Plan Weekly blood pressure task No Angelica Saenz Weekly blood pressure task Care Plan Weekly blood pressure task No Angelica Saenz Patient has chronic kidney disease Care Plan Patient has chronic kidney disease No Angelica Saenz Patient has chronic kidney disease Care Plan Patient has chronic kidney disease No Angelica Saenz documented as of this encounter Visit Diagnoses Not on filedocumented in this encounter Additional Health Concerns Active [...] 05/29/2025 Patient has chronic kidney disease 05/29/2025 Assessment Noted Time PHQ-9 Depression Total Score: 0 12/09/19 1:28 PM EDT documented as of this encounter Care Teams Cook House Supervisor Relationship Specialty Start Date End Date Flora Santiago FNP [address] [place] [address] PCP - General Family Medicine 05/02/21 Sherin Hall, MICHELLE [address] [place] [address] Splunk Dashboard Developer Family Medicine 07/30/23 Juan Jose Deshpande MD [address] [place] [address] Nephrology 06/13/24 Michael Glass MD [address] [place] [address] Dr 3rd [place] [address] General Surgery 06/13/24 Demetrius Austin MD [address] [place] [address] Orthopaedic Surgery 06/13/24 Harry Garcia MD [address]rd [place] [address] Gastroenterology 06/13/24 Jovany Feliciano MD [address]rd [place] [address] Cardiology 06/13/24 Kandi Panda, RobertD [address] [place] [address] Pharmacist Internal Medicine 08/18/24 Angelica Saenz [address] [place] [address] Dental Hygienist Dental Charter Pilot 08/20/24 Mao Palomino DDS [address] [place] [address] Dentist Dental Charter Pilot 08/20/24 documented as of this encounter
--- OUTSIDE RECORDS SUMMARY | 2025-06-25 18:48 | XMS_ITS | Encounter Summary ---
Author Organization [employer] Address [address] [place] [address] 7t [place] [address] Care Team Providers Care Dividend Deposit Entry Clerk Name Role Phone Flora Santiago Primary Care Provider Sherin Hall RN Unavailable [phone] Juan Jose Deshpande MD Unavailable [phone] Michael Glass MD Unavailable [phone] Demetrius Austin MD Unavailable Harry Garcia MD Unavailable [phone] Jovany Feliciano MD Unavailable [phone] Kandi Panda PharmD Unavailable [phone] Angelica Saenz Unavailable Mao Palomino DDS Unavailable Reason for Visit * Reason Onset Date Comments Returning Call Back 12/19/2022 Encounter Details Date Type Department Care Team (Late st Contact Info) Description 12/19/2022 Telephone [facility] MED[facility]INE [address] [place] [address] Flora Santiago FNP [address] [place], [place] [phone] Returning Call Back Social History Tobacco Use [...] Description 07/13/2025 9:30 AM EST Medication Management [facility] [address] [place] [address] Kandi Panda PharmD [address] [place] [address] 08/21/2025 1:15 PM EST Office Visit [facility] [address] [place] [address] Doug Fay MD [address] [place] [address] 11/27/2025 8:00 AM EDT Office Visit [facility] ADULT DENTAL [address] [place] [address] Dallin Saenzaris [address] [place] [address] documented as of this encounter Visit Diagnoses Not on filedocumented in this encounter Care Teams Dividend Deposit Entry Clerk Relationship Specialty Start Date End Date Flora Santiago FNP [address] [place] [address] PCP - General Family Medicine 05/02/21 Sherin Hall, MICHELLE [address] [place] [address] Research Director Family Medicine 07/30/23 Juan Jose Deshpande MD [address] [place] [address] Nephrology 06/13/24 Michael Glass MD [address] [facility] [address] 3rd [place] [address] General Surgery 06/13/24 Demetrius Austin MD [address] [place] [address] Orthopaedic Surgery 06/13/24 Harry Garcia MD [address] [facility] [place] [address] Gastroenterology 06/13/24 Jovany Feliciano MD [address] [address] Cardiology 06/13/24 Kandi Panda PharmD 230 [place] [address] Pharmacist Internal Medicine 08/18/24 Angelica Saenz [address] [place] [address] Dental Hygienist Dental Adobe Block Maker 08/20/24 Mao Palomino DDS [address] [place] [address] Dentist Dental Adobe Block Maker 08/20/24 documented as of this encounter
--- OUTSIDE RECORDS SUMMARY | 2025-06-25 18:48 | XMS_ITS | Encounter Summary ---
Author Organization [employer] Address [address] [facility] 7t [place] [address] Care Team Providers Care Motor Driver Name Role Phone Flora Santiago Primary Care Provider [phone] Sherin Hall RN Unavailable [phone] Juan Jose Deshpande MD Unavailable [phone] Michael Glass MD Unavailable [phone] Demetrius Austin MD Unavailable Harry Garcia MD Unavailable Jovany Feliciano MD Unavailable Kandi Panda PharmD Unavailable [phone] Angelica Saenz Unavailable Mao Palomino DDS Unavailable [phone] Reason for Visit * Reason Comments Med Refill Encounter Details Date Type Department Care Team (Late st Contact Info) Description 11/28/2024 Refill [facility] MEDICINE [address] [place] [address] Flora Santiago FNP [address] [place], [place] [phone] Social History Tobacco Use Types Packs/Day Years [...] Description 07/13/2025 9:30 AM EST Medication Management [facility]INE [address] [place] [address] Kandi Panda, RobertD [address] [place] [address] 08/21/2025 1:15 PM EST Office Visit [facility] MED[facility]INE [address] [place] [address] Doug Fay MD 230 [place] [address] 11/27/2025 8:00 AM EDT Office Visit [facility] ADULT DENTAL [address] [place] [address] Angelica Saenz [address] [place] [address] documented as of this encounter Goals Goal Patient Goal Type Associated Problems Recent Progress Patient-Stated? Author Blood Pressure < 140/90 Blood Pressure 140/86(2024 7:50 AM EST) No Jose Maria Novak Hemoglobin A1c < 7 Result Component 9.7( 2:46 PM EST) No Jose Maria Novak documented as of this encounter Visit Diagnoses Not on filedocumented in this encounter Additional Health Concerns Assessment Noted Time PHQ-9 Depression Total Score: 0 11/30/19 11:07 AM EDT documented as of this encounter Care Teams Motor Driver Relationship Specialty Start Date End Date Flora Santiago FNP [address] [place] [address] PCP - General Family Medicine 05/02/21 Sherin Hall, RN [address] [place] [address] Seismographer Family Medicine 07/30/23 Juan Jose Deshpande MD [address] [place] [address] Nephrology 06/13/24 Michael Glass MD [address] [place] [address] Dr [address] [place] [address] General Surgery 06/13/24 Demetrius Austin MD [address] [place] [address] Orthopaedic Surgery 06/13/24 Harry Garcia MD [address] [place] [address] Gastroenterology 06/13/24 Jovany Feliciano MD [address] 3rd [place] [address] Cardiology 06/13/24 Kandi Panda PharmD [address] [place] [address] Pharmacist Internal Medicine 08/18/24 Angelica Saenz [address] [place] [address] Dental Hygienist Dental Tie Presser 08/20/24 Mao Palomino DDS [address] [place] [address] Dentist Dental Tie Presser 08/20/24 documented as of this encounter
--- OUTSIDE RECORDS SUMMARY | 2025-06-25 18:48 | XMS_ITS | Encounter Summary ---
Author Organization [employer] Address [address] [place] [address] 7t [place] [address] Care Team Providers Care Chef & Owner Name Role Phone Pamela Flora FNP Primary Care Provider [phone] Sherin Hall RN Unavailable [phone] Juan Jose Deshpande MD Unavailable [phone] Michael Glass MD Unavailable [phone] Demetrius Austin MD Unavailable Harry Garcia MD Unavailable [phone] Jovany Feliciano MD Unavailable Kandi Panda PharmD Unavailable Angelica Saenz Unavailable Mao Palomino DDS Unavailable [phone] Reason for Referral * Consultation (Routine) - Canceled Specialty Diagnoses / Procedures Referred By Contac t Referred To Contact Pharmacy Diagnoses Type 2 diabetes mellitus with hyperglycemia, with long-term current use of insulin (HCC) Divya Amos MD [address] [place] [address] Phone: tel: fax: Referral ID Status Reason Start Date Expiration Date V isits Requested Visits Authorized [id number] Canceled Consult and Treat 06/11/2024 06/11/2025 6 6 Encounter Details Date Type Department Care Team (Late st Contact Info) Description 06/11/2024 Orders Only [facility] MEDICINE [address] [place] [address] Divya Amos MD [address] [facility] [place] [address] Type 2 diabetes mellitus with hyperglycemia, with [...] the past 12 months, has t he [employer], gas, oil or water [employer] threatened to shut off services in your [...] Description 07/13/2025 9:30 AM EST Medication Management [facility]INE [address] [place] [address] Kandi Panda PharmD [address] [place] [address] 08/21/2025 1:15 PM EST Office Visit [facility] MEDICINE [address] [place] [address] Doug Fay MD [address] [place] [address] 11/27/2025 8:00 AM EDT Office Visit [facility] ADULT DENTAL [address] [place] [address] DanyAngelica [address] [place] [address] Scheduled Referrals Name Type Priority Associated Diagnoses Orde r Schedule Referral to Pharmacy CDTM Outpatient Referral Routine Type 2 diabetes mellitus with hyperglycemia, with long-term current use of insulin ([facility]) Ordered: 06/11/2024 documented as of this [...] with long-term current use of insulin ([facility])- Primary documented in this encounter Additional Health Concerns Assessment Noted Time PHQ-9 Depression Total Score: 0 11/30/19 24 11:07 AM EDT documented as of this encounter Care Teams Chef & Owner Relationship Specialty Start Date End Date Flora Santiago FNP [address] [place] [address] PCP - General Family Medicine 05/02/21 Sherin Hall, MICHELLE [address] [place] [address] Senior Project Manager Family Medicine 07/30/23 Juan Jose Deshpande MD [address] [place] [address] Nephrology 06/13/24 Michael Glass MD [address] [place] [address] Dr [address] [place] [address] General Surgery 06/13/24 Demetrius Austin MD [address] [place] [address] Orthopaedic Surgery 06/13/24 Harry Garcia MD [address] [address] Gastroenterology 06/13/24 Jovany Feliciano MD [address] [address] Cardiology 06/13/24 Kandi Panda PharmD [address] [place] [address] Pharmacist Internal Medicine 08/18/24 Angelica Saenz [address] [place] [address] Dental Hygienist Dental Fire Chief'S Aide 08/20/24 Mao Palomino DDS [address] [place] [address] Dentist Dental Fire Chief'S Aide 08/20/24 documented as of this encounter
--- OUTSIDE RECORDS SUMMARY | 2025-06-25 18:48 | XMS_ITS | Encounter Summary ---
Author Organization [employer] Address [address] [place] [address] 7t [place] [address] Care Team Providers Care Quality Assurance Coach Name Role Phone Flora Santiago ASSOCIATE APPLICATION DEVELOPER Primary Care Provider [phone] Sherin Hall RN Unavailable [phone] Juan Jose Deshpande MD Unavailable [phone] Michael Glass MD Unavailable [phone] Demetrius Austin MD Unavailable Harry Garcia MD Unavailable [phone] Jovany Feliciano MD Unavailable Kandi Panda PharmD Unavailable Angelica Saenz Unavailable Mao Palomino DDS Unavailable [phone] Encounter Details Date Type Department Care Team (Late st Contact Info) Description 02/22/2023 Orders Only [facility] [address] [place], [place] [phone] Yanique Hart MD [address] [place], [place] [phone] Other ascites (Primary Dx) Social History Tobacco [...] Description 07/13/2025 9:30 AM EST Medication Management [facility] [address] [place] [address] Kandi Panda PharmD [address] [place] [address] 08/21/2025 1:15 PM EST Office Visit [facility] [address] [place] [address] Doug Fay MD [address] [place] [address] 11/27/2025 8:00 AM EDT Office Visit [facility] ADULT DENTAL [address] [place] [address] Dallin Saenzaris [address] [place] [address] Scheduled Orders Name Type Priority Associated Diagnoses [...] Primary documented in this encounter Care Teams Quality Assurance Coach Relationship Specialty Start Date End Date Flora Santiago FNP [address] [place] [address] PCP - General Family Medicine 05/02/21 Sherin Hall, MICHELLE [address] [place] [address] [phone] Code Official Family Medicine 07/30/23 Juan Jose Deshpande MD [address] [place] [address] Nephrology 06/13/24 Michael Glass MD [address] [place] [address] Dr [address] [place] [address] General Surgery 06/13/24 Demetrius Austin MD [address] [place] [address] Orthopaedic Surgery 06/13/24 Harry Garcia MD [address] [address] Gastroenterology 06/13/24 Jovany Feliciano MD [address] [address] Cardiology 06/13/24 Kandi Panda PharmD 230 [place] [address] Pharmacist Internal Medicine 08/18/24 Angelica Saenz [address] [place] [address] Dental Hygienist Dental Bilingual Counter Sales Retail 08/20/24 Mao Palomino DDS [address] [place] [address] Dentist Dental Bilingual Counter Sales Retail 08/20/24 documented as of this encounter
--- OUTSIDE RECORDS SUMMARY | 2025-06-25 18:48 | XMS_ITS | Encounter Summary ---
Author Organization [employer] Address [address] [place] [address] 7t [place] [address] Care Team Providers Care Salesperson [employer] Name Role Phone Flora Santiago Primary Care Provider Sherin Hall RN Unavailable [phone] Juan Jose Deshpande MD Unavailable [phone] Michael Glass MD Unavailable [phone] Demetrius Austin MD Unavailable Harry Garcia MD Unavailable [phone] Jovany Feliciano MD Unavailable Kandi Panda PharmD Unavailable [phone] Angelica Saenz Unavailable Mao Palomino DDS Unavailable Reason for Visit * Reason Onset Date Comments ER Follow-up 12/19/2022 Encounter Details Date Type Department Care Team (Late st Contact Info) Description 12/19/2022 Telephone [facility] MEDICINE [address] [place] [address] Flora Santiago FNP [address] [place], [place] [phone] ER Follow-up Social History Tobacco Use Types [...] - 12/20/2022 12:22 PM EDT T/C to [phone] through [employer] id - [id number] to schedule HDF , No answer. LVM to call back on [phone]. * Telephone Encounter - Elizabeth Call - 12/19/2022 3:14 PM EDT Tc from pt requesting a HDF appt. Pt was admitted at [facility] on 12/09/22 and discharged on 12/10/22 due to hernia by belly button, lower back pain, liver and left hip pain. Patient advised will forward to team documented in this encounter Plan of Treatment Upcoming Encounters Date Type Department Care Team (Late st Contact Info) Description 07/13/2025 9:30 AM EST Medication Management [facility] MEDICINE [address] [place] [address] [phone] Kandi Panda, RobertD [address] [place] [address] 08/21/2025 1:15 PM EST Office Visit [facility] MEDICINE [address] [place] [address] [phone] Doug Fay MD 230 [place] [address] 11/27/2025 8:00 AM EDT Office Visit [facility] ADULT DENTAL [address] [place] [address] Angelica Saenz [address] [place] [address] documented as of this encounter Visit Diagnoses Not on filedocumented in this encounter Care Teams Salesperson [employer] Relationship Specialty Start Date End Date Flora Santiago FNP [address] [place] [address] PCP - General Family Medicine 05/02/21 Sherin Hall, RN [address] [place] [address] Integrated Circuit Layout Designer Family Medicine 07/30/23 Juan Jose Deshpande MD [address] [place] [address] Nephrology 06/13/24 Michael Glass MD [address] [place] [address] Dr [address] [place] [address] General Surgery 06/13/24 Demetrius Austin MD [address] [place] [address] Orthopaedic Surgery 06/13/24 Harry Garcia MD [address] [place] [address] Gastroenterology 06/13/24 Jovany Feliciano MD [address] [address] Cardiology 06/13/24 Kandi Panda, RobertD [address] [place] [address] Pharmacist Internal Medicine 08/18/24 Angelica Saenz [address] [place], [place] [phone] Dental Hygienist Dental Supervising Editor News Reel 08/20/24 Mao Palomino DDS [address] [place], [place] [phone] Dentist Dental Supervising Editor News Reel 08/20/24 documented as of this encounter
--- OUTSIDE RECORDS SUMMARY | 2025-06-25 18:48 | XMS_ITS | Clinical Summary ---
Author Organization [employer] Address [address] [facility] [address] [place] [address] Care Team Providers Care Sales Promoter Name Role Phone VanekeeleyFlora Primary Care Provider Sherin Hall RN Unavailable [phone] Juan Jose Deshpande MD Unavailable [phone] Michael Glass MD Unavailable [phone] Demetrius Austin MD Unavailable Harry Garcia MD Unavailable Jovany Feliciano MD Unavailable Kandi Panda PharmD Unavailable [phone] Angelica Saenz Unavailable Mao Palomino DDS Unavailable [phone] Allergies Active Allergy Reactions Criticality Noted Date Comments Atorvastatin High 02/01/2023 Other reaction(s): elevated LFTs Shrimp Extract High 02/01/2023 Other reaction(s): Difficulty Breathing Medications * This document contains information received from the source organization and may not represent a complete record from that organization. beta carotene (vitamin A) 3 MG (58625 UT) capsule Take 10,000 Units by mouth in the morning. Active zinc sulfate (Zincate) 220 (50 Zn) MG capsule Take 50 mg of elemental zinc by mouth in the morning. Active thiamine (Vitamin B-1) 100 MG tablet Take 100 mg by mouth 2 times daily. Active TRUEplus Lancets 33G miscIndications :Type 2 diabetes mellitus with hyperglycemia, unspecified whether termite helper insulin use (HCC) TEST BLOOD SUGAR THREE TIMES DAILY 100 each 11 Active Praluent 75 MG/ML injection INJECT 75 MG SUBCUTANEOUSLY EVERY 2 WEEKS. ROTATE INJECTION SITES Active glucose blood (FreeStyle Precision Ric Test) test stripIndication s:Type 2 diabetes mellitus with hyperglycemia, unspecified whether termite helper insulin use ([facility]) USE DIRECTED TO TEST BLOOD SUGAR THREE TIMES DAILY 100 each 11 05/22/20 25 2:43 PM EST Active Blood Pressure kitIndications: Primary hypertension Use to check blood pressure once daily and when symptomatic 1 kit Active cholecalciferol VITAMIN D (Vitamin D-3) 50 MCG (1999) tabletIndicatio ns:Routine health maintenance TAKE 1 TABLET BY MOUTH EVERY EVENING 90 tablet 3 Active lisinopril 10 MG tabletIndicatio ns:Primary hypertension Take 1 tablet (10 mg) by mouth Once per day. 90 tablet 3 05/22/20 25 2:43 PM EST 025 2025 Active Continuous Glucose Sensor (FreeStyle Bill 3 Plus Sensor) misc 1 each every 15 days. Apply 1 every 15 days as directed for CGM 2 each Active pantoprazole (ProtoNix) 40 MG EC tablet Take 1 tablet by mouth Once per day. Active B Complex Vitamins (Vitamin-B Complex) tablet Take 1 tablet by mouth Once per day. Active Continuous Glucose Route Clerk (FreeStyle Bill 3 Matlock) device 1 each Once per day. Use as directed for CGM 1 each Active cetirizine (ZyrTEC) 5 MG tabletIndicatio ns:Generalized pruritus Take 1 tablet (5 mg) by mouth at bedtime. (For allergies) 90 tablet 1 06/22/20 25 10:26 AM EST 2025 Active Additional Information Patient not taking.Reported on 05/29/2025 eplerenone (Inspra) 50 MG tablet TAKE 1 TABLET BY MOUTH EVERY MORNING 90 tablet 1 Active triamcinolone (Kenalog) 0.1 % creamIndication s:Rash APPLY TO THE AFFECTED AREA(S) TOPICALLY TWICE DAILY IN THE MORNING AND AT BEDTIME 30 g 06/02/2 025 Active Jardiance 25 MG TAKE 1 TABLET BY MOUTH EVERY MORNING 30 tablet 3 025 Active HumuLIN R 100 UNIT/ML injection INJECT SUBCUTANEOUSLY THREE TIMES DAILY AFTER BREAKFAST, LUNCH, AND DINNER PER SLIDING SCALE 150-200 = 2 UNITS, 201-250 = 4 UNITS, 251-300 = 6 UNITS, 301-350 = 8 UNITS, 351-400 = 10 UNITS, 401-450 = 12 UNITS, > 450 = CALL DOCTOR Active insulin glargine (Lantus SoloStar) 100 UNIT/ML pen Inject 25 Units under the skin at bedtime. Active Embecta Pen Needle Ultrafine 31G X 5 MM misc USE DIRECTED FOUR TIMES DAILY 100 each 11 Active Alcohol Swabs (Alcohol Prep) 70 % pads USE DIRECTED FOUR TIMES DAILY 025 Active SURE COMFORT INS SYR 1CC/30G 30G X 5/16 1 ML misc USE 1 SYRINGE SUBCUTANEOUSLY THREE TIMES DAILY Active acamprosate (Campral) 333 MG EC tabletIndicatio ns:Severe alcohol dependence (CMS/HCC) (HCC) Take 2 tablets (666 mg) by mouth 2 times daily. Do not crush, chew, or split. 120 tablet 2 025 2025 Active Diclofenac Sodium 1 % gel APPLY 2 GRAMS TOPICALLY TO AFFECTED AREA(S) TWICE DAILY NEEDED 100 g 2 06/22/20 25 10:26 AM EST Active Diclofenac Sodium 1 % gel APPLY 2 GRAMS TOPICALLY TO AFFECTED AREA(S) TWICE DAILY NEEDED 100 g 2 025 2024 Discontinued Active Problems Problem Noted Date Diagnosed Date Extruded tooth 05/29/2025 Stage 4 grade B localized pe riodontitis per AAP/EFP 2017 classification 05/29/2025 Dental calculus 05/29/2025 Localized gingival recession 05/29/2025 Chronic periodontitis 05/29/2025 Cardiac murmur 05/17/2025 Assessment & Plan (05/17/2025 4:11 PM EST): - Evaluated by [facility] [place] w/ plan for repeat echo and stress test - Encouraged to f/up with specialist and complete any pending orders Healthcare maintenance 11/14/2024 Overview (11/14/2024): OPH: May [...] & Plan (06/13/2024 11:47 AM EST): 04/23/24: [facility]. EMG with impression of bilateral [...] thumb bilateral. Referral to Ortho placed. 02/12/24: [facility] R[place]. Eval bilat hand pain, numbness, tingling x 1 year. Referred for EMG and nerve conduction study to test nerves of BUE. Cont to monitor left ring finger to see if locking and catching. Non-recurrent unilateral ing uinal hernia without obstruction or gangrene 04/13/2024 Overview (04/13/2024): Left inguinal hernia repair completed in Fall [address] Glass - [facility] Umbilical hernia without obstruction and without gangrene 04/13/2024 Overview (04/13/2024): Following with [facility] [place] - Dr. Glass Consult note in Mar 2024 with plan for surgery small periumbilical hernia Reviewed ED precautions Assessment & Plan (04/13/2024 5:17 PM EDT): Speciality clearance for surgery in process Arthralgia of left temporomandibular joint 02/03 Microhematuria 11/30/2023 Overview (04/13/2024): Followed by [facility] - WILL Harris Cytology (2022): benign urothelial cells, benign squamous cells, acute inflammatory cells, occasional RBCs Type 2 diabetes mellitus wit h hyperglycemia, with long-term current use of insulin 02/13/2023 Assessment & Plan (05/17/2025 4:14 PM EST): Lab Results Component Value Date HGBA1C 9.7 (A) 05/15/2025 HGBA1C 6.7 (A) 11/12/2024 HGBA1C 7.4 (A) 09/18/2024 HGBA1C 7.1 (H) 09/06/2020 - Following with [facility] - High-carb intake during rehab, plan to return to more carb-awareness/carb control at home -Medications: Cont Tresiba 14 units at bedtime Cont Humalog 18-20 units TID AC Cont Jardiance 25mg daily Do NOT use insulin if not eating Last eye exam: 05/22/24: [facility] - Dr. Weaver. CEE. No retinopathy. Last foot exam: normal 11/04/21 Statin: No - past adverse rxn to atorvastatin. Following w/ cards - PCSK9i KOBE/ARB: lisinopril 40mg daily -Target FBG 80-130 range, post prandial <180 -ED precautions reviewed Assessment & Plan (11/14/2024 7:46 PM EDT): [...] insulin if not eating Cont following with [facility] Pharmacy [facility] team Last eye exam: [...] eating Call to schedule follow up with [facility] Pharm[facility] team Last eye exam: [...] Alcohol use disorder 02/13/2023 Assessment & Plan (05/17/2025 4:16 PM EST): - Rehab/detox 03/18/25 - 04/29/25 at [place] - Continue following with [facility] CRS team - Continues with acamprosate 666mg PO BID - Denies any alcohol use s/p discharge from rehab Assessment & Plan (11/14/2024 7:43 PM EDT): - Stages of change: Preparation -Warm handoff provided to CRS AUD team. Patient spoke with RMA today and scheduled for AUD clinic on [...] cardiovascular disease Cirrhosis of liver with ascites 02/13/2023 Overview (05/17/2025): Lab Results Component Value Date AST 80 (H) 10/23/2024 ALT 38 10/23/2024 TOTPROTEIN 8.0 10/23/2024 ALB 4.0 10/23/2024 ALP 349 (H) 10/23/2024 TOTALBILIRUB 0.7 10/23/2024 Lab Results Component Value Date PLT 342 10/23/2024 PLT 212 08/13/2024 Lab Results Component Value Date PTT 34.7 06/22/2023 PTT 31.1 03/21/2023 Lab Results Component Value Date HEPBSURFACAG Negative 04/29/2024 HEPBSURFAB REACTIVE 04/29/2024 HEPBCOREAB Nonreactive 04/29/2024 Hep C: negative Jul 2021 Assessment & Plan (05/17/2025 4:01 PM EST): -Following with [facility] - Dr. Garcia. Previously decompensated, but now compensated w/o ascites or HE. -MELD score 8 -Previously completing paracentesis for ascites PRN -Reviewed basic education and lifestyle interventions important for diagnosis of cirrhosis -GI consult Apr 2025: plan for abdominal US w/ elastography Medications: Eplerenone 50mg daily DC spironolactone (Jun [...] AFP: ordered 08/11/24, pending Assessment & Plan (08/12/2024 10:06 AM EST): -Previously following with [facility], although transferring to [facility]. -MELD score 8 -Previously completing paracentesis [...] Plan (06/13/2024 11:54 AM EST): -Following with [facility] - Dr. Garcia (last consult note [...] Plan (04/13/2024 5:00 PM EDT): -Following with [facility] - Dr. Garcia (last consult note [...] Plan (11/30/2023 11:37 AM EDT): -Following with [facility] - Dr. Garcia -MELD score 8 -Undergoing paracentesis for ascites PRN -Reviewed basic education and lifestyle interventions important for diagnosis of cirrhosis Medications through GI: Eplerenone 50mg daily DC spironolactone (Jun 2023 d/t gynecomastia) Furosemide 20mg daily Rifaximin Following with GI: screening endoscopy, return precautions paracentesis, HCC screening Q6mo (AFP, abd US) Assessment & Plan (06/23/2023 1:58 PM EST): -Following with [facility] - Dr. Garcia -Undergoing paracentesis for [...] Plan (03/30/2023 8:49 PM EDT): -Following with [facility] - Dr. Garcia -Reports currently scheduled Q2 weeks for paracentesis -Upcoming paracentesis scheduled week of 04/01/23, with plan for f/u with GI week of 04/08/23 -Reviewed basic education and lifestyle interventions important for diagnosis of cirrhosis Medications through GI: Spironolactone 50mg daily Furosemide 20mg daily Assessment & Plan (02/13/2023 5:57 PM EDT): - followed by Dr. Garcia [facility], last seen in December 2022 - urgent follow-up recommended; we will try calling Biliary acute pancreatitis 09/28/2022 Erosive esophagitis 10/04/2021 Renal stone 09/29/2020 Hypertensive disorder 04/08/2015 Assessment & Plan (06/13/2024 11:57 AM EST): Following with [facility] (Dr. Deshpande) & [facility] (Dr. Feliciano) Stress test from 2022. [...] Plan (04/13/2024 5:14 PM EDT): Following with [facility] (Dr. Deshpande) & [facility] (Dr. Feliciano) Stress test from 2022. Able to exercise 9.2 mets and reached target HR w/o signs of angina. Echo with LVEF 55-60%. Mild aortic stenosis. Lipids: Zetia, Praluent (PCSK9i) Medications: - Continues with lisinopril 10mg daily - Cont furosemide 20-40mg daily (dose adjustments primarily through Nephrology d/t hx hyponatremia and edema) Assessment & Plan (11/30/2023 11:49 AM EDT): Following with [facility] - Dr. Feliciano. Stress test from 2022. Able to exercise 9.2 mets and reached target HR w/o signs of angina. Echo with LVEF 55-60%. Mild aortic stenosis. Lipids: Zetia Benign prostatic hyperplasia 06/26/2014 Assessment & Plan (02/14/2023 6:28 AM EDT): - pt is prescribed tadalafil - continue current medication - optimize management of chronic disease - will refer to urologist Erectile dysfunction 06/26/2014 Assessment & Plan (04/13/2024 5:08 PM EDT): - Cause/origin likely multifactorial - Following with [facility] - WILL Harris - Cont Cialis 5mg daily and PRN Assessment & Plan (02/14/2023 6:31 AM EDT): - multifactorial - taking tadalafil - follow up with PCP and urologist Gastroesophageal reflux disease 12/08/2013 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 Depressive disorder 02/16/2012 Assessment & Plan (05/17/2025 4:16 PM EST): - No acute MH concerns - Encouraged to continue following with therapist - F/up precautions Pure hypercholesterolemia 01/04/2012 Resolved Problems Problem Noted Date Diagnosed Date Resolved Date Non-rheumatic aortic stenosis 05/17/2025 05/17/2025 Rib pain on right side 12/19/202405/17 Assessment & Plan (12/19/2024 4:17 PM EDT): Apply lidocaine patch on affected area and he may take acetaminophen low-dose every 6 hours as needed I will order an x-ray to confirm if patient has a rib fracture or fissure and contact him back with results ED precautions were reviewed with patient Periodontal disease 02/04/2024 04/13/20 Dental calculus 02/04/2024 [...] 12/20/2022 09/13/19 Nonalcoholic steatohepatitis (SALGUERO) 07/08/2021 03/30/2023 Eczema 01/04/2015 05/17/2025 Encounters * This document contains information received from the source organization and may not represent a complete record from that organization. Date Type Department Care Team Description 06/11/2025 Refill [facility] [address] [place] [address] Flora Santiago FNP 05/30/2025 Refill [facility] [address] [place] [address] Flora Santiago FNP 05/29/2025 8:00 AM EST Office Visit [facility] ADULT DENTAL [address] [place] [phone] Dany, Angelica Extruded tooth (Primary Dx); Stage 4 grade B localized periodontitis per AAP/EFP 2017 classification; Dental calculus; Localized gingival recession; Chronic periodontitis; Tipped teeth 05/28/2025 Refill [facility] [address] [place] [address] Flora Santiago FNP 05/28/2025 Telephone [facility] [address] [place] [address] Flora Santiago FNP 05/27/2025 9:00 AM EST Office Visit [facility] MEDICINE [address] [place] [phone] Doug Fay MD Alcohol use disorder (Primary Dx) 05/27/2025 Travel 05/22/2025 1:45 PM EST Office Visit [address] [phone] Doug Fay MD Severe alcohol dependence (CMS/HCC) (HCC) (Primary Dx) 05/22/2025 Travel 05/20/2025 Orders Only [facility] [address] [place] [id number] Divya Amos MD Type 2 diabetes mellitus with hyperglycemia, with long-term current use of insulin (HCC) (Primary Dx) 05/20/[address] [address] Flora Santiago FNP 05/15/2025 2:00 PM EST Office Visit [facility] [address] [place] [address] Flora Santiago FNP Type 2 diabetes mellitus with hyperglycemia, with long-term current use of insulin (HCC) (Primary Dx); Cirrhosis of liver without ascites, unspecified hepatic cirrhosis type (HCC); Cardiac murmur; Alcohol use disorder; Depressive disorder 05/15/2025 Travel 05/15/2025 Telephone [facility] AD[facility] D[facility] [address] [place] [address] Dany, Angelica 05/14/2025 Telephone [facility] [address], [place] [phone] Flora Santiago FNP Chart Prep 05/12/2025 Travel 05/08/2025 Orders Only [facility] External Provider, [facility] 05/07/2025 Telephone [facility] [address], [place] [phone] Flora Santiago FNP Call Back Request 05/04/2025 Patient Outreach [facility] [address] [place] [address] Flora Santiago FNP Transition Of Care (Tcm) (HDF scheduled and SDOH screening completed on 12/08/24 ) 04/06/2025 Refill [facility] [address] [place] [address] Flora Santiago FNP 04/03/[address] [address] Flora Santiago FNP from Last 3 Months [...] Pressure 140/86 05/29/2025 7:50 AM EST Pulse 80 05/22/2025 2:03 PM EST Temperature 36.3 C (97.3 F) 05/22/2025 2:03 PM EST Respiratory Rate 18 05/22/2025 2:03 PM EST Oxygen Saturation 99% 05/15/2025 1:54 PM EST Inhaled Oxygen Concentration - - Weight 85.3 kg (188 lb) 05/15/2025 1:54 PM EST Height 172.7 cm (5' 8 ) 05/15/2025 1:54 PM EST Body Mass Index 28.59 05/15/2025 1:54 PM EST Plan of Treatment Upcoming Encounters Date Type Department Care Team (Late st Contact Info) Description 07/13/2025 9:30 AM EST Medication Management [facility] [address] [place] [phone] Kandi Panda, RobertD [address] [place] [address] 08/21/2025 1:15 PM EST Office Visit [facility] [address] [place] [phone] Doug Fay MD [address] [place] [address] 11/27/2025 8:00 AM EDT Office Visit [facility] ADULT D[facility] [address] [place] [address] Dany, Angelica [address] [place] [address] Health Maintenance Due Date Last Done Comments CT Colonography 1965 FIT DNA/Cologuard 1965 FIT 1965 FOBT 1965 Sigmoidoscopy 1965 Eye Exam 1975 RSV Patients and Patients Aged 60 years or older (1 - Risk 50-74 years 1-dose series) 2015 Lipid Panel 03/28/2025 03/28/2024, 06/08, 07/18/2021, Additional history exists Diabetes: Hemoglobin A1C 08/15/2025 025, 11/12/2024, 09/18/2024, Additional history exists Disability Screening 09/17/2025 09/17/2024 Dental Oral Exam 11/27/2025 05/29/2025, 02/2024, 01/13/2021, Additional history exists Dental Prophylaxis 11/27/2025 05/29/2025, 0 02/04/2024, 07/11/2023, Additional history exists Depression Screening 12/08/2025 12/08/2024, 12/09/19 25 Diabetes: Foot Exam 12/08/2025 12/08/2024, Diabetes: Urine Protein Screening 12/08/2025 12/08/2024, 10/31/2023, 06/22/2023, Additional history exists Influenza Vaccine (#1) 2026 , 08/12/2018, 05/03/2017, Additional history exists Postponed from 03/09/2025 (Patient Refused) SDOH Screening 01/07/2026 01/07/2025 Colonoscopy 03/17/2026 03/17/2021, 03/17/2021 Colorectal Cancer Screening 03/17/2026 Alcohol/Substance Use Screening 05/15/2026 05/15/2025 COVID-19 Vaccine ( season) 2026 07/22/2021, 10/30/2020, 10/02/2020 Postponed from 03/09/2025 (Patient Refused) Tobacco Screening 05/29/2026 05/29/2025 Dental X-Ray: Bitewings 05/30/2026 05/29/20 25, 07/11/2023, 12/20/2022, Additional history exists Dental X-Ray: Full Mouth 08/17/2026 024, 07/11/2023, [...] 140/90 Blood Pressure 140/86(2024 7:50 AM EST) Jose Maria Orozco Hemoglobin A1c < 7 Result Component 9.7( [...] Weekly blood pressure task No Nighat Lofton CO Weekly blood pressure task Care Plan Weekly blood pressure task No Nighat Lofton CO Patient has chronic kidney disease Care Plan Patient has chronic kidney disease No Nighat Lo[place]on [place] Patient has chronic kidney disease Care Plan Patient has chronic kidney disease No Nighat Lo[place]on [place] Weekly blood pressure task Care Plan Weekly blood pressure task No Anders Jack Weekly blood pressure task Care Plan Weekly blood pressure task No Areli Jacklemo Patient has chronic kidney disease Care Plan Patient has chronic kidney disease No Anders Jack Patient has chronic kidney disease Care Plan Patient has chronic kidney disease No Anders Jack Weekly blood pressure task Care Plan Weekly blood pressure task No Indu Driscoll BACKWINDER Weekly blood pressure task Care Plan Weekly blood pressure task No Indu Driscoll, BACKWINDER Patient has chronic kidney disease Care Plan Patient has chronic kidney disease No Indu Driscoll, BACKWINDER Patient has chronic kidney disease Care Plan Patient has chronic kidney disease No Indu Driscoll, BACKWINDER Weekly blood pressure task Care Plan Weekly blood pressure task No Molly Santacruz BACKWINDER Weekly blood pressure task Care Plan Weekly blood pressure task No Molly Santacruz LPN Patient has chronic kidney disease Care Plan Patient has chronic kidney disease No Noam Molly BACKWINDER Patient has chronic kidney disease Care Plan Patient has chronic kidney disease No Noam Molly, BACKWINDER Weekly blood pressure task Care Plan Weekly blood pressure task No DanyAngelica hassan Weekly blood pressure task Care Plan Weekly blood pressure task No DanyAngelica Patient has chronic kidney disease Care Plan Patient has chronic kidney disease No Dany Angelica Patient has chronic kidney disease Care Plan Patient has chronic kidney disease No Dany Angelica Weekly blood pressure task Care Plan Weekly blood pressure task No Shahnaz Perez LPN Weekly blood pressure task Care Plan Weekly blood pressure task No Shahnaz Perez BACKWINDER Patient has chronic kidney disease Care Plan Patient has chronic kidney disease Shahnaz Prince LPN Patient has chronic kidney disease Care Plan Patient has chronic kidney disease Shahnaz Prince LPN Procedures Procedure Name Priority Date/Time Associated Diagnosis Comments PERIODIC ORAL EVALUATION - ESTABLISHED PATIENT Routine 05/29/2025 8:00 AM EST COMPREHENSIVE PERIODONTAL EVALUATION - NEW OR ESTABLISHED PATIENT Routine 05/29/2025 8:00 AM EST PROPHYLAXIS - ADULT Routine 05/29/2025 8 :00 AM EST Extruded tooth Stage 4 grade B localized periodontitis per AAP/EFP 2017 classification Dental calculus Localized gingival recession Chronic periodontitis INTRAORAL - PERIAPICAL EACH ADDITIONAL RADIOGRAPHIC IMAGE Routine 05/29/2025 8:00 AM EST Extruded tooth Stage 4 grade B localized periodontitis per AAP/EFP 2017 classification Dental calculus Localized gingival recession Chronic periodontitis INTRAORAL - PERIAPICAL FIRST RADIOGRAPHIC IMAGE Routine 05/29/2025 8:00 AM EST Extruded tooth Stage 4 grade B localized periodontitis per AAP/EFP 2017 classification Dental calculus Localized gingival recession Chronic periodontitis BITEWINGS - 4 RADIOGRAPHIC IMAGES Routine 05/29/2025 8:00 AM EST Extruded tooth Stage 4 grade B localized periodontitis per AAP/EFP 2017 classification Dental calculus Localized gingival recession Chronic periodontitis POCT GLYCATED HEMOGLOBIN, TOTAL Routine 05/15/2025 2:46 PM EST Type 2 diabetes mellitus with hyperglycemia, with long-term current use of insulin (HCC) POCT GLUCOSE Routine 05/15/2025 2:45 PM EST Type 2 diabetes mellitus with hyperglycemia, with long-term current use of insulin (HCC) DRUG MONITOR, PANEL 1, SCREEN, URINE Routine 05/08/2025 8:[address] CERVICAL SPINE WO CONTRAST Routine 05/08/2025 7:[address] HEAD WO CONTRAST Routine 05/08/2025 7 :13 AM EDT ALBUMIN, RANDOM URINE W/CREATININE Routine 12/08/2024 1:54 PM EDT Healthcare maintenance HEPATITIS PANEL, GENERAL Routine 04/29/2024 12:37 PM EDT LIPID PANEL, STANDARD Routine 03/28/2024 8:52 AM EDT PANORAMIC RADIOGRAPHIC IMAGE Routine 08/16/2023 9:00 AM EST HIV 1/2 ANTIGEN/ANTIBODY, FOURTH GENERATION W/RFL Routine 07/18/2021 9:07 AM EST HM COLONOSCOPY Routine 03/17/2021 from Last 3 Months or Most Recently Relevant to Health Maintenance Results * (ABNORMAL) POCT Hgb A1c (05/15/2025 2:46 PM EST) Pathologist [facility] [place] Hemoglobin A1C 9.7(A) 4.0 - 5.7 % QC Media Lot # [id number] Lot# Expiration Date Blood 05/15/2025 2:46 PM EST [facility] POINT OF [facility]ARE [facility] ENTER/EDIT ORDERABLES Final Result * (ABNORMAL) POCT Glucose (05/15/2025 2:45 PM EST) Pathologist [facility] [place] Glucose Blood, POC 202(A) 60 - 200 mg/dL [employer] Lot # [id number] Lot# Expiration Date Comment:random Blood Capillary blood specimen / Unknown 05/15/2025 2:45 PM EST [facility] POINT OF CARE TEST ENTER/EDIT ORDERABLES Final Result * Drug Monitoring, Panel 1, Screen, Urine (05/08/2025 8:52 AM EDT) Pathologist [facility] [place] Opiate Screen Urine Not Detected Not Detect [facility] [facility] Comment:Opiate cut-off is 30 0 ng/mL.Positive results are unconfirmed and should not be used fornon-medical purposes. Barbiturates, Urine Not Detected Not Detect [facility] Comment:Barbiturate cut-off is 200 ng/mL.Positive results are unconfirmed and should not be used fornon-medical purposes. Phencyclidine Screen Urine Not Detected Not Detect [facility] Comment:Phencyclidine cut-of f is 25 ng/mL.Positive results are unconfirmed and should not be used fornon-medical purposes. Amphetamine Screen Urine Not Detected Not Detect [facility] Comment:Amphetamine cut-off is 1000 ng/mL.Positive results are unconfirmed and should not be used fornon-medical purposes. Benzodiazepines Screen Urine Not Detected Not Detect [facility] Comment:Benzodiazepine cut-o ff is 200 ng/mL.Positive results are unconfirmed and should not be used fornon-medical purposes. Cocaine Screen Urine Not Detected Not Detect [facility] Comment:Cocaine cut-off is 3 00 ng/mL.Positive results are unconfirmed and should not be used fornon-medical purposes. Cannabinoid Screen Urine Not Detected Not Detect [facility] Comment:Cannabinoid cut-off is 50 ng/mL.Positive results are unconfirmed and should not be used fornon-medical purposes. Methadone Screen, Urine Not Detected Not Detect ng/mL [facility] Comment:Methadone cut-off is 300 ng/mL.Positive results are unconfirmed and should not be used fornon-medical purposes. FENTANYL URINE Not Detected Not Detect [facility] Comment:Fentanyl cut-off is 1 ng/mL.Positive results are unconfirmed and should not be used fornon-medical purposes. Oxycodone Urine Screen Not Detected Not Detect ng/mL [facility] Comment:Oxycodone cut-off is 100 ng/mL.Positive results are unconfirmed and should not be used fornon-medical purposes. Buprenorphine Screen Not Detected Not Detect ng/mL [facility] Comment:Buprenorphine cut-of f is 5 ng/mL.Positive results are unconfirmed and should not be used fornon-medical purposes. 05/08/2025 8:52 AM EDT 05/08/2025 8:56 AM EDT us Generic External Data Provider LAB URINE ORDERAB LES Final Result [facility] [address] [place] [address] [phone] * CT Cervical Spine w/o Contrast (05/08/2025 7:27 AM EDT) Anatomical Region Laterality Modality Spine, C-spine Computed Tomogra phy 05/08/2025 7:27 AM EDT Narrative 05/08/2025 7:29 AM EDT [place] [address] CT Scan Report Signed Patient: Steven Stanley MR#: [id number] 2 : 1965 Acct:[id number] Age/Sex: 60 / M ADM Date: 05/08/25 Loc: HO.ED Attending Dr: Ordering Physician: Suyapa Foster MD Date of Service: 05/08/25 Procedure(s): CT cervical spine wo IV con Accession Number(s): [id number] cc: Suyapa Foster MD; Flora Santiago CHILD CARE GIVER Report Number: [id number]: Total DLP = 470.57 mGy-cm Reason for Exam: fall, etoh CLINICAL HISTORY: fall, etoh CT cervical spine without contrast Comparison: CT/SR - CT CERVICAL SPINE WO IV CON - 12/15/24 22:[address]/SR - CT CERVICAL SPINE WO IV CON - 10/07/24 11:43 EDT Findings: Vertebral alignment is within normal limits. Multilevel degenerative changes are stable from prior study. No acute fractures or dislocations. Visualized intracranial contents are unremarkable. Soft tissues of the neck are normal. Lung apices are clear. IMPRESSION: No acute cervical spine findings. This document has been electronically signed by: Roney De Dios MD on 05/08/2025 07:27:39 Dictated By: Roney De Dios MD Signed By: <Electronically signed by Roney De Dios MD in OV> 05/08/25727 DD/ 6 TD/TT: 05/08/25726 Casting Cleaner: Procedure Note Donotuseinterpreter, Image - 05/08/[address] [address] [address] Scan Report Signed Patient: Debar StanleyR#: [id number] 2 : 1965Acct:[id number] Age/Sex: 60 / MADM Date: 05/08/25 Loc: HO.ED Attending Dr: Ordering Physician: Suyapa Foster MD Date of Service: 05/08/25 Procedure(s): CT cervical spine wo IV con Accession Number(s): [id number] cc: Suyapa Foster MD; VaneGustavo minale CHILD CARE GIVER Report Number: [id number]: Total DLP = 470.57 mGy-cm Reason for Exam: fall, etoh CLINICAL HISTORY: fall, etoh CT cervical spine without contrast Comparison: CT/SR - CT CERVICAL SPINE WO IV CON - 12/15/24 22:[address]/SR - CT CERVICAL SPINE WO IV CON - 10/07/24 11:43 EDT Findings: Vertebral alignment is within normal limits. Multilevel degenerative changes are stable from prior study. No acute fractures or dislocations. Visualized intracranial contents are unremarkable. Soft tissues of the neck are normal. Lung apices are clear. IMPRESSION: No acute cervical spine findings. This document has been electronically signed by: Roney De Dios MD on 05/08/2025 07:27:39 Dictated By: Roney De Dios MD Signed By: <Electronically signed by Roney De Dios MD in OV> 05/08/25727 DD/ 6 TD/TT: 05/08/25726 Casting Cleaner: [facility] External Provider IMG CT PROCEDURES Final Result * CT Head w/o Contrast (05/08/2025 7:13 AM EDT) Anatomical Region Laterality Modality Head, Neck Computed Tomogra phy 05/08/2025 7:13 AM EDT Narrative 05/08/2025 7:14 AM EDT [address] [address] [address] Scan Report Signed Patient: Steven Stanley MR#: [id number] 2 : 1965 Acct:[id number] Age/Sex: 60 / M ADM Date: 05/08/25 Loc: HO.ED Attending Dr: Ordering Physician: Suyapa Foster MD Date of Service: 05/08/25 Procedure(s): CT head/brain wo IV con Accession Number(s): [id number] cc: Suyapa Foster MD; Flora Santiago [facility] Report Number: [id number]: Total DLP = 719.47 mGy-cm Reason for Exam: etoh and fall CLINICAL HISTORY: etoh and fall CT head without contrast Comparison: CT/SR - CT HEAD/BRAIN WO IV CON - 12/15/24 22:[address]/CO/SR - CT HEAD/BRAIN WO IV CON - 10/07/24 11:43 EDT Findings: No intra-axial mass, midline shift, hydrocephalus, or acute hemorrhage. Mild periventricular white matter hypodensities are nonspecific though likely reflect changes of age-related microangiopathic etiology. The visualized paranasal sinuses and mastoid air cells are normal. The orbits are within normal limits. There is no acute fracture. IMPRESSION: No acute intracranial abnormality. This document has been electronically signed by: Roney De Dios MD on 05/08/2025 07:13:20 Dictated By: Roney De Dios MD Signed By: <Electronically signed by Roney De Dios MD in OV> 05/08/25712 DD/ 2 TD/TT: 05/08/25712 Casting Cleaner: Procedure Note Donotuseinterpreter, Image - 05/08/[address] [place] [address] [address] Scan Report Signed Patient: Robin Stanley#: [id number] 2 : 1965Acct:[id number] Age/Sex: 60 / MADM Date: 05/08/25 Loc: HO.ED Attending Dr: Ordering Physician: Suyapa Foster MD Date of Service: 05/08/25 Procedure(s): CT head/brain wo IV con Accession Number(s): [id number] cc: Suyapa Foster MD; Flora Santiago CHILD CARE GIVER Report Number: [id number]: Total DLP = 719.47 mGy-cm Reason for Exam: etoh and fall CLINICAL HISTORY: etoh and fall CT head without contrast Comparison: CT/SR - CT HEAD/BRAIN WO IV CON - 12/15/24 22:[address]/CO/SR - CT HEAD/BRAIN WO IV CON - 10/07/24 11:43 EDT Findings: No intra-axial mass, midline shift, hydrocephalus, or acute hemorrhage. Mild periventricular white matter hypodensities are nonspecific though likely reflect changes of age-related microangiopathic etiology. The visualized paranasal sinuses and mastoid air cells are normal. The orbits are within normal limits. There is no acute fracture. IMPRESSION: No acute intracranial abnormality. This document has been electronically signed by: Roney De Dios MD on 05/08/2025 07:13:20 Dictated By: Roney De Dios MD Signed By: <Electronically signed by Roney De Dios MD in OV> 05/08/25712 DD/ 2 TD/TT: 05/08/25712 Casting Cleaner: [facility] External Provider IMG CT PROCEDURES Final Result * Albumin, Random Urine W/Creatinine (12/08/2024 1:54 PM EDT) Creatinine, Urine 38.66 mg/dL [facility] Microalbumin Urine 6.0 mg/L [facility] Microalbum Creatinine Ratio Ur 15.5 <30 ug/mg cr [facility] Comment:Albumin/Creatinine R atio Reference Ranges: Normal: < 30 ug/mg creatinine Microalbuminuria: 30 - 300 ug/mg creatinineClinical Albuminuria: > 300 ug/mg creatinine Urine 12/08/2024 1:54 PM EDT 12/08/2024 4:04 PM EDT [facility] CHILD CARE GIVER LAB URINE ORDERABLES Final Re sult [facility] [address] [place] [phone] * Hepatitis Panel, General (04/29/2024 12:37 PM EDT) Hepatitis A IgM Nonreactive Nonreactive [facility] Comment:IgM antibodies to RITCHIE V not detected; does not exclude earlyacute or recovered HAV infection. ~Hepatitis B Surface Antibody REACTIVE Nonreactive [facility] Comment:REACTIVE: > 11.99 mI U/mL Hepatitis B Core Antibody Nonreactive Nonreactive [facility] Hepatitis C Antibody GRAYZONE Nonreactive [facility] Comment:Antibodies to HCV ma y or may not be present. Suggest repeatanti-HCV in 4-6 weeks and/or HCV viral load if clinicallyindicated. Hepatitis B Surface Ag Negative Negative [facility] 04/29/2024 12:3 7 PM EDT 04/29/2024 12:39 PM EDT us Generic External Data Provider LAB BLOOD ORDERAB LES Final Result [facility] [address] [place] [phone] * Lipid Panel, Standard (03/28/2024 8:52 AM EDT) Triglycerides 90 <150 mg/dL [facility] Comment:Desirable Triglyceri de: less than 150 mg/dLBorderline High Triglyceride 150-199 mg/dLHigh Triglyceride: 200-499 mg/dLVery High Triglyceride: greater than or equal to 5OO mg/dL Cholesterol 187 <200 mg/dL [facility] Comment:Desirable Cholestero l: less than 200 mg/dLBorderline High Cholesterol: 200-239 mg/dLHigh Cholesterol: greater than 239 mg/dL LDL Cholesterol Calculated 64 <100 mg/dL [facility] Comment:Desirable LDL: less than 100 mg/dLNear Optimal/Above Optimal LDL: 110- 129 mg/dLBorderline High LDL: 130-159 mg/dLHigh LDL: 160-189 mg/dLVery High LDL: greater than or equal to 190 mg/dL HDL Cholesterol 105 >40 mg/dL [facility] Comment:Desirable HDL: great er than 40 mg/dL Note: This HDL assay may give artificially low results in patients with liver disease. 03/28/2024 8:52 AM EDT 03/28/2024 8:52 AM EDT us Generic External Data Provider LAB BLOOD ORDERAB LES Final Result Performing Organization Address [facility] [address]/ZIP Co de Phone Number [facility] [address] [place] [address] [phone] * HIV 1/2 ANTIGEN/ANTIBODY,FOURTH GENERATION W/RFL [...] purpose. For additional information please refer to http://education.BlueArc.zhiwo/faq/EPA038 (This link is being provided for informational/ educational purposes only.) The performance of this assay has not been clinically validated in patients less than 2 years old. 07/18/2021 9:07 AM EST us Flora Santiago CHILD CARE GIVER LAB BLOOD ORDERABLES Final Res ult [facility] [address] [place] [address], * Hm Colonoscopy (03/17/2021) Colonoscopy Normal Normal Narrative Debi Zamora - 03/17/2021 Repeat in 5 years tubular adenoma Historical Provider MD HEALTH MAINTENANCE Final Result from Last 3 Months or Most Recently Relevant to Health Maintenance Additional Health Concerns Active Problems Noted Date [...] 06/12/2025 Patient has chronic kidney disease 06/12/2025 Insurance [facility] [address] [address] STANDARD DENTAL-[facility] MEDICAID STAND ADULT GENERIC OTHER Care Teams Sales Promoter Relationship Specialty Start Date End Date Flora Santiago FNP [address] [place] [address] PCP - General Family Medicine 05/02/21 Sherin Hall, RN [address] [place] [address] Merchandise Presentation Associate Family Medicine 07/30/23 Juan Jose Deshpande MD [address] [place] [address] Nephrology 06/13/24 Michael Glass MD [address] [place] [address] Dr 3rd Floor [place], [place] General Surgery 06/13/24 Demetrius Austin MD [address] [place], [place] Orthopaedic Surgery 06/13/24 Harry Garcia MD [address] [place], [place] Gastroenterology 06/13/24 Jovany Feliciano MD [address] 3rd [place] [address] Cardiology 06/13/24 Kandi Panda, Fredrick [address] [place] [address] Pharmacist Internal Medicine 08/18/24 Angelica Saenz [address] [place] [address] Dental Hygienist Dental Immigration Case Manager 08/20/24 Mao Palomino DDS [address] [place] [address] Dentist Dental Immigration Case Manager 08/20/24
--- OUTSIDE RECORDS SUMMARY | 2025-06-25 18:48 | XMS_ITS | Encounter Summary ---
Author Organization [employer] Address [address] [facility] 7t [place] [address] Care Team Providers Care Technical Solutions Engineer Name Role Phone Flora Santiago CIARRA Primary Care Provider Sherin Hall RN Unavailable Juan Jose Deshpande MD Unavailable [phone] Michael Glass MD Unavailable [phone] Demetrius Austin MD Unavailable Harry Garcia MD Unavailable [phone] Jovany Feliciano MD Unavailable Kandi Panda PharmD Unavailable Angelica Saenz Unavailable Mao Palomino DDS Unavailable [phone] Encounter Details Date Type Department Care Team (Late st Contact Info) Description 10/04/2022 Orders Only [facility] [address] [place], [place] [phone] Shahnaz Perez LPN Social History Tobacco Use [...] Department Care Team (Late Contact Info) Description 07/13/2025 9:30 AM EST Medication Management [facility] [address] [place] [address] Kandi Panda PharmD [address] [place] [address] 08/21/2025 1:15 PM EST Office Visit [facility] [address] [place] [address] Doug Fay MD [address] [place] [address] 11/27/2025 8:00 AM EDT Office Visit [facility] [address] [place] [address] Angelica Saenz [address] [place] [address] documented as of this encounter Visit Diagnoses Not on filedocumented in this encounter Care Teams Technical Solutions Engineer Relationship Specialty Start Date End Date Flora Santiago FNP [address] [place] [phone] PCP - General Family Medicine 05/02/21 Sherin Hall, MICHELLE [address] [place] [address] Stock Puller Family Medicine 07/30/23 Juan Jose Deshpande MD [address] [place] [address] Nephrology 06/13/24 Michael Glass MD [address] [place] [address] Dr 3rd [place] [address] General Surgery 06/13/24 Demetrius Austin MD [address] [place] [address] Orthopaedic Surgery 06/13/24 Harry Garcia MD [address] 3rd [place] [address] Gastroenterology 06/13/24 Jovany Feliciano MD [address] 3rd [place] [address] Cardiology 06/13/24 Kandi Panda PharmD [address] [place] [address] Pharmacist Internal Medicine 08/18/24 Angelica Saenz [address] [place] [address] Dental Hygienist Dental Leather Belt Shaper 08/20/24 Mao Palomino DDS [address] [place] [address] Dentist Dental Leather Belt Shaper 08/20/24 documented as of this encounter
--- OUTSIDE RECORDS SUMMARY | 2025-06-25 18:48 | XMS_ITS | Encounter Summary ---
Author Organization [employer] Address [address] [facility] 7t [place] [address] Care Team Providers Care Solar Power Installer Name Role Phone Flora Santiago Primary Care Provider Sherin Hall RN Unavailable [phone] Juan Jose Deshpande MD Unavailable [phone] Michael Glass MD Unavailable [phone] Demetrius Austin MD Unavailable Harry Garcia MD Unavailable [phone] Jovany Feliciano MD Unavailable Kandi Panda PharmD Unavailable [phone] Angelica Saenz Unavailable Mao Palomino DDS Unavailable [phone] Reason for Visit * Reason Comments Med Refill Encounter Details Date Type Department Care Team (Late st Contact Info) Description 09/10/2024 Refill [facility] [address] [place] [address] Flora Santiago FNP [address] [place], [place] [phone] Social History Tobacco Use Types Packs/Day Years [...] Description 07/13/2025 9:30 AM EST Medication Management [facility] [address] [place] [address] Kandi Panda, RobertD [address] [place] [address] 08/21/2025 1:15 PM EST Office Visit [facility] [address] [place] [phone] Doug Fay MD [address] [place] [address] 11/27/2025 8:00 AM EDT Office Visit [facility] [address] [place] [address] Angelica Saenz [address] [place] [address] documented as of this encounter Goals Goal [...] documented as of this encounter Care Teams Solar Power Installer Relationship Specialty Start Date End Date Flora Santiago FNP [address] [place] [address] PCP - General Family Medicine 05/02/21 Sherin Hall, RN [address] [place] [address] Theatrical Agent Family Medicine 07/30/23 Juan Jose Deshpande MD [address] [place] [address] Nephrology 06/13/24 Michael Glass MD [address] [place] [address] Dr [address] [place] [address] General Surgery 06/13/24 Demetrius Austin MD [address] [place] [address] Orthopaedic Surgery 06/13/24 Harry Garcia MD [address] [place] [address] Gastroenterology 06/13/24 Jovany Feliciano MD [address] [facility] [address] 3rd [place] [address] Cardiology 06/13/24 Kandi Panda PharmD [address] [place] [address] Pharmacist Internal Medicine 08/18/24 Angelica Saenz [address] [place] [address] Dental Hygienist Dental Stem Lead Former 08/20/24 Mao Palomino DDS [address] [place] [address] Dentist Dental Stem Lead Former 08/20/24 documented as of this encounter
--- OUTSIDE RECORDS SUMMARY | 2025-06-25 18:48 | XMS_ITS | Encounter Summary ---
Author Organization [employer] Address [address] [place] [address] 7t [place] [address] Care Team Providers Care Spray Foam Installer Name Role Phone Vanekeeley Flora FNP Primary Care Provider [phone] Sherin Hall RN Unavailable [phone] Juan Jose Deshpande MD Unavailable [phone] Michael Glass MD Unavailable [phone] Demetrius Austin MD Unavailable Harry Garcia MD Unavailable [phone] Jovany Feliciano MD Unavailable Kandi Panda PharmD Unavailable [phone] Angelica Saenz Unavailable Mao Palomino DDS Unavailable [phone] Reason for Referral * Consultation (Routine) - Authorized Specialty Diagnoses / Procedures Referred By Contac t Referred To Contact Pharmacy Diagnoses Type 2 diabetes mellitus with hyperglycemia, with long-term current use of insulin (HCC) Divya Amos MD [address] [place] [address] Phone: tel: fax: Referral ID Status Reason Start Date Expiration Date Visits Requested Visits Authorized [id number] Authorized Consult and Treat 05/20/2025 05/20/2026 6 6 Encounter Details Date Type Department Care Team (Late st Contact Info) Description 05/20/2025 Orders Only [facility] [address] [place], [place] [phone] Divya Amos MD [address] [place] [address] Type 2 diabetes mellitus with hyperglycemia, with long-term current use of insulin (HCC) (Primary Dx) Social History Tobacco Use Types [...] AM EST Medication Management [facility] [address] [place] [address] Kandi Panda PharmD [address] [place] [address] 08/21/2025 1:15 PM EST Office Visit [facility] [address] [place] [address] Doug Fay MD [address] [place] [address] 11/27/2025 8:00 AM EDT Office Visit [facility] [address] [place] [address] Dany, Angelica [address] [place] [address] Scheduled Referrals Name Type Priority Associated Diagnoses Orde r Schedule Referral to Pharmacy CDTM Outpatient Referral Routine Type 2 diabetes mellitus with hyperglycemia, with long-term current use of insulin (HCC) Ordered: 05/20/2025 documented as of this encounter Goals Goal [...] Care Plan Patient has chronic kidney disease Adi Basurto Weekly blood pressure task Care Plan Weekly blood pressure task No Divya Amos MD Weekly blood pressure task Care Plan Weekly blood pressure task No Divya Amos MD Patient has chronic kidney disease Care Plan Patient has chronic kidney disease Divya Quintero MD Patient has chronic kidney disease Care Plan Patient has chronic kidney disease No Divya Amos MD documented as of this encounter Visit Diagnoses Diagnosis Type 2 diabetes mellitus with hyperglycemia, with long-term current use of insulin (HCC)- Primary documented in this encounter Additional Health [...] 05/20/2025 Patient has chronic kidney disease 05/20/2025 Assessment Noted Time PHQ-9 Depression Total Score: 0 12/09/19 25 1:28 PM EDT documented as of this encounter Care Teams Spray Foam Installer Relationship Specialty Start Date End Date Flora Santiago FNP [address] [place] [address] PCP - General Family Medicine 05/02/21 Sherin Hall, MICHELLE [address] [place] [address] Lead Generation Marketing Manager Family Medicine 07/30/23 Juan Jose Deshpande MD [address] [place] [address] Nephrology 06/13/24 Michael Glass MD [address] [place] [address] Dr 3rd [place] [address] General Surgery 06/13/24 Demetrius Austin MD [address] [place] [address] Orthopaedic Surgery 06/13/24 Harry Garcia MD [address] 3rd [place] [address] Gastroenterology 06/13/24 Jovany Feliciano MD [address] 3rd [place] [address] Cardiology 06/13/24 Kandi Panda, RobertD [address] [place] [address] Pharmacist Internal Medicine 08/18/24 Angelica Saenz [address] [place] [address] Dental Hygienist Dental Trust Administrative Assistant 08/20/24 Mao Palomino DDS [address] [place] [address] Dentist Dental Trust Administrative Assistant 08/20/24 documented as of this encounter
--- OUTSIDE RECORDS SUMMARY | 2025-06-25 18:48 | XMS_ITS | Encounter Summary ---
Author Organization [employer] Address [address] [place] [address] 7t [place] [address] Care Team Providers Care Director Organizational Name Role Phone Gustavo Santiagosharon LAFLEUR Primary Care Provider Sherin Hall RN Unavailable [phone] Juan Jose Deshpande MD Unavailable [phone] Michael Glass MD Unavailable [phone] Demetrius Austin MD Unavailable Harry Garcia MD Unavailable [phone] Jovany Feliciano MD Unavailable Kandi Panda PharmD Unavailable [phone] Angelica Saenz Unavailable Mao Palomino DDS Unavailable [phone] Encounter Details Date Type Department Care Team (Latest Contact Info) Description 01/24/2019 Abstract [facility] CONVERSIONS Dental, Provider, DDS Social [...] 9:30 AM EST Medication Management [facility] MEDICINE [address] [place] [address] Kandi Panda, PharmD [address] [place] [address] 08/21/2025 1:15 PM EST Office Visit [facility] MEDICINE [address] [place] [address] Doug Fay MD [address] [place] [address] 11/27/2025 8:00 AM EDT Office Visit [facility] ADULT DENTAL [address] [place] [address] Dany, Angelica [address] [place] [address] documented as of this encounter Visit Diagnoses Not on filedocumented in this encounter Care Teams Director Organizational Relationship Specialty Start Date End Date Flora Santiago FNP [address] [place] [address] PCP - General Family Medicine 05/02/21 Sherin Hall, RN [address] [place] [address] Gum Rolling Machine Tender Family Medicine 07/30/23 Juan Jose Deshpande MD [address] [place] [address] Nephrology 06/13/24 Michael Glass MD [address] [place] [address] Dr [address] [place] [address] General Surgery 06/13/24 Demetrius Austin MD [address] [place] [address] Orthopaedic Surgery 06/13/24 Harry Garcia MD [address] [place] [address] Gastroenterology 06/13/24 Jovany Feliciano MD [address] 3rd [place] [address] Cardiology 06/13/24 Kandi Panda PharmD [address] [place] [address] Pharmacist Internal Medicine 08/18/24 Angelica Saenz [address] [place] [address] Dental Hygienist Dental Safety Supervisor 08/20/24 Mao Palomino DDS [address] [place] [address] Dentist Dental Safety Supervisor 08/20/24 documented as of this encounter
--- OUTSIDE RECORDS SUMMARY | 2025-06-25 18:48 | XMS_ITS | Encounter Summary ---
Author Organization [employer] Address [address] [facility] 7t [place] [address] Care Team Providers Care Rn Supplemental Name Role Phone Flora Santiago PELT GRADER Primary Care Provider [phone] Sherin Hall RN Unavailable Juan Jose Deshpande MD Unavailable [phone] Michael Glass MD Unavailable [phone] Demetrius Austin MD Unavailable Harry Garcia MD Unavailable [phone] Jovany Feliciano MD Unavailable [phone] Kandi Panda PharmD Unavailable Angelica Saenz Unavailable Mao Palomino DDS Unavailable [phone] Encounter Details Date Type Department Care Team (Late st Contact Info) Description 07/14/[address] [facility] MED & PEDS [address] [place], [place] [id number] Shahnaz Perez LPN Social History Tobacco Use [...] Description 07/13/2025 9:30 AM EST Medication Management [facility] MEDICINE [address] [place] [address] Kandi Panda PharmD [address] [place] [address] 08/21/2025 1:15 PM EST Office Visit [facility] MEDICINE [address] [place] [address] Doug Fay MD [address] [place] [address] 11/27/2025 8:00 AM EDT Office Visit [facility] ADULT DENTAL [address] [place] [address] Angelica Saenz [address] [place] [address] documented as of this encounter Visit Diagnoses Not on filedocumented in this encounter Care Teams Rn Supplemental Relationship Specialty Start Date End Date Flora Santiago FNP [address] [place] [address] PCP - General Family Medicine 05/02/21 Sherin Hall, RN [address] [place] [address] Boiler Service Technician Family Medicine 07/30/23 Juan Jose Deshpande MD [address] [place] [address] Nephrology 06/13/24 Michael Glass MD [address] [place] [address] Dr 3rd [place] [address] General Surgery 06/13/24 Demetrius Austin MD [address] [place] [address] Orthopaedic Surgery 06/13/24 Harry Garcia MD [address] [place] [address] Gastroenterology 06/13/24 Jovany Feliciano MD [address] [place] [address] Cardiology 06/13/24 Kandi Panda, Fredrick [address] [place] [address] Pharmacist Internal Medicine 08/18/24 Angelica Saenz [address] [place] [address] Dental Hygienist Dental Senior Sustainability Advisor 08/20/24 Mao Palomino DDS [address] [place] [address] Dentist Dental Senior Sustainability Advisor 08/20/24 documented as of this encounter
--- OUTSIDE RECORDS SUMMARY | 2025-06-25 18:48 | XMS_ITS | Encounter Summary ---
Author Organization [employer] Address [address] [facility] 7t [place] [address] Care Team Providers Care Customer Service Teller Name Role Phone Flora Santiago Primary Care Provider Sherin Hall RN Unavailable [phone] Juan Jose Deshpande MD Unavailable Michael Glass MD Unavailable [phone] Demetrius Austin MD Unavailable Harry Garcia MD Unavailable Jovany Feliciano MD Unavailable Kandi Panda PharmD Unavailable [phone] Angelica Saenz Unavailable Mao Palomino DDS Unavailable [phone] Encounter Details Date Type Department Care Team (Late st Contact Info) Description 11/12/2024 Orders Only [facility] MED & PEDS [address] [place], [place] [phone] Flora Santiago FNP [address] [place] [address] Generalized pruritus Social History Tobacco Use Types [...] Description 07/13/2025 9:30 AM EST Medication Management [facility] MEDICINE [address] [place] [address] Kandi Panda, RobertD [address] [place] [address] 08/21/2025 1:15 PM EST Office Visit [facility] MEDICINE [address] [place] [address] Doug Fay MD [address] [place] [address] 11/27/2025 8:00 AM EDT Office Visit [facility] ADULT DENTAL [address] [place] [address] Angelica Saenz [address] [place] [address] documented as of this encounter Goals Goal [...] documented as of this encounter Care Teams Customer Service Teller Relationship Specialty Start Date End Date Flora Santiago FNP [address] [place] [address] PCP - General Family Medicine 05/02/21 Sherin Hall, RN [address] [place] [address] Frame Hand Family Medicine 07/30/23 Juan Jose Deshpande MD [address] [place] [address] Nephrology 06/13/24 Michael Glass MD [address] [place] [address] Dr [address] [place] [address] General Surgery 06/13/24 Demetrius Austin MD [address] [place] [address] Orthopaedic Surgery 06/13/24 Harry Garcia MD [address] [place] [address] Gastroenterology 06/13/24 Jovany Feliciano MD [address] 3rd [place] [address] Cardiology 06/13/24 Kandi Panda PharmD [address] [place] [address] Pharmacist Internal Medicine 08/18/24 Angelica Saenz [address] [place] [address] Dental Hygienist Dental Benzene Still Utility Operator 08/20/24 Mao Palomino DDS [address] [place] [address] Dentist Dental Benzene Still Utility Operator 08/20/24 documented as of this encounter
--- OUTSIDE RECORDS SUMMARY | 2025-06-25 18:48 | XMS_ITS | Encounter Summary ---
Author Organization [employer] Address [address] [facility] 7t [place] [address] Care Team Providers Care Direct Chill Casting Operator Name Role Phone Flora Santiago Primary Care Provider Sherin Hall RN Unavailable [phone] Juan Jose Deshpande MD Unavailable [phone] Michael Glass MD Unavailable [phone] Demetrius Austin MD Unavailable Harry Garcia MD Unavailable [phone] Jovany Feliciano MD Unavailable Kandi Panda PharmD Unavailable Angelica Saenz Unavailable Mao Palomino DDS Unavailable [phone] Encounter Details Date Type Department Care Team (Late st Contact Info) Description 02/15/2023 Telephone [facility] MEDICINE [address] [place] [address] Flora Santiago FNP [address] [place], [place] [phone] Social History Tobacco Use Types Packs/Day Years [...] call from sarah. Please contact pt at [phone] ([place]icaraguan) documented in this encounter Plan of Treatment Upcoming Encounters Date Type Department Care Team (Late st Contact Info) Description 07/13/2025 9:30 AM EST Medication Management [facility] MEDICINE [address] [place] [address] Kandi Panda PharmD [address] [place] [address] 08/21/2025 1:15 PM EST Office Visit [facility] MEDICINE [address] [place] [address] Doug Fay MD [address] [place] [address] 11/27/2025 8:00 AM EDT Office Visit [facility] ADULT DENTAL [address] [place] [address] Dany Angelica [address] [place] [address] documented as of this encounter Visit Diagnoses Not on filedocumented in this encounter Care Teams Direct Chill Casting Operator Relationship Specialty Start Date End Date Flora Santiago FNP [address] [place] [phone] PCP - General Family Medicine 05/02/21 Sherin Hall, RN [address] [place] [address] Care Transitions Nurse Family Medicine 07/30/23 Juan Jose Deshpande MD [address] [place] [address] Nephrology 06/13/24 Michael Glass MD [address] 3rd [place] [address] General Surgery 06/13/24 Demetrius Austin MD [address] [place] [address] Orthopaedic Surgery 06/13/24 Harry Garcia MD [address] [place] [address] Gastroenterology 06/13/24 Jovany Feliciano MD [address] [place] [address] Cardiology 06/13/24 Kandi Panda PharmD [address] [place] [address] Pharmacist Internal Medicine 08/18/24 Angelica Saenz [address] [place] [address] Dental Hygienist Dental Heat Set Operator 08/20/24 Mao Palomino DDS [address] [place] [address] Dentist Dental Heat Set Operator 08/20/24 documented as of this encounter
== END 2025-06-25 14:55 | disposition home or self-care (01) ==
LOC: HO.HKA 14:39
PROVIDERS: Visit Provider Internal Medicine Hypertension Specialist
DX: N18.31 Chronic kidney disease, stage 3a (principal)
CPT/HCPCS: 99214

== ENCOUNTER → 2025-06-25 14:39 | Outpatient (BNVA) | payer MEDICARE, OTHER, SELFPAY | PROVIDERS: Visit Provider Internal Medicine Hypertension Specialist | DX: I12.9 Hypertensive chronic kidney disease with stage 1 through stage 4 chronic kidney disease, or unspecified chronic kidney disease (principal); E11.22 Type 2 diabetes mellitus with diabetic chronic kidney disease; N18.31 Chronic kidney disease, stage 3a; Z72.0 Tobacco use; Z79.4 Long term (current) use of insulin; Z79.84 Long term (current) use of oral hypoglycemic drugs | CPT/HCPCS: 99212 ==